=== PATIENT | female | born 1955 | race American Indian/Alaskan Native ===

== ENCOUNTER 2018-01-27 15:56 | Inpatient (IN) | payer OTHER ==
[~2018-01-27] VITALS: Ht 160 cm; Wt 83.3 kg
[~2018-01-27 15:56] MED LIST: ALLEGRA ALLERG180 MG PO; ALLEGRA60 MG PO; ASPIRIN EC81 MG PO; BACTRIM DS TAB1 EACH PO; BLOOD GLUCOSE1 EAC1 MISC; CYCLOBENZAPRINE10 MG PO; GUAIATUSSIN AC10 ML PO; IMODIUM A-D2 MG PO; INSULIN SYRING1 EA10 MISC; LANTUS100 UNITS/ SUB-Q; LIPITOR20 MG PO; METFORMIN HCL500 MG PO; NAPROSYN500 MG PO; NORCO 5-325 TA1 EACH PO; NORCO 7.5-3251 EACH PO; PEPCID20 MG PO; PROVENTIL HFA6.7 GM INH; SURESTEP PRO1 EA VI; TRAMADOL HCL50 MG PO; ULTRAM50 MG PO; VITAMIN D400 UNI2 PO; ZITHROMAX500 MG PO
[2018-01-27] MEDS ORDERED: LANTUS100 UNITS/ SUB-Q (16:17)
--- NOTE | 2018-01-27 19:35 | NUR ---
PT ARRIVED TO FLOOR VIA STRETCHER, SHE WAS TUCKED IN BY DAY MARY JANE.
--- NOTE | 2018-01-27 20:34 | NUR ---
ENTERED ROOM TO ASSESS PT, SHE DENIES PAIN AT THIS TIME. SHE HAS FAMILY IN THE ROOM. SHE STATES SHE IS HUNGRY, GAVE HER SF PUDDING AND ORDERED A SANDWICH BOX. DR SHEA ENTERED THE ROOM AND IS CHANGING THE DRESSING ON HER FOOT AT THIS TIME.
--- NOTE | 2018-01-27 22:11 | NUR ---
ADMINISTERED EVENING MEDICATIONS. PT HAS FAMILY IN THE ROOM WITH HER AT THIS TIME AND DENIES FURTHER NEEDS.
--- NOTE | 2018-01-27 22:32 | NUR ---
PT REQUESTED A SLEEP AID, CALLED DR CHAPPELL AND HE SAID HE WILL PLACE AN ORDER.
--- NOTE | 2018-01-27 22:55 | NUR ---
ADMINISTERED BENADRYL AND TYLENOL. PT COMPLAINED THAT HER RT FOOT HURT AND SHE FELT THE DRESSING WAS ON TOO TIGHT. TOOK ONE OF THE OUTER COBAN LAYERS OFF CAREFUL NOT TO AFFECT THE GAUZE DRESSING UNDERNEATH AND PUT IT BACK ON LOOSLY. SHE STATES THAT IT FEELS A LITTLE BETTER NOW. PT DENIES FURTHER NEEDS.
--- NOTE | 2018-01-28 00:10 | NUR ---
PT IS RESTING WITH EYES CLOSED, RESPIRATIONS ARE EVEN AND NONLABORED. CALL LIGHT IS WITHIN REACH. PT'S FAMILY MEMBER LEFT FOR A BIT AND WILL RETURN SOON.
--- NOTE | 2018-01-28 02:10 | NUR ---
PT IS RESTING WITH EYES CLOSED, RESPIRATIONS ARE EVEN AND NONLABORED. CALL LIGHT IS WITHIN REACH.
--- NOTE | 2018-01-28 04:06 | NUR ---
PT IS RESTING WITH EYES CLOSED, RESPIRATIONS ARE EVEN AND NONLABORED. CALL LIGHT IS WITHIN REACH.
--- NOTE | 2018-01-28 05:06 | NUR ---
PT WAS ADMITTED LAST NIGHT JUST AFTER SHIFT CHANGE. SHE HAS HAS MANY VISITORS THROUGH THE EVENING AND 1-2 FAMILY MEMBERS STAYED WITH HER THROUGH THE NIGHT. HE REQUESTED SOMETHING TO HELP HER SLEEP AND WAS GIVEN BENADRYL. SHE HAD TYLENOL FOR PAIN IN HER RT FOOT AFTER DR MENDOZA CHANGED THE DRESSING ON A DIABETIC FOOT ULCER ON THE BOTTOM OF HER FOOT. SHE REQUIRED 0.5 LNC THROUGH THE NIGHT. SHE IS ON TELE #8 AND HR IS IN NSR. SHE IS ON AN ADA DIET WITH A 1500 ML FLUID RESTRICTION. SHE WILL NEED A POST OP SHOE FOR AMBULATION TODAY.
--- NOTE | 2018-01-28 06:29 | NUR ---
PT IS RESTING WITH EYES CLOSED, RESPIRATIONS ARE EVEN AND NONLABORED ON RA.
--- NOTE | 2018-01-28 07:20 | NUR ---
REPORT RC'D FROM NURSING CENTER TUTOR NURSE. PT RESTING IN BED COMFORTABLY WITH EYES CLOSED, RESPIRATIONS EVEN AND UNLABORED. FAMILY MEMBERS AT BEDSIDE
--- NOTE | 2018-01-28 08:00 | NUR ---
PT C/O OF RIGHT FOOT PAIN, RATING 5/10, REQUESTING TYLENOL, MEDICATION GIVEN, WILL CONTINUE TO ASSESS. LEFT HAND IV SALINE LOCKED, FLUSHED WELL, SITE WNL, PT ANXIOUS WHEN FLUSHING BUT CAMLS WITH VERBAL FEEDBACK. LAST FSBS 152. PT C/O OF SOB, EXPIRATORY WHEEZE NOTED IN BILATERALL UPPER LOBES, BILATERAL LOWER LOBES NOTED TO BE COURSE, 1L O2 VIA NC, PT REPOSITIONED, ADVISED PT FOLLOW UP WITH DR. CHAPPELL FOR RECOMMENDATIONS. WILL CONTINUE TO MONITOR.
--- NOTE | 2018-01-28 09:00 | NUR ---
PT C/O OF NAUSEA, PRN ZOFRAN TO BE GIVEN. PT C/O OF WHEEZING, INFORMED PT ORDER FOR RT OBTAINED, DUO NEB TO BE GIVEN, PT VERBALIZED UNDERSTADING AND WAS AGREEABLE. WILL CONTINEUT O MONITOR.
--- NOTE | 2018-01-28 12:10 | NUR ---
PT REQUESTING MEDICATION FOR ANXIETY OR PAIN. DISSCUSSION WITH PT REGARDING HOME CARE MEASURES FOR RIGHT FOOT ULCER. PT STATES SHE TAKES IBUPROFEN, TYLENOL, AND USES ICE. DISSCUSSED IF PT IS HAVING FOOT PAIN OR ANXIETY. PT STATES SHE IS MORE ANXIOUS THAN IN PAIN. PT STATES SHE IS OVERWHELMED BY RECENT LOSS OF FAMILY MEMBERS, CURRENT ILLNESS, AND DX. PT BEGAN TO CRY AND STATES SHE FEELS GUILT OVER PAST DRUG USE, NOT TAKING BETER CARE OF HERSELF, AND IS WORRIED SHE WILL YOUNG DUE TO HER LIFE CHOICES. PT EASILY CALMED WITH VERBAL REASSURANCE. DISSCUSSED ACUTE AXIETY WITH DR. CHAPPELL, WILL AWAIT ORDERS. PT WILL REMAIN NPO AT THIS TIME FOR IMAGING. FSBS 152, INSULIN HELD AT THIS TIME UNTIL PT IS ABLE TO EAT.
--- NOTE | 2018-01-28 12:50 | NUR ---
PT ASSESSED FOR ANXIETY AND APPEARS RESTLESS, EMOTIONAL, AND STATES SHE IS FEELING OVERWHELMED BY HOSPITALIZATION. 0.5 MG OF ATIVAN GIVEN. NEW 20G IV STARTED IN LAC, TOLERATED WELL. PT TO HAVE MRI, CONSENT FILLED OUT, SIGNED, AND FAXED. RECENT LAB RESULTS GIVEN TO TECHNICAL ADMINISTRATIVE ASSISTANT. PT OFF UNIT AT THIS TIME FOR IMAGING.
--- NOTE | 2018-01-28 14:30 | NUR ---
P/C TO [facility]'S OFFICE REGARDING RIGHT FOOT MRI. SPOKE WITH MOTOR ANALYST ANGEL, INFORMED ANGEL OF UNSUCCESSFUL MRI DUE TO PT BEING UNABLE TO TO FOLLOW COMMANDS, MOVEMENTS, AND DROWSINESS. ANGEL STATES SHE WILL INFORM DR. SHEA REGARDING RESULTS, WILL AWAIT ORDERS.
--- NOTE | 2018-01-28 15:00 | NUR ---
PT ASSISTED TO RESTROOM. DOUGHNUTS AND ORANGE JUICE FOUND ON BEDSIDE TABLE. INFORMED PT THAT SHE IS ON AN ADA DIET WITH A 1600 ML FLUID RESTRICTION. ADVISED PT OF SUGAR INTAKE AND FLUID INTAKE WHILE IN HOSPITAL, ASKED PT TO AVOID OUTSIDE FOOD AT THIS TIME. FOOD AND FLUID REMOVED AND GIVEN TO FAMILY MEMBER. PT AND FAMILY MEMBER VERNALIZED AN UNDERSTANDING AND WERE AGREEABLE.
--- NOTE | 2018-01-28 17:39 | NUR ---
PT RESTING COMFORTABLY IN BED WITH EYES CLOSED, NO ACUTE DISTRESS NOTED, RESPIRATIONS EVEN AND UNLABORED. FAMILY AT BEDSIDE.
--- NOTE | 2018-01-28 18:38 | NUR ---
PT ON RA, LUNGS CLEAR IN UPPERS, BASES COURSE BUT IMPROVING, SOB, PRN DUO NEBS ADDED. PT ON TELE #8, SR, ECHO COMPLETED TODAY. 20G IV LAC INSERTED TODAY, SALINE LOCKED, WNL. IV LASIX X 3 GIVEN TODAY, URINE DILUTE, QS. PT SBA TO RESTROOM. RIGHT FOOT ULCER COVERED, DRESSING C/D/I, MRI UNSUCCESSFUL, DR. SHEA'S OFFICE NOTIFIED OF UNSUCCESSFUL MRI. PT GIVEN 1 MG ATIVAN FOR ACUTE ANXIETY, MUCH IMPROVED. PT ON ADA DIET WITH 1600 FLUID RESTRICTION, PT NON COMPLIANT WITH DIET, PT AND FAMILY AWARE TO NOT BRING IN OUTSIDE FOOD.
--- NOTE | 2018-01-28 19:05 | NUR ---
IN ROOM FOR REPORT, PT IS SLEEPING AND IS AT BEDSIDE. CALL LIGHT IS WITHIN REACH.
[2018-01-28] MEDS ORDERED: IBUPROFEN400 MG PO (19:27)
[2018-01-28] MEDS ORDERED: TYLENOL325 MG PO (19:28)
[2018-01-28] MEDS ORDERED: PROAIR HFA8.5 GM INH (19:29)
[2018-01-28] MEDS ORDERED: CIPRO500 MG PO (19:29)
--- NOTE | 2018-01-28 20:25 | EKG ---
[facility] [address] [facility] [place] [address] Signed Normal sinus rhythm Left axis deviation Anteroseptal infarct , age undetermined Abnormal ECG When compared with ECG of 20-AUG-2016 06:02, Inverted T waves have replaced nonspecific T wave abnormality in Lateral leads Confirmed by GISELLE CHAPPELL MD ([id number]) on 01/28/2018 8:25:27 PM Electronically Signed By: GISELLE CHAPPELL MD 01/28/18 2025 PATIENT NAME: JOSE G COX Electrocardiogram DATE OF : 59 PHYSICIAN: GISELLE CHAPPELL MD REPORT #: [id number] REPORT IS CONFIDENTIAL AND NOT TO BE RELEASED WITHOUT AUTHORIZATION
--- NOTE | 2018-01-28 21:42 | NUR ---
ASSESSED PT AND ADMINISTERED EVENING MEDICATIONS. PT STATES SHE IS ANXIOUS AND IS UPSET ABOUT A PERSONAL ISSUE. SHE WAS GIVEN 0.5MG ATIVAN AND TYLENOL FOR PAIN. SHE ALSO REQUESTED A SLEEP AID, SHE WAS GIVEN BENADRYL. SHE HAS CHICKEN NOODLE SOUP AT THE BEDSIDE AND DENIES NEEDS. CALL LIGHT IS WITHIN REACH.
--- NOTE | 2018-01-28 22:11 | NUR ---
PT CALLED TO USE RESTROOM, HER VISITORS ARE LEAVING AT THIS TIME. CALL LIGHT IS WITHIN REACH.
--- NOTE | 2018-01-29 00:14 | NUR ---
PT IS RESTING WITH EYES CLOSED, RESPIRATIONS ARE EVEN AND NONLABORED. CALL LIGHT IS WITHIN REACH.
--- NOTE | 2018-01-29 00:43 | NUR ---
HELPED PT TO RESTROOM AND BACK TO BED. SHE DENIES FURTHER NEEDS AT THIS TIME.
--- NOTE | 2018-01-29 02:09 | NUR ---
PT IS RESTING WITH EYES CLOSED, RESPIRATIONS ARE EVEN AND NONLABORED. CALL LIGHT IS WITHIN REACH.
--- NOTE | 2018-01-29 02:28 | NUR ---
CHANGED PT'S ATTENDS, SHE COMPLAINED THAT ROLLING CAUSED HER PAIN TO INCREASE. APPLIED ASPERCREME AND REPOSITIONED HER IN BED. SHE DENIES FURTHER NEEDS AT THIS TIME.
--- NOTE | 2018-01-29 03:11 | NUR ---
PT IS RESTING WITH EYES CLOSED, RESPIRATIONS ARE EVEN AND NONLABORED. CALL LIGHT IS WITHIN REACH.
--- NOTE | 2018-01-29 04:58 | NUR ---
PT IS RESTING WITH EYES CLOSED, RESPIRATIONS ARE EVEN AND NONLABORED. CALL LIGHT IS WITHIN REACH.
--- NOTE | 2018-01-29 05:11 | NUR ---
PT AMBULATES SBA WITH FWW, HER IV IS SL AND FLUSHES WELL. SHE RECEIVES LASIX BID. SHE DID NOT REQUIRE OXYGEN THROUGH THE NIGHT.ACCUCHECK AT BEDTIME WAS 129 REQUIRING NO INSULIN. SHE IS ON AN ADA DIET WITH A 1500 ML FLUID RESTRICTION. PT REQUIRED 0.5MG OF IV ATIVAN FOR ANXIETY AT 2118 WELL BENADRYL FOR SLEEP. RT FOOT DRESSING IS CDI.
--- NOTE | 2018-01-29 06:46 | NUR ---
HELPED PT TO THE RESTROOM AND SHE WAS GOING TO THE SCALE SHE BECAME DIZZY. THE STAFF WERE ABLE TO HOLD HER UP UNTIL SHE FELT BETTER. SHE THEN STEPPED ONTO THE SCALE AND WAS HELPED BACK TO BED. PT DENIES FURTHER NEEDS AT THIS TIME. CALL LIGHT IS WITHIN REACH.
--- NOTE | 2018-01-29 07:20 | NUR ---
REPORT RC'D FROM BEHAVIORAL SCIENCES DEPARTMENT CHAIR NURSE. PT RESTING IN BED COMFORTABLY WITH EYES CLOSED. RESPIRATIONS EVEN AND UNLABORED. NO ACUE DISTRESS NOTED.
--- NOTE | 2018-01-29 07:50 | NUR ---
PT C/O OF SOB, REPOSITIONED, HOB ELEVATED, AND LUNGS ASSESSED. EXPIRATORY WHEEZE NOTED IN BILATERAL UPPER LOBES, COURSE LUNG SOUNDS NOTED IN BILATERAL LOWER LOBES. PRN DUO NEB TO BE GIVEN. WILL CONTINUE TO MONITOR AND REASSESS.
--- NOTE | 2018-01-29 08:15 | NUR ---
DUO NEB TREATMENT GIVEN, PT STATES BREATHING IMPROVED, DENIES SOB AT THIS TIME. NO EXPIRATORY WHEEZE NOTED DURING ASCULTATION. PT A&O X3, PLEASANT, DENIES ACUTE ANXIETY. RESPIRATION RATE 16/MIN, EVEN AND UNLABORDED. LAC IV SITE SALINE LOCKED, PATENT. RIGHT FOOT DRESSING C/D/I, DENIES PAIN. FAMILY MEMBERS AT BEDSIDE. PT STATES, "I AM FEELING MUCH BETTER TODAY."
[2018-01-29] MEDS ORDERED: AUGMENTIN 875-1 EACH PO (09:56)
--- NOTE | 2018-01-29 09:57 | NUR ---
MED REC COMPLETE
--- NOTE | 2018-01-29 10:28 | NUR ---
DR SHEA CALLED BACK AND STATED TO FOLLOW UP WITH DALILA TOMORROW AND KEEP HER DRESSING CLEAN AND DRY. NO FOLLOW UP APPOINTMENT SCHEDULED AT THIS TIME WITH DR. SHEA.
--- NOTE | 2018-01-29 11:30 | NUR ---
PT RESTING IN BED COMFORTABLY, WAKES EASILY, NO ACUTE DISTRESS NOTED, NO COMPLAINTS AT THIS TIME. PT FSBS 196, INSULIN TO BE GIVEN. PT REPOSITIONED FOR COMFORT. CALL LIGHT WITHIN REACH. LUNCH AT BEDSIDE.
[2018-01-29] MEDS ORDERED: DOXYCYCLINE HY100 MG PO (12:41)
[2018-01-29] MEDS ORDERED: CARVEDILOL12.5 MG PO (12:41)
[2018-01-29] MEDS ORDERED: TORSEMIDE20 MG PO (12:42)
[2018-01-29] MEDS ORDERED: LANTUS100 UNITS/ SUB-Q (12:42)
--- NOTE | 2018-01-29 12:45 | NUR ---
PHONE CALL TO [facility], SPOKE WITH SCRIPT WORKER LAZARA RYDER SCHEDULE TO FOLLOW UP ON 01/30/18 @1PM. TRANSPORTATION SCHEDULED WITH [facility]. INFORMED PT OF APPT TIME AND SCHEDULED TRANSPORTTION, PT VERBALIZED AN UNDERSTANDING AND WAS AGREEABLE.
--- NOTE | 2018-01-29 13:29 | NUR ---
CONSULT FOR NUTRITION TRIGGERED FROM FOOT WOUND. PATIENT IS BEING DISCHARGED TODAY. SHE RECEIVES CARE AT [facility]. NO NUTRITION INTERVENTION DONE AT THIS TIME SINCE PATIENT GOING HOME.
--- NOTE | 2018-01-29 15:16 | NUR ---
Certified Heart Failure Nurse Notes: Date of echocardiogram - Results pending at time of patient interview Social support system: lives with spouse , who has health problems that patient assists with. Grandson, son. Reports that she is also caregiver to son with CP. Patient tearful during this education discussion and repeats that she feels very tired. Weight monitoring: Medline Scales given for home use and instructed on daily weight monitoring with teach back. Symptom management: Specific written recommendations to follow-up for ongoing management, and to address changes in weight or symptoms Transportation mode: patient states she does not have transportation Diet: since her health has been poor she relies on others. [employer] delivered meals . She does not buy table salt. Friends do bring in [employer] and Supers[employer] $1 meal for her. Instructed on reason to limit salt and hidden salt Smoking and substance abuse cessation: Encouraged patient to seek professional help and use community resources. She states she is very private and doesn't feel comfortable having others know what is going on. Advanced directive:not addressed at this initial visit Self-Management Motivation: she is concerned about her family and grandson Teaching materials given today: [facility] with Heart Failure book, Low Sodium Shopping list, Daily weight and symptom monitoring log, Enmotusline digital floor scales
--- NOTE | 2018-01-29 16:09 | NUR ---
PATIENT DISHCARGED AT 1415. FAMILY IN A MURO DUE TO LIMITED RIDE, CARE RIDE OFFERED, BUT DECLINED. PATIENT DECLINED TO CHANGE TO CLOTHING, NO CLOTHING AVAILBLE, PATIENT LEFT IN HOSPITAL GOWN. PATIENT UNWILLING TO WAIT FOR ADDITIONAL DISCHARGE INSTRUCTIONS, SCALE PROVIDED AT HOSPITAL FRONT DOOR PATIENT LEFT. RC'D P/C FROM PT'S SON STATING IV SITE STILL IN PLACE, OFFERED TO HAVE MEDICAL STAFF COME TO HOME ABD REMOVE, DECLINED, SON STATES "WE TOOK IT OUT." ADVISED TO KEEP FOLLOW UP APPT WITH PCP FOR 01/30/18 @1PM. WILL REQUEST RECORDS OF VISIT TO CONFIRM REMOVAL.
--- NOTE | 2018-01-30 17:18 | NUR ---
HEART FAILURE FOLLOW UP CALL #1- NO ANSWER. WENT DIRECTLY TO [facility]. LEWIS FOR PATIENT THAT I WILL ATTEMPT TO CALL HER AGAIN ON SATURDAY.
== END 2018-01-29 14:15 | disposition home or self-care (01) | DRG 292 ==
LOC: ED 15:56 → MS 18:37
PROVIDERS: ADMIT Internal Medicine
DX: I11.0 Hypertensive heart disease with heart failure (principal); F15.20 Other stimulant dependence, uncomplicated; I50.31 Acute diastolic (congestive) heart failure; E11.621 Type 2 diabetes mellitus with foot ulcer; L97.519 Non-pressure chronic ulcer of other part of right foot with unspecified severity; Z79.4 Long term (current) use of insulin; Z86.73 Personal history of transient ischemic attack (TIA), and cerebral infarction without residual deficits; F17.210 Nicotine dependence, cigarettes, uncomplicated; I25.10 Atherosclerotic heart disease of native coronary artery without angina pectoris; E11.40 Type 2 diabetes mellitus with diabetic neuropathy, unspecified
CPT/HCPCS: 36415; 71045; 73630; 73721; 80048; 80053; 83036; 83605; 83880; 84484; 85025; 85379; 85610; 93005; 93010; 93306; 94640; 94667; 94668; 96374; 96375; 99285; J1650; J1815; J2060; J2405

== ENCOUNTER 2018-02-10 03:42 | Emergency (ER) | payer OTHER ==
[~2018-02-10] VITALS: Ht 160 cm; Wt 82.5 kg
[~2018-02-10 03:42] MED LIST changes: +AUGMENTIN 875-1 EACH PO; +CARVEDILOL12.5 MG PO; +CIPRO500 MG PO; +DOXYCYCLINE HY100 MG PO; +IBUPROFEN400 MG PO; +PROAIR HFA8.5 GM INH; +TORSEMIDE20 MG PO; +TYLENOL325 MG PO; +XANAX0.25 MG PO
--- NOTE | 2018-02-10 11:45 | EKG ---
[facility] [address] [facility] [place] [address] Signed Normal sinus rhythm Left axis deviation Septal infarct (cited on or before 27-JAN-2018) T wave abnormality, consider lateral ischemia Abnormal ECG When compared with ECG of 31-JAN-2018 09:58, No significant change was found Confirmed by GISELLE CHAPPELL MD ([id number]) on 02/10/2018 11:45:23 AM Electronically Signed By: GISELLE CHAPPELL MD 02/10/18 1145 PATIENT NAME: JOSE G COX Electrocardiogram DATE OF : 59 PHYSICIAN: GISELLE CHAPPELL MD REPORT #: [id number] REPORT IS CONFIDENTIAL AND NOT TO BE RELEASED WITHOUT AUTHORIZATION
== END 2018-02-10 05:02 | disposition home or self-care (01) ==
LOC: ED 03:42
DX: F13.239 Sedative, hypnotic or anxiolytic dependence with withdrawal, unspecified (principal); G47.00 Insomnia, unspecified; E11.40 Type 2 diabetes mellitus with diabetic neuropathy, unspecified; Z87.891 Personal history of nicotine dependence; Z86.73 Personal history of transient ischemic attack (TIA), and cerebral infarction without residual deficits; Z88.8 Allergy status to other drugs, medicaments and biological substances; Z79.82 Long term (current) use of aspirin; Z79.4 Long term (current) use of insulin
CPT/HCPCS: 93005; 93010; 99283

== ENCOUNTER 2018-03-08 21:50 | Observation (INO) | payer OTHER ==
[~2018-03-08] VITALS: Ht 160 cm; Wt 78.4 kg
--- OUTSIDE RECORDS SUMMARY | ~2018-03-08 | XMS | Clinical Summary ---
Demographics + + + | Address | [address] | | | [place] [address] | + + + | Home Phone | | + + + | Preferred Language | Unknown | + + + | Marital Status | | + + + | Baptist Affiliation | 1041 | + + + | Race | Unknown | + + + | Ethnic Group | Unknown | + + + Author + + + | Author | [facility] | | | and [place] | + + + | Organization | [facility] | | | and [place] | + + + | Address | Unknown | + + + | Phone | Unavailable | + + + Support + + + + + | Name | Relationship | Address | Phone | + + + + + | ABBEY COX ECON | Unknown | | + + + + + | Sachin Dwyer | ECON | [address] | | | | | [place] | | + + + + + Care Team Providers + +------+ + | Care Marketing Communication Manager Name | Role | Phone | + +------+ + | Bernadette Armendariz PA-C | PP | | + +------+ + Allergies + + + + + + | Active Allergy | Reactions | Severity | Noted | Comments | | | | | Date | | + + + + + + | Lisinopril | Other (See Comments) | | 02/18/20 | Dizziness | | | | | 18 | | + + + + + + | Quinine | Other (See Comments) | | 02/18/20 | hallucinations | | | | | 18 | | + + + + + + Current Medications + + +--------+---------+------+------+-------+ | Prescription | Sig. | Disp. | Refills | Star | End | Statu | | | | | | t | Date | s | | | | | | Date | | | + + +--------+---------+------+------+-------+ | insulin glargine | Inject 25 Units | | | | | Activ | | (LANTUS) 100 | under the skin | | | | | e | | units/mL injection | nightly. | | | | | | | (vial) | | | | | | | + + +--------+---------+------+------+-------+ | torsemide | Take 20 mg by mouth | | | 01/19 | | Activ | | (DEMADEX) 20 mg | Daily. | | | 08/10 | | e | | tablet | | | | 18 | | | + + +--------+---------+------+------+-------+ | carvedilol (COREG) | Take 6.25 mg by | | | 08/0 | | Activ | | 6.25 mg tablet | mouth 2 times daily. | | | 03/10 | | e | | | | | | 18 | | | + + +--------+---------+------+------+-------+ | acetaminophen | Take 650 mg by mouth | | | | | Activ | | (TYLENOL) 325 mg | every 4 hours as | | | | | e | | tablet | needed for Pain. | | | | | | + + +--------+---------+------+------+-------+ | doxycycline | Take 50 mg by mouth | | | | | Activ | | (MONODOX) 50 MG | 2 times daily. | | | | | e | | capsule | | | | | | | + + +--------+---------+------+------+-------+ | hydrOXYzine | Take 25 mg by mouth | | | | | Activ | | pamoate (VISTARIL) | 3 times daily as | | | | | e | | 25 mg capsule | needed for Itching. | | | | | | + + +--------+---------+------+------+-------+ | melatonin 1 mg | Take 1 mg by mouth | | | | | Activ | | TABS | nightly as needed. | | | | | e | + + +--------+---------+------+------+-------+ | atorvaSTATin | Take 1 tablet by | 90 | 1 | 08/1 | | Activ | | (LIPITOR) 10 mg | mouth nightly. | tablet | | 3/20 | | e | | tablet | | | | 18 | | | + + +--------+---------+------+------+-------+ | lisinopril | Take 1 tablet by | 90 | 1 | 08/1 | | Activ | | (PRINIVIL, ZESTRIL) | mouth Daily. | tablet | | 3/20 | | e | | 10 mg tablet | | | | 18 | | | + + +--------+---------+------+------+-------+ | aspirin 81 MG | Take 81 mg by mouth | | | | 08/1 | Disco | | tablet | Daily. | | | | 3/20 | ntinu | | | | | | | 18 | ed | + + +--------+---------+------+------+-------+ | lisinopril | Take 1 tablet by | 90 | 1 | 08/1 | 08/1 | Disco | | (PRINIVIL, ZESTRIL) | mouth Daily. | tablet | | 3/20 | 3/20 | ntinu | | 10 mg tablet | | | | 18 | 18 | ed | + + +--------+---------+------+------+-------+ | atorvaSTATin | Take 1 tablet by | 90 | 1 | 02/19 | 02/19 | Disco | | (LIPITOR) 10 mg | mouth nightly. | tablet | | 10/08 | 10/08 | ntinu | | tablet | | | | | 18 | ed | + + +--------+---------+------+------+-------+ Active Problems + + + | Problem | Noted Date | + + + | CHF (congestive heart failure) (HCC) | | + + + + + | Overview: Echocardiogram done at [facility] on 01/28/18 | | shows overall left ventricular systolic function is | | mild-moderately impaired, with mild global hypokinesis and an EF | | between 40-45%. Pseudonormal LV diastolic filling pattern, | | consistent with elevated LA pressure and moderate | | dysfunction(Grade II). The right ventricle is normal in size and | | function. Mild mitral and tricuspid regurgitation are present, | | There is mild pulmonary hypertension. The right ventricular | | systolic pressure (pulmonary artery systolic pressure), as | | measured by doppler is 44-49 mmHg. | + + + +---+ | Type 2 diabetes mellitus (HCC) | | + +---+ | Asthma | | + +---+ | Heart disease | | + +---+ | Myocardial infarction (HCC) | | + +---+ | CVA (cerebral vascular accident) ([facility]) | | + +---+ | Hypertension | | + +---+ Encounters +--------+ + + + + | Date | Type | Specialty | Care Team | Description | +--------+ + + + + | 03/03/ | Office | | Сергей Vasquez | Congestive heart | | 2018 | Visit | | [place] | failure, unspecified | | | | | | HF chronicity, | | | | | | unspecified heart | | | | | | failure type (HCC) | | | | | | (Primary Dx); | | | | | | Myocardial | | | | | | infarction, | | | | | | unspecified [place] type, | | | | | | [...] whether | | | | | | [place] or | | | | | | transplanted heart | +--------+ + + + + | 02/17/ | Abstract | | Сергей Vasquez | Congestive heart | | 2017 | | | MD [place] | failure, unspecified | | | | | | HF chronicity, | | | | | | unspecified heart | | | | | | failure type (HCC) | +--------+ + + + + from Last 3 Months Social History + +-------+ +--------+ + | [...] on file | | + + + Last Filed Vital Signs + + + + | Vital Sign | Reading | Time Taken | + + + + | Blood Pressure | 144/78 | 03/03/2018 1032 PDT | + + + + | Pulse | 65 | 03/03/20181031 PDT | + + + + | Temperature | - | - | + + + + | Respiratory Rate | 18 | 03/03/20181031 PDT | + + + + | Oxygen Saturation | - | - | + + + + | Inhaled Oxygen | - | - | | Concentration | | | + + + + | Weight | 78.2 kg (172 lb 6.4 | 03/03/20181031 PDT | | | oz) | | + + + + | Height | 160 cm (5' 3") | 03/03/2018 1032 PDT | + + + + | Body Mass Index | 30.54 | 03/03/2018 1032 PDT | + + + + Plan of Treatment +--------+ + + + + | Date | Type | Specialty | Care Team | Description | +--------+ + + + + | 03/11/ | Surgery | | Сергей Vasquez | [facility] | | 2017 | | | MD [place] [address] | | | | | | [address] | | | | | | [place] [address] | | | | | | [phone] | | | | | | | | +--------+ + + + + | 03/11/ | Procedure | | | | | 2017 | Pass | | | | +--------+ + + + + | 03/11/ | Hospital | | Сергей Vasquez | | | 2017 | Encounter | | MD [address] | | | | | | [address] [place] | | | | | | [place] [address] | | | | | | [phone] | | | | | | | | +--------+ + + + + | 05/13/ | Office | | Сергей Vasquez | | | 2017 | Visit | | MD [address] | | | | | | [address] [place] | | | | | | [place] [address] | | | | | | [phone] | | | | | | | | +--------+ + + + + + + + + + | Health Maintenance | Due Date | Last Done | Comments | + + + + + | Hepatitis C | | | | | Screening | 7 | | | + + + + + | Diabetic Eye Exam | | | | | (Bi-Annually) | 5 | | | + + + + + | Diabetic Foot Exam | | | | | | 5 | | | + + + + + | Hemoglobin A1c Q3 | | | | | Months | 5 | | | + + + + + | Vaccine: | | | | | Dtap/Tdap/Td (1 - | 6 | | | | Tdap) | | | | + + + + + | Vaccine: | | | | | Pneumococcal 19-64 | 6 | | | | (PPSV23 only) Medium | | | | | Risk (1 of 1 - | | | | | PPSV23) | | | | + + + + + | Cervical Cancer | | | | | Screening (Pap) | 7 | | | + + + + + | BREAST CANCER | | | | | SCREENING (MAMM Q2 | 7 | | | | YEARS 50-74) | | | | + + + + + | Colorectal Cancer | | | | | Screening | 7 | | | | (Colonoscopy) | | | | + + + + + | Statin Therapy | | | | | (optimal intensity) | 8 | | | + + + + + | Vaccine: Influenza | | | | | (#1) | 8 | | | + + + + + Procedures + +--------+ + + + | Procedure Name | Priori | Date/Time | Associated Diagnosis | Comments | | | ty | | | | + +--------+ + + + | ECG 12 LEAD | Routin | 03/03/2018 | Congestive heart | Results for this | | | e | 1048 PDT | failure, unspecified | procedure are in the | | | | | HF chronicity, | results section. | | | | | unspecified heart | | | | | | failure type (HCC) | | + +--------+ + + + | CBC WITH | Routin | 01/31/2018 | | Results for this | | DIFFERENTIAL | e | 0000 PDT | | procedure are in the | | | | | | results section. | + +--------+ + + + | COMPREHENSIVE | Routin | 01/31/2018 | | Results for this | | METABOLIC PANEL | e | 0000 PDT | | procedure are in the | | | | | | results section. | + +--------+ + + + | EXTERNAL LAB: | Routin | 01/31/2018 | | Results for this | | GLUCOSE | e | 0000 PDT | | procedure are in the | | | | | | results section. | + +--------+ + + + | EXTERNAL LAB: | Routin | 01/31/2018 | | Results for this | | TROPONIN T | e | 0000 PDT | | procedure are in the | | | | | | results section. | + +--------+ + + + | EXTERNAL LAB: ALT | Routin | 01/31/2018 | | Results for this | | | e | 0000 PDT | | procedure are in the | | | | | | results section. | + +--------+ + + + | EXTERNAL LAB: AST | Routin | 01/31/2018 | | Results for this | | | e | 0000 PDT | | procedure are in the | | | | | | results section. | + +--------+ + + + | EXTERNAL LAB: | Routin | 01/31/2018 | | Results for this | | ALKALINE PHOSPHATASE | e | 0000 PDT | | procedure are in the | | | | | | results section. | + +--------+ + + + | EXTERNAL LAB: | Routin | 01/31/2018 | | Results for this | | BILIRUBIN, TOTAL | e | 0000 PDT | | procedure are in the | | | | | | results section. | + +--------+ + + + | EXTERNAL LAB: | Routin | 01/31/2018 | | Results for this | | ALBUMIN | e | 0000 PDT | | procedure are in the | | | | | | results section. | + +--------+ + + + | EXTERNAL LAB: | Routin | 01/31/2018 | | Results for this | | PROTEIN, TOTAL | e | 0000 PDT | | procedure are in the | | | | | | results section. | + +--------+ + + + | EXTERNAL LAB: | Routin | 01/31/2018 | | Results for this | | CALCIUM | e | 0000 PDT | | procedure are in the | | | | | | results section. | + +--------+ + + + | EXTERNAL LAB: REILLY | Routin | 01/31/2018 | | Results for this | | | e | 0000 PDT | | procedure are in the | | | | | | results section. | + +--------+ + + + | EXTERNAL LAB: Anny PENA | Routin | 01/31/2018 | | Results for this | | NATURETIC PEPTIDE | e | 0000 PDT | | procedure are in the | | | | | | results section. | + +--------+ + + + | EXTERNAL LAB: EGFR | Routin | 01/31/2018 | | Results for this | | | e | 0000 PDT | | procedure are in the | | | | | | results section. | + +--------+ + + + | CBC WITH | Routin | 01/27/2018 | | Results for this | | DIFFERENTIAL | e | 0000 PDT | | procedure are in the | | | | | | results section. | + +--------+ + + + | COMPREHENSIVE | Routin | 01/27/2018 | | Results for this | | METABOLIC PANEL | e | 0000 PDT | | procedure are in the | | | | | | results section. | + +--------+ + + + | EXTERNAL LAB: | Routin | 01/27/2018 | | Results for this | | GLUCOSE | e | 0000 PDT | | procedure are in the | | | | | | results section. | + +--------+ + + + | EXTERNAL LAB: | Routin | 01/27/2018 | | Results for this | | TROPONIN T | e | 0000 PDT | | procedure are in the | | | | | | results section. | + +--------+ + + + | EXTERNAL LAB: ALT | Routin | 01/27/2018 | | Results for this | | | e | 0000 PDT | | procedure are in the | | | | | | results section. | + +--------+ + + + | EXTERNAL LAB: AST | Routin | 01/27/2018 | | Results for this | | | e | 0000 PDT | | procedure are in the | | | | | | results section. | + +--------+ + + + | EXTERNAL LAB: | Routin | 01/27/2018 | | Results for this | | ALKALINE PHOSPHATASE | e | 0000 PDT | | procedure are in the | | | | | | results section. | + +--------+ + + + | EXTERNAL LAB: | Routin | 01/27/2018 | | Results for this | | BILIRUBIN, TOTAL | e | 0000 PDT | | procedure are in the | | | | | | results section. | + +--------+ + + + | EXTERNAL LAB: | Routin | 01/27/2018 | | Results for this | | ALBUMIN | e | 0000 PDT | | procedure are in the | | | | | | results section. | + +--------+ + + + | EXTERNAL LAB: | Routin | 01/27/2018 | | Results for this | | PROTEIN, TOTAL | e | 0000 PDT | | procedure are in the | | | | | | results section. | + +--------+ + + + | EXTERNAL LAB: | Routin | 01/27/2018 | | Results for this | | CALCIUM | e | 0000 PDT | | procedure are in the | | | | | | results section. | + +--------+ + + + | EXTERNAL LAB: CBC | Routin | 01/27/2018 | | Results for this | | | e | 0000 PDT | | procedure are in the | | | | | | results section. | + +--------+ + + + | EXTERNAL LAB: EGFR | Routin | 01/27/2018 | | Results for this | | | e | 0000 PDT | | procedure are in the | | | | | | results section. | + +--------+ + + + from Last 3 Months Results ECG 12 lead (03/03/2018 1048) + + + + + | Component | Value | Ref Range | Performed At | + + + + + | VENTRICULAR RATE EKG | 65 | BPM | [facility] | + + + + + | ATRIAL RATE | 65 | BPM | [facility] | + + + + + | P-R INTERVAL | 178 | ms | [facility] | + + + + + | QRS DURATION | 86 | ms | [facility] | + + + + + | Q-T INTERVAL | 418 | ms | [facility] | + + + + + | Q-T INTERVAL | 434 | ms | [facility] | | (CORRECTED) | | | | + + + + + | P WAVE AXIS | 40 | degrees | [facility] | + + + + + | QRS AXIS | -44 | degrees | [facility] | + + + + + | T AXIS | 107 | degrees | [facility] | + + + + + | INTERPRETATION TEXT | Normal sinus rhythmLeft | | [facility] | | | axis deviationT wave | | | | | abnormality, consider | | | | | lateral ischemiaAbnormal | | | | | ECGNo previous ECGs | | | | | availableConfirmed by | | | | | DON VASQUEZ MD | | | | | ([id number]) on 03/04/2018 | | | | | 7:18:13 AM | | | + + + + + + + + | Narrative | Performed At | + + + | | | + + + + +---------+ + + | Performing | Address | City/State/Zipcode | Phone Number | | Organization | | | | + +---------+ + + | [facility] | | | | + +---------+ + + External Lab: Glucose (01/31/2018)Only the most recent of 2 results within the time period is included. + +-------+ + + | Component | Value | Ref Range | Performed At | + +-------+ + + | Glucose, External | 149 | | | + +-------+ + + External Lab: Troponin T (01/31/2018)Only the most recent of 2 results within the time calixto od is included. + +--------+ + + | Component | Value | Ref Range | Performed At | + +--------+ + + | Troponin T, External | <0.010 | | | + +--------+ + + External Lab: ALT (01/31/2018)Only the most recent of 2 results within the time period is i ncluded. + +-------+ + + | Component | Value | Ref Range | Performed At | + +-------+ + + | ALT, External | 9 | | | + +-------+ + + External Lab: AST (01/31/2018)Only the most recent of 2 results within the time period is i ncluded. + +-------+ + + | Component | Value | Ref Range | Performed At | + +-------+ + + | AST, External | 16 | | | + +-------+ + + External Lab: Alkaline Phosphatase (01/31/2018)Only the most recent of 2 results within the time period is included. + +-------+ + + | Component | Value | Ref Range | Performed At | + +-------+ + + | ALP, External | 99 | | | + +-------+ + + External Lab: Bilirubin, Total (01/31/2018)Only the most recent of 2 results within the juan f e period is included. + +-------+ + + | Component | Value | Ref Range | Performed At | + +-------+ + + | Bilirubin, Total, | 0.3 | | | | External | | | | + +-------+ + + External Lab: Albumin (01/31/2018)Only the most recent of 2 results within the time period is included. + +-------+ + + | Component | Value | Ref Range | Performed At | + +-------+ + + | Albumin, External | 2.6 | | | + +-------+ + + External Lab: Protein, Total (01/31/2018)Only the most recent of 2 results within the time period is included. + +-------+ + + | Component | Value | Ref Range | Performed At | + +-------+ + + | Protein, Total, | 7.5 | | | | External | | | | + +-------+ + + External Lab: Calcium (01/31/2018)Only the most recent of 2 results within the time period is included. + +-------+ + + | Component | Value | Ref Range | Performed At | + +-------+ + + | Calcium, External | 8.5 | | | + +-------+ + + External Lab: REILLY (01/31/2018)Only the most recent of 2 results within the time period is i ncluded. + +-------+ + + | Component | Value | Ref Range | Performed At | + +-------+ + + | Neutrophils %, | 64.5 | | | | External | | | | + +-------+ + + | Lymphocytes %, | 27.1 | | | | External | | | | + +-------+ + + | Monocytes %, | 4.8 | | | | External | | | | + +-------+ + + | Eosinophils %, | 3.3 | | | | External | | | | + +-------+ + + | RBC, External | 4.35 | | | + +-------+ + + | MCV, External | 81 | | | + +-------+ + + | RDW, External | 14.1 | | | + +-------+ + + External Lab: B Type Naturetic Peptide (01/31/2018) + +-------+ + + | Component | Value | Ref Range | Performed At | + +-------+ + + | B-Type Naturetic | 1,530 | | | | Peptide, External | | | | + +-------+ + + + + | Specimen | + + | Blood | + + External Lab: eGFR (01/31/2018)Only the most recent of 2 results within the time period is included. + +-------+ + + | Component | Value | Ref Range | Performed At | + +-------+ + + | eGFR, External | 46 | | | + +-------+ + + + + | Specimen | + + | Blood | + + CBC with Differential (01/31/2018)Only the most recent of 2 results within the time period is included. + +-------+ + + | Component | Value | Ref Range | Performed At | + +-------+ + + | MCH | 26.0 | 26.0 - 33.0 pg | | + +-------+ + + | MCHC | 33.0 | 30.0 - 36.0 % | | + +-------+ + + | BASOPHILS % | 0.3 | 1.0 % | | + +-------+ + + + + | Specimen | + + | Blood | + + Comprehensive Metabolic Panel (01/31/2018)Only the most recent of 2 results within the time period is included. + +-------+ + + | Component | Value | Ref Range | Performed At | + +-------+ + + | ANION GAP | 11 | mmol/L | | + +-------+ + + | Albumin/Globulin | 0.5 | | | | Ratio | | | | + +-------+ + + | Bun/Creatinine | 24.4 | | | + +-------+ + + | Globulin | 4.9 | | | + +-------+ + + + + | Specimen | + + | Blood | + + from Last 3 Months Insurance + +--------+ +--------+ +---------+ | Payer | Benefi | Subscriber | Type | Phone | Address | | | t Plan | ID | | | | | | / | | | | | | | Group | | | | | + +--------+ +--------+ +---------+ | [employer] | [employer] | [id number] | Medica | +- | | | MEDICAID HMO | HEALTH | | id | 9821 | | | | [place] | | | | | | | [place] | | | | | + +--------+ +--------+ +---------+ + +--------+ +--------+ + + | Guarantor Name | Accoun | Relation to | Date | Phone | Billing Address | | | t Type | Patient | of | | | | | | | | | | + +--------+ +--------+ + + | MARIA INES COX | Person | Self [birth year] | Home: | [address] | | | christopher/Kyle | | 1955 | [phone] [place] [address] | | | jeni | | | [phone] | | + +--------+ +--------+ + +
--- OUTSIDE RECORDS SUMMARY | ~2018-03-08 | XMS | Encounter Summary ---
Demographics + + + | Address | [address] | | | [place] [address] | + + + | Home Phone | | + + + | Preferred Language | Unknown | + + + | Marital Status | | + + + | Mormonism Affiliation | 1041 | + + + | Race | Unknown | + + + | Ethnic Group | Unknown | + + + Author + + + | Author | [facility] | | | and [place] | + + + | Organization | [facility] | | | and [place] [...] + | Sachin Dwyer | ECON | [address] | | | | | [place] | | + + + + + Care Team Providers + +------+ + | Care Director Inbound Sales Name | Role | Phone | + [...] | | | | (congestive | PA-C [address] | [address] | | | | | heart | [place] | [place], | | | | | failure) | WAY | [place] | | | | | (HCC) | [place], | [address] | | | | | Procedures | [place] [address] | Phone: | | | | | ZIPPER REPAIRER 02/11 > | Phone: | [phone] | | | | | PENDING DOS | [phone] | Fax: | | | | | | Fax: | [phone] | | | | | | [phone] | | +--------+--------+ + + + + Encounter Details +--------+---------+ + + + | Date | Type | Department | Care Team | Description | +--------+---------+ + + + | 03/03/ | Office | [facility] | Сергей Vasquez | Congestive heart | | 2018 | Visit | CARDIOLOGY [address] | MD [place] [address] | failure, unspecified | | | | [place], | [address] [place] | HF chronicity, | | | | [place] [address] | [place] [address] | unspecified heart | | | | [phone] | [phone] | failure type (HCC) | | | | | | (Primary Dx); | | | | | | Myocardial | | | | | | infarction, | | | | | | unspecified ID type, | | | | | | [...] whether | | | | | | [place] or | | | | | | [...] hospital line at and ask for nursing records supervisor t o let them know you [...] 1.0 % Final I reviewed records from [facility] for hospitalization,including H&P, Discharge [place] and [...] made to ensure accuracy; however, inadvertent computerized shredded filler machine wrapper layer errors may be pre sent. Electronically signed by: Kyler Vasquez MD [facility] 03/03/2018 in this encounter Plan of Treatment +--------+ + + + + | Date | Type | Specialty | Care Team | Description | +--------+ + + + + | 03/11/ | Surgery | Radiology | Сергей Vasquez | [facility] | | 2017 | | | MD [address] | | | | | | [address] [place] | | | | | | [place] [address] | | | | | | [phone] | | | | | | | | +--------+ + + + + | 03/11/ | Procedure | Radiology | | | | 2017 | Pass | | | | +--------+ + + + + | 03/11/ | Hospital | Radiology | Сергей Vasquez | | | 2017 | Encounter | | MD [place] [address] | | | | | | [address] [place] | | | | | | [place] [address] | | | | | | [phone] | | | | | | | | +--------+ + + + + | 05/13/ | Office | Cardiology | Сергей Vasquez | | | 2017 | Visit | | MD [place] [address] | | | | | | [address] [facility] | | | | | | [place] [address] | | | | | | [phone] | | | | | | | | +--------+ + + + + + +--------+ + [...] unspecified whether | | | | | [place] or | | | | | transplanted [...] unspecified whether | | | | | [place] or | | | | | transplanted [...] unspecified whether | | | | | [place] or | | | | | transplanted [...] VASQUEZ MD | | | | | ([id number]) on 03/04/2018 | | | | | [...] | + + | Myocardial infarction, unspecified ID type, unspecified artery (HCC) | + + | Cerebrovascular accident (CVA), unspecified mechanism (HCC) | + + | Hypertension, unspecified type | + + | Heart disease | + + | Heart disease, unspecified | + + | Tobacco use disorder | + + | Coronary artery disease, angina presence unspecified, unspecified vessel or lesion type, | | unspecified whether [place] or transplanted heart | + +
--- OUTSIDE RECORDS SUMMARY | ~2018-03-08 | XMS | Encounter Summary ---
Demographics + + + | Address | [address] | | | [place] [address] | + + + | Home Phone | | + + + | Preferred Language | Unknown | + + + | Marital Status | | + + + | Jewish Affiliation | 1041 | + + + | Race | Unknown | + + + | Ethnic Group | Unknown | + + + Author + + + | Author | [facility] | | | and [place]nie[place] | + + + | Organization | [facility] | | | and [...] + | Sachin Dwyer | ECON | [id number] | | | | | [place] | | + + + + + Care Team Providers + +------+ + | Care Nurse Substance Abuse Name | Role | Phone | + [...] | failure, unspecified | | | | [address], | [address] [place] | HF chronicity, | | | | [place] [address] | [place] [address] | unspecified heart | | | | [phone] | [phone] | failure type (HCC) | | | [...] as of this encounter Plan of Treatment +--------+ + + + + | Date | Type | Specialty | Care Team | Description | +--------+ + + + + | 03/11/ | Surgery | Radiology | Сергей Gaitan | [facility] | | 2017 | | | MD [place] [address] | | | | | | [address] | | | | | | [place] [address] | | | | | | [phone] | | | | | | | | +--------+ + + + + | 03/11/ | Procedure | Radiology | | | | 2017 | Pass | | | | +--------+ + + + + | 03/11/ | Hospital | Radiology | Сергей Gaitan | | | 2017 | Encounter | | MD [address] | | | | | | [address] [place] | | | | | | [place] [address] | | | | | | [phone] | | | | | | | | +--------+ + + + + | 05/13/ | Office | Cardiology | Сергей Gaitan | | | 2017 | Visit | | MD [address] | | | | | | [address] [place] | | | | | | [place] [address] | | | | | | [phone] | | | | | | | | +--------+ + + + + as of this encounter [...]
--- OUTSIDE RECORDS SUMMARY | ~2018-03-08 | XMS | Encounter Summary ---
Demographics + + + | Address | [address] | | | [place] [address] | + + + | Home Phone | | + + + | Preferred Language | Unknown | + + + | Marital Status | | + + + | Latter-Day Affiliation | 1041 | + + + | Race | Unknown | + + + | Ethnic Group | Unknown | + + + Author + + + | Author | [facility] | | | and [place] | + + + | Organization | [facility] | | | and [place] [...] + | Sachin Dwyer | ECON | [address] [address] | | | | | [place] | | + + + + + Care Team Providers + +------+ + | Care Cutter Brake Lining Name | Role | Phone | + [...] | failure, unspecified | | | | [address] [place], | [address] [place] | HF chronicity, | | | | [place] [address] | [place] [address] | unspecified heart | | | | [phone] | [phone] | failure type (HCC) | | | [...] | Radiology | Сергей Gaitan | [facility] | | 2017 | | | MD [place] [address] | | | | | | [address] | | | | | | [place] [address] | | | | | | [phone] | | | | | | | | +--------+ + + + + | 03/11/ | Procedure | Radiology | | | | 2017 | Pass | | | | +--------+ + + + + | 03/11/ | Hospital | Radiology | Сергей Gaitan | | | 2017 | Encounter | | MD [address] | | | | | | [address] [place] | | | | | | [place] [address] | | | | | | [phone] | | | | | | | | +--------+ + + + + | 05/13/ | Office | Cardiology | Сергей Gaitan | | | 2017 | Visit | | MD [address] | | | | | | [address] [place] | | | | | | [place] [address] | | | | | | [phone] | | | | | | | [...]
--- OUTSIDE RECORDS SUMMARY | ~2018-03-08 | XMS | Clinical Summary ---
Demographics + + + | Address | [address] | | | [place] [address] | + + + | Home Phone | | + + + | Preferred Language | Unknown | + + + | Marital Status | | + + + | Quaker Affiliation | Unknown | + + + [...] [place] | | | | | [address] | | + + + + + Care Team Providers + +------+ + | Care Change Management Manager Name | Role | Phone | + +------+ + PP | Unavailable | + +------+ + Source Comments CHELY is fully live on both [facility] and [facility] InPatient.[facility] Allergies Not on File Current Medications Not [...]
--- OUTSIDE RECORDS SUMMARY | ~2018-03-08 | XMS | Clinical Summary ---
Demographics + + + | Address | [address] | | | [place] [address] | + + + | Home Phone [...] [address] | | | | | [address] | | + + + + + Care Team Providers + +------+ + | Care Combat Systems Officer Name | Role | Phone | + +------+ + PP | Unavailable | + +------+ + Source Comments CHELY is fully live on both [facility] and [facility] Allergies Not on File Current Medications Not [...]
--- OUTSIDE RECORDS SUMMARY | ~2018-03-08 | XMS | Clinical Summary ---
Demographics + + + | Address | [address] | | | [place] [address] | + + + | Home Phone | | + + + | Preferred Language | Unknown | + + + | Marital Status | | + + + | Mu-Ism Affiliation | 1041 | + + + | Race | Unknown | + + + | Ethnic Group | Unknown | + + + Author + + + | Author | [facility] | | | and [place] | + + + | Organization | [facility] [...] + | Sachin Dwyer | ECON | [address] [address] | | | | | [place] | | + + + + + Care Team Providers + +------+ + | Care Independent Distributor Name | Role | Phone | + [...] + + | Overview: Echocardiogram done at [facility] on 01/28/18 | | shows overall [...] | CVA (cerebral vascular accident) ([facility]) | | + +---+ | Hypertension [...] | | | | | | unspecified [place] type, | | | | | | [...] whether | | | | | | apache or | | | | | | [...] | Surgery | | Сергей Vasquez | [facility] | | 2017 | | | MD [place] [address] | | | | | | [address] | | | | | | [place] [address] | | | | | | [phone] | | | | | | | | +--------+ + + + + | 03/11/ | Procedure | | | | | 2017 | Pass | | | | +--------+ + + + + | 03/11/ | Hospital | | Сергей Vasquez | | | 2017 | Encounter | | MD [address] | | | | | | [address] [place] | | | | | | [place] [address] | | | | | | [phone] | | | | | | | | +--------+ + + + + | 05/13/ | Office | | Сергей Vasquez | | | 2017 | Visit | | MD [address] | | | | | | [address] [place] | | | | | | [place] [address] | | | | | | [phone] | | | | | | | [...] VASQUEZ MD | | | | | ([id number]) on 03/04/2018 | | | | | [...] | [employer] | MODA | [id number] | [employer] | +- | | | [...] | Self | [birth year] | Home: | [address] | | | [place] | | 1955 | [phone] | [place] [address] | | | jeni | | | [phone] | | + +--------+ +--------+ + +
--- OUTSIDE RECORDS SUMMARY | ~2018-03-08 | XMS | Encounter Summary ---
Demographics + + + | Address | [address] | | | [place] [address] | + + + | Home Phone | | + + + | Preferred Language | Unknown | + + + | Marital Status | | + + + | Moravian Affiliation | 1041 | + + + | Race | Unknown | + + + | Ethnic Group | Unknown | + + + Author + + + | Author | [facility] | | | and [place] | + + + | Organization | [facility] | | | and [place] [...] + | Sachin Dwyer | ECON | [address] [address] | | | | | [place] | | + + + + + Care Team Providers + +------+ + | Care Manager Country Name | Role | Phone | + [...] | | | | (congestive | PA-C [address]60 | [address] | | | | | heart | [place] | [place], | | | | | failure) | WAY | [place] | | | | | (HCC) | [place], | [address] | | | | | Procedures | [place] [address] | Phone: | | | | | RN RADIOLOGY 02/11 > | Phone: | [phone] | | | | | PENDING DOS | [phone] | Fax: | | | | | | Fax: | [phone] | | | | | | [phone] | | +--------+--------+ + + + + Encounter Details +--------+---------+ + + + | Date | Type | Department | Care Team | Description | +--------+---------+ + + + | 03/03/ | Office | [facility] | Сергей Vasquez | Congestive heart | | 2018 | Visit | CARDIOLOGY [address] | MD [place] [address] | failure, unspecified | | | | [address] [place], | [address] [place] | HF chronicity, | | | | [place] [address] | [place] [address] | unspecified heart | | | | [phone] | [phone] | failure type (HCC) | | | [...] whether | | | | | | mille l[place] or | | | | | | [...] procedure. 6. Make sure you have a cryogenic transport driver to take you home. Your cryogenic transport driver will also need to sign you [...] hospital line at and ask for nursing division supervisor t o let them know you [...] 1.0 % Final I reviewed records from [facility] for hospitalization,including H&P, Discharge [place] and [...] made to ensure accuracy; however, inadvertent computerized arson and bomb investigator errors may be pre sent. Electronically signed by: Kyler Vasquez MD [facility] 03/03/2018 in this encounter Plan of Treatment +--------+ + + + + | Date | Type | Specialty | Care Team | Description | +--------+ + + + + | 03/11/ | Surgery | Radiology | Сергей Vasquez | [facility] | | 2017 | | | MD [address] | | | | | | [address] [place] | | | | | | [place] [address] | | | | | | [phone] | | | | | | | [...] | | | | | [place] [address] | | | | | | [phone] | | | | | | | | +--------+ + + + + | 05/13/ | Office | Cardiology | Сергей Vasquez | | | 2017 | Visit | | MD [place] [address] | | | | | | [address] [facility] | | | | | | [place] [address] | | | | | | [phone] | | | | | | | [...] unspecified whether | | | | | mille lacs or | | | | | transplanted [...] unspecified whether | | | | | mille lacs or | | | | | transplanted [...] unspecified whether | | | | | mille lacs or | | | | | transplanted [...] VASQUEZ MD | | | | | ([id number]) on 03/04/2018 | | | | | [...] | + + | Myocardial infarction, unspecified [place] type, unspecified artery (HCC) | + + | Cerebrovascular accident (CVA), unspecified mechanism (HCC) | + + | Hypertension, unspecified type | + + | Heart disease | + + | Heart disease, unspecified | + + | Tobacco use disorder | + + | Coronary artery disease, angina presence unspecified, unspecified vessel or lesion type, | | unspecified whether mille lacs or transplanted heart | + +
--- OUTSIDE RECORDS SUMMARY | ~2018-03-08 | XMS | Encounter Summary ---
Demographics + + + | Address | [address] | | | [place] [address] | + + + | Home Phone | | + + + | Preferred Language | Unknown | + + + | Marital Status | | + + + | Restorationist Affiliation | 1041 | + + + | Race | Unknown | + + + | Ethnic Group | Unknown | + + + Author + + + | Author | [facility] | | | and [place] | + + + | Organization | [facility] | [...] + | Sachin Dwyer | ECON | [address] [address] | | | | | [place] | | + + + + + Care Team Providers + +------+ + | Care Finish Mill Operator Name | Role | Phone | [...] | | | | (congestive | PA-C [address] | [address] | | | | | heart | [place] | [place], | | | | | failure) | WAY | [place] | | | | | (HCC) | [place], | [address] | | | | | Procedures | [place] [address] | Phone: | | | | | BRANCH LENDING OFFICER 02/11 > | Phone: | [phone] | | | | | PENDING DOS | [phone] | Fax: | | | | | | Fax: | [phone] | | | | | | [phone] | | +--------+--------+ + + + + Encounter Details +--------+---------+ + + + | Date | Type | Department | Care Team | Description | +--------+---------+ + + + | 03/03/ | Office | [facility] | Сергей Vasquez | Congestive heart | | 2018 | Visit | CARDIOLOGY [address] | MD [place] [address] | failure, unspecified | | | | [address] [place], | [address] [place] | HF chronicity, | | | | [place] [address] | [place] [address] | unspecified heart | | | | [phone] | [phone] | failure type (HCC) | | | | | | (Primary Dx); | | | | | | Myocardial | | | | | | infarction, | | | | | | unspecified [place] type, | | | | | | [...] whether | | | | | | chickahominy indians-eastern division or | | | | | | [...] procedure. 6. Make sure you have a local delivery driver to take you home. Your local delivery driver will also need to sign [...] hospital line at and ask for nursing field service supervisor t o let them know you [...] 1.0 % Final I reviewed records from [facility] for hospitalization,including H&P, Discharge S [place] [...] made to ensure accuracy; however, inadvertent computerized salesperson driver errors may be pre sent. Electronically signed by: Kyler Vasquez MD [facility] 03/03/2018 in this encounter Plan of Treatment +--------+ + + + + | Date | Type | Specialty | Care Team | Description | +--------+ + + + + | 03/11/ | Surgery | Radiology | Сергей Vasquez | [facility] | | 2017 | | | MD [address] | | | | | | [address] [place] | | | | | | [place] [address] | | | | | | [phone] | | | | | | | [...] | | | | | [place] [address] | | | | | | [phone] | | | | | | | | +--------+ + + + + | 05/13/ | Office | Cardiology | Сергей Vasquez | | | 2017 | Visit | | MD [place] [address] | | | | | | [address] [facility] | | | | | | [place] [address] | | | | | | [phone] | | | | | | | [...] unspecified whether | | | | | chickahominy indians-eastern division or | | | | | transplanted [...] unspecified whether | | | | | chickahominy indians-eastern division or | | | | | transplanted [...] unspecified whether | | | | | chickahominy indians-eastern division or | | | | | transplanted [...] VASQUEZ MD | | | | | ([id number]) on 03/04/2018 | | | | | [...] | + + | Myocardial infarction, unspecified [place] type, unspecified artery (HCC) | + + | Cerebrovascular accident (CVA), unspecified mechanism (HCC) | + + | Hypertension, unspecified type | + + | Heart disease | + + | Heart disease, unspecified | + + | Tobacco use disorder | + + | Coronary artery disease, angina presence unspecified, unspecified vessel or lesion type, | | unspecified whether chickahominy indians-eastern division or transplanted heart | + +
--- OUTSIDE RECORDS SUMMARY | ~2018-03-08 | XMS | Clinical Summary ---
Demographics + + + | Address | [address] | | | [place] [address] | + + + | Home Phone | | + + + | Preferred Language | Unknown | + + + | Marital Status | | + + + | Adventist Affiliation | Unknown | + + + [...] [address] | | | | | [address] | | + + + + + Care Team Providers + +------+ + | Care Applied Technologist Name | Role | Phone | + +------+ + PP | Unavailable | + +------+ + Source Comments CHELY is fully live on both [facility] and [facility] In[facility] Allergies Not on File Current Medications [...]
--- OUTSIDE RECORDS SUMMARY | ~2018-03-08 | XMS | Clinical Summary ---
Demographics + + + | Address | [address] | | | [place] [address] | + + + | Home Phone [...] | Organization | [facility] | | | and [...] + | Sachin Dwyer | ECON | [phone] [address] | | | | | [place] | | + + + + + Care Team Providers + +------+ + | Care Medical Appliance Maker Name | Role | Phone | [...] + + | Overview: Echocardiogram done at [facility] on 01/28/18 | | shows [...] | CVA (cerebral vascular accident) ([facility]) | | + +---+ | Hypertension [...] | | | | | | unspecified [place] type, | | | | | | [...] | Surgery | | Сергей Vasquez | [facility] | | 2017 | | | MD [place] [address] | | | | | | [address] | | | | | | [place] [address] | | | | | | [phone] | | | | | | | | +--------+ + + + + | 03/11/ | Procedure | | | | | 2017 | Pass | | | | +--------+ + + + + | 03/11/ | Hospital | | Сергей Vasquez | | | 2017 | Encounter | | MD [address] | | | | | | [address] [place] | | | | | | [place] [address] | | | | | | [phone] | | | | | | | | +--------+ + + + + | 05/13/ | Office | | Сергей Vasquez | | | 2017 | Visit | | MD [address] | | | | | | [address] [place] | | | | | | [place] [address] | | | | | | [phone] | | | | | | | [...] VASQUEZ MD | | | | | ([id number]) on 03/04/2018 | | | | | [...] | [employer] | MODA | [id number] | [employer] | +- | | | [...] | Self | [birth year] | Home: | [address] | | | [place] | | 1955 | [phone] | [place] [address] | | | jeni | | | [address] | | + +--------+ +--------+ + +
--- OUTSIDE RECORDS SUMMARY | ~2018-03-08 | XMS | Encounter Summary ---
Demographics + + + | Address | [address] | | | [place] [address] | + + + | Home Phone | | + + + | Preferred Language | Unknown | + + + | Marital Status | | + + + | Buddhist Affiliation | 1041 | + + + | Race | Unknown | + + + | Ethnic Group | Unknown | + + + Author + + + | Author | [facility] | | | and [place] | + + + | Organization | [facility] | | [...] + | Sachin Dwyer | ECON | [address] | | | | | [place] | | + + + + + Care Team Providers + +------+ + | Care Metal Leaf Layer Name | Role | Phone | + [...] | failure, unspecified | | | | [place], | [address] [place] | HF chronicity, | | | | [place] [address] | [place] [address] | unspecified heart | | | | [phone] | [phone] | failure type (HCC) | | | [...] | Radiology | Сергей Gaitan | [facility] | | 2017 | | | MD [place] [address] | | | | | | [address] | | | | | | [place] [address] | | | | | | [phone] | | | | | | | | +--------+ + + + + | 03/11/ | Procedure | Radiology | | | | 2017 | Pass | | | | +--------+ + + + + | 03/11/ | Hospital | Radiology | Сергей Gaitan | | | 2017 | Encounter | | MD [address] | | | | | | [address] [place] | | | | | | [place] [address] | | | | | | [phone] | | | | | | | | +--------+ + + + + | 05/13/ | Office | Cardiology | Сергей Gaitan | | | 2017 | Visit | | MD [address] | | | | | | [address] [place] | | | | | | [place] [address] | | | | | | [phone] | | | | | | | [...]
[2018-03-09] MEDS ORDERED: VISTARIL25 MG PO (01:57)
[2018-03-09] MEDS ORDERED: MELATONIN1 MG PO (01:59)
--- NOTE | 2018-03-09 04:10 | NUR ---
pt and family member given food per request. assisted pt up to bsc to void 200 ml. warm blanket given
--- NOTE | 2018-03-09 06:53 | NUR ---
PATIENT ADMITTED TO FOR DEHYDRATION. INCREASED K+=5.4.AMBULANCE CALLED AFTER 4 HOURS OF LEFT CHEST PAIN AND LEFT ARM PAIN WHICH IS NOT ABNORMAL. 2.5 LITERS IV BOLUS GIVEN THROUGH ER. 20LAC STILL RUNNING NS STILL AT 100MLS/HR. PATIENT'S RT MIDDLE TOE SCHEDULED TO BE AMPUTATED WITH AND PATIENT HAS A DRY ULCER DRESSED IN THE MIDDLE OF THE BALL OF HER RT FOOT. PATIENT IS VARY ANXIOUS PERSON, S/O AT BEDSIDE ALL NIGHT. UP TO BEDSIDE COMMOE MULTIPLE TIMES WITH 1PSBA. HX CHF. PATIENT STOPPED SMOKING AND METH 40 DAYS AGO COLD . CARDIAC DIET AND PATIENT HAS BEEN STABLE. HX OF STROKE AND DC. REPORT TO AM NURSE.
--- NOTE | 2018-03-09 07:23 | NUR ---
PATIENT IN BED, I ASKED HER FOR HER BREAKFAST ORDER, SHE DIDNT WANT TO DO ANY AM CARE, SHE NEEDED NO OTHER ASSISTANCE AT THE TIME
--- NOTE | 2018-03-09 08:18 | NUR ---
WOKE PATIENT UP TO EAT HER BREAKFAST ALSO ORDERED HER SOME BREAKFAST. GOT HER ICE FOR HER SODA. IF SHE CAN TAKE A SHOWER SHE WOULD LIKE ONE
--- NOTE | 2018-03-09 10:24 | NUR ---
PT STATES SHE HAS BASELINE EYE CONDITION, THAT SHE HAS A "LUMP" BEHIND HER EYE. THIS AM SHE HAS COMPLAINED OF DIZZINESS AND "SEEING SPOTS", REPORTED TO PROVIDER, ORTHOSTATIC VS TAKEN, PT IS NOT HYPOTENSIVE. PT HAS HAD MINIMAL WEAKNESS AND IS FAIRLY STABLE WHEN STANDING. PT HAS COMPLAINED OF ANXIETY, GAVE PRN HYDROXYZINE PER ORDERS. WILL CONTINUE TO MONITOR.
--- NOTE | 2018-03-09 10:28 | NUR ---
patient in bed, will get lunch ordered
--- NOTE | 2018-03-09 11:37 | EKG ---
[facility] [address] [facility] [place] [address] Signed Normal sinus rhythm Septal infarct (cited on or before 27-JAN-2018) Abnormal ECG When compared with ECG of 10-FEB-2018 04:06, T wave amplitude has increased in Anterior leads Confirmed by GISELLE CHAPPELL MD ([id number]) on 03/09/2018 11:36:51 AM Electronically Signed By: GISELLE CHAPPELL MD 03/09/18 1137 PATIENT NAME: JOSE G COX Electrocardiogram DATE OF : 59 PHYSICIAN: GISELLE CHAPPELL MD REPORT #: [id number] REPORT IS CONFIDENTIAL AND NOT TO BE RELEASED WITHOUT AUTHORIZATION
--- NOTE | 2018-03-09 16:00 | NUR ---
DID PATIENT'S BLOOD SUGAR CHECK.
--- NOTE | 2018-03-09 16:02 | NUR ---
PATIENT IS SLEEPING.
--- NOTE | 2018-03-09 16:30 | NUR ---
PATIENT TOOK A SHOWER BEFORE DINNER. I STOOD BY IN CASE SHE NEEDED ANY HELP.
--- NOTE | 2018-03-09 17:57 | NUR ---
pt resting in bed. pt has no needs at this time. call light within reach.
--- NOTE | 2018-03-09 18:53 | NUR ---
PT HAS BEEN RETAINED DUE TO KIDNEY FUNCTION PER PROVIDER, MEDICALLY STABLE OTHERWISE. PT HAS HAD SIGNIFICANT ANXIETY THIS AM, GIVEN PRN VISTARIL, PT CONDITION IMPROVED. GIVEN TYLENOL FOR HEAD ACHE. PT PUT ON AC HS SUGARS AND GIVEN INSULIN THIS AFTERNOON.
--- NOTE | 2018-03-09 20:39 | NUR ---
COOP WITH ASSESSMENT
--- NOTE | 2018-03-09 22:16 | NUR ---
medicated with 3mg melatonin per c/o insomnia
--- NOTE | 2018-03-09 22:47 | NUR ---
WARM BLANKET GIVEN ON HER REQUESTS
--- NOTE | 2018-03-09 23:22 | NUR ---
ASSISTED PATIENT USE THE BEDSIDE COMMODE AND BACK TO BED. CALL LIGHT AND BED SIDE TABLE ARE WITHIN REACH. NO OTHER NEEDS AT THIS TIME.
--- NOTE | 2018-03-10 03:48 | NUR ---
UP TO BRP, VOIDED, BACK TO BED, ONE PERSON ASSIST, TOLERATED WELL, BACK TO BED. IVF INFUSING W/O PROBLEMS. NO C/.O HYPOGLYCEMIA OR HYPERGLYCEMIA STATED
--- NOTE | 2018-03-10 05:28 | NUR ---
awakens easily, no c/o pain , anxiety or distress
--- NOTE | 2018-03-10 06:10 | NUR ---
Currently resting, no c/o chest pain or resp distress. Cooperativ with assessments, VS and cbg draws. accucheck last night 181, resceived 3 units SS humalog insulin. Lungs slightly dim at bases, on room air. IVF infusing w/o problems. Up to brp, voiding qs, no bm this shift. uses call light. Using one person assist, weak gait at times, much improved this am. L foot dressing inplace, R mid toe blackened, colder to touch than rest of toes. Pt staes that she is having surgery done Saturday by Dr Chapman to amputate toe. Received Melatonin for insomnia, effective. Tolerating ADA diet w/o problems
--- NOTE | 2018-03-10 09:44 | NUR ---
FIGURED OUT PLAN FOR OUT PATIENT PROCEDURES. ALL CANCELLED UNTIL PATIENT STABLE. PT AWAKE LYING IN BED. HEAD TO TOE ASSESSMENT COMPLETED. PATIENT EATING BREAKFAST IN BED NOW. NO NEEDS AT THIS TIME.
--- NOTE | 2018-03-10 10:20 | NUR ---
PATIENT RESTING IN BED. PATIENT STATES SHE WILL RETURN HOME WITH . PATIENT STATES SHE WANTS SOMEONE TO TELL HER "WHAT IS WRONG WITH MY HEART". WE DISCUSSED DIAGNOSIS. PATIENT WOULD LIKE MORE INFO ON CARDIAC TEACHING. DISCUSSED THAT HER PCP OFFICE HAS CLASSES FOR DIET RELATED TO HF AND DIABETES. ALSO THAT THEY HAVE COMMUNITY HEALTH NURSES WHO CAN COME TO THEIR HOME TO HELP THEM. SHE STATES "I DON'T LIKE PEOPLE GETTING IN MY BUSINESS". SHE WANTS SOMEONE FROM THE HOSPITAL TO TALK WITH HER. DISCUSSED THAT WE WILL LOOK AT HAVING OUR CARDIAC NURSE EDUCATOR SPEAK WITH HER WHILE SHE IS HERE OR FOLLOW UP WITH HER AFTER DISCHARGE. NO OTHER QUESTIONS AT THIS TIME.
[2018-03-10] MEDS ORDERED: CARVEDILOL6.25 MG PO (11:03)
[2018-03-10] MEDS ORDERED: LISINOPRIL10 MG PO (11:30)
[2018-03-10] MEDS ORDERED: ATORVASTATIN CA10 MG PO (11:30)
[2018-03-10] MEDS ORDERED: DOXYCYCLINE HYC50 MG PO (11:31)
[2018-03-10] MEDS ORDERED: ALBUTEROL2.5 MG/3 M INH (11:32)
--- NOTE | 2018-03-10 11:41 | NUR ---
ROUNDED ON PATIENT TO TURN LIGHT OFF IN ROOM. PATIENT EXPRESSED FEELING ANXIOUS AND THAT THE LIGHTS BOTHERED HER. THERAPEUTIC COMMUNICATION PROVIDED, NO MORE NEEDS AT THIS TIME. VISITOR IN ROOM WITH PATIENT.
--- NOTE | 2018-03-10 13:16 | NUR ---
ASSISTED PATIENT BACK TO BED FROM BATHROOM, REPORTED FEELINGS OF LIGHTHEADEDNESS. SALINE LOCKED PT DUE TO NEW D/C IV FLUID ORDERS FROM HOSPTIALIST. REMOVED FOOD TRAY. NO MORE COMPLAINTS AT THIS TIME.
--- NOTE | 2018-03-10 14:30 | NUR ---
PATIENT IN BED WATCHING TV. FRESH WATER GIVEN. CALL LIGHT IN REACH. NO FURTHER NEEDS AT THIS TIME.
--- NOTE | 2018-03-10 16:13 | NUR ---
PATIENT COMPLAINED OF PAIN IN HEAD AND RIGHT FOOT, PRN TYLENOL GIVEN. PATIENT EXPRESSED ANXIETY, PRN HYDROXYZINE PAMOATE ADMINISTERED. IV IN LEFT FORARM NO LONGER PATENT, IV REMOVED, PATIENT TOLERATED WELL. BROUGHT PATIENT WARM BLANKET. RESTING COMFORTABLY IN BED. POSSESSIONS AT BEDSIDE. NO MORE COMPLAINTS AT THIS TIME.
--- NOTE | 2018-03-10 17:17 | NUR ---
[facility] Heart Failure Education note: Patient requests more information on what is wrong with her heart. Discussed heart failure and home management. Patient was able to state that she has been performing daily weights and that dry weight is 168lb - with home weights between 168-172lb since discharge. Has a routine visit schedule with PCP. But she has not been in counseling specifically for addiction, which we discussed in detail. For cardiac diet she showed limited knowledg.States she has rid her house of salt. But then she states she uses processed sauces that are high in salt to flavor foods. Patient is anxious with tangential conversation. Encouraged patient to call this service to schedule an outpatient heart failure self managment education visit.
--- NOTE | 2018-03-10 18:31 | NUR ---
PATIENT SITTING IN BED WATCHING TV. V/S TAKEN. FRESH WATER GIVEN. CALL LIGHT IN REACH. NO FURTHER NEEDS AT THIS TIME.
--- NOTE | 2018-03-10 18:41 | NUR ---
PATIENT IS AWAKE AND ALERT, 1PA WITH FWW. SALINE LOCKED. ACCU CHECKS BEFORE EACH MEAL, HUMALOG GIVEN BEFORE DINNER. ADA DIET. SORE ON RIGHT FOOT, WITH BLACKENED MIDDLE TOE, WRAPPED IN COBAN. SUFFERS FROM ANXIETY THAT IS ADDRESSED THROUGH THERAPEUTIC COMMUNICATION AND MEDICATION. COMPLAINED OF PAIN THIS AFTERNOON, TYLENOL GIVEN AT 1600. LABS TO BE DRAWN TOMORROW MORNING, POSSIBLE DISCHARGE IF LABS HAVE IMPROVED.
--- NOTE | 2018-03-10 19:16 | NUR ---
IN ROOM FOR REPORT, PT IS RESTING WITH EYES CLOSED, RESPIRATIONS ARE EVEN AND NONLABORED. CALL LIGHT IS WITHIN REACH.
--- NOTE | 2018-03-10 22:20 | NUR ---
IN ROOM TO ASSESS PT AND ADMINISTER MEDICATIONS. HER SON AND ARE IN THE ROOM WITH HER. SHE STATES SHE HAS A HEADACHE, TYLENOL GIVEN. SHE DENIES FOOT PAIN AT THIS TIME. SHE ALSO REPORTS SHE IS DRINKING MORE WATER. HER BS IS 206 AND 3 UNITS INSULIN GIVEN. GAVE PT WARM BLANKET AND SHE DENIES FURTHER NEEDS AT THIS TIME.
--- NOTE | 2018-03-11 00:06 | NUR ---
PT IS RESTING WITH EYES CLOSED, FAMILY IS IN ROOM.
--- NOTE | 2018-03-11 01:38 | NUR ---
PT IS RESTING WITH EYES CLOSED, RESPIRATIONS ARE EVEN AND NONLABORED. CALL LIGHT IS WITHIN REACH.
--- NOTE | 2018-03-11 04:36 | NUR ---
PT IS ANXIOUS D/T FALLING OUT OF BED. HE WAS TAKEN TO THE ED VIA STRETCHER. 25 MG VISTERIL GIVEN AND FRESH WATER IS AT THE BEDSIDE. HER SON REMAINS IN THE ROOM WITH HER. SHE DENIES PAIN AT THIS TIME. CALL LIGHT IS WITHIN REACH.
--- NOTE | 2018-03-11 06:06 | NUR ---
PT LYING IN BED. STATES THAT SHE HAD A BAD DREAM AND WOKE UP WITH A HEADAHCE. PT RATES PAIN /. PRN TYLENOL ADMINISTERED. PT DENIES OTHER NEEDS. PT'S AND SON AT BEDSIDE. CALL LIGHT WITHIN REACH.
--- NOTE | 2018-03-11 06:32 | NUR ---
PT IS RESTING WITH EYES CLOSED, RESPIRATIONS ARE EVEN AND NONLABORED.
--- NOTE | 2018-03-11 09:37 | NUR ---
CHANGE OF SHIFT REPORT: RECIEVED CHANGE OF SHIFT REPORT FROM [facility]. PATIENT SLEEPING IN BED WITH FAMILY AT BEDSIDE. WHITE BOARD UPDATED. SALINE LOCKED. NO COMPLAINTS AT THIS TIME. 0915: ROUNDED ON SLEEPING PATIENT FOR MORNING MEDICATIONS, BREAKFAST AT BEDSIDE. ADMINISTERED MORNING MEDICATIONS AND HELPED PATIENT UP TO BATHROOM. PHARMACIST EDUCATED PATIENT ON MEDICATIONS THEY WILL BE TAKING AT HOME AFTER DISCHARGE, EXPRESSED UNDERSTANDING AFTER ASKING NURSES QUESTIONS ABOUT MEDICATIONS. SITTING AT BEDSIDE EATING BREAKFAST. EXPRESSED DESIRE TO RECIEVE ANXIETY MEDICATION. CALL LIGHT WITHIN REACH. POSSESSIONS AT BEDSIDE.
--- NOTE | 2018-03-11 11:30 | NUR ---
ROUNDED ON PATIENT, COMPLAINED OF ANXIETY, PRN VISTARIL. SHOWERED AND BACK TO BED AND SITTING ON SIDE OF BED, PATIENT COMPLAINED OF FEELING DIZZY. BG WAS 153. ROOM WAS CLEANED AND BED WAS MADE. CALL LIGHT WITHIN REACH. POSSESSIONS AND FAMILY AT BEDSIDE. PLAN OF CARE DISCUSSED AND PATIENT EXPRESSED UNDERSTANDING.
--- NOTE | 2018-03-11 12:14 | NUR ---
ROUNDED ON PATIENT TO ADMINISTER 1 UNIT OF HUMALOG FOR BG OF 153. OCC THERAPY ASST IN ROOM WITH PATIENT AND FAMILY.
--- NOTE | 2018-03-13 13:43 | NUR ---
Heart failure follow up call #1- No answer. LM and encouraged patient to call back today and to call PCP if she has any urgent needs.
== END 2018-03-11 12:45 | disposition home or self-care (01) ==
LOC: ED 21:50 → MS 21:51
PROVIDERS: ADMIT Internal Medicine
DX: N17.9 Acute kidney failure, unspecified (principal); E86.0 Dehydration; T50.1X5A Adverse effect of loop [high-ceiling] diuretics, initial encounter; E11.621 Type 2 diabetes mellitus with foot ulcer; L97.519 Non-pressure chronic ulcer of other part of right foot with unspecified severity; J45.909 Unspecified asthma, uncomplicated; I25.2 Old myocardial infarction; F10.21 Alcohol dependence, in remission; I11.0 Hypertensive heart disease with heart failure; F15.11 Other stimulant abuse, in remission; F41.9 Anxiety disorder, unspecified; F32.9 Major depressive disorder, single episode, unspecified; I25.10 Atherosclerotic heart disease of native coronary artery without angina pectoris; I50.22 Chronic systolic (congestive) heart failure; E11.52 Type 2 diabetes mellitus with diabetic peripheral angiopathy with gangrene; I96 Gangrene, not elsewhere classified; Z87.891 Personal history of nicotine dependence; Z86.73 Personal history of transient ischemic attack (TIA), and cerebral infarction without residual deficits; Z88.8 Allergy status to other drugs, medicaments and biological substances; Z79.82 Long term (current) use of aspirin; Z79.4 Long term (current) use of insulin; Z79.899 Other long term (current) drug therapy
CPT/HCPCS: 36415; 71046; 80048; 80053; 83880; 84484; 85025; 93005; 93010; 94640; 96360; 96361; 99285; G0378; J1815; J7030; Q0177

== ENCOUNTER 2018-04-15 22:01 | Emergency (ER) | payer OTHER ==
[~2018-04-15] VITALS: Ht 160 cm; Wt 81.2 kg
--- OUTSIDE RECORDS SUMMARY | ~2018-04-15 | XMS | Encounter Summary ---
Demographics + + + | Address | [address] | | | [place] [address] | + + + | Home Phone | | + + + | Preferred Language | Unknown | + + + | Marital Status | | + + + | Jewish Affiliation | 1041 | + + + | Race | Unknown | + + + | Ethnic Group | Unknown | + + + Author + + + | Author | [facility] | | | and [place] | + + + | Organization | [facility] | | | and [place] | [...] + | Sachin Dwyer | ECON | [address] | | | | | [place] | | + + + + + Care Team Providers + +------+ + | Care Band Top Maker Name | Role | Phone | + +------+ + | Bernadette Armendariz PA-C | PCP | | + +------+ + Encounter Details +--------+ + + + + | Date | Type | Department | Care Team | Description | +--------+ + + + + | 02/17/ | Abstract | [facility] [place] | [facility] | Congestive heart | | 2018 | | CARDIOLOGY [address] | MD [place] [address] | failure, unspecified | | | | [place], | [address] [place] | HF chronicity, | | | | [place] [address] | [place] [address] | unspecified heart | | | | [phone] | [phone] | failure type (HCC) | | | | | | | +--------+ + + + + Social History + +-------+ +--------+------+ | Tobacco Use | Types | Packs/Day | Years | Date | | | | | Used | | + +-------+ +--------+------+ | Current Every Day | | | | | | Smoker | | | | | + +-------+ +--------+------+ + + + | Sex Assigned at | Date Recorded | | | | + + + | Not on file | | + + + as of this encounter Plan of Treatment +--------+---------+ + + + | Date | Type | Specialty | Care Team | Description | +--------+---------+ + + + | 05/13/ | Office | Cardiology | Сергей Gaitan | | | 2017 | Visit | | MD [place] [address] | | | | | | [address] | | | | | | [place] [address] | | | | | | [phone] | | | | | | | [...] +--------+ + + + | EXTERNAL LAB: B TYPE | Routin | 01/31/2018 | | Results [...] + + + in this encounter Results CBC with Differential (01/31/2018) + +-------+ + + | Component [...] Blood | + + Comprehensive Metabolic Panel (01/31/2018) + +-------+ + + | Component [...] | Blood | + + External Lab: Glucose (01/31/2018) + +-------+ + + | Component | Value | Ref Range | Performed At | + +-------+ + + | Glucose, External | 149 | | | + +-------+ + + External Lab: Troponin T (01/31/2018) + +--------+ + + | Component | Value | Ref Range | Performed At | + +--------+ + + | Troponin T, External | <0.010 | | | + +--------+ + + External Lab: ALT (01/31/2018) + +-------+ + + | Component | Value | Ref Range | Performed At | + +-------+ + + | ALT, External | 9 | | | + +-------+ + + External Lab: AST (01/31/2018) + +-------+ + + | Component | Value | Ref Range | Performed At | + +-------+ + + | AST, External | 16 | | | + +-------+ + + External Lab: Alkaline Phosphatase (01/31/2018) + +-------+ + + | Component | Value | Ref Range | Performed At | + +-------+ + + | ALP, External | 99 | | | + +-------+ + + External Lab: Bilirubin, Total (01/31/2018) + +-------+ + + | Component | Value | Ref Range | Performed At | + +-------+ + + | Bilirubin, Total, | 0.3 | | | | External | | | | + +-------+ + + External Lab: Albumin (01/31/2018) + +-------+ + + | Component | Value | Ref Range | Performed At | + +-------+ + + | Albumin, External | 2.6 | | | + +-------+ + + External Lab: Protein, Total (01/31/2018) + +-------+ + + | Component | Value | Ref Range | Performed At | + +-------+ + + | Protein, Total, | 7.5 | | | | External | | | | + +-------+ + + External Lab: Calcium (01/31/2018) + +-------+ + + | Component | Value | Ref Range | Performed At | + +-------+ + + | Calcium, External | 8.5 | | | + +-------+ + + External Lab: CBC (01/31/2018) + +-------+ + + | Component [...] Blood | + + External Lab: eGFR (01/31/2018) + +-------+ + + | Component | Value | Ref Range | Performed At | + +-------+ + + | eGFR, External | 46 | | | + +-------+ + + + + | Specimen | + + | Blood | + + CBC with Differential (01/27/2018) + +-------+ + + | Component | Value | Ref Range | Performed At | + +-------+ + + | MCH | 27.0 | 26.0 - 33.0 pg | | + +-------+ + + | MCHC | 33.0 | 30.0 - 36.0 % | | + +-------+ + + | BASOPHILS % | 0.3 | 1.0 % | | + +-------+ + + + + | Specimen | + + | Blood | + + Comprehensive Metabolic Panel (01/27/2018) + +-------+ + + | Component | Value | Ref Range | Performed At | + +-------+ + + | ANION GAP | 12 | mmol/L | | + +-------+ + + | Bun/Creatinine | 17.7 | | | + +-------+ + + | Globulin | 4.7 | | | + +-------+ + + | Albumin/Globulin | 0.5 | | | | Ratio | | | | + +-------+ + + + + | Specimen | + + | Blood | + + External Lab: Glucose (01/27/2018) + +-------+ + + | Component | Value | Ref Range | Performed At | + +-------+ + + | Glucose, External | 241 | | | + +-------+ + + External Lab: Troponin T (01/27/2018) + +--------+ + + | Component | Value | Ref Range | Performed At | + +--------+ + + | Troponin T, External | <0.010 | | | + +--------+ + + External Lab: ALT (01/27/2018) + +-------+ + + | Component | Value | Ref Range | Performed At | + +-------+ + + | ALT, External | 8 | | | + +-------+ + + External Lab: AST (01/27/2018) + +-------+ + + | Component | Value | Ref Range | Performed At | + +-------+ + + | AST, External | 10 | | | + +-------+ + + External Lab: Alkaline Phosphatase (01/27/2018) + +-------+ + + | Component | Value | Ref Range | Performed At | + +-------+ + + | ALP, External | 109 | | | + +-------+ + + External Lab: Bilirubin, Total (01/27/2018) + +-------+ + + | Component | Value | Ref Range | Performed At | + +-------+ + + | Bilirubin, Total, | 0.2 | | | | External | | | | + +-------+ + + External Lab: Albumin (01/27/2018) + +-------+ + + | Component | Value | Ref Range | Performed At | + +-------+ + + | Albumin, External | 2.5 | | | + +-------+ + + External Lab: Protein, Total (01/27/2018) + +-------+ + + | Component | Value | Ref Range | Performed At | + +-------+ + + | Protein, Total, | 7.2 | | | | External | | | | + +-------+ + + External Lab: Calcium (01/27/2018) + +-------+ + + | Component | Value | Ref Range | Performed At | + +-------+ + + | Calcium, External | 8 | | | + +-------+ + + External Lab: CBC (01/27/2018) + +-------+ + + | Component | Value | Ref Range | Performed At | + +-------+ + + | Neutrophils %, | 61.8 | | | | External | | | | + +-------+ + + | Lymphocytes %, | 28.9 | | | | External | | | | + +-------+ + + | Monocytes %, | 5.0 | | | | External | | | | + +-------+ + + | Eosinophils %, | 4.0 | | | | External | | | | + +-------+ + + | RBC, External | 3.77 | | | + +-------+ + + | MCV, External | 81 | | | + +-------+ + + | RDW, External | 13.8 | | | + +-------+ + + External Lab: eGFR (01/27/2018) + +-------+ + + | Component | Value | Ref Range | Performed At | + +-------+ + + | eGFR, External | 42 | | | + +-------+ + + + + | Specimen | + + | Blood | + + in this encounter Visit Diagnoses + + | Diagnosis | + + | Congestive heart failure, unspecified HF chronicity, unspecified heart failure type | | (HCC) | + +"
--- OUTSIDE RECORDS SUMMARY | ~2018-04-15 | XMS | Encounter Summary ---
Demographics + + + | Address | [address] | | | [place] [address] | + + + | Home Phone | | + + + | Preferred Language | Unknown | + + + | Marital Status | | + + + | Baptism Affiliation | 1041 | + + + | Race | Unknown | + + + | Ethnic Group | Unknown | + + + Author + + + | Author | [facility] | | | and [place] | + + + | Organization | [facility] | | | and [...] + | Sachin Dwyer | ECON | [address] | | | | | [place] | | + + + + + Care Team Providers + +------+ + | Care Evp And Chief Operating Officer Name | Role | Phone | + [...] | failure, unspecified | | | | [address], | [address] [place] | HF chronicity, | | | | [place] [address] | [place] [address] | unspecified heart | | | | [phone] | [phone] | failure type (HCC) | | | [...] | | | | | [place] [address] | | | | | | [phone] | | | | | | | [...]
--- OUTSIDE RECORDS SUMMARY | ~2018-04-15 | XMS | Encounter Summary ---
Demographics + + + | Address | [address] | | | [place] [address] | + + + | Home Phone [...] + | Organization | [facility] | | | and [place] [...] + | Sachin Dwyer | ECON | [address] | | | | | [place] | | + + + + + Care Team Providers + +------+ + | Care Clinical Social Work Therapist Name | Role | Phone | + [...] [address] | | | | | [place], | [address] [place] | | | | | [place] [address] | [place] [address] | | | | | [phone] | [phone] | | | | | | | [...] | | | | | [address] [place] | | | | | | [place] [address] | | | | | | [phone] | | | | | | | [...] + + + in this encounter Results Comprehensive Metabolic Panel (03/19/2018) + + + + + | Component [...] + +--------+ + + External Lab: Glucose (03/19/2018) + +---------+ + + | Component | Value | Ref Range | Performed At | + +---------+ + + | Glucose, External | 153 (A) | 65 - 99 | | + +---------+ + + External Lab: ALT (03/19/2018) + +-------+ + + | Component | Value | Ref Range | Performed At | + +-------+ + + | ALT, External | 16 | 0 - 41 | | + +-------+ + + External Lab: AST (03/19/2018) + +-------+ + + | Component | Value | Ref Range | Performed At | + +-------+ + + | AST, External | 18.0 | 0 - 40 | | + +-------+ + + External Lab: Alkaline Phosphatase (03/19/2018) + +-------+ + + | Component | Value | Ref Range | Performed At | + +-------+ + + | ALP, External | 120 | 40 - 129 | | + +-------+ + + External Lab: Bilirubin, Total (03/19/2018) + +-------+ + + | Component | Value | Ref Range | Performed At | + +-------+ + + | Bilirubin, Total, | 0.6 | 0.1 - 1.5 | | | External | | | | + +-------+ + + External Lab: Albumin (03/19/2018) + +---------+ + + | Component | Value | Ref Range | Performed At | + +---------+ + + | Albumin, External | 3.4 (A) | 3.5 - 5.2 | | + +---------+ + + External Lab: Protein, Total (03/19/2018) + +-------+ + + | Component | Value | Ref Range | Performed At | + +-------+ + + | Protein, Total, | 7.0 | 6.2 - 8.2 | | | External | | | | + +-------+ + + External Lab: Calcium (03/19/2018) + +-------+ + + | Component [...] Lab: eGFR (03/19/2018) + +-------+ + + | Component | Value | Ref Range | Performed At | + +-------+ + + | eGFR, External | 32 | | | + +-------+ + + + + | Specimen | + + | Blood | + + in this encounter Visit Diagnoses Not on filein this encounter"
--- OUTSIDE RECORDS SUMMARY | ~2018-04-15 | XMS | Encounter Summary ---
Demographics + + + | Address | [address] | | | [place] [address] | + + + | Home Phone | | + + + | Preferred Language | Unknown | + + + | Marital Status | | + + + | Temple Affiliation | 1041 | + + + | Race | Unknown | + + + | Ethnic Group | Unknown | + + + Author + + + | Author | [facility] | | | and [place] | + + + | Organization | [facility] | | | and [place] [...] + | Sachin Dwyer | ECON | [address] | | | | | [place] | | + + + + + Care Team Providers + +------+ + | Care Canal Structure Operator Name | Role | Phone | [...] + + | 03/10/ | Telephone | [facility] | Сергей Gaitan | Other (procedure | | 2017 | | [address] | MD [place] [address] | cancellation) | | | | [place], | [address] [place] | | | | | [place] [address] | [place] [address] | | | | | [phone] | [phone] | | | | | | | [...] | | | | | [place] [address] | | | | | | [phone] | | | | | | | | +--------+---------+ + + + as of this encounter Visit Diagnoses Not on filein this encounter"
--- OUTSIDE RECORDS SUMMARY | ~2018-04-15 | XMS | Encounter Summary ---
Demographics + + + | Address | [address] | | | [place] [address] | + + + | Home Phone [...] + + | Author | [facility] | | | and [place] | + + + | Organization | [facility] | | | and [...] + | Sachin Dwyer | ECON | [address] | | | | | [place] | | + + + + + Care Team Providers + +------+ + | Care Automobile Body Repairer Helper Name | Role | Phone | [...] + + | 03/10/ | Telephone | [facility] | Сергей Gaitan | Other (procedure | | 2017 | | [address] | MD [place] [address] | cancellation) | | | | [place], | [address] [place] | | | | | [place] [address] | [place] [address] | | | | | [phone] | [phone] | | | | | | | [...] | | | | | [place] [address] | | | | | | [phone] | | | | | | | | +--------+---------+ + + + as of this encounter Visit Diagnoses Not on filein this encounter"
--- OUTSIDE RECORDS SUMMARY | ~2018-04-15 | XMS | Encounter Summary ---
Demographics + + + | Address | [address] | | | [place] [address] | + + + | Home Phone [...] + + | Author | [facility] | | | and [place] | + + + | Organization | [facility] | | | and [place] [...] + | Sachin Dwyer | ECON | [address] | | | | | [place] | | + + + + + Care Team Providers + +------+ + | Care Parts Casting Machine Operator Name | Role | [...] | | | | | [address] | | | | | | [place], [place] | | | | | | [address] | | | | | | [phone] | | | +--------+ + + + [...] | | | | | [place] [address] | | | | | | [phone] | | | | | | | | +--------+---------+ + + + as of this encounter Visit Diagnoses Not on filein this encounter"
--- OUTSIDE RECORDS SUMMARY | ~2018-04-15 | XMS | Clinical Summary ---
Demographics + + + | Address | [address] | | | [place] [address] | + + + | Home Phone | | + + + | Preferred Language | Unknown | + + + | Marital Status | | + + + | Faith Affiliation | 1041 | + + + | Race | Unknown | + + + | Ethnic Group | Unknown | + + + Author + + + | Author | [facility] | | | and [place] | + + + | Organization | [facility] | | | and [...] + | Sachin Dwyer | ECON | [address] | | | | | [place] | | + + + + + Care Team Providers + +------+ + | Care Astro Technician Name | Role | Phone | [...] + + | CHF (congestive heart failure) ([facility]) | | + + + + + | Overview: Echocardiogram done at [facility] on 01/28/18 | | shows overall left [...] + +---+ | Type 2 diabetes mellitus ([facility]) | | + +---+ | Asthma | | + +---+ | Heart disease | | + +---+ | Myocardial infarction ([facility]) | | + +---+ | CVA (cerebral vascular accident) ([facility]) | | + +---+ | Hypertension [...] | | | | | | unspecified [place] type, | | | | | | [...] whether | | | | | | [place] or | | | | | | [...] | | | | | [place] [address] | | | | | | [phone] | | | | | | | [...] VASQUEZ MD | | | | | ([id number]) on 03/04/2018 | | | | | [...] | [employer] | [employer] | [id number] | [employer] | [phone] | | | MEDICAID HMO | HEALTH [...] | Self | [birth year] | Home: | [address] | | | al/Fam | | [phone] | [place] [address] | | | jeni | | | [phone] | | + +--------+ +--------+ + +
--- OUTSIDE RECORDS SUMMARY | ~2018-04-15 | XMS | Encounter Summary ---
Demographics + + + | Address | [address] | | | [place] [address] | + + + | Home Phone [...] | Author | [facility] | | | and [place] | + + + | Organization | [facility] | | | and [place] | [...] + | Sachin Dwyer | ECON | [address] | | | | | [place] | | + + + + + Care Team Providers + +------+ + | Care Service Team Leader Name | Role | Phone | + [...] | | | | (congestive | PA-C [address] | [address] | | | | | heart | [place] | [place], | | | | | failure) | WAY | [place] | | | | | (HCC) | [place], | [address] | | | | | Procedures | [place] [address] | Phone: | | | | | BANKING TEACHER 02/11 > | Phone: | [phone] | | | | | PENDING DOS | [phone] | Fax: | | | | | | Fax: | [phone] | | | | | | [phone] | | +--------+--------+ + + + + Encounter Details +--------+---------+ + + + | Date | Type | Department | Care Team | Description | +--------+---------+ + + + | 03/03/ | Office | [facility] | Сергей Vasquez | Congestive heart | | 2018 | Visit | CARDIOLOGY [address] | MD [place] [address] | failure, unspecified | | | | [place], | [address] [place] | HF chronicity, | | | | [place] [address] | [place] [address] | unspecified heart | | | | [phone] | [phone] | failure type (HCC) | | | [...] whether | | | | | | wrangell or | | | | | | [...] procedure. 6. Make sure you have a personal driver to take you home. Your personal driver will also need to sign you [...] hospital line at and ask for nursing glazing department supervisor t o let them know you [...] 1.0 % Final I reviewed records from [facility] for hospitalization,including H&P, Discharge S [place] [...] made to ensure accuracy; however, inadvertent computerized edger technician errors may be pre sent. Electronically signed by: Kyler Vasquez MD PhD [facility] 03/03/2018 in this encounter Plan of Treatment +--------+---------+ + + + | Date | Type | Specialty | Care Team | Description | +--------+---------+ + + + | 05/13/ | Office | Cardiology | Сергей Vasquez | | | 2017 | Visit | | MD [place] [address] | | | | | | [address] | | | | | | [place] [address] | | | | | | [phone] | | | | | | | [...] unspecified whether | | | | | wrangell or | | | | | transplanted [...] unspecified whether | | | | | wrangell or | | | | | transplanted [...] unspecified whether | | | | | wrangell or | | | | | transplanted [...] VASQUEZ MD | | | | | ([id number]) on 03/04/2018 | | | | | [...] or lesion | | type, unspecified whether wrangell or transplanted heart | + +
--- OUTSIDE RECORDS SUMMARY | ~2018-04-15 | XMS | Encounter Summary ---
Demographics + + + | Address | [address] | | | [place] [address] | + + + | Home Phone | | + + + | Preferred Language | Unknown | + + + | Marital Status | | + + + | Adventism Affiliation | 1041 | + + + | Race | Unknown | + + + | Ethnic Group | Unknown | + + + Author + + + | Author | [facility] | | | and [place] | + + + | Organization | [facility] | | | and [...] + | Sachin Dwyer | ECON | [address] | | | | | [place] | | + + + + + Care Team Providers + +------+ + | Care Environmental Remediation Engineer Name | Role | Phone | [...] [address] | | | | | [place], | [address] [place] | | | | | [place] [address] | [place] [address] | | | | | [phone] | [phone] | | | | | | | [...] | 05/13/ | Office | Cardiology | Сергйе Gaitan | | | 2017 | Visit | | MD [place] [address] | | | | | | [address] [place] | | | | | | [place] [address] | | | | | | [phone] | | | | | | | [...]
--- OUTSIDE RECORDS SUMMARY | ~2018-04-15 | XMS | Clinical Summary ---
Demographics + + + | Address | [address] | | | [place] [address] | + + + | Home Phone | | + + + | Preferred Language | Unknown | + + + | Marital Status | | + + + | Latter-Day Affiliation | Unknown | + + + [...] [address] | | | | | [address] | | + + + + + Care Team Providers + +------+ + | Care Motor Tester Name | Role | Phone | + +------+ + PP | Unavailable | + +------+ + Source Comments [facility] is fully live on both [facility] Ambulatory and [facility] InPatient.[facility] Allergies Not on File Current Medications Not [...]
--- OUTSIDE RECORDS SUMMARY | ~2018-04-15 | XMS | Encounter Summary ---
Demographics + + + | Address | [address] | | | [place] [address] | + + + | Home Phone | | + + + | Preferred Language | Unknown | + + + | Marital Status | | + + + | Presybeterian Affiliation | 1041 | + + + | Race | Unknown | + + + | Ethnic Group | Unknown | + + + Author + + + | Author | [facility] | | | and [place]nie[place] | + + + | Organization | [facility] | | | and [...] + | Sachin Dwyer | ECON | [address] | | | | | [place] | | + + + + + Care Team Providers + +------+ + | Care System Development Manager Name | Role | Phone [...] | | | | | [address] | | | | | | [place], [place] | | | | | | [address] | | | | | | [phone] | | | +--------+ + + + [...] | | | | | [place] [address] | | | | | | [phone] | | | | | | | | +--------+---------+ + + + as of this encounter Visit Diagnoses Not on filein this encounter"
--- OUTSIDE RECORDS SUMMARY | ~2018-04-15 | XMS | Encounter Summary ---
Demographics + + + | Address | [address] | | | [place] [address] | + + + | Home Phone | | + + + | Preferred Language | Unknown | + + + | Marital Status | | + + + | Lutheran Affiliation | 1041 | + + + | Race | Unknown | + + + | Ethnic Group | Unknown | + + + Author + + + | Author | [facility] | | | and Lonnieana | + + + | Organization | [facility] | | | and [...] + | Sachin Dwyer | ECON | [address] | | | | | [place] | | + + + + + Care Team Providers + +------+ + | Care Heavy Equipment Service Technician Name | Role | Phone | [...] | | | | (congestive | PA-C [address] | [address] | | | | | heart | CONFEDERATED | [place], | | | | | failure) | WAY | [place] | | | | | (HCC) | [place], | [address] | | | | | Procedures | [place] [address] | Phone: | | | | | DIRECTOR TRANSLATION 02/11 > | Phone: | [phone] | | | | | PENDING DOS | [phone] | Fax: | | | | | | Fax: | [phone] | | | | | | [phone] | | +--------+--------+ + + + + Encounter Details +--------+---------+ + + + | Date | Type | Department | Care Team | Description | +--------+---------+ + + + | 03/03/ | Office | [facility] | Сергей Vasquez | Congestive heart | | 2018 | Visit | CARDIOLOGY [address] | MD [place] [address] | failure, unspecified | | | | [address] [place], | [address] [place] | HF chronicity, | | | | [place] [address] | [place] [address] | unspecified heart | | | | [phone] | [phone] | failure type (HCC) | | | [...] whether | | | | | | [place] or | | | | | | [...] procedure. 6. Make sure you have a mail truck driver to take you home. Your mail truck driver will also need to sign [...] line at and ask for nursing supervisor shipping room t o let them know you [...] 1.0 % Final I reviewed records from [facility] for hospitalization,including H&P, Discharge S [...] made to ensure accuracy; however, inadvertent computerized carding supervisor errors may be pre sent. Electronically signed by: Kyler Vasquez MD PhD [facility] 03/03/2018 in this encounter Plan of [...] | | | | | | [place] [address] | | | | | | [phone] | | | | | | | [...] unspecified whether | | | | | eastern [place] or | | | | | transplanted [...] unspecified whether | | | | | eastern [place] or | | | | | transplanted [...] unspecified whether | | | | | eastern [place] or | | | | | transplanted [...] VASQUEZ MD | | | | | ([id number]) on 03/04/2018 | | | | | [...] or lesion | | type, unspecified whether eastern [place] or transplanted heart | + +
--- OUTSIDE RECORDS SUMMARY | ~2018-04-15 | XMS | Clinical Summary ---
Demographics + + + | Address | [address] | | | [place] [address] | + + + | Home Phone | | + + + | Preferred Language | Unknown | + + + | Marital Status | | + + + | Cheondoism Affiliation | Unknown | + + + [...] [place] | | | | | [address] | | + + + + + Care Team Providers + +------+ + | Care Operations Accountant Name | Role | Phone | + +------+ + PP | Unavailable | + +------+ + Source Comments CHELY is fully live on both [facility] and [facility] Allergies Not on File Current Medications [...]
--- OUTSIDE RECORDS SUMMARY | ~2018-04-15 | XMS | Clinical Summary ---
Demographics + + + | Address | [address] | | | [place] [address] | + + + | Home Phone | | + + + | Preferred Language | Unknown | + + + | Marital Status | | + + + | Latter-Day Affiliation | 1041 | + + + | Race | Unknown | + + + | Ethnic Group | Unknown | + + + Author + + + | Author | [facility] | | | and [place]nie[place] | + + + | Organization | [facility] | | | and [...] + | Sachin Dwyer | ECON | [address] | | | | | [place] | | + + + + + Care Team Providers + +------+ + | Care Shagger Name | Role | Phone | + [...] + + | CHF (congestive heart failure) ([facility]) | | + + + + + | Overview: Echocardiogram done at [facility] on 01/28/18 | | shows overall left [...] + +---+ | Type 2 diabetes mellitus ([facility]) | | + +---+ | Asthma | | + +---+ | Heart disease | | + +---+ | Myocardial infarction ([facility]) | | + +---+ | CVA (cerebral vascular accident) ([facility]) | | + +---+ | Hypertension [...] whether | | | | | | lower [place] or | | | | | | [...] | | | | | [place] [address] | | | | | | [phone] | | | | | | | [...] VASQUEZ MD | | | | | ([id number]) on 03/04/2018 | | | | | [...] | [employer] | MODA | [id number] | Medica | [phone] | | | MEDICAID HMO | HEALTH [...] | Self | [birth year] | Home: | [address] | | | al/Fam | | 7 | [phone] | [place] [address] | | | jeni | | | [address] | | + +--------+ +--------+ + +
[~2018-04-15 22:01] MED LIST changes: +ALBUTEROL2.5 MG/3 M INH; +ATORVASTATIN CA10 MG PO; +CARVEDILOL6.25 MG PO; +DOXYCYCLINE HYC50 MG PO; +LISINOPRIL10 MG PO; +MELATONIN1 MG PO; +VISTARIL25 MG PO
== END 2018-04-16 01:29 | disposition home or self-care (01) ==
LOC: ED 22:01
DX: R10.9 Unspecified abdominal pain (principal); R80.9 Proteinuria, unspecified; E11.9 Type 2 diabetes mellitus without complications; J45.909 Unspecified asthma, uncomplicated; I50.9 Heart failure, unspecified; Z87.891 Personal history of nicotine dependence; Z88.8 Allergy status to other drugs, medicaments and biological substances; Z79.4 Long term (current) use of insulin; Z79.899 Other long term (current) drug therapy
CPT/HCPCS: 81001; 96372; 99283; J1885

== ENCOUNTER 2018-04-19 08:46 | Emergency (ER) | payer OTHER ==
[~2018-04-19] VITALS: Ht 160 cm; Wt 79.8 kg
--- OUTSIDE RECORDS SUMMARY | ~2018-04-19 | XMS | Clinical Summary ---
Demographics + + + | Address | [address] | | | [place] [address] | + + + | Home Phone | | + + + | Preferred Language | Unknown | + + + | Marital Status | | + + + | Moravian Affiliation | Unknown | + + + | Race | or | + + + | Ethnic Group | Not or | + + + Author + + + | Organization | Unknown | + + + | Address | Unknown | + + + | Phone | Unavailable | + + + Support + + + + + | Name | Relationship | Address | Phone | + + + + + | LIVAN CHAVEZ | [place] | [address] | | | | | [place] | | | | | [address] | | + + + + + Care Team Providers + +------+ + | Care On Site Soil Evaluator Name | Role | Phone | + +------+ + PP | Unavailable | + +------+ + Source Comments CHELY is fully live on both [facility] and [facility] InPatient.[facility] Allergies Not on File Current Medications Not on file Active Problems Not on file Social History + +-------+ +--------+------+ | Tobacco [...] on file | | + + + Plan of Treatment + + + + + | Health Maintenance | Due Date | Last Done | Comments | + + + + + | INFLUENZA VACCINE | | | | | (FLU SHOT) | 8 | | | + + + + + Results Not on filefrom Last 3 Months"
--- OUTSIDE RECORDS SUMMARY | ~2018-04-19 | XMS | Encounter Summary ---
Demographics + + + | Address | [address] | | | [place] [address] | + + + | Home Phone | | + + + | Preferred Language | Unknown | + + + | Marital Status | | + + + | Denominational Affiliation | 1041 | + + + | Race | Unknown | + + + | Ethnic Group | Unknown | + + + Author + + + | Author | [facility] | | | and [place]nie[place] | + + + | Organization | [facility] | | | and [place] [...] + | Sachin Dwyer | ECON | [address] | | | | | [place] | | + + + + + Care Team Providers + +------+ + | Care Factory Process Workers Name | Role | Phone | + [...] | failure, unspecified | | | | [place], | [address] [place] | HF chronicity, | | | | [place] [address] | [place] [address] | unspecified heart | | | | [phone] | [phone] | failure type (HCC) | | | [...] | | | | | [place] [address] | | | | | | [phone] | | | | | | | [...]
--- OUTSIDE RECORDS SUMMARY | ~2018-04-19 | XMS | Clinical Summary ---
Demographics + + + | Address | [address] | | | [place] [address] | + + + | Home Phone | | + + + | Preferred Language | Unknown | + + + | Marital Status | | + + + | Sikh Affiliation | 1041 | + + + | Race | Unknown | + + + | Ethnic Group | Unknown | + + + Author + + + | Author | [facility] | | | and [place] | + + + | Organization | [facility] | [...] + | Sachin Dwyer | ECON | [address] | | | | | [place] | | + + + + + Care Team Providers + +------+ + | Care Nuclear Plant Equipment Operator Name | Role | Phone | [...] + + | CHF (congestive heart failure) ([facility]) | | + + + + + | Overview: Echocardiogram done at [facility] on 01/28/18 | | shows overall left [...] + +---+ | Type 2 diabetes mellitus ([facility]) | | + +---+ | Asthma | | + +---+ | Heart disease | | + +---+ | Myocardial infarction ([facility]) | | + +---+ | CVA (cerebral vascular accident) ([facility]) | | + +---+ | [...] | | | | | | unspecified [place] type, | | | | | | [...] whether | | | | | | match-e-be-nash-she-wish band or | | | | | | [...] | | | | | | [place] [address] | | | | | | [phone] | | | | | | | [...] VASQUEZ MD | | | | | ([id number]) on 03/04/2018 | | | | | [...] | [employer] | MODA | [id number] | Medica | [phone] | | | MEDICAID HMO | HEALTH | | id | 9821 | | | | MDCD | | | | | | | [place] | | | | | + +--------+ +--------+ +---------+ | [facility] | IHS | [id number] | Indemn | | | | SERVICE [...] | Self | [birth year] | Home: | [address] | | | al/Fam | | 1955 | [phone] | [place] [address] | | | jeni | | | [address] | | + +--------+ +--------+ + +
--- OUTSIDE RECORDS SUMMARY | ~2018-04-19 | XMS | Encounter Summary ---
Demographics + + + | Address | [address] | | | [place] [address] | + + + | Home Phone | | + + + | Preferred Language | Unknown | + + + | Marital Status | | + + + | Hoahaoism Affiliation | 1041 | + + + | Race | Unknown | + + + | Ethnic Group | Unknown | + + + Author + + + | Author | [facility] | | | and [place] | + + + | Organization | [facility] | | | and [place] | + + + | Address | Unknown | + + + | Phone | Unavailable | + + + Support + + + + + | Name | Relationship | Address | Phone | + + + + + | ABBEY COX ECON | Unknown | | + + + + + | Sachni Dwyer | ECON | [address] | | | | | [place] | | + + + + + Care Team Providers + +------+ + | Care Clinical Pharmacy Manager Name | Role | Phone | [...] Closed | | Cardiology | Diagnoses | [place], | [facility] | | | | | CHF | Bernadette Shankar, | Cardiology | | | | | (congestive | PA-C [address] | [address] | | | | | heart | CONFEDERATED | [place], | | | | | failure) | WAY | [place] | | | | | (HCC) | [place], | [address] | | | | | Procedures | [place] [address] | Phone: | | | | | REAL ESTATE ACCOUNT EXECUTIVE 02/11 > | Phone: | [phone] | | | | | PENDING DOS | [phone] | Fax: | | | | | | Fax: | [phone] | | | | | | [phone] | | +--------+--------+ + + + + Encounter Details +--------+---------+ + + + | Date | Type | Department | Care Team | Description | +--------+---------+ + + + | 03/03/ | Office | [facility] | Сергей Vasquez | Congestive heart | | 2018 | Visit | CARDIOLOGY [address] | MD [place] [address] | failure, unspecified | | | | [place], | [address] [place] | HF chronicity, | | | | [place] [address] | [place] [address] | unspecified heart | | | | [phone] | [phone] | failure type (HCC) | | | | | | (Primary Dx); | | | | | | Myocardial | | | | | | infarction, | | | | | | unspecified [place] type, | | | | | | [...] whether | | | | | | [place] or | | | | | | [...] procedure. 6. Make sure you have a flatbed truck driver to take you home. Your flatbed truck driver will also need to sign you [...] hospital line at and ask for nursing airplane flight attendant supervisor t o let them know you are cancelling . Follow up appointment in Cardiology: 2 months Provider: Kyler Vasquez MD Date: Check-in time: in this encounter Progress Notes Сергей Vasquez MD - 03/03/2018 1100 PDTFormatting of this note may be different fro m the original. PATIENT NAME: Maria Ines Cox : 1955: AGE: 63 y.o. REFERRED BY: Bernadette Armendariz PRIMARY CARE: Bernadette Armendairz PA-C CARDIOLOGY OFFICE VISIT Date of Service: [...] 1.0 % Final I reviewed records from [facility] for hospitalization,including H&P, Discharge [place] and [...] made to ensure accuracy; however, inadvertent computerized service architect errors may be pre sent. Electronically signed by: Kyler Vasquez MD PhD [facility] 03/03/2018 in this encounter Plan of Treatment +--------+---------+ + + + | Date | Type | Specialty | Care Team | Description | +--------+---------+ + + + | 05/13/ | Office | Cardiology | Сергей Vasquez | | | 2017 | Visit | | MD [place] [address] | | | | | | [address] | | | | | | [place] [address] | | | | | | [phone] | | | | | | | [...] unspecified whether | | | | | [place] or | | | | | transplanted [...] unspecified whether | | | | | [place] or | | | | | transplanted [...] unspecified whether | | | | | [place] or | | | | | transplanted [...] VASQUEZ MD | | | | | ([id number]) on 03/04/2018 | | | | | [...] | + + | Myocardial infarction, unspecified [place] type, unspecified artery (HCC) | + + | Cerebrovascular accident (CVA), unspecified mechanism (HCC) | + + | Hypertension, unspecified type | + + | Heart disease | + + | Heart disease, unspecified | + + | Tobacco use disorder | + + | Coronary artery disease, angina presence unspecified, unspecified vessel or lesion | | type, unspecified whether [place] or transplanted heart | + +
--- OUTSIDE RECORDS SUMMARY | ~2018-04-19 | XMS | Encounter Summary ---
Demographics + + + | Address | [address] | | | [place] [address] | + + + | Home Phone | | + + + | Preferred Language | Unknown | + + + | Marital Status | | + + + | Jain Affiliation | 1041 | + + + | Race | Unknown | + + + | Ethnic Group | Unknown | + + + Author + + + | Author | [facility] | | | and [place] | + + + | Organization | [facility] | | | and [place] | [...] + | Sachin Dwyer | ECON | [address] | | | | | [place] | | + + + + + Care Team Providers + +------+ + | Care Outreach Clinician Name | Role | Phone | + [...] + + | 03/10/ | Telephone | [facility] | Сергей Gaitan | Other (procedure | | 2017 | | [address] | MD [place] [address] | cancellation) | | | | [place], | [address] [place] | | | | | [place] [address] | [place] [address] | | | | | [phone] | [phone] | | | | | | | [...] | | | | | [place] [address] | | | | | | [phone] | | | | | | | | +--------+---------+ + + + as of this encounter Visit Diagnoses Not on filein this encounter"
--- OUTSIDE RECORDS SUMMARY | ~2018-04-19 | XMS | Encounter Summary ---
Demographics + + + | Address | [address] | | | [place] [address] | + + + | Home Phone | | + + + | Preferred Language | Unknown | + + + | Marital Status | | + + + | Scientology Affiliation | 1041 | + + + | Race | Unknown | + + + | Ethnic Group | Unknown | + + + Author + + + | Author | [facility] | | | and [place] | + + + | Organization | [facility] | | | and [place] | [...] + | Sachin Dwyer | ECON | [address] | | | | | [place] | | + + + + + Care Team Providers + +------+ + | Care Shipper Receiver Name | Role | Phone | + +------+ + | Bernadette Armendariz PA-C | PCP | | + +------+ + Encounter Details +--------+ + + + + | Date | Type | Department | Care Team | Description | +--------+ + + + + | 03/11/ | Procedure | [facility] | | | | 2017 | Pass | [facility] | | | | | | [address] | | | | | | [place], [place] | | | | | | [address] | | | | | | [phone] | | | +--------+ + + + [...] | | | | | [place] [address] | | | | | | [phone] | | | | | | | | +--------+---------+ + + + as of this encounter Visit Diagnoses Not on filein this encounter"
--- OUTSIDE RECORDS SUMMARY | ~2018-04-19 | XMS | Encounter Summary ---
Demographics + + + | Address | [address] | | | [place] [address] | + + + | Home Phone | | + + + | Preferred Language | Unknown | + + + | Marital Status | | + + + | Nondenominational Affiliation | 1041 | + + + | Race | Unknown | + + + | Ethnic Group | Unknown | + + + Author + + + | Author | [facility] | | | and [place] | + + + | Organization | [facility] | | | and [place] [...] + | Sachin Dwyer | ECON | [address] | | | | | [place] | | + + + + + Care Team Providers + +------+ + | Care Packer Fuser Name | Role | Phone | + [...] [address] | | | | | [place], | [address] [place] | | | | | [place] [address] | [place] [address] | | | | | [phone] | [phone] | | | | | | | [...] [place] | | | | | | [place] [address] | | | | | | [phone] | | | | | | | [...]
--- OUTSIDE RECORDS SUMMARY | ~2018-04-19 | XMS | Encounter Summary ---
Demographics + + + | Address | [address] | | | [place] [address] | + + + | Home Phone | | + + + | Preferred Language | Unknown | + + + | Marital Status | | + + + | Sabianism Affiliation | 1041 | + + + | Race | Unknown | + + + | Ethnic Group | Unknown | + + + Author + + + | Author | [facility] | | | and [place] | + + + | Organization | [facility] | | | and [place] [...] + | Sachin Dwyer | ECON | [address] | | | | | [place] | | + + + + + Care Team Providers + +------+ + | Care Classification Officer Name | Role | Phone | [...] + + | 03/10/ | Telephone | [facility] | Сергей Gaitan | Other (procedure | | 2017 | | [address] | MD [place] [address] | cancellation) | | | | [place], | [address] [place] | | | | | [place] [address] | [place] [address] | | | | | [phone] | [phone] | | | | | | | [...] | | | | | [place] [address] | | | | | | [phone] | | | | | | | | +--------+---------+ + + + as of this encounter Visit Diagnoses Not on filein this encounter"
--- OUTSIDE RECORDS SUMMARY | ~2018-04-19 | XMS | Encounter Summary ---
Demographics + + + | Address | [address] | | | [place] [address] | + + + | Home Phone | | + + + | Preferred Language | Unknown | + + + | Marital Status | | + + + | Muslim Affiliation | 1041 | + + + | Race | Unknown | + + + | Ethnic Group | Unknown | + + + Author + + + | Author | [facility] | | | and [place] | + + + | Organization | [facility] | | | and [place] [...] + | Sachin Dwyer | ECON | [address] | | | | | [place] | | + + + + + Care Team Providers + +------+ + | Care Statement Clerks Supervisor Name | Role | Phone | [...] | | | | (congestive | PA-C [address] | [address] | | | | | heart | CONFEDERATED | [place], | | | | | failure) | WAY | [place] | | | | | (HCC) | [place], | [address] | | | | | Procedures | [place] [address] | Phone: | | | | | MAPLE PRODUCTS SUPERVISOR 02/11 > | Phone: | [phone] | | | | | PENDING DOS | [phone] | Fax: | | | | | | Fax: | [phone] | | | | | | [phone] | | +--------+--------+ + + + + Encounter Details +--------+---------+ + + + | Date | Type | Department | Care Team | Description | +--------+---------+ + + + | 03/03/ | Office | [facility] | Сергей Vasquez | Congestive heart | | 2018 | Visit | CARDIOLOGY [address] | MD [place] [address] | failure, unspecified | | | | [place], | [address] [place] | HF chronicity, | | | | [place] [address] | [place] [address] | unspecified heart | | | | [phone] | [phone] | failure type (HCC) | | | [...] whether | | | | | | [place] or | | | | | | [...] procedure. 6. Make sure you have a crew car driver to take you home. Your crew car driver will also need to sign you [...] line at and ask for nursing supervisor concrete stone fabricating t o let them know you are [...] 1.0 % Final I reviewed records from [facility] for hospitalization,including H&P, Discharge S [place] and [...] made to ensure accuracy; however, inadvertent computerized medical technologist microbiology errors may be pre sent. Electronically signed by: Kyler Vsaquez MD PhD [facility] 03/03/2018 in this encounter Plan of [...] | | | | | | [place] [address] | | | | | | [phone] | | | | | | | [...] unspecified whether | | | | | [place]uy[place] or | | | | | transplanted [...] unspecified whether | | | | | [place]uy[place] or | | | | | transplanted [...] unspecified whether | | | | | [place]uy[place] or | | | | | transplanted [...] VASQUEZ MD | | | | | ([id number]) on 03/04/2018 | | | | | [...] or lesion | | type, unspecified whether [place]aguy[place] or transplanted heart | + +
--- OUTSIDE RECORDS SUMMARY | ~2018-04-19 | XMS | Clinical Summary ---
Demographics + + + | Address | [address] | | | [place] [address] | + + + | Home Phone [...] [address] | | | | | [address] | | + + + + + Care Team Providers + +------+ + | Care Legal Researcher Name | Role | Phone | + +------+ + PP | Unavailable | + +------+ + Source Comments CHELY is fully live on both [facility] and [facility] InPatient.[facility] Allergies Not on File Current Medications Not [...]
--- OUTSIDE RECORDS SUMMARY | ~2018-04-19 | XMS | Encounter Summary ---
Demographics + + + | Address | [address] | | | [place] [address] | + + + | Home Phone | | + + + | Preferred Language | Unknown | + + + | Marital Status | | + + + | Hinduism Affiliation | 1041 | + + + | Race | Unknown | + + + | Ethnic Group | Unknown | + + + Author + + + | Author | [facility] | | | and [place] | + + + | Organization | [facility] | | | and [...] + | Sachin Dwyer | ECON | [address] | | | | | [place] | | + + + + + Care Team Providers + +------+ + | Care Injection Molding Machine Setter Name | Role | Phone [...] | | | | | [address] | | | | | | [place], [place] | | | | | | [address] | | | | | | [phone] | | | +--------+ + + + [...] | | | | | [place] [address] | | | | | | [phone] | | | | | | | | +--------+---------+ + + + as of this encounter Visit Diagnoses Not on filein this encounter"
--- OUTSIDE RECORDS SUMMARY | ~2018-04-19 | XMS | Encounter Summary ---
Demographics + + + | Address | [address] | | | [place] [address] | + + + | Home Phone | | + + + | Preferred Language | Unknown | + + + | Marital Status | | + + + | Caodaism Affiliation | 1041 | + + + | Race | Unknown | + + + | Ethnic Group | Unknown | + + + Author + + + | Author | [facility] | | | and [place] | + + + | Organization | [facility] | | | and [place] | [...] + | Sachin Dwyer | ECON | [address] | | | | | [place] | | + + + + + Care Team Providers + +------+ + | Care Batter Depositor Name | Role | Phone | + [...] | failure, unspecified | | | | [address], | [address] [place] | HF chronicity, | | | | [place] [address] | [place] [address] | unspecified heart | | | | [phone] | [phone] | failure type (HCC) | | | [...] | | | | | [place] [address] | | | | | | [phone] | | | | | | | [...]
--- OUTSIDE RECORDS SUMMARY | ~2018-04-19 | XMS | Encounter Summary ---
Demographics + + + | Address | [address] | | | [place] [address] | + + + | Home Phone | | + + + | Preferred Language | Unknown | + + + | Marital Status | | + + + | Yazidism Affiliation | 1041 | + + + | Race | Unknown | + + + | Ethnic Group | Unknown | + + + Author + + + | Author | [facility] | | | and [place] | + + + | Organization | [facility] | | | and [place] [...] + | Sachin Dwyer | ECON | [address] | | | | | [place] | | + + + + + Care Team Providers + +------+ + | Care Registrar Museum Name | Role | Phone | + [...] [address] | | | | | [place], | [address] [place] | | | | | [place] [address] | [place] [address] | | | | | [phone] | [phone] | | | | | | | [...] [place] | | | | | | [place] [address] | | | | | | [phone] | | | | | | | [...]
--- OUTSIDE RECORDS SUMMARY | ~2018-04-19 | XMS | Clinical Summary ---
Demographics + + + | Address | [address] | | | [place] [address] | + + + | Home Phone | | + + + | Preferred Language | Unknown | + + + | Marital Status | | + + + | Anabaptism Affiliation | 1041 | + + + | Race | Unknown | + + + | Ethnic Group | Unknown | + + + Author + + + | Author | [facility] | | | and [place] | + + + | Organization | [facility] | | | and [place] | [...] + | Sachin Dwyer | ECON | [address] | | | | | [place] | | + + + + + Care Team Providers + +------+ + | Care Verify Rep Name | Role | Phone | + [...] | CHF (congestive heart failure) ([facility]) | | + + + + + | Overview: Echocardiogram done at [facility] on 01/28/18 | | shows overall left [...] | Type 2 diabetes mellitus ([facility]) | | + +---+ | Asthma | | + +---+ | Heart disease | | + +---+ | Myocardial infarction ([facility]) | | + +---+ | CVA (cerebral vascular accident) ([facility]) | | + +---+ | Hypertension | [...] | | | | | | unspecified DE type, | | | | | | [...] whether | | | | | | [place] or | | | | | | [...] | | | | | [place] [address] | | | | | | [phone] | | | | | | | [...] VASQUEZ MD | | | | | ([id number]) on 03/04/2018 | | | | | [...] | [employer] | MODA | [id number] | Medica | [phone] | | MEDICAID HMO | HEALTH | | id | 9821 | | | | MDCD | | | | | | | [place] | | | | | + +--------+ +--------+ +---------+ | [facility] | [employer]HS | [id number] | Indemn | | | | SERVICE [...] | Self | [birth year] Home: | [address] | | | al/Fam | | 1955 | [phone] | [place] [address] | | | jeni | | | [phone] | | + +--------+ +--------+ + +
--- OUTSIDE RECORDS SUMMARY | 2018-04-19 08:52 | XMS ---
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 Neo has no Care Guidelines for this patient. [facility] V[facility] (12 MO.) [facility] NOTE: Visits indicate total known visits. 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 03/08/2018 21:50 [facility] TYPE: Emergency COMPLAINT: - CHEST PAIN 02/10/2018 03:43 [facility] TYPE: Emergency COMPLAINT: - L FOOT PAIN/NON INJURY DIAGNOSES: - correction (current) use of aspirin - Pain in left ankle and joints of left foot - Personal history of nicotine dependence - Allergy status to other drugs, medicaments and biological substances status - correction (current) use of insulin - Insomnia, unspecified - Personal history of transient ischemic attack (TIA), and cerebral infarction without residual deficits - Type 2 diabetes mellitus with diabetic neuropathy, unspecified - Sedative, hypnotic or anxiolytic dependence with withdrawal, unspecified 01/31/2018 09:56 [facility] TYPE: Emergency COMPLAINT: - SOB DIAGNOSES: - correction (current) use of aspirin - Type 2 diabetes mellitus without complications - Shortness of breath - Heart failure, unspecified - 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
[2018-04-19] MEDS ORDERED: TORSEMIDE20 MG PO (09:07)
[2018-04-19] MEDS ORDERED: LISINOPRIL10 MG PO (09:07)
[2018-04-19] MEDS ORDERED: ZOFRAN4 MG PO (12:15)
[2018-04-19] MEDS ORDERED: FLAGYL500 MG PO (12:17)
== END 2018-04-19 12:25 | disposition home or self-care (01) ==
LOC: ED 08:46
DX: A09 Infectious gastroenteritis and colitis, unspecified (principal); E11.9 Type 2 diabetes mellitus without complications; J45.909 Unspecified asthma, uncomplicated; I25.2 Old myocardial infarction; I50.9 Heart failure, unspecified; Z86.73 Personal history of transient ischemic attack (TIA), and cerebral infarction without residual deficits; Z87.891 Personal history of nicotine dependence; Z88.8 Allergy status to other drugs, medicaments and biological substances; Z79.899 Other long term (current) drug therapy
CPT/HCPCS: 74176; 80053; 81001; 83690; 85025; 87045; 87046; 87177; 87205; 87209; 96361; 96374; 96375; 96376; 99284; J2270; J2405; J7040; J7120

== ENCOUNTER 2018-04-21 09:14 | Emergency (ER) | payer OTHER ==
[~2018-04-21] VITALS: Ht 160 cm; Wt 79.8 kg
--- OUTSIDE RECORDS SUMMARY | ~2018-04-21 | XMS | Encounter Summary ---
Demographics + + + | Address | [address] | | | [place] [address] | + + + | Home Phone | | + + + | Preferred Language | Unknown | + + + | Marital Status | | + + + | Christian Affiliation | 1041 | + + + | Race | Unknown | + + + | Ethnic Group | Unknown | + + + Author + + + | Author | [facility] | | | and [place] | + + + | Organization | [facility] | | | and [place] [...] + | Sachin Dwyer | ECON | [address] | | | | | [place] | | + + + + + Care Team Providers + +------+ + | Care Obstetrics/Gynecology Nurse Name | Role | Phone | + [...] Closed | | Cardiology | Diagnoses | [place], | [facility] | | | | | CHF | Bernadette Shankar, | Cardiology | | | | | (congestive | PA-C [address] | [address] | | | | | heart | [place] | [place], | | | | | failure) | WAY | [place] | | | | | (HCC) | [place], | [address] | | | | | Procedures | [place] [address] | Phone: | | | | | DELPHI DEVELOPER 02/11 > | Phone: | [phone] | | | | | PENDING DOS | [phone] | Fax: | | | | | | Fax: | [phone] | | | | | | [phone] | | +--------+--------+ + + + + Encounter Details +--------+---------+ + + + | Date | Type | Department | Care Team | Description | +--------+---------+ + + + | 03/03/ | Office | [facility] | Сергей Vasquez | Congestive heart | | 2018 | Visit | CARDIOLOGY [address] | MD [place] [address] | failure, unspecified | | | | [place], | [address] [place] | HF chronicity, | | | | [place] [address] | [place] [address] | unspecified heart | | | | [phone] | [phone] | failure type (HCC) | | | | | | (Primary Dx); | | | | | | Myocardial | | | | | | infarction, | | | | | | unspecified IA type, | | | | | | [...] whether | | | | | | [place] or | | | | | | [...] + + + as of this encounter Last Filed Vital Signs + + + + | Vital Sign | Reading | Time Taken | + + + + | Blood Pressure | 144/78 | 03/03/2018 1032 PDT | + + + + | Pulse | 65 | 03/03/2018 1032 PDT | + + [...] Height | 160 cm (5' 3") | 03/03/20181031 PDT | + + + + | Body Mass Index | 30.54 | 03/03/20181031 PDT | + + + + in this encounter Instructions Patient Instructions - Lynn Rodgers RN - 03/03/2018 1100 PDT Start lisinoril 10 mg daily Start atorvastatin 10 mg daily Blood test: Fasting- 12 hours prior to test, no food, no caffiene, water is ok Date Due: soon Where to go for labs: Lab of your choice, please see lab orders, take them with you to the lab. INSTRUCTIONS Maria Ines Cox 1955 Procedure: Left heart catheterization Day: Date: [...] procedure. 6. Make sure you have a moving van driver to take you home. Your moving van driver will also need to sign you [...] line at and ask for nursing supervisor long goods t o let them know you are cancelling . Follow up appointment in Cardiology: 2 months Provider: Kyler Vasquez MD Date: Check-in time: in this encounter Progress Notes Сергей Vasquez MD - 03/03/2018 1100 PDTFormatting of this note may be different fro m the original. PATIENT NAME: Maria Ines Cox : 1955: AGE: 63 y.o. REFERRED BY: Bernadette Armendariz PRIMARY CARE: Bernadette Armendariz PA-C CARDIOLOGY OFFICE VISIT Date of Service: 03/03/18 HISTORY OF PRESENT ILLNESS: Maria Ines Cox is a 63 y.o. female with a history of tobacco and methamphetamine use, poorly c ontrolled diabetes, systolic and diastolic heart failure, and possible CAD. She is being se en today for further consultation. She is referred by Bernadette Armendariz for further evaluation after recent hospitalization wh ere she was diagnosed with acute on chronic systolic and diastolic heart failure. Patient h as had a long-standing history of tobacco [...] 4.7 Final Albumin/Globulin Ratio 01/27/2018 0.5 Final MCH 01/27/2018 27.0 26.0 - 33.0 pg Final MCHC 01/27/2018 33.0 30.0 - 36.0 % Final BASOPHILS % 01/27/2018 0.3 1.0 % Final I reviewed records from [facility] for hospitalization,including H&P, Discharge [place] and lab reports on 01/27/18 and 01/31/18. [...] made to ensure accuracy; however, inadvertent computerized soundscriber mechanic errors may be pre sent. Electronically signed by: Kyler Vasquez MD PhD [facility] 03/03/2018 in this encounter Plan of Treatment +--------+---------+ + + + | Date | Type | Specialty | Care Team | Description | +--------+---------+ + + + | 05/13/ | Office | Cardiology | Сергей Vasquez | | | 2017 | Visit | | MD [place] [address] | | | | | | [address] | | | | | | [place] [address] | | | | | | [phone] | | | | | | | | +--------+---------+ + + + + +--------+ + + | Name | Priori | Associated Diagnoses | Order Schedule | | | ty | | | + +--------+ + + | Comprehensive Metabolic Panel | Routin | Congestive heart | Expected: | | | e | failure, unspecified | 03/03/2018, Expires: | | | | HF chronicity, | 03/03/2019 | | | | unspecified heart | | | | | failure type (HCC) | | | | | Coronary artery | | | | | disease, angina | | | | | presence | | | | | unspecified, | | | | | unspecified vessel | | | | | or lesion type, | | | | | unspecified whether | | | | | [place] or | | | | | transplanted heart | | + +--------+ + + | Lipid Panel | Routin | Coronary artery | Expected: | | | e | disease, angina | 03/03/2018, Expires: | | | | presence | 03/03/2019 | | | | unspecified, | | | | | unspecified vessel | | | | | or lesion type, | | | | | unspecified whether | | | | | [place] or | | | | | transplanted heart | | + +--------+ + + | B Type Natriuretic Peptide | Routin | Congestive heart | Expected: | | | e | failure, unspecified | 03/03/2018, Expires: | | | | HF chronicity, | 03/03/2019 | | | | unspecified heart | | | | | failure type (HCC) | | | | | Coronary artery | | | | | disease, angina | | | | | presence | | | | | unspecified, | | | | | unspecified vessel | | | | | or lesion type, | | | | | unspecified whether | | | | | [place] or | | | | | transplanted heart | | + +--------+ + + as of this encounter Procedures [...] | | + +--------+ + + + in this encounter Results ECG 12 lead (03/03/2018 1048) + + + + + | Component | Value | Ref Range | Performed At | + + + + + | VENTRICULAR RATE EKG | 65 | BPM | [facility] | + + + + + | ATRIAL RATE | 65 | BPM | [facility] | + + + + + | P-R INTERVAL | 178 | ms | [facility] | + + + + + | QRS DURATION | 86 | ms | [facility] | + + + + + [...] VASQUEZ MD | | | | | ([id number]) on 03/04/2018 | | | | | [...] | | | + +---------+ + + in this encounter Visit Diagnoses + + | Diagnosis | + + | Congestive heart failure, unspecified HF chronicity, unspecified heart failure type | | (HCC) - Primary | + + | Myocardial infarction, unspecified IA type, unspecified artery (HCC) | + + | Cerebrovascular accident (CVA), unspecified mechanism (HCC) | + + | Hypertension, unspecified type | + + | Heart disease | + + | Heart disease, unspecified | + + | Tobacco use disorder | + + | Coronary artery disease, angina presence unspecified, unspecified vessel or lesion | | type, unspecified whether [place] or transplanted heart | + +
--- OUTSIDE RECORDS SUMMARY | ~2018-04-21 | XMS | Encounter Summary ---
Demographics + + + | Address | [address] | | | [place] [address] | + + + | Home Phone | | + + + | Preferred Language | Unknown | + + + | Marital Status | | + + + | Mormon Affiliation | 1041 | + + + | Race | Unknown | + + + | Ethnic Group | Unknown | + + + Author + + + | Author | [facility] | | | and [place] | + + + | Organization | [facility] | | | and [...] + | Sachin Dwyer | ECON | [address] | | | | | [place] | | + + + + + Care Team Providers + +------+ + | Care Mri Technologist Name | Role | Phone | + [...] + + | 03/10/ | Telephone | [facility] | Сергей Gaitan | Other (procedure | | 2017 | | [address] | [place] [address] | cancellation) | | | | [place], | [address] [place] | | | | | [place] [address] | [place] [address] | | | | | [phone] | [phone] | | | | | | | [...] | | | | | [place] [address] | | | | | | [phone] | | | | | | | | +--------+---------+ + + + as of this encounter Visit Diagnoses Not on filein this encounter"
--- OUTSIDE RECORDS SUMMARY | ~2018-04-21 | XMS | Clinical Summary ---
Demographics + + + | Address | [address] | | | [place] [address] | + + + | Home Phone | | + + + | Preferred Language | Unknown | + + + | Marital Status | | + + + | Jew Affiliation | 1041 | + + + | Race | Unknown | + + + | Ethnic Group | Unknown | + + + Author + + + | Author | [facility] | | | and [place] | + + + | Organization | [facility] | | | and [place] | [...] + | Sachin Dwyer | ECON | [address] [address] | | | | | [place] | | + + + + + Care Team Providers + +------+ + | Care Business Services Officer Name | Role | Phone | [...] tablet by | 90 | 1 | 08 | | Activ | | (PRINIVIL, ZESTRIL) | mouth Daily. | tablet | | 3/20 | | e | | 10 mg tablet | | | | 18 | | | + + +--------+---------+------+------+-------+ Active Problems + + + | Problem | Noted Date | + + + | CHF (congestive heart failure) ([facility]) | | + + + + + | Overview: Echocardiogram done at [facility] on 01/28/18 | | shows overall left [...] + +---+ | Type 2 diabetes mellitus ([facility]) | | + +---+ | Asthma | | + +---+ | Heart disease | | + +---+ | Myocardial infarction ([facility]) | | + +---+ | CVA (cerebral vascular accident) ([facility]) | | + +---+ | Hypertension | | + +---+ Encounters +--------+ + + + + | Date | Type | Specialty | Care Team | Description | +--------+ + + + + | 03/20/ | Abstract | | Сергей Vasquez | | | 2017 | | | MD Don | | +--------+ + + + + | 03/11/ | Procedure | | | | | 2017 | Pass | | | | +--------+ + + + + | 03/10/ | Telephone | | Сергей Vasquez | Other (procedure | | 2017 | | | MD Don | cancellation) | +--------+ + + + + | 03/03/ | Office | | Сергей Vasquez | Congestive heart | | 2017 | Visit | | MD Don | [...] whether | | | | | | [place] or | | | | | | [...] + | Blood Pressure | 144/78 | 03/03/20181031 PDT | + + + [...] 03/03/20181031 PDT | + + + + Plan [...] | | | | | | [place] [address] | | | | | | [phone] | | | | | | | [...] this | | DIOXIDE | e | 0000 PDT | | procedure are in the | | | | | | results section. | + +--------+ + + + | EXTERNAL LAB: | Routin | 03/19/2018 | | Results for this | | CHLORIDE | e | 0000 PDT | | procedure are in the | | | | | | results section. | + +--------+ + + + | EXTERNAL LAB: | Routin | 03/19/2018 | | Results for this | | POTASSIUM | e | 0000 PDT | | [...] this | | TRIGLYCERIDES | e | 0000 PDT | | procedure are in the | | | | | | results section. | + +--------+ + + + | EXTERNAL LAB: | Routin | 03/19/2018 | | Results for this | | CHOLESTEROL, HDL | e | 0000 PDT | | procedure are in the | | | | | | results section. | + +--------+ + + + | EXTERNAL LAB: | Routin | 03/19/2018 | | Results for this | | CHOLESTEROL, TOTAL | e | 0000 PDT | [...] +--------+ + + + | EXTERNAL LAB: COLE | Routin | 01/31/2018 | | Results [...] from Last 3 Months Results External Lab: BUN (03/19/2018) + +--------+ + + | Component | Value | Ref Range | Performed At | + +--------+ + + | BUN, External | 42 (A) | 8 - 25 | | + +--------+ + + External Lab: Glucose (03/19/2018)Only the most recent of 3 results within the time period is included. + +---------+ + + | Component | Value | Ref Range | Performed At | + +---------+ + + | Glucose, External | 153 (A) | 65 - 99 | | + +---------+ + + External Lab: ALT (03/19/2018)Only the most recent of 3 results within the time period is i ncluded. + +-------+ + + | Component | Value | Ref Range | Performed At | + +-------+ + + | ALT, External | 16 | 0 - 41 | | + +-------+ + + External Lab: AST (03/19/2018)Only the most recent of 3 results within the time period is i ncluded. + +-------+ + + | Component | Value | Ref Range | Performed At | + +-------+ + + | AST, External | 18.0 | 0 - 40 | | + +-------+ + + External Lab: Alkaline Phosphatase (03/19/2018)Only the most recent of 3 results within the time period is included. + +-------+ + + | Component | Value | Ref Range | Performed At | + +-------+ + + | ALP, External | 120 | 40 - 129 | | + +-------+ + + External Lab: Bilirubin, Total (03/19/2018)Only the most recent of 3 results within the juan f e period is included. + +-------+ + + | Component | Value | Ref Range | Performed At | + +-------+ + + | Bilirubin, Total, | 0.6 | 0.1 - 1.5 | | | External | | | | + +-------+ + + External Lab: Albumin (03/19/2018)Only the most recent of 3 results within the time period is included. + +---------+ + + | Component | Value | Ref Range | Performed At | + +---------+ + + | Albumin, External | 3.4 (A) | 3.5 - 5.2 | | + +---------+ + + External Lab: Protein, Total (03/19/2018)Only the most recent of 3 results within the time period is included. + +-------+ + + | Component | Value | Ref Range | Performed At | + +-------+ + + | Protein, Total, | 7.0 | 6.2 - 8.2 | | | External | | | | + +-------+ + + External Lab: Calcium (03/19/2018)Only the most recent of 3 results within the time period is included. + +-------+ + + | Component | Value | Ref Range | Performed At | + +-------+ + + | Calcium, External | 8.6 | 8.5 - 10.2 | | + +-------+ + + External Lab: Carbon Dioxide (03/19/2018) + +-------+ + + | Component | Value | Ref Range | Performed At | + +-------+ + + | Carbon Dioxide, | 24 | 22 - 29 | | | External | | | | + +-------+ + + External Lab: Chloride (03/19/2018) + +-------+ + + | Component | Value | Ref Range | Performed At | + +-------+ + + | Chloride, External | 104 | 97 - 107 | | + +-------+ + + External Lab: Potassium (03/19/2018) + +-------+ + + | Component | Value | Ref Range | Performed At | + +-------+ + + | Potassium, External | 5.3 | 3.5 - 5.3 | | + +-------+ + + External Lab: Sodium (03/19/2018) + +-------+ + + | Component | Value | Ref Range | Performed At | + +-------+ + + | Sodium, External | 141 | 135 - 145 | | + +-------+ + + External Lab: Triglycerides (03/19/2018) + +-------+ + + | Component | Value | Ref Range | Performed At | + +-------+ + + | Triglycerides, | 132 | | | | External | | | | + +-------+ + + + + | Specimen | + + | Blood | + + External Lab: Cholesterol, HDL (03/19/2018) + +-------+ + + | Component | Value | Ref Range | Performed At | + +-------+ + + | HDL Cholesterol, | 50 | mg/dl | | | External | | | | + +-------+ + + + + | Specimen | + + | Blood | + + External Lab: Cholesterol, Total (03/19/2018) + +-------+ + + | Component | Value | Ref Range | Performed At | + +-------+ + + | Cholesterol, Total, | 149 | mg/dl | | | External | | | | + +-------+ + + + + | Specimen | + + | Blood | + + External Lab: eGFR (03/19/2018)Only the most recent of 3 results within the time period is included. + +-------+ + + | Component | Value | Ref Range | Performed At | + +-------+ + + | eGFR, External | 32 | | | + +-------+ + + + + | Specimen | + + | Blood | + + Lipid Panel (03/19/2018) + +-------+ + + | Component | Value | Ref Range | Performed At | + +-------+ + + | LDL Cholesterol | 72.6 | <=100 mg/dL | | + +-------+ + + + + | Specimen | + + | Blood | + + Comprehensive Metabolic Panel (03/19/2018)Only the most recent of 3 results within the time period is included. + + + + + | Component | Value | Ref Range | Performed At | + + + + + | ANION GAP | 18 | 9 - 18 mmol/L | | + + + + + | Bun/Creatinine | 25.2 | 11.0 - 35.0 | | + + + + + | Creatinine | 1.70 (A) | 0.70 - 1.30 | | + + + + + + + | Specimen | + + | Blood | + + ECG 12 lead (03/03/2018 1048) + + + + + | Component | Value | Ref Range | Performed At | + + + + + | VENTRICULAR RATE EKG | 65 | BPM | [facility] | + + + + + | ATRIAL RATE | 65 | BPM | [facility] | + + + [...] VASQUEZ MD | | | | | ([id number]) on 03/04/2018 | | | | | [...] | + +---------+ + + External Lab: Troponin T (01/31/2018)Only the most recent of 2 results within the time calixto od is included. + +--------+ + + | Component | Value | Ref Range | Performed At | + +--------+ + + | Troponin T, External | <0.010 | | | + +--------+ + + External Lab: CBC (01/31/2018)Only the most recent of 2 results [...] | [employer] | [employer] | [id number] | Medica | [phone] | | MEDICAID HMO | HEALTH | | id | [id number] | | | | MDCD | | | | | | | HMO [place] | | | | | + +--------+ +--------+ +---------+ | [facility] | IHS | [id number] | Indemn | | | | SERVICE [...] | Self [birth year] Home: | [address] | | | al/Fam | | 1955 | [phone] | [place] [address] | | | jeni | | | [address] | | + +--------+ +--------+ + +
--- OUTSIDE RECORDS SUMMARY | ~2018-04-21 | XMS | Encounter Summary ---
Demographics + + + | Address | [address] | | | [place] [address] | + + + | Home Phone [...] + | Organization | [facility] | | | and [place] [...] + | Sachin Dwyer | ECON | [address] | | | | | [place] | | + + + + + Care Team Providers + +------+ + | Care Physician Chief Of Pathology Name | Role | Phone | + [...] | | | | | [address] | | | | | | [place], [place] | | | | | | [address] | | | | | | [phone] | | | +--------+ + + + [...] | | | | | [place] [address] | | | | | | [phone] | | | | | | | | +--------+---------+ + + + as of this encounter Visit Diagnoses Not on filein this encounter"
--- OUTSIDE RECORDS SUMMARY | ~2018-04-21 | XMS | Clinical Summary ---
Demographics + + + | Address | [address] | | | [place] [address] | + + + | Home Phone [...] [place] | | | | | [address] | | + + + + + Care Team Providers + +------+ + | Care Training And Development Manager Name | Role | Phone | + +------+ + PP | Unavailable | + +------+ + Source Comments [facility] Allergies Not on File Current Medications Not [...]
--- OUTSIDE RECORDS SUMMARY | ~2018-04-21 | XMS | Encounter Summary ---
Demographics + + + | Address | [address] | | | [place] [address] | + + + | Home Phone | | + + + | Preferred Language | Unknown | + + + | Marital Status | | + + + | Samaritan Affiliation | 1041 | + + + | Race | Unknown | + + + | Ethnic Group | Unknown | + + + Author + + + | Author | [facility] | | | and [place] | + + + | Organization | [facility] | | | and [place] [...] + | Sachin Dwyer | ECON | [address] | | | | | [place] | | + + + + + Care Team Providers + +------+ + | Care Public Speaker Name | Role | Phone | + [...] [address] | | | | | [place], | [address] [place] | | | | | [place] [address] | [place] [address] | | | | | [phone] | [phone] | | | | | | | [...] DON | | | | | | [place] [address] | | | | | | [phone] | | | | | | | [...]
--- OUTSIDE RECORDS SUMMARY | ~2018-04-21 | XMS | Encounter Summary ---
Demographics + + + | Address | [address] | | | [place] [address] | + + + | Home Phone | | + + + | Preferred Language | Unknown | + + + | Marital Status | | + + + | Congregational Affiliation | 1041 | + + + | Race | Unknown | + + + | Ethnic Group | Unknown | + + + Author + + + | Author | [facility] | | | and [place] | + + + | Organization | [facility] | | | and [place] | [...] + | Sachin Dwyer | ECON | [address] | | | | | [place] | | + + + + + Care Team Providers + +------+ + | Care Care Attendant Name | Role | Phone | [...] | failure, unspecified | | | | [place], | [address] [place] | HF chronicity, | | | | [place] [address] | [place] [address] | unspecified heart | | | | [phone] | [phone] | failure type (HCC) | | | [...] | | | | | [place] [address] | | | | | | [phone] | | | | | | | [...]
[~2018-04-21 09:14] MED LIST changes: +FLAGYL500 MG PO; +ZOFRAN4 MG PO
--- OUTSIDE RECORDS SUMMARY | 2018-04-21 09:18 | XMS ---
PreManage Notification: JOSE G COX Security Admissions Manager Events No recent Security Events currently on file CRITERIA MET - 6 ED Visits in 6 Months - [facility] - 2 Visits in 30 Days CARE PROVIDERS ADAMARIS HENNING Physician Java Developer Consultant: Surgical 04/21/2018-Current PHONE: [phone] Neo has no Care Guidelines for this patient. Mayela VISIT COUNT ([address] [place] [address] TOTAL 7 NOTE: Visits indicate total known visits. ED/UCC VISIT TRACKING (12 MO.) 04/21/2018 09:15 MANJU [facility] [place] TYPE: Emergency COMPLAINT: - VOMITING/DIARRHEA 04/19/2018 08:47 MANJU [facility] [place] TYPE: Emergency COMPLAINT: - ABDOMINAL PAIN/DIARHEA 04/15/2018 22:01 MANJU [facility] [place] TYPE: Emergency COMPLAINT: - LOWER BACK PAIN DIAGNOSES: - Proteinuria, unspecified - terminal manager (current) use of insulin - Unspecified asthma, uncomplicated - Type 2 diabetes mellitus without complications - Allergy status to other drugs, medicaments and biological substances status - Heart failure, unspecified - Unspecified abdominal pain - Personal history of nicotine dependence - Other correction (current) drug therapy 03/08/2018 21:50 MANJU Mcdanielantoine ShankarAnibal Acosta [place] TYPE: Emergency COMPLAINT: - CHEST PAIN 02/10/2018 03:43 MANJU Colin VonnieAnibal Acosta [place] TYPE: Emergency COMPLAINT: - L FOOT PAIN/NON INJURY DIAGNOSES: - terminal manager (current) use of aspirin - Pain in left ankle and joints of left foot - Personal history of nicotine dependence - Allergy status to other drugs, medicaments and biological substances status - custodial (current) use of insulin - Insomnia, unspecified - Personal history of transient ischemic attack (TIA), and cerebral infarction without residual deficits - Type 2 diabetes mellitus with diabetic neuropathy, unspecified - Sedative, hypnotic or anxiolytic dependence with withdrawal, unspecified 01/31/2018 09:56 MANJU [facility] [place] TYPE: Emergency COMPLAINT: - SOB DIAGNOSES: - custodial (current) use of aspirin - Type 2 diabetes mellitus without complications - Shortness of breath - Heart failure, unspecified - Other termite helper (current) drug therapy - Personal history of nicotine dependence - Allergy status to other drugs, medicaments and biological substances status 01/27/2018 15:57 MANJU Ar[facility]ola [place] TYPE: Emergency COMPLAINT: - SOB INPATIENT VISIT TRACKING (12 MO.) No inpatient visits to display in this time frame [email or web address]
== END 2018-04-21 13:26 | disposition home or self-care (01) ==
LOC: ED 09:14
DX: R19.7 Diarrhea, unspecified (principal); R80.9 Proteinuria, unspecified; E11.9 Type 2 diabetes mellitus without complications; J45.909 Unspecified asthma, uncomplicated; Z86.73 Personal history of transient ischemic attack (TIA), and cerebral infarction without residual deficits; I50.9 Heart failure, unspecified; Z87.891 Personal history of nicotine dependence; Z88.8 Allergy status to other drugs, medicaments and biological substances; Z79.4 Long term (current) use of insulin; Z79.899 Other long term (current) drug therapy
CPT/HCPCS: 80053; 81001; 82150; 83690; 85025; 96361; 96374; 99284; J2405; J7030

== ENCOUNTER 2018-07-25 23:03 | Emergency (ER) | payer OTHER ==
[~2018-07-25] VITALS: Ht 160 cm; Wt 85.7 kg
--- OUTSIDE RECORDS SUMMARY | 2018-07-25 23:08 | XMS ---
PreManage Notification: JOSE G COX Security It Applications Manager Events No recent Security Events currently on file CRITERIA MET - 6 ED Visits in 6 Months CARE PROVIDERS ADAMARIS HENNING Physician [address] Worker: Surgical 04/21/2018-Current PHONE: Unknown Neo has no Care Guidelines for this patient. Care History Medical/Surgical 04/21/2018 [facility] - [facility] - IF PATIENT CALLS EARLY IN THE AM TO [facility] PATIENT CAN BE SEEN SAME DAY FOR ANY NON EMERGENT MEDICAL NEEDS. - [facility] CONTACT # [phone] - PATIENT HAS A LONG EXTENSIVE HX WITH METHAMPHETAMINE USAGE. - PHYSICIAN DISCRECTION- TOX SCREEN BEFORE TREATMENT. Care Recommendation: - USE EXTREME CAUTION IN GIVING NARCOTICS TO THIS PATIENT. - Avoid Discharge Narcotic prescriptions if at all possible. Please use clinical judgement. E.D. VISIT COUNT (12 MO.) 9 [facility] TOTAL 9 NOTE: Visits indicate total known visits. ED/UCC VISIT TRACKING (12 MO.) 07/25/2018 23:03 [facility] TYPE: Emergency COMPLAINT: - CHEST PAIN/SHORTNESS OF BREATH 05/13/2018 22:31 [facility] TYPE: Emergency COMPLAINT: - R HAND NUMBNESS DIAGNOSES: - Allergy status to other drugs, medicaments and biological substances status - Personal history of nicotine dependence - Hyperkalemia - Heart failure, unspecified - Anesthesia of skin - Paresthesia of skin - Other detention (current) drug therapy - Unspecified asthma, uncomplicated - Other chronic pain - Type 2 diabetes mellitus without complications - vermin exterminator (current) use of insulin - Old myocardial infarction 04/21/2018 09:15 [facility] [place] TYPE: Emergency COMPLAINT: - VOMITING/DIARRHEA DIAGNOSES: - Proteinuria, unspecified - Personal history of transient ischemic attack (TIA), and cerebral infarction without residual deficits - Other oysterman (current) drug therapy - Personal history of nicotine dependence - jail (current) use of insulin - Unspecified asthma, uncomplicated - Type 2 diabetes mellitus without complications - Heart failure, unspecified - Diarrhea, unspecified - Allergy status to other drugs, medicaments and biological substances status 04/19/2018 08:47 [facility] TYPE: Emergency COMPLAINT: - ABDOMINAL PAIN/DIARHEA DIAGNOSES: - Personal history of transient ischemic attack (TIA), and cerebral infarction without residual deficits - Unspecified asthma, uncomplicated - Type 2 diabetes mellitus without complications - Infectious gastroenteritis and colitis, unspecified - Old myocardial infarction - Personal history of nicotine dependence - Other oysterman (current) drug therapy - Diarrhea, unspecified - Allergy status to other drugs, medicaments and biological substances status - Heart failure, unspecified 04/15/2018 22:01 [facility] TYPE: Emergency COMPLAINT: - LOWER BACK PAIN DIAGNOSES: - Proteinuria, unspecified - jail (current) use of insulin - Unspecified asthma, uncomplicated - Type 2 diabetes mellitus without complications - Allergy status to other drugs, medicaments and biological substances status - Heart failure, unspecified - Unspecified abdominal pain - Personal history of nicotine dependence - Other detention (current) drug therapy 03/08/2018 21:50 [facility] TYPE: Emergency COMPLAINT: - CHEST PAIN 02/10/2018 03:43 [facility] TYPE: Emergency COMPLAINT: - L FOOT PAIN/NON INJURY DIAGNOSES: - vermin exterminator (current) use of aspirin - Pain in left ankle and joints of left foot - Personal history of nicotine dependence - Allergy status to other drugs, medicaments and biological substances status - vermin exterminator (current) use of insulin - Insomnia, unspecified - Personal history of transient ischemic attack (TIA), and cerebral infarction without residual deficits - Type 2 diabetes mellitus with diabetic neuropathy, unspecified - Sedative, hypnotic or anxiolytic dependence with withdrawal, unspecified 01/31/2018 09:56 [facility] TYPE: Emergency COMPLAINT: - SOB DIAGNOSES: - jail (current) use of aspirin - Type 2 diabetes mellitus without complications - Shortness of breath - Heart failure, unspecified - Other detention (current) drug therapy - Personal history of nicotine dependence - Allergy status to other drugs, medicaments and biological substances status 01/27/2018 15:57 [facility] TYPE: Emergency COMPLAINT: - SOB INPATIENT VISIT TRACKING (12 MO.) 03/08/2018 21:51 [facility] TYPE: Medical Surgical COMPLAINT: - DEHYDRATION DIAGNOSES: - Other detention (current) drug therapy - Dehydration - Major depressive disorder, single episode, unspecified - Hypertensive heart disease with heart failure - Adverse effect of loop [high-ceiling] diuretics, initial encounter - Allergy status to other drugs, medicaments and biological substances status - Acute kidney failure, unspecified - Other stimulant abuse, in remission - Type 2 diabetes mellitus with foot ulcer - 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 - Gangrene, not elsewhere classified - Personal history of nicotine dependence - vermin exterminator (current) use of insulin - Unspecified asthma, uncomplicated - Type 2 diabetes mellitus with diabetic peripheral angiopathy with gangrene - Personal history of transient ischemic attack (TIA), and cerebral infarction without residual deficits - vermin exterminator (current) use of aspirin - Old myocardial infarction - Chronic systolic (congestive) heart failure - Alcohol dependence, in remission - Non-pressure chronic ulcer of other part of right foot with unspecified severity - Anxiety disorder, unspecified 01/27/2018 18:[address] 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 - Type 2 diabetes mellitus with diabetic neuropathy, unspecified - Type 2 diabetes mellitus with foot ulcer - Hypertensive heart disease with heart failure - Non-pressure chronic ulcer of other part of right foot with unspecified severity - vermin exterminator (current) use of insulin - Acute diastolic (congestive) heart failure - Other stimulant dependence, uncomplicated - Personal history of transient ischemic attack (TIA), and cerebral infarction without residual deficits - Nicotine dependence, cigarettes, uncomplicated - Heart failure, unspecified [email or web address]
[2018-07-25] MEDS ORDERED: LIPITOR10 MG PO (23:22)
--- NOTE | 2018-07-26 15:03 | EKG ---
[facility] [address] [facility] [place] [address] Signed Normal sinus rhythm Normal ECG When compared with ECG of 08-MAR-2018 21:58, Criteria for Septal infarct are no longer present Nonspecific T wave abnormality has replaced inverted T waves in Lateral leads Confirmed by CIERRA LAWRENCE DO ([id number]) on 07/26/2018 3:03:18 PM Electronically Signed By: CIERRA LAWRENCE DO 07/26/18 1503 PATIENT NAME: JOSE G COX Electrocardiogram DATE OF : 59 PHYSICIAN: CIERRA LAWRENCE DO REPORT #: [id number] REPORT IS CONFIDENTIAL AND NOT TO BE RELEASED WITHOUT AUTHORIZATION
== END 2018-07-26 02:35 | disposition home or self-care (01) ==
LOC: ED 23:03
DX: R07.89 Other chest pain (principal); B34.9 Viral infection, unspecified; E11.9 Type 2 diabetes mellitus without complications; J45.909 Unspecified asthma, uncomplicated; I50.9 Heart failure, unspecified; Z86.73 Personal history of transient ischemic attack (TIA), and cerebral infarction without residual deficits; Z87.891 Personal history of nicotine dependence; Z88.8 Allergy status to other drugs, medicaments and biological substances; Z79.4 Long term (current) use of insulin; Z79.899 Other long term (current) drug therapy
CPT/HCPCS: 71045; 71260; 80053; 83880; 84484; 85025; 85379; 93005; 93010; 96360; 96361; 99285-25; J7030; Q9967

== ENCOUNTER 2018-08-21 15:13 | Emergency (ER) | payer OTHER ==
[~2018-08-21] VITALS: Ht 160 cm; Wt 85.7 kg
[~2018-08-21 15:13] MED LIST changes: +LIPITOR10 MG PO
--- OUTSIDE RECORDS SUMMARY | 2018-08-21 15:16 | XMS ---
PreManage Notification: JOSE G COX Security Master Certified Rv Technician Events No recent Security Events currently on file CRITERIA MET - 6 ED Visits in 6 Months - [facility] - Has Care Guidelines - [facility] - 2 Visits in 30 Days CARE PROVIDERS ADAMARIS HENNING Physician Bandoleer Packer: Surgical 04/21/2018-Current PHONE: Unknown Neo has no Care Guidelines for this patient. Care History Medical/Surgical 04/21/2018 [facility] [place] - PATIENT HAS DALILA PROVIDER: - PLEASE REFER PATIENT TO [facility]. - IF PATIENT CALLS EARLY IN THE AM TO [facility] PATIENT CAN BE SEEN SAME DAY FOR ANY NON EMERGENT MEDICAL NEEDS. - [facility] CONTACT # [phone] - PATIENT HAS A LONG EXTENSIVE HX WITH METHAMPHETAMINE USAGE. - PHYSICIAN DISCRECTION- TOX SCREEN BEFORE TREATMENT. Care Recommendation: - USE EXTREME CAUTION IN GIVING NARCOTICS TO THIS PATIENT. - Avoid Discharge Narcotic prescriptions if at all possible. Please use clinical judgement. E.D. VISIT COUNT (12 MO.) [address] [place] [address] TOTAL 10 NOTE: Visits indicate total known visits. ED/UCC VISIT TRACKING (12 MO.) 08/21/2018 15:13 [facility] [place] TYPE: Emergency COMPLAINT: - DIFFICULTY BREATHING 07/25/2018 23:03 [facility] [place] TYPE: Emergency COMPLAINT: - CHEST PAIN/SHORTNESS OF BREATH DIAGNOSES: - Heart failure, unspecified - Other chest pain - Personal history of transient ischemic attack (TIA), and cerebral infarction without residual deficits - Personal history of nicotine dependence - Unspecified asthma, uncomplicated - Chest pain, unspecified - termination clerk (current) use of insulin - Type 2 diabetes mellitus without complications - Allergy status to other drugs, medicaments and biological substances status - Other terminal supervisor (current) drug therapy - Viral infection, unspecified 05/13/2018 22:31 [facility] [place] TYPE: Emergency COMPLAINT: - R HAND NUMBNESS DIAGNOSES: - Allergy status to other drugs, medicaments and biological substances status - Personal history of nicotine dependence - Hyperkalemia - Heart failure, unspecified - Anesthesia of skin - Paresthesia of skin - Other terminal supervisor (current) drug therapy - Unspecified asthma, uncomplicated - Other chronic pain - Type 2 diabetes mellitus without complications - termination clerk (current) use of insulin - Old myocardial infarction 04/21/2018 09:15 [facility] [place] TYPE: Emergency COMPLAINT: - VOMITING/DIARRHEA DIAGNOSES: - Proteinuria, unspecified - Personal history of transient ischemic attack (TIA), and cerebral infarction without residual deficits - Other nursing home (current) drug therapy - Personal history of nicotine dependence - care home (current) use of insulin - Unspecified asthma, [...] Personal history of nicotine dependence - Other nursing home (current) drug therapy - Diarrhea, unspecified - Allergy status to other drugs, medicaments and biological substances status - Heart failure, unspecified 04/15/2018 22:01 [facility] [place] TYPE: Emergency COMPLAINT: - LOWER BACK PAIN DIAGNOSES: - Proteinuria, unspecified - termination clerk (current) use of insulin - Unspecified asthma, uncomplicated - Type 2 diabetes mellitus without complications - Allergy status to other drugs, medicaments and biological substances status - Heart failure, unspecified - Unspecified abdominal pain - Personal history of nicotine dependence - Other nursing home (current) drug therapy 03/08/2018 21:50 [facility] [place] TYPE: Emergency COMPLAINT: - CHEST PAIN 02/10/2018 03:43 [facility] [place] TYPE: Emergency COMPLAINT: - L FOOT PAIN/NON INJURY DIAGNOSES: - termination clerk (current) use of aspirin - Pain in left ankle and joints of left foot - Personal history of nicotine dependence - Allergy status to other drugs, medicaments and biological substances status - care home (current) use of insulin - Insomnia, unspecified - Personal history of transient ischemic attack (TIA), and cerebral infarction without residual deficits - Type 2 diabetes mellitus with diabetic neuropathy, unspecified - Sedative, hypnotic or anxiolytic dependence with withdrawal, unspecified 01/31/2018 09:56 [facility] [place] TYPE: Emergency COMPLAINT: - SOB DIAGNOSES: - termination clerk (current) use of aspirin - Type 2 diabetes mellitus without complications - Shortness of breath - Heart failure, unspecified - Other terminal supervisor (current) drug therapy - Personal history of nicotine dependence - Allergy status to other drugs, medicaments and biological substances status 01/27/2018 15:57 [facility] [place] TYPE: Emergency COMPLAINT: - SOB INPATIENT VISIT TRACKING (12 MO.) 08/05/2018 10:20 [facility] TYPE: Cardiology DIAGNOSES: - Ischemic cardiomyopathy - Heart failure, unspecified - Atherosclerotic heart disease of [place] coronary artery without angina pectoris - Precordial pain 03/08/2018 21:51 [facility] [place] TYPE: Medical Surgical COMPLAINT: - DEHYDRATION DIAGNOSES: - Other nursing home (current) drug therapy - Dehydration - Major depressive disorder, single episode, unspecified - Hypertensive heart disease with heart failure - Adverse effect of loop [high-ceiling] diuretics, initial encounter - Allergy status to other drugs, medicaments and biological substances status - Acute kidney failure, unspecified - Other stimulant abuse, in remission - Type 2 diabetes mellitus with foot ulcer - Atherosclerotic heart disease of [place] coronary artery without angina pectoris - Gangrene, not elsewhere classified - Personal history of nicotine dependence - care home (current) use of insulin - Unspecified asthma, uncomplicated - Type 2 diabetes mellitus with diabetic peripheral angiopathy with gangrene - Personal history of transient ischemic attack (TIA), and cerebral infarction without residual deficits - termination clerk (current) use of aspirin - Old myocardial infarction - Chronic systolic (congestive) heart failure - Alcohol dependence, in remission - Non-pressure chronic ulcer of other part of right foot with unspecified severity - Anxiety disorder, unspecified 01/27/2018 18:[address] [facility] [place] TYPE: Medical Surgical COMPLAINT: - CHF DIAGNOSES: - Atherosclerotic heart disease of [place] coronary artery without angina pectoris - Type 2 diabetes mellitus with diabetic neuropathy, unspecified - Type 2 diabetes mellitus with foot ulcer - Hypertensive heart disease with heart failure - Non-pressure chronic ulcer of other part of right foot with unspecified severity - care home (current) use of insulin - Acute diastolic (congestive) heart failure - Other stimulant dependence, uncomplicated - Personal history of transient ischemic attack (TIA), and cerebral infarction without residual deficits - Nicotine dependence, cigarettes, uncomplicated - Heart failure, unspecified [email or web address]
[2018-08-21] MEDS ORDERED: PREDNISONE20 MG PO (19:17)
--- NOTE | 2018-08-22 11:31 | EKG ---
[facility] [address] [place], [place] [address] Signed Normal sinus rhythm ST \T\ T wave abnormality, consider lateral ischemia Abnormal ECG When compared with ECG of 25-JUL-2018 23:11, T wave inversion now evident in Lateral leads Confirmed by CIERRA LAWRENCE DO ([id number]) on 08/22/2018 11:31:11 AM Electronically Signed By: CIERRA LAWRENCE DO 08/22/18 1131 PATIENT NAME: JOSE G COX Electrocardiogram DATE OF : 59 PHYSICIAN: CIERRA LAWRENCE DO REPORT #: [id number] REPORT IS CONFIDENTIAL AND NOT TO BE RELEASED WITHOUT AUTHORIZATION
== END 2018-08-21 19:33 | disposition home or self-care (01) ==
LOC: ED 15:13
DX: J45.901 Unspecified asthma with (acute) exacerbation (principal); E11.9 Type 2 diabetes mellitus without complications; I25.2 Old myocardial infarction; Z86.73 Personal history of transient ischemic attack (TIA), and cerebral infarction without residual deficits; I50.9 Heart failure, unspecified; Z87.891 Personal history of nicotine dependence; Z88.8 Allergy status to other drugs, medicaments and biological substances; Z79.4 Long term (current) use of insulin; Z79.899 Other long term (current) drug therapy
CPT/HCPCS: 71045; 80053; 83735; 83880; 84484; 85025; 93005; 93010; 94640; 96374; 96375; 99285-25; J2930

== ENCOUNTER 2018-09-09 07:54 | Emergency (ER) | payer OTHER ==
[~2018-09-09] VITALS: Ht 160 cm; Wt 85.7 kg
[~2018-09-09 07:54] MED LIST changes: +PREDNISONE20 MG PO
--- OUTSIDE RECORDS SUMMARY | 2018-09-09 07:58 | XMS ---
PreManage Notification: JOSE G COX Security Campus Ambassador Events No recent Security Events currently on file CRITERIA MET - 6 ED Visits in 6 Months - [facility] - Has Care Guidelines - [facility] - 2 Visits in 30 Days CARE PROVIDERS ADAMARIS HENNING Physician Psychology Teacher: Surgical 04/21/2018-Current PHONE: Unknown Neo has no Care Guidelines for this patient. Care History Medical/Surgical 04/21/2018 [facility] - PATIENT HAS DALILA PROVIDER: - PLEASE REFER PATIENT TO [facility]. - IF PATIENT CALLS EARLY IN THE AM TO [facility] PATIENT CAN BE SEEN SAME DAY FOR ANY NON EMERGENT MEDICAL NEEDS. - [employer] [facility] CONTACT # [phone] - PATIENT HAS A LONG EXTENSIVE HX WITH METHAMPHETAMINE USAGE. - PHYSICIAN DISCRECTION- TOX SCREEN BEFORE TREATMENT. Care Recommendation: - USE EXTREME CAUTION IN GIVING NARCOTICS TO THIS PATIENT. - Avoid Discharge Narcotic prescriptions if at all possible. Please use clinical judgement. E.D. VISIT COUNT (12 MO.) 11 [facility] TOTAL 11 NOTE: Visits indicate total known visits. ED/UCC VISIT TRACKING (12 MO.) 09/09/2018 07:55 [facility] [place] TYPE: Emergency COMPLAINT: - COUGH 08/21/2018 15:13 [facility] [place] TYPE: Emergency COMPLAINT: - DIFFICULTY BREATHING DIAGNOSES: - Old myocardial infarction - [facility] (current) use of insulin - Other nursing home (current) drug therapy - Heart failure, unspecified - Unspecified asthma with (acute) exacerbation - Shortness of breath - Allergy status to other drugs, medicaments and biological substances status - Personal history of transient ischemic attack (TIA), and cerebral infarction without residual deficits - Personal history of nicotine dependence - Type 2 diabetes mellitus without complications 07/25/2018 23:03 [facility] [place] TYPE: Emergency COMPLAINT: - CHEST PAIN/SHORTNESS OF BREATH DIAGNOSES: - Heart failure, unspecified - Other chest pain - Personal history of transient ischemic attack (TIA), and cerebral infarction without residual deficits - Personal history of nicotine dependence - Unspecified asthma, uncomplicated - Chest pain, unspecified - [facility] (current) use of insulin - Type 2 diabetes mellitus without complications - Allergy status to other drugs, medicaments and biological substances status - Other lobsterman (current) drug therapy - Viral infection, unspecified 05/13/2018 22:31 [facility] [place] TYPE: Emergency COMPLAINT: - R HAND NUMBNESS DIAGNOSES: - Allergy status to other drugs, medicaments and biological substances status - Personal history of nicotine dependence - Hyperkalemia - Heart failure, unspecified - Anesthesia of skin - Paresthesia of skin - Other nursing home (current) drug therapy - Unspecified asthma, uncomplicated - Other chronic pain - Type 2 diabetes mellitus without complications - termite exterminator helper (current) use of insulin - Old myocardial infarction 04/21/2018 09:15 [facility] [place] TYPE: Emergency COMPLAINT: - VOMITING/DIARRHEA DIAGNOSES: - Proteinuria, unspecified - Personal history of transient ischemic attack (TIA), and cerebral infarction without residual deficits - Other nursing home (current) drug therapy - Personal history of nicotine dependence - [facility] (current) use of insulin - Unspecified asthma, uncomplicated - Type 2 diabetes mellitus without complications - Heart failure, unspecified - Diarrhea, unspecified - Allergy status to other drugs, medicaments and biological substances status 04/19/2018 08:[address] [facility] [place] TYPE: Emergency COMPLAINT: - ABDOMINAL PAIN/DIARHEA DIAGNOSES: - Personal history of transient ischemic attack (TIA), and cerebral infarction without residual deficits - Unspecified asthma, uncomplicated - Type 2 diabetes mellitus without complications - Infectious gastroenteritis and colitis, unspecified - Old myocardial infarction - Personal history of nicotine dependence - Other lobsterman (current) drug therapy - Diarrhea, unspecified - Allergy status to other drugs, medicaments and biological substances status - Heart failure, unspecified 04/15/2018 22:[address] [facility] [place] TYPE: Emergency COMPLAINT: - LOWER BACK PAIN DIAGNOSES: - Proteinuria, unspecified - [facility] (current) use of insulin - Unspecified asthma, [...] - L FOOT PAIN/NON INJURY DIAGNOSES: - termite exterminator helper (current) use of aspirin - Pain in left ankle and joints of left foot - Personal history of nicotine dependence - Allergy status to other drugs, medicaments and biological substances status - [facility] (current) use of insulin - Insomnia, unspecified - Personal history of transient ischemic attack (TIA), and cerebral infarction without residual deficits - Type 2 diabetes mellitus with diabetic neuropathy, unspecified - Sedative, hypnotic or anxiolytic dependence with withdrawal, unspecified 01/31/2018 09:56 [facility] [place] TYPE: Emergency COMPLAINT: - SOB DIAGNOSES: - termite exterminator helper (current) use of aspirin - Type 2 diabetes mellitus without complications - Shortness of breath - Heart failure, unspecified - Other nursing home (current) drug therapy - Personal history of nicotine dependence - Allergy status to other drugs, medicaments and biological substances status 01/27/2018 15:57 [facility] [place] TYPE: Emergency COMPLAINT: - SOB INPATIENT VISIT TRACKING (12 MO.) [facility]/05/2018 10:[facility] TYPE: Cardiology DIAGNOSES: - Ischemic cardiomyopathy - Heart failure, unspecified - Atherosclerotic heart disease of [place] coronary artery without angina pectoris - Precordial pain 03/08/2018 21:51 [facility] [place] TYPE: Medical Surgical COMPLAINT: - DEHYDRATION DIAGNOSES: - Other lobsterman (current) drug therapy - Dehydration - Major depressive disorder, single episode, unspecified - Hypertensive heart disease with heart failure - Adverse effect of loop [high-ceiling] diuretics, initial encounter - Allergy status to other drugs, medicaments and biological substances status - Acute kidney failure, unspecified - Other stimulant abuse, in remission - Type 2 diabetes mellitus with foot ulcer - Atherosclerotic heart disease of [place] coronary artery without angina pectoris - Gangrene, not elsewhere classified - Personal history of nicotine dependence - termite exterminator helper (current) use of insulin - Unspecified asthma, uncomplicated - Type 2 diabetes mellitus with diabetic peripheral angiopathy with gangrene - Personal history of transient ischemic attack (TIA), and cerebral infarction without residual deficits - [facility] (current) use of aspirin - Old myocardial infarction - Chronic systolic (congestive) heart failure - Alcohol dependence, in remission - Non-pressure chronic ulcer of other part of right foot with unspecified severity - Anxiety disorder, unspecified 01/27/2018 18:[address] [facility] [place] TYPE: Medical Surgical COMPLAINT: - CHF DIAGNOSES: - Atherosclerotic heart disease of [place] coronary artery without angina pectoris - Type 2 diabetes mellitus with diabetic neuropathy, unspecified - Type 2 diabetes mellitus with foot ulcer - Hypertensive heart disease with heart failure - Non-pressure chronic ulcer of other part of right foot with unspecified severity - [facility] (current) use of insulin - Acute diastolic (congestive) heart failure - Other stimulant dependence, uncomplicated - Personal history of transient ischemic attack (TIA), and cerebral infarction without residual deficits - Nicotine dependence, cigarettes, uncomplicated - Heart failure, unspecified [email or web address]
[2018-09-09] MEDS ORDERED: DULERA 200 MCG/13 GM INH (08:22)
[2018-09-09] MEDS ORDERED: PREDNISONE20 MG PO (10:02)
[2018-09-09] MEDS ORDERED: ZITHROMAX250 MG PO (10:02)
[2018-09-09] MEDS ORDERED: VENTOLIN HFA18 GM INH (10:02)
[2018-09-09] MEDS ORDERED: TESSALON PERLE100 MG PO (10:02)
== END 2018-09-09 10:20 | disposition home or self-care (01) ==
LOC: ED 07:54
DX: J18.9 Pneumonia, unspecified organism (principal); J32.9 Chronic sinusitis, unspecified; E11.9 Type 2 diabetes mellitus without complications; Z87.891 Personal history of nicotine dependence; Z88.8 Allergy status to other drugs, medicaments and biological substances; Z79.4 Long term (current) use of insulin; Z79.899 Other long term (current) drug therapy
CPT/HCPCS: 71046; 94640; 99283-25; J1100

== ENCOUNTER 2018-10-01 18:59 | Emergency (ER) | payer OTHER ==
[~2018-10-01] VITALS: Ht 160 cm; Wt 85.7 kg
--- OUTSIDE RECORDS SUMMARY | ~2018-10-01 | XMS | Encounter Summary ---
Demographics + + + | Address | [address] | | | [place] [address] | + + + | Home Phone | | + + + | Preferred Language | Unknown | + + + | Marital Status | Unknown | + + + | Restorationism Affiliation | Unknown | + + + | Race | Unknown | + + + | Ethnic Group | Unknown | + + + Author + + + | Author | [facility] | + + + | Organization | [facility] | + + + | Address | Unknown | + + + | Phone | Unavailable | + + + Support + + +---------+ + | Name | Relationship | Address | Phone | + + +---------+ + | Sachin Dwyer | ECON | Unknown | | + + +---------+ + Care Team Providers + +------+ + | Care Drug Safety Coordinator Name | Role | Phone | + +------+ + | ManoloMaribel | PCP | | + +------+ + Encounter Details +--------+ + + + + | Date | Type | Department | Care Team | Description | +--------+ + + + + | 08/21/ | Telephone | [facility] | Luis, | | | 2018 | | [address] | [address] | | | | | [address] | | | | | | [place] [address] | | | | | | [phone] | | | +--------+ + + + [...] on file | | + + + as of this encounter Plan of Treatment +--------+---------+ + + + | Date | Type | Specialty | Care Team | Description | +--------+---------+ + + + | 11/17/ | Office | Nephrology | aJmes Pearce MD | | | 2019 | Visit | | [address] | | | | | | [address] [place], [place] | | | | | | [address] | | | | | | | | +--------+---------+ + + + as of this encounter Visit Diagnoses Not on filein this encounter"
--- OUTSIDE RECORDS SUMMARY | ~2018-10-01 | XMS | Encounter Summary ---
Demographics + + + | Address | [address] | | | [place] [address] | + + + | Home Phone | | + + + | Preferred Language | Unknown | + + + | Marital Status | | + + + | Oriental Orthodox Affiliation | 1041 | + + + | Race | Unknown | + + + | Ethnic Group | Unknown | + + + Author + + + | Author | [facility] | | | and [place] | + + + | Organization | [facility] | | | and [place] | + + + | Address | Unknown | + + + | Phone | Unavailable | + + + Support + + + + + | Name | Relationship | Address | Phone | + + + + + | ABBEY COX | ECON | Unknown | | + + + + + | Sachin Dwyer | ECON | [address] | | | | | [place] | | + + + + + | Sachin Dwyer | ELVIRA | Unknown | | + + + + + Care Team Providers + +------+ + | Care Linux System Engineer Name | Role | Phone | + +------+ + | Bernadette Armendariz PA-C | [facility] | | + +------+ + Encounter Details +--------+ + + + + | Date | Type | Department | Care Team | Description | +--------+ + + + + | 09/05/ | Orders Only | [facility] | Shazia Chambers, | | | 2018 | | CARDIOLOGY [address] | RN | | | | | [place], | | | | | | [place] [address] | | | | | | [phone] | | | +--------+ + + + [...] Description | +--------+---------+ + + + | 11/20/ | Office | Cardiology | Сергей Gaitan | | | 2019 | Visit | | MD Don [address] | | | | | | [place] [address] | | | | | | [place] [address] | | | | | | [phone] | | | | | | | | +--------+---------+ + + + as of this encounter Visit Diagnoses Not on filein this encounter"
--- OUTSIDE RECORDS SUMMARY | ~2018-10-01 | XMS | Clinical Summary ---
Demographics + + + | Address | [address] | | | [place] [address] | + + + | Home Phone | | + + + | Preferred Language | Unknown | + + + | Marital Status | | + + + | Scientology Affiliation | 1041 | + + + | Race | Unknown | + + + | Ethnic Group | Unknown | + + + Author + + + | Author | [facility] | | | and [place] | + + + | Organization | [facility] | | | [...] + | Sachin Dwyer | ECON | [address] | | | | | [place] | | + + + + + | Sachin Dwyer | ECON | Unknown | | + + + + + Care Team Providers + +------+ + | Care Cd Mixer Name | Role | Phone | + [...] + + +--------+---------+------+------+-------+ | torsemide | Take 10 mg by mouth | | | 07 | | Activ | | (DEMADEX) 20 [...] | e | + + +--------+---------+------+------+-------+ | lisinopril | Take 1 tablet by | 90 | 1 | 08/1 | | Activ | | (PRINIVIL, ZESTRIL) | mouth Daily. | tablet | | 10/08 | | e | | 10 mg tablet | | | | 18 | | | + + +--------+---------+------+------+-------+ | SM ASPIRIN ADULT | Take 81 mg by mouth | | | 03/23 | | Activ | | LOW STRENGTH 81 MG | Daily. | | | 03/10 | | e | | EC tablet | | | | 18 | | | + + +--------+---------+------+------+-------+ | fexofenadine | Take 180 mg by mouth | | | | | Activ | | (TIAN ALLERGY) | as needed. | | | | | e | | 180 mg tablet | | | | | | | + + +--------+---------+------+------+-------+ | atorvaSTATin | Take 1 tablet by | 90 | 3 | 08/22 | | Activ | | (LIPITOR) 10 mg | mouth nightly. | tablet | | 12/08 | | e | | tablet | | | | 19 | | | + + +--------+---------+------+------+-------+ | atorvaSTATin | Take 1 tablet by | 90 | 1 | 02/19 | 08/22 | Disco | | (LIPITOR) 10 mg | mouth nightly. | tablet | | 10/08 | 12/08 | ntinu | | tablet | | | | 18 | 19 | ed | + + +--------+---------+------+------+-------+ Active Problems + + + | Problem | Noted Date | + + + | CHF (congestive heart failure) ([facility]) | | + + + + + | Overview: Echocardiogram done at [facility] on 01/28/18 | | shows overall [...] + +---+ | Type 2 diabetes mellitus ([facility]) | | + +---+ | Asthma | | + +---+ | Heart disease | | + +---+ | Myocardial infarction ([facility]) | | + +---+ | CVA (cerebral vascular accident) ([facility]) | | + +---+ | Hypertension | | + +---+ Encounters +--------+ + + + + | Date | Type | Specialty | Care Team | Description | +--------+ + + + + | 09/05/ | Orders Only | | Shazia Chambers, | | | 2018 | | | RN | | +--------+ + + + + | 08/06/ | Telephone | | Сергей Gaitan | Other (echo needed) | | 2018 | | | MD Don | | +--------+ + + + + [...] + + + | Blood Pressure | 112/62 | 05/13/20181255 PDT | + + + + | Pulse | 68 | 05/13/20181255 PDT | + + + + | Temperature | - | - | + + + + | Respiratory Rate | 18 | 05/13/20181255 PDT | + + + + | Oxygen Saturation | - | - | + + + + | Inhaled Oxygen | - | - | | Concentration | | | + + + + | Weight | 83.2 kg (183 lb 6.8 | 05/13/20181255 PDT | | | oz) | | + + + + | Height | 160 cm (5' 3") | 05/13/20181255 PDT | + + + + | Body Mass Index | 32.49 | 05/13/20181255 PDT | + + + + Plan of Treatment +--------+---------+ + + + | Date | Type | Specialty | Care Team | Description | +--------+---------+ + + + | 11/20/ | Office | | Сергей Gaitan | | | 2018 | Visit | | MD Don [address] | | | | | | [address] [place] | | | | | | [place] [address] | | | | | | [phone] | | | | | | | [...] filefrom Last 3 Months Insurance + +--------+ +--------+ +---------+ | Payer | Benefi | Subscriber | Type | Phone | Address | | | t Plan | ID | | | | | | / | | | | | | | Group | | | | | + +--------+ +--------+ +---------+ | [employer] | [employer] | [id number] | Medica | [phone] | | MEDICAID HMO | HEALTH | | id | 9821 | | | | [place] | | | | | | | [place] | | | | | + +--------+ +--------+ +---------+ | [facility] | [employer] | [id number] | Indemn | | | | SERVICE | YELLOW | | ity | | | | | [place] | | | | | [...] | Self | [birth year] | Home: | [id number] | | | christopher/Kyle | | [phone] | [place] | | | jeni | | | [phone] | [address] | + +--------+ +--------+ + +
--- OUTSIDE RECORDS SUMMARY | ~2018-10-01 | XMS | Clinical Summary ---
Demographics + + + | Address | [address] | | | [place] [address] | + + + | Home Phone [...] [address] | | | | | [address] | | + + + + + Care Team Providers + +------+ + | Care Jv Baseball Coach Name | Role | Phone | + +------+ + PP | Unavailable | + +------+ + Source Comments [facility] is fully live on both [facility] and [facility] InPatient.[facility]ly [facility] Allergies Not on File Current Medications Not [...] | | | | vaccination (#1) | 8 | | | + + + + + Results Not on filefrom Last 3 Months"
--- OUTSIDE RECORDS SUMMARY | ~2018-10-01 | XMS | Clinical Summary ---
Demographics + + + | Address | [address] | | | [place] [address] | + + + | Home Phone | | + + + | Preferred Language | Unknown | + + + | Marital Status | Unknown | + + + | Mormon Affiliation | Unknown | + + + | Race | Unknown | + + + | Ethnic Group | Unknown | + + + Author + + + | Author | [email or web address] | + + + | Organization | [facility] | + + + | Address | Unknown | + + + | Phone | Unavailable | + + + Support + + +---------+ + | Name | Relationship | Address | Phone | + + +---------+ + | Sachin Dwyer | ECON | Unknown | | + + +---------+ + Care Team Providers + +------+ + | Care Piper Installer Name | Role | Phone | [...] | 270 | 1 | 01/2 | 01/2 | Activ | | (APRESOLINE) 25 MG [...] Noted Date | + + + | Acute renal failure superimposed on stage 4 chronic kidney | 08/10/2018 | | disease (HCC) | | + + + | Non-ischemic cardiomyopathy (HCC) | 08/10/2018 | + + + | Essential hypertension | 08/06/2018 | + + + | Type 2 diabetes mellitus with complication, with long-term | 08/06/2018 | | current use of insulin (HCC) | | [...] + + + + | 08/21/ | Office | | Brynn Crawford MD | Non-ischemic | | 2018 | Visit | | | cardiomyopathy (HCC) | | | | | | (Primary Dx); | | | | | | Essential | | | | | | hypertension | +--------+ + + + + | 08/21/ | Telephone | | Luis, | | | 2018 | | | JOSESITO Suarez | | +--------+ + + + + | 08/11/ | Telephone | | Luis, | | | 2019 | | | JOSESITO Suarez | | +--------+ + + + + | 08/08/ | Procedure | | | | | 2019 | Pass | | | | +--------+ + + + + | 08/05/ | Hospital | | Brynn Crawford MD | CAD in [place] | | 2018 - | Encounter | | Kimberly Owens DO | artery; Congestive | | | | | Gustavo Castorena MD | heart failure, | | 08/11/ | | | 1, [facility] [employer] | unspecified HF | | 2018 | | | | chronicity, | | | | | | unspecified heart | | | | | | failure type (HCC); | | | | | | Precordial pain; | | | | | | Ischemic | | | | | | cardiomyopathy | +--------+ + + + + +---+ + | | Discharge | | | Summaries | | | - Raffaele, | | | MD Gustavo - | | | 08/10/2018 | | | 9:42 AM | | | PST | | | Formatting | | | of this | | | note may be | | | different | | | from the | | | original.[facility] | [facility]: | | | Hospitalist | | | Physician | | | Discharge | | | Summary | | | Patient | | | ID:Maria Ines | | | Marilee | | | JimMRN: | | | [id number]/ | | | | | | y.o.Admit | | | date: | | | 08/05/2018Di | | | scharge | | | date: | | | 08/11/2018Ad | | | mitting | | | Physician: | | | Iyad | | | MD Ty | | | Discharge | | | Physician: | | | Gustavo | | | Raffaele, | | | MDConsultan | | | ts: | | | Treatment | | | Team: | | | Admitting | | | Provider: | | | Iyad | | | Ty, | | | MDPrimary | | | Discharge | | | Diagnoses: | | | Principal | | | Problem: | | | Acute renal | | | failure | | | superimpose | | | d on stage | | | 4 chronic | | | kidney | | | disease | | | (HCC)Active | | | Problems: | | | Essential | | | hypertensio | | | n Type 2 | | | diabetes | | | mellitus | | | with | | | complicatio | | | n, with | | | long-term | | | current use | | | of insulin | | | (HCC) | | | Non-ischemi | | | c | | | cardiomyopa | | | thy (HCC) | | | Hospital | | | Course: Ms. 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 | | | She | | | presented | | | from | | | outpatient | | | for | | | scheduled | | | cardiac | | | cath with | | | Dr. Crawford. | | | She had | | | routine | | | labs drawn | | | which | | | showed | | | hyperkalemi | | | a to 6.4. | | | She was | | | notified of | | | results | | | but was | | | asymptomati | | | c. Labs | | | were | | | re-drawn on | | | arrival | | | and repeat | | | K was 5.8. | | | She is | | | asymptomati | | | c. | | | Cardiology | | | decided to | | | forgo | | | scheduled | | | cath given | | | acute renal | | | failure. | | | Hospitalist | | | and | | | nephrology | | | were | | | consulted. | | | Labs: Na | | | 142, K 5.8, | | | Ch 112, | | | CO2 19, BUN | | | 64, Cr | | | 2.6, Glu | | | 111.EKG: | | | Sinus | | | margret, no | | | ST changes, | | | no T wave | | | peaks or | | | inversions. | | | She was | | | taking | | | Torsemide, | | | and | | | lisinopril | | | at home, | | | and | | | chronically | | | On doxy | | | for toe | | | infection.S | | | he was | | | given | | | cocktail of | | | bicarb, | | | ca+, | | | insulin. | | | Held her | | | acei, | | | lasix. Was | | | started on | | | ivf, with | | | bicarb.Rach | | | l function | | | improved. | | | Renal usg = | | | no | | | hydronephro | | | sis. Dr | | | Miguel | | | mentioned | | | that likely | | | this is | | | not MIC, | | | and more | | | likely CKD. | | | So Dr | | | Ty took | | | patient | | | for cath | | | cardiac = | | | No | | | significant | | | coronary | | | artery | | | disease, | | | Elevated | | | LVEDP, 23 | | | mmHgHer BP | | | was | | | elevated | | | after | | | saline | | | resuscitati | | | on. . But | | | improved | | | with | | | addition of | | | HTN | | | meds.She | | | was given | | | iv iron for | | | iron def | | | anemia. | | | Needs outpt | | | C scope. | | | D/w | | | patient.Godwin | | | al Duplex | | | was -ve for | | | Renal art | | | stenosis. | | | But Dr | | | Miguel | | | still | | | recommended | | | avoid | | | ACEI/ARB.He | | | r BP | | | controlled | | | on BB, | | | hydralazine | | | . she will | | | f/u with | | | Dr Akoum in | | | clinic for | | | further | | | management. | | | Past | | | Medical | | | History: | | | Past | | | Medical | | | History | | | Diagnosis | | | Date | | | Acute | | | renal | | | failure | | | (HCC) | | | 08/05/2018 | | | | | | MIC | | | (acute | | | kidney | | | injury) | | | (HCC) | | | 08/08/2018 | | | | | | Asthma | | | | | | CAD | | | (coronary | | | artery | | | disease) | | | | | | CHF | | | (congestive | | | heart | | | failure) | | | (HCC) | | | CVA | | | (cerebral | | | vascular | | | accident) | | | (HCC) | | | HTN | | | (hypertensi | | | on) | | | | | | Hyperlipide | | | naldo | | | | | | Myocardial | | | infarct | | | (HCC) | | | Type 2 | | | diabetes | | | mellitus | | | (HCC) Past | | | Surgical | | | History | | | Procedure | | | Laterality | | | Date | | | | | | COLONOSCOPY | | | | | | Discharged | | | Condition: | | | Stable for | | | discharge | | | as stated | | | above.Signi | | | ficant | | | Diagnostic | | | Studies:Xr | | | Chest 2 | | | ViewResult | | | Date: | | | 08/06/2018No | | | acute | | | cardiopulmo | | | nary | | | abnormality | | | . Signed | | | by: Reeve, | | | Sachin Sign | | | Date/Time: | | | 08/06/2018 | | | 11:43 AMUs | | | Kidneys And | | | | | | BladderResu | | | lt Date: | | | 08/06/2018No | | | rmal-sized | | | both | | | kidneys | | | without | | | hydronephro | | | sis. | | | Urinary | | | bladder is | | | incompletel | | | y | | | evaluated. | | | Bilateral | | | ureteric | | | jets are | | | not | | | visualized. | | | Signed by: | | | Alfaro, | | | Pushpender | | | Sign | | | Date/Time: | | | 08/06/2018 | | | 9:09 AMEcho | | | Cardiac | | | Adult | | | CompleteRes | | | ult Date: | | | . | | | Overall | | | left | | | ventricular | | | systolic | | | function is | | | normal | | | with, an EF | | | between 60 | | | - 65 %. 2. | | | There is | | | moderate | | | concentric | | | left | | | ventricular | | | | | | hypertrophy | | | . 3. Mild | | | mitral | | | regurgitati | | | on is | | | present.Dis | | | charge | | | Vitals:Padma | | | ls: | | | 08/11/18 | | | 0303 | | | 08/11/18 | | | 0524 | | | 08/11/18 | | | 0739 | | | 08/11/18 | | | 0825 BP: | | | 121/59 | | | 149/80 | | | 129/75 | | | 119/57 BP | | | Location: | | | Right upper | | | arm Right | | | upper arm | | | Right upper | | | arm | | | Pulse: 72 | | | 70 66 Resp: | | | 18 18 20 | | | Temp: 98 | | | F (36.7 | | | C) 98.4 | | | F (36.9 | | | C) 97.9 | | | F (36.6 | | | C) | | | TempSrc: | | | Oral Oral | | | Axillary | | | SpO2: 96% | | | 97% 98% | | | Weight: | | | Height: | | | Discharge | | | Exam: | | | General: | | | ELDERLY | | | LOOKING | | | FEMALE IN | | | BED NO | | | DISTRESS. | | | Psych: | | | Alert and | | | oriented x | | | 3. Calm, | | | cooperative | | | .Cardiovasc | | | ular: | | | Regular | | | rate and | | | rhythm, no | | | murmurs, no | | | thrills. | | | Normal | | | PMI.Respira | | | tory: Clear | | | to | | | auscultatio | | | n, no | | | wheezing or | | | crackles, | | | breathing | | | non | | | labored.Gas | | | trointestin | | | al: Soft, | | | non-tender, | | | | | | non-distend | | | ed, | | | positive | | | bowel | | | sounds. No | | | HSM.Musculo | | | skeletal: | | | +1 edema in | | | bilateral | | | lower | | | extremities | | | . No joint | | | swelling.Sk | | | in: Warm | | | and dry, no | | | rashes. | | | PALLOR | | | Neck: No | | | JVD, | | | Trachea | | | midline.Rina | | | rological: | | | Non focal. | | | Motor | | | grossly | | | intact.LABS | | | : Recent | | | LabsLab | | | | | | 7 | | | | | | 2 | | | | | | 0 | | | | | | 0 WBC 5.46 | | | 5.17 5.62 | | | < > 5.91 | | | RBC 3.17* | | | 3.42* 3.56* | | | < > 3.67* | | | HGB 8.9* | | | 9.6* 10.0* | | | < > 10.2* | | | HCT 26.9* | | | 29.0* 30.4* | | | < > 31.1* | | | MCV 84.8 | | | 85.0 85.3 | | | < > 84.8 | | | MCH 28.0 | | | 28.1 28.0 | | | < > 27.8 | | | MCHC 33.1 | | | 33.1 32.8 | | | < > 32.8 | | | RDW 41.1 | | | 41.6 41.1 | | | < > 42.0 | | | PLT 148* | | | 161 169 < | | | > 182 MPV | | | 10.3 10.7 | | | 10.6 < > | | | 10.3 | | | DIFFTYPE | | | -- -- | | | -- -- | | | AUTOMATED < | | | > = values | | | in this | | | interval | | | not | | | displayed.R | | | ecent | | | LabsLab | | | | | | 0 | | | | | | 7 | | | | | | 2 NA 139 | | | 139 140 K | | | 5.0* 4.9 | | | 4.8 CL 108 | | | 107 108 CO2 | | | 23 24 22* | | | BUN 57* 53* | | | 48* | | | CREATININE | | | 2.2* 2.3* | | | 1.8* GLUF | | | 148* 165* | | | 140* No | | | results for | | | input(s): | | | CKTOTAL, | | | TROPONINI, | | | TROPONINT, | | | CKMBINDEX | | | in the last | | | 168 hours. | | | Recent | | | [facility] | | | | | | 0 | | | | | | 7 | | | | | | 2 PHOS 5.2* | | | 4.7 4.5 | | | Recent | | | Labs[facility] | | | | | | 2 | | | | | | 0 | | | | | | 1 MG 2.1 | | | 1.9 2.0 | | | Invalid | | | input(s): | | | ABGDisposit | | | ion: HOME | | | Follow | | | up:[facility] | | | [facility] | | | ClinicPO | | | [address] | | | n [place] | | | [phone] | | | [phone] | | | H Akoum, | | | [id number] | [address] | [address] | | | [place] | | | [address] | | | [place] | | | [phone] | | [phone] | | | ule an | | | appointment | | | as soon as | | | possible | | | for a visit | | | in 1 week | | | Medication | | | List START | | | taking | | | these | | | medications | | | ascorbic | | | acid 500 MG | | | tabletQTY: | | | 30 | | | tabletRefil | | | ls: | | | 11Commonly | | | known as: | | | VITAMIN | | | CTake 1 | | | tablet by | | | mouth | | | daily. | | | Cholecalcif | | | silvia 2000 | | | units | | | TabsQTY: | | | 90 | | | tabletRefil | | | ls: 2Take | | | 2,000 Units | | | by mouth | | | daily. | | | ferrous | | | sulfate (65 | | | FE) 325 | | | (65 FE) MG | | | tabletQTY: | | | 30 | | | tabletRefil | | | ls: 2Take | | | 1 tablet by | | | mouth | | | daily with | | | breakfast. | | | hydrALAZINE | | | 25 MG | | | tabletQTY: | | | 270 | | | tabletRefil | | | ls: | | | 1Commonly | | | known as: | | | APRESOLINET | | | nick 3 | | | tablets by | | | mouth 3 | | | (three) | | | times | | | daily. | | | traMADol 50 | | | MG | | | tabletQTY: | | | 30 | | | tabletRefil | | | ls: | | | 0Commonly | | | known as: | | | ULTRAMTake | | | 1 tablet by | | | mouth | | | every 6 | | | (six) hours | | | as needed. | | | CHANGE | | | how you | | | take these | | | medications | | | | | | carvedilol | | | 3.125 MG | | | tabletQTY: | | | 60 | | | tabletRefil | | | ls: | | | 2Commonly | | | known as: | | | COREGTake 1 | | | tablet by | | | mouth 2 | | | (two) times | | | daily with | | | meals.What | | | changed: | | | medication | | | strength | | | how much | | | to take | | | CONTINUE | | | taking | | | these | | | medications | | | | | | acetaminoph | | | en 325 MG | | | tabletRefil | | | ls: | | | 0Commonly | | | known as: | | | TYLENOL | | | aspirin 81 | | | MG EC | | | tabletRefil | | | ls: 0 | | | atorvastati | | | n 10 MG | | | tabletRefil | | | ls: | | | 0Commonly | | | known as: | | | LIPITOR | | | doxycycline | | | 50 MG | | | tabletRefil | | | ls: | | | 0Commonly | | | known as: | | | ADOXA | | | fexofenadin | | | e 180 MG | | | tabletRefil | | | ls: | | | 0Commonly | | | known as: | | | TIAN | | | insulin | | | glargine | | | 100 UNIT/ML | | | | | | injectionRe | | | fills: | | | 0Commonly | | | known as: | | | LANTUS | | | melatonin 1 | | | MG | | | tabletRefil | | | ls: 0 You | | | might also | | | be taking | | | other | | | medications | | | not listed | | | above. If | | | you have | | | questions | | | about any | | | of your | | | other | | | medications | | | , talk to | | | the person | | | who | | | prescribed | | | them or | | | your | | | Primary | | | Care | | | Provider. | | | STOP | | | taking | | | these | | | medications | | | | | | furosemide | | | 20 MG | | | tabletCommo | | | nly known | | | as: LASIX | | | lisinopril | | | 10 MG | | | tabletCommo | | | nly known | | | as: | | | ZESTRIL | | | torsemide | | | 20 MG | | | tabletCommo | | | nly known | | | as: | | | DEMADEX | | | Where to | | | Get Your | | | Medications | | | You can | | | get these | | | medications | | | from any | | | pharmacy | | | Bring a | | | paper | | | prescriptio | | | n for each | | | of these | | | medications | | | | | | carvedilol | | | 3.125 MG | | | tablet | | | Cholecalcif | | | silvia 2000 | | | units | | | Tabs | | | ferrous | | | sulfate (65 | | | FE) 325 | | | (65 FE) MG | | | tablet | | | hydrALAZINE | | | 25 MG | | | tablet | | | traMADol 50 | | | MG tablet | | | Information | | | about | | | where to | | | get these | | | medications | | | is not yet | | | available | | | Ask your | | | nurse or | | | doctor | | | about these | | | | | | medications | | | ascorbic | | | acid 500 | | | MG tablet | | | Gustavo | | | Raffaele, | | | MD08/11/2018 | | | 10:53 | | | AMDischarge | | | took 41 | | | minutes, to | | | include | | | final | | | examination | | | , | | | discussion | | | of | | | admission, | | | and | | | preparation | | | of | | | prescriptio | | | ns, | | | instruction | | | s for | | | ongoing | | | care, | | | follow up | | | and | | | dictation | | | of summary. | +---+ + +--------+ +---+ + + | 08/05/ | Documentati | | Davi Dhaliwal MA | | | 2019 | on Only | | | | +--------+ +---+ + + | 07/18/ | Initial | | Brynn Crawford MD | CAD in [place] artery | | 2018 | consult | | | (Primary Dx); | | | | | | Congestive heart | | | | | | failure, unspecified | | | | | | HF chronicity, | | | | | | unspecified heart | | | | | | failure type (HCC); | | | | | | Precordial pain; | | | | | | Ischemic | | | | | | cardiomyopathy | +--------+ +---+ + + | 07/07/ | Documentati | | Davi Dhaliwal MA | | | 2017 | on Only | | | | +--------+ +---+ + + from Last 3 Months Family [...] + + + | Blood Pressure | 128/78 | 08/21/2018 11:42 AM PST | + + + + | Pulse | 66 | 08/21/2018 11:42 AM PST | + + + + | Temperature | 36.6 C (97.8 F) | 08/11/2018 11:36 AM PST | + + + + | Respiratory Rate | 18 | 08/21/2018 11:42 AM PST | + + + + | Oxygen Saturation | 100% | 08/21/2018 11:42 AM PST | + + + + | Inhaled Oxygen | - | - | | Concentration | | | + + + + | Weight | 88 kg (194 lb) | 08/21/2018 11:42 AM PST | + + + + | Height | 160 cm (5' 3") | 08/21/2018 11:42 AM PST | + + + + | Body Mass Index | 34.37 | 08/21/2018 11:42 AM PST | + + + + Plan of Treatment +--------+---------+ + + + | Date | Type | Specialty | Care Team | Description | +--------+---------+ + + + | 11/17/ | Office | | James Pearce MD | | | 2019 | Visit | | [address] | | | | | | [address] [place] [place] | | | | | | [address] | | | | | | | [...] + + | Hemoglobin A1c | | 08/06/2018 | | | | 9 | | | + + + + + | Microalbumin | | 08/07/2018 | | | Screening | 0 | | | + + + + + Procedures + +--------+ + + + | Procedure Name | Priori | Date/Time | Associated Diagnosis | Comments | | | ty | | | | + +--------+ + + + | POCT GLUCOSE | Routin | 08/11/2018 | | Results for this | | | e | 11:36 AM | | procedure are in the | | | | PST | | results section. | + +--------+ + + + | POCT GLUCOSE | Routin | 08/11/2018 | | [...] | + +--------+ + + + | POCT GLUCOSE | Routin | 08/10/2018 | | Results for this | | | e | 9:06 PM | | procedure are in the | | | | PST | | results section. | + +--------+ + + + | POCT GLUCOSE | Routin | 08/10/2018 | | Results for this | | | e | 4:16 PM | | procedure are in the | | | | PST | | results section. | + +--------+ + + + | US RENAL ARTERY | Routin | 08/10/2018 | | Results for this | | DUPLEX | e | 12:28 PM | | procedure are in the | | | | PST | | results section. | + +--------+ + + + | POCT GLUCOSE | Routin | 08/10/2018 | | Results for this | | | e | 12:00 PM | | procedure are in the | | | | PST | | results section. | + +--------+ + + + | POCT GLUCOSE | Routin | 08/10/2018 | | [...] + +--------+ + + + | CBC W/NO DIFF | Routin | 08/10/2018 | | Results for this | | | e | 4:17 AM | | procedure are in the | | | | PST | | results section. | + +--------+ + + + | POCT GLUCOSE | Routin | 08/09/2018 | | Results for this | | | e | 9:09 PM | | procedure are in the | | | | PST | | results section. | + +--------+ + + + | POCT GLUCOSE | Routin | 08/09/2018 | | Results for this | | | e | 4:13 PM | | procedure are in the | | | | PST | | results section. | + +--------+ + + + | POCT GLUCOSE | Routin | 08/09/2018 | | [...] + +--------+ + + + | CBC W/NO DIFF | Routin | 08/09/2018 | | Results [...] | + +--------+ + + + | POCT GLUCOSE | Routin | 08/09/2018 | | Results for this | | | e | 5:08 AM | | procedure are in the | | | | PST | | results section. | + +--------+ + + + | POCT GLUCOSE | Routin | 08/08/2018 | | Results for this | | | e | 8:57 PM | | procedure are in the | | | | PST | | results section. | + +--------+ + + + | CL LEFT HEART CATH | Routin | 08/08/2018 | | Results for this | | WITH CORONARY ANGIO | e | 6:10 PM | | procedure are in the | | | | PST | | results section. | + +--------+ + + + | POCT GLUCOSE | Routin | 08/08/2018 | | Results for this | | | e | 4:31 PM | | procedure are in the | | | | PST | | results section. | + +--------+ + + + | LACTATE | Add-On | 08/08/2018 | | Results for this | | DEHYDROGENASE | | 12:12 PM | | procedure are in the | | | | PST | | results section. | + +--------+ + + + | VITAMIN D 25 HYDROXY | Add-On | 08/08/2018 | | Results for this | | | | 12:12 PM | | procedure are in the | | | | PST | | results section. | + +--------+ + + + | PTH, INTACT AND | Add-On | 08/08/2018 | | Results for this | | CALCIUM | | 12:12 PM | | procedure are in the | | | | PST | | results section. | + +--------+ + + + | IRON AND TIBC | Add-On | 08/08/2018 | | Results for this | | | | 12:12 PM | | procedure are in the | | | | PST | | results section. | + +--------+ + + + | FERRITIN | Add-On | 08/08/2018 | | Results for this | | | | 12:12 PM | | procedure are in the | | | | PST | | results section. | + +--------+ + + + | HEPATITIS | Add-On | 08/08/2018 | | Results for this | | PANEL,CHRONIC | | 12:12 PM | | procedure are in the | | | | PST | | results section. | + +--------+ + + + | C3 AND C4 COMPLEMENT | Add-On | 08/08/2018 | | Results for this | | | | 12:12 PM | | procedure are in the | | | | PST | | results section. | + +--------+ + + + | CONCETTA AND ANCA | Add-On | 08/08/2018 | | Results for this | | REFLEXIVE | | 12:12 PM | | procedure are in the | | | | PST | | results section. | + +--------+ + + + | FIORELLA/NERY SORENSON | Add-On | 08/08/2018 | | Results for this | | | | 12:12 PM | | procedure are in the | | | | PST | | results section. | + +--------+ + + + | IMMUNOFIXATION | Add-On | 08/08/2018 | | Results for this | | ELECTROPHORESIS | | 12:12 PM | | procedure are in the | | | | PST | | results section. | + +--------+ + + + | URIC ACID | Add-On | 08/08/2018 | | Results for this | | | | 12:12 PM | | procedure are in the | | | | PST | | results section. | + +--------+ + + + | POCT GLUCOSE | Routin | 08/08/2018 | | Results for this | | | e | 12:03 PM | | procedure are in the | | | | PST | | results section. | + +--------+ + + + | POCT GLUCOSE | Routin | 08/08/2018 | | [...] + +--------+ + + + | CBC W/NO DIFF | Routin | 08/08/2018 | | Results [...] | + +--------+ + + + | POCT GLUCOSE | Routin | 08/07/2018 | | Results for this | | | e | 9:07 PM | | procedure are in the | | | | PST | | results section. | + +--------+ + + + | POCT GLUCOSE | Routin | 08/07/2018 | | Results for this | | | e | 4:15 PM | | procedure are in the | | | | PST | | results section. | + +--------+ + + + | BASIC METABOLIC | STAT | 08/07/2018 | | Results for this | | PANEL | | 2:56 PM | | procedure are in the | | | | PST | | results section. | + +--------+ + + + | POCT GLUCOSE | Routin | 08/07/2018 | | Results for this | | | e | 11:51 AM | | procedure are in the | | | | PST | | results section. | + +--------+ + + + | PROTEIN, URINE, | DARRIUS | 08/07/2018 | | Results for this | | RANDOM | | 9:00 AM | | procedure are in the | | | | PST | | results section. | + +--------+ + + + | CREATININE, URINE, | DARRIUS | 08/07/2018 | | Results for this | | RANDOM | | 9:00 AM | | procedure are in the | | | | PST | | results section. | + +--------+ + + + | MICROALBUMIN / | Routin | 08/07/2018 | | Results for this | | CREATININE URINE | e | 9:00 AM | | procedure are in the | | RATIO | | PST | | results section. | + +--------+ + + + | PROTEIN / CREATININE | DARRIUS | 08/07/2018 | | Results for this | | RATIO, URINE | | 9:00 AM | | procedure are in the | | | | PST | | results section. | + +--------+ + + + | POCT GLUCOSE | Routin | 08/07/2018 | | [...] + +--------+ + + + | CBC W/NO DIFF | Routin | 08/07/2018 | | Results for this | | | e | 4:41 AM | | procedure are in the | | | | PST | | results section. | + +--------+ + + + | RENAL FUNCTION PANEL | Routin | 08/07/2018 | | Results for this | | | e - AM | 4:41 AM | | procedure are in the | | | | PST | | results section. | + +--------+ + + + | POCT GLUCOSE | Routin | 08/06/2018 | | Results for this | | | e | 9:02 PM | | procedure are in the | | | | PST | | results section. | + +--------+ + + + | POCT GLUCOSE | Routin | 08/06/2018 | | Results for this | | | e | 4:36 PM | | procedure are in the | | | | PST | | results section. | + +--------+ + + + | ECHO CARDIAC ADULT | Routin | 08/06/2018 | | Results for this | | COMPLETE | e | 3:42 PM | | procedure are in the | | | | PST | | results section. | + +--------+ + + + | URINE MICROSCOPIC | Routin | 08/06/2018 | | Results for this | | ONLY | e | 3:10 PM | | procedure are in the | | | | PST | | results section. | + +--------+ + + + | URINALYSIS (REFLEX | Routin | 08/06/2018 | | Results for this | | TO MICRO) | e | 3:10 PM | | procedure are in the | | | | PST | | results section. | + +--------+ + + + | POTASSIUM | STAT | 08/06/2018 | | Results for this | | | | 12:01 PM | | procedure are in the | | | | PST | | results section. | + +--------+ + + + | POCT GLUCOSE | Routin | 08/06/2018 | | Results for this | | | e | 11:35 AM | | procedure are in the | | | | PST | | results section. | + +--------+ + + + | XR CHEST 2 VIEW | Routin | 08/06/2018 | | Results for this | | FRONTAL AND LATERAL | e | 11:15 AM | | procedure are in the | | | | PST | | results section. | + +--------+ + + + | HEMOGLOBIN A1C | Routin | 08/06/2018 | | Results for this | | | e - AM | 6:05 AM | | procedure are in the | | | | PST | | results section. | + +--------+ + + + | PHOSPHOROUS | Routin | 08/06/2018 | | Results [...] + + + | BASIC METABOLIC | STAT | 08/06/2018 | | Results for this | | PANEL | | 6:05 AM | | procedure are in the | | | | PST | | results section. | + +--------+ + + + | CBC W/NO DIFF | Routin | 08/06/2018 | | Results for this | | | e | 6:05 AM | | procedure are in the | | | | PST | | results section. | + +--------+ + + + | POCT GLUCOSE | Routin | 08/06/2018 | | Results for this | | | e | 5:42 AM | | procedure are in the | | | | PST | | results section. | + +--------+ + + + | POTASSIUM | STAT | 08/06/2018 | | Results for this | | | | 12:36 AM | | procedure are in the | | | | PST | | results section. | + +--------+ + + + | POCT GLUCOSE | Routin | 08/05/2018 | | Results for this | | | e | 9:09 PM | | procedure are in the | | | | PST | | results section. | + +--------+ + + + | POTASSIUM | STAT | 08/05/2018 | | Results for this | | | | 6:40 PM | | procedure are in the | | | | PST | | results section. | + +--------+ + + + | US KIDNEYS AND | Routin | 08/05/2018 | | Results for this | | BLADDER | e | 3:57 PM | | procedure are in the | | | | PST | | results section. | + +--------+ + + + | CBC W/AUTO DIFF | STAT | 08/05/2018 | | Results for this | | (REFLEX TO MANUAL) | | 11:00 AM | | procedure are in the | | | | PST | | results section. | + +--------+ + + + | BASIC METABOLIC | STAT | 08/05/2018 | | Results for this | | PANEL | | 11:00 AM | | procedure are [...] | + +--------+ + + + | EKG STANDARD 12 LEAD | Routin | 07/18/2018 | CAD in [place] | Results for this | | | e | 11:37 AM | artery Congestive | procedure are in the | | | | PST | heart failure, | results section. | | | | | unspecified HF | | | | | | chronicity, | | | | | | unspecified heart | | | | | | failure type (HCC) | | + +--------+ + + + from Last 3 Months Results POCT glucose (08/11/2018 11:36 AM)Only the most recent of 23 results within the time period is included. + + + + + | Component | Value | Ref Range | Performed At | + + + + + | GLUCOSE,POC SCREEN | 151 (H)Comment: Testing | 65 - 99 mg/dL | [facility] | | | performed at [facility];[address];[place], [place] | | | | | [address] | | | + + + + + + + + + + | Performing | Address | City/State/Zipcode | Phone Number | | Organization | | | | + + + + + | [facility] | [address] | [place] [address] | | + + + + + Renal function panel (08/11/2018 4:20 AM)Only the most recent of 5 results within the time period is included. + + + + + | Component | Value | Ref Range | Performed At | + + + + + | SODIUM | 139 | 135 - 145 mmol/L | [facility] | | | | | LABORATORY | + + + + + | POTASSIUM | 5.0 (H) | 3.5 - 4.9 mmol/L | [facility] | | | | | LABORATORY | + + + + + | CHLORIDE | 108 | 99 - 109 mmol/L | [facility] | | | | | LABORATORY | + + + + + | CO2 | 23 | 23 - 32 mmol/L | [facility] | | | | | LABORATORY | + + + + + | ANION GAP AGAP | 13 | 5 - 20 mmol/L | [facility] | | | | | LABORATORY | + + + + + | GLUCOSE | 148 (H) | 65 - 99 mg/dL | [facility] | | | | | LABORATORY | + + + + + | BUN | 57 (H) | 8 - 25 mg/dL | [facility] | | | | | LABORATORY | + + + + + | CREATININE | 2.2 (H) | 0.50 - 1.00 mg/dL | [facility] | | | | | LABORATORY | + + + + + | CALCIUM | 7.6 (L) | 8.5 - 10.5 mg/dL | [facility] | | | | | LABORATORY | + + + + + | Albumin | 2.1 (L) | 3.3 - 4.8 g/dL | [facility] | | | | | LABORATORY | + + + + + | PHOSPHORUS | 5.2 (H) | 2.3 - 4.8 mg/dL | [facility] | | | | | LABORATORY | + + + + + | EGFR | 23 (L)Comment: GFR <60: | >60 mL/min/1.73m2 | [facility] | | | CHRONIC KIDNEY DISEASE, | | LABORATORY | | | IF FOUND OVER A 3 MONTH | | | | | PERIOD.GFR <15: KIDNEY | | | | | FAILURE.FOR | | | | | AMERICANS, MULTIPLY THE | | | | | CALCULATED GFR BY | | | | | 1.210.This eGFR is | | | | | calculated using the | | | | | [facility] traceable | | | | | equation.Testing | | | | | performed at [facility], [address] | | | | | [facility], | | | | | [place] [address] | | | + + + + + + + | Specimen | + + | Blood | + + + + + + + | Performing | Address | City/State/Zipcode | Phone Number | | Organization | | | | + + + + + | [facility] | [address] | [place] [address] | [phone] | | LABORATORY | [address] | | | + + + + + US renal artery duplex (08/10/2018 12:28 PM) + + + | Impressions | Performed At | + + + | 1. Findings do not suggest renal artery stenosis based off of peak | [facility] | | systolic velocity and renal aortic ratios. 2. The cortical resistive | RADIOLOGY | | indices are elevated and consistent with reported medical renal | | | disease. Doppler Criteria Renal Aortic Ratio (RAR) >3.5 = > 60% | | | stenosis Cortical Resistive Index (RI) >.70 suggests medical renal | | | disease (intrinsic) Signed by: Shanice Doyle Date/Time: 08/10/2018 | | | 3:50 PM | | + + + + + + | Narrative | Performed At | + + + | ULTRASOUND KIDNEYS, DUPLEX CLINICAL INFORMATION: Chronic kidney | [facility] | | disease. Hypertension. COMPARISON: US KIDNEYS AND BLADDER | RADIOLOGY | | (08/05/2018); PROCEDURE: Grayscale evaluation of [...] x 7.5 cm on the | | | left. No significant cortical thinning. No hydronephrosis or | | | visible calculus. Further evaluation limited. Doppler (all | | | velocities cm/sec): Suprarenal Aorta: 101 Right Kidney: Renal | | | Artery Peak Systolic Velocity: 150 Renal Aortic Ratio: 1.02 Cortical | | | Resistive Index: 0.77-0.93 Right Renal Vein: Patent, 35 Left | | | Kidney: Renal Artery Peak Systolic Velocity: 131 Renal Aortic Ratio: | | | 0.64-0.89 Cortical Resistive Index: 0.82-0.93 Left Renal Vein: | | | Patent, 70 | | + + + + + | Procedure Note | + + | Madhu, Rad Results In - 08/10/2018 3:53 PM PST ULTRASOUND KIDNEYS, DUPLEX | | CLINICAL INFORMATION: [...] Date/Time: 08/10/2018 3:50 PM | + + + + + + + | Performing | Address | City/State/Zipcode | Phone Number | | Organization | | | | + + + + + | [facility] | [address] | [place] [address] | | + + + + + CBC w/no Diff (08/10/2018 4:17 AM)Only the most recent of 5 results within the time period is included. + + + + + | Component | Value | Ref Range | Performed At | + + + + + | WBC | 5.46 | 3.80 - 11.00 K/uL | [facility] | | | | | LABORATORY | + + + + + | RBC | 3.17 (L) | 3.70 - 5.10 M/uL | [facility] | | | | | LABORATORY | + + + + + | HGB | 8.9 (L) | 11.3 - 15.5 g/dL | [facility] | | | | | LABORATORY | + + + + + | HCT | 26.9 (L) | 34.0 - 46.0 % | [facility] | | | | | LABORATORY | + + + + + | MCV | 84.8 | 80.0 - 100.0 fl | [facility] | | | | | LABORATORY | + + + + + | MCH | 28.0 | 27.0 - 34.0 pg | [facility] | | | | | LABORATORY | + + + + + | MCHC | 33.1 | 32.0 - 35.5 g/dL | [facility] | | | | | LABORATORY | + + + + + | RDW SD | 41.1 | 37 - 53 fl | [facility] | | | | | LABORATORY | + + + + + | PLT | 148 (L) | 150 - 400 K/uL | [facility] | | | | | LABORATORY | + + + + + | MPV | 10.3Comment: Testing | fl | [facility] | | | performed at [facility], [address] | | LABORATORY | | | [facility], | | | | | [place] [address] | | | + + + + + + + + + + | Performing | Address | City/State/Zipcode | Phone Number | | Organization | | | | + + + + + | [facility] | [address] | [place] [address] | [phone] | | LABORATORY | [address] | | | + + + + + Magnesium (08/09/2018 5:22 AM)Only the most recent of 4 results within the time period is included. + + + + + | Component | Value | Ref Range | Performed At | + + + + + | MAGNESIUM | 2.1Comment: Testing | 1.7 - 2.4 mg/dL | [facility] | | | performed at [facility], [address] | | LABORATORY | | | [facility], | | | | | [place] [address] | | | + + + + + + + + + + | Performing | Address | City/State/Zipcode | Phone Number | | Organization | | | | + + + + + | [facility] | [address] | [place] [address] | [phone] | | LABORATORY | [address]vd[address] | | | + + + + + CL left heart cath with coronary angio (08/08/2018 6:10 PM) + + + | Narrative | Performed At | + + + | [facility] | | | RADIOLOGY | | BRIEF HISTORY: Mrs. Martin is [...] radial artery and a | | | 6-Syrian sheath was placed. The JL-3.5 catheter was then advanced | | | under fluoroscopic guidance with the use of a J-tipped wire and | | | engaged with the left main. Projections of the left coronary | | | system were done with the use of contrast injections. The catheter | | | was then exchanged over JR4 catheter, which was advanced [...] circumflex. Left main was free of disease. | | | 3. Left anterior descending artery and the diagonal branches were | | | free of disease. 4. Left circumflex coronary artery and the | | | marginal branches were free of disease. 5. Right coronary artery | | | was large, dominant vessel and free of disease. CONCLUSIONS AND | | | RECOMMENDATIONS 1. No significant coronary artery disease. | | | 2. Recommend continuation of blood pressure control. Read by | | | BRYNN CRAWFORD MD 08/10/2018 08:02 P | | + + + + + | Procedure Note | + + | Darin Leung Results In - 08/11/2018 6:02 PM PST | | | | BRIEF HISTORY: Mrs. [...] right radial artery and a | | 6-Syrian sheath was placed. The JL-3.5 catheter was [...] | + + + + + | [facility] | [address] | [place] [address] | | + + + + + FIORELLA/ NERY TALLEY LT, CH RAT (08/08/2018 12:12 PM) + + + + + | Component | Value | Ref Range | Performed At | + + + + + | [facility] | 96.5 (H)Comment: | mg/L | [facility] | | | Reference range: 3.3 to | | | | | 19.4 | | | + + + + + | [facility] | 64.3 (H)Comment: | mg/L | [facility] | | | Reference range: 5.7 to | | | | | 26.3 | | | + + + + + | [facility] | 1.50Comment: Reference | | [facility] | | RATIO | range: 0.26 to | | | | | 1.65Testing performed at | | | | | [facility], [address] | | | | | [place] | | | | | [place] [address] | | | + + + + + + + + + + | Performing | Address | City/State/Zipcode | Phone Number | | Organization | | | | + + + + + | [facility] | [address] | [place] [address] | | + + + + + C3 and C4 complement (08/08/2018 12:12 PM) + + + + + | Component | Value | Ref Range | Performed At | + + + + + | COMPLEMENT C3 | 132 | 90 - 180 mg/dL | [facility] | | | | | LABORATORY | + + + + + | COMPLEMENT C4 | 26.0Comment: Testing | 10 - 40 mg/dL | [facility] | | | performed at [facility], [address] | | LABORATORY | | | [place], | | | | | [place] [address] | | | + + + + + + + + + + | Performing | Address | City/State/Zipcode | Phone Number | | Organization | | | | + + + + + | [facility] | [address] | [place] [address] | [phone] | | LABORATORY | [address]vd[address] | | | + + + + + Hepatitis panel, Chronic (Reflex) (08/08/2018 12:12 PM) + + + + + | Component | Value | Ref Range | Performed At | + + + + + | Hep A Total Ab | REACTIVE (A) | NON REACTIVE | [facility] | | | | | LABORATORY | + + + + + | HEP B SURFACE AG | NON REACTIVE | NON REACTIVE | [facility] | | | | | LABORATORY | + + + + + | HEP B CORE AB,TOTAL | NON REACTIVE | NON REACTIVE | [facility] | | | | | LABORATORY | + + + + + | HEP B SURFACE | <0.35Comment: | <1.00 IV | [facility] | | ANTIBODY | <1.00 | | LABORATORY | | | Non Immune1.00 OR | | | | | MORE Indicates | | | | | vaccine response or | | | | | response to HBV | | | | | infection. An Index | | | | | Value (IV) of 1.00 is | | | | | equivalent to 10 | | | | | mIU/mL. Samples with | | | | | an IV of 1.00 or greater | | | | | are considered reactive | | | | | (protected) in | | | | | accordance with CDC | | | | | Guidelines. | | | + + + + + | HEPATITIS C | NON REACTIVE | NON REACTIVE | [facility] | | | | | LABORATORY | + + + + + | HEPATITIS INTERP | Current or past HAV | | [facility] | | | infection. No serologic | | LABORATORY | | | evidence of HCV | | | | | infection or HBV | | | | | infection or | | | | | vaccination.Comment: | | | | | Testing performed at | | | | | [facility], [address] [place] [address] | | | | | [place] | | | | | [address] | | | + + + + + + + + + + | Performing | Address | City/State/Zipcode | Phone Number | | Organization | | | | + + + + + | [facility] | [address] | [place] [address] | [phone] | | LABORATORY | [address] | | | + + + + + Iron panel (08/08/2018 12:12 PM) + + + + + | Component | Value | Ref Range | Performed At | + + + + + | IRON | 50 | 30 - 180 ug/dL | [facility] | | | | | LABORATORY | + + + + + | TIBC | 211 (L) | 260 - 490 ug/dL | [facility] | | | | | LABORATORY | + + + + + | IRON % SAT | 24Comment: Testing | 15 - 50 % | [facility] | | | performed at [facility], [address] | | LABORATORY | | | [facility], | | | | | [place] [address] | | | + + + + + + + | Specimen | + + | Blood | + + + + + + + | Performing | Address | City/State/Zipcode | Phone Number | | Organization | | | | + + + + + | [facility] | [address] [place] [address] | [place] [address] | [phone] | | LABORATORY | [address] | | | + + + + + PTH, intact and calcium (08/08/2018 12:12 PM) + + + + + | Component | Value | Ref Range | Performed At | + + + + + | CALCIUM | 8.0 (L) | 8.5 - 10.5 mg/dL | [facility] | | | | | LABORATORY | + + + + + | PTH,INTACT | 126.9 (H)Comment: | 12 - 88 pg/mL | [facility] | | | Nomogram suggests | | LABORATORY | | | Secondary | | | | | Hyperparathyroidism: | | | | | Rickets, Osteomalacia, | | | | | Chronic Renal Failure, | | | | | Fanconi Syndrome, Renal | | | | | Tubular Acidosis, | | | | | Vitamin D deficiency | | | | | secondary to | | | | | Malabsorption, Renal | | | | | Failure or Pseudo | | | | | Hyperparathyroidism.Diag | | | | | nosis of parathyroid | | | | | disease requires both | | | | | clinical and laboratory | | | | | data.Testing performed | | | | | at [facility], [address] | | | | | [place], | | | | | [place] [address] | | | + + + + + + + | Specimen | + + | Blood | + + + + + + + | Performing | Address | City/State/Zipcode | Phone Number | | Organization | | | | + + + + + | [facility] | [address] | [place] [address] | [phone] | | LABORATORY | [address] | | | + + + + + Vitamin D,25 hydroxy (08/08/2018 12:12 PM) + + + + + | Component | Value | Ref Range | Performed At | + + + + + | VITAMIN D,25 HYDROXY | <12 (L)Comment: <20 | 30 - 150 ng/mL | [facility] | | | ng/mL Suggest | | LABORATORY | | | s deficiency of 25-OH | | | | | Vitamin D.20-29 | | | | | ng/mL Suggests a | | | | | relative insufficiency | | | | | of 25-OH Vitamin | | | | | D.30-150 ng/mL | | | | | Suggests a sufficient | | | | | level of 25-OH Vitamin | | | | | D.>150 ng/mL | | | | | Toxic level of 25-OH | | | | | Vitamin D.Blood levels | | | | | of 25 Hydroxy Vitamin D | | | | | vary with the extent of | | | | | sun exposure. Values | | | | | tend to be highest in | | | | | late summer and lowest | | | | | in the spring. Values | | | | | also tend to decrease | | | | | with age, due to | | | | | decreased precursor | | | | | synthesis in the | | | | | skin.Testing performed | | | | | at [facility], [address] | | | | [address], | | | | | [place] [address] | | | + + + + + + + | Specimen | + + | Blood | + + + + + + + | Performing | Address | City/State/Zipcode | Phone Number | | Organization | | | | + + + + + | [facility] | [address] | [place] [address] | [phone] | | LABORATORY | [address] | | | + + + + + CONCETTA and ANCA REFLEXIVE (08/08/2018 12:12 PM) + + + + + | Component | Value | Ref Range | Performed At | + + + + + | CONCETTA | NegativeComment: | | [facility] | | | Reference range: | | | | | NegativeTesting | | | | | performed at [facility], [address] | | | | | [place] | | | | | [place] [address] | | | + + + + + | CYTOPLASMIC (C ANCA) | <1:20Comment: Reference | titer | [facility] | | | range: Neg:<1:20 | | | + + + + + | PERINUCLEAR (P ANCA) | <1:20Comment: Reference | titer | [facility] | | | range: Neg:<1:20 The | | | | | presence of positive | | | | | fluorescence exhibiting | | | | | P-ANCA or C-ANCApatterns | | | | | alone is not specific | | | | | for the diagnosis of | | | | | Mitch'sGranulomatosis | | | | | (WG) or microscopic | | | | | polyangiitis. Decisions | | | | | abouttreatment should | | | | | not be based solely on | | | | | ANCA IFA | | | | | results. TheInternati | | | | | onal ANCA Group | | | | | Consensus recommends | | | | | follow up testing | | | | | ofpositive sera with | | | | | both NV-3 and MPO-ANCA | | | | | enzyme immunoassays. | | | | | Asmany as 5% serum | | | | | samples are positive | | | | | only by EIA.Ref. AM J | | | | | Clin Pathol | | | | | 1998;[id number]. | | | + + + + + | ATYPICAL P ANCA | 1:640 (H)Comment: | titer | [facility] | | | Reference range: | | | | | Neg:<1:20 The atypical | | | | | pANCA pattern has been | | | | | observed in a | | | | | significantpercentage of | | | | | patients with | | | | | ulcerative colitis, | | | | | primary | | | | | sclerosingcholangitis | | | | | and autoimmune | | | | | hepatitis. | | | + + + + + | MYELOPEROXIDASE AB | <9.0Comment: Reference | U/mL | [facility] | | | range: 0.0 to 9.0 | | | + + + + + | ANTI PROTEINASE 3 | <3.5Comment: Reference | U/mL | [facility] | | | range: 0.0 to 3.5Testing | | | | | performed by [facility], | | | | | [address], | | | | | [facility] [address] | | | + + + + + + + | Specimen | + + | Blood | + + + + + + + | Performing | Address | City/State/Zipcode | Phone Number | | Organization | | | | + + + + + | [facility] | [address] | [place] [address] | | + + + + + Immunofixation,Serum (08/08/2018 12:12 PM) + + + + + | Component | Value | Ref Range | Performed At | + + + + + | Immunofixation | (See Below)Comment: No | | [facility] | | Result, Serum | monoclonality | | | | | detected.Testing | | | | | performed at [facility], [address] | | | | | [facility] | | | | | [place] [address] | | | + + + + + | IgG | 1,100Comment: Reference | mg/dL | [facility] | | | range: 700 to 1600 | | | + + + + + | IGA | 163Comment: Reference | mg/dL | [facility] | | | range: 87 to 352 | | | + + + + + | IGM | 69Comment: Reference | mg/dL | [facility] | | | range: 26 to 217Testing | | | | | performed at [facility], | | | | | [address], [address], | | | | | [place] [address] | | | + + + + + + + | Specimen | + + | Blood | + + + + + + + | Performing | Address | City/State/Zipcode | Phone Number | | Organization | | | | + + + + + | [facility] | [address] | [facility] [address] | | + + + + + Uric acid (08/08/2018 12:12 PM) + + + + + | Component | Value | Ref Range | Performed At | + + + + + | URIC ACID | 6.6Comment: Testing | 2.2 - 7.1 mg/dL | [facility] | | | performed at [facility], [address] | | LABORATORY | | [address] [place], | | | | | [place] [address] | | | + + + + + + + | Specimen | + + | Blood | + + + + + + + | Performing | Address | City/State/Zipcode | Phone Number | | Organization | | | | + + + + + | [facility] | [address] | [place] [address] | [phone] | | LABORATORY | [address]vd[address] | | | + + + + + Lactate dehydrogenase (08/08/2018 12:12 PM) + + + + + | Component | Value | Ref Range | Performed At | + + + + + | LDH | 255 (H)Comment: Testing | 115 - 225 U/L | [facility] | | | performed at [facility], [address] | | LABORATORY | | | [place], | | | | | [place] [address] | | | + + + + + + + | Specimen | + + | Blood | + + + + + + + | Performing | Address | City/State/Zipcode | Phone Number | | Organization | | | | + + + + + | [facility] | [address] | [place] [address] | [phone] | | LABORATORY | [address]vd[address] | | | + + + + + Ferritin (08/08/2018 12:12 PM) + + + + + | Component | Value | Ref Range | Performed At | + + + + + | FERRITIN | 66Comment: Testing | 6 - 170 ng/mL | [facility] | | | performed at [facility], [address] | | LABORATORY | | | [facility], | | | | | [place] [address] | | | + + + + + + + | Specimen | + + | Blood | + + + + + + + | Performing | Address | City/State/Zipcode | Phone Number | | Organization | | | | + + + + + | [facility] | [address] | [place] [address] | [phone] | | LABORATORY | [address] | | | + + + + + Basic metabolic panel (BMP) (08/07/2018 2:56 PM)Only the most recent of 4 results within t he time period is included. + + + + + | Component | Value | Ref Range | Performed At | + + + + + | SODIUM | 144 | 135 - 145 mmol/L | [facility] | + + + + + | POTASSIUM | 4.9 | 3.5 - 4.9 mmol/L | [facility] | + + + + + | CHLORIDE | 112 (H) | 99 - 109 mmol/L | [facility] | + + + + + | CO2 | 24 | 23 - 32 mmol/L | [facility] | + + + + + | ANION GAP AGAP | 13 | 5 - 20 mmol/L | [facility] | + + + + + | GLUCOSE | 159 (H) | 65 - 99 mg/dL | [facility] | + + + + + | BUN | 44 (H) | 8 - 25 mg/dL | [facility] | + + + + + | CREATININE | 2.0 (H) | 0.50 - 1.00 mg/dL | [facility] | + + + + + | BUN/CREAT | 22 | | [facility] | + + + + + | CALCIUM | 7.7 (L) | 8.5 - 10.5 mg/dL | [facility] | + + + + + | EGFR | 25 (L)Comment: GFR <60: | >60 mL/min/1.73m2 | [facility] | | | CHRONIC KIDNEY DISEASE, | | | | | IF FOUND OVER A 3 MONTH | | | | | PERIOD.GFR <15: KIDNEY | | | | | FAILURE.FOR | | | | | AMERICANS, MULTIPLY THE | | | | | CALCULATED GFR BY | | | | | 1.210.This eGFR is | | | | | calculated using the | | | | | [facility] traceable | | | | | equation.Testing | | | | | performed at [facility];[address] | | [address] [facility];[place], [place] | | | | | [address] | | | + + + + + + + | Specimen | + + | Blood | + + + + + + + | Performing | Address | City/State/Zipcode | Phone Number | | Organization | | | | + + + + + | [facility] | [address] | [place] [address] | | + + + + + Protein / creatinine ratio, urine (08/07/2018 9:00 AM) + + + + + | Component | Value | Ref Range | Performed At | + + + + + | UR | 4.982Comment: Testing | | [facility] | | PROTEIN/CREATININE | performed at [facility], [address] | | LABORATORY | | | [address], | | | | | [place] [address] | | | + + + + + + + | Specimen | + + | Urine - Urine, | | Unspecified Source | + + + + + + + | Performing | Address | City/State/Zipcode | Phone Number | | Organization | | | | + + + + + | [facility] | [address] | [place] [address] | [phone] | | LABORATORY | [address] | | | + + + + + Albumin/Creat Ratio (08/07/2018 9:00 AM) + + + + + | Component | Value | Ref Range | Performed At | + + + + + | ALBUMIN/CREAT RATIO | 3,125 (H)Comment: | <30 mg/g | [facility] | | | >300 Two of three A/C | | LABORATORY | | | ratios in this range | | | | | confirms overt clinical | | | | | nephropathy.Testing | | | | | performed at [facility], [address] | | | | [facility], | | | | | [place] [address] | | | + + + + + + + | Specimen | + + | Urine - Urine, | | Unspecified Source | + + + + + + + | Performing | Address | City/State/Zipcode | Phone Number | | Organization | | | | + + + + + | [facility] | [address] | [place] [address] | [phone] | | LABORATORY | [address] | | | + + + + + Protein, urine, random (08/07/2018 9:00 AM) + + + + + | Component | Value | Ref Range | Performed At | + + + + + | UR PROTEIN,RANDOM | 279Comment: NO NORMAL | mg/dL | [facility] | | | RANGE ESTABLISHEDTesting | | LABORATORY | | | performed at [facility], [address] | | | | [address], | | | | | [place] [address] | | | + + + + + + + + + + | Performing | Address | City/State/Zipcode | Phone Number | | Organization | | | | + + + + + | [facility] | [address] [place] [address] | [place] [address] | [phone] | | LABORATORY | [address] | | | + + + + + Creatinine, urine, random (08/07/2018 9:00 AM) + + + + + | Component | Value | Ref Range | Performed At | + + + + + | UR CREAT,RANDOM | 56.0Comment: NO NORMAL | mg/dL | [facility] | | | RANGE ESTABLISHEDTesting | | LABORATORY | | | performed at [facility], [address] | | | | [address] [facility], | | | | | [place] [address] | | | + + + + + + + + + + | Performing | Address | City/State/Zipcode | Phone Number | | Organization | | | | + + + + + | [facility] | [address] | [place] [address] | [phone] | | LABORATORY | [address] | | | + + + + + Echo cardiac adult complete (08/06/2018 3:42 PM) + +-------+ + + | Component | Value | Ref Range | Performed At | + +-------+ + + | LV EF | 65 | 50 - 70 % | [facility] | | | | | RADIOLOGY | + +-------+ + + + + + | Impressions | Performed At | + + + | 1. Overall left ventricular systolic function is normal with, an EF | [facility] | | between 60 - 65 %. 2. There is moderate concentric left ventricular | RADIOLOGY | | hypertrophy. 3. Mild mitral regurgitation is present. | | + + + + + + | Narrative | Performed At | + + + | Patient Name: Maria Ines Martin Date of : 1955 | [facility] | | Performing Physician: Brynn Crawford MD | RADIOLOGY | | | | | INDICATIONS shorttness [...] Ao asc: 3.07 cm Ao sinus: 3.44 | | | cm Ao st junct: 2.76 cm IVC: 1.62 cm EDV(Teich): 82.97 | | | ml IVSd: 1.41 cm LVIDd: 4.29 cm LVPWd: 1.35 cm LVOT | | | Diam: 1.97 cm %FS: 43.64 % EF(Teich): 75.14 % | | | ESV(Teich): 20.62 ml IVSs: 1.58 cm LVIDs: 2.42 cm | | | LVPWs: 2.13 cm SV(Teich): 62.34 ml LVEF MOD A2C: 62.55 % | | | SV MOD A2C: 55.73 ml LVEF MOD A4C: 66.91 % SV MOD A4C: | | | 52.66 ml EF Biplane: 64.60 % LVEDV MOD BP: 86.66 ml LVESV | | | MOD BP: 30.67 ml LVEDV MOD A2C: 89.09 ml LVLd A2C: 8.12 | | | cm LVEDV MOD A4C: 78.70 ml LVLd A4C: 7.49 cm LVESV MOD | | | A2C: 33.36 ml LVLs A2C: 6.39 cm LVESV MOD A4C: 26.03 ml | | | LVLs A4C: 5.70 cm CO Biplane: 3.85 l/min HR: 68.84 BPM | | | R-R: 871.55 ms LAESV(A-L): 76.45 ml LAESV Index (A-L): | | | 40.23 ml/m2 LAAs A2C: 24.44 cm2 LAESV A-L A2C: 74.48 ml | | | LALs A2C: 6.81 cm LAAs A4C: 21.96 cm2 LAESV A-L A4C: | | | 68.67 ml LALs A4C: 5.96 cm Junior: 13.73 cm2 RAEDV A-L: | | | 33.61 ml RAEDV MOD: 31.44 ml RALd: 4.76 cm EPSS: 2.39 | | | cm AV maxP.50 mmHg AV meanP.57 mmHg AV Vmax: | | | 1.76 m/s AV Vmean: 1.20 m/s AV VTI: 39.54 cm GISSELLE Vmax: | | | 2.19 cm2 GISSELLE (VTI): 2.37 cm2 AVAI Vmax: 0.00 cm2/m2 AVAI | | | (VTI): 0.00 cm2/m2 LVOT maxP.42 mmHg LVOT meanPG: | | | 3.78 mmHg LVSI Dopp: 49.52 ml/m2 LVSV Dopp: 94.10 ml LVOT | | | Vmax: 1.26 m/s LVOT Vmean: 0.92 m/s LVOT VTI: 30.73 cm | | | MV A Brock: 1.18 m/s MV DecT: 196.01 ms MV E Brock: 1.09 m/s | | | MV E/A Ratio: 0.93 E/E' Av.43 E' Av.07 m/s | | | E/E' Lat: 15.77 E/E' Sept: 13.30 E' Lat: 0.06 m/s E' | | | Sept: 0.08 m/s P Vein D: 0.79 m/s P Vein S/D Ratio: | | | 0.82 P Vein S: 0.65 m/s HR: 68.24 BPM PV maxP.94 | | | mmHg PV meanP.37 mmHg PV Vmax: 0.99 m/s PV Vmean: | | | 0.75 m/s PV VTI: 25.31 cm TV A Brock: 0.60 m/s TV Dec | | | [place]: 2.33 m/s2 TV Dec Time: 240.52 ms TV E Brock: 0.56 | | | m/s TV E/A Ratio: 0.92 Home Care Manager: GONZALO Authenticated | | | by: Brynn Crawford MD Report Date/Time: -- [id number] | | + + + + + | Procedure Note | + + | Madhu, Rad Results In - 08/06/2018 4:40 PM PST Patient Name: Jl Martin of : | | 7Accession: [id number] Physician: Brynn Crawford MD | | INDICATIONS ivonne | | rttness of breathCONCLUSIONS 1. Overall left ventricular systolic function is | | normal with, an EF between 60 - 65 %.2. There is moderate concentric left ventricular | | hypertrophy.3. Mild mitral regurgitation is present.FINDINGS--------ECG rhythm: Sinus | | rhythm.Study: This was a technically good study.Left Ventricle: Overall left ventricular | | systolic function is normal with, an EF between 60 - 65 %. Left Ventricle: The left | | ventricle cavity size is normal. Left Ventricle: There is moderate concentric left | | ventricular hypertrophy. Left Ventricle: The diastolic filling pattern indicates | | impaired relaxation consistent with mild dysfunction (Grade I), which is normal for the | | patient's age.Aortic Valve: There is no evidence of aortic regurgitation.Mitral Valve: | | Mild mitral regurgitation is present.Tricuspid Valve: Trace tricuspid regurgitation | | present. Tricuspid Valve: The poor TR signal prevents accurate estimation of pulmonary | | pressures.Pericardium: There is no pericardial effusion.IVC/Hepatic Veins: The inferior | | vena cava is normal in size and collapses > 50 % with sniff, indicating normal central | | venous pressures.Mass: No mass visualizedThrombus: No clot | | visualizedMEASUREMENTS Ao asc: 3.07 cmAo sinus: 3.[address] junct: | | 2.76 cmIVC: 1.62 cmEDV(Teich): 82.97 mlIVSd: 1.41 cmLVIDd: 4.29 cmLVPWd: 1.35 | | cmLVOT Diam: 1.97 cm%FS: 43.64 %EF(Teich): 75.14 %ESV(Teich): 20.62 mlIVSs: | | 1.58 cmLVIDs: 2.42 cmLVPWs: 2.13 cmSV(Teich): 62.34 mlLVEF MOD A2C: 62.55 %SV | | MOD A2C: 55.73 mlLVEF MOD A4C: 66.91 %SV MOD A4C: 52.66 mlEF Biplane: 64.60 | | %LVEDV MOD BP: 86.66 mlLVESV MOD BP: 30.67 mlLVEDV MOD A2C: 89.09 mlLVLd A2C: | | 8.12 cmLVEDV MOD A4C: 78.70 mlLVLd A4C: 7.49 cmLVESV MOD A2C: 33.36 mlLVLs A2C: | | 6.39 cmLVESV MOD A4C: 26.03 mlLVLs A4C: 5.70 cmCO Biplane: 3.85 l/minHR: 68.84 | | BPMR-R: 871.55 msLAESV(A-L): 76.45 mlLAESV Index (A-L): 40.23 ml/m2LAAs A2C: | | 24.44 [id number] A-L A2C: 74.48 mlLALs A2C: 6.81 cmLAAs A4C: 21.96 [id number] A-L A4C: | | 68.67 mlLALs A4C: 5.96 cmRAAd: 13.73 [id number] A-L: 33.61 mlRAEDV MOD: 31.44 | | mlRALd: 4.76 cmEPSS: 2.39 cmAV maxP.50 mmHgAV meanP.57 mmHgAV Vmax: | | 1.76 m/John Vmean: 1.20 m/John VTI: 39.54 cmAVA Vmax: 2.19 cm2AVA (VTI): 2.37 | | eg0JPSW Vmax: 0.00 cm2/m2AVAI (VTI): 0.00 cm2/m2LVOT maxP.42 mmHgLVOT meanPG: | | 3.78 mmHgLVSI Dopp: 49.52 ml/m2LVSV Dopp: 94.10 mlLVOT Vmax: 1.26 m/sLVOT Vmean: | | 0.92 m/sLVOT VTI: 30.73 cmMV A Brock: 1.18 m/sMV DecT: 196.01 msMV E Brock: 1.09 | | m/sMV E/A Ratio: 0.93 E/E' Av.43 E' Av.07 m/sE/E' Lat: 15.77 E/E' Sept: | | 13.30 E' Lat: 0.06 m/sE' Sept: 0.08 m/sP Vein D: 0.79 m/sP Vein S/D Ratio: | | 0.82 P Vein S: 0.65 m/sHR: 68.24 BPMPV maxP.94 mmHgPV meanP.37 mmHgPV | | Vmax: 0.99 m/sPV Vmean: 0.75 m/sPV VTI: 25.31 cmTV A Brock: 0.60 m/sTV Dec [place]: | | 2.33 m/s2TV Dec Time: 240.52 msTV E Brock: 0.56 m/sTV E/A Ratio: 0.92 Home Care Manager: | | GDAuthenticated by: Brynn Crawford [facility] Date/Time: -- | | [id number]:1. Overall left ventricular systolic function is normal | | with, an EF between 60 - 65 %.2. There is moderate concentric left ventricular | | hypertrophy.3. Mild mitral regurgitation is present. | |IVSd: 1.41 cm [...] A Brock: 0.60 m/s | |TV Dec [place]: 2.33 m/s2 | |TV Dec Time: 240.52 ms | |TV E Brock: 0.56 m/s | |TV E/A Ratio: 0.92 | | | |Home Care Manager: GD | |Authenticated by: Brynn Crawford MD | |Report Date/Time: [id number]:25 | | | |IMPRESSION: | |1. Overall left ventricular systolic function is normal with, an EF between 60 - 65 %. | |2. There is moderate concentric left ventricular hypertrophy. | |3. Mild mitral regurgitation is present. | + + + + + + + | Performing | Address | City/State/Zipcode | Phone Number | | Organization | | | | + + + + + | [facility] | [address] | [place] [address] | | + + + + + Urine microscopic only (08/06/2018 3:10 PM) + + + + + | Component | Value | Ref Range | Performed At | + + + + + | WBC | 3-5Comment: | 0 - 5 /hpf | [facility] | | | | | LABORATORY | + + + + + | RBC | 0-2 | 0 - 5 /hpf | [facility] | | | | | LABORATORY | + + + + + | EPITHELIAL | 6-10 | /lpf | [facility] | | | | | LABORATORY | + + + + + | BACTERIA | NONE SEEN | NONE SEEN | [facility] | | | | | LABORATORY | + + + + + | Mucus, UA | 1+ | | [facility] | | | | | LABORATORY | + + + + + | Casts | SEE BELOWComment: 6-10 | /lpf | [facility] | | | HYALINE CASTTesting | | LABORATORY | | | performed at [facility], [address] | | | | | [facility], | | | | | [place] [address] | | | + + + + + + + + + + | Performing | Address | City/State/Zipcode | Phone Number | | Organization | | | | + + + + + | [facility] | [address] [place] [address] | [place] [address] | [phone] | | LABORATORY | [place]. | | | + + + + + Urinalysis (reflex to micro) (08/06/2018 3:10 PM) + + + + + | Component | Value | Ref Range | Performed At | + + + + + | COLOR UA | YELLOW | | [facility] | | | | | LABORATORY | + + + + + | CLARITY | HAZY | | [facility] | | | | | LABORATORY | + + + + + | Specific Sylvia, UA | 1.013 | 1.002 - 1.030 | [facility] | | | | | LABORATORY | + + + + + | LEUKOCYTE ESTERASE | NEGATIVEComment: | NEGATIVE | [facility] | | | | | LABORATORY | + + + + + | NITRITE | NEGATIVE | NEGATIVE | [facility] | | | | | LABORATORY | + + + + + | UROBILINOGEN | NORMAL | <1.1 mg/dL | [facility] | | | | | LABORATORY | + + + + + | PROTEIN | >500 (A) | NEGATIVE mg/dL | [facility] | | | | | LABORATORY | + + + + + | PH,URINE | 5.0 | 5.0 - 8.0 | [facility] | | | | | LABORATORY | + + + + + | BLOOD | SMALL (A) | NEGATIVE | [facility] | | | | | LABORATORY | + + + + + | KETONES | NEGATIVE | NEGATIVE mg/dL | [facility] | | | | | LABORATORY | + + + + + | BILIRUBIN | NEGATIVE | NEGATIVE | [facility] | | | | | LABORATORY | + + + + + | GLUCOSE | 50 (A)Comment: Testing | NEGATIVE mg/dL | [facility] | | | performed at [facility], [address] | | LABORATORY | | | [address], | | | | | [place] [address] | | | + + + + + + + | Specimen | + + | Urine - Urine, Clean | | Catch | + + + + + + + | Performing | Address | City/State/Zipcode | Phone Number | | Organization | | | | + + + + + | [facility] | [address] | [place] [address] | [phone] | | LABORATORY | [address]vd[address] | | | + + + + + Potassium (08/06/2018 12:01 PM)Only the most recent of 3 results within the time period is included. + + + + + | Component | Value | Ref Range | Performed At | + + + + + | POTASSIUM | 4.8Comment: Testing | 3.5 - 4.9 mmol/L | [facility] | | | performed at [facility];[address];[place] | | | | | [address] | | | + + + + + + + | Specimen | + + | Blood | + + + + + + + | Performing | Address | City/State/Zipcode | Phone Number | | Organization | | | | + + + + + | [facility] | [address] | [place] [address] | | + + + + + XR chest 2 view (08/06/2018 11:15 AM) + + + | Impressions | Performed At | + + + | No acute cardiopulmonary abnormality. Signed by: Sachin Adam Sign | [facility] | | Date/Time: 08/06/2018 11:43 AM | RADIOLOGY | + + + + + + | Narrative | Performed At | + + + | CHEST TWO VIEWS CLINICAL INFORMATION: Chest pain. COMPARISON: | [facility] | | None FINDINGS: Heart size and mediastinal contours are normal. No | RADIOLOGY | | pneumothorax, no pleural effusion. No acute osseous abnormality. | | | Lungs are clear. | | + + + + + | Procedure Note | + + | Madhu, Rad Results In - 08/06/2018 11:46 AM PST CHEST TWO VIEWS | | CLINICAL INFORMATION: [...] Date/Time: 08/06/2018 11:43 AM | + + + + + + + | Performing | Address | City/State/Zipcode | Phone Number | | Organization | | | | + + + + + | [facility] | [address] | [place] [address] | | + + + + + Phosphorus (08/06/2018 6:05 AM) + + + + + | Component | Value | Ref Range | Performed At | + + + + + | PHOSPHORUS | 4.7Comment: Testing | 2.3 - 4.8 mg/dL | [facility] | | | performed at [facility], [address] | | LABORATORY | | | [address], | | | | | [place] [address] | | | + + + + + + + | Specimen | + + | Blood | + + + + + + + | Performing | Address | City/State/Zipcode | Phone Number | | Organization | | | | + + + + + | [facility] | [address] | [place] [address] | [phone] | | LABORATORY | [address] | | | + + + + + Glycohemoglobin A1c (08/06/2018 6:05 AM) + + + + + | Component | Value | Ref Range | Performed At | + + + + + | HEMOGLOBIN A1C | 6.4 (H)Comment: The | 4.0 - 6.0 % | [facility] | | | [place] [employer] | | LABORATORY | | | Association considers a | | | | | hemoglobin A1c result of | | | | | <7.0% to be the goal of | | | | | diabetic | | | | | therapy. When results | | | | | are consistently >8.0%, | | | | | the ADA suggests | | | | | reevaluation of the | | | | | treatment | | | | | regimen. The testing | | | | | method used is certified | | | | | traceable to the | | | | | Diabetes Control and | | | | | Complications Trial | | | | | reference method. | | | + + + + + | ESTIMATED AVG | 137Comment: The ADA | <154 mg/dL | [facility] | | GLUCOSE | considers an eAG result | | LABORATORY | | | of LT 154 mg/dL to be | | | | | the goal of diabetic | | | | | therapy. Estimated | | | | | Average Glucose | | | | | calculated from | | | | | hemoglobin A1c by use of | | | | | the ADA recommended | | | | | formula.Testing | | | | | performed at [facility], [address] | | | | | [facility], | | | | | [place] [address] | | | + + + + + + + | Specimen | + + | Blood | + + + + + + + | Performing | Address | City/State/Zipcode | Phone Number | | Organization | | | | + + + + + | [facility] | [address] | [place] [address] | [phone] | | LABORATORY | [address] | | | + + + + + US kidneys and bladder (08/05/2018 3:57 PM) + + + | Impressions | Performed At | + + + | Normal-sized both kidneys without hydronephrosis. Urinary bladder | [facility] | | is incompletely evaluated. Bilateral ureteric jets are not | RADIOLOGY | | visualized. Signed by: Gregorio Alfaro Sign Date/Time: 08/06/2018 | | | 9:09 AM | | + + + + + + | Narrative | Performed At | + + + | ULTRASOUND KIDNEYS AND BLADDER CLINICAL INFORMATION: Acute renal | [facility] | | failure. Right flank pain. COMPARISON: None PROCEDURE: | RADIOLOGY | | Evaluation of the kidneys and urinary bladder. FINDINGS: Right | | | kidney: 10.2 x 4.8 x 5.4 cm. No solid renal mass, hydronephrosis | | | or definitive calculi. Left kidney: 10.3 x 5.3 x 5.3 cm. No solid | | | renal mass, hydronephrosis or definitive calculi. Bladder: The | | | urinary bladder is partially distended, incompletely | | | evaluated. Bilateral ureteric jets are not visualized. The | | | prevoid urinary bladder volume is 25 mL. There is complete | | | emptying of the urinary bladder. | | + + + + + | Procedure Note | + + | Madhu, Darin Results In - 08/06/2018 9:13 AM PST ULTRASOUND KIDNEYS AND BLADDER | | CLINICAL [...] Date/Time: 08/06/2018 9:09 AM | + + + + + + + | Performing | Address | City/State/Zipcode | Phone Number | | Organization | | | | + + + + + | [facility] | [address] | [place] [address] | | + + + + + CBC w/auto diff (reflex to manual) (08/05/2018 11:00 AM) + + + + + | Component | Value | Ref Range | Performed At | + + + + + | WBC | 5.91 | 3.80 - 11.00 K/uL | [facility] | + + + + + | RBC | 3.67 (L) | 3.70 - 5.10 M/uL | [facility] | + + + + + | HGB | 10.2 (L) | 11.3 - 15.5 g/dL | [email or web address] | + + + + + | HCT | 31.1 (L) | 34.0 - 46.0 % | [facility] | + + + + + | MCV | 84.8 | 80.0 - 100.0 fl | [facility] | + + + + + | MCH | 27.8 | 27.0 - 34.0 pg | [facility] | + + + + + | MCHC | 32.8 | 32.0 - 35.5 g/dL | [facility] | + + + + + | RDW SD | 42.0 | 37 - 53 fl | [facility] | + + + + + | PLT | 182 | 150 - 400 K/uL | [facility] | + + + + + | MPV | 10.3 | fl | [facility] | + + + + + | DIFF TYPE | AUTOMATED | | [facility] | + + + + + | NEUTROPHILS | 56.22 | % | [facility] | + + + + + | LYMPHOCYTES | 29.46 | % | [facility] | + + + + + | MONOCYTES | 8.51 | % | [facility] | + + + + + | EOSINOPHILS | 4.82 | % | [facility] | + + + + + | BASOPHILS | 0.99 | % | [facility] | + + + + + | NEUTROPHILS ABS | 3.32 | 1.90 - 7.40 K/uL | [facility] | + + + + + | LYMPHOCYTES ABS | 1.74 | 1.00 - 3.90 K/uL | [facility] | + + + + + | MONOCYTES ABS | 0.50 | 0.00 - 0.80 K/uL | [facility] | + + + + + | EOSINOPHILS ABS | 0.29 | 0.00 - 0.50 K/uL | [facility] | + + + + + | BASOPHILS ABS | 0.06Comment: Testing | 0.00 - 0.10 K/uL | [facility] | | | performed at [facility];[address];[place] | | | | | [address] | | | + + + + + + + | Specimen | + + | Blood | + + + + + + + | Performing | Address | City/State/Zipcode | Phone Number | | Organization | | | | + + + + + | [facility] | [address] | [place] [address] | | + + + + + EK STANDARD 12 LEAD (07/18/2018 11:37 AM) + + + + + | Component | Value | Ref Range | Performed At | + + + + + | Ventricular Rate | 60 | BPM | [facility] | + + + + + | Atrial Rate | 60 | BPM | [facility] | + + + + + | P-R Interval | 172 | ms | [facility] | + + + + + | QRS Duration | 84 | ms | [facility] | + + + + + | Q-T Interval | 432 | ms | [facility] | + + + + + | QTC Calculation | 432 | ms | [facility] | | (Bezet) | | | | + + + + + | Calculated P [place] | 44 | degrees | [facility] | + + + + + | Calculated R [place] | -29 | degrees | [facility] | + + + + + | Calculated T [place] | 70 | degrees | [facility] | + + + + + | Diagnosis | Please refer to | | [facility] | | | Providers office visit | | | | | note for Providers | | | | | Interpretation.Confirmed | | | | | by [facility] [place] Read Only, | | | | | [facility] Ayana ([id number]), | | | | | restaurant expeditor Davi Dhaliwal | | | | | ([id number]) on 07/18/2018 | | | | | 11:46:17 AM | | | + + + + + + + + + + | Performing | Address | City/State/Zipcode | Phone Number | | Organization | | | | + + + + + | [facility] | [address] | [place] [address] | | + + + + + from Last 3 Months Insurance + +--------+ +------+-------+ + | Payer | Benefi | Subscriber | Type | Phone | Address | | | t Plan | ID | | | | | | / | | | | | | | Group | | | | | + +--------+ +------+-------+ + | MEDICAID | [place] | [id number] | | | [address] | | | [address] | | | | [place], [place] | | | [place] | | | | [address] | | | [employer]LLER | | | | | + +--------+ +------+-------+ + | [employer] [employer] | YELLOW | [id number] | | | | | PLANS | [...] +--------+ +--------+ + + | MARIA INES MARTIN | Person | Self [birth year] Home: | [address] | | | christopher/[place]yle | | 1955 | [phone] [place] | | | jeni | | | [phone] | [phone] | + +--------+ +--------+ + +
--- OUTSIDE RECORDS SUMMARY | ~2018-10-01 | XMS | Encounter Summary ---
Demographics + + + | Address | [address] | | | [place] [address] | + + + | Home Phone | | + + + | Preferred Language | Unknown | + + + | Marital Status | Unknown | + + + | Jain Affiliation | Unknown | + + + | Race | Unknown | + + + | Ethnic Group | Unknown | + + + Author + + + | Author | [facility] | + + + | Organization | [facility] | + + + | Address | Unknown | + + + | Phone | Unavailable | + + + Support + + +---------+ + | Name | Relationship | Address | Phone | + + +---------+ + | Sachin Dwyer | ECON | Unknown | | + + +---------+ + Care Team Providers + +------+ + | Care Bookmaker'S Clerk Name | Role | Phone | + +------+ + | [facility] | PCP | | + +------+ + Encounter Details +--------+ + + + + | Date | Type | Department | Care Team | Description | +--------+ + + + + | 08/05/ | Documentati | [facility] | Davi Dhaliwal MA | | | 2019 | on Only | Cardiology [facility] | | | | | | [address] | | | | | | [place] | | | | | | [address] | | | | | | [phone] | | | +--------+ + + + [...] | 11/17/ | Office | Nephrology | James Pearce MD | | | 2019 | Visit | | [address] | | | | | | [address] [place], [place] | | | | | | [phone] | | | | | | | [...] + + + in this encounter Results Basic metabolic panel (08/04/2018 11:47 AM) + + + + + | Component | Value | Ref Range | Performed At | + + + + + | GLUCOSE | 148 (A)Comment: H | 65 - 99 mg/dL | | + + + + + | BUN | 60 (A)Comment: H | 8 - 25 mg/dL | | + + + + + | CREATININE | 2.30 (A)Comment: H | 0.70 - 1.30 mg/dL | | + + + + + | BUN/CREAT | 26.6 | 11.0 - 35.0 | | + + + + + | CALCIUM | 8.3 (A)Comment: L | 8.5 - 10.2 mg/dL | | + + + + + | SODIUM | 137 | 135 - 145 mmol/L | | + + + + + | POTASSIUM | 6.4 (A)Comment: H | 3.5 - 5.3 mmol/L | | + + + + + | CHLORIDE | 109 (A)Comment: H | 97 - 107 mmol/L | | + + + + + | CO2 | 23 | 22 - 29 mmol/L | | + + + + + | ANION GAP AGAP | 21 | 14 - 22 mmol/L | | + + + + + | EGFR | 23Comment: L | >60 mg/dL | | + + + + + + + | Specimen | + + | Blood | + + in this encounter Visit Diagnoses Not on filein this encounter"
--- OUTSIDE RECORDS SUMMARY | ~2018-10-01 | XMS | Clinical Summary ---
Demographics + + + | Address | [address] | | | [place] [address] | + + + | Home Phone | | + + + | Preferred Language | Unknown | + + + | Marital Status | | + + + | Presybeterian Affiliation | [id number] | + + + | Race | Unknown | + + + | Ethnic Group | Unknown | + + + Author + + + | Author | [facility] | | | and [place] | + + + | Organization | [facility] | | [...] + | Sachin Dwyer | ECON | [address] | | | | | [place] | | + + + + + | Sachin Dwyer | ECON | Unknown | | + + + + + Care Team Providers + +------+ + | Care Inspector Assembly Name | Role | Phone | + [...] + + | CHF (congestive heart failure) ([facility]) | | + + + + + | Overview: Echocardiogram done at [facility] on 01/28/18 | | shows overall [...] + +---+ | Type 2 diabetes mellitus ([facility]) | | + +---+ | Asthma | | + +---+ | Heart disease | | + +---+ | Myocardial infarction ([facility]) | | + +---+ | CVA (cerebral vascular accident) ([facility]) | | + +---+ | Hypertension | [...] [address] | | | | | | [address] [place] | | | | | | [place] [address] | | | | | | [phone] | | | | | | | [...] | [employer] | MODA | [id number] | Medica | [phone] | | MEDICAID HMO | HEALTH | | id | [id number] | | | | MDCD | | | | | | | [place]MO [place] | | | | | + +--------+ +--------+ +---------+ | [facility] | [employer]HS | [id number] | Indemn | | | | SERVICE [...] | Self [birth year] | Home: | [address] | | | christopher/Kyle | | [phone] [place] | | | jeni | | | [phone] | [phone] | + +--------+ +--------+ + +
--- OUTSIDE RECORDS SUMMARY | ~2018-10-01 | XMS | Encounter Summary ---
Demographics + + + | Address | [address] | | | [place] [address] | + + + | Home Phone | | + + + | Preferred Language | Unknown | + + + | Marital Status | Unknown | + + + | Zoroastrian Affiliation | Unknown | + + + | Race | Unknown | + + + | Ethnic Group | Unknown | + + + Author + + + | Author | [facility] | + + + | Organization | [facility] | + + + | Address | Unknown | + + + | Phone | Unavailable | + + + Support + + +---------+ + | Name | Relationship | Address | Phone | + + +---------+ + | Sachin Dwyer | ECON | Unknown | | + + +---------+ + Care Team Providers + +------+ + | Care Refinisher Name | Role | Phone | + +------+ + | Manolo Maribel Burt | PCP | | + +------+ + Reason for Visit + + + | Reason | Comments | + + + | Coronary Artery | and CHF transfer care from Dr. Gaitan | | Disease | | + + + Consult and Treat (Routine) +--------+--------+ + + + + | Status | Reason | Specialty | Diagnoses / | Referred By | Referred To | | | | | Procedures | Contact | Contact | +--------+--------+ + + + + | Closed | | Cardiology | Diagnoses | Boriannaet, | Ty, | | | | | CHF | Bernadette Shankar, | MD Brynn | | | | | Procedures | [facility] [address] | | | | | Consult | [address] | | | | | | [place], | [place], [place] | | | | | | [place] [address] | [address] Phone: | | | | | | Phone: | [phone] | | | | | | [phone] | Fax: | | | | | | Fax: | [phone] | | | | | | [phone] | | +--------+--------+ + + + + Encounter Details +--------+ + + + + | Date | Type | Department | Care Team | Description | +--------+ + + + + | 07/18/ | Initial | [facility] | Brynn Crawford MD | CAD in [place] artery | | 2018 | consult | [facility] [place] | [address] | (Primary Dx); | | | | [address] | [place] [address] | Congestive heart | | | | [place], [place] | [phone] | failure, unspecified | | | | [address] | | HF chronicity, | | | | [phone] | | unspecified heart | | | [...] + + + | Blood Pressure | 106/62 | 07/18/2018 11:32 AM PST | + + + + | Pulse | 58 | 07/18/2018 11:29 AM PST | + + + + | Temperature | - | - | + + + + | Respiratory Rate | 18 | 07/18/2018 11:29 AM PST | + + + + | Oxygen Saturation | 100% | 07/18/2018 11:29 AM PST | + + + + | Inhaled Oxygen | - | - | | Concentration | | | + + + + | Weight | 87.5 kg (193 lb) | 07/18/2018 11:29 AM PST | + + + + | Height | 160 cm (5' 3") | 07/18/2018 11:29 AM PST | + + + + | Body Mass Index | 34.19 | 07/18/2018 11:29 AM PST | + + + + in this encounter Progress Notes Brynn Crawford MD - 07/18/2018 11:30 AM PSTFormatting of this note may be different from the original. RE: Maria Ines Martin : 1955 DATE OF SERVICE: 07/18/2018 PROVIDER:Brynn Crawford CHIEF COMPLAINT: Chief Complaint Patient presents with Coronary Artery Disease and CHF transfer care from Dr. Gaitan HISTORY OF PRESENT ILLNESS: Ms. Maria Ines Martin is a 63-year-old lady who presented for evaluation of possible ischemic cardiomyopathy.Mrs. Martin carries the diagnoses of history of amphetamine us e, tobacco dependence, diabetes mellitus and hypertension. She presented initially with ivonne rtness of breath and chest discomfort and was seen by Dr. Vic Gaitan in [facility] for evaluation. An echocardiogram was obtained and suggested the presence of moderate LV dysfunction with ejection fraction around 40%-45%. She was treated aggressively with be ta-josé luis, DANNI inhibitor as well as statin and was considered for coronary angiography; how ever, because of the presence of peripheral vascular disease, she was advised to have eisenberg ry angiography potentially from radial artery approach and therefore she was sent for evalua tion in this office. She tells me that she has been drug-free for almost 6 months now, alth ough she used drugs since she was 18 years old. 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 She about 3 months ago started having some chest discomfort w hich she described as more like cramps in the upper chest. She started having also associat ed shortness of breath with no orthopnea or PND but did have initial lower extremity edema. She denies any presyncope or syncope although she did have occasional palpitation. She has followed her prescribed medical regimen with no difficulty. She tells me her blood pressur e continues to be sometimes elevated but in general has been under reasonable control. She has no plan to go back to tobacco or drug use. Past medical history, SH, FH, and medications [...] cant ST or T-wave abnormalities. Scores: 1. [id number] Score: 4 2. [place] Anginal Score: 2 3. NYHA Score: 2-3 ASSESSMENT: 1. Chest discomfort 2. Congestive heart failure, class II III, stage C, now warm and dry 3. Diabetes mellitus 4. Hypertension 5. Hyperlipidemia 6. History of tobacco dependence 7. History of drug use 8. Peripheral vascular disease Plan: I congratulated Maria [...] contact me. Brynn Crawford M.D., F.A.C.C 07/18/2018 in this encounter Plan of Treatment +--------+---------+ + + + | Date | Type | Specialty | Care Team | Description | +--------+---------+ + + + | 11/17/ | Office | Nephrology | James Pearce MD | | | 2018 | Visit | | [address] | | | | | | [address] [place] | | | | | | [address] | | | | | | | | +--------+---------+ + + + + +--------+ + + | Name | Priori | Associated Diagnoses | Order Schedule | | | ty | | | + +--------+ + + | CL left heart catheterization | Routin | CAD in [place] | Ordered: 07/18/2018 | | with coronary angio | e | artery Congestive | | | | | heart failure, | | | | | unspecified HF | | | | | chronicity, | | | | | unspecified heart | | | | | failure type (HCC) | | | | | Precordial pain | | | | | Ischemic | | | | | cardiomyopathy | | + +--------+ + + as of this encounter Procedures + +--------+ + + + | Procedure Name | Priori | Date/Time | Associated Diagnosis | Comments | | | ty | | | | + +--------+ + + + | EKG STANDARD 12 LEAD | Routin | 07/18/2018 | CAD in [place] | Results for this | | | [...] + + + in this encounter Results EKG STANDARD 12 LEAD (07/18/2018 11:37 AM) + + + + + | Component | Value | Ref Range | Performed At | + + + + + | Ventricular Rate | 60 | BPM | [facility] | + + + + + | Atrial Rate | 60 | BPM | [facility] | + + + + + | P-R Interval | 172 | ms | [facility] | + [...] + + + + | Calculated P [place] | 44 | degrees | [facility] | + + + + + | Calculated R [place] | -29 | degrees | [facility] | + + + + + | Calculated T [place] | 70 | degrees | [facility] | + + + + + | Diagnosis | Please refer to | | [facility] | | | Providers office visit | | | | | note for Providers | | | | | Interpretation.Confirmed | | | | | by [facility] Read Only, | | | | | [facility] [place] ([id number]), | | | | | online editor Davi Dhaliwal | | | | | ([id number]) on 07/18/2018 | | | | | 11:46:17 AM | | | + + + + + + + + + + | Performing | Address | City/State/Zipcode | Phone Number | | Organization | | | | + + + + + | [facility] | [address] | [place] [address] | | + + + + + in this encounter Visit Diagnoses + + | Diagnosis | + + | CAD in [place] artery - Primary | + + | Coronary atherosclerosis of [place] coronary artery | + + | Congestive heart failure, unspecified HF chronicity, unspecified heart failure type | | (HCC) | + + | Precordial pain | + + | Ischemic cardiomyopathy | + + | Other specified forms of chronic ischemic heart disease | + +
--- OUTSIDE RECORDS SUMMARY | ~2018-10-01 | XMS | Encounter Summary ---
Demographics + + + | Address | [address] | | | [place] [address] | + + + | Home Phone | | + + + | Preferred Language | Unknown | + + + | Marital Status | Unknown | + + + | Protestant Affiliation | Unknown | + + + | Race | Unknown | + + + | Ethnic Group | Unknown | + + + Author + + + | Author | [facility] | + + + | Organization | [facility] | + + + | Address | Unknown | + + + | Phone | Unavailable | + + + Support + + +---------+ + | Name | Relationship | Address | Phone | + + +---------+ + | Sachin Dwyer | ECON | Unknown | | + + +---------+ + Care Team Providers + +------+ + | Care Erp Specialist Name | Role | Phone | + +------+ + | aMnolo Maribel Burt | PCP | | + +------+ + Reason for Visit + + + | Reason | Comments | + + + | Follow-up | cath-08/08/18 | + + + | Cardiomyopathy | | + + + Consult and Treat (Routine) +--------+--------+ + + + + | Status | Reason | Specialty | Diagnoses / | Referred By | Referred To | | | | | Procedures | Contact | Contact | +--------+--------+ + + + + | Closed | | INTERNAL | Diagnoses | Ty, | Ty, | | | | MEDICINE - | cath f/u | MD Brynn | MD Brynn | | | | CARDIOVASCULA | Procedures | [address] | | | | R DISEASE / | CRD FOLLOW | [address] | | | | | Cardiology | UP | [place], | [place], [place] | | | | | | [place] [address] | [address] Phone: | | | | | | Phone: | [phone] | | | | | | [phone] | Fax: | | | | | | Fax: | [phone] | | | | | | [phone] | | +--------+--------+ + + + + Encounter Details +--------+---------+ + + + | Date | Type | Department | Care Team | Description | +--------+---------+ + + + | 08/21/ | Office | [facility] | Brynn Crawford MD | Non-ischemic | | 2019 | Visit | [facility] [place] | [address] | cardiomyopathy (HCC) | | | | [address] | [place] [address] | (Primary Dx); | | | | [facility] [place] | [phone] | Essential | | | | [address] | | hypertension | | | | [phone] | | | +--------+---------+ + + + Social History [...] encounter Progress Notes Brynn Crawford MD - 08/21/2018 11:45 AM PSTFormatting of this note may be different from the original. RE: Maria Ines Martin : 1955 DATE OF SERVICE: 08/21/2018 PROVIDER:Brynn Crawford CHIEF COMPLAINT: Chief Complaint Patient presents with Follow-up cath-08/08/18 Cardiomyopathy HISTORY OF PRESENT ILLNESS: Maria Ines comes in for followup after her recent hospitalization. When she came in for her josé ctive cardiac catheterization, she was found to by hyperkalemic and the heart cath was postp oned. She was admitted and treated and eventually underwent coronary angiography, which ivonne wed no significant coronary disease. Her echocardiogram actually showed normal left ventric ular systolic function. Because of her renal insufficiency, she was evaluated by renal serv ice and was treated and followed up. She saw her primary care physician yesterday and she h ad another blood test. Past medical history, SH, FH, and medications were reviewed in the chart. Medications: Current Outpatient Prescriptions: acetaminophen (TYLENOL) 325 MG tablet, Take 325 mg by mouth every 6 (six) hours as nee ded for Pain., Disp: , Rfl: ascorbic acid (VITAMIN C) 500 MG tablet, Take 1 tablet by mouth daily., Disp: 30 table t, Rfl: 11 aspirin 81 MG EC tablet, Take 81 mg by mouth daily., Disp: , Rfl: atorvastatin (LIPITOR) 10 MG tablet, Take 10 mg by mouth nightly., Disp: , Rfl: carvedilol (COREG) 6.25 MG tablet, Take 6.25 mg by mouth 2 (two) times daily with meal s., Disp: , Rfl: cholecalciferol 2000 units TABS, Take 2,000 Units by mouth daily., Disp: 90 tablet, Rf l: 2 doxycycline (ADOXA) 50 MG tablet, Take 50 mg by mouth 2 (two) times daily., Disp: , Rf l: ferrous sulfate, 65 FE, 325 (65 FE) MG tablet, Take 1 tablet by mouth daily with break fast., Disp: 30 tablet, Rfl: 2 fexofenadine (TIAN) 180 MG tablet, Take 180 mg by mouth as needed., Disp: , Rfl: hydrALAZINE (APRESOLINE) 25 MG tablet, Take 3 tablets by mouth 3 (three) times daily., Disp: 270 tablet, Rfl: 1 insulin glargine (LANTUS) 100 UNIT/ML injection, Inject 25 Units into the skin nightly ., Disp: , Rfl: melatonin 1 MG tablet, Take 1 mg by mouth nightly as needed., Disp: , Rfl: traMADol (ULTRAM) 50 MG tablet, Take 1 tablet by mouth every 6 (six) hours as needed., Disp: 30 tablet, Rfl: 0 ALLERGIES: Allergies Allergen Reactions Quinine Hallucinations REVIEW [...] or anxiety. PHYSICAL EXAM Vital Signs: BP 128/78 (BP Location: Left upper arm, Patient Position: Sitting) | Pulse 66 | Resp 18 | Ht 1.6 m (5' 3") | Wt 88 kg (194 lb) | SpO2 100% | BMI 34.37 kg/m GENERAL APPEARANCE: Alert, oriented, cooperative, no [...] Psych: Normal affect and mood. Lab Review Lab Results Component Value Date NA 139 08/11/2018 K 5.0 (H) 08/11/2018 CL 108 08/11/2018 CO2 23 08/11/2018 BUN 57 (H) 08/11/2018 CREATININE 2.2 (H) 08/11/2018 No results found for: CKTOTAL, CKMB, CKMBINDEX, TROPONINI Lab Results Component Value Date WBC 5.46 08/10/2018 HGB 8.9 (L) 08/10/2018 HCT 26.9 (L) 08/10/2018 MCV 84.8 08/10/2018 PLT 148 (L) 08/10/2018 Lab Results Component Value Date GLUF 148 (H) 08/11/2018 HGBA1C 6.4 (H) 08/06/2018 No results found for: INR ECG: EKG from July 18, 2018 which showed normal sinus rhythm with no significant ST or T-wav e abnormalities. Cardiac catheterization 08/08/2018 CORONARY ANGIOGRAPHY 1. The coronary system was right dominant. 2. The left main bifurcated into the LAD and left circumflex. Left main was free of disease. 3. Left anterior descending artery and the diagonal branches were free of disease. 4. Left circumflex coronary artery and the marginal branches were free of disease. 5. Right coronary artery was large, dominant vessel and free of disease. Echocardiogram 08/06/2018 1. Overall left ventricular systolic function is normal with, an EF between 60 - 65 %. 2. There is moderate concentric left ventricular hypertrophy. 3. Mild mitral regurgitation is present. Scores: 1. [id number] Score: 4 2. [place] Anginal Score: 2 3. NYHA Score: 2-3 ASSESSMENT: 1. History of cardiomyopathy with improved ejection fraction 2. History of congestive heart failure now euvolemic 3. Hyperkalemia, resolved 4. Renal insufficiency 5. Diabetes mellitus 6. Hypertension 7. Hyperlipidemia 8. History of tobacco dependence 9. History of drug use 10. Peripheral vascular disease Plan: Maria Ines did well after her cardiac catheterization. Luckily her ejection fraction has improv ed significantly and her cardiomyopathy must have been related to hypertensive cardiac disea se. She has no significant coronary artery disease. I did recommend that she continues her aggressive blood pressure documentations and treatments. She was followed by Dr. Gaitan at [facility] in the Nephrology Service. It should be noted that her renal ultras ound did not show any significant renal artery disease, although the resistive index was josé vated consistent with parenchymal disease, likely hypertensive. She should be very careful with the potassium containing food. I will be happy to see her in the future if needed. *This report has been prepared using a voice recognition system. The report was reviewed fo r accuracy, however, sound-alike word errors, addition and/or deletions may occur. If there is any question about this report please contact me. Brynn Crawford M.D., F.A.C.C 08/21/2018 in this encounter Plan of Treatment +--------+---------+ + + + | Date | Type | Specialty | Care Team | Description | +--------+---------+ + + + | 11/17/ | Office | Nephrology | James Pearce MD | | | 2018 | Visit | | [address] | | | | | | [address] [place], [place] | | | | | | [address] | | | | | | | | +--------+---------+ + + + as of this encounter Visit Diagnoses + + | Diagnosis | + + | Non-ischemic cardiomyopathy (HCC) - Primary | + + | Other primary cardiomyopathies | + + | Essential hypertension | + + | Unspecified essential hypertension | + +
--- OUTSIDE RECORDS SUMMARY | ~2018-10-01 | XMS | Clinical Summary ---
Demographics + + + | Address | [address] | | | [place] [address] | + + + | Home Phone | | + + + | Preferred Language | Unknown | + + + | Marital Status | Unknown | + + + | Pentecostal Affiliation | Unknown | + + + | Race | Unknown | + + + | Ethnic Group | Unknown | + + + Author + + + | Author | [facility] | + + + | Organization | [facility] [employer] [facility] | + + + | Address | Unknown | + + + | Phone | Unavailable | + + + Support + + +---------+ + | Name | Relationship | Address | Phone | + + +---------+ + | Sachin Dwyer | ECON | Unknown | | + + +---------+ + Care Team Providers + +------+ + | Care Manager Investment Banking Name | Role | Phone [...] | Brynn Crawford MD | 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 | | Kimberly Owens DO | artery; Congestive | | | | | Gustavo Castorena MD | heart failure, | | 08/11/ | | | 1, [facility] | unspecified HF | | 2018 | [...] | | | JimMRN: | | | [id number]/ | | | | | | y.o.Admit [...] | | up:[facility] | | | wk [place] | | | ClinicPO | | | [address] | [address] | | | n [place] | | | [phone] | | | [phone] | | | H [place], | | | MD[address] | | | [address] | | | [place] | | | [address] | | | [place] | | | [phone] | | | [phone] | | | [...] | Brynn Crawford MD | 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 | | 2018 | consult | [...] [place] | | | | | | [id number] | | | | | | | [...] | Routin | 07/18/2018 | CAD in ambler | Results for this | | | [...] Testing | 65 - 99 mg/dL | [facility] | | | performed at [facility];[address];[place], [place] | | | | | [address] | | | + + + + + + + + + + | Performing | Address | City/State/Zipcode | Phone Number | | Organization | | | | + + + + + | [facility] | [address] | [place] [address] | | + + + + + [...] the | | | | | [facility]D [facility] traceable | | | | | equation.Testing | | | | | performed at [facility], [address] | | | | | [facility], | | | | | [place] [address] | | | + + + + + + + | Specimen | + + | Blood | + + + + + + + | Performing | Address | City/State/Zipcode | Phone Number | | Organization | | | | + + + + + | [facility] | [address] | [place] [address] | [phone] | | LABORATORY | Blvd. | | [...] | + + + + + | [facility] | [address] | [place] [address] | | + + + + + [...] | [facility] | | | performed at [facility], [address] | | LABORATORY | | | [facility], | | | | | [place] [address] | | | + + + + + + + + + + | Performing | Address | City/State/Zipcode | Phone Number | | Organization | | | | + + + + + | [facility] | [address] | [place] [address] | [phone] | | LABORATORY | Blvd. | | [...] | [facility] | | | performed at [facility], [address] | | LABORATORY | | | [facility], | | | | | [place] [address] | | | + + + + + + + + + + | Performing | Address | City/State/Zipcode | Phone Number | | Organization | | | | + + + + + | [facility] | [address] | [place] [address] | [phone] | | LABORATORY | Blvd. | | | + + + + + CL left heart cath with coronary angio (08/08/2018 6:10 PM) + + + | Narrative | Performed At | + + + | [facility] | | | RADIOLOGY | | BRIEF [...] radial artery and a | | | 6-Nauruan sheath was placed. The JL-3.5 catheter was [...] right radial artery and a | | 6-Nauruan sheath was placed. The JL-3.5 catheter was [...] | + + + + + | [facility] | [address] | [place] [address] | | + + + + + FIORELLA/ NERY TALLEY LT, CH RAT (08/08/2018 12:12 PM) + + + + + | Component | Value | Ref Range | Performed At | + + + + + | [facility] | 96.5 (H)Comment: | mg/L | [facility] | | | Reference range: 3.3 to | | | | | 19.4 | | | + + + + + | L[facility] | 64.3 (H)Comment: | mg/L | [facility] | | | Reference range: 5.7 to | | | | | 26.3 | | | + + + + + | [facility] | 1.50Comment: Reference | | [facility] | | RATIO | range: 0.26 to | | | | | 1.65Testing performed at | | | | | [facility], [address] | | | | | [place] | | | | | [place] [address] | | | + + + + + + + + + + | Performing | Address | City/State/Zipcode | Phone Number | | Organization | | | | + + + + + | [facility] | [address] | [place] [address] | | + + + + + [...] | [facility] | | | performed at [facility], [address] | | LABORATORY | | | [place], | | | | | [place] [address] | | | + + + + + + + + + + | Performing | Address | City/State/Zipcode | Phone Number | | Organization | | | | + + + + + | [facility] | [address] | [place] [address] | [phone] | | LABORATORY | Blvd. | | [...] performed at | | | | | [facility], [address] [place] [address] | | | | | [place] | | | | | [address] | | | + + + + + + + + + + | Performing | Address | City/State/Zipcode | Phone Number | | Organization | | | | + + + + + | [facility] | [address] | [place] [address] | [phone] | | LABORATORY | Blvd. | | [...] Testing | 15 - 50 % | [facility] | | | performed at [facility], [address] | | LABORATORY | | | [facility], | | | | | [place] [address] | | | + + + + + + + | Specimen | + + | Blood | + + + + + + + | Performing | Address | City/State/Zipcode | Phone Number | | Organization | | | | + + + + + | [facility] | [address] [place] [address] | [place] [address] | [phone] | | LABORATORY | Blvd. | | [...] performed | | | | | at [facility], [address] | | | | | [place], | | | | | [place] [address] | | | + + + + + + + | Specimen | + + | Blood | + + + + + + + | Performing | Address | City/State/Zipcode | Phone Number | | Organization | | | | + + + + + | [facility] | [address] | [place] [address] | [phone] | | LABORATORY | Blvd. | | [...] performed | | | | | at [facility], [address] | | | | | [place], | | | | | [place] [address] | | | + + + + + + + | Specimen | + + | Blood | + + + + + + + | Performing | Address | City/State/Zipcode | Phone Number | | Organization | | | | + + + + + | [facility] | [address] | [place] [address] | [phone] | | LABORATORY | Blvd. | | | + + + + + CONCETTA and ANCA REFLEXIVE (08/08/2018 12:12 PM) + + + + + | Component | Value | Ref Range | Performed At | + + + + + | CONCETTA | NegativeComment: | | [facility] | | | Reference range: | | | | | NegativeTesting | | | | | performed at [facility], [address] | | | | | [place] | | | | | [place] [address] | | | + + + + + | CYTOPLASMIC (C ANCA) | <1:20Comment: Reference | titer | [facility] | | | range: Neg:<1:20 | | | + + + + + | PERINUCLEAR (P ANCA) | <1:20Comment: Reference | titer | [facility] | | | range: Neg:<1:20 The [...] with | | | | | both IL-3 and MPO-ANCA | | | | | [...] ANCA | 1:640 (H)Comment: | titer | [facility] | | | Reference range: | [...] AB | <9.0Comment: Reference | U/mL | [facility] | | | range: 0.0 to 9.0 | | | + + + + + | ANTI PROTEINASE 3 | <3.5Comment: Reference | U/mL | [facility] | | | range: 0.0 to 3.5Testing | | | | | performed by [facility], | | | | | [address], | | | | | [facility] [address] | | | + + + + + + + | Specimen | + + | Blood | + + + + + + + | Performing | Address | City/State/Zipcode | Phone Number | | Organization | | | | + + + + + | [facility] | [address] | [place] [address] | | + + + + + Immunofixation,Serum (08/08/2018 12:12 PM) + + + + + | Component | Value | Ref Range | Performed At | + + + + + | Immunofixation | (See Below)Comment: No | | [facility] | | Result, Serum | monoclonality | | | | | detected.Testing | | | | | performed at [facility], [address] | | | | | [facility] | | | | | [place] [address] | | | + + + + + | IgG | 1,100Comment: Reference | mg/dL | [facility] | | | range: 700 to 1600 | | | + + + + + | IGA | 163Comment: Reference | mg/dL | [facility] | | | range: 87 to 352 | | | + + + + + | IGM | 69Comment: Reference | mg/dL | [facility] | | | range: 26 to 217Testing | | | | | performed at [facility], | | | | | [address], [address], | | | | | [place] [address] | | | + + + + + + + | Specimen | + + | Blood | + + + + + + + | Performing | Address | City/State/Zipcode | Phone Number | | Organization | | | | + + + + + | [facility] | [address] | [facility] [address] | | + + + + + Uric acid (08/08/2018 12:12 PM) + + + + + | Component | Value | Ref Range | Performed At | + + + + + | URIC ACID | 6.6Comment: Testing | 2.2 - 7.1 mg/dL | [facility] | | | performed at [facility], [address] | | LABORATORY | | | [place], | | | | | [place] [address] | | | + + + + + + + | Specimen | + + | Blood | + + + + + + + | Performing | Address | City/State/Zipcode | Phone Number | | Organization | | | | + + + + + | [facility] | [address] | [place] [address] | [phone] | | LABORATORY | Blvd. | | | + + + + + Lactate dehydrogenase (08/08/2018 12:12 PM) + + + + + | Component | Value | Ref Range | Performed At | + + + + + | LDH | 255 (H)Comment: Testing | 115 - 225 U/L | [facility] | | | performed at [facility], [address] | | LABORATORY | | | [place], | | | | | [place] [address] | | | + + + + + + + | Specimen | + + | Blood | + + + + + + + | Performing | Address | City/State/Zipcode | Phone Number | | Organization | | | | + + + + + | [facility] | [address] | [place] [address] | [phone] | | LABORATORY | Blvd. | | | + + + + + Ferritin (08/08/2018 12:12 PM) + + + + + | Component | Value | Ref Range | Performed At | + + + + + | FERRITIN | 66Comment: Testing | 6 - 170 ng/mL | [facility] | | | performed at [facility], [address] | | LABORATORY | | | [facility], | | | | | [place] [address] | | | + + + + + + + | Specimen | + + | Blood | + + + + + + + | Performing | Address | City/State/Zipcode | Phone Number | | Organization | | | | + + + + + | [facility] | [address] | [place] [address] | [phone] | | LABORATORY | Blvd. | | [...] (H) | 8 - 25 mg/dL | [email or web address] | + + + + + [...] (L)Comment: GFR <60: | >60 mL/min/1.73m2 | [facility] | | | CHRONIC KIDNEY DISEASE, [...] the | | | | | MDRD [facility] traceable | | | | | equation.Testing | | | | | performed at [facility];[address] | | | | [address] [facility];[place], [place] | | | | | [address] | | | + + + + + + + | Specimen | + + | Blood | + + + + + + + | Performing | Address | City/State/Zipcode | Phone Number | | Organization | | | | + + + + + | [facility] | [address] | [place] [address] | | + + + + + [...] [address], | | | | | [place] [address] | | | + + + + + + + | Specimen | + + | Urine - Urine, | | Unspecified Source | + + + + + + + | Performing | Address | City/State/Zipcode | Phone Number | | Organization | | | | + + + + + | [facility] | [address] | [place] [address] | [phone] | | LABORATORY | Blvd. | | [...] | | | | | performed at [facility], [address] | | | | | [facility], | | | | | [place] [address] | | | + + + + + + + | Specimen | + + | Urine - Urine, | | Unspecified Source | + + + + + + + | Performing | Address | City/State/Zipcode | Phone Number | | Organization | | | | + + + + + | [facility] | [address] | [place] [address] | [phone] | | LABORATORY | Blvd. | | [...] | LABORATORY | | | performed at [facility], [address] | | | | [address], | | | | | [place] [address] | | | + + + + + + + + + + | Performing | Address | City/State/Zipcode | Phone Number | | Organization | | | | + + + + + | [facility] | [address] [place] [address] | [place] [address] | [phone] | | LABORATORY | Blvd. | | [...] | LABORATORY | | | performed at [facility], [address] | | | | | [address] [facility], | | | | | [place] [address] | | | + + + + + + + + + + | Performing | Address | City/State/Zipcode | Phone Number | | Organization | | | | + + + + + | [facility] | [address] | [place] [address] | [phone] | | LABORATORY | Blvd. | | [...] Ines Martin Date of : 1955 | [facility] | | Performing Physician: Brynn Crawford [...] 0.60 m/s TV Dec | | | Prentiss: 2.33 m/s2 TV Dec Time: 240.52 ms TV E Brock: 0.56 | | | m/s TV E/A Ratio: 0.92 Patient Financial Advocate: GONZALO Authenticated | | | by: Brynn Crawford MD Report Date/Time: -- [id number] | | + + + + + | Procedure Note | + + | Madhu, Rad Results In - 08/06/2018 4:40 PM PST Patient Name: Jl Martin of : | | 7Accession: [id number] Physician: Brynn Crawford MD | | INDICATIONS [...] (A-L): 40.23 ml/m2LAAs A2C: | | 24.44 [id number] A-L A2C: 74.48 mlLALs A2C: 6.81 cmLAAs A4C: 21.96 [id number] A-L A4C: | | 68.67 mlLALs A4C: 5.96 cmRAAd: 13.73 [id number] A-L: 33.61 mlRAEDV MOD: 31.44 | | mlRALd: 4.76 cmEPSS: 2.39 cmAV maxP.50 mmHgAV meanP.57 mmHgAV Vmax: | | 1.76 m/John Vmean: 1.20 m/John VTI: 39.54 cmAVA Vmax: 2.19 cm2AVA (VTI): 2.37 | | rt2GQQV Vmax: 0.00 cm2/m2AVAI (VTI): 0.00 cm2/m2LVOT maxP.42 [...] 25.31 cmTV A Brock: 0.60 m/sTV Dec Prentiss: | | 2.33 m/s2TV Dec Time: 240.52 msTV E Brock: 0.56 m/sTV E/A Ratio: 0.92 Patient Financial Advocate: | | GDAuthenticated by: Brynn Crawford [facility] ([place], [place]) Date/Time: -- | | [id number]:58:25IMPRESSION:1. Overall left ventricular systolic function is normal [...] A Brock: 0.60 m/s | |TV Dec Prentiss: 2.33 m/s2 | |TV Dec Time: 240.52 ms | |TV E Brock: 0.56 m/s | |TV E/A Ratio: 0.92 | | | |Patient Financial Advocate: GD | |Authenticated by: Brynn Crawford MD | |Report Date/Time: [id number]:25 | | | |IMPRESSION: | |1. Overall [...] [facility] | [address] | [place] [address] | | + + + + + [...] | LABORATORY | | | performed at [facility], [address] | | | | | [facility], | | | | | [place] [address] | | | + + + + + + + + + + | Performing | Address | City/State/Zipcode | Phone Number | | Organization | | | | + + + + + | [facility] | [address] [place] [address] | [place] [address] | [phone] | | LABORATORY | [place] | | [...] + + + + + | Specific [place], UA | 1.013 | 1.002 - 1.030 [...] | [facility] | | | performed at [facility], [address] | | LABORATORY | | | [address], | | | | | [place] [address] | | | + + + + + + + | Specimen | + + | Urine - Urine, Clean | | Catch | + + + + + + + | Performing | Address | City/State/Zipcode | Phone Number | | Organization | | | | + + + + + | [facility] | [address] | [place] [address] | [phone] | | LABORATORY | Blvd. | | | + + + + + Potassium (08/06/2018 12:01 PM)Only the most recent of 3 results within the time period is included. + + + + + | Component | Value | Ref Range | Performed At | + + + + + | POTASSIUM | 4.8Comment: Testing | 3.5 - 4.9 mmol/L | [facility] | | | performed at [facility];[address];[place] | | | | | [address] | | | + + + + + + + | Specimen | + + | Blood | + + + + + + + | Performing | Address | City/State/Zipcode | Phone Number | | Organization | | | | + + + + + | [facility] | [address] | [facility] [place] [address] | | + + + + + [...] acute cardiopulmonary abnormality. | | Signed by: Sachni Adam | | Sign Date/Time: 08/06/2018 11:43 AM | + + + + + + + | Performing | Address | City/State/Zipcode | Phone Number | | Organization | | | | + + + + + | [facility] | [address] | [place] [address] | | + + + + + [...] | | | | | [place] [address] | | | + + + + + + + | Specimen | + + | Blood | + + + + + + + | Performing | Address | City/State/Zipcode | Phone Number | | Organization | | | | + + + + + | [facility] | [address] | [place] [address] | [phone] | | LABORATORY | Blvd. | | | + + + + + Glycohemoglobin A1c (08/06/2018 6:05 AM) + + + + + | Component | Value | Ref Range | Performed At | + + + + + | HEMOGLOBIN A1C | 6.4 (H)Comment: The | 4.0 - 6.0 % | [facility] | | | Syrian Diabetes | | LABORATORY | | | [...] 137Comment: The ADA | <154 mg/dL | [facility] | | GLUCOSE | considers an [...] | | | | | performed at [facility], [address] | | | | | [facility], | | | | | [place] [address] | | | + + + + + + + | Specimen | + + | Blood | + + + + + + + | Performing | Address | City/State/Zipcode | Phone Number | | Organization | | | | + + + + + | [facility] | [address] | [place] [address] | [phone] | | LABORATORY | Blvd. | | [...] | + + + + + | [facility] | [address] | [place] [address] | | + + + + + CBC w/auto diff (reflex to manual) (08/05/2018 11:00 AM) + + + + + | Component | Value | Ref Range | Performed At | + + + + + | WBC | 5.91 | 3.80 - 11.00 K/uL | [email or web address] | + + + + + | RBC | 3.67 (L) | 3.70 - 5.10 M/uL | [email or web address] | + + + + + | HGB | 10.2 (L) | 11.3 - 15.5 g/dL | [facility] | + + + + + | HCT | 31.1 (L) | 34.0 - 46.0 % | [email or web address] | + + + + + [...] Testing | 0.00 - 0.10 K/uL | [facility] | | | performed at [facility];[address];[place] | | | | | [address] | | | + + + + + + + | Specimen | + + | Blood | + + + + + + + | Performing | Address | City/State/Zipcode | Phone Number | | Organization | | | | + + + + + | [facility] | [address] | [place] [address] | | + + + + + EK STANDARD 12 LEAD (07/18/2018 11:37 AM) + + + + + | Component | Value | Ref Range | Performed At | + + + + + | Ventricular Rate | 60 | BPM | [facility] | + + + + + | Atrial Rate | 60 | BPM | [facility] | + + + + + | P-R Interval | 172 | ms | [facility] | + + + + + [...] + + + + | Calculated P Leon | 44 | degrees | [facility] | + + + + + | Calculated R Leon | -29 | degrees | [facility] | + + + + + | Calculated T Leon | 70 | degrees | [facility] | + + + + + | Diagnosis | Please refer to | | [facility] | | | Providers office visit | | | | | note for Providers | | | | | Interpretation.Confirmed | | | | | by [facility] [place] Read Only, | | | | | [facility] Ayana ([id number]), | | | | | multimedia editor Davi Dhaliwal | | | | | ([id number]) on 07/18/2018 | | | | | 11:46:17 AM | | | + + + + + + + + + + | Performing | Address | City/State/Zipcode | Phone Number | | Organization | | | | + + + + + | [facility] | [address] | [place] [address] | | + + + + + [...] +------+-------+ + | MEDICAID | EASTER | [id number] | | | [address] | | | [address] | | | | [place], [place] | | | [place] | | | | [address] | | | TILE INSTALLER | | | | | + +--------+ +------+-------+ + | [facility] | YELLOW | [id number] | | | | | PLANS | [...] | Self [birth year] Home: | [address] | | | christopher/[place]yle | | 1955 | [phone] | [place] | | | jeni | | | [phone] | [phone] | + +--------+ +--------+ + +
--- OUTSIDE RECORDS SUMMARY | ~2018-10-01 | XMS | Encounter Summary ---
Demographics + + + | Address | [address] | | | [place] [address] | + + + | Home Phone | | + + + | Preferred Language | Unknown | + + + | Marital Status | Unknown | + + + | Sikhism Affiliation | Unknown | + + + | Race | Unknown | + + + | Ethnic Group | Unknown | + + + Author + + + | Author | [facility] | + + + | Organization | [facility] | + + + | Address | Unknown | + + + | Phone | Unavailable | + + + Support + + +---------+ + | Name | Relationship | Address | Phone | + + +---------+ + | Sachin Dwyer | ECON | Unknown | | + + +---------+ + Care Team Providers + +------+ + | Care Loading Unit Operator Seating Name | Role | Phone | + [...] | | | | | [place] [address] | | | | | | [phone] | | | +--------+ + + + [...] | | | | | | [address] [place], [place] | | | | | | [address] | | | | | | | | +--------+---------+ + + + as of this encounter Visit Diagnoses Not on filein this encounter"
--- OUTSIDE RECORDS SUMMARY | ~2018-10-01 | XMS | Encounter Summary ---
Demographics + + + | Address | [address] | | | [place] [address] | + + + | Home Phone | | + + + | Preferred Language | Unknown | + + + | Marital Status | Unknown | + + + | Scientologist Affiliation | Unknown | + + + | Race | Unknown | + + + | Ethnic Group | Unknown | + + + Author + + + | Author | [facility] | + + + | Organization | [facility] | + + + | Address | Unknown | + + + | Phone | Unavailable | + + + Support + + +---------+ + | Name | Relationship | Address | Phone | + + +---------+ + | Sachin Dwyer | ECON | Unknown | | + + +---------+ + Care Team Providers + +------+ + | Care Senior Qa Analyst Name | Role | Phone | + +------+ + | [facility] | PCP | | + +------+ + Encounter Details +--------+ + + + + | Date | Type | Department | Care Team | Description | +--------+ + + + + | 07/07/ | Documentati | [facility] | Davi Dhaliwal MA | | | 2018 | on Only | Cardiology [facility] | | | | | | [address] | | | | | | [place] | | | | | | [address] | | | | | | [phone] | | | +--------+ + + + [...] [place] | | | | | | [id number] | | | | | | | | +--------+---------+ + + + as of this encounter Visit Diagnoses Not on filein this encounter"
--- OUTSIDE RECORDS SUMMARY | ~2018-10-01 | XMS | Encounter Summary ---
Demographics + + + | Address | [address] | | | [place] [address] | + + + | Home Phone | | + + + | Preferred Language | Unknown | + + + | Marital Status | | + + + | Baptism Affiliation | 1041 | + + + | Race | Unknown | + + + | Ethnic Group | Unknown | + + + Author + + + | Author | [facility] | | | and [place] | + + + | Organization | [facility] | | | [...] + | Sachin Dwyer | ECON | [address] | | | | | [place] | | + + + + + | Sachin Dwyer | ELVIRA | Unknown | | + + + + + Care Team Providers + +------+ + | Care Multimedia Producer Name | Role | Phone | + [...] | | | | | | [place] [address] | | | | | | [phone] | | | +--------+ + + + [...] | | | | | [place] [address] | | | | | | [phone] | | | | | | | | +--------+---------+ + + + as of this encounter Visit Diagnoses Not on filein this encounter"
--- OUTSIDE RECORDS SUMMARY | ~2018-10-01 | XMS | Encounter Summary ---
Demographics + + + | Address | [address] | | | [place] [address] | + + + | Home Phone | | + + + | Preferred Language | Unknown | + + + | Marital Status | Unknown | + + + | Scientologist Affiliation | Unknown | + + + | Race | Unknown | + + + | Ethnic Group | Unknown | + + + Author + + + | Author | [employer] | + + + | Organization | [facility] | + + + | Address | Unknown | + + + | Phone | Unavailable | + + + Support + + +---------+ + | Name | Relationship | Address | Phone | + + +---------+ + | Sachin Dwyer | ECON | Unknown | | + + +---------+ + Care Team Providers + +------+ + | Care Bun Panner Name | Role | Phone | + +------+ + | ManoloMaribel | PCP | | + +------+ + Encounter Details +--------+ + + + + | Date | Type | Department | Care Team | Description | +--------+ + + + + | 08/11/ | Telephone | [facility] | Luis, | | | 2018 | | [address] | [place]O Suarez | | | | | [facility] [address] | | | | | | [place] [address] | | | | | | [phone] | | | +--------+ + + + [...] | | | | | | [address] [place], [place] | | | | | | [address] | | | | | | | | +--------+---------+ + + + + +--------+ + + | Name | Priori | Associated Diagnoses | Order Schedule | | | ty | | | + +--------+ + + | CBC W/Auto Diff (Reflex to | Routin | Essential | Expected: | | Manual) | e | hypertension Type 2 | 08/13/2018, Expires: | | | | diabetes mellitus | 08/11/2019 | | | | with complication, [...] (HCC) | | + +--------+ + + | Renal function panel | Routin | Essential | Expected: | | | e | hypertension Type 2 | 08/13/2018, Expires: | | | | diabetes mellitus | 08/11/2019 | | | | with complication, [...] (HCC) | | + +--------+ + + | Ferritin | Routin | Essential | Expected: | | | e | hypertension Type 2 | 08/13/2018, Expires: | | | | diabetes mellitus | 08/11/2019 | | | | with complication, [...] (HCC) | | + +--------+ + + | Iron Panel W/UIBC | Routin | Essential | Expected: | | | e | hypertension Type 2 | 08/13/2018, Expires: | | | | diabetes mellitus | 08/11/2019 | | | | with complication, [...] (HCC) | | + +--------+ + + as of this encounter Visit Diagnoses + + | Diagnosis | + + | Essential hypertension - Primary | + + | Unspecified essential hypertension | + + | Type 2 diabetes mellitus with complication, with long-term current use of insulin | | (HCC) | + + | Acute renal failure superimposed on stage 4 chronic kidney disease, unspecified acute | | renal failure type (HCC) | + +"
--- OUTSIDE RECORDS SUMMARY | ~2018-10-01 | XMS | Encounter Summary ---
Demographics + + + | Address | [address] | | | [place] [address] | + + + | Home Phone | | + + + | Preferred Language | Unknown | + + + | Marital Status | Unknown | + + + | Yazidi Affiliation | Unknown | + + + | Race | Unknown | + + + | Ethnic Group | Unknown | + + + Author + + + | Author | [employer] | + + + | Organization | [email or web address] | + + + | Address | Unknown | + + + | Phone | Unavailable | + + + Support + + +---------+ + | Name | Relationship | Address | Phone | + + +---------+ + | Sachin Dwyer | ECON | Unknown | | + + +---------+ + Care Team Providers + +------+ + | Care Senior Quality Manager Name | Role | Phone | [...] | | | | | [facility] [address] | | | | | | [place] [address] | | | | | | [phone] | | | +--------+ + + + [...] | | | | | | [address] [place], [place] | | | | | | [id number] | | | | | | | [...]
--- OUTSIDE RECORDS SUMMARY | ~2018-10-01 | XMS | Encounter Summary ---
Demographics + + + | Address | [address] | | | [place] [address] | + + + | Home Phone | | + + + | Preferred Language | Unknown | + + + | Marital Status | Unknown | + + + | Hoahaoism Affiliation | Unknown | + + + | Race | Unknown | + + + | Ethnic Group | Unknown | + + + Author + + + | Author | [employer] | + + + | Organization | [email or web address] | + + + | Address | Unknown | + + + | Phone | Unavailable | + + + Support + + +---------+ + | Name | Relationship | Address | Phone | + + +---------+ + | Sachin Dwyer | ECON | Unknown | | + + +---------+ + Care Team Providers + +------+ + | Care Tools Administrator Name | Role | Phone | + +------+ + | ManoloMaribel | PCP | | + +------+ + Encounter Details +--------+ + + + + | Date | Type | Department | Care Team | Description | +--------+ + + + + | 08/08/ | Procedure | [facility] | | | | 2018 | Pass | [address] | | | | | | [facility] | | | | | | [address] [facility] | | | | | | [place] [address] | | | | | | [phone] | | | +--------+ + + + [...] | | | | | | [address] [place] | | | | | | [address] | | | | | | | | +--------+---------+ + + + as of this encounter Visit Diagnoses Not on filein this encounter"
--- OUTSIDE RECORDS SUMMARY | ~2018-10-01 | XMS | Encounter Summary ---
Demographics + + + | Address | [address] | | | [place] [address] | + + + | Home Phone [...] + | Sachin Dwyer | ECON | [address] | | | | | [place] | | + + + + + | Sachin Dwyer | ELVIRA | Unknown | | + + + + + Care Team Providers + +------+ + | Care Food Preparation Supervisor Name | Role | Phone | + +------+ + | Bernadette Armendariz PA-C | BEBE | | + +------+ + Reason for Referral Diagnostic/Screening (Routine) + +--------+ + + + + | Status | Reason | Specialty | Diagnoses / | Referred By | Referred To | | | | | Procedures | Contact | Contact | + +--------+ + + + + | Pending | | Radiology | Diagnoses | Arnie, | Trenam Echo | | Review | | | Congestive | Сергей | [address] | | | | | heart | MD Don | [place], | | | | | failure, | [address] | [place] | | | | | unspecified | St [place] | [address] | | | | | HF | [place], [place] | Phone: | | | | | chronicity, | [address] | [phone] | | | | | unspecified | Phone: | Fax: | | | | | heart | [phone] | [phone] | | | | | failure type | Fax: | | | | | | (HCC) | [phone] | | | | | | Coronary [...] | | | | | | | [place] or | | | | | | | transplanted | | | | | | | heart | | | | | | | Procedures | | | | | | | ECHO | | | | | | | Complete ND | | | | | | | ECHO HEART | | | | | | | XTHORACIC,CO | | | | | | | MPLETE W | | | | | | | DOPPLER ND | | | | | | | ECHO HEART | | | | | | | XTHORACIC,CO | | | | | | | MPLETE, W/O | | | | | | | DOPPLER | | | | | | | 10/01> MODA | | | | | | | EOCCO AUTH | | | | | | | RECD. > PEND | | | | | | | DOS TO | | | | | | | REQUEST YH | | | | | | | AUTH | | | + +--------+ + + + + Reason for Visit +--------+ + | Reason | Comments | +--------+ + | Other | echo needed | +--------+ + Encounter Details +--------+ + + + + | Date | Type | Department | Care Team | Description | +--------+ + + + + | 08/06/ | Telephone | [facility] | Сергей Gaitan | Other (echo needed) | | 2019 | | CARDIOLOGY [address] | MD Don [address] | | | | | [address] [place], | [address] [place] | | | | | [place] [address] | [place] [address] | | | | | [phone] | [phone] | | | | | | | [...] Cardiology | Сергей Gaitan | | | 2018 | Visit | | MD Don [address] | | | | | | [address] [place] | | | | | | [place] [address] | | | | | | [phone] | | | | | | | | +--------+---------+ + + + + +--------+ + + | Name | Priori | Associated Diagnoses | Order Schedule | | | ty | | | + +--------+ + + | ECHO Complete | Routin | Congestive heart | Expected: | | | e | failure, unspecified | 08/06/2018, Expires: | | | | HF chronicity, | 08/06/2019 | | | | unspecified heart | [...] unspecified whether | | | | | [place] or | | | | | transplanted heart | | + +--------+ + + as of this encounter Visit Diagnoses + + | Diagnosis | + + | Congestive heart failure, unspecified HF chronicity, unspecified heart failure type | | (HCC) - Primary | + + | Coronary artery disease, angina presence unspecified, unspecified vessel or lesion | | type, unspecified whether [place] or transplanted heart | + +"
--- OUTSIDE RECORDS SUMMARY | ~2018-10-01 | XMS | Encounter Summary ---
Demographics + + + | Address | [address] | | | [place] [address] | + + + | Home Phone [...] Author + + + | Author | [employer] | + + + | Organization | [facility] | + + + | Address | Unknown | + + + | Phone | Unavailable | + + + Support + + +---------+ + | Name | Relationship | Address | Phone | + + +---------+ + | Sachin Dwyer | ECON | Unknown | | + + +---------+ + Care Team Providers + +------+ + | Care Bank Courier Name | Role | Phone | [...] | | | | | [place], | [place], [place] | | | | | | [place] [address] | [address] Phone: | | | | | | Phone: | [phone] | | | | | | [phone] | Fax: | | | | | | Fax: | [phone] | | | | | | [phone] | | +--------+--------+ + + + + Encounter Details +--------+ + + + + | Date | Type | Department | Care Team | Description | +--------+ + + + + | 07/18/ | Initial | [facility] | Brynn Crawford MD | CAD in [place] artery | | 2018 | consult | [facility] [place] | [address] | (Primary Dx); | | | | [address] | [place] [address] | Congestive heart | | | | [place], [place] | [phone] | failure, unspecified | | | | [address] | | HF chronicity, | | | | [phone] | | unspecified heart | | | [...] Vic Gaitan in [facility] for evaluation. 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 She about [...] cant ST or T-wave abnormalities. Scores: 1. [id number] Score: 4 2. Kenyan Anginal Score: 2 3. NYHA Score: 2-3 [...] | | | | | | [address] [place] [place] | | | | | | [address] | | | | | | | | +--------+---------+ + + + + +--------+ + + | Name | Priori | Associated Diagnoses | Order Schedule | | | ty | | | + +--------+ + + | CL left heart catheterization | Routin | CAD in [place] | Ordered: 07/18/2018 | | with coronary [...] | Routin | 07/18/2018 | CAD in [place] | Results for this | | | [...] + + + + | Calculated P Frostproof | 44 | degrees | [facility] EKG | + + + + + | Calculated R Frostproof | -29 | degrees | [facility] EKG | + + + + + | Calculated T Frostproof | 70 | degrees | [facility] EKG | + + + + + | Diagnosis | Please refer to | | [facility] EKG | | | Providers office visit | | | | | note for Providers | | | | | Interpretation.Confirmed | | | | | by [facility] Read Only, | | | | | [facility] [employer] ([id number]), | | | | | videotape editor Davi Dhaliwal | | | | | ([id number]) on 07/18/2018 | | | | | 11:46:17 AM | | | + + + + + + + + + + | Performing | Address | City/State/Zipcode | Phone Number | | Organization | | | | + + + + + | [facility] | [address] | [place] [address] | | + + + + + in this encounter Visit Diagnoses + + | Diagnosis | + + | CAD in [place] artery - Primary | + + | Coronary atherosclerosis of [place] coronary artery | + + | Congestive heart failure, unspecified HF chronicity, unspecified heart failure type | | (HCC) | + + | Precordial pain | + + | Ischemic cardiomyopathy | + + | Other specified forms of chronic ischemic heart disease | + +
--- OUTSIDE RECORDS SUMMARY | ~2018-10-01 | XMS | Encounter Summary ---
Demographics + + + | Address | [address] | | | [place] [address] | + + + | Home Phone | | + + + | Preferred Language | Unknown | + + + | Marital Status | Unknown | + + + | Pentecostalism Affiliation | Unknown | + + + | Race | Unknown | + + + | Ethnic Group | Unknown | + + + Author + + + | Author | [facility] | + + + | Organization | [facility] | + + + | Address | Unknown | + + + | Phone | Unavailable | + + + Support + + +---------+ + | Name | Relationship | Address | Phone | + + +---------+ + | Sachin Dwyer | ECON | Unknown | | + + +---------+ + Care Team Providers + +------+ + | Care Port Steward Name | Role | Phone | + +------+ + | Clinic[facility]arth[facility]lle Snyderal | PCP | | + +------+ + Reason for Visit Auth/Cert +--------+--------+ + + + + | Status | Reason | Specialty | Diagnoses / | Referred By | Referred To | | | | | Procedures | Contact | Contact | +--------+--------+ + + + + | | | | Diagnoses | | | | | | | Precordial | | | | | | | pain | | | | | | | Ischemic | | | | | | | cardiomyopat | | | | | | | hy CAD in | | | | | | | mechoopda | | | | | | | artery | | | | | | | Congestive | | | | | | | heart | | | | | | | failure, | | | | | | | unspecified | | | | | | | HF | | | | | | | chronicity, | | | | | | | unspecified | | | | | | | heart | | | | | | | failure type | | | | | | | ([facility]) | | | | | | | | | | | | | | Procedures | | | | | | | CL LEFT | | | | | | | HEART CATH | | | | | | | WITH | | | | | | | CORONARY | | | | | | | ANGIO | | | +--------+--------+ + + + + Encounter Details +--------+ + + + + | Date | Type | Department | Care Team | Description | +--------+ + + + + | 08/05/ | Hospital | [facility] | Brynn Crawford MD | CAD in mechoopda | | 2019 - | Encounter | [facility] | [address] | artery; Congestive | | | | Floor [facility] | [place] [address] | heart failure, | | 08/11/ | | [address] | [phone] | unspecified HF | | 2019 | | [place] [address] | | chronicity, | | | | [phone] | Kimberly Owens DO | unspecified heart | | | | | [address] | failure type ([facility]); | | | | | [place] [address] | Precordial pain; | | | | | [phone] | Ischemic | | | | | | cardiomyopathy | | | | | Gustavo Castorena MD | | | | | | [address] | | | | | | [place] [address] | | | | | | [phone] | | | | | | | | | | | | 1, [facility] Cardiac/Vascular Sonographer | | +--------+ + + + + [...] | Blood Pressure | 117/55 | 08/11/2018 11:36 AM PST | + + + + | Pulse | 67 | 08/11/2018 11:36 AM PST | + + + + | Temperature | 36.6 C (97.8 F) | 08/11/2018 11:36 AM PST | + + + + | Respiratory Rate | 18 | 08/11/2018 11:36 AM PST | + + + + | Oxygen Saturation | 96% | 08/11/2018 11:36 AM PST | + + + + | Inhaled Oxygen | - | - | | Concentration | | | + + + + | Weight | 87.3 kg (192 lb 7.4 | 08/09/2018 3:38 AM PST | | | oz) | | + + + + | Height | 160 cm (5' 2.99") | 08/08/2018 8:39 AM PST | + + + + | Body Mass Index | 34.1 | 08/09/2018 3:38 AM PST | + + + + in this encounter Discharge Summaries Gustavo Castorena MD - 08/10/2018 9:42 AM PSTFormatting of this note may be different from the original. 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 She presented from outpatient [...] Motor grossly intact. LABS: Recent Labs Lab 08/10/18 0417 08/09/18 0522 08/08/18 0440 08/05/18 1100 WBC 5.46 5.17 5.62 < > [...] interval not displayed. Recent Labs Lab 08/11/1841908/10/1841608/09/18 0522 NA 139 139 140 K 5.0* 4.9 4.8 CL 108 107 108 CO2 23 24 22* BUN 57* 53* 48* CREATININE 2.2* 2.3* 1.8* GLUF 148* 165* 140* No results for input(s): CKTOTAL, TROPONINI, TROPONINT, CKMBINDEX in the last 168 hours. Recent Labs Lab 08/11/1841908/10/1841608/09/18 0522 PHOS 5.2* 4.7 4.5 Recent Labs Lab 08/09/18 0522 08/08/18 0440 08/07/18 0441 MG 2.1 1.9 2.0 Invalid input(s): ABG Disposition: HOME Follow up: [facility] [address] [facility] [address] James Pearce MD [facility] [address] [address] Schedule an appointment as soon as possible [...] care, follow up and dictation of summary. in this encounter Discharge Instructions The following attachments cannot be sent through Care Everywhere.Carvedilol tablets (Englis h)Hyperkalemia, Discharge Instructions (Turkmen)in this encounter Medications at Time of Discharge + + +--------+---------+ + + | Medication | Sig. | Disp. | Refills | Start | End Date | | | | | | Date | | + + +--------+---------+ + + | acetaminophen | Take 325 mg by mouth | | | | | | (TYLENOL) 325 MG | every 6 (six) hours | | | | | | tablet | as needed for Pain. | | | | | + + +--------+---------+ + + | ascorbic acid | Take 1 tablet by | 30 | 11 | 08/11/19 | | | (VITAMIN C) 500 MG | mouth daily. | tablet | | 19 | 0 | | tablet | | | | | | + + +--------+---------+ + + | aspirin 81 MG EC | Take 81 mg by mouth | | | | | | tablet | daily. | | | | | + + +--------+---------+ + + | atorvastatin | Take 10 mg by mouth | | | | | | (LIPITOR) 10 MG | nightly. | | | | | | tablet | | | | | | + + +--------+---------+ + + | cholecalciferol | Take 2,000 Units by | 90 | 2 | 08/11/19 | | | 2000 units TABS | mouth daily. | tablet | | 19 | 0 | + + +--------+---------+ + + | doxycycline | Take 50 mg by mouth | | | | | | (ADOXA) 50 MG tablet | 2 (two) times daily. | | | | | + + +--------+---------+ + + | ferrous sulfate, | Take 1 tablet by | 30 | 2 | 08/11/19 | | | 65 FE, 325 (65 FE) | mouth daily with | tablet | | 19 | 0 | | MG tablet | breakfast. | | | | | + + +--------+---------+ + + | fexofenadine | Take 180 mg by mouth | | | | | | (TIAN) 180 MG | as needed. | | | | | | tablet | | | | | | + + +--------+---------+ + + | hydrALAZINE | Take 3 tablets by | 270 | 1 | 08/11/19 | | | (APRESOLINE) 25 MG | mouth 3 (three) | tablet | | 19 | 0 | | tablet | times daily. | | | | | + + +--------+---------+ + + | insulin glargine | Inject 25 Units into | | | | | | (LANTUS) 100 UNIT/ML | the skin nightly. | | | | | | injection | | | | | | + + +--------+---------+ + + | melatonin 1 MG | Take 1 mg by mouth | | | | | | tablet | nightly as needed. | | | | | + + +--------+---------+ + + | traMADol (ULTRAM) | Take 1 tablet by | 30 | 0 | 08/11/19 | | | 50 MG tablet | mouth every 6 (six) | tablet | | 19 | | | | hours as needed. | | | | | + + +--------+---------+ + + as of this encounter Progress Notes Shin Rivera MD - 08/11/2018 10:45 AM PSTFormatting of this note may be different from t remedios original. PCP : [facility] LOS: 5 days Maria Ines Martin [...] was completed later after rounds. Dictation software, PFSweb, was used which may contain error for [...] Nightly traZODone 50 mg Oral Nightly dextrose Teena Encinas RD - 08/10/2018 1:16 PM PSTFormatting of this note may be different from th e original. 08/10/18 1312 Subjective Timepoint Follow up (diet education) Food and Nutrition Knowledge Area(s) and Level of Knowledge In to see pt for renal cardiac diet. Pt K+ WNL at this time but hx hyperkalemia. Discussed high potassium foods and provided list from [facility]. Discussed th at she does not need to limit at this time with ARF and WNL K+ but may need to in the future . Provided low sodium handout from [facility] and discussed. Pt reports that she is discharging tod ay. Will follow per protocol. Teena Encinas, MS, Shin Pride MD - 08/10/2018 12:09 PM PSTFormatting of this note may be different from the original. PCP : [facility] LOS: 4 days Maria Ines Martin [...] was completed later after rounds. Dictation software, PFSweb, was used which may contain error for [...] traZODone 50 mg Oral Nightly dextrose Gustavo Castorena MD - 08/10/2018 9:52 AM PSTFormatting of this note may be different from the original. [facility] Service: Hospitalist Progress Note Hospital Day: LOS: 4 days SUBJECTIVE Still c/o back pain. Slept well Did not see novelty worker HPI: Ms. Maria Ines Martin is [...] the last 168 hours. Recent Labs Lab 08/10/1841608/09/1852108/08/18439 PHOS 4.7 4.5 4.4 Recent Labs Lab 08/09/1852108/08/1843908/07/18 0441 MG 2.1 1.9 2.0 Invalid input(s): [...] So likely has Non ischemic Cardiomyopathy. Dr rCawford following for recs BP is better now [...] and management as well as Computerized Physician Flight Follower. Disposition: Home ? Code Status: Full Code Gustavo Castorena MD 08/10/2018 9:57 AM Shin Rivera MD - 08/09/2018 5:48 PM PSTFormatting of this note may be different from t remedios original. PCP : [facility] LOS: 3 days Maria Ines Martin [...] outpatient follow up with Dr. Pearce in [place]. Strict low K diet. Diet 2 gm [...] was completed later after rounds. Dictation software, PFSweb, was used which may contain error for [...] traZODone 50 mg Oral Nightly dextrose Gustavo Castorena MD - 08/09/2018 2:16 PM PSTFormatting of this note may be different from the original. [facility] Service: Hospitalist Progress Note Hospital Day: [...] - - 65 - 99 % - 08/08/182044 128/55 - - 65 - - - 08/08/182029 117/58 - - 65 - 95 % - 08/08/181999 108/53 - - 67 - 96 % - 08/08/18 1930 140/65 97.6 F (36.4 C) Oral 72 - 99 % - 08/08/18 1915 140/65 97.6 F (36.4 C) - 73 - 98 % - 08/08/18 1907 140/65 97.7 F (36.5 C) Oral [...] Labs Lab 08/09/18 0522 08/08/18 0440 08/07/18 04408/05/18 1100 WBC 5.17 5.62 5.64 < > [...] interval not displayed. Recent Labs Lab 08/09/18 0522 08/08/18 0440 08/07/18 1456 NA 140 143 144 K 4.8 5.0* 4.9 CL 108 110* 112* CO2 22* 24 24 BUN 48* 47* 44* CREATININE 1.8* 1.8* 2.0* GLUF 140* 142* 159* No results for input(s): CKTOTAL, TROPONINI, TROPONINT, CKMBINDEX in the last 168 hours. Recent Labs Lab 08/09/18 0522 08/08/18 0440 08/07/18 0441 PHOS 4.5 4.4 4.1 Recent [...] and management as well as Computerized Physician Flight Follower. Disposition: Home ? Code Status: Full Code Gustavo Castorena MD 08/09/2018 2:16 PM Brynn Crawford MD - 08/08/2018 4:42 PM PSTFormatting of this note may be different from the original. [facility] Service: Cardiology[facility] Progress Note RE: Maria Ines [...] Mild mitral regurgitation is present. Scores: 1. [id number] Score: 3 2. Kittitian Anginal Score: 3 3. NYHA Score: 2 [...] Brynn Crawford MD, F.A.C.C. 08/08/2018 4:42 PM Gustavo Castorena MD - 08/08/2018 2:53 PM PSTFormatting of this note may be different from nilda king. [facility] Service: Hospitalist Progress Note Hospital Day: [...] last 168 hours. Recent Labs Lab 08/08/18 0440 08/07/18 0441 08/06/18 0605 PHOS 4.4 4.1 4.7 [...] LIST Principal Problem: GRACIELA (acute kidney injury) ([facility]) Active Problems: Ischemic cardiomyopathy Chronic systolic heart failure (HCC) Hyperkalemia Essential hypertension Type 2 diabetes mellitus with complication, with long-term current use of insulin ([facility]) ASSESSMENT / PLAN Heart failure reduced ejection [...] and management as well as Computerized Physician Flight Follower. Disposition: Home ? Code Status: Full Code Gustavo Castorena MD 08/08/2018 2:53 PM Shin Rivera MD - 08/08/2018 11:26 AM PSTFormatting of this note may be different from t remedios original. PCP : [facility] LOS: 2 days Maria Ines Martin [...] was completed later after rounds. Dictation software, PFSweb, was used which may contain error for similar sounding words nabor n after review. Personal communication is requested for any clarification. Prognosis is guarded in view of multiple comorbid illnesses and acute on chronic renal fail ure including but not limited to potential need for POLICE INVESTIGATOR and . amLODIPine 7.5 mg Oral Daily aspirin 81 mg Oral Daily with breakfast atorvastatin 10 mg Oral Nightly enoxaparin 30 mg Subcutaneous Daily hydrALAZINE 75 mg Oral TID hydrochlorothiazide 25 mg Oral Daily insulin glargine 10 Units Subcutaneous Nightly insulin lispro (human) 0-10 Units Subcutaneous TID AC insulin lispro (human) 0-5 Units Subcutaneous Nightly dextrose Gustavo Castorena MD - 08/07/2018 10:50 AM PSTFormatting of this note may be different from the original. [facility] Service: Hospitalist Progress Note Hospital Day: [...] -- -- AUTOMATED Recent Labs Lab 08/07/18 04408/06/18 1201 08/06/18 0605 08/05/18 1100 NA 145 [...] 0605 PHOS 4.1 4.7 Recent Labs Lab 08/07/1844008/06/18 0605 MG 2.0 2.1 Invalid input(s): ABG [...] and management as well as Computerized Physician Flight Follower. Disposition: Home ? Code Status: Full Code Gustavo Castorena MD 08/07/2018 10:50 AM Brynn Crawford MD - 08/07/2018 8:47 AM PSTFormatting of this note may be different from the original. [facility] Service: [facility] Progress Note RE: Maria Ines [...] Mild mitral regurgitation is present. Scores: 1. [id number] Score: 2. Kittitian Anginal Score: 3. NYHA Score: ASSESSMENT: 1. [...] her [facility] better ejection fraction than what it was [facility] at [facility]. Regardless with her history of chest [...] Brynn Crawford MD, F.A.C.C. 08/07/2018 8:47 AM Gustavo Castorena MD - 08/06/2018 1:52 PM PSTFormatting of this note may be different from nilda king. [facility] Service: Hospitalist Progress Note Hospital Day: [...] 0605 PHOS 4.7 Recent Labs Lab 08/06/18 06 MG 2.1 Invalid input(s): ABG No results [...] and management as well as Computerized Physician Flight Follower. Disposition: Home ? Code Status: Full Code Gustavo Castorena MD 08/06/2018 1:[address] - 08/06/2018 12:04 PM PSTFormatting of this note may be different fro m the original. 08/06/18 1155 Subjective Timepoint Admit Pt c/o Pt triggered for dysphagia. Pt admitted for acute renal failure. 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 Pt went ov er her hx of [...] any concerns for dysphag ia consider ordering APPAREL DESIGNER eval. Anthropometrics Weight change Pt's BMI is 34 and pt is 166% of IBW. Pt reports she has gained wt over the p ast 4 months after stopping meth. Biochemical data, medical tests, and procedures reviewed Biochemical data, medical tests, and procedures reviewed Labs reviewed. Recommendations Recommended energy needs Continue diet as ordered with modications per APPAREL DESIGNER, if needed. Enco urage po intake as tolerated. Monitor and follow as indicated. Nutritional Risk Nutritional risk Low Follow up date 08/13/18 YANG Khan Iyad, MD - 08/06/2018 8:51 AM PSTFormatting of this note may be different from the original. [facility] Service: [facility] Progress Note RE: Maria Ines [...] prolonged QRS Imaging Chest X-Ray: Scores: 1. [id number] Score: 2. Kittitian Anginal Score: 3. NYHA Score: ASSESSMENT: 1. [...] Brynn Crawford MD, F.A.C.C. 08/06/2018 8:52 AM Brynn Crawford MD - 08/05/2018 1:38 PM PSTFormatting of this note may be different from th e original. Mrs. Martin presented for her prescheduled cardiac [...] was seen by Dr. Vic Gaitan in [facility] for evaluation. An echoca rdiogram was [...] cant ST or T-wave abnormalities. Scores: 1. [id number]-Bzer Score: 4 2. Kittitian Anginal Score: 2 3. NYHA Score: 2-3 [...] | | | | | | [address] [place], [place] | | | | | | [address] | | | | | | | [...] | + +--------+ + + + | FIORELLA/GABRIEL FR LT CH RAT | Add-On | 08/08/2018 | | Results [...] + + + in this encounter Results POCT glucose (08/11/2018 11:36 AM) + + + + + | Component | Value | Ref Range | Performed At | + + + + + | GLUCOSE,POC SCREEN | 151 (H)Comment: Testing | 65 - 99 mg/dL | [facility] | | | performed at [facility] | | | | | [facility], [place] | | | | | [address] | | | + + + + + + + + + + | Performing | Address | City/State/Zipcode | Phone Number | | Organization | | | | + + + + + | [facility] | [address] | [place] [address] | | + + + + + POCT glucose (08/11/2018 5:23 AM) + + + + + | Component | Value | Ref Range | Performed At | + + + + + | GLUCOSE,POC SCREEN | 133 (H)Comment: Testing | 65 - 99 mg/dL | [facility] | | | performed at [facility] | | | | | [address];[place] | | | | | [address] | | | + + + + + + + + + + | Performing | Address | City/State/Zipcode | Phone Number | | Organization | | | | + + + + + | [facility] | [address] | [place] [address] | | + + + + + Renal function panel (08/11/2018 4:20 AM) + + + + + | [...] (L)Comment: GFR <60: | >60 mL/min/1.73m2 | [facility] | | | CHRONIC KIDNEY DISEASE, | [...] the | | | | | MDRD IDMS traceable | | | | | equation.Testing | | | | | performed at [facility], [address] | | | | | [facility], | | | | | [place] [address] | | | + + + + + + + | Specimen | + + | Blood | + + + + + + + | Performing | Address | City/State/Zipcode | Phone Number | | Organization | | | | + + + + + | [facility] | [address] | [place] [address] | [phone] | | LABORATORY | [address] | | | + + + + + POCT glucose (08/10/2018 9:06 PM) + + + + + | Component | Value | Ref Range | Performed At | + + + + + | GLUCOSE,POC SCREEN | 157 (H)Comment: Testing | 65 - 99 mg/dL | [facility] | | | performed at [facility] | | | | | [address];[place] | | | | | [address] | | | + + + + + + + + + + | Performing | Address | City/State/Zipcode | Phone Number | | Organization | | | | + + + + + | [facility] | [address] | [place] [address] | | + + + + + POCT glucose (08/10/2018 4:16 PM) + + + + + | Component | Value | Ref Range | Performed At | + + + + + | GLUCOSE,POC SCREEN | 181 (H)Comment: Testing | 65 - 99 mg/dL | [facility] | | | performed at [facility] | | | | | [address];[place], [place] | | | | | [address] | | | + + + + + + + + + + | Performing | Address | City/State/Zipcode | Phone Number | | Organization | | | | + + + + + | [facility] | [address] | [place] [address] | | + + + + + [...] | + + + + + | [facility] | [address] | [facility] [place] [address] | | + + + + + POCT glucose (08/10/2018 12:00 PM) + + + + + | Component | Value | Ref Range | Performed At | + + + + + | GLUCOSE,POC SCREEN | 186 (H)Comment: Testing | 65 - 99 mg/dL | [facility] | | | performed at [facility] | | | | [address];[place] | | | | | [address] | | | + + + + + + + + + + | Performing | Address | City/State/Zipcode | Phone Number | | Organization | | | | + + + + + | [facility] | [address] | [place] [address] | | + + + + + POCT glucose (08/10/2018 5:30 AM) + + + + + | Component | Value | Ref Range | Performed At | + + + + + | GLUCOSE,POC SCREEN | 160 (H)Comment: Testing | 65 - 99 mg/dL | [facility] | | | performed at [facility];[address] | | | | | [address];[place] | | | | | [address] | | | + + + + + + + + + + | Performing | Address | City/State/Zipcode | Phone Number | | Organization | | | | + + + + + | [facility] | [address] | [place] [address] | | + + + + + Renal function panel (08/10/2018 4:17 AM) + + + + + | Component | Value | Ref Range | Performed At | + + + + + | SODIUM | 139 | 135 - 145 mmol/L | [facility] | | | | | LABORATORY | + + + + + | POTASSIUM | 4.9 | 3.5 - 4.9 mmol/L | [facility] | | | | | LABORATORY | + + + + + | CHLORIDE | 107 | 99 - 109 mmol/L | [facility] | | | | | LABORATORY | + + + + + | CO2 | 24 | 23 - 32 mmol/L | [facility] | | | | | LABORATORY | + + + + + | ANION GAP AGAP | 13 | 5 - 20 mmol/L | [facility] | | | | | LABORATORY | + + + + + | GLUCOSE | 165 (H) | 65 - 99 mg/dL | [facility] | | | | | LABORATORY | + + + + + | BUN | 53 (H) | 8 - 25 mg/dL | [facility] | | | | | LABORATORY | + + + + + | CREATININE | 2.3 (H) | 0.50 - 1.00 mg/dL | [facility] | | | | | LABORATORY | + + + + + | CALCIUM | 7.7 (L) | 8.5 - 10.5 mg/dL | [facility] | | | | | LABORATORY | + + + + + | Albumin | 2.1 (L) | 3.3 - 4.8 g/dL | [facility] | | | | | LABORATORY | + + + + + | PHOSPHORUS | 4.7 | 2.3 - 4.8 mg/dL | [facility] | | | | | LABORATORY | + + + + + | EGFR | 22 (L)Comment: GFR <60: | >60 mL/min/1.73m2 | [facility] | | | CHRONIC KIDNEY DISEASE, | [...] the | | | | | MDRD IDMS traceable | | | | | equation.Testing | | | | | performed at [facility], [address] | | | | | [facility], | | | | | [place] [address] | | | + + + + + + + + + + | Performing | Address | City/State/Zipcode | Phone Number | | Organization | | | | + + + + + | [facility] | [address] | [place] [address] | [phone] | | LABORATORY | [address]. | | | + + + + + CBC w/no Diff (08/10/2018 4:17 AM) + + + + + | [...] | [facility] | | | performed at [facility], [address] | | LABORATORY | | | [facility], | | | | | [place] [address] | | | + + + + + + + + + + | Performing | Address | City/State/Zipcode | Phone Number | | Organization | | | | + + + + + | [facility] | [address] [place] [address] | [place] [address] | [phone] | | LABORATORY | [address]. | | | + + + + + POCT glucose (08/09/2018 9:09 PM) + + + + + | Component | Value | Ref Range | Performed At | + + + + + | GLUCOSE,POC SCREEN | 194 (H)Comment: Testing | 65 - 99 mg/dL | [facility] | | | performed at [facility] | | | | | [address];[place] | | | | | [address] | | | + + + + + + + + + + | Performing | Address | City/State/Zipcode | Phone Number | | Organization | | | | + + + + + | [facility] | [address] | [place] [address] | | + + + + + POCT glucose (08/09/2018 4:13 PM) + + + + + | Component | Value | Ref Range | Performed At | + + + + + | GLUCOSE,POC SCREEN | 127 (H)Comment: Testing | 65 - 99 mg/dL | [facility] | | | performed at [facility];[address] | | | | | [address];[place] | | | | | [address] | | | + + + + + + + + + + | Performing | Address | City/State/Zipcode | Phone Number | | Organization | | | | + + + + + | [facility] | [address] | [place] [address] | | + + + + + POCT glucose (08/09/2018 11:48 AM) + + + + + | Component | Value | Ref Range | Performed At | + + + + + | GLUCOSE,POC SCREEN | 110 (H)Comment: Testing | 65 - 99 mg/dL | [facility] | | | performed at [facility];[address] | | | | | [address];[place] | | | | | [address] | | | + + + + + + + + + + | Performing | Address | City/State/Zipcode | Phone Number | | Organization | | | | + + + + + | [facility] | [address] | [place] [address] | | + + + + + Magnesium (08/09/2018 5:22 AM) + + + + + | Component | Value | Ref Range | Performed At | + + + + + | MAGNESIUM | 2.1Comment: Testing | 1.7 - 2.4 mg/dL | [facility] | | | performed at [facility], [address] | | LABORATORY | | | [address], | | | | | [place] [address] | | | + + + + + + + + + + | Performing | Address | City/State/Zipcode | Phone Number | | Organization | | | | + + + + + | [facility] | [address] | [place] [address] | [phone] | | LABORATORY | Blvd[address] | | | + + + + + CBC saman/cristina Qureshi (08/09/2018 5:22 AM) + + + + + | Component | Value | Ref Range | Performed At | + + + + + | WBC | 5.17 | 3.80 - 11.00 K/uL | [facility] | | | | | LABORATORY | + + + + + | RBC | 3.42 (L) | 3.70 - 5.10 M/uL | [facility] | | | | | LABORATORY | + + + + + | HGB | 9.6 (L) | 11.3 - 15.5 g/dL | [facility] | | | | | LABORATORY | + + + + + | HCT | 29.0 (L) | 34.0 - 46.0 % | [facility] | | | | | LABORATORY | + + + + + | MCV | 85.0 | 80.0 - 100.0 fl | [facility] | | | | | LABORATORY | + + + + + | MCH | 28.1 | 27.0 - 34.0 pg | [facility] | | | | | LABORATORY | + + + + + | MCHC | 33.1 | 32.0 - 35.5 g/dL | [facility] | | | | | LABORATORY | + + + + + | RDW SD | 41.6 | 37 - 53 fl | [facility] | | | | | LABORATORY | + + + + + | PLT | 161 | 150 - 400 K/uL | [facility] | | | | | LABORATORY | + + + + + | MPV | 10.7Comment: Testing | fl | [facility] | | | performed at [facility], [address] | | LABORATORY | | | [address], | | | | | [place] [address] | | | + + + + + + + + + + | Performing | Address | City/State/Zipcode | Phone Number | | Organization | | | | + + + + + | [facility] | [address] | [place] [address] | [phone] | | LABORATORY | Blvd. | | | + + + + + Renal function panel (08/09/2018 5:22 AM) + + + + + | Component | Value | Ref Range | Performed At | + + + + + | SODIUM | 140 | 135 - 145 mmol/L | [facility] | | | | | LABORATORY | + + + + + | POTASSIUM | 4.8 | 3.5 - 4.9 mmol/L | [facility] | | | | | LABORATORY | + + + + + | CHLORIDE | 108 | 99 - 109 mmol/L | [facility] | | | | | LABORATORY | + + + + + | CO2 | 22 (L) | 23 - 32 mmol/L | [facility] | | | | | LABORATORY | + + + + + | ANION GAP AGAP | 15 | 5 - 20 mmol/L | [facility] | | | | | LABORATORY | + + + + + | GLUCOSE | 140 (H) | 65 - 99 mg/dL | [facility] | | | | | LABORATORY | + + + + + | BUN | 48 (H) | 8 - 25 mg/dL | [facility] | | | | | LABORATORY | + + + + + | CREATININE | 1.8 (H) | 0.50 - 1.00 mg/dL | [facility] | | | | | LABORATORY | + + + + + | CALCIUM | 8.0 (L) | 8.5 - 10.5 mg/dL | [facility] | | | | | LABORATORY | + + + + + | Albumin | 2.2 (L) | 3.3 - 4.8 g/dL | [facility] | | | | | LABORATORY | + + + + + | PHOSPHORUS | 4.5 | 2.3 - 4.8 mg/dL | [facility] | | | | | LABORATORY | + + + + + | EGFR | 29 (L)Comment: GFR <60: | >60 mL/min/1.73m2 | [...] the | | | | | MDRD [facility] traceable | | | | | equation.Testing | | | | | performed at [facility], [address] | | | | | [facility], | | | | | [place] [address] | | | + + + + + + + | Specimen | + + | Blood | + + + + + + + | Performing | Address | City/State/Zipcode | Phone Number | | Organization | | | | + + + + + | [facility] | [address] | [place] [address] | [phone] | | LABORATORY | Blvd. | | | + + + + + POCT glucose (08/09/2018 5:08 AM) + + + + + | Component | Value | Ref Range | Performed At | + + + + + | GLUCOSE,POC SCREEN | 133 (H)Comment: Testing | 65 - 99 mg/dL | [facility] | | | performed at [facility] | | | | | [address];[place] | | | | | [address] | | | + + + + + + + + + + | Performing | Address | City/State/Zipcode | Phone Number | | Organization | | | | + + + + + | [facility] | [address] | [place] [address] | | + + + + + POCT glucose (08/08/2018 8:57 PM) + + + + + | Component | Value | Ref Range | Performed At | + + + + + | GLUCOSE,POC SCREEN | 158 (H)Comment: Testing | 65 - 99 mg/dL | [facility] | | | performed at [facility];[address] | | | | | [address];[place] | | | | | [address] | | | + + + + + + + + + + | Performing | Address | City/State/Zipcode | Phone Number | | Organization | | | | + + + + + | [facility] | [address] | [place] [address] | | + + + + + CL left heart cath with coronary angio (08/08/2018 6:10 PM) + + + | Narrative | Performed At | + + + | | [facility] | | | RADIOLOGY | | BRIEF [...] radial artery and a | | | 6-Egyptian sheath was placed. The JL-3.5 catheter was [...] + | Madhu, Rad Results In - 08/11/2018 6:02 PM PST [...] right radial artery and a | | 6-Egyptian sheath was placed. The JL-3.5 catheter was [...] + + | Performing | Address | City/State/[facility] | Phone Number | | Organization | | | | + + + + + | [facility] | [address] | [place] [address] | | + + + + + POCT glucose (08/08/2018 4:31 PM) + + + + + | Component | Value | Ref Range | Performed At | + + + + + | GLUCOSE,POC SCREEN | 180 (H)Comment: Testing | 65 - 99 mg/dL | [facility] | | | performed at [facility];[address] | | | | | [address];[place] | | | | | [address] | | | + + + + + + + + + + | Performing | Address | City/State/Zipcode | Phone Number | | Organization | | | | + + + + + | [facility] | [address] | [place] [address] | | + + + + + CONCETTA and LINA REFLEXIVE (08/08/2018 12:12 PM) + + + + + | Component | Value | Ref Range | Performed At | + + + + + | CONCETTA | NegativeComment: | | [facility] | | | Reference range: | | | | | NegativeTesting | | | | | performed at [facility], [address] | | | | | [address] | | | | | [place] [address] | | | + + + + + | CYTOPLASMIC (C ANCA) | <1:20Comment: Reference | titer | [facility] | | | range: Neg:<1:20 | | | + + + + + | PERINUCLEAR (P ANCA) | <1:20Comment: Reference | titer | [facility] | | | range: Neg:<1:20 The [...] with | | | | | both NJ-3 and MPO-ANCA | | | | | [...] ANCA | 1:640 (H)Comment: | titer | [facility] | | | Reference range: | [...] AB | <9.0Comment: Reference | U/mL | [facility] | | | range: 0.0 to 9.0 | | | + + + + + | ANTI PROTEINASE 3 | <3.5Comment: Reference | U/mL | [facility] | | | range: 0.0 to 3.5Testing | | | | | performed by [facility], | | | | | [address] [facility], | | | | | [facility] [address] | | | + + + + + + + | Specimen | + + | Blood | + + + + + + + | Performing | Address | City/State/Zipcode | Phone Number | | Organization | | | | + + + + + | [facility] | [address] | [place] [address] | | + + + + + Lactate dehydrogenase (08/08/2018 12:12 PM) + + + + + | Component | Value | Ref Range | Performed At | + + + + + | LDH | 255 (H)Comment: Testing | 115 - 225 U/L | [facility] | | | performed at [facility], [address] | | LABORATORY | | | [address], | | | | | [place] [address] | | | + + + + + + + | Specimen | + + | Blood | + + + + + + + | Performing | Address | City/State/Zipcode | Phone Number | | Organization | | | | + + + + + | [facility] | [address] | [place] [address] | [phone] | | LABORATORY | [address] | | [...] performed | | | | | at [facility], [address] | | | | | [address], | | | | | [place] [address] | | | + + + + + + + | Specimen | + + | Blood | + + + + + + + | Performing | Address | City/State/Zipcode | Phone Number | | Organization | | | | + + + + + | [facility] | [address] | [place] [address] | [phone] | | LABORATORY | Blvd[address] | | [...] performed | | | | | at [facility], [address] | | | | | [facility], | | | | | [place] [address] | | | + + + + + + + | Specimen | + + | Blood | + + + + + + + | Performing | Address | City/State/Zipcode | Phone Number | | Organization | | | | + + + + + | [facility] | [address] | [place] [address] | [phone] | | LABORATORY | Blvd. | | [...] Testing | 15 - 50 % | [facility] | | | performed at [facility], [address] | | LABORATORY | | | [address], | | | | | [place] [address] | | | + + + + + + + | Specimen | + + | Blood | + + + + + + + | Performing | Address | City/State/Zipcode | Phone Number | | Organization | | | | + + + + + | [facility] | [address] | [place] [address] | [phone] | | LABORATORY | [address]vd. | | | + + + + + Ferritin (08/08/2018 12:12 PM) + + + + + | Component | Value | Ref Range | Performed At | + + + + + | FERRITIN | 66Comment: Testing | 6 - 170 ng/mL | [facility] | | | performed at [facility], [address] | | LABORATORY | | | [facility] [place], | | | | | [place] [address] | | | + + + + + + + | Specimen | + + | Blood | + + + + + + + | Performing | Address | City/State/Zipcode | Phone Number | | Organization | | | | + + + + + | [facility] | [address] | [place] [address] | [phone] | | LABORATORY | Blvd. | | [...] performed at | | | | | [facility], [address] [place] [address] | | | | | [place] | | | | | [address] | | | + + + + + + + + + + | Performing | Address | City/State/Zipcode | Phone Number | | Organization | | | | + + + + + | [facility] | [address] | [place] [address] | [phone] | | LABORATORY | Blvd. | | [...] | [facility] | | | performed at [facility], [address] | | LABORATORY | | | [address], | | | | | [place] [address] | | | + + + + + + + + + + | Performing | Address | City/State/Zipcode | Phone Number | | Organization | | | | + + + + + | [facility] | [address] | [place] [address] | [phone] | | LABORATORY | [address]vd[address] | | | + + + + + FIORELLA/ NERY SORENSON (08/08/2018 12:12 PM) + + + + + | Component | Value | Ref Range | Performed At | + + + + + | KAPPA FLC | 96.5 (H)Comment: | mg/L | [facility] | | | Reference range: 3.3 to | | | | | 19.4 | | | + + + + + | LAMBDA FLC | 64.3 (H)Comment: | mg/L | [facility] | | | Reference range: 5.7 to | | | | | 26.3 | | | + + + + + | KAPPA/LAMBDA FLC | 1.50Comment: Reference | | [facility] | | RATIO | range: 0.26 to | | | | | 1.65Testing performed at | | | | | [facility], [address] | | | | | [place] | | | | | [place] [address] | | | + + + + + + + + + + | Performing | Address | City/State/Zipcode | Phone Number | | Organization | | | | + + + + + | [facility] | [address] | [place] [address] | | + + + + + Immunofixation,Serum (08/08/2018 12:12 PM) + + + + + | Component | Value | Ref Range | Performed At | + + + + + | Immunofixation | (See Below)Comment: No | | [facility] | | Result, Serum | monoclonality | | | | | detected.Testing | | | | | performed at [facility], [address] | | | | | [facility] | | | | | [place] [address] | | | + + + + + | IgG | 1,100Comment: Reference | mg/dL | [facility] | | | range: 700 to 1600 | | | + + + + + | IGA | 163Comment: Reference | mg/dL | [facility] | | | range: 87 to 352 | | | + + + + + | IGM | 69Comment: Reference | mg/dL | [facility] | | | range: 26 to 217Testing | | | | | performed at [facility], | | | | | [address], [address], | | | | | [place] [address] | | | + + + + + + + | Specimen | + + | Blood | + + + + + + + | Performing | Address | City/State/Zipcode | Phone Number | | Organization | | | | + + + + + | [facility] | [address] | [place] [address] | | + + + + + Uric acid (08/08/2018 12:12 PM) + + + + + | Component | Value | Ref Range | Performed At | + + + + + | URIC ACID | 6.6Comment: Testing | 2.2 - 7.1 mg/dL | [facility] | | | performed at [facility], [address] | | LABORATORY | | | [facility], | | | | | [place] [address] | | | + + + + + + + | Specimen | + + | Blood | + + + + + + + | Performing | Address | City/State/Zipcode | Phone Number | | Organization | | | | + + + + + | [facility] | [address] | [place] [address] | [phone] | | LABORATORY | [address] | | | + + + + + POCT glucose (08/08/2018 12:03 PM) + + + + + | Component | Value | Ref Range | Performed At | + + + + + | GLUCOSE,POC SCREEN | 165 (H)Comment: Testing | 65 - 99 mg/dL | [facility] | | | performed at [facility];[address] | | | | | [facility] | | | | | [address] | | | + + + + + + + + + + | Performing | Address | City/State/Zipcode | Phone Number | | Organization | | | | + + + + + | [facility] | [address] | [place] [address] | | + + + + + POCT glucose (08/08/2018 5:53 AM) + + + + + | Component | Value | Ref Range | Performed At | + + + + + | GLUCOSE,POC SCREEN | 183 (H)Comment: Testing | 65 - 99 mg/dL | [facility] | | | performed at [facility];[address] | | | | | [address];[place] | | | | | [address] | | | + + + + + + + + + + | Performing | Address | City/State/Zipcode | Phone Number | | Organization | | | | + + + + + | [facility] | [address] | [place] [address] | | + + + + + Magnesium (08/08/2018 4:40 AM) + + + + + | Component | Value | Ref Range | Performed At | + + + + + | MAGNESIUM | 1.9Comment: Testing | 1.7 - 2.4 mg/dL | [facility] | | | performed at [facility], [address] | | LABORATORY | | | [address], | | | | | [place] [address] | | | + + + + + + + + + + | Performing | Address | City/State/Zipcode | Phone Number | | Organization | | | | + + + + + | [facility] | [address] | [place] [address] | [phone] | | LABORATORY | [address]vd[address] | | | + + + + + CBC w/no Diff (08/08/2018 4:40 AM) + + + + + | Component | Value | Ref Range | Performed At | + + + + + | WBC | 5.62 | 3.80 - 11.00 K/uL | [facility] | | | | | LABORATORY | + + + + + | RBC | 3.56 (L) | 3.70 - 5.10 M/uL | [facility] | | | | | LABORATORY | + + + + + | HGB | 10.0 (L) | 11.3 - 15.5 g/dL | [facility] | | | | | LABORATORY | + + + + + | HCT | 30.4 (L) | 34.0 - 46.0 % | [facility] | | | | | LABORATORY | + + + + + | MCV | 85.3 | 80.0 - 100.0 fl | [facility] | | | | | LABORATORY | + + + + + | MCH | 28.0 | 27.0 - 34.0 pg | [facility] | | | | | LABORATORY | + + + + + | MCHC | 32.8 | 32.0 - 35.5 g/dL | [facility] | | | | | LABORATORY | + + + + + | RDW SD | 41.1 | 37 - 53 fl | [facility] | | | | | LABORATORY | + + + + + | PLT | 169 | 150 - 400 K/uL | [facility] | | | | | LABORATORY | + + + + + | MPV | 10.6Comment: Testing | fl | [facility] | | | performed at [facility], [address] | | LABORATORY | | | [address] [facility], | | | | | [place] [address] | | | + + + + + + + + + + | Performing | Address | City/State/Zipcode | Phone Number | | Organization | | | | + + + + + | [facility] | [address] | [place] [address] | [phone] | | LABORATORY | [address]vd[address] | | | + + + + + Renal function panel (08/08/2018 4:40 AM) + + + + + | Component | Value | Ref Range | Performed At | + + + + + | SODIUM | 143 | 135 - 145 mmol/L | [facility] | | | | | LABORATORY | + + + + + | POTASSIUM | 5.0 (H) | 3.5 - 4.9 mmol/L | [facility] | | | | | LABORATORY | + + + + + | CHLORIDE | 110 (H) | 99 - 109 mmol/L | [facility] | | | | | LABORATORY | + + + + + | CO2 | 24 | 23 - 32 mmol/L | [facility] | | | | | LABORATORY | + + + + + | ANION GAP AGAP | 14 | 5 - 20 mmol/L | [facility] | | | | | LABORATORY | + + + + + | GLUCOSE | 142 (H) | 65 - 99 mg/dL | [facility] | | | | | LABORATORY | + + + + + | BUN | 47 (H) | 8 - 25 mg/dL | [facility] | | | | | LABORATORY | + + + + + | CREATININE | 1.8 (H) | 0.50 - 1.00 mg/dL | [...] 4.4 | 2.3 - 4.8 mg/dL | [facility] | | | | | LABORATORY | + + + + + | EGFR | 29 (L)Comment: GFR <60: | >60 mL/min/1.73m2 | [...] the | | | | | MDRD [facility] traceable | | | | | equation.Testing | | | | | performed at [facility], [address] | | | | | [facility], | | | | | [place] [address] | | | + + + + + + + | Specimen | + + | Blood | + + + + + + + | Performing | Address | City/State/Zipcode | Phone Number | | Organization | | | | + + + + + | [facility] | [address] | [place] [address] | [phone] | | LABORATORY | [address]vd[address] | | | + + + + + POCT glucose (08/07/2018 9:07 PM) + + + + + | Component | Value | Ref Range | Performed At | + + + + + | GLUCOSE,POC SCREEN | 141 (H)Comment: Testing | 65 - 99 mg/dL | [facility] | | | performed at [facility];[address] | | | | [address];[place], [place] | | | | | [address] | | | + + + + + + + + + + | Performing | Address | City/State/Zipcode | Phone Number | | Organization | | | | + + + + + | [facility] | [address] | [place] [address] | | + + + + + POCT glucose (08/07/2018 4:15 PM) + + + + + | Component | Value | Ref Range | Performed At | + + + + + | GLUCOSE,POC SCREEN | 129 (H)Comment: Testing | 65 - 99 mg/dL | [facility] | | | performed at [facility];[address] | | | | | [address];[place] | | | | | [address] | | | + + + + + + + + + + | Performing | Address | City/State/Zipcode | Phone Number | | Organization | | | | + + + + + | [facility] | [address] | [place] [address] | | + + + + + Basic metabolic panel (BMP) (08/07/2018 2:56 PM) + + + + + | Component | Value | Ref Range | Performed At | + + + + + | SODIUM | 144 | 135 - 145 mmol/L | [facility] | + + + + + [...] (H) | 8 - 25 mg/dL | [facility] | + + [...] (L)Comment: GFR <60: | >60 mL/min/1.73m2 | [facility] | | | CHRONIC KIDNEY DISEASE, [...] the | | | | | MDRD [facility] traceable | | | | | equation.Testing | | | | | performed at [facility];[address] | | | | | [address];[place], [place] | | | | | [address] | | | + + + + + + + | Specimen | + + | Blood | + + + + + + + | Performing | Address | City/State/Zipcode | Phone Number | | Organization | | | | + + + + + | [facility] | [address] | [place] [address] | | + + + + + POCT glucose (08/07/2018 11:51 AM) + + + + + | Component | Value | Ref Range | Performed At | + + + + + | GLUCOSE,POC SCREEN | 184 (H)Comment: Testing | 65 - 99 mg/dL | [facility] | | | performed at [facility];[address] | | | | | [address];[place], [place] | | | | | [address] | | | + + + + + + + + + + | Performing | Address | City/State/Zipcode | Phone Number | | Organization | | | | + + + + + | [facility] | [address] | [place] [address] | | + + + + + Protein, urine, random (08/07/2018 9:00 AM) + + + + + | Component | Value | Ref Range | Performed At | + + + + + | UR PROTEIN,RANDOM | 279Comment: NO NORMAL | mg/dL | [facility] | | | RANGE ESTABLISHEDTesting | | LABORATORY | | | performed at [facility], [address] | | | [address], | | | | | [place] [address] | | | + + + + + + + + + + | Performing | Address | City/State/Zipcode | Phone Number | | Organization | | | | + + + + + | [facility] | [address] | [place] [address] | [phone] | | LABORATORY | [address] | | [...] | LABORATORY | | | performed at [facility], [address] | | | | [address] [facility], | | | | | [place] [address] | | | + + + + + + + + + + | Performing | Address | City/State/Zipcode | Phone Number | | Organization | | | | + + + + + | [facility] | [address] [place] [address] | [place] [address] | [phone] | | LABORATORY | [address] | | | + + + + [...] | | | | | performed at [facility], [address] | | | | | [facility], | | | | | [place] [address] | | | + + + + + + + | Specimen | + + | Urine - Urine, | | Unspecified Source | + + + + + + + | Performing | Address | City/State/Zipcode | Phone Number | | Organization | | | | + + + + + | [facility] | [address] | [place] [address] | [phone] | | LABORATORY | [address] | | | + + + + + Protein / creatinine ratio, urine (08/07/2018 9:00 AM) + + + + + | Component | Value | Ref Range | Performed At | + + + + + | UR | 4.982Comment: Testing | | [facility] | | PROTEIN/CREATININE | performed at [facility], [address] | | LABORATORY | | | [facility], | | | | | [place] [address] | | | + + + + + + + | Specimen | + + | Urine - Urine, | | Unspecified Source | + + + + + + + | Performing | Address | City/State/Zipcode | Phone Number | | Organization | | | | + + + + + | [facility] | [address] | [place] [address] | [phone] | | LABORATORY | [address] | | | + + + + + POCT glucose (08/07/2018 5:36 AM) + + + + + | Component | Value | Ref Range | Performed At | + + + + + | GLUCOSE,POC SCREEN | 121 (H)Comment: Testing | 65 - 99 mg/dL | [facility] | | | performed at [facility];[address] | | | | | [address];[place] | | | | | [id number] | | | + + + + + + + + + + | Performing | Address | City/State/Zipcode | Phone Number | | Organization | | | | + + + + + | [facility] | [address] | [place] [address] | | + + + + + Magnesium (08/07/2018 4:41 AM) + + + + + | Component | Value | Ref Range | Performed At | + + + + + | MAGNESIUM | 2.0Comment: Testing | 1.7 - 2.4 mg/dL | [facility] | | | performed at [facility], [address] | | LABORATORY | | | [facility], | | | | | [place] [address] | | | + + + + + + + + + + | Performing | Address | City/State/Zipcode | Phone Number | | Organization | | | | + + + + + | [facility] | [address] [facility] | [place] [address] | [phone] | | LABORATORY | [address] | | | + + + + + CBC w/no Diff (08/07/2018 4:41 AM) + + + + + | Component | Value | Ref Range | Performed At | + + + + + | WBC | 5.64 | 3.80 - 11.00 K/uL | [facility] | | | | | LABORATORY | + + + + + | RBC | 3.32 (L) | 3.70 - 5.10 M/uL | [facility] | | | | | LABORATORY | + + + + + | HGB | 9.3 (L) | 11.3 - 15.5 g/dL | [facility] | | | | | LABORATORY | + + + + + | HCT | 28.2 (L) | 34.0 - 46.0 % | [facility] | | | | | LABORATORY | + + + + + | MCV | 85.2 | 80.0 - 100.0 fl | [facility] | | | | | LABORATORY | + + + + + | MCH | 28.1 | 27.0 - 34.0 pg | [facility] | | | | | LABORATORY | + + + + + | MCHC | 33.0 | 32.0 - 35.5 g/dL | [facility] | | | | | LABORATORY | + + + + + | RDW SD | 41.6 | 37 - 53 fl | [facility] | | | | | LABORATORY | + + + + + | PLT | 146 (L) | 150 - 400 K/uL | [facility] | | | | | LABORATORY | + + + + + | MPV | 10.6Comment: Testing | fl | [facility] | | | performed at [facility], [address] | | LABORATORY | | | [facility], | | | | | [place] [address] | | | + + + + + + + + + + | Performing | Address | City/State/Zipcode | Phone Number | | Organization | | | | + + + + + | [facility] | [address] | [place] [address] | [phone] | | LABORATORY | [address] | | | + + + + + Renal function panel (08/07/2018 4:41 AM) + + + + + | Component | Value | Ref Range | Performed At | + + + + + | SODIUM | 145 | 135 - 145 mmol/L | [facility] | | | | | LABORATORY | + + + + + | POTASSIUM | 5.2 (H) | 3.5 - 4.9 mmol/L | [facility] | | | | | LABORATORY | + + + + + | CHLORIDE | 113 (H) | 99 - 109 mmol/L | [facility] | | | | | LABORATORY | + + + + + | CO2 | 25 | 23 - 32 mmol/L | [facility] | | | | | LABORATORY | + + + + + | ANION GAP AGAP | 12 | 5 - 20 mmol/L | [facility] | | | | | LABORATORY | + + + + + | GLUCOSE | 146 (H) | 65 - 99 mg/dL | [facility] | | | | | LABORATORY | + + + + + | BUN | 51 (H) | 8 - 25 mg/dL | [facility] | | | | | LABORATORY | + + + + + | CREATININE | 1.9 (H) | 0.50 - 1.00 mg/dL | [...] 4.1 | 2.3 - 4.8 mg/dL | [facility] | | | | | LABORATORY | + + + + + | EGFR | 27 (L)Comment: GFR <60: | >60 mL/min/1.73m2 | [...] the | | | | | MDRD IDDC traceable | | | | | equation.Testing | | | | | performed at [facility], [address] | | | | | [facility], | | | | | [place] [address] | | | + + + + + + + | Specimen | + + | Blood | + + + + + + + | Performing | Address | City/State/Zipcode | Phone Number | | Organization | | | | + + + + + | [facility] | [address] | [place] [address] | [phone] | | LABORATORY | [address] | | | + + + + + POCT glucose (08/06/2018 9:02 PM) + + + + + | Component | Value | Ref Range | Performed At | + + + + + | GLUCOSE,POC SCREEN | 158 (H)Comment: Testing | 65 - 99 mg/dL | [facility] | | | performed at [facility];[place], [place] | | | | | [address] | | | + + + + + + + + + + | Performing | Address | City/State/Zipcode | Phone Number | | Organization | | | | + + + + + | [facility] | [address] | [place] [address] | | + + + + + POCT glucose (08/06/2018 4:36 PM) + + + + + | Component | Value | Ref Range | Performed At | + + + + + | GLUCOSE,POC SCREEN | 129 (H)Comment: Testing | 65 - 99 mg/dL | [facility] | | | performed at [facility];[place] | | | | | [address] | | | + + + + + + + + + + | Performing | Address | City/State/Zipcode | Phone Number | | Organization | | | | + + + + + | [facility] | [address] | [facility] [address] | | + + + + + [...] Ines Martin Date of : 1955 | [facility] | | Performing Physician: Brynn Crawford MD [...] 0.60 m/s TV Dec | | | Alpine: 2.33 m/s2 TV Dec Time: 240.52 ms TV E Brock: 0.56 | | | m/s TV E/A Ratio: 0.92 Turner And Former Automatic: GONZALO Authenticated | | | by: Brynn Crawford MD Report Date/Time: -- [id number] | | + + + + + | Procedure Note | + + | Madhu, Darin Results In - 08/06/2018 4:40 PM PST Patient Name: Jl Martin of : | | 1955ccession: [id number] Physician: Brynn Crawford MD | | INDICATIONS [...] (A-L): 40.23 ml/m2LAAs A2C: | | 24.44 hb6MALQN A-L A2C: 74.48 mlLALs A2C: 6.81 cmLAAs A4C: 21.96 le4BSPVY A-L A4C: | | 68.67 mlLALs A4C: 5.96 cmRAAd: 13.73 as0HRLKP A-L: 33.61 mlRAEDV MOD: 31.44 | | mlRALd: 4.76 cmEPSS: 2.39 cmAV maxP.50 mmHgAV meanP.57 mmHgAV Vmax: | | 1.76 m/John Vmean: 1.20 m/John VTI: 39.54 cmAVA Vmax: 2.19 cm2AVA (VTI): 2.37 | | [id number] Vmax: 0.00 cm2/m2AVAI (VTI): 0.00 cm2/m2LVOT maxP.42 [...] 25.31 cmTV A Brock: 0.60 m/sTV Dec Alpine: | | 2.33 m/s2TV Dec Time: 240.52 msTV E Brock: 0.56 m/sTV E/A Ratio: 0.92 Turner And Former Automatic: | | GDAuthenticated by: Brynn Crawford MDReport Date/Time: -- | | [id number]:25IMPRESSION:1. Overall left ventricular systolic function is normal [...] A Brock: 0.60 m/s | |TV Dec Alpine: 2.33 m/s2 | |TV Dec Time: 240.52 ms | |TV E Brock: 0.56 m/s | |TV E/A Ratio: 0.92 | | | |Turner And Former Automatic: GD | |Authenticated by: Brynn Crawford MD | |Report Date/Time: [id number]:25 | | | |IMPRESSION: | |1. Overall [...] + + + + + | [facility] | [address] | [place] [address] | | + + + + + [...] | LABORATORY | | | performed at [facility], [facility] [address] | | | | | [facility], | | | | | [place] [address] | | | + + + + + + + + + + | Performing | Address | City/State/Zipcode | Phone Number | | Organization | | | | + + + + + | [facility] | [address] [place] [address] | [place] [address] | [phone] | | LABORATORY | [address] | | [...] + + + + + | Specific Rhine, UA | 1.013 | 1.002 - 1.030 [...] | [facility] | | | performed at [facility], [address] | | LABORATORY | | | [address], | | | | | [place] [address] | | | + + + + + + + | Specimen | + + | Urine - Urine, Clean | | Catch | + + + + + + + | Performing | Address | City/State/Zipcode | Phone Number | | Organization | | | | + + + + + | [facility] | [address] | [place] [address] | [phone] | | LABORATORY | [address] | | | + + + + + Potassium (08/06/2018 12:01 PM) + + + + + | Component | Value | Ref Range | Performed At | + + + + + | POTASSIUM | 4.8Comment: Testing | 3.5 - 4.9 mmol/L | [facility] | | | performed at [facility];[address] | | | | | [address];[place] | | | | | [address] | | | + + + + + + + | Specimen | + + | Blood | + + + + + + + | Performing | Address | City/State/Zipcode | Phone Number | | Organization | | | | + + + + + | [facility] | [address] | [place] [address] | | + + + + + POCT glucose (08/06/2018 11:35 AM) + + + + + | Component | Value | Ref Range | Performed At | + + + + + | GLUCOSE,POC SCREEN | 237 (H)Comment: Testing | 65 - 99 mg/dL | [facility] | | | performed at [facility];[address] | | | | | [address];[place] | | | | | [address] | | | + + + + + + + + + + | Performing | Address | City/State/Zipcode | Phone Number | | Organization | | | | + + + + + | [facility] | [address] | [place] [address] | | + + + + + [...] VIEWS CLINICAL INFORMATION: Chest pain. COMPARISON: | [facility] | | None FINDINGS: Heart size and mediastinal contours are normal. No | RADIOLOGY | | pneumothorax, no pleural effusion. No acute osseous abnormality. | | | Lungs are clear. | | + + + + + | Procedure Note | + + | Darin Leung Results In - 08/06/2018 11:46 AM PST [...] | + + + + + | [facility] | [address] | [facility] [address] | | + + + + + Phosphorus (08/06/2018 6:05 AM) + + + + + | Component | Value | Ref Range | Performed At | + + + + + | PHOSPHORUS | 4.7Comment: Testing | 2.3 - 4.8 mg/dL | [facility] | | | performed at [facility], [address] | | LABORATORY | | | [facility], | | | | | [place] [address] | | | + + + + + + + | Specimen | + + | Blood | + + + + + + + | Performing | Address | City/State/Zipcode | Phone Number | | Organization | | | | + + + + + | [facility] | [address] | [place] [address] | [phone] | | LABORATORY | [address]vd[address] | | | + + + + + Magnesium (08/06/2018 6:05 AM) + + + + + | Component | Value | Ref Range | Performed At | + + + + + | MAGNESIUM | 2.1Comment: Testing | 1.7 - 2.4 mg/dL | [facility] | | | performed at [facility], [address] | | LABORATORY | | | [facility], | | | | | [place] [address] | | | + + + + + + + | Specimen | + + | Blood | + + + + + + + | Performing | Address | City/State/Zipcode | Phone Number | | Organization | | | | + + + + + | [facility] | [address] | [place] [address] | [phone] | | LABORATORY | [address] | | | + + + + + Basic metabolic panel (08/06/2018 6:05 AM) + + + + + | Component | Value | Ref Range | Performed At | + + + + + | SODIUM | 143 | 135 - 145 mmol/L | [facility] | + + + + + | POTASSIUM | 5.1 (H) | 3.5 - 4.9 mmol/L | [facility] | + + + + + | CHLORIDE | 116 (H) | 99 - 109 mmol/L | [facility] | + + + + + | CO2 | 21 (L) | 23 - 32 mmol/L | [facility] | + + + + + | ANION GAP AGAP | 11 | 5 - 20 mmol/L | [facility] | + + + + + | GLUCOSE | 101 (H) | 65 - 99 mg/dL | [facility] | + + + + + | BUN | 55 (H) | 8 - 25 mg/dL | [facility] | + + + + + | CREATININE | 2.0 (H) | 0.50 - 1.00 mg/dL | [facility] | + + + + + | BUN/CREAT | 27 | | [facility] | + + + + + | CALCIUM | 7.6 (L) | 8.5 - 10.5 mg/dL | [facility] | + + + + + | EGFR | 25 (L)Comment: GFR <60: | >60 mL/min/1.73m2 | [facility] | | | CHRONIC KIDNEY DISEASE, [...] the | | | | | MDRD TNMS traceable | | | | | equation.Testing | | | | | performed at [facility] | | | | | [facility];[place], [place] | | | | | [address] | | | + + + + + + + | Specimen | + + | Blood | + + + + + + + | Performing | Address | City/State/Zipcode | Phone Number | | Organization | | | | + + + + + | [facility] | [address] | [place] [address] | | + + + + + CBC w/no Kiera (08/06/2018 6:05 AM) + + + + + | Component | Value | Ref Range | Performed At | + + + + + | WBC | 5.48 | 3.80 - 11.00 K/uL | [facility] | | | | | LABORATORY | + + + + + | RBC | 3.30 (L) | 3.70 - 5.10 M/uL | [facility] | | | | | LABORATORY | + + + + + | HGB | 9.3 (L) | 11.3 - 15.5 g/dL | [facility] | | | | | LABORATORY | + + + + + | HCT | 28.2 (L) | 34.0 - 46.0 % | [facility] | | | | | LABORATORY | + + + + + | MCV | 85.7 | 80.0 - 100.0 fl | [facility] | | | | | LABORATORY | + + + + + | MCH | 28.4 | 27.0 - 34.0 pg | [facility] | | | | | LABORATORY | + + + + + | MCHC | 33.1 | 32.0 - 35.5 g/dL | [facility] | | | | | LABORATORY | + + + + + | RDW SD | 42.9 | 37 - 53 fl | [facility] | | | | | LABORATORY | + + + + + | PLT | 153 | 150 - 400 K/uL | [facility] | | | | | LABORATORY | + + + + + | MPV | 10.4Comment: Testing | fl | [facility] | | | performed at [facility], [address] | | LABORATORY | | | [facility], | | | | | [place] [address] | | | + + + + + + + + + + | Performing | Address | City/State/Zipcode | Phone Number | | Organization | | | | + + + + + | [facility] | [address] | [place] [address] | [phone] | | LABORATORY | [address] | | | + + + + + Glycohemoglobin A1c (08/06/2018 6:05 AM) + + + + + | Component | Value | Ref Range | Performed At | + + + + + | HEMOGLOBIN A1C | 6.4 (H)Comment: The | 4.0 - 6.0 % | [facility] | | | Portuguese Diabetes | | LABORATORY | | | [...] 137Comment: The ADA | <154 mg/dL | [facility] | | GLUCOSE | considers [...] | | | | | performed at [facility], [address] | | | | | [facility], | | | | | [place] [address] | | | + + + + + + + | Specimen | + + | Blood | + + + + + + + | Performing | Address | City/State/Zipcode | Phone Number | | Organization | | | | + + + + + | [facility] | [address] | [place] [address] | [phone] | | LABORATORY | [place] | | | + + + + + POCT glucose (08/06/2018 5:42 AM) + + + + + | Component | Value | Ref Range | Performed At | + + + + + | GLUCOSE,POC SCREEN | 117 (H)Comment: Testing | 65 - 99 mg/dL | [facility] | | | performed at [facility] | | | | | [address];[place] | | | | | [address] | | | + + + + + + + + + + | Performing | Address | City/State/Zipcode | Phone Number | | Organization | | | | + + + + + | [facility] | [address] | [place] [address] | | + + + + + Potassium (08/06/2018 12:36 AM) + + + + + | Component | Value | Ref Range | Performed At | + + + + + | POTASSIUM | 5.5 (H)Comment: Testing | 3.5 - 4.9 mmol/L | [facility] | | | performed at [facility] | | | | | [facility];[place], [place] | | | | | [address] | | | + + + + + + + | Specimen | + + | Blood | + + + + + + + | Performing | Address | City/State/Zipcode | Phone Number | | Organization | | | | + + + + + | [facility] | [address] | [place] [address] | | + + + + + POCT glucose (08/05/2018 9:09 PM) + + + + + | Component | Value | Ref Range | Performed At | + + + + + | GLUCOSE,POC SCREEN | 167 (H)Comment: Testing | 65 - 99 mg/dL | [facility] | | | performed at [facility];[address] | | | | | [facility];[place] | | | | | [address] | | | + + + + + + + + + + | Performing | Address | City/State/Zipcode | Phone Number | | Organization | | | | + + + + + | [facility] | [address] | [facility] [place] [address] | | + + + + + Potassium (08/05/2018 6:40 PM) + + + + + | Component | Value | Ref Range | Performed At | + + + + + | POTASSIUM | 6.2 (H)Comment: SLT | 3.5 - 4.9 mmol/L | [facility] | | | HEMOLYSISTesting | | | | | performed at [facility] | | | | | [address];[place] | | | | | [address] | | | + + + + + + + | Specimen | + + | Blood | + + + + + + + | Performing | Address | City/State/Zipcode | Phone Number | | Organization | | | | + + + + + | [facility] | [address] | [place] [address] | | + + + + + [...] + + | Madhu, Rad Results In 08/06/2018 9:13 AM PST ULTRASOUND KIDNEYS AND [...] | + + + + + | [facility] | [address] | [place] [address] | | + + + + + CBC w/auto diff (reflex to manual) (08/05/2018 11:00 AM) + + + + + | Component | Value | Ref Range | Performed At | + + + + + | WBC | 5.91 | 3.80 - 11.00 K/uL | [facility] | + + + + + | RBC | 3.67 (L) | 3.70 - 5.10 M/uL | [facility] | + + + + + | HGB | 10.2 (L) | 11.3 - 15.5 g/dL | [facility] | + + + + + | HCT | 31.1 (L) | 34.0 - 46.0 % | [facility] | + + + + + | MCV | 84.8 | 80.0 - 100.0 fl | [facility] | + + + + + | MCH | 27.8 | 27.0 - 34.0 pg | [facility] | + + + + + | MCHC | 32.8 | 32.0 - 35.5 g/dL | [facility] | + + + + + | RDW SD | 42.0 | 37 - 53 fl | [facility] | + + + + + | PLT | 182 | 150 - 400 K/uL | [facility] | + + + + + | MPV | 10.3 | fl | [facility] | + + + + + | DIFF TYPE | AUTOMATED | | [facility] | + + + + + | NEUTROPHILS | 56.22 | % | [facility] | + + + + + | LYMPHOCYTES | 29.46 | % | [facility] | + + + + + | MONOCYTES | 8.51 | % | [facility] | + + + [...] 0.29 | 0.00 - 0.50 K/uL | [facility] | + + + + + | BASOPHILS ABS | 0.06Comment: Testing | 0.00 - 0.10 K/uL | [facility] | | | performed at [facility] | | | | | [address];[place], [place] | | | | | [address] | | | + + + + + + + | Specimen | + + | Blood | + + + + + + + | Performing | Address | City/State/Zipcode | Phone Number | | Organization | | | | + + + + + | [facility] | [address] | [place] [address] | | + + + + + Basic metabolic panel (08/05/2018 11:00 AM) + + + + + | Component | Value | Ref Range | Performed At | + + + + + | SODIUM | 142 | 135 - 145 mmol/L | [facility] | + + + + + | POTASSIUM | 5.8 (H) | 3.5 - 4.9 mmol/L | [facility] | + + + + + | CHLORIDE | 112 (H) | 99 - 109 mmol/L | [facility] | + + + + + | CO2 | 19 (L) | 23 - 32 mmol/L | [facility] | + + + + + | ANION GAP AGAP | 17 | 5 - 20 mmol/L | [facility] | + + + + + | GLUCOSE | 111 (H) | 65 - 99 mg/dL | [facility] | + + + + + | BUN | 64 (H) | 8 - 25 mg/dL | [facility] | + + + + + | CREATININE | 2.6 (H) | 0.50 - 1.00 mg/dL | [facility] | + + + + + | BUN/CREAT | 25 | | [facility] | + + + + + | CALCIUM | 8.1 (L) | 8.5 - 10.5 mg/dL | [facility] | + + + + + | EGFR | 19 (L)Comment: GFR <60: | >60 mL/min/1.73m2 | [facility] | | | CHRONIC KIDNEY DISEASE, [...] the | | | | | MDRD TNMS traceable | | | | | equation.Testing | | | | | performed at [facility] | | | | | [facility];[place] | | | | | [address] | | | + + + + + + + | Specimen | + + | Blood | + + + + + + + | Performing | Address | City/State/Zipcode | Phone Number | | Organization | | | | + + + + + | [facility] | [address] | [place] [address] | | + + + + + in this encounter Visit Diagnoses + + | Diagnosis | + + | Acute renal failure superimposed on stage 4 chronic kidney disease (HCC) - Primary | + + | CAD in mechoopda artery | + + | Coronary atherosclerosis of mechoopda coronary artery | + + | Congestive heart failure, unspecified HF chronicity, unspecified heart failure type | | (HCC) | + + | Precordial pain | + + | Ischemic cardiomyopathy | + + | Other specified forms of chronic ischemic heart disease | + + | Hyperkalemia | + + | Hyperpotassemia | + + | Essential hypertension | + + | Unspecified essential hypertension | + + | Type 2 diabetes mellitus with complication, with long-term current use of insulin | | (HCC) | + + | Non-ischemic cardiomyopathy (HCC) | + + | Other primary cardiomyopathies | + + Admitting Diagnoses + + | Diagnosis | + + | Precordial pain | + + | Ischemic cardiomyopathy | + + | Other specified forms of chronic ischemic heart disease | + + | CAD in mechoopda artery | + + | Coronary atherosclerosis of mechoopda coronary artery | + + | Congestive heart failure, unspecified HF chronicity, unspecified heart failure type | | (HCC) | + + Administered Medications + +--------+ +--------+------+------+ | Medication Order | MAR | Action | Dose | Rate | Site | | | Action | Date | | | | + +--------+ +--------+------+------+ | acetaminophen (TYLENOL) tablet | Given | | 650 mg | | | | 650 mg 650 mg, Oral, Every 6 | | 9 09:57 | | | | | Hours PRN, Mild Pain (1-3), | | PST | | | | | Fever, Headaches, or pain 4-7, | | | | | | | Starting [facility] 08/07/18 at 0911 | | | | | | + +--------+ +--------+------+------+ +-------+ +--------+---+---+ | Given | | 650 mg | | | | | 9 06:00 | | | | | | PST | | | | +-------+ +--------+---+---+ | Given | | 650 mg | | | | | 9 18:33 | | | | | | PST | | | | +-------+ +--------+---+---+ + +---+ | | | + +---+ | albuterol (PROVENTIL) nebulizer | | | solution 2.5 mg 2.5 mg, | | | Nebulization, Every 4 Hours PRN, | | | Wheezing, Shortness of Breath, | | | Starting [facility] 08/05/18 at 1808 | | + +---+ | | | + +---+ + +-------+ +------+---+---+ | amLODIPine (NORVASC) tablet 5 | Given | | 5 mg | | | | mg 5 mg, Oral, Daily, First dose | | 9 20:55 | | | | | on Sat08/06/18 at 2000 | | PST | | | | + +-------+ +------+---+---+ +-------+ +------+---+---+ | Given | | 5 mg | | | | | 9 08:55 | | | | | | PST | | | | +-------+ +------+---+---+ +---+---+ | | | +---+---+ + +-------+ +--------+---+---+ | amLODIPine (NORVASC) tablet 7.5 | Given | | 7.5 mg | | | | mg 7.5 mg, Oral, Daily, First | | 9 10:44 | | | | | dose on Sat08/08/18 at 0930 | | PST | | | | + +-------+ +--------+---+---+ +-------+ +--------+---+---+ | Given | | 7.5 mg | | | | | 9 12:13 | | | | | | PST | | | | +-------+ +--------+---+---+ +---+---+ | | | +---+---+ + +-------+ +--------+---+---+ | ascorbic acid (VITAMIN C) | Given | | 500 mg | | | | tablet 500 mg 500 mg, Oral, | | 9 21:23 | | | | | Daily, First dose on 08/09/18 | | PST | | | | | at 1830 | | | | | | + +-------+ +--------+---+---+ +-------+ +--------+---+---+ | Given | | 500 mg | | | | | 9 08:17 | | | | | | PST | | | | +-------+ +--------+---+---+ | Given | | 500 mg | | | | | 9 08:25 | | | | | | PST | | | | +-------+ +--------+---+---+ +---+---+ | | | +---+---+ + +-------+ +-------+---+---+ | aspirin EC tablet 81 mg 81 mg, | Given | | 81 mg | | | | Oral, Daily With Breakfast, | | 9 12:14 | | | | | First dose on 08/06/18 at 0800 | | PST | | | | + +-------+ +-------+---+---+ +-------+ +-------+---+---+ | Given | | 81 mg | | | | | 9 08:17 | | | | | | PST | | | | +-------+ +-------+---+---+ | Given | | 81 mg | | | | | 9 08:25 | | | | | | PST | | | | +-------+ +-------+---+---+ +---+---+ | | | +---+---+ + +-------+ +-------+---+---+ | atorvastatin (LIPITOR) tablet | Given | | 10 mg | | | | 10 mg 10 mg, Oral, Nightly, | | 9 21:06 | | | | | First dose on Sat08/05/18 at 2200 | | PST | | | | + +-------+ +-------+---+---+ +-------+ +-------+---+---+ | Given | | 10 mg | | | | | 9 21:24 | | | | | | PST | | | | +-------+ +-------+---+---+ | Given | | 10 mg | | | | | 9 21:11 | | | | | | PST | | | | +-------+ +-------+---+---+ +---+---+ | | | +---+---+ + +---------+ + +-------+---+ | calcium gluconate 1,000 mg in | New Bag | | 1,000 mg | 100 | | | dextrose 5 % 100 mL IVPB 1,000 | | 9 20:22 | | mL/hr | | | mg (1 g), Intravenous, Administer | | PST | | | | | over 60 Minutes, Once, Tue | | | | | | | 08/05/18 at 1830, For 1 dose | | | | | | + +---------+ + +-------+---+ +---+---+ | | | +---+---+ + +-------+ + +---+---+ | carvedilol (COREG) tablet 3.125 | Given | | 3.125 mg | | | | mg 3.125 mg, Oral, 2 Times | | 9 08:20 | | | | | Daily With Meals, First dose on | | PST | | | | | 08/08/18 at 1700 | | | | | | + +-------+ + +---+---+ +-------+ + +---+---+ | Given | | 3.125 mg | | | | | 9 16:10 | | | | | | PST | | | | +-------+ + +---+---+ | Given | | 3.125 mg | | | | | 9 08:25 | | | | | | PST | | | | +-------+ + +---+---+ +---+---+ | | | +---+---+ + +-------+ +--------+---+---+ | cholecalciferol (VITAMIN D-3) | Given | | 2,000 | | | | tablet 2,000 Units 2,000 Units, | | 9 08:17 | Units | | | | Oral, Daily, First dose on Sun | | PST | | | | | 08/10/18 at 0900 | | | | | | + +-------+ +--------+---+---+ +-------+ +--------+---+---+ | Given | | 2,000 | | | | | 9 08:25 | Units | | | | | PST | | | | +-------+ +--------+---+---+ + +---+ | | | + +---+ | dextrose 10 % infusion at | | | 0-100 mL/hr, Intravenous, | | | Continuous PRN, Hypoglycemia, | | | Starting 08/05/18 at 1818, For | | | BG 70 or less run infusion at | | | 100 mL/ hr. Discontinue when BG | | | increases to 100 mg/dl or greater | | | x 2-3 hours and patient is | | | eating. Call provider if BG not | | | maintained after 2-3 hours. | | + +---+ | | | + +---+ | dextrose 50 % solution 12 mL | | | 12 mL, Intravenous, PRN, | | | Hypoglycemia (BG < 70 mg/dL), | | | Starting 08/05/18 at 1818 | | + +---+ | | | + +---+ | dextrose 50 % solution 25 mL | | | 25 mL, Intravenous, PRN, | | | Hypoglycemia (BG < 70 mg/dL), | | | Starting 08/05/18 at 1818 | | + +---+ | | | + +---+ + +-------+ +-------+---+---+ | enoxaparin (LOVENOX) injection | Given | | 30 mg | | | | 30 mg 30 mg, Subcutaneous, | | 9 12:16 | | | | | Daily, First dose on Sat08/08/18 | | PST | | | | | at 0900 | | | | | | + +-------+ +-------+---+---+ +-------+ +-------+---+---+ | Given | | 30 mg | | | | | 9 08:22 | | | | | | PST | | | | +-------+ +-------+---+---+ | Given | | 30 mg | | | | | 9 08:26 | | | | | | PST | | | | +-------+ +-------+---+---+ + +---+ | | | + +---+ | fentaNYL (SUBLIMAZE) injection | | | 50 mcg 50 mcg, Intravenous, PRN, | | | Moderate Pain (4-6), Starting | | | 08/08/18 at 1609, | | | Intra-procedure (CATH/IR) | | + +---+ | | | + +---+ + +-------+ + +---+---+ | ferrous sulfate (65 FE) tablet | Given | | 65 mg of | | | | 65 mg of iron 65 mg of iron, | | 9 08:20 | iron | | | | Oral, Daily With Breakfast, First | | PST | | | | | dose on 08/10/18 at 0800 | | | | | | + +-------+ + +---+---+ +-------+ + +---+---+ | Given | | 65 mg of | | | | | 9 08:25 | iron | | | | | PST | | | | +-------+ + +---+---+ + +---+ | | | + +---+ | glucagon (GLUCAGEN) injection | | | 0.5 mg 0.5 mg, Intramuscular, | | | PRN, Hypoglycemia, (BG < 70 | | | mg/dL), Starting 08/05/18 at | | | 1818 | | + +---+ | | | + +---+ | glucagon (GLUCAGEN) injection 1 | | | mg 1 mg, Intramuscular, PRN, | | | Hypoglycemia, (BG < 70 mg/dL), | | | Starting 08/05/18 at 1818 | | + +---+ | | | + +---+ + +-------+ +--------+---+---+ | heparin (porcine) 1000 UNIT/ML | Given | | 3,000 | | | | injection Once PRN, Starting Fri | | 9 17:56 | Units | | | | 08/08/18 at 1756, Intra-procedure | | PST | | | | | (CATH/IR) | | | | | | + +-------+ +--------+---+---+ +---+---+ | | | +---+---+ + +-------+ +-------+---+---+ | hydrALAZINE (APRESOLINE) tablet | Given | | 25 mg | | | | 25 mg 25 mg, Oral, 3 Times | | 9 14:40 | | | | | Daily, First dose on Sat08/06/18 | | PST | | | | | at 1430 | | | | | | + +-------+ +-------+---+---+ +---+---+ | | | +---+---+ + +-------+ +-------+---+---+ | hydrALAZINE (APRESOLINE) tablet | Given | | 50 mg | | | | 50 mg 50 mg, Oral, 3 Times | | 9 14:07 | | | | | Daily, First dose on Sat08/06/18 | | PST | | | | | at 2200 | | | | | | + +-------+ +-------+---+---+ +-------+ +-------+---+---+ | Given | | 50 mg | | | | | 9 21:53 | | | | | | PST | | | | +-------+ +-------+---+---+ | Given | | 50 mg | | | | | 9 06:01 | | | | | | PST | | | | +-------+ +-------+---+---+ +---+---+ | | | +---+---+ + +-------+ +-------+---+---+ | hydrALAZINE (APRESOLINE) tablet | Given | | 75 mg | | | | 75 mg 75 mg, Oral, 3 Times | | 9 16:09 | | | | | Daily, First dose on Sat08/08/18 | | PST | | | | | at 1400 | | | | | | + +-------+ +-------+---+---+ +-------+ +-------+---+---+ | Given | | 75 mg | | | | | 9 22:03 | | | | | | PST | | | | +-------+ +-------+---+---+ | Given | | 75 mg | | | | | 9 05:27 | | | | | | PST | | | | +-------+ +-------+---+---+ +---+---+ | | | +---+---+ + +-------+ +-------+---+---+ | hydrochlorothiazide | Given | | 25 mg | | | | (HYDRODIURIL) tablet 25 mg 25 | | 9 10:42 | | | | | mg, Oral, Daily, First dose on | | PST | | | | | Mago 08/07/18 at 0900 | | | | | | + +-------+ +-------+---+---+ +-------+ +-------+---+---+ | Given | | 25 mg | | | | | 9 12:13 | | | | | | PST | | | | +-------+ +-------+---+---+ | Given | | 25 mg | | | | | 9 08:17 | | | | | | PST | | | | +-------+ +-------+---+---+ +---+---+ | | | +---+---+ + +-------+ +-------+---+---+ | hydrOXYzine (ATARAX) tablet 10 | Given | | 10 mg | | | | mg 10 mg, Oral, 3 Times Daily | | 9 12:15 | | | | | PRN, Muscle spasms, anxiety, | | PST | | | | | Starting 08/05/18 at 1837 | | | | | | + +-------+ +-------+---+---+ +-------+ +-------+---+---+ | Given | | 10 mg | | | | | 9 22:27 | | | | | | PST | | | | +-------+ +-------+---+---+ +---+---+ | | | +---+---+ + +-------+ + +---+---+ | insulin glargine (LANTUS) | Given | | 10 Units | | | | injection 10 Units 10 Units, | | 9 21:01 | | | | | Subcutaneous, Nightly, First dose | | PST | | | | | on 08/05/18 at 2200 | | | | | | + +-------+ + +---+---+ +-------+ + +---+---+ | Given | | 10 Units | | | | | 9 21:26 | | | | | | PST | | | | +-------+ + +---+---+ | Given | | 10 Units | | | | | 9 21:12 | | | | | | PST | | | | +-------+ + +---+---+ +---+---+ | | | +---+---+ + +-------+ +---------+---+---+ | insulin lispro (human) | Given | | 2 Units | | | | (HUMALOG) injection 0-10 Units | | 9 16:17 | | | | | 0-10 Units, Subcutaneous, 3 Times | | PST | | | | | Daily Before Meals, First dose | | | | | | | on Sat08/06/18 at 0630 | | | | | | + +-------+ +---------+---+---+ +-------+ +---------+---+---+ | Given | | 1 Units | | | | | 9 05:28 | | | | | | PST | | | | +-------+ +---------+---+---+ | Given | | 2 Units | | | | | 9 12:07 | | | | | | PST | | | | +-------+ +---------+---+---+ +---+---+ | | | +---+---+ + +-------+ +---------+---+---+ | insulin lispro (human) | Given | | 0 Units | | | | (HUMALOG) injection 0-5 Units | | 9 21:26 | | | | | 0-5 Units, Subcutaneous, Nightly, | | PST | | | | | First dose on Sat08/05/18 at | | | | | | | 2200 | | | | | | + +-------+ +---------+---+---+ +---+---+ | | | +---+---+ + +-------+ +--------+---+---+ | iopamidol (ISOVUE-300) 300 | Given | | 20 mLs | | | | mg/mL injection 20 mL 20 mL, | | 9 17:50 | | | | | Intracoronary, Img Once PRN, | | PST | | | | | Other, Starting Sat08/08/18 at | | | | | | | 1813, For 1 dose | | | | | | + +-------+ +--------+---+---+ +---+---+ | | | +---+---+ + +-------+ +--------+---+---+ | lidocaine 1 % injection Once | Given | | 10 mLs | | | | PRN, During PCI per physician, | | 9 17:55 | | | | | Starting Sat08/08/18 at 1755, | | PST | | | | | Intra-procedure (CATH/IR) | | | | | | + +-------+ +--------+---+---+ +---+---+ | | | +---+---+ + +-------+ +--------+---+---+ | LORazepam (ATIVAN) tablet 0.5 | Given | | 0.5 mg | | | | mg 0.5 mg, Oral, 3 Times Daily | | 9 08:38 | | | | | PRN, Anxiety, Starting Wed | | PST | | | | | 08/06/18 at 1350 | | | | | | + +-------+ +--------+---+---+ +-------+ +--------+---+---+ | Given | | 0.5 mg | | | | | 9 16:09 | | | | | | PST | | | | +-------+ +--------+---+---+ | Given | | 0.5 mg | | | | | 9 08:31 | | | | | | PST | | | | +-------+ +--------+---+---+ +---+---+ | | | +---+---+ + +-------+ +-------+---+---+ | losartan (COZAAR) tablet 25 mg | Given | | 25 mg | | | | 25 mg, Oral, Daily, First dose | | 9 21:23 | | | | | on 08/09/18 at 1830 | | PST | | | | + +-------+ +-------+---+---+ +---+---+ | | | +---+---+ + +-------+ +------+---+---+ | melatonin tablet 3 mg 3 mg, | Given | | 3 mg | | | | Oral, Nightly PRN, Sleep, | | 9 20:23 | | | | | Starting 08/05/18 at 1837 | | PST | | | | + +-------+ +------+---+---+ +-------+ +------+---+---+ | Given | | 3 mg | | | | | 9 20:58 | | | | | | PST | | | | +-------+ +------+---+---+ | Given | | 3 mg | | | | | 9 23:10 | | | | | | PST | | | | +-------+ +------+---+---+ + +---+ | | | + +---+ | midazolam (VERSED) injection 1 | | | mg 1 mg, Intravenous, PRN, | | | Anxiety, Starting 08/08/18 at | | | 1609, Intra-procedure (CATH/IR) | | + +---+ | | | + +---+ + +-------+ +---------+---+---+ | nitroGLYCERIN 100 mcg/mL | Given | | 200 mcg | | | | (TRIDIL) injection Once PRN, | | 9 17:55 | | | | | Starting 08/08/18 at 1755, | | PST | | | | | Intra-procedure (CATH/IR) | | | | | | + +-------+ +---------+---+---+ +---+---+ | | | +---+---+ + +-------+ +-------+---+---+ | simethicone (MYLICON) chewable | Given | | 80 mg | | | | tablet 80 mg 80 mg, Oral, Every | | 9 00:42 | | | | | 6 Hours Scheduled (4 times per | | PST | | | | | day), First dose on 08/10/18 | | | | | | | at 0000, For 2 doses | | | | | | + +-------+ +-------+---+---+ +-------+ +-------+---+---+ | Given | | 80 mg | | | | | 9 06:02 | | | | | | PST | | | | +-------+ +-------+---+---+ +---+---+ | | | +---+---+ + +---------+ + + +---+ | sodium bicarbonate 150 mEq in | New Bag | | 75 mL/hr | 75 mL/hr | | | sterile water 1,000 mL infusion | | 9 09:08 | | | | | 75 mL/hr, Intravenous, at 75 | | PST | | | | | mL/hr, Continuous, Starting Wed | | | | | | | 08/06/18 at 0800, For 13 hours | | | | | | + +---------+ + + +---+ +---+---+ | | | +---+---+ + +---------+ +---+-------+---+ | sodium chloride 0.9 % infusion | New Bag | | | 110 | | | at 110 mL/hr, Intravenous, | | 9 20:23 | | mL/hr | | | Continuous, Starting 08/05/18 | | PST | | | | | at 1100, Pre-op | | | | | | + +---------+ +---+-------+---+ +---------+ +---+-------+---+ | New Bag | | | 110 | | | | 9 05:41 | | mL/hr | | | | PST | | | | +---------+ +---+-------+---+ +---+---+ | | | +---+---+ + +-------+ +------+---+---+ | sodium polystyrene sulfonate | Given | | 30 g | | | | (KAYEXALATE) 15 GM/60ML | | 9 18:27 | | | | | suspension 30 g 30 g, Oral, | | PST | | | | | Once, [facility] 08/05/18 at 1830, For 1 | | | | | | | dose | | | | | | + +-------+ +------+---+---+ +---+---+ | | | +---+---+ + +-------+ +-------+---+---+ | traMADol (ULTRAM) tablet 50 mg | Given | | 50 mg | | | | 50 mg, Oral, Every 6 Hours PRN, | | 9 08:22 | | | | | Moderate Pain (4-6), Severe Pain | | PST | | | | | (7-10), Starting [facility] 08/07/18 at | | | | | | | 1100 | | | | | | + +-------+ +-------+---+---+ +-------+ +-------+---+---+ | Given | | 50 mg | | | | | 9 16:09 | | | | | | PST | | | | +-------+ +-------+---+---+ | Given | | 50 mg | | | | | 9 12:58 | | | | | | PST | | | | +-------+ +-------+---+---+ +---+---+ | | | +---+---+ + +-------+ +-------+---+---+ | traZODone (DESYREL) tablet 50 | Given | | 50 mg | | | | mg 50 mg, Oral, Nightly, First | | 9 21:01 | | | | | dose on 08/08/18 at 2200 | | PST | | | | + +-------+ +-------+---+---+ +-------+ +-------+---+---+ | Given | | 50 mg | | | | | 9 21:24 | | | | | | PST | | | | +-------+ +-------+---+---+ | Given | | 50 mg | | | | | 9 21:11 | | | | | | PST | | | | +-------+ +-------+---+---+ +---+---+ | | | +---+---+ + +-------+ +------+---+---+ | verapamil (ISOPTIN) injection | Given | | 1 mg | | | | Once PRN, Starting 08/08/18 at | | 9 17:56 | | | | | 1756, Intra-procedure (CATH/IR) | | PST | | | | + +-------+ +------+---+---+ +---+---+ | | | +---+---+ in this encounter
--- OUTSIDE RECORDS SUMMARY | ~2018-10-01 | XMS | Clinical Summary ---
Demographics + + + | Address | [address] | | | [place] [address] | + + + | Home Phone [...] [address] | | | | | [address] | | + + + + + Care Team Providers + +------+ + | Care Overlay Operator Name | Role | Phone | + +------+ + PP | Unavailable | + +------+ + Source Comments [facility] is fully live [facility] both [facility] and [facility] Allergies Not on [...]
--- OUTSIDE RECORDS SUMMARY | ~2018-10-01 | XMS | Encounter Summary ---
Demographics + + + | Address | [address] | | | [place] [address] | + + + | Home Phone [...] + | Sachin Dwyer | ECON | [address] | | | | | [place] | | + + + + + | Sachin Dwyer | ELVIRA | Unknown | | + + + + + Care Team Providers + +------+ + | Care Wad Blanking Press Adjuster Name | Role | Phone | + +------+ + | Bernadette Armendariz PA-C | BBEE | | + +------+ + Reason for [...] | Congestive | Серг[place] | [address] | | | | | heart | MD Don | [place], | | | | | failure, | [address] | [place] | | | | | unspecified | [place] | [address] | | | | | HF | [place], [place] | Phone: | | | | | chronicity, | [address] | [phone] | | | | | unspecified | Phone: | Fax: | | | | | heart | [phone] | [phone] | | | | | failure type | Fax: | | | | | | (HCC) | [phone] | | | | | | Coronary [...] | | | | | | | [place] or | | | | | | | transplanted | | | | | | | heart | | | | | | | Procedures | | | | | | | ECHO | | | | | | | Complete [place] | | | | | | | ECHO HEART | | | | | | | XTHORACIC,[place] | | | | | | | MPLETE W | | | | | | | DOPPLER [place] | | | | | | | [...] [address] | | | | [address] [place], | [address] [place] | | | | | [place] [address] | [place] [address] | | | | | [phone] | [phone] | | | | | | | [...] W | | | | | | [address] [place] | | | | | | [place] [address] | | | | | | [phone] | | | | | | | [...] unspecified whether | | | | | [place] or | | | | | transplanted heart | | + +--------+ + + as of this encounter Visit Diagnoses + + | Diagnosis | + + | Congestive heart failure, unspecified HF chronicity, unspecified heart failure type | | (HCC) - Primary | + + | Coronary artery disease, angina presence unspecified, unspecified vessel or lesion | | type, unspecified whether [place] or transplanted heart | + +"
--- OUTSIDE RECORDS SUMMARY | ~2018-10-01 | XMS | Encounter Summary ---
Demographics + + + | Address | [address] | | | [place] [address] | + + + | Home Phone | | + + + | Preferred Language | Unknown | + + + | Marital Status | Unknown | + + + | Gnosticist Affiliation | Unknown | + + + | Race | Unknown | + + + | Ethnic Group | Unknown | + + + Author + + + | Author | [facility] | + + + | Organization | [facility] | + + + | Address | Unknown | + + + | Phone | Unavailable | + + + Support + + +---------+ + | Name | Relationship | Address | Phone | + + +---------+ + | Sachin Dwyer | ECON | Unknown | | + + +---------+ + Care Team Providers + +------+ + | Care Digital Learning Platforms Manager Name | Role | Phone | [...] | | | Cardiology | UP | [address], | [place], [place] | | | | | | [place] [address] | [address] Phone: | | | | | | Phone: | [phone] | | | | | | [phone] | Fax: | | | | | | Fax: | [phone] | | | | | | [phone] | | +--------+--------+ + + + + Encounter Details +--------+---------+ + + + | Date | Type | Department | Care Team | Description | +--------+---------+ + + + | 08/21/ | Office | [facility] | Brynn Crawford MD | Non-ischemic | | 2019 | Visit | [facility] [place] | [address] | cardiomyopathy (HCC) | | | | [address] | [place] [address] | (Primary Dx); | | | | [facility] | [phone] | Essential | | | | [address] | | hypertension | | | | [phone] | | | +--------+---------+ + + + [...] Mild mitral regurgitation is present. Scores: 1. [id number] Score: 4 2. [place] Anginal Score: 2 3. NYHA Score: 2-3 [...] She was followed by Dr. Gaitan at [facility] in the Nephrology Service. It should be [...] | | | | | | [address] [place], [place] | | | | | | [address] | | | | | | | | +--------+---------+ + + + as of this encounter Visit Diagnoses + + | Diagnosis | + + | Non-ischemic cardiomyopathy (HCC) - Primary | + + | Other primary cardiomyopathies | + + | Essential hypertension | + + | Unspecified essential hypertension | + +
--- OUTSIDE RECORDS SUMMARY | ~2018-10-01 | XMS | Encounter Summary ---
Demographics + + + | Address | [address] | | | [place] [address] | + + + | Home Phone | | + + + | Preferred Language | Unknown | + + + | Marital Status | Unknown | + + + | Shinto Affiliation | Unknown | + + + | Race | Unknown | + + + | Ethnic Group | Unknown | + + + Author + + + | Author | [facility] [employer] [facility] | + + + | Organization | [facility] | + + + | Address | Unknown | + + + | Phone | Unavailable | + + + Support + + +---------+ + | Name | Relationship | Address | Phone | + + +---------+ + | Sachin Dwyer | ECON | Unknown | | + + +---------+ + Care Team Providers + +------+ + | Care Internist Name | Role | Phone | + [...] [place] | | | | | | [address] | | | | | | [phone] | | | +--------+ + + + [...] | | | | | | [address] [place], [place] | | | | | | [id number] | | | | | | | [...]
--- OUTSIDE RECORDS SUMMARY | ~2018-10-01 | XMS | Encounter Summary ---
Demographics + + + | Address | [address] | | | [place] [address] | + + + | Home Phone | | + + + | Preferred Language | Unknown | + + + | Marital Status | Unknown | + + + | Mu-Ism Affiliation | Unknown | + + + | Race | Unknown | + + + | Ethnic Group | Unknown | + + + Author + + + | Author | [facility] | + + + | Organization | [facility] | + + + | Address | Unknown | + + + | Phone | Unavailable | + + + Support + + +---------+ + | Name | Relationship | Address | Phone | + + +---------+ + | Sachin Dwyer | ECON | Unknown | | + + +---------+ + Care Team Providers + +------+ + | Care Chief Marketing Officer Name | Role | Phone | [...] [place] | | | | | | [address] | | | | | | [phone] | | | +--------+ + + + [...] [place] | | | | | | [id number] | | | | | | | | +--------+---------+ + + + as of this encounter Visit Diagnoses Not on filein this encounter"
--- OUTSIDE RECORDS SUMMARY | ~2018-10-01 | XMS | Encounter Summary ---
Demographics + + + | Address | [address] | | | [place] [address] | + + + | Home Phone | | + + + | Preferred Language | Unknown | + + + | Marital Status | Unknown | + + + | Uatsdin Affiliation | Unknown | + + + | Race | Unknown | + + + | Ethnic Group | Unknown | + + + Author + + + | Author | [facility] | + + + | Organization | [facility] | + + + | Address | Unknown | + + + | Phone | Unavailable | + + + Support + + +---------+ + | Name | Relationship | Address | Phone | + + +---------+ + | Sachin Dwyer | ECON | Unknown | | + + +---------+ + Care Team Providers + +------+ + | Care Protection Chief Industrial Plant Name | Role | Phone | + +------+ + | ManoloMaribel | PCP | | + +------+ + Encounter Details +--------+ + + + + | Date | Type | Department | Care Team | Description | +--------+ + + + + | 08/08/ | Procedure | [facility] | | | | 2018 | Pass | [address] | | | | | | [facility] | | | | | | [address] [facility] | | | | | | [place] [address] | | | | | | [phone] | | | +--------+ + + + [...] | | | | | | [address] [place] | | | | | | [address] | | | | | | | | +--------+---------+ + + + as of this encounter Visit Diagnoses Not on filein this encounter"
--- OUTSIDE RECORDS SUMMARY | ~2018-10-01 | XMS | Encounter Summary ---
Demographics + + + | Address | [address] | | | [place] [address] | + + + | Home Phone | | + + + | Preferred Language | Unknown | + + + | Marital Status | Unknown | + + + | Confucianist Affiliation | Unknown | + + + | Race | Unknown | + + + | Ethnic Group | Unknown | + + + Author + + + | Author | [employer] [employer] [facility] | + + + | Organization | [facility] [facility] | + + + | Address | Unknown | + + + | Phone | Unavailable | + + + Support + + +---------+ + | Name | Relationship | Address | Phone | + + +---------+ + | Sachin Dwyer | ECON | Unknown | | + + +---------+ + Care Team Providers + +------+ + | Care Back Roller Name | Role | Phone | + [...] | | | | | | | squaxin | | | | | | | [...] | | | | | | | ([facility]) | | | | | | | [...] + + | 08/05/ | Hospital | [facility] | Brynn Crawford MD | CAD in squaxin | | 2019 - | Encounter | [facility] | [address] | artery; Congestive | | | | Floor [facility] | [place] [address] | heart failure, | | 08/11/ | | [address] | [phone] | unspecified HF | | 2019 | | [place] [address] | | chronicity, | | | | [phone] | Kimberly Owens DO | unspecified heart | | | | | [address] | failure type ([facility]); | | | | | [place] [address] | Precordial pain; | | | | | [phone] | Ischemic | | | | | | cardiomyopathy | | | | | Gustavo Castorena MD | | | | | | [address] | | | | | | [place] [address] | | | | | | [phone] | | | | | | | | | | | | 1, [facility] [employer] | | +--------+ + + + + [...] note may be different from the original. [facility] Service: Hospitalist Physician Discharge Summary Patient [...] jets are not visualized. Signed by: Gregorio Aflaro Sign Date/Time: 08/06/2018 9:09 AM Echo Cardiac [...] input(s): ABG Disposition: HOME Follow up: [facility] [address] [facility] [address] James Pearce MD [facility] [place] [address] [address] Schedule an appointment as soon as possible [...] Care Everywhere.Carvedilol tablets (Englis h)Hyperkalemia, Discharge Instructions (Nepali)in this encounter Medications at Time of Discharge [...] different from t remedios original. PCP : [facility] LOS: 5 days Maria Ines Martin [...] was completed later after rounds. Dictation software, TinyTap, was used which may contain error for [...] high potassium foods and provided list from [facility]. Discussed th at she does not need to limit at this time with ARF and WNL K+ but may need to in the future . Provided low sodium handout from [facility] and discussed. Pt reports that she is discharging tod ay. Will follow per protocol. Teena Encinas, MS, Shin Pride MD - 08/10/2018 12:09 PM PSTFormatting of this note may be different from the original. PCP : [facility] LOS: 4 days Maria Ines Martin [...] was completed later after rounds. Dictation software, TinyTap, was used which may contain error for [...] note may be different from the original. [facility] Service: Hospitalist Progress Note Hospital Day: LOS: 4 days SUBJECTIVE Still c/o back pain. 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 Disposition: Home ? Code Status: Full Code Gustavo Castorena MD 08/10/2018 9:57 AM Shin Rivera MD - 08/09/2018 5:48 PM PSTFormatting of this note may be different from t remedios original. PCP : [facility] LOS: 3 days Maria Ines Martin [...] outpatient follow up with Dr. Pearce in [place]. Strict low K diet. Diet 2 gm [...] was completed later after rounds. Dictation software, TinyTap, was used which may contain error for [...] note may be different from the original. [facility] Service: Hospitalist Progress Note Hospital Day: [...] = EF 60-65 %, mod LVH Dr Carwford following for recs BP is better now [...] and management as well as Computerized Physician Stress Test Technician. Disposition: Home ? Code Status: Full Code Gustavo Castorena MD 08/09/2018 2:16 PM Brynn Crawford MD - 08/08/2018 4:42 PM PSTFormatting of this note may be different from the original. [facility] Service: Cardiology/[facility] Progress Note RE: Maria Ines [...] Mild mitral regurgitation is present. Scores: 1. [id number] Score: 3 2. Montserratian Anginal Score: 3 3. NYHA Score: 2 [...] note may be different from nilda king. [facility] Service: Hospitalist Progress Note Hospital Day: [...] LIST Principal Problem: GRACIELA (acute kidney injury) ([facility]) Active Problems: Ischemic cardiomyopathy Chronic systolic heart failure (HCC) Hyperkalemia Essential hypertension Type 2 diabetes mellitus with complication, with long-term current use of insulin ([facility]) ASSESSMENT / PLAN Heart failure reduced [...] and management as well as Computerized Physician Stress Test Technician. Disposition: Home ? Code Status: Full Code Gustavo Castorena MD 08/08/2018 2:53 PM Shin Rivera MD - 08/08/2018 11:26 AM PSTFormatting of this note may be different from t remedios original. PCP : [facility] LOS: 2 days Maria Ines Martin [...] was completed later after rounds. Dictation software, TinyTap, was used which may contain error for similar sounding words nabor n after review. Personal communication is requested for any clarification. Prognosis is guarded in view of multiple comorbid illnesses and acute on chronic renal fail ure including but not limited to potential need for HEMATOLOGY NURSE EDUCATOR and . amLODIPine 7.5 mg Oral Daily [...] note may be different from the original. [facility] Service: Hospitalist Progress Note Hospital Day: [...] and management as well as Computerized Physician Stress Test Technician. Disposition: Home ? Code Status: Full Code Gustavo Castorena MD 08/07/2018 10:50 AM Brynn Crawford MD - 08/07/2018 8:47 AM PSTFormatting of this note may be different from the original. [facility] Service: [facility] Progress Note RE: Maria Ines [...] Mild mitral regurgitation is present. Scores: 1. [id number] Score: 2. Montserratian Anginal Score: 3. NYHA Score: ASSESSMENT: 1. [...] her [facility] better ejection fraction than what it was reported previously at [facility]. Regardless with her history of chest [...] note may be different from nilda king. [facility] Service: Hospitalist Progress Note Hospital Day: [...] and management as well as Computerized Physician Stress Test Technician. Disposition: Home ? 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 Pt went ov er her hx of [...] any concerns for dysphag ia consider ordering DIRECTOR PHYSICAL eval. Anthropometrics Weight change Pt's BMI is 34 and pt is 166% of IBW. Pt reports she has gained wt over the p ast 4 months after stopping meth. Biochemical data, medical tests, and procedures reviewed Biochemical data, medical tests, and procedures reviewed Labs reviewed. Recommendations Recommended energy needs Continue diet as ordered with modications per DIRECTOR PHYSICAL, if needed. Enco urage po intake as tolerated. Monitor and follow as indicated. Nutritional Risk Nutritional risk Low Follow up date 08/13/18 YANG Khan Iyad, MD - 08/06/2018 8:51 AM PSTFormatting of this note may be different from the original. [facility] Service: Cardiology/[facility] Progress Note RE: Maria Ines [...] prolonged QRS Imaging Chest X-Ray: Scores: 1. [id number] Score: 2. Montserratian Anginal Score: 3. NYHA Score: ASSESSMENT: 1. [...] was seen by Dr. Vic Gaitan in [facility] for evaluation. An echoca rdiogram was obtained [...] cant ST or T-wave abnormalities. Scores: 1. [id number] Score: 4 2. Montserratian Anginal Score: 2 3. NYHA Score: 2-3 [...] | | | | | | [address] [place], [place] | | | | | | [...] Testing | 65 - 99 mg/dL | [facility] | | | performed at [facility];[address] | | | | | [facility], [place] | | | | | [address] | | | + + + + + + + + + + | Performing | Address | City/State/Zipcode | Phone Number | | Organization | | | | + + + + + | [facility] | [address] | [place] [address] | | + + + + + POCT glucose (08/11/2018 5:23 AM) + + + + + | Component | Value | Ref Range | Performed At | + + + + + | GLUCOSE,POC SCREEN | 133 (H)Comment: Testing | 65 - 99 mg/dL | [facility] | | | performed at [facility];[address] | | | | | [address];[place] | | | | | [address] | | | + + + + + + + + + + | Performing | Address | City/State/Zipcode | Phone Number | | Organization | | | | + + + + + | [facility] | [address] | [place] [address] | | + + + + + [...] (L)Comment: GFR <60: | >60 mL/min/1.73m2 | [facility] | | | CHRONIC KIDNEY DISEASE, | [...] | | | | | performed at [facility], [address] | | | | | [facility], | | | | | [place] [address] | | | + + + + + + + | Specimen | + + | Blood | + + + + + + + | Performing | Address | City/State/Zipcode | Phone Number | | Organization | | | | + + + + + | [facility] | [address] | [place] [address] | [phone] | | LABORATORY | [address] | | | + + + + + POCT glucose (08/10/2018 9:06 PM) + + + + + | Component | Value | Ref Range | Performed At | + + + + + | GLUCOSE,POC SCREEN | 157 (H)Comment: Testing | 65 - 99 mg/dL | [facility] | | | performed at [facility];[address] | | | | | [address];[place] | | | | | [address] | | | + + + + + + + + + + | Performing | Address | City/State/Zipcode | Phone Number | | Organization | | | | + + + + + | [facility] | [address] | [place] [address] | | + + + + + POCT glucose (08/10/2018 4:16 PM) + + + + + | Component | Value | Ref Range | Performed At | + + + + + | GLUCOSE,POC SCREEN | 181 (H)Comment: Testing | 65 - 99 mg/dL | [facility] | | | performed at [facility];[address] | | | | | [address];[place], [place] | | | | | [address] | | | + + + + + + + + + + | Performing | Address | City/State/Zipcode | Phone Number | | Organization | | | | + + + + + | [facility] | [address] | [place] [address] | | + + + + + [...] | + + + + + | [facility] | [address] | [facility] [address] | | + + + + + POCT glucose (08/10/2018 12:00 PM) + + + + + | Component | Value | Ref Range | Performed At | + + + + + | GLUCOSE,POC SCREEN | 186 (H)Comment: Testing | 65 - 99 mg/dL | [facility] | | | performed at [facility];[address] | | | | [address];[place] | | | | | [address] | | | + + + + + + + + + + | Performing | Address | City/State/Zipcode | Phone Number | | Organization | | | | + + + + + | [facility] | [address] | [place] [address] | | + + + + + POCT glucose (08/10/2018 5:30 AM) + + + + + | Component | Value | Ref Range | Performed At | + + + + + | GLUCOSE,POC SCREEN | 160 (H)Comment: Testing | 65 - 99 mg/dL | [facility] | | | performed at [facility];[address] | | | | | [address];[place] | | | | | [address] | | | + + + + + + + + + + | Performing | Address | City/State/Zipcode | Phone Number | | Organization | | | | + + + + + | [facility] | [address] | [place] [address] | | + + + + + [...] (L) | 8.5 - 10.5 mg/dL | [facility] | | | | | LABORATORY | + + + + + | Albumin | 2.1 (L) | 3.3 - 4.8 g/dL | [facility] | | | | | LABORATORY | + + + + + | PHOSPHORUS | 4.7 | 2.3 - 4.8 mg/dL | [facility] | | | | | LABORATORY | + + + + + | EGFR | 22 (L)Comment: GFR <60: | >60 mL/min/1.73m2 | [facility] | | | CHRONIC KIDNEY DISEASE, | [...] | | | | | performed at [facility], [address] | | | | | [facility], | | | | | [place] [address] | | | + + + + + + + + + + | Performing | Address | City/State/Zipcode | Phone Number | | Organization | | | | + + + + + | [facility] | [address] | [place] [address] | [phone] | | LABORATORY | [address] | | [...] | [facility] | | | performed at [facility], [address] | | LABORATORY | | | [facility], | | | | | [place] [address] | | | + + + + + + + + + + | Performing | Address | City/State/Zipcode | Phone Number | | Organization | | | | + + + + + | [facility] | [address] [place] [address] | [place] [address] | [phone] | | LABORATORY | [address]. | | | + + + + + POCT glucose (08/09/2018 9:09 PM) + + + + + | Component | Value | Ref Range | Performed At | + + + + + | GLUCOSE,POC SCREEN | 194 (H)Comment: Testing | 65 - 99 mg/dL | [facility] | | | performed at [facility];[address] | | | | | [address];[place] | | | | | [address] | | | + + + + + + + + + + | Performing | Address | City/State/Zipcode | Phone Number | | Organization | | | | + + + + + | [facility] | [address] | [place] [address] | | + + + + + POCT glucose (08/09/2018 4:13 PM) + + + + + | Component | Value | Ref Range | Performed At | + + + + + | GLUCOSE,POC SCREEN | 127 (H)Comment: Testing | 65 - 99 mg/dL | [facility] | | | performed at [facility];[address] | | | | | [address];[place] | | | | | [address] | | | + + + + + + + + + + | Performing | Address | City/State/Zipcode | Phone Number | | Organization | | | | + + + + + | [facility] | [address] | [place] [address] | | + + + + + POCT glucose (08/09/2018 11:48 AM) + + + + + | Component | Value | Ref Range | Performed At | + + + + + | GLUCOSE,POC SCREEN | 110 (H)Comment: Testing | 65 - 99 mg/dL | [facility] | | | performed at [facility];[address] | | | | | [address];[place] | | | | | [address] | | | + + + + + + + + + + | Performing | Address | City/State/Zipcode | Phone Number | | Organization | | | | + + + + + | [facility] | [address] | [place] [address] | | + + + + + Magnesium (08/09/2018 5:22 AM) + + + + + | Component | Value | Ref Range | Performed At | + + + + + | MAGNESIUM | 2.1Comment: Testing | 1.7 - 2.4 mg/dL | [facility] | | | performed at [facility], [address] | | LABORATORY | | | [address], | | | | | [place] [address] | | | + + + + + + + + + + | Performing | Address | City/State/Zipcode | Phone Number | | Organization | | | | + + + + + | [facility] | [address] | [place] [address] | [phone] | | LABORATORY | [address] | | [...] | [facility] | | | performed at [facility], [address] | | LABORATORY | | | [address], | | | | | [place] [address] | | | + + + + + + + + + + | Performing | Address | City/State/Zipcode | Phone Number | | Organization | | | | + + + + + | [facility] | [address] | [place] [address] | [phone] | | LABORATORY | [address] | | [...] (L) | 8.5 - 10.5 mg/dL | [facility] | | | | | LABORATORY [...] the | | | | | [facility] traceable | | | | | equation.Testing | | | | | performed at [facility], [address] | | | | | [facility], | | | | | [place] [address] | | | + + + + + + + | Specimen | + + | Blood | + + + + + + + | Performing | Address | City/State/Zipcode | Phone Number | | Organization | | | | + + + + + | [facility] | [address] | [place] [address] | [phone] | | LABORATORY | [address] | | | + + + + + POCT glucose (08/09/2018 5:08 AM) + + + + + | Component | Value | Ref Range | Performed At | + + + + + | GLUCOSE,POC SCREEN | 133 (H)Comment: Testing | 65 - 99 mg/dL | [facility] | | | performed at [facility];[address] | | | | | [address];[place] | | | | | [address] | | | + + + + + + + + + + | Performing | Address | City/State/Zipcode | Phone Number | | Organization | | | | + + + + + | [facility] | [address] | [place] [address] | | + + + + + POCT glucose (08/08/2018 8:57 PM) + + + + + | Component | Value | Ref Range | Performed At | + + + + + | GLUCOSE,POC SCREEN | 158 (H)Comment: Testing | 65 - 99 mg/dL | [facility] | | | performed at [facility];[address] | | | | | [address];[place] | | | | | [address] | | | + + + + + + + + + + | Performing | Address | City/State/Zipcode | Phone Number | | Organization | | | | + + + + + | [facility] | [address] | [place] [address] | | + + + + + CL left heart cath with coronary angio (08/08/2018 6:10 PM) + + + | Narrative | Performed At | + + + | | [facility] | | | RADIOLOGY | | [...] radial artery and a | | | 6-Equatorial Guinean sheath was placed. The JL-3.5 catheter was [...] right radial artery and a | | 6-[place]atorial [place] sheath was placed. The JL-3.5 catheter was [...] + + | Performing | Address | City/State/[facility] | Phone Number | | Organization | | | | + + + + + | [facility] | [address] | [place] [address] | | + + + + + POCT glucose (08/08/2018 4:31 PM) + + + + + | Component | Value | Ref Range | Performed At | + + + + + | GLUCOSE,POC SCREEN | 180 (H)Comment: Testing | 65 - 99 mg/dL | [facility] | | | performed at [facility];[address] | | | | | [address];[place] | | | | | [address] | | | + + + + + + + + + + | Performing | Address | City/State/Zipcode | Phone Number | | Organization | | | | + + + + + | [facility] | [address] | [place] [address] | | + + + + + CONCETTA and LINA REFLEXIVE (08/08/2018 12:12 PM) + + + + + | Component | Value | Ref Range | Performed At | + + + + + | CONCETTA | NegativeComment: | | [facility] | | | Reference range: | | | | | NegativeTesting | | | | | performed at [facility], [address] | | | | | [address] | | | | | [place] [address] | | | + + + + + | CYTOPLASMIC (C ANCA) | <1:20Comment: Reference | titer | [facility] | | | range: Neg:<1:20 | | | + + + + + | PERINUCLEAR (P ANCA) | <1:20Comment: Reference | titer | [facility] | | | range: Neg:<1:20 [...] with | | | | | both LA-3 and MPO-ANCA | | | | | [...] ANCA | 1:640 (H)Comment: | titer | [facility] | | | Reference range: [...] AB | <9.0Comment: Reference | U/mL | [facility] | | | range: 0.0 to 9.0 | | | + + + + + | ANTI PROTEINASE 3 | <3.5Comment: Reference | U/mL | [facility] | | | range: 0.0 to 3.5Testing | | | | | performed by [facility], | | | | | [address] [facility], | | | | | [facility] [address] | | | + + + + + + + | Specimen | + + | Blood | + + + + + + + | Performing | Address | City/State/Zipcode | Phone Number | | Organization | | | | + + + + + | [facility] | [address] | [place] [address] | | + + + + + Lactate dehydrogenase (08/08/2018 12:12 PM) + + + + + | Component | Value | Ref Range | Performed At | + + + + + | LDH | 255 (H)Comment: Testing | 115 - 225 U/L | [facility] | | | performed at [facility], [address] | | LABORATORY | | | [address], | | | | | [place] [address] | | | + + + + + + + | Specimen | + + | Blood | + + + + + + + | Performing | Address | City/State/Zipcode | Phone Number | | Organization | | | | + + + + + | [facility] | [address] | [place] [address] | [phone] | | LABORATORY | [address] | | [...] performed | | | | | at [facility], [address] | | | | | [address] [place], | | | | | [place] [address] | | | + + + + + + + | Specimen | + + | Blood | + + + + + + + | Performing | Address | City/State/Zipcode | Phone Number | | Organization | | | | + + + + + | [facility] | [address] | [place] [address] | [phone] | | LABORATORY | [address] | | [...] performed | | | | | at [facility], [address] | | | | | [facility], | | | | | [place] [address] | | | + + + + + + + | Specimen | + + | Blood | + + + + + + + | Performing | Address | City/State/Zipcode | Phone Number | | Organization | | | | + + + + + | [facility] | [address] | [place] [address] | [phone] | | LABORATORY | [address] | | [...] | [facility] | | | performed at [facility], [address] | | LABORATORY | | | [address], | | | | | [place] [address] | | | + + + + + + + | Specimen | + + | Blood | + + + + + + + | Performing | Address | City/State/Zipcode | Phone Number | | Organization | | | | + + + + + | [facility] | [address] | [place] [address] | [phone] | | LABORATORY | [address] | | | + + + + + Ferritin (08/08/2018 12:12 PM) + + + + + | Component | Value | Ref Range | Performed At | + + + + + | FERRITIN | 66Comment: Testing | 6 - 170 ng/mL | [facility] | | | performed at [facility], [address] | | LABORATORY | | | [facility] [address], | | | | | [place] [address] | | | + + + + + + + | Specimen | + + | Blood | + + + + + + + | Performing | Address | City/State/Zipcode | Phone Number | | Organization | | | | + + + + + | [facility] | [address] | [place] [address] | [phone] | | LABORATORY | [address] | | [...] performed at | | | | | [facility], [address] [place] [address] | | | | | [place] | | | | | [address] | | | + + + + + + + + + + | Performing | Address | City/State/Zipcode | Phone Number | | Organization | | | | + + + + + | [facility] | [address] | [place] [address] | [phone] | | LABORATORY | [address] | | [...] | [facility] | | | performed at [facility], [address] | | LABORATORY | | | [address], | | | | | [place] [address] | | | + + + + + + + + + + | Performing | Address | City/State/Zipcode | Phone Number | | Organization | | | | + + + + + | [facility] | [address] | [place] [address] | [phone] | | LABORATORY | [address] | | | + + + + + FIORELLA/ NERY SORENSON (08/08/2018 12:12 PM) + + + + + | Component | Value | Ref Range | Performed At | + + + + + | KAPPA [facility] | 96.5 (H)Comment: | mg/L | [facility] | | | Reference range: 3.3 to | | | | | 19.4 | | | + + + + + | LAMBDA [facility] | 64.3 (H)Comment: | mg/L | [facility] | | | Reference range: 5.7 to | | | | | 26.3 | | | + + + + + | KAPPA/LAMBDA [facility] | 1.50Comment: Reference | | [facility] | | RATIO | range: 0.26 to | | | | | 1.65Testing performed at | | | | | [facility], [address] | | | | | [place] | | | | | [place] [address] | | | + + + + + + + + + + | Performing | Address | City/State/Zipcode | Phone Number | | Organization | | | | + + + + + | [facility] | [address] | [place] [address] | | + + + + + Immunofixation,Serum (08/08/2018 12:12 PM) + + + + + | Component | Value | Ref Range | Performed At | + + + + + | Immunofixation | (See Below)Comment: No | | [facility] | | Result, Serum | monoclonality | | | | | detected.Testing | | | | | performed at [facility], [address] | | | | | [facility] | | | | | [place] [address] | | | + + + + + | IgG | 1,100Comment: Reference | mg/dL | [facility] | | | range: 700 to 1600 | | | + + + + + | IGA | 163Comment: Reference | mg/dL | [facility] | | | range: 87 to 352 | | | + + + + + | IGM | 69Comment: Reference | mg/dL | [facility] | | | range: 26 to 217Testing | | | | | performed at [facility], | | | | | [address], [address], | | | | | [place] [address] | | | + + + + + + + | Specimen | + + | Blood | + + + + + + + | Performing | Address | City/State/Zipcode | Phone Number | | Organization | | | | + + + + + | [facility] | [address] | [place] [address] | | + + + + + Uric acid (08/08/2018 12:12 PM) + + + + + | Component | Value | Ref Range | Performed At | + + + + + | URIC ACID | 6.6Comment: Testing | 2.2 - 7.1 mg/dL | [facility] | | | performed at [facility], [address] | | LABORATORY | | | [facility], | | | | | [place] [address] | | | + + + + + + + | Specimen | + + | Blood | + + + + + + + | Performing | Address | City/State/Zipcode | Phone Number | | Organization | | | | + + + + + | [facility] | [address] | [place] [address] | [phone] | | LABORATORY | [address]. | | | + + + + + POCT glucose (08/08/2018 12:03 PM) + + + + + | Component | Value | Ref Range | Performed At | + + + + + | GLUCOSE,POC SCREEN | 165 (H)Comment: Testing | 65 - 99 mg/dL | [facility] | | | performed at [facility];[address] | | | | | [facility];[place] | | | | | [address] | | | + + + + + + + + + + | Performing | Address | City/State/Zipcode | Phone Number | | Organization | | | | + + + + + | [facility] | [address] | [place] [address] | | + + + + + POCT glucose (08/08/2018 5:53 AM) + + + + + | Component | Value | Ref Range | Performed At | + + + + + | GLUCOSE,POC SCREEN | 183 (H)Comment: Testing | 65 - 99 mg/dL | [facility] | | | performed at [facility];[address] | | | | | [address];[place] | | | | | [address] | | | + + + + + + + + + + | Performing | Address | City/State/Zipcode | Phone Number | | Organization | | | | + + + + + | [facility] | [address] | [place] [address] | | + + + + + Magnesium (08/08/2018 4:40 AM) + + + + + | Component | Value | Ref Range | Performed At | + + + + + | MAGNESIUM | 1.9Comment: Testing | 1.7 - 2.4 mg/dL | [facility] | | | performed at [facility], [address] | | LABORATORY | | | [address], | | | | | [place] [address] | | | + + + + + + + + + + | Performing | Address | City/State/Zipcode | Phone Number | | Organization | | | | + + + + + | [facility] | [address] | [place] [address] | [phone] | | LABORATORY | [address]vd. | | [...] | [facility] | | | performed at [facility], [address] | | LABORATORY | | | [address] [facility], | | | | | [place] [address] | | | + + + + + + + + + + | Performing | Address | City/State/Zipcode | Phone Number | | Organization | | | | + + + + + | [facility] | [address] | [place] [address] | [phone] | | LABORATORY | Blvd. | | [...] the | | | | | MDRD IDOK traceable | | | | | equation.Testing | | | | | performed at [facility], [address] | | | | | [facility], | | | | | [place] [address] | | | + + + + + + + | Specimen | + + | Blood | + + + + + + + | Performing | Address | City/State/Zipcode | Phone Number | | Organization | | | | + + + + + | [facility] | [address] | [place] [address] | [phone] | | LABORATORY | [address]vd. | | | + + + + + POCT glucose (08/07/2018 9:07 PM) + + + + + | Component | Value | Ref Range | Performed At | + + + + + | GLUCOSE,POC SCREEN | 141 (H)Comment: Testing | 65 - 99 mg/dL | [facility] | | | performed at [facility];[address] | | | | | [address];[place], [place] | | | | | [address] | | | + + + + + + + + + + | Performing | Address | City/State/Zipcode | Phone Number | | Organization | | | | + + + + + | [facility] | [address] | [place] [address] | | + + + + + POCT glucose (08/07/2018 4:15 PM) + + + + + | Component | Value | Ref Range | Performed At | + + + + + | GLUCOSE,POC SCREEN | 129 (H)Comment: Testing | 65 - 99 mg/dL | [facility] | | | performed at [facility];[address] | | | | | [address];[place] | | | | | [address] | | | + + + + + + + + + + | Performing | Address | City/State/Zipcode | Phone Number | | Organization | | | | + + + + + | [facility] | [address] | [place] [address] | | + + + + + Basic metabolic panel (BMP) (08/07/2018 2:56 PM) + + + + + | Component | Value | Ref Range | Performed At | + + + + + | SODIUM | 144 | 135 - 145 mmol/L | [facility] | + + + + + [...] (L)Comment: GFR <60: | >60 mL/min/1.73m2 | [facility] | | | CHRONIC KIDNEY [...] the | | | | | MDRD [facility] traceable | | | | | equation.Testing | | | | | performed at [facility];[address] | | | | | [address];[place], [place] | | | | | [address] | | | + + + + + + + | Specimen | + + | Blood | + + + + + + + | Performing | Address | City/State/Zipcode | Phone Number | | Organization | | | | + + + + + | [facility] | [address] | [place] [address] | | + + + + + POCT glucose (08/07/2018 11:51 AM) + + + + + | Component | Value | Ref Range | Performed At | + + + + + | GLUCOSE,POC SCREEN | 184 (H)Comment: Testing | 65 - 99 mg/dL | [facility] | | | performed at [facility];[address] | | | | | [address];[place], [place] | | | | | [address] | | | + + + + + + + + + + | Performing | Address | City/State/Zipcode | Phone Number | | Organization | | | | + + + + + | [facility] | [address] | [place] [address] | | + + + + + Protein, urine, random (08/07/2018 9:00 AM) + + + + + | Component | Value | Ref Range | Performed At | + + + + + | UR PROTEIN,RANDOM | 279Comment: NO NORMAL | mg/dL | [facility] | | | RANGE ESTABLISHEDTesting | | LABORATORY | | | performed at [facility], [address] | | | | [address], | | | | | [place] [address] | | | + + + + + + + + + + | Performing | Address | City/State/Zipcode | Phone Number | | Organization | | | | + + + + + | [facility] | [address] | [place] [address] | [phone] | | LABORATORY | Blvd. | | [...] | LABORATORY | | | performed at [facility], [address] | | | | | [address] [facility], | | | | | [place] [address] | | | + + + + + + + + + + | Performing | Address | City/State/Zipcode | Phone Number | | Organization | | | | + + + + + | [facility] | [address] [place] [address] | [place] [address] | [phone] | | LABORATORY | [address] | | [...] | | | | | performed at [facility], [address] | | | | | [facility], | | | | | [place] [address] | | | + + + + + + + | Specimen | + + | Urine - Urine, | | Unspecified Source | + + + + + + + | Performing | Address | City/State/Zipcode | Phone Number | | Organization | | | | + + + + + | [facility] | [address] | [place] [address] | [phone] | | LABORATORY | [address]vd[address] | | | + + + + + Protein / creatinine ratio, urine (08/07/2018 9:00 AM) + + + + + | Component | Value | Ref Range | Performed At | + + + + + | UR | 4.982Comment: Testing | | [facility] | | PROTEIN/CREATININE | performed at [facility], [address] | | LABORATORY | | | [facility], | | | | | [place] [address] | | | + + + + + + + | Specimen | + + | Urine - Urine, | | Unspecified Source | + + + + + + + | Performing | Address | City/State/Zipcode | Phone Number | | Organization | | | | + + + + + | [facility] | [address] | [place] [address] | [phone] | | LABORATORY | [address] | | | + + + + + POCT glucose (08/07/2018 5:36 AM) + + + + + | Component | Value | Ref Range | Performed At | + + + + + | GLUCOSE,POC SCREEN | 121 (H)Comment: Testing | 65 - 99 mg/dL | [facility] | | | performed at [facility];[address] | | | | | [address];[place] | | | | | [address] | | | + + + + + + + + + + | Performing | Address | City/State/Zipcode | Phone Number | | Organization | | | | + + + + + | [facility] | [address] | [place] [address] | | + + + + + Magnesium (08/07/2018 4:41 AM) + + + + + | Component | Value | Ref Range | Performed At | + + + + + | MAGNESIUM | 2.0Comment: Testing | 1.7 - 2.4 mg/dL | [facility] | | | performed at [facility], [address] | | LABORATORY | | | [address] [facility], | | | | | [place] [address] | | | + + + + + + + + + + | Performing | Address | City/State/Zipcode | Phone Number | | Organization | | | | + + + + + | [facility] | [address] | [place] [address] | [phone] | | LABORATORY | [address]vd. | | [...] | [facility] | | | performed at [facility], [address] | | LABORATORY | | | [facility], | | | | | [place] [address] | | | + + + + + + + + + + | Performing | Address | City/State/Zipcode | Phone Number | | Organization | | | | + + + + + | [facility] | [address] | [place] [address] | [phone] | | LABORATORY | Blvd. | | [...] the | | | | | MDRD IDOK traceable | | | | | equation.Testing | | | | | performed at [facility], [address] | | | | | [facility], | | | | | [place] [address] | | | + + + + + + + | Specimen | + + | Blood | + + + + + + + | Performing | Address | City/State/Zipcode | Phone Number | | Organization | | | | + + + + + | [facility] | [address] | [place] [address] | [phone] | | LABORATORY | [address]vd[address] | | | + + + + + POCT glucose (08/06/2018 9:02 PM) + + + + + | Component | Value | Ref Range | Performed At | + + + + + | GLUCOSE,POC SCREEN | 158 (H)Comment: Testing | 65 - 99 mg/dL | [facility] | | | performed at [facility];[address] | | | | [address];[place], [place] | | | | | [address] | | | + + + + + + + + + + | Performing | Address | City/State/Zipcode | Phone Number | | Organization | | | | + + + + + | [facility] | [address] | [place] [address] | | + + + + + POCT glucose (08/06/2018 4:36 PM) + + + + + | Component | Value | Ref Range | Performed At | + + + + + | GLUCOSE,POC SCREEN | 129 (H)Comment: Testing | 65 - 99 mg/dL | [facility] | | | performed at [facility];[address] | | | | | [address];[place] | | | | | [address] | | | + + + + + + + + + + | Performing | Address | City/State/Zipcode | Phone Number | | Organization | | | | + + + + + | [facility] | [address] | [facility] [address] | | + + + + + [...] Ines Martin Date of : 1955 | [facility] | | Performing Physician: Brynn Crawford [...] 0.60 m/s TV Dec | | | [place]: 2.33 m/s2 TV Dec Time: 240.52 ms TV E Brock: 0.56 | | | m/s TV E/A Ratio: 0.92 Box Machine Operator: GONZALO Authenticated | | | by: Brynn Crawford MD Report Date/Time: -- [id number]:25 | | + + + + + | Procedure Note | + + | Madhu, Dairn Results In - 08/06/2018 4:40 PM PST Patient Name: Jl Martin of : | | 1955ccession: [id number] Physician: Brynn Crawford MD | | INDICATIONS [...] (A-L): 40.23 ml/m2LAAs A2C: | | 24.44 [id number] A-L A2C: 74.48 mlLALs A2C: 6.81 cmLAAs A4C: 21.96 [id number] A-L A4C: | | 68.67 mlLALs A4C: 5.96 cmRAAd: 13.73 [id number] A-L: 33.61 mlRAEDV MOD: 31.44 | | mlRALd: 4.76 cmEPSS: 2.39 cmAV maxP.50 mmHgAV meanP.57 mmHgAV Vmax: | | 1.76 m/John Vmean: 1.20 m/John VTI: 39.54 cmAVA Vmax: 2.19 cm2AVA (VTI): 2.37 | | nv7UROL Vmax: 0.00 cm2/m2AVAI (VTI): 0.00 cm2/m2LVOT maxP.42 [...] 25.31 cmTV A Brock: 0.60 m/sTV Dec [place]: | | 2.33 m/s2TV Dec Time: 240.52 msTV E Brock: 0.56 m/sTV E/A Ratio: 0.92 Box Machine Operator: | | GDAuthenticated by: Brynn Crawford MDReport Date/Time: -- | | [id number]:58:25IMPRESSION:1. Overall left ventricular systolic function is normal [...] A Brock: 0.60 m/s | |TV Dec [place]: 2.33 m/s2 | |TV Dec Time: 240.52 ms | |TV E Brock: 0.56 m/s | |TV E/A Ratio: 0.92 | | | |Box Machine Operator: GD | |Authenticated by: Brynn Crawford MD | |Report Date/Time: [id number]:25 | | | |IMPRESSION: | |1. Overall [...] + + + + + | [facility] | [address] | [place] [address] | | + + + + + [...] | LABORATORY | | | performed at [facility], [facility] [address] | | | | | [facility], | | | | | [place] [address] | | | + + + + + + + + + + | Performing | Address | City/State/Zipcode | Phone Number | | Organization | | | | + + + + + | [facility] | [address] [place] [address] | [place] [address] | [phone] | | LABORATORY | [address]vd. | | [...] + + + + + | Specific [place], UA | 1.013 | 1.002 - 1.030 [...] | [facility] | | | performed at [facility], [address] | | LABORATORY | | | [address], | | | | | [place] [address] | | | + + + + + + + | Specimen | + + | Urine - Urine, Clean | | Catch | + + + + + + + | Performing | Address | City/State/Zipcode | Phone Number | | Organization | | | | + + + + + | [facility] | [address] | [place] [address] | [phone] | | LABORATORY | [address]vd[address] | | | + + + + + Potassium (08/06/2018 12:01 PM) + + + + + | Component | Value | Ref Range | Performed At | + + + + + | POTASSIUM | 4.8Comment: Testing | 3.5 - 4.9 mmol/L | [facility] | | | performed at [facility];[address] | | | | | [address];[place] | | | | | [address] | | | + + + + + + + | Specimen | + + | Blood | + + + + + + + | Performing | Address | City/State/Zipcode | Phone Number | | Organization | | | | + + + + + | [facility] | [address] | [place] [address] | | + + + + + POCT glucose (08/06/2018 11:35 AM) + + + + + | Component | Value | Ref Range | Performed At | + + + + + | GLUCOSE,POC SCREEN | 237 (H)Comment: Testing | 65 - 99 mg/dL | [facility] | | | performed at [facility];[address] | | | | | [address];[place] | | | | | [address] | | | + + + + + + + + + + | Performing | Address | City/State/Zipcode | Phone Number | | Organization | | | | + + + + + | [facility] | [address] | [place] [address] | | + + + + + [...] VIEWS CLINICAL INFORMATION: Chest pain. COMPARISON: | [facility] | | None FINDINGS: Heart size and [...] | + + + + + | [facility] | [address] | [facility] [address] | | + + + + + Phosphorus (08/06/2018 6:05 AM) + + + + + | Component | Value | Ref Range | Performed At | + + + + + | PHOSPHORUS | 4.7Comment: Testing | 2.3 - 4.8 mg/dL | [facility] | | | performed at [facility], [address] | | LABORATORY | | | [facility], | | | | | [place] [address] | | | + + + + + + + | Specimen | + + | Blood | + + + + + + + | Performing | Address | City/State/Zipcode | Phone Number | | Organization | | | | + + + + + | [facility] | [address] | [place] [address] | [phone] | | LABORATORY | [address]vd[address] | | | + + + + + Magnesium (08/06/2018 6:05 AM) + + + + + | Component | Value | Ref Range | Performed At | + + + + + | MAGNESIUM | 2.1Comment: Testing | 1.7 - 2.4 mg/dL | [facility] | | | performed at [facility], [address] | | LABORATORY | | | [address] [facility], | | | | | [place] [address] | | | + + + + + + + | Specimen | + + | Blood | + + + + + + + | Performing | Address | City/State/Zipcode | Phone Number | | Organization | | | | + + + + + | [facility] | [address] | [place] [address] | [phone] | | LABORATORY | [address]vd[address] | | | + + + + + Basic metabolic panel (08/06/2018 6:05 AM) + + + + + | Component | Value | Ref Range | Performed At | + + + + + | SODIUM | 143 | 135 - 145 mmol/L | [facility] | + + + + + | POTASSIUM | 5.1 (H) | 3.5 - 4.9 mmol/L | [facility] | + + + + + | CHLORIDE | 116 (H) | 99 - 109 mmol/L | [facility] | + + + + + | CO2 | 21 (L) | 23 - 32 mmol/L | [facility] | + + + + + [...] (H) | 0.50 - 1.00 mg/dL | [facility] | + + + + + | BUN/CREAT | 27 | | [facility] | + + + + + | CALCIUM | 7.6 (L) | 8.5 - 10.5 mg/dL | [facility] | + + + + + | EGFR | 25 (L)Comment: GFR <60: | >60 mL/min/1.73m2 | [facility] | | | CHRONIC KIDNEY [...] the | | | | | MDRD MNMS traceable | | | | | equation.Testing | | | | | performed at [facility] | | | | | [facility];[place], [place] | | | | | [address] | | | + + + + + + + | Specimen | + + | Blood | + + + + + + + | Performing | Address | City/State/Zipcode | Phone Number | | Organization | | | | + + + + + | [facility] | [address] | [place] [address] | | + + + + + [...] | [facility] | | | performed at [facility], [address] | | LABORATORY | | | [facility], | | | | | [place] [address] | | | + + + + + + + + + + | Performing | Address | City/State/Zipcode | Phone Number | | Organization | | | | + + + + + | [facility] | [address] | [place] [address] | [phone] | | LABORATORY | [address]vd[address] | | | + + + + + Glycohemoglobin A1c (08/06/2018 6:05 AM) + + + + + | Component | Value | Ref Range | Performed At | + + + + + | HEMOGLOBIN A1C | 6.4 (H)Comment: The | 4.0 - 6.0 % | [facility] | | | [place] Diabetes | | LABORATORY | | | [...] 137Comment: The ADA | <154 mg/dL | [facility] | | GLUCOSE | considers an eAG [...] | | | | | performed at [facility], [address] | | | | | [facility], | | | | | [place] [address] | | | + + + + + + + | Specimen | + + | Blood | + + + + + + + | Performing | Address | City/State/Zipcode | Phone Number | | Organization | | | | + + + + + | [facility] | [address] | [place] [address] | [phone] | | LABORATORY | [address] | | | + + + + + POCT glucose (08/06/2018 5:42 AM) + + + + + | Component | Value | Ref Range | Performed At | + + + + + | GLUCOSE,POC SCREEN | 117 (H)Comment: Testing | 65 - 99 mg/dL | [facility] | | | performed at [facility];[address] | | | | | [address];[place] | | | | | [address] | | | + + + + + + + + + + | Performing | Address | City/State/Zipcode | Phone Number | | Organization | | | | + + + + + | [facility] | [address] | [place] [address] | | + + + + + Potassium (08/06/2018 12:36 AM) + + + + + | Component | Value | Ref Range | Performed At | + + + + + | POTASSIUM | 5.5 (H)Comment: Testing | 3.5 - 4.9 mmol/L | [facility] | | | performed at [facility] | | | | | [facility];[place], [place] | | | | | [address] | | | + + + + + + + | Specimen | + + | Blood | + + + + + + + | Performing | Address | City/State/Zipcode | Phone Number | | Organization | | | | + + + + + | [facility] | [address] | [place] [address] | | + + + + + POCT glucose (08/05/2018 9:09 PM) + + + + + | Component | Value | Ref Range | Performed At | + + + + + | GLUCOSE,POC SCREEN | 167 (H)Comment: Testing | 65 - 99 mg/dL | [facility] | | | performed at [facility];[address] | | | | | [facility];[place] | | | | | [address] | | | + + + + + + + + + + | Performing | Address | City/State/Zipcode | Phone Number | | Organization | | | | + + + + + | [facility] | [address] | [facility] [address] | | + + + + + Potassium (08/05/2018 6:40 PM) + + + + + | Component | Value | Ref Range | Performed At | + + + + + | POTASSIUM | 6.2 (H)Comment: SLT | 3.5 - 4.9 mmol/L | [facility] | | | HEMOLYSISTesting | | | | | performed at [facility];[address] | | | | | [address];[place] | | | | | [address] | | | + + + + + + + | Specimen | + + | Blood | + + + + + + + | Performing | Address | City/State/Zipcode | Phone Number | | Organization | | | | + + + + + | [facility] | [address] | [place] [address] | | + + + + + [...] | + + + + + | [facility] | [address] | [place] [address] | | + + + + + CBC w/auto diff (reflex to manual) (08/05/2018 11:00 AM) + + + + + | Component | Value | Ref Range | Performed At | + + + + + | WBC | 5.91 | 3.80 - 11.00 K/uL | [facility] | + + + + + | RBC | 3.67 (L) | 3.70 - 5.10 M/uL | [facility] | + + + + + | HGB | 10.2 (L) | 11.3 - 15.5 g/dL | [facility] | + + + + + [...] 182 | 150 - 400 K/uL | [facility] | + + + + + | MPV | 10.3 | fl | [facility] | + + + + + | DIFF TYPE | AUTOMATED | | [facility] | + + + + + | NEUTROPHILS | 56.22 | % | [facility] | + + + + + [...] 0.29 | 0.00 - 0.50 K/uL | [facility] | + + + + + | BASOPHILS ABS | 0.06Comment: Testing | 0.00 - 0.10 K/uL | [facility] | | | performed at [facility];[address] | | | | | [address];[place], [place] | | | | | [address] | | | + + + + + + + | Specimen | + + | Blood | + + + + + + + | Performing | Address | City/State/Zipcode | Phone Number | | Organization | | | | + + + + + | [facility] | [address] | [place] [address] | | + + + + + Basic metabolic panel (08/05/2018 11:00 AM) + + + + + | Component | Value | Ref Range | Performed At | + + + + + | SODIUM | 142 | 135 - 145 mmol/L | [facility] | + + + + + | POTASSIUM | 5.8 (H) | 3.5 - 4.9 mmol/L | [facility] | + + + + + [...] (H) | 0.50 - 1.00 mg/dL | [facility] | + + + + + | BUN/CREAT | 25 | | [facility] | + + + + + | CALCIUM | 8.1 (L) | 8.5 - 10.5 mg/dL | [facility] | + + + + + | EGFR | 19 (L)Comment: GFR <60: | >60 mL/min/1.73m2 | [facility] | | | CHRONIC KIDNEY [...] the | | | | | MDRD MNMS traceable | | | | | equation.Testing | | | | | performed at [facility] | | | | | [facility];[place] | | | | | [address] | | | + + + + + + + | Specimen | + + | Blood | + + + + + + + | Performing | Address | City/State/Zipcode | Phone Number | | Organization | | | | + + + + + | [facility] | [address] | [place] [address] | | + + + + + in this encounter Visit Diagnoses + + | Diagnosis | + + | Acute renal failure superimposed on stage 4 chronic kidney disease (HCC) - Primary | + + | 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
[~2018-10-01 18:59] MED LIST changes: +DULERA 200 MCG/13 GM INH; +TESSALON PERLE100 MG PO; +VENTOLIN HFA18 GM INH; +ZITHROMAX250 MG PO
--- OUTSIDE RECORDS SUMMARY | 2018-10-01 19:02 | XMS ---
PreManage Notification: JOSE G COX Security Skilled Nursing Professional Events No recent Security Events currently on file CRITERIA MET - 6 ED Visits in 6 Months - [facility] - Has Care Guidelines - [facility] - 2 Visits in 30 Days CARE PROVIDERS ADAMARIS HENNING Physician Submarine Operator: Surgical 04/21/2018-Current PHONE: Unknown Neo has no Care Guidelines for this patient. Care History Medical/Surgical 04/21/2018 [facility] - PATIENT HAS DALILA PROVIDER: - PLEASE REFER PATIENT TO [facility]. - IF PATIENT CALLS EARLY IN THE AM TO [facility] PATIENT CAN BE SEEN SAME DAY FOR ANY NON EMERGENT MEDICAL NEEDS. - [facility] CONTACT # [phone] - PATIENT HAS A LONG EXTENSIVE HX WITH METHAMPHETAMINE USAGE. - PHYSICIAN DISCRECTION- TOX SCREEN BEFORE TREATMENT. Care Recommendation: - USE EXTREME CAUTION IN GIVING NARCOTICS TO THIS PATIENT. - Avoid Discharge Narcotic prescriptions if at all possible. Please use clinical judgement. E.D. VISIT COUNT (12 MO.) 12 [facility] TOTAL 12 NOTE: Visits indicate total known visits. ED/UCC VISIT TRACKING (12 MO.) 10/01/2018 19:00 [facility] [place] TYPE: Emergency COMPLAINT: - ABD PAIN 09/09/2018 07:55 [facility] [place] TYPE: Emergency COMPLAINT: - COUGH DIAGNOSES: - Personal history of nicotine dependence - Allergy status to other drugs, medicaments and biological substances status - Cough - Type 2 diabetes mellitus without complications - Pneumonia, unspecified organism - Other tank terminal gauger (current) drug therapy - care home (current) use of insulin - Chronic sinusitis, unspecified 08/21/2018 15:13 [facility] [place] TYPE: Emergency COMPLAINT: - DIFFICULTY BREATHING DIAGNOSES: - Old myocardial infarction - superintendent terminal (current) use of insulin - Other tank terminal gauger (current) drug therapy - Heart failure, unspecified [...] asthma, uncomplicated - Chest pain, unspecified - superintendent terminal (current) use of insulin - Type 2 diabetes mellitus without complications - Allergy status to other drugs, medicaments and biological substances status - Other intermediate (current) drug therapy - Viral infection, unspecified 05/13/2018 22:31 [facility] [place] TYPE: Emergency COMPLAINT: - R HAND NUMBNESS DIAGNOSES: - Allergy status to other drugs, medicaments and biological substances status - Personal history of nicotine dependence - Hyperkalemia - Heart failure, unspecified - Anesthesia of skin - Paresthesia of skin - Other tank terminal gauger (current) drug therapy - Unspecified asthma, uncomplicated - Other chronic pain - Type 2 diabetes mellitus without complications - superintendent terminal (current) use of insulin - Old myocardial infarction 04/21/2018 09:15 [facility] [place] TYPE: Emergency COMPLAINT: - VOMITING/DIARRHEA DIAGNOSES: - Proteinuria, unspecified - Personal history of transient ischemic attack (TIA), and cerebral infarction without residual deficits - Other tank terminal gauger (current) drug therapy - Personal history of nicotine dependence - superintendent terminal (current) use of insulin - Unspecified asthma, [...] Personal history of nicotine dependence - Other tank terminal gauger (current) drug therapy - Diarrhea, unspecified - Allergy status to other drugs, medicaments and biological substances status - Heart failure, unspecified 04/15/2018 22:01 [facility] [place] TYPE: Emergency COMPLAINT: - LOWER BACK PAIN DIAGNOSES: - Proteinuria, unspecified - care home (current) use of insulin - Unspecified asthma, uncomplicated - Type 2 diabetes mellitus without complications - Allergy status to other drugs, medicaments and biological substances status - Heart failure, unspecified - Unspecified abdominal pain - Personal history of nicotine dependence - Other intermediate (current) drug therapy 03/08/2018 21:50 [facility] [place] TYPE: Emergency COMPLAINT: - CHEST PAIN 02/10/2018 03:43 [facility] [place] TYPE: Emergency COMPLAINT: - L FOOT PAIN/NON INJURY DIAGNOSES: - superintendent terminal (current) use of aspirin - Pain in left ankle and joints of left foot - Personal history of nicotine dependence - Allergy status to other drugs, medicaments and biological substances status - superintendent terminal (current) use of insulin - Insomnia, unspecified - Personal history of transient ischemic attack (TIA), and cerebral infarction without residual deficits - Type 2 diabetes mellitus with diabetic neuropathy, unspecified - Sedative, hypnotic or anxiolytic dependence with withdrawal, unspecified 01/31/2018 09:56 [facility] [place] TYPE: Emergency COMPLAINT: - SOB DIAGNOSES: - care home (current) use of aspirin - Type 2 diabetes mellitus without complications - Shortness of breath - Heart failure, unspecified - Other intermediate (current) drug therapy - Personal history of nicotine dependence - Allergy status to other drugs, medicaments and biological substances status 01/27/2018 15:57 [facility] [place] TYPE: Emergency COMPLAINT: - SOB INPATIENT VISIT TRACKING (12 MO.) 08/05/2018 10:20 [facility] TYPE: Cardiology DIAGNOSES: - Ischemic cardiomyopathy - Heart failure, unspecified - Atherosclerotic heart disease of [place] coronary artery without angina pectoris - Precordial pain 03/08/2018 21:51 [facility] [place] TYPE: Medical Surgical COMPLAINT: - DEHYDRATION DIAGNOSES: - Other tank terminal gauger (current) drug therapy - Dehydration - Major depressive disorder, single episode, unspecified - Hypertensive heart disease with heart failure - Adverse effect of loop [high-ceiling] diuretics, initial encounter - Allergy status to other drugs, medicaments and biological substances status - Acute kidney failure, unspecified - Other stimulant abuse, in remission - Type 2 diabetes mellitus with foot ulcer - Atherosclerotic heart disease of [place] coronary artery without angina pectoris - Gangrene, not elsewhere classified - Personal history of nicotine dependence - care home (current) use of insulin - Unspecified asthma, uncomplicated - Type 2 diabetes mellitus with diabetic peripheral angiopathy with gangrene - Personal history of transient ischemic attack (TIA), and cerebral infarction without residual deficits - superintendent terminal (current) use of aspirin - Old myocardial infarction - Chronic systolic (congestive) heart failure - Alcohol dependence, in remission - Non-pressure chronic ulcer of other part of right foot with unspecified severity - Anxiety disorder, unspecified 01/27/2018 18:37 [facility] [place] TYPE: Medical Surgical COMPLAINT: - CHF DIAGNOSES: - Atherosclerotic heart disease of [place] coronary artery without angina pectoris - Type 2 diabetes mellitus with diabetic neuropathy, unspecified - Type 2 diabetes mellitus with foot ulcer - Hypertensive heart disease with heart failure - Non-pressure chronic ulcer of other part of right foot with unspecified severity - superintendent terminal (current) use of insulin - Acute diastolic (congestive) heart failure - Other stimulant dependence, uncomplicated - Personal history of transient ischemic attack (TIA), and cerebral infarction without residual deficits - Nicotine dependence, cigarettes, uncomplicated - Heart failure, unspecified [email or web address]
[2018-10-01] MEDS ORDERED: FEOSOL325 MG PO (19:16)
[2018-10-01] MEDS ORDERED: ALLEGRA ALLERG180 MG PO (19:16)
[2018-10-01] MEDS ORDERED: ASPIR 8181 MG PO (19:16)
[2018-10-01] MEDS ORDERED: HYDRALAZINE HCL25 MG PO (19:17)
[2018-10-01] MEDS ORDERED: VITAMIN C500 M5 PO (19:18)
[2018-10-01] MEDS ORDERED: BACTRIM DS TAB1 EACH PO (21:09)
[2018-10-01] MEDS ORDERED: CEPHALEXIN500 MG PO (21:09)
== END 2018-10-01 21:16 | disposition home or self-care (01) ==
LOC: ED 18:59
DX: L03.311 Cellulitis of abdominal wall (principal); E11.9 Type 2 diabetes mellitus without complications; J45.909 Unspecified asthma, uncomplicated; I25.2 Old myocardial infarction; I50.9 Heart failure, unspecified; Z88.8 Allergy status to other drugs, medicaments and biological substances; Z79.4 Long term (current) use of insulin; Z79.899 Other long term (current) drug therapy; Z79.82 Long term (current) use of aspirin
CPT/HCPCS: 99284

== ENCOUNTER 2018-12-01 16:04 | Emergency (ER) | payer OTHER ==
[~2018-12-01] VITALS: Ht 160 cm; Wt 85.7 kg
--- OUTSIDE RECORDS SUMMARY | ~2018-12-01 | XMS | Encounter Summary ---
Demographics + + + | Address | [address] | | | [place] [address] | + + + | Home Phone | | + + + | Preferred Language | Unknown | + + + | Marital Status | Unknown | + + + | Sikhism Affiliation | Unknown | + + + | Race | Unknown | + + + | Ethnic Group | Unknown | + + + Author + + + | Author | [employer] | + + + | Organization | [facility] | + + + | Address | Unknown | + + + | Phone | Unavailable | + + + Support + + +---------+ + | Name | Relationship | Address | Phone | + + +---------+ + | Sachin Dwyer | ECON | Unknown | | + + +---------+ + Care Team Providers + +------+ + | Care Hide Handler Name | Role | Phone | + +------+ + | [facility] | PCP | | + +------+ + Reason for Visit + + + | Reason | Comments | + + + | Labs Only | 11/12/18 | + + + Encounter Details +--------+ + + + + | Date | Type | Department | Care Team | Description | +--------+ + + + + | 11/14/ | Documentati | [facility] | [place] | Labs Only (11/12/18) | | 2019 | on Only | [place] [address] | [address] | | | | | [address] | | | | | | [place], [place] [address] | | | | | | [phone] | | | +--------+ + + + [...] Description | +--------+---------+ + + + | 02/09/ | Office | Nephrology | James Pearce MD | | | 2019 | Visit | | [address] | | | | | | [address] [place] | | | | | | [address] | | | | | | | | +--------+---------+ + + + as of this encounter Procedures + +--------+ + + + | Procedure Name | Priori | Date/Time | Associated Diagnosis | Comments | | | ty | | | | + +--------+ + + + | PTH INTACT NO | Routin | 11/12/2018 | | Results for this | | CALCIUM | e | 10:32 AM | | procedure are in the | | | | PDT | | results section. | + +--------+ + + + | HEMOGLOBIN A1C | Routin | 11/12/2018 | | Results for this | | | e | 10:32 AM | | procedure are in the | | | | PDT | | results section. | + +--------+ + + + | IRON AND TIBC | Routin | 11/12/2018 | | Results for this | | | e | 10:29 AM | | procedure are in the | | | | PDT | | results section. | + +--------+ + + + | VITAMIN D 25 HYDROXY | Routin | 11/12/2018 | | Results for this | | | e | 10:29 AM | | procedure are in the | | | | PDT | | results section. | + +--------+ + + + | FERRITIN | Routin | 11/12/2018 | | Results for this | | | e | 10:29 AM | | procedure are in the | | | | PDT | | results section. | + +--------+ + + + in this encounter Results PTH intact no calcium (11/12/2018 10:32 AM) + +--------+ + + | Component | Value | Ref Range | Performed At | + +--------+ + + | PTH INTACT NO | 141.30 | pg/mL | | | CALCIUM | | | | + +--------+ + + + + | Specimen | + + | Blood | + + Glycohemoglobin A1c (11/12/2018 10:32 AM) + +-------+ + + | Component | Value | Ref Range | Performed At | + +-------+ + + | HEMOGLOBIN A1C | 7.7 | % | | + +-------+ + + + + | Specimen | + + | Blood | + + Ferritin (11/12/2018 10:29 AM) + +-------+ + + | Component | Value | Ref Range | Performed At | + +-------+ + + | FERRITIN | 57.8 | 6 - 200 ng/mL | | + +-------+ + + + + | Specimen | + + | Blood | + + Iron panel (11/12/2018 10:29 AM) + + + + + | Component | Value | Ref Range | Performed At | + + + + + | IRON | 217 (A) | 30 - 180 | | + + + + + | IRON % SAT | 82.2 (A) | 20 - 55 | | + + + + + | TIBC | 264 | 245 - 400 | | + + + + + + + | Specimen | + + | Blood | + + Vitamin D,25 hydroxy (11/12/2018 10:29 AM) + +---------+ + + | Component | Value | Ref Range | Performed At | + +---------+ + + | VITAMIN D,25 HYDROXY | 8.5 (A) | 30 - 100 | | + +---------+ + + + + | Specimen | + + | Blood | + + in this encounter Visit Diagnoses Not on filein this encounter"
--- OUTSIDE RECORDS SUMMARY | ~2018-12-01 | XMS | Encounter Summary ---
Demographics + + + | Address | [address] | | | [place] [address] | + + + | Home Phone | | + + + | Preferred Language | Unknown | + + + | Marital Status | Unknown | + + + | Rastafarian Affiliation | Unknown | + + + | Race | Unknown | + + + | Ethnic Group | Unknown | + + + Author + + + | Author | [employer] | + + + | Organization | [facility] | + + + | Address | Unknown | + + + | Phone | Unavailable | + + + Support + + +---------+ + | Name | Relationship | Address | Phone | + + +---------+ + | Sachin Dwyer | ECON | Unknown | | + + +---------+ + Care Team Providers + +------+ + | Care Supervisor [employer] Name | Role | Phone | + +------+ + | [facility] | PCP | | + +------+ + Encounter Details +--------+ + + + + | Date | Type | Department | Care Team | Description | +--------+ + + + + | 11/17/ | Telephone | [facility] | [place], | | | 2018 | | [place] [address] | [address] | | | | | [address] | | | | | | [place] [address] | | | | | | [phone] | | | +--------+ + + + [...] | | | | | | [address] [place], [place] | | | | | | [address] | | | | | | | | +--------+---------+ + + + + +--------+ + + | Name | Priori | Associated Diagnoses | Order Schedule | | | ty | | | + +--------+ + + | Renal function panel | Routin | Essential | Expected: | | | e | (primary) | 02/16/2019, Expires: | | | | hypertension CKD | 11/18/2019 | | | | (chronic kidney | | | | | disease), stage IV | | | | | (HCC) Nephrotic | | | | | range proteinuria | | | | | Secondary | | | | | hyperparathyroidism | | | | | (HCC) Vitamin D | | | | | deficiency | | + +--------+ + + | CBC W/Auto Diff (Reflex to | Routin | Essential | Expected: | | Manual) | e | (primary) | 02/16/2019, Expires: | | | | hypertension CKD | 11/18/2019 | | | | (chronic kidney | | | | | disease), stage IV | | | | | (HCC) Nephrotic | | | | | range proteinuria | | | | | Secondary | | | | | hyperparathyroidism | | | | | (HCC) Vitamin D | | | | | deficiency | | + +--------+ + + | Iron Panel W/UIBC | Routin | Essential | Expected: | | | e | (primary) | 02/16/2019, Expires: | | | | hypertension CKD | 11/18/2019 | | | | (chronic kidney | | | | | disease), stage IV | | | | | ([facility]) Nephrotic | | | | | range proteinuria | | | | | Secondary | | | | | hyperparathyroidism | | | | | ([facility]) Vitamin D | | | | | deficiency | | + +--------+ + + | Ferritin | Routin | Essential | Expected: | | | e | (primary) | 02/16/2019, Expires: | | | | hypertension CKD | 11/18/2019 | | | | (chronic kidney | | | | | disease), stage IV | | | | | ([facility]) Nephrotic | | | | | range proteinuria | | | | | Secondary | | | | | hyperparathyroidism | | | | | ([facility]) Vitamin D | | | | | deficiency | | + +--------+ + + | PTH intact no calcium | Routin | Essential | Expected: | | | e | (primary) | 02/16/2019, Expires: | | | | hypertension CKD | 11/18/2019 | | | | (chronic kidney | | | | | disease), stage IV | | | | | ([facility]) Nephrotic | | | | | range proteinuria | | | | | Secondary | | | | | hyperparathyroidism | | | | | ([facility]) Vitamin D | | | | | deficiency | | + +--------+ + + | Vitamin D,25 hydroxy | Routin | Essential | Expected: | | | e | (primary) | 02/16/2019, Expires: | | | | hypertension CKD | 11/18/2019 | | | | (chronic kidney | | | | | disease), stage IV | | | | | (HCC) Nephrotic | | | | | range proteinuria | | | | | Secondary | | | | | hyperparathyroidism | | | | | (HCC) Vitamin D | | | | | deficiency | | + +--------+ + + | Urinalysis (reflex to micro) | Routin | Essential | Expected: | | | e | (primary) | 02/16/2019, Expires: | | | | hypertension CKD | 11/18/2019 | | | | (chronic kidney | | | | | disease), stage IV | | | | | (HCC) Nephrotic | | | | | range proteinuria | | | | | Secondary | | | | | hyperparathyroidism | | | | | (HCC) Vitamin D | | | | | deficiency | | + +--------+ + + | Protein / creatinine ratio, urine | Routin | Essential | Expected: | | | e | (primary) | 02/16/2019, Expires: | | | | hypertension CKD | 11/18/2019 | | | | (chronic kidney | | | | | disease), stage IV | | | | | ([facility]) Nephrotic | | | | | range proteinuria | | | | | Secondary | | | | | hyperparathyroidism | | | | | ([facility]) Vitamin D | | | | | deficiency | | + +--------+ + + as of this encounter Visit Diagnoses + + | Diagnosis | + + | Essential (primary) hypertension - Primary | + + | Unspecified essential hypertension | + + | CKD (chronic kidney disease), stage IV (HCC) | + + | Chronic kidney disease, Stage IV (severe) | + + | Nephrotic range proteinuria | + + | Proteinuria | + + | Secondary hyperparathyroidism (HCC) | + + | Secondary hyperparathyroidism (of renal origin) | + + | Vitamin D deficiency | + + | Unspecified vitamin D deficiency | + +"
--- OUTSIDE RECORDS SUMMARY | ~2018-12-01 | XMS | Clinical Summary ---
Demographics + + + | Address | [address] | | | [place] [address] | + + + | Home Phone | | + + + | Preferred Language | Unknown | + + + | Marital Status | Unknown | + + + | Muslim Affiliation | Unknown | + + + | Race | Unknown | + + + | Ethnic Group | Unknown | + + + Author + + + | Author | [facility] | + + + | Organization | [facility] | + + + | Address | Unknown | + + + | Phone | Unavailable | + + + Support + + +---------+ + | Name | Relationship | Address | Phone | + + +---------+ + | Sachin Dwyer | ECON | Unknown | | + + +---------+ + Care Team Providers + +------+ + | Care Aeronautical Design Engineer Name | Role | Phone | + +------+ + | Maribel French | PP | | + +------+ + Allergies + + + + + + | Active Allergy | Reactions | Severity | Noted | Comments | | | | | Date | | + + + + + + | Quinine | Hallucinations | Medium | 07/18/20 | | | | | | 18 [...] | insulin glargine | Inject 25 Units into | | | | | Activ | | (LANTUS) 100 UNIT/ML | the skin nightly. | | | | | e | | injection | | | | | | | [...] | | | | Activ | | (ADOXA) 50 MG tablet | 2 (two) times daily. | | | | | e | + + +--------+---------+------+------+-------+ | melatonin 1 MG | Take 1 mg by mouth | [...] mouth daily with | tablet | | 08/10 | 08/10 | e | | MG tablet | breakfast. | | | 19 | 20 | | + + +--------+---------+------+------+-------+ | cholecalciferol | Take 2,000 Units by | 90 | 2 | 07/23 | 07/23 | Activ | | 2000 units TABS | mouth daily. | tablet | | 08/10 | 08/10 | e | | | | | | 19 | 20 | | + + +--------+---------+------+------+-------+ | traMADol (ULTRAM) | Take 1 tablet by | 30 | 0 | /2 | | Activ | | 50 MG tablet | mouth every 6 (six) | tablet | | 1/20 | | e | | | hours as needed. | | | 19 | | | + + +--------+---------+------+------+-------+ | hydrALAZINE | Take 3 tablets by | 270 | 1 | 01/2 | /2 | Activ | | (APRESOLINE) 25 MG | mouth 3 (three) | tablet | | 1/20 | 1/20 | e | | tablet | times daily. | | | 19 | 20 | | + + +--------+---------+------+------+-------+ | carvedilol [...] | | | | + + +--------+---------+------+------+-------+ Active Problems + + + | Problem | Noted Date | + + + | CKD (chronic kidney disease), stage IV ([facility]) | 11/17/2018 | + + + | Anemia of chronic renal failure, stage 4 (severe) ([facility]) | 11/17/2018 | + + + | [...] + + + + | 11/17/ | Office | | James Pearce MD | Type 2 diabetes | | 2019 | Visit | | | mellitus with | | | | | | diabetic | | | | | | nephropathy, with | | | | | | long-term current | | | | | | use of insulin (HCC) | | | | | | (Primary Dx); CKD | | | | | | (chronic kidney | | | | | | disease), stage IV | | | | | | (HCC); Anemia of | | | | | | chronic renal | | | | | | failure, stage 4 | | | | | | (severe) (HCC); | | | | | | Nephrotic range | | | | | | proteinuria; | | | | | | Secondary | | | | | | hyperparathyroidism | | | | | | ([facility]); Vitamin D | | | | | | deficiency | +--------+ + + + + | 11/17/ | Telephone | | Luis, | | | 2018 | | | JOSESITO Suarez | | +--------+ + + + + | 11/14/ | Documentati | | Luis, | Other (Med List) | | 2019 | on Only | | JOSESITO Suarez | | +--------+ + + + + | 11/14/ | Bianca | | Luis | Brielle Only (11/12/18) | | 2019 | on Only | | JOSESITO Suarez | | +--------+ + + + + | 11/14/ | Orders Only | | Usama Smith Essential | | 2018 | | | JOSESITO Suarez | hypertension; Type 2 | | | [...] | +--------+ + + + + | 11/11/ | Telephone | | Luis, | | | 2019 | | | JOSESITO Suarez | | [...] + + + | Blood Pressure | 160/80 | 11/17/2018 1:27 PM PDT | + + + + | Pulse | 82 | 11/17/2018 1:27 PM PDT | + + + + | Temperature | 36.6 C (97.8 F) | 08/11/2018 11:36 AM PST | + + + + | Respiratory Rate | 18 | 08/21/2018 11:42 AM PST | + + + + | Oxygen Saturation | 98% | 11/17/2018 1:27 PM PDT | + + + + | Inhaled Oxygen | - | - | | Concentration | | | + + + + | Weight | 88.7 kg (195 lb 9.6 | 11/17/2018 1:27 PM PDT | | | oz) | | + + + + | Height | 160 cm (5' 3") | 11/17/2018 1:27 PM PDT | + + + + | Body Mass Index | 34.65 | 11/17/2018 1:27 PM PDT | + + + + Plan of Treatment +--------+---------+ + + + | Date | Type | Specialty | Care Team | Description | +--------+---------+ + + + | 02/09/ | Office | | James Pearce MD | | | 2019 | Visit | | [address] | | | | | | [address] [place] | | | | | | [address] | | | | | | | [...] + + | Hemoglobin A1c | | 11/12/2018, 08/06/2018 | | | | 9 | | | + + + + + | Vaccine: Influenza | | | | | (Season Ended) | 9 | | | + + [...] +--------+ + + + | CBC W/AUTO DIFF | Routin | 11/12/2018 | Essential | Results for this | | (REFLEX TO MANUAL) | e | 10:32 AM | hypertension Type 2 | procedure are in the | | | | PDT | diabetes mellitus | results section. | | | | | with complication, [...] | | | | | (HCC) | | + +--------+ + + + | RENAL FUNCTION PANEL | Routin | 11/12/2018 | Essential | Results for this | | | e | 10:32 AM | hypertension Type 2 | procedure are in the | | | | PDT | diabetes mellitus | results section. | | | | | with complication, [...] | | | | | (HCC) | | + +--------+ + + [...] + from Last 3 Months Results CBC W/Auto Diff (Reflex to Manual) (11/12/2018 10:32 AM) + + + + + | Component | Value | Ref Range | Performed At | + + + + + | WBC | 4.80 | 4.0 - 11.0 10^3/mL | [facility] | | | | | LABORATORY | + + + + + | RBC | 3.52 (A) | 3.80 - 5.0 10^6/ L | [facility] | | | | | LABORATORY | + + + + + | HGB | 9.86 (A) | 12 - 16 g/dL | [facility] | | | | | LABORATORY | + + + + + | HCT | 30.43 (A) | 35 - 45 % | [facility] | | | | | LABORATORY | + + + + + | MCV | 86.40 | 81 fL | [facility] | | | | | LABORATORY | + + + + + | MCH | 28.0 | 27 pg | [facility] | | | | | LAB[facility]ATORY | + + + + + | MCHC | 32.41 | 30.00 g/dL | [facility] | | | | | LAB[facility]ATORY | + + + + + | PLT | 211 | 140 - 440 K/ L | [facility] | | | | | LABORATORY | + + + + + | RDW SD | 14.24 | 10.50 % | [facility] | | | | | LAB[facility]ATORY | + + + + + | MPV | | fL | [facility] | | | | | LAB[facility] | + + + + + | DIFF TYPE | | | [facility] | | | | | LAB[facility]AT[facility] | + + + + + | NEUTROPHILS | 55.0 | 37 - 67 % | [facility] | | | | | LABORATORY | + + + + + | LYMPHOCYTES | 33.30 | 24 - 44 % | [facility] | | | | | LAB[facility]AT[facility] | + + + + + | MONOCYTES | 6.60 | 5 - 12 % | [facility] | | | | | LAB[facility]AT[facility] | + + + + + | EOSINOPHILS | 4.80 | 0 - 5 % | [facility] | | | | | LAB[facility]AT[facility] | + + + + + | BASOPHILS | 0.30 | 0 - 2 % | [facility] | | | | | LAB[facility]AT[facility] | + + + + + | NEUTROPHILS ABS | 2.64 | 1.3 - 7.0 / L | [facility] | | | | | LAB[facility]ATORY | + + + + + | LYMPHOCYTES ABS | 1.60 | 0.8 - 3.0 / L | [facility] | | | | | LABORAT[facility] | + + + + + | MONOCYTES ABS | 0.32 | 0.2 - 1.0 / L | [facility] | | | | | LABORATORY | + + + + + | EOSINOPHILS ABS | 0 | / L | [facility] | | | | | LABORATORY | + + + + + | BASOPHILS ABS | 0.01 | 0.0 | [facility] | | | | | LAB[facility]AT[facility] | + + + + + + + | Specimen | + + | Blood | + + + + + + + | Performing | Address | City/State/Zipcode | Phone Number | | Organization | | | | + + + + + | [facility] | [address] | [place] [address] | [phone] | | LABORATORY | Blvd. | | | + + + + + PTH intact no calcium (11/12/2018 10:32 AM) [...] + | Blood | + + Renal function panel (11/12/2018 10:32 AM) + +---------+ + + | Component | Value | Ref Range | Performed At | + +---------+ + + | GLUCOSE | 132 (A) | 65 - 99 mg/dL | [facility] | | | | | LABORATORY | + +---------+ + + | BUN | 32 (A) | 8 - 25 mg/dL | [facility] | | | | | LABORATORY | + +---------+ + + | CREATININE | 2.10 | 0.70 mg/dL | [facility] | | | | | LABORATORY | + +---------+ + + | PHOSPHORUS | 4.5 | 2.5 - 5.0 mg/dL | [facility] | | | | | LABORATORY | + +---------+ + + | Albumin | 3.1 (A) | 3.5 - 5.0 | [facility] | | | | | LABORATORY | + +---------+ + + | SODIUM | 140 | 135 - 145 mmol/L | [facility] | | | | | LABORATORY | + +---------+ + + | POTASSIUM | 4.1 | 3.5 - 5.0 mmol/L | [facility] | | | | | LABORATORY | + +---------+ + + | CHLORIDE | 111 (A) | 97 - 107 mmol/L | [facility] | | | | | LABORATORY | + +---------+ + + | CO2 | 24 | 22 - 29 mmol/L | [facility] | | | | | LABORATORY | + +---------+ + + | ANION GAP AGAP | 10 (A) | 14 - 22 mmol/L | [facility] | | | | | LABORATORY | + +---------+ + + | GFR MDRD Non Af Amer | | | [facility] | | | | | LABORATORY | + +---------+ + + | Phosphorus,Inorganic | | | [facility] | | | | | LABORATORY | + +---------+ + + | BUN/CREAT | 15.2 | 11.0 | [facility] | | | | | LABORATORY | + +---------+ + + | CALCIUM | | mg/dL | [facility] | | | | | LABORATORY | + +---------+ + + | EGFR | 25 (A) | 60 - 140 mg/dL | [facility] | | | | | LABORATORY | + +---------+ + + + + | Specimen | + + | Blood | + + + + + + + | Performing | Address | City/State/Zipcode | Phone Number | | Organization | | | | + + + + + | [facility] | [address] | [place] [address] | [phone] | | LABORATORY | [address]vd. 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
--- OUTSIDE RECORDS SUMMARY | ~2018-12-01 | XMS | Clinical Summary ---
Demographics + + + | Address | [address] | | | [place] [address] | + + + | Home Phone | | + + + | Preferred Language | Unknown | + + + | Marital Status | Unknown | + + + | Anabaptist Affiliation | Unknown | + + + | Race | Unknown | + + + | Ethnic Group | Unknown | + + + Author + + + | Author | [facility] | + + + | Organization | [facility] | + + + | Address | Unknown | + + + | Phone | Unavailable | + + + Support + + +---------+ + | Name | Relationship | Address | Phone | + + +---------+ + | Sachin Dwyer | ECON | Unknown | | + + +---------+ + Care Team Providers + +------+ + | Care Insurance Sales Specialist Name | Role | Phone | [...] | CKD (chronic kidney disease), stage IV ([facility]) | 11/17/2018 | + + + | Anemia of chronic renal failure, stage 4 (severe) ([facility]) | 11/17/2018 | + + + [...] hyperparathyroidism | | | | | | ([facility]); Vitamin D | | | | [...] | | | | | | [address] [place] | | | | | | [address] | | | | | | | [...] + + + | [facility] | [address] | [place] [address] | [phone] | | LABORATORY | Blvd. | | [...] | + + + + + | [facility] | [address] | [place] [address] | [phone] | | LABORATORY | [address]vd. 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
--- OUTSIDE RECORDS SUMMARY | ~2018-12-01 | XMS | Encounter Summary ---
Demographics + + + | Address | [address] | | | [place] [address] | + + + | Home Phone | | + + + | Preferred Language | Unknown | + + + | Marital Status | Unknown | + + + | Yarsanism Affiliation | Unknown | + + + | Race | Unknown | + + + | Ethnic Group | Unknown | + + + Author + + + | Author | [facility] | + + + | Organization | [facility] | + + + | Address | Unknown | + + + | Phone | Unavailable | + + + Support + + +---------+ + | Name | Relationship | Address | Phone | + + +---------+ + | Sachin Dwyer | ECON | Unknown | | + + +---------+ + Care Team Providers + +------+ + | Care Supervisor Front Name | Role | Phone | + +------+ + | Manolo Maribel Burt | PCP | | + +------+ + Encounter Details +--------+ + + + + | Date | Type | Department | Care Team | Description | +--------+ + + + + | 11/14/ | Orders Only | [facility] | Smith, | Essential | | 2019 | | [place] [address] | [place]ITO Suarez | hypertension; Type 2 | | | | [facility] [address] | | diabetes mellitus | | | | [place], [place] [address] | | with complication, | | | | [phone] | | with long-term | | | [...] | | | | | | [address] [place] | | | | | | [id number] | | | | | | | [...] + + in this encounter Results CBC W/Auto Diff (Reflex to Manual) [...] | + + + + + | [facility] | [address] | [place] [address] | [phone] | | LABORATORY | Blvd. | | | + + + + + Renal function panel (11/12/2018 10:32 AM) + +---------+ + + | Component | Value | Ref Range | Performed At | + +---------+ + + | GLUCOSE | 132 (A) | 65 - 99 mg/dL | [facility] | | | | | LABORATORY | + +---------+ + + | BUN | 32 (A) | 8 - 25 mg/dL | [facility] | | | | | LABORATORY | [...] + + + | [facility] | [address] | [place] [address] | [phone] | | LABORATORY | Blvd. | | | + + + + + in this encounter Visit Diagnoses + + | Diagnosis | + + | Essential hypertension | + + | Unspecified essential hypertension | + + | Type 2 diabetes mellitus with complication, with long-term current use of insulin | | (HCC) | + + | Acute renal failure superimposed on stage 4 chronic kidney disease, unspecified acute | | renal failure type (HCC) | + +"
--- OUTSIDE RECORDS SUMMARY | ~2018-12-01 | XMS | Encounter Summary ---
Demographics + + + | Address | [address] | | | [place] [address] | + + + | Home Phone | | + + + | Preferred Language | Unknown | + + + | Marital Status | Unknown | + + + | Roman Catholic Affiliation | Unknown | + + + | Race | Unknown | + + + | Ethnic Group | Unknown | + + + Author + + + | Author | [facility] | + + + | Organization | [facility] | + + + | Address | Unknown | + + + | Phone | Unavailable | + + + Support + + +---------+ + | Name | Relationship | Address | Phone | + + +---------+ + | Sachin Dwyer | ECON | Unknown | | + + +---------+ + Care Team Providers + +------+ + | Care Electrolog Operator Name | Role | Phone | [...] hypertension; Type 2 | | | | [facility] [address] | | diabetes mellitus | | | | [place], [place] [address] | | with complication, | | | | [phone] | | with long-term | | | [...] [place] | | | | | | [id number] | | | | | | | [...] | + + + + + | [facility] | [address] | [place] [address] | [phone] | | LABORATORY | Blvd. | | | + + + + + Renal function panel (11/12/2018 10:32 AM) + +---------+ + + | Component | Value | Ref Range | Performed At | + +---------+ + + | GLUCOSE | 132 (A) | 65 - 99 mg/dL | [facility] | | | | | LABORATORY | + +---------+ + + | BUN | 32 (A) | 8 - 25 mg/dL | [facility] | | | | | LABORATORY | [...] [facility] | [address] | [place] [address] | [phone] | | LABORATORY | Blvd. | | [...]
--- OUTSIDE RECORDS SUMMARY | ~2018-12-01 | XMS | Encounter Summary ---
Demographics + + + | Address | [address] | | | [place] [address] | + + + | Home Phone | | + + + | Preferred Language | Unknown | + + + | Marital Status | Unknown | + + + | Gnosticist Affiliation | Unknown | + + + | Race | Unknown | + + + | Ethnic Group | Unknown | + + + Author + + + | Author | [facility] | + + + | Organization | [facility] | + + + | Address | Unknown | + + + | Phone | Unavailable | + + + Support + + +---------+ + | Name | Relationship | Address | Phone | + + +---------+ + | Sachin Dwyer | ECON | Unknown | | + + +---------+ + Care Team Providers + +------+ + | Care Prescriptionist Name | Role | Phone | + [...] | | | | | [place] [address] | | | | | | [phone] | | | +--------+ + + + [...] | | | | | | [address] [place] | | | | | | [id number] | | | | | | | | +--------+---------+ + + + as of this encounter Visit Diagnoses Not on filein this encounter"
--- OUTSIDE RECORDS SUMMARY | ~2018-12-01 | XMS | Clinical Summary ---
Demographics + + + | Address | [address] | | | [place] [address] | + + + | Home Phone | | + + + | Preferred Language | Unknown | + + + | Marital Status | | + + + | Restoration Affiliation | Unknown | + + + [...] [address] [place] | | | | | [address] | | + + + + + Care Team Providers + +------+ + | Care Machine Wood Sander Name | Role | Phone | + +------+ + PP | Unavailable | + +------+ + Source Comments [facility] Allergies Not on File Medications Not [...] recent travel history available. | + + Plan of Treatment + + + + + | Health Maintenance | Due Date | Last Done | Comments | + + + + + | Influenza (Flu) | | | | | vaccination (Season | 9 | | | | Ended) | | | | + + + + + Results Not on filefrom Last 3 Months"
--- OUTSIDE RECORDS SUMMARY | ~2018-12-01 | XMS | Encounter Summary ---
Demographics + + + | Address | [address] | | | [place] [address] | + + + | Home Phone | | + + + | Preferred Language | Unknown | + + + | Marital Status | Unknown | + + + | Druze Affiliation | Unknown | + + + | Race | Unknown | + + + | Ethnic Group | Unknown | + + + Author + + + | Author | [facility] | + + + | Organization | [facility] | + + + | Address | Unknown | + + + | Phone | Unavailable | + + + Support + + +---------+ + | Name | Relationship | Address | Phone | + + +---------+ + | Sachin Dwyer | ECON | Unknown | | + + +---------+ + Care Team Providers + +------+ + | Care House Painter Helper Name | Role | Phone | [...] | | | | | [place] [address] | | | | | | [phone] | | | +--------+ + + + [...] | | | | | | [address] [place], [place] | | | | | | [address] | | | | | | | | +--------+---------+ + + + as of this encounter Visit Diagnoses Not on filein this encounter"
--- OUTSIDE RECORDS SUMMARY | ~2018-12-01 | XMS | Encounter Summary ---
Demographics + + + | Address | [address] | | | [place] [address] | + + + | Home Phone | | + + + | Preferred Language | Unknown | + + + | Marital Status | | + + + | Sabianism Affiliation | Unknown | + + + | Race | or | + + + | Ethnic Group | Not or | + + + Author + + + | Author | [facility] | + + + | Organization | [facility] | + + + | Address | Unknown | + + + | Phone | Unavailable | + + + Support + + + + + | Name | Relationship | Address | Phone | + + + + + | Angene Bill | ECON | [address] | | | | [address], [place] | | | | | [address] | | + + + + + Care Team Providers + +------+ + | Care Business Transformation Consultant Name | Role | Phone | + +------+ + PCP | Unavailable | + +------+ + Encounter Details +--------+ + + + + | Date | Type | Department | Care Team | Description | +--------+ + + + + | 10/06/ | ED Progress | Emergency Medicine | Report, Emergency | ED Progress Note | | 1996 | | [address] | Services | | | | Note-Transc | [facility] [address] [address] | | | | | [place] | [place], [place] | | | | | | [address] | | | +--------+ + + + [...]
--- OUTSIDE RECORDS SUMMARY | ~2018-12-01 | XMS | Encounter Summary ---
Demographics + + + | Address | [address] | | | [place] [address] | + + + | Home Phone | | + + + | Preferred Language | Unknown | + + + | Marital Status | | + + + | Jainism Affiliation | Unknown | + + + | Race | or | + + + | Ethnic Group | Not or | + + + Author + + + | Author | [facility] | + + + | Organization | [facility] | + + + | Address | Unknown | + + + | Phone | Unavailable | + + + Support + + + + + | Name | Relationship | Address | Phone | + + + + + | Angene Bill | ECON | [address] | | | | | [address], [place] | | | | | [address] | | + + + + + Care Team Providers + +------+ + | Care Consignee Name | Role | Phone | + [...] Services | | | | Note-Transc | [facility] [address] | | | | | [address] | [place], [place] | | | | | | [address] | | | +--------+ + + + [...]
--- OUTSIDE RECORDS SUMMARY | ~2018-12-01 | XMS | Encounter Summary ---
Demographics + + + | Address | [address] | | | [place] [address] | + + + | Home Phone | | + + + | Preferred Language | Unknown | + + + | Marital Status | Unknown | + + + | Rastafari Affiliation | Unknown | + + + | Race | Unknown | + + + | Ethnic Group | Unknown | + + + Author + + + | Author | [facility] | + + + | Organization | [facility] | + + + | Address | Unknown | + + + | Phone | Unavailable | + + + Support + + +---------+ + | Name | Relationship | Address | Phone | + + +---------+ + | Sachin Dwyer | ECON | Unknown | | + + +---------+ + Care Team Providers + +------+ + | Care Nuclear Physicist Name | Role | Phone | + [...] | | | | | [place] [address] | | | | | | [phone] | | | +--------+ + + + [...] | | | | | | [address] [place] | | | | | | [id number] | | | | | | | | +--------+---------+ + + + as of this encounter Visit Diagnoses Not on filein this encounter"
--- OUTSIDE RECORDS SUMMARY | ~2018-12-01 | XMS | Encounter Summary ---
Demographics + + + | Address | [address] | | | [place] [address] | + + + | Home Phone [...] + | Author | [facility] | | | and [place] | + + + | Organization | [facility] | | | and [...] + | Sachin Dwyer | ECON | [address] | | | | | [place] | | + + + + + Care Team Providers + +------+ + | Care Laminating Machine Feeder Name | Role | Phone | + [...] | RN | | | | | [place], | | | | | | [place] [address] | | | | | | [phone] | | | +--------+ + + + [...]
--- OUTSIDE RECORDS SUMMARY | ~2018-12-01 | XMS | Encounter Summary ---
Demographics + + + | Address | [address] | | | [place] [address] | + + + | Home Phone | | + + + | Preferred Language | Unknown | + + + | Marital Status | Unknown | + + + | Confucianist Affiliation | Unknown | + + + | Race | Unknown | + + + | Ethnic Group | Unknown | + + + Author + + + | Author | [facility] | + + + | Organization | [facility] | + + + | Address | Unknown | + + + | Phone | Unavailable | + + + Support + + +---------+ + | Name | Relationship | Address | Phone | + + +---------+ + | Sachin Dwyer | ECON | Unknown | | + + +---------+ + Care Team Providers + +------+ + | Care Orthotic Aide Name | Role | Phone | [...] | | [address] | [address] [place], [place] | diabetic | | | | [place] [address] | [phone] | nephropathy, with | | | | [phone] | | long-term current | | | | | | use of insulin (HCC) | | | | | | (Primary Dx); CKD | | | | | | (chronic kidney | | | | | | disease), stage IV | | | | | | ([facility]); Anemia of | | | | | | chronic renal | | | | | | failure, stage 4 | | | | | | (severe) ([facility]); | | | | | | Nephrotic range | | | | | | proteinuria; | | | | | | Secondary | | | | | | hyperparathyroidism | | | | | | ([facility]); Vitamin D | | | | [...] RFP, CBC, Iron studies, Ferritin, intact PTH, 93-joxxcwt-esojxqv D, urin alysis, Urine total chwctmf-ry-ysrwpmwliz ratio before she comes back in 3 [...] LABIRON 82.2 (A) 11/12/2018 LABPROT 4.982 08/07/2018 [id number] 8.5 (A) 11/12/2018 Assessment: Ms. Mario is [...] RFP, CBC, Iron studies, Ferritin, intact PTH, 35-fainuht-tnlbfhd D, urin alysis, Urine total oaetyza-co-pbnvkyonmp ratio before she comes back in 3 [...] | | | | | | [address] [place], [place] | | | | | | [address] | | | | | | | [...] renal failure, stage 4 (severe) ([facility]) | + + | Nephrotic range proteinuria | + + | Proteinuria | + + | Secondary hyperparathyroidism (HCC) | + + | Secondary hyperparathyroidism (of renal origin) | + + | Vitamin D deficiency | + + | Unspecified vitamin D deficiency | + +
--- OUTSIDE RECORDS SUMMARY | ~2018-12-01 | XMS | Encounter Summary ---
Demographics + + + | Address | [address] | | | [place] [address] | + + + | Home Phone [...] + | Sachin Dwyer | ECON | [address] | | | | | [place] | | + + + + + Care Team Providers + +------+ + | Care Show Girl Name | Role | Phone | + [...] | RN | | | | | [place], | | | | | | [place] [address] | | | | | | [phone] | | | +--------+ + + + [...]
--- OUTSIDE RECORDS SUMMARY | ~2018-12-01 | XMS | Encounter Summary ---
Demographics + + + | Address | [address] | | | [place] [address] | + + + | Home Phone | | + + + | Preferred Language | Unknown | + + + | Marital Status | Unknown | + + + | Quaker Affiliation | Unknown | + + + | Race | Unknown | + + + | Ethnic Group | Unknown | + + + Author + + + | Author | [email or web address] | + + + | Organization | [facility] | + + + | Address | Unknown | + + + | Phone | Unavailable | + + + Support + + +---------+ + | Name | Relationship | Address | Phone | + + +---------+ + | Sachin Dwyer | ECON | Unknown | | + + +---------+ + Care Team Providers + +------+ + | Care Char Conveyor Tender Name | Role | Phone | + [...] | | | | | [place] [address] | | | | | | [phone] | | | +--------+ + + + [...] | | | | | | [address] [place], [place] | | | | | | [address] | | | | | | | | +--------+---------+ + + + as of this encounter Visit Diagnoses Not on filein this encounter"
--- OUTSIDE RECORDS SUMMARY | ~2018-12-01 | XMS | Encounter Summary ---
Demographics + + + | Address | [address] | | | [place] [address] | + + + | Home Phone [...] + | Sachin Dwyer | ECON | [address] | | | | | [place] | | + + + + + Care Team Providers + +------+ + | Care Watch And Clock Repairer Name | Role | Phone | [...] + + | 11/14/ | Telephone | [facility] | Сергей Gaitan | Other (Testing, | | 2018 | | [address] | [address] | Labs) | | | | [place], | [address] [place] | | | | | [place] [address] | [place] [address] | | | | | [phone] | | | | | | | [...] infarction, | | | | | unspecified NE type, | | | | | unspecified [...] infarction, | | | | | unspecified NE type, | | | | | unspecified [...] infarction, | | | | | unspecified NE type, | | | | | unspecified [...] | + + | Myocardial infarction, unspecified NE type, unspecified artery (HCC) | + + | Essential hypertension Unspecified essential hypertension | + + | Encounter for lipid screening for cardiovascular disease | + + documented in this encounter"
--- OUTSIDE RECORDS SUMMARY | ~2018-12-01 | XMS | Encounter Summary ---
Demographics + + + | Address | [address] | | | [place] [address] | + + + | Home Phone [...] + | Sachin Dwyer | ECON | [address] | | | | | [place] | | + + + + + Care Team Providers + +------+ + | Care Clinical Nurse Occupational Medicine Name | Role | Phone | + [...] + + | 11/14/ | Telephone | [facility] | Сергей Gaitan | Other (Testing, | | 2018 | | [address] | [address] | Labs) | | | | [place], | [address] [place] | | | | | [place] [address] | [place] [address] | | | | | [phone] | [phone] | | | | | | | [...] infarction, | | | | | unspecified [place] type, | | | | | unspecified [...] infarction, | | | | | unspecified [place] type, | | | | | unspecified [...] infarction, | | | | | unspecified [place] type, | | | | | unspecified [...] | + + | Myocardial infarction, unspecified [place] type, unspecified artery (HCC) | + + | Essential hypertension Unspecified essential hypertension | + + | Encounter for lipid screening for cardiovascular disease | + + documented in this encounter"
--- OUTSIDE RECORDS SUMMARY | ~2018-12-01 | XMS | Encounter Summary ---
Demographics + + + | Address | [address] | | | [place] [address] | + + + | Home Phone | | + + + | Preferred Language | Unknown | + + + | Marital Status | Unknown | + + + | Bahai Affiliation | Unknown | + + + | Race | Unknown | + + + | Ethnic Group | Unknown | + + + Author + + + | Author | [facility] | + + + | Organization | [facility] | + + + | Address | Unknown | + + + | Phone | Unavailable | + + + Support + + +---------+ + | Name | Relationship | Address | Phone | + + +---------+ + | Sachin Dwyer | ECON | Unknown | | + + +---------+ + Care Team Providers + +------+ + | Care Exceptional Children Teacher Assistant Name | Role | Phone | [...] [place]arez | | | | | [address] | | | | | | [place] [address] | | | | | | [phone] | | | +--------+ + + + [...] | | | | | | [address] [place], [place] | | | | | | [address] | | | | | | | [...] stage IV | | | | | ([facility]) Nephrotic | | | | | range proteinuria | | | | | Secondary | | | | | hyperparathyroidism | | | | | ([facility]) Vitamin D | | | | | deficiency | | + +--------+ + + | Ferritin | Routin | Essential | Expected: | | | e | (primary) | 02/16/2019, Expires: | | | | hypertension CKD | 11/18/2019 | | | | (chronic kidney | | | | | disease), stage IV | | | | | ([facility]) Nephrotic | | | | | range proteinuria | | | | | Secondary | | | | | hyperparathyroidism | | | | | ([facility]) Vitamin D | | | | | deficiency | | + +--------+ + + | PTH intact no calcium | Routin | Essential | Expected: | | | e | (primary) | 02/16/2019, Expires: | | | | hypertension CKD | 11/18/2019 | | | | (chronic kidney | | | | | disease), stage IV | | | | | ([facility]) Nephrotic | | | | | range proteinuria | | | | | Secondary | | | | | hyperparathyroidism | | | | | ([facility]) Vitamin D | | | [...] stage IV | | | | | ([facility]) Nephrotic | | | | | range proteinuria | | | | | Secondary | | | | | hyperparathyroidism | | | | | ([facility]) Vitamin D | | | [...]
--- OUTSIDE RECORDS SUMMARY | ~2018-12-01 | XMS | Clinical Summary ---
Demographics + + + | Address | [address] | | | [place] [address] | + + + | Home Phone | | + + + | Preferred Language | Unknown | + + + | Marital Status | | + + + | Yarsani Affiliation | Unknown | + + + [...] [address] [place] | | | | | [address] | | + + + + + Care Team Providers + +------+ + | Care Brand Ambassador Name | Role | Phone | + +------+ + PP | Unavailable | + +------+ + Source Comments CHELY is fully live on both [facility] and [facility] Allergies Not on File Medications Not [...]
--- OUTSIDE RECORDS SUMMARY | ~2018-12-01 | XMS | Encounter Summary ---
Demographics + + + | Address | [address] | | | [place] [address] | + + + | Home Phone | | + + + | Preferred Language | Unknown | + + + | Marital Status | Unknown | + + + | Christian Affiliation | Unknown | + + + | Race | Unknown | + + + | Ethnic Group | Unknown | + + + Author + + + | Author | [facility] | + + + | Organization | [facility] | + + + | Address | Unknown | + + + | Phone | Unavailable | + + + Support + + +---------+ + | Name | Relationship | Address | Phone | + + +---------+ + | Sachin Dwyer | ECON | Unknown | | + + +---------+ + Care Team Providers + +------+ + | Care Candle Cutter Name | Role | Phone | [...] mellitus with | | | | [address] | [address] [place], [place] | diabetic | | | | [place] [address] | [phone] | nephropathy, with | | | | [phone] | | long-term current | | | | | | use of insulin (HCC) | | | | | | (Primary Dx); CKD | | | | | | (chronic kidney | | | | | | disease), stage IV | | | | | | ([facility]); Anemia of | | | | | | chronic renal | | | | | | failure, stage 4 | | | | | | (severe) ([facility]); | | | | | [...] RFP, CBC, Iron studies, Ferritin, intact PTH, 85-vmeftur-qasuxem D, urin alysis, Urine total cgrlemj-pc-rdopzwqevy ratio before she comes back in 3 [...] you for the opportunity to see Ms. Mratin in hospital F/U today. As you are [...] LABIRON 82.2 (A) 11/12/2018 LABPROT 4.982 08/07/2018 [id number] 8.5 (A) 11/12/2018 Assessment: Ms. Mario is [...] RFP, CBC, Iron studies, Ferritin, intact PTH, 43-ldqwrzy-zqkssjt D, urin alysis, Urine total wdivfjp-lc-wainlthphn ratio before she comes back in 3 [...] | | | | | [address] [place], [place] | | | | | | [address] | | | | | | | [...] renal failure, stage 4 (severe) ([facility]) | + + | Nephrotic range proteinuria | + + | Proteinuria | + + | Secondary hyperparathyroidism (HCC) | + + | Secondary hyperparathyroidism (of renal origin) | + + | Vitamin D deficiency | + + | Unspecified vitamin D deficiency | + +
--- OUTSIDE RECORDS SUMMARY | ~2018-12-01 | XMS | Clinical Summary ---
Demographics + + + | Address | [address] | | | [place] [address] | + + + | Home Phone [...] + | Sachin Dwyer | ECON | [address] | | | | | [place] | | + + + + + Care Team Providers + +------+ + | Care Information Systems Supervisor Name | Role | Phone | [...] + + | Overview: Echocardiogram done at [facility] on 01/28/18 | | shows overall left [...] | [employer] | [employer] | [id number] | 01/28/20 | [phone] | | Medica | | MEDICAID HMO | HEALTH | | 18-Pre | 1 | | id | | | MDCD | | sent | | | | | | HMO OR | | | | | | + +--------+ +--------+ +---------+--------+ | [facility] | IHS | [id number] | | | | [place] | | [...] Person | Self | [birth year] | [address] | | | al/Fam | | 7 | [phone] | [place] | | | jeni | | | 4 (Home) | [address] | + +--------+ +--------+ + + Advance Directives Patient has advance care planning documents on file. For more information, please contact:[facility] [place] [address]
--- OUTSIDE RECORDS SUMMARY | ~2018-12-01 | XMS | Clinical Summary ---
Demographics + + + | Address | [address] | | | [place] [address] | + + + | Home Phone [...] + | Sachin Dwyer | ECON | [address] | | | | | [place] | | + + + + + Care Team Providers + +------+ + | Care Application Support Manager Name | Role | Phone | [...] | [employer] | [employer] | [id number] | 01/28/20 | [phone] | | Medica | | MEDICAID HMO | HEALTH | | 18-Pre | 1 | | id | | | MDCD | | sent | | | | | | HMO OR | | | | | | + +--------+ +--------+ +---------+--------+ | [facility] | IHS | [id number] | | | | [place] | | [...] Person | Self | [birth year] | [address] | | | al/Fam | | 7 | [phone] | [place] | | | jeni | | | 4 (Home) | [address] | + +--------+ +--------+ + + Advance Directives Patient has advance care planning documents on file. For more information, please contact:[facility] [place] [address]
--- OUTSIDE RECORDS SUMMARY | ~2018-12-01 | XMS | Encounter Summary ---
Demographics + + + | Address | [address] | | | [place] [address] | + + + | Home Phone | | + + + | Preferred Language | Unknown | + + + | Marital Status | Unknown | + + + | Yarsani Affiliation | Unknown | + + + | Race | Unknown | + + + | Ethnic Group | Unknown | + + + Author + + + | Author | [facility] | + + + | Organization | [facility] | + + + | Address | Unknown | + + + | Phone | Unavailable | + + + Support + + +---------+ + | Name | Relationship | Address | Phone | + + +---------+ + | Sachin Dwyer | ECON | Unknown | | + + +---------+ + Care Team Providers + +------+ + | Care Radar Signal Processing Engineer Name | Role | Phone | [...] | | | | | [place], [place] [address] | | | | | | [phone] | | | +--------+ + + + [...] | | | | | | [address] | | | | | | [address] | | | | | | | [...]
[~2018-12-01 16:04] MED LIST changes: +ASPIR 8181 MG PO; +CEPHALEXIN500 MG PO; +FEOSOL325 MG PO; +HYDRALAZINE HCL25 MG PO; +KEFLEX500 MG PO; +VITAMIN C500 M5 PO
--- OUTSIDE RECORDS SUMMARY | 2018-12-01 16:08 | XMS ---
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 Care History Medical/Surgical 04/21/2018 [facility] - [facility]: - PLEASE REFER PATIENT TO [facility]. - IF PATIENT CALLS EARLY IN THE AM TO [facility] PATIENT CAN BE SEEN SAME DAY FOR ANY NON EMERGENT MEDICAL NEEDS. - [facility] CONTACT # [phone] - PATIENT HAS A LONG EXTENSIVE HX WITH METHAMPHETAMINE USAGE. - PHYSICIAN DISCRECTION- TOX SCREEN BEFORE TREATMENT. Care Recommendation: - USE EXTREME CAUTION IN GIVING NARCOTICS TO THIS PATIENT. - Avoid Discharge Narcotic prescriptions if at all possible. Please use clinical judgement. E.D. VISIT COUNT (12 MO.) 14 [facility] TOTAL 14 NOTE: Visits indicate total known visits. ED/UCC VISIT TRACKING (12 MO.) 12/01/2018 16:06 [facility] [place] TYPE: Emergency COMPLAINT: - BLURRED VISION, RIGHT SIDED WEAKNESS 11/07/2018 17:26 [facility] [place] TYPE: Emergency COMPLAINT: - RIGHT FOOT PAIN/INJURY DIAGNOSES: - Heart failure, unspecified - Old myocardial infarction - Allergy status to other drugs, medicaments and biological substances status - Striking against or struck by other objects, initial encounter - Unspecified asthma, uncomplicated - Personal history of transient ischemic attack (TIA), and cerebral infarction without residual deficits - MCC (current) use of insulin - Puncture wound without foreign body, right foot, initial encounter - Personal history of nicotine dependence - Type 2 diabetes mellitus without complications - Other adjunct faculty for medical terminology (current) drug therapy - MCC (current) use of aspirin 10/01/2018 19:00 [facility] [place] TYPE: Emergency COMPLAINT: - ABD PAIN DIAGNOSES: - Left lower quadrant pain - Heart failure, unspecified - Old myocardial infarction - terminologist (current) use of insulin - Unspecified asthma, uncomplicated - MCC (current) use of aspirin - Type 2 diabetes mellitus without complications - Other fpc (current) drug therapy - Cellulitis of abdominal wall - Allergy status to other drugs, medicaments and biological substances status 09/09/2018 07:55 [facility] [place] TYPE: Emergency COMPLAINT: - COUGH DIAGNOSES: - Personal history of nicotine dependence - Allergy status to other drugs, medicaments and biological substances status - Cough - Type 2 diabetes mellitus without complications - Pneumonia, unspecified organism - Other adjunct faculty for medical terminology (current) drug therapy - MCC (current) use of insulin - Chronic sinusitis, unspecified 08/21/2018 15:13 [facility] [place] TYPE: Emergency COMPLAINT: - DIFFICULTY BREATHING DIAGNOSES: - Old myocardial infarction - MCC (current) use of insulin - Other fpc (current) drug therapy - Heart failure, unspecified [...] asthma, uncomplicated - Chest pain, unspecified - MCC (current) use of insulin - Type 2 diabetes mellitus without complications - Allergy status to other drugs, medicaments and biological substances status - Other adjunct faculty for medical terminology (current) drug therapy - Viral infection, unspecified 05/13/2018 22:31 [facility] [place] TYPE: Emergency COMPLAINT: - R HAND NUMBNESS DIAGNOSES: - Allergy status to other drugs, medicaments and biological substances status - Personal history of nicotine dependence - Hyperkalemia - Heart failure, unspecified - Anesthesia of skin - Paresthesia of skin - Other adjunct faculty for medical terminology (current) drug therapy - Unspecified asthma, uncomplicated - Other chronic pain - Type 2 diabetes mellitus without complications - MCC (current) use of insulin - Old myocardial infarction 04/21/2018 09:15 [facility] [place] TYPE: Emergency COMPLAINT: - VOMITING/DIARRHEA DIAGNOSES: - Proteinuria, unspecified - Personal history of transient ischemic attack (TIA), and cerebral infarction without residual deficits - Other adjunct faculty for medical terminology (current) drug therapy - Personal history of nicotine dependence - MCC (current) use of insulin - Unspecified asthma, [...] Personal history of nicotine dependence - Other adjunct faculty for medical terminology (current) drug therapy - Diarrhea, unspecified - Allergy status to other drugs, medicaments and biological substances status - Heart failure, unspecified 04/15/2018 22:01 [facility] [place] TYPE: Emergency COMPLAINT: - LOWER BACK PAIN DIAGNOSES: - Proteinuria, unspecified - MCC (current) use of insulin - Unspecified asthma, uncomplicated - Type 2 diabetes mellitus without complications - Allergy status to other drugs, medicaments and biological substances status - Heart failure, unspecified - Unspecified abdominal pain - Personal history of nicotine dependence - Other adjunct faculty for medical terminology (current) drug therapy 03/08/2018 21:50 [facility] [place] TYPE: Emergency COMPLAINT: - CHEST PAIN 02/10/2018 03:43 [facility] [place] TYPE: Emergency COMPLAINT: - L FOOT PAIN/NON INJURY DIAGNOSES: - MCC (current) use of aspirin - Pain in left ankle and joints of left foot - Personal history of nicotine dependence - Allergy status to other drugs, medicaments and biological substances status - terminologist (current) use of insulin - Insomnia, unspecified - Personal history of transient ischemic attack (TIA), and cerebral infarction without residual deficits - Type 2 diabetes mellitus with diabetic neuropathy, unspecified - Sedative, hypnotic or anxiolytic dependence with withdrawal, unspecified 01/31/2018 09:56 [facility] [place] TYPE: Emergency COMPLAINT: - SOB DIAGNOSES: - terminologist (current) use of aspirin - Type 2 diabetes mellitus without complications - Shortness of breath - Heart failure, unspecified - Other adjunct faculty for medical terminology (current) drug therapy - Personal history of nicotine dependence - Allergy status to other drugs, medicaments and biological substances status 01/27/2018 15:57 [facility] [place] TYPE: Emergency COMPLAINT: - SOB INPATIENT VISIT TRACKING (12 MO.) [facility] DIAGNOSES: - Ischemic cardiomyopathy - Heart failure, unspecified - Atherosclerotic heart disease of rosebud coronary artery without angina pectoris - Precordial pain 03/08/2018 21:51 [facility] [place] TYPE: Medical Surgical COMPLAINT: - DEHYDRATION DIAGNOSES: - Other fpc (current) drug therapy - Dehydration - Major depressive disorder, single episode, unspecified - Hypertensive heart disease with heart failure - Adverse effect of loop [high-ceiling] diuretics, initial encounter - Allergy status to other drugs, medicaments and biological substances status - Acute kidney failure, unspecified - Other stimulant abuse, in remission - Type 2 diabetes mellitus with foot ulcer - Atherosclerotic heart disease of rosebud coronary artery without angina pectoris - Gangrene, not elsewhere classified - Personal history of nicotine dependence - MCC (current) use of insulin - Unspecified asthma, uncomplicated - Type 2 diabetes mellitus with diabetic peripheral angiopathy with gangrene - Personal history of transient ischemic attack (TIA), and cerebral infarction without residual deficits - MCC (current) use of aspirin - Old myocardial infarction - Chronic systolic (congestive) heart failure - Alcohol dependence, in remission - Non-pressure chronic ulcer of other part of right foot with unspecified severity - Anxiety disorder, unspecified 01/27/2018 18:37 [facility] [place] TYPE: Medical Surgical COMPLAINT: - CHF DIAGNOSES: - Atherosclerotic heart disease of rosebud coronary artery without angina pectoris - Type 2 diabetes mellitus with diabetic neuropathy, unspecified - Type 2 diabetes mellitus with foot ulcer - Hypertensive heart disease with heart failure - Non-pressure chronic ulcer of other part of right foot with unspecified severity - terminologist (current) use of insulin - Acute diastolic (congestive) heart failure - Other stimulant dependence, uncomplicated - Personal history of transient ischemic attack (TIA), and cerebral infarction without residual deficits - Nicotine dependence, cigarettes, uncomplicated - Heart failure, unspecified [email or web address]
[2018-12-01] MEDS ORDERED: DOXYCYCLINE HY100 MG PO (16:27)
[2018-12-01] MEDS ORDERED: HYDROXYZINE HCL25 MG PO (16:31)
== END 2018-12-01 20:27 | disposition home or self-care (01) ==
LOC: ED 16:04
DX: H53.9 Unspecified visual disturbance (principal); E11.9 Type 2 diabetes mellitus without complications; I50.9 Heart failure, unspecified; J45.909 Unspecified asthma, uncomplicated; Z86.73 Personal history of transient ischemic attack (TIA), and cerebral infarction without residual deficits; Z88.1 Allergy status to other antibiotic agents; Z79.4 Long term (current) use of insulin; Z79.899 Other long term (current) drug therapy
CPT/HCPCS: 36415; 85651; 99284

== ENCOUNTER 2018-12-02 11:49 | Emergency (ER) | payer OTHER ==
[~2018-12-02] VITALS: Ht 160 cm; Wt 85.7 kg
--- OUTSIDE RECORDS SUMMARY | ~2018-12-02 | XMS | Encounter Summary ---
Demographics + + + | Address | [address] | | | [place] [address] | + + + | Home Phone | | + + + | Preferred Language | Unknown | + + + | Marital Status | Unknown | + + + | Nondenominational Affiliation | Unknown | + + + | Race | Unknown | + + + | Ethnic Group | Unknown | + + + Author + + + | Author | [facility] | + + + | Organization | [facility] | + + + | Address | Unknown | + + + | Phone | Unavailable | + + + Support + + +---------+ + | Name | Relationship | Address | Phone | + + +---------+ + | Sachin Dwyer | ECON | Unknown | | + + +---------+ + Care Team Providers + +------+ + | Care Sed Middle School Teacher Name | Role | Phone | + +------+ + | [facility] | PCP | | + +------+ + Reason for Visit +--------+ + | Reason | Comments | +--------+ + | Other | Med List | +--------+ + Encounter Details +--------+ + + + + | Date | Type | Department | Care Team | Description | +--------+ + + + + | 11/14/ | Documentati | [facility] | Luis, | Other (Med List) | | 2019 | on Only | [address] | [place] | | | | | [address] | | | | | | [place] [address] | | | | | | [phone] | | | +--------+ + + + [...] | | | | | | [address] [place] | | | | | | [phone] | | | | | | | | +--------+---------+ + + + as of this encounter Visit Diagnoses Not on filein this encounter"
--- OUTSIDE RECORDS SUMMARY | ~2018-12-02 | XMS | Encounter Summary ---
Demographics + + + | Address | [address] | | | [place] [address] | + + + | Home Phone | | + + + | Preferred Language | Unknown | + + + | Marital Status | Unknown | + + + | Congregational Affiliation | Unknown | + + + | Race | Unknown | + + + | Ethnic Group | Unknown | + + + Author + + + | Author | [facility] | + + + | Organization | [facility] | + + + | Address | Unknown | + + + | Phone | Unavailable | + + + Support + + +---------+ + | Name | Relationship | Address | Phone | + + +---------+ + | Sachin Dwyer | ECON | Unknown | | + + +---------+ + Care Team Providers + +------+ + | Care Mixer Lever Operator Name | Role | Phone | [...] | | | | | [place] [address] | | | | | | [phone] | | | +--------+ + + + [...] | | | | | | [address] [place] | | | | | | [phone] | | | | | | | | +--------+---------+ + + + as of this encounter Visit Diagnoses Not on filein this encounter"
--- OUTSIDE RECORDS SUMMARY | ~2018-12-02 | XMS | Encounter Summary ---
Demographics + + + | Address | [address] | | | [place] [address] | + + + | Home Phone | | + + + | Preferred Language | Unknown | + + + | Marital Status | Unknown | + + + | Oriental Orthodox Affiliation | Unknown | + + + | Race | Unknown | + + + | Ethnic Group | Unknown | + + + Author + + + | Author | [facility] | + + + | Organization | [facility] | + + + | Address | Unknown | + + + | Phone | Unavailable | + + + Support + + +---------+ + | Name | Relationship | Address | Phone | + + +---------+ + | Sachin Dwyer | ECON | Unknown | | + + +---------+ + Care Team Providers + +------+ + | Care Pediatric Nurse Name | Role | Phone | [...] | | | | | [place] [address] | | | | | | [phone] | | | +--------+ + + + [...] | | | | | | [address] [place], [place] | | | | | | [id number] | | | | | | | [...]
--- OUTSIDE RECORDS SUMMARY | ~2018-12-02 | XMS | Encounter Summary ---
Demographics + + + | Address | [address] | | | [place] [address] | + + + | Home Phone | | + + + | Preferred Language | Unknown | + + + | Marital Status | Unknown | + + + | Caodaism Affiliation | Unknown | + + + | Race | Unknown | + + + | Ethnic Group | Unknown | + + + Author + + + | Author | [facility] | + + + | Organization | [facility] | + + + | Address | Unknown | + + + | Phone | Unavailable | + + + Support + + +---------+ + | Name | Relationship | Address | Phone | + + +---------+ + | Sachin Dwyer | ECON | Unknown | | + + +---------+ + Care Team Providers + +------+ + | Care Watch Repairer Name | Role | Phone | [...] | | | | | [place] [address] | | | | | | [phone] | | | +--------+ + + + [...] | | | | | | [address] [place], [place] | | | | | | [id number] | | | | | | | [...] stage IV | | | | | ([facility]) Nephrotic | | | | | range proteinuria | | | | | Secondary | | | | | hyperparathyroidism | | | | | ([facility]) Vitamin D | | | | | deficiency | | + +--------+ + + | Ferritin | Routin | Essential | Expected: | | | e | (primary) | 02/16/2019, Expires: | | | | hypertension CKD | 11/18/2019 | | | | (chronic kidney | | | | | disease), stage IV | | | | | ([facility]) Nephrotic | | | | | range proteinuria | | | | | Secondary | | | | | hyperparathyroidism | | | | | ([facility]) Vitamin D | | | | | deficiency | | + +--------+ + + | PTH intact no calcium | Routin | Essential | Expected: | | | e | (primary) | 02/16/2019, Expires: | | | | hypertension CKD | 11/18/2019 | | | | (chronic kidney | | | | | disease), stage IV | | | | | ([facility]) Nephrotic | | | | | range proteinuria | | | | | Secondary | | | | | hyperparathyroidism | | | | | ([facility]) Vitamin D | | | | | [...] stage IV | | | | | ([facility]) Nephrotic | | | | | range proteinuria | | | | | Secondary | | | | | hyperparathyroidism | | | | | ([facility]) Vitamin D | | | | | [...]
--- OUTSIDE RECORDS SUMMARY | ~2018-12-02 | XMS | Clinical Summary ---
Demographics + + + | Address | [address] | | | [place] [address] | + + + | Home Phone | | + + + | Preferred Language | Unknown | + + + | Marital Status | | + + + | Sabianist Affiliation | 1041 | + + + | Race | Unknown | + + + | Ethnic Group | Unknown | + + + Author + + + | Author | [facility] | | | and [place] | + + + | Organization | [facility] | | | [...] + | Sachin Dwyer | ECON | [address] | | | | | [place] | | + + + + + Care Team Providers + +------+ + | Care Health Communications Specialist Name | Role | Phone | [...] + +---------+------+------+-------+ | insulin glargine | Inject 25 Units | | 0 | | | Activ | | (LANTUS) 100 | under the skin | | | | | e | | units/mL injection | nightly. | | | | | | | (vial) | | | | | | | + + + +---------+------+------+-------+ | torsemide | Take 10 mg by mouth | | 0 | 07/1 | | Activ | | (DEMADEX) 20 mg | Daily. | | | 1/20 | | e | | tablet | | | | 18 | | | + + + +---------+------+------+-------+ | carvedilol (COREG) | Take 6.25 mg by | | 0 | 08/0 | | Activ | | 6.25 mg tablet | mouth 2 times daily. | | | 8/20 | | e [...] | | + + + +---------+------+------+-------+ | doxycycline | Take 50 mg by mouth | | 0 | | | Activ | | (MONODOX) 50 MG | 2 times daily. | | | | | e | | capsule | | | | | | | + + + +---------+------+------+-------+ | hydrOXYzine | Take 25 mg by mouth | | 0 | | | Activ | | pamoate [...] e | + + + +---------+------+------+-------+ | lisinopril | Take 1 tablet by | 90 | 1 | 08/1 | | Activ | | (PRINIVIL, ZESTRIL) | mouth Daily. | tablet | | 3/20 | | e | | 10 mg tablet | | | | 18 | | | + + + +---------+------+------+-------+ | SM ASPIRIN ADULT | Take 81 mg by mouth | | 0 | 09/2 | | Activ | | LOW STRENGTH 81 MG | Daily. | | | 8/20 | | e | | EC tablet [...] + + | Overview: Echocardiogram done at [facility] on 01/28/18 | | shows overall [...] + +---+ | Type 2 diabetes mellitus | | + +---+ | Asthma | | + +---+ | Heart disease | | + +---+ | Myocardial infarction | | + +---+ | CVA (cerebral vascular accident) | | + +---+ | Hypertension | | + +---+ Encounters +--------+ + + + + | Date | Type | Specialty | Care Team | Description | +--------+ + + + + | 11/14/ | Telephone | | Сергей Gaitan | Other (Testing, | | 2018 | | | MD Don | Labs) | +--------+ + + + + | [...] + + | Hemoglobin A1c | | | | | Screening | 5 | | | + + [...] Cancer | | | | | Screening (Ages | 7 | | | | 50-74) | | | | + + [...] | [employer] | MODA | [id number] | 01/28/20 | [phone] | | Medica | | MEDICAID HMO | HEALTH | | 18-Pre | 1 | | id | | | MDCD | | sent | | | | | | HMO [place] | | | | | | + +--------+ +--------+ +---------+--------+ | [facility] | I[facility] | [id number] | | | | [place] | | SERVICE | YELLOW | | [...] Person | Self | [birth year] | [address] | | | al/Fam | | 7 | [phone] | [place] | | | jeni | | | 4 (Home) | [address] | + +--------+ +--------+ + + Advance Directives Patient has advance care planning documents on file. For more information, please contact:[place] [address]
--- OUTSIDE RECORDS SUMMARY | ~2018-12-02 | XMS | Encounter Summary ---
Demographics + + + | Address | [address] | | | [place] [address] | + + + | Home Phone | | + + + | Preferred Language | Unknown | + + + | Marital Status | Unknown | + + + | Holiness Affiliation | Unknown | + + + | Race | Unknown | + + + | Ethnic Group | Unknown | + + + Author + + + | Author | [facility] | + + + | Organization | [facility] | + + + | Address | Unknown | + + + | Phone | Unavailable | + + + Support + + +---------+ + | Name | Relationship | Address | Phone | + + +---------+ + | Sachin Dwyer | ECON | Unknown | | + + +---------+ + Care Team Providers + +------+ + | Care Supervisor Lime Name | Role | Phone | + +------+ + | Manolo[facility]ibel | PCP | | + +------+ + Encounter Details +--------+ + + + + | Date | Type | Department | Care Team | Description | +--------+ + + + + | 11/11/ | Telephone | [facility] | Luis, | | | 2018 | | [address] | [address] | | | | | [address] | | | | | | [place] [address] | | | | | | [phone] | | | +--------+ + + + [...] | | | | | | [address] [place], [place] | | | | | | [address] | | | | | | | | +--------+---------+ + + + as of this encounter Visit Diagnoses Not on filein this encounter"
--- OUTSIDE RECORDS SUMMARY | ~2018-12-02 | XMS | Encounter Summary ---
Demographics + + + | Address | [address] | | | [place] [address] | + + + | Home Phone [...] + | Sachin Dwyer | ECON | [address] | | | | | [place] | | + + + + + Care Team Providers + +------+ + | Care Fly Winder Name | Role | Phone | + [...] | RN | | | | | [place], | | | | | | [place] [address] | | | | | | [phone] | | | +--------+ + + + [...]
--- OUTSIDE RECORDS SUMMARY | ~2018-12-02 | XMS | Clinical Summary ---
Demographics + + + | Address | [address] | | | [place] [address] | + + + | Home Phone | | + + + | Preferred Language | Unknown | + + + | Marital Status | Unknown | + + + | Temple Affiliation | Unknown | + + + | Race | Unknown | + + + | Ethnic Group | Unknown | + + + Author + + + | Author | [facility] | + + + | Organization | [facility] | + + + | Address | Unknown | + + + | Phone | Unavailable | + + + Support + + +---------+ + | Name | Relationship | Address | Phone | + + +---------+ + | Sachin Dwyer | ECON | Unknown | | + + +---------+ + Care Team Providers + +------+ + | Care Varnish Finisher Name | Role | Phone | + [...] | CKD (chronic kidney disease), stage IV ([facility]) | 11/17/2018 | + + + | Anemia of chronic renal failure, stage 4 (severe) ([facility]) | 11/17/2018 | + + [...] hyperparathyroidism | | | | | | ([facility]); Vitamin D | | | [...] | | | | | | [address] [place] | | | | | | [address] | | | | | | | [...] + + + | [facility] | [address] | [place] [address] | [phone] | | LABORATORY | [address] | | [...] | + + + + + | [facility] | [address] | [place] [address] | [phone] | | LABORATORY | [address] | | [...] +------+-------+ + | MEDICAID | [place] | [id number] | | | [address] | | | [address] | | | | [place] | | | [place] | | | | [address] | | | [place] [employer] | | | | | + +--------+ +------+-------+ + | [facility] | YELLOW | [id number] | | | | | PLANS | [...] | Self | [birth year] | Home: | [address] | | | al/Fam | | 1954 | [phone] [place] | | | jeni | | | [phone] | [address] | + +--------+ +--------+ + +
--- OUTSIDE RECORDS SUMMARY | ~2018-12-02 | XMS | Clinical Summary ---
Demographics + + + | Address | [address] | | | [place] [address] | + + + | Home Phone [...] [address] [place] | | | | | [address] | | + + + + + Care Team Providers + +------+ + | Care Advertising Analyst Name | Role | Phone | + +------+ + PP | Unavailable | + +------+ + Source Comments [facility] is fully live [facility] both [facility] and [facility] Allergies Not on File Medications Not on [...]
--- OUTSIDE RECORDS SUMMARY | ~2018-12-02 | XMS | Encounter Summary ---
Demographics + + + | Address | [address] | | | [place] [address] | + + + | Home Phone | | + + + | Preferred Language | Unknown | + + + | Marital Status | Unknown | + + + | Taoism Affiliation | Unknown | + + + | Race | Unknown | + + + | Ethnic Group | Unknown | + + + Author + + + | Author | [facility] | + + + | Organization | [facility] | + + + | Address | Unknown | + + + | Phone | Unavailable | + + + Support + + +---------+ + | Name | Relationship | Address | Phone | + + +---------+ + | Sachin Dwyer | ECON | Unknown | | + + +---------+ + Care Team Providers + +------+ + | Care General Dentist/Owner Name | Role | Phone | + [...] | | | | | [place], [place] [address] | | | | | | [phone] | | | +--------+ + + + [...] | | | | | | [address] [place] | | | | | | [address] | | | | | | | [...]
--- OUTSIDE RECORDS SUMMARY | ~2018-12-02 | XMS | Encounter Summary ---
Demographics + + + | Address | [address] | | | [place] [address] | + + + | Home Phone | | + + + | Preferred Language | Unknown | + + + | Marital Status | | + + + | Confucianist Affiliation | 1041 | + + + | Race | Unknown | + + + | Ethnic Group | Unknown | + + + Author + + + | Author | [facility] | | | and [place] | + + + | Organization | [facility] | | [...] + | Sachin Dwyer | ECON | [address] | | | | | [place] | | + + + + + Care Team Providers + +------+ + | Care Pellet Preparation Operator Name | Role | Phone | [...] + + | 11/14/ | Telephone | [facility] | Сергей Gaitan | Other (Testing, | | 2018 | | [address] | MD [address] | Labs) | | | | [place], | [address] [place] | | | | | [place] [address] | [place] [address] | | | | | [phone] | [phone] | | | | | | | [...] as of this encounter Plan of Treatment + +--------+ + + | Name | Priori | Associated Diagnoses | Order Schedule | | | ty | | | + +--------+ + + | Lipid Panel | Routin | Chronic combined | Expected: | | | e | systolic and | 11/14/2018, Expires: | | | | diastolic congestive | 11/14/2019 | | | | heart failure (HCC) | | | | | Myocardial | | | | | infarction, | | | | | unspecified CO type, | | | | | unspecified artery | | | | | (HCC) Essential | | | | | hypertension | | | | | Encounter for lipid | | | | | screening for | | | | | cardiovascular | | | | | disease | | + +--------+ + + | Comprehensive Metabolic Panel | Routin | Chronic combined | Expected: | | | e | systolic and | 11/14/2018, Expires: | | | | diastolic congestive | 11/14/2019 | | | | heart failure (HCC) | | | | | Myocardial | | | | | infarction, | | | | | unspecified CO type, | | | | | unspecified artery | | | | | (HCC) Essential | | | | | hypertension | | | | | Encounter for lipid | | | | | screening for | | | | | cardiovascular | | | | | disease | | + +--------+ + + | CBC with Differential | Routin | Chronic combined | Expected: | | | e | systolic and | 11/14/2018, Expires: | | | | diastolic congestive | 11/14/2019 | | | | heart failure (HCC) | | | | | Myocardial | | | | | infarction, | | | | | unspecified CO type, | | | | | unspecified artery | | | | | (HCC) Essential | | | | | hypertension | | | | | Encounter for lipid | | | | | screening for | | | | | cardiovascular | | | | | disease | | + +--------+ + + documented as of this encounter Visit Diagnoses + + | Diagnosis | + + | Chronic combined systolic and diastolic congestive heart failure (HCC) - Primary | | Chronic combined systolic and diastolic heart failure | + + | Myocardial infarction, unspecified CO type, unspecified artery (HCC) | + + | Essential hypertension Unspecified essential hypertension | + + | Encounter for lipid screening for cardiovascular disease | + + documented in this encounter"
--- OUTSIDE RECORDS SUMMARY | ~2018-12-02 | XMS | Encounter Summary ---
Demographics + + + | Address | [address] | | | [place] [address] | + + + | Home Phone | | + + + | Preferred Language | Unknown | + + + | Marital Status | | + + + | Sikh Affiliation | 1041 | + + + | Race | Unknown | + + + | Ethnic Group | Unknown | + + + Author + + + | Author | [facility] | | | and [place] | + + + | Organization | [facility] | | | [...] + | Sachin Dwyer | ECON | [address] | | | | | [place] | | + + + + + Care Team Providers + +------+ + | Care Rehabilitation Technician Name | Role | Phone | [...] W | Labs) | | | | [address], | [address] [place] | | | | | [place] [address] | [place] [address] | | | | | [phone] | [phone] | | | | | | | [...] infarction, | | | | | unspecified HI type, | | | | | unspecified [...] infarction, | | | | | unspecified HI type, | | | | | unspecified [...] infarction, | | | | | unspecified HI type, | | | | | unspecified [...]
--- OUTSIDE RECORDS SUMMARY | ~2018-12-02 | XMS | Encounter Summary ---
Demographics + + + | Address | [address] | | | [place] [address] | + + + | Home Phone | | + + + | Preferred Language | Unknown | + + + | Marital Status | Unknown | + + + | Pentecostal Affiliation | Unknown | + + + | Race | Unknown | + + + | Ethnic Group | Unknown | + + + Author + + + | Author | [facility] | + + + | Organization | [facility] | + + + | Address | Unknown | + + + | Phone | Unavailable | + + + Support + + +---------+ + | Name | Relationship | Address | Phone | + + +---------+ + | Sachin Dwyer | ECON | Unknown | | + + +---------+ + Care Team Providers + +------+ + | Care Storekeeper Steward Name | Role | Phone | [...] hypertension; Type 2 | | | | [facility] [address] | | diabetes mellitus | | | | [place], [place] [address] | | with complication, | | | | [phone] | | with long-term | | | [...] [place] | | | | | | [phone] | | | | | | | [...] | + + + + + | [facility] | [address] | [place] [address] | [phone] | | LABORATORY | Blvd. | | | + + + + + Renal function panel (11/12/2018 10:32 AM) + +---------+ + + | Component | Value | Ref Range | Performed At | + +---------+ + + | GLUCOSE | 132 (A) | 65 - 99 mg/dL | [facility] | | | | | LABORATORY | + +---------+ + + | BUN | 32 (A) | 8 - 25 mg/dL | [facility] | | | | | LABORATORY | [...] [facility] | [address] | [place] [address] | [phone] | | LABORATORY | Blvd. | | [...]
--- OUTSIDE RECORDS SUMMARY | ~2018-12-02 | XMS | Encounter Summary ---
Demographics + + + | Address | [address] | | | [place] [address] | + + + | Home Phone | | + + + | Preferred Language | Unknown | + + + | Marital Status | Unknown | + + + | Druze Affiliation | Unknown | + + + | Race | Unknown | + + + | Ethnic Group | Unknown | + + + Author + + + | Author | [facility] | + + + | Organization | [facility] | + + + | Address | Unknown | + + + | Phone | Unavailable | + + + Support + + +---------+ + | Name | Relationship | Address | Phone | + + +---------+ + | Sachin Dwyer | ECON | Unknown | | + + +---------+ + Care Team Providers + +------+ + | Care Auto Accessories Installer Name | Role | Phone | + +------+ + | [facility] | PCP | | + +------+ + Encounter Details +--------+---------+ + + + | Date | Type | Department | Care Team | Description | +--------+---------+ + + + | 11/17/ | Office | [facility] | James Pearce MD | Type 2 diabetes | | 2019 | Visit | [address] | [address] | mellitus with | | | | [address] | [address] [place], [place] | diabetic | | | | [place] [address] | [id number] | nephropathy, with | | | | [phone] | | long-term current | | | | | | use of insulin (HCC) | | | | | | (Primary Dx); CKD | | | | | | (chronic kidney | | | | | | disease), stage IV | | | | | | ([facility]); Anemia of | | | | | | chronic renal | | | | | | failure, stage 4 | | | | | | (severe) ([facility]); | | | | | | Nephrotic range | | | | | | proteinuria; | | | | | | Secondary | | | | | | hyperparathyroidism | | | | | | ([facility]); Vitamin D | | | | | | deficiency | +--------+---------+ + + + Social [...] PM PDT | + + + + in this encounter Instructions Patient Instructions - James Pearce MD - 11/17/2018 1:30 PM PDTDiscussions/Recommendatio ns: I discussed today with Ms. Martin the [...] She will strictly abide by a low salt diet and will avoid all kinds of NSAIDs for analge lorne. Also: I will not change any of her vasoactive meds today. She will report back to me her home BP readings in 1 week. At that time, I will decide w hether any change to his vasoactive regimen is warranted. I increased her Vitamin D3 (Cholecalciferol) to 4,000 units daily. I stopped her Ferrous Sulfate (replete Fe stores; has significant constipation) She will F/U with your office regularly. She will have a RFP, CBC, Iron studies, Ferritin, intact PTH, 69-nneymkn-ijwkzcr D, urin alysis, Urine total vrlvtlb-hd-cskxqxddjr ratio before she comes back in 3 months.in this en counter Progress Notes James Pearce MD - 11/17/2018 1:30 PM PDTFormatting of this note may be different from e original. Patient Active Problem List Diagnosis Precordial pain Essential hypertension Type 2 diabetes mellitus with complication, with long-term current use of insulin (HCC) Acute renal failure superimposed on stage 4 chronic kidney disease (HCC) Non-ischemic cardiomyopathy (HCC) Dear Colleague: Thank you for the opportunity to see Ms. Martin in hospital F/U today. As you are familiar wi th her case, I will not state her past history in detail. Briefly, she is a 63 y.o. female patient with past history as delineated above. she is here to be evaluated for her severe C KD & its associated complications. Her sCr & [...] foamy urine either. her baseline Creatinine is 2.1. There is no family history of renal genetic diseases such as PKD. she says that [...] from her most recent hospitalization, including the pratik joya summary. *I also reviewed with her the records received from your office; these were very informativ e. As in History of Present Illness & in Assessment. All the twelve systems were reviewed and were otherwise negative. Current Outpatient Prescriptions Medication [...] bilaterally. Extremities: Warm to touch with 1+ pitting left ankle edema. There is no [...] LABIRON 82.2 (A) 11/12/2018 LABPROT 4.982 08/07/2018 [id number] 8.5 (A) 11/12/2018 Assessment: Ms. Mario is a 63 y.o. female patient with stage IV CKD on a background of longstanding hyper tension. The most likely pathology here is that of diabetic nephropathy +/- hypertensive nep hrosclerosis/arteriolosclerosis. RENAL FUNCTION: Stable vs 07/2018 BLOOD PRESSURE: Unknown control at home BLOOD SUGAR: Reports it relatively controlled ELECTROLYTES: okay ANEMIA: Mild; but her Fe stores are well repleted VITAMIN D: To be checked thru your office PARATHYROID HORMONE: Mildly up URIC ACID: ok [...] She will strictly abide by a low salt diet and will avoid all kinds of NSAIDs for analge lorne. Also: I will not change any of her vasoactive meds today. I am unable to add/uptitrate her RAAS blockade at this time (history of hyperkalemia) She will report back to me her home BP readings in 1 week. At that time, I will decide w hether any change to his vasoactive regimen is warranted. I increased her Vitamin D3 (Cholecalciferol) to 4,000 units daily. I stopped her Ferrous Sulfate (replete Fe stores; has significant constipation) She will F/U with your office regularly. She will have a RFP, CBC, Iron studies, Ferritin, intact PTH, 30-cthqhkq-gyjechn D, urin alysis, Urine total hlfmuop-tv-bgyrzzqozo ratio before she comes back in 3 months. More than 20 minutes of this 40-minute visit was spent in education and counseling. Thank you Colleague for the opportunity to see this patient in consult today. Please do not hesitate to call me at any time with questions or concerns. Truly yours, James Pearce MD FACP ISMAEL COFFEY in this encounter Plan of Treatment +--------+---------+ + + + | Date | Type | Specialty | Care Team | Description | +--------+---------+ + + + | 02/09/ | Office | Nephrology | James Pearce MD | | | 2019 | Visit | | [address] | | | | | | [address] [place], [place] | | | | | | [address] | | | | | | | | +--------+---------+ + + + as of this encounter Visit Diagnoses + + | Diagnosis | + + | Type 2 diabetes mellitus with diabetic nephropathy, with long-term current use of | | insulin (HCC) - Primary | + + | CKD (chronic kidney disease), stage IV (HCC) | + + | Chronic kidney disease, Stage IV (severe) | + + | Anemia of chronic renal failure, stage 4 (severe) ([facility]) | + + | Nephrotic range proteinuria | + + | Proteinuria | + + | Secondary hyperparathyroidism (HCC) | + + | Secondary hyperparathyroidism (of renal origin) | + + | Vitamin D deficiency | + + | Unspecified vitamin D deficiency | + +
--- OUTSIDE RECORDS SUMMARY | ~2018-12-02 | XMS | Encounter Summary ---
Demographics + + + | Address | [address] | | | [place] [address] | + + + | Home Phone | | + + + | Preferred Language | Unknown | + + + | Marital Status | Unknown | + + + | Hindu Affiliation | Unknown | + + + | Race | Unknown | + + + | Ethnic Group | Unknown | + + + Author + + + | Author | [email or web address] | + + + | Organization | [facility] | + + + | Address | Unknown | + + + | Phone | Unavailable | + + + Support + + +---------+ + | Name | Relationship | Address | Phone | + + +---------+ + | Sachin Dwyer | ECON | Unknown | | + + +---------+ + Care Team Providers + +------+ + | Care Geothermal Production Manager Name | Role | Phone | [...] | | | | | [place], [place] [address] | | | | | | [phone] | | | +--------+ + + + [...] | | | | | | [address] [place] | | | | | | [address] | | | | | | | [...]
--- OUTSIDE RECORDS SUMMARY | ~2018-12-02 | XMS | Encounter Summary ---
Demographics + + + | Address | [address] | | | [place] [address] | + + + | Home Phone | | + + + | Preferred Language | Unknown | + + + | Marital Status | | + + + | Lutheran Affiliation | Unknown | + + + | Race | or | + + + | Ethnic Group | Not or | + + + Author + + + | Author | [facility] [employer] [facility] | + + + | Organization | [facility] [employer] [facility] | + + + | Address | Unknown | + + + | Phone | Unavailable | + + + Support + + + + + | Name | Relationship | Address | Phone | + + + + + | Angene Bill | ECON | [address] | | | | [address], [place] | | | | | [address] | | + + + + + Care Team Providers + +------+ + | Care Internet Specialist Name | Role | Phone | [...] Services | | | | Note-Transc | [address] | | | | | riberin | [place], [place] | | | | | | [address] | | | +--------+ + + + [...]
--- OUTSIDE RECORDS SUMMARY | ~2018-12-02 | XMS | Encounter Summary ---
Demographics + + + | Address | [address] | | | [place] [address] | + + + | Home Phone | | + + + | Preferred Language | Unknown | + + + | Marital Status | Unknown | + + + | Anabaptist Affiliation | Unknown | + + + | Race | Unknown | + + + | Ethnic Group | Unknown | + + + Author + + + | Author | [facility] | + + + | Organization | [facility] | + + + | Address | Unknown | + + + | Phone | Unavailable | + + + Support + + +---------+ + | Name | Relationship | Address | Phone | + + +---------+ + | Sachin Dwyer | ECON | Unknown | | + + +---------+ + Care Team Providers + +------+ + | Care Pesticide Applicator Name | Role | Phone | + [...] | | | | | [place] [address] | | | | | | [phone] | | | +--------+ + + + [...] | | | | | | [address] [place], [place] | | | | | | [address] | | | | | | | | +--------+---------+ + + + as of this encounter Visit Diagnoses Not on filein this encounter"
--- OUTSIDE RECORDS SUMMARY | ~2018-12-02 | XMS | Clinical Summary ---
Demographics + + + | Address | [address] | | | [place] [address] | + + + | Home Phone [...] + | Sachin Dwyer | ECON | [address] | | | | | [place] | | + + + + + Care Team Providers + +------+ + | Care Chemical Librarian Name | Role | Phone | + [...] + + | Overview: Echocardiogram done at [facility] on 01/28/18 | | shows [...] | [employer] | [employer] | [id number] | 01/28/20 | [phone] | | Medica | | MEDICAID HMO | HEALTH | | 18-Pre | 1 | | id | | | MDCD | | sent | | | | | | HMO [place] | | | | | | + +--------+ +--------+ +---------+--------+ | [facility] | IHS | [id number] | | | | [place] | | [...] Person | Self | [birth year] | [address] | | | al/Fam | | 7 | [phone] | [place] | | | jeni | | | 4 (Home) | [address] | + +--------+ +--------+ + + Advance Directives Patient has advance care planning documents on file. For more information, please contact:[facility] [place] [address]
--- OUTSIDE RECORDS SUMMARY | ~2018-12-02 | XMS | Encounter Summary ---
Demographics + + + | Address | [address] | | | [place] [address] | + + + | Home Phone [...] + | Sachin Dwyer | ECON | [address] | | | | | [place] | | + + + + + Care Team Providers + +------+ + | Care Cardiology Nurse Name | Role | Phone | [...] | RN | | | | | [place], | | | | | | [place] [address] | | | | | | [phone] | | | +--------+ + + + [...]
--- OUTSIDE RECORDS SUMMARY | ~2018-12-02 | XMS | Encounter Summary ---
Demographics + + + | Address | [address] | | | [place] [address] | + + + | Home Phone [...] Author | [facility] | + + + | Organization | [facility] [employer] [facility] | + + + | Address | Unknown | + + + | Phone | Unavailable | + + + Support + + + + + | Name | Relationship | Address | Phone | + + + + + | Angene Bill | ECON | [address] | | | | [address], [place] | | | | | [address] | | + + + + + Care Team Providers + +------+ + | Care Flatbed Driver Name | Role | Phone | [...] Services | | | | Note-Transc | [address] | | | | | [address] | [place], [place] | | | | | | [address] | | | +--------+ + + + [...]
--- OUTSIDE RECORDS SUMMARY | ~2018-12-02 | XMS | Encounter Summary ---
Demographics + + + | Address | [address] | | | [place] [address] | + + + | Home Phone | | + + + | Preferred Language | Unknown | + + + | Marital Status | Unknown | + + + | Druze Affiliation | Unknown | + + + | Race | Unknown | + + + | Ethnic Group | Unknown | + + + Author + + + | Author | [email or web address] | + + + | Organization | [facility] | + + + | Address | Unknown | + + + | Phone | Unavailable | + + + Support + + +---------+ + | Name | Relationship | Address | Phone | + + +---------+ + | Sachin Dwyer | ECON | Unknown | | + + +---------+ + Care Team Providers + +------+ + | Care Senior Insight Manager Name | Role | Phone | [...] hypertension; Type 2 | | | | [facility] [address] | | diabetes mellitus | | | | [place], [place] [address] | | with complication, | | | | [phone] | | with long-term | | | [...] [place] | | | | | | [id number] | | | | | | | [...] | + + + + + | [facility] | [address] | [place] [address] | [phone] | | LABORATORY | [address]vd[address] | | | + + + + + Renal function panel (11/12/2018 10:32 AM) + +---------+ + + | Component | Value | Ref Range | Performed At | + +---------+ + + | GLUCOSE | 132 (A) | 65 - 99 mg/dL | [facility] | | | | | LABORATORY | + +---------+ + + | BUN | 32 (A) | 8 - 25 mg/dL | [facility] | | | | | LABORATORY | [...] [facility] | [address] | [place] [address] | [phone] | | LABORATORY | [address] | | [...]
--- OUTSIDE RECORDS SUMMARY | ~2018-12-02 | XMS | Clinical Summary ---
Demographics + + + | Address | [address] | | | [place] [address] | + + + | Home Phone [...] [address] [place] | | | | | [address] | | + + + + + Care Team Providers + +------+ + | Care Application Systems Architect Name | Role | Phone | + +------+ + PP | Unavailable | + +------+ + Source Comments [facility] is fully live on both [facility] and [facility] Allergies Not on File Medications Not on [...]
--- OUTSIDE RECORDS SUMMARY | ~2018-12-02 | XMS | Clinical Summary ---
Demographics + + + | Address | [address] | | | [place] [address] | + + + | Home Phone | | + + + | Preferred Language | Unknown | + + + | Marital Status | Unknown | + + + | Mormon Affiliation | Unknown | + + + | Race | Unknown | + + + | Ethnic Group | Unknown | + + + Author + + + | Author | [facility] | + + + | Organization | [facility] | + + + | Address | Unknown | + + + | Phone | Unavailable | + + + Support + + +---------+ + | Name | Relationship | Address | Phone | + + +---------+ + | Sachin Dwyer | ECON | Unknown | | + + +---------+ + Care Team Providers + +------+ + | Care Reel Hooker Name | Role | Phone | + [...] (chronic kidney disease), stage IV ([facility]) | 11/17/2018 | + + + | Anemia of chronic renal failure, stage 4 (severe) ([facility]) | 11/17/2018 | + + [...] | | | | | | [address] [place] | | | | | | [address] | | | | | | | [...] + + + | [facility] | [address] | [place] [address] | [phone] | | LABORATORY | [address] | | [...] | + + + + + | [facility] | [address] | [place] [address] | [phone] | | LABORATORY | [address] | | [...] +------+-------+ + | MEDICAID | [place] | [id number] | | | [address] | | | [address] | | | | [place] | | | [place] | | | | [address] | | | [employer] | | | | | + +--------+ +------+-------+ + | [facility] | YELLOW | [id number] | | | | | PLANS | [...] | Self | [birth year] | Home: | [address] | | | al/Fam | | 1954 | [phone] | [place] | | | jeni | | | [phone] | [address] | + +--------+ +--------+ + +
--- OUTSIDE RECORDS SUMMARY | ~2018-12-02 | XMS | Encounter Summary ---
Demographics + + + | Address | [address] | | | [place] [address] | + + + | Home Phone | | + + + | Preferred Language | Unknown | + + + | Marital Status | Unknown | + + + | Restorationism Affiliation | Unknown | + + + | Race | Unknown | + + + | Ethnic Group | Unknown | + + + Author + + + | Author | [facility] [facility] | + + + | Organization | [facility] | + + + | Address | Unknown | + + + | Phone | Unavailable | + + + Support + + +---------+ + | Name | Relationship | Address | Phone | + + +---------+ + | Sachin Dwyer | ECON | Unknown | | + + +---------+ + Care Team Providers + +------+ + | Care Corporate Travel Consultant Name | Role | Phone | [...] | | [address] | [address] [place], [place] | diabetic | | | | [place] [address] | [id number] | nephropathy, with | | | | [phone] | | long-term current | | | | | | use of insulin (HCC) | | | | | | (Primary Dx); CKD | | | | | | (chronic kidney | | | | | | disease), stage IV | | | | | | ([facility]); Anemia of | | | | | | chronic renal | | | | | | failure, stage 4 | | | | | | (severe) ([facility]); | | | | | | Nephrotic range | | | | | | proteinuria; | | | | | | Secondary | | | | | | hyperparathyroidism | | | | | | ([facility]); Vitamin D | | | [...] RFP, CBC, Iron studies, Ferritin, intact PTH, 59-xtugzgs-eswbvhc D, urin alysis, Urine total uaimlaf-vi-ymsudnblmg ratio before she comes back in 3 [...] with breakfa st. 30 tablet 2 fexofenadine (TAIN) 180 MG tablet Take 180 mg by [...] LABIRON 82.2 (A) 11/12/2018 LABPROT 4.982 08/07/2018 [id number] 8.5 (A) 11/12/2018 Assessment: Ms. Mario is [...] RFP, CBC, Iron studies, Ferritin, intact PTH, 22-cjwudgg-ttfkljh D, urin alysis, Urine total ltqtzqc-cm-ijsjdqmzfw ratio before she comes back in 3 [...] | | | | | | [address] [place], [place] | | | | | | [address] | | | | | | | [...] 4 (severe) ([facility]) | + + | Nephrotic range proteinuria | + + | Proteinuria | + + | Secondary hyperparathyroidism (HCC) | + + | Secondary hyperparathyroidism (of renal origin) | + + | Vitamin D deficiency | + + | Unspecified vitamin D deficiency | + +
[~2018-12-02 11:49] MED LIST changes: +HYDROXYZINE HCL25 MG PO
--- OUTSIDE RECORDS SUMMARY | 2018-12-02 12:02 | XMS ---
PreManage Notification: JOSE G COX Security Mixer Tender Events No recent Security Events currently on file CRITERIA MET - 6 ED Visits in 6 Months - [facility] - Has Care Guidelines - PDMP - [facility] - 2 Visits in 30 Days CARE PROVIDERS ADAMARIS HENNING Physician Automatic I Threading Machine Feeder: Surgical 04/21/2018-Current PHONE: Unknown Neo has no Care Guidelines for this patient. Care History Medical/Surgical 04/21/2018 [facility] - PATIENT HAS [employer] PROVIDER: - PLEASE REFER PATIENT TO [facility]. - IF PATIENT CALLS EARLY IN THE AM TO [facility] PATIENT CAN BE SEEN SAME DAY FOR ANY NON EMERGENT MEDICAL NEEDS. - [employer] CONTACT # [phone] - PATIENT HAS A LONG EXTENSIVE HX WITH METHAMPHETAMINE USAGE. - PHYSICIAN DISCRECTION- TOX SCREEN BEFORE TREATMENT. Care Recommendation: - USE EXTREME CAUTION IN GIVING NARCOTICS TO THIS PATIENT. - Avoid Discharge Narcotic prescriptions if at all possible. Please use clinical judgement. E.D. VISIT COUNT (12 MO.) [address] [facility] TOTAL 15 NOTE: Visits indicate total known visits. ED/UCC VISIT TRACKING (12 MO.) 12/02/2018 11:51 [facility] [place] TYPE: Emergency COMPLAINT: - LOSS OF CONCIOUSSNESS/MULTIPLE COMPLAINTS 12/01/2018 16:06 [facility] [place] TYPE: Emergency [...] and cerebral infarction without residual deficits - [facility] (current) use of insulin - Puncture wound without foreign body, right foot, initial encounter - Personal history of nicotine dependence - Type 2 diabetes mellitus without complications - Other snf (current) drug therapy - oil heaterman (current) use of aspirin 10/01/2018 19:00 [facility] [place] TYPE: Emergency COMPLAINT: - ABD PAIN DIAGNOSES: - Left lower quadrant pain - Heart failure, unspecified - Old myocardial infarction - oil heaterman (current) use of insulin - Unspecified asthma, uncomplicated - oil heaterman (current) use of aspirin - Type 2 diabetes mellitus without complications - Other termite treater (current) drug therapy - Cellulitis of abdominal wall - Allergy status to other drugs, medicaments and biological substances status 09/09/2018 07:55 [facility] [place] [place] TYPE: Emergency COMPLAINT: - COUGH DIAGNOSES: - Personal history of nicotine dependence - Allergy status to other drugs, medicaments and biological substances status - Cough - Type 2 diabetes mellitus without complications - Pneumonia, unspecified organism - Other snf (current) drug therapy - [facility] (current) use of insulin - Chronic sinusitis, unspecified 08/21/2018 15:13 [facility] [place] [place] TYPE: Emergency COMPLAINT: - DIFFICULTY BREATHING DIAGNOSES: - Old myocardial infarction - oil heaterman (current) use of insulin - Other termite treater (current) drug therapy - Heart failure, unspecified [...] asthma, uncomplicated - Chest pain, unspecified - [facility] (current) use of insulin - Type 2 diabetes mellitus without complications - Allergy status to other drugs, medicaments and biological substances status - Other termite treater (current) drug therapy - Viral infection, unspecified 05/13/2018 22:31 [facility] [place] TYPE: Emergency COMPLAINT: - R HAND NUMBNESS DIAGNOSES: - Allergy status to other drugs, medicaments and biological substances status - Personal history of nicotine dependence - Hyperkalemia - Heart failure, unspecified - Anesthesia of skin - Paresthesia of skin - Other snf (current) drug therapy - Unspecified asthma, uncomplicated - Other chronic pain - Type 2 diabetes mellitus without complications - [facility] (current) use of insulin - Old myocardial infarction 04/21/2018 09:15 [facility] [place] TYPE: Emergency COMPLAINT: - VOMITING/DIARRHEA DIAGNOSES: - Proteinuria, unspecified - Personal history of transient ischemic attack (TIA), and cerebral infarction without residual deficits - Other snf (current) drug therapy - Personal history of nicotine dependence - [facility] (current) use of insulin - Unspecified asthma, [...] Personal history of nicotine dependence - Other termite treater (current) drug therapy - Diarrhea, unspecified - Allergy status to other drugs, medicaments and biological substances status - Heart failure, unspecified 04/15/2018 22:01 [facility] [place] TYPE: Emergency COMPLAINT: - LOWER BACK PAIN DIAGNOSES: - Proteinuria, unspecified - [facility] (current) use of insulin - Unspecified asthma, uncomplicated - Type 2 diabetes mellitus without complications - Allergy status to other drugs, medicaments and biological substances status - Heart failure, unspecified - Unspecified abdominal pain - Personal history of nicotine dependence - Other snf (current) drug therapy 03/08/2018 21:50 [facility] [place] TYPE: Emergency COMPLAINT: - CHEST PAIN 02/10/2018 03:43 [facility] [place] TYPE: Emergency COMPLAINT: - L FOOT PAIN/NON INJURY DIAGNOSES: - [facility] (current) use of aspirin - Pain in left ankle and joints of left foot - Personal history of nicotine dependence - Allergy status to other drugs, medicaments and biological substances status - oil heaterman (current) use of insulin - Insomnia, unspecified - Personal history of transient ischemic attack (TIA), and cerebral infarction without residual deficits - Type 2 diabetes mellitus with diabetic neuropathy, unspecified - Sedative, hypnotic or anxiolytic dependence with withdrawal, unspecified 01/31/2018 09:56 [facility] [place] TYPE: Emergency COMPLAINT: - SOB DIAGNOSES: - oil heaterman (current) use of aspirin - Type 2 diabetes mellitus without complications - Shortness of breath - Heart failure, unspecified - Other snf (current) drug therapy - Personal history of nicotine dependence - Allergy status to other drugs, medicaments and biological substances status 01/27/2018 15:57 [facility] [place] TYPE: Emergency COMPLAINT: - SOB INPATIENT VISIT TRACKING (12 MO.) 08/05/2018 10:[address] [facility] TYPE: Cardiology DIAGNOSES: - Ischemic cardiomyopathy - Heart failure, unspecified - Atherosclerotic heart disease of [place] coronary artery without angina pectoris - Precordial pain 03/08/2018 21:51 [facility] [place] TYPE: Medical Surgical COMPLAINT: - DEHYDRATION DIAGNOSES: - Other termite treater (current) drug therapy - Dehydration - Major depressive disorder, single episode, unspecified - Hypertensive heart disease with heart failure - Adverse effect of loop [high-ceiling] diuretics, initial encounter - Allergy status to other drugs, medicaments and biological substances status - Acute kidney failure, unspecified - Other stimulant abuse, in remission - Type 2 diabetes mellitus with foot ulcer - Atherosclerotic heart disease of [place] coronary artery without angina pectoris - Gangrene, not elsewhere classified - Personal history of nicotine dependence - oil heaterman (current) use of insulin - Unspecified asthma, uncomplicated - Type 2 diabetes mellitus with diabetic peripheral angiopathy with gangrene - Personal history of transient ischemic attack (TIA), and cerebral infarction without residual deficits - [facility] (current) use of aspirin - Old myocardial infarction - Chronic systolic (congestive) heart failure - Alcohol dependence, in remission - Non-pressure chronic ulcer of other part of right foot with unspecified severity - Anxiety disorder, unspecified 01/27/2018 18:37 [facility] [place] TYPE: Medical Surgical COMPLAINT: - CHF DIAGNOSES: - Atherosclerotic heart disease of [place] coronary artery without angina pectoris - Type 2 diabetes mellitus with diabetic neuropathy, unspecified - Type 2 diabetes mellitus with foot ulcer - Hypertensive heart disease with heart failure - Non-pressure chronic ulcer of other part of right foot with unspecified severity - oil heaterman (current) use of insulin - Acute diastolic (congestive) heart failure - Other stimulant dependence, uncomplicated - Personal history of transient ischemic attack (TIA), and cerebral infarction without residual deficits - Nicotine dependence, cigarettes, uncomplicated - Heart failure, unspecified [email or web address]
--- NOTE | 2018-12-02 16:03 | EKG ---
[facility] [address] [place], [place] [address] Signed Normal sinus rhythm Left axis deviation Abnormal ECG When compared with ECG of 01-DEC-2018 15:48, (Unconfirmed) No significant change was found Confirmed by VARUN MAO MD ([id number]) on 12/02/2018 4:02:55 PM Electronically Signed By: VARUN MAO MD 12/02/18 1603 PATIENT NAME: JOSE G COX Electrocardiogram DATE OF : 59 PHYSICIAN: VARUN MAO MD REPORT #: [id number] REPORT IS CONFIDENTIAL AND NOT TO BE RELEASED WITHOUT AUTHORIZATION
== END 2018-12-02 20:00 | disposition short-term general hospital (02) ==
LOC: ED 11:49
DX: R42 Dizziness and giddiness (principal); H53.9 Unspecified visual disturbance; D64.9 Anemia, unspecified; E11.22 Type 2 diabetes mellitus with diabetic chronic kidney disease; N18.9 Chronic kidney disease, unspecified; J45.909 Unspecified asthma, uncomplicated; I25.2 Old myocardial infarction; I50.9 Heart failure, unspecified; Z86.73 Personal history of transient ischemic attack (TIA), and cerebral infarction without residual deficits; Z88.1 Allergy status to other antibiotic agents; Z79.4 Long term (current) use of insulin
CPT/HCPCS: 70450; 80053; 84484; 85025; 93005; 93010; 96360; 96361; 99285-25; J7040

== ENCOUNTER 2019-04-21 08:54 | Emergency (ER) | payer OTHER ==
[~2019-04-21] VITALS: Ht 160 cm; Wt 85.7 kg
--- OUTSIDE RECORDS SUMMARY | ~2019-04-21 | XMS | Encounter Summary ---
Demographics + + + | Address | [address] | | | [place] [address] | + + + | Home Phone | | + + + | Preferred Language | Unknown | + + + | Marital Status | | + + + | Jain Affiliation | [id number] | + + + | Race | Unknown | + + + | Ethnic Group | Unknown | + + + Author + + + | Author | [facility] | | | and [place] | + + + | Organization | [facility] | | | and [place] | + + + | Address | Unknown | + + + | Phone | Unavailable | + + + Support + + + + + | Name | Relationship | Address | Phone | + + + + + | ABBEY COX | ELVIRA | Unknown | | + + + + + | Sachin Dwyer | ECON | [address] | | | | | [place] | | + + + + + | Abbey Cox | ECON | Unknown | | + + + + + Care Team Providers + +------+ + | Care Die Casting Machine Operator Name | Role | Phone | + +------+ + | Bernadette Armendariz PA-C | BEBE | Unavailable | + +------+ + Encounter Details +--------+ + + + + | Date | Type | Department | Care Team | Description | +--------+ + + + + | 03/10/ | Orders Only | [facility] | James Pearce MD | | | 2019 | | NEPHROLOGY [place] | [address] [facility] | | | | | [address] | [address] [facility] [place] | | | | | [facility] [address] | [id number] | | | | | [place], [place] | | | | | | [address] | | | | | | [phone] | | | +--------+ + + + [...] + +---------+ + | Alcohol Use | Drinks/We | oz/Week | Comments | | | ek | | | + + +---------+ + | No [...] Description | +--------+---------+ + + + | 06/22/ | Office | Nephrology | James Pearce MD | | | 2019 | Visit | | [address] [facility] | | | | | | [address] [place] | | | | | | [address] | | | | | | | | +--------+---------+ + + + documented as of this encounter Visit Diagnoses Not on filedocumented in this encounter"
--- OUTSIDE RECORDS SUMMARY | ~2019-04-21 | XMS | Clinical Summary ---
Demographics + + + | Address | [address] | | | [place] [address] | + + + | Home Phone | | + + + | Preferred Language | Unknown | + + + | Marital Status | | + + + | Gnosticism Affiliation | 1041 | + + + | Race | Unknown | + + + | Ethnic Group | Unknown | + + + Author + + + | Author | [facility] | | | and [place] | + + + | Organization | [facility] | | | and [...] + | Sachin Dwyer | ECON | [address] | | | | | [place] | | + + + + + | Abbey Cox | ECON | Unknown | | + + + + + Care Team Providers + +------+ + | Care Manager Non Profit Name | Role | Phone | + +------+ + | Bernadette Armendariz PA-C | [facility]BE | Unavailable | + +------+ + Allergies + + + + + + | Active Allergy | Reactions | Severity | Noted | Comments | | | | | Date | | + + + + + + | Quinine | Other (See Comments) | | 02/18/20 | hallucinations | | | | | 18 | | + + + + + + Medications + + + +---------+------+------+-------+ | Medication | Sig | Dispensed | Refills | Star | End | Statu | | | | | | t | Date | s | | | | | | Date | | | + + + +---------+------+------+-------+ | carvedilol (COREG) | Take 6.25 mg by | | 0 | 08/0 | | Activ | | 6.25 mg tablet | mouth 2 times daily. | | | 8 | | e | | | | | | 18 | | | + + + +---------+------+------+-------+ | acetaminophen | Take 650 mg by mouth | | 0 | | | Activ | | (TYLENOL) 325 mg | every 4 hours as | | | | | e | | tablet | needed for Pain. | | | | | | + + + +---------+------+------+-------+ | melatonin 1 mg | Take 1 mg by mouth | | 0 | | | Activ | | TABS | nightly as needed. | | | | | e | + + + +---------+------+------+-------+ | SM ASPIRIN ADULT | Take 81 mg by mouth | | 0 | 09/2 | | Activ | | LOW STRENGTH 81 MG | Daily. | | | 03/10 | | e | | EC tablet | | | | 18 | | | + + + +---------+------+------+-------+ | fexofenadine | Take 180 mg by mouth | | 0 | | | Activ | | (TIAN ALLERGY) | as needed. | | | | | e | | 180 mg tablet | | | | | | | + + + +---------+------+------+-------+ | atorvaSTATin | Take 1 tablet by | 90 | 3 | 02/ | | Activ | | (LIPITOR) 10 mg | mouth nightly. | tablet | | 5/20 | | e | | tablet | | | | 19 | | | + + + +---------+------+------+-------+ | albuterol 2.5 mg/3 | Take 2.5 mg by | | 0 | | | Activ | | mL nebulizer | nebulization every 6 | | | | | e | | solution | (six) hours as | | | | | | | | needed for Wheezing. | | | | | | + + + +---------+------+------+-------+ | albuterol 90 | inhale 2 to 3 puffs | | 0 | 08/22 | | Activ | | mcg/puff inhaler | by mouth UP TO every | | | 04/10 | | e | | | 2 hours if needed | | | 19 | | | + + + +---------+------+------+-------+ | amLODIPine | Take 1 tablet by | | 0 | 11/19 | 11/19 | Activ | | (NORVASC) 5 mg | mouth daily. | | | 01/08 | 12/08 | e | | tablet | | | | 19 | 20 | | + + + +---------+------+------+-------+ | ascorbic acid | Take 1 tablet by | | 0 | 07/23 | 07/23 | Activ | | (VITAMIN C) 500 MG | mouth daily. | | | 08/10 | 08/10 | e | | tablet | | | | 19 | 20 | | + + + +---------+------+------+-------+ | cholecalciferol | Take 2,000 Units by | | 0 | /2 | / | Activ | | (CHOLECALCIFEROL) | mouth daily. | | | 08/10 | 08/10 | e | | 2000 units TABS | | | | 19 | 20 | | + + + +---------+------+------+-------+ | FEROSUL 325 (65 | | | 0 | 02/1 | | Activ | | Fe) MG tablet | | | | 9/20 | | e | | | | | | 19 | | | + + + +---------+------+------+-------+ | fluticasone | | | 0 | 02/1 | | Activ | | (FLONASE) 50 | | | | 9/20 | | e | | mcg/nasal spray | | | | 19 | | | + + + +---------+------+------+-------+ | hydrALAZINE | | | 0 | 03/2 | | Activ | | (APRESOLINE) 25 mg | | | | 0/20 | | e | | tablet | | | | 19 | | | + + + +---------+------+------+-------+ | B-D ULTRAFINE III | | | 0 | 2 | | Activ | | SHORT PEN 31G X 8 MM | | | | 03/10 | | e | | | | | | 19 | | | + + + +---------+------+------+-------+ | losartan (COZAAR) | Take 1 tablet by | | 0 | 11/19 | 11/19 | Activ | | 100 MG tablet | mouth daily. | | | 01/08 | 12/08 | e | | | | | | 19 | 20 | | + + + +---------+------+------+-------+ | | Inhale 2 puffs into | | 0 | | | Activ | | mometasone-formotero | the lungs 2 (two) | | | | | e | | l (DULERA) 100-5 | times daily. | | | | | | | mcg/puff inhaler | | | | | | | + + + +---------+------+------+-------+ | omeprazole | Take 20 mg by mouth | | 0 | | | Activ | | (PRILOSEC) 20 mg | every morning before | | | | | e | | capsule | breakfast. | | | | | | + + + +---------+------+------+-------+ | ondansetron | | | 0 | 01/1 | | Activ | | (ZOFRAN ODT) 4 mg | | | | 11/08 | | e | | disintegrating | | | | 19 | | | | tablet | | | | | | | + + + +---------+------+------+-------+ | predniSONE | take 2 tablets by | | 0 | 02/1 | | Activ | | (DELTASONE) 20 mg | mouth once daily for | | | 04/10 | | e | | tablet | 5 days | | | 19 | | | + + + +---------+------+------+-------+ | traMADol (ULTRAM) | Take 1 tablet by | | 0 | 01/2 | | Activ | | 50 mg tablet | mouth every 6 (six) | | | /20 | | e | | | hours as needed. | | | 19 | | | + + + +---------+------+------+-------+ | insulin glargine | Inject 9 Units into | | 0 | | | Activ | | (LANTUS SOLOSTAR) | the skin every | | | | | e | | 100 units/mL | morning. | | | | | | | injection (pen) | | | | | | | + + + +---------+------+------+-------+ Active Problems + + + | Problem | Noted Date | + + + | Falls | 12/02/2018 | + + + | Right sided weakness | 12/02/2018 | + + + | Visual changes | 12/02/2018 | + + + | Anemia of chronic renal failure, stage 4 (severe) | 11/17/2018 | + + + | CKD (chronic kidney disease), stage IV | 11/17/2018 | + + + | Nephrotic range proteinuria | 11/17/2018 | + + + | Secondary hyperparathyroidism | 11/17/2018 | + + + | Vitamin D deficiency | 11/17/2018 | + + + | Acute renal failure superimposed on stage 4 chronic kidney | 08/10/2018 | | disease | | + + + | Non-ischemic cardiomyopathy | 08/10/2018 | + + + | Precordial pain | 07/18/2018 | + + + | CHF (congestive heart failure) | | + + + + + | Overview: Echocardiogram done at [facility] on 01/28/18 | | shows overall left [...] + +---+ | Type 2 diabetes mellitus with diabetic nephropathy, with | | | long-term current use of insulin | | + +---+ | Asthma | | + +---+ | Heart disease | | + +---+ | Myocardial infarction | | + +---+ | CVA (cerebral vascular accident) | | + +---+ | Essential (primary) hypertension | | + +---+ Encounters +--------+ + + + + | Date | Type | Specialty | Care Team | Description | +--------+ + + + + | 03/18/ | Orders Only | Nephrology | James Pearce MD | Essential (primary) | | 2019 | | | | hypertension | | | | | | (Primary Dx); | | | | | | Secondary | | | | | | hyperparathyroidism | | | | | | (HCC); CKD (chronic | | | | | | kidney disease), | | | | | | stage IV (HCC); | | | | | | Anemia of chronic | | | | | | renal failure, stage | | | | | | 4 (severe) ([facility]); | | | | | | Vitamin D deficiency | +--------+ + + + + | 03/17/ | Orders Only | Nephrology | James Pearce MD | Essential (primary) | | 2019 | | | | hypertension; | | | | | | Chronic kidney | | | | | | disease, stage IV | | | | | | (severe) ([facility]); | | | | | | Proteinuria; | | | | | | Secondary | | | | | | hyperparathyroidism | | | | | | of renal origin | | | | | | ([facility]); Vitamin D | | | | | | deficiency | +--------+ + + + + | 03/16/ | Office | Nephrology | James Pearce MD | CKD (chronic kidney | | 2019 | Visit | | | disease), stage IV | | | | | | ([facility]) (Primary Dx); | | | | | | Vitamin D | | | | | | deficiency; Anemia | | | | | | of chronic renal | | | | | | failure, stage 4 | | | | | | (severe) ([facility]); | | | | | | Secondary | | | | | | hyperparathyroidism | | | | | | ([facility]); 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, with | | | | | | long-term current | | | | | | use of insulin | | | | | | ([facility]); Essential | | | | | | (primary) | | | | | | hypertension | +--------+ + + + + | 03/16/ | Orders Only | Nephrology | James Pearce MD | Essential (primary) | | 2018 | | | | hypertension; Type 2 | | | | | | diabetes mellitus | | | | | | with complications | | | | | | ([facility]); Acute kidney | | | | | | failure ([facility]) | +--------+ + + + + | 03/16/ | Documentati | Nephrology | Luis, | Results (03/13/19) | | 2019 | on | | Maninder Suarez | | | | | | Patient Flow Coordinator | | +--------+ + + + + | 03/11/ | Orders Only | Nephrology | James Pearce MD | Essential (primary) | | 2018 | | | | hypertension | | | | | | (Primary Dx); CKD | | | | | | (chronic kidney | | | | | | disease), stage IV | | | | | | ([facility]); Nephrotic | | | | | | range proteinuria; | | | | | | Secondary | | | | | | hyperparathyroidism | | | | | | ([facility]); Vitamin D | | | | | | deficiency | +--------+ + + + + | 03/11/ | Orders Only | Nephrology | James Pearce MD | Essential | | 2018 | | | | hypertension | | | | | | (Primary Dx); Type 2 | | | | | | diabetes mellitus | | | | | | with complication, | | | | | | with long-term | | | | | | current use of | | | | | | insulin (HCC); Acute | | | | | | renal failure | | | | | | superimposed on | | | | | | stage 4 chronic | | | | | | kidney disease, | | | | | | unspecified acute | | | | | | renal failure type | | | | | | (HCC) | +--------+ + + + + | 03/10/ | Orders Only | Nephrology | James Pearce MD | | | 2018 | | | | | +--------+ + + + + | 03/10/ | Orders Only | Nephrology | James Pearce MD | | | 2018 | | | | | +--------+ + + + + | 02/23/ | Orders Only | | Provider, | Essential (primary) | | 2019 | | | Historical, MD | hypertension; Type 2 | | | | | | diabetes mellitus | | | | | | with complications | | | | | | ([facility]); Acute kidney | | | | | | failure ([facility]); | | | | | | Chronic kidney | | | | | | disease, stage IV | | | | | | (severe) ([facility]); | | | | | | Proteinuria; | | | | | | Secondary | | | | | | hyperparathyroidism | | | | | | of renal origin | | | | | | ([facility]); Vitamin D | | | | | | deficiency | +--------+ + + + + from Last 3 Months Family History + + +------+ + | Medical History | Relation | Name | Comments | + + +------+ + | Diabetes | Brother | | | + + +------+ + | Heart attack | Father | | | + + +------+ + | Heart defect | Son | | at 7 days had heart surgery | + + +------+ + + +------+ + + | Relation | Name | Status | Comments | + +------+ + + | Brother | | | | + +------+ + + | Brother | | | | + +------+ + + | Father | | | | + +------+ + + | Father | | | | + +------+ + + | Son | | | | + +------+ + + | Son | | | | + +------+ + + Social History + +-------+ +--------+ [...] recent travel history available. | + + Last Filed Vital Signs + + + + | Vital Sign | Reading | Time Taken | + + + + | Blood Pressure | 158/62 | 03/16/20191445 PDT | + + + + | Pulse | 62 | 03/16/20191445 PDT | + + + + | Temperature | 36.8 C (98.2 F) | 12/04/20181103 PDT | + + + + | Respiratory Rate | 20 | 12/04/20181103 PDT | + + + + | Oxygen Saturation | - | - | + + + + | Inhaled Oxygen | - | - | | Concentration | | | + + + + | Weight | 86.9 kg (191 lb 8 | 03/16/20191445 PDT | | | oz) | | + + + + | Height | 160 cm (5' 3") | 03/16/20191445 PDT | + + + + | Body Mass Index | 33.92 | 03/16/20191445 PDT | + + + + Plan of Treatment +--------+---------+ + + + | Date | Type | Specialty | Care Team | Description | +--------+---------+ + + + | 06/22/ | Office | Nephrology | James Pearce MD | | | 2019 | Visit | | [address] [facility] | | | | | | [address] [place], [place] | | | | | | [address] | | | | | | | | +--------+---------+ + + + + + + + + | Health Maintenance | Due Date | Last Done | Comments | + + + + + | Diabetic Eye Exam | | | | | | 5 | | | + + + + + | Diabetic Foot Exam | | | | | | 5 | | | + + + + + | Cervical Cancer | | | | | Screening (Pap) | 7 | | | + + + + + | Vaccine: | | 05/30/2000 | | | Pneumococcal 19-64 | 1 | | | | Highest Risk (2 of 3 | | | | | - PCV13) | | | | + + + + + | Colorectal Cancer | | | | | Screening | 7 | | | | (Colonoscopy) | | | | + + + + + | Vaccine: Zoster (1 | | | | | of 2) | 7 | | | + + + + + | Breast Cancer | | | | | Screening | 2 | | | + + + + + | Statin Therapy | | | | | (optimal intensity) | 8 | | | + + + + + | Vaccine: Influenza | | 05/08/2018, 04/16/2013, | | | (#1) | 9 | 03/06/2012, Additional history | | | | | exists | | + + + + + | Hemoglobin A1c | | 12/03/2018, 11/12/2018, | | | Screening | 9 | 08/06/2018 | | + + + + + | Vaccine: | | 03/06/2012, 05/30/2000, | | | Dtap/Tdap/Td (2 - | 2 | 01/25/1990 | | | Td) | | | | + + + + + | Hepatitis C | Completed | 08/08/2018 | | | Screening | | | | + + + + + Procedures + +--------+ + + + | Procedure Name | Priori | Date/Time | Associated Diagnosis | Comments | | | ty | | | | + +--------+ + + + | CBC W/AUTO | Routin | 03/13/2019 | | Results for this | | DIFFERENTIAL | e | 8:08 PDT | | procedure are in the | | | | | | results section. | + +--------+ + + + | FERRITIN | Routin | 03/13/2019 | | Results for this | | | e | | | procedure are in the | | | | | | results section. | + +--------+ + + + | IRON AND IRON | Routin | 03/13/2019 | | Results for this | | BINDING CAPACITY | e | | | procedure are in the | | | | | | results section. | + +--------+ + + + | VITAMIN D, | Routin | 03/13/2019 | | Results for this | | 25-HYDROXY, LC/MS/MS | e | | | procedure are in the | | | | | | results section. | + +--------+ + + + | RENAL FUNCTION PANEL | Routin | 03/13/2019 | | Results for this | | | e | | | procedure are in the | | | | | | results section. | + +--------+ + + + | URINALYSIS | Routin | 03/13/2019 | | Results for this | | | e | | | procedure are in the | | | | | | results section. | + +--------+ + + + | EXTERNAL LAB: | Routin | 03/13/2019 | | Results for this | | PROTEIN/CREATININE | e | | | procedure are in the | | RATIO | | | | results section. | + +--------+ + + + | EXTERNAL LAB: PTH, | Routin | 03/13/2019 | | Results for this | | INTACT | e | | | procedure are in the | | | | | | results section. | + +--------+ + + + from Last 3 Months Results CBC w/ Auto Differential (03/13/2019 8:08 PDT) + + + + + + | Component | Value | Ref Range | Performed | Pathologist | | | | | At | Signature | + + + + + + | WBC | 7.24 | 4.0 - 11.0 | | | + + + + + + | RBC COUNT | 3 (A) | 4 - 5 | | | + + + + + + | Hemoglobin | 9.64 (A) | 12 - 16 | | | + + + + + + | Hematocrit, | 28.82 (A) | 35 - 45 | | | | BF | | | | | + + + + + + | MCV | 85.86 | 81 - 99 | | | + + + + + + | MCH | 28.73 | 27 - 33 | | | + + + + + + | MCHC, POC | 33.46 | 30 - 36 | | | + + + + + + | RDW | 13.75 | 10.5 - 16.0 | | | + + + + + + | Platelet | 188 | 140 - 440 | | | | Count | | | | | | Plasma | | | | | + + + + + + | LYMPHOCYTES | 26.40 | 24 - 44 % | | | | BL | | | | | + + + + + + | NEUTROPHILS | 4.43 | 1.3 - 7.0 % | | | | BL | | | | | + + + + + + | BF % | 2 | 1 - 3 % | | | | Lymphocytes | | | | | + + + + + + | BAL | 61 | 37 - 67 % | | | | Neutrophils | | | | | | % | | | | | + + + + + + | Monocyte % | 7.60 | 5 - 12 | | | + + + + + + | BAL | 4 | 0 - 5 % | | | | Eosinophils | | | | | | % | | | | | + + + + + + | BF % | 1 | 0 - 2 % | | | | Basophils | | | | | + + + + + + | MONOCYTES | 0.55 | 0.2 - 1.0 | | | | BAL | | | | | + + + + + + | EOSINOPHILS | 0.31 | 0 - 0.8 | | | | BAL | | | | | + + + + + + | BASOPHILS | 0.04 | 0.0 - 0.6 | | | | BAL | | | | | + + + + + + + + | Specimen | + + | Blood | + + External Lab: PTH, Intact (03/13/2019) + + + + + + | Component | Value | Ref Range | Performed | Pathologist | | | | | At | Signature | + + + + + + | PTH Intact, | 115.0 (A) | 15 - 65 | | | | External | | | | | + + + + + + + + | Specimen | + + | | + + External Lab: Protein/Creatinine Ratio (03/13/2019) + + + + + + | Component | Value | Ref Range | Performed | Pathologist | | | | | At | Signature | + + + + + + | Protein/Cre | 1,342 (A) | 0 - 50 | | | | atinine | | | | | | Ratio, | | | | | | External | | | | | + + + + + + + + | Specimen | + + | | + + Vitamin D, 25-Hydroxy, LC/MS/MS (03/13/2019) + + + + + + | Component | Value | Ref Range | Performed | Pathologist | | | | | At | Signature | + + + + + + | Vit D, | 12.9 (A) | 30 - 100 | | | | 25-Hydroxy | | | | | + + + + + + + + | Specimen | + + | Blood | + + Iron and Iron Binding Capacity (03/13/2019) + + + + + + | Component | Value | Ref Range | Performed | Pathologist | | | | | At | Signature | + + + + + + | Iron, | 249 (A) | 30 - 180 | | | | External | | | | | + + + + + + | TRANSFERRIN | 199.0 (A) | 260.0 - 400.0 | | | | | | mg/dL | | | + + + + + + | Saturation | 90.1 (A) | 20 - 55 | | | | Ratios | | | | | + + + + + + | Iron | 276 | 245 - 400 | | | | Binding | | | | | | Capacity | | | | | + + + + + + + + | Specimen | + + | Blood | + + Urinalysis (03/13/2019) + + + + + + | Component | Value | Ref Range | Performed | Pathologist | | | | | At | Signature | + + + + + + | Clarity | Clear | | | | + + + + + + | Color | yellow | | | | + + + + + + | Specific | 1.021 | 1.005 - 1.030 | | | | [place] | | | | | + + + + + + | Urobilinoge | Normal | < 0.2 mg/dL, | | | | n, Urine | | 1.0 mg/dL, 4.0 | | | | | | mg/dL, Normal, | | | | | | 1.0 E.U./dL, | | | | | | 0.2 E.U./dL, | | | | | | 0.2 mg/dL, | | | | | | Negative, 1 | | | | | | mg/dL, <2.0 | | | | | | mg/dL | | | + + + + + + | Blood, | Negative | Negative | | | | Urine | | | | | + + + + + + | Bilirubin, | Negative | Negative | | | | Urine | | | | | + + + + + + | Ketones, | Negative | Negative | | | | Urine | | | | | + + + + + + | Glucose, | 100 mg/dL (A) | Negative | | | | Urine | | | | | + + + + + + | Protein, | 4+ (A) | Negative | | | | Urine | | | | | + + + + + + | pH, Urine | 5.0 | 5.0 - 8.0 | | | + + + + + + | WBC CASTS | 5 | /LPF | | | | UA | | | | | + + + + + + | RBC UA | 5 | /HPF | | | + + + + + + | EPITHELIAL | 0 | /LPF | | | | CASTS UA | | | | | + + + + + + | Bacteria, | n | | | | | UA | | | | | + + + + + + | CASTS | Negative | | | | + + + + + + | CRYSTAL UA | Negative | | | | + + + + + + | Nitrite, | Negative | Negative | | | | Urine | | | | | + + + + + + | Leukocyte | Negative | Negative | | | | Esterase, | | | | | | Urine | | | | | + + + + + + + + | Specimen | + + | Urine | + + Ferritin (03/13/2019) + +-------+ + + + | Component | Value | Ref Range | Performed | Pathologist | | | | | At | Signature | + +-------+ + + + | Ferritin, | 87.6 | 6 - 200 NG/ML | | | | Therapeutic | | | | | | Phlebotomy | | | | | + +-------+ + + + + + | Specimen | + + | Blood | + + Renal Function Panel (03/13/2019) + + + + + + | Component | Value | Ref Range | Performed | Pathologist | | | | | At | Signature | + + + + + + | PHOSPHORUS | 4.4 | 2.5 - 5.0 | | | + + + + + + | Anion Gap | 14 | 14 - 22 mmol/L | | | + + + + + + | BUN/Creatin | 16.6 | 11.0 - 35.0 | | | | ine Ratio | | | | | + + + + + + | GFR | 21 (A) | 60 - 140 | | | | ESTIMATE | | | | | + + + + + + | Glucose | 146 (A) | 65 - 99 mg/dL | | | + + + + + + | BUN | 40 (A) | 8 - 25 mg/dL | | | + + + + + + | CREA | 2.50 (A) | 0.70 - 1.30 | | | | | | mg/dL | | | + + + + + + | Na | 142 | 135 - 145 | | | | | | mmol/L | | | + + + + + + | K | 5.7 (A) | 3.5 - 5.3 | | | | | | mmol/L | | | + + + + + + | Cl | 113 (A) | 97 - 107 mmol/L | | | + + + + + + | CO2 | 21 (A) | 22 - 29 mmol/L | | | + + + + + + | Calcium | 8.2 (A) | 8.5 - 10.2 | | | + + + + + + | Albumin | 3.3 (A) | 3.5 - 5.2 g/dL | | | + + + + + + + + | Specimen | + + | Blood | + + from Last 3 Months Insurance + +--------+ +--------+ +---------+--------+ | Payer | Benefi | Subscriber | Effect | Phone | Address | Type | | | t Plan | ID | desean | | | | | | / | | Dates | | | | | | Group | | | | | | + +--------+ +--------+ +---------+--------+ | [facility] | [employer] | [id number] | | | | Indemn | | SERVICE | YELLOW | | 018-Pr | | | ity | | | [place]WK | | esent | | | | + +--------+ +--------+ +---------+--------+ | [employer] | [employer] | [id number] | 01/28/20 | [phone] | | Medica | | MEDICAID HMO | HEALTH | | 18-Pre | 1 | | id | | | MDCD | | sent | | | | | | [place]MO [place] | | | | | | + +--------+ +--------+ +---------+--------+ | [facility] | [facility] | [id number] | | | | Indemn | | SERVICE | YELLOW | | 018-Pr | | | ity | | | HAWK | | esent | | | | + +--------+ +--------+ +---------+--------+ | [employer] | [employer] | [id number] | 02/23/20 | [phone] | | Medica | | MEDICAID HMO | HEALTH | | 19-Pre | 1 | | id | | | MDCD | | sent | | | | | | [place]MO [place] | | | | | | + +--------+ +--------+ +---------+--------+ + +--------+ +--------+ + + | Guarantor Name | Accoun | Relation to | Date | Phone | Billing Address | | | t Type | Patient | of | | | | | | | | | | + +--------+ +--------+ + + | Maria Ines Cox | Person | Self | [birth year] | [address] | | | al/Fam | | 1954 | [phone] | [place] | | | jeni | | | 4 (Home) | [address] | + +--------+ +--------+ + + | Maria Ines Cox | Person | Self | [birth year] | [address] | | | al/Fam | | 1954 | [phone] | [place] | | | jeni | | | 2 (Home) | [address] | + +--------+ +--------+ + + Advance Directives Patient has advance care planning documents on file. For more information, please contact:[facility] [place] [address]
--- OUTSIDE RECORDS SUMMARY | ~2019-04-21 | XMS | Encounter Summary ---
Demographics + + + | Address | [address] | | | [place] [address] | + + + | Home Phone | | + + + | Preferred Language | Unknown | + + + | Marital Status | | + + + | [employer] Affiliation | 1041 | + + + | Race | Unknown | + + + | Ethnic Group | Unknown | + + + Author + + + | Author | [facility] | | | and [place] | + + + | Organization | [facility] | | | and [...] + | Sachin Dwyer | ECON | [address] | | | | | [place] | | + + + + + | Abbey Cxo | ECON | Unknown | | + + + + + Care Team Providers + +------+ + | Care Facilities And Grounds Director Name | Role | Phone | + +------+ + | Bernadette Armendariz PA-C | PCP | Unavailable | + +------+ + Reason for Visit +---------+ + | Reason | Comments | +---------+ + | Results | 03/13/19 | +---------+ + Encounter Details +--------+ + + + + | Date | Type | Department | Care Team | Description | +--------+ + + + + | 03/16/ | Documentati | [facility] | Luis, | Results (03/13/19) | | 2019 | on | NEPHROLOGY STEPHEN | [facility] | | | | | [address] | [facility] [employer] | | | | | [address] [place] [address] | | | | | | [place] | | | | | | [address] | | | | | | [phone] | | | +--------+ + + + [...] Pearce MD | | | 2018 | Visit | | [address] [facility] | | | | | | [address] [place], [place] | | | | | | [address] | | | | | | | [...] section. | + +--------+ + + + documented in this encounter Results CBC w/ Auto Differential (03/13/2019 8:08 [...] + + | Blood | + + Ferritin (03/13/2019) + +-------+ [...] + + | Blood | + + Vitamin D, 25-Hydroxy, LC/MS/MS [...] 1.005 - 1.030 | | | | [place] | | | | | + + [...] + + | Urine | + + External Lab: Protein/Creatinine Ratio [...] + | | + + External Lab: PTH, Intact [...] | + + | | + + documented in this encounter Visit Diagnoses Not on filedocumented in this encounter"
--- OUTSIDE RECORDS SUMMARY | ~2019-04-21 | XMS | Encounter Summary ---
Demographics + + + | Address | [address] | | | [place] [address] | + + + | Home Phone | | + + + | Preferred Language | Unknown | + + + | Marital Status | | + + + | Anabaptism Affiliation | 1041 | + + + | Race | Unknown | + + + | Ethnic Group | Unknown | + + + Author + + + | Author | [facility] | | | and [place] | + + + | Organization | [facility] | | [...] + | Sachin Dwyer | ECON | [address] | | | | | [place] | | + + + + + | Abbey Cox | ECON | Unknown | | + + + + + Care Team Providers + +------+ + | Care Logistics Research Engineer Name | Role | Phone | + +------+ + | Bernadette Armendariz PA-C | BEBE | Unavailable | + +------+ + Encounter Details +--------+ + + + + | Date | Type | Department | Care Team | Description | +--------+ + + + + | 03/17/ | Orders Only | [facility] | James Pearce MD | Essential (primary) | | 2019 | | NEPHROLOGY [place] | [address] [place] | hypertension; | | | | [address] [place] | [address] [place], [place] | Chronic kidney | | | | [address] [place], [place] | [address] | disease, stage IV | | | | [address] | | (severe) (HCC); | | | | [phone] | | Proteinuria; | | | | | | Secondary | | | | | | hyperparathyroidism | | | | | | of renal origin | | | | | | (HCC); Vitamin D | | | | | | deficiency | +--------+ + + + + Social [...] 2019 | Visit | | [address] [facility] | | | | | | [address] [place], [place] | | | | | | [address] | | | | | | | | +--------+---------+ + + + + +--------+ + + | Name | Priori | Associated Diagnoses | Order Schedule | | | ty | | | + +--------+ + + | Iron and Iron Binding Capacity | Routin | Essential | Expected: | | | e | (primary) | 02/02/2019, Expires: | | | | hypertension | 11/18/2019 | | | | Chronic kidney | | | | | disease, stage IV | | | | | (severe) (HCC) | | | | | Proteinuria | | | | | Secondary | | | | | hyperparathyroidism | | | | | of renal origin | | | | | ([facility]) Vitamin D | | | | | deficiency | | + +--------+ + + documented as of this encounter Visit Diagnoses + + | Diagnosis | + + | Essential (primary) hypertension Unspecified essential hypertension | + + | Chronic kidney disease, stage IV (severe) (HCC) Chronic kidney disease, Stage IV | | (severe) | + + | Proteinuria | + + | Secondary hyperparathyroidism of renal origin (HCC) Secondary hyperparathyroidism (of | | renal origin) | + + | Vitamin D deficiency Unspecified vitamin D deficiency | + + documented in this encounter"
--- OUTSIDE RECORDS SUMMARY | ~2019-04-21 | XMS | Clinical Summary ---
Demographics + + + | Address | [address] | | | [place] [address] | + + + | Home Phone | | + + + | Preferred Language | Unknown | + + + | Marital Status | | + + + | Taoist Affiliation | Unknown | + + + [...] | + + + + + | Fransisco Araujo | [place] | [address] | | | | | [address] | | | | | [address] | | + + + + + Care Team Providers + +------+ + | Care Migration Specialist Name | Role | Phone | + +------+ + PCP | Unavailable | + +------+ + Source Comments CHELY is fully live [facility] both [facility] and [facility] Allergies Not on File Medications Not on file Active Problems Not [...] | + + Last Filed Vital Signs Not on file Plan of Treatment + + + + + | Health Maintenance | Due Date | Last Done | Comments | + + + + + | Influenza (Flu) | | | | | vaccination (#1) | 9 | | | + + + + + | Pneumococcal | Aged Out | | No longer eligible | | vaccination | | | based on patient's | | | | | age to complete this | | | | | topic | + + + + + Results Not on filefrom Last 3 Months"
--- OUTSIDE RECORDS SUMMARY | ~2019-04-21 | XMS | Encounter Summary ---
Demographics + + + | Address | [address] | | | [place] [address] | + + + | Home Phone | | + + + | Preferred Language | Unknown | + + + | Marital Status | | + + + | Orthodox Affiliation | 1041 | + + + | Race | Unknown | + + + | Ethnic Group | Unknown | + + + Author + + + | Author | [facility] | | | and [place] | + + + | Organization | [facility] | | [...] + | Sachin Dwyer | ECON | [address] | | | | | [place] | | + + + + + | Abbey Cox | ECON | Unknown | | + + + + + Care Team Providers + +------+ + | Care Melting Supervisor Name | Role | Phone | + +------+ + | Bernadette Armendariz PA-C | BEBE | Unavailable | + +------+ + Encounter Details +--------+ + + + + | Date | Type | Department | Care Team | Description | +--------+ + + + + | 03/11/ | Orders Only | [facility] | James Pearce MD | Essential (primary) | | 2019 | | NEPHROLOGY [place] | [address] [place] | hypertension | | | | [address] [place] | [address] [place], [place] | (Primary Dx); CKD | | | | [address] [place], [place] | [address] | (chronic kidney | | | | [address] | | disease), stage IV | | | | [phone] | | (HCC); Nephrotic | | | | | | range proteinuria; | | | | | | Secondary | | | | | | hyperparathyroidism | | | | | | ([facility]); Vitamin D | | | [...] 2019 | Visit | | [address] [facility] | | | | | | [address] [place], [place] | | | | | | [address] | | | | | | | [...]
--- OUTSIDE RECORDS SUMMARY | ~2019-04-21 | XMS | Encounter Summary ---
Demographics + + + | Address | [address] | | | [place] [address] | + + + | Home Phone | | + + + | Preferred Language | Unknown | + + + | Marital Status | | + + + | Uatsdin Affiliation | 1041 | + + + [...] + | Sachin Dwyer | ECON | [address] | | | | | [place] | | + + + + + | Abbey Cox | ECON | Unknown | | + + + + + Care Team Providers + +------+ + | Care Floral Designer Salesperson Name | Role | Phone | + +------+ + | Bernadette Armendariz PA-C | BEBE | Unavailable | + +------+ + Encounter Details +--------+ + + + + | Date | Type | Department | Care Team | Description | +--------+ + + + + | 03/11/ | Orders Only | [facility] | James Pearce MD | Essential | | 2019 | | NEPHROLOGY [place] | [address] [place] | hypertension | | | | [address] | [address] [place], [place] | (Primary Dx); Type 2 | | | | [address] | [address] | diabetes mellitus | | | | [place], [place] | | with complication, | | | | [address] | | with long-term | | | | [phone] | | current use of | | [...] 2019 | Visit | | [address] [facility] [place] | | | | | | [address] [place] | | | | | | [address] | | | | | | | | +--------+---------+ + + + + +--------+ + + | Name | Priori | Associated Diagnoses | Order Schedule | | | ty | | | + +--------+ + + | Misc Lab Referral | Routin | Essential | 1 Occurrences | | | e | hypertension Type 2 | starting 03/11/2019 | | | | diabetes mellitus | until 08/11/2019 | | | | with complication, | | | | | with long-term | | | | | current use of | | | | | insulin (HCC) Acute | | | | | renal failure | | | | | superimposed on | | | | | stage 4 chronic | | | | | kidney disease, | | | | | unspecified acute | | | | | renal failure type | | | | | (HCC) | [...]
--- OUTSIDE RECORDS SUMMARY | ~2019-04-21 | XMS | Encounter Summary ---
Demographics + + + | Address | [address] | | | [place] [address] | + + + | Home Phone [...] + + + | Author | [facility] | | | and [place] | + + + | Organization | [facility] | | [...] + | Sachin Dwyer | ECON | [address] | | | | | [place] | | + + + + + | Abbey Cox | ECON | Unknown | | + + + + + Care Team Providers + +------+ + | Care Filtering Machine Tender Helper Name | Role | Phone | + +------+ + | Bernadette Armendariz PA-C | BEBE | Unavailable | + +------+ + Encounter Details +--------+ + + + + | Date | Type | Department | Care Team | Description | +--------+ + + + + | 03/16/ | Orders Only | [facility] | James Pearce MD | Essential (primary) | | 2018 | | NEPRHOLOGY [place] | [address] | hypertension; Type 2 | | | | [address] | [address] [place], [place] | diabetes mellitus | | | | [address] [place], [place] | [address] | with complications | | | | [address] | | ([facility]); Acute kidney | | | | [phone] | | failure ([facility]) | +--------+ + + + + Social [...] 2019 | Visit | | [address] [facility] [place] | | | | | | [address] [facility] [place] | | | | | | [address] | | | | | | | [...]
--- OUTSIDE RECORDS SUMMARY | ~2019-04-21 | XMS | Encounter Summary ---
Demographics + + + | Address | [address] | | | [place] [address] | + + + | Home Phone | | + + + | Preferred Language | Unknown | + + + | Marital Status | | + + + | Gnosticism Affiliation | 1041 | + + + | Race | Unknown | + + + | Ethnic Group | Unknown | + + + Author + + + | Author | [facility] | | | and [place] | + + + | Organization | [facility] | | | [...] + | Sachin Dwyer | ECON | [address] | | | | | [place] | | + + + + + | Abbey Cox | ECON | Unknown | | + + + + + Care Team Providers + +------+ + | Care Oceanic Sciences Professor Name | Role | Phone | + +------+ + | Bernadette Armendariz PA-C | BEBE | Unavailable | + +------+ + Encounter Details +--------+ + + + + | Date | Type | Department | Care Team | Description | +--------+ + + + + | 03/11/ | Orders Only | [facility] | James Pearce MD | Essential (primary) | | 2019 | | NEPHROLOGY [place] | [address] [place] | hypertension | | | | [address] [place] | [address] [place], [place] | (Primary Dx); CKD | | | | [address] [place], [place] | [address] | (chronic kidney | | | | [address] | | disease), stage IV | | | | [phone] | | (HCC); Nephrotic | | | | | | range proteinuria; | | | | | | Secondary | | | | | | hyperparathyroidism | | | | | | ([facility]); Vitamin D | | | | | [...] 2019 | Visit | | [address] [facility] | | | | | | [address] [place], [place] | | | | | | [address] | | | | | | | [...]
--- OUTSIDE RECORDS SUMMARY | ~2019-04-21 | XMS | Clinical Summary ---
Demographics + + + | Address | [address] | | | [place] [address] | + + + | Home Phone [...] [address] | | | | | [address] | | + + + + + Care Team Providers + +------+ + | Care Instrument Fitter Name | Role | Phone | + +------+ + PCP | Unavailable | + +------+ + Source Comments CHELY is fully live on both [facility] and [facility] InPatient.[facility] Allergies Not on File Medications Not on [...]
--- OUTSIDE RECORDS SUMMARY | ~2019-04-21 | XMS | Encounter Summary ---
Demographics + + + | Address | [address] | | | [place] [address] | + + + | Home Phone | | + + + | Preferred Language | Unknown | + + + | Marital Status | Unknown | + + + | Latter Day Affiliation | Unknown | + + + | Race | Unknown | + + + | Ethnic Group | Unknown | + + + Author + + + | Author | [facility] (Historical as of | | | 03-07-19) | + + + | Organization | [facility] (Historical as of | | | 03-07-19) [...] Providers + +------+ + | Care Financial Planning Advisor Name | Role | Phone | + +------+ + | Pantera Frenchalbaro Javed | PCP | | + +------+ + Encounter Details +--------+ + + + + | Date | Type | Department | Care Team | Description | +--------+ + + + + | 01/30/ | Telephone | [facility] | Luis, | | | 2018 | | [address]ella [address] | [address] | | | | | [address] | | | | | | [place] [address] | | | | | | [phone] | | | +--------+ + + + [...] this encounter Plan of Treatment Not on fileas of this encounter Visit Diagnoses Not on filein this encounter"
--- OUTSIDE RECORDS SUMMARY | ~2019-04-21 | XMS | Encounter Summary ---
Demographics + + + | Address | [address] | | | [place] [address] | + + + | Home Phone [...] + + + | BRYAN COX | [place] | Unknown | | + + + + + | Sachin Dwyer | ECON | [address] | | | | | [place] | | + + + + + | Bryan Cox | ECON | Unknown | | + + + + + Care Team Providers + +------+ + | Care Weight Reducing Technician Name | Role | Phone | + +------+ + | Bernadette Armendariz PA-C | BEBE | Unavailable | + +------+ + Encounter Details +--------+---------+ + + + | Date | Type | Department | Care Team | Description | +--------+---------+ + + + | 03/16/ | Office | [facility] | James Pearce MD | CKD (chronic kidney | | 2019 | Visit | NEPHROLOGY [place] | [address] [facility] | disease), stage IV | | | | [address] | [address] [place], [place] | ([facility]) (Primary Dx); | | | | [address] | [address] | Vitamin D | | | | [place], [place] | | deficiency; Anemia | | | | [address] | | of chronic renal | | | | [phone] | | failure, stage 4 | | | | | | (severe) ([facility]); | | | | | | Secondary | | | | | | hyperparathyroidism | | | | | | ([facility]); 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 P DT documented in this encounter Progress Notes James Pearce MD - 03/16/2019 1410 PDT Progress Notes by James Pearce MD at 11/17/18 4650 Author: James Pearce MD Service: (none) Author Type: Physician Filed: 11/17/18 1421 Encounter Date: 11/17/2018 Status: Signed Image Consultant: James Pearce MD (Physician) Patient Active Problem [...] LABIRON 82.2 (A) 11/12/2018 LABPROT 4.982 08/07/2018 [id number] 8.5 (A) 11/12/2018 Assessment: Ms. Cox is [...] RFP, CBC, Iron studies, Ferritin, intact PTH, 59-wjdpqgm-pblbwmy D befor e she comes back in 3 months. Thank you Colleague for the opportunity to see this patient in F/U today. Please do not hes itate to call me at any time with questions or concerns. Truly yours, James Pearce MD FACP [facility] documented in this encount er Plan of Treatment +--------+---------+ + + + | Date | Type | Specialty | Care Team | Description | +--------+---------+ + + + | 06/22/ | Office | Nephrology | James Pearce MD | | | 2019 | Visit | | [address] [facility] | | | | | | [address] [place], [place] | | | | | | [id number] | | | | | | | [...]
--- OUTSIDE RECORDS SUMMARY | ~2019-04-21 | XMS | Encounter Summary ---
Demographics + + + | Address | [address] | | | [place] [address] | + + + | Home Phone | | + + + | Preferred Language | Unknown | + + + | Marital Status | | + + + | Christianity Affiliation | 1041 | + + + [...] + | Sachin Dwyer | ECON | [address] | | | | | [place] | | + + + + + | Abbey Cox | ECON | Unknown | | + + + + + Care Team Providers + +------+ + | Care Manager Case Name | Role | Phone | + [...] + + | 03/16/ | Documentati | [facility] | Luis, | Results (03/13/19) | | 2019 | on | NEPHROLOGY [place] | Daniela [facility] | | | | | [address] | Operations Intern | | | | | [address] [place] [address] | | | | | | [place] | | | | | | [address] | | | | | | [phone] | | | +--------+ + + + [...] 2018 | Visit | | [address] [address] [facility] | | | | | | [address] [place], [place] | | | | | | [address] | | | | | | | [...] 1.005 - 1.030 | | | | [place] | | | | | + + [...]
--- OUTSIDE RECORDS SUMMARY | ~2019-04-21 | XMS | Encounter Summary ---
Demographics + + + | Address | [address] | | | [place] [address] | + + + | Home Phone | | + + + | Preferred Language | Unknown | + + + | Marital Status | Unknown | + + + | Nondenominational Affiliation | Unknown | + + + | Race | Unknown | + + + | Ethnic Group | Unknown | + + + Author + + + | Author | [facility] (Historical as of | | | 03-07-19) | + + + | Organization | [facility] (Historical as of | | | 03-07-19) [...] Team Providers + +------+ + | Care Cook Helper Dessert Name | Role | Phone | + +------+ + | Pantera Frenchalbaro Javed | PCP | | + +------+ + Encounter Details +--------+ + + + + | Date | Type | Department | Care Team | Description | +--------+ + + + + | 03/06/ | Telephone | [facility] | Luis, | | | 2018 | | Gabriella [address] | [address] | | | | | [address] | | | | | | [place] [address] | | | | | | [phone] | | | +--------+ + + + [...]
--- OUTSIDE RECORDS SUMMARY | ~2019-04-21 | XMS | Clinical Summary ---
Demographics + + + | Address | [address] | | | [place] [address] | + + + | Home Phone | | + + + | Preferred Language | Unknown | + + + | Marital Status | Unknown | + + + | Buddhist Affiliation | Unknown | + + + | Race | Unknown | + + + | Ethnic Group | Unknown | + + + Author + + + | Author | [facility] (Historical as of | | | 03-07-19) | + + + | Organization | [facility] (Historical as of | | | 03-07-19) [...] Team Providers + +------+ + | Care Plastic Parts Fabricator Name | Role | Phone | + [...] CKD (chronic kidney disease), stage IV ([facility]) | 11/17/2018 | + + + | Anemia of chronic renal failure, stage 4 (severe) ([facility]) | 11/17/2018 | + + [...] + + | 03/06/ | Telephone | Usama Smith, | | | 2018 | | | [address] | | +--------+ + + + + | 01/30/ | Telephone | Usama Smith, | | | 2018 | | | [...] +------+-------+ + | MEDICAID | E[place]ER | [id number] | | | [address] | | | N | | | | [place], [place] | | | [place] | | | | [address] | | | ASSISTANT PASSENGER LOCOMOTIVE ENGINEER | | | | | + +--------+ +------+-------+ + | /[facility] | YELLOW | [id number] | | | | | PLANS | [...] | Self | [birth year] | Home: | [address] | | | al/Kyle | | 1955 | [id number] | [place] | | | jeni | | | [birth year] | [address] | + +--------+ +--------+ + +
--- OUTSIDE RECORDS SUMMARY | ~2019-04-21 | XMS | Encounter Summary ---
Demographics + + + | Address | [address] | | | [place] [address] | + + + | Home Phone | | + + + | Preferred Language | Unknown | + + + | Marital Status | | + + + | Rastafari Affiliation | 1041 | + + + | Race | Unknown | + + + | Ethnic Group | Unknown | + + + Author + + + | Author | [facility] | | | and [place] | + + + | Organization | [facility] | | [...] + | Sachin Dwyer | ECON | [address] | | | | | [place] | | + + + + + | Abbey Cox | ECON | Unknown | | + + + + + Care Team Providers + +------+ + | Care Cork Compounder Name | Role | Phone | + +------+ + | Bernadette Armendariz PA-C | BEBE | Unavailable | + +------+ + Encounter Details +--------+ + + + + | Date | Type | Department | Care Team | Description | +--------+ + + + + | 03/10/ | Orders Only | [facility] | James Pearce MD | | | 2018 | | NEPHROLOGY [place] | [address] [place] | | | | | [address] [place] | [address] [place], [place] | | | | | [address] [place], [place] | [id number] | | | | | [address] | | | | | | [phone] | | | +--------+ + + + [...] 2019 | Visit | | [address] [facility] | | | | | | [address] [place] | | | | | | [address] | | | | | | | | +--------+---------+ + + + documented as of this encounter Visit Diagnoses Not on filedocumented in this encounter"
--- OUTSIDE RECORDS SUMMARY | ~2019-04-21 | XMS | Encounter Summary ---
Demographics + + + | Address | [address] | | | [place] [address] | + + + | Home Phone | | + + + | Preferred Language | Unknown | + + + | Marital Status | | + + + | Episcopal Affiliation | Unknown | + + + | Race | or | + + + | Ethnic Group | Not or | + + + Author + + + | Author | [facility] | + + + | Organization | [facility] | + + + | Address | Unknown | + + + | Phone | Unavailable | + + + Support + + + + + | Name | Relationship | Address | Phone | + + + + + | Angene Bill | ECON | [address] | | | | [address], [place] | | | | | [address] | | + + + + + Care Team Providers + +------+ + | Care Explosive Operator Supervisor Name | Role | Phone | [...] | | | | | [address] | [place], [place] | | | | | | [address] | | | +--------+ + + + [...]
--- OUTSIDE RECORDS SUMMARY | ~2019-04-21 | XMS | Encounter Summary ---
Demographics + + + | Address | [address] | | | [place] [address] | + + + | Home Phone | | + + + | Preferred Language | Unknown | + + + | Marital Status | | + + + | Episcopalian Affiliation | 1041 | + + + | Race | Unknown | + + + | Ethnic Group | Unknown | + + + Author + + + | Author | [facility] | | | and [place] | + + + | Organization | [facility] | | [...] + | Sachin Dwyer | ECON | [address] | | | | | [place] | | + + + + + | Abbey Cox | ECON | Unknown | | + + + + + Care Team Providers + +------+ + | Care Process Control Tech Name | Role | Phone | + +------+ + | Bernadette Armendariz PA-C | BEBE | Unavailable | + +------+ + Encounter Details +--------+ + + + + | Date | Type | Department | Care Team | Description | +--------+ + + + + | 03/11/ | Orders Only | [facility] | James Pearce MD | Essential | | 2019 | | NEPHROLOGY [place] | [address] [place] | hypertension | | | | [address] | [address] [place], [place] | (Primary Dx); Type 2 | | | | [address] | [address] | diabetes mellitus | | | | [place], [place] | | with complication, | | | | [address] | | with long-term | | | | [phone] | | current use of | | [...] 2019 | Visit | | [address] [facility] [place] | | | | | | [address] [place] | | | | | | [address] | | | | | | | [...]
--- OUTSIDE RECORDS SUMMARY | ~2019-04-21 | XMS | Encounter Summary ---
Demographics + + + | Address | [address] | | | [place] [address] | + + + | Home Phone [...] + | Sachin Dwyer | ECON | [address] | | | | | [place] | | + + + + + | Abbey Cox | ECON | Unknown | | + + + + + Care Team Providers + +------+ + | Care Probate Lawyer Name | Role | Phone | + +------+ + | Bernadette Armendariz PA-C | BEBE | Unavailable | + +------+ + Encounter Details +--------+ + + + + | Date | Type | Department | Care Team | Description | +--------+ + + + + | 03/10/ | Orders Only | [facility] | James Pearce MD | | | 2019 | | NEPHROLOGY [place] | [address] [facility] | | | | | [address] | [address] [facility] [place] | | | | | [facility] [address] | [id number] | | | | | [place], [place] | | | | | | [address] | | | | | | [phone] | | | +--------+ + + + [...] [place] | | | | | | [address] | | | | | | | | +--------+---------+ + + + documented as of this encounter Visit Diagnoses Not on filedocumented in this encounter"
--- OUTSIDE RECORDS SUMMARY | ~2019-04-21 | XMS | Encounter Summary ---
Demographics + + + | Address | [address] | | | [place] [address] | + + + | Home Phone | | + + + | Preferred Language | Unknown | + + + | Marital Status | Unknown | + + + | Sabianism Affiliation | Unknown | + + + | Race | Unknown | + + + | Ethnic Group | Unknown | + + + Author + + + | Author | [facility] (Historical as of | | | 03-07-19) | + + + | Organization | [facility] (Historical as of | | | 03-07-19) [...] Providers + +------+ + | Care Manager Of Maintenance Name | Role | Phone | [...] [address] | | | | | | [place] [address] | | | | | | [phone] | | | +--------+ + + + [...]
--- OUTSIDE RECORDS SUMMARY | ~2019-04-21 | XMS | Encounter Summary ---
Demographics + + + | Address | [address] | | | [place] [address] | + + + | Home Phone | | + + + | Preferred Language | Unknown | + + + | Marital Status | | + + + | Christianity Affiliation | 1041 | + + + | Race | Unknown | + + + | Ethnic Group | Unknown | + + + Author + + + | Author | [facility] | | | and [place] | + + + | Organization | [facility] | | [...] + | Sachin Dwyer | ECON | [address] | | | | | [place] | | + + + + + | Abbey Cox | ECON | Unknown | | + + + + + Care Team Providers + +------+ + | Care Project Development Director Name | Role | Phone | + +------+ + | Bernadette Armendariz PA-C | BEBE | Unavailable | + +------+ + Encounter Details +--------+ + + + + | Date | Type | Department | Care Team | Description | +--------+ + + + + | 03/18/ | Orders Only | [facility] | James Pearce MD | Essential (primary) | | 2019 | | NEPHROLOGY [place] | [address] [place] | hypertension | | | | [address] [place] | [address] [place], [place] | (Primary Dx); | | | | [address] [place], [place] | [address] | Secondary | | | | [address] | | hyperparathyroidism | | | | [phone] | | (HCC); CKD (chronic | | | | | | kidney disease), | | | | | | stage IV ([facility]); | | | | | | Anemia of chronic | | | | | | renal failure, stage | | | | | | 4 (severe) ([facility]); | | | | [...] 2018 | Visit | | [address] [facility] [address] | | | | | | [address] [place] | | | | | | [address] | | | | | | | | +--------+---------+ + + + + +--------+ + + | Name | Priori | Associated Diagnoses | Order Schedule | | | ty | | | + +--------+ + + | Basic Metabolic Panel | Routin | Essential | Expected: | | | e | (primary) | 03/23/2019, Expires: | | | | hypertension CKD | 03/18/2020 | | | | (chronic kidney | | | | | disease), stage IV | | | | | (HCC) | | + +--------+ + + | Renal Function Panel | Routin | Essential | Expected: | | | e | (primary) | 06/18/2019, Expires: | | | | hypertension CKD | 03/18/2020 | | | | (chronic kidney | | | | | disease), stage IV | | | | | (HCC) | | + +--------+ + + | CBC with Differential | Routin | Essential | Expected: | | | e | (primary) | 06/18/2019, Expires: | | | | hypertension CKD | 03/18/2020 | | | | (chronic kidney | | | | | disease), stage IV | | | | | (HCC) | | + +--------+ + + | Iron and Iron Binding Capacity | Routin | CKD (chronic | Expected: | | | e | kidney disease), | 06/18/2019, Expires: | | | | stage IV (HCC) | 03/18/2020 | | | | Anemia of chronic | | | | | renal failure, stage | | | | | 4 (severe) ([facility]) | | + +--------+ + + | Ferritin | Routin | CKD (chronic | Expected: | | | e | kidney disease), | 06/18/2019, Expires: | | | | stage IV (HCC) | 03/18/2020 | | | | Anemia of chronic | | | | | renal failure, stage | | | | | 4 (severe) ([facility]) | | + +--------+ + + | Parathyroid Hormone, Intact | Routin | Secondary | Expected: | | | e | hyperparathyroidism | 06/18/2019, Expires: | | | | (HCC) CKD (chronic | 03/18/2020 | | | | kidney disease), | | | | | stage IV (HCC) | | + +--------+ + + | Vitamin D, Deficiency Screen | Routin | CKD (chronic | Expected: | | (25-Hydroxy) | e | kidney disease), | 06/18/2019, Expires: | | | | stage IV (HCC) | 03/18/2020 | | | | Vitamin D deficiency | | + +--------+ + + [...]
--- OUTSIDE RECORDS SUMMARY | ~2019-04-21 | XMS | Encounter Summary ---
Demographics + + + | Address | [address] | | | [place] [address] | + + + | Home Phone [...] + | Sachin Dwyer | ECON | [address] | | | | | [place] | | + + + + + | Abbey Cox | ECON | Unknown | | + + + + + Care Team Providers + +------+ + | Care Oil Tank Car Cleaner Name | Role | Phone | + +------+ + | Bernadette Armendariz PA-C | BEBE | Unavailable | + +------+ + Encounter Details +--------+ + + + + | Date | Type | Department | Care Team | Description | +--------+ + + + + | 02/23/ | Orders Only | [facility] | Provider, | Essential (primary) | | 2018 | | SYSTEM GENERIC OP | [address] | hypertension; Type 2 | | | | [address] | [address] | diabetes mellitus | | | | [address] [place], [place] | [place] [address] | with complications | | | | [address] | | ([facility]); Acute kidney | | | | [phone] | | failure ([facility]); | [...] 2019 | Visit | | [address] [facility] [place] | | | | | | [address] [place], [place] | | | | | | [address] | | | | | | | [...]
--- OUTSIDE RECORDS SUMMARY | ~2019-04-21 | XMS | Encounter Summary ---
Demographics + + + | Address | [address] | | | [place] [address] | + + + | Home Phone [...] + | Author | [facility] | | | and [place] | + + + | Organization | [facility] | | | and [...] + | Sachin Dwyer | ECON | [address] | | | | | [place] | | + + + + + | Abbey Cox | ECON | Unknown | | + + + + + Care Team Providers + +------+ + | Care Game Design Instructor Name | Role | Phone | + +------+ + | Bernadette Armendariz PA-C | BEBE | Unavailable | + +------+ + Encounter Details +--------+ + + + + | Date | Type | Department | Care Team | Description | +--------+ + + + + | 03/17/ | Orders Only | [facility] | James Pearce MD | Essential (primary) | | 2019 | | NEPHROLOGY [place] | [address] [place] | hypertension; | | | | [address] [place] | [address] [place], [place] | Chronic kidney | | | | [address] [place], [place] | [address] | disease, stage IV | | | | [address] | | (severe) (HCC); | | | | [phone] | | Proteinuria; | | | | [...] 2019 | Visit | | [address] [facility] | | | | | | [address] [place], [place] | | | | | | [address] | | | | | | | [...] renal origin | | | | | ([facility]) Vitamin D | | | | [...]
--- OUTSIDE RECORDS SUMMARY | ~2019-04-21 | XMS | Encounter Summary ---
Demographics + + + | Address | [address] | | | [place] [address] | + + + | Home Phone [...] + | Sachin Dwyer | ECON | [address] | | | | | [place] | | + + + + + | Abbey Cox | ECON | Unknown | | + + + + + Care Team Providers + +------+ + | Care Metal Grinder Name | Role | Phone | + +------+ + | Bernadette Armendariz PA-C | BEBE | Unavailable | + +------+ + Encounter Details +--------+ + + + + | Date | Type | Department | Care Team | Description | +--------+ + + + + | 03/16/ | Orders Only | [facility] | James Pearce MD | Essential (primary) | | 2018 | | NEPRHOLOGY [place] | [address] | hypertension; Type 2 | | | | [address] | [address] [place], [place] | diabetes mellitus | | | | [address] [place], [place] | [address] | with complications | | | | [address] | | ([facility]); Acute kidney | | | | [phone] | | failure ([facility]) | +--------+ + + + [...] 2019 | Visit | | [address] [facility] [place] | | | | | | [address] [facility] [place] | | | | | | [address] | | | | | | | [...]
--- OUTSIDE RECORDS SUMMARY | ~2019-04-21 | XMS | Encounter Summary ---
Demographics + + + | Address | [address] | | | [place] [address] | + + + | Home Phone | | + + + | Preferred Language | Unknown | + + + | Marital Status | | + + + | Sikhism Affiliation | 1041 | + + + [...] + | Sachin Dwyer | ECON | [address] | | | | | [place] | | + + + + + | Bryan Cox | ECON | Unknown | | + + + + + Care Team Providers + +------+ + | Care Tar Heat Exchanger Cleaner Name | Role | Phone | + +------+ + | Bernadette Armendariz PA-C | BEBE | Unavailable | + +------+ + Encounter Details +--------+---------+ + + + | Date | Type | Department | Care Team | Description | +--------+---------+ + + + | 03/16/ | Office | [facility] | James Pearce MD | CKD (chronic kidney | | 2019 | Visit | NE[place]OLOGY [place] | [address] [facility] | disease), stage IV | | | | [address] | [address] [place], [place] | ([facility]) (Primary Dx); | | | | [address] | [address] | Vitamin D | | | | [place], [place] | | deficiency; Anemia | | | | [address] | | of chronic renal | | | | [phone] | | failure, stage 4 | | | | | | (severe) ([facility]); | | | | | | Secondary | | | | | | hyperparathyroidism | | | | | | ([facility]); 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 P DT documented in this encounter Progress Notes James Pearce MD - 03/16/2019 1410 PDT Progress Notes by James Pearce MD at 11/17/18 [id number] Author: James Pearce MD Service: (none) Author Type: Physician Filed: 11/17/18 1427 Encounter Date: 11/17/2018 Status: Signed Acidizer Water Well: James Pearce MD (Physician) Patient Active Problem [...] LABIRON 82.2 (A) 11/12/2018 LABPROT 4.982 08/07/2018 [id number] 8.5 (A) 11/12/2018 Assessment: Ms. Cox is [...] RFP, CBC, Iron studies, Ferritin, intact PTH, 03-xhcqebq-aqhzbda D befor e she comes back in 3 months. Thank you Colleague for the opportunity to see this patient in F/U today. Please do not hes itate to call me at any time with questions or concerns. Truly yours, James Pearce MD FACP [facility] documented in this encount er Plan of Treatment +--------+---------+ + + + | Date | Type | Specialty | Care Team | Description | +--------+---------+ + + + | 06/22/ | Office | Nephrology | James Pearce MD | | | 2019 | Visit | | [address] [facility] | | | | | | [address] [place], [place] | | | | | | [address] | | | | | | | [...]
--- OUTSIDE RECORDS SUMMARY | ~2019-04-21 | XMS | Encounter Summary ---
Demographics + + + | Address | [address] | | | [place] [address] | + + + | Home Phone [...] + | Sachin Dwyer | ECON | [address] | | | | | [place] | | + + + + + | Abbey Cox | ECON | Unknown | | + + + + + Care Team Providers + +------+ + | Care Piano Refinisher Name | Role | Phone | + +------+ + | Bernadette Armendariz PA-C | BEBE | Unavailable | + +------+ + Encounter Details +--------+ + + + + | Date | Type | Department | Care Team | Description | +--------+ + + + + | 02/23/ | Orders Only | [facility] | Provider, | Essential (primary) | | 2018 | | SYSTEM GENERIC OP | [address] | hypertension; Type 2 | | | | [address] | [address] | diabetes mellitus | | | | [address] [place], [place] | [place] [address] | with complications | | | | [address] | | ([facility]); Acute kidney | | | | [phone] | | failure ([facility]); | | | | | | Chronic kidney | | | | | | disease, stage IV | | | | | | (severe) ([facility]); | | | | | | Proteinuria; | | | | | | Secondary | | | | | | hyperparathyroidism | | | | | | of renal origin | | | | | | ([facility]); Vitamin D | | | | [...] | [address] [facility] [address] | | | | | | [address] [place], [place] | | | | | | [address] | | | | | | | [...] renal origin | | | | | ([facility]) Vitamin D | | | | | deficiency | | + +--------+ + + | Urinalysis with Microscopic if | Routin | Essential | Expected: | | Indicated | e | (primary) | 02/02/2019, Expires: | | | | hypertension | 11/18/2019 | | | | Chronic kidney | | | | | disease, stage IV | | | | | (severe) ([facility]) | | | | | Proteinuria | | | | | Secondary | | | | | hyperparathyroidism | | | | | of renal origin | | | | | ([facility]) Vitamin D | | | | | deficiency | | + +--------+ + + | Protein/Creatinine Ratio, Urine | Routin | Essential | Expected: | | | e | (primary) | 02/02/2019, Expires: | | | | hypertension | 11/18/2019 | | | | Chronic kidney | | | | | disease, stage IV | | | | | (severe) ([facility]) | | | | | Proteinuria | | | | | Secondary | | | | | hyperparathyroidism | | | | | of renal origin | | | | | ([facility]) Vitamin D | | | | [...]
--- OUTSIDE RECORDS SUMMARY | ~2019-04-21 | XMS | Clinical Summary ---
Demographics + + + | Address | [address] | | | [place] [address] | + + + | Home Phone | | + + + | Preferred Language | Unknown | + + + | Marital Status | Unknown | + + + | Baptism Affiliation | Unknown | + + + | Race | Unknown | + + + | Ethnic Group | Unknown | + + + Author + + + | Author | [employer] (Historical as of | | | 03-07-19) | + + + | Organization | [facility] (Historical as of | | | 03-07-19) [...] Team Providers + +------+ + | Care Vice President Of News Name | Role | Phone | + [...] | CKD (chronic kidney disease), stage IV ([facility]) | 11/17/2018 | + + + | Anemia of chronic renal failure, stage 4 (severe) ([facility]) | 11/17/2018 | + + + [...] +------+-------+ + | MEDICAID | [place] | [id number] | | | [address] | | | N | | | | [place], [place] | | | [place] | | | | [address] | | | FLIGHT SERVICE SPECIALIST | | | | | + +--------+ +------+-------+ + | /[facility] | YELLOW | [id number] | | | | | PLANS | [...] | Self | [birth year] | Home: | [address] | | | al/Kyle | | 1955 | [id number] | [place] | | | jeni | | | [birth year] | [address] | + +--------+ +--------+ + +
--- OUTSIDE RECORDS SUMMARY | ~2019-04-21 | XMS | Encounter Summary ---
Demographics + + + | Address | [address] | | | [place] [address] | + + + | Home Phone | | + + + | Preferred Language | Unknown | + + + | Marital Status | Unknown | + + + | Shinto Affiliation | Unknown | + + + | Race | Unknown | + + + | Ethnic Group | Unknown | + + + Author + + + | Author | [employer] (Historical as of | | | 03-07-19) | + + + | Organization | [facility] (Historical as of | | | 03-07-19) [...] Team Providers + +------+ + | Care Regional Tanker Truck Driver Name | Role | Phone [...] [address] | | | | | | [place] [address] | | | | | | [phone] | | | +--------+ + + + [...]
--- OUTSIDE RECORDS SUMMARY | ~2019-04-21 | XMS | Encounter Summary ---
Demographics + + + | Address | [address] | | | [place] [address] | + + + | Home Phone [...] + + | Author | [facility] | + + + | Organization | [facility] | + + + | Address | Unknown | + + + | Phone | Unavailable | + + + Support + + + + + | Name | Relationship | Address | Phone | + + + + + | Angene Bill | ECON | [address] | | | | [place], [place] | | | | | [address] | | + + + + + Care Team Providers + +------+ + | Care Impregnation Operator Name | Role | Phone | [...] | | | | | livia | [place], [place] | | | | | | [address] | | | +--------+ + + + [...]
--- OUTSIDE RECORDS SUMMARY | ~2019-04-21 | XMS | Clinical Summary ---
Demographics + + + | Address | [address] | | | [place] [address] | + + + | Home Phone [...] + | Sachin Dwyer | ECON | [address] [address] | | | | | [place] | | + + + + + | Abbey Cox | ECON | Unknown | | + + + + + Care Team Providers + +------+ + | Care Golf Cart Repairer Name | Role | Phone | [...] + + | Overview: Echocardiogram done at [facility] on 01/28/18 | | shows overall left [...] | | | | | 4 (severe) ([facility]); | | | | | | Vitamin D deficiency | +--------+ + + + + | 03/17/ | Orders Only | Nephrology | James Pearce MD | Essential (primary) | | 2019 | | | | hypertension; | | | | | | Chronic kidney | | | | | | disease, stage IV | | | | | | (severe) ([facility]); | | | | | | Proteinuria; | | | | | | Secondary | | | | | | hyperparathyroidism | | | | | | of renal origin | | | | | | ([facility]); Vitamin D | | | | | | deficiency | +--------+ + + + + | 03/16/ | Office | Nephrology | James Pearce MD | CKD (chronic kidney | | 2019 | Visit | | | disease), stage IV | | | | | | ([facility]) (Primary Dx); | | | | | | Vitamin D | | | | | | deficiency; Anemia | | | | | | of chronic renal | | | | | | failure, stage 4 | | | | | | (severe) ([facility]); | | | | | | Secondary | | | | | | hyperparathyroidism | | | | | | ([facility]); 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, with | | | | | | long-term current | | | | | | use of insulin | | | | | | ([facility]); Essential | | | | | [...] complications | | | | | | ([facility]); Acute kidney | | | | | | failure ([facility]) | +--------+ + + + + | 03/16/ | Documentati | Nephrology | Luis, | Results (03/13/19) | | 2019 | on | | Maninder Suarez | | | | | | Floor Covering Contractor | | +--------+ + + + + | 03/11/ | Orders Only | Nephrology | James Pearce MD | Essential (primary) | | 2018 | | | | hypertension | | | | | | (Primary Dx); CKD | | | | | | (chronic kidney | | | | | | disease), stage IV | | | | | | ([facility]); Nephrotic | | | | | | range proteinuria; | | | | | | Secondary | | | | | | hyperparathyroidism | | | | | | ([facility]); Vitamin D | | | | [...] complications | | | | | | ([facility]); Acute kidney | | | | | | failure ([facility]); | | | | | | Chronic kidney | | | | | | disease, stage IV | | | | | | (severe) ([facility]); | | | | | | Proteinuria; | | | | | | Secondary | | | | | | hyperparathyroidism | | | | | | of renal origin | | | | | | ([facility]); Vitamin D | | | | [...] 2019 | Visit | | [address] [facility] | | | | | | [address] [place], [place] | | | | | | [address] | | | | | | | [...] 1.005 - 1.030 | | | | [place] | | | | | + + [...] | | + +--------+ +--------+ +---------+--------+ | [facility] | IHS | [id number] | | | | Indemn | | SERVICE | YELLOW | | 018-Pr | | | ity | | | HAWK | | esent | | | | + +--------+ +--------+ +---------+--------+ | [employer] | MODA | [id number] | 01/28/20 | [phone] | | Medica | | MEDICAID HMO | HEALTH | | 18-Pre | 1 | | id | | | MDCD | | sent | | | | | | [place] | | | | | | + +--------+ +--------+ +---------+--------+ | [facility] | IHS | [id number] | | | | Indemn | | SERVICE | YELLOW | | 018-Pr | | | ity | | | HAWK | | esent | | | | + +--------+ +--------+ +---------+--------+ | [employer] | MODA | [id number] | 02/23/20 | [phone] | | Medica | | MEDICAID HMO [...] Person | Self | [birth year] | [address] | | | al/Fam | | 1954 | [phone] | [place] | | | jeni | | | 4 (Home) | [address] | + +--------+ +--------+ + + | Maria Ines Cox | Person | Self | [birth year] | | [address] | | | al/Fam | | 1954 | [phone] | [place] | | | jeni | | | 2 (Home) | [address] | + +--------+ +--------+ + + Advance Directives Patient has advance care planning documents on file. For more information, please contact:[facility] [place] [address]
--- OUTSIDE RECORDS SUMMARY | ~2019-04-21 | XMS | Encounter Summary ---
Demographics + + + | Address | [address] | | | [place] [address] | + + + | Home Phone | | + + + | Preferred Language | Unknown | + + + | Marital Status | | + + + | Judaism Affiliation | 1041 | + + + | Race | Unknown | + + + | Ethnic Group | Unknown | + + + Author + + + | Author | [facility] | | | and [place] | + + + | Organization | [facility] | | | [...] + | Sachin Dwyer | ECON | [address] | | | | | [place] | | + + + + + | Abbey Cox | ECON | Unknown | | + + + + + Care Team Providers + +------+ + | Care Insolvency Practitioner Name | Role | Phone | + [...] | | | 2018 | | NEPHROLOGY [place] | [address] [place] | | | | | [address] [place] | [address] [place], [place] | | | | | [address] [place], [place] | [id number] | | | | | [address] | | | | | | [phone] | | | +--------+ + + + [...] | Visit | | [address] [facility] | | | | | | [address] [place] | | | | | | [address] | | | | | | | | +--------+---------+ + + + documented as of this encounter Visit Diagnoses Not on filedocumented in this encounter"
--- OUTSIDE RECORDS SUMMARY | ~2019-04-21 | XMS | Encounter Summary ---
Demographics + + + | Address | [address] | | | [place] [address] | + + + | Home Phone [...] + | Sachin Dwyer | ECON | [address] | | | | | [place] | | + + + + + | Abbey Cox | ECON | Unknown | | + + + + + Care Team Providers + +------+ + | Care Bottom Sprayer Name | Role | Phone | + +------+ + | Bernadette Armendariz PA-C | BEBE | Unavailable | + +------+ + Encounter Details +--------+ + + + + | Date | Type | Department | Care Team | Description | +--------+ + + + + | 03/18/ | Orders Only | [facility] | James Pearce MD | Essential (primary) | | 2019 | | NEPHROLOGY [place] | [address] [place] | hypertension | | | | [address] [place] | [address] [place], [place] | (Primary Dx); | | | | [address] [place], [place] | [address] | Secondary | | | | [address] | | hyperparathyroidism | | | | [phone] | | (HCC); CKD (chronic | | | | | | kidney disease), | | | | | | stage IV ([facility]); | | | | | | Anemia [...] 2018 | Visit | | [address] [facility] [place] | | | | | | [address] [place] | | | | | | [address] | | | | | | | [...] | | | 4 (severe) ([facility]) | | + +--------+ + + | Ferritin | Routin | CKD (chronic | Expected: | | | e | kidney disease), | 06/18/2019, Expires: | | | | stage IV (HCC) | 03/18/2020 | | | | Anemia of chronic | | | | | renal failure, stage | | | | | 4 (severe) ([facility]) | | + +--------+ + + | [...]
--- OUTSIDE RECORDS SUMMARY | 2019-04-21 08:58 | XMS ---
PreManage Notification: JOSE G COX Security Night Auditor Events No recent Security Events currently on file CRITERIA MET - 6 ED Visits in 6 Months - [facility] - Has Care Guidelines CARE PROVIDERS ADAMARIS MOSCOSO Physician Ward Assistant: Surgical 04/21/2018-Current PHONE: Unknown Neo has no Care Guidelines for this patient. Care History Medical/Surgical 04/21/2018 [facility] - PATIENT HAS [employer] [place] PROVIDER: - PLEASE REFER PATIENT TO [facility]. - IF PATIENT CALLS EARLY IN THE AM TO [facility] PATIENT CAN BE SEEN SAME DAY FOR ANY NON EMERGENT MEDICAL NEEDS. - [facility] CONTACT # [phone] - PATIENT HAS A LONG EXTENSIVE HX WITH METHAMPHETAMINE USAGE. - PHYSICIAN DISCRECTION- TOX SCREEN BEFORE TREATMENT. Care Recommendation: - USE EXTREME CAUTION IN GIVING NARCOTICS TO THIS PATIENT. - Avoid Discharge Narcotic prescriptions if at all possible. Please use clinical judgement. E.D. VISIT COUNT (12 MO.) 2 [facility] 10 [facility]. TOTAL 12 NOTE: Visits indicate total known visits. 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 - Allergy status to other antibiotic agents status - Unspecified visual disturbance - Heart failure, unspecified - Syncope and collapse - Dizziness and giddiness - Unspecified asthma, uncomplicated - Type 2 diabetes mellitus with diabetic chronic kidney disease - Old myocardial infarction - Personal history of transient ischemic attack (TIA), and cerebral infarction without residual deficits [facility] DIAGNOSES: - Vision Distrubances 12/01/2018 16:06 [facility] [place] TYPE: Emergency COMPLAINT: - BLURRED VISION, RIGHT SIDED WEAKNESS DIAGNOSES: - alf (current) use of insulin - Personal history of transient ischemic attack (TIA), and cerebral infarction without residual deficits - Unspecified visual disturbance - Other visual disturbances - Other casework specialist (current) drug therapy - Unspecified asthma, uncomplicated - Type 2 diabetes mellitus without complications - Heart failure, unspecified - Allergy status to other antibiotic agents status 11/07/2018 17:26 [facility] [place] TYPE: Emergency COMPLAINT: - RIGHT FOOT PAIN/INJURY DIAGNOSES: - Heart failure, unspecified - Old myocardial infarction - Allergy status to other drugs, medicaments and biological substances status - Striking against or struck by other objects, initial encounter - Unspecified asthma, uncomplicated - Personal history of transient ischemic attack (TIA), and cerebral infarction without residual deficits - 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 - Puncture wound without foreign body, right foot, initial encounter - Personal history of nicotine dependence - Type 2 diabetes mellitus without complications - Other casework specialist (current) drug therapy - alf (current) use of aspirin 10/01/2018 19:00 [facility] [place] TYPE: Emergency COMPLAINT: - ABD PAIN DIAGNOSES: - Left lower quadrant pain - Heart failure, unspecified - Old myocardial infarction - alf (current) use of insulin - Unspecified asthma, uncomplicated - 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 - Type 2 diabetes mellitus without complications - Other casework specialist (current) drug therapy - Cellulitis of abdominal wall - Allergy status to other drugs, medicaments and biological substances status 09/09/2018 07:55 [facility] [place] TYPE: Emergency COMPLAINT: - COUGH DIAGNOSES: - Personal history of nicotine dependence - Allergy status to other drugs, medicaments and biological substances status - Cough - Type 2 diabetes mellitus without complications - Pneumonia, unspecified organism - Other residential (current) drug therapy - alf (current) use of insulin - Chronic sinusitis, unspecified 08/21/2018 15:13 [facility] TYPE: Emergency COMPLAINT: - DIFFICULTY BREATHING DIAGNOSES: - Old myocardial infarction - 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 - Other casework specialist (current) drug therapy - Heart failure, unspecified [...] asthma, uncomplicated - Chest pain, unspecified - alf (current) use of insulin - Type 2 diabetes mellitus without complications - Allergy status to other drugs, medicaments and biological substances status - Other residential (current) drug therapy - Viral infection, unspecified 05/13/2018 22:31 [facility] [place] TYPE: Emergency COMPLAINT: - R HAND NUMBNESS DIAGNOSES: - Allergy status to other drugs, medicaments and biological substances status - Personal history of nicotine dependence - Hyperkalemia - Heart failure, unspecified - Anesthesia of skin - Paresthesia of skin - Other casework specialist (current) drug therapy - Unspecified asthma, uncomplicated - Other chronic pain - Type 2 diabetes mellitus without complications - alf (current) use of insulin - Old myocardial infarction 04/21/2018 09:15 [facility] [place] TYPE: Emergency COMPLAINT: - VOMITING/DIARRHEA DIAGNOSES: - Proteinuria, unspecified - Personal history of transient ischemic attack (TIA), and cerebral infarction without residual deficits - Other residential (current) drug therapy - Personal history of nicotine dependence - 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 - Unspecified asthma, uncomplicated - Type 2 diabetes mellitus without complications - Heart failure, unspecified - Diarrhea, unspecified - Allergy status to other drugs, medicaments and biological substances status INPATIENT VISIT TRACKING (12 MO.) 12/02/2018 21:21 [facility] TYPE: Observation DIAGNOSES: - Vision Distrubances - Weakness 08/05/2018 10:20 [facility] TYPE: Cardiology DIAGNOSES: - Ischemic cardiomyopathy - Heart failure, unspecified - Atherosclerotic heart disease of [place] coronary artery without angina pectoris - Precordial pain [id number]
[2019-04-21] MEDS ORDERED: ZITHROMAX250 MG PO (10:28)
== END 2019-04-21 10:50 | disposition home or self-care (01) ==
LOC: ED 08:54
DX: J06.9 Acute upper respiratory infection, unspecified (principal); E11.9 Type 2 diabetes mellitus without complications; J45.909 Unspecified asthma, uncomplicated; I50.9 Heart failure, unspecified; Z87.891 Personal history of nicotine dependence; Z88.1 Allergy status to other antibiotic agents
CPT/HCPCS: 71046; 94640; 99283-25

== ENCOUNTER 2019-05-23 09:17 | Emergency (ER) | payer OTHER ==
[~2019-05-23] VITALS: Ht 160 cm; Wt 85.7 kg
--- OUTSIDE RECORDS SUMMARY | ~2019-05-23 | XMS | Encounter Summary ---
Demographics + + + | Address | [address] | | | [place] [address] | + + + | Home Phone | | + + + | Preferred Language | Unknown | + + + | Marital Status | | + + + | Bahai Affiliation | 1041 | + + + [...] + | Sachin Dwyer | ECON | [address] | | | | | [place] | | + + + + + | Abbey Cox | ECON | Unknown | | + + + + + Care Team Providers + +------+ + | Care Audio Operator Name | Role | Phone | + +------+ + | Bernadette Armendariz PA-C | BEBE | Unavailable | + +------+ + Encounter Details +--------+ + + + + | Date | Type | Department | Care Team | Description | +--------+ + + + + | 03/16/ | Orders Only | [facility] | James Pearce MD | Essential (primary) | | 2018 | | NEPRHOLOGY [place] | [address] | hypertension; Type 2 | | | | [address] | [address] [place], [place] | diabetes mellitus | | | | [address] [place], [place] | [address] | with complications | | | | [address] | | ([facility]); Acute kidney | | | | [phone] | | failure ([facility]) | +--------+ + + + + Social [...] 2019 | Visit | | [address] [facility] [address] | | | | | | [address] [facility] [place] | | | | | | [address] | | | | | | | | +--------+---------+ + + + + +--------+ + + | Name | Priori | Associated Diagnoses | Order Schedule | | | ty | | | + +--------+ + + | Iron and Iron Binding Capacity | Routin | Essential | Expected: | | | e | (primary) | 08/13/2018, Expires: | | | | hypertension Type 2 | 08/11/2019 | | | | diabetes mellitus | | | | | with complications | | | | | (HCC) Acute kidney | | | | | failure (HCC) | | + +--------+ + + documented as of this encounter Visit Diagnoses + + | Diagnosis | + + | Essential (primary) hypertension Unspecified essential hypertension | + + | Type 2 diabetes mellitus with complications (HCC) Type II or unspecified type | | diabetes mellitus with unspecified complication, not stated as uncontrolled | + + | Acute kidney failure (HCC) Acute kidney failure, unspecified | + + documented in this encounter"
--- OUTSIDE RECORDS SUMMARY | ~2019-05-23 | XMS | Clinical Summary ---
Demographics + + + | Address | [address] | | | [place] [address] | + + + | Home Phone | | + + + | Preferred Language | Unknown | + + + | Marital Status | Unknown | + + + | Jain Affiliation | Unknown | + + + | Race | Unknown | + + + | Ethnic Group | Unknown | + + + Author + + + | Author | [employer] (Historical as of | | | 03-07-19) | + + + | Organization | [facility] [employer] (Historical as of | | | 03-07-19) | + + + | Address | Unknown | + + + | Phone | Unavailable | + + + Support + + +---------+ + | Name | Relationship | Address | Phone | + + +---------+ + | Ciriano,Sachin | ECON | Unknown | | + + +---------+ + | KennyBryan | ECON | Unknown | | + + +---------+ + Care Team Providers + +------+ + | Care Financial Operations Consultant Name | Role | Phone | + +------+ + | Maribel French | PP | | + +------+ + Allergies + + + + + + | Active Allergy | Reactions | Severity | Noted | Comments | | | | | Date | | + + + + + + | Quinine | Hallucinations | Medium | 07/18/ | | | | | | 18 | | + + + + + + Current Medications + + +--------+---------+------+------+-------+ | Prescription | Sig. | Disp. | Refills | Star | End | Statu | | | | | | t | Date | s | | | | | | Date | | | + + +--------+---------+------+------+-------+ | insulin glargine | Inject 9 Units into | | | | | Activ | | (LANTUS) 100 UNIT/ML | the skin every | | | | | e | | injection | morning. | | | | | | + + +--------+---------+------+------+-------+ | acetaminophen | Take 325 mg by mouth | | | | | Activ | | (TYLENOL) 325 MG | every 6 (six) hours | | | | | e | | tablet | as needed for Pain. | | | | | | + + +--------+---------+------+------+-------+ | melatonin 1 MG | Take 6 mg by mouth | | | | | Activ | | tablet | nightly as needed. | | | | | e | + + +--------+---------+------+------+-------+ | atorvastatin | Take 10 mg by mouth | | | | | Activ | | (LIPITOR) 10 MG | nightly. | | | | | e | | tablet | | | | | | | + + +--------+---------+------+------+-------+ | aspirin 81 MG EC | Take 81 mg by mouth | | | | | Activ | | tablet | daily. | | | | | e | + + +--------+---------+------+------+-------+ | fexofenadine | Take 180 mg by mouth | | | | | Activ | | (TIAN) 180 MG | as needed. | | | | | e | | tablet | | | | | | | + + +--------+---------+------+------+-------+ | ascorbic acid | Take 1 tablet by | 30 | 11 | /2 | 07/23 | Activ | | (VITAMIN C) 500 MG | mouth daily. | tablet | | / | 08/10 | e | | tablet | | | | 19 | 20 | | + + +--------+---------+------+------+-------+ | ferrous sulfate, | Take 1 tablet by | 30 | 2 | /2 | 2 | Activ | | 65 FE, 325 (65 FE) | mouth daily with | tablet | | / | 20 | e | | MG tablet | breakfast. | | | 19 | 20 | | + + +--------+---------+------+------+-------+ | cholecalciferol | Take 2,000 Units by | 90 | 2 | /2 | 07/23 | Activ | | 2000 units TABS | mouth daily. | tablet | | 1/20 | /20 | e | | | | | | 19 | 20 | | + + +--------+---------+------+------+-------+ | traMADol (ULTRAM) | Take 1 tablet by | 30 | 0 | 01/2 | | Activ | | 50 MG tablet | mouth every 6 (six) | tablet | | 1/20 | | e | | | hours as needed. | | | 19 | | | + + +--------+---------+------+------+-------+ | carvedilol (COREG) | Take 6.25 mg by | | | | | Activ | | 6.25 MG tablet | mouth 2 (two) times | | | | | e | | | daily with meals. | | | | | | + + +--------+---------+------+------+-------+ | ondansetron | Take 4 mg by mouth 3 | | | | | Activ | | (ZOFRAN) 4 MG tablet | (three) times daily | | | | | e | | | as needed for | | | | | | | | Nausea. | | | | | | + + +--------+---------+------+------+-------+ | hydrOXYzine | Take 25 mg by mouth | | | | | Activ | | (ATARAX) 25 MG | 3 (three) times | | | | | e | | tablet | daily as needed for | | | | | | | | Itching. | | | | | | + + +--------+---------+------+------+-------+ | albuterol | Take 2.5 mg by | | | | | Activ | | (PROVENTIL) (2.5 | nebulization every 6 | | | | | e | | MG/3ML) 0.083% | (six) hours as | | | | | | | nebulizer solution | needed for Wheezing. | | | | | | + + +--------+---------+------+------+-------+ | omeprazole | Take 20 mg by mouth | | | | | Activ | | (PRILOSEC) 20 MG | every morning before | | | | | e | | capsule | breakfast. | | | | | | + + +--------+---------+------+------+-------+ | | Inhale 2 puffs into | | | | | Activ | | mometasone-formotero | the lungs 2 (two) | | | | | e | | l (DULERA) 100-5 | times daily. | | | | | | | MCG/ACT inhaler | | | | | | | + + +--------+---------+------+------+-------+ | amLODIPine | Take 1 tablet by | 30 | 0 | 05/1 | 05/1 | Activ | | (NORVASC) 5 MG | mouth daily. | tablet | | 6/20 | 5/20 | e | | tablet | | | | 19 | 20 | | + + +--------+---------+------+------+-------+ | losartan (COZAAR) | Take 1 tablet by | 30 | 0 | 05/1 | 05/1 | Activ | | 100 MG tablet | mouth daily. | tablet | | 6/20 | 5/20 | e | | | | | | 19 | 20 | | + + +--------+---------+------+------+-------+ Active Problems + + + | Problem | Noted Date | + + + | Right sided weakness | 12/02/2018 | + + + | Visual changes | 12/02/2018 | + + + | Falls | 12/02/2018 | + + + | CKD (chronic kidney disease), stage IV ([facility]) | 11/17/2018 | + + + | Anemia of chronic renal failure, stage 4 (severe) ([facility]) | 11/17/2018 | + + + | Nephrotic range proteinuria | 11/17/2018 | + + + | Secondary hyperparathyroidism (HCC) | 11/17/2018 | + + + | Vitamin D deficiency | 11/17/2018 | + + + | Acute renal failure superimposed on stage 4 chronic kidney | 08/10/2018 | | disease (HCC) | | + + + | Non-ischemic cardiomyopathy (HCC) | 08/10/2018 | + + + | Essential (primary) hypertension | 08/06/2018 | + + + | Type 2 diabetes mellitus with diabetic nephropathy, with | 08/06/2018 | | long-term current use of insulin (HCC) | | + + + | Precordial pain | 07/18/2018 | + + + Resolved Problems + + + + | Problem | Noted | Resolved | | | Date | Date | + + + + | Chronic systolic heart failure (HCC) | 08/05/19 | | | | 19 | 9 | + + + + | Hyperkalemia | 08/05/19 | | | | 19 | 9 | + + + + | Ischemic cardiomyopathy | 07/18/20 | | | | 18 | 9 | + + + + Encounters +--------+ + + + + | Date | Type | Specialty | Care Team | Description | +--------+ + + + + | 03/06/ | Telephone | | Luis, | | | 2018 | | | JOSESITO Suarez | | +--------+ + + + + [...] + + + | Blood Pressure | 172/79 | 12/04/2018 8:17 AM PDT | + + + + | Pulse | 71 | 12/04/2018 8:17 AM PDT | + + + + | Temperature | 36.8 C (98.2 F) | 12/04/2018 7:50 AM PDT | + + + + | Respiratory Rate | 20 | 12/04/2018 7:50 AM PDT | + + + + | Oxygen Saturation | 97% | 12/04/2018 7:50 AM PDT | + + + + | Inhaled Oxygen | - | - | | Concentration | | | + + + + | Weight | 88.5 kg (195 lb) | 12/02/2018 9:30 PM PDT | + + + + | Height | 160 cm (5' 3") | 12/02/2018 9:30 PM PDT | + + + + | Body Mass Index | 34.54 | 12/02/2018 9:30 PM PDT | + + + + Plan of Treatment + + + + + | Health Maintenance | Due Date | Last Done | Comments | + + + + + | Diabetic Eye Exam | | | | | | 7 | | | + + + + + | Diabetic Foot Exam | | | | | | 7 | | | + + + + + | Vaccine: | | | | | Dtap/Tdap/Td (1 - | 6 | | | | Tdap) | | | | + + + + + | Vaccine: | | | | | Pneumococcal 19-64 | 6 | | | | Highest Risk (1 of 3 | | | | | - PCV13) | | | | + + + + + | Cervical Cancer | | | | | Screening (Pap) | 7 | | | + + + + + | Breast Cancer | | | | | Screening | 7 | | | | (Mammogram) | | | | + + + + + | Colon Cancer | | | | | Screening [...] | | | | | (#1) | 9 | | | + + + + + | Hemoglobin A1c | | 12/03/2018, 11/12/2018, | | | | 9 | 08/06/2018 | | + + + + + Results Not on filefrom Last 3 Months Insurance + +--------+ +------+-------+ + | Payer | Benefi | Subscriber | Type | Phone | Address | | | t Plan | ID | | | | | | / | | | | | | | Group | | | | | + +--------+ +------+-------+ + | MEDICAID | [place] | [id number] | | | [address] | | | N | | | | [place], [place] | | | [place] | | | | [address] | | | [employer] STEEP TENDER | | | | | + +--------+ +------+-------+ + | /[employer] | YELLOW | [id number] | | | | | PLANS | [place] | | | | | + +--------+ +------+-------+ + + +--------+ +--------+ + + | Guarantor Name | Accoun | Relation to | Date | Phone | Billing Address | | | t Type | Patient | of | | | | | | | | | | + +--------+ +--------+ + + | KENNY,JOSE G MALGORZATA | Person | Self [birth year] Home: | [address] | | | christopher/Kyle | | 1954 | [phone] | [place] | | | jeni | | | [birth year] | [address] | + +--------+ +--------+ + +
--- OUTSIDE RECORDS SUMMARY | ~2019-05-23 | XMS | Encounter Summary ---
Demographics + + + | Address | [address] | | | [place] [address] | + + + | Home Phone | | + + + | Preferred Language | Unknown | + + + | Marital Status | | + + + | Moravian Affiliation | 1041 | + + + [...] + | Sachin Dwyer | ECON | [phone] | | | | | [place] | | + + + + + | Abbey Cox | ECON | Unknown | | + + + + + Care Team Providers + +------+ + | Care Parts Remover Name | Role | Phone | + +------+ + | Bernadette Armendariz PA-C | BEBE | Unavailable | + +------+ + Encounter Details +--------+ + + + + | Date | Type | Department | Care Team | Description | +--------+ + + + + | 03/10/ | Orders Only | [facility] | James Pearce MD | | | 2019 | | NEPHROLOGY [place] | [address] [facility] | | | | | [address] | [address] [facility] | | | | | [facility] [address] | [id number] | | | | | [place], [place] | | | | | | [address] | | | | | | [phone] | | | +--------+ + + + [...] Visit | | [address] [facility] | | | | | | [address] [place] | | | | | | [address] | | | | | | | | +--------+---------+ + + + documented as of this encounter Visit Diagnoses Not on filedocumented in this encounter"
--- OUTSIDE RECORDS SUMMARY | ~2019-05-23 | XMS | Encounter Summary ---
Demographics + + + | Address | [address] | | | [place] [address] | + + + | Home Phone | | + + + | Preferred Language | Unknown | + + + | Marital Status | | + + + | Samaritan Affiliation | Unknown | + + + | Race | or | + + + | Ethnic Group | Not or | + + + Author + + + | Author | [facility] [employer] [facility] | + + + | Organization | [facility] | + + + | Address | Unknown | + + + | Phone | Unavailable | + + + Support + + + + + | Name | Relationship | Address | Phone | + + + + + | Angene Bill | ECON | [address] | | | | [address], [place] | | | | | [address] | | + + + + + Care Team Providers + +------+ + | Care Building Services Supervisor Name | Role | Phone | [...] | | | | | livia | [place], [place] | | | | | | [address] | | | +--------+ + + + [...]
--- OUTSIDE RECORDS SUMMARY | ~2019-05-23 | XMS | Encounter Summary ---
Demographics + + + | Address | [address] | | | [place] [address] | + + + | Home Phone | | + + + | Preferred Language | Unknown | + + + | Marital Status | | + + + | Scientology Affiliation | 1041 | + + + | Race | Unknown | + + + | Ethnic Group | Unknown | + + + Author + + + | Author | [facility] | | | and [place] | + + + | Organization | [facility] | | | and [place] | + + + | Address | Unknown | + + + | Phone | Unavailable | + + + Support + + + + + | Name | Relationship | Address | Phone | + + + + + | BRYAN COX | ELIVRA | Unknown | | + + + + + | Sachin Dwyer | ECON | [address] | | | | | [place] | | + + + + + | Bryan Cxo | ECON | Unknown | | + + + + + Care Team Providers + +------+ + | Care Director Investment Banking Name | Role | Phone | + +------+ + | Bernadette Armendariz PA-C | BEBE | Unavailable | + +------+ + Encounter Details +--------+---------+ + + + | Date | Type | Department | Care Team | Description | +--------+---------+ + + + | 03/16/ | Office | [facility] | James Pearce MD | CKD (chronic kidney | | 2019 | Visit | NEPHROLOGY [place] | [address] [facility] | disease), stage IV | | | | [address] | [address] [place], [place] | ([facility]) (Primary Dx); | | | | [address] | [address] | Vitamin D | | | | [place], [place] | | deficiency; Anemia | | | | [address] | | of chronic renal | | | | [phone] | | failure, stage 4 | | | | | | (severe) ([facility]); | | | | | | Secondary | | | | | | hyperparathyroidism | | | | | | ([facility]); 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, with | | | | | | long-term current | | | | | | use of insulin | | | | | | ([facility]); Essential | | | | | | [...] | Blood Pressure | 158/62 | 03/16/2019 1446 PDT | + + + + | Pulse | 62 | 03/16/2019 1446 PDT | + + + + | Temperature | - | - | + + + + | Respiratory Rate | - | - | + + + + | Oxygen [...] 03/16/20191445 PDT | + + + + documented in this encounter Patient Instructions Patient Instructions James Pearce MD - 03/16/2019 14:10 PDTDiscussions/Recommendations: I discussed today with Ms. Cox the meaning of her severe CKD and [...] RFP, CBC, Iron studies, Ferritin, intact PTH, 06-ujnffmt-zsilijw D befor e she comes back in 3 months. P DT documented in this encounter Progress Notes James Pearce MD - 03/16/2019 1410 PDT Progress Notes by James Pearce MD at 11/17/18 5430 Author: James Pearce MD Service: (none) Author Type: Physician Filed: 11/17/18 1422 Encounter Date: 11/17/2018 Status: Signed Animation Producer: James Pearce MD (Physician) Patient Active Problem List Diagnosis Precordial pain Essential hypertension Type 2 diabetes mellitus with complication, with long-term current use of insulin (HCC) Acute renal failure superimposed on stage 4 chronic kidney disease (HCC) Non-ischemic cardiomyopathy (HCC) Dear Colleague: I saw Ms. Cox in F/U today. As you are familiar [...] LABIRON 82.2 (A) 11/12/2018 LABPROT 4.982 08/07/2018 [id number] 8.5 (A) 11/12/2018 Assessment: Ms. Cox is a 63 y.o. female patient with [...] Euvolumic. Discussions/Recommendations: I discussed today with Ms. Cox the meaning of her severe CKD and [...] RFP, CBC, Iron studies, Ferritin, intact PTH, 34-lpbxbly-hvmumsq D befor e she comes back in 3 months. Thank you Colleague for the opportunity to see this patient in F/U today. Please do not hes itate to call me at any time with questions or concerns. Truly yours, James Pearce MD FACP [facility] documented in this encount er Plan of Treatment +--------+---------+ + + + | Date | Type | Specialty | Care Team | Description | +--------+---------+ + + + | 06/22/ | Office | Nephrology | James Pearce MD | | | 2019 | Visit | | [address] [facility] | | | | | | [address] [place], [place] | | | | | | [id number] | | | | | | | [...]
--- OUTSIDE RECORDS SUMMARY | ~2019-05-23 | XMS | Encounter Summary ---
Demographics + + + | Address | [address] | | | [place] [address] | + + + | Home Phone | | + + + | Preferred Language | Unknown | + + + | Marital Status | | + + + | Religion Affiliation | Unknown | + + + | Race | or | + + + | Ethnic Group | Not or | + + + Author + + + | Author | [facility] | + + + | Organization | [facility] | + + + | Address | Unknown | + + + | Phone | Unavailable | + + + Support + + + + + | Name | Relationship | Address | Phone | + + + + + | Angene Bill | ECON | [address] | | | | [address], [place] | | | | | [address] | | + + + + + Care Team Providers + +------+ + | Care Medical Language Specialist Name | Role | Phone | [...] | | | | | livia | [place], [place] | | | | | | [address] | | | +--------+ + + + [...]
--- OUTSIDE RECORDS SUMMARY | ~2019-05-23 | XMS | Encounter Summary ---
Demographics + + + | Address | [address] | | | [place] [address] | + + + | Home Phone | | + + + | Preferred Language | Unknown | + + + | Marital Status | | + + + | Episcopal Affiliation | 1041 | + + + [...] + | Sachin Dwyer | ECON | [address] | | | | | [place] | | + + + + + | Abbey Cox | ECON | Unknown | | + + + + + Care Team Providers + +------+ + | Care Separations Scientist Name | Role | Phone | + +------+ + | Bernadette Armendariz PA-C | BEBE | Unavailable | + +------+ + Encounter Details +--------+ + + + + | Date | Type | Department | Care Team | Description | +--------+ + + + + | 03/11/ | Orders Only | [facility] | James Pearce MD | Essential | | 2019 | | NEPHROLOGY [place] | [address] [place] | hypertension | | | | [address] | [address] [place], [place] | (Primary Dx); Type 2 | | | | [address] | [address] | diabetes mellitus | | | | [place], [place] | | with complication, | | | | [address] | | with long-term | | | | [phone] | | current use of | | [...] | | [address] [facility] [place] | | | | | | [address] [place] | | | | | | [address] | | | | | | | [...]
--- OUTSIDE RECORDS SUMMARY | ~2019-05-23 | XMS | Encounter Summary ---
Demographics + + + | Address | [address] | | | [place] [address] | + + + | Home Phone | | + + + | Preferred Language | Unknown | + + + | Marital Status | | + + + | Spiritism Affiliation | 1041 | + + + | Race | Unknown | + + + | Ethnic Group | Unknown | + + + Author + + + | Author | [facility] | | | and [place] | + + + | Organization | [facility] | | [...] + | Sachin Dwyer | ECON | [address] | | | | | [place] | | + + + + + | Abbey Cox | ECON | Unknown | | + + + + + Care Team Providers + +------+ + | Care Scrum Master Name | Role | Phone | + +------+ + | Bernadette Armendariz PA-C | BEBE | Unavailable | + +------+ + Encounter Details +--------+ + + + + | Date | Type | Department | Care Team | Description | +--------+ + + + + | 03/10/ | Orders Only | [facility] | James Pearce MD | | | 2018 | | NEPHROLOGY [place] | [address] [place] | | | | | [address] [place] | [address] [place], [place] | | | | | [address] [place], [place] | [id number] | | | | | [address] | | | | | | [phone] | | | +--------+ + + + [...] 2019 | Visit | | [address] [facility] | | | | | | [address] [place] | | | | | | [address] | | | | | | | | +--------+---------+ + + + documented as of this encounter Visit Diagnoses Not on filedocumented in this encounter"
--- OUTSIDE RECORDS SUMMARY | ~2019-05-23 | XMS | Encounter Summary ---
Demographics + + + | Address | [address] | | | [place] [address] | + + + | Home Phone | | + + + | Preferred Language | Unknown | + + + | Marital Status | Unknown | + + + | Mu-Ism Affiliation | Unknown | + + + | Race | Unknown | + + + | Ethnic Group | Unknown | + + + Author + + + | Author | [facility] (Historical as of | | | 03-07-19) | + + + | Organization | [facility] (Historical as of | | | 03-07-19) [...] Providers + +------+ + | Care Director Learning And Development Name | Role | Phone | + [...] [address] | | | | | | [place] [address] | | | | | | [phone] | | | +--------+ + + + [...]
--- OUTSIDE RECORDS SUMMARY | ~2019-05-23 | XMS | Clinical Summary ---
Demographics + + + | Address | [address] | | | [place] [address] | + + + | Home Phone [...] [address] | | | | | [address] | | + + + + + Care Team Providers + +------+ + | Care Topper Press Operator Name | Role | Phone | + +------+ + PCP | Unavailable | + +------+ + Source Comments CHELY is fully live on both [facility] and [facility] InPatient.[facility]3] Allergies Not on File Medications Not on [...]
--- OUTSIDE RECORDS SUMMARY | ~2019-05-23 | XMS | Clinical Summary ---
Demographics + + + | Address | [address] | | | [place] [address] | + + + | Home Phone [...] + | Sachin Dwyer | ECON | [address] | | | | | [place] | | + + + + + | Abbey Cox | ECON | Unknown | | + + + + + Care Team Providers + +------+ + | Care Structural Drafter Name | Role | Phone | + [...] + + | Overview: Echocardiogram done at [facility] on 01/28/18 | | shows overall left [...] | | | | | 4 (severe) ([facility]); | | | | | | Vitamin D deficiency | +--------+ + + + + | 03/17/ | Orders Only | Nephrology | James Pearce MD | Essential (primary) | | 2019 | | | | hypertension; | | | | | | Chronic kidney | | | | | | disease, stage IV | | | | | | (severe) ([facility]); | | | | | | Proteinuria; | | | | | | Secondary | | | | | | hyperparathyroidism | | | | | | of renal origin | | | | | | ([facility]); Vitamin D | | | | | | deficiency | +--------+ + + + + | 03/16/ | Office | Nephrology | James Pearce MD | CKD (chronic kidney | | 2019 | Visit | | | disease), stage IV | | | | | | ([facility]) (Primary Dx); | | | | | | Vitamin D | | | | | | deficiency; Anemia | | | | | | of chronic renal | | | | | | failure, stage 4 | | | | | | (severe) ([facility]); | | | | | | Secondary | | | | | | hyperparathyroidism | | | | | | ([facility]); 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, with | | | | | | long-term current | | | | | | use of insulin | | | | | | ([facility]); Essential | | | | | | [...] complications | | | | | | ([facility]); Acute kidney | | | | | | failure ([facility]) | +--------+ + + + + | 03/16/ | Documentati | Nephrology | Luis, | Results (03/13/19) | | 2019 | on | | Maninder Suarez | | | | | | Manager Risk | | +--------+ + + + + | 03/11/ | Orders Only | Nephrology | James Pearce MD | Essential (primary) | | 2018 | | | | hypertension | | | | | | (Primary Dx); CKD | | | | | | (chronic kidney | | | | | | disease), stage IV | | | | | | ([facility]); Nephrotic | | | | | | range proteinuria; | | | | | | Secondary | | | | | | hyperparathyroidism | | | | | | ([facility]); Vitamin D | | | | | [...] complications | | | | | | ([facility]); Acute kidney | | | | | | failure ([facility]); | | | | | | Chronic kidney | | | | | | disease, stage IV | | | | | | (severe) ([facility]); | | | | | | Proteinuria; | | | | | | Secondary | | | | | | hyperparathyroidism | | | | | | of renal origin | | | | | | ([facility]); Vitamin D | | | | | [...] 2019 | Visit | | [address] [facility] | | | | | | [address] [place], [place] | | | | | | [address] | | | | | | | [...] 1.005 - 1.030 | | | | [place] | | | | | + + [...] | | + +--------+ +--------+ +---------+--------+ | [facility] | IHS | [id number] | | | | Indemn | | SERVICE | YELLOW | | 018-Pr | | | ity | | | HAWK | | esent | | | | + +--------+ +--------+ +---------+--------+ | [employer] | MODA | [id number] | 01/28/20 | [phone] | | Medica | | MEDICAID HMO | HEALTH | | 18-Pre | 1 | | id | | | MDCD | | sent | | | | | | [place] | | | | | | + +--------+ +--------+ +---------+--------+ | [facility] | IHS | [id number] | | | | Indemn | | SERVICE | YELLOW | | 018-Pr | | | ity | | | HAWK | | esent | | | | + +--------+ +--------+ +---------+--------+ | [employer] | MODA | [id number] | 02/23/20 | [phone] | | Medica | | MEDICAID HMO [...] +--------+ +--------+ + + | Maria Ines Cxo | Person | Self | [birth year] | [address] | | | al/Fam | | 1954 | [phone] | [place] | | | jeni | | | 4 (Home) | [address] | + +--------+ +--------+ + + | Maria Ines Cox | Person | Self | [birth year] | | [address] | | | al/Fam | | 1954 | [phone] | [place] | | | jeni | | | 2 (Home) | [address] | + +--------+ +--------+ + + Advance Directives Patient has advance care planning documents on file. For more information, please contact:[facility] [place] [address]
--- OUTSIDE RECORDS SUMMARY | ~2019-05-23 | XMS | Encounter Summary ---
Demographics + + + | Address | [address] | | | [place] [address] | + + + | Home Phone | | + + + | Preferred Language | Unknown | + + + | Marital Status | | + + + | Synagogue Affiliation | 1041 | + + + [...] + | Sachin Dwyer | ECON | [address] | | | | | [place] | | + + + + + | Abbey Cox | ECON | Unknown | | + + + + + Care Team Providers + +------+ + | Care Medical Case Worker Name | Role | Phone | + +------+ + | Bernadette Armendariz PA-C | BEBE | Unavailable | + +------+ + Encounter Details +--------+ + + + + | Date | Type | Department | Care Team | Description | +--------+ + + + + | 03/11/ | Orders Only | [facility] | James Pearce MD | Essential (primary) | | 2019 | | NEPHROLOGY [place] | [address] [place] | hypertension | | | | [address] [place] | [address] [place], [place] | (Primary Dx); CKD | | | | [address] [place], [place] | [address] | (chronic kidney | | | | [address] | | disease), stage IV | | | | [phone] | | (HCC); Nephrotic | | | | | | range proteinuria; | | | | | | Secondary | | | | | | hyperparathyroidism | | | | | | ([facility]); Vitamin D | | | [...] 2019 | Visit | | [address] [facility] | | | | | | 160 [place], [place] | | | | | | [address] | | | | | | | [...]
--- OUTSIDE RECORDS SUMMARY | ~2019-05-23 | XMS | Encounter Summary ---
Demographics + + + | Address | [address] | | | [place] [address] | + + + | Home Phone [...] + | Sachin Dwyer | ECON | [address] | | | | | [place] | | + + + + + | Abbey Cox | ECON | Unknown | | + + + + + Care Team Providers + +------+ + | Care Cargo Broker Name | Role | Phone | + +------+ + | Bernadette Armendariz PA-C | BEBE | Unavailable | + +------+ + Encounter Details +--------+ + + + + | Date | Type | Department | Care Team | Description | +--------+ + + + + | 02/23/ | Orders Only | [facility] | Provider, | Essential (primary) | | 2018 | | SYSTEM GENERIC OP | [address] | hypertension; Type 2 | | | | [address] | [address] | diabetes mellitus | | | | [address] [place], [place] | [place] [address] | with complications | | | | [address] | ([facility]); Acute kidney | | | | [phone] | | failure ([facility]); | | | | | | Chronic kidney | | | | | | disease, stage IV | | | | | | (severe) ([facility]); | | | | | | Proteinuria; | | | | | | Secondary | | | | | | hyperparathyroidism | | | | | | of renal origin | | | | | | ([facility]); Vitamin D | | | [...] 2019 | Visit | | [address] [facility] [place] | | | | | | [address] [place], [place] | | | | | | [address] | | | | | | | [...] | + +--------+ + + | Renal Function Panel | Routin | Essential | Expected: | [...] renal origin | | | | | (HCC) Vitamin D | | | | | deficiency | | + +--------+ + + | CBC with Differential | Routin | Essential | Expected: | [...] renal origin | | | | | (HCC) Vitamin [...] renal origin | | | | | (HCC) Vitamin D | | | | | deficiency | | + +--------+ + + | Parathyroid Hormone, Intact | Routin | Essential | Expected: | [...] renal origin | | | | | (HCC) Vitamin D | | | | | deficiency | | + +--------+ + + | Vitamin D, Deficiency Screen | Routin | Essential | Expected: | | (25-Hydroxy) | e | (primary) | 02/02/2019, Expires: [...] renal origin | | | | | ([facility]) Vitamin D | | | | | deficiency | | + +--------+ + + | Urinalysis with Microscopic if | Routin | Essential | Expected: | | Indicated | e | (primary) | 02/02/2019, Expires: | | | | hypertension | 11/18/2019 | | | | Chronic kidney | | | | | disease, stage IV | | | | | (severe) ([facility]) | | | | | Proteinuria | | | | | Secondary | | | | | hyperparathyroidism | | | | | of renal origin | | | | | ([facility]) Vitamin D | | | | | deficiency | | + +--------+ + + | Protein/Creatinine Ratio, Urine | Routin | Essential | Expected: | | | e | (primary) | 02/02/2019, Expires: | | | | hypertension | 11/18/2019 | | | | Chronic kidney | | | | | disease, stage IV | | | | | (severe) ([facility]) | | | | | Proteinuria | | | | | Secondary | | | | | hyperparathyroidism | | | | | of renal origin | | | | | ([facility]) Vitamin D | | | [...]
--- OUTSIDE RECORDS SUMMARY | ~2019-05-23 | XMS | Encounter Summary ---
Demographics + + + | Address | [address] | | | [place] [address] | + + + | Home Phone [...] + | Sachin Dwyer | ECON | [address] | | | | | [place] | | + + + + + | Abbey Cox | ECON | Unknown | | + + + + + Care Team Providers + +------+ + | Care Hairspring Inspector Name | Role | Phone | + +------+ + | Bernadette Armendariz PA-C | BEBE | Unavailable | + +------+ + Encounter Details +--------+ + + + + | Date | Type | Department | Care Team | Description | +--------+ + + + + | 03/17/ | Orders Only | [facility] | James Pearce MD | Essential (primary) | | 2019 | | NEPHROLOGY [place] | [address] [place] | hypertension; | | | | [address] [place] | [address] [place], [place] | Chronic kidney | | | | [address] [place], [place] | [address] | disease, stage IV | | | | [address] | | (severe) (HCC); | | | | [phone] | | Proteinuria; | | | | [...] | Visit | | [address] [facility] | | | | | | 160 [place], [place] | | | | | | [address] | | | | | | | [...] renal origin | | | | | ([facility]) Vitamin D | | | [...]
--- OUTSIDE RECORDS SUMMARY | ~2019-05-23 | XMS | Encounter Summary ---
Demographics + + + | Address | [address] | | | [place] [address] | + + + | Home Phone | | + + + | Preferred Language | Unknown | + + + | Marital Status | | + + + | Yazdanism Affiliation | 1041 | + + + | Race | Unknown | + + + | Ethnic Group | Unknown | + + + Author + + + | Author | [facility] | | | and [place] | + + + | Organization | [facility] | | | [...] + | Sachin Dwyer | ECON | [address] | | | | | [place] | | + + + + + | Abbey Cox | ECON | Unknown | | + + + + + Care Team Providers + +------+ + | Care Management Coordinator Name | Role | Phone | + +------+ + | Bernadette Armendariz PA-C | BEBE | Unavailable | + +------+ + Encounter Details +--------+ + + + + | Date | Type | Department | Care Team | Description | +--------+ + + + + | 03/10/ | Orders Only | [facility] | James Pearce MD | | | 2018 | | NEPHROLOGY [place] | [address] [place] | | | | | [address] [place] | [address] [place], [place] | | | | | [address] [place], [place] | [id number] | | | | | [address] | | | | | | [phone] | | | +--------+ + + + [...] 2019 | Visit | | [address] [facility] | | | | | | [address] [place] | | | | | | [address] | | | | | | | | +--------+---------+ + + + documented as of this encounter Visit Diagnoses Not on filedocumented in this encounter"
--- OUTSIDE RECORDS SUMMARY | ~2019-05-23 | XMS | Encounter Summary ---
Demographics + + + | Address | [address] | | | [place] [address] | + + + | Home Phone | | + + + | Preferred Language | Unknown | + + + | Marital Status | | + + + | Mosque Affiliation | 1041 | + + + | Race | Unknown | + + + | Ethnic Group | Unknown | + + + Author + + + | Author | [facility] | | | and [place] | + + + | Organization | [facility] | | | and [...] + | Sachin Dwyer | ECON | [address] | | | | | [place] | | + + + + + | Abbey Cox | ECON | Unknown | | + + + + + Care Team Providers + +------+ + | Care Client Care Representative Name | Role | Phone | + +------+ + | Bernadette Armendariz PA-C | BEBE | Unavailable | + +------+ + Encounter Details +--------+ + + + + | Date | Type | Department | Care Team | Description | +--------+ + + + + | 03/17/ | Orders Only | [facility] | James Pearce MD | Essential (primary) | | 2019 | | NEPHROLOGY [place] | [address] [place] | hypertension; | | | | [address] [place] | [address] [place], [place] | Chronic kidney | | | | [address] [place], [place] | [address] | disease, stage IV | | | | [address] | | (severe) (HCC); | | | | [phone] | | Proteinuria; | | | | [...] 2019 | Visit | | [address] [facility] | | | | | | [address] [place], [place] | | | | | | [address] | | | | | | | [...] renal origin | | | | | ([facility]) Vitamin D | | | [...]
--- OUTSIDE RECORDS SUMMARY | ~2019-05-23 | XMS | Encounter Summary ---
Demographics + + + | Address | [address] | | | [place] [address] | + + + | Home Phone [...] + | Sachin Dwyer | ECON | [address] | | | | | [place] | | + + + + + | Abbey Cox | ECON | Unknown | | + + + + + Care Team Providers + +------+ + | Care Sales Expert Home Theater Name | Role | Phone | + +------+ + | Bernadette Armendariz PA-C | BEBE | Unavailable | + +------+ + Encounter Details +--------+ + + + + | Date | Type | Department | Care Team | Description | +--------+ + + + + | 03/18/ | Orders Only | [facility] | James Pearec MD | Essential (primary) | | 2019 | | NEPHROLOGY [place] | [address] [place] | hypertension | | | | [address] [place] | [address] [place], [place] | (Primary Dx); | | | | [address] [place], [place] | [address] | Secondary | | | | [address] | | hyperparathyroidism | | | | [phone] | | (HCC); CKD (chronic | | | | | | kidney disease), | | | | | | stage IV ([facility]); | | | | | | Anemia of chronic | | | | | | renal failure, stage | | | | | | 4 (severe) ([facility]); | | | | | | Vitamin [...] 2018 | Visit | | [address] [facility] [place] | | | | | | [address] [place] | | | | | | [address] | | | | | | | [...] | | | 4 (severe) ([facility]) | | + +--------+ + + | Ferritin | Routin | CKD (chronic | Expected: | | | e | kidney disease), | 06/18/2019, Expires: | | | | stage IV (HCC) | 03/18/2020 | | | | Anemia of chronic | | | | | renal failure, stage | | | | | 4 (severe) ([facility]) | | + +--------+ + + | [...]
--- OUTSIDE RECORDS SUMMARY | ~2019-05-23 | XMS | Encounter Summary ---
Demographics + + + | Address | [address] | | | [place] [address] | + + + | Home Phone | | + + + | Preferred Language | Unknown | + + + | Marital Status | | + + + | Scientology Affiliation | 1041 | + + + | Race | Unknown | + + + | Ethnic Group | Unknown | + + + Author + + + | Author | [facility] | | | and [place] | + + + | Organization | [facility] | | [...] + | Sachin Dwyer | ECON | [address] | | | | | [place] | | + + + + + | Abbey Cox | ECON | Unknown | | + + + + + Care Team Providers + +------+ + | Care Speech/Language Therapist Name | Role | Phone | [...] | | | [address] [place], [place] | [address] | (chronic kidney | | | | [address] | | disease), stage IV | | | | [phone] | | (HCC); Nephrotic | | | | | | range proteinuria; | | | | | | Secondary | | | | | | hyperparathyroidism | | | | | | ([facility]); Vitamin D | | | [...] | | [address] [facility] | | | | | | [address] [place], [place] | | | | | | [address] | | | | | | | [...]
--- OUTSIDE RECORDS SUMMARY | ~2019-05-23 | XMS | Clinical Summary ---
Demographics + + + | Address | [address] | | | [place] [address] | + + + | Home Phone | | + + + | Preferred Language | Unknown | + + + | Marital Status | Unknown | + + + | Taoist Affiliation | Unknown | + + + | Race | Unknown | + + + | Ethnic Group | Unknown | + + + Author + + + | Author | [facility] (Historical as of | | | 03-07-19) | + + + | Organization | [facility] (Historical as of | | | 03-07-19) [...] Team Providers + +------+ + | Care Sexologist Name | Role | Phone | + [...] | CKD (chronic kidney disease), stage IV ([facility]) | 11/17/2018 | + + + | Anemia of chronic renal failure, stage 4 (severe) ([facility]) | 11/17/2018 | + + + | [...] +------+-------+ + | MEDICAID | [place] | [id number] | | | [address] | | | [address] | | | | [place], [place] | | | [place] | | | | [address] | | | VEGETABLE VENDOR | | | | | + +--------+ +------+-------+ + | /[facility] | YELLOW | [id number] | | | | | PLANS | [...] | Self | [birth year] | Home: | [address] | | | christopher/Kyle | | 1954 | [phone] | [place] | | | jeni | | | [birth year] | [address] | + +--------+ +--------+ + +
--- OUTSIDE RECORDS SUMMARY | ~2019-05-23 | XMS | Encounter Summary ---
Demographics + + + | Address | [address] | | | [place] [address] | + + + | Home Phone [...] + | Sachin Dwyer | ECON | [address] | | | | | [place] | | + + + + + | Abbey Cox | ECON | Unknown | | + + + + + Care Team Providers + +------+ + | Care Upholsterer Apprentice Name | Role | Phone | + [...] + + | 03/16/ | Documentati | [facility] | Luis, | Results (03/13/19) | | 2019 | on | NEPHROLOGY [place] | [facility] | | | | | [address] | Outdoor Illuminating Engineer | | | | | [address] [place] [address] | | | | | | [place] | | | | | | [address] | | | | | | [phone] | | | +--------+ + + + [...] 2018 | Visit | | [address] [facility] | | | | | | [address] [place], [place] | | | | | | [address] | | | | | | | [...] 1.005 - 1.030 | | | | [place] | | | | | + + [...]
--- OUTSIDE RECORDS SUMMARY | ~2019-05-23 | XMS | Encounter Summary ---
Demographics + + + | Address | [address] | | | [place] [address] | + + + | Home Phone [...] + + | Author | [facility] | | | and [place] | + + + | Organization | [facility] | | | and [place] | + [...] + | Sachin Dwyer | ECON | [address] | | | | | [place] | | + + + + + | Abbey Cox | ECON | Unknown | | + + + + + Care Team Providers + +------+ + | Care Bend Up Name | Role | Phone | + +------+ + | Bernadette Armendariz PA-C | BEBE | Unavailable | + +------+ + Encounter Details +--------+ + + + + | Date | Type | Department | Care Team | Description | +--------+ + + + + | 03/10/ | Orders Only | [facility] | James Pearce MD | | | 2019 | | NEPHROLOGY [place] | [facility] [address] [facility] | | | | | [address] | [address] [facility] [place] | | | | | [facility] [address] | [id number] | | | | | [place], [place] | | | | | | [address] | | | | | | [phone] | | | +--------+ + + + [...] Visit | | [address] [facility] | | | | | | [address] [place] | | | | | | [address] | | | | | | | | +--------+---------+ + + + documented as of this encounter Visit Diagnoses Not on filedocumented in this encounter"
--- OUTSIDE RECORDS SUMMARY | ~2019-05-23 | XMS | Encounter Summary ---
Demographics + + + | Address | [address] | | | [place] [address] | + + + | Home Phone [...] + | Sachin Dwyer | ECON | [address] | | | | | [place] | | + + + + + | Abbey Cox | ECON | Unknown | | + + + + + Care Team Providers + +------+ + | Care Manager Ent Name | Role | Phone | + +------+ + | Bernadette Armendariz PA-C | BEBE | Unavailable | + +------+ + Encounter Details +--------+ + + + + | Date | Type | Department | Care Team | Description | +--------+ + + + + | 03/11/ | Orders Only | [facility] | James Pearce MD | Essential | | 2019 | | NEPHROLOGY [place] | [address] [place] | hypertension | | | | [address] | [address] [place], [place] | (Primary Dx); Type 2 | | | | [address] | [address] | diabetes mellitus | | | | [place], [place] | | with complication, | | | | [address] | | with long-term | | | | [phone] | | current use of | | [...] 2019 | Visit | | [address] [facility] [place] | | | | | | [address] [place] | | | | | | [address] | | | | | | | [...]
--- OUTSIDE RECORDS SUMMARY | ~2019-05-23 | XMS | Encounter Summary ---
Demographics + + + | Address | [address] | | | [place] [address] | + + + | Home Phone [...] + | Sachin Dwyer | ECON | [address] | | | | | [place] | | + + + + + | Abbey Cox | ECON | Unknown | | + + + + + Care Team Providers + +------+ + | Care Assistant Refinery Operator Name | Role | Phone | [...] + + | 03/16/ | Documentati | [facility] | Luis, | Results (03/13/19) | | 2019 | on | NEPHROLOGY [place] | [facility] | | | | | [address] | First Coat Operator | | | | | [address] [place] [address] | | | | | | [place] | | | | | | [address] | | | | | | [phone] | | | +--------+ + + + [...] 2018 | Visit | | [address] [facility] | | | | | | [address] [place], [place] | | | | | | [address] | | | | | | | [...] 1.005 - 1.030 | | | | Loda | | | | | + + [...]
--- OUTSIDE RECORDS SUMMARY | ~2019-05-23 | XMS | Encounter Summary ---
Demographics + + + | Address | [address] | | | [place] [address] | + + + | Home Phone [...] + | Sachin Dwyer | ECON | [address] | | | | | [place] | | + + + + + | Bryan Cox | ECON | Unknown | | + + + + + Care Team Providers + +------+ + | Care Asbestos Abatement Worker Name | Role | Phone | + +------+ + | Bernadette Armendariz PA-C | BEBE | Unavailable | + +------+ + Encounter Details +--------+---------+ + + + | Date | Type | Department | Care Team | Description | +--------+---------+ + + + | 03/16/ | Office | [facility] | James Pearce MD | CKD (chronic kidney | | 2019 | Visit | NEPHROLOGY [place] | [address] [facility] | disease), stage IV | | | | [address] | [address] [place], [place] | ([facility]) (Primary Dx); | | | | [address] | [address] | Vitamin D | | | | [place], [place] | | deficiency; Anemia | | | | [address] | | of chronic renal | | | | [phone] | | failure, stage 4 | | | | | | (severe) ([facility]); | | | | | | Secondary | | | | | | hyperparathyroidism | | | | | | ([facility]); 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 P DT documented in this encounter Progress Notes James Pearce MD - 03/16/2019 1410 PDT Progress Notes by James Pearce MD at 11/17/18 7190 Author: James Pearce MD Service: (none) Author Type: Physician Filed: 11/17/18 1428 Encounter Date: 11/17/2018 Status: Signed Transformation Specialist: James Pearce MD (Physician) Patient Active Problem [...] LABIRON 82.2 (A) 11/12/2018 LABPROT 4.982 08/07/2018 [id number] 8.5 (A) 11/12/2018 Assessment: Ms. Cox is [...] RFP, CBC, Iron studies, Ferritin, intact PTH, 93-sigzcby-qawqfjo D befor e she comes back in 3 months. Thank you Colleague for the opportunity to see this patient in F/U today. Please do not hes itate to call me at any time with questions or concerns. Truly yours, James Pearce MD FACP [facility] documented in this encount er Plan of Treatment +--------+---------+ + + + | Date | Type | Specialty | Care Team | Description | +--------+---------+ + + + | 06/22/ | Office | Nephrology | James Pearce MD | | | 2019 | Visit | | [address] [facility] | | | | | | [address] [place], [place] | | | | | | [id number] | | | | | | | [...]
--- OUTSIDE RECORDS SUMMARY | ~2019-05-23 | XMS | Clinical Summary ---
Demographics + + + | Address | [address] | | | [place] [address] | + + + | Home Phone [...] [address] | | | | | [address] | | + + + + + Care Team Providers + +------+ + | Care Welding Estimator Name | Role | Phone | + +------+ + PCP | Unavailable | + +------+ + Source Comments CHELY is fully live on both [facility] and [facility] InPatient.[facility] Allergies Not on File Medications Not [...]
--- OUTSIDE RECORDS SUMMARY | ~2019-05-23 | XMS | Encounter Summary ---
Demographics + + + | Address | [address] | | | [place] [address] | + + + | Home Phone [...] + | Sachin Dwyer | ECON | [address] | | | | | [place] | | + + + + + | Abbey Cox | ECON | Unknown | | + + + + + Care Team Providers + +------+ + | Care Beam Sealer Name | Role | Phone | + +------+ + | Bernadette Armendariz PA-C | BEBE | Unavailable | + +------+ + Encounter Details +--------+ + + + + | Date | Type | Department | Care Team | Description | +--------+ + + + + | 03/16/ | Orders Only | [facility] | James Pearce MD | Essential (primary) | | 2018 | | NEPRHOLOGY [place] | [address] | hypertension; Type 2 | | | | [address] | [address] [place], [place] | diabetes mellitus | | | | [address] [place], [place] | [address] | with complications | | | | [address] | | ([facility]); Acute kidney | | | | [phone] | | failure ([facility]) | +--------+ + + + + Social [...] 2019 | Visit | | [address] [facility] [place] | | | | | | [address] [facility], [place] | | | | | | [address] | | | | | | | [...]
--- OUTSIDE RECORDS SUMMARY | ~2019-05-23 | XMS | Clinical Summary ---
Demographics + + + | Address | [address] | | | [place] [address] | + + + | Home Phone [...] + | Sachin Dwyer | ECON | [address] | | | | | [place] | | + + + + + | Abbey Cox | ECON | Unknown | | + + + + + Care Team Providers + +------+ + | Care Investigator Welfare Name | Role | Phone | + [...] + + | Overview: Echocardiogram done at [facility] on 01/28/18 | | shows overall left [...] | | | (severe) ([facility]); | | | | | | Proteinuria; | | | | | | Secondary | | | | | | hyperparathyroidism | | | | | | of renal origin | | | | | | ([facility]); Vitamin D | | | [...] | | | (severe) ([facility]); | | | | | | Secondary | | | | | | hyperparathyroidism | | | | | | ([facility]); 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, with | | | | | | long-term current | | | | | | use of insulin | | | | | | ([facility]); Essential | | | | [...] complications | | | | | | ([facility]); Acute kidney | | | | | | failure ([facility]) | +--------+ + + + + | 03/16/ | Documentati | Nephrology | Luis, | Results (03/13/19) | | 2019 | on | | Maninder Suarez | | | | | | Shell Sieve Operator | | +--------+ + + + [...] | | | | ([facility]); Vitamin D | | | [...] complications | | | | | | ([facility]); Acute kidney | | | | | | failure ([facility]); | | | | | | Chronic kidney | | | | | | disease, stage IV | | | | | | (severe) ([facility]); | | | | | | Proteinuria; | | | | | | Secondary | | | | | | hyperparathyroidism | | | | | | of renal origin | | | | | | ([facility]); Vitamin D | | | [...] | | | | | | [address] [place], [place] | | | | | | [address] | | | | | | | [...] 1.005 - 1.030 | | | | [place] | | | | | + + [...] | | + +--------+ +--------+ +---------+--------+ | [facility] | IHS | [id number] | | | | Indemn | | SERVICE | YELLOW | | 018-Pr | | | ity | | | HAWK | | esent | | | | + +--------+ +--------+ +---------+--------+ | [employer] | MODA | [id number] | 01/28/20 | [phone] | | Medica | | MEDICAID HMO | HEALTH | | 18-Pre | 1 | | id | | | MDCD | | sent | | | | | | [place] | | | | | | + +--------+ +--------+ +---------+--------+ | [facility] | IHS | [id number] | | | | Indemn | | SERVICE | YELLOW | | 018-Pr | | | ity | | | HAWK | | esent | | | | + +--------+ +--------+ +---------+--------+ | [employer] | MODA | [id number] | 02/23/20 | [phone] | | Medica | | MEDICAID HMO [...] Person | Self | [birth year] | [address] | | | al/Fam | | 1954 | [phone] | [place] | | | jeni | | | 4 (Home) | [address] | + +--------+ +--------+ + + | Maria Ines Cox | Person | Self | [birth year] | [address] | | | al/Fam | | 1954 | [phone] | [place] | | | jeni | | | 2 (Home) | [address] | + +--------+ +--------+ + + Advance Directives Patient has advance care planning documents on file. For more information, please contact:[facility] [place] [address]
--- OUTSIDE RECORDS SUMMARY | ~2019-05-23 | XMS | Encounter Summary ---
Demographics + + + | Address | [address] | | | [place] [address] | + + + | Home Phone | | + + + | Preferred Language | Unknown | + + + | Marital Status | Unknown | + + + | Jew Affiliation | Unknown | + + + | Race | Unknown | + + + | Ethnic Group | Unknown | + + + Author + + + | Author | [facility] (Historical as of | | | 03-07-19) | + + + | Organization | [facility] (Historical as of | | | 03-07-19) [...] Team Providers + +------+ + | Care Belting Cutter Name | Role | Phone | [...] [address] | | | | | | [place] [address] | | | | | | [phone] | | | +--------+ + + + [...]
--- OUTSIDE RECORDS SUMMARY | ~2019-05-23 | XMS | Encounter Summary ---
Demographics + + + | Address | [address] | | | [place] [address] | + + + | Home Phone [...] + | Sachin Dwyer | ECON | [address] | | | | | [place] | | + + + + + | Abbey Cox | ECON | Unknown | | + + + + + Care Team Providers + +------+ + | Care Echo Vascular Technologist Name | Role | Phone | + +------+ + | Bernadette Armendariz PA-C | BEBE | Unavailable | + +------+ + Encounter Details +--------+ + + + + | Date | Type | Department | Care Team | Description | +--------+ + + + + | 02/23/ | Orders Only | [facility] | Provider, | Essential (primary) | | 2018 | | [facility] GENERIC OP | [address] | hypertension; Type 2 | | | | [address] | [address] | diabetes mellitus | | | | [address] [place], [place] | [place] [address] | with complications | | | | [address] | | ([facility]); Acute kidney | | | | [phone] | | failure ([facility]); | | | | | | Chronic kidney | | | | | | disease, stage IV | | | | | | (severe) ([facility]); | | | | | | Proteinuria; | | | | | | Secondary | | | | | | hyperparathyroidism | | | | | | of renal origin | | | | | | ([facility]); Vitamin D | | | | | [...] 2019 | Visit | | [address] [facility] [address] | | | | | | [address] [place], [place] | | | | | | [address] | | | | | | | [...] renal origin | | | | | ([facility]) Vitamin D | | | | | deficiency | | + +--------+ + + | Urinalysis with Microscopic if | Routin | Essential | Expected: | | Indicated | e | (primary) | 02/02/2019, Expires: | | | | hypertension | 11/18/2019 | | | | Chronic kidney | | | | | disease, stage IV | | | | | (severe) ([facility]) | | | | | Proteinuria | | | | | Secondary | | | | | hyperparathyroidism | | | | | of renal origin | | | | | ([facility]) Vitamin D | | | | | deficiency | | + +--------+ + + | Protein/Creatinine Ratio, Urine | Routin | Essential | Expected: | | | e | (primary) | 02/02/2019, Expires: | | | | hypertension | 11/18/2019 | | | | Chronic kidney | | | | | disease, stage IV | | | | | (severe) ([facility]) | | | | | Proteinuria | | | | | Secondary | | | | | hyperparathyroidism | | | | | of renal origin | | | | | ([facility]) Vitamin D | | | | | [...]
--- OUTSIDE RECORDS SUMMARY | ~2019-05-23 | XMS | Encounter Summary ---
Demographics + + + | Address | [address] | | | [place] [address] | + + + | Home Phone | | + + + | Preferred Language | Unknown | + + + | Marital Status | | + + + | Yazidi Affiliation | 1041 | + + + | Race | Unknown | + + + | Ethnic Group | Unknown | + + + Author + + + | Author | [facility] | | | and [place] | + + + | Organization | [facility] | | | and [place] | + + + | Address | Unknown | + + + | Phone | Unavailable | + + + Support + + + + + | Name | Relationship | Address | Phone | + + + + + | ABBEY CXO | EL[place]IRA | Unknown | | + + + + + | Sachin Dwyer | ECON | [address] | | | | | [place] | | + + + + + | Abbey Cox | ECON | Unknown | | + + + + + Care Team Providers + +------+ + | Care Experimental Rocketsled Mechanic Name | Role | Phone | + +------+ + | Bernadette Armendariz PA-C | BEBE | Unavailable | + +------+ + Encounter Details +--------+ + + + + | Date | Type | Department | Care Team | Description | +--------+ + + + + | 03/18/ | Orders Only | [facility] | James Pearce MD | Essential (primary) | | 2019 | | NEPHROLOGY [place] | [address] | hypertension | | | | [address] | [address] [place], [place] | (Primary Dx); | | | | [address] [place], [place] | [address] | Secondary | | | | [address] | | hyperparathyroidism | | | | [phone] | | (HCC); CKD (chronic | | | | | | kidney disease), | | | | | | stage IV ([facility]); | | | | | | Anemia of chronic | | | | | | renal failure, stage | | | | | | 4 (severe) ([facility]); | | | | | | Vitamin [...] 2018 | Visit | | [address] [facility] [address] | | | | | | [address] [place] | | | | | | [address] | | | | | | | [...] | | | | 4 (severe) ([facility]) | | + +--------+ + + | Ferritin | Routin | CKD (chronic | Expected: | | | e | kidney disease), | 06/18/2019, Expires: | | | | stage IV (HCC) | 03/18/2020 | | | | Anemia of chronic | | | | | renal failure, stage | | | | | 4 (severe) ([facility]) | | + +--------+ + + | [...]
--- OUTSIDE RECORDS SUMMARY | 2019-05-23 09:20 | XMS ---
PreManage Notification: JOSE G COX Security Compliance Engineer Products Events No recent Security Events currently on file CRITERIA MET - 6 ED Visits in 6 Months CARE PROVIDERS ADAMARIS MOSCOSO Physician Public Works Technician: Surgical 04/21/2018-Current PHONE: Unknown BLAINE HA Nurse Practitioner 04/21/2019-Current PHONE: [phone] Name [facility]/[place] 04/21/2019-Current PHONE: [phone] Neo has no Care Guidelines for this patient. Care History Medical/Surgical 04/21/2018 [facility] - [facility] SA[facility] PROVIDER: - PLEASE REFER PATIENT TO [facility] FOR NON EMERGENT MEDICAL NEEDS. - IF PATIENT CALLS EARLY IN THE AM TO [facility] SAULT PATIENT CAN BE SEEN SAME DAY FOR ANY NON EMERGENT MEDICAL NEEDS. - DALILA CONTACT # [phone] - PATIENT HAS A LONG EXTENSIVE HX WITH METHAMPHETAMINE USAGE. - PHYSICIAN DISCRECTION- TOX SCREEN BEFORE TREATMENT. Care Recommendation: - USE EXTREME CAUTION IN GIVING NARCOTICS TO THIS PATIENT. - Avoid Discharge Narcotic prescriptions if at all possible. Please use clinical judgement. E.D. VISIT COUNT (12 MO.) 2 [facility] 9 [facility] [place] TOTAL 11 NOTE: Visits indicate total known visits. ED/C VISIT TRACKING (12 MO.) 05/23/2019 09:18 [facility] [place] TYPE: Emergency COMPLAINT: - BACK PAIN, ABD PAIN 04/21/2019 08:55 [facility] [place] TYPE: Emergency COMPLAINT: - BREATHING ISSUES DIAGNOSES: - Allergy status to other antibiotic agents status - Heart failure, unspecified - Personal history of nicotine dependence - 1 Type 2 diabetes mellitus without complications - Acute upper respiratory infection, unspecified - Cough - Unspecified asthma, uncomplicated 12/02/2018 11:51 [facility] [place] TYPE: Emergency COMPLAINT: - LOSS OF CONCIOUSSNESS/MULTIPLE COMPLAINTS DIAGNOSES: - Anemia, unspecified - Chronic kidney disease, unspecified - buttermaker continuous churn (current) use of insulin - Allergy status to other antibiotic agents status - Unspecified visual disturbance - Heart failure, unspecified - Syncope and collapse - Dizziness and giddiness - Unspecified asthma, uncomplicated - 1 Type 2 diabetes mellitus w diabetic chronic kidney disease - Old myocardial infarction - Prsnl hx of TIA (TIA), and cereb infrc w/o resid deficits 12/02/2018 00:00 [facility] TYPE: Emergency 12/02/2018 00:00 [facility] TYPE: Emergency DIAGNOSES: - Vision Distrubances 12/01/2018 16:06 [facility] [place] TYPE: Emergency COMPLAINT: - BLURRED VISION, RIGHT SIDED WEAKNESS DIAGNOSES: - buttermaker continuous churn (current) use of insulin - Prsnl hx of TIA (TIA), and cereb infrc w/o resid deficits - Unspecified visual disturbance - Other visual disturbances - Other alf (current) drug therapy - Unspecified asthma, uncomplicated - 1 Type 2 diabetes mellitus without complications - Heart failure, unspecified - Allergy status to other antibiotic agents status 11/07/2018 17:26 [facility] [place] TYPE: Emergency COMPLAINT: - RIGHT FOOT PAIN/INJURY DIAGNOSES: - Heart failure, unspecified - Old myocardial infarction - Allergy status to oth drug/meds/biol subst status - Striking against or struck by other objects, init encntr - Unspecified asthma, uncomplicated - Prsnl hx of TIA (TIA), and cereb infrc w/o resid deficits - buttermaker continuous churn (current) use of insulin - Puncture wound without foreign body, right foot, init encntr - Personal history of nicotine dependence - 1 Type 2 diabetes mellitus without complications - Other alf (current) drug therapy - buttermaker continuous churn (current) use of aspirin 10/01/2018 19:00 [facility] [place] TYPE: Emergency COMPLAINT: - ABD PAIN DIAGNOSES: - Left lower quadrant pain - Heart failure, unspecified - Old myocardial infarction - assisted (current) use of insulin - Unspecified asthma, uncomplicated - assisted (current) use of aspirin - 1 Type 2 diabetes mellitus without complications - Other alf (current) drug therapy - Cellulitis of abdominal wall - Allergy status to oth drug/meds/biol subst status 09/09/2018 07:55 [facility] [place] TYPE: Emergency COMPLAINT: - COUGH DIAGNOSES: - Personal history of nicotine dependence - Allergy status to oth drug/meds/biol subst status - Cough - 1 Type 2 diabetes mellitus without complications - Pneumonia, unspecified organism - Other alf (current) drug therapy - assisted (current) use of insulin - Chronic sinusitis, unspecified 08/21/2018 15:13 [facility] [place] TYPE: Emergency COMPLAINT: - DIFFICULTY BREATHING DIAGNOSES: - Old myocardial infarction - assisted (current) use of insulin - Other alf (current) drug therapy - Heart failure, unspecified - Unspecified asthma with (acute) exacerbation - Shortness of breath - Allergy status to oth drug/meds/biol subst status - Prsnl hx of TIA (TIA), and cereb infrc w/o resid deficits - Personal history of nicotine dependence - 1 Type 2 diabetes mellitus without complications 07/25/2018 23:03 [facility] [place] TYPE: Emergency COMPLAINT: - CHEST PAIN/SHORTNESS OF BREATH DIAGNOSES: - Heart failure, unspecified - Other chest pain - Prsnl hx of TIA (TIA), and cereb infrc w/o resid deficits - Personal history of nicotine dependence - Unspecified asthma, uncomplicated - Chest pain, unspecified - assisted (current) use of insulin - 1 Type 2 diabetes mellitus without complications - Allergy status to oth drug/meds/biol subst status - Other exterminator helper termite (current) drug therapy - Viral infection, unspecified INPATIENT VISIT TRACKING (12 MO.) 12/02/2018 21:21 [facility] TYPE: Observation DIAGNOSES: - Vision Distrubances - Weakness 08/05/2018 10:20 [facility] [place] TYPE: Cardiology DIAGNOSES: - Ischemic cardiomyopathy - Heart failure, unspecified - 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
[2019-05-23] MEDS ORDERED: ASPIRIN81 MG PO (09:49)
[2019-05-23] MEDS ORDERED: LOSARTAN POTAS100 MG PO (09:50)
[2019-05-23] MEDS ORDERED: AMLODIPINE BESYL5 MG PO (09:50)
== END 2019-05-23 15:36 | disposition home or self-care (01) ==
LOC: ED 09:17
DX: E11.22 Type 2 diabetes mellitus with diabetic chronic kidney disease (principal); N18.9 Chronic kidney disease, unspecified; J45.909 Unspecified asthma, uncomplicated; Z86.73 Personal history of transient ischemic attack (TIA), and cerebral infarction without residual deficits; I50.9 Heart failure, unspecified; Z87.891 Personal history of nicotine dependence; Z88.1 Allergy status to other antibiotic agents; Z79.4 Long term (current) use of insulin; Z79.899 Other long term (current) drug therapy; Z79.82 Long term (current) use of aspirin
CPT/HCPCS: 74176; 80053; 81001; 83690; 85025; 96361; 96374; 99284-25; J2270; J7030

== ENCOUNTER 2019-06-03 20:48 | Emergency (ER) | payer OTHER ==
[~2019-06-03] VITALS: Ht 160 cm; Wt 85.7 kg
--- OUTSIDE RECORDS SUMMARY | ~2019-06-03 | XMS | Encounter Summary ---
Demographics + + + | Address | [address] | | | [place] [address] | + + + | Home Phone | | + + + | Preferred Language | Unknown | + + + | Marital Status | | + + + | Church Affiliation | 1041 | + + + | Race | Unknown | + + + | Ethnic Group | Unknown | + + + Author + + + | Author | [facility] | | | and [place] | + + + | Organization | [facility] | | [...] Team Providers + +------+ + | Care Garment Form Assembler Name | Role | Phone | + +------+ + | Bernadette Armendariz PA-C | PCP | | + +------+ + Encounter Details +--------+ + + + + | Date | Type | Department | Care Team | Description | +--------+ + + + + | 03/17/ | Orders Only | [facility] | James Pearce MD | Essential (primary) | | 2019 | | NEPHROLOGY [place] | [address] | hypertension; | | | | [address] | [address] [place], [place] | Chronic kidney | | | | [address] [place], [place] | [address] | disease, stage IV | | | | [address] | | (severe) ([facility]); | | | | [phone] | | Proteinuria; | | | | | | Secondary | | | | | | hyperparathyroidism | | | | | | of renal origin | | | | | | ([facility]); Vitamin D | | | | | [...] 2019 | Visit | | [address] [facility] [address] | | | | | | [address] [place], [place] | | | | | | [address] | | | | | | | | +--------+---------+ + + + + +------+--------+ + + | Name | Type | Priori | Associated Diagnoses | Order Schedule | | | | ty | | | + +------+--------+ + + | Iron and Iron | Lab | Routin | Essential | Expected: | | Binding Capacity | | e | (primary) | 02/02/2019, Expires: | | | | | hypertension | 11/18/2019 | | | | | Chronic kidney | | | | | | disease, stage IV | | | | | | (severe) (HCC) | | | | | | Proteinuria | | | | | | Secondary | | | | | | hyperparathyroidism | | | | | | of renal origin | | | | | | (HCC) Vitamin D | | | | | | deficiency | | + +------+--------+ + + documented [...]
--- OUTSIDE RECORDS SUMMARY | ~2019-06-03 | XMS | Encounter Summary ---
Demographics + + + | Address | [address] | | | [place] [address] | + + + | Home Phone | | + + + | Preferred Language | Unknown | + + + | Marital Status | | + + + | Buddhism Affiliation | 1041 | + + + | Race | Unknown | + + + | Ethnic Group | Unknown | + + + Author + + + | Author | [facility] | | | and [place] | + + + | Organization | [facility] | | [...] Team Providers + +------+ + | Care Event Set Up Specialist Name | Role | Phone | + +------+ + | Bernadette Armendariz PA-C | PCP | | + +------+ + Encounter Details +--------+ + + + + | Date | Type | Department | Care Team | Description | +--------+ + + + + | 03/11/ | Orders Only | [facility] | James Pearce MD | Essential | | 2019 | | NEPHROLOGY [place] | [address] | hypertension | | | | [address] | [address] [place], [place] | (Primary Dx); Type 2 | | | | [address] | [address] | diabetes mellitus | | | | [place], [place] | | with complication, | | | | [address] | | with long-term | | | | [phone] | | current use of | | [...] 2019 | Visit | | [address] [facility] [address] | | | | | | [address] [place], [place] | | | | | | [address] | | | | | | | [...] type | | | | | | ([facility]) | | + +------+--------+ + + documented [...]
--- OUTSIDE RECORDS SUMMARY | ~2019-06-03 | XMS | Encounter Summary ---
Demographics + + + | Address | [address] | | | [place] [address] | + + + | Home Phone | | + + + | Preferred Language | Unknown | + + + | Marital Status | | + + + | Anglican Affiliation | 1041 | + + + | Race | Unknown | + + + | Ethnic Group | Unknown | + + + Author + + + | Author | [facility] | | | and [place] | + + + | Organization | [facility] | | | [...] Team Providers + +------+ + | Care Sewer Line Repairer Name | Role | Phone | + +------+ + PCP | Unavailable | + +------+ + Encounter Details +--------+ + + + + | Date | Type | Department | Care Team | Description | +--------+ + + + + | 10/14/ | Hospital | [facility] | Cal Godinez, | | | 2000 | Encounter | MED CTR GENERIC OP | MD [address] [facility] | | | | | CONV DEPT [address] | [place], [place] | | | | | [place], | [address] | | | | | [place] [address] | | | | | | [phone] | | | +--------+ + + + [...] 2019 | Visit | | [address] [facility] | | | | | | [address] [place] | | | | | | [address] | | | | | | | | +--------+---------+ + + + documented as of this encounter Visit Diagnoses Not on filedocumented in this encounter"
--- OUTSIDE RECORDS SUMMARY | ~2019-06-03 | XMS | Encounter Summary ---
Demographics + + + | Address | [address] | | | [place] [address] | + + + | Home Phone | | + + + | Preferred Language | Unknown | + + + | Marital Status | | + + + | Sabianism Affiliation | 1041 | + + + | Race | Unknown | + + + | Ethnic Group | Unknown | + + + Author + + + | Author | [facility] | | | and [place] | + + + | Organization | [facility] | | | and [...] Team Providers + +------+ + | Care Nascar Driver Name | Role | Phone | + +------+ + | Bernadette Armendariz PA-C | PCP | | + +------+ + Encounter Details +--------+ + + + + | Date | Type | Department | Care Team | Description | +--------+ + + + + | 03/18/ | Orders Only | [facility] | James Pearce MD | Essential (primary) | | 2019 | | NEPHROLOGY [place] | [address] [place] | hypertension | | | | [address] [place] | [address] [place], [place] | (Primary Dx); | | | | [address] [place], [place] | [address] | Secondary | | | | [address] | | hyperparathyroidism | | | | [phone] | | (HCC); CKD (chronic | | | | | | kidney disease), | | | | | | stage IV ([facility]); | | | | | | Anemia of chronic | | | | | | renal failure, stage | | | | | | 4 (severe) ([facility]); | | | | | | Vitamin [...] 2019 | Visit | | [address] [facility] [place] | | | | | | [address] [place], [place] | | | | | | [address] | | | | | | | | +--------+---------+ + + + + +------+--------+ + + | Name | Type | Priori | Associated Diagnoses | Order Schedule | | | | ty | | | + +------+--------+ + + | Basic Metabolic | Lab | Routin | Essential | Expected: | | Panel | | e | (primary) | 03/23/2019, Expires: | | | | | hypertension CKD | 03/18/2020 | | | | | (chronic kidney | | | | | | disease), stage IV | | | | | | (HCC) | | + +------+--------+ + + | Renal Function Panel | Lab | Routin | Essential | Expected: | | | | e | (primary) | 06/18/2019, Expires: | | | | | hypertension CKD | 03/18/2020 | | | | | (chronic kidney | | | | | | disease), stage IV | | | | | | (HCC) | | + +------+--------+ + + | CBC with | Lab | Routin | Essential | Expected: | | Differential | | e | (primary) | 06/18/2019, Expires: | | | | | hypertension CKD | 03/18/2020 | | | | | (chronic kidney | | | | | | disease), stage IV | | | | | | (HCC) | | + +------+--------+ + + | Iron and Iron | Lab | Routin | CKD (chronic | Expected: | | Binding Capacity | | e | kidney disease), | 06/18/2019, Expires: | | | | | stage IV (HCC) | 03/18/2020 | | | | | Anemia of chronic | | | | | | renal failure, stage | | | | | | 4 (severe) (HCC) | | + +------+--------+ + + | Ferritin | Lab | Routin | CKD (chronic | Expected: | | | | e | kidney disease), | 06/18/2019, Expires: | | | | | stage IV (HCC) | 03/18/2020 | | | | | Anemia of chronic | | | | | | renal failure, stage | | | | | | 4 (severe) ([facility]) | | + +------+--------+ + + | Parathyroid Hormone, | Lab | Routin | Secondary | Expected: | | Intact | | e | hyperparathyroidism | 06/18/2019, Expires: | | | | | (HCC) CKD (chronic | 03/18/2020 | | | | | kidney disease), | | | | | | stage IV (HCC) | | + +------+--------+ + + | Vitamin D, | Lab | Routin | CKD (chronic | Expected: | | Deficiency Screen | | e | kidney disease), | 06/18/2019, Expires: | | (25-Hydroxy) | | | stage IV (HCC) | 03/18/2020 | | | | | Vitamin D deficiency | | + +------+--------+ + + documented as of this encounter Visit Diagnoses + + | Diagnosis | + + | Essential (primary) hypertension - Primary Unspecified essential hypertension | + + | Secondary hyperparathyroidism (HCC) Secondary hyperparathyroidism (of renal origin) | + + | CKD (chronic kidney disease), stage IV (HCC) Chronic kidney disease, Stage IV | | (severe) | + + | Anemia of chronic renal failure, stage 4 (severe) (HCC) | + + | Vitamin D deficiency Unspecified vitamin D deficiency | + + documented in this encounter"
--- OUTSIDE RECORDS SUMMARY | ~2019-06-03 | XMS | Encounter Summary ---
Demographics + + + | Address | [address] | | | [place] [address] | + + + | Home Phone | | + + + | Preferred Language | Unknown | + + + | Marital Status | | + + + | Roman Catholic Affiliation | 1041 | + + + [...] Team Providers + +------+ + | Care Semiautomatic Taper Operator Name | Role | Phone | + +------+ + | Bernadette Armendariz PA-C | PCP | | + +------+ + Encounter Details +--------+ + + + + | Date | Type | Department | Care Team | Description | +--------+ + + + + | 02/17/ | Abstract | [facility] | Сергей Gaitan | Congestive heart | | 2018 | | CARDIOLOGY [address] | MD [address] | failure, unspecified | | | | [place], | [address] [address] [place] | HF chronicity, | | | | [place] [address] | [place] [address] | unspecified heart | | | | [phone] | [phone] | failure type (HCC) | | | [...] 2019 | Visit | | [address] [facility] | | | | | | [address] [place] | | | | | | [address] | | | | | | | [...]
--- OUTSIDE RECORDS SUMMARY | ~2019-06-03 | XMS | Encounter Summary ---
Demographics + + + | Address | [address] | | | [place] [address] | + + + | Home Phone | | + + + | Preferred Language | Unknown | + + + | Marital Status | | + + + | Tenriism Affiliation | 1041 | + + + [...] Team Providers + +------+ + | Care Foot Caster Name | Role | Phone | + +------+ + | Bernadette Armendariz PA-C | PCP | | + +------+ + Encounter Details +--------+ + + + + | Date | Type | Department | Care Team | Description | +--------+ + + + + | 11/12/ | Orders Only | [facility] | Conversion | | | 2019 | | NEPHROLOGY [place] | Transaction, | | | | | [address] | Provider Unknown | | | | | [address] [place] | | | | | | [address] | (Fax) | | | | | [phone] | | | +--------+ + + + [...] 2019 | Visit | | [address] [facility] [place] | | | | | | [address] [place], [place] | | | | | | [address] | | | | | | | | +--------+---------+ + + + documented as of this encounter Procedures + +--------+ + + + | Procedure Name | Priori | Date/Time | Associated Diagnosis | Comments | | | ty | | | | + +--------+ + + + | PARATHYROID HORMONE, | Routin | 11/12/2018 | | Results for this | | INTACT | e | 10:32 AM | | [...] | IRON AND IRON | Routin | 11/12/2018 | | Results for this | | BINDING CAPACITY | e | 10:29 AM | | procedure are in the | | | | PDT | | results section. | + +--------+ + + + | VITAMIN D, | Routin | 11/12/2018 | | Results for this | | DEFICIENCY SCREEN | e | 10:29 AM | | procedure are in the | | (25-HYDROXY) | | PDT | | results section. | + +--------+ + + + | FERRITIN | Routin | 11/12/2018 | | Results for this | | | e | 10:29 AM | | procedure are in the | | | | PDT | | results section. | + +--------+ + + + documented in this encounter Results Parathyroid Hormone, Intact (11/12/2018 10:32 AM PDT) + +--------+ + + + | Component | Value | Ref Range | Performed | Pathologist | | | | | At | Signature | + +--------+ + + + | PTH INTACT | 141.30 | pg/mL | EXTERNAL | | | | | | LAB | | + +--------+ + + + + + | Specimen | + + | Blood specimen | | (specimen) | + + + +---------+ + + | Performing | Address | City/State/Zipcode | Phone Number | | Organization | | | | + +---------+ + + | EXTERNAL LAB | | | | + +---------+ + + Hemoglobin A1C (11/12/2018 10:32 AM PDT) + +-------+ + + + | Component | Value | Ref Range | Performed | Pathologist | | | | | At | Signature | + +-------+ + + + | Hemoglobin | 7.7 | % | EXTERNAL | | | A1c | | | LAB | | + +-------+ + + + + + | Specimen | + + | Blood specimen | | (specimen) | + + + +---------+ + + | Performing | Address | City/State/Zipcode | Phone Number | | Organization | | | | + +---------+ + + | EXTERNAL LAB | | | | + +---------+ + + Iron and Iron Binding Capacity (11/12/2018 10:29 AM PDT) + + + + + + | Component | Value | Ref Range | Performed | Pathologist | | | | | At | Signature | + + + + + + | Iron | 217 (A) | 30 - 180 | EXTERNAL | | | | | | LAB | | + + + + + + | Iron | 82.2 (A) | 20 - 55 | EXTERNAL | | | Saturation | | | LAB | | + + + + + + | TIBC | 264 | 245 - 400 | EXTERNAL | | | | | [...] | | | + +---------+ + + Vitamin D, Deficiency Screen (25-Hydroxy) (11/12/2018 10:29 AM PDT) + +---------+ + + + | Component | Value | Ref Range | Performed | Pathologist | | | | | At | Signature | + +---------+ + + + | Vit D, | 8.5 (A) | 30 - 100 | EXTERNAL | | | 25-Hydroxy | | | LAB | | + +---------+ + + + + + | Specimen | + + | Blood specimen | | (specimen) | + + + +---------+ + + | Performing | Address | City/State/Zipcode | Phone Number | | Organization | | | | + +---------+ + + | EXTERNAL LAB | | | | + +---------+ + + Ferritin (11/12/2018 10:29 AM PDT) + +-------+ + + + | Component | Value | Ref Range | Performed | Pathologist | | | | | At | Signature | + +-------+ + + + | Ferritin, | 57.8 | 6 - 200 ng/mL | EXTERNAL | | | External | | | LAB | | + +-------+ + + + [...]
--- OUTSIDE RECORDS SUMMARY | ~2019-06-03 | XMS | Encounter Summary ---
Demographics + + + | Address | [address] | | | [place] [address] | + + + | Home Phone [...] Team Providers + +------+ + | Care Automobile And Property Underwriter Name | Role | Phone | + +------+ + | Bernadette Armendariz PA-C | PCP | | + +------+ + Encounter Details +--------+ + + + + | Date | Type | Department | Care Team | Description | +--------+ + + + + | 08/05/ | Hospital | [facility] | Conversion | CAD in [place] | | 2019 - | Encounter | [facility] | Transaction, | artery; Congestive | | | | CARE FLOOR 4 [address] | Provider Unknown | heart failure, | | | | [address] | [phone] | unspecified HF | | 2019 | | [place], [place] | | chronicity, | | | | [address] | Brynn Crawford MD | unspecified heart | | | | [phone] | [address] | failure type (HCC); | | | | | [place] [address] | Precordial pain; | | | | | [phone] | Ischemic | | | | | [...] 08/11/181929 Date of Service: 08/10/18941 Status: Signed Strip Winder: Gustavo Castorena MD (Physician) [facility] Service: Hospitalist Physician Discharge Summary Patient [...] Invalid input(s): ABG Disposition: HOME Follow up: [facility] [address] [place] [address] [place] [address] Schedule an appointment as soon as possible [...] 1558 Date of Service: 08/11/181499 Status: Signed Strip Winder: Cinthya Carmen RN (Registered Nurse) Pt discharge home with family. Pt states understanding about scripts and paperwork. IV d/c. Tele d/c. Family to transport pt home. onver federico Transaction, Provider Unknown - 08/11/2018 12:50 PM PST Case Management by Damaris Canchola RN at 08/11/181249 Author: Damaris Canchola RN Service: (none) Author Type: Registered Nurse Filed: 08/11/181249 Date of Service: 08/11/181249 Status: Signed Strip Winder: Damaris Canchola RN (Registered Nurse) Met with [...] Date of Service: 08/11/18 1045 Status: Signed Strip Winder: Shin Rivera MD (Physician) PCP : [facility] LOS: 5 days Maria Ines Martin [...] was completed later after rounds. Dictation software, [employer], was used which may contain error for [...] 08/11/18615 Date of Service: 08/11/18614 Status: Signed Strip Winder: Francy Beckford RN (Registered Nurse) VSS. Patient [...] 08/10/181751 Date of Service: 08/10/181747 Status: Signed Strip Winder: Kaia Penaloza RN (Registered Nurse) Pt down [...] Notes by Teena Encinas RD at 08/10/18 4826 Author: Teena Encinas RD Service: (none) Author Type: Registered Dietitian Filed: 08/10/18 3620 Date of Service: 08/10/186 Status: Signed Strip Winder: Teena Encinas RD (Registered Dietitian) 08/10/18 9661 Subjective Timepoint Follow up (diet education) Food and Nutrition Knowledge Area(s) and Level of Knowledge In to see pt for renal cardiac diet. Pt K+ WNL at this time but hx hyperkalemia. Discussed high potassium foods and provided list from [facility]. Discussed th at she does not need to limit at this time with ARF and WNL K+ but may need to in the future . Provided low sodium handout from [facility] and discussed. Pt reports that she [...] Date of Service: 08/10/18 1209 Status: Signed Strip Winder: Shin Rivear MD (Physician) PCP : [facility] LOS: 4 days Maria Ines Martin [...] was completed later after rounds. Dictation software, [employer], was used which may contain error for [...] 0957 Date of Service: 08/10/18951 Status: Signed Strip Winder: Gustavo Castorena MD (Physician) [facility] Service: Hospitalist Progress Note Hospital Day: LOS: 4 days SUBJECTIVE Still c/o back pain. 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 Maria Ines Martin is a [...] and management as well as Computerized Physician Rubber Mixer. Disposition: Home ? Code Status: Full Code Gustavo Castorena MD 08/10/2018 9:57 AM onversion Transactio n, Provider Unknown - 08/10/2018 6:23 AM PST Nurse Progress Note by Francy Beckford RN at 08/10/18622 Author: Francy Beckford RN Service: (none) Author Type: Registered Nurse Filed: 08/10/18627 Date of Service: 08/10/18622 Status: Signed Strip Winder: Francy Beckford RN (Registered Nurse) VSS. Pt [...] 08/09/181751 Date of Service: 08/09/181749 Status: Signed Strip Winder: Kaia Penaloza RN (Registered Nurse) VSS today. [...] Notes by Shin Rivera MD at 08/09/18 1935 Author: Shin Rivera MD Service: Nephrology Author Type: Physician Filed: 08/10/18 0751 Date of Service: 08/09/181747 Status: Signed Strip Winder: Shin Rivera MD (Physician) PCP : [facility] LOS: 3 days Maria Ines Martin [...] outpatient follow up with Dr. Pearce in [place]. Strict low K diet. Diet 2 gm [...] was completed later after rounds. Dictation software, [employer], was used which may contain error for [...] 1421 Date of Service: 08/09/181415 Status: Signed Strip Winder: Gustavo Castorena MD (Physician) [facility] Service: Hospitalist Progress Note Hospital Day: [...] and management as well as Computerized Physician Rubber Mixer. Disposition: Home ? Code Status: Full Code Gustavo Castorena MD 08/09/2018 2:16 PM onversion Transactio n, Provider Unknown - 08/09/2018 6:26 AM PST Nurse Progress Note by Francy Beckford RN at 08/09/18 9448 Author: Francy Beckford RN Service: (none) Author Type: Registered Nurse Filed: 08/09/18 8240 Date of Service: 08/09/18625 Status: Signed Strip Winder: Francy Beckford RN (Registered Nurse) Patient complained [...] 08/08/182000 Date of Service: 08/08/182000 Status: Signed Strip Winder: Nimo Heredia RN (Registered Nurse) No significant [...] Date of Service: 08/08/18 164 Status: Signed Strip Winder: Brynn rCawford MD (Physician) [facility] Service: Cardiology/[facility] Progress Note RE: Maria Ines [...] Mild mitral regurgitation is present. Scores: 1. [id number]-Cqwx Score: 3 2. Mosotho Anginal Score: 3 3. NYHA Score: 2 [...] 1541 Date of Service: 08/08/181535 Status: Signed Strip Winder: Damaris Canchola RN (Registered Nurse) Tc from [facility]([phone]), CM with [facility] re d/c plan, infor med that d/c date is still unknown. [facility] transport dept, states they dont provide transportation on [place], but would need to call [facility] for [place] transport call . If [facility] is not able to provide transportation, need to ask family or pay for taxi. Kathe Gustavo Lara MD - 08/08/2018 2:53 PM PSTFormatting of this note might be different from the or iginal. Progress Notes by Gustavo Castorena MD at 08/08/18 6513 Author: Gustavo Castorena MD Service: Internal Medicine Author Type: Physician Filed: 08/08/181456 Date of Service: 08/08/181452 Status: Signed Strip Winder: Gustavo Castorena MD (Physician) [facility] Service: Hospitalist Progress Note Hospital Day: [...] LIST Principal Problem: GRACIELA (acute kidney injury) ([facility]) Active Problems: Ischemic cardiomyopathy Chronic systolic heart failure (HCC) Hyperkalemia Essential hypertension Type 2 diabetes mellitus with complication, with long-term current use of insulin ([facility]) ASSESSMENT / PLAN Heart failure reduced ejection [...] and management as well as Computerized Physician Rubber Mixer. Disposition: Home ? Code Status: Full Code Gustavo Castorena MD 08/08/2018 2:53 PM Shin Vale MD - 08/08/2018 11:26 AM PST Progress Notes by Shin Rivera MD at 08/08/18 1126 Author: Shin Rviera MD Service: Nephrology Author Type: Physician Filed: 08/10/18 1223 Date of Service: 08/08/18 1126 Status: Signed Strip Winder: Shin Rivera MD (Physician) PCP : [facility] LOS: 2 days Maria Ines Martin [...] was completed later after rounds. Dictation software, [employer], was used which may contain error for similar sounding words nabor jackman after review. Personal communication is requested for any clarification. Prognosis is guarded in view of multiple comorbid illnesses and acute on chronic renal fail ure including but not limited to potential need for BARREL LOADER and . amLODIPine 7.5 mg Oral Daily [...] 0700 Date of Service: 08/08/1859 Status: Signed Strip Winder: Little Infante RN (Registered Nurse) Pt had [...] 08/07/182005 Date of Service: 08/07/182005 Status: Signed Strip Winder: Nimo Heredia RN (Registered Nurse) No significant [...] Management by Damaris Canchola RN at 08/07/18 2263 Author: Damaris Canchola RN Service: (none) Author Type: Registered Nurse Filed: 08/07/18 1202 Date of Service: 08/07/18 1156 Status: Signed Strip Winder: Damaris Canchola RN (Registered Nurse) Tc to Kathrin([phone]), CM with [facility] re d/c plan, LMTCB Per pt, wants CM to call Cecilia physician practice manager re transport back [phone]. Per Adilene, for wknd medicaid transport call Kathe onver federico Transaction, Provider Unknown - 08/07/2018 11:47 AM PST Case Management by Damaris Canchola RN at 08/07/18 1147 Author: Damaris Canchola RN Service: (none) Author Type: Registered Nurse Filed: 08/07/18 1149 Date of Service: 08/07/18 1147 Status: Signed Strip Winder: Damaris Canchola RN (Registered Nurse) 08/07/18 1100 [...] with spouse and child(disabled chi ld) in [place]. Pt states she is indep with all her adl's, but does use a cane if needed f or outdoors as she has vision deficits.no home o2, no anticoagulants, no HD. Plans to return home Patient's PCP is: [facility] Patient's insurance[facility] Coverage concerns: Medication coverage/concerns: Rx [...] 1058 Date of Service: 08/07/181049 Status: Signed Strip Winder: Gustavo Castorena MD (Physician) [facility] Service: Hospitalist Progress Note Hospital Day: [...] and management as well as Computerized Physician Rubber Mixer. Disposition: Home ? Code Status: Full Code Gustavo Castorena MD 08/07/2018 10:50 AM Brynn Hanna MD - 8:47 AM PST Progress Notes by Brynn Crawford MD at 08/07/18 7804 Author: rBynn Crawford MD Service: Cardiology Author Type: Physician Filed: 08/07/18 0914 Date of Service: 08/07/18 0847 Status: Signed Strip Winder: Brynn Crawford MD (Physician) [facility] Service: [facility]iology/[facility] Progress Note RE: Maria Ines [...] Mild mitral regurgitation is present. Scores: 1. [id number]-Rkio Score: 2. Mosotho Anginal Score: 3. NYHA Score: ASSESSMENT: 1. [...] her [facility] better ejection fraction than what it was reported previously at [facility]. Regardless with her history of chest discomforts [...] 08/07/18626 Date of Service: 08/07/18625 Status: Signed Strip Winder: Agustina Cade RN (Registered Nurse) End of shift audit complete. AGUSTINA CADE RN onver federico Transaction, Provider Unknown - 08/06/2018 5:18 PM PST Nurse Progress Note by Jacquie Miranda RN at 08/06/181717 Author: Jacquie Miranda RN Service: (none) Author Type: Registered Nurse Filed: 08/06/181718 Date of Service: 08/06/181717 Status: Signed Strip Winder: Jacquie Miranda RN (Registered Nurse) End of shift chart check completed Gustavo Lara MD - 08/06/2018 1:52 PM PSTFormatting of this note might be different from the or iginal. Progress Notes by Gustavo Castorena MD at 08/06/18 241 Author: Gustavo Castorena MD Service: Internal Medicine Author Type: Physician Filed: 08/06/18 1351 Date of Service: 08/06/18 463 Status: Signed Strip Winder: Gustavo Castorena MD (Physician) [facility] Service: Hospitalist Progress Note Hospital Day: [...] and management as well as Computerized Physician Rubber Mixer. Disposition: Home ? Code Status: Full Code Gustavo Castorena MD 08/06/2018 1:55 PM onversion Transactio n, Provider Unknown - 08/06/2018 12:04 PM PST Progress Notes by Anjali Kerr RD at 08/06/18 1204 Author: Anjali Kerr RD Service: (none) Author Type: Registered Dietitian Filed: 08/06/18 1206 Date of Service: 08/06/18 120 Status: Signed Strip Winder: Anjali Kerr RD (Registered Dietitian) 08/06/18 8770 Subjective Timepoint Admit Pt c/o Pt triggered for dysphagia. Pt admitted for acute renal failure. 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 Pt went ov er her hx of [...] any concerns for dysphag ia consider ordering GLASS PRODUCTS INSPECTOR eval. Anthropometrics Weight change Pt's BMI is 34 and pt is 166% of IBW. Pt reports she has gained wt over the p ast 4 months after stopping meth. Biochemical data, medical tests, and procedures reviewed Biochemical data, medical tests, and procedures reviewed Labs reviewed. Recommendations Recommended energy needs Continue diet as ordered with modications per GLASS PRODUCTS INSPECTOR, if needed. Enco urage po intake as [...] 0936 Date of Service: 08/06/18850 Status: Signed Strip Winder: Brynn Crawford MD (Physician) [facility] Service: [facility]iology[facility] Progress Note RE: Maria Ines [...] prolonged QRS Imaging Chest X-Ray: Scores: 1. CCF2KV2-Raqd Score: 2. Mosotho Anginal Score: 3. NYHA Score: ASSESSMENT: 1. [...] 08/06/18517 Date of Service: 08/06/18517 Status: Signed Strip Winder: Cheryl Patel RN (Registered Nurse) End of shift audit complete. onver federico Transaction, Provider Unknown - 08/05/2018 5:56 PM PST Nurse Progress Note by Ghada Crawley RN at 08/05/181755 Author: Ghada Crawley RN Service: (none) Author Type: Registered Nurse Filed: 08/05/181755 Date of Service: 08/05/18 1756 Status: Signed Strip Winder: Ghada Crawley RN (Registered Nurse) End of shift review complete GHADA CRAWLEY RN Brynn Merrill MD - 08/05/2018 1:38 PM PSTFormatting of this note might be different from the orig inal. Progress Notes by Brynn Crawford MD at 08/05/18 9778 Author: Brynn Crawford MD Service: Cardiology Author Type: Physician Filed: 08/05/18 3870 Date of Service: 08/05/18 2198 Status: Signed Strip Winder: Brynn Crawford MD (Physician) Mrs. Martin presented [...] was seen by Dr. Vic Gaitan [facility] for evaluation. An echoca rdiogram was obtained [...] cant ST or T-wave abnormalities. Scores: 1. SLQ6IY3-Unta Score: 4 2. Mosotho Anginal Score: 2 3. NYHA Score: 2-3 [...] 2018 | Visit | | [address] [facility] | | | | | | [address] | | | | | | [address] | | | | | | | [...] | | | Fingerstick | performed at [facility];[address] | | LAB | | | | [address];[place] | | | | | | [address] | | | | + + + [...] | | | Fingerstick | performed at [facility];[address] | | LAB | | | | [address];[place], [place] | | | | | | [address] | | | | + + + [...] | | | | | performed at [facility], [address] | | | | | | [address], | | | | | | [place] [address] | | | | + + + [...] | | | Fingerstick | performed at [facility];[address] | | LAB | | | | [address];[place], [place] | | | | | | [address] | | | | + + + [...] | | | Fingerstick | performed at [facility];[address] | | LAB | | | | [address];[place], [place] | | | | | | [address] | | | | + + + [...] | | | Fingerstick | performed at [facility];[address] | | LAB | | | | [address];[place], [place] | | | | | | [address] | | | | + + + [...] | | | Fingerstick | performed at [facility];[address] | | LAB | | | | [address];[place] | | | | | | [address] | | | | + + + [...] EXTERNAL | | | | performed at [facility], [address] | | LAB | | | | [place] [address], | | | | | | [place] [address] | | | | + + + [...] | | | | | performed at [facility], [address] | | | | | | [facility], | | | | | | [place] [address] | | | | + + + [...] | | | Fingerstick | performed at [facility];[address] | | LAB | | | | [address];[place], [place] | | | | | | [address] | | | | + + + [...] | | | Fingerstick | performed at [facility];[address] | | LAB | | | | [address];[place], [place] | | | | | | [address] | | | | + + + [...] | | | Fingerstick | performed at [facility];[address] | | LAB | | | | [address];[place] | | | | | | [address] | | | | + + + [...] EXTERNAL | | | | performed at [facility], [address] | | LAB | | | | [address], | | | | | | [place] [address] | | | | + + + [...] EXTERNAL | | | | performed at [facility], [address] | | LAB | | | | [place] [address], | | | | | | [place] [address] | | | | + + + [...] | | | | | performed at [facility], [address] | | | | | | [facility], | | | | | | [place] [address] | | | | + + + [...] | | | Fingerstick | performed at [facility];[address] | | LAB | | | | [address];[place], [place] | | | | | | [address] | | | | + + + [...] | | | Fingerstick | performed at [facility];[address] | | LAB | | | | [address];[place] | | | | | | [address] | | | | + + + [...] radial artery and a | | | 6-Japanese sheath was placed. The JL-3.5 catheter was [...] Read by BRYNN | | | MD CNO 08/10/2018 08:02 P | | + + [...] right radial artery and a | | 6-Japanese sheath was placed. The JL-3.5 catheter was [...] | | | Fingerstick | performed at [facility];[address] | | LAB | | | | [address];[place] | | | | | | [address] | | | | + + + + + + + + | Specimen | + + | | + + + +---------+ + + | Performing | Address | City/State/Zipcode | Phone Number | | Organization | | | | + +---------+ + + | EXTERNAL LAB | | | | + +---------+ + + [place] (08/08/2018 12:12 PM PST) + + + + + + | Component | Value | Ref Range | Performed | Pathologist | | | | | At | Signature | + + + + + + | [facility] [place] | 96.5 (H)Comment: | mg/L | EXTERNAL [...] + + + + + + | [place] | 1.50Comment: Reference | | EXTERNAL | | | a Free | range: 0.26 to | | LAB | | | Light [facility] | 1.65Testing performed at | | | | | Ratio | [facility], [address] | | | | | | [place] | | | | | | [address] | | | | + + + [...] | | Comp 4 | performed at [facility], [address] | | LAB | | | | [place] [address], | | | | | | [place] [address] | | | | + + + [...] at | | | | | | [facility], [address] [facility] | | | | | | [place] | | | | | | [address] | | | | + + + [...] | | | | | [place] [address] | | | | + + + [...] | | | | | | at [facility], [address] | | | | | | [place] [address], | | | | | | [place] [address] | | | | + + + [...] | | | | | performed at [facility], [address] | | | | | | [facility], | | | | | | [place] [address] | | | | + + + [...] | | | | | performed at [facility], [address] | | | | | | [address] | | | | | | [place] [address] | | | | + + + [...] | | | | | with both SC-3 and | | | | | | [...] | | | 3 | performed by [facility], | | | | | | [address], | | | | | | [facility] [address] | | | | + + + [...] | | | | | | [place] [address] | | | | + + + [...] | | Quant, CSF | performed at [facility], | | | | | | [address], [address], | | | | | | [place] [address] | | | | + + + [...] EXTERNAL | | | | performed at [facility], [address] | | LAB | | | | [address], | | | | | | [place] [address] | | | | + + + [...] EXTERNAL | | | | performed at [facility], [address] | | LAB | | | | [address], | | | | | | [place] [address] | | | | + + + [...] | | | | | [place] [address] | | | | + + + [...] | | | Fingerstick | performed at [facility];[address] | | LAB | | | | [address];[place], [place] | | | | | | [address] | | | | + + + [...] | | | Fingerstick | performed at [facility];[address] | | LAB | | | | [address];[place], [place] | | | | | | [address] | | | | + + + [...] EXTERNAL | | | | performed at [facility], [address] | | LAB | | | | [address] [facility], | | | | | | [place] [address] | | | | + + + [...] EXTERNAL | | | | performed at [facility], [address] | | LAB | | | | [address], | | | | | | [place] [address] | | | | + + + [...] | | | | | performed at [facility], [address] | | | | | | [facility], | | | | | | [place] [address] | | | | + + + [...] | | | Fingerstick | performed at [facility];[address] | | LAB | | | | [address];[place] | | | | | | [address] | | | | + + + [...] | | | Fingerstick | performed at [facility];[address] | | LAB | | | | [address];[place], [place] | | | | | | [address] | | | | + + + [...] | | | | | performed at [facility] | | | | | | [facility];[place] | | | | | | [address] | | | | + + + [...] | | | Fingerstick | performed at [facility];[address] | | LAB | | | | [address];[place] | | | | | | [address] | | | | + + + [...] | | at Ratio | performed at [facility], [address] | | LAB | | | | [facility], | | | | | | [place] [address] | | | | + + + [...] | | | | | performed at [facility], [address] | | | | | | [facility], | | | | | | [place] [address] | | | | + + + [...] LAB | | | | performed at [facility], [address] | | | | | [address], | | | | | | [place] [address] | | | | + + + [...] LAB | | | | performed at [facility], [address] | | | | | [address], | | | | | | [place] [address] | | | | + + + [...] | | | Fingerstick | performed at [facility];[address] | | LAB | | | | [address];[place], [place] | | | | | | [address] | | | | + + + [...] EXTERNAL | | | | performed at [facility], [address] | | LAB | | | | [address], | | | | | | [place] [address] | | | | + + + [...] EXTERNAL | | | | performed at [facility], [address] | | LAB | | | | [address], | | | | | | [place] [address] | | | | + + + [...] | | | | | performed at [facility], [address] | | | | | | [facility], | | | | | | [place] [address] | | | | + + + [...] | | | Fingerstick | performed at [facility];[address] | | LAB | | | | [address];[place], [place] | | | | | | [address] | | | | + + + [...] | | | Fingerstick | performed at [facility];[address] | | LAB | | | | [address];[place] | | | | | | [address] | | | | + + + [...] | A Brock: 0.60 m/s TV Dec [place]: 2.33 m/s2 TV Dec Time: | | | 240.52 ms TV E Brock: 0.56 m/s TV E/A Ratio: 0.92 | | | Associate Loan Officer: GONZALO Authenticated by: Brynn Crawford MD Report Date/Time: | | | -- [id number] | | + + + + + [...] mlLAESV Index (A-L): 40.23 ml/m2LAAs A2C: 24.44 oh4SQTVO A-L | | A2C: 74.48 mlLALs A2C: 6.81 cmLAAs A4C: 21.96 za4XDQNM A-L A4C: 68.67 mlLALs | | A4C: 5.96 cmRAAd: 13.73 mg6OLHMI A-L: 33.61 mlRAEDV MOD: 31.44 mlRALd: 4.76 | | cmEPSS: 2.39 cmAV maxP.50 mmHgAV meanP.57 mmHgAV Vmax: 1.76 m/John | | Vmean: 1.20 m/John VTI: 39.54 cmAVA Vmax: 2.19 cm2AVA (VTI): 2.37 kw6BSFJ Vmax: | | 0.00 cm2/m2AVAI (VTI): 0.00 [...] 25.31 cmTV A Brock: 0.60 m/sTV Dec [place]: 2.33 m/s2TV | | Dec Time: 240.52 msTV E Brock: 0.56 m/sTV E/A Ratio: 0.92 Associate Loan Officer: | | GDAuthenticated by: Brynn Crawford MDReport Date/Time: [id number] | | IMPRESSION: 1. Overall left ventricular [...] A Brock: 0.60 m/s | |TV Dec [place]: 2.33 m/s2 | |TV Dec Time: 240.52 ms | |TV E Brock: 0.56 m/s | |TV E/A Ratio: 0.92 | | | |Associate Loan Officer: GD | |Authenticated by: Brynn Crawford MD | |Report Date/Time: -- [id number] | | | |IMPRESSION: | |1. Overall [...] LAB | | | | [facility] [facility], [address] | | | | | | Janet Saeed, | | | | | | [place] [address] | | | | + + + [...] - 1.030 | EXTERNAL | | | [facility] | | | LAB | | + [...] | | | Urine | performed at [facility], [address] | | LAB | | | | Janet Saeed, | | | | | | [place] [address] | | | | + + + [...] EXTERNAL | | | | performed at [facility];888 | mmol/L | LAB | | | | Tal[address]ae[address];[place], [place] | | | | | | [address] | | | | + + + [...] | | | Fingerstick | performed at [facility];[address] | | LAB | | | | [address];[place], [place] | | | | | | [address] | | | | + + + [...] EXTERNAL | | | | performed at [facility], [address] | | LAB | | | | Janet Saeed, | | | | | | [place] [address] | | | | + + + [...] | | | | | [place]ty [place] [address] | | | | + + + [...] EXTERNAL | | | | performed at [facility], [address] | | LAB | | | | Janet Saeed, | | | | | | [place] [address] | | | | + + + [...] | EXTERNAL | | | A1c | [facility] | | LAB | | | [...] | | | | | performed at [facility], [address] | | | | | | [facility], | | | | | | [place] [address] | | | | + + + [...] | | | | | performed at [facility];[address] | | | | | | [facility];[place], [place] | | | | | | [address] | | | | + + + [...] | | | Fingerstick | performed at [facility];888 | | LAB | | | | [address];[place], [place] | | | | | | [address] | | | | + + + [...] EXTERNAL | | | | performed at [facility];888 | mmol/L | LAB | | | | Talita Saeed;[place] | | | | | | [address] | | | | + + + [...] | | | Fingerstick | performed at [facility];888 | | LAB | | | | [place] Sae[place] | | | | | | [address] | | | | + + + [...] LAB | | | | performed at [facility];[address] | | | | | | [address];[place], [place] | | | | | | [address] | | | | + + + [...] | | | Basophils | performed at [facility];[address] | K/uL | LAB | | | | [address];[place], [place] | | | | | | [address] | | | | + + + [...] | | | | | | MDRD IDMA traceable | | | | | | equation.Testing | | | | | | performed at [facility] | | | | | | [facility];[place], [place] | | | | | | [address] | | | | + + + [...] Diagnosis | + + | CAD in hamilton artery Coronary atherosclerosis of hamilton coronary artery | + + | Congestive heart failure, unspecified HF chronicity, unspecified heart failure type | | (HCC) | + + | Precordial pain | + + | Ischemic cardiomyopathy Other specified forms of chronic ischemic heart disease | + + documented in this encounter
--- OUTSIDE RECORDS SUMMARY | ~2019-06-03 | XMS | Encounter Summary ---
Demographics + + + | Address | [address] | | | [place] [address] | + + + | Home Phone | | + + + | Preferred Language | Unknown | + + + | Marital Status | | + + + | Mormon Affiliation | 1041 | + + + | Race | Unknown | + + + | Ethnic Group | Unknown | + + + Author + + + | Author | [facility] | | | and [place] | + + + | Organization | [facility] | | [...] Team Providers + +------+ + | Care Road Gang Supervisor Name | Role | Phone | + +------+ + | Bernadette Armendariz PA-C | PCP | | + +------+ + Encounter Details +--------+ + + + + | Date | Type | Department | Care Team | Description | +--------+ + + + + | 03/10/ | Orders Only | [facility] | James Pearce MD | | | 2019 | | NEPHROLOGY [place] | [address] [place] | | | | | [address] | [address] [facility] [place] | | | | | [facility] [place] [address] | [address] | | | | | [place] | | | | | | [address] | | | | | | [phone] | | | +--------+ + + + [...] 2019 | Visit | | [address] [facility] | | | | | | 160 [place] | | | | | | [address] | | | | | | | | +--------+---------+ + + + documented as of this encounter Visit Diagnoses Not on filedocumented in this encounter"
--- OUTSIDE RECORDS SUMMARY | ~2019-06-03 | XMS | Encounter Summary ---
Demographics + + + | Address | [address] | | | [place] [address] | + + + | Home Phone | | + + + | Preferred Language | Unknown | + + + | Marital Status | | + + + | Hinduism Affiliation | 1041 | + + + [...] Team Providers + +------+ + | Care Talent Engineer Name | Role | Phone | [...] [address] | | | | | [place], [place] | [address] | | | | | [address] | | | | | | [phone] | | | +--------+ + + + [...] 2019 | Visit | | [address] [facility] | | | | | | [address] [place] | | | | | | [address] | | | | | | | [...] MV A Brock: 0.82 m/s MV Dec Delta: 7.33 | | | m/s2 MV DecT: [...] | | | TR Vmax: 3.14 m/s Steel Layout Worker: ZORA Authenticated by: | | | TAMARA [...] cmLVIDd: 5.42 cmLVPWd: 0.88 cmLVOT Area: 3.30 my7UIJF Diam: | | 2.05 cm%FS: 19.68 %EF(Teich): [...] (A-L): 25.38 ml/m2LAAs | | A2C: 14.99 xq4DOSPU A-L A2C: 42.95 mlLALs A2C: 4.44 cmLAAs A4C: 15.41 mu1WWTLY | | A-L A4C: 43.34 mlLALs A4C: 4.65 cmRAAs: 12.68 gx4BPDZV A-L: 35.28 mlRAESV MOD: | | 33.87 mlRALs: 3.87 cmTAPSE: 1.84 cmAV maxP.42 mmHgAV meanP.69 mmHgAV | | Vmax: 1.36 m/John Vmean: 0.90 m/John VTI: 23.16 cmAVA Vmax: 2.43 cm2AVA (VTI): | | 2.55 bh1BTYI (Vmax): 0.00 cm2/m2AVAI (VTI): 0.00 cm2/m2LVOT maxP.01 mmHgLVOT | | meanP.12 mmHgLVSI Dopp: 34.03 ml/m2LVSV Dopp: 59.22 mlLVOT Vmax: 1.00 | | m/sLVOT Vmean: 0.69 m/sLVOT VTI: 17.90 cmMV A Brock: 0.82 m/sMV Dec Delta: 7.33 | | m/s2MV DecT: 140.20 msMV E Brock: 1.02 m/sMV E/A Ratio: 1.25MV PHT: 40.65 msMVA By | | PHT: 5.41 vp6Tgcbod e': 0.03 m/sSeptal E/e': 29.00Lateral e': 0.04 m/sLateral | | E/e': 24.10RAP: 10 mmHgRVSP: 49.46 mmHgTR maxP.46 mmHgTR Vmax: 3.14 m/s | | Steel Layout Worker: ZORAAuthenticated by: Kiko BUTLER Date/Time: 01-28-2018 18:52:56 [...] A Brock: 0.82 m/s | |MV Dec Delta: 7.33 m/s2 | |MV DecT: 140.20 ms [...] |TR Vmax: 3.14 m/s | | | |Steel Layout Worker: DBS | |Authenticated by: TAMARA MAHONEY MD [...]
--- OUTSIDE RECORDS SUMMARY | ~2019-06-03 | XMS | Encounter Summary ---
Demographics + + + | Address | [address] | | | [place] [address] | + + + | Home Phone | | + + + | Preferred Language | Unknown | + + + | Marital Status | | + + + | Scientologist Affiliation | 1041 | + + + | Race | Unknown | + + + | Ethnic Group | Unknown | + + + Author + + + | Author | [facility] | | | and [place] | + [...] Team Providers + +------+ + | Care Dock Pumper Name | Role | Phone | + +------+ + | Bernadette Armendariz PA-C | PCP | | + +------+ + Encounter Details +--------+ + + + + | Date | Type | Department | Care Team | Description | +--------+ + + + + | 03/11/ | Orders Only | [facility] | James Pearce MD | Essential (primary) | | 2019 | | NEPHROLOGY [place] | [address] [place] | hypertension | | | | [address] [place] | 160 [place], [place] | (Primary Dx); CKD | | | | 160 [place], [place] | [address] | (chronic kidney | | | | [address] | | disease), stage IV | | | | [phone] | | (HCC); Nephrotic | | | [...] 2018 | Visit | | [address] [facility] | | | | | | 160 [place], [place] | | | | | | [address] | | | | | | | [...]
--- OUTSIDE RECORDS SUMMARY | ~2019-06-03 | XMS | Encounter Summary ---
Demographics + + + | Address | [address] | | | [place] [address] | + + + | Home Phone | | + + + | Preferred Language | Unknown | + + + | Marital Status | | + + + | Mandaeism Affiliation | 1041 | + + + [...] Team Providers + +------+ + | Care Prosthetic Aides Teacher Name | Role | Phone | [...] [address] | | | | | [place], | [place] | | | | | [place] [address] | [place] [address] | | | | | [phone] | [phone] | | | | | | | [...] 2019 | Visit | | [address] [facility] | | | | | | 160 [place] | | | | | | [address] | | | | | | | [...]
--- OUTSIDE RECORDS SUMMARY | ~2019-06-03 | XMS | Encounter Summary ---
Demographics + + + | Address | [address] | | | [place] [address] | + + + | Home Phone | | + + + | Preferred Language | Unknown | + + + | Marital Status | | + + + | Zoroastrianism Affiliation | 1041 | + + + | Race | Unknown | + + + | Ethnic Group | Unknown | + + + Author + + + | Author | [facility] | | | and [place] | + + + | Organization | [facility] | | | [...] Team Providers + +------+ + | Care Public Health Worker Name | Role | Phone | [...] + + | 03/10/ | Telephone | [facility] | Сергей Gaitan | Other (procedure | | 2017 | | [address] | MD Don [address] | cancellation) | | | | [facility], | [address] [place] | | | | | [place] [address] | [place] [address] | | | | | [phone] | [phone] | | | | | | | [...] 2019 | Visit | | [address] [facility] | | | | | | [address] [place] | | | | | | [address] | | | | | | | | +--------+---------+ + + + documented as of this encounter Visit Diagnoses Not on filedocumented in this encounter"
--- OUTSIDE RECORDS SUMMARY | ~2019-06-03 | XMS | Encounter Summary ---
Demographics + + + | Address | [address] | | | [place] [address] | + + + | Home Phone [...] Team Providers + +------+ + | Care Veterinary Milk Specialist Name | Role | Phone | [...] + + | 03/16/ | Documentati | [facility] | Luis, | Results (03/13/19) | | 2019 | on | NEPHROLOGY [place] | [facility] | | | | | [address] | [address] | | | | | [place] [facility] [address] | | | | | | [place], [place] | | | | | | [address] | | | | | | [phone] | | | +--------+ + + + [...] 2019 | Visit | | [address] [facility] | | | | | | 160 [place], [place] | | | | | | [address] | | | | | | | [...] 1.005 - 1.030 | | | | [place] | | | | | + + [...]
--- OUTSIDE RECORDS SUMMARY | ~2019-06-03 | XMS | Encounter Summary ---
Demographics + + + | Address | [address] | | | [place] [address] | + + + | Home Phone [...] Team Providers + +------+ + | Care Associate Faculty Name | Role | Phone | + [...] (congestive | PA-C [address] | [address] | | | | | heart | [place] | [place], | | | | | failure) | [place] | [place] | | | | | (HCC) | [address] | [address] | | | | | Procedures | [place], | Phone: | | | | | TEMPLATE STORAGE CLERK 02/11 > | [place] | [phone] | | | | | PENDING DOS | [address] | Fax: | | | | | | Phone: | [phone] | | | | | | [phone] | | | | | | | Fax: | | | | | | | [phone] | | +--------+--------+ + + + + [...] | failure, unspecified | | | | [address] [place], | [address] [place] | HF chronicity, | | | | [place] [address] | [place] [address] | unspecified heart | | | | [phone] | [phone] | failure type (HCC) | | | [...] whether | | | | | | [place] or | | | | | | [...] procedure. 6. Make sure you have a mechanic driver to take you home. Your mechanic driver will also need to sign you [...] hospital line at and ask for nursing pressure supervisor t o let them know you [...] 4.7 Final Albumin/Globulin Ratio 01/27/2018 0.5 Final [facility] 01/27/2018 27.0 26.0 - 33.0 pg Final MCHC 01/27/2018 33.0 30.0 - 36.0 % Final BASOPHILS % 01/27/2018 0.3 1.0 % Final I reviewed records from [facility] for hospitalization,including H&P, Discharge [facility] and lab reports on 01/27/18 and [...] made to ensure accuracy; however, inadvertent computerized loan clerk errors may be pre sent. Electronically signed by: Kyler Vasquez MD PhD [facility] 03/03/2018 documented in t his encounter Plan of Treatment +--------+---------+ + + + | Date | Type | Specialty | Care Team | Description | +--------+---------+ + + + | 06/22/ | Office | Nephrology | James Pearce MD | | | 2019 | Visit | | [address] [facility] | | | | | | 160 [place], [place] | | | | | | [address] | | | | | | | [...] whether | | | | | | [place] or | | | | | | [...] whether | | | | | | [place] or | | | | | | [...] whether | | | | | | [place] or | | | | | | [...] MD | | | | | | ([id number]) on 03/04/2018 | | | | | [...] | + + | Myocardial infarction, unspecified [place] type, unspecified artery (HCC) | + + | Cerebrovascular accident (CVA), unspecified mechanism (HCC) | + + | Hypertension, unspecified type | + + | Heart disease Heart disease, unspecified | + + | Tobacco use disorder | + + | Coronary artery disease, angina presence unspecified, unspecified vessel or lesion | | type, unspecified whether [place] or transplanted heart | + + documented in this encounter
--- OUTSIDE RECORDS SUMMARY | ~2019-06-03 | XMS | Encounter Summary ---
Demographics + + + | Address | [address] | | | [place] [address] | + + + | Home Phone [...] + + | Author | [facility] | + + + | Organization | [facility] | + + + | Address | Unknown | + + + | Phone | Unavailable | + + + Support + + + + + | Name | Relationship | Address | Phone | + + + + + | Angene Bill | ECON | [address] | | | | [address] [place], [place] | | | | | [address] | | + + + + + Care Team Providers + +------+ + | Care Manager Technical Services Name | Role | Phone | + [...] | | | | | livia | [place], [place] | | | | | | [address] | | | +--------+ + + + [...]
--- OUTSIDE RECORDS SUMMARY | ~2019-06-03 | XMS | Encounter Summary ---
Demographics + + + | Address | [address] | | | [place] [address] | + + + | Home Phone | | + + + | Preferred Language | Unknown | + + + | Marital Status | | + + + | Anabaptist Affiliation | 1041 | + + + [...] Providers + +------+ + | Care General Farmer Name | Role | Phone | + [...] | Congestive | Сергей | [address] | | | | | heart | MD Don | [place], | | | | | failure, | [address] | [place] | | | | | unspecified | St [place] | [address] | | | | | HF | [place], [place] | Phone: | | | | | chronicity, | [address] | [phone] | | | | | unspecified | Phone: | Fax: | | | | | heart | [phone] | [phone] | | | | | failure type | Fax: | | | | | | (HCC) | [phone] | | | | | | Coronary [...] | | | | | | | [place] | | | | | | | transplanted | | | | | | | heart | | | | | | | Procedures | | | | | | | ECHO | | | | | | | Complete [place] | | | | | | | ECHO HEART | | | | | | | XTHORACIC,[place] | | | | | | | MPLETE W | | | | | | | DOPPLER [place] | | | | | | | [...] [address] | | | | | [address] [place], | [address] [place] | | | | | [place] [address] | [place] [address] | | | | | [phone] | | | | | | | [...] 2019 | Visit | | [address] [facility] | | | | | | 160 [place], [place] | | | | | | [address] | | | | | | | [...] whether | | | | | | [place] or | | | | | | [...] or lesion | | type, unspecified whether [place] or transplanted heart | + + documented in this encounter"
--- OUTSIDE RECORDS SUMMARY | ~2019-06-03 | XMS | Encounter Summary ---
Demographics + + + | Address | [address] | | | [place] [address] | + + + | Home Phone | | + + + | Preferred Language | Unknown | + + + | Marital Status | | + + + | Scientology Affiliation | 1041 | + + + | Race | Unknown | + + + | Ethnic Group | Unknown | + + + Author + + + | Author | [facility] | | | and [place] | + + + | Organization | [facility] | | | [...] Team Providers + +------+ + | Care Burial Vault Deliverer And Installer Name | Role | Phone | + +------+ + PCP | Unavailable | + +------+ + Encounter Details +--------+ + + + + | Date | Type | Department | Care Team | Description | +--------+ + + + + | 02/09/ | Hospital | [facility] | Ilan [place], | | | 1989 - | Encounter | MED CTR MED ONC | MD [address] | | | | | [address] [place] | [place], [place] | | | 02/12/ | | [place] [address] | [address] | | | 1989 | | [phone] | | | +--------+ + + + [...] 2019 | Visit | | [address] [facility] | | | | | | [address] [place] | | | | | | [address] | | | | | | | | +--------+---------+ + + + documented as of this encounter Visit Diagnoses Not on filedocumented in this encounter"
--- OUTSIDE RECORDS SUMMARY | ~2019-06-03 | XMS | Encounter Summary ---
Demographics + + + | Address | [address] | | | [place] [address] | + + + | Home Phone | | + + + | Preferred Language | Unknown | + + + | Marital Status | | + + + | Jainism Affiliation | 1041 | + + + [...] Team Providers + +------+ + | Care Ensemble Member Name | Role | Phone | + +------+ + | Bernadette Armendariz PA-C | PCP | | + +------+ + Encounter Details +--------+ + + + + | Date | Type | Department | Care Team | Description | +--------+ + + + + | 02/23/ | Orders Only | [facility] | Provider, | Essential (primary) | | 2018 | | SYSTEM GENERIC OP | MD [address] | hypertension; Type 2 | | | | CONVERSION [address] | [address] | diabetes mellitus | | | | [address] [place], [place] | [place] [address] | with complications | | | | [address] | | ([facility]); Acute kidney | | | | [phone] | | failure ([facility]); | | | | | | Chronic kidney | | | | | | disease, stage IV | | | | | | (severe) ([facility]); | | | | | | Proteinuria; | | | | | | Secondary | | | | | | hyperparathyroidism | | | | | | of renal origin | | | | | | ([facility]); Vitamin D | | | | | [...] 2019 | Visit | | [address] [facility] | | | | | | 160 [place], [place] | | | | | | [address] | | | | | | | [...] | | ([facility]) Vitamin D | | | | | [...] | | ([facility]) Vitamin D | | | | | [...] | | | | | (severe) ([facility]) | | | | | | Proteinuria | | | | | | Secondary | | | | | | hyperparathyroidism | | | | | | of renal origin | | | | | | ([facility]) Vitamin D | | | | | [...] | | | | | (severe) ([facility]) | | | | | | Proteinuria | | | | | | Secondary | | | | | | hyperparathyroidism | | | | | | of renal origin | | | | | | ([facility]) Vitamin D | | | | | [...]
--- OUTSIDE RECORDS SUMMARY | ~2019-06-03 | XMS | Encounter Summary ---
Demographics + + + | Address | [address] | | | [place] [address] | + + + | Home Phone [...] Team Providers + +------+ + | Care Tire Changer Name | Role | Phone | + +------+ + | Bernadette Armendariz PA-C | PCP | | + +------+ + Encounter Details +--------+---------+ + + + | Date | Type | Department | Care Team | Description | +--------+---------+ + + + | 03/16/ | Office | [facility] | James Pearce MD | CKD (chronic kidney | | 2019 | Visit | NEPHROLOGY [place] | [address] [facility] [address] [facility] | disease), stage IV | | | | [address] | 160 [place], [place] | ([facility]) (Primary Dx); | | | | [address] | [address] | Vitamin D | | | | [place], [place] | | deficiency; Anemia | | | | [address] | | of chronic renal | | | | [phone] | | failure, stage 4 | | [...] RFP, CBC, Iron studies, Ferritin, intact PTH, 64-woiccoq-ucljvru D befor e she comes back in 3 months. P M PDT documented in this encounter Progress Notes James Pearce MD - 03/16/2019 2:10 PM PDT Progress Notes by James Pearce MD at 11/17/18 9106 Author: James Pearce MD Service: (none) Author Type: Physician Filed: 11/17/18 5850 Encounter Date: 11/17/2018 Status: Signed Publicity Person: James Pearce MD (Physician) Patient Active Problem [...] LABIRON 82.2 (A) 11/12/2018 LABPROT 4.982 08/07/2018 [id number] 8.5 (A) 11/12/2018 Assessment: Ms. Martin is [...] RFP, CBC, Iron studies, Ferritin, intact PTH, 04-jzpumzy-zxsbaqj D befor e she comes back in 3 months. Thank you Colleague for the opportunity to see this patient in F/U today. Please do not hes itate to call me at any time with questions or concerns. Truly yours, James Pearce MD [facility] MARIA LUISA ERLINDA documented in this enco unter Plan of Treatment +--------+---------+ + + + | Date | Type | Specialty | Care Team | Description | +--------+---------+ + + + | 06/22/ | Office | Nephrology | James Pearce MD | | | 2019 | Visit | | [address] [facility] | | | | | | 160 [place], [place] | | | | | | [address] | | | | | | | [...]
--- OUTSIDE RECORDS SUMMARY | ~2019-06-03 | XMS | Encounter Summary ---
Demographics + + + | Address | [address] | | | [place] [address] | + + + | Home Phone | | + + + | Preferred Language | Unknown | + + + | Marital Status | | + + + | Hindu Affiliation | 1041 | + + + [...] Team Providers + +------+ + | Care Sheet Fed Printer Name | Role | Phone | + +------+ + | Bernadette Armendariz PA-C | PCP | | + +------+ + Encounter Details +--------+ + + + + | Date | Type | Department | Care Team | Description | +--------+ + + + + | 03/11/ | Orders Only | [facility] | James Pearce MD | Essential (primary) | | 2019 | | NEPHROLOGY [place] | [address] [place] | hypertension | | | | [address] [place] | [address] [place], [place] | (Primary Dx); CKD | | | | [address] [place], [place] | [address] | (chronic kidney | | | | [address] | | disease), stage IV | | | | [phone] | | (HCC); Nephrotic | | | [...] 2018 | Visit | | [address] [facility] | | | | | | 160 [place], [place] | | | | | | [id number] | | | | | | | [...]
--- OUTSIDE RECORDS SUMMARY | ~2019-06-03 | XMS | Encounter Summary ---
Demographics + + + | Address | [address] | | | [place] [address] | + + + | Home Phone [...] Team Providers + +------+ + | Care Restaurant And Bar Manager Name | Role | Phone | + +------+ + PCP | Unavailable | + +------+ + Encounter Details +--------+ + + + + | Date | Type | Department | Care Team | Description | +--------+ + + + + | 02/09/ | Hospital | [facility] | Ilan Pitts, | | | 1989 - | Encounter | MED CTR MED ONC | MD [address] | | | | | [address] [place] | [place], [place] | | | 02/12/ | | [place] [address] | [address] | | | 1989 | | [phone] | | | +--------+ + + + [...] | Visit | | [address] [facility] | | | | | | [address] [place] | | | | | | [address] | | | | | | | | +--------+---------+ + + + documented as of this encounter Visit Diagnoses Not on filedocumented in this encounter"
--- OUTSIDE RECORDS SUMMARY | ~2019-06-03 | XMS | Encounter Summary ---
Demographics + + + | Address | [address] | | | [place] [address] | + + + | Home Phone [...] Team Providers + +------+ + | Care Head Mixer Name | Role | Phone | [...] | Congestive | Сергей | [address] | | | | | heart | MD Don | [place], | | | | | failure, | [address] | [place] | | | | | unspecified | St [place] | [address] | | | | | HF | [place], [place] | Phone: | | | | | chronicity, | [address] | [phone] | | | | | unspecified | Phone: | Fax: | | | | | heart | [phone] | [phone] | | | | | failure type | Fax: | | | | | | (HCC) | [phone] | | | | | | Coronary [...] | | | | | | | hoh or | | | | | | | transplanted | | | | | | | heart | | | | | | | Procedures | | | | | | | ECHO | | | | | | | Complete [place] | | | | | | | ECHO HEART | | | | | | | XTHORACIC,[place] | | | | | | | MPLETE W | | | | | | | DOPPLER [place] | | | | | | | [...] [address] | | | | [address], | [address] [place] | | | | | [place] [address] | [place] [address] | | | | | [phone] | [phone] | | | | | | | [...] 2019 | Visit | | [address] [facility] | | | | | | [address] [place], [place] | | | | | | [address] | | | | | | | [...] whether | | | | | | hoh or | | | | | | [...] or lesion | | type, unspecified whether hoh or transplanted heart | + + documented in this encounter"
--- OUTSIDE RECORDS SUMMARY | ~2019-06-03 | XMS | Encounter Summary ---
Demographics + + + | Address | [address] | | | [place] [address] | + + + | Home Phone | | + + + | Preferred Language | Unknown | + + + | Marital Status | | + + + | Yazidism Affiliation | 1041 | + + + | Race | Unknown | + + + | Ethnic Group | Unknown | + + + Author + + + | Author | [facility] | | | and [place] | + + + | Organization | [facility] | | | [...] Team Providers + +------+ + | Care Packing Clerk Name | Role | Phone | [...] | | | failure, | [address] | | | | | unspecified | St [place] | [place], [place] | | | | | HF | [place], [place] | [address] Phone: | | | | | chronicity, | [address] | [phone] | | | | | unspecified | Phone: | Fax: | | | | | heart | [phone] | [phone] | | | | | failure type | Fax: | | | | | | ([facility]) | [phone] | | | | | | Coronary [...] | | | | | | | ambler or | | | | | | [...] | heart | NW | [address] | | | | | failure) | [place] | [address] [place] | | | | | (HCC) | [address] | [facility], [place] | | | | | Procedures | [place], | [address] Phone: | | | | | 2 month | [place] | [phone] | | | | | follow up | [address] | Fax: | | | | | with | Phone: | [phone] | | | | | [place] | [phone] | | | | | | | Fax: | | | | | | | [phone] | | +--------+--------+ + + + + Encounter Details +--------+---------+ + + + | Date | Type | Department | Care Team | Description | +--------+---------+ + + + | 05/13/ | Office | [facility] | Сергей Gaitan | Congestive heart | | 2018 | Visit | CARDIOLOGY [address] | MD Don [address] | failure, unspecified | | | | [address] [place], | [address] [place] | HF chronicity, | | | | [place] [address] | [place] [address] | unspecified heart | | | | [phone] | [phone] | failure type (HCC) | | | [...] whether | | | | | | ambler or | | | | | | [...] documented in this encounter Progress Notes Сергей Giatan MD - 05/13/2018 1:30 PM PDTFormatting of [...] Record I previously reviewed records from [facility] for hospitalization,including H&P, Discharge Summary [...] made to ensure accuracy; however, inadvertent computerized pot fisher errors may be pre sent. Electronically signed by: Kyler Gaitan MD PhD FACC 05/13/2018 documented in t his encounter Plan of Treatment +--------+---------+ + + + | Date | Type | Specialty | Care Team | Description | +--------+---------+ + + + | 06/22/ | Office | Nephrology | James Pearce MD | | | 2019 | Visit | | [address] [facility] | | | | | | [address] [place] | | | | | | [address] | | | | | | | | +--------+---------+ + + + + + +--------+ + + | Name | Type | Priori | Associated Diagnoses | Order Schedule | | | | ty | | | + + +--------+ + + | External Referral to | Outpatient | Routin | Congestive heart | Ordered: 05/16/2018 | | [facility] | Referral | e | failure, unspecified | | | Cardiology | | | HF chronicity, | | | | | | unspecified heart | | | | | | failure type ([facility]) | | | | | | Coronary artery | | | | | | disease, angina | | | | | | presence | | | | | | unspecified, | | | | | | unspecified vessel | | | | | | or lesion type, | | | | | | unspecified whether | | | | | | ambler or | | | | | | transplanted heart | | + + +--------+ + + documented as of this encounter Visit Diagnoses + + | Diagnosis | + + | Congestive heart failure, unspecified HF chronicity, unspecified heart failure type | | ([facility]) - Primary | + + | Myocardial infarction, unspecified [place] type, unspecified artery (HCC) | + + | Essential hypertension Unspecified essential hypertension | + + | Cerebrovascular accident (CVA), unspecified mechanism (HCC) | + + | Heart disease Heart disease, unspecified | + + | Coronary artery disease, angina presence unspecified, unspecified vessel or lesion | | type, unspecified whether ambler or transplanted heart | + + documented in this encounter
--- OUTSIDE RECORDS SUMMARY | ~2019-06-03 | XMS | Encounter Summary ---
Demographics + + + | Address | [address] | | | [place] [address] | + + + | Home Phone [...] Team Providers + +------+ + | Care Scientific Informatics Analyst Name | Role | Phone | + +------+ + | Bernadette Armendariz PA-C | PCP | | + +------+ + Encounter Details +--------+ + + + + | Date | Type | Department | Care Team | Description | +--------+ + + + + | 08/04/ | Orders Only | [facility] | Brynn Crawford MD | | | 2019 | | CARDIOLOGY [place] | [address] | | | | | [address] | [place] [address] | | | | | [place], [place] | [phone] | | | | | [address] | | | | | | [phone] | | | +--------+ + + + [...] 2019 | Visit | | [address] [facility] | | | | | | [address] [place] | | | | | | [address] | | | | | | | [...]
--- OUTSIDE RECORDS SUMMARY | ~2019-06-03 | XMS | Encounter Summary ---
Demographics + + + | Address | [address] | | | [place] [address] | + + + | Home Phone [...] Providers + +------+ + | Care Psychiatric Rn Name | Role | Phone | + [...] + + | 11/14/ | Telephone | [facility] | Сергей Gaitan | Other (Testing, | | 2018 | | [facility] [address] | MD oDn [address] | Labs) | | | | [place], | [address] [place] | | | | | [place] [address] | [place] [address] | | | | | [phone] | [phone] | | | | | | | [...] 2018 | Visit | | [address] [facility] [place] | | | | | | [address] [facility] [place] [place] | | | | | | [address] | | | | | | | [...] | | | | | | unspecified [place] type, | | | | | | [...] | | | | | | unspecified [place] type, | | | | | | [...] | | | | | | unspecified [place] type, | | | | | | [...] | + + | Myocardial infarction, unspecified [place] type, unspecified artery (HCC) | + + | Essential hypertension Unspecified essential hypertension | + + | Encounter for lipid screening for cardiovascular disease | + + documented in this encounter"
--- OUTSIDE RECORDS SUMMARY | ~2019-06-03 | XMS | Encounter Summary ---
Demographics + + + | Address | [address] | | | [place] [address] | + + + | Home Phone [...] Team Providers + +------+ + | Care Clipper Counters Name | Role | Phone | + +------+ + | Bernadette Armendariz PA-C | PCP | | + +------+ + Encounter Details +--------+ + + + + | Date | Type | Department | Care Team | Description | +--------+ + + + + | 03/10/ | Orders Only | [facility] | James Pearce MD | | | 2019 | | NEPHROLOGY [place] | [address] [place] | | | | | [address] [place] | [address] [facility] [place], [place] | | | | | [address] [facility] [place], [place] | [address] | | | | | [address] | | | | | | [phone] | | | +--------+ + + + [...] | | [address] [facility] | | | | | | [address] [place], [place] | | | | | | [address] | | | | | | | | +--------+---------+ + + + documented as of this encounter Visit Diagnoses Not on filedocumented in this encounter"
--- OUTSIDE RECORDS SUMMARY | ~2019-06-03 | XMS | Encounter Summary ---
Demographics + + + | Address | [address] | | | [place] [address] | + + + | Home Phone [...] Team Providers + +------+ + | Care Patch Finisher Name | Role | Phone | [...] | | | | | | [place] [address] | | | | | | [phone] | | | +--------+ + + + [...] | Visit | | [address] [facility] | | | | | | [address] [place], [place] | | | | | | [address] | | | | | | | | +--------+---------+ + + + documented as of this encounter Visit Diagnoses Not on filedocumented in this encounter"
--- OUTSIDE RECORDS SUMMARY | ~2019-06-03 | XMS | Encounter Summary ---
Demographics + + + | Address | [address] | | | [place] [address] | + + + | Home Phone [...] Team Providers + +------+ + | Care Art Department Head Name | Role | Phone | [...] | | | failure, | [address] | | | | | unspecified | St [place] | [place], [place] | | | | | HF | [place], [place] | [address] Phone: | | | | | chronicity, | [address] | [phone] | | | | | unspecified | Phone: | Fax: | | | | | heart | [phone] | [phone] | | | | | failure type | Fax: | | | | | | ([facility]) | [phone] | | | | | | Coronary [...] | | | | | | | chemehuevi or | | | | | | [...] | heart | NW | [address] | | | | | failure) | [place] | [address] [place] | | | | | (HCC) | [address] | [facility], [place] | | | | | Procedures | [place], | [address] Phone: | | | | | 2 month | [place] | [phone] | | | | | follow up | [address] | Fax: | | | | | with | Phone: | [phone] | | | | | [place] | [phone] | | | | | | | Fax: | | | | | | | [phone] | | +--------+--------+ + + + + Encounter Details +--------+---------+ + + + | Date | Type | Department | Care Team | Description | +--------+---------+ + + + | 05/13/ | Office | [facility] | Сергей Gaitan | Congestive heart | | 2018 | Visit | CARDIOLOGY [address] | MD [address] | failure, unspecified | | | | [place], | [address] [place] | HF chronicity, | | | | [place] [address] | [place] [address] | unspecified heart | | | | [phone] | [phone] | failure type (HCC) | | | [...] whether | | | | | | chemehuevi or | | | | | | [...] Medical Record I previously reviewed records from [facility] for hospitalization,including H&P, Discharge Summary [...] made to ensure accuracy; however, inadvertent computerized grinder setup operator errors may be pre sent. Electronically [...] [place] | | | | | | [address] | | | | | | | | +--------+---------+ + + + + + +--------+ + + | Name | Type | Priori | Associated Diagnoses | Order Schedule | | | | ty | | | + + +--------+ + + | External Referral to | Outpatient | Routin | Congestive heart | Ordered: 05/16/2018 | | [facility] | Referral | e | failure, unspecified | | | Cardiology | | | HF chronicity, | | | | | | unspecified heart | | | | | | failure type ([facility]) | | | | | | Coronary artery | | | | | | disease, angina | | | | | | presence | | | | | | unspecified, | | | | | | unspecified vessel | | | | | | or lesion type, | | | | | | unspecified whether | | | | | | chemehuevi or | | | | | | transplanted heart | | + + +--------+ + + documented as of this encounter Visit Diagnoses + + | Diagnosis | + + | Congestive heart failure, unspecified HF chronicity, unspecified heart failure type | | ([facility]) - Primary | + + | Myocardial infarction, unspecified [place] type, unspecified artery (HCC) | + + | Essential hypertension Unspecified essential hypertension | + + | Cerebrovascular accident (CVA), unspecified mechanism (HCC) | + + | Heart disease Heart disease, unspecified | + + | Coronary artery disease, angina presence unspecified, unspecified vessel or lesion | | type, unspecified whether chemehuevi or transplanted heart | + + documented in this encounter
--- OUTSIDE RECORDS SUMMARY | ~2019-06-03 | XMS | Encounter Summary ---
Demographics + + + | Address | [address] | | | [place] [address] | + + + | Home Phone | | + + + | Preferred Language | Unknown | + + + | Marital Status | | + + + | Mormon Affiliation | 1041 | + + + | Race | Unknown | + + + | Ethnic Group | Unknown | + + + Author + + + | Author | [facility] | | | and [place] | + + + | Organization | [facility] | | [...] Team Providers + +------+ + | Care Lay Out Carpenter Name | Role | Phone | + +------+ + | Bernadette Armendariz PA-C | PCP | | + +------+ + Encounter Details +--------+ + + + + | Date | Type | Department | Care Team | Description | +--------+ + + + + | 02/23/ | Orders Only | [facility] | Provider, | Essential (primary) | | 2018 | | SYSTEM GENERIC OP | [address] | hypertension; Type 2 | | | | CONVERSION [address] | [address] | diabetes mellitus | | | | [address] [place], [place] | [place] [address] | with complications | | | | [address] | | ([facility]); Acute kidney | | | | [phone] | | failure ([facility]); | [...] 2019 | Visit | | [address] [facility] | | | | | | [address] [place], [place] | | | | | | [address] | | | | | | | [...]
--- OUTSIDE RECORDS SUMMARY | ~2019-06-03 | XMS | Encounter Summary ---
Demographics + + + | Address | [address] | | | [place] [address] | + + + | Home Phone | | + + + | Preferred Language | Unknown | + + + | Marital Status | | + + + | Sikh Affiliation | 1041 | + + + | Race | Unknown | + + + | Ethnic Group | Unknown | + + + Author + + + | Author | [facility] | | | and [place] | + + + | Organization | [facility] | [...] Providers + +------+ + | Care Machine Designer Name | Role | Phone | + [...] + + | 03/10/ | Telephone | [facility] | Сергей Gaitan | Other (procedure | | 2017 | | [address] | MD [address] | cancellation) | | | | [place], | [address] [place] | | | | | [place] [address] | [place] [address] | | | | | [phone] | [phone] | | | | | | | [...] [address] [facility] | | | | | | [address] [place] | | | | | | [address] | | | | | | | | +--------+---------+ + + + documented as of this encounter Visit Diagnoses Not on filedocumented in this encounter"
--- OUTSIDE RECORDS SUMMARY | ~2019-06-03 | XMS | Encounter Summary ---
Demographics + + + | Address | [address] | | | [place] [address] | + + + | Home Phone [...] Providers + +------+ + | Care Laboratory Mechanical Technician Name | Role | Phone | + +------+ + | Bernadette Armendariz PA-C | PCP | | + +------+ + Encounter Details +--------+ + + + + | Date | Type | Department | Care Team | Description | +--------+ + + + + | 08/04/ | Orders Only | [facility] | Brynn Crawford MD | | | 2019 | | CARDIOLOGY [place] | [address] | | | | | [address] | [place] [address] | | | | | [place], [place] | [phone] | | | | | [address] | | | | | | [phone] | | | +--------+ + + + [...] 2019 | Visit | | [address] [facility] | | | | | | [address] [place] | | | | | | [address] | | | | | | | [...]
--- OUTSIDE RECORDS SUMMARY | ~2019-06-03 | XMS | Encounter Summary ---
Demographics + + + | Address | [address] | | | [place] [address] | + + + | Home Phone [...] Team Providers + +------+ + | Care Dipper Clock And Watch Hands Name | Role | Phone | + [...] [place] [place] | | | | | [place], [place] | [address] | | | | | [address] | | | | | | [phone] | | | +--------+ + + + [...] | | [address] [facility] | | | | | | [address] [place] | | | | | | [address] | | | | | | | [...] : 1955 | | | Performing Physician: TMAARA MAHONEY MD | | | | | [...] MV A Brock: 0.82 m/s MV Dec Pierce: 7.33 | | | m/s2 MV DecT: [...] | | | TR Vmax: 3.14 m/s Mechanical Press Operator: ZORA Authenticated by: | | | [...] cmLVIDd: 5.42 cmLVPWd: 0.88 cmLVOT Area: 3.30 [id number] Diam: | | 2.05 cm%FS: 19.68 %EF(Teich): [...] (A-L): 25.38 ml/m2LAAs | | A2C: 14.99 [id number] A-L A2C: 42.95 mlLALs A2C: 4.44 cmLAAs A4C: 15.41 ph6RAXDS | | A-L A4C: 43.34 mlLALs A4C: 4.65 cmRAAs: 12.68 me6LYALZ A-L: 35.28 mlRAESV MOD: | | 33.87 mlRALs: 3.87 cmTAPSE: 1.84 cmAV maxP.42 mmHgAV meanP.69 mmHgAV | | Vmax: 1.36 m/John Vmean: 0.90 m/John VTI: 23.16 cmAVA Vmax: 2.43 cm2AVA (VTI): | | 2.55 es7EJST (Vmax): 0.00 cm2/m2AVAI (VTI): 0.00 cm2/m2LVOT maxP.01 mmHgLVOT | | meanP.12 mmHgLVSI Dopp: 34.03 ml/m2LVSV Dopp: 59.22 mlLVOT Vmax: 1.00 | | m/sLVOT Vmean: 0.69 m/sLVOT VTI: 17.90 cmMV A Brock: 0.82 m/sMV Dec Pierce: 7.33 | | m/s2MV DecT: 140.20 msMV E Brock: 1.02 m/sMV E/A Ratio: 1.25MV PHT: 40.65 msMVA By | | PHT: 5.41 qc3Odkode e': 0.03 m/sSeptal E/e': 29.00Lateral e': 0.04 m/sLateral | | E/e': 24.10RAP: 10 mmHgRVSP: 49.46 mmHgTR maxP.46 mmHgTR Vmax: 3.14 m/s | | Mechanical Press Operator: ZORAAuthenticated by: Kiko BUTLER Date/Time: 01-28-2018 [...] A Brock: 0.82 m/s | |MV Dec Pierce: 7.33 m/s2 | |MV DecT: 140.20 ms [...] |TR Vmax: 3.14 m/s | | | |Mechanical Press Operator: DBS | |Authenticated by: TAMARA MAHONEY [...]
--- OUTSIDE RECORDS SUMMARY | ~2019-06-03 | XMS | Encounter Summary ---
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 | Transaction, | artery; Congestive | | | | CARE FLOOR [address] | Provider Unknown | heart failure, | | | | [address] | [phone] | unspecified HF | | 2019 | | [place], [place] | | chronicity, | | | | [address] | Brynn Crawford MD | unspecified heart | | | | [phone] | [address] | failure type (HCC); | | | | | [place] [address] | Precordial pain; | | | | | [phone] | Ischemic | | | | | [...] 08/11/181929 Date of Service: 08/10/18941 Status: Signed Refractory Manager: Gustavo Castorena MD (Physician) [facility] Service: Hospitalist Physician Discharge Summary Patient [...] Invalid input(s): ABG Disposition: HOME Follow up: [facility] [address] [place] [address] [place] [phone] Schedule an appointment as soon as possible [...] 1558 Date of Service: 08/11/181499 Status: Signed Refractory Manager: Cinthya Carmen RN (Registered Nurse) Pt discharge home with family. Pt states understanding about scripts and paperwork. IV d/c. Tele d/c. Family to transport pt home. onver federico Transaction, Provider Unknown - 08/11/2018 12:50 PM PST Case Management by Damaris Canchola RN at 08/11/181249 Author: Damaris Canchola RN Service: (none) Author Type: Registered Nurse Filed: 08/11/181249 Date of Service: 08/11/181249 Status: Signed Refractory Manager: Damaris Canchola RN (Registered Nurse) Met with [...] Date of Service: 08/11/18 1045 Status: Signed Refractory Manager: Shin Rivera MD (Physician) PCP : [facility] LOS: 5 days Maria Ines Martin [...] was completed later after rounds. Dictation software, Odyssey Thera, was used which may contain error for [...] 08/11/18615 Date of Service: 08/11/18614 Status: Signed Refractory Manager: Francy Beckford RN (Registered Nurse) VSS. Patient [...] 08/10/181751 Date of Service: 08/10/181747 Status: Signed Refractory Manager: Kaia Penaloza RN (Registered Nurse) Pt down [...] Notes by Teena Encinas RD at 08/10/18 9266 Author: Teena Encinas RD Service: (none) Author Type: Registered Dietitian Filed: 08/10/18 9357 Date of Service: 08/10/186 Status: Signed Refractory Manager: Teena Encinas RD (Registered Dietitian) 08/10/18 2649 Subjective Timepoint Follow up (diet education) Food and Nutrition Knowledge Area(s) and Level of Knowledge In to see pt for renal cardiac diet. Pt K+ WNL at this time but hx hyperkalemia. Discussed high potassium foods and provided list from [facility]. Discussed th at she does not need to limit at this time with ARF and WNL K+ but may need to in the future . Provided low sodium handout from [facility] and discussed. Pt reports that she is [...] Date of Service: 08/10/18 1209 Status: Signed Refractory Manager: Shin Rivera MD (Physician) PCP : [facility] LOS: 4 days Maria Ines Martin [...] was completed later after rounds. Dictation software, Odyssey Thera, was used which may contain error for [...] 0957 Date of Service: 08/10/18951 Status: Signed Refractory Manager: Gustavo Castorena MD (Physician) [facility] Service: Hospitalist Progress Note Hospital Day: LOS: 4 days SUBJECTIVE Still c/o back pain. Slept well Did not see case management social worker HPI: Ms. Maria Ines Martin is [...] and management as well as Computerized Physician Health Unit Coordinator. Disposition: Home ? Code Status: Full Code Gustavo Castorena MD 08/10/2018 9:57 AM onversion Transactio n, Provider Unknown - 08/10/2018 6:23 AM PST Nurse Progress Note by Francy Beckford RN at 08/10/18622 Author: Francy Beckford RN Service: (none) Author Type: Registered Nurse Filed: 08/10/18627 Date of Service: 08/10/18622 Status: Signed Refractory Manager: Francy Beckford RN (Registered Nurse) VSS. Pt [...] 08/09/181751 Date of Service: 08/09/181749 Status: Signed Refractory Manager: Kaia Penaloza RN (Registered Nurse) VSS today. [...] Notes by Shin Rivera MD at 08/09/18 9809 Author: Shin Rivera MD Service: Nephrology Author Type: Physician Filed: 08/10/18 0751 Date of Service: 08/09/181747 Status: Signed Refractory Manager: Shin Rivera MD (Physician) PCP : [facility] LOS: 3 days Maria Ines Martin [...] outpatient follow up with Dr. Pearce in [place]. Strict low K diet. Diet 2 gm [...] was completed later after rounds. Dictation software, Odyssey Thera, was used which may contain error for [...] 1421 Date of Service: 08/09/181415 Status: Signed Refractory Manager: Gustavo Castorena MD (Physician) [facility] Service: Hospitalist Progress Note Hospital Day: [...] and management as well as Computerized Physician Health Unit Coordinator. Disposition: Home ? Code Status: Full Code Gustavo Castorena MD 08/09/2018 2:16 PM onversion Transactio n, Provider Unknown - 08/09/2018 6:26 AM PST Nurse Progress Note by Francy Beckford RN at 08/09/18 2297 Author: Francy Beckford RN Service: (none) Author Type: Registered Nurse Filed: 08/09/18 0576 Date of Service: 08/09/18625 Status: Signed Refractory Manager: Francy Beckford RN (Registered Nurse) Patient complained [...] 08/08/182000 Date of Service: 08/08/182000 Status: Signed Refractory Manager: Nimo Heredia RN (Registered Nurse) No significant [...] Date of Service: 08/08/18 164 Status: Signed Refractory Manager: Brynn Crawford MD (Physician) [facility] Service: Cardiology/[facility] Progress Note RE: Maria Ines [...] Mild mitral regurgitation is present. Scores: 1. [id number]-Kkas Score: 3 2. Thai Anginal Score: 3 3. NYHA Score: 2 [...] 1541 Date of Service: 08/08/181535 Status: Signed Refractory Manager: Damaris Canchola RN (Registered Nurse) Tc from [facility]([phone]), CM with [facility] re d/c plan, infor med that d/c date is still unknown. [facility] transport dept, states they dont provide transportation on [place]kn[place], but would need to call [facility] for [place] transport call . If [facility] is not able to provide transportation, need to ask family or pay for taxi. Kathe Gustavo Lara MD - 08/08/2018 2:53 PM PSTFormatting of this note might be different from the or iginal. Progress Notes by Gustavo Castorena MD at 08/08/18 4439 Author: Gustavo Castorena MD Service: Internal Medicine Author Type: Physician Filed: 08/08/181456 Date of Service: 08/08/181452 Status: Signed Refractory Manager: Gustavo Castorena MD (Physician) [facility] Service: Hospitalist Progress Note Hospital Day: [...] LIST Principal Problem: GRACIELA (acute kidney injury) ([facility]) Active Problems: Ischemic cardiomyopathy Chronic systolic heart failure (HCC) Hyperkalemia Essential hypertension Type 2 diabetes mellitus with complication, with long-term current use of insulin ([facility]) ASSESSMENT / PLAN Heart failure [...] and management as well as Computerized Physician Health Unit Coordinator. Disposition: Home ? Code Status: Full Code Gustavo Castorena MD 08/08/2018 2:53 PM Shin Vale MD - 08/08/2018 11:26 AM PST Progress Notes by Shin Rivera MD at 08/08/18 1126 Author: Shin Rivera MD Service: Nephrology Author Type: Physician Filed: 08/10/18 1223 Date of Service: 08/08/18 1126 Status: Signed Refractory Manager: Shin Rivera MD (Physician) PCP : [facility] LOS: 2 days Maria Ines Martin [...] was completed later after rounds. Dictation software, Odyssey Thera, was used which may contain error for similar sounding words nabor jackman after review. Personal communication is requested for any clarification. Prognosis is guarded in view of multiple comorbid illnesses and acute on chronic renal fail ure including but not limited to potential need for TAFFY PULLER and . amLODIPine 7.5 mg Oral Daily [...] 0700 Date of Service: 08/08/1859 Status: Signed Refractory Manager: Little Infante RN (Registered Nurse) Pt had [...] 08/07/182005 Date of Service: 08/07/182005 Status: Signed Refractory Manager: Nimo Heredia RN (Registered Nurse) No significant [...] Management by Damaris Canchola RN at 08/07/18 5360 Author: Damaris Canchola RN Service: (none) Author Type: Registered Nurse Filed: 08/07/18 1202 Date of Service: 08/07/18 1156 Status: Signed Refractory Manager: Damaris Canchola RN (Registered Nurse) Tc to Kathrin([phone]), CM with [facility] re d/c plan, LMTCB Per pt, wants CM to call [facility] transportation program director re transport back [phone]. Per [place], for wknd medicaid transport call Kathe onver federico Transaction, Provider Unknown - 08/07/2018 11:47 AM PST Case Management by Damaris Canchola RN at 08/07/18 1147 Author: Damaris Canchola RN Service: (none) Author Type: Registered Nurse Filed: 08/07/18 1149 Date of Service: 08/07/18 1147 Status: Signed Refractory Manager: Damaris Canchola RN (Registered Nurse) 08/07/18 1100 [...] with spouse and child(disabled chi ld) in [place]. Pt states she is indep with all her adl's, but does use a cane if needed f or outdoors as she has vision deficits.no home o2, no anticoagulants, no HD. Plans to return home Patient's PCP is: [facility] Patient's insurance[facility] Coverage concerns: Medication coverage/concerns: Rx Bedside [...] 1058 Date of Service: 08/07/181049 Status: Signed Refractory Manager: Gustavo Castorena MD (Physician) [facility] Service: Hospitalist Progress Note Hospital Day: [...] and management as well as Computerized Physician Health Unit Coordinator. Disposition: Home ? Code Status: Full Code Gustavo Castorena MD 08/07/2018 10:50 AM Brynn Hanna MD - 8:47 AM PST Progress Notes by Brynn Crawford MD at 08/07/18 8021 Author: Brynn Crawford MD Service: Cardiology Author Type: Physician Filed: 08/07/18 0914 Date of Service: 08/07/18 0847 Status: Signed Refractory Manager: Brynn Crawford MD (Physician) [facility] Service: Cardiology/[facility] Progress Note RE: Maria Ines [...] Mild mitral regurgitation is present. Scores: 1. [id number] Score: 2. Thai Anginal Score: 3. NYHA Score: ASSESSMENT: 1. [...] her [facility] fraction than what it was reported previously at [facility]. Regardless with her history of chest [...] 08/07/18626 Date of Service: 08/07/18625 Status: Signed Refractory Manager: Agustina Cade RN (Registered Nurse) End of shift audit complete. AGUSTINA CADE RN onver federico Transaction, Provider Unknown - 08/06/2018 5:18 PM PST Nurse Progress Note by Jacquie Miranda RN at 08/06/181717 Author: Jacquie Miranda RN Service: (none) Author Type: Registered Nurse Filed: 08/06/181718 Date of Service: 08/06/181717 Status: Signed Refractory Manager: Jacquie Miranda RN (Registered Nurse) End of shift chart check completed Gustavo Lara MD - 08/06/2018 1:52 PM PSTFormatting of this note might be different from the or iginal. Progress Notes by Gustavo Castorena MD at 08/06/18 439 Author: Gustavo Castorena MD Service: Internal Medicine Author Type: Physician Filed: 08/06/18 1357 Date of Service: 08/06/18 597 Status: Signed Refractory Manager: Gustavo Castorena MD (Physician) [facility] Service: Hospitalist Progress Note Hospital Day: LOS: 0 days SUBJECTIVE Feels much better today HPI: Ms. 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 She presented from outpatient for scheduled cardiac cath with Dr. rCawford. She had routine labs drawn yesterday which [...] and management as well as Computerized Physician Health Unit Coordinator. Disposition: Home ? Code Status: Full Code Gustavo Castorena MD 08/06/2018 1:55 PM onversion Transactio n, Provider Unknown - 08/06/2018 12:04 PM PST Progress Notes by Anjali Kerr RD at 08/06/18 1204 Author: Anjali Kerr RD Service: (none) Author Type: Registered Dietitian Filed: 08/06/18 1207 Date of Service: 08/06/18 120 Status: Signed Refractory Manager: Anjali Kerr RD (Registered Dietitian) 08/06/18 8075 Subjective Timepoint Admit Pt c/o Pt triggered for dysphagia. Pt admitted for acute renal failure. 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 Pt went ov er her hx of [...] any concerns for dysphag ia consider ordering [employer]ER eval. Anthropometrics Weight change Pt's BMI is 34 and pt is 166% of IBW. Pt reports she has gained wt over the p ast 4 months after stopping meth. Biochemical data, medical tests, and procedures reviewed Biochemical data, medical tests, and procedures reviewed Labs reviewed. Recommendations Recommended energy needs Continue diet as ordered with modications per MER[employer] MARINER, if needed. Enco urage po intake as [...] 0936 Date of Service: 08/06/18850 Status: Signed Refractory Manager: Brynn Crawford MD (Physician) [facility] Service: Cardiology/[facility] Progress Note RE: Maria Ines [...] prolonged QRS Imaging Chest X-Ray: Scores: 1. YCW2XQ1-Xrls Score: 2. Thai Anginal Score: 3. NYHA Score: ASSESSMENT: 1. [...] 08/06/18517 Date of Service: 08/06/18517 Status: Signed Refractory Manager: Cheryl Patel RN (Registered Nurse) End of shift audit complete. onver federico Transaction, Provider Unknown - 08/05/2018 5:56 PM PST Nurse Progress Note by Ghada Crawley RN at 08/05/181755 Author: Ghada Crawley RN Service: (none) Author Type: Registered Nurse Filed: 08/05/181755 Date of Service: 08/05/18 1756 Status: Signed Refractory Manager: Ghada Crawley RN (Registered Nurse) End of shift review complete GHADA CRAWLEY RN Brynn Merrill MD - 08/05/2018 1:38 PM PSTFormatting of this note might be different from the orig inal. Progress Notes by Brynn Crawford MD at 08/05/18 6036 Author: Brynn Crawford MD Service: Cardiology Author Type: Physician Filed: 08/05/18 0254 Date of Service: 08/05/18 7996 Status: Signed Refractory Manager: Brnyn Crawford MD (Physician) Mrs. Martin presented for [...] was seen by Dr. Vic Gaitan in [facility] for evaluation. An echoca rdiogram was obtained [...] cant ST or T-wave abnormalities. Scores: 1. BSW1VX4-Iert Score: 4 2. Thai Anginal Score: 2 3. NYHA Score: 2-3 [...] 2018 | Visit | | [address] [facility] | | | | | | [address] | | | | | | [address] | | | | | | | [...] | | | Fingerstick | performed at [facility];[address] | | LAB | | | | [address];[place] | | | | | | [address] | | | | + + + [...] | | | Fingerstick | performed at [facility];[address] | | LAB | | | | [address];[place], [place] | | | | | | [address] | | | | + + + [...] | | | | | performed at [facility], [address] | | | | | | [address], | | | | | | [place] [address] | | | | + + + [...] | | | Fingerstick | performed at [facility];[address] | | LAB | | | | [address];[place], [place] | | | | | | [address] | | | | + + + [...] | | | Fingerstick | performed at [facility];[address] | | LAB | | | | [address];[place], [place] | | | | | | [address] | | | | + + + [...] | | | Fingerstick | performed at [facility];[address] | | LAB | | | | [address];[place], [place] | | | | | | [address] | | | | + + + [...] | | | Fingerstick | performed at [facility];[address] | | LAB | | | | [address];[place] | | | | | | [address] | | | | + + + [...] EXTERNAL | | | | performed at [facility], [address] | | LAB | | | | [address], | | | | | | [place] [address] | | | | + + + [...] | | | | | performed at [facility], [address] | | | | | | [facility], | | | | | | [place] [address] | | | | + + + [...] | | | Fingerstick | performed at [facility];[address] | | LAB | | | | [address];[place], [place] | | | | | | [address] | | | | + + + [...] | | | Fingerstick | performed at [facility];[address] | | LAB | | | [address];[place], [place] | | | | | | [address] | | | | + + + [...] | | | Fingerstick | performed at [facility];[address] | | LAB | | | | [address];[place] | | | | | | [address] | | | | + + + [...] EXTERNAL | | | | performed at [facility], [address] | | LAB | | | | [address], | | | | | | [place] [address] | | | | + + + [...] EXTERNAL | | | | performed at [facility], [address] | | LAB | | | | [address], | | | | | | [place] [address] | | | | + + + [...] | | | | | performed at [facility], [address] | | | | | | [facility], | | | | | | [place] [address] | | | | + + + [...] | | | Fingerstick | performed at [facility];[address] | | LAB | | | | [address];[place], [place] | | | | | | [address] | | | | + + + [...] | | | Fingerstick | performed at [facility];[address] | | LAB | | | | [address];[place] | | | | | | [address] | | | | + + + [...] radial artery and a | | | 6-Canadian sheath was placed. The JL-3.5 catheter was [...] right radial artery and a | | 6-Canadian sheath was placed. The JL-3.5 catheter was [...] | | | Fingerstick | performed at [facility];[address] | | LAB | | | | [address];[place] | | | | | | [address] | | | | + + + + + + + + | Specimen | + + | | + + + +---------+ + + | Performing | Address | City/State/Zipcode | Phone Number | | Organization | | | | + +---------+ + + | EXTERNAL LAB | | | | + +---------+ + + [place] (08/08/2018 12:12 PM PST) + + + + + + | Component | Value | Ref Range | Performed | Pathologist | | | | | At | Signature | + + + + + + | [facility] [place] | 96.5 (H)Comment: | mg/L | [...] + + + + + + | [place] | 1.50Comment: Reference | | EXTERNAL | | | a Free | range: 0.26 to | | LAB | | | [facility] | 1.65Testing performed at | | | | | Ratio | [facility], [address] | | | | | | [place] | | | | | | [address] | | | | + + + [...] | | Comp 4 | performed at [facility], [address] | | LAB | | | | [address], | | | | | | [place] [address] | | | | + + + [...] at | | | | | | [facility], [address] [facility] | | | | | | [place] | | | | | | [address] | | | | + + + [...] | | | | | [place] [address] | | | | + + + [...] | | | | | | at [facility], [address] | | | | | | [address], | | | | | | [place] [address] | | | | + + + [...] | | | | | performed at [facility], [address] | | | | | | [facility], | | | | | | [place] [address] | | | | + + + [...] | | | | | | [place] [address] | | | | + + + [...] | | | 3 | performed by [email or web address], | | | | | | [address], | | | | | | [facility] [address] | | | | + + + [...] | | | | | | [place] [address] | | | | + + + [...] | | Quant, CSF | performed at [facility], | | | | | | [address], [address], | | | | | | [place] [address] | | | | + + + [...] EXTERNAL | | | | performed at [facility], [address] | | LAB | | | | [address], | | | | | | [place] [address] | | | | + + + [...] EXTERNAL | | | | performed at [facility], [address] | | LAB | | | | [address], | | | | | | [place] [address] | | | | + + + [...] | | | | | [place] [address] | | | | + + + [...] | | | Fingerstick | performed at [facility];[address] | | LAB | | | | [address];[place], [place] | | | | | | [address] | | | | + + + [...] | | | Fingerstick | performed at [facility];[address] | | LAB | | | | [address];[place], [place] | | | | | | [address] | | | | + + + [...] EXTERNAL | | | | performed at [facility], [address] | | LAB | | | | [facility], | | | | | | [place] [address] | | | | + + + [...] EXTERNAL | | | | performed at [facility], [address] | | LAB | | | | [address], | | | | | | [place] [address] | | | | + + + [...] | | | | | performed at [facility], [address] | | | | | | [facility], | | | | | | [place] [address] | | | | + + + [...] | | | Fingerstick | performed at [facility];[address] | | LAB | | | | [address];[place] | | | | | | [address] | | | | + + + [...] | | | Fingerstick | performed at [facility];[address] | | LAB | | | | [address];[place], [place] | | | | | | [address] | | | | + + + [...] | | | | | performed at [facility] | | | | | | [facility];[place] | | | | | | [address] | | | | + + + [...] | | | Fingerstick | performed at [facility];[address] | | LAB | | | | [address];[place] | | | | | | [address] | | | | + + + [...] | | at Ratio | performed at [facility], [address] | | LAB | | | | [facility], | | | | | | [place] [address] | | | | + + + [...] | | | | | performed at [facility], [address] | | | | | | [facility], | | | | | | [place] [address] | | | | + + + [...] LAB | | | | performed at [facility], [address] | | | | | [address], | | | | | | [place] [address] | | | | + + + [...] LAB | | | | performed at [facility], [address] | | | | | [address], | | | | | | [place] [address] | | | | + + + [...] | | | Fingerstick | performed at [facility];[address] | | LAB | | | | [address];[place], [place] | | | | | | [address] | | | | + + + [...] EXTERNAL | | | | performed at [facility], [address] | | LAB | | | | [address], | | | | | | [place] [address] | | | | + + + [...] EXTERNAL | | | | performed at [facility], [address] | | LAB | | | | [address], | | | | | | [place] [address] | | | | + + + [...] | | | | | performed at [facility], [address] | | | | | | [facility], | | | | | | [place] [address] | | | | + + + [...] | | | Fingerstick | performed at [facility];[address] | | LAB | | | | [address];[place], [place] | | | | | | [address] | | | | + + + [...] | | | Fingerstick | performed at [facility];[address] | | LAB | | | | [address];[place] | | | | | | [address] | | | | + + + [...] | A Brock: 0.60 m/s TV Dec Upton: 2.33 m/s2 TV Dec Time: | | | 240.52 ms TV E Brock: 0.56 m/s TV E/A Ratio: 0.92 | | | Irrigation Pump Installer: GONZALO Authenticated by: Brynn Crawford MD Report Date/Time: | | | -- [id number] | | + + + + + [...] mlLAESV Index (A-L): 40.23 ml/m2LAAs A2C: 24.44 [id number] A-L | | A2C: 74.48 mlLALs A2C: 6.81 cmLAAs A4C: 21.96 [id number] A-L A4C: 68.67 mlLALs | | A4C: 5.96 cmRAAd: 13.73 [id number] A-L: 33.61 mlRAEDV MOD: 31.44 mlRALd: 4.76 | | cmEPSS: 2.39 cmAV maxP.50 mmHgAV meanP.57 mmHgAV Vmax: 1.76 m/John | | Vmean: 1.20 m/John VTI: 39.54 cmAVA Vmax: 2.19 cm2AVA (VTI): 2.37 sx9LRXE Vmax: | | 0.00 cm2/m2AVAI (VTI): 0.00 [...] 25.31 cmTV A Brock: 0.60 m/sTV Dec Upton: 2.33 m/s2TV | | Dec Time: 240.52 msTV E Brock: 0.56 m/sTV E/A Ratio: 0.92 Irrigation Pump Installer: | | GDAuthenticated by: Brynn Crawford MDReport Date/Time: [id number] | | IMPRESSION: 1. Overall left ventricular [...] A Brock: 0.60 m/s | |TV Dec Upton: 2.33 m/s2 | |TV Dec Time: 240.52 ms | |TV E Brock: 0.56 m/s | |TV E/A Ratio: 0.92 | | | |Irrigation Pump Installer: GD | |Authenticated by: Brynn Crawford MD | |Report Date/Time: -- [id number] | | | |IMPRESSION: | |1. Overall [...] LAB | | | | performed at [facility], [address] | | | | | | [address], | | | | | | [place] [address] | | | | + + + [...] - 1.030 | EXTERNAL | | | [place] | | | LAB | | + [...] | | | Urine | performed at [facility], [address] | | LAB | | | | [address], | | | | | | [place] [address] | | | | + + + [...] EXTERNAL | | | | performed at [facility];888 | mmol/L | LAB | | | | [address];[place], [place] | | | | | | [address] | | | | + + + [...] | | | Fingerstick | performed at [facility];[address] | | LAB | | | | [address];[place], [place] | | | | | | [address] | | | | + + + [...] EXTERNAL | | | | performed at [facility], [address] | | LAB | | | | [address], | | | | | | [place] [address] | | | | + + + [...] | | | | | [place] [address] | | | | + + + [...] EXTERNAL | | | | performed at [facility], [address] | | LAB | | | | [address], | | | | | | [place] [address] | | | | + + + [...] | EXTERNAL | | | A1c | Citizen Of [place] Diabetes | | LAB | | | [...] | | | | | performed at [facility], [address] | | | | | | [facility], | | | | | | [place] [address] | | | | + + + [...] | | | | | performed at [facility];[address] | | | | | | [address] [facility];[place], [place] | | | | | | [address] | | | | + + + [...] | | | Fingerstick | performed at [facility];[address] | | LAB | | | | [address];[place], [place] | | | | | | [address] | | | | + + + [...] EXTERNAL | | | | performed at [facility];888 | mmol/L | LAB | | | | [address];[place] | | | | | | [address] | | | | + + + [...] | | | Fingerstick | performed at [facility];[address] | | LAB | | | | [address];[place] | | | | | | [address] | | | | + + + [...] LAB | | | | performed at [facility];[address] | | | | | | [address];[place], [place] | | | | | | [address] | | | | + + + [...] | | | Basophils | performed at [facility];[address] | K/uL | LAB | | | | [address];[place], [place] | | | | | | [address] | | | | + + + [...] | | | | | performed at [facility] | | | | | | [facility];[place], [place] | | | | | | [address] | | | | + + + [...] Diagnosis | + + | 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
--- OUTSIDE RECORDS SUMMARY | ~2019-06-03 | XMS | Encounter Summary ---
Demographics + + + | Address | [address] | | | [place] [address] | + + + | Home Phone | | + + + | Preferred Language | Unknown | + + + | Marital Status | Unknown | + + + | Gnosticism Affiliation | Unknown | + + + | Race | Unknown | + + + | Ethnic Group | Unknown | + + + Author + + + | Author | [facility] (Historical as of | | | 03-07-19) | + + + | Organization | [facility] (Historical as of | | | 03-07-19) [...] Team Providers + +------+ + | Care Sawyer Cork Slabs Name | Role | Phone | + [...] [address] | | | | | | [place] [address] | | | | | | [phone] | | | +--------+ + + + [...]
--- OUTSIDE RECORDS SUMMARY | ~2019-06-03 | XMS | Encounter Summary ---
Demographics + + + | Address | [address] | | | [place] [address] | + + + | Home Phone [...] Team Providers + +------+ + | Care Baggage Porter Head Name | Role | Phone | + +------+ + PCP | Unavailable | + +------+ + Encounter Details +--------+ + + + + | Date | Type | Department | Care Team | Description | +--------+ + + + + | 10/14/ | Hospital | [facility] | Cal Godinez, | | | 2000 | Encounter | MED CTR GENERIC OP | MD [address] [facility] | | | | | CONV DEPT [address] | [place], [place] | | | | | [place], | [address] | | | | | [place] [address] | | | | | | [phone] | | | +--------+ + + + [...] 2019 | Visit | | [address] [facility] | | | | | | [address] [place] | | | | | | [address] | | | | | | | | +--------+---------+ + + + documented as of this encounter Visit Diagnoses Not on filedocumented in this encounter"
--- OUTSIDE RECORDS SUMMARY | ~2019-06-03 | XMS | Encounter Summary ---
Demographics + + + | Address | [address] | | | [place] [address] | + + + | Home Phone [...] Team Providers + +------+ + | Care Warehouse Administrator Name | Role | Phone | + +------+ + | Bernadette Armendariz PA-C | PCP | | + +------+ + Encounter Details +--------+ + + + + | Date | Type | Department | Care Team | Description | +--------+ + + + + | 03/10/ | Orders Only | [facility] | James Pearce MD | | | 2019 | | NEPHROLOGY [place] | [address] [place] | | | | | [address] | [address] [facility] [place] | | | | | [facility] [address] | [address] | | | | | [place] | | | | | | [address] | | | | | | [phone] | | | +--------+ + + + [...] [place] | | | | | | [address] | | | | | | | | +--------+---------+ + + + documented as of this encounter Visit Diagnoses Not on filedocumented in this encounter"
--- OUTSIDE RECORDS SUMMARY | ~2019-06-03 | XMS | Encounter Summary ---
Demographics + + + | Address | [address] | | | [place] [address] | + + + | Home Phone [...] Team Providers + +------+ + | Care Topstitcher Zigzag Name | Role | Phone | + +------+ + | Bernadette Armendariz PA-C | PCP | | + +------+ + Encounter Details +--------+ + + + + | Date | Type | Department | Care Team | Description | +--------+ + + + + | 03/16/ | Orders Only | [facility] | James Pearce MD | Essential (primary) | | 2019 | | NEPRHOLOGY [place] | [address] [place] | hypertension; Type 2 | | | | [address] | [address] [place], [place] | diabetes mellitus | | | | [address] [place], [place] | [address] | with complications | | | | [address] | | (HCC); Acute kidney | | | | [phone] | | failure (HCC) | +--------+ + [...] 2019 | Visit | | [address] [facility] | | | | | | 160 [place], [place] | | | | | | [address] | | | | | | | [...]
--- OUTSIDE RECORDS SUMMARY | ~2019-06-03 | XMS | Encounter Summary ---
Demographics + + + | Address | [address] | | | [place] [address] | + + + | Home Phone [...] Providers + +------+ + | Care Machine Setter Name | Role | Phone | + +------+ + PCP | Unavailable | + +------+ + Encounter Details +--------+ + + + + | Date | Type | Department | Care Team | Description | +--------+ + + + + | 10/23/ | Hospital | [facility] | Cal Godinez, | | | 2000 | Encounter | MED CTR XRAY [address] | MD [address] [facility] | | | | | [place] | [place], [place] | | | | | [place] [address] | [address] | | | | | [phone] | | | +--------+ + + + [...] 2019 | Visit | | [address] [facility] | | | | | | [address] [place] | | | | | | [address] | | | | | | | | +--------+---------+ + + + documented as of this encounter Visit Diagnoses Not on filedocumented in this encounter"
--- OUTSIDE RECORDS SUMMARY | ~2019-06-03 | XMS | Encounter Summary ---
Demographics + + + | Address | [address] | | | [place] [address] | + + + | Home Phone | | + + + | Preferred Language | Unknown | + + + | Marital Status | | + + + | Taoism Affiliation | 1041 | + + + | Race | Unknown | + + + | Ethnic Group | Unknown | + + + Author + + + | Author | [facility] | | | and [place] | + + + | Organization | [facility] | | | and [...] Team Providers + +------+ + | Care Loft Worker Pile Driving Name | Role | Phone | + +------+ + | Bernadette Armendariz PA-C | PCP | | + +------+ + Encounter Details +--------+ + + + + | Date | Type | Department | Care Team | Description | +--------+ + + + + | 12/02/ | Hospital | [facility] | [facility], | Right sided weakness | | 2019 - | Encounter | [facility] | MD Edie Michaels | | | | | CLINICAL DECISION | [address] | | | 12/04/ | | [address] | [place] [address] | | | 2018 | | [place], [place] | [phone] | | | | | [address] | | | | | | [phone] | | | +--------+ + + + [...] different from nilda king. Discharge Summaries by Toeny Lowry MD at 12/04/18804 Author: Toney Lowry MD Service: (none) Author Type: Physician Filed: 12/04/18808 Date of Service: 12/04/18804 Status: Signed Six Horse Hitch Driver: Toney Lowry MD (Physician) [facility] Service: Hospitalist Physician Discharge Summary Patient ID: Maria Ines Martin [id number] y.o. 1955 Admit date: 12/02/2018 Discharge [...] disease and fol low-up outpatient with her sewer system supervisor and ultrasonic cleaner. All questions were answered. Condition at discharge: stable as dictated above Primary discharge diagnosis: Right-sided weakness and uncontrolled blood hypertension Disposition: *Home Follow up: [facility] [address] [place] [address] Dictation and marine electronics technician or software, Lawdingo, used which may contain error for similar [...] 08/05/2018 MIC (acute kidney injury) ([facility]) 08/08/2018 Asthma CAD (coronary artery disease) [...] diffusion-weighted imaging was obtained. MRA Brain: 3D wcpc-uf-nmcrci MRA with MIP ref ormations. MRA neck: 2D fjov-xo-cfirfr MRA with MIP reformations. FINDINGS: MRI Brain: [...] diffusion-weighted imaging was obtained. MRA Brain: 3D hkay-ja-ttroqg MRA with MIP ref ormations. MRA neck: 2D wtfk-be-jwpdkh MRA with MIP reformations. FINDINGS: MRI Brain: [...] 88.35 ml D-E Excursion: 1.83 cm E-F [place]: 0.07 m/s TAPSE: 2.80 cm HR: 74.10 [...] TV A Brock: 0.77 m/s TV Dec [place]: 2.83 m/s2 TV Dec Time: 277.60 ms TV E Brock: 0.78 m/s TV E/A Ratio: 1.01 Ortho Tech: Authenticated by: JASON BUCIO MD Report Date/Time: [...] 12/04/181301 Date of Service: 12/04/181301 Status: Signed Six Horse Hitch Driver: Stephanie Calzada RN (Registered Nurse) Discharge instructions [...] 12/04/18539 Date of Service: 12/04/18539 Status: Signed Six Horse Hitch Driver: Nichelle Renee RN (Registered Nurse) Chart check complete onver federico Transaction, Provider Unknown - 12/04/2018 1:09 AM PDT Nurse Progress Note by Nichelle Renee RN at 12/04/18108 Author: Nichelle Renee RN Service: (none) Author Type: Registered Nurse Filed: 12/04/18109 Date of Service: 12/04/18108 Status: Signed Six Horse Hitch Driver: Nichelle Renee RN (Registered Nurse) Pt here [...] 1840 Date of Service: 12/03/188 Status: Signed Six Horse Hitch Driver: Francy Orantes RN (Registered Nurse) Chart check complete. Francy Orantes 12/03/18 6:39 PM onver federico Transaction, Provider Unknown - 12/03/2018 2:30 PM PDT Nurse Progress Note by Francy Orantes RN at 12/03/18 1430 Author: Francy Orantes RN Service: (none) Author Type: Registered Nurse Filed: 12/03/18 1431 Date of Service: 12/03/18 1430 Status: Signed Six Horse Hitch Driver: Francy Orantes RN (Registered Nurse) 135/65, holding additional norvac 5mg at this time. onver federico Transaction, Provider Unknown - 12/03/2018 1:17 PM PDT Case Management by Lisa Burns RN at 12/03/18 1317 Author: Lisa Burns RN Service: (none) Author Type: Registered Nurse Filed: 12/03/18 1328 Date of Service: 12/03/18 1317 Status: Addendum Six Horse Hitch Driver: Lisa Burns RN (Registered Nurse) Related Notes: [...] Martin Relationship to Patient spouse Phone number [phone] Mental Status Oriented Prior functional status independent Power of General I Farmworker No Anticipated Discharge Plan Post Acute Care Needs None at this time Plan communicated to patient/family Yes Resources Financial concerns No Transportation issues No Patient/Family concerns No Prescription Plan Yes Name of Pharmacy [facility] Previous home health equipment Yes ( walker) Vascular access device No Ostomy/Drains/Appliances No Anticipated Disposition Facility Type Home Met with patient and discussed discharge planning, Pt is a 63 y.o., female with vertigo and rt side weakness. Pt lives on the [facility] w/spouse and several other famil y members in a small house. Pt states, that she lost her main house of 28 yrs and was "disp laced" on the [facility]. She and her have been living with her sister and several other people. She claims she sleeps on the the floor and there is not much mobility to mov e around-she can not accommodate a walker in the current house. Pt claims, the [facility] is working on a new place but she did not want to talk about any of the plans for housing or why she was displaced from the original home. Patient's PCP is: [facility] Patient's insurance: Medicaid//[facility] Coverage concerns: none Medication coverage/concerns: none [...] Note by Francy Orantes RN at 12/03/18 7936 Author: Francy Orantes RN Service: (none) Author Type: Registered Nurse Filed: 12/03/18 9206 Date of Service: 12/03/181142 Status: Signed Six Horse Hitch Driver: Francy Orantes RN (Registered Nurse) Telephone order [...] 12/03/18844 Date of Service: 12/03/18844 Status: Signed Six Horse Hitch Driver: Francy Orantes RN (Registered Nurse) New order per Dr. Lowry to administer scheduled BP meds at this time. Toney Cornejo MD - 12/03/2018 8:31 AM PDTFormatting of this note might be different from the origi nal. Progress Notes by Toney Lowry MD at 12/03/18830 Author: Toney Lowry MD Service: (none) Author Type: Physician Filed: 12/03/18843 Date of Service: 12/03/18830 Status: Signed Six Horse Hitch Driver: Toney Lowry MD (Physician) [facility] Service: Hospitalist Progress Note Hospital [...] above Code Status: Full Code Dictation and marine electronics technician or software, Lawdingo, used which may contain error for similar [...] long-term current use of insulin ([facility]) Non-ischemic cardiomyopathy (HCC) CKD (chronic kidney disease), stage IV (HCC) Anemia of chronic renal failure, stage 4 (severe) ([facility]) Secondary hyperparathyroidism (HCC) Visual changes [place] [facility] Past Medical History Diagnosis Date Acute renal failure ([facility]) 08/05/2018 MIC (acute kidney injury) ([facility]) 08/08/2018 Asthma CAD (coronary artery disease) CHF (congestive heart failure) ([facility]) CVA (cerebral vascular accident) ([facility]) HTN (hypertension) Hyperlipidemia Myocardial infarct (HCC) Type 2 diabetes mellitus ([facility]) HOME MEDICATIONS Prior to Admission medications [...] 0743 Date of Service: 12/03/18739 Status: Signed Six Horse Hitch Driver: Francy Orantes RN (Registered Nurse) Per Dr. [...] 0745 Date of Service: 12/03/18599 Status: Signed Six Horse Hitch Driver: Jael Ford RN (Registered Nurse) Chart check audit complete. onver federico Transaction, Provider Unknown - 12/03/2018 1:23 AM PDT Pharmacy Note by Tia Hodge RPH at 12/03/18122 Author: Tia Hodge RPH Service: Pharmacy Author Type: Pharmacist Filed: 12/03/18122 Date of Service: 12/03/18122 Status: Signed Six Horse Hitch Driver: Tia Hodge RPH (Pharmacist) Clinical Pharmacy Note: Renal Monitoring Height: 160 cm Weight: 88.5 kg Serum Creatinine: 2.07 mg/dL (12/02/18 at [facility]) Estimated creatinine clearance - Cockcroft-Gault [...] 2018 | Visit | | [address] [facility] | | | | | | [address] [place] | | | | | | [address] | | | | | | | [...] | | | Fingerstick | performed at [facility];[address] | | LAB | | | | [address];[place] | | | | | | [address] | | | | + + + [...] | | | Fingerstick | performed at [facility];[address] | | LAB | | | | [address];[place] | | | | | | [address] | | | | + + + [...] | | | Fingerstick | performed at [facility];[address] | | LAB | | | | [address];[place] | | | | | | [address] | | | | + + + [...] | | | Fingerstick | performed at [facility];[address] | | LAB | | | | [address];[place], [place] | | | | | | [address] | | | | + + + [...] | | | Fingerstick | performed at [facility];[address] | | LAB | | | | [address];[place] | | | | | | [address] | | | | + + + [...] | | D-E Excursion: 1.83 cm E-F [place]: 0.07 m/s TAPSE: 2.80 cm | | [...] | | | 0.77 m/s TV Dec [place]: 2.83 m/s2 TV Dec Time: 277.60 ms TV | | | E Brock: 0.78 m/s TV E/A Ratio: 1.01 Ortho Tech: | | | Authenticated by: JASON BUCIO [...] (A-L): 36.58 ml/m2LAAs A2C: 22.52 | | [id number] A-L A2C: 77.43 mlLALs A2C: 5.56 cmLAAs A4C: 20.32 [id number] A-L A4C: | | 62.81 mlLALs A4C: 5.70 cmRAAd: 13.50 [id number] A-L: 27.25 mlRAEDV MOD: 27.63 | | mlRALd: 5.67 cmAo Diam: 3.55 cmAV Cusp: 2.03 cmLA Diam: 4.21 cmLA/Ao: 1.18%FS: | | 40.81 %EDV(Teich): 123.91 mlEF(Teich): 71.30 %ESV(Teich): 35.55 mlIVSd: 1.73 | | cmIVSs: 2.32 cmLVIDd: 5.10 cmLVIDs: 3.01 cmLVPWd: 1.42 cmLVPWs: 1.66 | | cmSV(Teich): 88.35 mlD-E Excursion: 1.83 cmE-F [place]: 0.07 m/sTAPSE: 2.80 cmHR: | | 74.10 BPMAV maxP.59 mmHgAV meanP.44 mmHgAV Vmax: 1.46 m/John Vmean: | | 1.01 m/John VTI: 32.01 cmAVA Vmax: 2.68 cm2AVA (VTI): 2.67 [id number] Vmax: 0.00 | | cm2/m2AVAI (VTI): 0.00 cm2/m2LVCI Dopp: 3.23 l/[id number] Dopp: 6.18 l/minHR: | | 72.25 BPMLVOT [...] | m/sTV A Brock: 0.77 m/sTV Dec [place]: 2.83 m/s2TV Dec Time: 277.60 msTV E Brock: 0.78 | | m/sTV E/A Ratio: 1.01 Ortho Tech: ASAuthenticated by: [facility] | | Date/Time: 12-03-2018 14:17:6 IMPRESSION: [...] | |D-E Excursion: 1.83 cm | |E-F [place]: 0.07 m/s | |TAPSE: 2.80 cm | [...] A Brock: 0.77 m/s | |TV Dec [place]: 2.83 m/s2 | |TV Dec Time: 277.60 ms | |TV E Brock: 0.78 m/s | |TV E/A Ratio: 1.01 | | | |Ortho Tech: | |Authenticated by: JASON BUCIO MD | [...] | | | Basophils | performed at [facility];[address] | K/uL | LAB | | | | [address];[place] | | | | | | [address] | | | | + + + [...] EXTERNAL | | | | performed at [facility] | | LAB | | | | [address];[place] | | | | | | [address] | | | | + + + [...] | | | | | performed at [facility], [address] | | | | | | [address], | | | | | | [place] [address] | | | | + + + [...] | | | Direct | performed at [facility];[address] | | LAB | | | [address];[place], [place] | | | | | | [address] | | | | + + + [...] | | | Cholesterol | performed at [facility], [address] | | LAB | | | , | [address], | | | | | Calculated, | [place] [address] | | | | | External | [...] | | | | | performed at [facility];[address] | | | | | | [facility];[place], [place] | | | | | | [address] | | | | + + + [...] | | | Fingerstick | performed at [facility];[address] | | LAB | | | | [address];[place], [place] | | | | | | [address] | | | | + + + [...] | | | Fingerstick | performed at [facility];[address] | | LAB | | | | [address];[place], [place] | | | | | | [address] | | | | + + + [...] obtained. | | | MRA Brain: 3D focv-df-uvlcuh MRA with MIP reformations. MRA neck: 2D | | | ncqz-uv-fohvlr MRA with MIP reformations. FINDINGS: MRI Brain: [...] imaging | | was obtained.MRA Brain: 3D hdav-bt-ogvjqa MRA with MIP reformations.MRA neck: 2D | | ahzj-lj-hwvjrp MRA with MIP reformations.FINDINGS:MRI Brain:Brain: No restricted [...] obtained. | | | MRA Brain: 3D dejp-su-lsfgnm MRA with MIP reformations. MRA neck: 2D | | | ette-iu-pgpngs MRA with MIP reformations. FINDINGS: MRI Brain: [...] imaging | | was obtained.MRA Brain: 3D yvxo-ui-hyogyj MRA with MIP reformations.MRA neck: 2D | | ttob-ec-vluull MRA with MIP reformations.FINDINGS:MRI Brain:Brain: No restricted [...] LAB | | | | performed at [facility], [address] | | | | | | [address], | | | | | | [place] [address] | | | | + + + [...] - 1.030 | EXTERNAL | | | [place] | | | LAB | | + [...] | | | Urine | performed at [facility], [address] | | LAB | | | | [address], | | | | | | [place] [address] | | | | + + + [...]
--- OUTSIDE RECORDS SUMMARY | ~2019-06-03 | XMS | Encounter Summary ---
Demographics + + + | Address | [address] | | | [place] [address] | + + + | Home Phone [...] Team Providers + +------+ + | Care Cloud Systems Administrator Name | Role | Phone | [...] | | | | | | [place] [address] | | | | | | [phone] | | | +--------+ + + + [...] Visit | | [address] [facility] | | | | | | [address] [place], [place] | | | | | | [address] | | | | | | | | +--------+---------+ + + + documented as of this encounter Visit Diagnoses Not on filedocumented in this encounter"
--- OUTSIDE RECORDS SUMMARY | ~2019-06-03 | XMS | Encounter Summary ---
Demographics + + + | Address | [address] | | | [place] [address] | + + + | Home Phone [...] Providers + +------+ + | Care Customer Success Associate Name | Role | Phone | + +------+ + | Bernadette Armendariz PA-C | PCP | | + +------+ + Encounter Details +--------+ + + + + | Date | Type | Department | Care Team | Description | +--------+ + + + + | 11/12/ | Orders Only | [facility] | James Pearce MD | | | 2019 | | NEPHROLOGY [place] | [address] [place] | | | | | [address] [place] | [address] [place], [place] | | | | | [address] [facility] [place] | [address] | | | | | [address] | | | | | | [phone] | | | +--------+ + + + [...] 2019 | Visit | | [address] [facility] | | | | | | [address] [facility] [place] | | | | | | [address] | | | | | | | [...] | | | LAB | | | [place] | | | | | + +---------+ [...]
--- OUTSIDE RECORDS SUMMARY | ~2019-06-03 | XMS | Encounter Summary ---
Demographics + + + | Address | [address] | | | [place] [address] | + + + | Home Phone [...] Team Providers + +------+ + | Care Title Curator Name | Role | Phone | + +------+ + | Bernadette Armendariz PA-C | PCP | | + +------+ + Encounter Details +--------+ + + + + | Date | Type | Department | Care Team | Description | +--------+ + + + + | 12/02/ | Hospital | [facility] | [facility], | Right sided weakness | | 2019 - | Encounter | [facility] | MD Edie Michaels | | | | | CLINICAL DECISION | [address] | | | 12/04/ | | [address] | [place] [address] | | | 2018 | | [place], [place] | [phone] | | | | | [address] | | | | | | [phone] | | | +--------+ + + + [...] 12/04/18808 Date of Service: 12/04/18804 Status: Signed Paper Cutter Operator: Toney Lowry MD (Physician) [facility] Service: Hospitalist Physician Discharge Summary Patient ID: Maria Ines Martin [id number] 63 y.o. 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 All questions were answered. Condition at discharge: stable as dictated above Primary discharge diagnosis: Right-sided weakness and uncontrolled blood hypertension Disposition: *Home Follow up: [facility] [address] [place] [address] Dictation and health information systems technician or software, [employer], used which may contain error for similar [...] failure (HCC) 08/05/2018 MIC (acute kidney injury) ([facility]) 08/08/2018 Asthma CAD (coronary artery [...] diffusion-weighted imaging was obtained. MRA Brain: 3D nywu-sl-dlluns MRA with MIP ref ormations. MRA neck: 2D ciiz-oi-ziujfb MRA with MIP reformations. FINDINGS: MRI Brain: [...] diffusion-weighted imaging was obtained. MRA Brain: 3D klyg-ez-pqivlq MRA with MIP ref ormations. MRA neck: 2D lwdb-ur-ddjdbc MRA with MIP reformations. FINDINGS: MRI Brain: [...] 88.35 ml D-E Excursion: 1.83 cm E-F Yates: 0.07 m/s TAPSE: 2.80 cm HR: 74.10 [...] TV A Brock: 0.77 m/s TV Dec Yates: 2.83 m/s2 TV Dec Time: 277.60 ms TV E Brock: 0.78 m/s TV E/A Ratio: 1.01 Electric Wheelchair Repairer: Authenticated by: JASON BUCIO MD Report [...] 12/04/181301 Date of Service: 12/04/181301 Status: Signed Paper Cutter Operator: Stephanie Calzada RN (Registered Nurse) Discharge instructions [...] 12/04/18539 Date of Service: 12/04/18539 Status: Signed Paper Cutter Operator: Nichelle Renee RN (Registered Nurse) Chart check complete onver federico Transaction, Provider Unknown - 12/04/2018 1:09 AM PDT Nurse Progress Note by Nichelle Renee RN at 12/04/18108 Author: Nichelle Renee RN Service: (none) Author Type: Registered Nurse Filed: 12/04/18109 Date of Service: 12/04/18108 Status: Signed Paper Cutter Operator: Nichelle Renee RN (Registered Nurse) Pt here [...] 1840 Date of Service: 12/03/188 Status: Signed Paper Cutter Operator: Francy Orantes RN (Registered Nurse) Chart check complete. Francy Orantes 12/03/18 6:39 PM onver federico Transaction, Provider Unknown - 12/03/2018 2:30 PM PDT Nurse Progress Note by Francy Orantes RN at 12/03/18 1430 Author: Francy Orantes RN Service: (none) Author Type: Registered Nurse Filed: 12/03/18 1431 Date of Service: 12/03/18 1430 Status: Signed Paper Cutter Operator: Francy Orantes RN (Registered Nurse) 135/65, holding additional norvac 5mg at this time. onver federico Transaction, Provider Unknown - 12/03/2018 1:17 PM PDT Case Management by Lisa Burns RN at 12/03/18 1317 Author: Lisa Burns RN Service: (none) Author Type: Registered Nurse Filed: 12/03/18 1328 Date of Service: 12/03/18 1317 Status: Addendum Paper Cutter Operator: Lisa Burns RN (Registered Nurse) Related Notes: [...] Martin Relationship to Patient spouse Phone number [phone] Mental Status Oriented Prior functional status independent Power of Contracting Engineer No Anticipated Discharge Plan Post Acute Care Needs None at this time Plan communicated to patient/family Yes Resources Financial concerns No Transportation issues No Patient/Family concerns No Prescription Plan Yes Name of Pharmacy [facility] Previous home health equipment Yes ( walker) Vascular access device No Ostomy/Drains/Appliances No Anticipated Disposition Facility Type Home Met with patient and discussed discharge planning, Pt is a 63 y.o., female with vertigo and rt side weakness. Pt lives on the [facility] w/spouse and several other famil y members in a small house. Pt states, that she lost her main house of 28 yrs and was "disp laced" on the [facility]. She and her have been living with her sister and several other people. She claims she sleeps on the the floor and there is not much mobility to mov e around-she can not accommodate a walker in the current house. Pt claims, the [facility] is working on a new place but she did not want to talk about any of the plans for housing or why she was displaced from the original home. Patient's PCP is: [facility] Patient's insurance: Medicaid//[facility] Coverage concerns: none Medication coverage/concerns: none [...] Note by Francy Orantes RN at 12/03/18 3191 Author: Francy Orantes RN Service: (none) Author Type: Registered Nurse Filed: 12/03/18 6429 Date of Service: 12/03/181142 Status: Signed Paper Cutter Operator: Francy Orantes RN (Registered Nurse) Telephone order [...] 12/03/18844 Date of Service: 12/03/18844 Status: Signed Paper Cutter Operator: Francy Orantes RN (Registered Nurse) New order per Dr. Lowry to administer scheduled BP meds at this time. Toney Cornejo MD - 12/03/2018 8:31 AM PDTFormatting of this note might be different from the origi nal. Progress Notes by Toney Lowry MD at 12/03/18830 Author: Toney Lowry MD Service: (none) Author Type: Physician Filed: 12/03/18843 Date of Service: 12/03/18830 Status: Signed Paper Cutter Operator: Toney Lowry MD (Physician) [facility] Service: Hospitalist Progress Note Hospital [...] above Code Status: Full Code Dictation and health information systems technician or software, [employer], used which may contain error for similar [...] nephropathy, with long-term current use of insulin ([facility]) Non-ischemic cardiomyopathy (HCC) CKD (chronic kidney disease), stage IV (HCC) Anemia of chronic renal failure, stage 4 (severe) ([facility]) Secondary hyperparathyroidism (HCC) Visual changes [place] [facility] Past Medical History Diagnosis Date Acute renal failure ([facility]) 08/05/2018 MIC (acute kidney injury) ([facility]) 08/08/2018 Asthma CAD (coronary artery disease) CHF (congestive heart failure) ([facility]) CVA (cerebral vascular accident) ([facility]) HTN (hypertension) Hyperlipidemia Myocardial infarct (HCC) Type 2 diabetes mellitus ([facility]) HOME MEDICATIONS Prior to Admission [...] 0743 Date of Service: 12/03/18739 Status: Signed Paper Cutter Operator: Francy Orantes RN (Registered Nurse) Per Dr. [...] 0745 Date of Service: 12/03/18599 Status: Signed Paper Cutter Operator: Jael Ford RN (Registered Nurse) Chart check audit complete. onver federico Transaction, Provider Unknown - 12/03/2018 1:23 AM PDT Pharmacy Note by Tia Hodge RPH at 12/03/18122 Author: Tia Hodge RPH Service: Pharmacy Author Type: Pharmacist Filed: 12/03/18122 Date of Service: 12/03/18122 Status: Signed Paper Cutter Operator: Tia Hodge RPH (Pharmacist) Clinical Pharmacy Note: Renal Monitoring Height: 160 cm Weight: 88.5 kg Serum Creatinine: 2.07 mg/dL (12/02/18 at [facility]) Estimated creatinine clearance - Cockcroft-Gault CrCl: [...] [place] | | | | | | [address] | | | | | | | [...] | | Fingerstick | performed at [facility];[address] | | LAB | | | | [address];[place] | | | | | | [address] | | | | + + + [...] | | Fingerstick | performed at [facility];[address] | | LAB | | | | [address];[place] | | | | | | [address] | | | | + + + [...] | | Fingerstick | performed at [facility];[address] | | LAB | | | | [address];[place] | | | | | | [address] | | | | + + + [...] | | Fingerstick | performed at [facility];[address] | | LAB | | | | [address];[place], [place] | | | | | | [address] | | | | + + + [...] | | Fingerstick | performed at [facility];[address] | | LAB | | | | [address];[place] | | | | | | [address] | | | | + + + [...] | | D-E Excursion: 1.83 cm E-F Yates: 0.07 m/s TAPSE: 2.80 cm | | [...] | | | 0.77 m/s TV Dec Yates: 2.83 m/s2 TV Dec Time: 277.60 ms TV | | | E Brock: 0.78 m/s TV E/A Ratio: 1.01 Electric Wheelchair Repairer: | | | Authenticated by: JASON [...] (A-L): 36.58 ml/m2LAAs A2C: 22.52 | | [id number] A-L A2C: 77.43 mlLALs A2C: 5.56 cmLAAs A4C: 20.32 [id number] A-L A4C: | | 62.81 mlLALs A4C: 5.70 cmRAAd: 13.50 sx8CHLNX A-L: 27.25 mlRAEDV MOD: 27.63 | | mlRALd: 5.67 cmAo Diam: 3.55 cmAV Cusp: 2.03 cmLA Diam: 4.21 cmLA/Ao: 1.18%FS: | | 40.81 %EDV(Teich): 123.91 mlEF(Teich): 71.30 %ESV(Teich): 35.55 mlIVSd: 1.73 | | cmIVSs: 2.32 cmLVIDd: 5.10 cmLVIDs: 3.01 cmLVPWd: 1.42 cmLVPWs: 1.66 | | cmSV(Teich): 88.35 mlD-E Excursion: 1.83 cmE-F Yates: 0.07 m/sTAPSE: 2.80 cmHR: | | 74.10 BPMAV maxP.59 mmHgAV meanP.44 mmHgAV Vmax: 1.46 m/John Vmean: | | 1.01 m/John VTI: 32.01 cmAVA Vmax: 2.68 cm2AVA (VTI): 2.67 ux9EVJO Vmax: 0.00 | | cm2/m2AVAI (VTI): 0.00 cm2/m2LVCI Dopp: 3.23 l/wkss9JLZA Dopp: 6.18 l/minHR: | | 72.25 BPMLVOT [...] | m/sTV A Brock: 0.77 m/sTV Dec Yates: 2.83 m/s2TV Dec Time: 277.60 msTV E Brock: 0.78 | | m/sTV E/A Ratio: 1.01 Electric Wheelchair Repairer: ASAuthenticated by: [facility] | | Date/Time: 12-03-2018 14:17:6 IMPRESSION: [...] | |D-E Excursion: 1.83 cm | |E-F Yates: 0.07 m/s | |TAPSE: 2.80 cm | [...] A Brock: 0.77 m/s | |TV Dec Yates: 2.83 m/s2 | |TV Dec Time: 277.60 ms | |TV E Brock: 0.78 m/s | |TV E/A Ratio: 1.01 | | | |Electric Wheelchair Repairer: | |Authenticated by: JASON BUCIO MD [...] | | Basophils | performed at [facility];[address] | K/uL | LAB | | | | [address];[place] | | | | | | [address] | | | | + + + [...] | | | | performed at [facility] | | LAB | | | | [address];[place] | | | | | | [address] | | | | + + + [...] | | | | | performed at [facility], [address] | | | | | | [address], | | | | | | [place] [address] | | | | + + + [...] | | | Direct | performed at [facility];[address] | | LAB | | | | [address];[place], [place] | | | | | | [address] | | | | + + + [...] | | | Cholesterol | performed at [facility], [address] | | LAB | | | , | [address], | | | | | Calculated, | [place] [address] | | | | | External | [...] | | | | | | MDRD [facility] traceable | | | | | | equation.Testing | | | | | | performed at [facility];[address] | | | | | | [facility];[place], [place] | | | | | | [address] | | | | + + + [...] | | Fingerstick | performed at [facility];[address] | | LAB | | | | [address];[place], [place] | | | | | | [address] | | | | + + + [...] | | Fingerstick | performed at [facility];[address] | | LAB | | | | [address];[place], [place] | | | | | | [address] | | | | + + + [...] obtained. | | | MRA Brain: 3D kpwf-pk-hohvui MRA with MIP reformations. MRA neck: 2D | | | yggz-oc-ixmhat MRA with MIP reformations. FINDINGS: MRI Brain: [...] imaging | | was obtained.MRA Brain: 3D poqk-em-paavnc MRA with MIP reformations.MRA neck: 2D | | grnp-wu-brdlkv MRA with MIP reformations.FINDINGS:MRI Brain:Brain: No restricted [...] obtained. | | | MRA Brain: 3D zanz-kq-pmqbkt MRA with MIP reformations. MRA neck: 2D | | | dbmq-xp-pzlhkr MRA with MIP reformations. FINDINGS: MRI Brain: [...] imaging | | was obtained.MRA Brain: 3D yyeo-jc-zhjfxi MRA with MIP reformations.MRA neck: 2D | | djeb-ll-sxekga MRA with MIP reformations.FINDINGS:MRI Brain:Brain: No restricted [...] LAB | | | | performed at [facility], [address] | | | | | | [address], | | | | | | [place] [address] | | | | + + + [...] - 1.030 | EXTERNAL | | | [place] | | | LAB | | + [...] | | | Urine | performed at [facility], [address] | | LAB | | | | [address], | | | | | | [place] [address] | | | | + + + [...]
--- OUTSIDE RECORDS SUMMARY | ~2019-06-03 | XMS | Encounter Summary ---
Demographics + + + | Address | [address] | | | [place] [address] | + + + | Home Phone [...] Providers + +------+ + | Care Senior Training Specialist Name | Role | Phone | + +------+ + | Bernadette Armendariz PA-C | PCP | | + +------+ + Encounter Details +--------+ + + + + | Date | Type | Department | Care Team | Description | +--------+ + + + + | 03/11/ | Orders Only | [facility] | James Pearce MD | Essential | | 2019 | | NEPHROLOGY [place] | [address] [place] | hypertension | | | | [address] | [address] [place], [place] | (Primary Dx); Type 2 | | | | [address] | [address] | diabetes mellitus | | | | [place], [place] | | with complication, | | | | [address] | | with long-term | | | | [phone] | | current use of | | [...] 2019 | Visit | | [address] [facility] [address] | | | | | | [address] [place], [place] | | | | | | [address] | | | | | | | [...] type | | | | | | ([facility]) | | + +------+--------+ + + documented [...]
--- OUTSIDE RECORDS SUMMARY | ~2019-06-03 | XMS | Encounter Summary ---
Demographics + + + | Address | [address] | | | [place] [address] | + + + | Home Phone | | + + + | Preferred Language | Unknown | + + + | Marital Status | | + + + | Sikhism Affiliation | 1041 | + + + | Race | Unknown | + + + | Ethnic Group | Unknown | + + + Author + + + | Author | [facility] | | | and [place] | + + + | Organization | [facility] | | [...] Team Providers + +------+ + | Care Riveter Helper Name | Role | Phone | + +------+ + | Bernadette Armendariz PA-C | PCP | | + +------+ + Encounter Details +--------+ + + + + | Date | Type | Department | Care Team | Description | +--------+ + + + + | 03/17/ | Orders Only | [facility] | James Perace MD | Essential (primary) | | 2019 | | NEPHROLOGY [place] | [address] [place] | hypertension; | | | | [address] [place] | [address] [place], [place] | Chronic kidney | | | | [address] [place], [place] | [address] | disease, stage IV | | | | [address] | | (severe) ([facility]); | | | | [phone] | | Proteinuria; | | | | | | Secondary | | | | | | hyperparathyroidism | | | | | | of renal origin | | | | | | ([facility]); Vitamin D | | [...] | | | | | | [address] [place], [place] | | | | | | [address] | | | | | | | [...]
--- OUTSIDE RECORDS SUMMARY | ~2019-06-03 | XMS | Clinical Summary ---
Demographics + + + | Address | [address] | | | [place] [address] | + + + | Home Phone [...] Team Providers + +------+ + | Care Ride Attendant Name | Role | Phone | [...] mg by mouth | | 0 | 03/23 | | Activ | | [...] 1 tablet by | | 0 | 05/1 | 05/1 | [...] 0 | | | Activ | | (CASIECurlyUS ZAFAROSITOAR) | the skin every | | | [...] | | | ([facility]); CKD (chronic | | | | | | kidney disease), | | | | | | stage IV ([facility]); | | | | | | Anemia of chronic | | | | | | renal failure, stage | | | | | | 4 (severe) ([facility]); | | | | | | Vitamin D deficiency | +--------+ + + + + | 03/17/ | Orders Only | Nephrology | James Pearce MD | Essential (primary) | | 2019 | | | | hypertension; | | | | | | Chronic kidney | | | | | | disease, stage IV | | | | | | (severe) ([facility]); | | | | | | Proteinuria; | | | | | | Secondary | | | | | | hyperparathyroidism | | | | | | of renal origin | | | | | | ([facility]); Vitamin D | | | | | | deficiency | +--------+ + + + + | 03/16/ | Office | Nephrology | James Pearce MD | CKD (chronic kidney | | 2019 | Visit | | | disease), stage IV | | | | | | (HCC) (Primary Dx); | | | | | | Vitamin D | | | | | | deficiency; Anemia | | | | | | of chronic renal | | | | | | failure, stage 4 | | | | | | (severe) ([facility]); | | | | | | Secondary | | | | | | hyperparathyroidism | | | | | | ([facility]); 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, with | | | | | | long-term current | | | | | | use of insulin | | | | | | ([facility]); Essential | | | | [...] complications | | | | | | ([facility]); Acute kidney | | | | | | failure ([facility]) | +--------+ + + + + | 03/16/ | Documentati | Nephrology | Luis | Results (03/13/19) | | 2018 | on | | Maninder Suarez | | | | | | Asset Card Clerk | | +--------+ + + + + | 03/11/ | Orders Only | Nephrology | James Pearce MD | Essential (primary) | | 2018 | | | | hypertension | | | | | | (Primary Dx); CKD | | | | | | (chronic kidney | | | | | | disease), stage IV | | | | | | ([facility]); Nephrotic | | | | [...] | Essential | | 2019 | | | | [...] 2019 | Visit | | [address] [address] [facility] | | | | | [address] [place] | | | | | | [address] | | | | | | | [...] 1.005 - 1.030 | | | | [place] | | | | | + + [...] | | + +--------+ +--------+ +---------+--------+ | [facility] | IHS | [id number] | | | | Indemn | | SERVICE | YELLOW | | 018-Pr | | | ity | | | HAWK | | esent | | | | + +--------+ +--------+ +---------+--------+ | [employer] | MODA | [id number] | 01/28/20 | [phone] | | Medica | | MEDICAID HMO | HEALTH | | 18-Pre | 1 | | id | | | MDCD | | sent | | | | | | [place] | | | | | | + +--------+ +--------+ +---------+--------+ | HEALTH | IHS | [id number] | | | | Indemn | | SERVICE | YELLOW | | 018-Pr | | | ity | | | HAWK | | esent | | | | + +--------+ +--------+ +---------+--------+ | [employer] | MODA | [id number] | 02/23/20 | [phone] | | Medica | | [...] Person | Self | [birth year] | [address] | | | al/Fam | | 1955 | [phone] | [address] [place], [place] | | | jeni | | | 4 (Home) | [address] | + +--------+ +--------+ + + | Maria Ines Martin | Person | Self | [birth year] | [address] | | | al/Fam | | 1955 | [phone] | [address] [place], [place] | | | jeni | | | 2 (Home) | [address] | + +--------+ +--------+ + + Advance Directives + + + + + | Type | Date Recorded | Patient | Explanation | | | | Willow Machine Tender | | + + + + + | Power of | | | | | Orthotic And Prosthetic Technician | | | | + + + + + | Advance | | | | | Directive | | | | + + + + +
--- OUTSIDE RECORDS SUMMARY | ~2019-06-03 | XMS | Encounter Summary ---
Demographics + + + | Address | [address] | | | [place] [address] | + + + | Home Phone [...] Providers + +------+ + | Care Utility Worker Forge Name | Role | Phone | + +------+ + | Bernadette Armendariz PA-C | PCP | | + +------+ + Encounter Details +--------+ + + + + | Date | Type | Department | Care Team | Description | +--------+ + + + + | 03/16/ | Orders Only | [facility] | James Pearce MD | Essential (primary) | | 2019 | | NEPRHOLOGY [place] | [address] [place] | hypertension; Type 2 | | | | [address] | [address] [place], [place] | diabetes mellitus | | | | [address] [place], [place] | [address] | with complications | | | | [address] | | (HCC); Acute kidney | | | | [phone] | | failure (HCC) | +--------+ + [...] | | | | | | [address] [place], [place] | | | | | | [address] | | | | | | | [...]
--- OUTSIDE RECORDS SUMMARY | ~2019-06-03 | XMS | Encounter Summary ---
Demographics + + + | Address | [address] | | | [place] [address] | + + + | Home Phone [...] Team Providers + +------+ + | Care Reeling Operator Name | Role | Phone | + +------+ + | Bernadette Armendariz PA-C | PCP | | + +------+ + Encounter Details +--------+ + + + + | Date | Type | Department | Care Team | Description | +--------+ + + + + | 12/02/ | Emergency | [facility] | [facility], | | | 2019 - | | MEDICAL CENTER | MD [address] | | | | | EMERGENCY CENTER | [address] | | | 12/03/ | | [address] | [place] [address] | | | 2018 | | [place], [place] | [phone] | | | | | [address] | | | | | | [phone] | | | +--------+ + + + [...] [place] | | | | | | [address] | | | | | | | | +--------+---------+ + + + documented as of this encounter Visit Diagnoses Not on filedocumented in this encounter"
--- OUTSIDE RECORDS SUMMARY | ~2019-06-03 | XMS | Encounter Summary ---
Demographics + + + | Address | [address] | | | [place] [address] | + + + | Home Phone | | + + + | Preferred Language | Unknown | + + + | Marital Status | | + + + | Voodoo Affiliation | 1041 | + + + | Race | Unknown | + + + | Ethnic Group | Unknown | + + + Author + + + | Author | [facility] | | | and [place] | + + + | Organization | [facility] | [...] | + + +---------+ + | Sachinirene Hebertjaenne | ECON | Unknown | | + + +---------+ + | Bryan Martin | ECON | Unknown | | + + +---------+ + Care Team Providers + +------+ + | Care Industrial Staff Nurse Name | Role | Phone | + +------+ + | Bernadette Armendariz PA-C | PCP | | + +------+ + Encounter Details +--------+ + + + + | Date | Type | Department | Care Team | Description | +--------+ + + + + | 03/10/ | Orders Only | [facility] | James Pearce MD | | | 2019 | | NEPHROLOGY [place] | [address] [place] | | | | | [address] [place] | [address] [facility], [place] | | | | | [address] [facility] [place] | [address] | | | | | [address] | | | | | | [phone] | | | +--------+ + + + [...] 2019 | Visit | | [address] [facility] | | | | | | [address] [place], [place] | | | | | | [address] | | | | | | | | +--------+---------+ + + + documented as of this encounter Visit Diagnoses Not on filedocumented in this encounter"
--- OUTSIDE RECORDS SUMMARY | ~2019-06-03 | XMS | Clinical Summary ---
Demographics + + + | Address | [address] | | | [place] [address] | + + + | Home Phone [...] Team Providers + +------+ + | Care Avionics System Engineer Name | Role | Phone [...] + + | Overview: Echocardiogram done at [facility] on 01/28/18 | | shows overall [...] | | | | | ([facility]); CKD (chronic | | | | | | kidney disease), | | | | | | stage IV ([facility]); | | | | | | Anemia of chronic | | | | | | renal failure, stage | | | | | | 4 (severe) ([facility]); | | | | | | [...] | | | | (severe) ([facility]); | | | | | | Proteinuria; | | | | | | Secondary | | | | | | hyperparathyroidism | | | | | | of renal origin | | | | | | ([facility]); Vitamin D | | | | [...] | | | | (severe) ([facility]); | | | | | | Secondary | | | | | | hyperparathyroidism | | | | | | ([facility]); 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, with | | | | | | long-term current | | | | | | use of insulin | | | | | | ([facility]); Essential | | | | | [...] complications | | | | | | ([facility]); Acute kidney | | | | | | failure ([facility]) | +--------+ + + + + | 03/16/ | Documentati | Nephrology | Luis | Results (03/13/19) | | 2018 | on | | Maninder Suarez | | | | | | Certified Drug Counselor | | +--------+ + + + + | 03/11/ | Orders Only | Nephrology | James Pearce MD | Essential (primary) | | 2018 | | | | hypertension | | | | | | (Primary Dx); CKD | | | | | | (chronic kidney | | | | | | disease), stage IV | | | | | | ([facility]); Nephrotic | | | | | | range proteinuria; | | | | | | Secondary | | | | | | hyperparathyroidism | | | | | | ([facility]); Vitamin D | | | | [...] | | | | | | [address] [place] | | | | | | [address] | | | | | | | [...] 1.005 - 1.030 | | | | [place] | | | | | + + [...] | | + +--------+ +--------+ +---------+--------+ | [facility] | IHS | [id number] | | | | Indemn | | SERVICE | YELLOW | | 018-Pr | | | ity | | | HAWK | | esent | | | | + +--------+ +--------+ +---------+--------+ | [employer] | MODA | [id number] | 01/28/20 | [phone] | | Medica | | MEDICAID HMO | HEALTH | | 18-Pre | 1 | | id | | | MDCD | | sent | | | | | | [place] | | | | | | + +--------+ +--------+ +---------+--------+ | HEALTH | IHS | [id number] | | | | Indemn | | SERVICE | YELLOW | | 018-Pr | | | ity | | | HAWK | | esent | | | | + +--------+ +--------+ +---------+--------+ | [employer] | MODA | [id number] | 02/23/20 | [phone] | | Medica [...] Person | Self | [birth year] | [address] | | | al/Fam | | 1955 | [phone] | [address] [place], [place] | | | jeni | | | 4 (Home) | [address] | + +--------+ +--------+ + + | Maria Ines Martin | Person | Self | [birth year] | [address] | | | al/Fam | | 1955 | [phone] | [address] [place], [place] | | | jeni | | | 2 (Home) | [address] | + +--------+ +--------+ + + Advance Directives + + + + + | Type | Date Recorded | Patient | Explanation | | | | General Office Associate | | + + + + + | Power of | | | | | Felt Hat Flanging Operator | | | | + + + + + | Advance | | | | | Directive | | | | + + + + +
--- OUTSIDE RECORDS SUMMARY | ~2019-06-03 | XMS | Clinical Summary ---
Demographics + + + | Address | [address] | | | [place] [address] | + + + | Home Phone | | + + + | Preferred Language | Unknown | + + + | Marital Status | Unknown | + + + | Church Affiliation | Unknown | + + + | Race | Unknown | + + + | Ethnic Group | Unknown | + + + Author + + + | Author | [facility] (Historical as of | | | 03-07-19) | + + + | Organization | [facility] (Historical as of | | | 03-07-19) [...] Providers + +------+ + | Care Receptionist Scheduler Name | Role | Phone | + [...] | CKD (chronic kidney disease), stage IV ([facility]) | 11/17/2018 | + + + | Anemia of chronic renal failure, stage 4 (severe) ([facility]) | 11/17/2018 | + + [...] +------+-------+ + | MEDICAID | [facility] | [id number] | | | [address] | | | N | | | | [place], [place] | | | [place] | | | | [address] | | | MEDICAL SCIENTIFIC LIAISON | | | | | + +--------+ +------+-------+ + | /[facility] | YELLOW | [id number] | | | | | PLANS | [...] | Self | [birth year] | Home: | [address] | | | christopher/Kyle | | 1954 | +1-000-000- | [place] | | | jeni | | | 0000 | [address] | + +--------+ +--------+ + +
--- OUTSIDE RECORDS SUMMARY | ~2019-06-03 | XMS | Encounter Summary ---
Demographics + + + | Address | [address] | | | [place] [address] | + + + | Home Phone | | + + + | Preferred Language | Unknown | + + + | Marital Status | Unknown | + + + | Lutheran Affiliation | Unknown | + + + | Race | Unknown | + + + | Ethnic Group | Unknown | + + + Author + + + | Author | [facility] (Historical as of | | | 03-07-19) | + + + | Organization | [facility] (Historical as of | | | 03-07-19) [...] + +------+ + | Care Director Of Quantitative Research Name | Role | Phone | + [...] [address] | | | | | | [place] [address] | | | | | | [phone] | | | +--------+ + + + [...]
--- OUTSIDE RECORDS SUMMARY | ~2019-06-03 | XMS | Clinical Summary ---
Demographics + + + | Address | [address] | | | [place] [address] | + + + | Home Phone | | + + + | Preferred Language | Unknown | + + + | Marital Status | Unknown | + + + | Muslim Affiliation | Unknown | + + + | Race | Unknown | + + + | Ethnic Group | Unknown | + + + Author + + + | Author | [facility] (Historical as of | | | 03-07-19) | + + + | Organization | [facility] (Historical as of | | | 03-07-19) [...] Team Providers + +------+ + | Care Summer Sessions Director Name | Role | Phone | [...] +------+-------+ + | MEDICAID | [place] | [id number] | | | [address] | | | N | | | | [place], [place] | | | [place] | | | | [address] | | | SUPERVISOR COVERING AND LINING | | | | | + +--------+ +------+-------+ + | /[facility] | YELLOW | [id number] | | | | | PLANS | [...] | Self | [birth year] | Home: | [address] | | | christopher/Kyle | | 1954 | +1-000-000- | [place] | | | jeni | | | 0000 | [address] | + +--------+ +--------+ + +
--- OUTSIDE RECORDS SUMMARY | ~2019-06-03 | XMS | Encounter Summary ---
Demographics + + + | Address | [address] | | | [place] [address] | + + + | Home Phone [...] Team Providers + +------+ + | Care Asp Web Developer Name | Role | Phone | + +------+ + | Bernadette Armendariz PA-C | PCP | | + +------+ + Encounter Details +--------+ + + + + | Date | Type | Department | Care Team | Description | +--------+ + + + + | 12/02/ | Emergency | [facility] | [facility] | | | 2019 - | | MEDICAL CENTER | MD [address] | | | | | EMERG[facility]Y CENTER | Talita Saeed | | | 12/03/ | | [address] | [place] [address] | | | 2018 | | [place], [place] | [phone] | | | | | [address] | | | | | | [phone] | | | +--------+ + + + [...] | Visit | | [address] [facility] | | | | | | [address] [place] | | | | | | [address] | | | | | | | | +--------+---------+ + + + documented as of this encounter Visit Diagnoses Not on filedocumented in this encounter"
--- OUTSIDE RECORDS SUMMARY | ~2019-06-03 | XMS | Encounter Summary ---
Demographics + + + | Address | [address] | | | [place] [address] | + + + | Home Phone [...] Team Providers + +------+ + | Care Stake Driver Name | Role | Phone | [...] [address] | | | | | [place], | [address] [place] | | | | | [place] [address] | [place] [address] | | | | | [phone] | [phone] | | | | | | | [...] | | | | | | [address] [place] | | | | | | [address] | | | | | | | [...]
--- OUTSIDE RECORDS SUMMARY | ~2019-06-03 | XMS | Encounter Summary ---
Demographics + + + | Address | [address] | | | [place] [address] | + + + | Home Phone [...] Team Providers + +------+ + | Care Recruiter Name | Role | Phone | + +------+ + | Bernadette Armendariz PA-C | PCP | | + +------+ + Encounter Details +--------+ + + + + | Date | Type | Department | Care Team | Description | +--------+ + + + + | 11/12/ | Orders Only | [facility] | James Pearce MD | | | 2019 | | NEPHROLOGY [place] | [address] [place] | | | | | [address] [place] | [address] [place], [place] | | | | | [facility] [place] | [address] | | | | | [address] | | | | | | [phone] | | | +--------+ + + + [...] 2019 | Visit | | [address] [facility] | | | | | | [address] [facility] [place] | | | | | | [address] | | | | | | | [...] | | | LAB | | | EQUATORIAL GUINEAN | | | | | + +---------+ [...]
--- OUTSIDE RECORDS SUMMARY | ~2019-06-03 | XMS | Clinical Summary ---
Demographics + + + | Address | [address] | | | [place] [address] | + + + | Home Phone [...] [address] [place] | | | | | [address] | | + + + + + Care Team Providers + +------+ + | Care Mcat Instructor Name | Role | Phone | + +------+ + PCP | Unavailable | + +------+ + Source Comments CHELY is fully live on both [facility] and [facility] In[facility] Allergies Not on File Medications [...]
--- OUTSIDE RECORDS SUMMARY | ~2019-06-03 | XMS | Encounter Summary ---
Demographics + + + | Address | [address] | | | [place] [address] | + + + | Home Phone [...] Team Providers + +------+ + | Care Amphibious Operations Officer Name | Role | Phone | [...] (congestive | PA-C [address] | [address] | | | | | heart | [address] | [place], | | | | | failure) | [place] | [place] | | | | | (HCC) | [address] | [address] | | | | | Procedures | EDWARDS, | Phone: | | | | | COMMUNICATIONS STATION MANAGER 02/11 > | [place] | [phone] | | | | | PENDING DOS | [address] | Fax: | | | | | | Phone: | [phone] | | | | | | [phone] | | | | | | | Fax: | | | | | | | [phone] | | +--------+--------+ + + + + Encounter Details +--------+---------+ + + + | Date | Type | Department | Care Team | Description | +--------+---------+ + + + | 03/03/ | Office | [facility] | Сергей Vasquez | Congestive heart | | 2017 | Visit | CARDIOLOGY [address] | MD Don [address] | failure, unspecified | | | | [place], | [address] [place] | HF chronicity, | | | | [place] [address] | [place] [address] | unspecified heart | | | | [phone] | [phone] | failure type (HCC) | | | [...] whether | | | | | | prairie band or | | | | | [...] procedure. 6. Make sure you have a road train driver to take you home. Your road train driver will also need to sign you [...] line at and ask for nursing supervisor steel division t o let them know you are [...] 4.7 Final Albumin/Globulin Ratio 01/27/2018 0.5 Final [facility] 01/27/2018 27.0 26.0 - 33.0 pg Final MCHC 01/27/2018 33.0 30.0 - 36.0 % Final BASOPHILS % 01/27/2018 0.3 1.0 % Final I reviewed records from [facility] for hospitalization,including H&P, Discharge [facility] and lab reports on 01/27/18 [...] made to ensure accuracy; however, inadvertent computerized red cross executive director errors may be pre sent. Electronically signed by: Kyler Vasquez MD PhD [facility] 03/03/2018 documented in t his encounter Plan of Treatment +--------+---------+ + + + | Date | Type | Specialty | Care Team | Description | +--------+---------+ + + + | 06/22/ | Office | Nephrology | James Pearce MD | | | 2019 | Visit | | [address] [facility] | | | | | | [address] [place], [place] | | | | | | [address] | | | | | | | [...] whether | | | | | | prairie band or | | | | | [...] whether | | | | | | prairie band or | | | | | [...] whether | | | | | | prairie band or | | | | | [...] MD | | | | | | ([id number]) on 03/04/2018 | | | | | [...] | + + | Myocardial infarction, unspecified [place] type, unspecified artery (HCC) | + + | Cerebrovascular accident (CVA), unspecified mechanism (HCC) | + + | Hypertension, unspecified type | + + | Heart disease Heart disease, unspecified | + + | Tobacco use disorder | + + | Coronary artery disease, angina presence unspecified, unspecified vessel or lesion | | type, unspecified whether prairie band or transplanted heart | + + documented in this encounter
--- OUTSIDE RECORDS SUMMARY | ~2019-06-03 | XMS | Encounter Summary ---
Demographics + + + | Address | [address] | | | [place] [address] | + + + | Home Phone [...] Team Providers + +------+ + | Care Investment Associate Name | Role | Phone | + +------+ + | Bernadette Armendariz PA-C | PCP | | + +------+ + Encounter Details +--------+ + + + + | Date | Type | Department | Care Team | Description | +--------+ + + + + | 03/18/ | Orders Only | [facility] | James Pearce MD | Essential (primary) | | 2019 | | NEPHROLOGY [place] | [address] [place] | hypertension | | | | [address] [place] | [address] [place], [place] | (Primary Dx); | | | | [address] [place], [place] | [address] | Secondary | | | | [address] | | hyperparathyroidism | | | | [phone] | | (HCC); CKD (chronic | | | | | | kidney disease), | | | | | | stage IV ([facility]); | | | | | | Anemia of chronic | | | | | | renal failure, stage | | | | | | 4 (severe) ([facility]); | | | | | | [...] | | [address] [facility] [place] | | | | | | [address] [place], [place] | | | | | | [address] | | | | | | | [...] | | | | | 4 (severe) ([facility]) | | + +------+--------+ + + [...]
--- OUTSIDE RECORDS SUMMARY | ~2019-06-03 | XMS | Encounter Summary ---
Demographics + + + | Address | [address] | | | [place] [address] | + + + | Home Phone [...] Team Providers + +------+ + | Care Magazine Writer Name | Role | Phone | + +------+ + PCP | Unavailable | + +------+ + Encounter Details +--------+ + + + + | Date | Type | Department | Care Team | Description | +--------+ + + + + | 10/23/ | Hospital | [facility] | Cal Godinez, | | | 2000 | Encounter | MED CTR XRAY [address] | MD [address] [facility] | | | | | [place] | [place], [place] | | | | | [place] [address] | [address] | | | | | [phone] | | | +--------+ + + + [...] [address] [facility] | | | | | | [address] [place] | | | | | | [address] | | | | | | | | +--------+---------+ + + + documented as of this encounter Visit Diagnoses Not on filedocumented in this encounter"
--- OUTSIDE RECORDS SUMMARY | ~2019-06-03 | XMS | Encounter Summary ---
Demographics + + + | Address | [address] | | | [place] [address] | + + + | Home Phone [...] Team Providers + +------+ + | Care Knitting Inspector Name | Role | Phone | [...] + + | 11/14/ | Telephone | [facility] | Сергей Gaitan | Other (Testing, | | 2018 | | [facility] [address] | MD Don [address] | Labs) | | | | [place], | [address] [place] | | | | | [place] [address] | [place] [address] | | | | | [phone] | [phone] | | | | | | | [...] 2018 | Visit | | [address] [facility] [place] | | | | | | [address] [facility] [place] | | | | | | [address] | | | | | | | [...]
--- OUTSIDE RECORDS SUMMARY | ~2019-06-03 | XMS | Encounter Summary ---
Demographics + + + | Address | [address] | | | [place] [address] | + + + | Home Phone | | + + + | Preferred Language | Unknown | + + + | Marital Status | | + + + | Latter Day Affiliation | 1041 | + + + | Race | Unknown | + + + | Ethnic Group | Unknown | + + + Author + + + | Author | [facility] | | | and [place] | + + + | Organization | [facility] [...] Team Providers + +------+ + | Care Shipping Assistant Name | Role | Phone | + +------+ + | Bernadette Armendariz PA-C | PCP | | + +------+ + Encounter Details +--------+ + + + + | Date | Type | Department | Care Team | Description | +--------+ + + + + | 02/17/ | Abstract | [facility] | Сергей Gaitan | Congestive heart | | 2018 | | CARDIOLOGY [address] | MD Don [address] | failure, unspecified | | | | [place], | [address] [place] [address] [place] | HF chronicity, | | | | [place] [address] | [place] [address] | unspecified heart | | | | [phone] | [phone] | failure type (HCC) | | | [...] 2019 | Visit | | [address] [facility] | | | | | | [address] [place] | | | | | | [address] | | | | | | | [...]
--- OUTSIDE RECORDS SUMMARY | ~2019-06-03 | XMS | Encounter Summary ---
Demographics + + + | Address | [address] | | | [place] [address] | + + + | Home Phone | | + + + | Preferred Language | Unknown | + + + | Marital Status | | + + + | Pentecostal Affiliation | Unknown | + + + | Race | or | + + + | Ethnic Group | Not or | + + + Author + + + | Author | [facility] | + + + | Organization | [facility] | + + + | Address | Unknown | + + + | Phone | Unavailable | + + + Support + + + + + | Name | Relationship | Address | Phone | + + + + + | Angene Bill | ECON | [address] | | | | [address], [place] | | | | | [address] | | + + + + + Care Team Providers + +------+ + | Care Phosphoric Acid Operator Name | Role | Phone | [...] | | | | | livia | [place], [place] | | | | | | [address] | | | +--------+ + + + [...]
--- OUTSIDE RECORDS SUMMARY | ~2019-06-03 | XMS | Encounter Summary ---
Demographics + + + | Address | [address] | | | [place] [address] | + + + | Home Phone [...] Team Providers + +------+ + | Care Soaping Department Supervisor Name | Role | Phone | + +------+ + | Bernadette Armendariz PA-C | PCP | | + +------+ + Encounter Details +--------+---------+ + + + | Date | Type | Department | Care Team | Description | +--------+---------+ + + + | 03/16/ | Office | [facility] | James Pearce MD | CKD (chronic kidney | | 2019 | Visit | NEPHROLOGY [place] | [address] [facility] | disease), stage IV | | | | [address] | [address] [place], [place] | ([facility]) (Primary Dx); | | | | [address] | [address] | Vitamin D | | | | [place], [place] | | deficiency; Anemia | | | | [address] | | of chronic renal | | | | [phone] | | failure, stage 4 | | | | | | (severe) (HCC); | | | | | | Secondary | | | | | | hyperparathyroidism | | | | | | ([facility]); 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 P M PDT documented in this encounter Progress Notes James Pearce MD - 03/16/2019 2:10 PM PDT Progress Notes by James Pearce MD at 11/17/18 [id number] Author: James Pearce MD Service: (none) Author Type: Physician Filed: 11/17/18 [id number] Encounter Date: 11/17/2018 Status: Signed Wrapper Caser: James Pearce MD (Physician) Patient Active Problem [...] LABIRON 82.2 (A) 11/12/2018 LABPROT 4.982 08/07/2018 FROB30APIOW 8.5 (A) 11/12/2018 Assessment: Ms. Martin is [...] RFP, CBC, Iron studies, Ferritin, intact PTH, 33-vnrdcdp-gxtslll D befor e she comes back in 3 months. Thank you Colleague for the opportunity to see this patient in F/U today. Please do not hes itate to call me at any time with questions or concerns. Truly yours, James Pearce MD [facility] MARIA LUISA ERLINDA documented in this enco unter Plan of Treatment +--------+---------+ + + + | Date | Type | Specialty | Care Team | Description | +--------+---------+ + + + | 06/22/ | Office | Nephrology | James Pearce MD | | | 2019 | Visit | | [address] [facility] | | | | | | [address] [place], [place] | | | | | | [address] | | | | | | | [...]
--- OUTSIDE RECORDS SUMMARY | ~2019-06-03 | XMS | Clinical Summary ---
Demographics + + + | Address | [address] | | | [place] [address] | + + + | Home Phone [...] [address] [place] | | | | | [address] | | + + + + + Care Team Providers + +------+ + | Care Terrazzo Worker Apprentice Name | Role | Phone | + +------+ + PCP | Unavailable | + +------+ + Source Comments CHELY is fully live on both [facility] and [facility] InPatient.[facility] (formerly [...]
--- OUTSIDE RECORDS SUMMARY | ~2019-06-03 | XMS | Encounter Summary ---
Demographics + + + | Address | [address] | | | [place] [address] | + + + | Home Phone [...] Team Providers + +------+ + | Care Cryogenics Engineer Name | Role | Phone | [...] + + | 03/16/ | Documentati | [facility] | Luis, | Results (03/13/19) | | 2019 | on | NEPHROLOGY [place] | [facility] | | | | | [address] | Web Services Architect | | | | | [facility] [address] | | | | | | [place], [place] | | | | | | [address] | | | | | | [phone] | | | +--------+ + + + [...] 2019 | Visit | | [address] [facility] | | | | | | [address] [place], [place] | | | | | | [address] | | | | | | | [...] 1.005 - 1.030 | | | | [place] | | | | | + + [...]
--- OUTSIDE RECORDS SUMMARY | ~2019-06-03 | XMS | Encounter Summary ---
Demographics + + + | Address | [address] | | | [place] [address] | + + + | Home Phone [...] Team Providers + +------+ + | Care Insole Rounder Name | Role | Phone | + [...] [place] | | | | | | [address] | (Fax) | | | | | [phone] | | | +--------+ + + + [...] | Visit | | [address] [facility] [place] | | | | | | [address] [place], [place] | | | | | | [address] | | | | | | | [...]
[~2019-06-03 20:48] MED LIST changes: +AMLODIPINE BESYL5 MG PO; +ASPIRIN81 MG PO; +LOSARTAN POTAS100 MG PO
--- OUTSIDE RECORDS SUMMARY | 2019-06-03 20:52 | XMS ---
PreManage Notification: JOSE G COX Security Communications Editor Events No recent Security Events currently on file CRITERIA MET - [facility] - 2 Visits in 30 Days CARE PROVIDERS ADAMARIS MOSCOSO Physician Housekeeper Child Care: Surgical 04/21/2018-Current PHONE: Unknown BLAINE HA Nurse Practitioner 04/21/2019-Current PHONE: [phone] Name [facility] 04/21/2019-Current PHONE: [phone] Neo has no Care Guidelines for this patient. Care History Medical/Surgical 04/21/2018 [facility] - PATIENT HAS [facility] PROVIDER: - PLEASE REFER PATIENT TO [facility] FOR NON EMERGENT MEDICAL NEEDS. - IF PATIENT CALLS EARLY IN THE AM TO [facility] PATIENT CAN BE SEEN SAME DAY FOR ANY NON EMERGENT MEDICAL NEEDS. - [facility] CONTACT # [phone] - PATIENT HAS A LONG EXTENSIVE HX WITH METHAMPHETAMINE USAGE. - PHYSICIAN DISCRECTION- TOX SCREEN BEFORE TREATMENT. Care Recommendation: - USE EXTREME CAUTION IN GIVING NARCOTICS TO THIS PATIENT. - Avoid Discharge Narcotic prescriptions if at all possible. Please use clinical judgement. E.D. VISIT COUNT (12 MO.) 2 [facility] 10 [facility] [place] TOTAL 12 NOTE: Visits indicate total known visits. ED/UCC VISIT TRACKING (12 MO.) 06/03/2019 20:49 [facility] [place] TYPE: Emergency COMPLAINT: - SKIN PROBLEM 05/23/2019 09:18 [facility] [place] TYPE: Emergency COMPLAINT: - BACK PAIN, ABD PAIN DIAGNOSES: - Heart failure, unspecified - Prsnl hx of TIA (TIA), and cereb infrc w/o resid deficits - 1 Type 2 diabetes mellitus w diabetic chronic kidney disease - halfway (current) use of aspirin - Other moth exterminator (current) drug therapy - Unspecified abdominal pain - Personal history of nicotine dependence - halfway (current) use of insulin - Chronic kidney disease, unspecified - Unspecified asthma, uncomplicated - Allergy status to other antibiotic agents status 04/21/2019 08:55 [facility] [place] TYPE: Emergency COMPLAINT: - BREATHING ISSUES DIAGNOSES: - Allergy status to other antibiotic agents status - Heart failure, unspecified - Personal history of nicotine dependence - 1 Type 2 diabetes mellitus without complications - Acute upper respiratory infection, unspecified - Cough - Unspecified asthma, uncomplicated 12/02/2018 11:51 [facility] [place] TYPE: Emergency COMPLAINT: - LOSS OF CONCIOUSSNESS/MULTIPLE COMPLAINTS DIAGNOSES: - Anemia, unspecified - Chronic kidney disease, unspecified - halfway (current) use of insulin - Allergy status to other antibiotic agents status - Unspecified visual disturbance - Heart failure, unspecified - Syncope and collapse - Dizziness and giddiness - Unspecified asthma, uncomplicated - 1 Type 2 diabetes mellitus w diabetic chronic kidney disease - Old myocardial infarction - Prsnl hx of TIA (TIA), and cereb infrc w/o resid deficits 12/02/2018 00:00 [facility] TYPE: Emergency 12/02/2018 00:00 [facility] TYPE: Emergency DIAGNOSES: - Vision Distrubances 12/01/2018 16:06 [facility] [place] TYPE: Emergency COMPLAINT: - BLURRED VISION, RIGHT SIDED WEAKNESS DIAGNOSES: - halfway (current) use of insulin - Prsnl hx of TIA (TIA), and cereb infrc w/o resid deficits - Unspecified visual disturbance - Other visual disturbances - Other custodial (current) drug therapy - Unspecified asthma, uncomplicated [...] and cereb infrc w/o resid deficits - director long term care (current) use of insulin - Puncture wound without foreign body, right foot, init encntr - Personal history of nicotine dependence - 1 Type 2 diabetes mellitus without complications - Other moth exterminator (current) drug therapy - director long term care (current) use of aspirin 10/01/2018 19:00 [facility] [place] TYPE: Emergency COMPLAINT: - ABD PAIN DIAGNOSES: - Left lower quadrant pain - Heart failure, unspecified - Old myocardial infarction - director long term care (current) use of insulin - Unspecified asthma, uncomplicated - halfway (current) use of aspirin - 1 Type 2 diabetes mellitus without complications - Other moth exterminator (current) drug therapy - Cellulitis of abdominal wall - Allergy status to oth drug/meds/biol subst status 09/09/2018 07:55 [facility] [place] TYPE: Emergency COMPLAINT: - COUGH DIAGNOSES: - Personal history of nicotine dependence - Allergy status to oth drug/meds/biol subst status - Cough - 1 Type 2 diabetes mellitus without complications - Pneumonia, unspecified organism - Other moth exterminator (current) drug therapy - halfway (current) use of insulin - Chronic sinusitis, unspecified 08/21/2018 15:13 [facility] [place] TYPE: Emergency COMPLAINT: - DIFFICULTY BREATHING DIAGNOSES: - Old myocardial infarction - halfway (current) use of insulin - Other moth exterminator (current) drug therapy - Heart failure, unspecified [...] asthma, uncomplicated - Chest pain, unspecified - halfway (current) use of insulin - 1 Type 2 diabetes mellitus without complications - Allergy status to oth drug/meds/biol subst status - Other custodial (current) drug therapy - Viral infection, unspecified INPATIENT VISIT TRACKING (12 MO.) 12/02/2018 21:21 [facility] TYPE: Observation DIAGNOSES: - Vision Distrubances - Weakness 08/05/2018 10:20 [facility] TYPE: Cardiology DIAGNOSES: - Ischemic cardiomyopathy - Heart failure, unspecified - Athscl heart disease of [place] coronary artery w/o ang pctrs - Precordial pain [email or web address]
[2019-06-03] MEDS ORDERED: VIBRAMYCIN100 MG PO (22:47)
== END 2019-06-03 23:13 | disposition home or self-care (01) ==
LOC: ED 20:48
DX: L03.311 Cellulitis of abdominal wall (principal); N19 Unspecified kidney failure; E11.9 Type 2 diabetes mellitus without complications; I50.9 Heart failure, unspecified; J45.909 Unspecified asthma, uncomplicated; I25.2 Old myocardial infarction; D64.9 Anemia, unspecified; Z87.891 Personal history of nicotine dependence; Z86.73 Personal history of transient ischemic attack (TIA), and cerebral infarction without residual deficits; Z88.1 Allergy status to other antibiotic agents; Z79.899 Other long term (current) drug therapy; Z79.4 Long term (current) use of insulin; Z79.51 Long term (current) use of inhaled steroids; Z79.82 Long term (current) use of aspirin
CPT/HCPCS: 80053; 85025; 99284

== ENCOUNTER 2019-06-25 20:08 | Emergency (ER) | payer OTHER ==
[~2019-06-25] VITALS: Ht 160 cm; Wt 85.7 kg
--- OUTSIDE RECORDS SUMMARY | ~2019-06-25 | XMS | Encounter Summary ---
Demographics + + + | Address | [address] | | | [place] [address] | + + + | Home Phone | | + + + | Preferred Language | Unknown | + + + | Marital Status | | + + + | Sabianist Affiliation | 1041 | + + + | Race | Unknown | + + + | Ethnic Group | Unknown | + + + Author + + + | Author | [facility] | | | and [place] | + + + | Organization | [facility] | | | and [...] Team Providers + +------+ + | Care Medical Delivery Technician Name | Role | Phone | + +------+ + | Nathalie Castorena | PCP | | + +------+ + Reason for Visit +---------+ + | Reason | Comments | +---------+ + | Results | 06/17/19 | +---------+ + Encounter Details +--------+ + + + + | Date | Type | Department | Care Team | Description | +--------+ + + + + | 06/22/ | Documentati | [facility] | Luis, | Results (06/17/19) | | 2019 | on | NEPHROLOGY [place] | [facility] | | | | | [address] | Jira Developer | | | | | [address] [facility] [address] | | | | | | [place], [place] | | | | | | [address] | | | | | | [phone] | | | +--------+ + + + [...] 2019 | Visit | | [address] [facility] | | | | | | [address] [place], [place] | | | | | | [address] | | | | | | | | +--------+---------+ + + + documented as of this encounter Procedures + +--------+ + + + | Procedure Name | Priori | Date/Time | Associated Diagnosis | Comments | | | ty | | | | + +--------+ + + + | EXTERNAL LAB: MARY CARMEN, | Routin | 06/17/2019 | | Results [...] + + documented in this encounter Results External Lab: PTH, Intact (06/17/2019) + +---------+ [...] | + + | | + + Iron and Iron Binding [...] Blood | + + Renal Function Panel (06/17/2019) + + + + + + | Component | Value | Ref Range | Performed | Pathologist | | | | | At | Signature | + + + + + + | PHOSPHORUS | 5.1 (A) | 2.5 - 5.0 | | | + + + + + + | Anion Gap | 12 (A) | 14 - 22 mmol/L | | | + + + + + + | BUN/Creatin | 11 | 11 - 35 | | | | ine Ratio | | | | | + + + + + + | Estimated | 17.0 (A) | 60.0 - 140.0 | | | | GFR | | mL/min/1.73m2 | | | + + + + + + | Glucose | 151 (A) | 65 - 99 mg/dL | | | + + + + + + | BUN | 32 (A) | 8 - 25 mg/dL | | | + + + + + + | Creatinine | 2.90 (A) | 0.70 - 1.30 | | | | | | mg/dL | | | + + + + + + | Na | 138 | 135 - 145 | | | | | | mmol/L | | | + + + + + + | K | 5.5 (A) | 3.5 - 5.3 | | | | | | mmol/L | | | + + + + + + | Cl | 111 (A) | 97 - 107 mmol/L | | | + + + + + + | CO2 | 20 (A) | 22 - 29 mmol/L | | | + + + + + + | Calcium | 8.0 (A) | 8.5 - 10.2 | | | + + + + + + | Albumin | 2.7 (A) | 3.5 - 5.2 g/dL | | | + + + + + + + + | Specimen | + + | Blood | + + CBC with Manual Differential (06/17/2019) + + + + + + | Component | Value | Ref Range | Performed | Pathologist | | | | | At | Signature | + + + + + + | WBC | 7.95 | 4.0 - 11.0 | | | + + + + + + | RBC | 2.90 (A) | 3.80 - 5.20 | | | | | | M/uL | | | + + + + + + | Hemoglobin | 8.48 (A) | 12 - 169 | | | + + + + + + | Hematocrit, | 25.3 (A) | 35.0 - 45.0 % | | | | POC | | | | | + + + + + + | MCV | 87.3 | 81.0 - 99.0 fL | | | + + + + + + | MCH | 29.2 | 27.0 - 33.0 pg | | | + + + + + + | MCHC | 33.5 | 30.0 - 36.0 | | | | | | g/dL | | | + + + + + + | Platelet | 205 | 140 - 440 | | | | Count | | | | | | Plasma | | | | | + + + + + + | RDW | 13.57 | 10.5 - 15.0 | | | + + + + + + | % | 23.40 (A) | 24 - 44 | | | | Lymphocytes | | | | | + + + + + + | Neutrophils | 66.30 | 37 - 67 | | | | , Absolute | | | | | + + + + + + | BAL | 5 | 1 - 7 % | | | | Neutrophils | | | | | | % | | | | | + + + + + + | Monocyte % | 6.40 | 5 - 12 | | | + + + + + + | BAL | 4 (A) | 5 - 12 % | | | | Eosinophils | | | | | | % | | | | | + + + + + + | BF % | 0 | 0 - 2 % | | | | Basophils | | | | | + + + + + + | Absolute | 0.51 | 0.2 - 1.0 | | | | Monocytes | | | | | + + + + + + | Eosinophils | 0.29 | 0 - 0.8 | | | | , Absolute | | | | | + + + + + + | Basophils, | 0.02 | 0.0 - 0.6 | | | | Absolute | | | | | + + + + + + + + | Specimen | + + | Blood | + + documented in this encounter Visit Diagnoses Not on filedocumented in this encounter"
--- OUTSIDE RECORDS SUMMARY | ~2019-06-25 | XMS | Clinical Summary ---
Demographics + + + | Address | [address] | | | [place] [address] | + + + | Home Phone | | + + + | Preferred Language | Unknown | + + + | Marital Status | | + + + | Rastafari Affiliation | 1041 | + + + [...] Team Providers + +------+ + | Care Physical Therapy Manager Name | Role | Phone | [...] + + | Overview: Echocardiogram done at [facility] on 01/28/18 | | shows overall [...] MD | | | 2019 | | | | | +--------+ + + + + | 06/22/ | Office | Nephrology | James Pearce MD | CKD (chronic kidney | | 2018 | Visit | | | disease), stage IV | | | | | | ([facility]) (Primary Dx); | | | | | | Anemia of chronic | | | | | | renal failure, stage | | | | | | 4 (severe) ([facility]); | | | | | [...] insulin | | | | | | ([facility]); Secondary | | | | | | hyperparathyroidism | | | | | | ([facility]); Nephrotic | | | | | | range proteinuria; | | | | | | Vitamin D deficiency | +--------+ + + + + | 06/22/ | Orders Only | Nephrology | James Pearce MD | Essential (primary) | | 2019 | | | | hypertension | | | | | | (Primary Dx); Anemia | | | | | | of chronic renal | | | | | | failure, stage 4 | | | | | | (severe) ([facility]); CKD | | | | | | (chronic kidney | | | | | | disease), stage IV | | | | | | ([facility]); Nephrotic | | | | | | range proteinuria | +--------+ + + + + | 06/22/ | Documentati | Nephrology | Luis, | Results (06/17/19) | | 2019 | on | | Maninder Suarez | | | | | | Alarm Technician | | +--------+ + + + + [...] 2020 | Visit | | [address] [facility] | | | | | | [address] [place] | | | | | | [address] | | | | | | | | +--------+---------+ + + + + + + + + | Health Maintenance | Due Date | Last Done | Comments | + + + + + | Vaccine: | | | | | Pneumococcal 66 | 3 | | | | (1 [...] + + from Last 3 Months Results External Lab: PTH, Intact (06/17/2019) + [...] | | + +--------+ +--------+ +---------+--------+ | [facility] | IHS | [id number] | | | | Indemn | | SERVICE | YELLOW | | 018-Pr | | | ity | | | HAWK | | esent | | | | + +--------+ +--------+ +---------+--------+ | [employer] | MODA | [id number] | 01/28/20 | [phone] | | Medica | | MEDICAID HMO | HEALTH | | 18-Pre | 1 | | id | | | MDCD | | sent | | | | | | [place]MO [place] | | | | | | + +--------+ +--------+ +---------+--------+ | [facility] | IHS | [id number] | | | | Indemn | | SERVICE | YELLOW | | 018-Pr | | | ity | | | HAWK | | esent | | | | + +--------+ +--------+ +---------+--------+ | [employer] | MODA | [id number] | 02/23/20 | [phone] | | Medica | | MEDICAID HMO [...] Person | Self | [birth year] | [address] | | | al/Fam | | 1954 | [phone] | [place] | | | jeni | | | 4 (Home) | [address] | + +--------+ +--------+ + + | Maria Ines Martin | Person | Self | [birth year] | [address] | | | al/Fam | | 1955 | [phone] | [address] [place] | | | jeni | | | 2 (Home) | [address] | + +--------+ +--------+ + + Advance Directives + + + + + | Type | Date Recorded | Patient | Explanation | | | | Outpatient Therapist | | + + + + + | Power of | | | | | Client Engagement Specialist | | | | + + + + + | Advance | | | | | Directive | | | | + + + + +
--- OUTSIDE RECORDS SUMMARY | ~2019-06-25 | XMS | Clinical Summary ---
Demographics + + + | Address | [address] | | | [place] [address] | + + + | Home Phone | | + + + | Preferred Language | Unknown | + + + | Marital Status | | + + + | Episcopalian Affiliation | 1041 | + + + | Race | Unknown | + + + | Ethnic Group | Unknown | + + + Author + + + | Author | [facility] | | | and [place] | + + + | Organization | [facility] | | | [...] Team Providers + +------+ + | Care Senior Technical Architect Name | Role | Phone | + [...] + + | Overview: Echocardiogram done at [facility] on 01/28/18 | | shows overall left [...] IV | | | | | | ([facility]) (Primary Dx); | | | | | | Anemia of chronic | | | | | | renal failure, stage | | | | | | 4 (severe) ([facility]); | | | | | | Essential [...] insulin | | | | | | ([facility]); Secondary | | | | | | hyperparathyroidism | | | | | | ([facility]); Nephrotic | | | | [...] | | | | | | (severe) ([facility]); CKD | | | | | | (chronic kidney | | | | | | disease), stage IV | | | | | | ([facility]); Nephrotic | | | | | | range proteinuria | +--------+ + + + + | 06/22/ | Documentati | Nephrology | Luis, | Results (06/17/19) | | 2019 | on | | Maninder Suarez | | | | | | Open Pit Quarry Supervisor | | +--------+ + + + + [...] 2020 | Visit | | [address] [facility] | | | | | | [address] [place] | | | | | | [address] | | | | | | | [...] | | + +--------+ +--------+ +---------+--------+ | [facility] | IHS | [id number] | | | | Indemn | | SERVICE | YELLOW | | 018-Pr | | | ity | | | HAWK | | esent | | | | + +--------+ +--------+ +---------+--------+ | [employer] | MODA | [id number] | 01/28/20 | [phone] | | Medica | | MEDICAID HMO | HEALTH | | 18-Pre | 1 | | id | | | MDCD | | sent | | | | | | [place] | | | | | | + +--------+ +--------+ +---------+--------+ | [facility] | IHS | [id number] | | | | Indemn | | SERVICE | YELLOW | | 018-Pr | | | ity | | | HAWK | | esent | | | | + +--------+ +--------+ +---------+--------+ | [employer] | MODA | [id number] | 02/23/20 | [phone] | | Medica | | MEDICAID HMO [...] Person | Self | [birth year] | [address] | | | al/Fam | | 1954 | [phone] | [place] | | | jeni | | | 4 (Home) | [address] | + +--------+ +--------+ + + | Maria Ines Martin | Person | Self | [birth year] | [address] | | | al/Fam | | 1955 | [phone] | [address] [place] | | | jeni | | | 2 (Home) | [address] | + +--------+ +--------+ + + Advance Directives + + + + + | Type | Date Recorded | Patient | Explanation | | | | Office Rental Clerk | | + + + + + | Power of | | | | | Static Balancer | | | | + + + + + | Advance | | | | | Directive | | | | + + + + +
--- OUTSIDE RECORDS SUMMARY | ~2019-06-25 | XMS | Encounter Summary ---
Demographics + + + | Address | [address] | | | [place] [address] | + + + | Home Phone | | + + + | Preferred Language | Unknown | + + + | Marital Status | | + + + | Cheondoism Affiliation | 1041 | + + + | Race | Unknown | + + + | Ethnic Group | Unknown | + + + Author + + + | Author | [facility] | | | and [place] | + + + | Organization | [facility] | | | [...] Providers + +------+ + | Care Manager Engine Name | Role | Phone | + [...] [place], | | | | | | [place] [address] | | | | | | [phone] | | | +--------+ + + + [...] 2020 | Visit | | [address] [facility] | | | | | | [address] [place], [place] | | | | | | [address] | | | | | | | | +--------+---------+ + + + documented as of this encounter Visit Diagnoses Not on filedocumented in this encounter"
--- OUTSIDE RECORDS SUMMARY | ~2019-06-25 | XMS | Encounter Summary ---
Demographics + + + | Address | [address] | | | [place] [address] | + + + | Home Phone | | + + + | Preferred Language | Unknown | + + + | Marital Status | | + + + | Samaritan Affiliation | 1041 | + + + | Race | Unknown | + + + | Ethnic Group | Unknown | + + + Author + + + | Author | [facility] | | | and [place] | + + + | Organization | [facility] | | | and [...] Team Providers + +------+ + | Care Shift Production Supervisor Name | Role | Phone | + +------+ + | Bernadette Armendariz PA-C | PCP | | + +------+ + Encounter Details +--------+ + + + + | Date | Type | Department | Care Team | Description | +--------+ + + + + | 08/04/ | Orders Only | [facility] | Brynn Crawford MD | | | 2019 | | CARDIOLOGY [place] | [address] | | | | | [address] | [place] [address] | | | | | [place], [place] | [phone] | | | | | [address] | | | | | | [phone] | | | +--------+ + + + [...] 2020 | Visit | | [address] [facility] | | | | | | [address] [place] | | | | | | [address] | | | | | | | [...]
--- OUTSIDE RECORDS SUMMARY | ~2019-06-25 | XMS | Encounter Summary ---
Demographics + + + | Address | [address] | | | [place] [address] | + + + | Home Phone [...] Team Providers + +------+ + | Care Clinical Services Professional Name | Role | Phone | + +------+ + | Nathalie Castorena | PCP | | + +------+ + Encounter Details +--------+ + + + + | Date | Type | Department | Care Team | Description | +--------+ + + + + | 03/10/ | Orders Only | [facility] | James Pearce MD | | | 2018 | | NEPHROLOGY [place] | [address] [place] | | | | | [address] [place] | [address] [place], [place] | | | | | [address] [place], [place] | [address] | | | | | [address] | | | | | | [phone] | | | +--------+ + + + [...] 2020 | Visit | | [address] [facility] | | | | | | [address] [place] | | | | | | [address] | | | | | | | | +--------+---------+ + + + documented as of this encounter Visit Diagnoses Not on filedocumented in this encounter"
--- OUTSIDE RECORDS SUMMARY | ~2019-06-25 | XMS | Encounter Summary ---
Demographics + + + | Address | [address] | | | [place] [address] | + + + | Home Phone | | + + + | Preferred Language | Unknown | + + + | Marital Status | | + + + | Samaritan Affiliation | 1041 | + + + | Race | Unknown | + + + | Ethnic Group | Unknown | + + + Author + + + | Author | [facility] | | | and [place] | + + + | Organization | [facility] | | | [...] Team Providers + +------+ + | Care Psychiatric Arnp Name | Role | Phone | + +------+ + PCP | Unavailable | + +------+ + Encounter Details +--------+ + + + + | Date | Type | Department | Care Team | Description | +--------+ + + + + | 10/23/ | Hospital | [facility] | Cal Godinez, | | | 2000 | Encounter | MED CTR XRAY [address] | MD [address] [facility] | | | | | [place] | [place], [place] | | | | | [place] [address] | [id number] | | | | | [phone] | | | +--------+ + + + [...] 2020 | Visit | | [address] [facility] | | | | | | [address] [place] | | | | | | [address] | | | | | | | | +--------+---------+ + + + documented as of this encounter Visit Diagnoses Not on filedocumented in this encounter"
--- OUTSIDE RECORDS SUMMARY | ~2019-06-25 | XMS | Encounter Summary ---
Demographics + + + | Address | [address] | | | [place] [address] | + + + | Home Phone | | + + + | Preferred Language | Unknown | + + + | Marital Status | | + + + | Episcopalian Affiliation | 1041 | + + + | Race | Unknown | + + + | Ethnic Group | Unknown | + + + Author + + + | Author | [facility] | | | and [place] | + + + | Organization | [facility] | | | [...] Team Providers + +------+ + | Care Grey Goods Marker Name | Role | Phone | + +------+ + | Bernadette Armendariz PA-C | PCP | | + +------+ + Encounter Details +--------+ + + + + | Date | Type | Department | Care Team | Description | +--------+ + + + + | 03/11/ | Orders Only | [facility] | James eParce MD | Essential | | 2019 | | NEPHROLOGY [place] | [address] [place] | hypertension | | | | [address] | [address] [place], [place] | (Primary Dx); Type [address] | | | | [address] [place] [address] | [address] | diabetes mellitus | | | | [place], [place] | | with complication, | | | | [address] | | with long-term | | | | [phone] | | current use of | | [...] 2019 | Visit | | [address] [facility] | | | | | | [address] [place], [place] | | | | | | [address] | | | | | | | [...] type | | | | | | ([facility]) | | + +------+--------+ + + documented [...]
--- OUTSIDE RECORDS SUMMARY | ~2019-06-25 | XMS | Encounter Summary ---
Demographics + + + | Address | [address] | | | [place] [address] | + + + | Home Phone | | + + + | Preferred Language | Unknown | + + + | Marital Status | | + + + | Advent Affiliation | [id number] | + + + | Race | Unknown | + + + | Ethnic Group | Unknown | + + + Author + + + | Author | [facility] | | | and [place] | + + + | Organization | [facility] | | [...] Team Providers + +------+ + | Care Pizza Chef Name | Role | Phone | + [...] Mahin BRAVOSTEPHENANDRIY | | | | | [place], [place] | [address] | | | | | [address] | | | | | | [phone] | | | +--------+ + + + [...] 2020 | Visit | | [address] [facility] | | | | | | [address] [place] | | | | | | [address] | | | | | | | [...] MV A Brock: 0.82 m/s MV Dec Callaway: 7.33 | | | m/s2 MV DecT: [...] | | | TR Vmax: 3.14 m/s Bus Monitor: ZORA Authenticated by: | | | TAMARA MAHONEY MD Report Date/Time: 01-28-2018 18:52:56 | | + + + + + | Procedure Note | + + | Madhu, Rad Conversion - 03/12/2019 5:38 PM PDT Patient Name: Jl Maritn of | | : 1955 Performing Physician: [...] cmLVIDd: 5.42 cmLVPWd: 0.88 cmLVOT Area: 3.30 [id number] Diam: | | 2.05 cm%FS: 19.68 %EF(Teich): [...] (A-L): 25.38 ml/m2LAAs | | A2C: 14.99 [id number] A-L A2C: 42.95 mlLALs A2C: 4.44 cmLAAs A4C: 15.41 [id number] | | A-L A4C: 43.34 mlLALs A4C: 4.65 cmRAAs: 12.68 [id number] A-L: 35.28 mlRAESV MOD: | | 33.87 mlRALs: 3.87 cmTAPSE: 1.84 cmAV maxP.42 mmHgAV meanP.69 mmHgAV | | Vmax: 1.36 m/John Vmean: 0.90 m/John VTI: 23.16 cmAVA Vmax: 2.43 cm2AVA (VTI): | | 2.55 [id number] (Vmax): 0.00 cm2/m2AVAI (VTI): 0.00 cm2/m2LVOT maxP.01 mmHgLVOT | | meanP.12 mmHgLVSI Dopp: 34.03 ml/m2LVSV Dopp: 59.22 mlLVOT Vmax: 1.00 | | m/sLVOT Vmean: 0.69 m/sLVOT VTI: 17.90 cmMV A Brock: 0.82 m/sMV Dec Callaway: 7.33 | | m/s2MV DecT: 140.20 msMV E Brock: 1.02 m/sMV E/A Ratio: 1.25MV PHT: 40.65 msMVA By | | PHT: 5.41 [id number] e': 0.03 m/sSeptal E/e': 29.00Lateral e': 0.04 m/sLateral | | E/e': 24.10RAP: 10 mmHgRVSP: 49.46 mmHgTR maxP.46 mmHgTR Vmax: 3.14 m/s | | Bus Monitor: ZORAAuthenticated by: Kiko BUTLER Date/Time: 01-28-2018 18:52:56 [...] A Brock: 0.82 m/s | |MV Dec Callaway: 7.33 m/s2 | |MV DecT: 140.20 ms [...] |TR Vmax: 3.14 m/s | | | |Bus Monitor: DBS | |Authenticated by: TAMARA MAHONEY MD [...]
--- OUTSIDE RECORDS SUMMARY | ~2019-06-25 | XMS | Encounter Summary ---
Demographics + + + | Address | [address] | | | [place] [address] | + + + | Home Phone | | + + + | Preferred Language | Unknown | + + + | Marital Status | | + + + | Jew Affiliation | 1041 | + + + | Race | Unknown | + + + | Ethnic Group | Unknown | + + + Author + + + | Author | [facility] | | | and [place] | + + + | Organization | [facility] | | | [...] Team Providers + +------+ + | Care Laboratory Cureman Name | Role | Phone | + +------+ + | Bernadette Armendariz PA-C | PCP | | + +------+ + Encounter Details +--------+ + + + + | Date | Type | Department | Care Team | Description | +--------+ + + + + | 08/05/ | Hospital | [facility] | Conversion | CAD in iliamna | | 2019 - | Encounter | [facility] | Transaction, | artery; Congestive | | | | CARE FLOOR [address] | Provider Unknown | heart failure, | | | | [address] | [phone] | unspecified HF | | 2019 | | [place], [place] | | chronicity, | | | | [phone] | Brynn Crawford MD | unspecified heart | | | | [phone] | [address] | failure type (HCC); | | | | | [place] [address] | Precordial pain; | | | | | [phone] | Ischemic | | | | | | cardiomyopathy | +--------+ + + + + Social [...] + + + | Blood Pressure | 117/55 | 08/11/2018 12:58 PM | | | | | PST | | + + + + + | Pulse | 67 | 08/11/2018 12:58 PM | | | | | PST | | + + + + + | Temperature | 36.6 C (97.8 F) | 08/11/2018 12:58 PM | | | | | PST | | + + + + + | Respiratory Rate | 18 | 08/11/2018 12:58 PM | | | | | PST | | + + + + + | Oxygen Saturation | - | - | | + + + + + | Inhaled Oxygen | - | - | | | Concentration | | | | + + + + + | Weight | 87.3 kg (192 lb 7.4 | 08/11/2018 12:58 PM | | | | oz) | PST | | + + + + + | Height | 160 cm (5' 2.99") | 08/11/2018 12:58 PM | | | | | PST | | + + + + + | Body Mass Index | 34.1 | 08/11/2018 12:58 PM | | | | | PST | | + + + + + documented in this encounter Discharge Summaries Gustavo Castorena MD - 08/10/2018 9:42 AM PST Discharge Summaries by Gustavo Castorena MD at 08/10/18941 Author: Gustavo Castorena MD Service: Internal Medicine Author Type: Physician Filed: 08/11/181929 Date of Service: 08/10/18941 Status: Signed Climatologist: Gustavo Castorena MD (Physician) [facility] Service: Hospitalist Physician Discharge Summary Patient ID: Maria Ines Martin 1955 63 y.o. Admit date: 08/05/2018 Discharge date: 08/11/2018 Admitting Physician: Brynn Crawford MD Discharge Physician: Gustavo Castorena MD Consultants: Treatment Team: Admitting Provider: Brynn Crawford MD Primary Discharge Diagnoses: Principal Problem: Acute renal failure superimposed on stage 4 chronic kidney disease (HCC) Active Problems: Essential hypertension Type 2 diabetes mellitus with complication, with long-term current use of insulin (HCC) Non-ischemic cardiomyopathy (HCC) Hospital Course: Ms. Maria Ines Martin is a 63 yo F with PMHx of Cardiomyopathy of unknown etiology diagnosed last J (susepct meth induced). She presented from outpatient for scheduled cardiac cath with Dr Anibal Crawford. She had routine labs drawn which showed hyperkalemia to 6.4. She was notified of results but was asymptomatic. Labs were re-drawn on arrival and repeat K was 5.8. She is as ymptomatic. Cardiology decided to forgo scheduled cath given acute renal failure. Hospitalis t and nephrology were consulted. Labs: Na 142, K 5.8, Ch 112, CO2 19, BUN 64, Cr 2.6, Glu 111. EKG: Sinus margret, no ST changes, no T wave peaks or inversions. She was taking Torsemide, and lisinopril at home, and chronically On doxy for toe infectio n. She was given cocktail of bicarb, ca+, insulin. Held her acei, lasix. Was started on ivf, with bicarb. Renal function improved. Renal usg = no hydronephrosis. Dr Rivera mentioned that likely this is not GRACIELA, and more likely CKD. So Dr Crawford took pa jarad for cath cardiac = No significant coronary artery disease, Elevated LVEDP, 23 mmHg Her BP was elevated after saline resuscitation. . But improved with addition of HTN meds. She was given iv iron for iron def anemia. Needs outpt C scope. D/w patient. Renal Duplex was -ve for Renal art stenosis. But Dr Rivera still recommended avoid ACEI/AR B. Her BP controlled on BB, hydralazine. she will f/u with Dr Pearce in clinic for further management. Past Medical History: Past Medical History Diagnosis Date Acute renal failure (HCC) 08/05/2018 GRACIELA (acute kidney injury) (HCC) 08/08/2018 Asthma CAD (coronary artery disease) CHF (congestive heart failure) (HCC) CVA (cerebral vascular accident) (HCC) HTN (hypertension) Hyperlipidemia Myocardial infarct (HCC) Type 2 diabetes mellitus (HCC) Past Surgical History Procedure Laterality Date COLONOSCOPY Discharged Condition: Stable for discharge as stated above. Significant Diagnostic Studies: Xr Chest 2 View Result Date: 08/06/2018 No acute cardiopulmonary abnormality. Signed by: Sachin Adam Sign Date/Time: 08/06/2018 11 :43 AM Us Kidneys And Bladder Result Date: 08/06/2018 Normal-sized both kidneys without hydronephrosis. Urinary bladder is incompletely evaluated . Bilateral ureteric jets are not visualized. Signed by: Gregorio Alfaro Sign Date/Time: 08/06/2018 9:09 AM Echo Cardiac Adult Complete Result Date: 08/06/2018 1. Overall left ventricular systolic function is normal with, an EF between 60 - 65 %. 2. T here is moderate concentric left ventricular hypertrophy. 3. Mild mitral regurgitation is pr esent. Discharge Vitals: Vitals: 08/11/18 0303 08/11/18 0524 08/11/18 0739 08/11/18 0825 BP: 121/59 149/80 129/75 119/57 BP Location: Right upper arm Right upper arm Right upper arm Pulse: 72 70 66 Resp: 18 18 20 Temp: 98 F (36.7 C) 98.4 F (36.9 C) 97.9 F (36.6 C) TempSrc: Oral Oral Axillary SpO2: 96% 97% 98% Weight: Height: Discharge Exam: General: ELDERLY LOOKING FEMALE IN BED NO DISTRESS. Psych: Alert and oriented x 3. Calm, cooperative. Cardiovascular: Regular rate and rhythm, no murmurs, no thrills. Normal PMI. Respiratory: Clear to auscultation, no wheezing or crackles, breathing non labored. Gastrointestinal: Soft, non-tender, non-distended, positive bowel sounds. No HSM. Musculoskeletal: +1 edema in bilateral lower extremities. No joint swelling. Skin: Warm and dry, no rashes. PALLOR Neck: No JVD, Trachea midline. Neurological: Non focal. Motor grossly intact. LABS: Recent Labs Lab 08/10/1841608/09/1852108/08/1843908/05/18 1100 WBC 5.46 5.17 5.62 < > 5.91 RBC 3.17* 3.42* 3.56* < > 3.67* HGB 8.9* 9.6* 10.0* < > 10.2* HCT 26.9* 29.0* 30.4* < > 31.1* MCV 84.8 85.0 85.3 < > 84.8 MCH 28.0 28.1 28.0 < > 27.8 MCHC 33.1 33.1 32.8 < > 32.8 RDW 41.1 41.6 41.1 < > 42.0 PLT 148* 161 169 < > 182 MPV 10.3 10.7 10.6 < > 10.3 DIFFTYPE -- -- -- -- AUTOMATED < > = values in this interval not displayed. Recent Labs Lab 08/11/1841908/10/1841608/09/18 05 NA 139 139 140 K 5.0* 4.9 4.8 CL 108 107 108 CO2 23 24 22* BUN 57* 53* 48* CREATININE 2.2* 2.3* 1.8* GLUF 148* 165* 140* No results for input(s): CKTOTAL, TROPONINI, TROPONINT, CKMBINDEX in the last 168 hours. Recent Labs Lab 08/11/18 04208/10/1841608/09/18 05 PHOS 5.2* 4.7 4.5 Recent Labs Lab 08/09/18 0522 08/08/1843908/07/18 044 MG 2.1 1.9 2.0 Invalid input(s): ABG Disposition: HOME Follow up: [facility] [address] [place] [address] [address] [place] [id number] Schedule an appointment as soon as possible for a visit in 1 week Medication List START taking these medications ascorbic acid 500 MG tablet QTY: 30 tablet Refills: 11 Commonly known as: VITAMIN C Take 1 tablet by mouth daily. Cholecalciferol 2000 units Tabs QTY: 90 tablet Refills: 2 Take 2,000 Units by mouth daily. ferrous sulfate (65 FE) 325 (65 FE) MG tablet QTY: 30 tablet Refills: 2 Take 1 tablet by mouth daily with breakfast. hydrALAZINE 25 MG tablet QTY: 270 tablet Refills: 1 Commonly known as: APRESOLINE Take 3 tablets by mouth 3 (three) times daily. traMADol 50 MG tablet QTY: 30 tablet Refills: 0 Commonly known as: ULTRAM Take 1 tablet by mouth every 6 (six) hours as needed. CHANGE how you take these medications carvedilol 3.125 MG tablet QTY: 60 tablet Refills: 2 Commonly known as: COREG Take 1 tablet by mouth 2 (two) times daily with meals. What changed: medication strength how much to take CONTINUE taking these medications acetaminophen 325 MG tablet Refills: 0 Commonly known as: TYLENOL aspirin 81 MG EC tablet Refills: 0 atorvastatin 10 MG tablet Refills: 0 Commonly known as: LIPITOR doxycycline 50 MG tablet Refills: 0 Commonly known as: ADOXA fexofenadine 180 MG tablet Refills: 0 Commonly known as: TIAN insulin glargine 100 UNIT/ML injection Refills: 0 Commonly known as: LANTUS melatonin 1 MG tablet Refills: 0 You might also be taking other medications not listed above. If you have questions about an y of your other medications, talk to the person who prescribed them or your Primary Care Pro vider. STOP taking these medications furosemide 20 MG tablet Commonly known as: LASIX lisinopril 10 MG tablet Commonly known as: ZESTRIL torsemide 20 MG tablet Commonly known as: DEMADEX Where to Get Your Medications You can get these medications from any pharmacy Bring a paper prescription for each of these medications carvedilol 3.125 MG tablet Cholecalciferol 2000 units Tabs ferrous sulfate (65 FE) 325 (65 FE) MG tablet hydrALAZINE 25 MG tablet traMADol 50 MG tablet Information about where to get these medications is not yet available Ask your nurse or doctor about these medications ascorbic acid 500 MG tablet Gustavo Castorena MD 08/11/2018 10:53 AM Discharge took 41 minutes, to include final examination, discussion of admission, and prep aration of prescriptions, instructions for ongoing care, follow up and dictation of summary. documented in this en counter Medications at Time of Discharge + + [...] | 0 | 08/04/19 | | | (ZODAO ODT) 4 mg | | | | [...] | 1 | 03/03/20 | | | (LIPITOR) 10 mg | mouth nightly. | tablet | | 18 | 9 [...] + + + +---------+ + + | MICHELLE 16.8 g | | | 0 | 05/16/20 | | | packet | | | | 18 | 9 | + + + +---------+ + + documented as of this encounter Progress Notes Conversion Transaction, Provider Unknown - 08/11/2018 3:00 PM PSTFormatting of this note m ight be different from the original. Nurse Progress Note by Cinthya Carmen RN at 08/11/18 1500 Author: Cinthya Carmen RN Service: (none) Author Type: Registered Nurse Filed: 08/11/18 1558 Date of Service: 08/11/181499 Status: Signed Climatologist: Cinthya Carmen RN (Registered Nurse) Pt discharge home with family. Pt states understanding about scripts and paperwork. IV d/c. Tele d/c. Family to transport pt home. onver federico Transaction, Provider Unknown - 08/11/2018 12:50 PM PST Case Management by Damaris Canchola RN at 08/11/181249 Author: Damaris Canhcola RN Service: (none) Author Type: Registered Nurse Filed: 08/11/181249 Date of Service: 08/11/181249 Status: Signed Climatologist: Damaris Canchola RN (Registered Nurse) Met with pt and spouse re d/c planning. Pt will return home, son will be transporting home. No needs expressed Kathe Shin Gordon MD - 08/11/2018 10:45 AM PSTFormatting of this note might be different from the or iginal. Progress Notes by Shin Rivera MD at 08/11/18 1045 Author: Shin Rivera MD Service: Nephrology Author Type: Physician Filed: 08/11/18 1050 Date of Service: 08/11/18 1045 Status: Signed Climatologist: Shin Rivera MD (Physician) PCP : [facility] LOS: 5 days Maria Ines Martin is a 63 y.o. woman followed for presumed GRACIELA (? Has CKD) with current hosp italization with ADHF She has cardiac cath 08/08/18 which revealed normal coronary arteries. Renal duplex 08/10/18 revealed no clear evidence of CHARLES. There are no other significant ON events. ROS: As in History of Present Illness. 7 area ROS was done and was otherwise negative. Examination: Vitals: As noted General appearance: Sleeping in bed in no distress. Lungs: Effort fair. No tachypnea or accessory muscle use. CV: RRR. SR on tele. Extremities: No peripheral edema or digital cyanosis Skin: No rash, lesions or ulcers Neurologic: Sleeping. The following portions of the patient's history were reviewed and updated as appropriate: l aboratory data, radiologic studies, allergies, current medications, and problem list. Past m edical, surgical, social, and family history was also reviewed as appropriate. Past history summarized as above. Vital Signs: BP 119/57 | Pulse 66 | Temp 97.9 F (36.6 C) (Axillary) | Resp 20 | Ht 1.6 m (5' 2.9 9") | Wt 87.3 kg (192 lb 7.4 oz) | SpO2 98% | ? No | BMI 34.10 kg/m Intake/Output Summary (Last 24 hours) at 08/11/18 1045 Last data filed at 08/11/18 0523 Gross per 24 hour Intake 805 ml Output 0 ml Net 805 ml Data evaluation: Lab Results Component Value Date BUN 57 (H) 08/11/2018 CREATININE 2.2 (H) 08/11/2018 EGFR 23 (L) 08/11/2018 NA 139 08/11/2018 K 5.0 (H) 08/11/2018 CL 108 08/11/2018 CO2 23 08/11/2018 CA 7.6 (L) 08/11/2018 PHOS 5.2 (H) 08/11/2018 MG 2.1 08/09/2018 ALB 2.1 (L) 08/11/2018 HGB 8.9 (L) 08/10/2018 Lab Results Component Value Date HGB 8.9 (L) 08/10/2018 FERRITIN 66 08/08/2018 LABIRON 24 08/08/2018 Lab Results Component Value Date LDH 255 (H) 08/08/2018 Lab Results Component Value Date URICACID 6.6 08/08/2018 Lab Results Component Value Date PTHINTACT 126.9 (H) 08/08/2018 Lab Results Component Value Date ANIONGAP 13 08/11/2018 Lab Results Component Value Date LABPROT 4.982 08/07/2018 MALBRX 3,125 (H) 08/07/2018 U/A: Lab Results Component Value Date CLARITYU HAZY 08/06/2018 LEUKOCYTESUR NEGATIVE 08/06/2018 NITRITE NEGATIVE 08/06/2018 UROBILINOGEN NORMAL 08/06/2018 UPRO >500 (A) 08/06/2018 PHUR 5.0 08/06/2018 BLOODU SMALL (A) 08/06/2018 KETONES NEGATIVE 08/06/2018 BILIRUBINUR NEGATIVE 08/06/2018 GLUCOSEU 50 (A) 08/06/2018 Last 3 Troponin: No results found for: TROPONINI Xr Chest 2 View 08/06/2018 showed no acute cardiopulmonary abnormality. Us Kidneys And Bladder 08/06/2018 showed Normal-sized both kidneys without hydronephrosis. U rinary bladder was incompletely evaluated. Echo 08/06/2018 showed EF between 60 - 65 %. Modderate concentric left ventricular hypertrophy. Assessment and Recommendations: 1. Baseline CKD stage G4A3 (diabetic nephropathy) with baseline creatinine of 1.8 and eGFR of 29 from 01/2018 and significant proteinuria. 2. Recurrent acute on chronic renal failure after initiation of ARB 08/09/18 3. Non ischemic cardiomyopathy with normal coronary arteries on cardiac cath from 08/08/18 4. Labile hypertension 5. Longstanding DM2 6. Iron deficiency anemia 7. Hyperparathyroidism 8. Vitamin D deficiency She is hemodynamically stable with no fever/tachycardia/bradycardia/hypotension or severe h ypertension/hypoxia at rest. She did not have orthostatic hypotension but she likely has rel ative hypotension which has likely contributed to rise in creatinine and superimposed GRACIELA. Creatinine is lower after holding losartan and I suspect she may not be able to tolerate an y CHARLES inhibition (had same rise in creatinine/K after starting lisinopril). CKD was initially stable with no rise in creatinine after cardiac cath. She is euvolemic. Anemia is moderate. Plan: Continue PO Fe/Vitamin C/Vitamin D supplementation. Age appropriate GI work up for Fe deficiency anemia. Strict low K diet. From my perspective she may be discharged and she should not be given any CHARLES inhibitors . She should follow up with Dr. Pearce as outpatient given baseline CKD and now with superimp osed GRACIELA. Diet 2 gm Na, 1 gm K, 1 gm PO4, 1 gm/kg protein diet. Dose all meds for an eGFR of less than 30 ml/min/1.73 m2. No use of NSAIDs (including BRAY 2 inhibitors). No use of Magnesium or aluminum containing antacids. No use of Magnesium or phosphorus containing laxatives SHIN RIVERA MD 08/11/2018 Portions of my previous notes have been carried over for continuity of care. Plan of care was discussed with Dr. Castorena She was seen earlier in the day and charting was completed later after rounds. Dictation software, [employer], was used which may contain error for similar sounding words nabor n after review. Personal communication is requested for any clarification. Prognosis is guarded in view of multiple comorbid illnesses ascorbic acid 500 mg Oral Daily aspirin 81 mg Oral Daily with breakfast atorvastatin 10 mg Oral Nightly carvedilol 3.125 mg Oral BID cholecalciferol 2,000 Units Oral Daily enoxaparin 30 mg Subcutaneous Daily ferrous sulfate (65 FE) 65 mg of iron Oral Daily with breakfast hydrALAZINE 75 mg Oral TID insulin glargine 10 Units Subcutaneous Nightly insulin lispro (human) 0-10 Units Subcutaneous TID AC insulin lispro (human) 0-5 Units Subcutaneous Nightly traZODone 50 mg Oral Nightly dextrose onversion Transactio n, Provider Unknown - 08/11/2018 6:15 AM PST Nurse Progress Note by Francy Beckford RN at 08/11/18614 Author: Francy Beckford RN Service: (none) Author Type: Registered Nurse Filed: 08/11/18615 Date of Service: 08/11/18614 Status: Signed Climatologist: Francy Beckford RN (Registered Nurse) VSS. Patient c/o anxiety, given PRN x 1 (see MAR). Pt c/o back pain, rated it 5/10, but d id not want any pain medication. Otherwise, hourly rounding was uneventful. Chart check complete. Francy Beckford RN onver federico Transaction, Provider Unknown - 08/10/2018 5:48 PM PST Nurse Progress Note by Kaia Penaloza RN at 08/10/181747 Author: Kaia Penaloza RN Service: (none) Author Type: Registered Nurse Filed: 08/10/181751 Date of Service: 08/10/181747 Status: Signed Climatologist: Kaia Penaloza RN (Registered Nurse) Pt down for renal US in the AM. After coming up pt resting in room. Treated for anxiety x2 and back pain x2. Family at bedside throughout the day. Pt voiding QS. VSS. Hourly rounding otherwise unremarkable. End of shift chart review complete. Kaia Penaloza RN, BSN onver federico Transaction, Provider Unknown - 08/10/2018 1:16 PM PST Progress Notes by Teena Encinas RD at 08/10/18 0116 Author: Teena Encinas RD Service: (none) Author Type: Registered Dietitian Filed: 08/10/18 8140 Date of Service: 08/10/186 Status: Signed Climatologist: Teena Encinas RD (Registered Dietitian) 08/10/18 8330 Subjective Timepoint Follow up (diet education) Food and Nutrition Knowledge Area(s) and Level of Knowledge In to see pt for renal cardiac diet. Pt K+ WNL at this time but hx hyperkalemia. Discussed high potassium foods and provided list from [facility]. Discussed th at she does not need to limit at this time with ARF and WNL K+ but may need to in the future . Provided low sodium handout from [facility] and discussed. Pt reports that she is discharging tod ay. Will follow per protocol. Teena Encinas MS, RD Shin Gordon MD - 08/10/2018 12:09 PM PSTFormatting of this note might be different from the or iginal. Progress Notes by Shin Rivera MD at 08/10/18 1209 Author: Shin Rivera MD Service: Nephrology Author Type: Physician Filed: 08/10/18 1210 Date of Service: 08/10/18 1209 Status: Signed Climatologist: Shin Rivera MD (Physician) PCP : [facility] LOS: 4 days Maria Ines Martin is a 63 y.o. woman followed for presumed GRACIELA (? Has CKD) with current hosp italization with ADHF She has cardiac cath 08/08/18 which revealed normal coronary arteries. She is seen with her Bryan. She feels 'OK' today and has no fever, chills sweats, nausea, vomiting or diarrhea, shortne ss of breath, chest pain, cough. She apparently had an episode of tachycardia with HR in the 160's ON. She is nonoliguric. ROS: As in History of Present Illness. 7 area ROS was done and was otherwise negative. Examination: Vitals: As noted General appearance: NAD, conversant. Sitting up in bed in no distress. Neck: FROM, supple. + JVD. Lungs: Reduced AE at bases. Effort fair. CV: RRR, no MRGs; normal carotid upstroke and amplitude without bruits Abdomen: Soft, non-tender; no masses or HSM Extremities: No peripheral edema or digital cyanosis Skin: No rash, lesions or ulcers Psych: leasant demeanor Neurologic: Alert and oriented to person, place and time. Gait not tested. Speech fluent. The following portions of the patient's history were reviewed and updated as appropriate: l aboratory data, radiologic studies, allergies, current medications, and problem list. Past m edical, surgical, social, and family history was also reviewed as appropriate. Past history summarized as above. Vital Signs: BP 115/56 (BP Location: Right upper arm) | Pulse 66 | Temp 97.8 F (36.6 C) (Axillary) | Resp 20 | Ht 1.6 m (5' 2.99") | Wt 87.3 kg (192 lb 7.4 oz) | SpO2 94% | Breastfeedin g? No | BMI 34.10 kg/m Intake/Output Summary (Last 24 hours) at 08/10/18 1209 Last data filed at 08/10/18 1204 Gross per 24 hour Intake 355 ml Output 1100 ml Net -745 ml Data evaluation: Lab Results Component Value Date BUN 53 (H) 08/10/2018 CREATININE 2.3 (H) 08/10/2018 EGFR 22 (L) 08/10/2018 NA 139 08/10/2018 K 4.9 08/10/2018 CL 107 08/10/2018 CO2 24 08/10/2018 CA 7.7 (L) 08/10/2018 PHOS 4.7 08/10/2018 MG 2.1 08/09/2018 ALB 2.1 (L) 08/10/2018 HGB 8.9 (L) 08/10/2018 Lab Results Component Value Date HGB 8.9 (L) 08/10/2018 FERRITIN 66 08/08/2018 LABIRON 24 08/08/2018 Lab Results Component Value Date LDH 255 (H) 08/08/2018 Lab Results Component Value Date URICACID 6.6 08/08/2018 Lab Results Component Value Date PTHINTACT 126.9 (H) 08/08/2018 Lab Results Component Value Date ANIONGAP 13 08/10/2018 Lab Results Component Value Date LABPROT 4.982 08/07/2018 MALBRX 3,125 (H) 08/07/2018 U/A: Lab Results Component Value Date CLARITYU HAZY 08/06/2018 LEUKOCYTESUR NEGATIVE 08/06/2018 NITRITE NEGATIVE 08/06/2018 UROBILINOGEN NORMAL 08/06/2018 UPRO >500 (A) 08/06/2018 PHUR 5.0 08/06/2018 BLOODU SMALL (A) 08/06/2018 KETONES NEGATIVE 08/06/2018 BILIRUBINUR NEGATIVE 08/06/2018 GLUCOSEU 50 (A) 08/06/2018 Last 3 Troponin: No results found for: TROPONINI Xr Chest 2 View 08/06/2018 showed no acute cardiopulmonary abnormality. Us Kidneys And Bladder 08/06/2018 showed Normal-sized both kidneys without hydronephrosis. U rinary bladder was incompletely evaluated. Echo 08/06/2018 showed EF between 60 - 65 %. Modderate concentric left ventricular hypertrophy. Assessment and Recommendations: 1. Baseline CKD stage G4A3 (diabetic nephropathy) with baseline creatinine of 1.8 and eGFR of 29 from 01/2018 and significant proteinuria. 2. Recurrent acute on chronic renal failure after initiation of ARB 08/09/18 3. Non ischemic cardiomyopathy with normal coronary arteries on cardiac cath from 08/08/18 4. Labile hypertension 5. Longstanding DM2 6. Iron deficiency anemia 7. Hyperparathyroidism 8. Vitamin D deficiency She is hemodynamically stable with no fever/tachycardia/bradycardia/hypotension or severe h ypertension/hypoxia at rest. She does not have orthostatic hypotension today but she likely has relative hypotension which has likely contributed to rise in creatinine and superimposed GRACIELA. CKD was initially stable with no rise in creatinine after cardiac cath. She is euvolemic. Anemia is moderate. Plan: Hold discharge today. Hold amlodipine today. Hold losartan today. FU renal duplex (done but report pending). Continue PO Fe/Vitamin C/Vitamin D supplementation. Age appropriate GI work up for Fe deficiency anemia. Strict low K diet. Diet 2 gm Na, 1 gm K, 1 gm PO4, 1 gm/kg protein diet. Dose all meds for an eGFR of less than 30 ml/min/1.73 m2. No use of NSAIDs (including BRAY 2 inhibitors). No use of Magnesium or aluminum containing antacids. No use of Magnesium or phosphorus containing laxatives Daily weights. SHIN RIVERA MD 08/10/2018 Portions of my previous notes have been carried over for continuity of care. Plan of care was discussed with Dr. Castorena. She was seen earlier in the day and charting was completed later after rounds. Dictation software, [employer], was used which may contain error for similar sounding words nabor n after review. Personal communication is requested for any clarification. Prognosis is guarded in view of multiple comorbid illnesses ascorbic acid 500 mg Oral Daily aspirin 81 mg Oral Daily with breakfast atorvastatin 10 mg Oral Nightly carvedilol 3.125 mg Oral BID WC cholecalciferol 2,000 Units Oral Daily enoxaparin 30 mg Subcutaneous Daily ferrous sulfate (65 FE) 65 mg of iron Oral Daily with breakfast hydrALAZINE 75 mg Oral TID insulin glargine 10 Units Subcutaneous Nightly insulin lispro (human) 0-10 Units Subcutaneous TID AC insulin lispro (human) 0-5 Units Subcutaneous Nightly traZODone 50 mg Oral Nightly dextrose Gustavo Wharton MD - 08/10/2018 9:52 AM PST Progress Notes by Gustavo Castorena MD at 08/10/18951 Author: Gustavo Castorena MD Service: Internal Medicine Author Type: Physician Filed: 08/10/18 0957 Date of Service: 08/10/18951 Status: Signed Climatologist: Gustavo Castorena MD (Physician) [facility] Service: Hospitalist Progress Note Hospital Day: LOS: 4 days SUBJECTIVE Still c/o back pain. 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 She presented from outpatient for scheduled cardiac cath with Dr. Crawford. She had routine labs drawn which showed hyperkalemia to 6.4. She was notified of results but was asymptomatic. Labs were re-drawn on arrival and repeat K was 5.8. She is asymptomatic. Cardiology decided to forgo scheduled cath given acute renal failure. Hospital ist and nephrology were consulted. Labs: Na 142, K 5.8, Ch 112, CO2 19, BUN 64, Cr 2.6, Glu 111. EKG: Sinus margret, no ST changes, no T wave peaks or inversions. Home medications - patient taking torsemide 10 mg QAM and 5 mg QPM, which may have precipit ated renal failure. She was also recently started on lisinopril in January when diagnosis was m rivka. She was given cocktail of bicarb, ca+, insulin. Held her acei, lasix. Was started on ivf, with bicarb. Renal function improved. Renal usg = no hydronephrosis. Patient Summary: Scheduled Medications ascorbic acid 500 mg Oral Daily aspirin 81 mg Oral Daily with breakfast atorvastatin 10 mg Oral Nightly carvedilol 3.125 mg Oral BID WC cholecalciferol 2,000 Units Oral Daily enoxaparin 30 mg Subcutaneous Daily ferrous sulfate (65 FE) 65 mg of iron Oral Daily with breakfast hydrALAZINE 75 mg Oral TID insulin glargine 10 Units Subcutaneous Nightly insulin lispro (human) 0-10 Units Subcutaneous TID AC insulin lispro (human) 0-5 Units Subcutaneous Nightly traZODone 50 mg Oral Nightly Continuous Infusions dextrose PRN Medications acetaminophen, albuterol, dextrose, dextrose, dextrose, fentaNYL, glucagon, glucagon, hydrO XYzine, LORazepam, melatonin, midazolam, traMADol OBJECTIVE Vital Signs: BP 142/65 | Pulse 67 | Temp 96.9 F (36.1 C) (Axillary) | Resp 20 | Ht 1.6 m (5' 2.9 9") | Wt 87.3 kg (192 lb 7.4 oz) | SpO2 99% | ? No | BMI 34.10 kg/m Patient Vitals for the past 24 hrs: BP Temp Temp src Pulse Resp SpO2 08/10/18 0821 142/65 96.9 F (36.1 C) Axillary 67 20 99 % 08/10/18 0817 142/65 - - 66 - - 08/10/18 0602 126/60 - - - - - 08/10/18 0309 132/60 97.6 F (36.4 C) Oral 66 18 94 % 08/09/18 2308 124/60 98.1 F (36.7 C) Oral 63 18 100 % 08/09/18 2123 143/68 - - 67 - - 08/09/18 1931 119/58 98.1 F (36.7 C) Oral 68 18 98 % 08/09/18 1607 137/63 98.1 F (36.7 C) Oral 67 18 95 % 08/09/18 1151 137/63 97.8 F (36.6 C) Axillary 72 16 98 % Intake/Output Summary (Last 24 hours) at 08/10/18 0957 Last data filed at 08/09/182025 Gross per 24 hour Intake 355 ml Output 900 ml Net -545 ml Physical Exam: Constitutional: PLEASANT .OBESE FEMALE IN BED SLEEPING BUT EASILY WOKEN. HEENT: Neck supple, no JVD, non icteric sclera. Cardiovascular: Normal rate, regular rhythm, normal heart sounds with S1 and S2, Exam re veals Pulmonary/Chest: Effort normal and breath sounds normal. No stridor. No respiratory distres s. no wheezes. no rales. Abdominal: Soft. Bowel sounds are normal. exhibits no distension and no palpable mass. Ther e is no tenderness. There is no rebound and no guarding. Extremeties/Musculoskeletal: Normal range of motion.exhibits no tenderness. exhibits +1 ed miya. Neurological: Alert and oriented to person, place, and time. Perrla Non focal Skin: Skin is warm and dry. PALLOR DATA Recent Labs Lab 08/10/1841608/09/1852108/08/1843908/05/18 1100 WBC 5.46 5.17 5.62 < > 5.91 RBC 3.17* 3.42* 3.56* < > 3.67* HGB 8.9* 9.6* 10.0* < > 10.2* HCT 26.9* 29.0* 30.4* < > 31.1* MCV 84.8 85.0 85.3 < > 84.8 MCH 28.0 28.1 28.0 < > 27.8 MCHC 33.1 33.1 32.8 < > 32.8 RDW 41.1 41.6 41.1 < > 42.0 PLT 148* 161 169 < > 182 MPV 10.3 10.7 10.6 < > 10.3 DIFFTYPE -- -- -- -- AUTOMATED < > = values in this interval not displayed. Recent Labs Lab 08/10/1841608/09/1852108/08/18439 NA 139 140 143 K 4.9 4.8 5.0* CL 107 108 110* CO2 24 22* 24 BUN 53* 48* 47* CREATININE 2.3* 1.8* 1.8* GLUF 165* 140* 142* No results for input(s): CKTOTAL, TROPONINI, TROPONINT, CKMBINDEX in the last 168 hours. Recent Labs Lab 08/10/18416 07/19/19 0522 08/08/18 0440 PHOS 4.7 4.5 4.4 Recent Labs Lab 08/09/18 0522 08/08/18 0440 08/07/18 0441 MG 2.1 1.9 2.0 Invalid input(s): ABG No results for input(s): CALCIUM in the last 168 hours. No results for input(s): APTT, INR, PTT in the last 168 hours. Xr Chest 2 View Result Date: 08/06/2018 No acute cardiopulmonary abnormality. Signed by: Sachin Adam Sign Date/Time: 08/06/2018 11 :43 AM [facility] Kidneys And Bladder Result Date: 08/06/2018 Normal-sized both kidneys without hydronephrosis. Urinary bladder is incompletely evaluated . Bilateral ureteric jets are not visualized. Signed by: Gregorio Alfaro Sign Date/Time: 08/06/2018 9:09 AM PROBLEM LIST Principal Problem: Acute renal failure superimposed on stage 4 chronic kidney disease (HCC) Active Problems: Essential hypertension Type 2 diabetes mellitus with complication, with long-term current use of insulin (HCC) Non-ischemic cardiomyopathy (HCC) ASSESSMENT / PLAN Non ischemic cardiomyopathy - Hold home toresemide/lasix- Hold lisinopril - Continue coreg, asa, lipitor Ivf stopped 1. S/p cath 08/08/18 = No significant coronary artery disease, Elevated LVEDP, 23 mmHg Echo = EF 60-65 %, mod LVH So likely has Non ischemic Cardiomyopathy. Dr Crawford following for recs BP is better now on multiple meds Creat ^, hold losartan, norvasc Acute renal failure / Hyperkalemia - Renal ultrasound -ve for hydronephrosis. D/w Dr Rivera. Probable has CKD and not graciela Likely due to acei, diuretics. Low potassium diet Dietary consulted Plan for duplex renal today Creat worsen today 2.3. Hold losartan, norvasc Diabetes mellitus, Type 2, insulin dependent - Continue lantus, decreased to 10 units nightly - POC Glucose checks - SSI correction HbA1c = 6.4 Added lovenox 30 The plan has explained in detail to the patient , all questions were answered.All data was reviewed. I explained radiology and lab findings and plan of care to patient and relatives and they v erbalized understanding and agreement and had no more questions for me after my interaction with them. More than 35 minutes spent directly face to face with patient and more than 65% s pent for physical examination and talking with patient and relatives at bedside, on chart review, coordinating care with other providers, formulating a plan of care and management as well as Computerized Physician Platform Beater. Disposition: Home ? Code Status: Full Code Gustavo Castorena MD 08/10/2018 9:57 AM onversion Transactio n, Provider Unknown - 08/10/2018 6:23 AM PST Nurse Progress Note by Francy Beckford RN at 08/10/18622 Author: Francy Beckford RN Service: (none) Author Type: Registered Nurse Filed: 08/10/18627 Date of Service: 08/10/18622 Status: Signed Climatologist: Francy Beckford RN (Registered Nurse) VSS. Pt had one c/o of anxiety which she was given ativan x 1. Pt NPO since 0000 except f or sips of water d/t having hiccups with the first dose of mylicon. Pt voiding QS. Family in room overnight. Pt ambulating in room. Otherwise, hourly rounding was uneventful. Chart check complete. Francy Beckford RN onver federico Transaction, Provider Unknown - 08/09/2018 5:50 PM PST Nurse Progress Note by Kaia Penaloza RN at 08/09/181749 Author: Kaia Penaloza RN Service: (none) Author Type: Registered Nurse Filed: 08/09/181751 Date of Service: 08/09/181749 Status: Signed Climatologist: Kaia Penaloza RN (Registered Nurse) VSS today. Pt had one episode of HR of 160s. aware. Pt was anxious at the time and was t reated with PRN ativan. HR returned to 70s. Pain treated x1 with tramadol. Pt voiding QS. Fa hang in room throughout the day. Pt ambulating in the room and pushed around the unit in WC. Hourly rounding otherwise unremarkable. End of shift chart review complete. Kaia Penaloza, RN, BSN Shin Gordon MD - 08/09/2018 5:48 PM PSTFormatting of this note might be different from the or iginal. Progress Notes by Shin Rivera MD at 08/09/18 8570 Author: Shin Rivera MD Service: Nephrology Author Type: Physician Filed: 08/10/18 0751 Date of Service: 08/09/181747 Status: Signed Climatologist: Shin Rivera MD (Physician) PCP : [facility] LOS: 3 days Maria Ines Martin is a 63 y.o. woman followed for presumed GRACIELA (? Has CKD) with current hosp italization with ADHF She is seen with her Bryan. She feels 'OK' today and has no fever, chills sweats, nausea, vomiting or diarrhea, shortne ss of breath, chest pain, cough. She has cardiac cath yesterday which revealed normal coronary arteries. She is nonoliguric. ROS: As in History of Present Illness. 7 area ROS was done and was otherwise negative. Examination: Vitals: As noted General appearance: NAD, conversant. Sitting up in bed in no distress. Neck: FROM, supple. + JVD. Lungs: Reduced AE at bases. Effort fair. CV: RRR, no MRGs; normal carotid upstroke and amplitude without bruits Abdomen: Soft, non-tender; no masses or HSM Extremities: No peripheral edema or digital cyanosis Skin: No rash, lesions or ulcers Psych: leasant demeanor Neurologic: Alert and oriented to person, place and time. Gait not tested. Speech fluent. The following portions of the patient's history were reviewed and updated as appropriate: l aboratory data, radiologic studies, allergies, current medications, and problem list. Past m edical, surgical, social, and family history was also reviewed as appropriate. Past history summarized as above. Vital Signs: BP 137/63 | Pulse 67 | Temp 98.1 F (36.7 C) (Oral) | Resp 18 | Ht 1.6 m (5' 2.99") | Wt 87.3 kg (192 lb 7.4 oz) | SpO2 95% | ? No | BMI 34.10 kg/m Intake/Output Summary (Last 24 hours) at 08/09/18 1748 Last data filed at 08/09/18 1152 Gross per 24 hour Intake 1210 ml Output 1200 ml Net 10 ml Data evaluation: Lab Results Component Value Date BUN 48 (H) 08/09/2018 CREATININE 1.8 (H) 08/09/2018 EGFR 29 (L) 08/09/2018 NA 140 08/09/2018 K 4.8 08/09/2018 CL 108 08/09/2018 CO2 22 (L) 08/09/2018 CA 8.0 (L) 08/09/2018 PHOS 4.5 08/09/2018 MG 2.1 08/09/2018 ALB 2.2 (L) 08/09/2018 HGB 9.6 (L) 08/09/2018 Lab Results Component Value Date HGB 9.6 (L) 08/09/2018 FERRITIN 66 08/08/2018 LABIRON 24 08/08/2018 Lab Results Component Value Date LDH 255 (H) 08/08/2018 Lab Results Component Value Date URICACID 6.6 08/08/2018 Lab Results Component Value Date PTHINTACT 126.9 (H) 08/08/2018 Lab Results Component Value Date ANIONGAP 15 08/09/2018 Lab Results Component Value Date LABPROT 4.982 08/07/2018 MALBRX 3,125 (H) 08/07/2018 U/A: Lab Results Component Value Date CLARITYU HAZY 08/06/2018 LEUKOCYTESUR NEGATIVE 08/06/2018 NITRITE NEGATIVE 08/06/2018 UROBILINOGEN NORMAL 08/06/2018 UPRO >500 (A) 08/06/2018 PHUR 5.0 08/06/2018 BLOODU SMALL (A) 08/06/2018 KETONES NEGATIVE 08/06/2018 BILIRUBINUR NEGATIVE 08/06/2018 GLUCOSEU 50 (A) 08/06/2018 Last 3 Troponin: No results found for: TROPONINI Xr Chest 2 View 08/06/2018 showed no acute cardiopulmonary abnormality. [facility] Kidneys And Bladder 08/06/2018 showed Normal-sized both kidneys without hydronephrosis. U rinary bladder was incompletely evaluated. Echo 08/06/2018 showed EF between 60 - 65 %. Modderate concentric left ventricular hypertrophy. Assessment and Recommendations: 1. Baseline CKD stage G4A3 (diabetic nephropathy) with baseline creatinine of 1.8 and eGFR of 29 from 01/2018 and significant proteinuria. 2. Non ischemic cardiomyopathy with normal coronary arteries on cardiac cath from 08/08/18 3. Labile hypertension 4. Longstanding DM2 5. Iron deficiency anemia 6. Hyperparathyroidism 7. Vitamin D deficiency She is hemodynamically stable with no fever/tachycardia/bradycardia/hypotension or severe h ypertension/hypoxia at rest. CKD is stable with no rise in creatinine after cardiac cath. BP is well controlled. She is euvolemic. Anemia is moderate. Plan: Start low dose losartan along with PO Fe/Vitamin C/Vitamin D supplementation. Age appropriate GI work up for Fe deficiency anemia. If renal duplex is - tomorrow for renovascular disease she may be discharged with plan f or outpatient follow up with Dr. Pearce in [place]. Strict low K diet. Diet 2 gm Na, 1 gm K, 1 gm PO4, 1 gm/kg protein diet. Dose all meds for an eGFR of less than 30 ml/min/1.73 m2. No use of NSAIDs (including BRAY 2 inhibitors). No use of Magnesium or aluminum containing antacids. No use of Magnesium or phosphorus containing laxatives Daily weights. SHIN RIVERA MD 08/09/2018 Plan of care was discussed with Dr. Castorena. She was seen earlier in the day and charting was completed later after rounds. Dictation software, [employer], was used which may contain error for similar sounding words nabor n after review. Personal communication is requested for any clarification. Prognosis is guarded in view of multiple comorbid illnesses amLODIPine 7.5 mg Oral Daily ascorbic acid 500 mg Oral Daily aspirin 81 mg Oral Daily with breakfast atorvastatin 10 mg Oral Nightly carvedilol 3.125 mg Oral BID WC [START ON 08/10/2018] cholecalciferol 2,000 Units Oral Daily enoxaparin 30 mg Subcutaneous Daily [START ON 08/10/2018] ferrous sulfate (65 FE) 65 mg of iron Oral Daily with breakfast hydrALAZINE 75 mg Oral TID hydrochlorothiazide 25 mg Oral Daily insulin glargine 10 Units Subcutaneous Nightly insulin lispro (human) 0-10 Units Subcutaneous TID AC insulin lispro (human) 0-5 Units Subcutaneous Nightly losartan 25 mg Oral Daily [START ON 08/10/2018] simethicone 80 mg Oral 4 times per day traZODone 50 mg Oral Nightly dextrose Gustavo Wharton MD - 08/09/2018 2:16 PM PST Progress Notes by Gustavo Castorena MD at 08/09/18 1416 Author: Gustavo Castorena MD Service: Internal Medicine Author Type: Physician Filed: 08/09/18 1421 Date of Service: 08/09/181415 Status: Signed Climatologist: Gustavo Castorena MD (Physician) [facility] Service: Hospitalist Progress Note Hospital Day: LOS: 3 days SUBJECTIVE Would like dietary consult Pain is controlled HPI: Ms. 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 She presented from outpatient for scheduled cardiac cath with Dr. Crawford. She had routine labs drawn which showed hyperkalemia to 6.4. She was notified of results but was asymptomatic. Labs were re-drawn on arrival and repeat K was 5.8. She is asymptomatic. Cardiology decided to forgo scheduled cath given acute renal failure. Hospital ist and nephrology were consulted. Labs: Na 142, K 5.8, Ch 112, CO2 19, BUN 64, Cr 2.6, Glu 111. EKG: Sinus margret, no ST changes, no T wave peaks or inversions. Home medications - patient taking torsemide 10 mg QAM and 5 mg QPM, which may have precipit ated renal failure. She was also recently started on lisinopril in January when diagnosis was m rivka. She was given cocktail of bicarb, ca+, insulin. Held her acei, lasix. Was started on ivf, with bicarb. Renal function improved. Renal usg = no hydronephrosis. Patient Summary: Scheduled Medications amLODIPine 7.5 mg Oral Daily aspirin 81 mg Oral Daily with breakfast atorvastatin 10 mg Oral Nightly carvedilol 3.125 mg Oral BID WC [START ON 08/10/2018] cholecalciferol 2,000 Units Oral Daily enoxaparin 30 mg Subcutaneous Daily hydrALAZINE 75 mg Oral TID hydrochlorothiazide 25 mg Oral Daily insulin glargine 10 Units Subcutaneous Nightly insulin lispro (human) 0-10 Units Subcutaneous TID AC insulin lispro (human) 0-5 Units Subcutaneous Nightly [START ON 08/10/2018] simethicone 80 mg Oral 4 times per day traZODone 50 mg Oral Nightly Continuous Infusions dextrose PRN Medications acetaminophen, albuterol, dextrose, dextrose, dextrose, fentaNYL, glucagon, glucagon, hydrO XYzine, LORazepam, melatonin, midazolam, traMADol OBJECTIVE Vital Signs: BP 137/63 (BP Location: Left upper arm) | Pulse 72 | Temp 97.8 F (36.6 C) (Axillary) | Resp 16 | Ht 1.6 m (5' 2.99") | Wt 87.3 kg (192 lb 7.4 oz) | SpO2 98% | ? No | BMI 34.10 kg/m Patient Vitals for the past 24 hrs: BP Temp Temp src Pulse Resp SpO2 Weight 08/09/18 1151 137/63 97.8 F (36.6 C) Axillary 72 16 98 % - 08/09/18 0815 149/67 97.5 F (36.4 C) Axillary 65 16 98 % - 08/09/18 0338 145/65 97.6 F (36.4 C) Axillary 65 16 98 % 87.3 kg (192 lb 7.4 oz) 08/08/18 2351 126/60 98 F (36.7 C) Oral - 16 98 % - 08/08/18 2300 105/50 - - 65 - 94 % - 08/08/18 2200 125/60 - - 65 - 96 % - 08/08/18 2100 141/66 - - 65 - 99 % - 08/08/18 2045 128/55 - - 65 - - - 08/08/18 2030 117/58 - - 65 - 95 % - 08/08/181999 108/53 - - 67 - 96 % - 08/08/18 193 140/65 97.6 F (36.4 C) Oral 72 - 99 % - 08/08/181914 140/65 97.6 F (36.4 C) - 73 - 98 % - 01/18/19 1907 140/65 97.7 F (36.5 C) Oral 76 16 100 % - 08/08/18 1900 140/65 97.6 F (36.4 C) - 74 - 98 % - 08/08/18 1845 156/67 97.6 F (36.4 C) Oral 78 - 99 % - 08/08/18 1830 141/69 97.6 F (36.4 C) - 74 16 98 % - 08/08/18 1827 149/65 - - 77 - - - 08/08/18 1815 149/65 97.6 F (36.4 C) Oral 78 16 94 % - 08/08/18 1800 155/69 - - 77 15 100 % - 08/08/18 1755 173/84 - - 73 16 100 % - 08/08/18 1750 173/84 - - 77 14 100 % - 08/08/18 1745 176/76 - - 75 14 98 % - 08/08/18 1740 170/84 - - 71 15 99 % - 08/08/18 1634 161/72 98.7 F (37.1 C) Axillary 76 22 98 % - Intake/Output Summary (Last 24 hours) at 08/09/18 1416 Last data filed at 08/09/18 1152 Gross per 24 hour Intake 1565 ml Output 1550 ml Net 15 ml Physical Exam: Constitutional: PLEASANT .OBESE FEMALE IN BED EATING LUNCH DISTRESS HEENT: Neck supple, no JVD, non icteric sclera. Cardiovascular: Normal rate, regular rhythm, normal heart sounds with S1 and S2, Exam re veals no gallop and no friction rub. Pulmonary/Chest: Effort normal and breath sounds normal. No stridor. No respiratory distres s. no wheezes. no rales. Abdominal: Soft. Bowel sounds are normal. exhibits no distension and no palpable mass. Ther e is no tenderness. There is no rebound and no guarding. Extremeties/Musculoskeletal: Normal range of motion.exhibits no tenderness. exhibits +1 ed miya. Neurological: Alert and oriented to person, place, and time. Perrla Non focal Skin: Skin is warm and dry. PALLOR DATA Recent Labs Lab 08/09/18 0522 08/08/18 0440 08/07/18 0441 08/05/18 1100 WBC 5.17 5.62 5.64 < > 5.91 RBC 3.42* 3.56* 3.32* < > 3.67* HGB 9.6* 10.0* 9.3* < > 10.2* HCT 29.0* 30.4* 28.2* < > 31.1* MCV 85.0 85.3 85.2 < > 84.8 MCH 28.1 28.0 28.1 < > 27.8 MCHC 33.1 32.8 33.0 < > 32.8 RDW 41.6 41.1 41.6 < > 42.0 PLT 161 169 146* < > 182 MPV 10.7 10.6 10.6 < > 10.3 DIFFTYPE -- -- -- -- AUTOMATED < > = values in this interval not displayed. Recent Labs Lab 08/09/18 0508/08/180 08/07/18 1456 NA 140 143 144 K 4.8 5.0* 4.9 CL 108 110* 112* CO2 22* 24 24 BUN 48* 47* 44* CREATININE 1.8* 1.8* 2.0* GLUF 140* 142* 159* No results for input(s): CKTOTAL, TROPONINI, TROPONINT, CKMBINDEX in the last 168 hours. Recent Labs Lab 08/09/18 0508/08/180 08/07/18 0441 PHOS 4.5 4.4 4.1 Recent Labs Lab 08/09/18 0522 08/08/18 0440 08/07/18 0441 MG 2.1 1.9 2.0 Invalid input(s): ABG No results for input(s): CALCIUM in the last 168 hours. No results for input(s): APTT, INR, PTT in the last 168 hours. Xr Chest 2 View Result Date: 08/06/2018 No acute cardiopulmonary abnormality. Signed by: Sachin Adam Sign Date/Time: 08/06/2018 11 :43 AM [facility] Kidneys And Bladder Result Date: 08/06/2018 Normal-sized both kidneys without hydronephrosis. Urinary bladder is incompletely evaluated . Bilateral ureteric jets are not visualized. Signed by: Gregorio Alfaro Sign Date/Time: 08/06/2018 9:09 AM PROBLEM LIST Principal Problem: GRACIELA (acute kidney injury) (HCC) Active Problems: Ischemic cardiomyopathy Chronic systolic heart failure (HCC) Hyperkalemia Essential hypertension Type 2 diabetes mellitus with complication, with long-term current use of insulin (HCC) ASSESSMENT / PLAN Heart failure reduced ejection fracture, - Hold home toresemide/lasix- Hold lisinopril - Continue coreg, asa, lipitor Ivf stopped 1. S/p cath 08/08/18 = No significant coronary artery disease, Elevated LVEDP, 23 mmHg Echo = EF 60-65 %, mod LVH Dr Crawford following for recs BP is better now on multiple meds Increased hydralzine to 75 mg,norvasc, with coreg Acute renal failure / Hyperkalemia - Renal ultrasound -ve for hydronephrosis. nephrology Following D/w Dr Rivera. Probable has CKD and not graciela Likely due to acei, diuretics. But patient also mentions being on doxycyline for toe infect ion for past 6 months - Low potassium diet Dietary consult Plan for duplex renal in am- Off ivf, and bicarb now. Diabetes mellitus, Type 2, insulin dependent - Continue lantus, decreased to 10 units nightly - POC Glucose checks - SSI correction HbA1c = 6.4 Added lovenox 30 The plan has explained in detail to the patient , all questions were answered.All data was reviewed. I explained radiology and lab findings and plan of care to patient and relatives and they v erbalized understanding and agreement and had no more questions for me after my interaction with them. More than 35 minutes spent directly face to face with patient and more than 65% s pent for physical examination and talking with patient and relatives at bedside, on chart review, coordinating care with other providers, formulating a plan of care and management as well as Computerized Physician Platform [employer]ater. Disposition: Home ? Code Status: Full Code Gustavo Castorena MD 08/09/2018 2:16 PM onversion Transactio n, Provider Unknown - 08/09/2018 6:26 AM PST Nurse Progress Note by Francy Beckford RN at 08/09/18 8739 Author: Francy Beckford RN Service: (none) Author Type: Registered Nurse Filed: 08/09/18 9403 Date of Service: 08/09/18625 Status: Signed Climatologist: Francy Beckford RN (Registered Nurse) Patient complained of pain in her right hand, TR band was in place, pulse +2, cap refill le ss than 3 seconds, and warm. Air was released at 3 mL/hr until deflated. TR band was remov ed and tagaderm was placed over R radial site. As the air was released the patient became m ore comfortable, but still c/o slight pain once TR band was removed. Otherwise, hourly round ing was uneventful. Patient's VSS. BPs 100s-140s systolic HR 60s Patient's significant other and son were bed side overnight. Chart check complete. onver federico Transaction, Provider Unknown - 08/08/2018 8:01 PM PST Nurse Progress Note by Nimo Heredia RN at 08/08/182000 Author: Nimo Heredia RN Service: (none) Author Type: Registered Nurse Filed: 08/08/182000 Date of Service: 08/08/182000 Status: Signed Climatologist: Nimo Heredia RN (Registered Nurse) No significant changes from shift assessment. No falls or new signs of skin breakdown. Pt p ain well controlled with PRNs (see MAR). No complaints of nausea or SOB. VSS for remainder of shift. WCM End of shift chart check done. Brynn Merrill MD - 08/08/2018 4:42 PM PSTFormatting of this note might be different from the orig inal. Progress Notes by Brynn Crawford MD at 08/08/181641 Author: Brynn Crawford MD Service: Cardiology Author Type: Physician Filed: 08/08/18 180 Date of Service: 08/08/18 164 Status: Signed Climatologist: Brynn Crawford MD (Physician) [facility] Service: Cardiology/[facility] Progress Note RE: Maria Ines Martin : 1955 DATE OF SERVICE: 08/05/2018 PROVIDER:Brynn Crawford Pt is seen for F/U on: Cardiomyopathy, hyperkalemia SUBJECTIVE: She feels better. She underwent angiography this afternoon which showed no significant jaylen nary artery disease. CURRENT MEDICATIONS: Scheduled Meds: amLODIPine 7.5 mg Oral Daily aspirin 81 mg Oral Daily with breakfast atorvastatin 10 mg Oral Nightly carvedilol 3.125 mg Oral BID WC enoxaparin 30 mg Subcutaneous Daily hydrALAZINE 75 mg Oral TID hydrochlorothiazide 25 mg Oral Daily insulin glargine 10 Units Subcutaneous Nightly insulin lispro (human) 0-10 Units Subcutaneous TID AC insulin lispro (human) 0-5 Units Subcutaneous Nightly traZODone 50 mg Oral Nightly Continuous Infusions: dextrose PRN Meds:.acetaminophen, albuterol, dextrose, dextrose, dextrose, fentaNYL, glucagon, gluca elias, hydrOXYzine, LORazepam, melatonin, midazolam, traMADol ALLERGIES: Allergies Allergen Reactions Quinine Hallucinations PHYSICAL EXAM: BP 161/72 (BP Location: Right upper arm) | Pulse 76 | Temp 98.7 F (37.1 C) (Axillary) | Resp 22 | Ht 1.6 m (5' 2.99") | Wt 86.7 kg (191 lb 2.2 oz) | SpO2 98% | Br eastfeeding? No | BMI 33.87 kg/m Intake/Output Summary (Last 24 hours) at 08/08/18 1642 Last data filed at 08/08/18 1417 Gross per 24 hour Intake 355 ml Output 800 ml Net -445 ml General Appearance: Alert, oriented, cooperative, no distress, appears stated age HEENT: Edentulous. No xanthelasmas. Extraocular movements were intact. No jaundice. Pupil es round and reactive. NECK: no JVD, lymphadenopathy. Trachea is at midline. Thyroid is not palpable. CARDIAC: There is normal S1 and S2. No added sounds, murmurs, gallop, or rub. CHEST: Normal bilateral symmetrical chest excursion. Good bilateral air entry with no crack les or wheezing. No evidence of dullness. ABDOMEN: Soft and lax. No tenderness. No palpable organs. Active bowel sounds. EXTREMITIES: No lower extremities edema. NEURO: Alert and oriented times three with no focal deficit. Cranial nerves are grossly no rmal. SKIN: No bruises or rash. Lab Review Lab Results Component Value Date NA 143 08/08/2018 K 5.0 (H) 08/08/2018 CL 110 (H) 08/08/2018 CO2 24 08/08/2018 BUN 47 (H) 08/08/2018 CREATININE 1.8 (H) 08/08/2018 No results found for: CKTOTAL, CKMB, CKMBINDEX, TROPONINI Lab Results Component Value Date WBC 5.62 08/08/2018 HGB 10.0 (L) 08/08/2018 HCT 30.4 (L) 08/08/2018 MCV 85.3 08/08/2018 PLT 169 08/08/2018 Lab Results Component Value Date GLUF 142 (H) 08/08/2018 HGBA1C 6.4 (H) 08/06/2018 No results found for: INR Cardiographics ECG: EKG during hyperkalemia showed sinus rhythm with no hyperacute T-wave or prolonged QRS Imaging Echocardiogram 08/06/2018 1. Overall left ventricular systolic function is normal with, an EF between 60 - 65 %. 2. There is moderate concentric left ventricular hypertrophy. 3. Mild mitral regurgitation is present. Scores: 1. [id number] Score: 3 2. Scottish Anginal Score: 3 3. NYHA Score: 2 ASSESSMENT: 1. Hyperkalemia , resolved 2. Acute on chronic renal failure 3. Chest discomfort 4. Congestive heart failure, class II III, stage C, now warm and dry 5. History of moderate cardiomyopathy, likely hypertensive, with normalization of ejection fraction 6. Diabetes mellitus 7. Hypertension 8. Hyperlipidemia 9. History of tobacco dependence 10. History of drug use 11. Peripheral vascular disease PLAN: Her coronary angiography suggested no coronary disease. Efforts should continue to be direc michelle toward treating her hypertension. From cardiac standpoint she can be discharged home mila orrow. 20 cc of contrast was used for the procedure. *This report has been prepared using a voice recognition system. The report was reviewed fo r accuracy, however, sound-alike word errors, addition and/or deletions may occur. If there is any question about this report please contact me. Brynn Crawford MD, F.A.C.C. 08/08/2018 4:42 PM onversion Transaction, Provider Unknown - 08/08/2018 3:36 PM PSTFormatting of this note might be different from t he original. Case Management by Damaris Canchola RN at 08/08/181535 Author: Damaris Canchola RN Service: (none) Author Type: Registered Nurse Filed: 08/08/18 1541 Date of Service: 08/08/181535 Status: Signed Climatologist: Damaris Canchola RN (Registered Nurse) Tc from [facility]([phone]), CM with [facility] re d/c plan, infor med that d/c date is still unknown. [facility] transport dept, states they dont provide transportation on [place], but would need to call [facility] [place] . If [facility] is not able to provide transportation, need to ask family or pay for taxi. Kathe Gustavo Lara MD - 08/08/2018 2:53 PM PSTFormatting of this note might be different from the or iginal. Progress Notes by Gustavo Castorena MD at 08/08/18 4025 Author: Gustavo Castorena MD Service: Internal Medicine Author Type: Physician Filed: 08/08/181456 Date of Service: 08/08/181452 Status: Signed Climatologist: Gustavo Castorena MD (Physician) [facility] Service: Hospitalist Progress Note Hospital Day: LOS: 2 days SUBJECTIVE C/o back pain. Feels better with tramadol. Takes edge off HPI: Ms. 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 She presented from outpatient for scheduled cardiac cath with Dr. Crawford. She had routine labs drawn which showed hyperkalemia to 6.4. She was notified of results but was asymptomatic. Labs were re-drawn on arrival and repeat K was 5.8. She is asymptomatic. Cardiology decided to forgo scheduled cath given acute renal failure. Hospital ist and nephrology were consulted. Labs: Na 142, K 5.8, Ch 112, CO2 19, BUN 64, Cr 2.6, Glu 111. EKG: Sinus margret, no ST changes, no T wave peaks or inversions. Home medications - patient taking torsemide 10 mg QAM and 5 mg QPM, which may have precipit ated renal failure. She was also recently started on lisinopril in January when diagnosis was m rivka. She was given cocktail of bicarb, ca+, insulin. Held her acei, lasix. Was started on ivf, with bicarb. Renal function improved. Renal usg = no hydronephrosis. Patient Summary: Scheduled Medications amLODIPine 7.5 mg Oral Daily aspirin 81 mg Oral Daily with breakfast atorvastatin 10 mg Oral Nightly enoxaparin 30 mg Subcutaneous Daily hydrALAZINE 75 mg Oral TID hydrochlorothiazide 25 mg Oral Daily insulin glargine 10 Units Subcutaneous Nightly insulin lispro (human) 0-10 Units Subcutaneous TID AC insulin lispro (human) 0-5 Units Subcutaneous Nightly Continuous Infusions dextrose PRN Medications acetaminophen, albuterol, dextrose, dextrose, dextrose, glucagon, glucagon, hydrOXYzine, LO Razepam, melatonin, traMADol OBJECTIVE Vital Signs: BP 142/69 | Pulse 68 | Temp 98.6 F (37 C) (Axillary) | Resp 22 | Ht 1.6 m (5' 2.99" ) | Wt 86.7 kg (191 lb 2.2 oz) | SpO2 100% | ? No | BMI 33.87 kg/m Patient Vitals for the past 24 hrs: BP Temp Temp src Pulse Resp SpO2 Height Weight 08/08/18 1225 142/69 - - - - - - - 08/08/18 1215 138/77 - - 68 - - - - 08/08/18 1200 162/80 - - 70 - - - - 08/08/18 1130 172/79 - - 70 - - - - 08/08/18 1108 189/88 98.6 F (37 C) Axillary 65 22 100 % - - 08/08/18 1041 170/72 - - - - - - - 08/08/18 0839 138/63 97.5 F (36.4 C) Oral 65 20 98 % 1.6 m (5' 2.99") 86.7 kg (191 lb 2 .2 oz) 08/08/18 0641 133/60 - - - - - - - 08/08/18 0600 181/78 - - - - - - - 08/08/18 0554 - - - - - - - 86.7 kg (191 lb 2.2 oz) 08/08/18 0349 174/80 98.1 F (36.7 C) Oral 77 20 98 % - - 08/07/18 2340 152/70 98.2 F (36.8 C) Oral 72 - 98 % - - 08/07/18 2153 144/72 - - - - - - - 08/07/18 1952 150/68 98.1 F (36.7 C) Oral 68 16 97 % - - 08/07/18 1616 163/71 97.8 F (36.6 C) Oral 69 22 100 % - - Intake/Output Summary (Last 24 hours) at 08/08/18 1453 Last data filed at 08/08/18 1417 Gross per 24 hour Intake 710 ml Output 1000 ml Net -290 ml Physical Exam: Constitutional: PLEASANT .OBESE FEMALE IN BED NO DISTRESS looks anxious HEENT: Neck supple, no JVD, non icteric sclera. Cardiovascular: Normal rate, regular rhythm, normal heart sounds with S1 and S2, Exam re veals no gallop and no friction rub. Pulmonary/Chest: Effort normal and breath sounds normal. No stridor. No respiratory distres s. no wheezes. no rales. Abdominal: Soft. Bowel sounds are normal. exhibits no distension and no palpable mass. Ther e is no tenderness. There is no rebound and no guarding. Extremeties/Musculoskeletal: Normal range of motion.exhibits no tenderness. exhibits +1 ed miya. Neurological: Alert and oriented to person, place, and time. Perrla Non focal Skin: Skin is warm and dry. PALLOR DATA Recent Labs Lab 08/08/18 0440 08/07/18 0441 08/06/18 0605 08/05/18 1100 WBC 5.62 5.64 5.48 5.91 RBC 3.56* 3.32* 3.30* 3.67* HGB 10.0* 9.3* 9.3* 10.2* HCT 30.4* 28.2* 28.2* 31.1* MCV 85.3 85.2 85.7 84.8 MCH 28.0 28.1 28.4 27.8 MCHC 32.8 33.0 33.1 32.8 RDW 41.1 41.6 42.9 42.0 PLT 169 146* 153 182 MPV 10.6 10.6 10.4 10.3 DIFFTYPE -- -- -- AUTOMATED Recent Labs Lab 08/08/18 0440 08/07/18 1456 08/07/18 0441 NA 143 144 145 K 5.0* 4.9 5.2* CL 110* 112* 113* CO2 24 24 25 BUN 47* 44* 51* CREATININE 1.8* 2.0* 1.9* GLUF 142* 159* 146* No results for input(s): CKTOTAL, TROPONINI, TROPONINT, CKMBINDEX in the last 168 hours. Recent Labs Lab 08/08/18 04408/07/18 0441 08/06/18 0605 PHOS 4.4 4.1 4.7 Recent Labs Lab 08/08/18 0440 08/07/18 0441 08/06/18 0605 MG 1.9 2.0 2.1 Invalid input(s): ABG No results for input(s): CALCIUM in the last 168 hours. No results for input(s): APTT, INR, PTT in the last 168 hours. Xr Chest 2 View Result Date: 08/06/2018 No acute cardiopulmonary abnormality. Signed by: Sachin Adam Sign Date/Time: 08/06/2018 11 :43 AM Us Kidneys And Bladder Result Date: 08/06/2018 Normal-sized both kidneys without hydronephrosis. Urinary bladder is incompletely evaluated . Bilateral ureteric jets are not visualized. Signed by: Gregorio Alfaro Sign Date/Time: 08/06/2018 9:09 AM PROBLEM LIST Principal Problem: GRACIELA (acute kidney injury) ([facility]) Active Problems: Ischemic cardiomyopathy Chronic systolic heart failure (HCC) Hyperkalemia Essential hypertension Type 2 diabetes mellitus with complication, with long-term current use of insulin ([facility]) ASSESSMENT / PLAN Heart failure reduced ejection fracture, - Hold home toresemide/lasix- Hold lisinopril - Continue coreg continue aspirin 81 mg daily - Continue atorvastatin Iv fluids stopped Monitor for overload Echo = EF 60-65 %, mod LVH Dr Crawford following for recs BP was elevated. Increased hydralzine to 75 mg, and coreg added Increased Norvasc also Acute renal failure / Hyperkalemia - Renal ultrasound -ve for hydronephrosis. nephrology Following D/w Dr Rivera. Probable has CKD and not graciela Likely due to acei, diuretics. But patient also mentions being on doxycyline for toe infect ion for past 6 months - Low potassium diet - EKG shows no ST changes, peaked T waves, T wave inversions - Kayexelate 30 mg x1 calcium gluconate given x1 Off ivf, bicarb now. Diabetes mellitus, Type 2, insulin dependent - Continue lantus, decreased to 10 units nightly - POC Glucose checks - SSI correction HbA1c = 6.4 Added heparin 5k The plan has explained in detail to the patient , all questions were answered.All data was reviewed. I explained radiology and lab findings and plan of care to patient and relatives and they v erbalized understanding and agreement and had no more questions for me after my interaction with them. More than 35 minutes spent directly face to face with patient and more than 65% s pent for physical examination and talking with patient and relatives at bedside, on chart review, coordinating care with other providers, formulating a plan of care and management as well as Computerized Physician Platform Beater. Disposition: Home ? Code Status: Full Code Gustavo Castorena MD 08/08/2018 2:53 PM Shin Vale MD - 08/08/2018 11:26 AM PST Progress Notes by Shin Rivera MD at 08/08/18 1126 Author: Shin Rivera MD Service: Nephrology Author Type: Physician Filed: 08/10/18 1223 Date of Service: 08/08/18 1126 Status: Signed Climatologist: Shin Rivera MD (Physician) PCP : [facility] LOS: 2 days Maria Ines Martin is a 63 y.o. woman followed for presumed GRACIELA (? Has CKD) with current hosp italization with [facility] I assumed nephrology care from Dr. Fuller 08/08/18. She feels 'OK' today and has no fever, chills sweats, nausea, vomiting or diarrhea, shortne ss of breath, chest pain, cough. She has no chest pain. ROS: As in History of Present Illness. 7 area ROS was done and was otherwise negative. Examination: Vitals: As noted General appearance: NAD, conversant. Sitting up in bed in no distress. Neck: FROM, supple. + JVD. Lungs: Reduced AE at bases. Effort fair. CV: RRR, no MRGs; normal carotid upstroke and amplitude without bruits Abdomen: Soft, non-tender; no masses or HSM Extremities: No peripheral edema or digital cyanosis Skin: No rash, lesions or ulcers Psych: leasant demeanor Neurologic: Alert and oriented to person, place and time. Gait not tested. Speech fluent. The following portions of the patient's history were reviewed and updated as appropriate: l aboratory data, radiologic studies, allergies, current medications, and problem list. Past m edical, surgical, social, and family history was also reviewed as appropriate. Past history summarized as above. Vital Signs: BP 189/88 (BP Location: Right upper arm) | Pulse 65 | Temp 98.6 F (37 C) (Axillary) | Resp 22 | Ht 1.6 m (5' 2.99") | Wt 86.7 kg (191 lb 2.2 oz) | SpO2 100% | ? No | BMI 33.87 kg/m Intake/Output Summary (Last 24 hours) at 08/08/18 1126 Last data filed at 08/08/18 1047 Gross per 24 hour Intake 355 ml Output 650 ml Net -295 ml Data evaluation: Lab Results Component Value Date BUN 47 (H) 08/08/2018 CREATININE 1.8 (H) 08/08/2018 EGFR 29 (L) 08/08/2018 NA 143 08/08/2018 K 5.0 (H) 08/08/2018 CL 110 (H) 08/08/2018 CO2 24 08/08/2018 CA 8.0 (L) 08/08/2018 PHOS 4.4 08/08/2018 MG 1.9 08/08/2018 ALB 2.2 (L) 08/08/2018 HGB 10.0 (L) 08/08/2018 Lab Results Component Value Date HGB 10.0 (L) 08/08/2018 Lab Results Component Value Date ANIONGAP 14 08/08/2018 Last 3 Troponin: No results found for: TROPONINI Xr Chest 2 View 08/06/2018 showed no acute cardiopulmonary abnormality. Us Kidneys And Bladder 08/06/2018 showed Normal-sized both kidneys without hydronephrosis. U rinary bladder was incompletely evaluated. Echo 08/06/2018 showed EF between 60 - 65 %. Modderate concentric left ventricular hypertrophy. Assessment and Recommendations: 1. Baseline CKD stage G4A3 (diabetic nephropathy) with baseline creatinine of 1.8 and eGFR of 29 from 01/2018 and significant proteinuria. 2. Superimposed cute on chronic renal failure after initiation of lisinopril with hyperkale naldo 3. Hyperkalemia 4. Cardiomyopathy with improved EF on repeat Echo from 08/06/18 5. Labile hypertension 6. Longstanding DM2 7. Normochromic normocytic anemia She has baseline chronic kidney disease stage IV with baseline creatinine of 1.7-1.8 from J rashad 2 018 likely from diabetic nephropathy with proteinuria. Superimposed acute kidney injury is likely from initiation of DANNI inhibitor with hyperkalem ia. Uncontrolled hypertension is likely from administration of bicarbonate which was administer ed with a presumed diagnosis of hypovolemia. She is euvolemic. IV bicarbonate is not needed. Anemia is moderate. Plan: From my perspective she may proceed with cardiac catheter as kidney function is at basel ine. Check renal duplex. Check Fe panel/PTH. Strict low K diet. Diet 2 gm Na, 1 gm K, 1 gm PO4, 1 gm/kg protein diet. Dose all meds for an eGFR of less than 30 ml/min/1.73 m2. No use of NSAIDs (including BRAY 2 inhibitors). No use of Magnesium or aluminum containing antacids. No use of Magnesium or phosphorus containing laxatives Daily weights. SHIN RIVERA MD 08/08/2018 Plan of care was discussed with Dr. Crawford/Dr. Castorena. She was seen earlier in the day and charting was completed later after rounds. Dictation software, [employer], was used which may contain error for similar sounding words nabor jackman after review. Personal communication is requested for any clarification. 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 amLODIPine 7.5 mg Oral Daily aspirin 81 mg Oral Daily with breakfast atorvastatin 10 mg Oral Nightly enoxaparin 30 mg Subcutaneous Daily hydrALAZINE 75 mg Oral TID hydrochlorothiazide 25 mg Oral Daily insulin glargine 10 Units Subcutaneous Nightly insulin lispro (human) 0-10 Units Subcutaneous TID AC insulin lispro (human) 0-5 Units Subcutaneous Nightly dextrose onversion Transactio n, Provider Unknown - 08/08/2018 6:59 AM PST Nurse Progress Note by Little Infante RN at 08/08/18 0659 Author: Little Infante RN Service: (none) Author Type: Registered Nurse Filed: 08/08/18 0700 Date of Service: 08/08/1859 Status: Signed Climatologist: Little Infante RN (Registered Nurse) Pt had elevated Bps this shift. Scheduled hydralazine given. BP checked on arm opposite of what pt was laying on. SBP stable in 130's. PRN tylenol given for headache. No other changes over night. End of shift review complete. Little Infante onver federico Transaction, Provider Unknown - 08/07/2018 8:06 PM PST Nurse Progress Note by Nimo Heredia RN at 08/07/182005 Author: Nimo Heredia RN Service: (none) Author Type: Registered Nurse Filed: 08/07/182005 Date of Service: 08/07/182005 Status: Signed Climatologist: Nimo Heredia RN (Registered Nurse) No significant changes from shift assessment. No falls or new signs of skin breakdown. Pt p ain & anxiety well controlled with PRNs (see MAR). No complaints of nausea or SOB. VSS for remainder of shift. WCM End of shift chart check done. onver federico Transaction, Provider Unknown - 08/07/2018 11:56 AM PST Case Management by Damaris Canchola RN at 08/07/18 8468 Author: Damaris Canchola RN Service: (none) Author Type: Registered Nurse Filed: 08/07/18 1202 Date of Service: 08/07/18 1156 Status: Signed Climatologist: Damaris Canchola RN (Registered Nurse) Tc to [facility]([phone]), CM with [facility] re d/c plan, LMTCB Per pt, wants CM to call [facility] transportation planner re transport back [phone]. Per [place], for wknd medicaid transport call Kathe onver federico Transaction, Provider Unknown - 08/07/2018 11:47 AM PST Case Management by Damaris Canchola RN at 08/07/18 1147 Author: Damaris Canchola RN Service: (none) Author Type: Registered Nurse Filed: 08/07/18 1149 Date of Service: 08/07/18 1147 Status: Signed Climatologist: Damaris Canchola RN (Registered Nurse) 08/07/18 1100 Discharge Planning Evaluation Admitting Diagnosis hyperkalemia Readmission No Living Arrangements Spouse/significant other;Children Support Systems Spouse/significant other;Children Type of Residence Private residence Independent with ADL's Yes Independent with Mobility Yes Home Care Services No Caregiver after Discharge No Mental Status Oriented Prior functional status indep Resources Financial concerns No Anticipated Disposition Facility Type Home Met with pt and discussed discharge planning. Pt resides with spouse and child(disabled chi ld) in [place]. Pt states she is indep with all her adl's, but does use a cane if needed f or outdoors as she has vision deficits.no home o2, no anticoagulants, no HD. Plans to return home Patient's PCP is: [facility] Patient's [facility] Coverage concerns: Medication coverage/concerns: Rx Bedside Delivery: Community resources utilized / needed: Assistance in transportation: family or [employer] transportation Identification of any specific education / training: Barriers to Discharge / Alternative housing needed: Anticipated DCP: home Kathe Canchola RN, CM Gustavo Lara MD - 08/07/2018 10:50 AM PSTFormatting of this note might be different from the or iginal. Progress Notes by Gustavo Castorena MD at 08/07/18 1050 Author: Gustavo Castorena MD Service: Internal Medicine Author Type: Physician Filed: 08/07/18 1058 Date of Service: 08/07/181049 Status: Signed Climatologist: Gustavo Castorena MD (Physician) [facility] Service: Hospitalist Progress Note Hospital Day: LOS: 1 day SUBJECTIVE C/o back pain. Chronic but wants to avoid narcotics /b/c hx of meth use. Afraid of addicti on. HPI: Ms. 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 She presented from outpatient for scheduled cardiac cath with Dr. Crawford. She had routine labs drawn which showed hyperkalemia to 6.4. She was notified of results but was asymptomatic. Labs were re-drawn on arrival and repeat K was 5.8. She is asymptomatic. Cardiology decided to forgo scheduled cath given acute renal failure. Hospital ist and nephrology were consulted. Labs: Na 142, K 5.8, Ch 112, CO2 19, BUN 64, Cr 2.6, Glu 111. EKG: Sinus margret, no ST changes, no T wave peaks or inversions. Home medications - patient taking torsemide 10 mg QAM and 5 mg QPM, which may have precipit ated renal failure. She was also recently started on lisinopril in January when diagnosis was m rivka. She was given cocktail of bicarb, ca+, insulin. Held her acei, lasix. Was started on ivf, with bicarb. Renal function improved. Renal usg = no hydronephrosis. Patient Summary: Scheduled Medications amLODIPine 5 mg Oral Daily aspirin 81 mg Oral Daily with breakfast atorvastatin 10 mg Oral Nightly hydrALAZINE 50 mg Oral TID hydrochlorothiazide 25 mg Oral Daily insulin glargine 10 Units Subcutaneous Nightly insulin lispro (human) 0-10 Units Subcutaneous TID AC insulin lispro (human) 0-5 Units Subcutaneous Nightly Continuous Infusions dextrose PRN Medications acetaminophen, albuterol, dextrose, dextrose, dextrose, glucagon, glucagon, hydrOXYzine, LO Razepam, melatonin OBJECTIVE Vital Signs: BP 176/79 (BP Location: Left upper arm) | Pulse 66 | Temp 98.3 F (36.8 C) (Oral) | R sterling 20 | Ht 1.6 m (5' 3") | Wt 86.5 kg (190 lb 11.2 oz) | SpO2 100% | ? No | BMI 33.78 kg/m Patient Vitals for the past 24 hrs: BP Temp Temp src Pulse Resp SpO2 Weight 08/07/18 0823 176/79 98.3 F (36.8 C) Oral 66 20 100 % - 08/07/18 0632 124/76 - - - - - - 08/07/18 0348 154/74 98.1 F (36.7 C) Oral 72 18 96 % 86.5 kg (190 lb 11.2 oz) 08/07/18 0000 158/69 98.3 F (36.8 C) Oral 69 16 99 % - 08/06/18 2214 185/76 - - - - - - 08/06/18 2050 200/88 98.1 F (36.7 C) Oral 79 18 98 % - 08/06/18 1636 149/75 98.3 F (36.8 C) Oral 69 18 99 % - 08/06/18 1440 156/73 - - - - - - 08/06/18 1133 184/81 97.9 F (36.6 C) Oral 69 18 99 % - Intake/Output Summary (Last 24 hours) at 08/07/18 1050 Last data filed at 08/07/18 0846 Gross per 24 hour Intake 438 ml Output 1400 ml Net -962 ml Physical Exam: Constitutional: PLEASANT .OBESE FEMALE IN BED NO DISTRESS HEENT: Neck supple, no JVD, non icteric sclera. Cardiovascular: Normal rate, regular rhythm, normal heart sounds with S1 and S2, Exam re veals no gallop and no friction rub. Pulmonary/Chest: Effort normal and breath sounds normal. No stridor. No respiratory distres s. no wheezes. no rales. exhibits no tenderness. Abdominal: Soft. Bowel sounds are normal. exhibits no distension and no palpable mass. Ther e is no tenderness. There is no rebound and no guarding. Extremeties/Musculoskeletal: Normal range of motion.exhibits no tenderness. exhibits +1 ed miya. Neurological: Alert and oriented to person, place, and time. Perrla Non focal Skin: Skin is warm and dry. PALLOR DATA Recent Labs Lab 08/07/18 0441 08/06/18 0605 08/05/18 1100 WBC 5.64 5.48 5.91 RBC 3.32* 3.30* 3.67* HGB 9.3* 9.3* 10.2* HCT 28.2* 28.2* 31.1* MCV 85.2 85.7 84.8 MCH 28.1 28.4 27.8 MCHC 33.0 33.1 32.8 RDW 41.6 42.9 42.0 PLT 146* 153 182 MPV 10.6 10.4 10.3 DIFFTYPE -- -- AUTOMATED Recent Labs Lab 08/07/18 0441 08/06/18 1201 08/06/18 0605 08/05/18 1100 NA 145 -- 143 -- 142 K 5.2* 4.8 5.1* < > 5.8* CL 113* -- 116* -- 112* CO2 25 -- 21* -- 19* BUN 51* -- 55* -- 64* CREATININE 1.9* -- 2.0* -- 2.6* GLUF 146* -- 101* -- 111* < > = values in this interval not displayed. No results for input(s): CKTOTAL, TROPONINI, TROPONINT, CKMBINDEX in the last 168 hours. Recent Labs Lab 08/07/18 04408/06/18 0605 PHOS 4.1 4.7 Recent Labs Lab 08/07/18 04408/06/18 0605 MG 2.0 2.1 Invalid input(s): ABG No results for input(s): CALCIUM in the last 168 hours. No results for input(s): APTT, INR, PTT in the last 168 hours. Xr Chest 2 View Result Date: 08/06/2018 No acute cardiopulmonary abnormality. Signed by: Sachin Adam Sign Date/Time: 08/06/2018 11 :43 AM [facility] Kidneys And Bladder Result Date: 08/06/2018 Normal-sized both kidneys without hydronephrosis. Urinary bladder is incompletely evaluated . Bilateral ureteric jets are not visualized. Signed by: Gregorio Alfaro Sign Date/Time: 08/06/2018 9:09 AM PROBLEM LIST Principal Problem: Acute renal failure (HCC) Active Problems: Chronic systolic heart failure (HCC) Hyperkalemia Essential hypertension Type 2 diabetes mellitus with complication, with long-term current use of insulin (HCC) ASSESSMENT / PLAN Heart failure reduced ejection fracture, - Hold home toresemide/lasix - Hold lisinopril - Continue coreg 6.25 mg BID- continue aspirin 81 mg daily - Continue atorvastatin Iv fluids stopped now. Monitor for overload Echo = EF 60-65 %, mod LVH Dr Crawford following for recs BP was elevated. Added hydralazine low dose. Can consider adding imdur in place of norvasc? Acute renal failure / Hyperkalemia - Renal ultrasound -ve for hydronephrosis. nephrology was consulted Likely due to acei, diuretics. But patient also mentions being on doxycyline for toe infect ion for past 6 months - Low potassium diet - EKG shows no ST changes, peaked T waves, T wave inversions - Kayexelate 30 mg x1 calcium gluconate given x1 Off ivf, bicarb now. Renal function improving. Creat 1.9 today Diabetes mellitus, Type 2, insulin dependent - Continue lantus, decreased to 10 units nightly - POC Glucose checks - SSI correction HbA1c = 6.4 Add heparin 5k The plan has explained in detail to the patient , all questions were answered.All data was reviewed. I explained radiology and lab findings and plan of care to patient and relatives and they v erbalized understanding and agreement and had no more questions for me after my interaction with them. More than 35 minutes spent directly face to face with patient and more than 65% s pent for physical examination and talking with patient and relatives at bedside, on chart review, coordinating care with other providers, formulating a plan of care and management as well as Computerized Physician Platform Beater. Disposition: Home ? Code Status: Full Code Gustavo Castorena MD 08/07/2018 10:50 AM Brynn Hanna MD - 8:47 AM PST Progress Notes by Brynn Crawford MD at 08/07/18 9768 Author: Brynn Crawford MD Service: Cardiology Author Type: Physician Filed: 08/07/18 0914 Date of Service: 08/07/18 0847 Status: Signed Climatologist: Brynn Crawford MD (Physician) [facility] Service: Cardiology/[facility] Progress Note RE: Maria Ines Martin : 1955 DATE OF SERVICE: 08/05/2018 PROVIDER:Brynn Crawford Pt is seen for F/U on: Cardiomyopathy, hyperkalemia SUBJECTIVE: She did well overnight. She is feeling better in general however her blood pressure continu es to be elevated. She is denying chest discomfort. She started on hydralazine. CURRENT MEDICATIONS: Scheduled Meds: amLODIPine 5 mg Oral Daily aspirin 81 mg Oral Daily with breakfast atorvastatin 10 mg Oral Nightly hydrALAZINE 50 mg Oral TID hydrochlorothiazide 25 mg Oral Daily insulin glargine 10 Units Subcutaneous Nightly insulin lispro (human) 0-10 Units Subcutaneous TID AC insulin lispro (human) 0-5 Units Subcutaneous Nightly Continuous Infusions: dextrose PRN Meds:.albuterol, dextrose, dextrose, dextrose, glucagon, glucagon, hydrOXYzine, LORazep am, melatonin ALLERGIES: Allergies Allergen Reactions Quinine Hallucinations PHYSICAL EXAM: BP 176/79 (BP Location: Left upper arm) | Pulse 66 | Temp 98.3 F (36.8 C) ( Oral) | Resp 20 | Ht 1.6 m (5' 3") | Wt 86.5 kg (190 lb 11.2 oz) | SpO2 100% | Breastfe eding? No | BMI 33.78 kg/m Intake/Output Summary (Last 24 hours) at 08/07/18 0847 Last data filed at 08/07/18 0846 Gross per 24 hour Intake 1038 ml Output 1400 ml Net -362 ml General Appearance: Alert, oriented, cooperative, no distress, appears stated age HEENT: Edentulous. No xanthelasmas. Extraocular movements were intact. No jaundice. Pupil es round and reactive. NECK: no JVD, lymphadenopathy. Trachea is at midline. Thyroid is not palpable. CARDIAC: There is normal S1 and S2. No added sounds, murmurs, gallop, or rub. CHEST: Normal bilateral symmetrical chest excursion. Good bilateral air entry with no crack les or wheezing. No evidence of dullness. ABDOMEN: Soft and lax. No tenderness. No palpable organs. Active bowel sounds. EXTREMITIES: No lower extremities edema. NEURO: Alert and oriented times three with no focal deficit. Cranial nerves are grossly no rmal. SKIN: No bruises or rash. Lab Review Lab Results Component Value Date NA 145 08/07/2018 K 5.2 (H) 08/07/2018 CL 113 (H) 08/07/2018 CO2 25 08/07/2018 BUN 51 (H) 08/07/2018 CREATININE 1.9 (H) 08/07/2018 No results found for: CKTOTAL, CKMB, CKMBINDEX, TROPONINI Lab Results Component Value Date WBC 5.64 08/07/2018 HGB 9.3 (L) 08/07/2018 HCT 28.2 (L) 08/07/2018 MCV 85.2 08/07/2018 PLT 146 (L) 08/07/2018 Lab Results Component Value Date GLUF 146 (H) 08/07/2018 HGBA1C 6.4 (H) 08/06/2018 No results found for: INR Cardiographics ECG: EKG during hyperkalemia showed sinus rhythm with no hyperacute T-wave or prolonged QRS Imaging Echocardiogram 08/06/2018 1. Overall left ventricular systolic function is normal with, an EF between 60 - 65 %. 2. There is moderate concentric left ventricular hypertrophy. 3. Mild mitral regurgitation is present. Scores: 1. [id number] Score: 2. Scottish Anginal Score: 3. NYHA Score: ASSESSMENT: 1. Hyperkalemia , resolved 2. Acute on chronic renal failure 3. Chest discomfort 4. Congestive heart failure, class II III, stage C, now warm and dry 5. Moderate cardiomyopathy 6. Diabetes mellitus 7. Hypertension 8. Hyperlipidemia 9. History of tobacco dependence 10. History of drug use 11. Peripheral vascular disease PLAN: She is feeling better in general. I did discuss with her the result of her echocardiogram [facility] suggested better ejection fraction than what it was reported previously at [facility]. Regardless with her history of chest discomforts I think limited coronary angio graphy still be needed however timing will be discussed based on the recommendations of the renal team. *This report has been prepared using a voice recognition system. The report was reviewed fo r accuracy, however, sound-alike word errors, addition and/or deletions may occur. If there is any question about this report please contact me. Brynn Crawford MD, F.A.C.C. 08/07/2018 8:47 AM onversion Transaction, Provider Unknown - 08/07/2018 6:26 AM PSTFormatting of this note might be different from t he original. Nurse Progress Note by Agustina Cade RN at 08/07/18625 Author: Agustina Cade RN Service: (none) Author Type: Registered Nurse Filed: 08/07/18626 Date of Service: 08/07/18625 Status: Signed Climatologist: Agustina Cade RN (Registered Nurse) End of shift audit complete. AGUSTINA CADE RN onver federico Transaction, Provider Unknown - 08/06/2018 5:18 PM PST Nurse Progress Note by Jacquie Miranda RN at 08/06/181717 Author: Jacquie Miranda RN Service: (none) Author Type: Registered Nurse Filed: 08/06/181718 Date of Service: 08/06/181717 Status: Signed Climatologist: Jacquie Miranda RN (Registered Nurse) End of shift chart check completed Gustavo Lara MD - 08/06/2018 1:52 PM PSTFormatting of this note might be different from the or iginal. Progress Notes by Gustavo Castorena MD at 08/06/18 450 Author: Gustavo Castorena MD Service: Internal Medicine Author Type: Physician Filed: 08/06/18 1352 Date of Service: 08/06/18 837 Status: Signed Climatologist: Gustavo Castorena MD (Physician) [facility] Service: Hospitalist Progress Note Hospital Day: LOS: 0 days SUBJECTIVE Feels much better today HPI: Ms. 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 She presented from outpatient for scheduled cardiac cath with Dr. Crawford. She had routine labs drawn yesterday which showed hyperkalemia to 6.4. She was n otified of results but was symptomatic. Labs were re-drawn on arrival and repeat K was 5.8. She is asymptomatic. Cardiology decided to forgo scheduled cath given acute renal failure. H ospitalist and nephrology were consulted. Labs: Na 142, K 5.8, Ch 112, CO2 19, BUN 64, Cr 2.6, Glu 111. EKG: Sinus margret, no ST changes, no T wave peaks or inversions. Home medications - patient taking torsemide 10 mg QAM and 5 mg QPM, which may have precipit ated renal failure. She was also recently started on lisinopril in January when diagnosis was m rivka. Patient Summary: Ev Scheduled Medications aspirin 81 mg Oral Daily with breakfast atorvastatin 10 mg Oral Nightly insulin glargine 10 Units Subcutaneous Nightly insulin lispro (human) 0-10 Units Subcutaneous TID AC insulin lispro (human) 0-5 Units Subcutaneous Nightly Continuous Infusions dextrose sodium bicarbonate (nephro protective) infusion 75 mL/hr (08/06/18 0908) PRN Medications albuterol, dextrose, dextrose, dextrose, glucagon, glucagon, hydrOXYzine, LORazepam, melato jean-paul OBJECTIVE Vital Signs: BP 184/81 (BP Location: Right upper arm) | Pulse 69 | Temp 97.9 F (36.6 C) (Oral) | Resp 18 | Ht 1.6 m (5' 3") | Wt 87.5 kg (193 lb) | SpO2 99% | ? No | BMI 3 4.19 kg/m Patient Vitals for the past 24 hrs: BP Temp Temp src Pulse Resp SpO2 Height Weight 08/06/18 1133 184/81 97.9 F (36.6 C) Oral 69 18 99 % - - 08/06/18 0711 189/84 97.8 F (36.6 C) Oral 65 18 99 % - - 08/06/18 0357 172/81 96.5 F (35.8 C) Axillary 65 16 98 % - - 08/05/18 2323 172/77 98.2 F (36.8 C) Oral 72 16 92 % - - 08/05/18 1912 151/67 98.3 F (36.8 C) Oral 62 16 99 % - - 08/05/18 1724 167/74 97.8 F (36.6 C) Oral 64 20 100 % - - 08/05/18 1359 155/67 97.8 F (36.6 C) Oral 58 20 99 % 1.6 m (5' 3") 87.5 kg (193 lb) Intake/Output Summary (Last 24 hours) at 08/06/18 1355 Last data filed at 08/06/18 1205 Gross per 24 hour Intake 1300 ml Output 200 ml Net 1100 ml Physical Exam: Constitutional: Alert and oriented to person, place, and time.OBESE FEMALE IN BED NO DISTRE SS HEENT: Neck supple, no JVD, non icteric sclera. Cardiovascular: Normal rate, regular rhythm, normal heart sounds with S1 and S2, Exam re veals no gallop and no friction rub. No murmur heard. Pulmonary/Chest: Effort normal and breath sounds normal. No stridor. No respiratory distres s. no wheezes. no rales. exhibits no tenderness. Abdominal: Soft. Bowel sounds are normal. exhibits no distension and no palpable mass. Ther e is no tenderness. There is no rebound and no guarding. Extremeties/Musculoskeletal: Normal range of motion.exhibits no tenderness. exhibits +1 ed miya. Neurological: Alert and oriented to person, place, and time. Skin: Skin is warm and dry. PALLOR DATA Recent Labs Lab 08/06/18 0605 08/05/18 1100 WBC 5.48 5.91 RBC 3.30* 3.67* HGB 9.3* 10.2* HCT 28.2* 31.1* MCV 85.7 84.8 MCH 28.4 27.8 MCHC 33.1 32.8 RDW 42.9 42.0 PLT 153 182 MPV 10.4 10.3 DIFFTYPE -- AUTOMATED Recent Labs Lab 08/06/18 1201 08/06/18 0605 08/06/18 0036 08/05/18 1100 08/04/18 1147 NA -- 143 -- -- 142 137 K 4.8 5.1* 5.5* < > 5.8* 6.4* CL -- 116* -- -- 112* 109* CO2 -- 21* -- -- 19* 23 BUN -- 55* -- -- 64* 60* CREATININE -- 2.0* -- -- 2.6* 2.30* GLUF -- 101* -- -- 111* 148* < > = values in this interval not displayed. No results for input(s): CKTOTAL, TROPONINI, TROPONINT, CKMBINDEX in the last 168 hours. Recent Labs Lab 08/06/18 0605 PHOS 4.7 Recent Labs Lab 08/06/18 0605 MG 2.1 Invalid input(s): ABG No results for input(s): CALCIUM in the last 168 hours. No results for input(s): APTT, INR, PTT in the last 168 hours. Xr Chest 2 View Result Date: 08/06/2018 No acute cardiopulmonary abnormality. Signed by: Sachin Adam Sign Date/Time: 08/06/2018 11 :43 AM [facility] Kidneys And Bladder Result Date: 08/06/2018 Normal-sized both kidneys without hydronephrosis. Urinary bladder is incompletely evaluated . Bilateral ureteric jets are not visualized. Signed by: Gregorio Alfaro Sign Date/Time: 08/06/2018 9:09 AM PROBLEM LIST Principal Problem: Acute renal failure (HCC) Active Problems: Chronic systolic heart failure (HCC) Hyperkalemia Essential hypertension Type 2 diabetes mellitus with complication, with long-term current use of insulin (HCC) ASSESSMENT / PLAN Heart failure reduced ejection fracture, - Hold home toresemide/lasix - Hold lisinopril - Continue coreg 6.25 mg BID - continue aspirin 81 mg daily - Continue atorvastatin Monitor for overload Echo pending Dr Crawford following for recs BP elevated. Add hydralazine low dose and Acute renal failure / Hyperkalemia - Renal ultrasound -ve for hydronephrosis. nephrology consulted Likely due to acei, diuretics. But patient also mentions being on doxycyline for toe infect ion for past 6 months - Low potassium diet - EKG shows no ST changes, peaked T waves, T wave inversions - Kayexelate 30 mg x1 calcium gluconate given x1 - continue IVF bicarb Last K 4.8. Diabetes mellitus, Type 2, insulin dependent - Continue lantus, decrease to 10 units nightly in setting of ARF - POC Glucose checks - SSI correction The plan has explained in detail to the patient , all questions were answered.All data was reviewed. I explained radiology and lab findings and plan of care to patient and relatives and they v erbalized understanding and agreement and had no more questions for me after my interaction with them. More than 35 minutes spent directly face to face with patient and more than 65% s pent for physical examination and talking with patient and relatives at bedside, on chart review, coordinating care with other providers, formulating a plan of care and management as well as Computerized Physician Platform Beater. Disposition: Home ? Code Status: Full Code Gustavo Castorena MD 08/06/2018 1:55 PM onversion Transactio n, Provider Unknown - 08/06/2018 12:04 PM PST Progress Notes by Anjali Kerr RD at 08/06/18 1204 Author: Anjali Kerr RD Service: (none) Author Type: Registered Dietitian Filed: 08/06/18 1205 Date of Service: 08/06/18 120 Status: Signed Climatologist: Anjali Kerr RD (Registered Dietitian) 08/06/18 0834 Subjective Timepoint Admit Pt c/o Pt triggered for dysphagia. Pt admitted for acute renal failure. Reported by Patient Diet Experience Self-selected diet(s) followed Pt reports she was eating all kinds of foods GUIDE WINDER. Pt went ov er her hx of doing meth in the past and how she didn't use to eat. Fluid / Beverage Intake Oral Fluids Amount Fluids ad marlyn. Food Intake Amount of Food Pt requested an orange sherbet float. Notified kitchen. Per charting pt had 100% of dinner last night. Type of Food / Meals Pre-dialysis diet- 60 g pro, 2 g Na, 2 g K+ Parenteral Nutrition Intake Rate/Solution Na Bicarb at 75 ml/hr. Nutrition-Focused Physical Findings Digestive System (Mouth to Rectum) Pt reports she doesn't have any teeth but is still able to eat whatever foods she wants. Per pt over the past couple of weeks it feels like her thro at has been closing up but that hasn't happened in the hospital. If any concerns for dysphag ia consider ordering LABELS MOLDER eval. Anthropometrics Weight change Pt's BMI is 34 and pt is 166% of IBW. Pt reports she has gained wt over the p ast 4 months after stopping meth. Biochemical data, medical tests, and procedures reviewed Biochemical data, medical tests, and procedures reviewed Labs reviewed. Recommendations Recommended energy needs Continue diet as ordered with modications per LABELS MOLDER, if needed. Enco urage po intake as tolerated. Monitor and follow as indicated. Nutritional Risk Nutritional risk Low Follow up date 08/13/[address] Brynn Merrill MD - 08/06/2018 8:51 AM PSTFormatting of this note might be different from the orig inal. Progress Notes by Brynn Crawford MD at 08/06/18 0851 Author: Brynn Crawford MD Service: Cardiology Author Type: Physician Filed: 08/06/18 0936 Date of Service: 08/06/18850 Status: Signed Climatologist: Brynn Crawford MD (Physician) [facility] Service: Cardiology/[facility] Progress Note RE: Maria Ines Hunt Mario : 1955 DATE OF SERVICE: 08/05/2018 PROVIDER:Brynn Crawford Pt is seen for F/U on: Cardiomyopathy, hyperkalemia SUBJECTIVE: She is feeling better today. Her potassium did drop. Her renal function has improved as wel l. She was emotional about her DNR status after she talked to her family yesterday. She did not have any chest discomfort since being in the hospital. She does still me that she had ch est discomfort prior to admission since CURRENT MEDICATIONS: Scheduled Meds: aspirin 81 mg Oral Daily with breakfast atorvastatin 10 mg Oral Nightly insulin glargine 10 Units Subcutaneous Nightly insulin lispro (human) 0-10 Units Subcutaneous TID AC insulin lispro (human) 0-5 Units Subcutaneous Nightly Continuous Infusions: dextrose sodium bicarbonate (nephro protective) infusion PRN Meds:.albuterol, dextrose, dextrose, dextrose, glucagon, glucagon, hydrOXYzine, melaton in ALLERGIES: Allergies Allergen Reactions Quinine Hallucinations PHYSICAL EXAM: BP 189/84 (BP Location: Right upper arm) | Pulse 65 | Temp 97.8 F (36.6 C) (Oral) | Resp 18 | Ht 1.6 m (5' 3") | Wt 87.5 kg (193 lb) | SpO2 99% | ? N o | BMI 34.19 kg/m Intake/Output Summary (Last 24 hours) at 08/06/18 0852 Last data filed at 08/06/18 0400 Gross per 24 hour Intake 700 ml Output 0 ml Net 700 ml General Appearance: Alert, oriented, cooperative, no distress, appears stated age HEENT: Edentulous. No xanthelasmas. Extraocular movements were intact. No jaundice. Pupil es round and reactive. NECK: no JVD, lymphadenopathy. Trachea is at midline. Thyroid is not palpable. CARDIAC: There is normal S1 and S2. No added sounds, murmurs, gallop, or rub. CHEST: Normal bilateral symmetrical chest excursion. Good bilateral air entry with no crack les or wheezing. No evidence of dullness. ABDOMEN: Soft and lax. No tenderness. No palpable organs. Active bowel sounds. EXTREMITIES: No lower extremities edema. NEURO: Alert and oriented times three with no focal deficit. Cranial nerves are grossly no rmal. SKIN: No bruises or rash. Lab Review Lab Results Component Value Date NA 143 08/06/2018 K 5.1 (H) 08/06/2018 CL 116 (H) 08/06/2018 CO2 21 (L) 08/06/2018 BUN 55 (H) 08/06/2018 CREATININE 2.0 (H) 08/06/2018 No results found for: CKTOTAL, CKMB, CKMBINDEX, TROPONINI Lab Results Component Value Date WBC 5.48 08/06/2018 HGB 9.3 (L) 08/06/2018 HCT 28.2 (L) 08/06/2018 MCV 85.7 08/06/2018 PLT 153 08/06/2018 Lab Results Component Value Date GLUF 101 (H) 08/06/2018 HGBA1C 6.4 (H) 08/06/2018 No results found for: INR Cardiographics ECG: EKG during hyperkalemia showed sinus rhythm with no hyperacute T-wave or prolonged QRS Imaging Chest X-Ray: Scores: 1. [id number] Score: 2. Scottish Anginal Score: 3. NYHA Score: ASSESSMENT: 1. Hyperkalemia 2. Acute on chronic renal failure 3. Chest discomfort 4. Congestive heart failure, class II III, stage C, now warm and dry 5. Moderate cardiomyopathy 6. Diabetes mellitus 7. Hypertension 8. Hyperlipidemia 9. History of tobacco dependence 10. History of drug use 11. Peripheral vascular disease PLAN: Her kidney function is improving based on her current lab. Hyperkalemia almost totally reso lved. Regardless the decision for or angiography will be postponed at this time until furthe r recommendations from renal team is obtained. I will get an echocardiogram to evaluate her left ventricular systolic function. If her ejection fraction continues to be low then perhap s an alternative approach with hydralazine and long-acting nitrate should be considered. Sarah st x-ray will be done. I did talk to her about her DNR status and evidently after she talked to her family and explained to her what DNR means she is resending the decision to full cod e although she expresses her wishes not to the left vegetable. I will continue to follow. *This report has been prepared using a voice recognition system. The report was reviewed fo r accuracy, however, sound-alike word errors, addition and/or deletions may occur. If there is any question about this report please contact me. Brynn Crawford MD, F.A.C.C. 08/06/2018 8:52 AM onversion Transaction, Provider Unknown - 08/06/2018 5:18 AM PSTFormatting of this note might be different from t he original. Nurse Progress Note by Cheryl Patel RN at 08/06/18517 Author: Cheryl Patel RN Service: (none) Author Type: Registered Nurse Filed: 08/06/18517 Date of Service: 08/06/18517 Status: Signed Climatologist: Cheryl Patel RN (Registered Nurse) End of shift audit complete. onver federico Transaction, Provider Unknown - 08/05/2018 5:56 PM PST Nurse Progress Note by Ghada Crawley RN at 08/05/181755 Author: Ghada Crawley RN Service: (none) Author Type: Registered Nurse Filed: 08/05/181755 Date of Service: 08/05/18 1756 Status: Signed Climatologist: Ghada Crawley RN (Registered Nurse) End of shift review complete GHADA CRAWLEY RN Brynn Merrill MD - 08/05/2018 1:38 PM PSTFormatting of this note might be different from the orig inal. Progress Notes by Brynn Crawford MD at 08/05/18 2117 Author: Brynn Crawford MD Service: Cardiology Author Type: Physician Filed: 08/05/18 7514 Date of Service: 08/05/18 3600 Status: Signed Climatologist: Brynn Crawford MD (Physician) Mrs. Martin presented for her prescheduled cardiac catheterization. Evidently she did have a r outine lab draw yesterday which suggested worsening renal function as well as hyperkalemia. Evidently she did not receive any phone call yesterday with regard to that lab tests. Her la b tests were repeated today and continued to show hyperkalemia with potassium of 5.8. Althou gh she is asymptomatic today I recommended cancellation of the procedure and for the patient to be admitted for evaluation of her hyperkalemia and what appears to be acute renal failur e.. Lisinopril need to be stopped. RE: Maria Ines Martin : 1955 DATE OF SERVICE: 07/18/2018 PROVIDER:Brynn Crawford CHIEF COMPLAINT: Chief Complaint Patient presents with Coronary Artery Disease and CHF transfer care from Dr. Gaitan HISTORY OF PRESENT ILLNESS: Ms. Maria Ines Martin is a 63-year-old lady who presented for evaluation of possible ischemic cardiomyopathy. Mrs. Martin carries the diagnoses of history of amphetamine use, tobacco dependence, diabetes mellitus and hypertension. She presented initially with shortness of breath and chest disco mfort and was seen by Dr. Vic Gaitan in [facility] for evaluation. An echoca rdiogram was obtained and suggested the presence of moderate LV dysfunction with ejection fr action around 40%-45%. She was treated aggressively with beta-josé luis, DANNI inhibitor as wel l as statin and was considered for coronary angiography; however, because of the presence of peripheral vascular disease, she was advised to have coronary angiography potentially from radial artery approach and therefore she was sent for evaluation in this office. She tells me that she has been drug-free for almost 6 months now, although she used drugs since she wa s 18 years old. 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 S he about 3 months ago started having some chest discomfort which she described as more like cramps in the upper chest. She started having also associated shortness of breath with no o rthopnea or PND but did have initial lower extremity edema. She denies any presyncope or sy ncope although she did have occasional palpitation. She has followed her prescribed medical regimen with no difficulty. She tells me her blood pressure continues to be sometimes elev ated but in general has been under reasonable control. She has no plan to go back to tobacc o or drug use. Objective Past medical history, SH, FH, and medications were reviewed in the chart. Medications: Current Outpatient Prescriptions: acetaminophen (TYLENOL) 325 MG tablet, Take 325 mg by mouth every 6 (six) hours as nee ded for Pain., Disp: , Rfl: aspirin 81 MG EC tablet, Take 81 mg by mouth daily., Disp: , Rfl: atorvastatin (LIPITOR) 10 MG tablet, Take 10 mg by mouth nightly., Disp: , Rfl: carvedilol (COREG) 6.25 MG tablet, Take 6.25 mg by mouth 2 (two) times daily with meal s., Disp: , Rfl: doxycycline (ADOXA) 50 MG tablet, Take 50 mg by mouth 2 (two) times daily., Disp: , Rf l: fexofenadine (TIAN) 180 MG tablet, Take 180 mg by mouth as needed., Disp: , Rfl: furosemide (LASIX) 20 MG tablet, Take 40 mg by mouth daily., Disp: , Rfl: insulin glargine (LANTUS) 100 UNIT/ML injection, Inject 25 Units into the skin nightly ., Disp: , Rfl: lisinopril (ZESTRIL) 10 MG tablet, Take 10 mg by mouth daily., Disp: , Rfl: melatonin 1 MG tablet, Take 1 mg by mouth nightly as needed., Disp: , Rfl: torsemide (DEMADEX) 20 MG tablet, Take 10 mg by mouth daily., Disp: , Rfl: ALLERGIES: Allergies Allergen Reactions Quinine Hallucinations REVIEW OF SYSTEMS: Constitutional: Positive for fatigue. No fever, chills, and rigors. No report of weight ch jim. HEENT: Negative for nosebleeds, ear discharge, nasal congestion or soar throat. Eyes: Negative for visual disturbance, redness, or secretion. Respiratory: Negative for cough, sputum production, hemoptysis, wheezing. Positive for exer tional shortness of breath. Cardiovascular: Negative for palpitations and no syncope. Negative for orthopnea. Positiv e chest pain or tightness. No LE edema. Gastrointestinal: Negative for nausea, vomiting, diarrhea, abdominal pain and blood in stoo l. Endocrine: Positive for diabetes mellitus Genitourinary: Negative for dysuria or hematuria. Musculoskeletal: Negative for myalgias. Positive for back pain and arthralgias. Skin: Negative for rash. Neurological: Negative for dizziness. No numbness. No recent falls. No slurred speech or am aurosis fugax. Negative for poor balance Hematological: No significant bruising. Psychiatric/Behavioral: No depression or anxiety. PHYSICAL EXAM Vital Signs: BP 106/62 (BP Location: Right upper arm, Patient Position: Sitting) | Pulse 58 | Resp 18 | Ht 1.6 m (5' 3") | Wt 87.5 kg (193 lb) | SpO2 100% | BMI 34.19 kg/m GENERAL APPEARANCE: Alert, oriented, cooperative, no distress, appears stated age. HEENT: No xanthelasmas. Extraocular movements were intact. No jaundice. Pupiles round and reactive. NECK: No JVD, lymphadenopathy. Trachea is at midline. Thyroid is not palpable. Carotid ups trokes normal. No carotid bruit heard. CARDIAC: Regular rhythm and rate. There is normal S1 and S2. No galop. No murmur. Pedal pu lses could not be felt. However both radial pulses were pounding. CHEST: Normal bilateral symmetrical chest excursion. Good bilateral air entry with no crack les or wheezing. No evidence of dullness. ABDOMEN: Soft and lax. No tenderness or guarding. No palpable organs. Active bowel sounds. No pulsatile mass felt. EXTREMITIES: No lower extremities edema. Occasioal varicose veins seen. NEURO: Alert and oriented times three with no focal deficit. Cranial nerves are grossly no rmal. SKIN: Warm and dry. No rash. Psych: Normal affect and mood. Lab Review No results found for: NA, K, CL, CO2, BUN, CREATININE, GLUCOSE, CALCIUM No results found for: CKTOTAL, CKMB, CKMBINDEX, TROPONINI No results found for: WBC, HGB, HCT, MCV, PLT No results found for: CHOL, TRIG, LDL, LDL, GLUF, HGBA1C No results found for: INR ECG: I reviewed her EKG from July 18, 2018 which showed normal sinus rhythm with no signifi cant ST or T-wave abnormalities. Scores: 1. [id number] Score: 4 2. Scottish Anginal Score: 2 3. NYHA Score: 2-3 Assessment/Plan ASSESSMENT: 1. 2. Chest discomfort 3. Congestive heart failure, class II III, stage C, now warm and dry 4. Diabetes mellitus 5. Hypertension 6. Hyperlipidemia 7. History of tobacco dependence 8. History of drug use 9. Peripheral vascular disease Plan: I congratulated Maria Ines about her life changes that she made about 6 months ago now. I talke d to her about the findings on her echocardiogram which suggested moderate LV dysfunction. Certainty, coronary artery disease is high on the differential diagnosis for her presentatio n as etiology for her cardiomyopathy. Coronary angiography indeed is indicated and I did ex plain to her the procedure via right radial artery and possible risks and benefits from it. Informed consent was obtained and at this time she will continue the same medical regimen. We will proceed with the procedure in the next couple of weeks. *This report has been prepared using a voice recognition system. The report was reviewed fo r accuracy, however, sound-alike word errors, addition and/or deletions may occur. If there is any question about this report please contact me. Brynn Crawford M.D., F.A.C.C 07/18/2018 documented in this enco unter Plan of Treatment +--------+---------+ + + + | Date | Type | Specialty | Care Team | Description | +--------+---------+ + + + | 09/27/ | Office | Nephrology | James Pearce MD | | | 2019 | Visit | | [address] [facility] | | | | | | [address] | | | | | | [address] | | | | | | | | +--------+---------+ + + + documented as of this encounter Procedures + +--------+ + + + | Procedure Name | Priori | Date/Time | Associated Diagnosis | Comments | | | ty | | | | + +--------+ + + + | POC GLUCOSE | Routin | 08/11/2018 | | Results for this | | | e | 11:36 AM | | procedure are in the | | | | PST | | results section. | + +--------+ + + + | POC GLUCOSE | Routin | 08/11/2018 | | Results for this | | | e | 5:23 AM | | procedure are in the | | | | PST | | results section. | + +--------+ + + + | RENAL FUNCTION PANEL | Routin | 08/11/2018 | | Results for this | | | e | 4:20 AM | | procedure are in the | | | | PST | | results section. | + +--------+ + + + | POC GLUCOSE | Routin | 08/10/2018 | | Results for this | | | e | 9:06 PM | | procedure are in the | | | | PST | | results section. | + +--------+ + + + | POC GLUCOSE | Routin | 08/10/2018 | | Results for this | | | e | 4:16 PM | | procedure are in the | | | | PST | | results section. | + +--------+ + + + | VAS ABDOMEN PELVIS | Routin | 08/10/2018 | | Results for this | | DUPLEX LIMITED | e | 12:28 PM | | procedure are in the | | | | PST | | results section. | + +--------+ + + + | POC GLUCOSE | Routin | 08/10/2018 | | Results for this | | | e | 12:00 PM | | procedure are in the | | | | PST | | results section. | + +--------+ + + + | POC GLUCOSE | Routin | 08/10/2018 | | Results for this | | | e | 5:30 AM | | procedure are in the | | | | PST | | results section. | + +--------+ + + + | CBC NO DIFFERENTIAL | Routin | 08/10/2018 | | Results for this | | | e | 4:17 AM | | procedure are in the | | | | PST | | results section. | + +--------+ + + + | RENAL FUNCTION PANEL | Routin | 08/10/2018 | | Results for this | | | e | 4:17 AM | | procedure are in the | | | | PST | | results section. | + +--------+ + + + | POC GLUCOSE | Routin | 08/09/2018 | | Results for this | | | e | 9:09 PM | | procedure are in the | | | | PST | | results section. | + +--------+ + + + | POC GLUCOSE | Routin | 08/09/2018 | | Results for this | | | e | 4:13 PM | | procedure are in the | | | | PST | | results section. | + +--------+ + + + | POC GLUCOSE | Routin | 08/09/2018 | | Results for this | | | e | 11:48 AM | | procedure are in the | | | | PST | | results section. | + +--------+ + + + | CBC NO DIFFERENTIAL | Routin | 08/09/2018 | | Results for this | | | e | 5:22 AM | | procedure are in the | | | | PST | | results section. | + +--------+ + + + | MAGNESIUM | Routin | 08/09/2018 | | Results for this | | | e | 5:22 AM | | procedure are in the | | | | PST | | results section. | + +--------+ + + + | RENAL FUNCTION PANEL | Routin | 08/09/2018 | | Results for this | | | e | 5:22 AM | | procedure are in the | | | | PST | | results section. | + +--------+ + + + | POC GLUCOSE | Routin | 08/09/2018 | | Results for this | | | e | 5:08 AM | | procedure are in the | | | | PST | | results section. | + +--------+ + + + | POC GLUCOSE | Routin | 08/08/2018 | | Results for this | | | e | 8:57 PM | | procedure are in the | | | | PST | | results section. | + +--------+ + + + | CV CARDIAC PROCEDURE | Routin | 08/08/2018 | | Results for this | | | e | 6:10 PM | | procedure are in the | | | | PST | | results section. | + +--------+ + + + | POC GLUCOSE | Routin | 08/08/2018 | | Results for this | | | e | 4:31 PM | | procedure are in the | | | | PST | | results section. | + +--------+ + + + | CONCETTA PROFILE, REFLEX | Routin | 08/08/2018 | | Results for this | | | e | 12:12 PM | | procedure are in the | | | | PST | | results section. | + +--------+ + + + | IRON AND IRON | Routin | 08/08/2018 | | Results for this | | BINDING CAPACITY | e | 12:12 PM | | procedure are in the | | | | PST | | results section. | + +--------+ + + + | KAPPA/LAMBDA LIGHT C | Routin | 08/08/2018 | | Results for this | | | e | 12:12 PM | | procedure are in the | | | | PST | | results section. | + +--------+ + + + | HEPATITIS PANEL, | Routin | 08/08/2018 | | Results for this | | CHRONIC | e | 12:12 PM | | procedure are in the | | | | PST | | results section. | + +--------+ + + + | C3 AND C4 | Routin | 08/08/2018 | | Results for this | | | e | 12:12 PM | | procedure are in the | | | | PST | | results section. | + +--------+ + + + | VITAMIN D, | Routin | 08/08/2018 | | Results for this | | DEFICIENCY SCREEN | e | 12:12 PM | | procedure are in the | | (25-HYDROXY) | | PST | | results section. | + +--------+ + + + | PARATHYROID HORMONE, | Routin | 08/08/2018 | | Results for this | | INTACT AND CALCIUM | e | 12:12 PM | | procedure are in the | | | | PST | | results section. | + +--------+ + + + | PROTEIN | Routin | 08/08/2018 | | Results for this | | ELECTROPHORESIS AND | e | 12:12 PM | | procedure are in the | | ARCHANA, SERUM | | PST | | results section. | + +--------+ + + + | URIC ACID | Routin | 08/08/2018 | | Results for this | | | e | 12:12 PM | | procedure are in the | | | | PST | | results section. | + +--------+ + + + | LACTATE | Routin | 08/08/2018 | | Results for this | | DEHYDROGENASE | e | 12:12 PM | | procedure are in the | | | | PST | | results section. | + +--------+ + + + | FERRITIN | Routin | 08/08/2018 | | Results for this | | | e | 12:12 PM | | procedure are in the | | | | PST | | results section. | + +--------+ + + + | POC GLUCOSE | Routin | 08/08/2018 | | Results for this | | | e | 12:03 PM | | procedure are in the | | | | PST | | results section. | + +--------+ + + + | POC GLUCOSE | Routin | 08/08/2018 | | Results for this | | | e | 5:53 AM | | procedure are in the | | | | PST | | results section. | + +--------+ + + + | CBC NO DIFFERENTIAL | Routin | 08/08/2018 | | Results for this | | | e | 4:40 AM | | procedure are in the | | | | PST | | results section. | + +--------+ + + + | MAGNESIUM | Routin | 08/08/2018 | | Results for this | | | e | 4:40 AM | | procedure are in the | | | | PST | | results section. | + +--------+ + + + | RENAL FUNCTION PANEL | Routin | 08/08/2018 | | Results for this | | | e | 4:40 AM | | procedure are in the | | | | PST | | results section. | + +--------+ + + + | POC GLUCOSE | Routin | 08/07/2018 | | Results for this | | | e | 9:07 PM | | procedure are in the | | | | PST | | results section. | + +--------+ + + + | POC GLUCOSE | Routin | 08/07/2018 | | Results for this | | | e | 4:15 PM | | procedure are in the | | | | PST | | results section. | + +--------+ + + + | BASIC METABOLIC | Routin | 08/07/2018 | | Results for this | | PANEL | e | 2:56 PM | | procedure are in the | | | | PST | | results section. | + +--------+ + + + | POC GLUCOSE | Routin | 08/07/2018 | | Results for this | | | e | 11:51 AM | | procedure are in the | | | | PST | | results section. | + +--------+ + + + | PROTEIN/CREATININE | Routin | 08/07/2018 | | Results for this | | RATIO, URINE | e | 9:00 AM | | procedure are in the | | | | PST | | results section. | + +--------+ + + + | MICROALBUMIN/CREATIN | Routin | 08/07/2018 | | Results for this | | INE RATIO, URINE | e | 9:00 AM | | procedure are in the | | TEST | | PST | | results section. | + +--------+ + + + | PROTEIN, URINE, | Routin | 08/07/2018 | | Results for this | | RANDOM | e | 9:00 AM | | procedure are in the | | | | PST | | results section. | + +--------+ + + + | CREATININE, URINE, | Routin | 08/07/2018 | | Results for this | | RANDOM | e | 9:00 AM | | procedure are in the | | | | PST | | results section. | + +--------+ + + + | POC GLUCOSE | Routin | 08/07/2018 | | Results for this | | | e | 5:36 AM | | procedure are in the | | | | PST | | results section. | + +--------+ + + + | CBC NO DIFFERENTIAL | Routin | 08/07/2018 | | Results for this | | | e | 4:41 AM | | procedure are in the | | | | PST | | results section. | + +--------+ + + + | MAGNESIUM | Routin | 08/07/2018 | | Results for this | | | e | 4:41 AM | | procedure are in the | | | | PST | | results section. | + +--------+ + + + | RENAL FUNCTION PANEL | Routin | 08/07/2018 | | Results for this | | | e | 4:41 AM | | procedure are in the | | | | PST | | results section. | + +--------+ + + + | POC GLUCOSE | Routin | 08/06/2018 | | Results for this | | | e | 9:02 PM | | procedure are in the | | | | PST | | results section. | + +--------+ + + + | POC GLUCOSE | Routin | 08/06/2018 | | Results for this | | | e | 4:36 PM | | procedure are in the | | | | PST | | results section. | + +--------+ + + + | ECHO COMPLETE | Routin | 08/06/2018 | | Results for this | | | e | 3:42 PM | | procedure are in the | | | | PST | | results section. | + +--------+ + + + | URINALYSIS WITH | Routin | 08/06/2018 | | Results for this | | MICROSCOPIC IF | e | 3:10 PM | | procedure are in the | | INDICATED | | PST | | results section. | + +--------+ + + + | URINALYSIS, | Routin | 08/06/2018 | | Results for this | | MICROSCOPIC ONLY | e | 3:10 PM | | procedure are in the | | | | PST | | results section. | + +--------+ + + + | POTASSIUM | Routin | 08/06/2018 | | Results for this | | | e | 12:01 PM | | procedure are in the | | | | PST | | results section. | + +--------+ + + + | POC GLUCOSE | Routin | 08/06/2018 | | Results for this | | | e | 11:35 AM | | procedure are in the | | | | PST | | results section. | + +--------+ + + + | XR CHEST 2 VIEWS | Routin | 08/06/2018 | | Results for this | | | e | 11:15 AM | | procedure are in the | | | | PST | | results section. | + +--------+ + + + | CBC NO DIFFERENTIAL | Routin | 08/06/2018 | | Results for this | | | e | 6:05 AM | | procedure are in the | | | | PST | | results section. | + +--------+ + + + | PHOSPHORUS | Routin | 08/06/2018 | | Results for this | | | e | 6:05 AM | | procedure are in the | | | | PST | | results section. | + +--------+ + + + | MAGNESIUM | Routin | 08/06/2018 | | Results for this | | | e | 6:05 AM | | procedure are in the | | | | PST | | results section. | + +--------+ + + + | HEMOGLOBIN A1C | Routin | 08/06/2018 | | Results for this | | | e | 6:05 AM | | procedure are in the | | | | PST | | results section. | + +--------+ + + + | BASIC METABOLIC | Routin | 08/06/2018 | | Results for this | | PANEL | e | 6:05 AM | | procedure are in the | | | | PST | | results section. | + +--------+ + + + | POC GLUCOSE | Routin | 08/06/2018 | | Results for this | | | e | 5:42 AM | | procedure are in the | | | | PST | | results section. | + +--------+ + + + | POTASSIUM | Routin | 08/06/2018 | | Results for this | | | e | 12:36 AM | | procedure are in the | | | | PST | | results section. | + +--------+ + + + | POC GLUCOSE | Routin | 08/05/2018 | | Results for this | | | e | 9:09 PM | | procedure are in the | | | | PST | | results section. | + +--------+ + + + | POTASSIUM | Routin | 08/05/2018 | | Results for this | | | e | 6:40 PM | | procedure are in the | | | | PST | | results section. | + +--------+ + + + | US RENAL LIMITED | Routin | 08/05/2018 | | Results for this | | | e | 3:57 PM | | procedure are in the | | | | PST | | results section. | + +--------+ + + + | EXTERNAL LAB: CBC | Routin | 08/05/2018 | | Results for this | | | e | 11:00 AM | | procedure are in the | | | | PST | | results section. | + +--------+ + + + | BASIC METABOLIC | Routin | 08/05/2018 | | Results for this | | PANEL | e | 11:00 AM | | procedure are in the | | | | PST | | results section. | + +--------+ + + + documented in this encounter Results POC Glucose (08/11/2018 11:36 AM PST) + + + + + + | Component | Value | Ref Range | Performed | Pathologist | | | | | At | Signature | + + + + + + | Glucose, | 151 (H)Comment: Testing | 65 - 99 mg/dL | EXTERNAL | | | Fingerstick | performed at [facility] [place] | | LAB | | | | [address];[place] | | | | | | [address] | | | | + + + + + + + + | Specimen | + + | | + + + +---------+ + + | Performing | Address | City/State/Zipcode | Phone Number | | Organization | | | | + +---------+ + + | EXTERNAL LAB | | | | + +---------+ + + POC Glucose (08/11/2018 5:23 AM PST) + + + + + + | Component | Value | Ref Range | Performed | Pathologist | | | | | At | Signature | + + + + + + | Glucose, | 133 (H)Comment: Testing | 65 - 99 mg/dL | EXTERNAL | | | Fingerstick | performed at [facility] | | LAB | | | | [address];[place], [place] | | | | | | [address] | | | | + + + + + + + + | Specimen | + + | | + + + +---------+ + + | Performing | Address | City/State/Zipcode | Phone Number | | Organization | | | | + +---------+ + + | EXTERNAL LAB | | | | + +---------+ + + Renal Function Panel (08/11/2018 4:20 AM PST) + + + + + + | Component | Value | Ref Range | Performed | Pathologist | | | | | At | Signature | + + + + + + | Na | 139 | 135 - 145 | EXTERNAL | | | | | mmol/L | LAB | | + + + + + + | K | 5.0 (H) | 3.5 - 4.9 | EXTERNAL | | | | | mmol/L | LAB | | + + + + + + | Cl | 108 | 99 - 109 mmol/L | EXTERNAL | | | | | | LAB | | + + + + + + | CO2 | 23 | 23 - 32 mmol/L | EXTERNAL | | | | | | LAB | | + + + + + + | Anion Gap | 13 | 5 - 20 mmol/L | EXTERNAL | | | | | | LAB | | + + + + + + | Glucose, | 148 (H) | 65 - 99 mg/dL | EXTERNAL | | | Fasting | | | LAB | | + + + + + + | BUN | 57 (H) | 8 - 25 mg/dL | EXTERNAL | | | | | | LAB | | + + + + + + | Creatinine | 2.2 (H) | 0.50 - 1.00 | EXTERNAL | | | | | mg/dL | LAB | | + + + + + + | Calcium | 7.6 (L) | 8.5 - 10.5 | EXTERNAL | | | | | mg/dL | LAB | | + + + + + + | Albumin | 2.1 (L) | 3.3 - 4.8 g/dL | EXTERNAL | | | | | | LAB | | + + + + + + | PHOSPHORUS | 5.2 (H) | 2.3 - 4.8 mg/dL | EXTERNAL | | | | | | LAB | | + + + + + + | Estimated | 23 (L)Comment: GFR <60: | mL/min/1.73m2 | EXTERNAL | | | GFR | CHRONIC KIDNEY DISEASE, | | LAB | | | | IF FOUND OVER A 3 MONTH | | | | | | PERIOD.GFR <15: KIDNEY | | | | | | FAILURE.FOR | | | | | | AMERICANS, MULTIPLY THE | | | | | | CALCULATED GFR BY | | | | | | 1.210.This eGFR is | | | | | | calculated using the | | | | | | MDRD IDMS traceable | | | | | | equation.Testing | | | | | | performed at [facility], [address] | | | | | [address], | | | | | | [place] [address] | | | | + + + + + + + + | Specimen | + + | Blood specimen | | (specimen) | + + + +---------+ + + | Performing | Address | City/State/Zipcode | Phone Number | | Organization | | | | + +---------+ + + | EXTERNAL LAB | | | | + +---------+ + + POC Glucose (08/10/2018 9:06 PM PST) + + + + + + | Component | Value | Ref Range | Performed | Pathologist | | | | | At | Signature | + + + + + + | Glucose, | 157 (H)Comment: Testing | 65 - 99 mg/dL | EXTERNAL | | | Fingerstick | performed at [facility] [place] | | LAB | | | | [address];[place], [place] | | | | | | [address] | | | | + + + + + + + + | Specimen | + + | | + + + +---------+ + + | Performing | Address | City/State/Zipcode | Phone Number | | Organization | | | | + +---------+ + + | EXTERNAL LAB | | | | + +---------+ + + POC Glucose (08/10/2018 4:16 PM PST) + + + + + + | Component | Value | Ref Range | Performed | Pathologist | | | | | At | Signature | + + + + + + | Glucose, | 181 (H)Comment: Testing | 65 - 99 mg/dL | EXTERNAL | | | Fingerstick | performed at [facility] [place] | | LAB | | | | [address];[place], [place] | | | | | | [address] | | | | + + + + + + + + | Specimen | + + | | + + + +---------+ + + | Performing | Address | City/State/Zipcode | Phone Number | | Organization | | | | + +---------+ + + | EXTERNAL LAB | | | | + +---------+ + + VAS Abdomen Pelvis Duplex Limited (08/10/2018 12:28 PM PST) + + | Specimen | + + | | + + + + + | Impressions | Performed At | + + + | 1. Findings do not suggest renal artery stenosis based off of peak | | | systolic velocity and renal aortic ratios. 2. The cortical resistive | | | indices are elevated and consistent with reported medical renal | | | disease. Doppler Criteria Renal Aortic Ratio (RAR) >3.5 = > 60% | | | stenosis Cortical Resistive Index (RI) >.70 suggests medical renal | | | disease (intrinsic) Signed by: Shanice Doyle Sign Date/Time: 08/10/2018 | | | 3:50 PM | | + + + + + + | Narrative | Performed At | + + + | ULTRASOUND KIDNEYS, DUPLEX CLINICAL INFORMATION: Chronic kidney | | | disease. Hypertension. COMPARISON: US KIDNEYS AND BLADDER | | | (08/05/2018); PROCEDURE: Grayscale evaluation of the kidneys and main | | | renal arteries, including color and spectral Doppler waveform | | | analysis. Evaluation of the bladder. FINDINGS: Ultrasound: Slightly | | | limited evaluation due to bowel gas and limited windows. The | | | kidneys demonstrate normal appearance and measure normal size at 10.8 | | | x 6.6 x 6.1 cm on the right and 11.3 x 5.4 x 7.5 cm on the left. | | | No significant cortical thinning. No hydronephrosis or visible | | | calculus. Further evaluation limited. Doppler (all velocities | | | cm/sec): Suprarenal Aorta: 101 Right Kidney: Renal Artery Peak | | | Systolic Velocity: 150 Renal Aortic Ratio: 1.02 Cortical Resistive | | | Index: 0.77-0.93 Right Renal Vein: Patent, 35 Left Kidney: Renal | | | Artery Peak Systolic Velocity: 131 Renal Aortic Ratio: 0.64-0.89 | | | Cortical Resistive Index: 0.82-0.93 Left Renal Vein: Patent, 70 | | + + + + + | Procedure Note | + + | Madhu, Rad Conversion - 03/03/2019 10:28 PM PDT ULTRASOUND KIDNEYS, DUPLEX | | CLINICAL INFORMATION: | | Chronic kidney disease. Hypertension. | | COMPARISON: | | US KIDNEYS AND BLADDER (08/05/2018); | | PROCEDURE: | | Grayscale evaluation of the kidneys and main renal arteries, including | | color and spectral Doppler waveform analysis. Evaluation of the bladder. | | FINDINGS: | | Ultrasound: Slightly limited evaluation due to bowel gas and limited | | windows. The kidneys demonstrate normal appearance and measure normal | | size at 10.8 x 6.6 x 6.1 cm on the right and 11.3 x 5.4 x 7.5 cm on the | | left. No significant cortical thinning. No hydronephrosis or visible | | calculus. Further evaluation limited. | | Doppler (all velocities cm/sec): | | Suprarenal Aorta: 101 | | Right Kidney: | | Renal Artery Peak Systolic Velocity: 150 | | Renal Aortic Ratio: 1.02 | | Cortical Resistive Index: 0.77-0.93 | | Right Renal Vein: Patent, 35 | | Left Kidney: | | Renal Artery Peak Systolic Velocity: 131 | | Renal Aortic Ratio: 0.64-0.89 | | Cortical Resistive Index: 0.82-0.93 | | Left Renal Vein: Patent, 70 | | IMPRESSION: | | 1. Findings do not suggest renal artery stenosis based off of peak | | systolic velocity and renal aortic ratios. | | 2. The cortical resistive indices are elevated and consistent with | | reported medical renal disease. | | Doppler Criteria | | Renal Aortic Ratio (RAR) >3.5 = > 60% stenosis | | Cortical Resistive Index (RI) >.70 suggests medical renal disease | | (intrinsic) | | Signed by: Shanice Doyle | | Sign Date/Time: 08/10/2018 3:50 PM | + + POC Glucose (08/10/2018 12:00 PM PST) + + + + + + | Component | Value | Ref Range | Performed | Pathologist | | | | | At | Signature | + + + + + + | Glucose, | 186 (H)Comment: Testing | 65 - 99 mg/dL | EXTERNAL | | | Fingerstick | performed at [facility] [place] | | LAB | | | | [address];[place], [place] | | | | | | [address] | | | | + + + + + + + + | Specimen | + + | | + + + +---------+ + + | Performing | Address | City/State/Zipcode | Phone Number | | Organization | | | | + +---------+ + + | EXTERNAL LAB | | | | + +---------+ + + POC Glucose (08/10/2018 5:30 AM PST) + + + + + + | Component | Value | Ref Range | Performed | Pathologist | | | | | At | Signature | + + + + + + | Glucose, | 160 (H)Comment: Testing | 65 - 99 mg/dL | EXTERNAL | | | Fingerstick | performed at [facility] | | LAB | | | | [address];[place] | | | | | | [address] | | | | + + + + + + + + | Specimen | + + | | + + + +---------+ + + | Performing | Address | City/State/Zipcode | Phone Number | | Organization | | | | + +---------+ + + | EXTERNAL LAB | | | | + +---------+ + + CBC no Differential (08/10/2018 4:17 AM PST) + + + + + + | Component | Value | Ref Range | Performed | Pathologist | | | | | At | Signature | + + + + + + | WBC | 5.46 | 3.80 - 11.00 | EXTERNAL | | | | | K/uL | LAB | | + + + + + + | RED CELL | 3.17 (L) | 3.70 - 5.10 | EXTERNAL | | | COUNT | | M/uL | LAB | | + + + + + + | Hgb | 8.9 (L) | 11.3 - 15.5 | EXTERNAL | | | | | g/dL | LAB | | + + + + + + | Hematocrit, | 26.9 (L) | 34.0 - 46.0 % | EXTERNAL | | | POC | | | LAB | | + + + + + + | MCV | 84.8 | 80.0 - 100.0 fl | EXTERNAL | | | | | | LAB | | + + + + + + | MCH | 28.0 | 27.0 - 34.0 pg | EXTERNAL | | | | | | LAB | | + + + + + + | MCHC | 33.1 | 32.0 - 35.5 | EXTERNAL | | | | | g/dL | LAB | | + + + + + + | RDW-CV | 41.1 | 37 - 53 fl | EXTERNAL | | | | | | LAB | | + + + + + + | Platelet | 148 (L) | 150 - 400 K/uL | EXTERNAL | | | Count | | | LAB | | | Plasma | | | | | + + + + + + | MPV | 10.3Comment: Testing | fl | EXTERNAL | | | | performed at [facility], [address] | | LAB | | | | [address], | | | | | | [place] [address] | | | | + + + + + + + + | Specimen | + + | | + + + +---------+ + + | Performing | Address | City/State/Zipcode | Phone Number | | Organization | | | | + +---------+ + + | EXTERNAL LAB | | | | + +---------+ + + Renal Function Panel (08/10/2018 4:17 AM PST) + + + + + + | Component | Value | Ref Range | Performed | Pathologist | | | | | At | Signature | + + + + + + | Na | 139 | 135 - 145 | EXTERNAL | | | | | mmol/L | LAB | | + + + + + + | K | 4.9 | 3.5 - 4.9 | EXTERNAL | | | | | mmol/L | LAB | | + + + + + + | Cl | 107 | 99 - 109 mmol/L | EXTERNAL | | | | | | LAB | | + + + + + + | CO2 | 24 | 23 - 32 mmol/L | EXTERNAL | | | | | | LAB | | + + + + + + | Anion Gap | 13 | 5 - 20 mmol/L | EXTERNAL | | | | | | LAB | | + + + + + + | Glucose, | 165 (H) | 65 - 99 mg/dL | EXTERNAL | | | Fasting | | | LAB | | + + + + + + | BUN | 53 (H) | 8 - 25 mg/dL | EXTERNAL | | | | | | LAB | | + + + + + + | Creatinine | 2.3 (H) | 0.50 - 1.00 | EXTERNAL | | | | | mg/dL | LAB | | + + + + + + | Calcium | 7.7 (L) | 8.5 - 10.5 | EXTERNAL | | | | | mg/dL | LAB | | + + + + + + | Albumin | 2.1 (L) | 3.3 - 4.8 g/dL | EXTERNAL | | | | | | LAB | | + + + + + + | PHOSPHORUS | 4.7 | 2.3 - 4.8 mg/dL | EXTERNAL | | | | | | LAB | | + + + + + + | Estimated | 22 (L)Comment: GFR <60: | mL/min/1.73m2 | EXTERNAL | | | GFR | CHRONIC KIDNEY DISEASE, | | LAB | | | | IF FOUND OVER A 3 MONTH | | | | | | PERIOD.GFR <15: KIDNEY | | | | | | FAILURE.FOR | | | | | | AMERICANS, MULTIPLY THE | | | | | | CALCULATED GFR BY | | | | | | 1.210.This eGFR is | | | | | | calculated using the | | | | | | MDRD IDMS traceable | | | | | | equation.Testing | | | | | | performed at [facility], [address] | | | | | | [facility], | | | | | | [place] [address] | | | | + + + + + + + + | Specimen | + + | | + + + +---------+ + + | Performing | Address | City/State/Zipcode | Phone Number | | Organization | | | | + +---------+ + + | EXTERNAL LAB | | | | + +---------+ + + POC Glucose (08/09/2018 9:09 PM PST) + + + + + + | Component | Value | Ref Range | Performed | Pathologist | | | | | At | Signature | + + + + + + | Glucose, | 194 (H)Comment: Testing | 65 - 99 mg/dL | EXTERNAL | | | Fingerstick | performed at [facility] | | LAB | | | | [address];[place], [place] | | | | | | [address] | | | | + + + + + + + + | Specimen | + + | | + + + +---------+ + + | Performing | Address | City/State/Zipcode | Phone Number | | Organization | | | | + +---------+ + + | EXTERNAL LAB | | | | + +---------+ + + POC Glucose (08/09/2018 4:13 PM PST) + + + + + + | Component | Value | Ref Range | Performed | Pathologist | | | | | At | Signature | + + + + + + | Glucose, | 127 (H)Comment: Testing | 65 - 99 mg/dL | EXTERNAL | | | Fingerstick | performed at [facility] | | LAB | | | | [address];[place], [place] | | | | | | [address] | | | | + + + + + + + + | Specimen | + + | | + + + +---------+ + + | Performing | Address | City/State/Zipcode | Phone Number | | Organization | | | | + +---------+ + + | EXTERNAL LAB | | | | + +---------+ + + POC Glucose (08/09/2018 11:48 AM PST) + + + + + + | Component | Value | Ref Range | Performed | Pathologist | | | | | At | Signature | + + + + + + | Glucose, | 110 (H)Comment: Testing | 65 - 99 mg/dL | EXTERNAL | | | Fingerstick | performed at [facility] | | LAB | | | | [address];[place] | | | | | | [address] | | | | + + + + + + + + | Specimen | + + | | + + + +---------+ + + | Performing | Address | City/State/Zipcode | Phone Number | | Organization | | | | + +---------+ + + | EXTERNAL LAB | | | | + +---------+ + + CBC no Differential (08/09/2018 5:22 AM PST) + + + + + + | Component | Value | Ref Range | Performed | Pathologist | | | | | At | Signature | + + + + + + | WBC | 5.17 | 3.80 - 11.00 | EXTERNAL | | | | | K/uL | LAB | | + + + + + + | RED CELL | 3.42 (L) | 3.70 - 5.10 | EXTERNAL | | | COUNT | | M/uL | LAB | | + + + + + + | Hgb | 9.6 (L) | 11.3 - 15.5 | EXTERNAL | | | | | g/dL | LAB | | + + + + + + | Hematocrit, | 29.0 (L) | 34.0 - 46.0 % | EXTERNAL | | | POC | | | LAB | | + + + + + + | MCV | 85.0 | 80.0 - 100.0 fl | EXTERNAL | | | | | | LAB | | + + + + + + | MCH | 28.1 | 27.0 - 34.0 pg | EXTERNAL | | | | | | LAB | | + + + + + + | MCHC | 33.1 | 32.0 - 35.5 | EXTERNAL | | | | | g/dL | LAB | | + + + + + + | RDW-CV | 41.6 | 37 - 53 fl | EXTERNAL | | | | | | LAB | | + + + + + + | Platelet | 161 | 150 - 400 K/uL | EXTERNAL | | | Count | | | LAB | | | Plasma | | | | | + + + + + + | MPV | 10.7Comment: Testing | fl | EXTERNAL | | | | performed at [facility], [address] | | LAB | | | | [address], | | | | | | [place] [address] | | | | + + + + + + + + | Specimen | + + | | + + + +---------+ + + | Performing | Address | City/State/Zipcode | Phone Number | | Organization | | | | + +---------+ + + | EXTERNAL LAB | | | | + +---------+ + + Magnesium (08/09/2018 5:22 AM PST) + + + + + + | Component | Value | Ref Range | Performed | Pathologist | | | | | At | Signature | + + + + + + | Magnesium | 2.1Comment: Testing | 1.7 - 2.4 mg/dL | EXTERNAL | | | | performed at [facility], [address] | | LAB | | | | [place] [address], | | | | | | [place] [address] | | | | + + + + + + + + | Specimen | + + | | + + + +---------+ + + | Performing | Address | City/State/Zipcode | Phone Number | | Organization | | | | + +---------+ + + | EXTERNAL LAB | | | | + +---------+ + + Renal Function Panel (08/09/2018 5:22 AM PST) + + + + + + | Component | Value | Ref Range | Performed | Pathologist | | | | | At | Signature | + + + + + + | Na | 140 | 135 - 145 | EXTERNAL | | | | | mmol/L | LAB | | + + + + + + | K | 4.8 | 3.5 - 4.9 | EXTERNAL | | | | | mmol/L | LAB | | + + + + + + | Cl | 108 | 99 - 109 mmol/L | EXTERNAL | | | | | | LAB | | + + + + + + | CO2 | 22 (L) | 23 - 32 mmol/L | EXTERNAL | | | | | | LAB | | + + + + + + | Anion Gap | 15 | 5 - 20 mmol/L | EXTERNAL | | | | | | LAB | | + + + + + + | Glucose, | 140 (H) | 65 - 99 mg/dL | EXTERNAL | | | Fasting | | | LAB | | + + + + + + | BUN | 48 (H) | 8 - 25 mg/dL | EXTERNAL | | | | | | LAB | | + + + + + + | Creatinine | 1.8 (H) | 0.50 - 1.00 | EXTERNAL | | | | | mg/dL | LAB | | + + + + + + | Calcium | 8.0 (L) | 8.5 - 10.5 | EXTERNAL | | | | | mg/dL | LAB | | + + + + + + | Albumin | 2.2 (L) | 3.3 - 4.8 g/dL | EXTERNAL | | | | | | LAB | | + + + + + + | PHOSPHORUS | 4.5 | 2.3 - 4.8 mg/dL | EXTERNAL | | | | | | LAB | | + + + + + + | Estimated | 29 (L)Comment: GFR <60: | mL/min/1.73m2 | EXTERNAL | | | GFR | CHRONIC KIDNEY DISEASE, | | LAB | | | | IF FOUND OVER A 3 MONTH | | | | | | PERIOD.GFR <15: KIDNEY | | | | | | FAILURE.FOR | | | | | | AMERICANS, MULTIPLY THE | | | | | | CALCULATED GFR BY | | | | | | 1.210.This eGFR is | | | | | | calculated using the | | | | | | MDRD IDMS traceable | | | | | | equation.Testing | | | | | | performed at [facility], [address] | | | | | [facility], | | | | | | [place] [address] | | | | + + + + + + + + | Specimen | + + | Blood specimen | | (specimen) | + + + +---------+ + + | Performing | Address | City/State/Zipcode | Phone Number | | Organization | | | | + +---------+ + + | EXTERNAL LAB | | | | + +---------+ + + POC Glucose (08/09/2018 5:08 AM PST) + + + + + + | Component | Value | Ref Range | Performed | Pathologist | | | | | At | Signature | + + + + + + | Glucose, | 133 (H)Comment: Testing | 65 - 99 mg/dL | EXTERNAL | | | Fingerstick | performed at [facility] | | LAB | | | | [address];[place], [place] | | | | | | [address] | | | | + + + + + + + + | Specimen | + + | | + + + +---------+ + + | Performing | Address | City/State/Zipcode | Phone Number | | Organization | | | | + +---------+ + + | EXTERNAL LAB | | | | + +---------+ + + POC Glucose (08/08/2018 8:57 PM PST) + + + + + + | Component | Value | Ref Range | Performed | Pathologist | | | | | At | Signature | + + + + + + | Glucose, | 158 (H)Comment: Testing | 65 - 99 mg/dL | EXTERNAL | | | Fingerstick | performed at [facility] | | LAB | | | | [address];[place] | | | | | | [address] | | | | + + + + + + + + | Specimen | + + | | + + + +---------+ + + | Performing | Address | City/State/Zipcode | Phone Number | | Organization | | | | + +---------+ + + | EXTERNAL LAB | | | | + +---------+ + + CV CARDIAC PROCEDURE (08/08/2018 6:10 PM PST) + + | Specimen | + + | | + + + + + | Narrative | Performed At | + + + | | | | | | | BRIEF HISTORY: Mrs. Martin is a 63-year-old lady with | | | multiple risk factor for CAD, who presented with chest discomfort and | | | mildly abnormal left ventricular systolic function. She was | | | referred for coronary angiography and possible intervention, | | | therefore, details regarding her presentation, kindly refer to my H | | | and P. PROCEDURES 1. Radial artery approach. 2. Selective | | | coronary angiography. 3. Left heart catheterization without left | | | ventriculogram to minimize the dye load. DESCRIPTION OF | | | PROCEDURE: The patient was brought to the catheterization lab in | | | the fasting state. She was prepped and draped in the usual sterile | | | fashion. Arterial access was obtained via right radial artery and a | | | 6-Guyanese sheath was placed. The JL-3.5 catheter was then advanced | | | under fluoroscopic guidance with the use of a J-tipped wire and | | | engaged with the left main. Projections of the left coronary system | | | were done with the use of contrast injections. The catheter was then | | | exchanged over JR4 catheter, which was advanced to the left | | | ventricle and the pressures were recorded. Hemodynamics of pullback | | | were recorded as well. Catheter was then engaged with the right | | | coronary artery, and projection of the right coronary artery was done | | | with the use of contrast injections. All equipments were then | | | removed. FINDINGS 1. Blood loss was 10 mL. 2. Contrast 20 | | | mL. HEMODYNAMICS 1. Aortic pressure 154/75 with a mean of 107, | | | LV 154/-5 with end-diastolic 23. 2. Gradient: There was no | | | gradient between the LV and aorta. CORONARY ANGIOGRAPHY 1. The | | | coronary system was right dominant. 2. The left main bifurcated | | | into the LAD and left circumflex. Left main was free of disease. 3. | | | Left anterior descending artery and the diagonal branches were free | | | of disease. 4. Left circumflex coronary artery and the marginal | | | branches were free of disease. 5. Right coronary artery was large, | | | dominant vessel and free of disease. CONCLUSIONS AND | | | RECOMMENDATIONS 1. No significant coronary artery disease. 2. | | | Recommend continuation of blood pressure control. Read by BRYNN | | | MD CON 08/10/2018 08:02 P | | + + + + + | Procedure Note | + + | Darin Leung Conversion - 03/11/2019 4:12 PM PDT | | | | BRIEF HISTORY: Mrs. Martin is a 63-year-old lady with | | multiple risk factor for CAD, who presented with chest discomfort and | | mildly abnormal left ventricular systolic function. She was referred for | | coronary angiography and possible intervention, therefore, details | | regarding her presentation, kindly refer to my H and P. | | | | PROCEDURES | | 1. Radial artery approach. | | 2. Selective coronary angiography. | | 3. Left heart catheterization without left ventriculogram to minimize the | | dye load. | | | | DESCRIPTION OF PROCEDURE: The patient was brought to the catheterization | | lab in the fasting state. She was prepped and draped in the usual sterile | | fashion. Arterial access was obtained via right radial artery and a | | 6-Guyanese sheath was placed. The JL-3.5 catheter was then advanced under | | fluoroscopic guidance with the use of a J-tipped wire and engaged with the | | left main. Projections of the left coronary system were done with the use | | of contrast injections. The catheter was then exchanged over JR4 catheter, | | which was advanced to the left ventricle and the pressures were recorded. | | Hemodynamics of pullback were recorded as well. Catheter was then engaged | | with the right coronary artery, and projection of the right coronary artery | | was done with the use of contrast injections. All equipments were then | | removed. | | | | FINDINGS | | 1. Blood loss was 10 mL. | | 2. Contrast 20 mL. | | | | HEMODYNAMICS | | 1. Aortic pressure 154/75 with a mean of 107, LV 154/-5 with end-diastolic | | 23. | | 2. Gradient: There was no gradient between the LV and aorta. | | | | CORONARY ANGIOGRAPHY | | 1. The coronary system was right dominant. | | 2. The left main bifurcated into the LAD and left circumflex. Left main | | was free of disease. | | 3. Left anterior descending artery and the diagonal branches were free of | | disease. | | 4. Left circumflex coronary artery and the marginal branches were free of | | disease. | | 5. Right coronary artery was large, dominant vessel and free of disease. | | | | CONCLUSIONS AND RECOMMENDATIONS | | 1. No significant coronary artery disease. | | 2. Recommend continuation of blood pressure control. | | | | Read by BRYNN CRAWFORD MD 08/10/2018 08:02 P | | | | | + + POC Glucose (08/08/2018 4:31 PM PST) + + + + + + | Component | Value | Ref Range | Performed | Pathologist | | | | | At | Signature | + + + + + + | Glucose, | 180 (H)Comment: Testing | 65 - 99 mg/dL | EXTERNAL | | | Fingerstick | performed at [facility] | | LAB | | | | [address];[place] | | | | | | [address] | | | | + + + + + + + + | Specimen | + + | | + + + +---------+ + + | Performing | Address | City/State/Zipcode | Phone Number | | Organization | | | | + +---------+ + + | EXTERNAL LAB | | | | + +---------+ + + Wolbach/Lambda Light C (08/08/2018 12:12 PM PST) + + + + + + | Component | Value | Ref Range | Performed | Pathologist | | | | | At | Signature | + + + + + + | Ig Wolbach | 96.5 (H)Comment: | mg/L | EXTERNAL | | | Free Light | Reference range: 3.3 to | | LAB | | | Chain | 19.4 | | | | + + + + + + | kaplamflc | 64.3 (H)Comment: | mg/L | EXTERNAL | | | | Reference range: 5.7 to | | LAB | | | | 26.3 | | | | + + + + + + | Wolbach/Lambd | 1.50Comment: Reference | | EXTERNAL | | | a Free | range: 0.26 to | | LAB | | | Light Chain | 1.65Testing performed at | | | | | Ratio | [facility], [address] | | | | | | [place] | | | | | | [address] | | | | + + + + + + + + | Specimen | + + | | + + + +---------+ + + | Performing | Address | City/State/Zipcode | Phone Number | | Organization | | | | + +---------+ + + | EXTERNAL LAB | | | | + +---------+ + + C3 and C4 (08/08/2018 12:12 PM PST) + + + + + + | Component | Value | Ref Range | Performed | Pathologist | | | | | At | Signature | + + + + + + | C3 | 132 | 90 - 180 mg/dL | EXTERNAL | | | COMPLEMENT | | | LAB | | + + + + + + | Complement | 26.0Comment: Testing | 10 - 40 mg/dL | EXTERNAL | | | Comp 4 | performed at [facility], [address] | | LAB | | | | [place], | | | | | | [place] [address] | | | | + + + + + + + + | Specimen | + + | | + + + +---------+ + + | Performing | Address | City/State/Zipcode | Phone Number | | Organization | | | | + +---------+ + + | EXTERNAL LAB | | | | + +---------+ + + Hepatitis Panel, Chronic (08/08/2018 12:12 PM PST) + + + + + + | Component | Value | Ref Range | Performed | Pathologist | | | | | At | Signature | + + + + + + | Hep A Total | REACTIVE (A) | | EXTERNAL | | | Ab Interp | | | LAB | | + + + + + + | HEP B | NON REACTIVE | | EXTERNAL | | | SURFACE | | | LAB | | | ANTIBODY | | | | | + + + + + + | Hepatitis B | NON REACTIVE | | EXTERNAL | | | Core Ab | | | LAB | | | Total | | | | | + + + + + + | HEP B | <0.35Comment: <1.00 | IV | EXTERNAL | | | SURFACE | Non Immune1.00 | | LAB | | | ANTIBODY | OR MORE Indicates | | | | | | vaccine response or | | | | | | response to HBV | | | | | | infection. An Index | | | | | | Value (IV) of 1.00 is | | | | | | equivalent to 10 mIU/mL. | | | | | | Samples with an IV of | | | | | | 1.00 or greater are | | | | | | considered reactive | | | | | | (protected) in | | | | | | accordance with CDC | | | | | | Guidelines. | | | | + + + + + + | HCV Ab | NON REACTIVE | | EXTERNAL | | | | | | LAB | | + + + + + + | Hepatitis | Current or past HAV | | EXTERNAL | | | Interpretat | infection. No serologic | | LAB | | | ion | evidence of HCV | | | | | | infection or HBV | | | | | | infection or | | | | | | vaccination.Comment: | | | | | | Testing performed at | | | | | | [facility], [address] [facility] | | | | | | [place] | | | | | | [address] | | | | + + + + + + + + | Specimen | + + | | + + + +---------+ + + | Performing | Address | City/State/Zipcode | Phone Number | | Organization | | | | + +---------+ + + | EXTERNAL LAB | | | | + +---------+ + + Iron and Iron Binding Capacity (08/08/2018 12:12 PM PST) + + + + + + | Component | Value | Ref Range | Performed | Pathologist | | | | | At | Signature | + + + + + + | Iron | 50 | 30 - 180 ug/dL | EXTERNAL | | | | | | LAB | | + + + + + + | TIBC | 211 (L) | 260 - 490 ug/dL | EXTERNAL | | | | | | LAB | | + + + + + + | Iron | 24Comment: Testing | 15 - 50 % | EXTERNAL | | | Saturation | performed at [facility], [address] | | LAB | | | | [place], | | | | | | [place] [address] | | | | + + + + + + + + | Specimen | + + | Blood specimen | | (specimen) | + + + +---------+ + + | Performing | Address | City/State/Zipcode | Phone Number | | Organization | | | | + +---------+ + + | EXTERNAL LAB | | | | + +---------+ + + Parathyroid Hormone, Intact and Calcium (08/08/2018 12:12 PM PST) + + + + + + | Component | Value | Ref Range | Performed | Pathologist | | | | | At | Signature | + + + + + + | Calcium | 8.0 (L) | 8.5 - 10.5 | EXTERNAL | | | | | mg/dL | LAB | | + + + + + + | PTH Intact | 126.9 (H)Comment: | 12 - 88 pg/mL | EXTERNAL | | | | Nomogram suggests | | LAB | | | | Secondary | | | | | | Hyperparathyroidism: | | | | | | Rickets, Osteomalacia, | | | | | | Chronic Renal Failure, | | | | | | Fanconi Syndrome, Renal | | | | | | Tubular Acidosis, | | | | | | Vitamin D deficiency | | | | | | secondary to | | | | | | Malabsorption, Renal | | | | | | Failure or Pseudo | | | | | | Hyperparathyroidism.Diag | | | | | | nosis of parathyroid | | | | | | disease requires both | | | | | | clinical and laboratory | | | | | | data.Testing performed | | | | | | at [facility], [address] | | | | | | [place], | | | | | | [place] [address] | | | | + + + [...] + + Vitamin D, Deficiency Screen (25-Hydroxy) (08/08/2018 12:12 PM PST) + + + + + + | Component | Value | Ref Range | Performed | Pathologist | | | | | At | Signature | + + + + + + | Vit D, | <12 (L)Comment: <20 | 30 - 150 ng/mL | EXTERNAL | | | 25-Hydroxy | ng/mL Suggests | | LAB | | | | deficiency of 25-OH | | | | | | Vitamin D.20-29 ng/mL | | | | | | Suggests a relative | | | | | | insufficiency of 25-OH | | | | | | Vitamin D.30-150 ng/mL | | | | | | Suggests a sufficient | | | | | | level of 25-OH Vitamin | | | | | | D.>150 ng/mL Toxic | | | | | | level of 25-OH Vitamin | | | | | | D.Blood levels of 25 | | | | | | Hydroxy Vitamin D vary | | | | | | with the extent of sun | | | | | | exposure. Values tend to | | | | | | be highest in late | | | | | | summer and lowest in the | | | | | | spring. Values also | | | | | | tend to decrease with | | | | | | age, due to decreased | | | | | | precursor synthesis in | | | | | | the skin.Testing | | | | | | performed at [facility], [address] | | | | | | [facility], | | | | | | [place] [address] | | | | + + + + + + + + | Specimen | + + | Blood specimen | | (specimen) | + + + +---------+ + + | Performing | Address | City/State/Zipcode | Phone Number | | Organization | | | | + +---------+ + + | EXTERNAL LAB | | | | + +---------+ + + CONCETTA Profile, Reflex (08/08/2018 12:12 PM PST) + + + + + + | Component | Value | Ref Range | Performed | Pathologist | | | | | At | Signature | + + + + + + | CONCETTA | NegativeComment: | | EXTERNAL | | | | Reference range: | | LAB | | | | NegativeTesting | | | | | | performed at [facility], [address] | | | | | | [address] | | | | | | [place] [address] | | | | + + + + + + | C ANCA | <1:20Comment: Reference | titer | EXTERNAL | | | | range: Neg:<1:20 | | LAB | | + + + + + + | Perinuclear | <1:20Comment: Reference | titer | EXTERNAL | | | (P-ANCA) | range: Neg:<1:20 The | | LAB | | | | presence of positive | | | | | | fluorescence exhibiting | | | | | | P-ANCA or C-ANCApatterns | | | | | | alone is not specific | | | | | | for the diagnosis of | | | | | | Mitch'sGranulomatosis | | | | | | (WG) or microscopic | | | | | | polyangiitis. Decisions | | | | | | abouttreatment should | | | | | | not be based solely on | | | | | | ANCA IFA results. | | | | | | TheInternational ANCA | | | | | | Group Consensus | | | | | | recommends follow up | | | | | | testing ofpositive sera | | | | | | with both KS-3 and | | | | | | MPO-ANCA enzyme | | | | | | immunoassays. Asmany as | | | | | | 5% serum samples are | | | | | | positive only by | | | | | | EIA.Ref. AM J Clin | | | | | | Pathol 1999;[id number]. | | | | | | | | | | + + + + + + | Atypical | 1:640 (H)Comment: | titer | EXTERNAL | | | pANCA | Reference range: | | LAB | | | | Neg:<1:20 The atypical | | | | | | pANCA pattern has been | | | | | | observed in a | | | | | | significantpercentage of | | | | | | patients with | | | | | | ulcerative colitis, | | | | | | primary | | | | | | sclerosingcholangitis | | | | | | and autoimmune | | | | | | hepatitis. | | | | + + + + + + | Myeloperoxi | <9.0Comment: Reference | U/mL | EXTERNAL | | | dase | range: 0.0 to 9.0 | | LAB | | | Antibody | | | | | + + + + + + | ANCA | <3.5Comment: Reference | U/mL | EXTERNAL | | | Proteinase | range: 0.0 to 3.5Testing | | LAB | | | 3 | performed by [facility], | | | | | | [address], | | | | | | [facility] [id number] | | | | + + + + + + + + | Specimen | + + | Blood specimen | | (specimen) | + + + +---------+ + + | Performing | Address | City/State/Zipcode | Phone Number | | Organization | | | | + +---------+ + + | EXTERNAL LAB | | | | + +---------+ + + Protein Electrophoresis and ARCHANA, Serum (08/08/2018 12:12 PM PST) + + + + + + | Component | Value | Ref Range | Performed | Pathologist | | | | | At | Signature | + + + + + + | IMMUNOFIXAT | (See Below)Comment: No | | EXTERNAL | | | ION RESULT, | monoclonality | | LAB | | | SERUM | detected.Testing | | | | | | performed at [facility], [address] | | | | | | [address] | | | | | | [place] [address] | | | | + + + + + + | Immunoglobu | 1100Comment: Reference | mg/dL | EXTERNAL | | | kristin IgG | range: 700 to 1600 | | LAB | | + + + + + + | Immunoglobu | 163Comment: Reference | mg/dL | EXTERNAL | | | kristin IgA | range: 87 to 352 | | LAB | | + + + + + + | Immunoglobu | 69Comment: Reference | mg/dL | EXTERNAL | | | kristin M, | range: 26 to 217Testing | | LAB | | | Quant, CSF | performed at [facility], | | | | | | [address], [address], | | | | | | [place] [address] | | | | + + + + + + + + | Specimen | + + | Blood specimen | | (specimen) | + + + +---------+ + + | Performing | Address | City/State/Zipcode | Phone Number | | Organization | | | | + +---------+ + + | EXTERNAL LAB | | | | + +---------+ + + Uric Acid (08/08/2018 12:12 PM PST) + + + + + + | Component | Value | Ref Range | Performed | Pathologist | | | | | At | Signature | + + + + + + | Uric Acid | 6.6Comment: Testing | 2.2 - 7.1 mg/dL | EXTERNAL | | | | performed at [facility], [address] | | LAB | | | | [address], | | | | | | [place] [address] | | | | + + + + + + + + | Specimen | + + | Blood specimen | | (specimen) | + + + +---------+ + + | Performing | Address | City/State/Zipcode | Phone Number | | Organization | | | | + +---------+ + + | EXTERNAL LAB | | | | + +---------+ + + Lactate Dehydrogenase (08/08/2018 12:12 PM PST) + + + + + + | Component | Value | Ref Range | Performed | Pathologist | | | | | At | Signature | + + + + + + | LDH TOTAL | 255 (H)Comment: Testing | 115 - 225 U/L | EXTERNAL | | | | performed at [facility], [address] | | LAB | | | | [address], | | | | | | [place] [address] | | | | + + + + + + + + | Specimen | + + | Blood specimen | | (specimen) | + + + +---------+ + + | Performing | Address | City/State/Zipcode | Phone Number | | Organization | | | | + +---------+ + + | EXTERNAL LAB | | | | + +---------+ + + Ferritin (08/08/2018 12:12 PM PST) + + + + + + | Component | Value | Ref Range | Performed | Pathologist | | | | | At | Signature | + + + + + + | Ferritin, | 66Comment: Testing | 6 - 170 ng/mL | EXTERNAL | | | External | performed at [facility], [address] | | LAB | | | | [address], | | | | | | [place] [address] | | | | + + + + + + + + | Specimen | + + | Blood specimen | | (specimen) | + + + +---------+ + + | Performing | Address | City/State/Zipcode | Phone Number | | Organization | | | | + +---------+ + + | EXTERNAL LAB | | | | + +---------+ + + POC Glucose (08/08/2018 12:03 PM PST) + + + + + + | Component | Value | Ref Range | Performed | Pathologist | | | | | At | Signature | + + + + + + | Glucose, | 165 (H)Comment: Testing | 65 - 99 mg/dL | EXTERNAL | | | Fingerstick | performed at [facility] | | LAB | | | | [address];[place], [place] | | | | | | [address] | | | | + + + + + + + + | Specimen | + + | | + + + +---------+ + + | Performing | Address | City/State/Zipcode | Phone Number | | Organization | | | | + +---------+ + + | EXTERNAL LAB | | | | + +---------+ + + POC Glucose (08/08/2018 5:53 AM PST) + + + + + + | Component | Value | Ref Range | Performed | Pathologist | | | | | At | Signature | + + + + + + | Glucose, | 183 (H)Comment: Testing | 65 - 99 mg/dL | EXTERNAL | | | Fingerstick | performed at [facility] | | LAB | | | | [address], [place] | | | | | | [address] | | | | + + + + + + + + | Specimen | + + | | + + + +---------+ + + | Performing | Address | City/State/Zipcode | Phone Number | | Organization | | | | + +---------+ + + | EXTERNAL LAB | | | | + +---------+ + + CBC no Differential (08/08/2018 4:40 AM PST) + + + + + + | Component | Value | Ref Range | Performed | Pathologist | | | | | At | Signature | + + + + + + | WBC | 5.62 | 3.80 - 11.00 | EXTERNAL | | | | | K/uL | LAB | | + + + + + + | RED CELL | 3.56 (L) | 3.70 - 5.10 | EXTERNAL | | | COUNT | | M/uL | LAB | | + + + + + + | Hgb | 10.0 (L) | 11.3 - 15.5 | EXTERNAL | | | | | g/dL | LAB | | + + + + + + | Hematocrit, | 30.4 (L) | 34.0 - 46.0 % | EXTERNAL | | | POC | | | LAB | | + + + + + + | MCV | 85.3 | 80.0 - 100.0 fl | EXTERNAL | | | | | | LAB | | + + + + + + | MCH | 28.0 | 27.0 - 34.0 pg | EXTERNAL | | | | | | LAB | | + + + + + + | MCHC | 32.8 | 32.0 - 35.5 | EXTERNAL | | | | | g/dL | LAB | | + + + + + + | RDW-CV | 41.1 | 37 - 53 fl | EXTERNAL | | | | | | LAB | | + + + + + + | Platelet | 169 | 150 - 400 K/uL | EXTERNAL | | | Count | | | LAB | | | Plasma | | | | | + + + + + + | MPV | 10.6Comment: Testing | fl | EXTERNAL | | | | performed at [facility], [address] | | LAB | | | | [facility], | | | | | | [place] [address] | | | | + + + + + + + + | Specimen | + + | | + + + +---------+ + + | Performing | Address | City/State/Zipcode | Phone Number | | Organization | | | | + +---------+ + + | EXTERNAL LAB | | | | + +---------+ + + Magnesium (08/08/2018 4:40 AM PST) + + + + + + | Component | Value | Ref Range | Performed | Pathologist | | | | | At | Signature | + + + + + + | Magnesium | 1.9Comment: Testing | 1.7 - 2.4 mg/dL | EXTERNAL | | | | performed at [facility], [address] | | LAB | | | | [address], | | | | | | [place] [address] | | | | + + + + + + + + | Specimen | + + | | + + + +---------+ + + | Performing | Address | City/State/Zipcode | Phone Number | | Organization | | | | + +---------+ + + | EXTERNAL LAB | | | | + +---------+ + + Renal Function Panel (08/08/2018 4:40 AM PST) + + + + + + | Component | Value | Ref Range | Performed | Pathologist | | | | | At | Signature | + + + + + + | Na | 143 | 135 - 145 | EXTERNAL | | | | | mmol/L | LAB | | + + + + + + | K | 5.0 (H) | 3.5 - 4.9 | EXTERNAL | | | | | mmol/L | LAB | | + + + + + + | Cl | 110 (H) | 99 - 109 mmol/L | EXTERNAL | | | | | | LAB | | + + + + + + | CO2 | 24 | 23 - 32 mmol/L | EXTERNAL | | | | | | LAB | | + + + + + + | Anion Gap | 14 | 5 - 20 mmol/L | EXTERNAL | | | | | | LAB | | + + + + + + | Glucose, | 142 (H) | 65 - 99 mg/dL | EXTERNAL | | | Fasting | | | LAB | | + + + + + + | BUN | 47 (H) | 8 - 25 mg/dL | EXTERNAL | | | | | | LAB | | + + + + + + | Creatinine | 1.8 (H) | 0.50 - 1.00 | EXTERNAL | | | | | mg/dL | LAB | | + + + + + + | Calcium | 8.0 (L) | 8.5 - 10.5 | EXTERNAL | | | | | mg/dL | LAB | | + + + + + + | Albumin | 2.2 (L) | 3.3 - 4.8 g/dL | EXTERNAL | | | | | | LAB | | + + + + + + | PHOSPHORUS | 4.4 | 2.3 - 4.8 mg/dL | EXTERNAL | | | | | | LAB | | + + + + + + | Estimated | 29 (L)Comment: GFR <60: | mL/min/1.73m2 | EXTERNAL | | | GFR | CHRONIC KIDNEY DISEASE, | | LAB | | | | IF FOUND OVER A 3 MONTH | | | | | | PERIOD.GFR <15: KIDNEY | | | | | | FAILURE.FOR | | | | | | AMERICANS, MULTIPLY THE | | | | | | CALCULATED GFR BY | | | | | | 1.210.This eGFR is | | | | | | calculated using the | | | | | | MDRD IDMS traceable | | | | | | equation.Testing | | | | | | performed at [facility], [address] | | | | | | [facility], | | | | | | [place] [address] | | | | + + + + + + + + | Specimen | + + | Blood specimen | | (specimen) | + + + +---------+ + + | Performing | Address | City/State/Zipcode | Phone Number | | Organization | | | | + +---------+ + + | EXTERNAL LAB | | | | + +---------+ + + POC Glucose (08/07/2018 9:07 PM PST) + + + + + + | Component | Value | Ref Range | Performed | Pathologist | | | | | At | Signature | + + + + + + | Glucose, | 141 (H)Comment: Testing | 65 - 99 mg/dL | EXTERNAL | | | Fingerstick | performed at [facility] | | LAB | | | | [address];[place] | | | | | | [address] | | | | + + + + + + + + | Specimen | + + | | + + + +---------+ + + | Performing | Address | City/State/Zipcode | Phone Number | | Organization | | | | + +---------+ + + | EXTERNAL LAB | | | | + +---------+ + + POC Glucose (08/07/2018 4:15 PM PST) + + + + + + | Component | Value | Ref Range | Performed | Pathologist | | | | | At | Signature | + + + + + + | Glucose, | 129 (H)Comment: Testing | 65 - 99 mg/dL | EXTERNAL | | | Fingerstick | performed at [facility] | | LAB | | | | [address];[place], [place] | | | | | | [address] | | | | + + + + + + + + | Specimen | + + | | + + + +---------+ + + | Performing | Address | City/State/Zipcode | Phone Number | | Organization | | | | + +---------+ + + | EXTERNAL LAB | | | | + +---------+ + + Basic Metabolic Panel (08/07/2018 2:56 PM PST) + + + + + + | Component | Value | Ref Range | Performed | Pathologist | | | | | At | Signature | + + + + + + | Na | 144 | 135 - 145 | EXTERNAL | | | | | mmol/L | LAB | | + + + + + + | K | 4.9 | 3.5 - 4.9 | EXTERNAL | | | | | mmol/L | LAB | | + + + + + + | Cl | 112 (H) | 99 - 109 mmol/L | EXTERNAL | | | | | | LAB | | + + + + + + | CO2 | 24 | 23 - 32 mmol/L | EXTERNAL | | | | | | LAB | | + + + + + + | Anion Gap | 13 | 5 - 20 mmol/L | EXTERNAL | | | | | | LAB | | + + + + + + | Glucose, | 159 (H) | 65 - 99 mg/dL | EXTERNAL | | | Fasting | | | LAB | | + + + + + + | BUN | 44 (H) | 8 - 25 mg/dL | EXTERNAL | | | | | | LAB | | + + + + + + | Creatinine | 2.0 (H) | 0.50 - 1.00 | EXTERNAL | | | | | mg/dL | LAB | | + + + + + + | BUN/Creatin | 22 | | EXTERNAL | | | ine Ratio | | | LAB | | + + + + + + | Calcium | 7.7 (L) | 8.5 - 10.5 | EXTERNAL | | | | | mg/dL | LAB | | + + + + + + | Estimated | 25 (L)Comment: GFR <60: | mL/min/1.73m2 | EXTERNAL | | | GFR | CHRONIC KIDNEY DISEASE, | | LAB | | | | IF FOUND OVER A 3 MONTH | | | | | | PERIOD.GFR <15: KIDNEY | | | | | | FAILURE.FOR | | | | | | AMERICANS, MULTIPLY THE | | | | | | CALCULATED GFR BY | | | | | | 1.210.This eGFR is | | | | | | calculated using the | | | | | | MDRD IDMS traceable | | | | | | equation.Testing | | | | | | performed at [facility] | | | | | | [facility];[place] | | | | | | [address] | | | | + + + + + + + + | Specimen | + + | Blood specimen | | (specimen) | + + + +---------+ + + | Performing | Address | City/State/Zipcode | Phone Number | | Organization | | | | + +---------+ + + | EXTERNAL LAB | | | | + +---------+ + + POC Glucose (08/07/2018 11:51 AM PST) + + + + + + | Component | Value | Ref Range | Performed | Pathologist | | | | | At | Signature | + + + + + + | Glucose, | 184 (H)Comment: Testing | 65 - 99 mg/dL | EXTERNAL | | | Fingerstick | performed at [facility] | | [address] | | | | [address];[place] | | | | | | [address] | | | | + + + + + + + + | Specimen | + + | | + + + +---------+ + + | Performing | Address | City/State/Zipcode | Phone Number | | Organization | | | | + +---------+ + + | EXTERNAL LAB | | | | + +---------+ + + Protein/Creatinine Ratio, Urine (08/07/2018 9:00 AM PST) + + + + + + | Component | Value | Ref Range | Performed | Pathologist | | | | | At | Signature | + + + + + + | Protein/Cre | 4.982Comment: Testing | | EXTERNAL | | | at Ratio | performed at [facility], [address] | | LAB | | | | [facility], | | | | | | [place] [address] | | | | + + + + + + + + | Specimen | + + | Urine specimen | | (specimen) | + + + +---------+ + + | Performing | Address | City/State/Zipcode | Phone Number | | Organization | | | | + +---------+ + + | EXTERNAL LAB | | | | + +---------+ + + Microalbumin/Creatinine Ratio, Urine (08/07/2018 9:00 AM PST) + + + + + + | Component | Value | Ref Range | Performed | Pathologist | | | | | At | Signature | + + + + + + | ALBUMIN/CRE | 3125 (H)Comment: >300 | mg/g | EXTERNAL | | | ATININE | Two of three A/C | | LAB | | | RATIO.URINE | ratios in this range | | | | | .ORD.MG/G | confirms overt clinical | | | | | (BEAKER) | nephropathy.Testing | | | | | | performed at [facility], [address] | | | | | | [facility], | | | | | | [place] [address] | | | | + + + + + + + + | Specimen | + + | Urine specimen | | (specimen) | + + + +---------+ + + | Performing | Address | City/State/Zipcode | Phone Number | | Organization | | | | + +---------+ + + | EXTERNAL LAB | | | | + +---------+ + + Protein, Urine, Random (08/07/2018 9:00 AM PST) + + + + + + | Component | Value | Ref Range | Performed | Pathologist | | | | | At | Signature | + + + + + + | Protein, | 279Comment: NO NORMAL | mg/dL | EXTERNAL | | | Urine | RANGE ESTABLISHEDTesting | | LAB | | | | performed at [facility], [address], | | | | | | [place] [address] | | | | + + + + + + + + | Specimen | + + | | + + + +---------+ + + | Performing | Address | City/State/Zipcode | Phone Number | | Organization | | | | + +---------+ + + | EXTERNAL LAB | | | | + +---------+ + + Creatinine, Urine, Random (08/07/2018 9:00 AM PST) + + + + + + | Component | Value | Ref Range | Performed | Pathologist | | | | | At | Signature | + + + + + + | Creatinine, | 56.0Comment: NO NORMAL | mg/dL | EXTERNAL | | | Urine | RANGE ESTABLISHEDTesting | | LAB | | | | performed at [facility], [address], | | | | | | [place] [address] | | | | + + + + + + + + | Specimen | + + | | + + + +---------+ + + | Performing | Address | City/State/Zipcode | Phone Number | | Organization | | | | + +---------+ + + | EXTERNAL LAB | | | | + +---------+ + + POC Glucose (08/07/2018 5:36 AM PST) + + + + + + | Component | Value | Ref Range | Performed | Pathologist | | | | | At | Signature | + + + + + + | Glucose, | 121 (H)Comment: Testing | 65 - 99 mg/dL | EXTERNAL | | | Fingerstick | performed at [facility] | | LAB | | | | [address];[place], [place] | | | | | | [address] | | | | + + + + + + + + | Specimen | + + | | + + + +---------+ + + | Performing | Address | City/State/Zipcode | Phone Number | | Organization | | | | + +---------+ + + | EXTERNAL LAB | | | | + +---------+ + + CBC no Differential (08/07/2018 4:41 AM PST) + + + + + + | Component | Value | Ref Range | Performed | Pathologist | | | | | At | Signature | + + + + + + | WBC | 5.64 | 3.80 - 11.00 | EXTERNAL | | | | | K/uL | LAB | | + + + + + + | RED CELL | 3.32 (L) | 3.70 - 5.10 | EXTERNAL | | | COUNT | | M/uL | LAB | | + + + + + + | Hgb | 9.3 (L) | 11.3 - 15.5 | EXTERNAL | | | | | g/dL | LAB | | + + + + + + | Hematocrit, | 28.2 (L) | 34.0 - 46.0 % | EXTERNAL | | | POC | | | LAB | | + + + + + + | MCV | 85.2 | 80.0 - 100.0 fl | EXTERNAL | | | | | | LAB | | + + + + + + | MCH | 28.1 | 27.0 - 34.0 pg | EXTERNAL | | | | | | LAB | | + + + + + + | MCHC | 33.0 | 32.0 - 35.5 | EXTERNAL | | | | | g/dL | LAB | | + + + + + + | RDW-CV | 41.6 | 37 - 53 fl | EXTERNAL | | | | | | LAB | | + + + + + + | Platelet | 146 (L) | 150 - 400 K/uL | EXTERNAL | | | Count | | | LAB | | | Plasma | | | | | + + + + + + | MPV | 10.6Comment: Testing | fl | EXTERNAL | | | | performed at [facility], [address] | | LAB | | | | [address], | | | | | | [place] [address] | | | | + + + + + + + + | Specimen | + + | | + + + +---------+ + + | Performing | Address | City/State/Zipcode | Phone Number | | Organization | | | | + +---------+ + + | EXTERNAL LAB | | | | + +---------+ + + Magnesium (08/07/2018 4:41 AM PST) + + + + + + | Component | Value | Ref Range | Performed | Pathologist | | | | | At | Signature | + + + + + + | Magnesium | 2.0Comment: Testing | 1.7 - 2.4 mg/dL | EXTERNAL | | | | performed at [facility], [address] | | LAB | | | | [address], | | | | | | [place] [address] | | | | + + + + + + + + | Specimen | + + | | + + + +---------+ + + | Performing | Address | City/State/Zipcode | Phone Number | | Organization | | | | + +---------+ + + | EXTERNAL LAB | | | | + +---------+ + + Renal Function Panel (08/07/2018 4:41 AM PST) + + + + + + | Component | Value | Ref Range | Performed | Pathologist | | | | | At | Signature | + + + + + + | Na | 145 | 135 - 145 | EXTERNAL | | | | | mmol/L | LAB | | + + + + + + | K | 5.2 (H) | 3.5 - 4.9 | EXTERNAL | | | | | mmol/L | LAB | | + + + + + + | Cl | 113 (H) | 99 - 109 mmol/L | EXTERNAL | | | | | | LAB | | + + + + + + | CO2 | 25 | 23 - 32 mmol/L | EXTERNAL | | | | | | LAB | | + + + + + + | Anion Gap | 12 | 5 - 20 mmol/L | EXTERNAL | | | | | | LAB | | + + + + + + | Glucose, | 146 (H) | 65 - 99 mg/dL | EXTERNAL | | | Fasting | | | LAB | | + + + + + + | BUN | 51 (H) | 8 - 25 mg/dL | EXTERNAL | | | | | | LAB | | + + + + + + | Creatinine | 1.9 (H) | 0.50 - 1.00 | EXTERNAL | | | | | mg/dL | LAB | | + + + + + + | Calcium | 8.0 (L) | 8.5 - 10.5 | EXTERNAL | | | | | mg/dL | LAB | | + + + + + + | Albumin | 2.1 (L) | 3.3 - 4.8 g/dL | EXTERNAL | | | | | | LAB | | + + + + + + | PHOSPHORUS | 4.1 | 2.3 - 4.8 mg/dL | EXTERNAL | | | | | | LAB | | + + + + + + | Estimated | 27 (L)Comment: GFR <60: | mL/min/1.73m2 | EXTERNAL | | | GFR | CHRONIC KIDNEY DISEASE, | | LAB | | | | IF FOUND OVER A 3 MONTH | | | | | | PERIOD.GFR <15: KIDNEY | | | | | | FAILURE.FOR | | | | | | AMERICANS, MULTIPLY THE | | | | | | CALCULATED GFR BY | | | | | | 1.210.This eGFR is | | | | | | calculated using the | | | | | | MDRD IDMS traceable | | | | | | equation.Testing | | | | | | performed at [facility], [address] | | | | | | [facility], | | | | | | [place] [address] | | | | + + + + + + + + | Specimen | + + | Blood specimen | | (specimen) | + + + +---------+ + + | Performing | Address | City/State/Zipcode | Phone Number | | Organization | | | | + +---------+ + + | EXTERNAL LAB | | | | + +---------+ + + POC Glucose (08/06/2018 9:02 PM PST) + + + + + + | Component | Value | Ref Range | Performed | Pathologist | | | | | At | Signature | + + + + + + | Glucose, | 158 (H)Comment: Testing | 65 - 99 mg/dL | EXTERNAL | | | Fingerstick | performed at [facility] | | LAB | | | | [address];[place], [place] | | | | | | [address] | | | | + + + + + + + + | Specimen | + + | | + + + +---------+ + + | Performing | Address | City/State/Zipcode | Phone Number | | Organization | | | | + +---------+ + + | EXTERNAL LAB | | | | + +---------+ + + POC Glucose (08/06/2018 4:36 PM PST) + + + + + + | Component | Value | Ref Range | Performed | Pathologist | | | | | At | Signature | + + + + + + | Glucose, | 129 (H)Comment: Testing | 65 - 99 mg/dL | EXTERNAL | | | Fingerstick | performed at [facility] | | LAB | | | | [address];[place] | | | | | | [address] | | | | + + + + + + + + | Specimen | + + | | + + + +---------+ + + | Performing | Address | City/State/Zipcode | Phone Number | | Organization | | | | + +---------+ + + | EXTERNAL LAB | | | | + +---------+ + + ECHO Complete (08/06/2018 3:42 PM PST) + + | Specimen | + + | | + + + + + | Impressions | Performed At | + + + | 1. Overall left ventricular systolic function is normal with, an EF | | | between 60 - 65 %. 2. There is moderate concentric left ventricular | | | hypertrophy. 3. Mild mitral regurgitation is present. | | + + + + + + | Narrative | Performed At | + + + | Patient Name: Maria Ines Martin Date of : 1955 | | | Performing Physician: Brynn Crawford MD | | | | | | INDICATIONS shorttness of breath CONCLUSIONS | | | 1. Overall left ventricular systolic function is normal | | | with, an EF between 60 - 65 %. 2. There is moderate concentric left | | | ventricular hypertrophy. 3. Mild mitral regurgitation is present. | | | FINDINGS -------- ECG rhythm: Sinus rhythm. Study: This was a | | | technically good study. Left Ventricle: Overall left ventricular | | | systolic function is normal with, an EF between 60 - 65 %. Left | | | Ventricle: The left ventricle cavity size is normal. Left Ventricle: | | | There is moderate concentric left ventricular hypertrophy. Left | | | Ventricle: The diastolic filling pattern indicates impaired relaxation | | | consistent with mild dysfunction (Grade I), which is normal for the | | | patient's age. Aortic Valve: There is no evidence of aortic | | | regurgitation. Mitral Valve: Mild mitral regurgitation is present. | | | Tricuspid Valve: Trace tricuspid regurgitation present. Tricuspid | | | Valve: The poor TR signal prevents accurate estimation of pulmonary | | | pressures. Pericardium: There is no pericardial effusion. | | | IVC/Hepatic Veins: The inferior vena cava is normal in size and | | | collapses > 50 % with sniff, indicating normal central venous | | | pressures. Mass: No mass visualized Thrombus: No clot visualized | | | MEASUREMENTS Ao asc: 3.07 cm Ao sinus: 3.44 cm | | | Ao st junct: 2.76 cm IVC: 1.62 cm EDV(Teich): 82.97 ml | | | IVSd: 1.41 cm LVIDd: 4.29 cm LVPWd: 1.35 cm LVOT Diam: | | | 1.97 cm %FS: 43.64 % EF(Teich): 75.14 % ESV(Teich): 20.62 | | | ml IVSs: 1.58 cm LVIDs: 2.42 cm LVPWs: 2.13 cm SV(Teich): | | | 62.34 ml LVEF MOD A2C: 62.55 % SV MOD A2C: 55.73 ml LVEF | | | MOD A4C: 66.91 % SV MOD A4C: 52.66 ml EF Biplane: 64.60 % | | | LVEDV MOD BP: 86.66 ml LVESV MOD BP: 30.67 ml LVEDV MOD A2C: | | | 89.09 ml LVLd A2C: 8.12 cm LVEDV MOD A4C: 78.70 ml LVLd | | | A4C: 7.49 cm LVESV MOD A2C: 33.36 ml LVLs A2C: 6.39 cm | | | LVESV MOD A4C: 26.03 ml LVLs A4C: 5.70 cm CO Biplane: 3.85 | | | l/min HR: 68.84 BPM R-R: 871.55 ms LAESV(A-L): 76.45 ml | | | LAESV Index (A-L): 40.23 ml/m2 LAAs A2C: 24.44 cm2 LAESV A-L | | | A2C: 74.48 ml LALs A2C: 6.81 cm LAAs A4C: 21.96 cm2 LAESV | | | A-L A4C: 68.67 ml LALs A4C: 5.96 cm Junior: 13.73 cm2 RAEDV | | | A-L: 33.61 ml RAEDV MOD: 31.44 ml RALd: 4.76 cm EPSS: | | | 2.39 cm AV maxP.50 mmHg AV meanP.57 mmHg AV Vmax: | | | 1.76 m/s AV Vmean: 1.20 m/s AV VTI: 39.54 cm GISSELLE Vmax: | | | 2.19 cm2 GISSELLE (VTI): 2.37 cm2 AVAI Vmax: 0.00 cm2/m2 AVAI | | | (VTI): 0.00 cm2/m2 LVOT maxP.42 mmHg LVOT meanP.78 | | | mmHg LVSI Dopp: 49.52 ml/m2 LVSV Dopp: 94.10 ml LVOT Vmax: | | | 1.26 m/s LVOT Vmean: 0.92 m/s LVOT VTI: 30.73 cm MV A Brock: | | | 1.18 m/s MV DecT: 196.01 ms MV E Brock: 1.09 m/s MV E/A | | | Ratio: 0.93 E/E' Av.43 E' Av.07 m/s E/E' Lat: | | | 15.77 E/E' Sept: 13.30 E' Lat: 0.06 m/s E' Sept: 0.08 m/s | | | P Vein D: 0.79 m/s P Vein S/D Ratio: 0.82 P Vein S: 0.65 | | | m/s HR: 68.24 BPM PV maxP.94 mmHg PV meanP.37 mmHg | | | PV Vmax: 0.99 m/s PV Vmean: 0.75 m/s PV VTI: 25.31 cm TV | | | A Brock: 0.60 m/s TV Dec [place]: 2.33 m/s2 TV Dec Time: | | | 240.52 ms TV E Brock: 0.56 m/s TV E/A Ratio: 0.92 | | | Speech Language Therapist: GONZALO Authenticated by: Brynn Crawford MD Report Date/Time: | | | -- [id number] | | + + + + + | Procedure Note | + + | Darin Leung Conversion - 03/03/2019 10:28 PM PDT Patient Name: Jl Martin of | | : 1955 Performing Physician: Brynn Crawford | | INDICATIONS s | | horttness of breath CONCLUSIONS 1. Overall left ventricular systolic function | | is normal with, an EF between 60 - 65 %.2. There is moderate concentric left ventricular | | hypertrophy.3. Mild mitral regurgitation is present. FINDINGS--------ECG rhythm: Sinus | | rhythm.Study: This was a technically good study.Left Ventricle: Overall left ventricular | | systolic function is normal with, an EF between 60 - 65 %.Left Ventricle: The left | | ventricle cavity size is normal.Left Ventricle: There is moderate concentric left | | ventricular hypertrophy.Left Ventricle: The diastolic filling pattern indicates impaired | | relaxation consistent with mild dysfunction (Grade I), which is normal for the | | patient's age.Aortic Valve: There is no evidence of aortic regurgitation.Mitral Valve: | | Mild mitral regurgitation is present.Tricuspid Valve: Trace tricuspid regurgitation | | present.Tricuspid Valve: The poor TR signal prevents accurate estimation of pulmonary | | pressures.Pericardium: There is no pericardial effusion.IVC/Hepatic Veins: The inferior | | vena cava is normal in size and collapses > 50 % with sniff, indicating normal central | | venous pressures.Mass: No mass visualizedThrombus: No clot visualized | | MEASUREMENTS Ao asc: 3.07 cmAo sinus: 3.[address] junct: 2.76 cmIVC: | | 1.62 cmEDV(Teich): 82.97 mlIVSd: 1.41 cmLVIDd: 4.29 cmLVPWd: 1.35 cmLVOT Diam: | | 1.97 cm%FS: 43.64 %EF(Teich): 75.14 %ESV(Teich): 20.62 mlIVSs: 1.58 cmLVIDs: | | 2.42 cmLVPWs: 2.13 cmSV(Teich): 62.34 mlLVEF MOD A2C: 62.55 %SV MOD A2C: 55.73 | | mlLVEF MOD A4C: 66.91 %SV MOD A4C: 52.66 mlEF Biplane: 64.60 %LVEDV MOD BP: | | 86.66 mlLVESV MOD BP: 30.67 mlLVEDV MOD A2C: 89.09 mlLVLd A2C: 8.12 cmLVEDV MOD | | A4C: 78.70 mlLVLd A4C: 7.49 cmLVESV MOD A2C: 33.36 mlLVLs A2C: 6.39 cmLVESV MOD | | A4C: 26.03 mlLVLs A4C: 5.70 cmCO Biplane: 3.85 l/minHR: 68.84 BPMR-R: 871.55 | | msLAESV(A-L): 76.45 mlLAESV Index (A-L): 40.23 ml/m2LAAs A2C: 24.44 [id number] A-L | | A2C: 74.48 mlLALs A2C: 6.81 cmLAAs A4C: 21.96 [id number] A-L A4C: 68.67 mlLALs | | A4C: 5.96 cmRAAd: 13.73 wi2GNPCP A-L: 33.61 mlRAEDV MOD: 31.44 mlRALd: 4.76 | | cmEPSS: 2.39 cmAV maxP.50 mmHgAV meanP.57 mmHgAV Vmax: 1.76 m/John | | Vmean: 1.20 m/John VTI: 39.54 cmAVA Vmax: 2.19 cm2AVA (VTI): 2.37 dw4ICFR Vmax: | | 0.00 cm2/m2AVAI (VTI): 0.00 cm2/m2LVOT maxP.42 mmHgLVOT meanP.78 mmHgLVSI | | Dopp: 49.52 ml/m2LVSV Dopp: 94.10 mlLVOT Vmax: 1.26 m/sLVOT Vmean: 0.92 m/sLVOT | | VTI: 30.73 cmMV A Brock: 1.18 m/sMV DecT: 196.01 msMV E Brock: 1.09 m/sMV E/A | | Ratio: 0.93E/E' Av.43E' Av.07 m/sE/E' Lat: 15.77E/E' Sept: 13.30E' | | Lat: 0.06 m/sE' Sept: 0.08 m/sP Vein D: 0.79 m/sP Vein S/D Ratio: 0.82P Vein S: | | 0.65 m/sHR: 68.24 BPMPV maxP.94 mmHgPV meanP.37 mmHgPV Vmax: 0.99 | | m/sPV Vmean: 0.75 m/sPV VTI: 25.31 cmTV A Brock: 0.60 m/sTV Dec [place]: 2.33 m/s2TV | | Dec Time: 240.52 msTV E Brock: 0.56 m/sTV E/A Ratio: 0.92 Speech Language Therapist: | | GDAuthenticated by: Brynn Crawford MDReport Date/Time: [id number] | | IMPRESSION: 1. Overall left ventricular systolic function is normal with, an EF between | | 60 - 65 %.2. There is moderate concentric left ventricular hypertrophy.3. Mild mitral | | regurgitation is present. | |IVSd: 1.41 cm | |LVIDd: 4.29 cm | |LVPWd: 1.35 cm | |LVOT Diam: 1.97 cm | |%FS: 43.64 % | |EF(Teich): 75.14 % | |ESV(Teich): 20.62 ml | |IVSs: 1.58 cm | |LVIDs: 2.42 cm | |LVPWs: 2.13 cm | |SV(Teich): 62.34 ml | |LVEF MOD A2C: 62.55 % | |SV MOD A2C: 55.73 ml | |LVEF MOD A4C: 66.91 % | |SV MOD A4C: 52.66 ml | |EF Biplane: 64.60 % | |LVEDV MOD BP: 86.66 ml | |LVESV MOD BP: 30.67 ml | |LVEDV MOD A2C: 89.09 ml | |LVLd A2C: 8.12 cm | |LVEDV MOD A4C: 78.70 ml | |LVLd A4C: 7.49 cm | |LVESV MOD A2C: 33.36 ml | |LVLs A2C: 6.39 cm | |LVESV MOD A4C: 26.03 ml | |LVLs A4C: 5.70 cm | |CO Biplane: 3.85 l/min | |HR: 68.84 BPM | |R-R: 871.55 ms | |LAESV(A-L): 76.45 ml | |LAESV Index (A-L): 40.23 ml/m2 | |LAAs A2C: 24.44 cm2 | |LAESV A-L A2C: 74.48 ml | |LALs A2C: 6.81 cm | |LAAs A4C: 21.96 cm2 | |LAESV A-L A4C: 68.67 ml | |LALs A4C: 5.96 cm | |Junior: 13.73 cm2 | |RAEDV A-L: 33.61 ml | |RAEDV MOD: 31.44 ml | |RALd: 4.76 cm | |EPSS: 2.39 cm | |AV maxP.50 mmHg | |AV meanP.57 mmHg | |AV Vmax: 1.76 m/s | |AV Vmean: 1.20 m/s | |AV VTI: 39.54 cm | |GISSELLE Vmax: 2.19 cm2 | |GISSELLE (VTI): 2.37 cm2 | |AVAI Vmax: 0.00 cm2/m2 | |AVAI (VTI): 0.00 cm2/m2 | |LVOT maxP.42 mmHg | |LVOT meanP.78 mmHg | |LVSI Dopp: 49.52 ml/m2 | |LVSV Dopp: 94.10 ml | |LVOT Vmax: 1.26 m/s | |LVOT Vmean: 0.92 m/s | |LVOT VTI: 30.73 cm | |MV A Brock: 1.18 m/s | |MV DecT: 196.01 ms | |MV E Brock: 1.09 m/s | |MV E/A Ratio: 0.93 | |E/E' Av.43 | |E' Av.07 m/s | |E/E' Lat: 15.77 | |E/E' Sept: 13.30 | |E' Lat: 0.06 m/s | |E' Sept: 0.08 m/s | |P Vein D: 0.79 m/s | |P Vein S/D Ratio: 0.82 | |P Vein S: 0.65 m/s | |HR: 68.24 BPM | |PV maxP.94 mmHg | |PV meanP.37 mmHg | |PV Vmax: 0.99 m/s | |PV Vmean: 0.75 m/s | |PV VTI: 25.31 cm | |TV A Brock: 0.60 m/s | |TV Dec [place]: 2.33 m/s2 | |TV Dec Time: 240.52 ms | |TV E Brock: 0.56 m/s | |TV E/A Ratio: 0.92 | | | |Speech Language Therapist: GD | |Authenticated by: Brynn Crawford MD | |Report Date/Time: -- [id number] | | | |IMPRESSION: | |1. Overall left ventricular systolic function is normal with, an EF between 60 - 65 %. | |2. There is moderate concentric left ventricular hypertrophy. | |3. Mild mitral regurgitation is present. | + + Urinalysis, Microscopic Only (08/06/2018 3:10 PM PST) + + + + + + | Component | Value | Ref Range | Performed | Pathologist | | | | | At | Signature | + + + + + + | WBC, UA | 3-5Comment: | 0 - 5 /hpf | EXTERNAL | | | | | | LAB | | + + + + + + | RBC, UA | 0-2 | 0 - 5 /hpf | EXTERNAL | | | | | | LAB | | + + + + + + | Epithelial | 6-10 | /lpf | EXTERNAL | | | Cells | | | LAB | | + + + + + + | Bacteria, | NONE SEEN | | EXTERNAL | | | UA | | | LAB | | + + + + + + | MUCUS UA | 1+ | | EXTERNAL | | | | | | LAB | | + + + + + + | CASTS | SEE BELOWComment: 6-10 | /lpf | EXTERNAL | | | | HYALINE CASTTesting | | LAB | | | | performed at [facility], [address] | | | | | [address], | | | | | | [place] [address] | | | | + + + + + + + + | Specimen | + + | | + + + +---------+ + + | Performing | Address | City/State/Zipcode | Phone Number | | Organization | | | | + +---------+ + + | EXTERNAL LAB | | | | + +---------+ + + Urinalysis with Microscopic if Indicated (08/06/2018 3:10 PM PST) + + + + + + | Component | Value | Ref Range | Performed | Pathologist | | | | | At | Signature | + + + + + + | Color | YELLOW | | EXTERNAL | | | | | | LAB | | + + + + + + | Clarity | HAZY | | EXTERNAL | | | | | | LAB | | + + + + + + | Specific | 1.013 | 1.002 - 1.030 | EXTERNAL | | | [place] | | | LAB | | + + + + + + | Leukocyte | NEGATIVEComment: | | EXTERNAL | | | Esterase, | | | LAB | | | Urine | | | | | + + + + + + | Nitrite, | NEGATIVE | | EXTERNAL | | | Urine | | | LAB | | + + + + + + | Urobilinoge | NORMAL | mg/dL | EXTERNAL | | | n, Urine | | | LAB | | + + + + + + | Protein, | >500 (A) | mg/dL | EXTERNAL | | | Urine | | | LAB | | + + + + + + | pH, Urine | 5.0 | 5.0 - 8.0 | EXTERNAL | | | | | | LAB | | + + + + + + | Blood, | SMALL (A) | | EXTERNAL | | | Urine | | | LAB | | + + + + + + | Ketones | NEGATIVE | mg/dL | EXTERNAL | | | | | | LAB | | + + + + + + | Bilirubin, | NEGATIVE | | EXTERNAL | | | Urine | | | LAB | | + + + + + + | Glucose, | 50 (A)Comment: Testing | mg/dL | EXTERNAL | | | Urine | performed at [facility], [address] | | LAB | | | | [address], | | | | | | [place] [address] | | | | + + + + + + + + | Specimen | + + | Urine specimen | | (specimen) | + + + +---------+ + + | Performing | Address | City/State/Zipcode | Phone Number | | Organization | | | | + +---------+ + + | EXTERNAL LAB | | | | + +---------+ + + Potassium (08/06/2018 12:01 PM PST) + + + + + + | Component | Value | Ref Range | Performed | Pathologist | | | | | At | Signature | + + + + + + | K | 4.8Comment: Testing | 3.5 - 4.9 | EXTERNAL | | | | performed at [facility] | mmol/L | LAB | | | | [address];[place], [place] | | | | | | [address] | | | | + + + + + + + + | Specimen | + + | Blood specimen | | (specimen) | + + + +---------+ + + | Performing | Address | City/State/Zipcode | Phone Number | | Organization | | | | + +---------+ + + | EXTERNAL LAB | | | | + +---------+ + + POC Glucose (08/06/2018 11:35 AM PST) + + + + + + | Component | Value | Ref Range | Performed | Pathologist | | | | | At | Signature | + + + + + + | Glucose, | 237 (H)Comment: Testing | 65 - 99 mg/dL | EXTERNAL | | | Fingerstick | performed at [facility] | | LAB | | | | [address];[place], [place] | | | | | | [address] | | | | + + + + + + + + | Specimen | + + | | + + + +---------+ + + | Performing | Address | City/State/Zipcode | Phone Number | | Organization | | | | + +---------+ + + | EXTERNAL LAB | | | | + +---------+ + + XR Chest 2 Vws (08/06/2018 11:15 AM PST) + + | Specimen | + + | | + + + + + | Impressions | Performed At | + + + | No acute cardiopulmonary abnormality. Signed by: Sachin Adam | | | Date/Time: 08/06/2018 11:43 AM | | + + + + + + | Narrative | Performed At | + + + | CHEST TWO VIEWS CLINICAL INFORMATION: Chest pain. COMPARISON: | | | None FINDINGS: Heart size and mediastinal contours are normal. No | | | pneumothorax, no pleural effusion. No acute osseous abnormality. | | | Lungs are clear. | | + + + + + | Procedure Note | + + | Darin Leung - 03/03/2019 10:28 PM PDT CHEST TWO VIEWS | | CLINICAL INFORMATION: | | Chest pain. | | COMPARISON: | | None | | FINDINGS: | | Heart size and mediastinal contours are normal. | | No pneumothorax, no pleural effusion. | | No acute osseous abnormality. | | Lungs are clear. | | IMPRESSION: | | No acute cardiopulmonary abnormality. | | Signed by: Sachin Adam | | Sign Date/Time: 08/06/2018 11:43 AM | + + CBC no Differential (08/06/2018 6:05 AM PST) + + + + + + | Component | Value | Ref Range | Performed | Pathologist | | | | | At | Signature | + + + + + + | WBC | 5.48 | 3.80 - 11.00 | EXTERNAL | | | | | K/uL | LAB | | + + + + + + | RED CELL | 3.30 (L) | 3.70 - 5.10 | EXTERNAL | | | COUNT | | M/uL | LAB | | + + + + + + | Hgb | 9.3 (L) | 11.3 - 15.5 | EXTERNAL | | | | | g/dL | LAB | | + + + + + + | Hematocrit, | 28.2 (L) | 34.0 - 46.0 % | EXTERNAL | | | POC | | | LAB | | + + + + + + | MCV | 85.7 | 80.0 - 100.0 fl | EXTERNAL | | | | | | LAB | | + + + + + + | MCH | 28.4 | 27.0 - 34.0 pg | EXTERNAL | | | | | | LAB | | + + + + + + | MCHC | 33.1 | 32.0 - 35.5 | EXTERNAL | | | | | g/dL | LAB | | + + + + + + | RDW-CV | 42.9 | 37 - 53 fl | EXTERNAL | | | | | | LAB | | + + + + + + | Platelet | 153 | 150 - 400 K/uL | EXTERNAL | | | Count | | | LAB | | | Plasma | | | | | + + + + + + | MPV | 10.4Comment: Testing | fl | EXTERNAL | | | | performed at [facility], [address] | | LAB | | | | [address], | | | | | | [place] [address] | | | | + + + + + + + + | Specimen | + + | | + + + +---------+ + + | Performing | Address | City/State/Zipcode | Phone Number | | Organization | | | | + +---------+ + + | EXTERNAL LAB | | | | + +---------+ + + Phosphorus (08/06/2018 6:05 AM PST) + + + + + + | Component | Value | Ref Range | Performed | Pathologist | | | | | At | Signature | + + + + + + | PHOSPHORUS | 4.7Comment: Testing | 2.3 - 4.8 mg/dL | EXTERNAL | | | | performed at [facility], [address] | | LAB | | | | [address], | | | | | | [place] [address] | | | | + + + + + + + + | Specimen | + + | Blood specimen | | (specimen) | + + + +---------+ + + | Performing | Address | City/State/Zipcode | Phone Number | | Organization | | | | + +---------+ + + | EXTERNAL LAB | | | | + +---------+ + + Magnesium (08/06/2018 6:05 AM PST) + + + + + + | Component | Value | Ref Range | Performed | Pathologist | | | | | At | Signature | + + + + + + | Magnesium | 2.1Comment: Testing | 1.7 - 2.4 mg/dL | EXTERNAL | | | | performed at [facility], [address] | | LAB | | | | [address], | | | | | | [place] [address] | | | | + + + + + + + + | Specimen | + + | Blood specimen | | (specimen) | + + + +---------+ + + | Performing | Address | City/State/Zipcode | Phone Number | | Organization | | | | + +---------+ + + | EXTERNAL LAB | | | | + +---------+ + + Hemoglobin A1C (08/06/2018 6:05 AM PST) + + + + + + | Component | Value | Ref Range | Performed | Pathologist | | | | | At | Signature | + + + + + + | Hemoglobin | 6.4 (H)Comment: The | 4.0 - 6.0 % | EXTERNAL | | | A1c | [facility] | | LAB | | | | Association considers a | | | | | | hemoglobin A1c result of | | | | | | <7.0% to be the goal of | | | | | | diabetic therapy. | | | | | | When results are | | | | | | consistently >8.0%, the | | | | | | ADA suggests | | | | | | reevaluation of the | | | | | | treatment regimen. The | | | | | | testing method used is | | | | | | certified traceable to | | | | | | the Diabetes Control and | | | | | | Complications Trial | | | | | | reference method. | | | | + + + + + + | Glycohemogl | 137Comment: The ADA | mg/dL | EXTERNAL | | | obin | considers an eAG result | | LAB | | | (GHb),Total | of LT 154 mg/dL to be | | | | | | the goal of diabetic | | | | | | therapy. Estimated | | | | | | Average Glucose | | | | | | calculated from | | | | | | hemoglobin A1c by use of | | | | | | the ADA recommended | | | | | | formula.Testing | | | | | | performed at [facility], [address] | | | | | | [facility], | | | | | | [place] [address] | | | | + + + + + + + + | Specimen | + + | Blood specimen | | (specimen) | + + + +---------+ + + | Performing | Address | City/State/Zipcode | Phone Number | | Organization | | | | + +---------+ + + | EXTERNAL LAB | | | | + +---------+ + + Basic Metabolic Panel (08/06/2018 6:05 AM PST) + + + + + + | Component | Value | Ref Range | Performed | Pathologist | | | | | At | Signature | + + + + + + | Na | 143 | 135 - 145 | EXTERNAL | | | | | mmol/L | LAB | | + + + + + + | K | 5.1 (H) | 3.5 - 4.9 | EXTERNAL | | | | | mmol/L | LAB | | + + + + + + | Cl | 116 (H) | 99 - 109 mmol/L | EXTERNAL | | | | | | LAB | | + + + + + + | CO2 | 21 (L) | 23 - 32 mmol/L | EXTERNAL | | | | | | LAB | | + + + + + + | Anion Gap | 11 | 5 - 20 mmol/L | EXTERNAL | | | | | | LAB | | + + + + + + | Glucose, | 101 (H) | 65 - 99 mg/dL | EXTERNAL | | | Fasting | | | LAB | | + + + + + + | BUN | 55 (H) | 8 - 25 mg/dL | EXTERNAL | | | | | | LAB | | + + + + + + | Creatinine | 2.0 (H) | 0.50 - 1.00 | EXTERNAL | | | | | mg/dL | LAB | | + + + + + + | BUN/Creatin | 27 | | EXTERNAL | | | ine Ratio | | | LAB | | + + + + + + | Calcium | 7.6 (L) | 8.5 - 10.5 | EXTERNAL | | | | | mg/dL | LAB | | + + + + + + | Estimated | 25 (L)Comment: GFR <60: | mL/min/1.73m2 | EXTERNAL | | | GFR | CHRONIC KIDNEY DISEASE, | | LAB | | | | IF FOUND OVER A 3 MONTH | | | | | | PERIOD.GFR <15: KIDNEY | | | | | | FAILURE.FOR | | | | | | AMERICANS, MULTIPLY THE | | | | | | CALCULATED GFR BY | | | | | | 1.210.This eGFR is | | | | | | calculated using the | | | | | | MDRD IDMS traceable | | | | | | equation.Testing | | | | | | performed at [facility] | | | | | | [address] [facility];[place], [place] | | | | | | [address] | | | | + + + + + + + + | Specimen | + + | Blood specimen | | (specimen) | + + + +---------+ + + | Performing | Address | City/State/Zipcode | Phone Number | | Organization | | | | + +---------+ + + | EXTERNAL LAB | | | | + +---------+ + + POC Glucose (08/06/2018 5:42 AM PST) + + + + + + | Component | Value | Ref Range | Performed | Pathologist | | | | | At | Signature | + + + + + + | Glucose, | 117 (H)Comment: Testing | 65 - 99 mg/dL | EXTERNAL | | | Fingerstick | performed at [facility] | | LAB | | | | [address];[place], [place] | | | | | | [address] | | | | + + + + + + + + | Specimen | + + | | + + + +---------+ + + | Performing | Address | City/State/Zipcode | Phone Number | | Organization | | | | + +---------+ + + | EXTERNAL LAB | | | | + +---------+ + + Potassium (08/06/2018 12:36 AM PST) + + + + + + | Component | Value | Ref Range | Performed | Pathologist | | | | | At | Signature | + + + + + + | K | 5.5 (H)Comment: Testing | 3.5 - 4.9 | EXTERNAL | | | | performed at [facility] | mmol/L | LAB | | | | [address];[place] | | | | | | [address] | | | | + + + + + + + + | Specimen | + + | Blood specimen | | (specimen) | + + + +---------+ + + | Performing | Address | City/State/Zipcode | Phone Number | | Organization | | | | + +---------+ + + | EXTERNAL LAB | | | | + +---------+ + + POC Glucose (08/05/2018 9:09 PM PST) + + + + + + | Component | Value | Ref Range | Performed | Pathologist | | | | | At | Signature | + + + + + + | Glucose, | 167 (H)Comment: Testing | 65 - 99 mg/dL | EXTERNAL | | | Fingerstick | performed at [facility] | | LAB | | | | [address];[place] | | | | | | [address] | | | | + + + + + + + + | Specimen | + + | | + + + +---------+ + + | Performing | Address | City/State/Zipcode | Phone Number | | Organization | | | | + +---------+ + + | EXTERNAL LAB | | | | + +---------+ + + Potassium (08/05/2018 6:40 PM PST) + + + + + + | Component | Value | Ref Range | Performed | Pathologist | | | | | At | Signature | + + + + + + | K | 6.2 (H)Comment: SLT | 3.5 - 4.9 | EXTERNAL | | | | HEMOLYSISTesting | mmol/L | LAB | | | | performed at [facility] | | | | | | [address];[place], [place] | | | | | | [address] | | | | + + + + + + + + | Specimen | + + | Blood specimen | | (specimen) | + + + +---------+ + + | Performing | Address | City/State/Zipcode | Phone Number | | Organization | | | | + +---------+ + + | EXTERNAL LAB | | | | + +---------+ + + US Renal Limited (08/05/2018 3:57 PM PST) + + | Specimen | + + | | + + + + + | Impressions | Performed At | + + + | Normal-sized both kidneys without hydronephrosis. Urinary bladder | | | is incompletely evaluated. Bilateral ureteric jets are not | | | visualized. Signed by: Gregorio Alfaro Date/Time: 08/06/2018 | | | 9:09 AM | | + + + + + + | Narrative | Performed At | + + + | ULTRASOUND KIDNEYS AND BLADDER CLINICAL INFORMATION: Acute renal | | | failure. Right flank pain. COMPARISON: None PROCEDURE: | | | Evaluation of the kidneys and urinary bladder. FINDINGS: Right | | | kidney: 10.2 x 4.8 x 5.4 cm. No solid renal mass, hydronephrosis or | | | definitive calculi. Left kidney: 10.3 x 5.3 x 5.3 cm. No solid renal | | | mass, hydronephrosis or definitive calculi. Bladder: The urinary | | | bladder is partially distended, incompletely evaluated. Bilateral | | | ureteric jets are not visualized. The prevoid urinary bladder | | | volume is 25 mL. There is complete emptying of the urinary bladder. | | + + + + + | Procedure Note | + + | Darin Leung - 03/03/2019 10:28 PM PDT ULTRASOUND KIDNEYS AND BLADDER | | CLINICAL INFORMATION: | | Acute renal failure. Right flank pain. | | COMPARISON: | | None | | PROCEDURE: | | Evaluation of the kidneys and urinary bladder. | | FINDINGS: | | Right kidney: 10.2 x 4.8 x 5.4 cm. No solid renal mass, hydronephrosis | | or definitive calculi. | | Left kidney: 10.3 x 5.3 x 5.3 cm. No solid renal mass, hydronephrosis | | or definitive calculi. | | Bladder: The urinary bladder is partially distended, incompletely | | evaluated. Bilateral ureteric jets are not visualized. The prevoid | | urinary bladder volume is 25 mL. There is complete emptying of the | | urinary bladder. | | IMPRESSION: | | Normal-sized both kidneys without hydronephrosis. | | Urinary bladder is incompletely evaluated. Bilateral ureteric jets are | | not visualized. | | Signed by: Gregorio Alfaro | | Sign Date/Time: 08/06/2018 9:09 AM | + + External Lab: CBC (08/05/2018 11:00 AM PST) + + + + + + | Component | Value | Ref Range | Performed | Pathologist | | | | | At | Signature | + + + + + + | WBC | 5.91 | 3.80 - 11.00 | EXTERNAL | | | | | K/uL | LAB | | + + + + + + | RED CELL | 3.67 (L) | 3.70 - 5.10 | EXTERNAL | | | COUNT | | M/uL | LAB | | + + + + + + | Hgb | 10.2 (L) | 11.3 - 15.5 | EXTERNAL | | | | | g/dL | LAB | | + + + + + + | Hematocrit, | 31.1 (L) | 34.0 - 46.0 % | EXTERNAL | | | POC | | | LAB | | + + + + + + | MCV | 84.8 | 80.0 - 100.0 fl | EXTERNAL | | | | | | LAB | | + + + + + + | MCH | 27.8 | 27.0 - 34.0 pg | EXTERNAL | | | | | | LAB | | + + + + + + | MCHC | 32.8 | 32.0 - 35.5 | EXTERNAL | | | | | g/dL | LAB | | + + + + + + | RDW-CV | 42.0 | 37 - 53 fl | EXTERNAL | | | | | | LAB | | + + + + + + | Platelet | 182 | 150 - 400 K/uL | EXTERNAL | | | Count | | | LAB | | | Plasma | | | | | + + + + + + | MPV | 10.3 | fl | EXTERNAL | | | | | | LAB | | + + + + + + | Differentia | AUTOMATED | | EXTERNAL | | | l Type | | | LAB | | + + + + + + | % Segmented | 56.22 | % | EXTERNAL | | | | | | LAB | | | Neutrophils | | | | | + + + + + + | % | 29.46 | % | EXTERNAL | | | Lymphocytes | | | LAB | | + + + + + + | % Monocytes | 8.51 | % | EXTERNAL | | | | | | LAB | | + + + + + + | % | 4.82 | % | EXTERNAL | | | Eosinophils | | | LAB | | + + + + + + | % Basophils | 0.99 | % | EXTERNAL | | | | | | LAB | | + + + + + + | Absolute | 3.32 | 1.90 - 7.40 | EXTERNAL | | | Segmented | | K/uL | LAB | | | Neutrophils | | | | | + + + + + + | Absolute | 1.74 | 1.00 - 3.90 | EXTERNAL | | | Lymphocytes | | K/uL | LAB | | + + + + + + | Absolute | 0.50 | 0.00 - 0.80 | EXTERNAL | | | Monocytes | | K/uL | LAB | | + + + + + + | Absolute | 0.29 | 0.00 - 0.50 | EXTERNAL | | | Eosinophils | | K/uL | LAB | | + + + + + + | Absolute | 0.06Comment: Testing | 0.00 - 0.10 | EXTERNAL | | | Basophils | performed at [facility] K/uL | LAB | | | | [address];[place], [place] | | | | | | [address] | | | | + + + + + + + + | Specimen | + + | Blood specimen | | (specimen) | + + + +---------+ + + | Performing | Address | City/State/Zipcode | Phone Number | | Organization | | | | + +---------+ + + | EXTERNAL LAB | | | | + +---------+ + + Basic Metabolic Panel (08/05/2018 11:00 AM PST) + + + + + + | Component | Value | Ref Range | Performed | Pathologist | | | | | At | Signature | + + + + + + | Na | 142 | 135 - 145 | EXTERNAL | | | | | mmol/L | LAB | | + + + + + + | K | 5.8 (H) | 3.5 - 4.9 | EXTERNAL | | | | | mmol/L | LAB | | + + + + + + | Cl | 112 (H) | 99 - 109 mmol/L | EXTERNAL | | | | | | LAB | | + + + + + + | CO2 | 19 (L) | 23 - 32 mmol/L | EXTERNAL | | | | | | LAB | | + + + + + + | Anion Gap | 17 | 5 - 20 mmol/L | EXTERNAL | | | | | | LAB | | + + + + + + | Glucose, | 111 (H) | 65 - 99 mg/dL | EXTERNAL | | | Fasting | | | LAB | | + + + + + + | BUN | 64 (H) | 8 - 25 mg/dL | EXTERNAL | | | | | | LAB | | + + + + + + | Creatinine | 2.6 (H) | 0.50 - 1.00 | EXTERNAL | | | | | mg/dL | LAB | | + + + + + + | BUN/Creatin | 25 | | EXTERNAL | | | ine Ratio | | | LAB | | + + + + + + | Calcium | 8.1 (L) | 8.5 - 10.5 | EXTERNAL | | | | | mg/dL | LAB | | + + + + + + | Estimated | 19 (L)Comment: GFR <60: | mL/min/1.73m2 | EXTERNAL | | | GFR | CHRONIC KIDNEY DISEASE, | | LAB | | | | IF FOUND OVER A 3 MONTH | | | | | | PERIOD.GFR <15: KIDNEY | | | | | | FAILURE.FOR | | | | | | AMERICANS, MULTIPLY THE | | | | | | CALCULATED GFR BY | | | | | | 1.210.This eGFR is | | | | | | calculated using the | | | | | | MDRD IDFL traceable | | | | | | equation.Testing | | | | | | performed at [facility] | | | | | | [facility];[place], [place] | | | | | | [address] | | | | + + + [...] + | Diagnosis | + + | CAD in iliamna artery Coronary atherosclerosis of iliamna coronary artery | + + | Congestive heart failure, unspecified HF chronicity, unspecified heart failure type | | (HCC) | + + | Precordial pain | + + | Ischemic cardiomyopathy Other specified forms of chronic ischemic heart disease | + + documented in this encounter
--- OUTSIDE RECORDS SUMMARY | ~2019-06-25 | XMS | Encounter Summary ---
Demographics + + + | Address | [address] | | | [place] [address] | + + + | Home Phone | | + + + | Preferred Language | Unknown | + + + | Marital Status | | + + + | Bahai Affiliation | [id number] | + + + | Race | Unknown | + + + | Ethnic Group | Unknown | + + + Author + + + | Author | [facility] | | | and [place] | + + + | Organization | [facility] | | [...] Team Providers + +------+ + | Care Maintenance Custodian Name | Role | Phone | + [...] | | | | | | [place] [address] | | | | | | [phone] | | | +--------+ + + + [...] 2020 | [facility] | | [address] [facility] | | | | | | [address] [place], [place] | | | | | | [address] | | | | | | | | +--------+---------+ + + + documented as of this encounter Visit Diagnoses Not on filedocumented in this encounter"
--- OUTSIDE RECORDS SUMMARY | ~2019-06-25 | XMS | Encounter Summary ---
Demographics + + + | Address | [address] | | | [place] [address] | + + + | Home Phone [...] + + | Author | [facility] | | | and [place] | + + + | Organization | [facility] | | | [...] Team Providers + +------+ + | Care Dope House Operator Helper Name | Role | Phone | + +------+ + PCP | Unavailable | + +------+ + Encounter Details +--------+ + + + + | Date | Type | Department | Care Team | Description | +--------+ + + + + | 10/14/ | Hospital | [facility] | Cal Godinez, | | | 2000 | Encounter | MED CTR GENERIC OP | MD [address] [facility] | | | | | CONV DEPT [address] | [place], [place] | | | | | [place], | [address] | | | | | [place] [address] | | | | | | [phone] | | | +--------+ + + + [...] 2020 | Visit | | [address] [facility] | | | | | | [address] [place] | | | | | | [address] | | | | | | | | +--------+---------+ + + + documented as of this encounter Visit Diagnoses Not on filedocumented in this encounter"
--- OUTSIDE RECORDS SUMMARY | ~2019-06-25 | XMS | Encounter Summary ---
Demographics + + + | Address | [address] | | | [place] [address] | + + + | Home Phone [...] Team Providers + +------+ + | Care Templer Head Name | Role | Phone | + [...] (congestive | PA-C [address] | [address] | | | | | heart | [address] | [place], | | | | | failure) | [place] | [place] | | | | | (HCC) | [address] | [address] | | | | | Procedures | [place], | Phone: | | | | | SUPERVISOR AIR CONDITIONING INSTALLER 02/11 > | [place] | [phone] | | | | | PENDING DOS | [address] | Fax: | | | | | | Phone: | [phone] | | | | | | [phone] | | | | | | | Fax: | | | | | | | [phone] | | +--------+--------+ + + + + Encounter Details +--------+---------+ + + + | Date | Type | Department | Care Team | Description | +--------+---------+ + + + | 03/03/ | Office | [facility] | Сергей Vasquez | Congestive heart | | 2017 | Visit | CARDIOLOGY [address] | MD Don [address] | failure, unspecified | | | | [place], | [address] [place] | HF chronicity, | | | | [place] [address] | [place] [address] | unspecified heart | | | | [phone] | [phone] | failure type (HCC) | | | | | | (Primary Dx); | | | | | | Myocardial | | | | | | infarction, | | | | | | unspecified PR type, | | | | | | [...] whether | | | | | | [place] or | | | | | | [...] procedure. 6. Make sure you have a tractor driver teamster to take you home. Your tractor driver teamster will also need to sign you ou [...] hospital line at and ask for nursing solar installation crew supervisor t o let them know you are [...] 4.7 Final Albumin/Globulin Ratio 01/27/2018 0.5 Final [facility] 01/27/2018 27.0 26.0 - 33.0 pg Final MCHC 01/27/2018 33.0 30.0 - 36.0 % Final BASOPHILS % 01/27/2018 0.3 1.0 % Final I reviewed records from [facility] for hospitalization,including H&P, Discharge [facility] and lab reports on 01/27/18 and 01/31/18. [...] made to ensure accuracy; however, inadvertent computerized project buyer errors may be pre sent. Electronically signed by: Kyler Vasquez MD PhD [facility] 03/03/2018 documented in t his encounter Plan of Treatment +--------+---------+ + + + | Date | Type | Specialty | Care Team | Description | +--------+---------+ + + + | 09/27/ | Office | Nephrology | James Pearce MD | | | 2019 | Visit | | [address] [facility] | | | | | | [address] [place], [place] | | | | | | [address] | | | | | | | [...] whether | | | | | | [place] or | | | | | | [...] whether | | | | | | [place] or | | | | | | [...] whether | | | | | | [place] or | | | | | | [...] MD | | | | | | ([id number]) on 03/04/2018 | | | | | [...] | + + | Myocardial infarction, unspecified PR type, unspecified artery (HCC) | + + | Cerebrovascular accident (CVA), unspecified mechanism (HCC) | + + | Hypertension, unspecified type | + + | Heart disease Heart disease, unspecified | + + | Tobacco use disorder | + + | Coronary artery disease, angina presence unspecified, unspecified vessel or lesion | | type, unspecified whether [place] or transplanted heart | + + documented in this encounter
--- OUTSIDE RECORDS SUMMARY | ~2019-06-25 | XMS | Encounter Summary ---
Demographics + + + | Address | [address] | | | [place] [address] | + + + | Home Phone | | + + + | Preferred Language | Unknown | + + + | Marital Status | | + + + | Jehovah'S Witness Affiliation | 1041 | + + + | Race | Unknown | + + + | Ethnic Group | Unknown | + + + Author + + + | Author | [facility] | | | and [place] | + + + | Organization | [facility] | | | [...] Team Providers + +------+ + | Care Emergency Spill Response Technician Name | Role | Phone | [...] (congestive | PA-C [address] | [address] | | | | | heart | NW | [place], | | | | | failure) | [place] | [place] | | | | | (HCC) | [address] | [address] | | | | | Procedures | [place], | Phone: | | | | | SUPERVISOR TRAIN OPERATIONS 02/11 > | [place] | [phone] | | | | | PENDING DOS | [phone] | Fax: | | | | | | Phone: | [phone] | | | | | | [phone] | | | | | | | Fax: | | | | | | | [phone] | | +--------+--------+ + + + + Encounter Details +--------+---------+ + + + | Date | Type | Department | Care Team | Description | +--------+---------+ + + + | 03/03/ | Office | [facility] | Сергей Vasquez | Congestive heart | | 2017 | Visit | CARDIOLOGY [address] | MD Don [address] | failure, unspecified | | | | [place], | [address] [place] | HF chronicity, | | | | [place] [address] | [place] [address] | unspecified heart | | | | [phone] | [phone] | failure type (HCC) | | | | | | (Primary Dx); | | | | | | Myocardial | | | | | | infarction, | | | | | | unspecified CA type, | | | | | | [...] whether | | | | | | saxman or | | | | | | [...] procedure. 6. Make sure you have a rolloff truck driver to take you home. Your rolloff truck driver will also need to sign [...] line at and ask for nursing supervisor assembly room t o let them know you are [...] 4.7 Final Albumin/Globulin Ratio 01/27/2018 0.5 Final [facility] 01/27/2018 27.0 26.0 - 33.0 pg Final MCHC 01/27/2018 33.0 30.0 - 36.0 % Final BASOPHILS % 01/27/2018 0.3 1.0 % Final I reviewed records from [facility] for hospitalization,including H&P, Discharge [facility] and lab reports on 01/27/18 and [...] made to ensure accuracy; however, inadvertent computerized reroller hand errors may be pre sent. Electronically signed by: Kyler Vasquez MD PhD [facility] 03/03/2018 documented in t his encounter Plan of Treatment +--------+---------+ + + + | Date | Type | Specialty | Care Team | Description | +--------+---------+ + + + | 09/27/ | Office | Nephrology | James Pearce MD | | | 2019 | Visit | | [address] [facility] | | | | | | [address] [place], [place] | | | | | | [address] | | | | | | | [...] whether | | | | | | saxman or | | | | | | [...] whether | | | | | | saxman or | | | | | | [...] whether | | | | | | saxman or | | | | | | [...] MD | | | | | | ([id number]) on 03/04/2018 | | | | | [...] | + + | Myocardial infarction, unspecified CA type, unspecified artery (HCC) | + + | Cerebrovascular accident (CVA), unspecified mechanism (HCC) | + + | Hypertension, unspecified type | + + | Heart disease Heart disease, unspecified | + + | Tobacco use disorder | + + | Coronary artery disease, angina presence unspecified, unspecified vessel or lesion | | type, unspecified whether saxman or transplanted heart | + + documented in this encounter
--- OUTSIDE RECORDS SUMMARY | ~2019-06-25 | XMS | Encounter Summary ---
Demographics + + + | Address | [address] | | | [place] [address] | + + + | Home Phone [...] Team Providers + +------+ + | Care Airplane Patroller Name | Role | Phone | + +------+ + | Bernadette Armendariz PA-C | PCP | | + +------+ + Encounter Details +--------+ + + + + | Date | Type | Department | Care Team | Description | +--------+ + + + + | 03/16/ | Orders Only | [facility] | James Pearce MD | Essential (primary) | | 2019 | | NEPRHOLOGY [place] | [address] | hypertension; Type 2 | | | | [address] | [address] [place], [place] | diabetes mellitus | | | | [address] [place], [place] | [address] | with complications | | | | [address] | | (HCC); Acute kidney | | | | [phone] | | failure (HCC) | +--------+ + [...] | | [address] [facility] [address] | | | | | | [address] [place], [place] | | | | | | [address] | | | | | | | [...]
--- OUTSIDE RECORDS SUMMARY | ~2019-06-25 | XMS | Encounter Summary ---
Demographics + + + | Address | [address] | | | [place] [address] | + + + | Home Phone | | + + + | Preferred Language | Unknown | + + + | Marital Status | | + + + | Latter Day Affiliation | 1041 | + + + | Race | Unknown | + + + | Ethnic Group | Unknown | + + + Author + + + | Author | [facility] | | | and [place] | + + + | Organization | [facility] | | | and [...] Team Providers + +------+ + | Care Take Away Man Name | Role | Phone | + +------+ + | Nathalie Castorena | PCP | | + +------+ + Encounter Details +--------+---------+ + + + | Date | Type | Department | Care Team | Description | +--------+---------+ + + + | 06/22/ | Office | [facility] | James Pearce MD | CKD (chronic kidney | | 2019 | Visit | NEPHROLOGY [place] | [address] [facility] | disease), stage IV | | | | [address] | [address] 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 Martin is [...] ED. I see no need for acute HEALTH CARE SOCIAL WORKER. I sent her for a repeat BMP [...] concerns. Truly yours, James Pearce MD FACP [facility] documented in this enco unter Plan of Treatment +--------+---------+ + + + | Date | Type | Specialty | Care Team | Description | +--------+---------+ + + + | 09/27/ | Office | Nephrology | James Pearce MD | | | 2019 | Visit | | [address] [facility] | | | | | | [address] [place], [place] | | | | | | [address] | | | | | | | [...]
--- OUTSIDE RECORDS SUMMARY | ~2019-06-25 | XMS | Encounter Summary ---
Demographics + + + | Address | [address] | | | [place] [address] | + + + | Home Phone | | + + + | Preferred Language | Unknown | + + + | Marital Status | | + + + | Zoroastrianism Affiliation | 1041 | + + + | Race | Unknown | + + + | Ethnic Group | Unknown | + + + Author + + + | Author | [facility] | | | and [place] | + + + | Organization | [facility] | | | [...] Team Providers + +------+ + | Care Nanny Babysitter Name | Role | Phone | + +------+ + | Bernadette Armendariz PA-C | PCP | | + +------+ + Encounter Details +--------+ + + + + | Date | Type | Department | Care Team | Description | +--------+ + + + + | 03/11/ | Orders Only | [facility] | James Pearce MD | Essential (primary) | | 2019 | | NEPHROLOGY [place] | [address] [place] | hypertension | | | | [address] [place] | [address] [place], [place] | (Primary Dx); CKD | | | | [address] [place], [place] | [address] | (chronic kidney | | | | [address] | | disease), stage IV | | | | [phone] | | (HCC); Nephrotic | | | [...] 2019 | Visit | | [address] [facility] | | | | | | [address] [place], [place] | | | | | | [address] | | | | | | | [...]
--- OUTSIDE RECORDS SUMMARY | ~2019-06-25 | XMS | Encounter Summary ---
Demographics + + + | Address | [address] | | | [place] [address] | + + + | Home Phone | | + + + | Preferred Language | Unknown | + + + | Marital Status | | + + + | Buddhism Affiliation | 1041 | + + + | Race | Unknown | + + + | Ethnic Group | Unknown | + + + Author + + + | Author | [facility] | | | and [place] | + + + | Organization | [facility] | | | and [place] | + + + | Address | Unknown | + + + | Phone | Unavailable | + + + Support + + +---------+ + | Name | Relationship | Address | Phone | + + +---------+ + | Bryan Martin | ECON | Unknown | | + + +---------+ + | Sachin Dweyr | ECON | Unknown | | + + +---------+ + | Bryan Martin | ECON | Unknown | | + + +---------+ + Care Team Providers + +------+ + | Care Flag Signalman Name | Role | Phone | + +------+ + | Bernadette Armendariz PA-C | PCP | | + +------+ + Encounter Details +--------+---------+ + + + | Date | Type | Department | Care Team | Description | +--------+---------+ + + + | 03/16/ | Office | [facility] | James Pearce MD | CKD (chronic kidney | | 2019 | Visit | NEPHROLOGY [place] | [address] [facility] | disease), stage IV | | | | [address] | [address] [place], [place] | ([facility]) (Primary Dx); | | | | [address] | [address] | Vitamin D | | | | [place], [place] | | deficiency; Anemia | | | | [address] | | of chronic renal | | | | [phone] | | failure, stage 4 | | | | | | (severe) (HCC); | | | | | | Secondary | | | | | | hyperparathyroidism | | | | | | ([facility]); 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 P M PDT documented in this encounter Progress Notes James Pearce MD - 03/16/2019 2:10 PM PDT Progress Notes by James Pearce MD at 11/17/18 6575 Author: James Pearce MD Service: (none) Author Type: Physician Filed: 11/17/18 6166 Encounter Date: 11/17/2018 Status: Signed Rn Visiting: James Pearce MD (Physician) Patient Active Problem [...] LABIRON 82.2 (A) 11/12/2018 LABPROT 4.982 08/07/2018 [id number] 8.5 (A) 11/12/2018 Assessment: Ms. Martin is [...] RFP, CBC, Iron studies, Ferritin, intact PTH, 98-rijsmbx-kacgaln D befor e she comes back in 3 months. Thank you Colleague for the opportunity to see this patient in F/U today. Please do not hes itate to call me at any time with questions or concerns. Truly yours, James Pearce MD [facility] documented in this enco unter Plan of Treatment +--------+---------+ + + + | Date | Type | Specialty | Care Team | Description | +--------+---------+ + + + | 09/27/ | Office | Nephrology | James Pearce MD | | | 2019 | Visit | | [address] [facility] | | | | | | [address] [place], [place] | | | | | | [address] | | | | | | | [...]
--- OUTSIDE RECORDS SUMMARY | ~2019-06-25 | XMS | Encounter Summary ---
Demographics + + + | Address | [address] | | | [place] [address] | + + + | Home Phone | | + + + | Preferred Language | Unknown | + + + | Marital Status | | + + + | Presybeterian Affiliation | 1041 | + + + [...] Team Providers + +------+ + | Care Wharf Operator Name | Role | Phone | + +------+ + | Bernadette Armendariz PA-C | PCP | | + +------+ + Encounter Details +--------+ + + + + | Date | Type | Department | Care Team | Description | +--------+ + + + + | 02/17/ | Abstract | [facility] | Сергей Gaitan | Congestive heart | | 2018 | | CARDIOLOGY [address] | MD [address] | failure, unspecified | | | | [place], | [address] [place] | HF chronicity, | | | | [place] [address] | [place] [address] | unspecified heart | | | | [phone] | [phone] | failure type (HCC) | | | [...] 2020 | Visit | | [address] [facility] | | | | | | [address] [facility] | | | | | | [address] | | | | | | | [...]
--- OUTSIDE RECORDS SUMMARY | ~2019-06-25 | XMS | Encounter Summary ---
Demographics + + + | Address | [address] | | | [place] [address] | + + + | Home Phone [...] Team Providers + +------+ + | Care Orthotic Assistant Name | Role | Phone | + +------+ + | Nathalie Castorena | PCP | | + +------+ + Encounter Details +--------+---------+ + + + | Date | Type | Department | Care Team | Description | +--------+---------+ + + + | 06/22/ | Office | [facility] | James Pearce MD | CKD (chronic kidney | | 2019 | Visit | NEPHROLOGY [place] | [address] [facility] | disease), stage IV | | | | [address] | [address] [facility] [place] [place] | ([facility]) (Primary Dx); | | | | [address] | [address] | Anemia of chronic | | | | [place], [place] | | renal failure, stage | | | | [address] | | 4 (severe) ([facility]); | | | | [phone] | | Essential (primary) | | | | | | hypertension; 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 Martin is [...] ED. I see no need for acute PREDATORY ANIMAL TRAPPER. I sent her for a repeat BMP [...] concerns. Truly yours, James Pearce MD FACP [facility] documented in this enco unter Plan of Treatment +--------+---------+ + + + | Date | Type | Specialty | Care Team | Description | +--------+---------+ + + + | 09/27/ | Office | Nephrology | James Pearce MD | | | 2019 | Visit | | [address] [facility] | | | | | | [address] [place], [place] | | | | | | [address] | | | | | | | [...]
--- OUTSIDE RECORDS SUMMARY | ~2019-06-25 | XMS | Encounter Summary ---
Demographics + + + | Address | [address] | | | [place] [address] | + + + | Home Phone | | + + + | Preferred Language | Unknown | + + + | Marital Status | | + + + | Yazdanism Affiliation | 1041 | + + + | Race | Unknown | + + + | Ethnic Group | Unknown | + + + Author + + + | Author | [facility] | | | and [place] | + + + | Organization | [facility] | | [...] Team Providers + +------+ + | Care Tack Welder Name | Role | Phone | + +------+ + | Nathalie Castorena | PCP | | + +------+ + Encounter Details +--------+ + + + + | Date | Type | Department | Care Team | Description | +--------+ + + + + | 03/10/ | Orders Only | [facility] | James Pearce MD | | | 2018 | | NEPHROLOGY [place] | [address] [place] | | | | | [address] | [address] [facility] [place] | | | | | [facility] [address] | [address] | | | | | [place], [place] | | | | | | [address] | | | | | | [phone] | | | +--------+ + + + [...] 2020 | Visit | | [address] [facility] | | | | | | 160 [place], [place] | | | | | | [address] | | | | | | | | +--------+---------+ + + + documented as of this encounter Visit Diagnoses Not on filedocumented in this encounter"
--- OUTSIDE RECORDS SUMMARY | ~2019-06-25 | XMS | Encounter Summary ---
Demographics + + + | Address | [address] | | | [place] [address] | + + + | Home Phone [...] Team Providers + +------+ + | Care Engineering Job Titles Name | Role | Phone | + +------+ + | Bernadette Armendariz PA-C | PCP | | + +------+ + Encounter Details +--------+ + + + + | Date | Type | Department | Care Team | Description | +--------+ + + + + | 02/23/ | Orders Only | [facility] | Provider, | Essential (primary) | | 2018 | | SYSTEM GENERIC OP | [address] | hypertension; Type 2 | | | | [address] | [address] | diabetes mellitus | | | | [address] [place], [place] | [place] [address] | with complications | | | | [address] | | ([facility]); Acute kidney | | | | [phone] | | failure ([facility]); | | | | | | Chronic kidney | | | | | | disease, stage IV | | | | | | (severe) ([facility]); | | | | | | Proteinuria; | | | | | | Secondary | | | | | | hyperparathyroidism | | | | | | of renal origin | | | | | | ([facility]); Vitamin D | | | [...] | | | | | | [address] [place], [place] | | | | | | [address] | | | | | | | [...] origin | | | | | | ([facility]) Vitamin D | | | [...] origin | | | | | | ([facility]) Vitamin D | | | [...] | | | | | | (severe) ([facility]) | | | | | | Proteinuria | | | | | | Secondary | | | | | | hyperparathyroidism | | | | | | of renal origin | | | | | | ([facility]) Vitamin D | | | [...] | | | | | | (severe) ([facility]) | | | | | | Proteinuria | | | | | | Secondary | | | | | | hyperparathyroidism | | | | | | of renal origin | | | | | | ([facility]) Vitamin D | | | [...]
--- OUTSIDE RECORDS SUMMARY | ~2019-06-25 | XMS | Encounter Summary ---
Demographics + + + | Address | [address] | | | [place] [address] | + + + | Home Phone [...] Team Providers + +------+ + | Care Receptionist Doctor'S Office Name | Role | Phone | + +------+ + | Nathalie Castorena | PCP | | + +------+ + Encounter Details +--------+ + + + + | Date | Type | Department | Care Team | Description | +--------+ + + + + | 06/24/ | Telephone | [facility] | James Pearce MD | | | 2019 | | NEPHROLOGY [place] | [address] [place] | | | | | [address] | [address] [place], [place] | | | | | [address] | [address] | | | | | [place], [place] | | | | | | [address] | | | | | | [phone] | | | +--------+ + + + [...] 2020 | Visit | | [address] [facility] | | | | | | [address] [place] | | | | | | [address] | | | | | | | | +--------+---------+ + + + documented as of this encounter Visit Diagnoses Not on filedocumented in this encounter"
--- OUTSIDE RECORDS SUMMARY | ~2019-06-25 | XMS | Encounter Summary ---
Demographics + + + | Address | [address] | | | [place] [address] | + + + | Home Phone | | + + + | Preferred Language | Unknown | + + + | Marital Status | | + + + | Mosque Affiliation | Unknown | + + + | Race | or | + + + | Ethnic Group | Not or | + + + Author + + + | Author | [facility] [employer] [facility] | + + + | Organization | [facility] [employer] [facility] | + + + | Address | Unknown | + + + | Phone | Unavailable | + + + Support + + + + + | Name | Relationship | Address | Phone | + + + + + | Angene Bill | ECON | [address] | | | | [address], [place] | | | | | [address] | | + + + + + Care Team Providers + +------+ + | Care Self Propelled Dredge Operator Name | Role | Phone | [...] | | | | | livia | [place], [place] | | | | | | [address] | | | +--------+ + + + [...]
--- OUTSIDE RECORDS SUMMARY | ~2019-06-25 | XMS | Encounter Summary ---
Demographics + + + | Address | [address] | | | [place] [address] | + + + | Home Phone | | + + + | Preferred Language | Unknown | + + + | Marital Status | | + + + | Jewish Affiliation | 1041 | + + + | Race | Unknown | + + + | Ethnic Group | Unknown | + + + Author + + + | Author | [facility] | | | and [place] | + + + | Organization | [facility] | | | [...] Team Providers + +------+ + | [facility] Name | Role | Phone | + +------+ + | Bernadette Armendariz PA-C | PCP | | + +------+ + Encounter Details +--------+ + + + + | Date | Type | Department | Care Team | Description | +--------+ + + + + | 03/16/ | Orders Only | [facility] | James Pearce MD | Essential (primary) | | 2019 | | NEPRHOLOGY [place] | [address] [place] | hypertension; Type 2 | | | | [address] | [address] [place], [place] | diabetes mellitus | | | | [address] [place], [place] | [address] | with complications | | | | [address] | | (HCC); Acute kidney | | | | [phone] | | failure (HCC) | +--------+ + [...] 2019 | Visit | | [address] [facility] | | | | | | [address] [place], [place] | | | | | | [address] | | | | | | | [...]
--- OUTSIDE RECORDS SUMMARY | ~2019-06-25 | XMS | Encounter Summary ---
Demographics + + + | Address | [address] | | | [place] [address] | + + + | Home Phone [...] Team Providers + +------+ + | Care Cigarette Maker Name | Role | Phone | [...] | Congestive | Сергей | [address] | | | | | heart | MD Don | [place], | | | | | failure, | [address] | [place] | | | | | unspecified | [place] | [address] | | | | | HF | [place], [place] | Phone: | | | | | chronicity, | [address] | [phone] | | | | | unspecified | Phone: | Fax: | | | | | heart | [phone] | [phone] | | | | | failure type | Fax: | | | | | | (HCC) | [phone] | | | | | | Coronary [...] | | | | | | | [place] or | | | | | | | transplanted | | | | | | | heart | | | | | | | Procedures | | | | | | | ECHO | | | | | | | Complete [place] | | | | | | | ECHO HEART | | | | | | | XTHORACIC,[place] | | | | | | | MPLETE W | | | | | | | DOPPLER [place] | | | | | | | [...] [address] | | | | [address] [place], | [address] [place] | | | | | [place] [address] | [place] [address] | | | | | [phone] | [phone] | | | | | | | [...] 2020 | Visit | | [address] [facility] | | | | | | [address] [place], [place] | | | | | | [address] | | | | | | | [...] whether | | | | | | [place] or | | | | | | [...] or lesion | | type, unspecified whether [place] or transplanted heart | + + documented in this encounter"
--- OUTSIDE RECORDS SUMMARY | ~2019-06-25 | XMS | Encounter Summary ---
Demographics + + + | Address | [address] | | | [place] [address] | + + + | Home Phone [...] Providers + +------+ + | [facility] Name | Role | Phone | + +------+ + | Bernadette Armendariz PA-C | PCP | | + +------+ + Encounter Details +--------+ + + + + | Date | Type | Department | Care Team | Description | +--------+ + + + + | 08/05/ | Hospital | [facility] | Conversion | CAD in [place] | | 2019 - | Encounter | [facility] | Transaction, | artery; Congestive | | | | CARE FLOOR 4 [address] | Provider Unknown | heart failure, | | | | [address] | [phone] | unspecified HF | | 2019 | | [place], [place] | | chronicity, | | | | [address] | Brynn Crawford MD | unspecified heart | | | | [phone] | [address] | failure type (HCC); | | | | | [place] [address] | Precordial pain; | | | | | [phone] | Ischemic | | | | | [...] 08/11/181929 Date of Service: 08/10/18941 Status: Signed Digital Media Associate: Gustavo Castorena MD (Physician) [facility] Service: Hospitalist Physician Discharge Summary Patient [...] Invalid input(s): ABG Disposition: HOME Follow up: [facility] [address] [place] [address] [place] [address] Schedule an appointment as soon as possible [...] 1558 Date of Service: 08/11/181499 Status: Signed Digital Media Associate: Cinthya Carmen RN (Registered Nurse) Pt discharge home with family. Pt states understanding about scripts and paperwork. IV d/c. Tele d/c. Family to transport pt home. onver federico Transaction, Provider Unknown - 08/11/2018 12:50 PM PST Case Management by Damaris Canchola RN at 08/11/181249 Author: Damaris Canchola RN Service: (none) Author Type: Registered Nurse Filed: 08/11/181249 Date of Service: 08/11/181249 Status: Signed Digital Media Associate: Damaris Canchola RN (Registered Nurse) Met with [...] Date of Service: 08/11/18 1045 Status: Signed Digital Media Associate: Shin Rviera MD (Physician) PCP : [facility] LOS: 5 days Maria Ines [...] was completed later after rounds. Dictation software, [employer], was used which may contain error for [...] 08/11/18615 Date of Service: 08/11/18614 Status: Signed Digital Media Associate: Francy Beckford RN (Registered Nurse) VSS. Patient [...] 08/10/181751 Date of Service: 08/10/181747 Status: Signed Digital Media Associate: Kaia Penaloza RN (Registered Nurse) Pt down [...] Notes by Teena Encinas RD at 08/10/18 7086 Author: Teena Encinas RD Service: (none) Author Type: Registered Dietitian Filed: 08/10/18 0431 Date of Service: 08/10/186 Status: Signed Digital Media Associate: Teena Encinas RD (Registered Dietitian) 08/10/18 3720 Subjective Timepoint Follow up (diet education) Food and Nutrition Knowledge Area(s) and Level of Knowledge In to see pt for renal cardiac diet. Pt K+ WNL at this time but hx hyperkalemia. Discussed high potassium foods and provided list from [facility]. Discussed th at she does not need to limit at this time with ARF and WNL K+ but may need to in the future . Provided low sodium handout from [facility] and discussed. Pt reports that she is [...] Date of Service: 08/10/18 1209 Status: Signed Digital Media Associate: Shin Rivera MD (Physician) PCP : [facility] LOS: 4 days Maria Ines [...] was completed later after rounds. Dictation software, [employer], was used which may contain error for [...] 0957 Date of Service: 08/10/18951 Status: Signed Digital Media Associate: Gustavo Castorena MD (Physician) [facility] Service: Hospitalist Progress Note Hospital Day: LOS: 4 days SUBJECTIVE Still c/o back pain. 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 Maria Ines Martin is a [...] and management as well as Computerized Physician Broker Associate. Disposition: Home ? Code Status: Full Code Gustavo Castorena MD 08/10/2018 9:57 AM onversion Transactio n, Provider Unknown - 08/10/2018 6:23 AM PST Nurse Progress Note by Francy Beckford RN at 08/10/18622 Author: Francy Beckford RN Service: (none) Author Type: Registered Nurse Filed: 08/10/18627 Date of Service: 08/10/18622 Status: Signed Digital Media Associate: Francy Beckford RN (Registered Nurse) VSS. Pt [...] 08/09/181751 Date of Service: 08/09/181749 Status: Signed Digital Media Associate: Kaia Penaloza RN (Registered Nurse) VSS today. [...] Notes by Shin Rivera MD at 08/09/18 8817 Author: Shin Rivera MD Service: Nephrology Author Type: Physician Filed: 08/10/18 0751 Date of Service: 08/09/181747 Status: Signed Digital Media Associate: Shin Rivera MD (Physician) PCP : [facility] LOS: 3 days Maria Ines [...] outpatient follow up with Dr. Pearce in [place]. Strict low K diet. Diet 2 gm [...] was completed later after rounds. Dictation software, [employer], was used which may contain error for [...] 1421 Date of Service: 08/09/181415 Status: Signed Digital Media Associate: Gustavo Castorena MD (Physician) [facility] Service: Hospitalist Progress Note Hospital Day: [...] and management as well as Computerized Physician Broker Associate. Disposition: Home ? Code Status: Full Code Gusatvo Castorena MD 08/09/2018 2:16 PM onversion Transactio n, Provider Unknown - 08/09/2018 6:26 AM PST Nurse Progress Note by Francy Beckford RN at 08/09/18 1071 Author: Francy Beckford RN Service: (none) Author Type: Registered Nurse Filed: 08/09/18 6943 Date of Service: 08/09/18625 Status: Signed Digital Media Associate: Francy Beckford RN (Registered Nurse) Patient complained [...] 08/08/182000 Date of Service: 08/08/182000 Status: Signed Digital Media Associate: Nimo Heredia RN (Registered Nurse) No significant [...] Date of Service: 08/08/18 164 Status: Signed Digital Media Associate: Brynn Crawford MD (Physician) [facility] Service: Cardiology/[facility] Progress Note RE: Maria Ines [...] Mild mitral regurgitation is present. Scores: 1. PUS3AL5-Epzq Score: 3 2. Cuban Anginal Score: 3 3. NYHA Score: 2 [...] 1541 Date of Service: 08/08/181535 Status: Signed Digital Media Associate: Damaris Canchola RN (Registered Nurse) Tc from [place]([phone]), CM with [facility] re d/c plan, infor med that d/c date is still unknown. [facility] transport dept, states they dont provide transportation on wkn[place], but would need to call [facility] for [place] transport call . If [facility] is not able to provide transportation, need to ask family or pay for taxi. Kathe Gustavo Lara MD - 08/08/2018 2:53 PM PSTFormatting of this note might be different from the or iginal. Progress Notes by Gustavo Castorena MD at 08/08/18 2693 Author: Gustavo Castorena MD Service: Internal Medicine Author Type: Physician Filed: 08/08/181456 Date of Service: 08/08/181452 Status: Signed Digital Media Associate: Gustavo Castorena MD (Physician) [facility] Service: Hospitalist Progress Note Hospital Day: [...] LIST Principal Problem: GRACIELA (acute kidney injury) ([facility]) Active Problems: Ischemic cardiomyopathy Chronic systolic heart failure (HCC) Hyperkalemia Essential hypertension Type 2 diabetes mellitus with complication, with long-term current use of insulin ([facility]) ASSESSMENT / PLAN Heart failure [...] and management as well as Computerized Physician Broker Associate. Disposition: Home ? Code Status: Full Code Gustavo Castorena MD 08/08/2018 2:53 PM Shin Vale MD - 08/08/2018 11:26 AM PST Progress Notes by Shin Rivera MD at 08/08/18 1126 Author: Shin Rivera MD Service: Nephrology Author Type: Physician Filed: 08/10/18 1223 Date of Service: 08/08/18 1126 Status: Signed Digital Media Associate: Shin Rivera MD (Physician) PCP : [facility] LOS: 2 days Maria Ines [...] was completed later after rounds. Dictation software, [employer], was used which may contain error for similar sounding words nabor jackman after review. Personal communication is requested for any clarification. Prognosis is guarded in view of multiple comorbid illnesses and acute on chronic renal fail ure including but not limited to potential need for EXTRUDER TENDER and . amLODIPine 7.5 mg Oral Daily [...] 0700 Date of Service: 08/08/1859 Status: Signed Digital Media Associate: Little Infante RN (Registered Nurse) Pt had [...] by Nimo Heredia RN at 08/07/182005 Author: iNmo Heredia RN Service: (none) Author Type: Registered Nurse Filed: 08/07/182005 Date of Service: 08/07/182005 Status: Signed Digital Media Associate: Nimo Heredia RN (Registered Nurse) No significant [...] Management by Damaris Canchola RN at 08/07/18 1811 Author: Damaris Canchola RN Service: (none) Author Type: Registered Nurse Filed: 08/07/18 1202 Date of Service: 08/07/18 1156 Status: Signed Digital Media Associate: Damaris Canchola RN (Registered Nurse) Tc to Kathrin([phone]), CM with [facility] re d/c plan, LMTCB Per pt, wants CM to call [facility] transportation maintenance worker re transport back [phone]. Per [place], for wknd medicaid transport call Kathe onver federico Transaction, Provider Unknown - 08/07/2018 11:47 AM PST Case Management by Damaris Canchola RN at 08/07/18 1147 Author: Damaris Canchola RN Service: (none) Author Type: Registered Nurse Filed: 08/07/18 1149 Date of Service: 08/07/18 1147 Status: Signed Digital Media Associate: Damaris Canchola RN (Registered Nurse) 08/07/18 1100 [...] with spouse and child(disabled chi ld) in [place]. Pt states she is indep with all her adl's, but does use a cane if needed f or outdoors as she has vision deficits.no home o2, no anticoagulants, no HD. Plans to return home Patient's PCP is: [facility] Patient's insurance[facility] Coverage concerns: Medication coverage/concerns: Rx [...] 1058 Date of Service: 08/07/181049 Status: Signed Digital Media Associate: Gustavo Castorena MD (Physician) [facility] Service: Hospitalist Progress Note Hospital Day: [...] and management as well as Computerized Physician Broker Associate. Disposition: Home ? Code Status: Full Code Gustavo Castorena MD 08/07/2018 10:50 AM Brynn Hanna MD - 8:47 AM PST Progress Notes by Brynn Crawford MD at 08/07/18 9482 Author: Brynn Crawford MD Service: Cardiology Author Type: Physician Filed: 08/07/18 0914 Date of Service: 08/07/18 0847 Status: Signed Digital Media Associate: Brynn Crawford MD (Physician) [facility] Service: Cardiology/[facility] Progress Note RE: Maria Ines [...] Mild mitral regurgitation is present. Scores: 1. [id number]-Oqkt Score: 2. Cuban Anginal Score: 3. NYHA Score: ASSESSMENT: 1. [...] than what it was reported previously at [facility]. Regardless with her history of chest [...] 08/07/18626 Date of Service: 08/07/18625 Status: Signed Digital Media Associate: Agustina Cade RN (Registered Nurse) End of shift audit complete. AGUSTINA CADE RN onver federico Transaction, Provider Unknown - 08/06/2018 5:18 PM PST Nurse Progress Note by Jacquie Miranda RN at 08/06/181717 Author: Jacquie Miranda RN Service: (none) Author Type: Registered Nurse Filed: 08/06/181718 Date of Service: 08/06/181717 Status: Signed Digital Media Associate: Jacquie Miranda RN (Registered Nurse) End of shift chart check completed Gustavo Lara MD - 08/06/2018 1:52 PM PSTFormatting of this note might be different from the or iginal. Progress Notes by Gustavo Castorena MD at 08/06/18 397 Author: Gustavo Castorena MD Service: Internal Medicine Author Type: Physician Filed: 08/06/18 1353 Date of Service: 08/06/18 099 Status: Signed Digital Media Associate: Gustavo Castorena MD (Physician) [facility] Service: Hospitalist Progress Note Hospital Day: [...] and management as well as Computerized Physician Broker Associate. Disposition: Home ? Code Status: Full Code Gustavo Castorena MD 08/06/2018 1:55 PM onversion Transactio n, Provider Unknown - 08/06/2018 12:04 PM PST Progress Notes by Anjali Kerr RD at 08/06/18 1204 Author: Anjali Kerr RD Service: (none) Author Type: Registered Dietitian Filed: 08/06/18 1203 Date of Service: 08/06/18 120 Status: Signed Digital Media Associate: Anjali Kerr RD (Registered Dietitian) 08/06/18 9205 Subjective Timepoint Admit Pt c/o Pt triggered for dysphagia. Pt admitted for acute renal failure. 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 Pt went ov er her hx of [...] any concerns for dysphag ia consider ordering METAL FURNITURE ASSEMBLER eval. Anthropometrics Weight change Pt's BMI is 34 and pt is 166% of IBW. Pt reports she has gained wt over the p ast 4 months after stopping meth. Biochemical data, medical tests, and procedures reviewed Biochemical data, medical tests, and procedures reviewed Labs reviewed. Recommendations Recommended energy needs Continue diet as ordered with modications per METAL FURNITURE ASSEMBLER, if needed. Enco urage po intake as [...] 0936 Date of Service: 08/06/18850 Status: Signed Digital Media Associate: Brynn Crawford MD (Physician) [facility] Service: Cardiology/[facility] Progress Note RE: Maria Ines [...] prolonged QRS Imaging Chest X-Ray: Scores: 1. [id number] Score: 2. Cuban Anginal Score: 3. NYHA Score: ASSESSMENT: 1. [...] 08/06/18517 Date of Service: 08/06/18517 Status: Signed Digital Media Associate: Cheryl Patel RN (Registered Nurse) End of shift audit complete. onver federico Transaction, Provider Unknown - 08/05/2018 5:56 PM PST Nurse Progress Note by Ghada Crawley RN at 08/05/181755 Author: Ghada Crawley RN Service: (none) Author Type: Registered Nurse Filed: 08/05/181755 Date of Service: 08/05/18 1756 Status: Signed Digital Media Associate: Ghada Crawley RN (Registered Nurse) End of shift review complete GHADA CRAWLEY RN Brynn Merrill MD - 08/05/2018 1:38 PM PSTFormatting of this note might be different from the orig inal. Progress Notes by Brynn Crawford MD at 08/05/18 5931 Author: Brynn Crawford MD Service: Cardiology Author Type: Physician Filed: 08/05/18 2950 Date of Service: 08/05/18 9999 Status: Signed Digital Media Associate: Brynn Crawford MD (Physician) Mrs. Martin presented [...] was seen by Dr. Vic Gaitan in [facility] for evaluation. An echoca rdiogram was obtained [...] cant ST or T-wave abnormalities. Scores: 1. ZVC2ZX1-Cpjj Score: 4 2. Cuban Anginal Score: 2 3. NYHA Score: 2-3 [...] 2019 | Visit | | [address] [facility] | | | | | | [address] | | | | | | [address] | | | | | | | [...] | | | Fingerstick | performed at [facility];[address] | | LAB | | | | [address];[place] | | | | | | [address] | | | | + + + [...] | | | Fingerstick | performed at [facility];[address] | | LAB | | | | [address];[place], [place] | | | | | | [address] | | | | + + + [...] | | | | | performed at [facility], [address] | | | | | | [address], | | | | | | [place] [address] | | | | + + + [...] | | | Fingerstick | performed at [facility];[address] | | LAB | | | | [address];[place], [place] | | | | | | [address] | | | | + + + [...] | | | Fingerstick | performed at [facility];[address] | | LAB | | | | [address];[place], [place] | | | | | | [address] | | | | + + + [...] | | | Fingerstick | performed at [facility];[address] | | LAB | | | | [address];[place], [place] | | | | | | [address] | | | | + + + [...] | | | Fingerstick | performed at [facility];[address] | | LAB | | | | [address];[place] | | | | | | [address] | | | | + + + [...] EXTERNAL | | | | performed at [facility], [address] | | LAB | | | | [address], | | | | | | [place] [address] | | | | + + + [...] | | | | | performed at [facility], [address] | | | | | | [facility], | | | | | | [place] [address] | | | | + + + [...] | | | Fingerstick | performed at [facility];[address] | | LAB | | | | [address];[place], [place] | | | | | | [address] | | | | + + + [...] | | | Fingerstick | performed at [facility];[address] | | LAB | | | | [address];[place], [place] | | | | | | [address] | | | | + + + [...] | | | Fingerstick | performed at [facility];[address] | | LAB | | | | [address];[place] | | | | | | [address] | | | | + + + [...] EXTERNAL | | | | performed at [facility], [address] | | LAB | | | | [address], | | | | | | [place] [address] | | | | + + + [...] EXTERNAL | | | | performed at [facility], [address] | | LAB | | | | [address], | | | | | | [place] [address] | | | | + + + [...] | | | | | performed at [facility], [address] | | | | | | [facility], | | | | | | [place] [address] | | | | + + + [...] | | | Fingerstick | performed at [facility];[address] | | LAB | | | | [address];[place], [place] | | | | | | [address] | | | | + + + [...] | | | Fingerstick | performed at [facility];[address] | | LAB | | | | [address];[place] | | | | | | [address] | | | | + + + [...] radial artery and a | | | 6-Norwegian sheath was placed. The JL-3.5 catheter was [...] right radial artery and a | | 6-Norwegian sheath was placed. The JL-3.5 catheter was [...] | | | Fingerstick | performed at [facility];[address] | | LAB | | | | [address];[place] | | | | | | [address] | | | | + + + + + + + + | Specimen | + + | | + + + +---------+ + + | Performing | Address | City/State/Zipcode | Phone Number | | Organization | | | | + +---------+ + + | EXTERNAL LAB | | | | + +---------+ + + [facility] (08/08/2018 12:12 PM PST) + + + + + + | Component | Value | Ref Range | Performed | Pathologist | | | | | At | Signature | + + + + + + | Ig [facility] | 96.5 (H)Comment: | mg/L | EXTERNAL [...] + + + + + + | [facility] | 1.50Comment: Reference | | EXTERNAL | | | a Free | range: 0.26 to | | LAB | | | Light Chain | 1.65Testing performed at | | | | | Ratio | [facility], [address] | | | | | | [place] | | | | | | [address] | | | | + + + [...] | | Comp 4 | performed at [facility], [address] | | LAB | | | | [address], | | | | | | [place] [address] | | | | + + + [...] at | | | | | | [facility], [address] [facility] | | | | | | [place] | | | | | | [address] | | | | + + + [...] | | | | | [place] [address] | | | | + + + [...] | | | | | | at [facility], [address] | | | | | | [address], | | | | | | [place] [address] | | | | + + + [...] | | | | | performed at [facility], [address] | | | | | | [facility], | | | | | | [place] [address] | | | | + + + [...] | | | | | performed at [facility], [address] | | | | | | [address] | | | | | | [place] [address] | | | | + + + [...] | | | | | with both [place]-3 and | | | | | | [...] | | | 3 | performed by [facility], | | | | | | [address], | | | | | | [facility] [address] | | | | + + + [...] | | | | | | [place] [address] | | | | + + + [...] | | Quant, CSF | performed at [facility], | | | | | | [address], [address], | | | | | | [place] [address] | | | | + + + [...] EXTERNAL | | | | performed at [facility], [address] | | LAB | | | | [address], | | | | | | [place] [address] | | | | + + + [...] EXTERNAL | | | | performed at [facility], [address] | | LAB | | | | [address], | | | | | | [place] [address] | | | | + + + [...] | | | | | [place] [address] | | | | + + + [...] | | | Fingerstick | performed at [facility];[address] | | LAB | | | | [address];[place], [place] | | | | | | [address] | | | | + + + [...] | | | Fingerstick | performed at [facility];[address] | | LAB | | | | [address];[place], [place] | | | | | | [address] | | | | + + + [...] EXTERNAL | | | | performed at [facility], [address] | | LAB | | | | [facility], | | | | | | [place] [address] | | | | + + + [...] EXTERNAL | | | | performed at [facility], [address] | | LAB | | | | [address], | | | | | | [place] [address] | | | | + + + [...] | | | | | performed at [facility], [address] | | | | | | [facility], | | | | | | [place] [address] | | | | + + + [...] | | | Fingerstick | performed at [facility];[address] | | LAB | | | | [address];[place] | | | | | | [address] | | | | + + + [...] | | | Fingerstick | performed at [facility];[address] | | LAB | | | | [address];[place], [place] | | | | | | [address] | | | | + + + [...] | | | | | performed at [facility] | | | | | | [facility];[place] | | | | | | [address] | | | | + + + [...] | | | Fingerstick | performed at [facility];[address] | | LAB | | | | [address];[place] | | | | | | [address] | | | | + + + [...] | | at Ratio | performed at [facility], [address] | | LAB | | | | [facility], | | | | | | [place] [address] | | | | + + + [...] | | | | | performed at [facility], [address] | | | | | | [facility], | | | | | | [place] [address] | | | | + + + [...] LAB | | | | performed at [facility], [address] | | | | | [address], | | | | | | [place] [address] | | | | + + + [...] LAB | | | | performed at [facility], [address] | | | | | [address], | | | | | | [place] [address] | | | | + + + [...] | | | Fingerstick | performed at [facility];[address] | | LAB | | | | [address];[place], [place] | | | | | | [address] | | | | + + + [...] EXTERNAL | | | | performed at [facility], [address] | | LAB | | | | [address], | | | | | | [place] [address] | | | | + + + [...] EXTERNAL | | | | performed at [facility], [address] | | LAB | | | | [address], | | | | | | [place] [address] | | | | + + + [...] | | | | | performed at [facility], [address] | | | | | | [facility], | | | | | | [place] [address] | | | | + + + [...] | | | Fingerstick | performed at [facility];[address] | | LAB | | | | [address];[place], [place] | | | | | | [address] | | | | + + + [...] | | | Fingerstick | performed at [facility];[address] | | LAB | | | | [address];[place] | | | | | | [address] | | | | + + + [...] | A Brock: 0.60 m/s TV Dec Walsh: 2.33 m/s2 TV Dec Time: | | | 240.52 ms TV E Brock: 0.56 m/s TV E/A Ratio: 0.92 | | | Fountain Vending Mechanic: GONZALO Authenticated by: Brynn Crawford MD Report Date/Time: | | | -- [id number] | | + + + + + [...] mlLAESV Index (A-L): 40.23 ml/m2LAAs A2C: 24.44 [id number] A-L | | A2C: 74.48 mlLALs A2C: 6.81 cmLAAs A4C: 21.96 [id number] A-L A4C: 68.67 mlLALs | | A4C: 5.96 cmRAAd: 13.73 ft3UUYOB A-L: 33.61 mlRAEDV MOD: 31.44 mlRALd: 4.76 | | cmEPSS: 2.39 cmAV maxP.50 mmHgAV meanP.57 mmHgAV Vmax: 1.76 m/John | | Vmean: 1.20 m/John VTI: 39.54 cmAVA Vmax: 2.19 cm2AVA (VTI): 2.37 so5GCTZ Vmax: | | 0.00 cm2/m2AVAI (VTI): 0.00 [...] 25.31 cmTV A Brock: 0.60 m/sTV Dec Walsh: 2.33 m/s2TV | | Dec Time: 240.52 msTV E Brock: 0.56 m/sTV E/A Ratio: 0.92 Fountain Vending Mechanic: | | GDAuthenticated by: Brynn Crawford MDReport Date/Time: [id number] | | IMPRESSION: 1. Overall left ventricular [...] A Brock: 0.60 m/s | |TV Dec Walsh: 2.33 m/s2 | |TV Dec Time: 240.52 ms | |TV E Brock: 0.56 m/s | |TV E/A Ratio: 0.92 | | | |Fountain Vending Mechanic: GD | |Authenticated by: Brynn Crawford MD | |Report Date/Time: -- [id number] | | | |IMPRESSION: | |1. Overall [...] LAB | | | | performed at [facility], [address] | | | | | | [address], | | | | | | [place] [address] | | | | + + + [...] - 1.030 | EXTERNAL | | | [place] | | | LAB | | + [...] | | | Urine | performed at [facility], [address] | | LAB | | | | [address]ae[address], | | | | | | [place] [address] | | | | + + + [...] EXTERNAL | | | | performed at [facility] | mmol/L | LAB | | | | [address];[place], [place] | | | | | | [address] | | | | + + + [...] | | | Fingerstick | performed at [facility] [place] [place];[address] | | LAB | | | | [address];[place], [place] | | | | | | [address] | | | | + + + [...] EXTERNAL | | | | performed at [facility], [address] | | LAB | | | | Janet [address]ae[address], | | | | | | [place] [address] | | | | + + + [...] | | | | | [place] [address] | | | | + + + [...] EXTERNAL | | | | performed at [facility], [address] | | LAB | | | | [address]ae[address], | | | | | | [place] [address] | | | | + + + [...] | EXTERNAL | | | A1c | [place] [facility] | | LAB | | | [...] | | | | | performed at [facility], [address] | | | | | | [facility], | | | | | | [place] [address] | | | | + + + [...] | | | | | performed at [facility] [place];[address] | | | | | | [address] [facility];[place], [place] | | | | | | [address] | | | | + + + [...] | | | Fingerstick | performed at [facility];[address] | | LAB | | | | [address];[place], [place] | | | | | | [address] | | | | + + + [...] EXTERNAL | | | | performed at [facility];888 | mmol/L | LAB | | | | Tal[address] Sae[address];[place] | | | | | | [address] | | | | + + + [...] | | | Fingerstick | performed at [facility];[address] | | LAB | | | | [address]ae[address];[place] | | | | | | [address] | | | | + + + [...] LAB | | | | performed at [facility];[address] | | | | | | [address];[place], [place] | | | | | | [address] | | | | + + + [...] | | | Basophils | performed at [facility];888 | K/uL | LAB | | | | [address];[place], [place] | | | | | | [address] | | | | + + + [...] | | | | | | MDRD IDCT traceable | | | | | | equation.Testing | | | | | | performed at 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
--- OUTSIDE RECORDS SUMMARY | ~2019-06-25 | XMS | Encounter Summary ---
Demographics + + + | Address | [address] | | | [place] [address] | + + + | Home Phone [...] Team Providers + +------+ + | Care Pulp Beater Name | Role | Phone | + +------+ + | Bernadette Armendariz PA-C | PCP | | + +------+ + Encounter Details +--------+ + + + + | Date | Type | Department | Care Team | Description | +--------+ + + + + | 12/02/ | Emergency | [facility] | [facility], | | | 2019 - | | MEDICAL CENTER | MD [address] | | | | | EMERGENCY CENTER | [place] | | | 12/03/ | | [address] | [place] [address] | | | 2018 | | [place], [place] | [phone] | | | | | [address] | | | | | | [phone] | | | +--------+ + + + [...] 2019 | Visit | | [address] [facility] | | | | | | [address] [place] | | | | | | [address] | | | | | | | | +--------+---------+ + + + documented as of this encounter Visit Diagnoses Not on filedocumented in this encounter"
--- OUTSIDE RECORDS SUMMARY | ~2019-06-25 | XMS | Encounter Summary ---
Demographics + + + | Address | [address] | | | [place] [address] | + + + | Home Phone [...] Team Providers + +------+ + | Care Hotel Custodian Name | Role | Phone | + +------+ + | Bernadette Armendariz PA-C | PCP | | + +------+ + Encounter Details +--------+ + + + + | Date | Type | Department | Care Team | Description | +--------+ + + + + | 03/11/ | Orders Only | [facility] | James Pearce MD | Essential (primary) | | 2019 | | NEPHROLOGY [place] | [address] [place] | hypertension | | | | [address] [place] | [address] [place], [place] | (Primary Dx); CKD | | | | [address] [place], [place] | [address] | (chronic kidney | | | | [address] | | disease), stage IV | | | | [phone] | | (HCC); Nephrotic | | | [...] 2019 | Visit | | [address] [facility] | | | | | | [address] [place], [place] | | | | | | [address] | | | | | | | [...]
--- OUTSIDE RECORDS SUMMARY | ~2019-06-25 | XMS | Clinical Summary ---
Demographics + + + | Address | [address] | | | [place] [address] | + + + | Home Phone | | + + + | Preferred Language | Unknown | + + + | Marital Status | Unknown | + + + | Amish Affiliation | Unknown | + + + | Race | Unknown | + + + | Ethnic Group | Unknown | + + + Author + + + | Author | [employer] [facility] (Historical as of | | | 03-07-19) | + + + | Organization | [facility] (Historical as of | | | 03-07-19) [...] Team Providers + +------+ + | Care Ruffling Machine Operator Name | Role | Phone [...] | CKD (chronic kidney disease), stage IV ([facility]) | 11/17/2018 | + + + | Anemia of chronic renal failure, stage 4 (severe) ([facility]) | 11/17/2018 | + + [...] +------+-------+ + | MEDICAID | [place] | [id number] | | | [address] | | | N | | | | [place] | | | [place] | | | | [address] | | | WATER PURIFIER | | | | | + +--------+ +------+-------+ + | /[facility] | YELLOW | [id number] | | | | | PLANS | [...] | Self | [birth year] Home: | [address] | | | al/Fam | | 1954 | +1-000-000- | [place] | | | jeni | | | [birth year] | [address] | + +--------+ +--------+ + +
--- OUTSIDE RECORDS SUMMARY | ~2019-06-25 | XMS | Encounter Summary ---
Demographics + + + | Address | [address] | | | [place] [address] | + + + | Home Phone [...] Team Providers + +------+ + | Care Air Deodorizer Servicer Name | Role | Phone | + +------+ + | Bernadette Armendariz PA-C | PCP | | + +------+ + Encounter Details +--------+ + + + + | Date | Type | Department | Care Team | Description | +--------+ + + + + | 03/17/ | Orders Only | [facility] | James Pearce MD | Essential (primary) | | 2019 | | NEPHROLOGY [place] | [address] [place] | hypertension; | | | | [address] [place] | [address] [place], [place] | Chronic kidney | | | | [address] [place], [place] | [address] | disease, stage IV | | | | [address] | | (severe) ([facility]); | | | | [phone] | | Proteinuria; | | | | | | Secondary | | | | | | hyperparathyroidism | | | | | | of renal origin | | | | | | ([facility]); Vitamin D | | | [...] | | [address] [facility] [place] | | | | | | [address] [place], [place] | | | | | | [address] | | | | | | | [...]
--- OUTSIDE RECORDS SUMMARY | ~2019-06-25 | XMS | Encounter Summary ---
Demographics + + + | Address | [address] | | | [place] [address] | + + + | Home Phone [...] Team Providers + +------+ + | Care Life Consultant Name | Role | Phone | + +------+ + | Bernadette Armendariz PA-C | PCP | | + +------+ + Encounter Details +--------+ + + + + | Date | Type | Department | Care Team | Description | +--------+ + + + + | 03/18/ | Orders Only | [facility] | James Pearce MD | Essential (primary) | | 2019 | | NEPHROLOGY [place] | [address] [place] | hypertension | | | | [address] [place] | [address] [place], [place] | (Primary Dx); | | | | [address] [place], [place] | [address] | Secondary | | | | [address] | | hyperparathyroidism | | | | [phone] | | (HCC); CKD (chronic | | | | | | kidney disease), | | | | | | stage IV ([facility]); | | | | | | Anemia of chronic | | | | | | renal failure, stage | | | | | | 4 (severe) ([facility]); | | | | | | Vitamin [...] 2019 | Visit | | [address] [facility] [place] | | | | | | [address] [place], [place] | | | | | | [address] | | | | | | | [...] | | | | 4 (severe) ([facility]) | | + +------+--------+ + + | [...]
--- OUTSIDE RECORDS SUMMARY | ~2019-06-25 | XMS | Encounter Summary ---
Demographics + + + | Address | [address] | | | [place] [address] | + + + | Home Phone [...] Team Providers + +------+ + | Care Diplomatic Courier Name | Role | Phone | + +------+ + | Bernadette Armendariz PA-C | PCP | | + +------+ + Encounter Details +--------+ + + + + | Date | Type | Department | Care Team | Description | +--------+ + + + + | 11/12/ | Orders Only | [facility] | James Pearce MD | | | 2019 | | NEPHROLOGY [place] | [address] [place] | | | | | [address] [place] | [address] [place], [place] | | | | | [facility] [place] | [address] | | | | | [address] | | | | | | [phone] | | | +--------+ + + + [...] 2020 | Visit | | [address] [facility] | | | | | | [address] [place], [place] | | | | | | [address] | | | | | | | [...] | | | LAB | | | AFGHAN | | | | | + +---------+ [...]
--- OUTSIDE RECORDS SUMMARY | ~2019-06-25 | XMS | Encounter Summary ---
Demographics + + + | Address | [address] | | | [place] [address] | + + + | Home Phone [...] Team Providers + +------+ + | Care Plant Machinist Name | Role | Phone | + [...] + + | 03/10/ | Telephone | [facility] | Сергей Gaitan | Other (procedure | | 2017 | | [address] | MD Don [address] | cancellation) | | | | [place], | [address] [place] | | | | | [place] [address] | [place] [address] | | | | | [phone] | [phone] | | | | | | | [...] 2020 | Visit | | [address] [facility] | | | | | | [address] [place] | | | | | | [address] | | | | | | | | +--------+---------+ + + + documented as of this encounter Visit Diagnoses Not on filedocumented in this encounter"
--- OUTSIDE RECORDS SUMMARY | ~2019-06-25 | XMS | Encounter Summary ---
Demographics + + + | Address | [address] | | | [place] [address] | + + + | Home Phone [...] Team Providers + +------+ + | Care Historic Sites Registrar Name | Role | Phone | + [...] [address]in [address] | | | | | [place], [place] | [address] | | | | | [address] | | | | | | [phone] | | | +--------+ + + + [...] 2020 | Visit | | [address] [facility] | | | | | | [address] [place] | | | | | | [address] | | | | | | | [...] MV A Brock: 0.82 m/s MV Dec [place]: 7.33 | | | m/s2 MV DecT: [...] | | | TR Vmax: 3.14 m/s Entry Level Machine Operator: ZORA Authenticated by: | | [...] cmLVIDd: 5.42 cmLVPWd: 0.88 cmLVOT Area: 3.30 [id number] Diam: | | 2.05 cm%FS: 19.68 %EF(Teich): [...] (A-L): 25.38 ml/m2LAAs | | A2C: 14.99 [id number] A-L A2C: 42.95 mlLALs A2C: 4.44 cmLAAs A4C: 15.41 [id number] | | A-L A4C: 43.34 mlLALs A4C: 4.65 cmRAAs: 12.68 [id number] A-L: 35.28 mlRAESV MOD: | | 33.87 mlRALs: 3.87 cmTAPSE: 1.84 cmAV maxP.42 mmHgAV meanP.69 mmHgAV | | Vmax: 1.36 m/John Vmean: 0.90 m/John VTI: 23.16 cmAVA Vmax: 2.43 cm2AVA (VTI): | | 2.55 hs3ISVC (Vmax): 0.00 cm2/m2AVAI (VTI): 0.00 cm2/m2LVOT maxP.01 mmHgLVOT | | meanP.12 mmHgLVSI Dopp: 34.03 ml/m2LVSV Dopp: 59.22 mlLVOT Vmax: 1.00 | | m/sLVOT Vmean: 0.69 m/sLVOT VTI: 17.90 cmMV A Brock: 0.82 m/sMV Dec [place]: 7.33 | | m/s2MV DecT: 140.20 msMV E Brock: 1.02 m/sMV E/A Ratio: 1.25MV PHT: 40.65 msMVA By | | PHT: 5.41 yn5Esrbhs e': 0.03 m/sSeptal E/e': 29.00Lateral e': 0.04 m/sLateral | | E/e': 24.10RAP: 10 mmHgRVSP: 49.46 mmHgTR maxP.46 mmHgTR Vmax: 3.14 m/s | | Entry Level Machine Operator: ZORAAuthenticated by: Kiko BUTLER Date/Time: [...] A Brock: 0.82 m/s | |MV Dec [place]: 7.33 m/s2 | |MV DecT: 140.20 ms [...] |TR Vmax: 3.14 m/s | | | |Entry Level Machine Operator: DBS | |Authenticated by: TAMARA [...]
--- OUTSIDE RECORDS SUMMARY | ~2019-06-25 | XMS | Clinical Summary ---
Demographics + + + | Address | [address] | | | [place] [address] | + + + | Home Phone | | + + + | Preferred Language | Unknown | + + + | Marital Status | Unknown | + + + | Scientologist Affiliation | Unknown | + + + | Race | Unknown | + + + | Ethnic Group | Unknown | + + + Author + + + | Author | [employer] (Historical as of | | | 03-07-19) | + + + | Organization | [facility] [employer] (Historical as of | | | 03-07-19) [...] Team Providers + +------+ + | Care Rivet Machine Operator Name | Role | Phone [...] | CKD (chronic kidney disease), stage IV ([facility]) | 11/17/2018 | + + + | Anemia of chronic renal failure, stage 4 (severe) ([facility]) | 11/17/2018 | + + + | [...] +------+-------+ + | MEDICAID | [place] | [id number] | | | [address] | | | N | | | | [place] | | | [place] | | | | [address] | | | DIAMOND DIE [employer]ER | | | | | + +--------+ +------+-------+ + | /[facility] | YELLOW | [id number] | | | | | PLANS | [...] | Self | [birth year] | Home: | [address] | | | al/Fam | | 1954 | +1-000-000- | [place] | | | jeni | | | [birth year] | [address] | + +--------+ +--------+ + +
--- OUTSIDE RECORDS SUMMARY | ~2019-06-25 | XMS | Encounter Summary ---
Demographics + + + | Address | [address] | | | [place] [address] | + + + | Home Phone [...] Team Providers + +------+ + | Care Sales Recruitment Specialist Name | Role | Phone | + +------+ + PCP | Unavailable | + +------+ + Encounter Details +--------+ + + + + | Date | Type | Department | Care Team | Description | +--------+ + + + + | 02/09/ | Hospital | [facility] | Ilan Pitts, | | | 1989 - | Encounter | MED CTR MED ONC | MD [address] | | | | | [address] [place] | [place], [place] | | | 02/12/ | | [place] [address] | [address] | | | 1989 | | [phone] | | | +--------+ + + + [...] 2020 | Visit | | [address] [facility] [place] | | | | | | [address] [place] | | | | | | [address] | | | | | | | | +--------+---------+ + + + documented as of this encounter Visit Diagnoses Not on filedocumented in this encounter"
--- OUTSIDE RECORDS SUMMARY | ~2019-06-25 | XMS | Encounter Summary ---
Demographics + + + | Address | [address] | | | [place] [address] | + + + | Home Phone [...] Team Providers + +------+ + | Care Anesthesiology Teacher Name | Role | Phone | + +------+ + | Nathalie Castorena | PCP | | + +------+ + Encounter Details +--------+ + + + + | Date | Type | Department | Care Team | Description | +--------+ + + + + | 06/24/ | Telephone | [facility] | James Pearce MD | | | 2019 | | NEPHROLOGY [place] | [address] [place] | | | | | [address] | [address] [place], [place] | | | | | [address] | [address] | | | | | [place], [place] | | | | | | [address] | | | | | | [phone] | | | +--------+ + + + [...] 2020 | Visit | | [address] [facility] | | | | | | [address] [place] | | | | | | [address] | | | | | | | | +--------+---------+ + + + documented as of this encounter Visit Diagnoses Not on filedocumented in this encounter"
--- OUTSIDE RECORDS SUMMARY | ~2019-06-25 | XMS | Encounter Summary ---
Demographics + + + | Address | [address] | | | [place] [address] | + + + | Home Phone [...] Providers + +------+ + | Care Metal Drawer Name | Role | Phone | + [...] + + | 11/14/ | Telephone | [facility] | Сергей Gaitan | Other (Testing, | | 2018 | | [facility] [address] | MD Don [address] | Labs) | | | | [place], | [address] [place] | | | | | [place] [address] | [place] [address] | | | | | [phone] | [phone] | | | | | | | [...] 2019 | Visit | | [address] [facility] [place] | | | | | | [address] [facility] [place] | | | | | | [address] | | | | | | | [...]
--- OUTSIDE RECORDS SUMMARY | ~2019-06-25 | XMS | Encounter Summary ---
Demographics + + + | Address | [address] | | | [place] [address] | + + + | Home Phone [...] Providers + +------+ + | Care Nursing Informatics Analyst Name | Role | Phone | + +------+ + | Nathalie Castorena | PCP | | + +------+ + Encounter Details +--------+ + + + + | Date | Type | Department | Care Team | Description | +--------+ + + + + | 06/22/ | Orders Only | [facility] | James Pearce MD | Essential (primary) | | 2019 | | NEPHROLOGY [place] | [address] [place] | hypertension | | | | [address] | [address] [place], [place] | (Primary Dx); Anemia | | | | [address] | [address] | of chronic renal | | | | [place], [place] | | failure, stage 4 | | | | [address] | | (severe) ([facility]); CKD | | | | [phone] | | (chronic kidney | | | [...] 2019 | Visit | | [address] [facility] [place] | | | | | | [address] [place], [place] | | | | | | [address] | | | | | | | [...]
--- OUTSIDE RECORDS SUMMARY | ~2019-06-25 | XMS | Encounter Summary ---
Demographics + + + | Address | [address] | | | [place] [address] | + + + | Home Phone [...] Providers + +------+ + | Care Manager Operating Name | Role | Phone | + [...] W | | | | | [place], | [address] [place] [address] [place] | | | | | [place] [address] | [place] [address] | | | | | [phone] | [phone] | | | | | | | [...] 2020 | Visit | | [address] [facility] | | | | | | [address] [place] | | | | | | [address] | | | | | | | [...]
--- OUTSIDE RECORDS SUMMARY | ~2019-06-25 | XMS | Encounter Summary ---
Demographics + + + | Address | [address] | | | [place] [address] | + + + | Home Phone | | + + + | Preferred Language | Unknown | + + + | Marital Status | | + + + | Latter-Day Affiliation | 1041 | + + + | Race | Unknown | + + + | Ethnic Group | Unknown | + + + Author + + + | Author | [facility] | | | and [place] | + + + | Organization | [facility] | | | [...] Team Providers + +------+ + | Care Hydraulic Auto Jack Mechanic Name | Role | Phone | + +------+ + | Nathalie Castorena | PCP | | + +------+ + Encounter Details +--------+ + + + + | Date | Type | Department | Care Team | Description | +--------+ + + + + | 03/10/ | Orders Only | [facility] | James Pearce MD | | | 2018 | | NEPHROLOGY [place] | [address] [place] | | | | | [address] | [address] [facility] [place] | | | | | [facility] [address] [address] | [address] | | | | | [place], [place] | | | | | | [address] | | | | | | [phone] | | | +--------+ + + + [...] [place] | | | | | | [address] | | | | | | | | +--------+---------+ + + + documented as of this encounter Visit Diagnoses Not on filedocumented in this encounter"
--- OUTSIDE RECORDS SUMMARY | ~2019-06-25 | XMS | Encounter Summary ---
Demographics + + + | Address | [address] | | | [place] [address] | + + + | Home Phone [...] Team Providers + +------+ + | Care Care Technician Name | Role | Phone | [...] + + | 11/14/ | Telephone | [facility] | Сергей Gaitan | Other (Testing, | | 2018 | | [facility] [address] | MD [address] | Labs) | | | | [place], | [address] [place] | | | | | [place] [address] | [place] [address] | | | | | [phone] | [phone] | | | | | | | [...] | [address] [facility] [place] | | | | | | [address] [facility] [place] | | | | | | [address] | | | | | | | [...] | | | | | | unspecified [place] type, | | | | | | [...] | | | | | | unspecified [place] type, | | | | | | [...] | | | | | | unspecified [place] type, | | | | | | [...] | + + | Myocardial infarction, unspecified [place] type, unspecified artery (HCC) | + + | Essential hypertension Unspecified essential hypertension | + + | Encounter for lipid screening for cardiovascular disease | + + documented in this encounter"
--- OUTSIDE RECORDS SUMMARY | ~2019-06-25 | XMS | Encounter Summary ---
Demographics + + + | Address | [address] | | | [place] [address] | + + + | Home Phone [...] Team Providers + +------+ + | Care Sole Leveler Machine Name | Role | Phone | + +------+ + | Nathalie Castorena | PCP | | + +------+ + Encounter Details +--------+ + + + + | Date | Type | Department | Care Team | Description | +--------+ + + + + | 06/22/ | Orders Only | [facility] | James Pearce MD | Essential (primary) | | 2019 | | NEPHROLOGY [place] | [address] [place] | hypertension | | | | [address] | [address] [place], [place] | (Primary Dx); Anemia | | | | [address] | [address] | of chronic renal | | | | [place], [place] | | failure, stage 4 | | | | [address] | | (severe) ([facility]); CKD | | | | [phone] | | (chronic kidney | | | [...] 2019 | Visit | | [address] [facility] [place] | | | | | | [address] [place], [place] | | | | | | [address] | | | | | | | [...]
--- OUTSIDE RECORDS SUMMARY | ~2019-06-25 | XMS | Encounter Summary ---
Demographics + + + | Address | [address] | | | [place] [address] | + + + | Home Phone | | + + + | Preferred Language | Unknown | + + + | Marital Status | | + + + | Sabianist Affiliation | 1041 | + + + | Race | Unknown | + + + | Ethnic Group | Unknown | + + + Author + + + | Author | [facility] | | | and [place] | + + + | Organization | [facility] | | | [...] Team Providers + +------+ + | Care Utility Tech Name | Role | Phone | + +------+ + | Bernadette Armendariz PA-C | PCP | | + +------+ + Encounter Details +--------+ + + + + | Date | Type | Department | Care Team | Description | +--------+ + + + + | 11/12/ | Orders Only | [facility] | Conversion | | | 2019 | | NEPHROLOGY [place] | Transaction, | | | | | [address] | Provider Unknown | | | | | [address] [place] | | | | | | [address] | (Fax) | | | | | [phone] | | | +--------+ + + + [...] 2020 | Visit | | [address] [facility] | | | | | | [address] [place], [place] | | | | | | [address] | | | | | | | [...]
--- OUTSIDE RECORDS SUMMARY | ~2019-06-25 | XMS | Encounter Summary ---
Demographics + + + | Address | [address] | | | [place] [address] | + + + | Home Phone [...] Team Providers + +------+ + | Care Retort Furnace Operator Name | Role | Phone | + +------+ + | Nathalie Castorena | PCP | | + +------+ + Encounter Details +--------+ + + + + | Date | Type | Department | Care Team | Description | +--------+ + + + + | 03/10/ | Orders Only | [facility] | James Pearce MD | | | 2018 | | NEPHROLOGY [place] | [address] [place] | | | | | [address] [place] | [address] [place], [place] | | | | | [address] [place], [place] | [address] | | | | | [address] | | | | | | [phone] | | | +--------+ + + + [...] Visit | | [address] [facility] | | | | | | [address] [place] | | | | | | [address] | | | | | | | | +--------+---------+ + + + documented as of this encounter Visit Diagnoses Not on filedocumented in this encounter"
--- OUTSIDE RECORDS SUMMARY | ~2019-06-25 | XMS | Encounter Summary ---
Demographics + + + | Address | [address] | | | [place] [address] | + + + | Home Phone [...] Team Providers + +------+ + | Care Wholesale Account Executive Name | Role | Phone | + [...] [address] | | | | | [address], | [address] [place] | | | | | [place] [address] | [place] [address] | | | | | [phone] | [phone] | | | | | | | [...] 2020 | [facility] | | [address] [facility] [place] | | | | | | [address] [place] | | | | | | [address] | | | | | | | [...]
--- OUTSIDE RECORDS SUMMARY | ~2019-06-25 | XMS | Encounter Summary ---
Demographics + + + | Address | [address] | | | [place] [address] | + + + | Home Phone [...] Team Providers + +------+ + | Care Shelter Case Manager Name | Role | Phone | + +------+ + | Bernadette Armendariz PA-C | PCP | | + +------+ + Encounter Details +--------+ + + + + | Date | Type | Department | Care Team | Description | +--------+ + + + + | 12/02/ | Hospital | [facility] | [facility], | Right sided weakness | | 2019 - | Encounter | [facility] | MD Edie Michaels | | | | | CLINICAL DECISION | [address] | | | 12/04/ | | [address] | [place] [address] | | | 2018 | | [place], [place] | [phone] | | | | | [address] | | | | | | [phone] | | | +--------+ + + + [...] 12/04/18808 Date of Service: 12/04/18804 Status: Signed Armature Tester: Toney Lowry MD (Physician) [facility] Service: Hospitalist Physician Discharge Summary Patient ID: Maria Ines Martin [id number] y.o. 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 All questions were answered. Condition at discharge: stable as dictated above Primary discharge diagnosis: Right-sided weakness and uncontrolled blood hypertension Disposition: *Home Follow up: [facility] [address] [place] [address] Dictation and technical consultant or software, [employer], used which may contain error for similar [...] (HCC) 08/05/2018 MIC (acute kidney injury) ([facility]) 08/08/2018 Asthma CAD (coronary artery disease) [...] diffusion-weighted imaging was obtained. MRA Brain: 3D cubx-xh-znsido MRA with MIP ref ormations. MRA neck: 2D qxjm-ak-tvzptv MRA with MIP reformations. FINDINGS: MRI Brain: [...] diffusion-weighted imaging was obtained. MRA Brain: 3D ajxj-rp-ngetcx MRA with MIP ref ormations. MRA neck: 2D jdio-ud-rxtbld MRA with MIP reformations. FINDINGS: MRI Brain: [...] 88.35 ml D-E Excursion: 1.83 cm E-F [place]: 0.07 m/s TAPSE: 2.80 cm HR: 74.10 [...] TV A Brock: 0.77 m/s TV Dec [place]: 2.83 m/s2 TV Dec Time: 277.60 ms TV E Brock: 0.78 m/s TV E/A Ratio: 1.01 Cremator: Authenticated by: JASON BUCIO MD Report Date/Time: [...] 12/04/181301 Date of Service: 12/04/181301 Status: Signed Armature Tester: Stephanie Calzada RN (Registered Nurse) Discharge instructions [...] 12/04/18539 Date of Service: 12/04/18539 Status: Signed Armature Tester: Nichelle Renee RN (Registered Nurse) Chart check complete onver federico Transaction, Provider Unknown - 12/04/2018 1:09 AM PDT Nurse Progress Note by Nichelle Renee RN at 12/04/18108 Author: Nichelle Renee RN Service: (none) Author Type: Registered Nurse Filed: 12/04/18109 Date of Service: 12/04/18108 Status: Signed Armature Tester: Nichelle Renee RN (Registered Nurse) Pt here [...] 1840 Date of Service: 12/03/188 Status: Signed Armature Tester: Francy Orantes RN (Registered Nurse) Chart check complete. Francy Orantes 12/03/18 6:39 PM onver federico Transaction, Provider Unknown - 12/03/2018 2:30 PM PDT Nurse Progress Note by Francy Orantes RN at 12/03/18 1430 Author: Francy Orantes RN Service: (none) Author Type: Registered Nurse Filed: 12/03/18 1431 Date of Service: 12/03/18 1430 Status: Signed Armature Tester: Francy Orantes RN (Registered Nurse) 135/65, holding additional norvac 5mg at this time. onver federico Transaction, Provider Unknown - 12/03/2018 1:17 PM PDT Case Management by Lisa Burns RN at 12/03/18 1317 Author: Lisa Burns RN Service: (none) Author Type: Registered Nurse Filed: 12/03/18 1328 Date of Service: 12/03/18 1317 Status: Addendum Armature Tester: Lisa Burns RN (Registered Nurse) Related Notes: [...] Martin Relationship to Patient spouse Phone number [phone] Mental Status Oriented Prior functional status independent Power of District Loss Prevention Manager No Anticipated Discharge Plan Post Acute Care Needs None at this time Plan communicated to patient/family Yes Resources Financial concerns No Transportation issues No Patient/Family concerns No Prescription Plan Yes Name of Pharmacy [facility] Previous home health equipment Yes ( walker) Vascular access device No Ostomy/Drains/Appliances No Anticipated Disposition Facility Type Home Met with patient and discussed discharge planning, Pt is a 63 y.o., female with vertigo and rt side weakness. Pt lives on the [facility] w/spouse and several other famil y members in a small house. Pt states, that she lost her main house of 28 yrs and was "disp laced" on the [facility]. She and her have been living with her sister and several other people. She claims she sleeps on the the floor and there is not much mobility to mov e around-she can not accommodate a walker in the current house. Pt claims, the [facility] is working on a new place but she did not want to talk about any of the plans for housing or why she was displaced from the original home. Patient's PCP is: [facility] Patient's insurance: Medicaid//[facility] Coverage concerns: none Medication coverage/concerns: none [...] Note by Francy Orantes RN at 12/03/18 1466 Author: Francy Orantes RN Service: (none) Author Type: Registered Nurse Filed: 12/03/18 9706 Date of Service: 12/03/181142 Status: Signed Armature Tester: Francy Orantes RN (Registered Nurse) Telephone order [...] 12/03/18844 Date of Service: 12/03/18844 Status: Signed Armature Tester: Francy Orantes RN (Registered Nurse) New order per Dr. Lowry to administer scheduled BP meds at this time. Toney Cornejo MD - 12/03/2018 8:31 AM PDTFormatting of this note might be different from the origi nal. Progress Notes by Toney Lowry MD at 12/03/18830 Author: Toney Lowry MD Service: (none) Author Type: Physician Filed: 12/03/18843 Date of Service: 12/03/18830 Status: Signed Armature Tester: Toney Lowry MD (Physician) [facility] Service: Hospitalist Progress Note Hospital Day: LOS: [...] above Code Status: Full Code Dictation and technical consultant or software, [email or web address], used which may contain error for similar [...] with long-term current use of insulin ([facility]) Non-ischemic cardiomyopathy (HCC) CKD (chronic kidney disease), stage IV (HCC) Anemia of chronic renal failure, stage 4 (severe) ([facility]) Secondary hyperparathyroidism (HCC) Visual changes [place] [facility] Past Medical History Diagnosis Date Acute renal failure ([facility]) 08/05/2018 MIC (acute kidney injury) ([facility]) 08/08/2018 Asthma CAD (coronary artery disease) CHF (congestive heart failure) ([facility]) CVA (cerebral vascular accident) ([facility]) HTN (hypertension) Hyperlipidemia Myocardial infarct (HCC) Type 2 diabetes mellitus ([facility]) HOME MEDICATIONS Prior to Admission medications [...] 0743 Date of Service: 12/03/18739 Status: Signed Armature Tester: Francy Orantes RN (Registered Nurse) Per Dr. [...] 0745 Date of Service: 12/03/18599 Status: Signed Armature Tester: Jael Ford RN (Registered Nurse) Chart check audit complete. onver federico Transaction, Provider Unknown - 12/03/2018 1:23 AM PDT Pharmacy Note by Tia Hodge RPH at 12/03/18122 Author: Tia Hodge RPH Service: Pharmacy Author Type: Pharmacist Filed: 12/03/18122 Date of Service: 12/03/18122 Status: Signed Armature Tester: Tia Hodge RPH (Pharmacist) Clinical Pharmacy Note: Renal Monitoring Height: 160 cm Weight: 88.5 kg Serum Creatinine: 2.07 mg/dL (12/02/18 at [facility]) Estimated creatinine clearance - Cockcroft-Gault CrCl: 30 [...] 2019 | Visit | | [address] [facility] | | | | | | [address] [place] | | | | | | [address] | | | | | | | [...] | | | Fingerstick | performed at [facility];[address] | | LAB | | | | [address];[place] | | | | | | [address] | | | | + + + [...] | | | Fingerstick | performed at [facility];[address] | | LAB | | | | [address];[place] | | | | | | [address] | | | | + + + [...] | | | Fingerstick | performed at [facility];[address] | | LAB | | | | [address];[place] | | | | | | [address] | | | | + + [...] | | | Fingerstick | performed at [facility];[address] | | LAB | | | | [address];[place], [place] | | | | | | [address] | | | | + + + [...] | | | Fingerstick | performed at [facility];[address] | | LAB | | | | [address];[place] | | | | | | [address] | | | | + + + [...] | | D-E Excursion: 1.83 cm E-F [place]: 0.07 m/s TAPSE: 2.80 cm | | [...] | | | 0.77 m/s TV Dec [place]: 2.83 m/s2 TV Dec Time: 277.60 ms TV | | | E Brock: 0.78 m/s TV E/A Ratio: 1.01 Cremator: | | | Authenticated by: JASON BUCIO [...] (A-L): 36.58 ml/m2LAAs A2C: 22.52 | | [id number] A-L A2C: 77.43 mlLALs A2C: 5.56 cmLAAs A4C: 20.32 [id number] A-L A4C: | | 62.81 mlLALs A4C: 5.70 cmRAAd: 13.50 ca2VJMSR A-L: 27.25 mlRAEDV MOD: 27.63 | | mlRALd: 5.67 cmAo Diam: 3.55 cmAV Cusp: 2.03 cmLA Diam: 4.21 cmLA/Ao: 1.18%FS: | | 40.81 %EDV(Teich): 123.91 mlEF(Teich): 71.30 %ESV(Teich): 35.55 mlIVSd: 1.73 | | cmIVSs: 2.32 cmLVIDd: 5.10 cmLVIDs: 3.01 cmLVPWd: 1.42 cmLVPWs: 1.66 | | cmSV(Teich): 88.35 mlD-E Excursion: 1.83 cmE-F [place]: 0.07 m/sTAPSE: 2.80 cmHR: | | 74.10 BPMAV maxP.59 mmHgAV meanP.44 mmHgAV Vmax: 1.46 m/John Vmean: | | 1.01 m/John VTI: 32.01 cmAVA Vmax: 2.68 cm2AVA (VTI): 2.67 wh4WVZZ Vmax: 0.00 | | cm2/m2AVAI (VTI): 0.00 cm2/m2LVCI Dopp: 3.23 l/bwsr5DNTC Dopp: 6.18 l/minHR: | | 72.25 BPMLVOT [...] | m/sTV A Brock: 0.77 m/sTV Dec [place]: 2.83 m/s2TV Dec Time: 277.60 msTV E Brock: 0.78 | | m/sTV E/A Ratio: 1.01 Cremator: ASAuthenticated by: [facility] | | Date/Time: 12-03-2018 14:17:6 IMPRESSION: 1. [...] | |D-E Excursion: 1.83 cm | |E-F [place]: 0.07 m/s | |TAPSE: 2.80 cm | [...] A Brock: 0.77 m/s | |TV Dec [place]: 2.83 m/s2 | |TV Dec Time: 277.60 ms | |TV E Brock: 0.78 m/s | |TV E/A Ratio: 1.01 | | | |Cremator: | |Authenticated by: JASON BUCIO MD | [...] | | | Basophils | performed at [facility];[address] | K/uL | LAB | | | | [address];[place] | | | | | | [address] | | | | + + + [...] EXTERNAL | | | | performed at [facility] | | LAB | | | | [address];[place] | | | | | | [address] | | | | + + + [...] | | | | | performed at [facility], [address] | | | | | | [address], | | | | | | [place] [address] | | | | + + + [...] | | | Direct | performed at [facility];[address] | | LAB | | | | [address];[place], [place] | | | | | | [address] | | | | + + + [...] | | | Cholesterol | performed at [facility], [address] | | LAB | | | , | [address], | | | | | Calculated, | [place] [address] | | | | | External | [...] | | | | | performed at [facility];[address] | | | | | | [facility];[place], [place] | | | | | | [address] | | | | + + + [...] | | | Fingerstick | performed at [facility];[address] | | LAB | | | | [address];[place], [place] | | | | | | [address] | | | | + + + [...] | | | Fingerstick | performed at [facility];[address] | | LAB | | | | [address];[place], [place] | | | | | | [address] | | | | + + + [...] obtained. | | | MRA Brain: 3D mdqh-rd-mgyaet MRA with MIP reformations. MRA neck: 2D | | | hxdk-jo-nawzgb MRA with MIP reformations. FINDINGS: MRI Brain: [...] imaging | | was obtained.MRA Brain: 3D zycq-wv-zopmei MRA with MIP reformations.MRA neck: 2D | | azjd-ck-ilzzqm MRA with MIP reformations.FINDINGS:MRI Brain:Brain: No restricted [...] obtained. | | | MRA Brain: 3D tyva-rv-shwgrd MRA with MIP reformations. MRA neck: 2D | | | khix-xp-khtmzd MRA with MIP reformations. FINDINGS: MRI Brain: [...] imaging | | was obtained.MRA Brain: 3D qnef-eo-lhigbw MRA with MIP reformations.MRA neck: 2D | | wqzo-gq-mpwvbn MRA with MIP reformations.FINDINGS:MRI Brain:Brain: No restricted [...] LAB | | | | performed at [facility], [address] | | | | | | [address], | | | | | | [place] [address] | | | | + + + [...] - 1.030 | EXTERNAL | | | [place] | | | LAB | | + [...] | | | Urine | performed at [facility], [address] | | LAB | | | | [address], | | | | | | [place] [address] | | | | + + + [...]
--- OUTSIDE RECORDS SUMMARY | ~2019-06-25 | XMS | Encounter Summary ---
Demographics + + + | Address | [address] | | | [place] [address] | + + + | Home Phone [...] Team Providers + +------+ + | Care Commercial Sales Consultant Name | Role | Phone | + +------+ + PCP | Unavailable | + +------+ + Encounter Details +--------+ + + + + | Date | Type | Department | Care Team | Description | +--------+ + + + + | 10/14/ | Hospital | [facility] | Cal Godinez, | | | 2000 | Encounter | MED CTR GENERIC OP | MD [address] [facility] | | | | | CONV DEPT [address] | [place], [place] | | | | | [place], | [address] | | | | | [place] [address] | | | | | | [phone] | | | +--------+ + + + [...] 2020 | Visit | | [address] [facility] | | | | | | [address] [place] | | | | | | [address] | | | | | | | | +--------+---------+ + + + documented as of this encounter Visit Diagnoses Not on filedocumented in this encounter"
--- OUTSIDE RECORDS SUMMARY | ~2019-06-25 | XMS | Encounter Summary ---
Demographics + + + | Address | [address] | | | [place] [address] | + + + | Home Phone [...] Team Providers + +------+ + | Care Sow Manager Name | Role | Phone | + +------+ + | Bernadette Armendariz PA-C | PCP | | + +------+ + Encounter Details +--------+ + + + + | Date | Type | Department | Care Team | Description | +--------+ + + + + | 03/18/ | Orders Only | [facility] | James Pearce MD | Essential (primary) | | 2019 | | NEPHROLOGY [place] | [address] [place] | hypertension | | | | [address] [place] | [address] [place], [place] | (Primary Dx); | | | | [address] [place], [place] | [address] | Secondary | | | | [address] | | hyperparathyroidism | | | | [phone] | | (HCC); CKD (chronic | | | | | | kidney disease), | | | | | | stage IV ([facility]); | | | | | | Anemia of chronic | | | | | | renal failure, stage | | | | | | 4 (severe) ([facility]); | | | | | | [...] | | | | | | [address] [place], [place] | | | | | | [address] | | | | | | | [...] | | | 4 (severe) ([facility]) | | + +------+--------+ + + [...]
--- OUTSIDE RECORDS SUMMARY | ~2019-06-25 | XMS | Clinical Summary ---
Demographics + + + | Address | [address] | | | [place] [address] | + + + | Home Phone | | + + + | Preferred Language | Unknown | + + + | Marital Status | | + + + | Spiritism Affiliation | Unknown | + + + [...] [place] | | | | | [address] | | + + + + + Care Team Providers + +------+ + | Care Senior Drafter Name | Role | Phone | + +------+ + PCP | Unavailable | + +------+ + Source Comments CHELY is fully live on both [facility] and [facility] InPatient.[facility] Allergies Not on File Medications [...]
--- OUTSIDE RECORDS SUMMARY | ~2019-06-25 | XMS | Encounter Summary ---
Demographics + + + | Address | [address] | | | [place] [address] | + + + | Home Phone | | + + + | Preferred Language | Unknown | + + + | Marital Status | | + + + | Restoration Affiliation | 1041 | + + + | Race | Unknown | + + + | Ethnic Group | Unknown | + + + Author + + + | Author | [facility] | | | and [place] | + + + | Organization | [facility] | | [...] Providers + +------+ + | Care Supervisor Plastics Name | Role | Phone | + [...] + + | 03/10/ | Telephone | [facility] | Сергей Gaitan | Other (procedure | | 2017 | | [address] | MD Don [address] | cancellation) | | | | [place], | [address] [place] | | | | | [place] [address] | [place] [address] | | | | | [phone] | [phone] | | | | | | | [...] [place] | | | | | | [address] | | | | | | | | +--------+---------+ + + + documented as of this encounter Visit Diagnoses Not on filedocumented in this encounter"
--- OUTSIDE RECORDS SUMMARY | ~2019-06-25 | XMS | Encounter Summary ---
Demographics + + + | Address | [address] | | | [place] [address] | + + + | Home Phone | | + + + | Preferred Language | Unknown | + + + | Marital Status | | + + + | Scientology Affiliation | 1041 | + + + | Race | Unknown | + + + | Ethnic Group | Unknown | + + + Author + + + | Author | [facility] | | | and [place] | + + + | Organization | [facility] | | [...] + +------+ + | Care Physical Therapy Aide Name | Role | Phone | + +------+ + PCP | Unavailable | + +------+ + Encounter Details +--------+ + + + + | Date | Type | Department | Care Team | Description | +--------+ + + + + | 02/09/ | Hospital | [facility] | Ilan Pitts, | | | 1989 - | Encounter | MED CTR MED ONC | MD [address] | | | | | [address] [place] | [place], [place] | | | 02/12/ | | [place] [address] | [address] | | | 1989 | | [phone] | | | +--------+ + + + [...] [place] | | | | | | [address] | | | | | | | | +--------+---------+ + + + documented as of this encounter Visit Diagnoses Not on filedocumented in this encounter"
--- OUTSIDE RECORDS SUMMARY | ~2019-06-25 | XMS | Encounter Summary ---
Demographics + + + | Address | [address] | | | [place] [address] | + + + | Home Phone [...] Team Providers + +------+ + | Care Parking Meter Mechanic Name | Role | Phone | + +------+ + | Bernadette Armendariz PA-C | PCP | | + +------+ + Encounter Details +--------+ + + + + | Date | Type | Department | Care Team | Description | +--------+ + + + + | 03/17/ | Orders Only | [facility] | James Pearce MD | Essential (primary) | | 2019 | | NEPHROLOGY [place] | [address] [place] | hypertension; | | | | [address] [place] | [address] [place], [place] | Chronic kidney | | | | [address] [place], [place] | [address] | disease, stage IV | | | | [address] | | (severe) ([facility]); | | | | [phone] | | Proteinuria; | | | | | | Secondary | | | | | | hyperparathyroidism | | | | | | of renal origin | | | | | | ([facility]); Vitamin D | | | [...] [address] [facility] [place] | | | | | | [address] [place], [place] | | | | | | [address] | | | | | | | [...]
--- OUTSIDE RECORDS SUMMARY | ~2019-06-25 | XMS | Encounter Summary ---
Demographics + + + | Address | [address] | | | [place] [address] | + + + | Home Phone [...] + +------+ + | Care Loft Worker Apprentice Name | Role | Phone | + +------+ + | Bernadette Armendariz PA-C | PCP | | + +------+ + Encounter Details +--------+ + + + + | Date | Type | Department | Care Team | Description | +--------+ + + + + | 08/04/ | Orders Only | [facility] | Brynn Crawford MD | | | 2019 | | CARDIOLOGY [place] | [address] | | | | | [address] | [place] [address] | | | | | [place], [place] | [phone] | | | | | [address] | | | | | | [phone] | | | +--------+ + + + [...] 2020 | Visit | | [address] [facility] | | | | | | [address] [place] | | | | | | [address] | | | | | | | [...]
--- OUTSIDE RECORDS SUMMARY | ~2019-06-25 | XMS | Encounter Summary ---
Demographics + + + | Address | [address] | | | [place] [address] | + + + | Home Phone [...] + + | Author | [facility] [employer] [facility] | + + + | Organization | [facility] [facility] | + + + | Address | Unknown | + + + | Phone | Unavailable | + + + Support + + + + + | Name | Relationship | Address | Phone | + + + + + | Angene Bill | ECON | [address] | | | | [place], [place] | | | | | [address] | | + + + + + Care Team Providers + +------+ + | Care Book Coverer Name | Role | Phone | [...] | | | | | livia | [place], [place] | | | | | | [address] | | | +--------+ + + + [...]
--- OUTSIDE RECORDS SUMMARY | ~2019-06-25 | XMS | Encounter Summary ---
Demographics + + + | Address | [address] | | | [place] [address] | + + + | Home Phone [...] Team Providers + +------+ + | Care Big 6 Dealer Name | Role | Phone | + +------+ + PCP | Unavailable | + +------+ + Encounter Details +--------+ + + + + | Date | Type | Department | Care Team | Description | +--------+ + + + + | 10/23/ | Hospital | [facility] | Cal Godinez, | | | 1998 | Encounter | MED CTR XRAY [address] | MD [address] [facility] | | | | | [place] | [place], [place] | | | | | [place] [address] | [address] | | | | | [phone] | | | +--------+ + + + [...] 2020 | Visit | | [address] [facility] | | | | | | [address] [place] | | | | | | [address] | | | | | | | | +--------+---------+ + + + documented as of this encounter Visit Diagnoses Not on filedocumented in this encounter"
--- OUTSIDE RECORDS SUMMARY | ~2019-06-25 | XMS | Encounter Summary ---
Demographics + + + | Address | [address] | | | [place] [address] | + + + | Home Phone [...] Team Providers + +------+ + | Care Meat Puller Name | Role | Phone | + +------+ + | Bernadette Armendariz PA-C | PCP | | + +------+ + Encounter Details +--------+ + + + + | Date | Type | Department | Care Team | Description | +--------+ + + + + | 03/11/ | Orders Only | [facility] | James Pearce MD | Essential | | 2019 | | NEPHROLOGY [place] | [address] [place] | hypertension | | | | [address] | [address] [place], [place] | (Primary Dx); Type [address] | | | | [address] [address] | [address] | diabetes mellitus | | | | [place], [place] | | with complication, | | | | [address] | | with long-term | | | | [phone] | | current use of | | [...] 2019 | Visit | | [address] [facility] [place] | | | | | | [address] [place], [place] | | | | | | [address] | | | | | | | [...] type | | | | | | ([facility]) | | + +------+--------+ + + documented [...]
--- OUTSIDE RECORDS SUMMARY | ~2019-06-25 | XMS | Encounter Summary ---
Demographics + + + | Address | [address] | | | [place] [address] | + + + | Home Phone [...] + +------+ + | Care Senior Qa Engineer Name | Role | Phone | [...] | | | failure, | [address] | | | | | unspecified | St [place] | [place], [place] | | | | | HF | [place], [place] | [address] Phone: | | | | | chronicity, | [address] | [phone] | | | | | unspecified | Phone: | Fax: | | | | | heart | [phone] | [phone] | | | | | failure type | Fax: | | | | | | ([facility]) | [phone] | | | | | | Coronary [...] | | | | | | | [place] or | | | | | | [...] | heart | NW | [address] | | | | | failure) | [place] | [address] [facility] | | | | | (HCC) | [address] | [facility] [place] | | | | | Procedures | [place], | [address] Phone: | | | | | 2 month | [place] | [phone] | | | | | follow up | [address] | Fax: | | | | | with | Phone: | [phone] | | | | | [place] | [phone] | | | | | | | Fax: | | | | | | | [phone] | | +--------+--------+ + + + + Encounter Details +--------+---------+ + + + | Date | Type | Department | Care Team | Description | +--------+---------+ + + + | 05/13/ | Office | [facility] | Сергей Gaitan | Congestive heart | | 2018 | Visit | CARDIOLOGY [address] | MD Don [address] | failure, unspecified | | | | [place], | [address] [place] | HF chronicity, | | | | [place] [address] | [place] [address] | unspecified heart | | | | [phone] | [phone] | failure type (HCC) | | | | | | (Primary Dx); | | | | | | Myocardial | | | | | | infarction, | | | | | | unspecified [place] type, | | | | | | [...] whether | | | | | | [place] or | | | | | | [...] Medical Record I previously reviewed records from [facility] for hospitalization,including H&P, Discharge Summary and [...] made to ensure accuracy; however, inadvertent computerized program paraprofessional errors may be pre sent. Electronically signed [...] [place] | | | | | | [address] | | | | | | | | +--------+---------+ + + + + + +--------+ + + | Name | Type | Priori | Associated Diagnoses | Order Schedule | | | | ty | | | + + +--------+ + + | External Referral to | Outpatient | Routin | Congestive heart | Ordered: 05/16/2018 | | [facility] | Referral | e | failure, unspecified | | | Cardiology | | | HF chronicity, | | | | | | unspecified heart | | | | | | failure type ([facility]) | | | | | | Coronary artery | | | | | | disease, angina | | | | | | presence | | | | | | unspecified, | | | | | | unspecified vessel | | | | | | or lesion type, | | | | | | unspecified whether | | | | | | [place] or | | | | | | transplanted heart | | + + +--------+ + + documented as of this encounter Visit Diagnoses + + | Diagnosis | + + | Congestive heart failure, unspecified HF chronicity, unspecified heart failure type | | ([facility]) - Primary | + + | Myocardial infarction, unspecified AK type, unspecified artery (HCC) | + + | Essential hypertension Unspecified essential hypertension | + + | Cerebrovascular accident (CVA), unspecified mechanism (HCC) | + + | Heart disease Heart disease, unspecified | + + | Coronary artery disease, angina presence unspecified, unspecified vessel or lesion | | type, unspecified whether [place] or transplanted heart | + + documented in this encounter
--- OUTSIDE RECORDS SUMMARY | ~2019-06-25 | XMS | Encounter Summary ---
Demographics + + + | Address | [address] | | | [place] [address] | + + + | Home Phone [...] Providers + +------+ + | Care Jewel Inspector Name | Role | Phone | + +------+ + | Bernadette Armendariz PA-C | PCP | | + +------+ + Encounter Details +--------+ + + + + | Date | Type | Department | Care Team | Description | +--------+ + + + + | 12/02/ | Emergency | [facility] | [facility], | | | 2019 - | | MEDICAL CENTER | MD [address] | | | | | EMERGENCY CENTER | [place]ae[place] | | | 12/03/ | | [address] | [place] [address] | | | 2018 | | [place], [place] | [phone] | | | | | [address] | | | | | | [phone] | | | +--------+ + + + [...] 2019 | Visit | | [address] [facility] | | | | | | [address] [place] | | | | | | [address] | | | | | | | | +--------+---------+ + + + documented as of this encounter Visit Diagnoses Not on filedocumented in this encounter"
--- OUTSIDE RECORDS SUMMARY | ~2019-06-25 | XMS | Encounter Summary ---
Demographics + + + | Address | [address] | | | [place] [address] | + + + | Home Phone [...] Team Providers + +------+ + | Care Studio Grip Name | Role | Phone | + [...] | Congestive | Сергей | [address] | | | | | heart | MD Don | [place], | | | | | failure, | [address] | [place] | | | | | unspecified | St [place] | [address] | | | | | HF | [place], [place] | Phone: | | | | | chronicity, | [address] | [phone] | | | | | unspecified | Phone: | Fax: | | | | | heart | [phone] | [phone] | | | | | failure type | Fax: | | | | | | (HCC) | [phone] | | | | | | Coronary [...] | | | | | | | ch[place] or | | | | | | | transplanted | | | | | | | heart | | | | | | | Procedures | | | | | | | ECHO | | | | | | | Complete [place] | | | | | | | ECHO HEART | | | | | | | XTHORACIC,[place] | | | | | | | MPLETE W | | | | | | | DOPPLER [place] | | | | | | | [...] [address] | | | | | [address] [place], | [address] [place] | | | | | [place] [address] | [place] [address] | | | | | [phone] | [phone] | | | | | | | [...] | | | | | | [address] [place], [place] | | | | | | [address] | | | | | | | [...] whether | | | | | | [place] or | | | | | | [...] or lesion | | type, unspecified whether [place] or transplanted heart | + + documented in this encounter"
--- OUTSIDE RECORDS SUMMARY | ~2019-06-25 | XMS | Encounter Summary ---
Demographics + + + | Address | [address] | | | [place] [address] | + + + | Home Phone [...] Team Providers + +------+ + | Care Guidance Director Name | Role | Phone | + +------+ + | Bernadette Armendariz PA-C | PCP | | + +------+ + Encounter Details +--------+ + + + + | Date | Type | Department | Care Team | Description | +--------+ + + + + | 12/02/ | Hospital | [facility] | [facility], | Right sided weakness | | 2019 - | Encounter | [facility] | MD Edie Michaels | | | | | CLINICAL DECISION | [address] | | | 12/04/ | | [address] | [place] [address] | | | 2018 | | [place], [place] | [phone] | | | | | [address] | | | | | | [phone] | | | +--------+ + + + [...] 12/04/18808 Date of Service: 12/04/18804 Status: Signed Motor And Controls Tester: Toney Lowry MD (Physician) Service: Hospitalist Physician Discharge Summary Patient ID: Maria Ines Martin [id number] y.o. 1955 Admit date: 12/02/2018 Discharge [...] disease and fol low-up outpatient with her governor assembler hydraulic and registered nurse cardiovascular icu. All questions were answered. 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 MRA Brain: 3D pqrw-ad-spddap MRA with MIP ref ormations. MRA neck: 2D iejm-hw-oruuod MRA with MIP reformations. FINDINGS: MRI Brain: [...] diffusion-weighted imaging was obtained. MRA Brain: 3D blsd-ge-wauziv MRA with MIP ref ormations. MRA neck: 2D yhpr-mi-xukjgn MRA with MIP reformations. FINDINGS: MRI Brain: [...] 88.35 ml D-E Excursion: 1.83 cm E-F Vance: 0.07 m/s TAPSE: 2.80 cm HR: 74.10 [...] TV A Brock: 0.77 m/s TV Dec Vance: 2.83 m/s2 TV Dec Time: 277.60 ms TV E Brock: 0.78 m/s TV E/A Ratio: 1.01 Tape Sewer: Authenticated by: JASON BUCIO MD Report Date/Time: [...] 12/04/181301 Date of Service: 12/04/181301 Status: Signed Motor And Controls Tester: Stephanie Calzada RN (Registered Nurse) Discharge [...] 12/04/18539 Date of Service: 12/04/18539 Status: Signed Motor And Controls Tester: Nichelle Renee RN (Registered Nurse) Chart check complete onver federico Transaction, Provider Unknown - 12/04/2018 1:09 AM PDT Nurse Progress Note by Nichelle Renee RN at 12/04/18108 Author: Nichelle Renee RN Service: (none) Author Type: Registered Nurse Filed: 12/04/18109 Date of Service: 12/04/18108 Status: Signed Motor And Controls Tester: Nichelle Renee RN (Registered Nurse) Pt [...] 1840 Date of Service: 12/03/188 Status: Signed Motor And Controls Tester: Francy Orantes RN (Registered Nurse) Chart check complete. Francy Orantes 12/03/18 6:39 PM onver federico Transaction, Provider Unknown - 12/03/2018 2:30 PM PDT Nurse Progress Note by Francy Orantes RN at 12/03/18 1430 Author: Francy Orantes RN Service: (none) Author Type: Registered Nurse Filed: 12/03/18 1431 Date of Service: 12/03/18 1430 Status: Signed Motor And Controls Tester: Francy Orantes RN (Registered Nurse) 135/65, holding additional norvac 5mg at this time. onver federico Transaction, Provider Unknown - 12/03/2018 1:17 PM PDT Case Management by Lisa Burns RN at 12/03/18 1317 Author: Lisa Burns RN Service: (none) Author Type: Registered Nurse Filed: 12/03/18 1328 Date of Service: 12/03/18 1317 Status: Addendum Motor And Controls Tester: Lisa Burns RN (Registered Nurse) Related [...] Martin Relationship to Patient spouse Phone number [phone] Mental Status Oriented Prior functional status independent Power of Physician Office Rep No Anticipated Discharge Plan Post Acute Care Needs None at this time Plan communicated to patient/family Yes Resources Financial concerns No Transportation issues No Patient/Family concerns No Prescription Plan Yes Name of Pharmacy [facility] Previous home health equipment Yes ( walker) Vascular access device No Ostomy/Drains/Appliances No Anticipated Disposition Facility Type Home Met with patient and discussed discharge planning, Pt is a 63 y.o., female with vertigo and rt side weakness. Pt lives on the [facility] w/spouse and several other famil y members in a small house. Pt states, that she lost her main house of 28 yrs and was "disp laced" on the [place]. She and her have been living with her sister and several other people. She claims she sleeps on the the floor and there is not much mobility to mov e around-she can not accommodate a walker in the current house. Pt claims, the [place] is working on a new place but she did not want to talk about any of the plans for housing or why she was displaced from the original home. Patient's PCP is: [facility] Patient's insurance: Medicaid//[facility] Coverage concerns: none Medication coverage/concerns: none [...] Note by Francy Orantes RN at 12/03/18 2685 Author: Francy Orantes RN Service: (none) Author Type: Registered Nurse Filed: 12/03/18 0616 Date of Service: 12/03/181142 Status: Signed Motor And Controls Tester: Francy Orantes RN (Registered Nurse) Telephone [...] 12/03/18844 Date of Service: 12/03/18844 Status: Signed Motor And Controls Tester: Francy Orantes RN (Registered Nurse) New order per Dr. Lowry to administer scheduled BP meds at this time. Toney Cornejo MD - 12/03/2018 8:31 AM PDTFormatting of this note might be different from the origi nal. 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, [employer], used which may contain error for similar [...] long-term current use of insulin ([facility]) Non-ischemic cardiomyopathy (HCC) CKD (chronic kidney disease), stage IV (HCC) Anemia of chronic renal failure, stage 4 (severe) ([facility]) Secondary hyperparathyroidism (HCC) Visual changes [place] [facility] Past Medical History Diagnosis Date Acute renal failure ([facility]) 08/05/2018 MIC (acute kidney injury) ([facility]) 08/08/2018 Asthma CAD (coronary artery disease) CHF (congestive heart failure) ([facility]) CVA (cerebral vascular accident) ([facility]) HTN (hypertension) Hyperlipidemia Myocardial infarct (HCC) Type 2 diabetes mellitus ([facility]) HOME MEDICATIONS Prior to Admission [...] 3 (three) times daily as needed for Bboo sea. Yes Historical Provider mometasone-formoterol (DULERA) 100-5 [...] 0743 Date of Service: 12/03/18739 Status: Signed Motor And Controls Tester: Francy Orantes RN (Registered Nurse) Per [...] 0745 Date of Service: 12/03/18599 Status: Signed Motor And Controls Tester: Jael Ford RN (Registered Nurse) Chart check audit complete. onver federico Transaction, Provider Unknown - 12/03/2018 1:23 AM PDT Pharmacy Note by Tia Hodge RPH at 12/03/18122 Author: Tia Hodge RPH Service: Pharmacy Author Type: Pharmacist Filed: 12/03/18122 Date of Service: 12/03/18122 Status: Signed Motor And Controls Tester: Tia Hodge RPH (Pharmacist) Clinical Pharmacy Note: Renal Monitoring Height: 160 cm Weight: 88.5 kg Serum Creatinine: 2.07 mg/dL (12/02/18 at [facility]) Estimated creatinine clearance - Cockcroft-Gault CrCl: 30 [...] [place] | | | | | | [address] | | | | | | | [...] | | | Fingerstick | performed at [facility];[address] | | LAB | | | | [address];[place] | | | | | | [address] | | | | + + + [...] | | | Fingerstick | performed at [facility];[address] | | LAB | | | | [place] [address];[place] | | | | | | [address] | | | | + + + [...] | | | Fingerstick | performed at [facility];[address] | | LAB | | | | [address];[place] | | | | | | [address] | | | | + + + [...] | | | Fingerstick | performed at [facility];[address] | | LAB | | | | [address];[place], [place] | | | | | | [address] | | | | + + + [...] | | | Fingerstick | performed at [facility];[address] | | LAB | | | | [address];[place] | | | | | | [address] | | | | + + + [...] | | D-E Excursion: 1.83 cm E-F Vance: 0.07 m/s TAPSE: 2.80 cm | | [...] | | | 0.77 m/s TV Dec Vance: 2.83 m/s2 TV Dec Time: 277.60 ms TV | | | E Brock: 0.78 m/s TV E/A Ratio: 1.01 Tape Sewer: | | | Authenticated by: JASON BUCIO [...] (A-L): 36.58 ml/m2LAAs A2C: 22.52 | | dk1PRIOG A-L A2C: 77.43 mlLALs A2C: 5.56 cmLAAs A4C: 20.32 nk3TSOOT A-L A4C: | | 62.81 mlLALs A4C: 5.70 cmRAAd: 13.50 uu9BVVXJ A-L: 27.25 mlRAEDV MOD: 27.63 | | mlRALd: 5.67 cmAo Diam: 3.55 cmAV Cusp: 2.03 cmLA Diam: 4.21 cmLA/Ao: 1.18%FS: | | 40.81 %EDV(Teich): 123.91 mlEF(Teich): 71.30 %ESV(Teich): 35.55 mlIVSd: 1.73 | | cmIVSs: 2.32 cmLVIDd: 5.10 cmLVIDs: 3.01 cmLVPWd: 1.42 cmLVPWs: 1.66 | | cmSV(Teich): 88.35 mlD-E Excursion: 1.83 cmE-F Vance: 0.07 m/sTAPSE: 2.80 cmHR: | | 74.10 BPMAV maxP.59 mmHgAV meanP.44 mmHgAV Vmax: 1.46 m/John Vmean: | | 1.01 m/John VTI: 32.01 cmAVA Vmax: 2.68 cm2AVA (VTI): 2.67 cb5ZLAJ Vmax: 0.00 | | cm2/m2AVAI (VTI): 0.00 cm2/m2LVCI Dopp: 3.23 l/jeev0EKVR Dopp: 6.18 l/minHR: | | 72.25 BPMLVOT [...] | m/sTV A Brock: 0.77 m/sTV Dec Vance: 2.83 m/s2TV Dec Time: 277.60 msTV E Brock: 0.78 | | m/sTV E/A Ratio: 1.01 Tape Sewer: ASAuthenticated by: JASON MANEveter[facility] administration [facility] | | Date/Time: 12-03-2018 14:17:6 [...] | |D-E Excursion: 1.83 cm | |E-F Vance: 0.07 m/s | |TAPSE: 2.80 cm | [...] A Brock: 0.77 m/s | |TV Dec Vance: 2.83 m/s2 | |TV Dec Time: 277.60 ms | |TV E Brock: 0.78 m/s | |TV E/A Ratio: 1.01 | | | |Tape Sewer: | |Authenticated by: JASON BUCIO MD | [...] | | | Basophils | performed at [facility];[address] | K/uL | LAB | | | | [address];[place] | | | | | | [address] | | | | + + + [...] EXTERNAL | | | | performed at [facility] | | LAB | | | | [place] [address];[place] | | | | | | [address] | | | | + + + [...] | | | | | [place] [address] | | | | + + + [...] | | | Direct | performed at [facility];[address] | | LAB | | | | [address];[place], [place] | | | | | | [address] | | | | + + + [...] | | | Cholesterol | performed at [facility], [address] | | LAB | | | , | [address], | | | | | Calculated, | [place] [address] | | | | | External | [...] | | | | | | [facility] traceable | | | | | | equation.Testing | | | | | | performed at [facility];[address] | | | | | | [facility];[place], [place] | | | | | | [address] | | | | + + + [...] | | | Fingerstick | performed at [facility];[address] | | LAB | | | | [address];[place], [place] | | | | | | [address] | | | | + + + [...] | | | Fingerstick | performed at [facility];[address] | | LAB | | | | [address];[place], [place] | | | | | | [address] | | | | + + + [...] obtained. | | | MRA Brain: 3D ksil-qi-udeynt MRA with MIP reformations. MRA neck: 2D | | | bpbd-iw-yahugr MRA with MIP reformations. FINDINGS: MRI Brain: [...] imaging | | was obtained.MRA Brain: 3D zkxc-de-rzvajy MRA with MIP reformations.MRA neck: 2D | | rarr-xu-laewvd MRA with MIP reformations.FINDINGS:MRI Brain:Brain: No restricted [...] obtained. | | | MRA Brain: 3D ilgg-id-nbjuke MRA with MIP reformations. MRA neck: 2D | | | fvtb-tc-fajtxa MRA with MIP reformations. FINDINGS: MRI Brain: [...] imaging | | was obtained.MRA Brain: 3D oypd-hi-flhure MRA with MIP reformations.MRA neck: 2D | | rywc-jb-hnnxsw MRA with MIP reformations.FINDINGS:MRI Brain:Brain: No restricted [...] | | | | | [place] [address] | | | | + + + [...] - 1.030 | EXTERNAL | | | [place] | | | LAB | | + [...] | | | | | [place] [address] | | | | + + + [...]
--- OUTSIDE RECORDS SUMMARY | ~2019-06-25 | XMS | Encounter Summary ---
Demographics + + + | Address | [address] | | | [place] [address] | + + + | Home Phone | | + + + | Preferred Language | Unknown | + + + | Marital Status | | + + + | Islam Affiliation | 1041 | + + + [...] | + + +---------+ + | Bryan aMrtin | ECON | Unknown | | + + +---------+ + Care Team Providers + +------+ + | Care Latin Dance Instructor Name | Role | Phone | + +------+ + | Bernadette Armendariz PA-C | PCP | | + +------+ + Encounter Details +--------+ + + + + | Date | Type | Department | Care Team | Description | +--------+ + + + + | 02/23/ | Orders Only | [facility] | Provider, | Essential (primary) | | 2018 | | SYSTEM GENERIC OP | MD [address] | hypertension; Type 2 | | | | CONVERSION [address] | [address] | diabetes mellitus | | | | [address] [place], [place] | [place] [address] | with complications | | | | [address] | | ([facility]); Acute kidney | | | | [phone] | | failure ([facility]); | | | | | | Chronic kidney | | | | | | disease, stage IV | | | | | | (severe) ([facility]); | | | | | | Proteinuria; | | | | | | Secondary | | | | | | hyperparathyroidism | | | | | | of renal origin | | | | | | ([facility]); Vitamin D | | | | [...] 2019 | Visit | | [address] [facility] [address] | | | | | | [address] [place], [place] | | | | | | [address] | | | | | | | [...] origin | | | | | | ([facility]) Vitamin D | | | | [...] origin | | | | | | ([facility]) Vitamin D | | | | [...] | | | | | | (severe) ([facility]) | | | | | | Proteinuria | | | | | | Secondary | | | | | | hyperparathyroidism | | | | | | of renal origin | | | | | | ([facility]) Vitamin D | | | | [...] | | | | | | (severe) ([facility]) | | | | | | Proteinuria | | | | | | Secondary | | | | | | hyperparathyroidism | | | | | | of renal origin | | | | | | ([facility]) Vitamin D | | | | [...]
--- OUTSIDE RECORDS SUMMARY | ~2019-06-25 | XMS | Encounter Summary ---
Demographics + + + | Address | [address] | | | [place] [address] | + + + | Home Phone [...] Team Providers + +------+ + | Care Records Management Manager Name | Role | Phone | + +------+ + | Bernadette Armendariz PA-C | PCP | | + +------+ + Encounter Details +--------+ + + + + | Date | Type | Department | Care Team | Description | +--------+ + + + + | 11/12/ | Orders Only | [facility] | James Pearce MD | | | 2019 | | NEPHROLOGY [place] | [address] [place] | | | | | [address] [place] | [address] [place], [place] | | | | | [address] [facility] [place] | [address] | | | | | [address] | | | | | | [phone] | | | +--------+ + + + [...] [place] | | | | | | [address] | | | | | | | [...] | | | LAB | | | [place] | | | | | + +---------+ [...]
--- OUTSIDE RECORDS SUMMARY | ~2019-06-25 | XMS | Encounter Summary ---
Demographics + + + | Address | [address] | | | [place] [address] | + + + | Home Phone [...] Team Providers + +------+ + | Care Optimization Engineer Name | Role | Phone | + +------+ + | Bernadette Armendariz PA-C | PCP | | + +------+ + Encounter Details +--------+---------+ + + + | Date | Type | Department | Care Team | Description | +--------+---------+ + + + | 03/16/ | Office | [facility] | James Pearce MD | CKD (chronic kidney | | 2019 | Visit | NEPHROLOGY [place] | [address] [facility] [address] [facility] | disease), stage IV | | | | [address] | [address] [place], [place] | ([facility]) (Primary Dx); | | | | [address] | [address] | Vitamin D | | | | [place], [place] | | deficiency; Anemia | | | | [address] | | of chronic renal | | | | [phone] | | failure, stage 4 | | | | | | (severe) (HCC); | | | | | | Secondary | | | | | | hyperparathyroidism | | | | | | ([facility]); 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 P M PDT documented in this encounter Progress Notes James Pearce MD - 03/16/2019 2:10 PM PDT Progress Notes by James Pearce MD at 11/17/18 8759 Author: James Pearce MD Service: (none) Author Type: Physician Filed: 11/17/18 3204 Encounter Date: 11/17/2018 Status: Signed Transmitter Engineer: James Peacre MD (Physician) Patient Active Problem List Diagnosis [...] LABIRON 82.2 (A) 11/12/2018 LABPROT 4.982 08/07/2018 [id number] 8.5 (A) 11/12/2018 Assessment: Ms. Martin is [...] RFP, CBC, Iron studies, Ferritin, intact PTH, 79-xubalnq-qxajgoo D befor e she comes back in 3 months. Thank you Colleague for the opportunity to see this patient in F/U today. Please do not hes itate to call me at any time with questions or concerns. Truly yours, James Pearce MD [facility] MARIA LUISA ERLINDA documented in this enco unter Plan of Treatment +--------+---------+ + + + | Date | Type | Specialty | Care Team | Description | +--------+---------+ + + + | 09/27/ | Office | Nephrology | James Pearce MD | | | 2019 | Visit | | [address] [facility] | | | | | | [address] [place], [place] | | | | | | [address] | | | | | | | [...]
--- OUTSIDE RECORDS SUMMARY | ~2019-06-25 | XMS | Encounter Summary ---
Demographics + + + | Address | [address] | | | [place] [address] | + + + | Home Phone [...] Team Providers + +------+ + | Care Community Planner Name | Role | Phone | [...] + + | 03/16/ | Documentati | [facility] | Luis, | Results (03/13/19) | | 2019 | on | NEPHROLOGY [place] | [facility] | | | | | [address] | Pharmacy Order Entry Technician | | | | | [facility] [address] | | | | | | [place], [place] | | | | | | [address] | | | | | | [phone] | | | +--------+ + + + [...] | | | | | [address] [place], [place] | | | | | | [address] | | | | | | | [...] 1.005 - 1.030 | | | | [place] | | | | | + + [...]
--- OUTSIDE RECORDS SUMMARY | ~2019-06-25 | XMS | Encounter Summary ---
Demographics + + + | Address | [address] | | | [place] [address] | + + + | Home Phone [...] Author | [facility] | | | and [place] | + [...] Team Providers + +------+ + | Care Stripping Cutter And Winder Name | Role | Phone | + +------+ + | Bernadette Armendariz PA-C | PCP | | + +------+ + Encounter Details +--------+ + + + + | Date | Type | Department | Care Team | Description | +--------+ + + + + | 11/12/ | Orders Only | [facility] | Conversion | | | 2019 | | NEPHROLOGY CAMI | Transaction, | | | | | [address] | Provider Unknown | | | | | [address] [place] | | | | | | [address] | (Fax) | | | | | [phone] | | | +--------+ + + + [...] 2020 | Visit | | [address] [facility] | | | | | | [address] [place], [place] | | | | | | [address] | | | | | | | [...]
--- OUTSIDE RECORDS SUMMARY | ~2019-06-25 | XMS | Encounter Summary ---
Demographics + + + | Address | [address] | | | [place] [address] | + + + | Home Phone [...] Providers + +------+ + | Care Supervisor Color Making Name | Role | Phone | + [...] + + | 06/22/ | Documentati | [facility] | Luis, | Results (06/17/19) | | 2019 | on | NEPHROLOGY [place] | [facility] | | | | | [address] | Hair Rooting Machine Operator | | | | | [address] [facility] [address] | | | | | | [place], [place] | | | | | | [address] | | | | | | [phone] | | | +--------+ + + + [...] 2019 | Visit | | [address] [facility] | | | | | | [address] [place], [place] | | | | | | [address] | | | | | | | [...]
--- OUTSIDE RECORDS SUMMARY | ~2019-06-25 | XMS | Clinical Summary ---
Demographics + + + | Address | [address] | | | [place] [address] | + + + | Home Phone [...] [address] | | | | | [address] | | + + + + + Care Team Providers + +------+ + | Care Mud Car Worker Name | Role | Phone | + +------+ + PCP | Unavailable | + +------+ + Source Comments CHELY is fully live on both [facility] and [facility] Allergies Not on File Medications Not [...]
--- OUTSIDE RECORDS SUMMARY | ~2019-06-25 | XMS | Encounter Summary ---
Demographics + + + | Address | [address] | | | [place] [address] | + + + | Home Phone [...] Team Providers + +------+ + | Care Dna Analyst Name | Role | Phone | + +------+ + | Bernadette Armendariz PA-C | PCP | | + +------+ + Encounter Details +--------+ + + + + | Date | Type | Department | Care Team | Description | +--------+ + + + + | 02/17/ | Abstract | [facility] | Сергей Gaitan | Congestive heart | | 2018 | | CARDIOLOGY [address] | MD Don [address] | failure, unspecified | | | | [place], | [address] [place] | HF chronicity, | | | | [place] [address] | [place] [address] | unspecified heart | | | | [phone] | [phone] | failure type (HCC) | | | [...] 2020 | Visit | | [address] [facility] | | | | | | [facility] | | | | | | [address] | | | | | | | [...]
--- OUTSIDE RECORDS SUMMARY | ~2019-06-25 | XMS | Encounter Summary ---
Demographics + + + | Address | [address] | | | [place] [address] | + + + | Home Phone [...] Team Providers + +------+ + | Care Tank Calibrator Name | Role | Phone | + [...] + + | 03/16/ | Documentati | [facility] | Luis, | Results (03/13/19) | | 2019 | on | NEPHROLOGY [place] | [facility] | | | | | [address] | Convenience Store Clerk | | | | | [facility] [address] | | | | | | [place], [place] | | | | | | [address] | | | | | | [phone] | | | +--------+ + + + [...] | | | | | | [address] [place], [place] | | | | | | [address] | | | | | | | [...] 1.005 - 1.030 | | | | [place] | | | | | + + [...]
--- OUTSIDE RECORDS SUMMARY | ~2019-06-25 | XMS | Encounter Summary ---
Demographics + + + | Address | [address] | | | [place] [address] | + + + | Home Phone [...] Phone | + + +---------+ + | Brayn Martin | ECON | Unknown | | + + +---------+ + | Sachin Dwyer | ECON | Unknown | | + + +---------+ + | Bryan Martin | ECON | Unknown | | + + +---------+ + Care Team Providers + +------+ + | Care Aircraft Navigator Name | Role | Phone | + [...] | | | failure, | [address] | | | | | unspecified | St [place] | [place], [place] | | | | | HF | [place], [place] | [address] Phone: | | | | | chronicity, | [id number] | [phone] | | | | | unspecified | Phone: | Fax: | | | | | heart | [phone] | [phone] | | | | | failure type | Fax: | | | | | | ([facility]) | [phone] | | | | | | Coronary [...] | | | | | | | [place] or | | | | | | [...] | Cardiology | Diagnoses | Kala, | [place], | | | | | CHF | Bernadette Shankar, | Сергей | | | | | (congestive | PA-C [address] | MD Don | | | | | heart | [address] | [address] | | | | | failure) | [place] | [facility] [place] | | | | | (HCC) | [address] | [facility], [place] | | | | | Procedures | [place], | [address] Phone: | | | | | 2 month | [place] | [phone] | | | | | follow up | [address] | Fax: | | | | | with | Phone: | [phone] | | | | | [place] | [phone] | | | | | | | Fax: | | | | | | | [phone] | | +--------+--------+ + + + + Encounter Details +--------+---------+ + + + | Date | Type | Department | Care Team | Description | +--------+---------+ + + + | 05/13/ | Office | [facility] | Сергей Gaitan | Congestive heart | | 2018 | Visit | CARDIOLOGY [address] | MD Don [address] | failure, unspecified | | | | [address] [place], | [address] [place] | HF chronicity, | | | | [place] [address] | [place] [address] | unspecified heart | | | | [phone] | [phone] | failure type (HCC) | | | [...] whether | | | | | | [place] or | | | | | | [...] Medical Record I previously reviewed records from [facility] for hospitalization,including H&P, Discharge Summary and [...] made to ensure accuracy; however, inadvertent computerized slot key person errors may be pre sent. Electronically signed by: Kyler Gaitan MD PhD FACC 05/13/2018 documented in t his encounter Plan of Treatment +--------+---------+ + + + | Date | Type | Specialty | Care Team | Description | +--------+---------+ + + + | 09/27/ | Office | Nephrology | James Pearce MD | | | 2019 | Visit | | [address] [facility] | | | | | | [address] [place] | | | | | | [address] | | | | | | | | +--------+---------+ + + + + + +--------+ + + | Name | Type | Priori | Associated Diagnoses | Order Schedule | | | | ty | | | + + +--------+ + + | External Referral to | Outpatient | Routin | Congestive heart | Ordered: 05/16/2018 | | [facility] | Referral | e | failure, unspecified | | | Cardiology | | | HF chronicity, | | | | | | unspecified heart | | | | | | failure type ([facility]) | | | | | | Coronary artery | | | | | | disease, angina | | | | | | presence | | | | | | unspecified, | | | | | | unspecified vessel | | | | | | or lesion type, | | | | | | unspecified whether | | | | | | [place] or | | | | | | transplanted heart | | + + +--------+ + + documented as of this encounter Visit Diagnoses + + | Diagnosis | + + | Congestive heart failure, unspecified HF chronicity, unspecified heart failure type | | ([facility]) - Primary | + + | Myocardial infarction, unspecified [place] type, unspecified artery (HCC) | + + | Essential hypertension Unspecified essential hypertension | + + | Cerebrovascular accident (CVA), unspecified mechanism (HCC) | + + | Heart disease Heart disease, unspecified | + + | Coronary artery disease, angina presence unspecified, unspecified vessel or lesion | | type, unspecified whether [place] or transplanted heart | + + documented in this encounter
[~2019-06-25 20:08] MED LIST changes: +VIBRAMYCIN100 MG PO
--- OUTSIDE RECORDS SUMMARY | 2019-06-25 20:12 | XMS ---
PreManage Notification: JOSE G COX Security Landscape Engineer Events No recent Security Events currently on file CRITERIA MET - [facility] - 2 Visits in 30 Days CARE PROVIDERS ADAMARIS MOSCOSO Physician City Mail Carrier: Surgical 04/21/2018-Current PHONE: Unknown BLAINE HA Nurse Practitioner 04/21/2019-Current PHONE: [phone] Name [facility] 04/21/2019-Current PHONE: [phone] Neo has no Care Guidelines for this patient. Care History Medical/Surgical 04/21/2018 [facility] - PATIENT HAS DALILA PROVIDER: - PLEASE REFER PATIENT TO [facility] FOR NON EMERGENT MEDICAL NEEDS. - IF PATIENT CALLS EARLY IN THE AM TO DALILA PATIENT CAN BE SEEN SAME DAY FOR ANY NON EMERGENT MEDICAL NEEDS. - DALILA CONTACT # [phone] - PATIENT HAS A LONG EXTENSIVE HX WITH METHAMPHETAMINE USAGE. - PHYSICIAN DISCRECTION- TOX SCREEN BEFORE TREATMENT. Care Recommendation: - USE EXTREME CAUTION IN GIVING NARCOTICS TO THIS PATIENT. - Avoid Discharge Narcotic prescriptions if at all possible. Please use clinical judgement. E.D. VISIT COUNT (12 MO.) 2 [facility] 11 MANJU Celestin TOTAL 13 NOTE: Visits indicate total known visits. ED/UCC VISIT TRACKING (12 MO.) 06/25/2019 20:09 [facility] [place] TYPE: Emergency COMPLAINT: - COUGH 06/03/2019 20:49 [facility] [place] TYPE: Emergency COMPLAINT: - SKIN PROBLEM DIAGNOSES: - Anemia, unspecified - Unspecified asthma, uncomplicated - Old myocardial infarction - Allergy status to other antibiotic agents status - Lower abdominal pain, unspecified - Heart failure, unspecified - senior living (current) use of insulin - Prsnl hx of TIA (TIA), and cereb infrc w/o resid deficits - senior living (current) use of aspirin - Unspecified kidney failure - 1 Type 2 diabetes mellitus without complications - vermin exterminator (current) use of inhaled steroids - Cellulitis of abdominal wall - Other computer terminal operator (current) drug therapy - Personal history of nicotine dependence 05/23/2019 09:18 [facility] [place] TYPE: Emergency COMPLAINT: - BACK PAIN, ABD PAIN DIAGNOSES: - Heart failure, unspecified - Prsnl hx of TIA (TIA), and cereb infrc w/o resid deficits - 1 Type 2 diabetes mellitus w diabetic chronic kidney disease - senior living (current) use of aspirin - Other computer terminal operator (current) drug therapy - Unspecified abdominal pain - Personal history of nicotine dependence - senior living (current) use of insulin - Chronic kidney disease, unspecified - Unspecified asthma, uncomplicated - Allergy status to other antibiotic agents status 04/21/2019 08:55 [facility] [place] TYPE: Emergency COMPLAINT: - BREATHING ISSUES DIAGNOSES: [...] unspecified - Chronic kidney disease, unspecified - vermin exterminator (current) use of insulin - Allergy status to other antibiotic agents status - Unspecified visual disturbance - Heart failure, unspecified - Syncope and collapse - Dizziness and giddiness - Unspecified asthma, uncomplicated - 1 Type 2 diabetes mellitus w diabetic chronic kidney disease - Old myocardial infarction - Prsnl hx of TIA (TIA), and cereb infrc w/o resid deficits 12/02/2018 00:00 [facility] TYPE: Emergency 12/02/2018 00:00 [facility] TYPE: Emergency DIAGNOSES: - Vision Distrubances 12/01/2018 16:06 [facility] [place] TYPE: Emergency COMPLAINT: - BLURRED VISION, RIGHT SIDED WEAKNESS DIAGNOSES: - senior living (current) use of insulin - Prsnl hx of TIA (TIA), and cereb infrc w/o resid deficits - Unspecified visual disturbance - Other visual disturbances - Other correction (current) drug therapy - Unspecified asthma, uncomplicated [...] and cereb infrc w/o resid deficits - senior living (current) use of insulin - Puncture wound without foreign body, right foot, init encntr - Personal history of nicotine dependence - 1 Type 2 diabetes mellitus without complications - Other correction (current) drug therapy - vermin exterminator (current) use of aspirin 10/01/2018 19:00 [facility] [place] TYPE: Emergency COMPLAINT: - ABD PAIN DIAGNOSES: - Left lower quadrant pain - Heart failure, unspecified - Old myocardial infarction - senior living (current) use of insulin - Unspecified asthma, uncomplicated - vermin exterminator (current) use of aspirin - 1 Type 2 diabetes mellitus without complications - Other computer terminal operator (current) drug therapy - Cellulitis of abdominal wall - Allergy status to oth drug/meds/biol subst status 09/09/2018 07:55 [facility] [place] TYPE: Emergency COMPLAINT: - COUGH DIAGNOSES: - Personal history of nicotine dependence - Allergy status to oth drug/meds/biol subst status - Cough - 1 Type 2 diabetes mellitus without complications - Pneumonia, unspecified organism - Other computer terminal operator (current) drug therapy - vermin exterminator (current) use of insulin - Chronic sinusitis, unspecified 08/21/2018 15:13 [facility] [place] TYPE: Emergency COMPLAINT: - DIFFICULTY BREATHING DIAGNOSES: - Old myocardial infarction - senior living (current) use of insulin - Other correction (current) drug therapy - Heart failure, unspecified [...] asthma, uncomplicated - Chest pain, unspecified - vermin exterminator (current) use of insulin - 1 Type 2 diabetes mellitus without complications - Allergy status to oth drug/meds/biol subst status - Other correction (current) drug therapy - Viral infection, unspecified INPATIENT VISIT TRACKING (12 MO.) [facility] TYPE: Observation DIAGNOSES: - Vision Distrubances - Weakness 08/05/2018 10:20 [facility] Jose Roberto SHEA TYPE: Cardiology DIAGNOSES: - Ischemic cardiomyopathy - Heart failure, unspecified - Athscl heart disease of [place] coronary artery w/o ang pctrs - Precordial pain [email or web address]
[2019-06-25] MEDS ORDERED: CLEOCIN HCL300 MG PO ×2 (20:28)
== END 2019-06-25 21:31 | disposition home or self-care (01) ==
LOC: ED 20:08
DX: J45.901 Unspecified asthma with (acute) exacerbation (principal); J20.9 Acute bronchitis, unspecified; I50.9 Heart failure, unspecified; E11.9 Type 2 diabetes mellitus without complications; I25.2 Old myocardial infarction; Z86.73 Personal history of transient ischemic attack (TIA), and cerebral infarction without residual deficits; Z87.891 Personal history of nicotine dependence; Z88.1 Allergy status to other antibiotic agents; Z79.899 Other long term (current) drug therapy; Z79.4 Long term (current) use of insulin; Z79.82 Long term (current) use of aspirin
CPT/HCPCS: 71046; 99283-25

== ENCOUNTER 2019-06-26 22:27 | Observation (INO) | payer OTHER ==
[~2019-06-26] VITALS: Ht 160 cm; Wt 92.6 kg
--- OUTSIDE RECORDS SUMMARY | ~2019-06-26 | XMS | Encounter Summary ---
Demographics + + + | Address | [address] | | | [place] [address] | + + + | Home Phone | | + + + | Preferred Language | Unknown | + + + | Marital Status | | + + + | Methodist Affiliation | 1041 | + + + | Race | Unknown | + + + | Ethnic Group | Unknown | + + + Author + + + | Author | [facility] | | | and [place] | + + + | Organization | [facility] | | | and [place] | + + + | Address | Unknown | + + + | Phone | Unavailable | + + + Support + + +---------+ + | Name | Relationship | Address | Phone | + + +---------+ + | Bryan Martin | ECON | Unknown | | + + +---------+ + | Sachin Dwyer | ECON | Unknown | | + + +---------+ + | Bryan Martin | ECON | Unknown | | + + +---------+ + Care Team Providers + +------+ + | Care Lithographic Artist Name | Role | Phone | + +------+ + | Bernadette Armendariz PA-C | PCP | | + +------+ + Reason for Visit + + + | Reason | Comments | + + + | Follow-up | | + + + Evaluate & Treat (Urgent) +--------+--------+ + + + + | Status | Reason | Specialty | Diagnoses / | Referred By | Referred To | | | | | Procedures | Contact | Contact | +--------+--------+ + + + + | Closed | | Cardiology | Diagnoses | [place], | [facility] | | | | | CHF | Bernadette H, | Cardiology | | | | | (congestive | PA-C [address] | [address] | | | | | heart | [place] | [place], | | | | | failure) | [place] | [place] | | | | | (HCC) | [address] | [address] | | | | | Procedures | [place], | Phone: | | | | | BUSINESS OPERATIONS ANALYST 02/11 > | [place] | [phone] | | | | | PENDING DOS | [address] | Fax: | | | | | | Phone: | [phone] | | | | | | [phone] | | | | | | | Fax: | | | | | | | [phone] | | +--------+--------+ + + + + Encounter Details +--------+---------+ + + + | Date | Type | Department | Care Team | Description | +--------+---------+ + + + | 03/03/ | Office | [facility] | Сергей Vasquez | Congestive heart | | 2017 | Visit | CARDIOLOGY [address] | MD [address] | failure, unspecified | | | | [place], | [address] [place] | HF chronicity, | | | | [place] [address] | [place] [address] | unspecified heart | | | | [phone] | [phone] | failure type (HCC) | | | | | | (Primary Dx); | | | | | | Myocardial | | | | | | infarction, | | | | | | unspecified [place] type, | | | | | | unspecified artery | | | | | | (HCC); | | | | | | Cerebrovascular | | | | | | accident (CVA), | | | | | | unspecified | | | | | | mechanism (HCC); | | | | | | Hypertension, | | | | | | unspecified type; | | | | | | Heart disease; | | | | | | Tobacco use | | | | | | disorder; Coronary | | | | | | artery disease, | | | | | | angina presence | | | | | | unspecified, | | | | | | unspecified vessel | | | | | | or lesion type, | | | | | | unspecified whether | | | | | | [place] or | | | | | | transplanted heart | +--------+---------+ + + + Social History + +-------+ +--------+ + | Tobacco Use | Types | Packs/Day | Years | Date | | | | | Used | | + +-------+ +--------+ + | Former Smoker | | | | Quit: 01/30/2018 | + +-------+ +--------+ + + +---+---+---+ | Smokeless Tobacco: | | | | | Never Used | | | | + +---+---+---+ + + +---------+ + | Alcohol Use | Drinks/Week | oz/Week | Comments | + + +---------+ + | No | | | | + + +---------+ + + + + | Sex Assigned at | Date Recorded | | | | + + + | Not on file | | + + + + + + + | Job Start Date | Occupation | Industry | + + + + | Not on file | Not on file | Not on file | + + + + + + + + | Travel History | Travel Start | Travel End | + + + + + + | No recent travel history available. | + + documented as of this encounter Last Filed Vital Signs + + + + + | Vital Sign | Reading | Time Taken | Comments | + + + + + | Blood Pressure | 144/78 | 03/03/2018 10:32 AM | | | | | PDT | | + + + + + | Pulse | 65 | 03/03/2018 10:32 AM | | | | | PDT | | + + + + + | Temperature | - | - | | + + + + + | Respiratory Rate | 18 | 03/03/2018 10:32 AM | | | | | PDT | | + + + + + | Oxygen Saturation | - | - | | + + + + + | Inhaled Oxygen | - | - | | | Concentration | | | | + + + + + | Weight | 78.2 kg (172 lb 6.4 | 03/03/2018 10:32 AM | | | | oz) | PDT | | + + + + + | Height | 160 cm (5' 3") | 03/03/2018 10:32 AM | | | | | PDT | | + + + + + | Body Mass Index | 30.54 | 03/03/2018 10:32 AM | | | | | PDT | | + + + + + documented in this encounter Patient Instructions Patient Instructions Lynn Rodgers RN - 03/03/2018 11:00 AM PDT Start lisinoril 10 mg daily Start atorvastatin 10 mg daily Blood test: Fasting- 12 hours prior to test, no food, no caffiene, water is ok Date Due: soon Where to go for labs: Lab of your choice, please see lab orders, take them with you to the lab. INSTRUCTIONS Maria Ines Martin 1955 Procedure: Left heart catheterization Day: Date: Check-in time: 1. [facility] (same-day surgery). You may be asked to check in up to 4 hours prior to your procedure to get extra IV fluids to help protect your kidneys . 2. Do not eat or drink anything after midnight prior to the procedure. 3. Take all of your regular medications including with a sip of water the morning of the pr ocedure 4. The procedure lasts approximately one hour, and you will have conscious sedation for the procedure which will help decrease pain and will make you groggy. 5. After the procedure you will remain either in recovery or same day surgery center for at least 2 hours, part of this time you may have to lie flat depending on the procedure. 6. Make sure you have a pick up and delivery driver to take you home. Your pick up and delivery driver will also need to sign you ou t, to take responsibility for you, so it can not be a taxi or transportation system, unless there is a caregiver with transportation. 7. Please call us with any questions or concerns at . If you need to cancel the procedure at the last minute, such as due to illness, and you are calling after regular office hours, call the main hospital line at and ask for nursing supervisor inspection and testing t o let them know you are cancelling . Follow up appointment in Cardiology: 2 months Provider: Kyler Vasquez MD Date: Check-in time: documented in this encounter Progress Notes Сергей Vasquez MD - 03/03/2018 11:00 AM PDTFormatting of this note might be differe nt from the original. PATIENT NAME: Maria Ines Martin : 1955: AGE: 63 y.o. REFERRED BY: Bernadette Armendariz PRIMARY CARE: Bernadette Armendariz PA-C CARDIOLOGY OFFICE VISIT Date of Service: 03/03/18 HISTORY OF PRESENT ILLNESS: Maria Ines Martin is a 63 y.o. female with a history of tobacco and methamphetamine use, poorly c ontrolled diabetes, systolic and diastolic heart failure, and possible CAD. She is being se en today for further consultation. She is referred by Bernadette Armendariz for further evaluation after recent hospitalization wh ere she was diagnosed with acute on chronic systolic and diastolic heart failure. Patient vianney as had a long-standing history of tobacco and methamphetamine use, and she states that she h as been smoking both since her teenage years nonstop, and only stopped both proximally one m onth ago. She states that she was doing meth nonstop and daily for years. But now she has been drug-free for over 30 days, and states that "I want to live" and compliant with medicat ions. She has not been taking aspirin because she was under the impression she should not. She has not been taking lisinopril but has been taking recently prescribed carvedilol. She denies noncompliance with diuretics, taking torsemide once a day and states that her weight at home fluctuates between 179 and 182 pounds. She denies any known history of myocardial infarction or previous coronary workup. She den ies orthopnea, PND, or lower extremity edema. MEDICAL, SURGICAL, AND PERSONAL HISTORY Past Medical History: Diagnosis Date Asthma CHF (congestive heart failure) (HCC) CVA (cerebral vascular accident) (HCC) Heart disease Hypertension Myocardial infarction (HCC) Type 2 diabetes mellitus (HCC) Past Surgical History: Procedure Laterality Date CYST REMOVAL Bilateral Breast History reviewed. No pertinent family history. No family status information on file. Social History Social History Marital status: Spouse name: N/A Number of children: N/A Years of education: N/A Social History Main Topics Smoking status: Former Smoker Quit date: 01/30/2018 Smokeless tobacco: Never Used Alcohol use No Drug use: Yes Types: Methamphetamines Comment: 34 days clean Sexual activity: Not Asked Other Topics Concern None Social History Narrative None CURRENT MEDICATIONS Current Outpatient Prescriptions Medication Sig Dispense Refill acetaminophen (TYLENOL) 325 mg tablet Take 650 mg by mouth every 4 hours as needed for Pain. carvedilol (COREG) 6.25 mg tablet Take 6.25 mg by mouth 2 times daily. doxycycline (MONODOX) 50 MG capsule Take 50 mg by mouth 2 times daily. hydrOXYzine pamoate (VISTARIL) 25 mg capsule Take 25 mg by mouth 3 times daily as neede d for Itching. insulin glargine (LANTUS) 100 units/mL injection (vial) Inject 25 Units under the skin nightly. melatonin 1 mg TABS Take 1 mg by mouth nightly as needed. torsemide (DEMADEX) 20 mg tablet Take 20 mg by mouth Daily. No current facility-administered medications for this visit. ALLERGIES Allergies Allergen Reactions Lisinopril Other (See Comments) Dizziness Quinine Other (See Comments) hallucinations ROS I have reviewed the Review of Systems form dated today and scanned into the media tab. OBJECTIVE: PHYSICAL EXAM BP 144/78 | Pulse 65 | Resp 18 | Ht 1.6 m (5' 3") | Wt 78.2 kg (172 lb 6.4 oz) | BMI 3 0.54 kg/m Physical Exam Constitutional: She is oriented to person, place, and time. She appears well-developed and well-nourished. HENT: Head: Normocephalic. Mouth/Throat: Abnormal dentition. Eyes: No scleral icterus. Neck: Normal carotid pulses and no JVD present. Carotid bruit is not present. Cardiovascular: Normal rate, regular rhythm, S1 normal, S2 normal, normal heart sounds and intact distal pulses. PMI is not displaced. Exam reveals no gallop and no midsystolic clic k. No murmur heard. Pulses: Carotid pulses are 2+ on the right side, and 2+ on the left side. Radial pulses are 2+ on the right side, and 2+ on the left side. Dorsalis pedis pulses are 1+ on the right side, and 1+ on the left side. Pulmonary/Chest: Effort normal and breath sounds normal. No accessory muscle usage. No resp iratory distress. She has no wheezes. She has no rhonchi. She has no rales. Abdominal: Soft. Normal aorta and bowel sounds are normal. She exhibits no abdominal bruit. There is no hepatosplenomegaly. There is no tenderness. Obese. Musculoskeletal: She exhibits no edema. Neurological: She is alert and oriented to person, place, and time. Gait normal. Skin: Skin is warm and dry. No cyanosis. Nails show no clubbing. Psychiatric: She has a normal mood and affect. Her mood appears not anxious. She does not e xhibit a depressed mood. Vitals reviewed. ECG: Reviewed by me today notable for normal sinus rhythm, heart rate 65, lateral T-wave a bnormalities consistent with ischemia, left axis deviation. Abnormal ECG. No significant c hange compared with ECG of 01/31/18. Abstract on 02/17/2018 Component Date Value Ref Range Status eGFR, External 01/31/2018 46 Final B-Type Naturetic Peptide, External 01/31/2018 1530 Final Neutrophils %, External 01/31/2018 64.5 Final Lymphocytes %, External 01/31/2018 27.1 Final Monocytes %, External 01/31/2018 4.8 Final Eosinophils %, External 01/31/2018 3.3 Final RBC, External 01/31/2018 4.35 Final MCV, External 01/31/2018 81 Final RDW, External 01/31/2018 14.1 Final Calcium, External 01/31/2018 8.5 Final Protein, Total, External 01/31/2018 7.5 Final Albumin, External 01/31/2018 2.6 Final Bilirubin, Total, External 01/31/2018 0.3 Final ALP, External 01/31/2018 99 Final AST, External 01/31/2018 16 Final ALT, External 01/31/2018 9 Final Troponin T, External 01/31/2018 <0.010 Final Glucose, External 01/31/2018 149 Final ANION GAP 01/31/2018 11 mmol/L Final Albumin/Globulin Ratio 01/31/2018 0.5 Final Bun/Creatinine 01/31/2018 24.4 Final Globulin 01/31/2018 4.9 Final MCH 01/31/2018 26.0 26.0 - 33.0 pg Final MCHC 01/31/2018 33.0 30.0 - 36.0 % Final BASOPHILS % 01/31/2018 0.3 1.0 % Final eGFR, External 01/27/2018 42 Final Neutrophils %, External 01/27/2018 61.8 Final Lymphocytes %, External 01/27/2018 28.9 Final Monocytes %, External 01/27/2018 5.0 Final Eosinophils %, External 01/27/2018 4.0 Final RBC, External 01/27/2018 3.77 Final MCV, External 01/27/2018 81 Final RDW, External 01/27/2018 13.8 Final Calcium, External 01/27/2018 8 Final Protein, Total, External 01/27/2018 7.2 Final Albumin, External 01/27/2018 2.5 Final Bilirubin, Total, External 01/27/2018 0.2 Final ALP, External 01/27/2018 109 Final AST, External 01/27/2018 10 Final ALT, External 01/27/2018 8 Final Troponin T, External 01/27/2018 <0.010 Final Glucose, External 01/27/2018 241 Final ANION GAP 01/27/2018 12 mmol/L Final Bun/Creatinine 01/27/2018 17.7 Final Globulin 01/27/2018 4.7 Final Albumin/Globulin Ratio 01/27/2018 0.5 Final HEALTH SYSTEM 01/27/2018 27.0 26.0 - 33.0 pg Final MCHC 01/27/2018 33.0 30.0 - 36.0 % Final BASOPHILS % 01/27/2018 0.3 1.0 % Final I reviewed records from [facility] for hospitalization,including H&P, Discharge [facility] and lab reports on 01/27/18 and 01/31/18. Echocardiogram January 2013 results reviewed by me with the patient today LVEF 40-45%, grade 2 diastolic dysfunction, mild MR and TR, RVSP 44-49 mmHg. ASSESSMENT: 1. Chronic systolic and diastolic heart failure - patient should undergo definitive evalua tion for occult CAD as a significant contributor to her cardiomyopathy given her numerous co ronary disease risk factors. Her ECG is abnormal at baseline and suggests lateral ischemia. She would benefit from left heart catheterization and coronary angiography and understands the indications for the procedure as well as relevant risks and benefits and agrees to proc eed. In terms of medical therapy, I have reviewed pathophysiology of heart failure and impo rtance of neurohormonal blockade with the patient today. She should continue on her current carvedilol dose and I will start her on lisinopril beginning at 10 mg daily. We will reche ck chemistry panel thereafter as well as BNP. We reviewed the importance of lifestyle and dietary modification including fluid intake as well as sodium intake and monitoring her dry weight regularly. 2. Diabetes mellitus - patient appears to have had frequent glucose readings in the 200s. I do not have access to her HbA1c. We discussed importance of improved diabetic control an d correlation with vascular inflammation. 3. Tobacco cessation - this was discussed at length with the patient today (> 5 minutes) a s well as continued abstinence from methamphetamine use. 4. Dyslipidemia - given patient's history of poorly controlled diabetes and suspected unde rlying CAD, she would benefit from empiric statin therapy. I will check a baseline fasting lipid profile and begin therapy with atorvastatin 10 mg daily. We will recheck LFTs within a few weeks. Her baseline is normal. PLAN: 1. Left heart catheterization and coronary angiography. 2. Continued tobacco cessation and abstinence from and amphetamines. 3. Additional therapy with lisinopril and atorvastatin. Otherwise continue current medica tions. Improve compliance reinforced. 4. Check fasting lipid profile, chemistry panel and BNP. 5. Lifestyle and dietary modification recommendations. 6. Improved diabetic control. 7. Follow-up visit in a few weeks. Portions of this report were transcribed using voice recognition software. Every effort wa s made to ensure accuracy; however, inadvertent computerized bone glue maker errors may be pre sent. Electronically signed by: Kyler Vasquez MD PhD [facility] 03/03/2018 documented in t his encounter Plan of Treatment +--------+---------+ + + + | Date | Type | Specialty | Care Team | Description | +--------+---------+ + + + | 09/27/ | Office | Nephrology | James Pearce MD | | | 2019 | Visit | | [address] [facility] | | | | | | [address] [place], [place] | | | | | | [address] | | | | | | | | +--------+---------+ + + + + +------+--------+ + + | Name | Type | Priori | Associated Diagnoses | Order Schedule | | | | ty | | | + +------+--------+ + + | Comprehensive | Lab | Routin | Congestive heart | Expected: | | Metabolic Panel | | e | failure, unspecified | 03/03/2018, Expires: | | | | | HF chronicity, | 03/03/2019 | | | | | unspecified heart | | | | | | failure type (HCC) | | | | | | Coronary artery | | | | | | disease, angina | | | | | | presence | | | | | | unspecified, | | | | | | unspecified vessel | | | | | | or lesion type, | | | | | | unspecified whether | | | | | | [place] or | | | | | | transplanted heart | | + +------+--------+ + + | Lipid Panel | Lab | Routin | Coronary artery | Expected: | | | | e | disease, angina | 03/03/2018, Expires: | | | | | presence | 03/03/2019 | | | | | unspecified, | | | | | | unspecified vessel | | | | | | or lesion type, | | | | | | unspecified whether | | | | | | [place] or | | | | | | transplanted heart | | + +------+--------+ + + | B Type Natriuretic | Lab | Routin | Congestive heart | Expected: | | Peptide | | e | failure, unspecified | 03/03/2018, Expires: | | | | | HF chronicity, | 03/03/2019 | | | | | unspecified heart | | | | | | failure type (HCC) | | | | | | Coronary artery | | | | | | disease, angina | | | | | | presence | | | | | | unspecified, | | | | | | unspecified vessel | | | | | | or lesion type, | | | | | | unspecified whether | | | | | | [place] or | | | | | | transplanted heart | | + +------+--------+ + + documented as of this encounter Procedures + +--------+ + + + | Procedure Name | Priori | Date/Time | Associated Diagnosis | Comments | | | ty | | | | + +--------+ + + + | ECG 12 LEAD | Routin | 03/03/2018 | Congestive heart | Results for this | | | e | 10:48 AM | failure, unspecified | procedure are in the | | | | PDT | HF chronicity, | results section. | | | | | unspecified heart | | | | | | failure type (HCC) | | + +--------+ + + + documented in this encounter Results ECG 12 lead (03/03/2018 10:48 AM PDT) + + + + + + | Component | Value | Ref Range | Performed | Pathologist | | | | | At | Signature | + + + + + + | VENTRICULAR | 65 | BPM | [facility] | | | RATE EKG | | | | | + + + + + + | ATRIAL RATE | 65 | BPM | [facility] | | + + + + + + | P-R | 178 | ms | [facility] | | | INTERVAL | | | | | + + + + + + | QRS | 86 | ms | [facility] | | | DURATION | | | | | + + + + + + | Q-T | 418 | ms | [facility] | | | INTERVAL | | | | | + + + + + + | Q-T | 434 | ms | [facility] | | | INTERVAL | | | | | | (CORRECTED) | | | | | + + + + + + | P WAVE AXIS | 40 | degrees | [facility] | | + + + + + + | QRS AXIS | -44 | degrees | [facility] | | + + + + + + | T AXIS | 107 | degrees | [facility] | | + + + + + + | INTERPRETAT | Normal sinus rhythmLeft | | [facility] | | | ION TEXT | axis deviationT wave | | | | | | abnormality, consider | | | | | | lateral ischemiaAbnormal | | | | | | ECGNo previous ECGs | | | | | | availableConfirmed by | | | | | | DON VASQUEZ MD | | | | | | ([id number]) on 03/04/2018 | | | | | | 7:18:13 AM | | | | + + + + + + + + | Specimen | + + | | + + + + + | Narrative | Performed At | + + + | | | + + + + +---------+ + + | Performing | Address | City/State/Zipcode | Phone Number | | Organization | | | | + +---------+ + + | [facility] | | | | + +---------+ + + documented in this encounter Visit Diagnoses + + | Diagnosis | + + | Congestive heart failure, unspecified HF chronicity, unspecified heart failure type | | (HCC) - Primary | + + | Myocardial infarction, unspecified MN type, unspecified artery (HCC) | + + | Cerebrovascular accident (CVA), unspecified mechanism (HCC) | + + | Hypertension, unspecified type | + + | Heart disease Heart disease, unspecified | + + | Tobacco use disorder | + + | Coronary artery disease, angina presence unspecified, unspecified vessel or lesion | | type, unspecified whether [place] or transplanted heart | + + documented in this encounter
--- OUTSIDE RECORDS SUMMARY | ~2019-06-26 | XMS | Encounter Summary ---
Demographics + + + | Address | [address] | | | [place] [address] | + + + | Home Phone | | + + + | Preferred Language | Unknown | + + + | Marital Status | | + + + | Alevism Affiliation | 1041 | + + + | Race | Unknown | + + + | Ethnic Group | Unknown | + + + Author + + + | Author | [facility] | | | and [place] | + + + | Organization | [facility] | | | and [...] Team Providers + +------+ + | Care Can Machine Operator Name | Role | Phone | + +------+ + | Bernadette Armendariz PA-C | PCP | | + +------+ + Reason for Visit +--------+ + | Reason | Comments | +--------+ + | Other | procedure cancellation | +--------+ + Encounter Details +--------+ + + + + | Date | Type | Department | Care Team | Description | +--------+ + + + + | 03/10/ | Telephone | [facility] | Сергей Gaitan | Other (procedure | | 2017 | | [address] | MD [address] | cancellation) | | | | [place], | [address] [address] [place] | | | | | [place] [address] | [place] [address] | | | | | [phone] | [phone] | | | | | | | | +--------+ + + + [...] 2020 | Visit | | [address] [facility] | | | | | | [address] [place] | | | | | | [address] | | | | | | | | +--------+---------+ + + + documented as of this encounter Visit Diagnoses Not on filedocumented in this encounter"
--- OUTSIDE RECORDS SUMMARY | ~2019-06-26 | XMS | Encounter Summary ---
Demographics + + + | Address | [address] | | | [place] [address] | + + + | Home Phone | | + + + | Preferred Language | Unknown | + + + | Marital Status | | + + + | Anabaptism Affiliation | Unknown | + + + | Race | or | + + + | Ethnic Group | Not or | + + + Author + + + | Author | [facility] | + + + | Organization | [facility] | + + + | Address | Unknown | + + + | Phone | Unavailable | + + + Support + + + + + | Name | Relationship | Address | Phone | + + + + + | Angene Bill | ECON | [address] | | | | [address], [place] | | | | | [address] | | + + + + + Care Team Providers + +------+ + | Care Private Tutor Name | Role | Phone | + +------+ + PCP | Unavailable | + +------+ + Encounter Details +--------+ + + + + | Date | Type | Department | Care Team | Description | +--------+ + + + + | 10/06/ | ED Progress | Emergency Medicine | Report, Emergency | ED Progress Note | | 1996 | | [address] | Services | | | | Note-Transc | [address] | | | | | [place] | [place], [place] | | | | | | [address] | | | +--------+ + + + + Social History + +-------+ +--------+------+ | Tobacco Use | Types | Packs/Day | Years | Date | | | | | Used | | + +-------+ +--------+------+ | Never Assessed | | | | | + +-------+ +--------+------+ + + + | Sex Assigned at [...] as of this encounter Plan of Treatment Not on filedocumented as of this encounter Visit Diagnoses Not on filedocumented in this encounter"
--- OUTSIDE RECORDS SUMMARY | ~2019-06-26 | XMS | Encounter Summary ---
Demographics + + + | Address | [address] | | | [place] [address] | + + + | Home Phone | | + + + | Preferred Language | Unknown | + + + | Marital Status | | + + + | Pentecostal Affiliation | 1041 | + + + | Race | Unknown | + + + | Ethnic Group | Unknown | + + + Author + + + | Author | [facility] | | | and [place] | + + + | Organization | [facility] | | | and [place] | + + + | Address | Unknown | + + + | Phone | Unavailable | + + + Support + + +---------+ + | Name | Relationship | Address | Phone | + + +---------+ + | Bryan Martin | ECON | Unknown | | + + +---------+ + | Sachinirene Hebertjeanne | ECON | Unknown | | + + +---------+ + | Bryan Martin | ECON | Unknown | | + + +---------+ + Care Team Providers + +------+ + | Care Surgical Pathologist Name | Role | Phone | + +------+ + | Bernadette Armendariz PA-C | PCP | | + +------+ + Encounter Details +--------+ + + + + | Date | Type | Department | Care Team | Description | +--------+ + + + + | 08/04/ | Orders Only | [facility] | Brynn Crawford MD | | | 2019 | | [place]ARDIOLOGY [place] | [address] | | | | | [address] | [place] [address] | | | | | [place], [place] | [phone] | | | | | [address] | | | | | | [phone] | | | +--------+ + + + [...] 2020 | Visit | | [address] [facility] | | | | | | [address] [place] | | | | | | [address] | | | | | | | | +--------+---------+ + + + documented as of this encounter Procedures + +--------+ + + + | Procedure Name | Priori | Date/Time | Associated Diagnosis | Comments | | | ty | | | | + +--------+ + + + | BASIC METABOLIC | Routin | 08/04/2018 | | Results for this | | PANEL | e | 11:47 AM | | procedure are in the | | | | PST | | results section. | + +--------+ + + + documented in this encounter Results Basic Metabolic Panel (08/04/2018 11:47 AM PST) + + + + + + | Component | Value | Ref Range | Performed | Pathologist | | | | | At | Signature | + + + + + + | Glucose, | 148 (A)Comment: H | 65 - 99 mg/dL | EXTERNAL | | | Fasting | | | LAB | | + + + + + + | BUN | 60 (A)Comment: H | 8 - 25 mg/dL | EXTERNAL | | | | | | LAB | | + + + + + + | Creatinine | 2.30 (A)Comment: H | 0.70 - 1.30 | EXTERNAL | | | | | mg/dL | LAB | | + + + + + + | BUN/Creatin | 26.6 | 11.0 - 35.0 | EXTERNAL | | | ine Ratio | | | LAB | | + + + + + + | Calcium | 8.3 (A)Comment: L | 8.5 - 10.2 | EXTERNAL | | | | | mg/dL | LAB | | + + + + + + | Na | 137 | 135 - 145 | EXTERNAL | | | | | mmol/L | LAB | | + + + + + + | K | 6.4 (A)Comment: H | 3.5 - 5.3 | EXTERNAL | | | | | mmol/L | LAB | | + + + + + + | Cl | 109 (A)Comment: H | 97 - 107 mmol/L | EXTERNAL | | | | | | LAB | | + + + + + + | CO2 | 23 | 22 - 29 mmol/L | EXTERNAL | | | | | | LAB | | + + + + + + | Anion Gap | 21 | 14 - 22 mmol/L | EXTERNAL | | | | | | LAB | | + + + + + + | Estimated | 23Comment: L | mg/dL | EXTERNAL | | | GFR | | | LAB | | + + + + + + + + | Specimen | + + | Blood specimen | | (specimen) | + + + +---------+ + + | Performing | Address | City/State/Zipcode | Phone Number | | Organization | | | | + +---------+ + + | EXTERNAL LAB | | | | + +---------+ + + documented in this encounter Visit Diagnoses Not on filedocumented in this encounter"
--- OUTSIDE RECORDS SUMMARY | ~2019-06-26 | XMS | Encounter Summary ---
Demographics + + + | Address | [address] | | | [place] [address] | + + + | Home Phone | | + + + | Preferred Language | Unknown | + + + | Marital Status | | + + + | Congregation Affiliation | 1041 | + + + | Race | Unknown | + + + | Ethnic Group | Unknown | + + + Author + + + | Author | [facility] | | | and [place] | + + + | Organization | [facility] | | [...] Team Providers + +------+ + | Care Bistro Server Name | Role | Phone | + +------+ + | Nathalie Castorena | PCP | | + +------+ + Encounter Details +--------+---------+ + + + | Date | Type | Department | Care Team | Description | +--------+---------+ + + + | 06/22/ | Office | [facility] | James Pearce MD | CKD (chronic kidney | | 2019 | Visit | NEPHROLOGY [place] | [address] [facility] | disease), stage IV | | | | [address] | [address] [facility] [place] | ([facility]) (Primary Dx); | | | | [address] | [address] | Anemia of chronic | | | | [place], [place] | | renal failure, stage | | | | [address] | | 4 (severe) ([facility]); | | | | [phone] | | Essential (primary) | | | | | | hypertension; 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, with | | | | | | long-term current | | | | | | use of insulin | | | | | | ([facility]); Secondary | | | | | | hyperparathyroidism | | | | | | ([facility]); Nephrotic | | | | | | range proteinuria; | | | | | | Vitamin D deficiency | +--------+---------+ + + + Social History [...] + + + | Respiratory Rate | - | - | | + [...] in this encounter Patient Instructions Patient Instructions James Pearce MD - 06/22/2019 3:20 PM PSTDiscussions/Recommendations : I discussed today with Ms. Martin the meaning of her severe CKD and the interaction of that with her diabetes & hypertension. I stressed the importance of keeping her BG & BP controlled and avoiding getting dehydra michelle if we are to have a chance at helping preserve her renal function. She showed good unde rstanding. I gave her instructions on how to chart her blood pressure in the appropriate manner at home. She is to call us if they fall outside of the optimal provided range. She will bring her sphygmomanometer for validation once a year. She will strictly abide by a low potassium, low salt, low phosphorus diet. She will avoid all kinds of NSAIDs for analgesia. Also: I sent her for a repeat BMP in 1 week. I will not change any of her vasoactive meds today. She will report back to me her home BP readings in 2 weeks. At that time, I will decide whether any change to his vasoactive regimen is warranted. I started her on Aranesp 60 mcg subcutaneously every 4 weeks. She will F/U with your office regularly. She will have a RFP, CBC, Iron studies, Ferritin, iPTH before she comes back in 3 months . documented in this encounter Progress Notes James Pearce MD - 06/22/2019 3:20 PM PST Patient Active Problem List Diagnosis Date Noted POA Falls 12/02/2018 Unknown Right sided weakness 12/02/2018 Unknown Visual changes 12/02/2018 Unknown Anemia of chronic renal failure, stage 4 (severe) 11/17/2018 Unknown CKD (chronic kidney disease), stage IV 11/17/2018 Unknown Nephrotic range proteinuria 11/17/2018 Unknown Secondary hyperparathyroidism 11/17/2018 Unknown Vitamin D deficiency 11/17/2018 Unknown Acute renal failure superimposed on stage 4 chronic kidney disease 08/10/2018 Unknown Non-ischemic cardiomyopathy 08/10/2018 Unknown Precordial pain 07/18/2018 Unknown CHF (congestive heart failure) Unknown Type 2 diabetes mellitus with diabetic nephropathy, with long-term current use of insul in Unknown Asthma Unknown Heart disease Unknown Myocardial infarction Unknown CVA (cerebral vascular accident) Unknown Essential (primary) hypertension Unknown Dear Colleague: I saw Ms. Martin in F/U today. As you are familiar with her case, I will not state her past h istory in detail. Briefly, she is a 63 y.o. female patient with past history as delineated above. she is here to F/U on her severe CKD & its associated complications. Her sCr & eGFR were 1.8 & 29. The patient has history of hypertension since early 2017, Diabetes Mellitus since her mid 0's; her BG and BP control has been reportedly inadequate; she denies any history of prolo nged exposure to NSAIDs or recent exposure to known nephrotoxins; she denies any recurrent n ephrolithiasis or pyelonephritis; she tells me that she's had no history of urinary retentio n, gross hematuria or dysuria; she has mild stress incontinence symptoms. No symptoms of UTI ; she has 1 time nightly nocturia. No history of passing kidney stones. she has no foamy u rine either. Her baseline Creatinine is ~2.1 from 10/2018. There is no family history of ysabel l genetic diseases such as PKD. She says that she feels 'good ' today; she denies any tinnitus, headache, fever, chills, o r cough. She occasional blurred vision, dizziness. No nausea, vomiting, abdominal pain, claudia rrhea, melena, or hematochezia. She has constipation frequently. No chest pain, palpitation , loss of consciousness, orthopnea, paroxysmal nocturnal dyspnea, or leg edema. The following portions of the patient's history were reviewed and updated as appropriate: a llergies, current medications, past medical history, past social history, past surgical hist ory, family history and problem list. *I reviewed with her the records from her most recent ED visit, including the discharge sum neal. As in History of Present Illness & in Assessment. All the pertinent systems were reviewed a nd were otherwise negative. Current Outpatient Medications: acetaminophen (TYLENOL) 325 mg tablet, Take 650 mg by mouth every 4 hours as needed fo r Pain., Disp: , Rfl: albuterol 2.5 mg/3 mL nebulizer solution, Take 2.5 mg by nebulization every 6 (six) ho urs as needed for Wheezing., Disp: , Rfl: albuterol 90 mcg/puff inhaler, inhale 2 to 3 puffs by mouth UP TO every 2 hours if nee ded, Disp: , Rfl: 0 amLODIPine (NORVASC) 5 mg tablet, Take 1 tablet by mouth daily., Disp: , Rfl: ascorbic acid (VITAMIN C) 500 MG tablet, Take 1 tablet by mouth daily., Disp: , Rfl: atorvaSTATin (LIPITOR) 10 mg tablet, Take 1 tablet by mouth nightly., Disp: 90 tablet, Rfl: 3 B-D ULTRAFINE III SHORT PEN 31G X 8 MM, , Disp: , Rfl: carvedilol (COREG) 6.25 mg tablet, Take 6.25 mg by mouth 2 times daily., Disp: , Rfl: cholecalciferol (CHOLECALCIFEROL) 2000 units TABS, Take 2,000 Units by mouth daily., D isp: , Rfl: clindamycin (CLEOCIN) 300 MG capsule, , Disp: , Rfl: FEROSUL 325 (65 Fe) MG tablet, , Disp: , Rfl: fexofenadine (TIAN ALLERGY) 180 mg tablet, Take 180 mg by mouth as needed., Disp: , Rfl: fluticasone (FLONASE) 50 mcg/nasal spray, , Disp: , Rfl: hydrALAZINE (APRESOLINE) 25 mg tablet, , Disp: , Rfl: insulin glargine (LANTUS SOLOSTAR) 100 units/mL injection (pen), Inject 9 Units into t he skin every morning., Disp: , Rfl: losartan (COZAAR) 100 MG tablet, Take 1 tablet by mouth daily., Disp: , Rfl: melatonin 1 mg TABS, Take 1 mg by mouth nightly as needed., Disp: , Rfl: mometasone-formoterol (DULERA) 100-5 mcg/puff inhaler, Inhale 2 puffs into the lungs 2 (two) times daily., Disp: , Rfl: omeprazole (PRILOSEC) 20 mg capsule, Take 20 mg by mouth every morning before breakfas t., Disp: , Rfl: ondansetron (ZOFRAN ODT) 4 mg disintegrating tablet, , Disp: , Rfl: predniSONE (DELTASONE) 20 mg tablet, take 2 tablets by mouth once daily for 5 days, Di sp: , Rfl: 0 SM ASPIRIN ADULT LOW STRENGTH 81 MG EC tablet, Take 81 mg by mouth Daily., Disp: , Rfl : traMADol (ULTRAM) 50 mg tablet, Take 1 tablet by mouth every 6 (six) hours as needed., Disp: , Rfl: Physical Exam: BP 138/62 | Pulse 78 | Ht 1.6 m (5' 3") | Wt 88.4 kg (194 lb 12.8 oz) | BMI 34.51 kg/m General appearance: Pleasant, not in acute distress. Neck: Supple without tracheal deviation or jugular venous distension. Head and ENT: Head is atraumatic. The oropharynx is without erythema or thrush. Eyes: Anicteric. The extraocular muscle movements are normal. Lungs: Clear to auscultation bilaterally. There are no wheezes. Heart: Regular rate and rhythm without any rub, gallop. Faint systolic murmur at the USB. Abdominal exam: Obese. Soft and nontender with normal bowel sounds. Musculoskeletal: No costovertebral angle tenderness bilaterally. Extremities: Warm to touch with 1+ right, trace pitting left ankle edema. There is no cya nosis. Skin: There are no rashes, petechiae, or ecchymosis. Neurological: Awake, alert, and oriented to time, place, and person. Normal gross motor po wer. There is no asterixis. Psychiatric: The patient s behavior is normal. Judgment and thought content are normal. Lab Results Component Value Date HGB 8.48 (A) 06/17/2019 HGB 9.1 (L) 12/03/2018 NA 138 06/17/2019 K 5.5 (A) 06/17/2019 CL 111 (A) 06/17/2019 CO2 20 (A) 06/17/2019 BUN 32 (A) 06/17/2019 CREA 2.90 (A) 06/17/2019 CREA 2.50 (A) 03/13/2019 CALCIUM 8.0 (A) 06/17/2019 ALBUMIN 2.7 (A) 06/17/2019 EGFR 17.0 (A) 06/17/2019 PTH 156 (A) 06/17/2019 LABPROT 4.6 (L) 12/03/2018 LABPROT 4.982 08/07/2018 Old Labs: Lab Results Component Value Date BUN 32 (A) 11/12/2018 CREATININE 2.10 11/12/2018 EGFR 25 (A) 11/12/2018 NA 140 11/12/2018 K 4.1 11/12/2018 CL 111 (A) 11/12/2018 CO2 24 11/12/2018 CA 7.6 (L) 08/11/2018 PHOS 4.5 11/12/2018 MG 2.1 08/09/2018 ALB 3.1 (A) 11/12/2018 HGB 9.86 (A) 11/12/2018 URICACID 6.6 08/08/2018 WBC 4.80 11/12/2018 HCT 30.43 (A) 11/12/2018 FERRITIN 57.8 11/12/2018 LABIRON 82.2 (A) 11/12/2018 LABPROT 4.982 08/07/2018 [id number] 8.5 (A) 11/12/2018 Assessment: Ms. Martin is a 63 y.o. female patient with stage IV CKD on a background of longstanding hyper tension. The most likely pathology here is that of diabetic nephropathy +/- hypertensive nep hrosclerosis/arteriolosclerosis. RENAL FUNCTION: Lower vs 07/2018. She tells she does not really want to consider dialysis when the time comes. BLOOD PRESSURE: Reports good control at home BLOOD SUGAR: Reports it relatively controlled ELECTROLYTES: Mild hyperK, mild hyperPhos ANEMIA: Moderate; but her Fe stores are replete VITAMIN D: Severe deficiency PARATHYROID HORMONE: Mildly up URIC ACID: Ok PROTEINURIA: Severe: nephrotic range URINALYSIS: No UTI or hematuria VOLUME STATUS: Euvolumic. Discussions/Recommendations: I discussed today with Ms. Martin the meaning of her severe CKD and the interaction of that with her diabetes & hypertension. I stressed the importance of keeping her BG & BP controlled and avoiding getting dehydra michelle if we are to have a chance at helping preserve her renal function. She showed good unde rstanding. I gave her instructions on how to chart her blood pressure in the appropriate manner at home. She is to call us if they fall outside of the optimal provided range. She will bring her sphygmomanometer for validation once a year. She will strictly abide by a low potassium, low salt, low phosphorus diet. She will avoid all kinds of NSAIDs for analgesia. Also: I see no need to send her to the ED. I see no need for acute ASSISTANT MANAGER BILINGUAL. I sent her for a repeat BMP in 1 week. I will not change any of her vasoactive meds today. I am unable to restart her RAAS blockade at this time (current + history of hyperkalemia ) She will report back to me her home BP readings in 2 weeks. At that time, I will decide whether any change to his vasoactive regimen is warranted. I started her on Aranesp 60 mcg subcutaneously every 4 weeks. I kept her Vitamin D3 (Cholecalciferol) to 4,000 units twice a day. I kept her off her Ferrous Sulfate (replete Fe stores; has significant constipation) She will F/U with your office regularly. She will have a RFP, CBC, Iron studies, Ferritin, iPTH before she comes back in 3 months . Thank you Colleague for the opportunity to see this patient in F/U today. Please do not hes itate to call me at any time with questions or concerns. Truly yours, James Pearce MD FACP [facility] documented in this enco unter Plan of Treatment +--------+---------+ + + + | Date | Type | Specialty | Care Team | Description | +--------+---------+ + + + | 09/27/ | Office | Nephrology | James Pearce MD | | | 2019 | Visit | | [address] [facility] | | | | | | [address] [place], [place] | | | | | | [address] | | | | | | | | +--------+---------+ + + + documented as of this encounter Visit Diagnoses + + | Diagnosis | + + | CKD (chronic kidney disease), stage IV (HCC) - Primary Chronic kidney disease, Stage | | IV (severe) | + + | Anemia of chronic renal failure, stage 4 (severe) (HCC) | + + | Essential (primary) hypertension Unspecified essential hypertension | + + | Type 2 diabetes mellitus with diabetic nephropathy, with long-term current use of | | insulin (HCC) | + + | Secondary hyperparathyroidism (HCC) Secondary hyperparathyroidism (of renal origin) | + + | Nephrotic range proteinuria Proteinuria | + + | Vitamin D deficiency Unspecified vitamin D deficiency | + + documented in this encounter
--- OUTSIDE RECORDS SUMMARY | ~2019-06-26 | XMS | Encounter Summary ---
Demographics + + + | Address | [address] | | | [place] [address] | + + + | Home Phone | | + + + | Preferred Language | Unknown | + + + | Marital Status | | + + + | Voodoo Affiliation | Unknown | + + + | Race | or | + + + | Ethnic Group | Not or | + + + Author + + + | Author | [facility] | + + + | Organization | [facility] | + + + | Address | Unknown | + + + | Phone | Unavailable | + + + Support + + + + + | Name | Relationship | Address | Phone | + + + + + | Angene Bill | ECON | [address] | | | | [address], [place] | | | | | [address] | | + + + + + Care Team Providers + +------+ + | Care Equipment Driver Name | Role | Phone | + [...] | | | | | livia | [place], [place] | | | | | | [address] | | | +--------+ + + + [...]
--- OUTSIDE RECORDS SUMMARY | ~2019-06-26 | XMS | Encounter Summary ---
Demographics + + + | Address | [address] | | | [place] [address] | + + + | Home Phone | | + + + | Preferred Language | Unknown | + + + | Marital Status | | + + + | Congregational Affiliation | 1041 | + + + | Race | Unknown | + + + | Ethnic Group | Unknown | + + + Author + + + | Author | [facility] | | | and [place] | + + + | Organization | [facility] | | | [...] Team Providers + +------+ + | Care Customer Support Professional Name | Role | Phone | + [...] + + | 03/16/ | Documentati | [facility] | Luis, | Results (03/13/19) | | 2019 | on | NEPHROLOGY [place] | [facility] | | | | | [address] | [employer] | | | | | [facility] [address] | | | | | | [place], [place] | | | | | | [address] | | | | | | [phone] | | | +--------+ + + + [...] 2019 | Visit | | [address] [facility] | | | | | | [address] [place], [place] | | | | | | [address] | | | | | | | [...] | | DIFFERENTIAL | e | 8:08 AM | | procedure are in the | | | | PDT | | results section. | + +--------+ [...] Results CBC w/ Auto Differential (03/13/2019 8:08 AM PDT) + + + + + [...] 1.005 - 1.030 | | | | [place] | | | | | + + [...]
--- OUTSIDE RECORDS SUMMARY | ~2019-06-26 | XMS | Encounter Summary ---
Demographics + + + | Address | [address] | | | [place] [address] | + + + | Home Phone | | + + + | Preferred Language | Unknown | + + + | Marital Status | | + + + | Confucianist Affiliation | 1041 | + + + | Race | Unknown | + + + | Ethnic Group | Unknown | + + + Author + + + | Author | [facility] | | | and [place] | + + + | Organization | [facility] | | | [...] Team Providers + +------+ + | Care Railroad Brakeman Name | Role | Phone | + +------+ + | Bernadette Armendariz PA-C | PCP | | + +------+ + Reason for Referral Diagnostic/Screening (Routine) +--------+--------+ + + + + | Status | Reason | Specialty | Diagnoses / | Referred By | Referred To | | | | | Procedures | Contact | Contact | +--------+--------+ + + + + | Closed | | Radiology | Diagnoses | [place], | [facility] | | | | | Congestive | [place] | [address] | | | | | heart | [place] | [place], | | | | | failure, | [address] | [place] | | | | | unspecified | [place] | [address] | | | | | HF | [place], [place] | Phone: | | | | | chronicity, | [address] | [phone] | | | | | unspecified | Phone: | Fax: | | | | | heart | [phone] | [phone] | | | | | failure type | Fax: | | | | | | (HCC) | [phone] | | | | | | Coronary | | | | | | | artery | | | | | | | disease, | | | | | | | angina | | | | | | | presence | | | | | | | unspecified, | | | | | | | unspecified | | | | | | | vessel or | | | | | | | lesion type, | | | | | | | unspecified | | | | | | | whether | | | | | | | [place] or | | | | | | | transplanted | | | | | | | heart | | | | | | | Procedures | | | | | | | ECHO | | | | | | | Complete [place] | | | | | | | ECHO HEART | | | | | | | XTHORACIC,CO | | | | | | | MPLETE W | | | | | | | DOPPLER [place] | | | | | | | ECHO HEART | | | | | | | XTHORACIC,CO | | | | | | | MPLETE, W/O | | | | | | | DOPPLER | | | +--------+--------+ + + + + Reason for Visit +--------+ + | Reason | Comments | +--------+ + | Other | echo needed | +--------+ + Encounter Details +--------+ + + + + | Date | Type | Department | Care Team | Description | +--------+ + + + + | 08/06/ | Telephone | [facility] | [facility] Gaitan | Other (echo needed) | | 2019 | | CARDIOLOGY [address] | [place] [address] | | | | | [place], | [address] [place] | | | | | [place] [address] | [place] [address] | | | | | [phone] | [phone] | | | | | | | [...] 2020 | Visit | | [address] [facility] | | | | | | [address] [place], [place] | | | | | | [address] | | | | | | | | +--------+---------+ + + + + + +--------+ + + | Name | Type | Priori | Associated Diagnoses | Order Schedule | | | | ty | | | + + +--------+ + + | ECHO Complete | Echocardiog | Routin | Congestive heart | Expected: | | | anam | e | failure, unspecified | 08/06/2018, Expires: | | | | | HF chronicity, | 08/06/2019 | | | | | unspecified heart [...] whether | | | | | | [place] or | | | | | | transplanted heart | | + + +--------+ + + documented as of this encounter Visit Diagnoses + + | Diagnosis | + + | Congestive heart failure, unspecified HF chronicity, unspecified heart failure type | | (HCC) - Primary | + + | Coronary artery disease, angina presence unspecified, unspecified vessel or lesion | | type, unspecified whether [place] or transplanted heart | + + documented in this encounter"
--- OUTSIDE RECORDS SUMMARY | ~2019-06-26 | XMS | Encounter Summary ---
Demographics + + + | Address | [address] | | | [place] [address] | + + + | Home Phone | | + + + | Preferred Language | Unknown | + + + | Marital Status | | + + + | Latter Day Affiliation | 1041 | + + + [...] Team Providers + +------+ + | Care Type Bar And Segment Assembler Name | Role | Phone | + +------+ + | Bernadette Armendariz PA-C | PCP | | + +------+ + Reason for Visit +--------+ + | Reason | Comments | +--------+ + | Other | Testing, Labs | +--------+ + Encounter Details +--------+ + + + + | Date | Type | Department | Care Team | Description | +--------+ + + + + | 11/14/ | Telephone | [facility] | Сергей Gaitan | Other (Testing, | | 2018 | | [facility] [address] | MD Don [address] | Labs) | | | | [place], | [address] [place] [address] [place] | | | | | [place] [address] | [place] [address] | | | | | [phone] | [phone] | | | | | | | [...] 2019 | Visit | | [address] [facility] [place] | | | | | | [address] [facility] [place] | | | | | | [address] | | | | | | | | +--------+---------+ + + + + +------+--------+ + + | Name | Type | Priori | Associated Diagnoses | Order Schedule | | | | ty | | | + +------+--------+ + + | Lipid Panel | Lab | Routin | Chronic combined | Expected: | | | | e | systolic and | 11/14/2018, Expires: | | | | | diastolic congestive | 11/14/2019 | | | | | heart failure (HCC) | | | | | | Myocardial | | | | | | infarction, | | | | | | unspecified [place] type, | | | | | | unspecified artery | | | | | | (HCC) Essential | | | | | | hypertension | | | | | | Encounter for lipid | | | | | | screening for | | | | | | cardiovascular | | | | | | disease | | + +------+--------+ + + | Comprehensive | Lab | Routin | Chronic combined | Expected: | | Metabolic Panel | | e | systolic and | 11/14/2018, Expires: | | | | | diastolic congestive | 11/14/2019 | | | | | heart failure (HCC) | | | | | | Myocardial | | | | | | infarction, | | | | | | unspecified [place] type, | | | | | | unspecified artery | | | | | | (HCC) Essential | | | | | | hypertension | | | | | | Encounter for lipid | | | | | | screening for | | | | | | cardiovascular | | | | | | disease | | + +------+--------+ + + | CBC with | Lab | Routin | Chronic combined | Expected: | | Differential | | e | systolic and | 11/14/2018, Expires: | | | | | diastolic congestive | 11/14/2019 | | | | | heart failure (HCC) | | | | | | Myocardial | | | | | | infarction, | | | | | | unspecified [place] type, | | | | | | unspecified artery | | | | | | (HCC) Essential | | | | | | hypertension | | | | | | Encounter for lipid | | | | | | screening for | | | | | | cardiovascular | | | | | | disease | | + +------+--------+ + + documented as of this encounter Visit Diagnoses + + | Diagnosis | + + | Chronic combined systolic and diastolic congestive heart failure (HCC) - Primary | | Chronic combined systolic and diastolic heart failure | + + | Myocardial infarction, unspecified [place] type, unspecified artery (HCC) | + + | Essential hypertension Unspecified essential hypertension | + + | Encounter for lipid screening for cardiovascular disease | + + documented in this encounter"
--- OUTSIDE RECORDS SUMMARY | ~2019-06-26 | XMS | Encounter Summary ---
Demographics + + + | Address | [address] | | | [place] [address] | + + + | Home Phone | | + + + | Preferred Language | Unknown | + + + | Marital Status | | + + + | Worship Affiliation | 1041 | + + + | Race | Unknown | + + + | Ethnic Group | Unknown | + + + Author + + + | Author | [facility] | | | and [place] | + + + | Organization | [facility] | | | and [...] Team Providers + +------+ + | Care Survival Specialist Name | Role | Phone | + +------+ + | Bernadette Armendariz PA-C | PCP | | + +------+ + Encounter Details +--------+ + + + + | Date | Type | Department | Care Team | Description | +--------+ + + + + | 03/11/ | Orders Only | [facility] | James Pearce MD | Essential | | 2019 | | NEPHROLOGY [place] | [address] [place] | hypertension | | | | [address] | [address] [place], [place] | (Primary Dx); Type 2 | | | | [address] | [address] | diabetes mellitus | | | | [place], [place] | | with complication, | | | | [address] | | with long-term | | | | [phone] | | current use of | | [...] (HCC) | +--------+ + + + + Social [...] 2019 | Visit | | [address] [facility] | | | | | | [address] [place], [place] | | | | | | [address] | | | | | | | | +--------+---------+ + + + + +------+--------+ + + | Name | Type | Priori | Associated Diagnoses | Order Schedule | | | | ty | | | + +------+--------+ + + | Misc Lab Referral | Lab | Routin | Essential | 1 Occurrences | | | | e | hypertension Type 2 | starting 03/11/2019 | | | | | diabetes mellitus | until 08/11/2019 | | | | | with complication, | | | | | | with long-term | | | | | | current use of | | | | | | insulin (HCC) Acute | | | | | | renal failure | | | | | | superimposed on | | | | | | stage 4 chronic | | | | | | kidney disease, | | | | | | unspecified acute | | | | | | renal failure type | | | | | | ([facility]) | | + +------+--------+ + + documented as of this encounter Visit Diagnoses + + | Diagnosis | + + | Essential hypertension - Primary Unspecified essential hypertension | + + | Type 2 diabetes mellitus with complication, with long-term current use of insulin | | (HCC) | + + | Acute renal failure superimposed on stage 4 chronic kidney disease, unspecified acute | | renal failure type (HCC) | + + documented in this encounter"
--- OUTSIDE RECORDS SUMMARY | ~2019-06-26 | XMS | Encounter Summary ---
Demographics + + + | Address | [address] | | | [place] [address] | + + + | Home Phone | | + + + | Preferred Language | Unknown | + + + | Marital Status | | + + + | Denominational Affiliation | 1041 | + + + | Race | Unknown | + + + | Ethnic Group | Unknown | + + + Author + + + | Author | [facility] | | | and [place] | + + + | Organization | [facility] | | | and [...] Team Providers + +------+ + | Care Casting Inspector Name | Role | Phone | + +------+ + | Bernadette Armendariz PA-C | PCP | | + +------+ + Encounter Details +--------+---------+ + + + | Date | Type | Department | Care Team | Description | +--------+---------+ + + + | 03/16/ | Office | [facility] | James Pearce MD | CKD (chronic kidney | | 2019 | Visit | NEPHROLOGY [place] | [address] [facility] [address] [facility] | disease), stage IV | | | | [address] | [address] [place], [place] | ([facility]) (Primary Dx); | | | | [address] | [address] | Vitamin D | | | | [place], [place] | | deficiency; Anemia | | | | [address] | | of chronic renal | | | | [phone] | | failure, stage 4 | | | | | | (severe) (HCC); | | | | | | Secondary | | | | | | hyperparathyroidism | | | | | | ([facility]); 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, with | | | | | | long-term current | | | | | | use of insulin | | | | | | ([facility]); Essential | | | | | | (primary) | | | | | | hypertension | +--------+---------+ + + + Social History [...] + | Blood Pressure | 158/62 | 03/16/2019 2:46 PM | | | | | PDT | | + + + + + | Pulse | 62 | 03/16/2019 2:46 PM | | | | | PDT | [...] | 86.9 kg (191 lb 8 | 03/16/2019 2:46 PM | | | | oz) | PDT | | + + + + + | Height | 160 cm (5' 3") | 03/16/2019 2:46 PM | | | | | PDT | | + + + + + | Body Mass Index | 33.92 | 03/16/2019 2:46 PM | | | | | PDT | | + + + + + documented in this encounter Patient Instructions Patient Instructions James Pearce MD - 03/16/2019 2:10 PM PDTDiscussions/Recommendations : I discussed today with Ms. Martin [...] strictly abide by a low potassium, low salt diet and will avoid all kinds of NS AIDs for analgesia. Also: I sent her for a repeat BMP in 1 week. I will not change any of her vasoactive meds today. She will report back to me her home BP readings in 1 week. At that time, I will decide w hether any change to his vasoactive regimen is warranted. I increased her Vitamin D3 (Cholecalciferol) to 4,000 units twice a day. I kept her off her Ferrous Sulfate (replete Fe stores; has significant constipation) No need for NICOLÁS at this time. She will F/U with your office regularly. She will have a RFP, CBC, Iron studies, Ferritin, intact PTH, 63-hhdtedz-vkjrpzy D befor e she comes back in 3 months. P M PDT documented in this encounter Progress Notes James Pearce MD - 03/16/2019 2:10 PM PDT Progress Notes by James Pearce MD at 11/17/18 [id number] Author: James Pearce MD Service: (none) Author Type: Physician Filed: 11/17/18 7148 Encounter Date: 11/17/2018 Status: Signed Correction Warden: James Pearce MD (Physician) Patient Active Problem List Diagnosis Precordial pain Essential hypertension Type 2 diabetes mellitus with complication, with long-term current use of insulin (HCC) Acute renal failure superimposed on stage 4 chronic kidney disease (HCC) Non-ischemic cardiomyopathy (HCC) Dear Colleague: I saw Ms. Martin in [...] early 2017, Diabetes Mellitus since her mid 3 0's; her BG and BP control has been reportedly inadequate; she denies any history of prolo nged exposure to NSAIDs or recent exposure to known nephrotoxins; she denies any recurrent n ephrolithiasis or pyelonephritis; she tells me that she's had no history of urinary retentio n, gross hematuria or dysuria; she has mild stress incontinence symptoms. No symptoms of UTI ; she has 0 nightly nocturia. No history of passing kidney stones. she has no foamy urine either. her baseline Creatinine is ~2.1 from 10/2018. There is no family history of renal gen etic diseases such as PKD. she says that she feels 'good ' today; [...] her the records from her most recent hospitalization, including the discha rge summary. *I also reviewed with her the records received from your office; these were very informativ e. As in History of Present Illness & in Assessment. All the pertinent systems were reviewed a nd were otherwise negative. Current Outpatient Prescriptions Medication Sig Dispense Refill acetaminophen (TYLENOL) 325 MG tablet Take 325 mg by mouth every 6 (six) hours as neede d for Pain. albuterol (PROVENTIL) (2.5 MG/3ML) 0.083% nebulizer solution Take 2.5 mg by nebulizatio n every 6 (six) hours as needed for Wheezing. ascorbic acid (VITAMIN C) 500 MG tablet Take 1 tablet by mouth daily. 30 tablet 11 atorvastatin (LIPITOR) 10 MG tablet Take 10 mg by mouth nightly. carvedilol (COREG) 6.25 MG tablet Take 6.25 mg by mouth 2 (two) times daily with meals. cholecalciferol 2000 units TABS Take 2,000 Units by mouth daily. 90 tablet 2 doxycycline (ADOXA) 50 MG tablet Take 50 mg by mouth 2 (two) times daily. ferrous sulfate, 65 FE, 325 (65 FE) MG tablet Take 1 tablet by mouth daily with breakfa st. 30 tablet 2 fexofenadine (TIAN) 180 MG tablet Take 180 mg by mouth as needed. hydrALAZINE (APRESOLINE) 25 MG tablet Take 3 tablets by mouth 3 (three) times daily. 27 0 tablet 1 hydrOXYzine (ATARAX) 25 MG tablet Take 25 mg by mouth 3 (three) times daily as needed f or Itching. insulin glargine (LANTUS) 100 UNIT/ML injection Inject 25 Units into the skin nightly. melatonin 1 MG tablet Take 1 mg by mouth nightly as needed. mometasone-formoterol (DULERA) 100-5 MCG/ACT inhaler Inhale 2 puffs into the lungs 2 (t wo) times daily. omeprazole (PRILOSEC) 20 MG capsule Take 20 mg by mouth every morning before breakfast. ondansetron (ZOFRAN) 4 MG tablet Take 4 mg by mouth 3 (three) times daily as needed for Nausea. traMADol (ULTRAM) 50 MG tablet Take 1 tablet by mouth every 6 (six) hours as needed. 30 tablet 0 aspirin 81 MG EC tablet Take 81 mg by mouth daily. No current facility-administered medications for this visit. Physical Exam: BP 160/80 (BP Location: Left upper arm, Patient Position: Sitting) | Pulse 82 | Ht 1.6 m (5' 3") | Wt 88.7 kg (195 lb 9.6 oz) | SpO2 98% | BMI 34.65 kg/m General appearance: Pleasant, not in acute [...] tenderness bilaterally. Extremities: Warm to touch with trace pitting left ankle edema. There is no cyanosis. Skin: There are no rashes, petechiae, or ecchymosis. Neurological: Awake, alert, and oriented to time, place, and person. Normal gross motor po wer. There is no asterixis. Psychiatric: The patient s behavior is normal. Judgment and thought content are normal. Lab Results Component Value Date BUN 32 [...] LABIRON 82.2 (A) 11/12/2018 LABPROT 4.982 08/07/2018 [id number] 8.5 (A) 11/12/2018 Assessment: Ms. Martin is a 63 y.o. female patient with stage IV CKD on a background of longstanding hyper tension. The most likely pathology here is that of diabetic nephropathy +/- hypertensive nep hrosclerosis/arteriolosclerosis. RENAL FUNCTION: slightly lower vs 07/2018. She tells she does not want to consider dialys is when the time comes. BLOOD PRESSURE: Unknown control at home BLOOD SUGAR: Reports it relatively controlled ELECTROLYTES: okay ANEMIA: Mild; but her Fe stores are well repleted VITAMIN D: Severe deficiency PARATHYROID HORMONE: Mildly up URIC ACID: ok PROTEINURIA: Severe: nephrotic range URINALYSIS: No UTI [...] strictly abide by a low potassium, low salt diet and will avoid all kinds of NS AIDs for analgesia. Also: I sent her for a repeat BMP in 1 week. I will not change any of her vasoactive meds today. I am unable to restart her RAAS blockade at this time (current + history of hyperkalemia ) She will report back to me her home BP readings in 1 week. At that time, I will decide w hether any change to his vasoactive regimen is warranted. I increased her Vitamin D3 (Cholecalciferol) to 4,000 units twice a day. I kept her off her Ferrous Sulfate (replete Fe stores; has significant constipation) No need for NICOLÁS at this time. She will F/U with your office regularly. She will have a RFP, CBC, Iron studies, Ferritin, intact PTH, 32-jkvyuls-ngrvoaf D befor e she comes back in 3 months. Thank you Colleague for the opportunity to see this patient in F/U today. Please do not hes itate to call me at any time with questions or concerns. Truly yours, James Pearce MD [facility] ERLINDA documented in this enco unter Plan of Treatment +--------+---------+ + + + | Date | Type | Specialty | Care Team | Description | +--------+---------+ + + + | 09/27/ | Office | Nephrology | James Pearce MD | | | 2019 | Visit | | [address] [facility] | | | | | | [address] [place], [place] | | | | | | [address] | | | | | | | | +--------+---------+ + + + documented as of this encounter Procedures + +--------+ + + + | Procedure Name | Priori | Date/Time | Associated Diagnosis | Comments | | | ty | | | | + +--------+ + + + | LABS - EXTERNAL SCAN | | 03/16/2019 | | Results for this | | | | 12:00 AM | | procedure are in the | | | | PDT | | results section. | + +--------+ + + + documented in this encounter Results LABS - EXTERNAL SCAN (03/16/2019 12:00 AM PDT) + + + | Narrative | Performed At | + + + | Ordered by an | | | unspecified provider. | | + + + documented in this encounter Visit Diagnoses + + | Diagnosis | + + | CKD (chronic kidney disease), stage IV (HCC) - Primary Chronic kidney disease, Stage | | IV (severe) | + + | Vitamin D deficiency Unspecified vitamin D deficiency | + + | Anemia of chronic renal failure, stage 4 (severe) (HCC) | + + | Secondary hyperparathyroidism (HCC) Secondary hyperparathyroidism (of renal origin) | + + | Type 2 diabetes mellitus with diabetic nephropathy, with long-term current use of | | insulin (HCC) | + + | Essential (primary) hypertension Unspecified essential hypertension | + + documented in this encounter
--- OUTSIDE RECORDS SUMMARY | ~2019-06-26 | XMS | Encounter Summary ---
Demographics + + + | Address | [address] | | | [place] [address] | + + + | Home Phone | | + + + | Preferred Language | Unknown | + + + | Marital Status | | + + + | Confucianism Affiliation | 1041 | + + + | Race | Unknown | + + + | Ethnic Group | Unknown | + + + Author + + + | Author | [facility] | | | and [place] | + + + | Organization | [facility] | | | [...] Team Providers + +------+ + | Care Postulant Name | Role | Phone | + +------+ + | Bernadette Armendariz PA-C | PCP | | + +------+ + Encounter Details +--------+ + + + + | Date | Type | Department | Care Team | Description | +--------+ + + + + | 12/02/ | Emergency | [facility] | [facility], | | | 2019 - | | MEDICAL CENTER | [address] | | | | | EMERGENCY CENTER | Talita Saeed | | | 12/03/ | | [address] | [place] [address] | | | 2018 | | [place], [place] | [phone] | | | | | [address] | | | | | | [phone] | | | +--------+ + + + [...] + + documented as of this encounter Medications at Time of Discharge + + + +---------+ + + | Medication | Sig | Dispensed | Refills | Start | End Date | | | | | | Date | | + + + +---------+ + + | acetaminophen | Take 650 mg by mouth | | 0 | | | | (TYLENOL) 325 mg | every 4 hours as | | | | | | tablet | needed for Pain. | | | | | + + + +---------+ + + | albuterol 90 | inhale 2 to 3 puffs | | 0 | 09/09/19 | | | mcg/puff inhaler | by mouth UP TO every | | | 19 | | | | 2 hours if needed | | | | | + + + +---------+ + + | ascorbic acid | Take 1 tablet by | | 0 | 08/11/19 | | | (VITAMIN C) 500 MG | mouth daily. | | | 19 | 0 | | tablet | | | | | | + + + +---------+ + + | atorvaSTATin | Take 1 tablet by | 90 | 3 | 09/05/19 | | | (LIPITOR) 10 mg | mouth nightly. | tablet | | 19 | | | tablet | | | | | | + + + +---------+ + + | B-D ULTRAFINE III | | | 0 | 09/18/19 | | | SHORT PEN 31G X 8 MM | | | | 19 | | + + + +---------+ + + | carvedilol (COREG) | Take 6.25 mg by | | 0 | 02/27/20 | | | 6.25 mg tablet | mouth 2 times daily. | | | 18 | | + + + +---------+ + + | cholecalciferol | Take 2,000 Units by | | 0 | 08/11/19 | | | (CHOLECALCIFEROL) | mouth daily. | | | 19 | 0 | | 2000 units TABS | | | | | | + + + +---------+ + + | FEROSUL 325 (65 | | | 0 | 09/09/19 | | | Fe) MG tablet | | | | 19 | | + + + +---------+ + + | fexofenadine | Take 180 mg by mouth | | 0 | | | | (TIAN ALLERGY) | as needed. | | | | | | 180 mg tablet | | | | | | + + + +---------+ + + | fluticasone | | | 0 | 02/19/20 | | | (FLONASE) 50 | | | | 19 | | | mcg/nasal spray | | | | | | + + + +---------+ + + | hydrALAZINE | | | 0 | 03/20/20 | | | (APRESOLINE) 25 mg | | | | 19 | | | tablet | | | | | | + + + +---------+ + + | melatonin 1 mg | Take 1 mg by mouth | | 0 | | | | TABS | nightly as needed. | | | | | + + + +---------+ + + | ondansetron | | | 0 | 08/04/19 | | | (ZOFRAN ODT) 4 mg | | | | 19 | | | disintegrating | | | | | | | tablet | | | | | | + + + +---------+ + + | predniSONE | take 2 tablets by | | 0 | 09/09/19 | | | (DELTASONE) 20 mg | mouth once daily for | | | 19 | | | tablet | 5 days | | | | | + + + +---------+ + + | SM ASPIRIN ADULT | Take 81 mg by mouth | | 0 | 04/18/20 | | | LOW STRENGTH 81 MG | Daily. | | | 18 | | | EC tablet | | | | | | + + + +---------+ + + | traMADol (ULTRAM) | Take 1 tablet by | | 0 | 08/11/19 | | | 50 mg tablet | mouth every 6 (six) | | | 19 | | | | hours as needed. | | | | | + + + +---------+ + + | albuterol 2.5 mg/3 | | | 0 | 09/18/19 | | | mL nebulizer | | | | 19 | 9 | | solution | | | | | | + + + +---------+ + + | ascorbic acid | | | 0 | 09/09/19 | | | (VITAMIN C) 500 mg | | | | 19 | 9 | | tablet | | | | | | + + + +---------+ + + | azithromycin | take 2 tablets by | | 0 | 09/09/19 | | | (ZITHROMAX) 250 mg | mouth today then | | | 19 | 9 | | tablet | take 1 tablet DAILY | | | | | | | FOR 4 DAYS | | | | | + + + +---------+ + + | benzonatate | take 1 to 2 capsules | | 0 | 09/09/19 | | | (TESSALON) 100 mg | by mouth three | | | 19 | 9 | | capsule | times a day for | | | | | | | cough | | | | | + + + +---------+ + + | cephalexin | | | 0 | 11/11/19 | | | (KEFLEX) 500 mg | | | | 19 | 9 | | capsule | | | | | | + + + +---------+ + + | doxycycline | | | 0 | 11/13/19 | | | (ADOXA) 100 MG | | | | 19 | 9 | | tablet | | | | | | + + + +---------+ + + | doxycycline | Take 50 mg by mouth | | 0 | | | | (MONODOX) 50 MG | 2 times daily. | | | | 9 | | capsule | | | | | | + + + +---------+ + + | ferrous sulfate | Take 1 tablet by | | 0 | 08/11/19 | | | 325 mg tablet | mouth daily with | | | 19 | 9 | | | breakfast. | | | | | + + + +---------+ + + | hydrOXYzine | | | 0 | 11/13/19 | | | hydrochloride | | | | 19 | 9 | | (ATARAX) 25 mg | | | | | | | tablet | | | | | | + + + +---------+ + + | hydrOXYzine | Take 25 mg by mouth | | 0 | | | | pamoate (VISTARIL) | 3 times daily as | | | | 9 | | 25 mg capsule | needed for Itching. | | | | | + + + +---------+ + + | insulin glargine | Inject 25 Units | | 0 | | | | (LANTUS) 100 | under the skin | | | | 9 | | units/mL injection | nightly. | | | | | | (vial) | | | | | | + + + +---------+ + + | lisinopril | Take 1 tablet by | 90 | 1 | 03/03/20 | | | (PRINIVIL, ZESTRIL) | mouth Daily. | tablet | | 18 | 9 | | 10 mg tablet | | | | | | + + + +---------+ + + | omeprazole | | | 0 | 08/28/19 | | | (PRILOSEC) 20 mg | | | | 19 | 9 | | capsule | | | | | | + + + +---------+ + + | ondansetron | | | 0 | 11/13/19 | | | (ZOFRAN) 4 mg tablet | | | | 19 | 9 | + + + +---------+ + + | predniSONE | | | 0 | 09/18/19 | | | (DELTASONE) 10 mg | | | | 19 | 9 | | tablet | | | | | | + + + +---------+ + + | SILTUSSIN DM PALOMO | | | 0 | 08/13/19 | | | 100-10 MG/5ML liquid | | | | 19 | 9 | + + + +---------+ + + | torsemide | Take 10 mg by mouth | | 0 | 01/30/20 | | | (DEMADEX) 20 mg | Daily. | | | 18 | 9 | | tablet | | | | | | + + + +---------+ + + | torsemide | | | 0 | 10/03/19 | | | (DEMADEX) 5 mg | | | | 19 | 9 | | tablet | | | | | | + + + +---------+ + + | VELTASSA 16.8 g | | | 0 | 05/16/20 | | | packet | | | | 18 | 9 | + + + +---------+ + + documented as of this encounter Plan of Treatment +--------+---------+ + + + | Date | Type | Specialty | Care Team | Description | +--------+---------+ + + + | 09/27/ | Office | Nephrology | James Pearce MD | | | 2019 | Visit | | [address] [facility] | | | | | | [address] [place] | | | | | | [address] | | | | | | | | +--------+---------+ + + + documented as of this encounter Visit Diagnoses Not on filedocumented in this encounter"
--- OUTSIDE RECORDS SUMMARY | ~2019-06-26 | XMS | Encounter Summary ---
Demographics + + + | Address | [address] | | | [place] [address] | + + + | Home Phone | | + + + | Preferred Language | Unknown | + + + | Marital Status | | + + + | Orthodoxy Affiliation | 1041 | + + + | Race | Unknown | + + + | Ethnic Group | Unknown | + + + Author + + + | Author | [facility] | | | and [place] | + + + | Organization | [facility] | | | and [...] Team Providers + +------+ + | Care Solutions Consultant Name | Role | Phone | + +------+ + | Bernadette Armendariz PA-C | PCP | | + +------+ + Encounter Details +--------+ + + + + | Date | Type | Department | Care Team | Description | +--------+ + + + + | 03/16/ | Orders Only | [facility] | James Pearce MD | Essential (primary) | | 2019 | | NEPRHOLOGY [place] | [address] [place] | hypertension; Type 2 | | | | [address] | [address] [place], [place] | diabetes mellitus | | | | [address] [place], [place] | [address] | with complications | | | | [address] | | (HCC); Acute kidney | | | | [phone] | | failure (HCC) | +--------+ + + + + [...] 2019 | Visit | | [address] [facility] | | | | | | [address] [place], [place] | | | | | | [address] | | | | | | | | +--------+---------+ + + + + +------+--------+ + + | Name | Type | Priori | Associated Diagnoses | Order Schedule | | | | ty | | | + +------+--------+ + + | [employer] | Lab | Routin | Essential | Expected: | | Binding Capacity | | e | (primary) | 08/13/2018, Expires: | | | | | hypertension Type 2 | 08/11/2019 | | | | | diabetes mellitus | | | | | | with complications | | | | | | (HCC) Acute kidney | | | | | | failure (HCC) | | + +------+--------+ + + documented [...]
--- OUTSIDE RECORDS SUMMARY | ~2019-06-26 | XMS | Encounter Summary ---
Demographics + + + | Address | [address] | | | [place] [address] | + + + | Home Phone | | + + + | Preferred Language | Unknown | + + + | Marital Status | | + + + | Orthodox Affiliation | 1041 | + + + | Race | Unknown | + + + | Ethnic Group | Unknown | + + + Author + + + | Author | [facility] | | | and [place] | + + + | Organization | [facility] | | | [...] Team Providers + +------+ + | Care Precision Instrument Maker Name | Role | Phone | + +------+ + | Bernadette Armendariz PA-C | PCP | | + +------+ + Encounter Details +--------+ + + + + | Date | Type | Department | Care Team | Description | +--------+ + + + + | 01/28/ | Orders Only | [facility] | Ximena Arroyo V, | | | 2017 | | CONVERSION 888 | MD [address] | | | | | [place] | [place] | | | | | [place], [place] | [address] | | | | | [address] | | | | | | [phone] | | | +--------+ + + + [...] 2020 | Visit | | [address] [facility] | | | | | | [address] [place] | | | | | | [address] | | | | | | | | +--------+---------+ + + + documented as of this encounter Procedures + +--------+ + + + | Procedure Name | Priori | Date/Time | Associated Diagnosis | Comments | | | ty | | | | + +--------+ + + + | ECHO INTERPRETATION | Routin | 01/28/2018 | | Results for this | | OF OUTSIDE FILMS | e | 2:16 PM | | procedure are in the | | | | PDT | | results section. | + +--------+ + + + documented in this encounter Results ECHO Interpretation of Outside Films (01/28/2018 2:16 PM PDT) + + | Specimen | + + | | + + + + + | Impressions | Performed At | + + + | 1. Overall left ventricular systolic function is mild-moderately | | | impaired, with mild global hypokinesis and an EF between 40 - 45 %. | | | 2. Pseudonormal LV diastolic filling pattern, consistent with | | | elevated LA pressure and moderate dysfunction (Grade II). 3. The | | | right ventricle is normal in size and function. 4. Mild mitral and | | | tricuspid regurgitation are present. 5. There is mild pulmonary | | | hypertension. The right ventricular systolic pressure (pulmonary | | | artery systolic pressure), as measured by Doppler, is 44 - 49 mm Hg. | | + + + + + + | Narrative | Performed At | + + + | Patient Name: Maria Ines Martin Date of : 1955 | | | Performing Physician: TAMARA MAHONEY MD | | | | | | INDICATIONS CHF CONCLUSIONS 1. Overall | | | left ventricular systolic function is mild-moderately impaired, with | | | mild global hypokinesis and an EF between 40 - 45 %. 2. | | | Pseudonormal LV diastolic filling pattern, consistent with elevated LA | | | pressure and moderate dysfunction (Grade II). 3. The right ventricle | | | is normal in size and function. 4. Mild mitral and tricuspid | | | regurgitation are present. 5. There is mild pulmonary hypertension. | | | The right ventricular systolic pressure (pulmonary artery systolic | | | pressure), as measured by Doppler, is 44 - 49 mm Hg. FINDINGS | | | -------- ECG rhythm: Sinus rhythm. Study: A 2-dimensional | | | transthoracic echocardiogram with m-mode, spectral and color flow | | | Doppler was perfomed. Study: This was a technically adequate study. | | | Left Ventricle: Overall left ventricular systolic function is | | | mild-moderately impaired with, an EF between 40 - 45 %. Left | | | Ventricle: The left ventricle cavity size is normal. Left Ventricle: | | | Left ventricular wall thickness is normal. Left Ventricle: There is | | | mild global hypokinesis of LV contractility. Left Ventricle: | | | Pseudonormal LV diastolic filling pattern, consistent with elevated LA | | | pressure and moderate dysfunction (Grade II). Right Ventricle: The | | | right ventricle is normal in size and function. Left Atrium: The left | | | atrium is normal in size. Right Atrium: The right atrium is normal | | | in size. Aortic Valve: The aortic valve is trileaflet, and appears | | | anatomically normal. No aortic stenosis or regurgitation. Mitral | | | Valve: Normal appearing mitral valve. Mitral Valve: Mild mitral | | | regurgitation is present. Mitral Valve: No evidence of MVP. | | | Tricuspid Valve: The tricuspid valve appears structurally normal. | | | Tricuspid Valve: Mild tricuspid regurgitation present. Tricuspid | | | Valve: There is mild pulmonary hypertension. Tricuspid Valve: The | | | right ventricular systolic pressure (pulmonary artery systolic | | | pressure), as measured by Doppler, is 44 - 49 mm Hg. Pulmonic Valve: | | | Pulmonic valve appears structurally normal. Pulmonic Valve: Trace | | | pulmonic regurgitation. Pericardium: There is no pericardial | | | effusion. Pericardium: pleural effusion is seen. IVC/Hepatic Veins: | | | The inferior vena cava is normal in size and collapses > 50 % with | | | sniff, indicating normal central venous pressures. Aorta: The aortic | | | root, ascending aorta and aortic arch are normal. Mass: No mass | | | visualized Thrombus: No clot visualized Thrombus: No vegetation | | | visualized. Septum: No ASD observed. Septum: No VSD observed. | | | MEASUREMENTS Ao sinus: 3.[address] junct: | | | 2.77 cm IVC: 1.46 cm LA Diam: 3.99 cm EDV(Teich): 142.92 | | | ml IVSd: 1.04 cm LVIDd: 5.42 cm LVPWd: 0.88 cm LVOT Area: | | | 3.30 cm2 LVOT Diam: 2.05 cm %FS: 19.68 % EF(Teich): | | | 40.00 % ESV(Teich): 85.74 ml LVIDs: 4.35 cm SV(Teich): | | | 57.18 ml RVIDd: 2.91 cm LVEF MOD A2C: 35.70 % SV MOD A2C: | | | 55.31 ml LVEF MOD A4C: 47.89 % SV MOD A4C: 62.73 ml EF | | | Biplane: 40.43 % LVEDV MOD BP: 142.22 ml LVESV MOD BP: | | | 84.71 ml LVEDV MOD A2C: 154.92 ml LVLd A2C: 8.64 cm LVEDV MOD | | | A4C: 130.98 ml LVLd A4C: 8.65 cm LVESV MOD A2C: 99.61 ml | | | LVLs A2C: 7.82 cm LVESV MOD A4C: 68.24 ml LVLs A4C: 7.38 cm | | | LAESV(A-L): 44.16 ml LAESV Index (A-L): 25.38 ml/m2 LAAs | | | A2C: 14.99 cm2 LAESV A-L A2C: 42.95 ml LALs A2C: 4.44 cm | | | LAAs A4C: 15.41 cm2 LAESV A-L A4C: 43.34 ml LALs A4C: 4.65 | | | cm RAAs: 12.68 cm2 RAESV A-L: 35.28 ml RAESV MOD: 33.87 ml | | | RALs: 3.87 cm TAPSE: 1.84 cm AV maxP.42 mmHg AV | | | meanP.69 mmHg AV Vmax: 1.36 m/s AV Vmean: 0.90 m/s AV | | | VTI: 23.16 cm GISSELLE Vmax: 2.43 cm2 GISSELLE (VTI): 2.55 cm2 AVAI | | | (Vmax): 0.00 cm2/m2 AVAI (VTI): 0.00 cm2/m2 LVOT maxPG: | | | 4.01 mmHg LVOT meanP.12 mmHg LVSI Dopp: 34.03 ml/m2 LVSV | | | Dopp: 59.22 ml LVOT Vmax: 1.00 m/s LVOT Vmean: 0.69 m/s | | | LVOT VTI: 17.90 cm MV A Brock: 0.82 m/s MV Dec [place]: 7.33 | | | m/s2 MV DecT: 140.20 ms MV E Brock: 1.02 m/s MV E/A Ratio: | | | 1.25 MV PHT: 40.65 ms MVA By PHT: 5.41 cm2 Septal e': 0.03 | | | m/s Septal E/e': 29.00 Lateral e': 0.04 m/s Lateral E/e': | | | 24.10 RAP: 10 mmHg RVSP: 49.46 mmHg TR maxP.46 mmHg | | | TR Vmax: 3.14 m/s Towboat Engineer: ZORA Authenticated by: | | | TAMARA MAHONEY MD Report Date/Time: 01-28-2018 18:52:56 | | + + + + + | Procedure Note | + + | Madhu, Rad Conversion - 03/12/2019 5:38 PM PDT Patient Name: Jl Martin of | | : 1955 Performing Physician: TAMARA MAHONEY, | | MD INDICATIONS C | | HF CONCLUSIONS 1. Overall left ventricular systolic function is | | mild-moderately impaired, with mild global hypokinesis and an EF between 40 - 45 %.2. | | Pseudonormal LV diastolic filling pattern, consistent with elevated LA pressure and | | moderate dysfunction (Grade II).3. The right ventricle is normal in size and function.4. | | Mild mitral and tricuspid regurgitation are present.5. There is mild pulmonary | | hypertension. The right ventricular systolic pressure (pulmonary artery systolic | | pressure), as measured by Doppler, is 44 - 49 mm Hg. FINDINGS--------ECG rhythm: Sinus | | rhythm.Study: A 2-dimensional transthoracic echocardiogram with m-mode, spectral and | | color flow Doppler was perfomed.Study: This was a technically adequate study.Left | | Ventricle: Overall left ventricular systolic function is mild-moderately impaired with, | | an EF between 40 - 45 %.Left Ventricle: The left ventricle cavity size is normal.Left | | Ventricle: Left ventricular wall thickness is normal.Left Ventricle: There is mild | | global hypokinesis of LV contractility.Left Ventricle: Pseudonormal LV diastolic filling | | pattern, consistent with elevated LA pressure and moderate dysfunction (Grade II).Right | | Ventricle: The right ventricle is normal in size and function.Left Atrium: The left | | atrium is normal in size.Right Atrium: The right atrium is normal in size.Aortic Valve: | | The aortic valve is trileaflet, and appears anatomically normal. No aortic stenosis or | | regurgitation.Mitral Valve: Normal appearing mitral valve.Mitral Valve: Mild mitral | | regurgitation is present.Mitral Valve: No evidence of MVP.Tricuspid Valve: The tricuspid | | valve appears structurally normal.Tricuspid Valve: Mild tricuspid regurgitation | | present.Tricuspid Valve: There is mild pulmonary hypertension.Tricuspid Valve: The right | | ventricular systolic pressure (pulmonary artery systolic pressure), as measured by | | Doppler, is 44 - 49 mm Hg.Pulmonic Valve: Pulmonic valve appears structurally | | normal.Pulmonic Valve: Trace pulmonic regurgitation.Pericardium: There is no | | pericardial effusion.Pericardium: pleural effusion is seen.IVC/Hepatic Veins: The | | inferior vena cava is normal in size and collapses > 50 % with sniff, indicating normal | | central venous pressures.Aorta: The aortic root, ascending aorta and aortic arch are | | normal.Mass: No mass visualizedThrombus: No clot visualizedThrombus: No vegetation | | visualized.Septum: No ASD observed.Septum: No VSD observed. MEASUREMENTS Ao | | sinus: 3.[address] junct: 2.77 cmIVC: 1.46 cmLA Diam: 3.99 cmEDV(Teich): | | 142.92 mlIVSd: 1.04 cmLVIDd: 5.42 cmLVPWd: 0.88 cmLVOT Area: 3.30 [id number] Diam: | | 2.05 cm%FS: 19.68 %EF(Teich): 40.00 %ESV(Teich): 85.74 mlLVIDs: 4.35 | | cmSV(Teich): 57.18 mlRVIDd: 2.91 cmLVEF MOD A2C: 35.70 %SV MOD A2C: 55.31 mlLVEF | | MOD A4C: 47.89 %SV MOD A4C: 62.73 mlEF Biplane: 40.43 %LVEDV MOD BP: 142.22 | | mlLVESV MOD BP: 84.71 mlLVEDV MOD A2C: 154.92 mlLVLd A2C: 8.64 cmLVEDV MOD A4C: | | 130.98 mlLVLd A4C: 8.65 cmLVESV MOD A2C: 99.61 mlLVLs A2C: 7.82 cmLVESV MOD A4C: | | 68.24 mlLVLs A4C: 7.38 cmLAESV(A-L): 44.16 mlLAESV Index (A-L): 25.38 ml/m2LAAs | | A2C: 14.99 ns0HFFIR A-L A2C: 42.95 mlLALs A2C: 4.44 cmLAAs A4C: 15.41 mz2SRBAD | | A-L A4C: 43.34 mlLALs A4C: 4.65 cmRAAs: 12.68 gc6CPSJL A-L: 35.28 mlRAESV MOD: | | 33.87 mlRALs: 3.87 cmTAPSE: 1.84 cmAV maxP.42 mmHgAV meanP.69 mmHgAV | | Vmax: 1.36 m/John Vmean: 0.90 m/John VTI: 23.16 cmAVA Vmax: 2.43 cm2AVA (VTI): | | 2.55 ru5WXNP (Vmax): 0.00 cm2/m2AVAI (VTI): 0.00 cm2/m2LVOT maxP.01 mmHgLVOT | | meanP.12 mmHgLVSI Dopp: 34.03 ml/m2LVSV Dopp: 59.22 mlLVOT Vmax: 1.00 | | m/sLVOT Vmean: 0.69 m/sLVOT VTI: 17.90 cmMV A Brock: 0.82 m/sMV Dec [place]: 7.33 | | m/s2MV DecT: 140.20 msMV E Brock: 1.02 m/sMV E/A Ratio: 1.25MV PHT: 40.65 msMVA By | | PHT: 5.41 kn4Rzofqm e': 0.03 m/sSeptal E/e': 29.00Lateral e': 0.04 m/sLateral | | E/e': 24.10RAP: 10 mmHgRVSP: 49.46 mmHgTR maxP.46 mmHgTR Vmax: 3.14 m/s | | Towboat Engineer: ZORAAuthenticated by: Kiko BUTLER Date/Time: 01-28-2018 18:52:56 | | IMPRESSION: 1. Overall left ventricular systolic function is mild-moderately impaired, | | with mild global hypokinesis and an EF between 40 - 45 %.2. Pseudonormal LV diastolic | | filling pattern, consistent with elevated LA pressure and moderate dysfunction (Grade | | II).3. The right ventricle is normal in size and function.4. Mild mitral and tricuspid | | regurgitation are present.5. There is mild pulmonary hypertension. The right | | ventricular systolic pressure (pulmonary artery systolic pressure), as measured by | | Doppler, is 44 - 49 mm Hg. | |LA Diam: 3.99 cm | |EDV(Teich): 142.92 ml | |IVSd: 1.04 cm | |LVIDd: 5.42 cm | |LVPWd: 0.88 cm | |LVOT Area: 3.30 cm2 | |LVOT Diam: 2.05 cm | |%FS: 19.68 % | |EF(Teich): 40.00 % | |ESV(Teich): 85.74 ml | |LVIDs: 4.35 cm | |SV(Teich): 57.18 ml | |RVIDd: 2.91 cm | |LVEF MOD A2C: 35.70 % | |SV MOD A2C: 55.31 ml | |LVEF MOD A4C: 47.89 % | |SV MOD A4C: 62.73 ml | |EF Biplane: 40.43 % | |LVEDV MOD BP: 142.22 ml | |LVESV MOD BP: 84.71 ml | |LVEDV MOD A2C: 154.92 ml | |LVLd A2C: 8.64 cm | |LVEDV MOD A4C: 130.98 ml | |LVLd A4C: 8.65 cm | |LVESV MOD A2C: 99.61 ml | |LVLs A2C: 7.82 cm | |LVESV MOD A4C: 68.24 ml | |LVLs A4C: 7.38 cm | |LAESV(A-L): 44.16 ml | |LAESV Index (A-L): 25.38 ml/m2 | |LAAs A2C: 14.99 cm2 | |LAESV A-L A2C: 42.95 ml | |LALs A2C: 4.44 cm | |LAAs A4C: 15.41 cm2 | |LAESV A-L A4C: 43.34 ml | |LALs A4C: 4.65 cm | |RAAs: 12.68 cm2 | |RAESV A-L: 35.28 ml | |RAESV MOD: 33.87 ml | |RALs: 3.87 cm | |TAPSE: 1.84 cm | |AV maxP.42 mmHg | |AV meanP.69 mmHg | |AV Vmax: 1.36 m/s | |AV Vmean: 0.90 m/s | |AV VTI: 23.16 cm | |GISSELLE Vmax: 2.43 cm2 | |GISSELLE (VTI): 2.55 cm2 | |AVAI (Vmax): 0.00 cm2/m2 | |AVAI (VTI): 0.00 cm2/m2 | |LVOT maxP.01 mmHg | |LVOT meanP.12 mmHg | |LVSI Dopp: 34.03 ml/m2 | |LVSV Dopp: 59.22 ml | |LVOT Vmax: 1.00 m/s | |LVOT Vmean: 0.69 m/s | |LVOT VTI: 17.90 cm | |MV A Brock: 0.82 m/s | |MV Dec [place]: 7.33 m/s2 | |MV DecT: 140.20 ms | |MV E Brock: 1.02 m/s | |MV E/A Ratio: 1.25 | |MV PHT: 40.65 ms | |MVA By PHT: 5.41 cm2 | |Septal e': 0.03 m/s | |Septal E/e': 29.00 | |Lateral e': 0.04 m/s | |Lateral E/e': 24.10 | |RAP: 10 mmHg | |RVSP: 49.46 mmHg | |TR maxP.46 mmHg | |TR Vmax: 3.14 m/s | | | |Towboat Engineer: DBS | |Authenticated by: TAMARA MAHONEY MD | |Report Date/Time: 01-28-2018 18:52:56 | | | |IMPRESSION: | |1. Overall left ventricular systolic function is mild-moderately impaired, with mild globa l hypokinesis and an EF between 40 - 45 %. | |2. Pseudonormal LV diastolic filling pattern, consistent with elevated LA pressure and mode rate dysfunction (Grade II). | |3. The right ventricle is normal in size and function. | |4. Mild mitral and tricuspid regurgitation are present. | |5. There is mild pulmonary hypertension. The right ventricular systolic pressure (pulmonar y artery systolic pressure), as measured by Doppler, is 44 - 49 mm Hg. | + + documented in this encounter Visit Diagnoses Not on filedocumented in this encounter"
--- OUTSIDE RECORDS SUMMARY | ~2019-06-26 | XMS | Encounter Summary ---
Demographics + + + | Address | [address] | | | [place] [address] | + + + | Home Phone | | + + + | Preferred Language | Unknown | + + + | Marital Status | | + + + | Sikh Affiliation | 1041 | + + + | Race | Unknown | + + + | Ethnic Group | Unknown | + + + Author + + + | Author | [facility] | | | and [place] | + + + | Organization | [facility] | | [...] Team Providers + +------+ + | Care Office Assistant Name | Role | Phone | + +------+ + PCP | Unavailable | + +------+ + Encounter Details +--------+ + + + + | Date | Type | Department | Care Team | Description | +--------+ + + + + | 10/14/ | Hospital | [facility] | Cal Godinez, | | | 2000 | Encounter | MED CTR GENERIC OP | MD [address] [facility] | | | | | CONV DEPT [address] | [place], [place] | | | | | [place], | [address] | | | | | [place] [address] | | | | | | [phone] | | | +--------+ + + + [...] 2020 | Visit | | [address] [facility] | | | | | | [address] [place] | | | | | | [address] | | | | | | | | +--------+---------+ + + + documented as of this encounter Visit Diagnoses Not on filedocumented in this encounter"
--- OUTSIDE RECORDS SUMMARY | ~2019-06-26 | XMS | Encounter Summary ---
Demographics + + + | Address | [address] | | | [place] [address] | + + + | Home Phone | | + + + | Preferred Language | Unknown | + + + | Marital Status | | + + + | Muslim Affiliation | Unknown | + + + | Race | or | + + + | Ethnic Group | Not or | + + + Author + + + | Author | [facility] [employer] [facility] | + + + | Organization | [facility] | + + + | Address | Unknown | + + + | Phone | Unavailable | + + + Support + + + + + | Name | Relationship | Address | Phone | + + + + + | Angene Bill | ECON | [address] | | | | [address], [place] | | | | | [address] | | + + + + + Care Team Providers + +------+ + | Care Christmas Tree Grower Name | Role | Phone | + [...] Services | | | | Note-Transc | [address] | | | | | livia | [place], [place] | | | | | | [address] | | | +--------+ + + + [...]
--- OUTSIDE RECORDS SUMMARY | ~2019-06-26 | XMS | Encounter Summary ---
Demographics + + + | Address | [address] | | | [place] [address] | + + + | Home Phone [...] Team Providers + +------+ + | Care Stull Installer Name | Role | Phone | + +------+ + | Nathalie Castorena | PCP | | + +------+ + Reason for Visit +--------+ + | Reason | Comments | +--------+ + | Other | Aranesp | +--------+ + Encounter Details +--------+ + + + + | Date | Type | Department | Care Team | Description | +--------+ + + + + | 06/24/ | Telephone | [facility] | James Pearce MD | Other (Priti) | | 2019 | | NEPHROLOGY [place] | [address] [facility] | | | | | [address] | [address] [place], [place] | | | | | [facility] [address] | [address] | | | | | [place], [place] | | | | | | [address] | | | | | | [phone] | | | +--------+ + + + [...] [place] | | | | | | [address] | | | | | | | | +--------+---------+ + + + documented as of this encounter Visit Diagnoses Not on filedocumented in this encounter"
--- OUTSIDE RECORDS SUMMARY | ~2019-06-26 | XMS | Encounter Summary ---
Demographics + + + | Address | [address] | | | [place] [address] | + + + | Home Phone | | + + + | Preferred Language | Unknown | + + + | Marital Status | | + + + | Faith Affiliation | 1041 | + + + [...] Team Providers + +------+ + | Care Staff Toxicologist Name | Role | Phone | + [...] | | | | | | [place] [address] | | | | | | [phone] | | | +--------+ + + + [...] 2020 | Visit | | [address] [facility] | | | | | | [address] [place], [place] | | | | | | [address] | | | | | | | | +--------+---------+ + + + documented as of this encounter Visit Diagnoses Not on filedocumented in this encounter"
--- OUTSIDE RECORDS SUMMARY | ~2019-06-26 | XMS | Encounter Summary ---
Demographics + + + | Address | [address] | | | [place] [address] | + + + | Home Phone | | + + + | Preferred Language | Unknown | + + + | Marital Status | | + + + | Alevism Affiliation | 1041 | + + + | Race | Unknown | + + + | Ethnic Group | Unknown | + + + Author + + + | Author | [facility] | | | and [place] | + + + | Organization | [facility] | | | [...] Team Providers + +------+ + | Care Wood Carving Lathe Operator Name | Role | Phone | + +------+ + | Bernadette Armendariz PA-C | PCP | | + +------+ + Encounter Details +--------+ + + + + | Date | Type | Department | Care Team | Description | +--------+ + + + + | 11/12/ | Orders Only | [facility] | James Pearce MD | | | 2019 | | NEPHROLOGY [place] | [address] [place] | | | | | [address] [place] | [address] [place], [place] | | | | | [address] [facility] [place] | [address] | | | | | [address] | | | | | | [phone] | | | +--------+ + + + [...] | Visit | | [address] [facility] | | | | | | [address] [place], [place] | | | | | | [address] | | | | | | | | +--------+---------+ + + + documented as of this encounter Procedures + +--------+ + + + | Procedure Name | Priori | Date/Time | Associated Diagnosis | Comments | | | ty | | | | + +--------+ + + + | EXTERNAL LAB: CBC | Routin | 11/12/2018 | | Results for this | | | e | 10:32 AM | | procedure are in the | | | | PDT | | results section. | + +--------+ + + + | RENAL FUNCTION PANEL | Routin | 11/12/2018 | | Results for this | | | e | 10:32 AM | | procedure are in the | | | | PDT | | results section. | + +--------+ + + + documented in this encounter Results External Lab: CBC (11/12/2018 10:32 AM PDT) + + + + + + | Component | Value | Ref Range | Performed | Pathologist | | | | | At | Signature | + + + + + + | WBC | 4.80 | 4.0 - 11.0 10 | EXTERNAL | | | | | | LAB | | + + + + + + | RED CELL | 3.52 (A) | 3.80 - 5.0 10 | EXTERNAL | | | COUNT | | | LAB | | + + + + + + | Hgb | 9.86 (A) | 12 - 16 g/dL | EXTERNAL | | | | | | LAB | | + + + + + + | Hematocrit, | 30.43 (A) | 35 - 45 % | EXTERNAL | | | POC | | | LAB | | + + + + + + | MCV | 86.40 | 81 fL | EXTERNAL | | | | | | LAB | | + + + + + + | MCH | 28.0 | 27 pg | EXTERNAL | | | | | | LAB | | + + + + + + | MCHC | 32.41 | 30.00 g/dL | EXTERNAL | | | | | | LAB | | + + + + + + | Platelet | 211 | 140 - 440 K/ L | EXTERNAL | | | Count | | | LAB | | | Plasma | | | | | + + + + + + | RDW-CV | 14.24 | 10.50 % | EXTERNAL | | | | | | LAB | | + + + + + + | MPV | | fL | EXTERNAL | | | | | | LAB | | + + + + + + | Differentia | | | EXTERNAL | | | l Type | | | LAB | | + + + + + + | % Segmented | 55.0 | 37 - 67 % | EXTERNAL | | | | | | LAB | | | Neutrophils | | | | | + + + + + + | % | 33.30 | 24 - 44 % | EXTERNAL | | | Lymphocytes | | | LAB | | + + + + + + | % Monocytes | 6.60 | 5 - 12 % | EXTERNAL | | | | | | LAB | | + + + + + + | % | 4.80 | 0 - 5 % | EXTERNAL | | | Eosinophils | | | LAB | | + + + + + + | % Basophils | 0.30 | 0 - 2 % | EXTERNAL | | | | | | LAB | | + + + + + + | Absolute | 2.64 | 1.3 - 7.0 / L | EXTERNAL | | | Segmented | | | LAB | | | Neutrophils | | | | | + + + + + + | Absolute | 1.60 | 0.8 - 3.0 / L | EXTERNAL | | | Lymphocytes | | | LAB | | + + + + + + | Absolute | 0.32 | 0.2 - 1.0 / L | EXTERNAL | | | Monocytes | | | LAB | | + + + + + + | Absolute | 0 | / L | EXTERNAL | | | Eosinophils | | | LAB | | + + + + + + | Absolute | 0.01 | 0.0 | EXTERNAL | | | Basophils | | | LAB | | + + + + + + + + | Specimen | + + | Blood specimen | | (specimen) | + + + +---------+ + + | Performing | Address | City/State/Zipcode | Phone Number | | Organization | | | | + +---------+ + + | EXTERNAL LAB | | | | + +---------+ + + Renal Function Panel (11/12/2018 10:32 AM PDT) + +---------+ + + + | Component | Value | Ref Range | Performed | Pathologist | | | | | At | Signature | + +---------+ + + + | Glucose, | 132 (A) | 65 - 99 mg/dL | EXTERNAL | | | Fasting | | | LAB | | + +---------+ + + + | BUN | 32 (A) | 8 - 25 mg/dL | EXTERNAL | | | | | | LAB | | + +---------+ + + + | Creatinine | 2.10 | 0.70 mg/dL | EXTERNAL | | | | | | LAB | | + +---------+ + + + | PHOSPHORUS | 4.5 | 2.5 - 5.0 mg/dL | EXTERNAL | | | | | | LAB | | + +---------+ + + + | Albumin | 3.1 (A) | 3.5 - 5.0 | EXTERNAL | | | | | | LAB | | + +---------+ + + + | Na | 140 | 135 - 145 | EXTERNAL | | | | | mmol/L | LAB | | + +---------+ + + + | K | 4.1 | 3.5 - 5.0 | EXTERNAL | | | | | mmol/L | LAB | | + +---------+ + + + | Cl | 111 (A) | 97 - 107 mmol/L | EXTERNAL | | | | | | LAB | | + +---------+ + + + | CO2 | 24 | 22 - 29 mmol/L | EXTERNAL | | | | | | LAB | | + +---------+ + + + | Anion Gap | 10 (A) | 14 - 22 mmol/L | EXTERNAL | | | | | | LAB | | + +---------+ + + + | eGFR if not | | | EXTERNAL | | | | | | LAB | | | [facility]IAN | | | | | + +---------+ + + + | Phosphorus, | | | EXTERNAL | | | Inorganic | | | LAB | | + +---------+ + + + | BUN/Creatin | 15.2 | 11.0 | EXTERNAL | | | ine Ratio | | | LAB | | + +---------+ + + + | Calcium | | mg/dL | EXTERNAL | | | | | | LAB | | + +---------+ + + + | Estimated | 25 (A) | 60 - 140 mg/dL | EXTERNAL | | | GFR | | | LAB | | + +---------+ + + + [...]
--- OUTSIDE RECORDS SUMMARY | ~2019-06-26 | XMS | Encounter Summary ---
Demographics + + + | Address | [address] | | | [place] [address] | + + + | Home Phone | | + + + | Preferred Language | Unknown | + + + | Marital Status | | + + + | Caodaism Affiliation | 1041 | + + + [...] Team Providers + +------+ + | Care Insulation Board Coater Operator Name | Role | Phone | [...] [address] | | | | [place] [place], | [address] [place] | | | | | [place] [address] | [place] [address] | | | | | [phone] | | | | | | | [...] 2020 | [facility] | | [address] [facility] [place] | | | | | | [address] [place] | | | | | | [address] | | | | | | | [...]
--- OUTSIDE RECORDS SUMMARY | ~2019-06-26 | XMS | Encounter Summary ---
Demographics + + + | Address | [address] | | | [place] [address] | + + + | Home Phone | | + + + | Preferred Language | Unknown | + + + | Marital Status | | + + + | Yazidism Affiliation | [id number] | + + + | Race | Unknown | + + + | Ethnic Group | Unknown | + + + Author + + + | Author | [facility] | | | and [place] | + + + | Organization | [facility] | | | [...] Team Providers + +------+ + | Care Right Of Way Worker Name | Role | Phone | + +------+ + | Bernadette Armendariz PA-C | PCP | | + +------+ + Encounter Details +--------+ + + + + | Date | Type | Department | Care Team | Description | +--------+ + + + + | 08/05/ | Hospital | [facility] | Conversion | CAD in [place] | | 2019 - | Encounter | [facility] | Transaction, | artery; Congestive | | | | CARE FLOOR [address] | Provider Unknown | heart failure, | | | | [address] | [phone] | unspecified HF | | 2019 | | [place], [place] | | chronicity, | | | | [address] | Brynn Crawford MD | unspecified heart | | | | [phone] | [address] | failure type (HCC); | | | | | [place] [address] | Precordial pain; | | | | | [phone] | Ischemic | | | | | [...] 08/11/181929 Date of Service: 08/10/18941 Status: Signed Shirring Tender: Gustavo Castorena MD (Physician) [facility] Service: Hospitalist Physician Discharge Summary Patient ID: [...] Invalid input(s): ABG Disposition: HOME Follow up: [facility] [address] [place] [address] [place] [address] Schedule an appointment as soon as possible [...] 1558 Date of Service: 08/11/181499 Status: Signed Shirring Tender: Cinthya Carmen RN (Registered Nurse) Pt discharge home with family. Pt states understanding about scripts and paperwork. IV d/c. Tele d/c. Family to transport pt home. onver federico Transaction, Provider Unknown - 08/11/2018 12:50 PM PST Case Management by Damaris Canchola RN at 08/11/181249 Author: Damaris Canchola RN Service: (none) Author Type: Registered Nurse Filed: 08/11/181249 Date of Service: 08/11/181249 Status: Signed Shirring Tender: Damaris Canchola RN (Registered Nurse) Met with [...] Date of Service: 08/11/18 1045 Status: Signed Shirring Tender: Shin Rivera MD (Physician) PCP : [facility] LOS: 5 days Maria Ines Martin is [...] was completed later after rounds. Dictation software, [employer], was used which may contain error for [...] 08/11/18615 Date of Service: 08/11/18614 Status: Signed Shirring Tender: Francy Beckford RN (Registered Nurse) VSS. Patient [...] 08/10/181751 Date of Service: 08/10/181747 Status: Signed Shirring Tender: Kaia Penaloza RN (Registered Nurse) Pt down [...] Notes by Teena Encinas RD at 08/10/18 2806 Author: Teena Encinas RD Service: (none) Author Type: Registered Dietitian Filed: 08/10/18 4972 Date of Service: 08/10/186 Status: Signed Shirring Tender: Teena Encinas RD (Registered Dietitian) 08/10/18 3778 Subjective Timepoint Follow up (diet education) Food and Nutrition Knowledge Area(s) and Level of Knowledge In to see pt for renal cardiac diet. Pt K+ WNL at this time but hx hyperkalemia. Discussed high potassium foods and provided list from [facility]. Discussed th at she does not need to limit at this time with ARF and WNL K+ but may need to in the future . Provided low sodium handout from [facility] and discussed. Pt reports that she [...] Date of Service: 08/10/18 1209 Status: Signed Shirring Tender: Shin Rivera MD (Physician) PCP : [facility] LOS: 4 days Maria Ines Martin is [...] was completed later after rounds. Dictation software, [employer], was used which may contain error for [...] 0957 Date of Service: 08/10/18951 Status: Signed Shirring Tender: Gustavo Castorena MD (Physician) [facility] Service: Hospitalist Progress Note Hospital Day: LOS: 4 days SUBJECTIVE Still c/o back pain. Slept well Did not see logistics associate HPI: Ms. Maria Ines Martin is a [...] and management as well as Computerized Physician Contact Worker. Disposition: Home ? Code Status: Full Code Gustavo Castorena MD 08/10/2018 9:57 AM onversion Transactio n, Provider Unknown - 08/10/2018 6:23 AM PST Nurse Progress Note by Francy Beckford RN at 08/10/18622 Author: Francy Beckford RN Service: (none) Author Type: Registered Nurse Filed: 08/10/18627 Date of Service: 08/10/18622 Status: Signed Shirring Tender: Francy Beckford RN (Registered Nurse) VSS. Pt [...] 08/09/181751 Date of Service: 08/09/181749 Status: Signed Shirring Tender: Kaia Penaloza RN (Registered Nurse) VSS today. [...] Notes by Shin Rivera MD at 08/09/18 9584 Author: Shin Rivera MD Service: Nephrology Author Type: Physician Filed: 08/10/18 0751 Date of Service: 08/09/181747 Status: Signed Shirring Tender: Shin Rivera MD (Physician) PCP : [facility] LOS: 3 days Maria Ines Martin is [...] outpatient follow up with Dr. Pearce in [place]. Strict low K diet. Diet 2 gm [...] was completed later after rounds. Dictation software, [employer], was used which may contain error for [...] 1421 Date of Service: 08/09/181415 Status: Signed Shirring Tender: Gustavo Castorena MD (Physician) [facility] Service: Hospitalist Progress Note Hospital Day: LOS: [...] and management as well as Computerized Physician Contact Worker. Disposition: Home ? Code Status: Full Code Gustavo Castorena MD 08/09/2018 2:16 PM onversion Transactio n, Provider Unknown - 08/09/2018 6:26 AM PST Nurse Progress Note by Francy Beckford RN at 08/09/18 0402 Author: Francy Beckford RN Service: (none) Author Type: Registered Nurse Filed: 08/09/18 6766 Date of Service: 08/09/18625 Status: Signed Shirring Tender: Francy Beckford RN (Registered Nurse) Patient complained [...] 08/08/182000 Date of Service: 08/08/182000 Status: Signed Shirring Tender: Nimo Heredia RN (Registered Nurse) No significant [...] by Brynn Crawford MD at 08/08/181641 Author: rBynn Crawford MD Service: Cardiology Author Type: Physician Filed: 08/08/18 180 Date of Service: 08/08/18 164 Status: Signed Shirring Tender: Brynn Crawford MD (Physician) [facility] Service: Cardiology/[facility] Progress Note RE: Maria Ines [...] Mild mitral regurgitation is present. Scores: 1. [id number]-[id number] Score: 3 2. Sammarinese Anginal Score: 3 3. NYHA Score: 2 [...] 1541 Date of Service: 08/08/181535 Status: Signed Shirring Tender: Damaris Canchola RN (Registered Nurse) Tc from [facility]([phone]), CM with [facility] re d/c plan, infor med that d/c date is still unknown. [facility] transport dept, states they dont provide transportation on [place], but would need to call [facility] for [place] transport call . If [facility] is not able to provide transportation, need to ask family or pay for taxi. Kathe Gustavo Lara MD - 08/08/2018 2:53 PM PSTFormatting of this note might be different from the or iginal. Progress Notes by Gustavo Castorena MD at 08/08/18 9812 Author: Gustavo Castorena MD Service: Internal Medicine Author Type: Physician Filed: 08/08/181456 Date of Service: 08/08/181452 Status: Signed Shirring Tender: Gustavo Castorena MD (Physician) [facility] Service: Hospitalist Progress Note Hospital Day: LOS: [...] LIST Principal Problem: GRACIELA (acute kidney injury) ([facility]) Active Problems: Ischemic cardiomyopathy Chronic systolic heart failure (HCC) Hyperkalemia Essential hypertension Type 2 diabetes mellitus with complication, with long-term current use of insulin ([facility]) ASSESSMENT / PLAN Heart failure reduced ejection [...] -ve for hydronephrosis. nephrology Following D/w Dr Rivear. Probable has CKD and not graciela Likely [...] and management as well as Computerized Physician Contact Worker. Disposition: Home ? Code Status: Full Code Gustavo Castorena MD 08/08/2018 2:53 PM Shin Vale MD - 08/08/2018 11:26 AM PST Progress Notes by Shin Rivera MD at 08/08/18 1126 Author: Shin Rivera MD Service: Nephrology Author Type: Physician Filed: 08/10/18 1223 Date of Service: 08/08/18 1126 Status: Signed Shirring Tender: Shin Rivera MD (Physician) PCP : [facility] LOS: 2 days Maria Ines Martin is [...] was completed later after rounds. Dictation software, [employer], was used which may contain error for similar sounding words nabor jackman after review. Personal communication is requested for any clarification. Prognosis is guarded in view of multiple comorbid illnesses and acute on chronic renal fail ure including but not limited to potential need for OIL BURNER and . amLODIPine 7.5 mg Oral Daily [...] 0700 Date of Service: 08/08/1859 Status: Signed Shirring Tender: Little Infante RN (Registered Nurse) Pt had [...] 08/07/182005 Date of Service: 08/07/182005 Status: Signed Shirring Tender: Nimo Heredia RN (Registered Nurse) No significant [...] Management by Damaris Canchola RN at 08/07/18 7304 Author: Damaris Canchola RN Service: (none) Author Type: Registered Nurse Filed: 08/07/18 1202 Date of Service: 08/07/18 1156 Status: Signed Shirring Tender: Damaris Canchola RN (Registered Nurse) Tc to Kathrin([phone]), CM with [facility] re d/c plan, LMTCB Per pt, wants CM to call [facility] transportation refrigeration technician re transport back [phone]. Per [place], for wknd medicaid transport call Kathe onver federico Transaction, Provider Unknown - 08/07/2018 11:47 AM PST Case Management by Damaris Canchola RN at 08/07/18 1147 Author: Damaris Canchola RN Service: (none) Author Type: Registered Nurse Filed: 08/07/18 1149 Date of Service: 08/07/18 1147 Status: Signed Shirring Tender: Damaris Canchola RN (Registered Nurse) 08/07/18 1100 [...] with spouse and child(disabled chi ld) in [place]. Pt states she is indep with all her adl's, but does use a cane if needed f or outdoors as she has vision deficits.no home o2, no anticoagulants, no HD. Plans to return home Patient's PCP is: [facility] Patient's insurance[facility] Coverage concerns: Medication coverage/concerns: Rx Bedside Delivery: [...] 1058 Date of Service: 08/07/181049 Status: Signed Shirring Tender: Gustavo Castorena MD (Physician) [facility] Service: Hospitalist Progress Note Hospital Day: LOS: [...] and management as well as Computerized Physician Contact Worker. Disposition: Home ? Code Status: Full Code Gustavo Castorena MD 08/07/2018 10:50 AM Brynn Hanna MD - 8:47 AM PST Progress Notes by Brynn Crawford MD at 08/07/18 4374 Author: Brynn Crawford MD Service: Cardiology Author Type: Physician Filed: 08/07/18 0914 Date of Service: 08/07/18 0847 Status: Signed Shirring Tender: Brynn Crawford MD (Physician) [facility] Service: Cardiology/[facility] Progress Note RE: Maria Ines [...] Mild mitral regurgitation is present. Scores: 1. [id number] Score: 2. Sammarinese Anginal Score: 3. NYHA Score: ASSESSMENT: 1. [...] her [facility] better ejection fraction than what it was reported previously at [facility]. Regardless with her history of chest discomforts [...] he original. Nurse Progress Note by Agustina Caed RN at 08/07/18625 Author: Agustina Cade RN Service: (none) Author Type: Registered Nurse Filed: 08/07/18626 Date of Service: 08/07/18625 Status: Signed Shirring Tender: Agustina Cade RN (Registered Nurse) End of shift audit complete. AGUSTINA CADE RN onver federico Transaction, Provider Unknown - 08/06/2018 5:18 PM PST Nurse Progress Note by Jacquie Miranda RN at 08/06/181717 Author: Jacquie Miranda RN Service: (none) Author Type: Registered Nurse Filed: 08/06/181718 Date of Service: 08/06/181717 Status: Signed Shirring Tender: Jacquie Miranda RN (Registered Nurse) End of shift chart check completed Gustavo Lara MD - 08/06/2018 1:52 PM PSTFormatting of this note might be different from the or iginal. Progress Notes by Gustavo Castorena MD at 08/06/18 028 Author: Gustavo Castorena MD Service: Internal Medicine Author Type: Physician Filed: 08/06/18 1352 Date of Service: 08/06/18 339 Status: Signed Shirring Tender: Gustavo Castorena MD (Physician) [facility] Service: Hospitalist Progress Note Hospital Day: LOS: [...] and management as well as Computerized Physician Contact Worker. Disposition: Home ? Code Status: Full Code Gustavo Castorena MD 08/06/2018 1:55 PM onversion Transactio n, Provider Unknown - 08/06/2018 12:04 PM PST Progress Notes by Anjali Kerr RD at 08/06/18 1204 Author: Anjali Kerr RD Service: (none) Author Type: Registered Dietitian Filed: 08/06/18 1209 Date of Service: 08/06/18 120 Status: Signed Shirring Tender: Anjali Kerr RD (Registered Dietitian) 08/06/18 8141 Subjective Timepoint Admit Pt c/o Pt triggered for dysphagia. Pt admitted for acute renal failure. Reported by Patient Diet Experience Self-selected diet(s) followed Pt reports she was eating all kinds of foods CHRONOMETER TESTER. Pt went ov er her hx of [...] any concerns for dysphag ia consider ordering LITHOGRAPHER APPRENTICE eval. Anthropometrics Weight change Pt's BMI is 34 and pt is 166% of IBW. Pt reports she has gained wt over the p ast 4 months after stopping meth. Biochemical data, medical tests, and procedures reviewed Biochemical data, medical tests, and procedures reviewed Labs reviewed. Recommendations Recommended energy needs Continue diet as ordered with modications per LITHOGRAPHER APPRENTICE, if needed. Enco urage po intake as [...] 0936 Date of Service: 08/06/18850 Status: Signed Shirring Tender: Brynn Crawford MD (Physician) [facility] Service: Cardiology/[facility] Progress Note RE: Maria Ines [...] prolonged QRS Imaging Chest X-Ray: Scores: 1. [id number]-Htsu Score: 2. Sammarinese Anginal Score: 3. NYHA Score: ASSESSMENT: 1. [...] 08/06/18517 Date of Service: 08/06/18517 Status: Signed Shirring Tender: Cheryl Patel RN (Registered Nurse) End of shift audit complete. onver federico Transaction, Provider Unknown - 08/05/2018 5:56 PM PST Nurse Progress Note by Ghada Crawley RN at 08/05/181755 Author: Ghada Crawley RN Service: (none) Author Type: Registered Nurse Filed: 08/05/181755 Date of Service: 08/05/18 1756 Status: Signed Shirring Tender: Ghada Crawley RN (Registered Nurse) End of shift review complete GHADA CRAWLEY RN Brnyn Merrill MD - 08/05/2018 1:38 PM PSTFormatting of this note might be different from the orig inal. Progress Notes by Brynn Crawford MD at 08/05/18 2099 Author: Brynn Crawford MD Service: Cardiology Author Type: Physician Filed: 08/05/18 0995 Date of Service: 08/05/18 6474 Status: Signed Shirring Tender: Brynn Crawford MD (Physician) Mrs. Martin presented [...] was seen by Dr. Vic Gaitan in [facility] for evaluation. An echoca rdiogram was obtained [...] cant ST or T-wave abnormalities. Scores: 1. [id number]-Pdbp Score: 4 2. Sammarinese Anginal Score: 2 3. NYHA Score: 2-3 [...] 2019 | Visit | | [address] [facility] | | | | | | [address] | | | | | | [address] | | | | | | | [...] | | | Fingerstick | performed at [facility];[address] | | LAB | | | | [address];[place] | | | | | | [address] | | | | + + + [...] | | | Fingerstick | performed at [facility];[address] | | LAB | | | | [address];[place], [place] | | | | | | [address] | | | | + + + [...] | | | | | performed at [facility], [address] | | | | | | [address], | | | | | | [place] [address] | | | | + + + [...] | | | Fingerstick | performed at [facility];[address] | | LAB | | | | [address];[place], [place] | | | | | | [address] | | | | + + + [...] | | | Fingerstick | performed at [facility];[address] | | LAB | | | | [address];[place], [place] | | | | | | [address] | | | | + + + [...] | | | Fingerstick | performed at [facility];[address] | | LAB | | | | [address];[place], [place] | | | | | | [address] | | | | + + + [...] | | | Fingerstick | performed at [facility];[address] | | LAB | | | | [address];[place] | | | | | | [address] | | | | + + + [...] EXTERNAL | | | | performed at [facility], [address] | | LAB | | | | [place] [address], | | | | | | [place] [address] | | | | + + + [...] | | | | | performed at [facility], [address] | | | | | | [facility], | | | | | | [place] [address] | | | | + + + [...] | | | Fingerstick | performed at [facility];[address] | | LAB | | | | [address];[place], [place] | | | | | | [address] | | | | + + + [...] | | | Fingerstick | performed at [facility];[address] | | LAB | | | | [address];[place], [place] | | | | | | [address] | | | | + + + [...] | | | Fingerstick | performed at [facility];[address] | | LAB | | | | [address];[place] | | | | | | [address] | | | | + + + [...] EXTERNAL | | | | performed at [facility], [address] | | LAB | | | | [address], | | | | | | [place] [address] | | | | + + + [...] EXTERNAL | | | | performed at [facility], [address] | | LAB | | | | [place] [address], | | | | | | [place] [address] | | | | + + + [...] | | | | | performed at [facility], [address] | | | | | | [facility], | | | | | | [place] [address] | | | | + + + [...] | | | Fingerstick | performed at [facility];[address] | | LAB | | | | [address];[place], [place] | | | | | | [address] | | | | + + + [...] | | | Fingerstick | performed at [facility];[address] | | LAB | | | | [address];[place] | | | | | | [address] | | | | + + + [...] radial artery and a | | | 6-Latvian sheath was placed. The JL-3.5 catheter was [...] right radial artery and a | | 6-Latvian sheath was placed. The JL-3.5 catheter was [...] | | | Fingerstick | performed at [facility];[address] | | LAB | | | | [address];[place] | | | | | | [address] | | | | + + + + + + + + | Specimen | + + | | + + + +---------+ + + | Performing | Address | City/State/Zipcode | Phone Number | | Organization | | | | + +---------+ + + | EXTERNAL LAB | | | | + +---------+ + + [place] (08/08/2018 12:12 PM PST) + + + + + + | Component | Value | Ref Range | Performed | Pathologist | | | | | At | Signature | + + + + + + | [facility] [place] | 96.5 (H)Comment: | mg/L | EXTERNAL [...] + + + + + + | [place] | 1.50Comment: Reference | | EXTERNAL | | | a Free | range: 0.26 to | | LAB | | | Light [facility] | 1.65Testing performed at | | | | | Ratio | [facility], [address] | | | | | | [place] | | | | | | [address] | | | | + + + [...] | | Comp 4 | performed at [facility], [address] | | LAB | | | | [address], | | | | | | [place] [address] | | | | + + + [...] at | | | | | | [facility], [address] [facility] | | | | | | [place] | | | | | | [address] | | | | + + + [...] | | | | | [place] [address] | | | | + + + [...] | | | | | | at [facility], [address] | | | | | | [place] [address], | | | | | | [place] [address] | | | | + + + [...] | | | | | performed at [facility], [address] | | | | | | [facility], | | | | | | [place] [address] | | | | + + + [...] | | | | | performed at [facility], [address] | | | | | | [address] | | | | | | [place] [address] | | | | + + + [...] | | | | | with both VA-3 and | | | | | | [...] | | | 3 | performed by [facility], | | | | | | [address], | | | | | | [facility] [address] | | | | + + + [...] | | | | | | [place] [address] | | | | + + + [...] | | Quant, CSF | performed at [facility], | | | | | | [address], [address], | | | | | | [place] [address] | | | | + + + [...] EXTERNAL | | | | performed at [facility], [address] | | LAB | | | | [address], | | | | | | [place] [address] | | | | + + + [...] EXTERNAL | | | | performed at [facility], [address] | | LAB | | | | [address], | | | | | | [place] [address] | | | | + + + [...] | | | | | [place] [address] | | | | + + + [...] | | | Fingerstick | performed at [facility];[address] | | LAB | | | | [address];[place], [place] | | | | | | [address] | | | | + + + [...] | | | Fingerstick | performed at [facility];[address] | | LAB | | | | [address];[place], [place] | | | | | | [address] | | | | + + + [...] EXTERNAL | | | | performed at [facility], [address] | | LAB | | | | [facility], | | | | | | [place] [address] | | | | + + + [...] EXTERNAL | | | | performed at [facility], [address] | | LAB | | | | [address], | | | | | | [place] [address] | | | | + + + [...] | | | | | performed at [facility], [address] | | | | | | [facility], | | | | | | [place] [address] | | | | + + + [...] | | | Fingerstick | performed at [facility];[address] | | LAB | | | | [address];[place] | | | | | | [address] | | | | + + + [...] | | | Fingerstick | performed at [facility];[address] | | LAB | | | | [address];[place], [place] | | | | | | [address] | | | | + + + [...] | | | | | performed at [facility] | | | | | | [facility];[place] | | | | | | [address] | | | | + + + [...] | | | Fingerstick | performed at [facility];[address] | | LAB | | | | [address];[place] | | | | | | [address] | | | | + + + [...] | | at Ratio | performed at [facility], [address] | | LAB | | | | [facility], | | | | | | [place] [address] | | | | + + + [...] | | | | | performed at [facility], [address] | | | | | | [facility], | | | | | | [place] [address] | | | | + + + [...] LAB | | | | performed at [facility], [address] | | | | | [address], | | | | | | [place] [address] | | | | + + + [...] LAB | | | | performed at [facility], [address] | | | | | [address], | | | | | | [place] [address] | | | | + + + [...] | | | Fingerstick | performed at [facility];[address] | | LAB | | | | [address];[place], [place] | | | | | | [address] | | | | + + + [...] EXTERNAL | | | | performed at [facility], [address] | | LAB | | | | [address], | | | | | | [place] [address] | | | | + + + [...] EXTERNAL | | | | performed at [facility], [address] | | LAB | | | | [address], | | | | | | [place] [address] | | | | + + + [...] | | | | | performed at [facility], [address] | | | | | | [facility], | | | | | | [place] [address] | | | | + + + [...] | | | Fingerstick | performed at [facility];[address] | | LAB | | | | [address];[place], [place] | | | | | | [address] | | | | + + + [...] | | | Fingerstick | performed at [facility];[address] | | LAB | | | | [address];[place] | | | | | | [address] | | | | + + + [...] | A Brock: 0.60 m/s TV Dec Bond: 2.33 m/s2 TV Dec Time: | | | 240.52 ms TV E Brock: 0.56 m/s TV E/A Ratio: 0.92 | | | Wic Site Coordinator: GONZALO Authenticated by: Brynn Crawford MD Report Date/Time: | | | -- [id number] | | + + + + + [...] mlLAESV Index (A-L): 40.23 ml/m2LAAs A2C: 24.44 [id number] A-L | | A2C: 74.48 mlLALs A2C: 6.81 cmLAAs A4C: 21.96 [id number] A-L A4C: 68.67 mlLALs | | A4C: 5.96 cmRAAd: 13.73 fv2EXLXO A-L: 33.61 mlRAEDV MOD: 31.44 mlRALd: 4.76 | | cmEPSS: 2.39 cmAV maxP.50 mmHgAV meanP.57 mmHgAV Vmax: 1.76 m/John | | Vmean: 1.20 m/John VTI: 39.54 cmAVA Vmax: 2.19 cm2AVA (VTI): 2.37 pf6VNCM Vmax: | | 0.00 cm2/m2AVAI (VTI): 0.00 [...] 25.31 cmTV A Brock: 0.60 m/sTV Dec Bond: 2.33 m/s2TV | | Dec Time: 240.52 msTV E Brock: 0.56 m/sTV E/A Ratio: 0.92 Wic Site Coordinator: | | GDAuthenticated by: Brynn Crawford MDReport Date/Time: [id number] | | IMPRESSION: 1. Overall left ventricular [...] A Brock: 0.60 m/s | |TV Dec Bond: 2.33 m/s2 | |TV Dec Time: 240.52 ms | |TV E Brock: 0.56 m/s | |TV E/A Ratio: 0.92 | | | |Wic Site Coordinator: GD | |Authenticated by: Brynn Crawford MD | |Report Date/Time: -- [id number] | | | |IMPRESSION: | |1. Overall [...] LAB | | | | performed at [facility], [address] | | | | | | [address], | | | | | | [place] [address] | | | | + + + [...] - 1.030 | EXTERNAL | | | [place] | | | LAB | | + [...] | | | Urine | performed at [facility], [address] | | LAB | | | | [address], | | | | | | [place] [address] | | | | + + + [...] EXTERNAL | | | | performed at [facility];[address] | mmol/L | LAB | | | | [address];[place], [place] | | | | | | [address] | | | | + + + [...] | | | Fingerstick | performed at [facility];[address] | | LAB | | | | [address];[place], [place] | | | | | | [address] | | | | + + + [...] EXTERNAL | | | | performed at [facility], [address] | | LAB | | | | [address], | | | | | | [place] [address] | | | | + + + [...] | LAB | | | | [address], | | | | | | [place] [address] | | | | + + + [...] EXTERNAL | | | | performed at [facility], [address] | | LAB | | | | [address], | | | | | | [place] [address] | | | | + + + [...] | EXTERNAL | | | A1c | [facility] | | LAB | | | [...] | | | | | performed at [facility], [address] | | | | | | [facility], | | | | | | [place] [address] | | | | + + + [...] | | | | | performed at [facility];[address] | | | | | | [address] [facility];[place], [place] | | | | | | [address] | | | | + + + [...] | | | Fingerstick | performed at [facility];[address] | | LAB | | | | [address];[place], [place] | | | | | | [address] | | | | + + + [...] EXTERNAL | | | | performed at [facility];[address] | mmol/L | LAB | | | | [address]ae[address];[place] | | | | | | [address] | | | | + + + [...] | | | Fingerstick | performed at [facility];[address] | | LAB | | | | [address];[place] | | | | | | [address] | | | | + + + [...] LAB | | | | performed at [facility];[address] | | | | | | [address];[place], [place] | | | | | | [address] | | | | + + + [...] | | | Basophils | performed at [facility];[address] | K/uL | LAB | | | | [address];[place], [place] | | | | | | [address] | | | | + + + [...] | | | | | | MDRD IDOK traceable | | | | | | equation.Testing | | | | | | performed at [facility] | | | | | | [facility];[place], [place] | | | | | | [address] | | | | + + + [...] Diagnosis | + + | CAD in [place] artery Coronary atherosclerosis of [place] coronary artery | + + | Congestive heart failure, unspecified HF chronicity, unspecified heart failure type | | (HCC) | + + | Precordial pain | + + | Ischemic cardiomyopathy Other specified forms of chronic ischemic heart disease | + + documented in this encounter
--- OUTSIDE RECORDS SUMMARY | ~2019-06-26 | XMS | Encounter Summary ---
Demographics + + + | Address | [address] | | | [place] [address] | + + + | Home Phone | | + + + | Preferred Language | Unknown | + + + | Marital Status | | + + + | Amish Affiliation | [id number] | + + + | Race | Unknown | + + + | Ethnic Group | Unknown | + + + Author + + + | Author | [facility] | | | and [place] | + + + | Organization | [facility] | | | [...] Team Providers + +------+ + | Care Boat Mechanic Name | Role | Phone | + +------+ + | Bernadette Armendariz PA-C | PCP | | + +------+ + Reason for Referral Evaluate & Treat (Routine) +--------+ + + + + + | Status | Reason | Specialty | Diagnoses / | Referred By | Referred To | | | | | Procedures | Contact | Contact | +--------+ + + + + + | Closed | Specialty | Cardiology | Diagnoses | Maxood, | Ty, | | | Services | | Congestive | Сергей | MD Brynn | | | Required | | heart | MD Don | [address] | | | | | failure, | [address] | | | | | unspecified | St [place] | [place], [place] | | | | | HF | [place], [place] | [address] Phone: | | | | | chronicity, | [address] | [phone] | | | | | unspecified | Phone: | Fax: | | | | | heart | [phone] | [phone] | | | | | failure type | Fax: | | | | | | ([facility]) | [phone] | | | | | | Coronary [...] | | | | | | | agdaagux or | | | | | | | transplanted | | | | | | | heart | | | +--------+ + + + + + Reason for Visit + + + | Reason | Comments | + + + | Follow-up | | + + + Evaluate & Treat (Routine) +--------+--------+ + + + + | Status | Reason | Specialty | Diagnoses / | Referred By | Referred To | | | | | Procedures | Contact | Contact | +--------+--------+ + + + + | Closed | | Cardiology | Diagnoses | Kala, | Arnie, | | | | | CHF | Bernadette Shankar, | Сергей | | | | | (congestive | PA-C [address] | [address] | | | | | heart | [address] | [address] | | | | | failure) | [place] | [address] [place] | | | | | (HCC) | [address] | [facility], [place] | | | | | Procedures | [place], | [address] Phone: | | | | | 2 month | [place] | [phone] | | | | | follow up | [address] | Fax: | | | | | with | Phone: | [phone] | | | | | [place] | [phone] | | | | | | | Fax: | | | | | | | [phone] | | +--------+--------+ + + + + Encounter Details +--------+---------+ + + + | Date | Type | Department | Care Team | Description | +--------+---------+ + + + | 05/13/ | Office | [facility] | Сергей Gaitan | Congestive heart | | 2018 | Visit | CARDIOLOGY [address] | [address] | failure, unspecified | | | | [address] [place], | [address] [place] | HF chronicity, | | | | [place] [address] | [place] [address] | unspecified heart | | | | [phone] | [phone] | failure type (HCC) | | | | | | (Primary Dx); | | | | | | Myocardial | | | | | | infarction, | | | | | | unspecified ME type, | | | | | | unspecified artery | | | | | | (HCC); Essential | | | | | | hypertension; | | | | | | Cerebrovascular | | | | | | accident (CVA), | | | | | | unspecified | | | | | | mechanism (HCC); | | | | | | Heart disease; | | | | | | Coronary artery | | | | | | disease, angina | | | | | | presence | | | | | | unspecified, | | | | | | unspecified vessel | | | | | | or lesion type, | | | | | | unspecified whether | | | | | | agdaagux or | | | | | | [...] + | Blood Pressure | 112/62 | 05/13/2018 12:56 PM | | | | | PDT | | + + + + + | Pulse | 68 | 05/13/2018 12:56 PM | | | | | PDT | | + + + + + | Temperature | - | - | | + + + + + | Respiratory Rate | 18 | 05/13/2018 12:56 PM | | | | | PDT | | + + + + + | Oxygen Saturation | - | - | | + + + + + | Inhaled Oxygen | - | - | | | Concentration | | | | + + + + + | Weight | 83.2 kg (183 lb 6.8 | 05/13/2018 12:56 PM | | | | oz) | PDT | | + + + + + | Height | 160 cm (5' 3") | 05/13/2018 12:56 PM | | | | | PDT | | + + + + + | Body Mass Index | 32.49 | 05/13/2018 12:56 PM | | | | | PDT | | + + + + + documented in this encounter Progress Notes Сергей Gaitan MD - 05/13/2018 1:30 PM PDTFormatting of this note might be differe nt from the original. PATIENT NAME: Maria Ines Martin : 1955: AGE: 63 y.o. REFERRED BY: Bernadette Armendariz PRIMARY CARE: Bernadette Armendariz PA-C CARDIOLOGY OFFICE VISIT Date of Service: 05/13/18 HISTORY OF PRESENT ILLNESS: Maria Ines Martin is a 63 y.o. female with a history of tobacco and methamphetamine use, poorly c ontrolled diabetes, systolic and diastolic heart failure, and possible CAD. She is being se en today for a follow-up visit. Following our initial consultation, patient was recommended to undergo left heart catheterization coronary angiography, however this was canceled due t o a brief hospitalization. Patient now presents for follow-up in interested in proceeding w ith coronary angiography as previously scheduled. She states that she has been clean from m ethamphetamine as well as tobacco for several months now. She states that she has been deal ing with vascular disease and may need further procedures. Details are currently unavailabl e. Pertinent historical clinical information: She was initially referred by Bernadette Armendariz for further evaluation after a hospitalizat ion where she was diagnosed with acute on chronic systolic and diastolic heart failure. Alejandra rockwell has had a long-standing history of tobacco and methamphetamine use, and she states that she has been smoking both since her teenage years nonstop, and only stopped both proximally one month ago. She states that she was doing meth nonstop and daily for years. But now stephanie may has been drug-free for over 30 days, and states that "I want to live" and compliant with m edications. She has not been taking aspirin because she was under the impression she should not. She has not been taking lisinopril but has been taking recently prescribed carvedilol . She denies noncompliance with diuretics, taking torsemide [...] every 4 hours as needed for Pain. atorvaSTATin (LIPITOR) 10 mg tablet Take 1 tablet by mouth nightly. 90 tablet 1 carvedilol (COREG) 6.25 mg tablet Take 6.25 mg by mouth 2 times daily. doxycycline (MONODOX) 50 MG capsule Take 50 mg by mouth 2 times daily. fexofenadine (TIAN ALLERGY) 180 mg tablet Take 180 mg by mouth as needed. hydrOXYzine pamoate (VISTARIL) 25 mg capsule Take 25 mg by mouth 3 times daily as neede d for Itching. insulin glargine (LANTUS) 100 units/mL injection (vial) Inject 25 Units under the skin nightly. lisinopril (PRINIVIL, ZESTRIL) 10 mg tablet Take 1 tablet by mouth Daily. (Patient sergio rosales differently: Take 5 mg by mouth Daily.) 90 tablet 1 melatonin 1 mg TABS Take 1 mg by mouth nightly as needed. SM ASPIRIN ADULT LOW STRENGTH 81 MG EC tablet Take 81 mg by mouth Daily. torsemide (DEMADEX) 20 mg tablet Take 10 mg by mouth Daily. No current facility-administered medications for this visit. ALLERGIES Allergies Allergen Reactions Quinine Other (See Comments) hallucinations ROS I have reviewed the Review of Systems form dated today and scanned into the media tab. OBJECTIVE: PHYSICAL EXAM BP 112/62 | Pulse 68 | Resp 18 | Ht 1.6 m (5' 3") | Wt 83.2 kg (183 lb 6.8 oz) | BMI 3 2.49 kg/m Physical Exam Constitutional: She appears well-developed and well-nourished. She does not appear ill. No distress. Cardiovascular: Normal rate, regular rhythm, S1 normal, S2 normal, normal heart sounds and intact distal pulses. Pulses: Carotid pulses are 2+ on the right side, and 2+ on the left side. Radial pulses are 2+ on the right side, and 2+ on the left side. Pulmonary/Chest: Effort normal and breath sounds normal. Musculoskeletal: She exhibits no edema. Vitals reviewed. ECG: Reviewed by me 2018 notable for normal sinus rhythm, heart rate 65, lateral T-wave ab normalities consistent with ischemia, left axis deviation. Abnormal ECG. No significant ch jim compared with ECG of 01/31/18. LAB RESULTS: LIPID Lab Results Component Value Date LDL 72.6 03/19/2018 HDLEX 50 03/19/2018 TRIGEX 132 03/19/2018 CHOLEX 149 03/19/2018 CHEMISTRY Lab Results Component Value Date EGFREX 32 03/19/2018 HEMATOLOGY No results found for: WBC, HGB, HCT, PLT, HGBEX BNP No results found for: BNP A1C : Not in our Medical Record I previously reviewed records from [facility] for hospitalization,including H&P, Discharge Summary and lab reports on 01/27/18 and 01/31/18. Echocardiogram January 2013 results reviewed by me with the patient today LVEF 40-45%, grade 2 diastolic dysfunction, mild MR and TR, RVSP 44-49 mmHg. ASSESSMENT: 1. Chronic systolic and diastolic heart failure - patient would benefit from definitive ev aluation for occult CAD as a significant contributor to her cardiomyopathy given her numerou s coronary disease risk factors. Her ECG is abnormal at baseline and suggests lateral ische naldo. She would benefit from left heart catheterization and coronary angiography and underst ands the indications for the procedure as well as relevant risks and benefits and agrees to proceed. She may benefit from consideration of radial approach In terms of medical therapy, I have previously reviewed pathophysiology of heart failure and importance of neurohormonal blockade with the patient which was done once again today. She should continue on her curr ent carvedilol dose and I will start her on lisinopril beginning at 10 mg daily. We will re check chemistry panel thereafter as well as BNP. We once again reviewed the importance of lifestyle and dietary modification including fluid intake as well as sodium intake and monitoring her dry weight regularly. 2. Diabetes mellitus - patient appears to have had frequent glucose readings in the 200s. I do not have access to her HbA1c. We discussed importance of improved diabetic control an d correlation with vascular inflammation. 3. Tobacco cessation - patient states that she has been tobacco free for a few months now. I have congratulated her. 4. Dyslipidemia - given patient's history of [...] cessation and abstinence from and amphetamines. 3. Continue current medications. Improve compliance reinforced. 4. Check fasting lipid profile, chemistry panel and BNP. 5. Lifestyle and dietary modification recommendations. 6. Improved diabetic control. 7. Follow-up visit in a few weeks. Portions of this report were transcribed using voice recognition software. Every effort wa s made to ensure accuracy; however, inadvertent computerized organization development consultant errors may be pre sent. Electronically signed by: Kyler Gaitan MD PhD FACC 05/13/2018 documented in t his encounter Plan of Treatment +--------+---------+ + + + | Date | Type | Specialty | Care Team | Description | +--------+---------+ + + + | 09/27/ | Office | Nephrology | James Pearce MD | | | 2019 | Visit | | [address] [facility] | | | | | | [address] [place] | | | | | | [address] | | | | | | | | +--------+---------+ + + + + + +--------+ + + | Name | Type | Priori | Associated Diagnoses | Order Schedule | | | | ty | | | + + +--------+ + + | External Referral to | Outpatient | Routin | Congestive heart | Ordered: 05/16/2018 | | [facility] | Referral | e | failure, unspecified | | | Cardiology | | | HF chronicity, | | | | | | unspecified heart | | | | | | failure type ([facility]) | | | | | | Coronary artery | | | | | | disease, angina | | | | | | presence | | | | | | unspecified, | | | | | | unspecified vessel | | | | | | or lesion type, | | | | | | unspecified whether | | | | | | agdaagux or | | | | | | transplanted heart | | + + +--------+ + + documented as of this encounter Visit Diagnoses + + | Diagnosis | + + | Congestive heart failure, unspecified HF chronicity, unspecified heart failure type | | ([facility]) - Primary | + + | Myocardial infarction, unspecified ME type, unspecified artery (HCC) | + + | Essential hypertension Unspecified essential hypertension | + + | Cerebrovascular accident (CVA), unspecified mechanism (HCC) | + + | Heart disease Heart disease, unspecified | + + | Coronary artery disease, angina presence unspecified, unspecified vessel or lesion | | type, unspecified whether agdaagux or transplanted heart | + + documented in this encounter
--- OUTSIDE RECORDS SUMMARY | ~2019-06-26 | XMS | Encounter Summary ---
Demographics + + + | Address | [address] | | | [place] [address] | + + + | Home Phone | | + + + | Preferred Language | Unknown | + + + | Marital Status | | + + + | Rastafarian Affiliation | 1041 | + + + | Race | Unknown | + + + | Ethnic Group | Unknown | + + + Author + + + | Author | [facility] | | | and [place] | + + + | Organization | [facility] | | | and [place] | + + + | Address | Unknown | + + + | Phone | Unavailable | + + + Support + + +---------+ + | Name | Relationship | Address | Phone | + + +---------+ + | Bryan Martin | ECON | Unknown | | + + +---------+ + | Sachin Yuliya | ECON | Unknown | | + + +---------+ + | Bryan Martin | ECON | Unknown | | + + +---------+ + Care Team Providers + +------+ + | Care Technology Recruiter Name | Role | Phone | + +------+ + | Bernadette Armendariz PA-C | PCP | | + +------+ + Encounter Details +--------+ + + + + | Date | Type | Department | Care Team | Description | +--------+ + + + + | 02/23/ | Orders Only | [facility] | Provider, | Essential (primary) | | 2018 | | SYSTEM GENERIC OP | MD [address] | hypertension; Type 2 | | | | CONVERSION [address] | [address] | diabetes mellitus | | | | [address] [place], [place] | [place] [address] | with complications | | | | [address] | | ([facility]); Acute kidney | | | | [phone] | | failure ([facility]); | | | | | | Chronic kidney | | | | | | disease, stage IV | | | | | | (severe) ([facility]); | | | | | | Proteinuria; | | | | | | Secondary | | | | | | hyperparathyroidism | | | | | | of renal origin | | | | | | ([facility]); Vitamin D | | | | [...] | | | | | | [address] [place], [place] | | | | | | [address] | | | | | | | | +--------+---------+ + + + + +------+--------+ + + | Name | Type | Priori | Associated Diagnoses | Order Schedule | | | | ty | | | + +------+--------+ + + | Ferritin | Lab | Routin | Essential | [...] deficiency | | + +------+--------+ + + | CBC with | Lab | Routin | Essential | Expected: | | Differential | | e | (primary) | 02/02/2019, [...] deficiency | | + +------+--------+ + + | Ferritin | Lab | Routin | Essential | [...] deficiency | | + +------+--------+ + + | Parathyroid Hormone, | Lab | Routin | Essential | Expected: | | Intact | | e | (primary) | 02/02/2019, [...] origin | | | | | | ([facility]) Vitamin D | | | | | | deficiency | | + +------+--------+ + + | Vitamin D, | Lab | Routin | Essential | Expected: | | Deficiency Screen | | e | (primary) | 02/02/2019, Expires: | | (25-Hydroxy) | | | hypertension | 11/18/2019 | [...] origin | | | | | | ([facility]) Vitamin D | | | | | | deficiency | | + +------+--------+ + + | Urinalysis with | Lab | Routin | Essential | Expected: | | Microscopic if | | e | (primary) | 02/02/2019, Expires: | | Indicated | | | hypertension | 11/18/2019 | | | | | Chronic kidney | | | | | | disease, stage IV | | | | | | (severe) ([facility]) | | | | | | Proteinuria | | | | | | Secondary | | | | | | hyperparathyroidism | | | | | | of renal origin | | | | | | ([facility]) Vitamin D | | | | | | deficiency | | + +------+--------+ + + | Protein/Creatinine | Lab | Routin | Essential | Expected: | | Ratio, Urine | | e | (primary) | 02/02/2019, Expires: | | | | | hypertension | 11/18/2019 | | | | | Chronic kidney | | | | | | disease, stage IV | | | | | | (severe) ([facility]) | | | | | | Proteinuria | | | | | | Secondary | | | | | | hyperparathyroidism | | | | | | of renal origin | | | | | | ([facility]) Vitamin D | | | | [...] Acute kidney failure, unspecified | + + | Chronic kidney disease, [...]
--- OUTSIDE RECORDS SUMMARY | ~2019-06-26 | XMS | Encounter Summary ---
Demographics + + + | Address | [address] | | | [place] [address] | + + + | Home Phone [...] Team Providers + +------+ + | Care Banquet Steward Name | Role | Phone | + [...] + + | 06/22/ | Documentati | [facility] | Luis, | Results (06/17/19) | | 2019 | on | NEPHROLOGY [place] | [facility] | | | | | [address] | [address] | | | | | [address] [facility] [address] | | | | | | [place], [place] | | | | | | [address] | | | | | | [phone] | | | +--------+ + + + [...] Visit | | [address] [facility] | | | | | | [address] [place], [place] | | | | | | [address] | | | | | | | [...]
--- OUTSIDE RECORDS SUMMARY | ~2019-06-26 | XMS | Encounter Summary ---
Demographics + + + | Address | [address] | | | [place] [address] | + + + | Home Phone [...] Team Providers + +------+ + | Care Farm Agent Name | Role | Phone | + [...] + + | 11/14/ | Telephone | [facility] | Сергей Gaitan | Other (Testing, | | 2018 | | [facility] [address] | [address] | Labs) | | | | [place], | [address] [place] | | | | | [place] [address] | [place] [address] | | | | | [phone] | [phone] | | | | | | | [...] | | [address] [facility] | | | | | | [address] [facility] [place] | | | | | | [address] | | | | | | | [...]
--- OUTSIDE RECORDS SUMMARY | ~2019-06-26 | XMS | Encounter Summary ---
Demographics + + + | Address | [address] | | | [place] [address] | + + + | Home Phone | | + + + | Preferred Language | Unknown | + + + | Marital Status | | + + + | Restorationist Affiliation | 1041 | + + + | Race | Unknown | + + + | Ethnic Group | Unknown | + + + Author + + + | Author | [facility] | | | and [place] | + + + | Organization | [facility] | | | [...] Team Providers + +------+ + | Care Anthropological Linguist Name | Role | Phone | + +------+ + | Nathalie Castorena | PCP | | + +------+ + Encounter Details +--------+ + + + + | Date | Type | Department | Care Team | Description | +--------+ + + + + | 06/22/ | Orders Only | [facility] | James Pearce MD | Essential (primary) | | 2019 | | NEPHROLOGY [place] | [address] [place] | hypertension | | | | [address] | [address] [place], [place] | (Primary Dx); Anemia | | | | [address] | [address] | of chronic renal | | | | [place], [place] | | failure, stage 4 | | | | [address] | | (severe) ([facility]); CKD | | | | [phone] | | (chronic kidney | | | | | | disease), stage IV | | | | | | (HCC); Nephrotic | | | | | | range proteinuria | +--------+ + + + + Social [...] Visit | | [address] [facility] [place] | | | | | | [address] [place], [place] | | | | | | [address] | | | | | | | | +--------+---------+ + + + + +------+--------+ + + | Name | Type | Priori | Associated Diagnoses | Order Schedule | | | | ty | | | + +------+--------+ + + | Basic Metabolic | Lab | Routin | Essential | Expected: | | Panel | | e | (primary) | 06/29/2019, Expires: | | | | | hypertension CKD | 06/22/2020 | | | | | (chronic kidney | | | | | | disease), stage IV | | | | | | (HCC) Nephrotic | | | | | | range proteinuria | | + +------+--------+ + + | Renal Function Panel | Lab | Routin | Essential | Expected: | | | | e | (primary) | 09/21/2019, Expires: | | | | | hypertension CKD | 06/22/2020 | | | | | (chronic kidney | | | | | | disease), stage IV | | | | | | (HCC) Nephrotic | | | | | | range proteinuria | | + +------+--------+ + + | CBC with | Lab | Routin | Essential | Expected: | | Differential | | e | (primary) | 09/21/2019, Expires: | | | | | hypertension CKD | 06/22/2020 | | | | | (chronic kidney | | | | | | disease), stage IV | | | | | | (HCC) Nephrotic | | | | | | range proteinuria | | + +------+--------+ + + | Iron and Iron | Lab | Routin | Essential | Expected: | | Binding Capacity | | e | (primary) | 09/21/2019, Expires: | | | | | hypertension Anemia | 06/22/2020 | | | | | of chronic renal | | | | | | failure, stage 4 | | | | | | (severe) (HCC) CKD | | | | | | (chronic kidney | | | | | | disease), stage IV | | | | | | (HCC) Nephrotic | | | | | | range proteinuria | | + +------+--------+ + + | Ferritin | Lab | Routin | Essential | Expected: | | | | e | (primary) | 09/21/2019, Expires: | | | | | hypertension Anemia | 06/22/2020 | | | | | of chronic renal | | | | | | failure, stage 4 | | | | | | (severe) (HCC) CKD | | | | | | (chronic kidney | | | | | | disease), stage IV | | | | | | (HCC) Nephrotic | | | | | | range proteinuria | | + +------+--------+ + + | Parathyroid Hormone, | Lab | Routin | Essential | Expected: | | Intact | | e | (primary) | 09/21/2019, Expires: | | | | | hypertension CKD | 06/22/2020 | | | | | (chronic kidney | | | | | | disease), stage IV | | | | | | (HCC) Nephrotic | | | | | | range proteinuria | | + +------+--------+ + + documented as of this encounter Visit Diagnoses + + | Diagnosis | + + | Essential (primary) hypertension - Primary Unspecified essential hypertension | + + | Anemia of chronic renal failure, stage 4 (severe) (HCC) | + + | CKD (chronic kidney disease), stage IV (HCC) Chronic kidney disease, Stage IV | | (severe) | + + | Nephrotic range proteinuria Proteinuria | + + documented in this encounter"
--- OUTSIDE RECORDS SUMMARY | ~2019-06-26 | XMS | Encounter Summary ---
Demographics + + + | Address | [address] | | | [place] [address] | + + + | Home Phone | | + + + | Preferred Language | Unknown | + + + | Marital Status | | + + + | Zoroastrian Affiliation | 1041 | + + + | Race | Unknown | + + + | Ethnic Group | Unknown | + + + Author + + + | Author | [facility] | | | and [place] | + + + | Organization | [facility] | | | [...] Team Providers + +------+ + | Care Livestock Commission Agent Name | Role | Phone | + +------+ + | Nathalie Castorena | PCP | | + +------+ + Encounter Details +--------+ + + + + | Date | Type | Department | Care Team | Description | +--------+ + + + + | 03/10/ | Orders Only | [facility] | James Pearce MD | | | 2018 | | NEPHROLOGY [place] | [address] [place] | | | | | [address] [place] | [address] [place], [place] | | | | | [address] [place], [place] | [address] | | | | | [address] | | | | | | [phone] | | | +--------+ + + + [...] 2020 | Visit | | [address] [facility] | | | | | | [address] [place] | | | | | | [address] | | | | | | | | +--------+---------+ + + + documented as of this encounter Visit Diagnoses Not on filedocumented in this encounter"
--- OUTSIDE RECORDS SUMMARY | ~2019-06-26 | XMS | Encounter Summary ---
Demographics + + + | Address | [address] | | | [place] [address] | + + + | Home Phone | | + + + | Preferred Language | Unknown | + + + | Marital Status | | + + + | Congregation Affiliation | 1041 | + + + | Race | Unknown | + + + | Ethnic Group | Unknown | + + + Author + + + | Author | [facility] | | | and [place] | + + + | Organization | [facility] | | [...] Team Providers + +------+ + | Care Small Wind Energy Installer Name | Role | Phone | [...] + + | 03/10/ | Telephone | [facility] | Сергей Gaitan | Other (procedure | | 2017 | | [address] | MD Don [address] | cancellation) | | | | [address] [place], | [address] [place] | | | | | [place] [address] | [place] [address] | | | | | [phone] | [phone] | | | | | | | [...] 2020 | Visit | | [address] [facility] | | | | | | [address] [place] | | | | | | [address] | | | | | | | | +--------+---------+ + + + documented as of this encounter Visit Diagnoses Not on filedocumented in this encounter"
--- OUTSIDE RECORDS SUMMARY | ~2019-06-26 | XMS | Clinical Summary ---
Demographics + + + | Address | [address] | | | [place] [address] | + + + | Home Phone | | + + + | Preferred Language | Unknown | + + + | Marital Status | | + + + | Hindu Affiliation | Unknown | + + + [...] [address] | | | | | [address] | | + + + + + Care Team Providers + +------+ + | Care Fractionation Plant Supervisor Name | Role | Phone | + +------+ + PCP | Unavailable | + +------+ + Source Comments [facility] is fully live on both [facility] and [facility] In[facility] Allergies Not on File Medications Not on [...]
--- OUTSIDE RECORDS SUMMARY | ~2019-06-26 | XMS | Clinical Summary ---
Demographics + + + | Address | [address] | | | [place] [address] | + + + | Home Phone [...] [address] | | | | | [address] | | + + + + + Care Team Providers + +------+ + | Care Correctional Counselor/Case Manager Name | Role | Phone | + +------+ + PCP | Unavailable | + +------+ + Source Comments [facility] is fully live on both [facility] and [facility] In[facility] Allergies Not on File Medications Not on [...]
--- OUTSIDE RECORDS SUMMARY | ~2019-06-26 | XMS | Encounter Summary ---
Demographics + + + | Address | [address] | | | [place] [address] | + + + | Home Phone | | + + + | Preferred Language | Unknown | + + + | Marital Status | | + + + | Anabaptism Affiliation | 1041 | + + + | Race | Unknown | + + + | Ethnic Group | Unknown | + + + Author + + + | Author | [facility] | | | and [place] | + + + | Organization | [facility] | [...] Team Providers + +------+ + | Care General Office Assistant Name | Role | Phone | + +------+ + PCP | Unavailable | + +------+ + Encounter Details +--------+ + + + + | Date | Type | Department | Care Team | Description | +--------+ + + + + | 10/23/ | Hospital | [facility] | Cal Godinez, | | | 2000 | Encounter | MED CTR XRAY [address] | MD [address] [facility] | | | | | [place] | [place], [place] | | | | | [place] [address] | [address] | | | | | [phone] | | | +--------+ + + + [...] 2020 | Visit | | [address] [facility] | | | | | | [address] [place] | | | | | | [id number] | | | | | | | | +--------+---------+ + + + documented as of this encounter Visit Diagnoses Not on filedocumented in this encounter"
--- OUTSIDE RECORDS SUMMARY | ~2019-06-26 | XMS | Encounter Summary ---
Demographics + + + | Address | [address] | | | [place] [address] | + + + | Home Phone | | + + + | Preferred Language | Unknown | + + + | Marital Status | | + + + | Taoist Affiliation | 1041 | + + + | Race | Unknown | + + + | Ethnic Group | Unknown | + + + Author + + + | Author | [facility] | | | and [place] | + + + | Organization | [facility] | | [...] Team Providers + +------+ + | Care Bleach Mixer Name | Role | Phone | + +------+ + | Bernadette Armendariz PA-C | PCP | | + +------+ + Encounter Details +--------+ + + + + | Date | Type | Department | Care Team | Description | +--------+ + + + + | 03/17/ | Orders Only | [facility] | James Pearce MD | Essential (primary) | | 2019 | | NEPHROLOGY [place] | [address] [place] | hypertension; | | | | [address] [place] | [address] [place], [place] | Chronic kidney | | | | [address] [place], [place] | [address] | disease, stage IV | | | | [address] | | (severe) ([facility]); | | | | [phone] | | Proteinuria; | | | | | | Secondary | | | | | | hyperparathyroidism | | | | | | of renal origin | | | | | | ([facility]); Vitamin D | | | | [...] 2019 | Visit | | [address] [facility] [place] | | | | | | [address] [place], [place] | | | | | | [address] | | | | | | | [...]
--- OUTSIDE RECORDS SUMMARY | ~2019-06-26 | XMS | Encounter Summary ---
Demographics + + + | Address | [address] | | | [place] [address] | + + + | Home Phone | | + + + | Preferred Language | Unknown | + + + | Marital Status | | + + + | Muslim Affiliation | 1041 | + + + | Race | Unknown | + + + | Ethnic Group | Unknown | + + + Author + + + | Author | [facility] | | | and [place] | + + + | Organization | [facility] | | | [...] Team Providers + +------+ + | Care Marklogic Developer Name | Role | Phone | + +------+ + PCP | Unavailable | + +------+ + Encounter Details +--------+ + + + + | Date | Type | Department | Care Team | Description | +--------+ + + + + | 10/23/ | Hospital | [facility] | Cal Godinez, | | | 2000 | Encounter | MED CTR XRAY [address] | MD [address] [facility] | | | | | [place] | [place], [place] | | | | | [place] [address] | [address] | | | | | [phone] | | | +--------+ + + + [...] 2020 | Visit | | [address] [facility] | | | | | | [address] [place] | | | | | | [address] | | | | | | | | +--------+---------+ + + + documented as of this encounter Visit Diagnoses Not on filedocumented in this encounter"
--- OUTSIDE RECORDS SUMMARY | ~2019-06-26 | XMS | Encounter Summary ---
Demographics + + + | Address | [address] | | | [place] [address] | + + + | Home Phone | | + + + | Preferred Language | Unknown | + + + | Marital Status | | + + + | Roman Catholic Affiliation | 1041 | + + + | Race | Unknown | + + + | Ethnic Group | Unknown | + + + Author + + + | Author | [facility] | | | and [place] | + + + | Organization | [facility] | | | and [...] Team Providers + +------+ + | Care Lard Bleacher Name | Role | Phone | + +------+ + | Brenadette Armendariz PA-C | PCP | | + +------+ + Encounter Details +--------+ + + + + | Date | Type | Department | Care Team | Description | +--------+ + + + + | 11/12/ | Orders Only | [facility] | James Pearce MD | | | 2019 | | NEPHROLOGY [place] | [address] [place] | | | | | [address] [place] | [address] [place], [place] | | | | | [address] [facility] [facility] [place] | [address] | | | | | [address] | | | | | | [phone] | | | +--------+ + + + [...] Visit | | [address] [facility] | | | | | | [address] [place], [place] | | | | | | [address] | | | | | | | [...] | | | LAB | | | LITHUANIAN | | | | | + +---------+ [...]
--- OUTSIDE RECORDS SUMMARY | ~2019-06-26 | XMS | Clinical Summary ---
Demographics + + + | Address | [address] | | | [place] [address] | + + + | Home Phone | | + + + | Preferred Language | Unknown | + + + | Marital Status | | + + + | Hoahaoism Affiliation | 1041 | + + + | Race | Unknown | + + + | Ethnic Group | Unknown | + + + Author + + + | Author | [facility] | | | and [place] | + + + | Organization | [facility] | | | [...] Team Providers + +------+ + | Care Tester Electronic Scale Name | Role | Phone | + [...] + | Overview: Echocardiogram done at [facility] on 01/28/18 | | shows overall [...] Nephrology | James Pearce MD | Other ([facility]) | | 2019 | | | | | +--------+ + + + + | 06/22/ | Office | Nephrology | James Pearce MD | CKD (chronic kidney | | 2019 | Visit | | | disease), stage IV | | | | | | ([facility]) (Primary Dx); | | | | | | Anemia of chronic | | | | | | renal failure, stage | | | | | | 4 (severe) ([facility]); | | | | | | Essential [...] insulin | | | | | | ([facility]); Secondary | | | | | | hyperparathyroidism | | | | | | ([facility]); Nephrotic | | | | | | [...] | | | | | (severe) (HCC); CKD | | | | | | [...] Suarez | | | | | | Sports Leadership Instructor | | +--------+ + + + + [...] | Visit | | [address] [facility] | | | | | | [address] [place] | | | | | | [address] | | | | | | | [...] | | + +--------+ +--------+ +---------+--------+ | [facility] | IHS | [id number] | | | | Indemn | | SERVICE | YELLOW | | 018-Pr | | | ity | | | HAWK | | esent | | | | + +--------+ +--------+ +---------+--------+ | [employer] | [employer] | [id number] | 01/28/20 | [phone] | | Medica | | MEDICAID HMO | HEALTH | | 18-Pre | 1 | | id | | | MDCD | | sent | | | | | | [place] | | | | | | + +--------+ +--------+ +---------+--------+ | [facility] | IHS | [id number] | | | | Indemn | | SERVICE | YELLOW | | 018-Pr | | | ity | | | HAWK | | esent | | | | + +--------+ +--------+ +---------+--------+ | [employer] | [employer] | [id number] | 02/23/20 | [phone] | | Medica | | MEDICAID HMO [...] Person | Self | [birth year] | [address] | | | al/Fam | | 1954 | [phone] | [place] | | | jeni | | | 4 (Home) | [address] | + +--------+ +--------+ + + | Maria Ines Martin | Person | Self | [birth year] | [address] | | | al/Kyle | | 1955 | [phone] | [address] [place] | | | jeni | | | 2 (Home) | [address] | + +--------+ +--------+ + + Advance Directives + + + + + | Type | Date Recorded | Patient | Explanation | | | | Social Work Lecturer | | + + + + + | Power of | | | | | Dredge Mate | | | | + + + + + | Advance | | | | | Directive | | | | + + + + +
--- OUTSIDE RECORDS SUMMARY | ~2019-06-26 | XMS | Encounter Summary ---
Demographics + + + | Address | [address] | | | [place] [address] | + + + | Home Phone | | + + + | Preferred Language | Unknown | + + + | Marital Status | | + + + | Buddhist Affiliation | [id number] | + + + [...] Team Providers + +------+ + | Care Fiberglass Tube Molder Name | Role | Phone | + +------+ + | Bernadette Armendariz PA-C | PCP | | + +------+ + Encounter Details +--------+ + + + + | Date | Type | Department | Care Team | Description | +--------+ + + + + | 12/02/ | Hospital | [facility] | [facility], | Right sided weakness | | 2019 - | Encounter | [facility] | MD Edie Michaels | | | | | CLINICAL DECISION | [address] | | | 12/04/ | | [address] | [place] [address] | | | 2018 | | [place], [place] | [phone] | | | | | [address] | | | | | | [phone] | | | +--------+ + + + [...] | Blood Pressure | 172/79 | 12/04/2018 11:04 AM | | | | | PDT | | + + + + + | Pulse | 71 | 12/04/2018 11:04 AM | | | [...] Weight | 88.5 kg (195 lb) | 12/04/2018 11:04 AM | | | | | PDT | | + + + + + | Height | 160 cm (5' 3") | 12/04/2018 11:04 AM | | | | | PDT | | + + + + + | Body Mass Index | 34.54 | 12/04/2018 11:04 AM | | | | | PDT | | + + + + + documented in this encounter Discharge Summaries Toney Lowry MD - 12/04/2018 8:05 AM PDTFormatting of this note might be different from nilda king. Discharge Summaries by Toney Lowry MD at 12/04/18804 Author: Toney Lowry MD Service: (none) Author Type: Physician Filed: 12/04/18808 Date of Service: 12/04/18804 Status: Signed Ordnance Artificer Helper: Toney Lowry MD (Physician) [facility]: Hospitalist Physician Discharge Summary Patient ID: Maria Ines Martin [id number] 63 y.o. 1955 Admit date: 12/02/2018 Discharge date and time: 12/04/2018 Admitting Physician: Xenia Wilson MD Discharge Physician: Toney Lowry MD Consultants: Treatment Team: Admitting Provider: Xenia Wilson MD Discharge Diagnoses: Principal Problem: Right sided weakness Active Problems: Essential (primary) hypertension Type 2 diabetes mellitus with diabetic nephropathy, with long-term current use of insulin (HCC) Non-ischemic cardiomyopathy (HCC) CKD (chronic kidney disease), stage IV (HCC) Anemia of chronic renal failure, stage 4 (severe) (HCC) Secondary hyperparathyroidism (HCC) Visual changes Falls The first problem in the assessment and plan below is a primary discharge diagnosis unless specifically stated otherwise. HPI and Hospital Course: * 63 y.o.female past medical history of nonischemic cardia myopathy thought to be due to meth abuse which she has been abstaining for the last 1 year, hypertension, diabetes on insulin, chronic kidney disease stage IV, dyslipidemia who presented with right-sided weakness for t he last 1 week. On clinical examination patient's symptoms were consistent with CVA. Prabha presley was admitted to hospitalist service and she had work-up including echocardiogram that was improved with normal ejection fraction. No events on telemetry monitoring. Patient underwe nt MRI brain and MRA that was actually negative for any acute stroke or carotid stenosis. Patient was treated with aspirin and statin. She had problems with controlling her blood p ressure at home. We stopped her hydralazine, resumed her losartan 100 mg and added amlodipin e 5 mg and with that she has been doing quite well. Also continuing her Coreg at home dose. Patient was seen by PT OT and will be seen again by them today for final recommendation. 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 All questions were answered. Condition at discharge: stable as dictated above Primary discharge diagnosis: Right-sided weakness and uncontrolled blood hypertension Disposition: *Home Follow up: [facility] [address] [place] [address] Dictation and gear grinder or software, [employer], used which may contain error for similar s ounding words even after review. Personal communication requested for any clarification. Discharge Vitals: Vitals: 12/03/18 1925 12/03/18 2313 12/04/18 0452 12/04/18 0750 BP: 132/57 145/67 154/70 139/61 BP Location: Right upper arm Right upper arm Right upper arm Pulse: 70 74 64 64 Resp: 18 18 16 20 Temp: 98.6 F (37 C) 98.5 F (36.9 C) 97.9 F (36.6 C) 98.2 F (36.8 C) TempSrc: Oral Oral Oral SpO2: 98% 98% 98% 97% Weight: Height: Discharge Exam: General: Well nourished. Psych: Alert and oriented x 3. Calm, cooperative. Cardiovascular: Regular rate and rhythm, no murmurs, no thrills. Normal PMI. Respiratory: Clear to auscultation, no wheezing or crackles, breathing non labored. Gastrointestinal: Soft, non-tender, non-distended, positive bowel sounds. No HSM. Musculoskeletal: No edema in bilateral lower extremities. No joint swelling. Skin: Warm and dry, no rashes. Neck: No JVD, Trachea midline. Neurological: Mild right-sided Weakness 4/5 compared to left. No pronator drift or facial droop. Secondary Discharge Diagnoses AND Other Medical History: Past Medical History Diagnosis Date Acute renal failure (HCC) 08/05/2018 MIC (acute kidney injury) ([facility]) 08/08/2018 Asthma CAD (coronary artery disease) CHF (congestive heart failure) (HCC) CVA (cerebral vascular accident) (HCC) HTN (hypertension) Hyperlipidemia Myocardial infarct (HCC) Type 2 diabetes mellitus (HCC) Past Surgical History Procedure Laterality Date COLONOSCOPY Significant Diagnostic Studies: Mra Neck Without Contrast Result Date: 12/03/2018 MRI BRAIN WITHOUT CONTRAST; MRA BRAIN WITHOUT CONTRAST ; MRA NECK WITHOUT CONTRAST. CLINICA L INFORMATION: Stroke; Right-sided weakness. COMPARISON: CT head dated 12/02/2018 PROCEDURE: MRI Brain: Sagittal T2 FLAIR, axial T1 FLAIR, axial T2, axial T2 FLAIR, axial gradient, and axial diffusion-weighted imaging was obtained. MRA Brain: 3D [id number] MRA with MIP ref ormations. MRA neck: 2D [id number] MRA with MIP reformations. FINDINGS: MRI Brain: Brai n: No restricted diffusion. No susceptibility artifact. Mild focal areas of increased T2 a nd FLAIR signal seen within the supratentorial white matter and centrally within the vera th at are nonspecific but most likely on the basis of mild chronic white matter microvascular i schemic gliosis. Cranial cervical junction, pineal, pituitary, and corpus callosum unremark able. Ventricles and extra-axial fluid spaces: Normal. Sella, suprasellar cistern, and orbit s: Normal. Calvarium and extracranial soft tissues: Fatty atrophy of the bilateral parotid g lands. Paranasal sinuses and mastoid air cells: Trace amount of fluid within the mastoid sin uses. MRA Brain: Intracranial segments of the internal carotid arteries: Mild luminal irregu larity and narrowing of the bilateral intracranial internal carotid arteries without signifi cant stenosis. Middle cerebral arteries and major MCA branch vessels: Mild luminal narrowing within the proximal left middle cerebral artery. Anterior cerebral arteries and anterior co mmunicating artery: Patent anterior communicating artery. Question small thin stray baird wi thin the distal aspect of the A1 segment of the right anterior cerebral artery. Intracranial segments of the vertebral arteries and basilar artery: Bilateral vertebral arteries are cod ominant. No focal stenosis, dissection, or aneurysm. Posterior cerebral arteries: Normal. M RA neck: The distal common carotid arteries in proximal mid internal carotid arteries are wi eli patent without focal stenosis or dissection. The visualized vertebral arteries patent and are codominant 1. Probable mild chronic white matter microvascular ischemic gliosis. 2. Mild luminal narro wing within the intracranial portion of the bilateral internal carotid arteries without sign ificant stenosis. 3. Question small fenestration or stenosis of the distal A1 segment of the right anterior cerebral artery with patent anterior communicating artery. 4. No focal steno sis or dissection at the carotid bifurcations or proximal internal carotid arteries. Signed by: Ahmet Carcamo Chet Sign Date/Time: 12/03/2018 9:50 AM Mri Brain Without Contrast And Mra Head Result Date: 12/03/2018 MRI BRAIN WITHOUT CONTRAST; MRA BRAIN WITHOUT CONTRAST ; MRA NECK WITHOUT CONTRAST. CLINICA L INFORMATION: Stroke; Right-sided weakness. COMPARISON: CT head dated 12/02/2018 PROCEDURE: MRI Brain: Sagittal T2 FLAIR, axial T1 FLAIR, axial T2, axial T2 FLAIR, axial gradient, and axial diffusion-weighted imaging was obtained. MRA Brain: 3D [id number] MRA with MIP ref ormations. MRA neck: 2D xqlv-ln-edyhwr MRA with MIP reformations. FINDINGS: MRI Brain: Brai n: No restricted diffusion. No susceptibility artifact. Mild focal areas of increased T2 a nd FLAIR signal seen within the supratentorial white matter and centrally within the vera th at are nonspecific but most likely on the basis of mild chronic white matter microvascular i schemic gliosis. Cranial cervical junction, pineal, pituitary, and corpus callosum unremark able. Ventricles and extra-axial fluid spaces: Normal. Sella, suprasellar cistern, and orbit s: Normal. Calvarium and extracranial soft tissues: Fatty atrophy of the bilateral parotid g lands. Paranasal sinuses and mastoid air cells: Trace amount of fluid within the mastoid sin uses. MRA Brain: Intracranial segments of the internal carotid arteries: Mild luminal irregu larity and narrowing of the bilateral intracranial internal carotid arteries without signifi cant stenosis. Middle cerebral arteries and major MCA branch vessels: Mild luminal narrowing within the proximal left middle cerebral artery. Anterior cerebral arteries and anterior co mmunicating artery: Patent anterior communicating artery. Question small thin stray baird wi thin the distal aspect of the A1 segment of the right anterior cerebral artery. Intracranial segments of the vertebral arteries and basilar artery: Bilateral vertebral arteries are cod ominant. No focal stenosis, dissection, or aneurysm. Posterior cerebral arteries: Normal. M RA neck: The distal common carotid arteries in proximal mid internal carotid arteries are wi eli patent without focal stenosis or dissection. The visualized vertebral arteries patent and are codominant 1. Probable mild chronic white matter microvascular ischemic gliosis. 2. Mild luminal narro wing within the intracranial portion of the bilateral internal carotid arteries without sign ificant stenosis. 3. Question small fenestration or stenosis of the distal A1 segment of the right anterior cerebral artery with patent anterior communicating artery. 4. No focal steno sis or dissection at the carotid bifurcations or proximal internal carotid arteries. Signed by: Ahmet Carcamo Chet Sign Date/Time: 12/03/2018 9:50 AM Echo Cardiac Adult With Bubble Study Result Date: 12/03/2018 Patient Name: Maria Ines Martin Date of : 1955 Performing Physici an: JASON BUCIO MD IN DICATIONS Ischemic cerebrovascular event CONCLUSIONS 1. Overall left ventricular systolic function is normal with, an EF between 60 - 65 %. 2. There is moderate concentric left ventricular hypertrophy. 3. No interatrial shunt noted on color doppler and agitated saline contrast study. FINDINGS -------- ECG rhythm: Sinus rhythm. Study: A 2-dime nsional transthoracic echocardiogram with m-mode, spectral and color flow Doppler was perfom ed. Study: This was a technically adequate study. Left Ventricle: Overall left ventricular s ystolic function is normal with, an EF between 60 - 65 %. Left Ventricle: The left ventricle cavity size is normal. Left Ventricle: There is moderate concentric left ventricular hypert rophy. Left Ventricle: Pseudonormal LV diastolic filling pattern, consistent with elevated L A pressure and moderate dysfunction (Grade II). Right Ventricle: The right ventricle is norm al in size and function. Left Atrium: The left atrium is mildly dilated. Right Atrium: The r ight atrium is normal in size. Aortic Valve: The aortic valve is trileaflet, and appears eliceo tomically normal. No aortic stenosis or regurgitation. Mitral Valve: Normal appearing mitral valve. Mitral Valve: Mild mitral regurgitation is present. Mitral Valve: Mild mitral annul ar calcification present. Tricuspid Valve: The tricuspid valve appears structurally normal. Tricuspid Valve: Trace tricuspid regurgitation present. Tricuspid Valve: The right ventricul ar systolic pressure (pulmonary artery systolic pressure), as measured by Doppler, is 37.00m mHg. Pulmonic Valve: Pulmonic valve appears structurally normal. Pulmonic Valve: Trace pulm onic regurgitation. Pericardium: There is no pericardial effusion. IVC/Hepatic Veins: The in ferior vena cava is normal in size and collapses > 50 % with sniff, indicating normal centra l venous pressures. Thrombus: No clot visualized Contrast: Contrast study was performed with 1 iv injection of 8 ccs of agitated normal saline at rest. Contrast: No interatrial shunt n oted on color doppler and agitated saline contrast study. MEASUREMENTS Ao asc: 3.74 cm Ao sinus: 3.[address] junct: 3.00 cm IVC: 2.26 cm LA Major: 5.19 cm EDV (Teich): 96.17 ml IVSd: 1.68 cm LVIDd: 4.57 cm LVPWd: 1.59 cm LVOT Diam: 2.17 cm % FS: 36.08 % EF(Teich): 65.78 % ESV(Teich): 32.90 ml IVSs: 1.83 cm LVIDs: 2.92 cm L VPWs: 1.95 cm SV(Teich): 63.27 ml RA Major: 4.86 cm RVIDd: 3.34 cm LVEF MOD A2C: 6 7.22 % SV MOD A2C: 75.21 ml LVEF MOD A4C: 59.69 % SV MOD A4C: 59.77 ml EF Biplane: 6 3.09 % LVEDV MOD BP: 106.20 ml LVESV MOD BP: 39.19 ml LVEDV MOD A2C: 111.87 ml LVLd A2 C: 8.55 cm LVEDV MOD A4C: 100.13 ml LVLd A4C: 8.46 cm LVESV MOD A2C: 36.66 ml LVLs A 2C: 6.49 cm LVESV MOD A4C: 40.35 ml LVLs A4C: 6.22 cm LAESV(A-L): 69.88 ml LAESV Ind ex (A-L): 36.58 ml/m2 LAAs A2C: 22.52 cm2 LAESV A-L A2C: 77.43 ml LALs A2C: 5.56 cm LAAs A4C: 20.32 cm2 LAESV A-L A4C: 62.81 ml LALs A4C: 5.70 cm Junior: 13.50 cm2 RAEDV A-L: 27.25 ml RAEDV MOD: 27.63 ml RALd: 5.67 cm Ao Diam: 3.55 cm AV Cusp: 2.03 cm LA Diam: 4.21 cm LA/Ao: 1.18 %FS: 40.81 % EDV(Teich): 123.91 ml EF(Teich): 71.30 % ESV(Teich): 35.55 ml IVSd: 1.73 cm IVSs: 2.32 cm LVIDd: 5.10 cm LVIDs: 3.01 cm LV PWd: 1.42 cm LVPWs: 1.66 cm SV(Teich): 88.35 ml D-E Excursion: 1.83 cm E-F Billings: 0.07 m/s TAPSE: 2.80 cm HR: 74.10 BPM AV maxP.59 mmHg AV meanP.44 mmHg AV Vm ax: 1.46 m/s AV Vmean: 1.01 m/s AV VTI: 32.01 cm GISSELLE Vmax: 2.68 cm2 GISSELLE (VTI): 2.6 7 cm2 AVAI Vmax: 0.00 cm2/m2 AVAI (VTI): 0.00 cm2/m2 LVCI Dopp: 3.23 l/minm2 LVCO Dopp : 6.18 l/min HR: 72.25 BPM LVOT maxP.52 mmHg LVOT meanP.70 mmHg LVSI Dopp: 44.81 ml/m2 LVSV Dopp: 85.59 ml LVOT Vmax: 1.06 m/s LVOT Vmean: 0.80 m/s LVOT VTI: 23.10 cm MR maxP.93 mmHg MR Vmax: 4.89 m/s MV A Brock: 1.18 m/s MV DecT: 246.26 m s MV E Brock: 1.22 m/s MV E/A Ratio: 1.03 MV PHT: 69.49 ms MVA By PHT: 3.16 cm2 MV A D ur: 128.02 ms Septal e': 0.07 m/s Septal E/e': 16.22 Lateral e': 0.07 m/s Lateral E/ e': 15.77 P Vein D: 0.61 m/s P Vein S/D Ratio: 1.34 P Vein S: 0.83 m/s HR: 68.53 B PM PV maxP.32 mmHg PV meanP.83 mmHg PV Vmax: 0.91 m/s PV Vmean: 0.65 m/s PV VTI: 23.91 cm RAP: 5 mmHg RV S': 0.13 m/s RVSP: 37.00 mmHg TR maxP.00 mmHg TR Vmax: 2.82 m/s TV A Brock: 0.77 m/s TV Dec Billings: 2.83 m/s2 TV Dec Time: 277.60 ms TV E Brock: 0.78 m/s TV E/A Ratio: 1.01 Aircraft Instrument Repairer: Authenticated by: JASON BUCIO MD Report Date/Time: 12-03-2018 14:17:6 1. Overall left ventricular systolic function is normal with, an EF between 60 - 65 %. 2. T here is moderate concentric left ventricular hypertrophy. 3. No interatrial shunt noted on c olor doppler and agitated saline contrast study. LABS: CBC: Lab Results Component Value Date WBC 4.35 12/03/2018 RBC 3.32 (L) 12/03/2018 HGB 9.1 (L) 12/03/2018 HCT 27.5 (L) 12/03/2018 MCV 82.9 12/03/2018 MCH 27.4 12/03/2018 MCHC 33.0 12/03/2018 RDW 41.6 12/03/2018 PLT 132 (L) 12/03/2018 MPV 9.7 12/03/2018 DIFFTYPE AUTOMATED 12/03/2018 CMP: Lab Results Component Value Date NA 148 (H) 12/03/2018 K 4.7 12/03/2018 CL 120 (H) 12/03/2018 CO2 24 12/03/2018 ANIONGAP 9 12/03/2018 GLUF 130 (H) 12/03/2018 BUN 35 (H) 12/03/2018 CREATININE 1.74 (H) 12/03/2018 BCR 20 12/03/2018 CA 7.5 (L) 12/03/2018 CA 8.0 (L) 08/08/2018 PROT 4.6 (L) 12/03/2018 ALB 2.8 (L) 12/03/2018 GLOB 1.8 12/03/2018 BILITOT 0.2 12/03/2018 ALP 75 12/03/2018 AST 17 12/03/2018 ALT 13 12/03/2018 EGFR 30 (L) 12/03/2018 Albumin: Lab Results Component Value Date ALB 2.8 (L) 12/03/2018 Magnesium: Lab Results Component Value Date MG 1.7 12/03/2018 Phosphorus: Lab Results Component Value Date PHOS 4.5 11/12/2018 PT/INR: No results found for: PROTIME, INR Troponin: No results found for: TROPONINI Last 3 Troponin: No results found for: TROPONINI TSH: No results found for: TSH, TSHNEO Patient Instructions: Medication List START taking these medications amLODIPine 5 MG tablet QTY: 30 tablet Refills: 0 Commonly known as: NORVASC Take 1 tablet by mouth daily. losartan 100 MG tablet QTY: 30 tablet Refills: 0 Commonly known as: COZAAR Take 1 tablet by mouth daily. CHANGE how you take these medications ascorbic acid 500 MG tablet QTY: 30 tablet Refills: 11 Commonly known as: VITAMIN C Take 1 tablet by mouth daily. What changed: how much to take CONTINUE taking these medications acetaminophen 325 MG tablet Refills: 0 Commonly known as: TYLENOL albuterol (2.5 MG/3ML) 0.083% nebulizer solution Refills: 0 Commonly known as: PROVENTIL aspirin 81 MG EC tablet Refills: 0 atorvastatin 10 MG tablet Refills: 0 Commonly known as: LIPITOR carvedilol 6.25 MG tablet Refills: 0 Commonly known as: COREG Cholecalciferol 2000 units Tabs QTY: 90 tablet Refills: 2 Take 2,000 Units by mouth daily. ferrous sulfate (65 FE) 325 (65 FE) MG tablet QTY: 30 tablet Refills: 2 Take 1 tablet by mouth daily with breakfast. fexofenadine 180 MG tablet Refills: 0 Commonly known as: TIAN hydrOXYzine 25 MG tablet Refills: 0 Commonly known as: ATARAX insulin glargine 100 UNIT/ML injection Refills: 0 Commonly known as: LANTUS melatonin 1 MG tablet Refills: 0 mometasone-formoterol 100-5 MCG/ACT inhaler Refills: 0 Commonly known as: DULERA omeprazole 20 MG capsule Refills: 0 Commonly known as: PRILOSEC ondansetron 4 MG tablet Refills: 0 Commonly known as: ZOFRAN traMADol 50 MG tablet QTY: 30 tablet Refills: 0 Commonly known as: ULTRAM Take 1 tablet by mouth every 6 (six) hours as needed. You might also be taking other medications not listed above. If you have questions about an y of your other medications, talk to the person who prescribed them or your Primary Care Pro vider. STOP taking these medications doxycycline 50 MG tablet Commonly known as: ADOXA hydrALAZINE 25 MG tablet Commonly known as: APRESOLINE Where to Get Your Medications You can get these medications from any pharmacy Bring a paper prescription for each of these medications amLODIPine 5 MG tablet losartan 100 MG tablet Activity: activity as tolerated Diet: Cardiac Diet Discharge took more than 35 minutes, to include final examination, discussion of admission, and preparation of prescriptions, instructions for ongoing care, follow up and dictation of summary. There are no outpatient Patient Instructions on file for this admission. Follow-up with PMD and other physicians as directed. Signed: Toney Lowry 12/04/2018 8:05 AM documented in this encou nter Medications at Time of Discharge + + [...] + + + +---------+ + + | amLODIPine | Take 1 tablet by | | 0 | 12/05/19 | | | (NORVASC) 5 mg | mouth daily. | | | 19 [...] 325 (65 | | | 0 | 02/19/20 | | | Fe) MG tablet | [...] | fluticasone | | | 0 | //20 | | | (FLONASE) 50 | | | | 19 | | | mcg/nasal spray | | | | | | + + + +---------+ + + | hydrALAZINE | | | 0 | 03/20/20 | | | (APRESOLINE) 25 mg | | | | 19 | | | tablet | | | | | | + + + +---------+ + + | losartan (COZAAR) | Take 1 tablet by | | 0 | 12/05/19 | | | 100 MG tablet | mouth daily. | | | 19 | 0 | + + + +---------+ + + [...] Progress Notes Conversion Transaction, Provider Unknown - 12/04/2018 1:02 PM PDTFormatting of this note m ight be different from the original. Nurse Progress Note by Stephanie Calzada RN at 12/04/181301 Author: Stephanie Calzada RN Service: (none) Author Type: Registered Nurse Filed: 12/04/181301 Date of Service: 12/04/181301 Status: Signed Ordnance Artificer Helper: Stephanie Calzada RN (Registered Nurse) Discharge instructions reviewed. All questions answered. IV removed per protocol. Family at bedside to transport pt home. Scripts x 2 given with referral to outpatient PT. Stephanie Garcia RN onver federico Transaction, Provider Unknown - 12/04/2018 5:40 AM PDT Nurse Progress Note by Nichelle Renee RN at 12/04/18539 Author: Nichelle Renee RN Service: (none) Author Type: Registered Nurse Filed: 12/04/18539 Date of Service: 12/04/18539 Status: Signed Ordnance Artificer Helper: Nichelle Renee RN (Registered Nurse) Chart check complete onver federico Transaction, Provider Unknown - 12/04/2018 1:09 AM PDT Nurse Progress Note by Nichelle Renee RN at 12/04/18108 Author: Nichelle Renee RN Service: (none) Author Type: Registered Nurse Filed: 12/04/18109 Date of Service: 12/04/18108 Status: Signed Ordnance Artificer Helper: Nichelle Renee RN (Registered Nurse) Pt here as a TIA r/o, pt has some residual eye blurriness and vertigo and denies weakness o r numbness/tingling to any extremities. Pt has family at bedside. Pt has chronic grunting that she is unaware of and it was reported to this RN has to do with drug use in the past. onver federico Transaction, Provider Unknown - 12/03/2018 6:38 PM PDT Nurse Progress Note by Francy Orantes RN at 12/03/18 1838 Author: Francy Orantes RN Service: (none) Author Type: Registered Nurse Filed: 12/03/18 1840 Date of Service: 12/03/188 Status: Signed Ordnance Artificer Helper: Francy Orantes RN (Registered Nurse) Chart check complete. Francy Orantes 12/03/18 6:39 PM onver federico Transaction, Provider Unknown - 12/03/2018 2:30 PM PDT Nurse Progress Note by Francy Orantes RN at 12/03/18 1430 Author: Francy Orantes RN Service: (none) Author Type: Registered Nurse Filed: 12/03/18 1431 Date of Service: 12/03/18 1430 Status: Signed Ordnance Artificer Helper: Francy Orantes RN (Registered Nurse) 135/65, holding additional norvac 5mg at this time. onver federico Transaction, Provider Unknown - 12/03/2018 1:17 PM PDT Case Management by Lisa Burns RN at 12/03/18 1317 Author: Lisa Burns RN Service: (none) Author Type: Registered Nurse Filed: 12/03/18 1328 Date of Service: 12/03/18 1317 Status: Addendum Ordnance Artificer Helper: Lisa Burns RN (Registered Nurse) Related Notes: Original Note by Lisa Burns RN (Registered Nurse) filed at 12/03/18 1 324 12/03/18 1300 Discharge Planning Evaluation Admitting Diagnosis Vision distrubrances Readmission No Living Arrangements Spouse/significant other;Family members Support Systems Spouse/significant other;Family members Type of Residence Private residence House type House-1 story Steps to enter 1 Bathrooms on 1st Floor 1-Full Independent with ADL's Yes Independent with Mobility Yes Home Care Services No Caregiver after Discharge Yes Caregiver Name Bryan Martin Relationship to Patient spouse Phone number [phone] Mental Status Oriented Prior functional status independent Power of Cat Dog Or Other Pet Groomer No Anticipated Discharge Plan Post Acute Care Needs None at this time Plan communicated to patient/family Yes Resources Financial concerns No Transportation issues No Patient/Family concerns No Prescription Plan Yes Name of Pharmacy [facility] Previous home health equipment Yes ( walker) Vascular access device No Ostomy/Drains/Appliances No Anticipated Disposition Facility Type Home Met with patient and discussed discharge planning, Pt is a 63 y.o., female with vertigo and rt side weakness. Pt lives on the [facility] w/spouse and several other famil y members in a small house. Pt states, that she lost her main house of 28 yrs and was "disp laced" on the [facility]. She and her have been living with her sister and several other people. She claims she sleeps on the the floor and there is not much mobility to mov e around-she can not accommodate a walker in the current house. Pt claims, the [facility] is working on a new place but she did not want to talk about any of the plans for housing or why she was displaced from the original home. Patient's PCP is: [facility] Patient's insurance: Medicaid//[employer] Coverage concerns: none Medication coverage/concerns: none Rx Bedside Delivery: Community resources utilized / needed: tbd Assistance in transportation: pov w/ spouse or family member Identification of any specific education / training: tbd Barriers to Discharge / Alternative housing needed: none Anticipated DCP: Home vs tbd Heather Burns RN,BSN,CM onver federico Transaction, Provider Unknown - 12/03/2018 11:43 AM PDT Nurse Progress Note by Francy Orantes RN at 12/03/18 5493 Author: Francy Orantes RN Service: (none) Author Type: Registered Nurse Filed: 12/03/18 7288 Date of Service: 12/03/181142 Status: Signed Ordnance Artificer Helper: Francy Orantes RN (Registered Nurse) Telephone order to givwe ordered 5mg of norvasc now then recheck BP in 2 hours, if SBP> 150 , give additional 5mg. Francy Orantes 12/03/18 11:43 AM onver federico Transaction, Provider Unknown - 12/03/2018 8:45 AM PDT Nurse Progress Note by Francy Orantes RN at 12/03/18844 Author: Francy Orantes RN Service: (none) Author Type: Registered Nurse Filed: 12/03/18844 Date of Service: 12/03/18844 Status: Signed Ordnance Artificer Helper: Francy Orantes RN (Registered Nurse) New order per Dr. Lowry to administer scheduled BP meds at this time. Toney Cornejo MD - 12/03/2018 8:31 AM PDTFormatting of this note might be different from the origi nal. Progress Notes by Toney Lowry MD at 12/03/18830 Author: Toney Lowry MD Service: (none) Author Type: Physician Filed: 12/03/18843 Date of Service: 12/03/18830 Status: Signed Ordnance Artificer Helper: Toney Lowry MD (Physician) [facility] Service: Hospitalist Progress Note Hospital Day: LOS: 0 days Consultants: Treatment Team: Admitting Provider: Xenia Wilson MD The first problem in assessment is the principal problem. ASSESSMENT/ PLAN 1. Right-sided weakness: Most likely symptoms appear to be consistent with CVA. Will star t patient on aspirin 81 mg, statin high-dose. Currently pending MRI brain and MRA neck and echocardiogram. We will continue telemetry monitoring. Will check A1c and lipid panel. Discussed with patient about strict blood pressure control. Symptoms have been for the las t 1 week so can start controlling blood pressure now. Will continue Coreg 6.25, hold hydral azine and start losartan 100 mg daily and will add amlodipine if needed. We will follow-up with PT OT and speech therapy evaluation. Patient will need 1 more night in the hospital fo r management of same. Will change to inpatient. 2. 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 last echocardiogram with stable EF. Medications as above. no need for diuretics 3. Chronic kidney disease stage IV follows with nephrology as an outpatient will start ARB as above otherwise hemoglobin stable monitor for now outpatient follow-up. 4. Diabetes mellitus: Check A1c. Continue with home dose of Lantus and sliding scale. 5. GERD on high-dose PPI . Will DC famotidine 6. Constipation we will start patient on senna Colace 2 tabs p.o. twice daily and stop aft er couple bowel movements. 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 Personal communication requested for any clarification. SUBJECTIVE Events Overnight: *Patient denies any new complaints except for some nausea for the last 2 hours but no vomiting. No bowel movements for the last 2 days but no abdominal pain OBJECTIVE General: Well nourished. Psych: Alert and oriented x 3. Calm, cooperative. Cardiovascular: Regular rate and rhythm, no murmurs, no thrills. Normal PMI. Respiratory: Clear to auscultation, no wheezing or crackles, breathing non labored. Gastrointestinal: Soft, non-tender, non-distended, positive bowel sounds. No HSM. Musculoskeletal: No edema in bilateral lower extremities. No joint swelling. Neck: No JVD, Trachea midline. Neurological: Right-sided weakness 4/5 compared to left otherwise nonfocal no pronator drif t. PROBLEM LIST Principal Problem: Right sided weakness Active Problems: Essential (primary) hypertension Type 2 diabetes mellitus with diabetic nephropathy, with long-term current use of insulin ([facility]) Non-ischemic cardiomyopathy (HCC) CKD (chronic kidney disease), stage IV (HCC) Anemia of chronic renal failure, stage 4 (severe) ([facility]) Secondary hyperparathyroidism (HCC) Visual changes [place] PMH Past Medical History Diagnosis Date Acute renal failure ([facility]) 08/05/2018 MIC (acute kidney injury) ([facility]) 08/08/2018 Asthma CAD (coronary artery disease) CHF (congestive heart failure) ([facility]) CVA (cerebral vascular accident) ([facility]) HTN (hypertension) Hyperlipidemia Myocardial infarct (HCC) Type 2 diabetes mellitus ([facility]) HOME MEDICATIONS Prior to Admission medications Medication Sig Start Date End Date Taking? Authorizing Provider acetaminophen (TYLENOL) 325 MG tablet Take 325 mg by mouth every 6 (six) hours as needed fo r Pain. Yes Historical Provider albuterol (PROVENTIL) (2.5 MG/3ML) 0.083% nebulizer solution Take 2.5 mg by nebulization ev tanner 6 (six) hours as needed for Wheezing. Yes Historical Provider ascorbic acid (VITAMIN C) 500 MG tablet Take 1 tablet by mouth daily. Patient taking differently: Take 1,000 mg by mouth daily. 08/11/18 08/11/19 Yes Gustavo Castorena MD aspirin 81 MG EC tablet Take 81 mg by mouth daily. Yes Historical Provider atorvastatin (LIPITOR) 10 MG tablet Take 10 mg by mouth nightly. Yes Historical Provider carvedilol (COREG) 6.25 MG tablet Take 6.25 mg by mouth 2 (two) times daily with meals. Y es Historical Provider cholecalciferol 2000 units TABS Take 2,000 Units by mouth daily. 08/11/18 08/11/19 Yes Gustavo Castorena MD doxycycline (ADOXA) 50 MG tablet Take 50 mg by mouth 2 (two) times daily. Yes Historical Provider ferrous sulfate, 65 FE, 325 (65 FE) MG tablet Take 1 tablet by mouth daily with breakfast. 08/11/18 08/11/19 Yes Gustavo Castorena MD fexofenadine (TIAN) 180 MG tablet Take 180 mg by mouth as needed. Yes Historical Provi pattie hydrALAZINE (APRESOLINE) 25 MG tablet Take 3 tablets by mouth 3 (three) times daily. 9 08/11/19 Yes Gustavo Castorena MD hydrOXYzine (ATARAX) 25 MG tablet Take 25 mg by mouth 3 (three) times daily as needed for I tching. Yes Historical Provider insulin glargine (LANTUS) 100 UNIT/ML injection Inject 9 Units into the skin every morning. Yes Historical Provider melatonin 1 MG tablet Take 6 mg by mouth nightly as needed. Yes Historical Provider omeprazole (PRILOSEC) 20 MG capsule Take 20 mg by mouth every morning before breakfast. Y es Historical Provider ondansetron (ZOFRAN) 4 MG tablet Take 4 mg by mouth 3 (three) times daily as needed for [place]. Yes Historical Provider mometasone-formoterol (DULERA) 100-5 MCG/ACT inhaler Inhale 2 puffs into the lungs 2 (two) times daily. Historical Provider traMADol (ULTRAM) 50 MG tablet Take 1 tablet by mouth every 6 (six) hours as needed. Patient not taking: Reported on 12/02/2018 08/11/18 Gustavo Castorena MD DATA Vital Signs: BP 192/86 (BP Location: Left upper arm) | Pulse 72 | Temp 98 F (36.7 C) (Oral) | Res p 18 | Ht 1.6 m (5' 3") | Wt 88.5 kg (195 lb) | SpO2 100% | ? No | BMI 34. 54 kg/m Vitals: 12/02/18 2130 12/03/18 0120 12/03/18 0722 BP: (!) 201/88 192/86 BP Location: Left upper arm Left upper arm Pulse: 72 81 72 Resp: 16 16 18 Temp: 98.3 F (36.8 C) 97.9 F (36.6 C) 98 F (36.7 C) TempSrc: Oral Oral Oral SpO2: 99% 100% 100% Weight: 88.5 kg (195 lb) Height: 1.6 m (5' 3") No intake or output data in the 24 hours ending 12/03/18 0831 CBC: Lab Results Component Value Date WBC 4.35 12/03/2018 RBC 3.32 (L) 12/03/2018 HGB 9.1 (L) 12/03/2018 HCT 27.5 (L) 12/03/2018 MCV 82.9 12/03/2018 MCH 27.4 12/03/2018 MCHC 33.0 12/03/2018 RDW 41.6 12/03/2018 PLT 132 (L) 12/03/2018 MPV 9.7 12/03/2018 DIFFTYPE AUTOMATED 12/03/2018 CMP: Lab Results Component Value Date NA 148 (H) 12/03/2018 K 4.7 12/03/2018 CL 120 (H) 12/03/2018 CO2 24 12/03/2018 ANIONGAP 9 12/03/2018 GLUF 130 (H) 12/03/2018 BUN 35 (H) 12/03/2018 CREATININE 1.74 (H) 12/03/2018 BCR 20 12/03/2018 CA 7.5 (L) 12/03/2018 CA 8.0 (L) 08/08/2018 PROT 4.6 (L) 12/03/2018 ALB 2.8 (L) 12/03/2018 GLOB 1.8 12/03/2018 BILITOT 0.2 12/03/2018 ALP 75 12/03/2018 AST 17 12/03/2018 ALT 13 12/03/2018 EGFR 30 (L) 12/03/2018 Magnesium: Lab Results Component Value Date MG 1.7 12/03/2018 Phosphorus: Lab Results Component Value Date PHOS 4.5 11/12/2018 PT/INR: No results found for: PROTIME, INR PTT: No results found for: APTT[APTT Imaging @IMAGES@ Scheduled Medications aspirin 81 mg Oral Daily with breakfast atorvastatin 80 mg Oral Nightly bisacodyl 10 mg Rectal Once budesonide-formoterol 2 puff Inhalation 2 times daily carvedilol 6.25 mg Oral BID WC famotidine 20 mg Oral Daily Or famotidine 20 mg Intravenous Daily heparin (porcine) 5000 unit/0.5mL 5,000 Units Subcutaneous 2 times per day insulin glargine 9 Units Subcutaneous QAM insulin lispro (human) 0-3 Units Subcutaneous Nightly insulin lispro (human) 0-6 Units Subcutaneous TID AC losartan 100 mg Oral Daily pantoprazole 40 mg Oral BID AC Continuous Infusions dextrose promethazine PRN Medications acetaminophen OR acetaminophen, albuterol, dextrose, dextrose, dextrose, docusate sodiu m, glucagon, glucagon, labetalol, melatonin, ondansetron OR ondansetron, polyethylene gl ycol, promethazine Toney Lowry MD 12/03/20188:31 AM onversion Transaction, Provider Unknown - 12/03/2018 7:40 AM PDTFormatting of this note might be different from th e original. Nurse Progress Note by Francy Orantes RN at 12/03/1840 Author: Francy Orantes RN Service: (none) Author Type: Registered Nurse Filed: 12/03/18 0743 Date of Service: 12/03/18739 Status: Signed Ordnance Artificer Helper: Francy Orantes RN (Registered Nurse) Per Dr. Kale, orders to hold BP meds until MRI results are back. Pt requesting nausea medic ation other than zofran stating it did not help. New orders for Phenergan. Francy Lamberto 12/03/18 7:42 AM onver federico Transaction, Provider Unknown - 12/03/2018 6:00 AM PDT Nurse Progress Note by Jael Ford RN at 12/03/18599 Author: Jael Ford RN Service: (none) Author Type: Registered Nurse Filed: 12/03/18 0745 Date of Service: 12/03/18599 Status: Signed Ordnance Artificer Helper: Jael Ford RN (Registered Nurse) Chart check audit complete. onver federico Transaction, Provider Unknown - 12/03/2018 1:23 AM PDT Pharmacy Note by Tia Hodge RPH at 12/03/18122 Author: Tia Hodge RPH Service: Pharmacy Author Type: Pharmacist Filed: 12/03/18122 Date of Service: 12/03/18122 Status: Signed Ordnance Artificer Helper: Tia Hodge RPH (Pharmacist) Clinical Pharmacy Note: Renal Monitoring Height: 160 cm Weight: 88.5 kg Serum Creatinine: 2.07 mg/dL (12/02/18 at [facility]) Estimated creatinine clearance - Cockcroft-Gault CrCl: 30 mL/min Pharmacy dosing for renal function per Dr. Vargas. Will order the following dosage adjustments: Pepcid 20 mg IV/PO Q24H Pharmacy will continue to follow and adjust medications as needed. TIA HODGE Pharmacist 12/03/2018 1:22 AM docume nted in this encounter Plan of Treatment +--------+---------+ + + + | Date | Type | Specialty | Care Team | Description | +--------+---------+ + + + | 09/27/ | Office | Nephrology | James Pearce MD | | | 2019 | Visit | | [address] [facility] | | | | | | [address] | | | | | | [address] | | | | | | | | +--------+---------+ + + + documented as of this encounter Procedures + +--------+ + + + | Procedure Name | Priori | Date/Time | Associated Diagnosis | Comments | | | ty | | | | + +--------+ + + + | POC GLUCOSE | Routin | 12/04/2018 | | Results for this | | | e | 11:07 AM | | procedure are in the | | | | PDT | | results section. | + +--------+ + + + | POC GLUCOSE | Routin | 12/04/2018 | | Results for this | | | e | 5:55 AM | | procedure are in the | | | | PDT | | results section. | + +--------+ + + + | POC GLUCOSE | Routin | 12/03/2018 | | Results for this | | | e | 9:21 PM | | procedure are in the | | | | PDT | | results section. | + +--------+ + + + | POC GLUCOSE | Routin | 12/03/2018 | | Results for this | | | e | 4:46 PM | | procedure are in the | | | | PDT | | results section. | + +--------+ + + + | POC GLUCOSE | Routin | 12/03/2018 | | Results for this | | | e | 11:23 AM | | procedure are in the | | | | PDT | | results section. | + +--------+ + + + | ECHO COMPLETE W | Routin | 12/03/2018 | | Results for this | | CONTRAST | e | 7:53 AM | | procedure are in the | | | | PDT | | results section. | + +--------+ + + + | EXTERNAL LAB: CBC | Routin | 12/03/2018 | | Results for this | | | e | 6:54 AM | | procedure are in the | | | | PDT | | results section. | + +--------+ + + + | LIPID PANEL | Routin | 12/03/2018 | | Results for this | | | e | 6:54 AM | | procedure are in the | | | | PDT | | results section. | + +--------+ + + + | MAGNESIUM | Routin | 12/03/2018 | | Results for this | | | e | 6:54 AM | | procedure are in the | | | | PDT | | results section. | + +--------+ + + + | HEMOGLOBIN A1C | Routin | 12/03/2018 | | Results for this | | | e | 6:54 AM | | procedure are in the | | | | PDT | | results section. | + +--------+ + + + | BILIRUBIN, DIRECT | Routin | 12/03/2018 | | Results for this | | | e | 6:54 AM | | procedure are in the | | | | PDT | | results section. | + +--------+ + + + | COMPREHENSIVE | Routin | 12/03/2018 | | Results for this | | METABOLIC PANEL | e | 6:54 AM | | procedure are in the | | | | PDT | | results section. | + +--------+ + + + | POC GLUCOSE | Routin | 12/03/2018 | | Results for this | | | e | 5:56 AM | | procedure are in the | | | | PDT | | results section. | + +--------+ + + + | POC GLUCOSE | Routin | 12/03/2018 | | Results for this | | | e | 12:55 AM | | procedure are in the | | | | PDT | | results section. | + +--------+ + + + | MRI ANGIOGRAM NECK | Routin | 12/03/2018 | | Results for this | | WO CONTRAST | e | 12:29 AM | | procedure are in the | | | | PDT | | results section. | + +--------+ + + + | MRI BRAIN WO | Routin | 12/03/2018 | | Results for this | | CONTRAST ANGIOGRAM | e | 12:29 AM | | procedure are in the | | HEAD WO CONTRAST | | PDT | | results section. | + +--------+ + + + | URINALYSIS WITH | Routin | 12/02/2018 | | Results for this | | MICROSCOPIC IF | e | 11:11 PM | | procedure are in the | | INDICATED | | PDT | | results section. | + +--------+ + + + | URINALYSIS, | Routin | 12/02/2018 | | Results for this | | MICROSCOPIC ONLY | e | 11:11 PM | | procedure are in the | | | | PDT | | results section. | + +--------+ + + + documented in this encounter Results POC Glucose (12/04/2018 11:07 AM PDT) + + + + + + | Component | Value | Ref Range | Performed | Pathologist | | | | | At | Signature | + + + + + + | Glucose, | 166 (H)Comment: Testing | 65 - 99 mg/dL | EXTERNAL | | | Fingerstick | performed at [facility];[address] | | LAB | | | | [address];[place] | | | | | | [address] | | | | + + + + + + + + | Specimen | + + | | + + + +---------+ + + | Performing | Address | City/State/Zipcode | Phone Number | | Organization | | | | + +---------+ + + | EXTERNAL LAB | | | | + +---------+ + + POC Glucose (12/04/2018 5:55 AM PDT) + + + + + + | Component | Value | Ref Range | Performed | Pathologist | | | | | At | Signature | + + + + + + | Glucose, | 139 (H)Comment: Testing | 65 - 99 mg/dL | EXTERNAL | | | Fingerstick | performed at [facility];[address] | | LAB | | | | [address];[place] | | | | | | [address] | | | | + + + + + + + + | Specimen | + + | | + + + +---------+ + + | Performing | Address | City/State/Zipcode | Phone Number | | Organization | | | | + +---------+ + + | EXTERNAL LAB | | | | + +---------+ + + POC Glucose (12/03/2018 9:21 PM PDT) + + + + + + | Component | Value | Ref Range | Performed | Pathologist | | | | | At | Signature | + + + + + + | Glucose, | 149 (H)Comment: Testing | 65 - 99 mg/dL | EXTERNAL | | | Fingerstick | performed at [facility];[address] | | LAB | | | | [address];[place] | | | | | | [address] | | | | + + + + + + + + | Specimen | + + | | + + + +---------+ + + | Performing | Address | City/State/Zipcode | Phone Number | | Organization | | | | + +---------+ + + | EXTERNAL LAB | | | | + +---------+ + + POC Glucose (12/03/2018 4:46 PM PDT) + + + + + + | Component | Value | Ref Range | Performed | Pathologist | | | | | At | Signature | + + + + + + | Glucose, | 171 (H)Comment: Testing | 65 - 99 mg/dL | EXTERNAL | | | Fingerstick | performed at [facility];[address] | | LAB | | | | [address];[place], [place] | | | | | | [address] | | | | + + + + + + + + | Specimen | + + | | + + + +---------+ + + | Performing | Address | City/State/Zipcode | Phone Number | | Organization | | | | + +---------+ + + | EXTERNAL LAB | | | | + +---------+ + + POC Glucose (12/03/2018 11:23 AM PDT) + + + + + + | Component | Value | Ref Range | Performed | Pathologist | | | | | At | Signature | + + + + + + | Glucose, | 147 (H)Comment: Testing | 65 - 99 mg/dL | EXTERNAL | | | Fingerstick | performed at [facility];[address] | | LAB | | | | [address];[place] | | | | | | [address] | | | | + + + + + + + + | Specimen | + + | | + + + +---------+ + + | Performing | Address | City/State/Zipcode | Phone Number | | Organization | | | | + +---------+ + + | EXTERNAL LAB | | | | + +---------+ + + ECHO Complete w Contrast (12/03/2018 7:53 AM PDT) + + | Specimen | + + | | + + + + + | Impressions | Performed At | + + + | 1. Overall left ventricular systolic function is normal with, an EF | | | between 60 - 65 %. 2. There is moderate concentric left ventricular | | | hypertrophy. 3. No interatrial shunt noted on color doppler and | | | agitated saline contrast study. | | + + + + + + | Narrative | Performed At | + + + | Patient Name: Maria Ines Martin Date of : 1955 | | | Performing Physician: JASON BUCIO MD | | | | | | INDICATIONS Ischemic cerebrovascular event | | | CONCLUSIONS 1. Overall left ventricular systolic | | | function is normal with, an EF between 60 - 65 %. 2. There is | | | moderate concentric left ventricular hypertrophy. 3. No interatrial | | | shunt noted on color doppler and agitated saline contrast study. | | | FINDINGS -------- ECG rhythm: Sinus rhythm. Study: A 2-dimensional | | | transthoracic echocardiogram with m-mode, spectral and color flow | | | Doppler was perfomed. Study: This was a technically adequate study. | | | Left Ventricle: Overall left ventricular systolic function is normal | | | with, an EF between 60 - 65 %. Left Ventricle: The left ventricle | | | cavity size is normal. Left Ventricle: There is moderate concentric | | | left ventricular hypertrophy. Left Ventricle: Pseudonormal LV | | | diastolic filling pattern, consistent with elevated LA pressure and | | | moderate dysfunction (Grade II). Right Ventricle: The right ventricle | | | is normal in size and function. Left Atrium: The left atrium is | | | mildly dilated. Right Atrium: The right atrium is normal in size. | | | Aortic Valve: The aortic valve is trileaflet, and appears anatomically | | | normal. No aortic stenosis or regurgitation. Mitral Valve: Normal | | | appearing mitral valve. Mitral Valve: Mild mitral regurgitation is | | | present. Mitral Valve: Mild mitral annular calcification present. | | | Tricuspid Valve: The tricuspid valve appears structurally normal. | | | Tricuspid Valve: Trace tricuspid regurgitation present. Tricuspid | | | Valve: The right ventricular systolic pressure (pulmonary artery | | | systolic pressure), as measured by Doppler, is 37.00mmHg. Pulmonic | | | Valve: Pulmonic valve appears structurally normal. Pulmonic Valve: | | | Trace pulmonic regurgitation. Pericardium: There is no pericardial | | | effusion. IVC/Hepatic Veins: The inferior vena cava is normal in size | | | and collapses > 50 % with sniff, indicating normal central venous | | | pressures. Thrombus: No clot visualized Contrast: Contrast study was | | | performed with 1 iv injection of 8 ccs of agitated normal saline at | | | rest. Contrast: No interatrial shunt noted on color doppler and | | | agitated saline contrast study. MEASUREMENTS Ao | | | asc: 3.74 cm Ao sinus: 3.[address] junct: 3.00 cm IVC: | | | 2.26 cm LA Major: 5.19 cm EDV(Teich): 96.17 ml IVSd: | | | 1.68 cm LVIDd: 4.57 cm LVPWd: 1.59 cm LVOT Diam: 2.17 cm | | | %FS: 36.08 % EF(Teich): 65.78 % ESV(Teich): 32.90 ml IVSs: | | | 1.83 cm LVIDs: 2.92 cm LVPWs: 1.95 cm SV(Teich): 63.27 | | | ml RA Major: 4.86 cm RVIDd: 3.34 cm LVEF MOD A2C: 67.22 % | | | SV MOD A2C: 75.21 ml LVEF MOD A4C: 59.69 % SV MOD A4C: | | | 59.77 ml EF Biplane: 63.09 % LVEDV MOD BP: 106.20 ml LVESV | | | MOD BP: 39.19 ml LVEDV MOD A2C: 111.87 ml LVLd A2C: 8.55 cm | | | LVEDV MOD A4C: 100.13 ml LVLd A4C: 8.46 cm LVESV MOD A2C: | | | 36.66 ml LVLs A2C: 6.49 cm LVESV MOD A4C: 40.35 ml LVLs A4C: | | | 6.22 cm LAESV(A-L): 69.88 ml LAESV Index (A-L): 36.58 | | | ml/m2 LAAs A2C: 22.52 cm2 LAESV A-L A2C: 77.43 ml LALs A2C: | | | 5.56 cm LAAs A4C: 20.32 cm2 LAESV A-L A4C: 62.81 ml LALs | | | A4C: 5.70 cm Junior: 13.50 cm2 RAEDV A-L: 27.25 ml RAEDV | | | MOD: 27.63 ml RALd: 5.67 cm Ao Diam: 3.55 cm AV Cusp: | | | 2.03 cm LA Diam: 4.21 cm LA/Ao: 1.18 %FS: 40.81 % | | | EDV(Teich): 123.91 ml EF(Teich): 71.30 % ESV(Teich): 35.55 | | | ml IVSd: 1.73 cm IVSs: 2.32 cm LVIDd: 5.10 cm LVIDs: | | | 3.01 cm LVPWd: 1.42 cm LVPWs: 1.66 cm SV(Teich): 88.35 ml | | | D-E Excursion: 1.83 cm E-F Billings: 0.07 m/s TAPSE: 2.80 cm | | | HR: 74.10 BPM AV maxP.59 mmHg AV meanP.44 mmHg AV | | | Vmax: 1.46 m/s AV Vmean: 1.01 m/s AV VTI: 32.01 cm GISSELLE | | | Vmax: 2.68 cm2 GISSELLE (VTI): 2.67 cm2 AVAI Vmax: 0.00 cm2/m2 | | | AVAI (VTI): 0.00 cm2/m2 LVCI Dopp: 3.23 l/minm2 LVCO Dopp: | | | 6.18 l/min HR: 72.25 BPM LVOT maxP.52 mmHg LVOT meanPG: | | | 2.70 mmHg LVSI Dopp: 44.81 ml/m2 LVSV Dopp: 85.59 ml LVOT | | | Vmax: 1.06 m/s LVOT Vmean: 0.80 m/s LVOT VTI: 23.10 cm MR | | | maxP.93 mmHg MR Vmax: 4.89 m/s MV A Brock: 1.18 m/s MV | | | DecT: 246.26 ms MV E Brock: 1.22 m/s MV E/A Ratio: 1.03 MV | | | PHT: 69.49 ms MVA By PHT: 3.16 cm2 MV A Dur: 128.02 ms | | | Septal e': 0.07 m/s Septal E/e': 16.22 Lateral e': 0.07 m/s | | | Lateral E/e': 15.77 P Vein D: 0.61 m/s P Vein S/D Ratio: | | | 1.34 P Vein S: 0.83 m/s HR: 68.53 BPM PV maxP.32 mmHg | | | PV meanP.83 mmHg PV Vmax: 0.91 m/s PV Vmean: 0.65 m/s | | | PV VTI: 23.91 cm RAP: 5 mmHg RV S': 0.13 m/s RVSP: | | | 37.00 mmHg TR maxP.00 mmHg TR Vmax: 2.82 m/s TV A Brock: | | | 0.77 m/s TV Dec Billings: 2.83 m/s2 TV Dec Time: 277.60 ms TV | | | E Brock: 0.78 m/s TV E/A Ratio: 1.01 Aircraft Instrument Repairer: | | | Authenticated by: JASON BUCIO MD Report Date/Time: 12-03-2018 | | | 14:17:6 | | + + + + + | Procedure Note | + + | Madhu, Rad Conversion - 03/03/2019 10:28 PM PDT Patient Name: Jl Martin of | | : 1955 Performing Physician: JASON BUCIO | | INDICATIONS I | | schemic cerebrovascular event CONCLUSIONS 1. Overall left ventricular systolic | | function is normal with, an EF between 60 - 65 %.2. There is moderate concentric left | | ventricular hypertrophy.3. No interatrial shunt noted on color doppler and agitated | | saline contrast study. FINDINGS--------ECG rhythm: Sinus rhythm.Study: A 2-dimensional | | transthoracic echocardiogram with m-mode, spectral and color flow Doppler was | | perfomed.Study: This was a technically adequate study.Left Ventricle: Overall left | | ventricular systolic function is normal with, an EF between 60 - 65 %.Left Ventricle: | | The left ventricle cavity size is normal.Left Ventricle: There is moderate concentric | | left ventricular hypertrophy.Left Ventricle: Pseudonormal LV diastolic filling pattern, | | consistent with elevated LA pressure and moderate dysfunction (Grade II).Right | | Ventricle: The right ventricle is normal in size and function.Left Atrium: The left | | atrium is mildly dilated.Right Atrium: The right atrium is normal in size.Aortic Valve: | | The aortic valve is trileaflet, and appears anatomically normal. No aortic stenosis or | | regurgitation.Mitral Valve: Normal appearing mitral valve.Mitral Valve: Mild mitral | | regurgitation is present.Mitral Valve: Mild mitral annular calcification | | present.Tricuspid Valve: The tricuspid valve appears structurally normal.Tricuspid | | Valve: Trace tricuspid regurgitation present.Tricuspid Valve: The right ventricular | | systolic pressure (pulmonary artery systolic pressure), as measured by Doppler, is | | 37.00mmHg.Pulmonic Valve: Pulmonic valve appears structurally normal.Pulmonic Valve: | | Trace pulmonic regurgitation.Pericardium: There is no pericardial effusion.IVC/Hepatic | | Veins: The inferior vena cava is normal in size and collapses > 50 % with sniff, | | indicating normal central venous pressures.Thrombus: No clot visualizedContrast: | | Contrast study was performed with 1 iv injection of 8 ccs of agitated normal saline at | | rest.Contrast: No interatrial shunt noted on color doppler and agitated saline contrast | | study. MEASUREMENTS Ao asc: 3.74 cmAo sinus: 3.[address] junct: 3.00 | | cmIVC: 2.26 cmLA Major: 5.19 cmEDV(Teich): 96.17 mlIVSd: 1.68 cmLVIDd: 4.57 | | cmLVPWd: 1.59 cmLVOT Diam: 2.17 cm%FS: 36.08 %EF(Teich): 65.78 %ESV(Teich): | | 32.90 mlIVSs: 1.83 cmLVIDs: 2.92 cmLVPWs: 1.95 cmSV(Teich): 63.27 mlRA Major: | | 4.86 cmRVIDd: 3.34 cmLVEF MOD A2C: 67.22 %SV MOD A2C: 75.21 mlLVEF MOD A4C: | | 59.69 %SV MOD A4C: 59.77 mlEF Biplane: 63.09 %LVEDV MOD BP: 106.20 mlLVESV MOD BP: | | 39.19 mlLVEDV MOD A2C: 111.87 mlLVLd A2C: 8.55 cmLVEDV MOD A4C: 100.13 mlLVLd | | A4C: 8.46 cmLVESV MOD A2C: 36.66 mlLVLs A2C: 6.49 cmLVESV MOD A4C: 40.35 mlLVLs | | A4C: 6.22 cmLAESV(A-L): 69.88 mlLAESV Index (A-L): 36.58 ml/m2LAAs A2C: 22.52 | | [id number] A-L A2C: 77.43 mlLALs A2C: 5.56 cmLAAs A4C: 20.32 yo4ARDDL A-L A4C: | | 62.81 mlLALs A4C: 5.70 cmRAAd: 13.50 [id number] A-L: 27.25 mlRAEDV MOD: 27.63 | | mlRALd: 5.67 cmAo Diam: 3.55 cmAV Cusp: 2.03 cmLA Diam: 4.21 cmLA/Ao: 1.18%FS: | | 40.81 %EDV(Teich): 123.91 mlEF(Teich): 71.30 %ESV(Teich): 35.55 mlIVSd: 1.73 | | cmIVSs: 2.32 cmLVIDd: 5.10 cmLVIDs: 3.01 cmLVPWd: 1.42 cmLVPWs: 1.66 | | cmSV(Teich): 88.35 mlD-E Excursion: 1.83 cmE-F Billings: 0.07 m/sTAPSE: 2.80 cmHR: | | 74.10 BPMAV maxP.59 mmHgAV meanP.44 mmHgAV Vmax: 1.46 m/John Vmean: | | 1.01 m/John VTI: 32.01 cmAVA Vmax: 2.68 cm2AVA (VTI): 2.67 [id number] Vmax: 0.00 | | cm2/m2AVAI (VTI): 0.00 cm2/m2LVCI Dopp: 3.23 l/[id number] Dopp: 6.18 l/minHR: | | 72.25 BPMLVOT maxP.52 mmHgLVOT meanP.70 mmHgLVSI Dopp: 44.81 ml/m2LVSV | | Dopp: 85.59 mlLVOT Vmax: 1.06 m/sLVOT Vmean: 0.80 m/sLVOT VTI: 23.10 cmMR maxPG: | | 95.93 mmHgMR Vmax: 4.89 m/sMV A Brock: 1.18 m/sMV DecT: 246.26 msMV E Brock: 1.22 | | m/sMV E/A Ratio: 1.03MV PHT: 69.49 msMVA By PHT: 3.16 cm2MV A Dur: 128.02 | | msSeptal e': 0.07 m/sSeptal E/e': 16.22Lateral e': 0.07 m/sLateral E/e': 15.77P | | Vein D: 0.61 m/sP Vein S/D Ratio: 1.34P Vein S: 0.83 m/sHR: 68.53 BPMPV maxPG: | | 3.32 mmHgPV meanP.83 mmHgPV Vmax: 0.91 m/sPV Vmean: 0.65 m/sPV VTI: 23.91 | | cmRAP: 5 mmHgRV S': 0.13 m/sRVSP: 37.00 mmHgTR maxP.00 mmHgTR Vmax: 2.82 | | m/sTV A Brock: 0.77 m/sTV Dec Billings: 2.83 m/s2TV Dec Time: 277.60 msTV E Brock: 0.78 | | m/sTV E/A Ratio: 1.01 Aircraft Instrument Repairer: ASAuthenticated by: JASON MANEy[facility] | | Date/Time: 12-03-2018 14:17:6 IMPRESSION: 1. Overall left ventricular systolic function | | is normal with, an EF between 60 - 65 %.2. There is moderate concentric left ventricular | | hypertrophy.3. No interatrial shunt noted on color doppler and agitated saline contrast | | study. | |ESV(Teich): 32.90 ml | |IVSs: 1.83 cm | |LVIDs: 2.92 cm | |LVPWs: 1.95 cm | |SV(Teich): 63.27 ml | |RA Major: 4.86 cm | |RVIDd: 3.34 cm | |LVEF MOD A2C: 67.22 % | |SV MOD A2C: 75.21 ml | |LVEF MOD A4C: 59.69 % | |SV MOD A4C: 59.77 ml | |EF Biplane: 63.09 % | |LVEDV MOD BP: 106.20 ml | |LVESV MOD BP: 39.19 ml | |LVEDV MOD A2C: 111.87 ml | |LVLd A2C: 8.55 cm | |LVEDV MOD A4C: 100.13 ml | |LVLd A4C: 8.46 cm | |LVESV MOD A2C: 36.66 ml | |LVLs A2C: 6.49 cm | |LVESV MOD A4C: 40.35 ml | |LVLs A4C: 6.22 cm | |LAESV(A-L): 69.88 ml | |LAESV Index (A-L): 36.58 ml/m2 | |LAAs A2C: 22.52 cm2 | |LAESV A-L A2C: 77.43 ml | |LALs A2C: 5.56 cm | |LAAs A4C: 20.32 cm2 | |LAESV A-L A4C: 62.81 ml | |LALs A4C: 5.70 cm | |Junior: 13.50 cm2 | |RAEDV A-L: 27.25 ml | |RAEDV MOD: 27.63 ml | |RALd: 5.67 cm | |Ao Diam: 3.55 cm | |AV Cusp: 2.03 cm | |LA Diam: 4.21 cm | |LA/Ao: 1.18 | |%FS: 40.81 % | |EDV(Teich): 123.91 ml | |EF(Teich): 71.30 % | |ESV(Teich): 35.55 ml | |IVSd: 1.73 cm | |IVSs: 2.32 cm | |LVIDd: 5.10 cm | |LVIDs: 3.01 cm | |LVPWd: 1.42 cm | |LVPWs: 1.66 cm | |SV(Teich): 88.35 ml | |D-E Excursion: 1.83 cm | |E-F Billings: 0.07 m/s | |TAPSE: 2.80 cm | |HR: 74.10 BPM | |AV maxP.59 mmHg | |AV meanP.44 mmHg | |AV Vmax: 1.46 m/s | |AV Vmean: 1.01 m/s | |AV VTI: 32.01 cm | |GISESLLE Vmax: 2.68 cm2 | |GISSELLE (VTI): 2.67 cm2 | |AVAI Vmax: 0.00 cm2/m2 | |AVAI (VTI): 0.00 cm2/m2 | |LVCI Dopp: 3.23 l/minm2 | |LVCO Dopp: 6.18 l/min | |HR: 72.25 BPM | |LVOT maxP.52 mmHg | |LVOT meanP.70 mmHg | |LVSI Dopp: 44.81 ml/m2 | |LVSV Dopp: 85.59 ml | |LVOT Vmax: 1.06 m/s | |LVOT Vmean: 0.80 m/s | |LVOT VTI: 23.10 cm | |MR maxP.93 mmHg | |MR Vmax: 4.89 m/s | |MV A Brock: 1.18 m/s | |MV DecT: 246.26 ms | |MV E Brock: 1.22 m/s | |MV E/A Ratio: 1.03 | |MV PHT: 69.49 ms | |MVA By PHT: 3.16 cm2 | |MV A Dur: 128.02 ms | |Septal e': 0.07 m/s | |Septal E/e': 16.22 | |Lateral e': 0.07 m/s | |Lateral E/e': 15.77 | |P Vein D: 0.61 m/s | |P Vein S/D Ratio: 1.34 | |P Vein S: 0.83 m/s | |HR: 68.53 BPM | |PV maxP.32 mmHg | |PV meanP.83 mmHg | |PV Vmax: 0.91 m/s | |PV Vmean: 0.65 m/s | |PV VTI: 23.91 cm | |RAP: 5 mmHg | |RV S': 0.13 m/s | |RVSP: 37.00 mmHg | |TR maxP.00 mmHg | |TR Vmax: 2.82 m/s | |TV A Brock: 0.77 m/s | |TV Dec Billings: 2.83 m/s2 | |TV Dec Time: 277.60 ms | |TV E Brock: 0.78 m/s | |TV E/A Ratio: 1.01 | | | |Aircraft Instrument Repairer: | |Authenticated by: JASON BUCIO MD | |Report Date/Time: 12-03-2018 14:17:6 | | | |IMPRESSION: | |1. Overall left ventricular systolic function is normal with, an EF between 60 - 65 %. | |2. There is moderate concentric left ventricular hypertrophy. | |3. No interatrial shunt noted on color doppler and agitated saline contrast study. | + + External Lab: [facility] (12/03/2018 6:54 AM PDT) + + + + + + | Component | Value | Ref Range | Performed | Pathologist | | | | | At | Signature | + + + + + + | WBC | 4.35 | 3.80 - 11.00 | EXTERNAL | | | | | K/uL | LAB | | + + + + + + | RED CELL | 3.32 (L) | 3.70 - 5.10 | EXTERNAL | | | COUNT | | M/uL | LAB | | + + + + + + | Hgb | 9.1 (L) | 11.3 - 15.5 | EXTERNAL | | | | | g/dL | LAB | | + + + + + + | Hematocrit, | 27.5 (L) | 34.0 - 46.0 % | EXTERNAL | | | POC | | | LAB | | + + + + + + | MCV | 82.9 | 80.0 - 100.0 fl | EXTERNAL | | | | | | LAB | | + + + + + + | MCH | 27.4 | 27.0 - 34.0 pg | EXTERNAL [...] + + + + | Platelet | 132 (L) | 150 - 400 K/uL | EXTERNAL | | | Count | | | LAB | | | Plasma | | | | | + + + + + + | MPV | 9.7 | fl | EXTERNAL | | | | | | LAB | | + + + + + + | Differentia | AUTOMATED | | EXTERNAL | | | l Type | | | LAB | | + + + + + + | % Segmented | 51.73 | % | EXTERNAL | | | | | | LAB | | | Neutrophils | | | | | + + + + + + | % | 35.16 | % | EXTERNAL | | | Lymphocytes | | | LAB | | + + + + + + | % Monocytes | 8.22 | % | EXTERNAL | | | | | | LAB | | + + + + + + | % | 4.04 | % | EXTERNAL | | | Eosinophils | | | LAB | | + + + + + + | % Basophils | 0.85 | % | EXTERNAL | | | | | | LAB | | + + + + + + | Absolute | 2.25 | 1.90 - 7.40 | EXTERNAL | | | Segmented | | K/uL | LAB | | | Neutrophils | | | | | + + + + + + | Absolute | 1.53 | 1.00 - 3.90 | EXTERNAL | | | Lymphocytes | | K/uL | LAB | | + + + + + + | Absolute | 0.36 | 0.00 - 0.80 | EXTERNAL | | | Monocytes | | K/uL | LAB | | + + + + + + | Absolute | 0.18 | 0.00 - 0.50 | EXTERNAL | | | Eosinophils | | K/uL | LAB | | + + + + + + | Absolute | 0.04Comment: Testing | 0.00 - 0.10 | EXTERNAL | | | Basophils | performed at [facility];[address] | [address] | LAB | | | | [address];[place] | | | | | | [address] | | | | + + + + + + + + | Specimen | + + | Blood specimen | | (specimen) | + + + +---------+ + + | Performing | Address | City/State/Zipcode | Phone Number | | Organization | | | | + +---------+ + + | EXTERNAL LAB | | | | + +---------+ + + Magnesium (12/03/2018 6:54 AM PDT) + + + + + + | Component | Value | Ref Range | Performed | Pathologist | | | | | At | Signature | + + + + + + | Magnesium | 1.7Comment: Testing | 1.7 - 2.4 mg/dL | EXTERNAL | | | | performed at [facility] | | LAB | | | | [address];[place] | | | | | | [address] | | | | + + + + + + + + | Specimen | + + | Blood specimen | | (specimen) | + + + +---------+ + + | Performing | Address | City/State/Zipcode | Phone Number | | Organization | | | | + +---------+ + + | EXTERNAL LAB | | | | + +---------+ + + Hemoglobin A1C (12/03/2018 6:54 AM PDT) + + + + + + | Component | Value | Ref Range | Performed | Pathologist | | | | | At | Signature | + + + + + + | Hemoglobin | 6.5 (H)Comment: HbA1c | 4.0 - 6.0 % | EXTERNAL | | | A1c | method is certified by | | LAB | | | | [facility] and traceable to | | | | | | the DCCT reference | | | | | | method.ADA guidelines | | | | | | indicate: | | | | | | Prediabetes: 5.7 - 6.4 | | | | | | Diabetes: >6.4 | | | | | | Glycemic control for | | | | | | adults with diabetes: | | | | | | <7.0Effective 08/06/2018: | | | | | | Note New Method | | | | + + + + + + | Glycohemogl | 140Comment: Estimated | mg/dL | EXTERNAL | | | obin | Average Glucose | | LAB | | | (GHb),Total | calculated from | | | | | | hemoglobin A1c by use of | | | | | | the ADA recommended | | | | | | formula.Testing | | | | | | performed at [facility], [address] | | | | | [address], | | | | | | [place] [address] | | | | + + + + + + + + | Specimen | + + | Blood specimen | | (specimen) | + + + +---------+ + + | Performing | Address | City/State/Zipcode | Phone Number | | Organization | | | | + +---------+ + + | EXTERNAL LAB | | | | + +---------+ + + Bilirubin, Direct (12/03/2018 6:54 AM PDT) + + + + + + | Component | Value | Ref Range | Performed | Pathologist | | | | | At | Signature | + + + + + + | Bilirubin | <0.1Comment: Testing | 0.0 - 0.3 mg/dL | EXTERNAL | | | Direct | performed at [facility];[address] | | LAB | | | | [address];[place], [place] | | | | | | [address] | | | | + + + + + + + + | Specimen | + + | | + + + +---------+ + + | Performing | Address | City/State/Zipcode | Phone Number | | Organization | | | | + +---------+ + + | EXTERNAL LAB | | | | + +---------+ + + Lipid Panel (12/03/2018 6:54 AM PDT) + + + + + + | Component | Value | Ref Range | Performed | Pathologist | | | | | At | Signature | + + + + + + | Cholesterol | 188Comment: SPECIMEN | mg/dL | EXTERNAL | | | | SLIGHTLY HEMOLYZED | | LAB | | + + + + + + | Triglycerid | 241 (H)Comment: SPECIMEN | mg/dL | EXTERNAL | | | es | SLIGHTLY HEMOLYZED | | LAB | | + + + + + + | HDL | 42 | mg/dL | EXTERNAL | | | | | | LAB | | + + + + + + | LDL | 98Comment: Testing | mg/dL | EXTERNAL | | | Cholesterol | performed at [facility], [address] | | LAB | | | , | [address], | | | | | Calculated, | [place] [address] | | | | | External | [...] | | | + +---------+ + + Comprehensive Metabolic Panel (12/03/2018 6:54 AM PDT) + + + + + + | Component | Value | Ref Range | Performed | Pathologist | | | | | At | Signature | + + + + + + | Na | 148 (H) | 135 - 145 | EXTERNAL | | | | | mmol/L | LAB | | + + + + + + | K | 4.7 | 3.5 - 4.9 | EXTERNAL | | | | | mmol/L | LAB | | + + + + + + | Cl | 120 (H) | 99 - 109 mmol/L | EXTERNAL | | | | | | LAB | | + + + + + + | CO2 | 24 | 23 - 32 mmol/L | EXTERNAL | | | | | | LAB | | + + + + + + | Anion Gap | 9 | 5 - 20 mmol/L | EXTERNAL | | | | | | LAB | | + + + + + + | Glucose, | 130 (H) | 65 - 99 mg/dL | EXTERNAL | | | Fasting | | | LAB | | + + + + + + | BUN | 35 (H) | 8 - 25 mg/dL | EXTERNAL | | | | | | LAB | | + + + + + + | Creatinine | 1.74 (H) | 0.50 - 1.00 | EXTERNAL | | | | | mg/dL | LAB | | + + + + + + | BUN/Creatin | 20 | | EXTERNAL | | | ine Ratio | | | LAB | | + + + + + + | Calcium | 7.5 (L) | 8.5 - 10.5 | EXTERNAL | | | | | mg/dL | LAB | | + + + + + + | Protein, | 4.6 (L) | 6.3 - 8.2 g/dL | EXTERNAL | | | Total | | | LAB | | + + + + + + | Albumin | 2.8 (L) | 3.3 - 4.8 g/dL | EXTERNAL | | | | | | LAB | | + + + + + + | Globulin | 1.8 | 1.3 - 4.9 g/dL | EXTERNAL | | | | | | LAB | | + + + + + + | A/G Ratio | 1.6 | 1.0 - 2.4 | EXTERNAL | | | | | | LAB | | + + + + + + | Bilirubin | 0.2 | 0.1 - 1.5 mg/dL | EXTERNAL | | | Total | | | LAB | | + + + + + + | ALP, | 75 | 35 - 115 U/L | EXTERNAL | | | External | | | LAB | | + + + + + + | AST | 17 | 10 - 45 U/L | EXTERNAL | | | | | | LAB | | + + + + + + | ALT | 13 | 10 - 65 U/L | EXTERNAL | | | | | | LAB | | + + + + + + | Estimated | 30 (L)Comment: GFR <60: | mL/min/1.73m2 | EXTERNAL [...] | | | | | | MDRD [facility] traceable | | | | | | equation.Testing | | | | | | performed at [facility];[address] | | | | | | [facility] [place], [place] | | | | | | [address] | | | | + + + + + + + + | Specimen | + + | Blood specimen | | (specimen) | + + + +---------+ + + | Performing | Address | City/State/Zipcode | Phone Number | | Organization | | | | + +---------+ + + | EXTERNAL LAB | | | | + +---------+ + + POC Glucose (12/03/2018 5:56 AM PDT) + + + + + + | Component | Value | Ref Range | Performed | Pathologist | | | | | At | Signature | + + + + + + | Glucose, | 128 (H)Comment: Testing | 65 - 99 mg/dL | EXTERNAL | | | Fingerstick | performed at [facility];[address] | | LAB | | | | [address];[place], [place] | | | | | | [address] | | | | + + + + + + + + | Specimen | + + | | + + + +---------+ + + | Performing | Address | City/State/Zipcode | Phone Number | | Organization | | | | + +---------+ + + | EXTERNAL LAB | | | | + +---------+ + + POC Glucose (12/03/2018 12:55 AM PDT) + + + + + + | Component | Value | Ref Range | Performed | Pathologist | | | | | At | Signature | + + + + + + | Glucose, | 88Comment: Testing | 65 - 99 mg/dL | EXTERNAL | | | Fingerstick | performed at [facility];[address] | | LAB | | | | [address];[place], [place] | | | | | | [address] | | | | + + + + + + + + | Specimen | + + | | + + + +---------+ + + | Performing | Address | City/State/Zipcode | Phone Number | | Organization | | | | + +---------+ + + | EXTERNAL LAB | | | | + +---------+ + + MRI Angiogram Neck wo Contrast (12/03/2018 12:29 AM PDT) + + | Specimen | + + | | + + + + + | Impressions | Performed At | + + + | 1. Probable mild chronic white matter microvascular ischemic | | | gliosis. 2. Mild luminal narrowing within the intracranial portion of | | | the bilateral internal carotid arteries without significant | | | stenosis. 3. Question small fenestration or stenosis of the distal A1 | | | segment of the right anterior cerebral artery with patent anterior | | | communicating artery. 4. No focal stenosis or dissection at the | | | carotid bifurcations or proximal internal carotid arteries. Signed | | | by: Ahmet Carcamo, Patrice Sign Date/Time: 12/03/2018 9:50 AM | | + + + + + + | Narrative | Performed At | + + + | MRI BRAIN WITHOUT CONTRAST; MRA BRAIN WITHOUT CONTRAST ; MRA NECK | | | WITHOUT CONTRAST. CLINICAL INFORMATION: Stroke; Right-sided | | | weakness. COMPARISON: CT head dated 12/02/2018 PROCEDURE: MRI | | | Brain: Sagittal T2 FLAIR, axial T1 FLAIR, axial T2, axial T2 FLAIR, | | | axial gradient, and axial diffusion-weighted imaging was obtained. | | | MRA Brain: 3D [id number] MRA with MIP reformations. MRA neck: 2D | | | [id number] MRA with MIP reformations. FINDINGS: MRI Brain: | | | Brain: No restricted diffusion. No susceptibility artifact. Mild | | | focal areas of increased T2 and FLAIR signal seen within the | | | supratentorial white matter and centrally within the vera that are | | | nonspecific but most likely on the basis of mild chronic white matter | | | microvascular ischemic gliosis. Cranial cervical junction, pineal, | | | pituitary, and corpus callosum unremarkable. Ventricles and | | | extra-axial fluid spaces: Normal. Sella, suprasellar cistern, and | | | orbits: Normal. Calvarium and extracranial soft tissues: Fatty | | | atrophy of the bilateral parotid glands. Paranasal sinuses and | | | mastoid air cells: Trace amount of fluid within the mastoid sinuses. | | | MRA Brain: Intracranial segments of the internal carotid arteries: | | | Mild luminal irregularity and narrowing of the bilateral intracranial | | | internal carotid arteries without significant stenosis. Middle | | | cerebral arteries and major MCA branch vessels: Mild luminal | | | narrowing within the proximal left middle cerebral artery. Anterior | | | cerebral arteries and anterior communicating artery: Patent anterior | | | communicating artery. Question small thin stray baird within the | | | distal aspect of the A1 segment of the right anterior cerebral | | | artery. Intracranial segments of the vertebral arteries and basilar | | | artery: Bilateral vertebral arteries are codominant. No focal | | | stenosis, dissection, or aneurysm. Posterior cerebral arteries: | | | Normal. MRA neck: The distal common carotid arteries in proximal mid | | | internal carotid arteries are widely patent without focal stenosis or | | | dissection. The visualized vertebral arteries patent and are | | | codominant | | + + + + + | Procedure Note | + + | Madhu, Rad Conversion - 03/03/2019 10:28 PM PDT MRI BRAIN WITHOUT CONTRAST; MRA BRAIN | | WITHOUT CONTRAST ; MRA NECKWITHOUT CONTRAST.CLINICAL INFORMATION:Stroke; Right-sided | | weakness.COMPARISON:CT head dated 12/02/2018PROCEDURE:MRI Brain: Sagittal T2 FLAIR, axial | | T1 FLAIR, axial T2, axial T2 FLAIR,axial gradient, and axial diffusion-weighted imaging | | was obtained.MRA Brain: 3D [id number] MRA with MIP reformations.MRA neck: 2D | | [id number] MRA with MIP reformations.FINDINGS:MRI Brain:Brain: No restricted | | diffusion. No susceptibility artifact. Mildfocal areas of increased T2 and FLAIR | | signal seen within thesupratentorial white matter and centrally within the vera that | | arenonspecific but most likely on the basis of mild chronic white mattermicrovascular | | ischemic gliosis. Cranial cervical junction, pineal,pituitary, and corpus callosum | | unremarkable.Ventricles and extra-axial fluid spaces: Normal.Sella, suprasellar cistern, | | and orbits: Normal.Calvarium and extracranial soft tissues: Fatty atrophy of the | | bilateralparotid glands.Paranasal sinuses and mastoid air cells: Trace amount of fluid | | withinthe mastoid sinuses.MRA Brain:Intracranial segments of the internal carotid | | arteries: Mild luminalirregularity and narrowing of the bilateral intracranial | | internalcarotid arteries without significant stenosis.Middle cerebral arteries and major | | MCA branch vessels: Mild luminalnarrowing within the proximal left middle cerebral | | artery.Anterior cerebral arteries and anterior communicating artery: Patentanterior | | communicating artery. Question small thin stray baird withinthe distal aspect of the A1 | | segment of the right anterior cerebralartery.Intracranial segments of the vertebral | | arteries and basilar artery:Bilateral vertebral arteries are codominant. No focal | | stenosis,dissection, or aneurysm.Posterior cerebral arteries: Normal.MRA neck: The | | distal common carotid arteries in proximal mid internalcarotid arteries are widely | | patent without focal stenosis ordissection. The visualized vertebral arteries patent | | and are codominantIMPRESSION: 1. Probable mild chronic white matter microvascular | | ischemic gliosis.2. Mild luminal narrowing within the intracranial portion of | | thebilateral internal carotid arteries without significant stenosis.3. Question small | | fenestration or stenosis of the distal A1 segment ofthe right anterior cerebral artery | | with patent anterior communicatingartery.4. No focal stenosis or dissection at the | | carotid bifurcations orproximal internal carotid arteries.Signed by: Ahmet Carcamo, | | [place] Date/Time: 12/03/2018 9:50 AM | |Anterior cerebral arteries and anterior communicating artery: Patent | |anterior communicating artery. Question small thin stray baird within | |the distal aspect of the A1 segment of the right anterior cerebral | |artery. | |Intracranial segments of the vertebral arteries and basilar artery: | |Bilateral vertebral arteries are codominant. No focal stenosis, | |dissection, or aneurysm. | |Posterior cerebral arteries: Normal. | |MRA neck: The distal common carotid arteries in proximal mid internal | |carotid arteries are widely patent without focal stenosis or | |dissection. The visualized vertebral arteries patent and are codominant | |IMPRESSION: | |1. Probable mild chronic white matter microvascular ischemic gliosis. | |2. Mild luminal narrowing within the intracranial portion of the | |bilateral internal carotid arteries without significant stenosis. | |3. Question small fenestration or stenosis of the distal A1 segment of | |the right anterior cerebral artery with patent anterior communicating | |artery. | |4. No focal stenosis or dissection at the carotid bifurcations or | |proximal internal carotid arteries. | |Signed by: Ahmet Carcamo Chet | |Sign Date/Time: 12/03/2018 9:50 AM | + + MRI Brain Wo MRA Head Wo (12/03/2018 12:29 AM PDT) + + | Specimen | + + | | + + + + + | Impressions | Performed At | + + + | 1. Probable mild chronic white matter microvascular ischemic | | | gliosis. 2. Mild luminal narrowing within the intracranial portion of | | | the bilateral internal carotid arteries without significant | | | stenosis. 3. Question small fenestration or stenosis of the distal A1 | | | segment of the right anterior cerebral artery with patent anterior | | | communicating artery. 4. No focal stenosis or dissection at the | | | carotid bifurcations or proximal internal carotid arteries. Signed | | | by: Ahmet Carcamo, Patrice Sign Date/Time: 12/03/2018 9:50 AM | | + + + + + + | Narrative | Performed At | + + + | MRI BRAIN WITHOUT CONTRAST; MRA BRAIN WITHOUT CONTRAST ; MRA NECK | | | WITHOUT CONTRAST. CLINICAL INFORMATION: Stroke; Right-sided | | | weakness. COMPARISON: CT head dated 12/02/2018 PROCEDURE: MRI | | | Brain: Sagittal T2 FLAIR, axial T1 FLAIR, axial T2, axial T2 FLAIR, | | | axial gradient, and axial diffusion-weighted imaging was obtained. | | | MRA Brain: 3D [id number] MRA with MIP reformations. MRA neck: 2D | | | [id number] MRA with MIP reformations. FINDINGS: MRI Brain: | | | Brain: No restricted diffusion. No susceptibility artifact. Mild | | | focal areas of increased T2 and FLAIR signal seen within the | | | supratentorial white matter and centrally within the vera that are | | | nonspecific but most likely on the basis of mild chronic white matter | | | microvascular ischemic gliosis. Cranial cervical junction, pineal, | | | pituitary, and corpus callosum unremarkable. Ventricles and | | | extra-axial fluid spaces: Normal. Sella, suprasellar cistern, and | | | orbits: Normal. Calvarium and extracranial soft tissues: Fatty | | | atrophy of the bilateral parotid glands. Paranasal sinuses and | | | mastoid air cells: Trace amount of fluid within the mastoid sinuses. | | | MRA Brain: Intracranial segments of the internal carotid arteries: | | | Mild luminal irregularity and narrowing of the bilateral intracranial | | | internal carotid arteries without significant stenosis. Middle | | | cerebral arteries and major MCA branch vessels: Mild luminal | | | narrowing within the proximal left middle cerebral artery. Anterior | | | cerebral arteries and anterior communicating artery: Patent anterior | | | communicating artery. Question small thin stray baird within the | | | distal aspect of the A1 segment of the right anterior cerebral | | | artery. Intracranial segments of the vertebral arteries and basilar | | | artery: Bilateral vertebral arteries are codominant. No focal | | | stenosis, dissection, or aneurysm. Posterior cerebral arteries: | | | Normal. MRA neck: The distal common carotid arteries in proximal mid | | | internal carotid arteries are widely patent without focal stenosis or | | | dissection. The visualized vertebral arteries patent and are | | | codominant | | + + + + + | Procedure Note | + + | Madhu, Rad Conversion - 03/03/2019 10:28 PM PDT MRI BRAIN WITHOUT CONTRAST; MRA BRAIN | | WITHOUT CONTRAST ; MRA NECKWITHOUT CONTRAST.CLINICAL INFORMATION:Stroke; Right-sided | | weakness.COMPARISON:CT head dated 12/02/2018PROCEDURE:MRI Brain: Sagittal T2 FLAIR, axial | | T1 FLAIR, axial T2, axial T2 FLAIR,axial gradient, and axial diffusion-weighted imaging | | was obtained.MRA Brain: 3D nunj-ez-tosrzs MRA with MIP reformations.MRA neck: 2D | | ezis-yz-irchyd MRA with MIP reformations.FINDINGS:MRI Brain:Brain: No restricted | | diffusion. No susceptibility artifact. Mildfocal areas of increased T2 and FLAIR | | signal seen within thesupratentorial white matter and centrally within the vera that | | arenonspecific but most likely on the basis of mild chronic white mattermicrovascular | | ischemic gliosis. Cranial cervical junction, pineal,pituitary, and corpus callosum | | unremarkable.Ventricles and extra-axial fluid spaces: Normal.Sella, suprasellar cistern, | | and orbits: Normal.Calvarium and extracranial soft tissues: Fatty atrophy of the | | bilateralparotid glands.Paranasal sinuses and mastoid air cells: Trace amount of fluid | | withinthe mastoid sinuses.MRA Brain:Intracranial segments of the internal carotid | | arteries: Mild luminalirregularity and narrowing of the bilateral intracranial | | internalcarotid arteries without significant stenosis.Middle cerebral arteries and major | | MCA branch vessels: Mild luminalnarrowing within the proximal left middle cerebral | | artery.Anterior cerebral arteries and anterior communicating artery: Patentanterior | | communicating artery. Question small thin stray baird withinthe distal aspect of the A1 | | segment of the right anterior cerebralartery.Intracranial segments of the vertebral | | arteries and basilar artery:Bilateral vertebral arteries are codominant. No focal | | stenosis,dissection, or aneurysm.Posterior cerebral arteries: Normal.MRA neck: The | | distal common carotid arteries in proximal mid internalcarotid arteries are widely | | patent without focal stenosis ordissection. The visualized vertebral arteries patent | | and are codominantIMPRESSION: 1. Probable mild chronic white matter microvascular | | ischemic gliosis.2. Mild luminal narrowing within the intracranial portion of | | thebilateral internal carotid arteries without significant stenosis.3. Question small | | fenestration or stenosis of the distal A1 segment ofthe right anterior cerebral artery | | with patent anterior communicatingartery.4. No focal stenosis or dissection at the | | carotid bifurcations orproximal internal carotid arteries.Signed by: Ahmet Carcamo, | | [place] Date/Time: 12/03/2018 9:50 AM | |Anterior cerebral arteries and anterior communicating artery: Patent | |anterior communicating artery. Question small thin stray baird within | |the distal aspect of the A1 segment of the right anterior cerebral | |artery. | |Intracranial segments of the vertebral arteries and basilar artery: | |Bilateral vertebral arteries are codominant. No focal stenosis, | |dissection, or aneurysm. | |Posterior cerebral arteries: Normal. | |MRA neck: The distal common carotid arteries in proximal mid internal | |carotid arteries are widely patent without focal stenosis or | |dissection. The visualized vertebral arteries patent and are codominant | |IMPRESSION: | |1. Probable mild chronic white matter microvascular ischemic gliosis. | |2. Mild luminal narrowing within the intracranial portion of the | |bilateral internal carotid arteries without significant stenosis. | |3. Question small fenestration or stenosis of the distal A1 segment of | |the right anterior cerebral artery with patent anterior communicating | |artery. | |4. No focal stenosis or dissection at the carotid bifurcations or | |proximal internal carotid arteries. | |Signed by: Ahmte Carcamo Chet | |Sign Date/Time: 12/03/2018 9:50 AM | + + Urinalysis, Microscopic Only (12/02/2018 11:11 PM PDT) + + + + + + [...] + + + + | Epithelial | 16-25 | /lpf | EXTERNAL | | | [...] + + | CASTS | SEE BELOWComment: 06-05 | /lpf | EXTERNAL | | | | HYALINE CASTTesting | | LAB | | | | performed at [facility], [address] | | | | | | [address], | | | | | | [place] [address] | | | | + + + + + + + + | Specimen | + + | | + + + +---------+ + + | Performing | Address | City/State/Zipcode | Phone Number | | Organization | | | | + +---------+ + + | EXTERNAL LAB | | | | + +---------+ + + Urinalysis with Microscopic if Indicated (12/02/2018 11:11 PM PDT) + + + + + + | Component | Value | Ref Range | Performed | Pathologist | | | | | At | Signature | + + + + + + | Color | YELLOW | | EXTERNAL | | | | | | LAB | | + + + + + + | Clarity | CLEAR | | EXTERNAL | | | | | | LAB | | + + + + + + | Specific | 1.012 | 1.002 - 1.030 | EXTERNAL | | | [place] | | | LAB | | + [...] + + + | pH, Urine | 6.0 | 5.0 - 8.0 | EXTERNAL | [...] | | | Urine | performed at [facility], [address] | | LAB | | | | [address], | | | | | | [place] [address] | | | | + + + [...] + | Diagnosis | + + | Right sided weakness Muscle weakness (generalized) | + + documented in this encounter
--- OUTSIDE RECORDS SUMMARY | ~2019-06-26 | XMS | Encounter Summary ---
Demographics + + + | Address | [address] | | | [place] [address] | + + + | Home Phone | | + + + | Preferred Language | Unknown | + + + | Marital Status | | + + + | Lutheran Affiliation | 1041 | + + + [...] Team Providers + +------+ + | Care Physics Professor Name | Role | Phone | + +------+ + | Bernadette Amrendariz PA-C | PCP | | + +------+ + Encounter Details +--------+ + + + + | Date | Type | Department | Care Team | Description | +--------+ + + + + | 03/11/ | Orders Only | [facility] | James Pearce MD | Essential | | 2019 | | NEPHROLOGY [place] | [address] [place] | hypertension | | | | [address] | [address] [place], [place] | (Primary Dx); Type 2 | | | | [address] | [address] | diabetes mellitus | | | | [place], [place] | | with complication, | | | | [address] | | with long-term | | | | [phone] | | current use of | | [...] | | | | | | [address] [place], [place] | | | | | | [address] | | | | | | | [...] type | | | | | | ([facility]) | | + +------+--------+ + + documented [...]
--- OUTSIDE RECORDS SUMMARY | ~2019-06-26 | XMS | Encounter Summary ---
Demographics + + + | Address | [address] | | | [place] [address] | + + + | Home Phone | | + + + | Preferred Language | Unknown | + + + | Marital Status | | + + + | Judaism Affiliation | 1041 | + + + [...] Team Providers + +------+ + | Care Window Installation Subcontractor Name | Role | Phone | + +------+ + | Bernadette Armendariz PA-C | PCP | | + +------+ + Encounter Details +--------+ + + + + | Date | Type | Department | Care Team | Description | +--------+ + + + + | 02/23/ | Orders Only | [facility] | Provider, | Essential (primary) | | 2018 | | SYSTEM GENERIC OP | MD [address] | hypertension; Type 2 | | | | CONVERSION [address] | [address] | diabetes mellitus | | | | [address] [address], [place] | [place] [address] | with complications | | | | [address] | | ([facility]); Acute kidney | | | | [phone] | | failure ([facility]); | | | | | | Chronic kidney | | | | | | disease, stage IV | | | | | | (severe) ([facility]); | | | | | | Proteinuria; | | | | | | Secondary | | | | | | hyperparathyroidism | | | | | | of renal origin | | | | | | ([facility]); Vitamin D | | [...] | Visit | | [address] [facility] [place] | | | | | | [address] [place], [place] | | | | | | [address] | | | | | | | [...] origin | | | | | | ([facility]) Vitamin D | | | | | [...] origin | | | | | | ([facility]) Vitamin D | | | | | [...] | | | | | | (severe) ([facility]) | | | | | | Proteinuria | | | | | | Secondary | | | | | | hyperparathyroidism | | | | | | of renal origin | | | | | | ([facility]) Vitamin D | | | | | [...] | | | | | | (severe) ([facility]) | | | | | | Proteinuria | | | | | | Secondary | | | | | | hyperparathyroidism | | | | | | of renal origin | | | | | | ([facility]) Vitamin D | | | | | [...]
--- OUTSIDE RECORDS SUMMARY | ~2019-06-26 | XMS | Encounter Summary ---
Demographics + + + | Address | [address] | | | [place] [address] | + + + | Home Phone | | + + + | Preferred Language | Unknown | + + + | Marital Status | | + + + | Scientology Affiliation | 1041 | + + + | Race | Unknown | + + + | Ethnic Group | Unknown | + + + Author + + + | Author | [facility] | | | and [place] | + + + | Organization | [facility] | | | [...] Team Providers + +------+ + | Care Knitted Goods Shaper Name | Role | Phone | + +------+ + PCP | Unavailable | + +------+ + Encounter Details +--------+ + + + + | Date | Type | Department | Care Team | Description | +--------+ + + + + | 02/09/ | Hospital | [facility] | Ilan [place], | | | 1989 - | Encounter | MED CTR MED ONC | MD [address] | | | | | [address] [place] | [place], [place] | | | 02/12/ | | [place] [address] | [address] | | | 1989 | | [phone] | | | +--------+ + + + [...] 2020 | Visit | | [address] [facility] [place] | | | | | | [address] [place] | | | | | | [address] | | | | | | | | +--------+---------+ + + + documented as of this encounter Visit Diagnoses Not on filedocumented in this encounter"
--- OUTSIDE RECORDS SUMMARY | ~2019-06-26 | XMS | Encounter Summary ---
Demographics + + + | Address | [address] | | | [place] [address] | + + + | Home Phone | | + + + | Preferred Language | Unknown | + + + | Marital Status | | + + + | Yazidi Affiliation | 1041 | + + + | Race | Unknown | + + + | Ethnic Group | Unknown | + + + Author + + + | Author | [facility] | | | and [place] | + + + | Organization | [facility] | | | [...] Team Providers + +------+ + | Care Gold Miner Blasting Name | Role | Phone | + +------+ + | Bernadette Armendariz PA-C | PCP | | + +------+ + Encounter Details +--------+ + + + + | Date | Type | Department | Care Team | Description | +--------+ + + + + | 03/16/ | Orders Only | [facility] | James Pearce MD | Essential (primary) | | 2019 | | NEPRHOLOGY [place] | [address] | hypertension; Type 2 | | | | [address] | [address] [place], [place] | diabetes mellitus | | | | [address] [place], [place] | [address] | with complications | | | | [address] | | (HCC); Acute kidney | | | | [phone] | | failure (HCC) | +--------+ + [...] 2019 | Visit | | [address] [facility] [place] | | | | | | [address] [place], [place] | | | | | | [address] | | | | | | | [...]
--- OUTSIDE RECORDS SUMMARY | ~2019-06-26 | XMS | Clinical Summary ---
Demographics + + + | Address | [address] | | | [place] [address] | + + + | Home Phone | | + + + | Preferred Language | Unknown | + + + | Marital Status | Unknown | + + + | Denominational Affiliation | Unknown | + + + | Race | Unknown | + + + | Ethnic Group | Unknown | + + + Author + + + | Author | [employer] [employer] (Historical as of | | | 03-07-19) | + + + | Organization | [facility] [employer] (Historical as of | | | 03-07-19) | + + + | Address | Unknown | + + + | Phone | Unavailable | + + + Support + + +---------+ + | Name | Relationship | Address | Phone | + + +---------+ + | Ciriano,Sachin | ECON | Unknown | | + + +---------+ + | MarioBryan | ECON | Unknown | | + + +---------+ + Care Team Providers + +------+ + | Care Automotive Teacher Name | Role | Phone | [...] (chronic kidney disease), stage IV ([facility]) | 11/17/2018 | + + + | Anemia of chronic renal failure, stage 4 (severe) ([facility]) | 11/17/2018 | + + + [...] | 9 | + + + + Family History + + +------+ + | [...] +------+-------+ + | MEDICAID | [place] | [id number] | | | [address] | | | [place] | | | | [place] | | | [place] | | | | [address] | | | [employer] | | | | | + +--------+ +------+-------+ + | /[facility] | YELLOW | [id number] | | | | | PLANS | [...] | Self | [birth year] Home: | [address] | | | al/Fam | | 1954 | [id number] | [place] | | | jeni | | | [birth year] | [address] | + +--------+ +--------+ + +
--- OUTSIDE RECORDS SUMMARY | ~2019-06-26 | XMS | Encounter Summary ---
Demographics + + + | Address | [address] | | | [place] [address] | + + + | Home Phone | | + + + | Preferred Language | Unknown | + + + | Marital Status | | + + + | Mosque Affiliation | 1041 | + + + [...] Team Providers + +------+ + | Care Expedition Supervisor Name | Role | Phone | [...] + + | 11/14/ | Telephone | [facility] | Сергей Gaitan | Other (Testing, | | 2018 | | [facility] [address] | MD Don [address] | Labs) | | | | [place], | [address] [place] | | | | | [place] [address] | [place] [address] | | | | | [phone] | [phone] | | | | | | | [...] 09/27/ | Office | Nephrology | James Paerce MD | | | 2019 | Visit | | [address] [facility] [place] | | | | | | [address] [facility] [place] | | | | | | [address] | | | | | | | [...] | | | | | | unspecified MS type, | | | | | | [...] | | | | | | unspecified MS type, | | | | | | [...] | | | | | | unspecified MS type, | | | | | | [...] | + + | Myocardial infarction, unspecified [place] type, unspecified artery (HCC) | + + | Essential hypertension Unspecified essential hypertension | + + | Encounter for lipid screening for cardiovascular disease | + + documented in this encounter"
--- OUTSIDE RECORDS SUMMARY | ~2019-06-26 | XMS | Encounter Summary ---
Demographics + + + | Address | [address] | | | [place] [address] | + + + | Home Phone | | + + + | Preferred Language | Unknown | + + + | Marital Status | | + + + | Taoism Affiliation | 1041 | + + + [...] Providers + +------+ + | Care Bistro Attendant Name | Role | Phone | + +------+ + | Bernadette Armendariz PA-C | PCP | | + +------+ + Encounter Details +--------+ + + + + | Date | Type | Department | Care Team | Description | +--------+ + + + + | 03/11/ | Orders Only | [facility] | James Pearce MD | Essential | | 2019 | | NEPHROLOGY [place] | [address] [place] | hypertension | | | | [address] | [address] [place], [place] | (Primary Dx); Type [address] | | | | [address] | [address] | diabetes mellitus | | | | [place], [place] | | with complication, | | | | [address] | | with long-term | | | | [phone] | | current use of | | [...] 2019 | Visit | | [address] [facility] [place] | | | | | | [address] [place], [place] | | | | | | [address] | | | | | | | [...] type | | | | | | ([facility]) | | + +------+--------+ + + documented [...]
--- OUTSIDE RECORDS SUMMARY | ~2019-06-26 | XMS | Encounter Summary ---
Demographics + + + | Address | [address] | | | [place] [address] | + + + | Home Phone [...] Team Providers + +------+ + | Care Metal Shaping Machine Operator Name | Role | Phone | + +------+ + | Nathalie Castorena | PCP | | + +------+ + Encounter Details +--------+ + + + + | Date | Type | Department | Care Team | Description | +--------+ + + + + | 03/10/ | Orders Only | [facility] | James Pearce MD | | | 2018 | | NEPHROLOGY [place] | [address] [place] | | | | | [address] | [address] [facility] [place] | | | | | [facility] [address] | [address] | | | | | [place], [place] | | | | | | [address] | | | | | | [phone] | | | +--------+ + + + [...] 2020 | Visit | | [address] [facility] | | | | | | [address] [place], [place] | | | | | | [address] | | | | | | | | +--------+---------+ + + + documented as of this encounter Visit Diagnoses Not on filedocumented in this encounter"
--- OUTSIDE RECORDS SUMMARY | ~2019-06-26 | XMS | Encounter Summary ---
Demographics + + + | Address | [address] | | | [place] [address] | + + + | Home Phone [...] Team Providers + +------+ + | Care Capital Markets Specialist Name | Role | Phone | + +------+ + | Bernadette Armendariz PA-C | PCP | | + +------+ + Encounter Details +--------+ + + + + | Date | Type | Department | Care Team | Description | +--------+ + + + + | 11/12/ | Orders Only | [facility] | Conversion | | | 2019 | | NEPHROLOGY [place] | Transaction, | | | | | [address] | Provider Unknown | | | | | [address] [place] | | | | | | [address] | (Fax) | | | | | [phone] | | | +--------+ + + + [...] 2020 | Visit | | [address] [facility] | | | | | | [address] [place], [place] | | | | | | [address] | | | | | | | [...]
--- OUTSIDE RECORDS SUMMARY | ~2019-06-26 | XMS | Encounter Summary ---
Demographics + + + | Address | [address] | | | [place] [address] | + + + | Home Phone [...] Team Providers + +------+ + | Care Database Administration Manager Name | Role | Phone | [...] (congestive | PA-C [address] | [address] | | | | | heart | [place] | [place], | | | | | failure) | [place] | [place] | | | | | (HCC) | [address] | [address] | | | | | Procedures | [place], | Phone: | | | | | COLD HEADER 02/11 > | [place] | [phone] | | | | | PENDING DOS | [address] | Fax: | | | | | | Phone: | [phone] | | | | | | [phone] | | | | | | | Fax: | | | | | | | [phone] | | +--------+--------+ + + + + Encounter Details +--------+---------+ + + + | Date | Type | Department | Care Team | Description | +--------+---------+ + + + | 03/03/ | Office | [facility] | Сергей Vasquez | Congestive heart | | 2017 | Visit | CARDIOLOGY [address] | MD Don [address] | failure, unspecified | | | | [place], | [address] [place] | HF chronicity, | | | | [place] [address] | [place] [address] | unspecified heart | | | | [phone] | [phone] | failure type (HCC) | | | | | | (Primary Dx); | | | | | | Myocardial | | | | | | infarction, | | | | | | unspecified [place] type, | | | | | | [...] whether | | | | | | [place] or | | | | | | [...] procedure. 6. Make sure you have a cdl team truck driver to take you home. Your cdl team truck driver will also need to sign [...] hospital line at and ask for nursing ski production supervisor t o let them know you [...] 4.7 Final Albumin/Globulin Ratio 01/27/2018 0.5 Final [facility] 01/27/2018 27.0 26.0 - 33.0 pg Final [facility] 01/27/2018 33.0 30.0 - 36.0 % Final BASOPHILS % 01/27/2018 0.3 1.0 % Final I reviewed records from [facility] for hospitalization,including H&P, Discharge [facility] and lab reports on 01/27/18 [...] made to ensure accuracy; however, inadvertent computerized multimedia instructional designer errors may be pre sent. Electronically signed by: Kyler Vasquez MD PhD [facility] 03/03/2018 documented in t his encounter Plan of Treatment +--------+---------+ + + + | Date | Type | Specialty | Care Team | Description | +--------+---------+ + + + | 09/27/ | Office | Nephrology | James Pearce MD | | | 2019 | Visit | | [address] [facility] | | | | | | [address] [place], [place] | | | | | | [address] | | | | | | | [...] whether | | | | | | [place] or | | | | | | [...] whether | | | | | | [place] or | | | | | | [...] whether | | | | | | [place] or | | | | | | [...] MD | | | | | | ([id number]) on 03/04/2018 | | | | | [...] | + + | Myocardial infarction, unspecified [place] type, unspecified artery (HCC) | + + | Cerebrovascular accident (CVA), unspecified mechanism (HCC) | + + | Hypertension, unspecified type | + + | Heart disease Heart disease, unspecified | + + | Tobacco use disorder | + + | Coronary artery disease, angina presence unspecified, unspecified vessel or lesion | | type, unspecified whether [place] or transplanted heart | + + documented in this encounter
--- OUTSIDE RECORDS SUMMARY | ~2019-06-26 | XMS | Encounter Summary ---
Demographics + + + | Address | [address] | | | [place] [address] | + + + | Home Phone | | + + + | Preferred Language | Unknown | + + + | Marital Status | | + + + | Cheondoism Affiliation | 1041 | + + + | Race | Unknown | + + + | Ethnic Group | Unknown | + + + Author + + + | Author | [facility] | | | and [place] | + + + | Organization | [facility] | | [...] Team Providers + +------+ + | Care Locksmith Name | Role | Phone | + +------+ + PCP | Unavailable | + +------+ + Encounter Details +--------+ + + + + | Date | Type | Department | Care Team | Description | +--------+ + + + + | 02/09/ | Hospital | [facility] | Ilan [place], | | | 1989 - | Encounter | MED CTR MED ONC | MD [address] | | | | | [address] [place] | [place], [place] | | | 02/12/ | | [place] [address] | [address] | | | 1989 | | [phone] | | | +--------+ + + + [...] 2020 | Visit | | [address] [facility] [place] | | | | | | [address] [place] | | | | | | [address] | | | | | | | | +--------+---------+ + + + documented as of this encounter Visit Diagnoses Not on filedocumented in this encounter"
--- OUTSIDE RECORDS SUMMARY | ~2019-06-26 | XMS | Encounter Summary ---
Demographics + + + | Address | [address] | | | [place] [address] | + + + | Home Phone | | + + + | Preferred Language | Unknown | + + + | Marital Status | | + + + | Congregational Affiliation | 1041 | + + + | Race | Unknown | + + + | Ethnic Group | Unknown | + + + Author + + + | Author | [facility] | | | and [place] | + + + | Organization | [facility] | | | [...] Team Providers + +------+ + | Care School Bus Mechanic Name | Role | Phone | [...] | | | failure, | [address] | | | | | unspecified | St [place] | [place], [place] | | | | | HF | [place], [place] | [address] Phone: | | | | | chronicity, | [address] | [phone] | | | | | unspecified | Phone: | Fax: | | | | | heart | [phone] | [phone] | | | | | failure type | Fax: | | | | | | ([facility]) | [phone] | | | | | | Coronary [...] | | | | | | | [place] or | | | | | | [...] | heart | NW | [address] | | | | | failure) | [place] | [address] [place] | | | | | (HCC) | [address] | [facility], [place] | | | | | Procedures | [place], | [address] Phone: | | | | | 2 month | [place] | [phone] | | | | | follow up | [address] | Fax: | | | | | with | Phone: | [phone] | | | | | [place] | [phone] | | | | | | | Fax: | | | | | | | [phone] | | +--------+--------+ + + + + Encounter Details +--------+---------+ + + + | Date | Type | Department | Care Team | Description | +--------+---------+ + + + | 05/13/ | Office | [facility] | Сергей Gaitan | Congestive heart | | 2018 | Visit | CARDIOLOGY [address] | MD Don [address] | failure, unspecified | | | | [address] [place], | [address] [place] | HF chronicity, | | | | [place] [address] | [place] [address] | unspecified heart | | | | [phone] | [phone] | failure type (HCC) | | | [...] whether | | | | | | [place] or | | | | | | [...] Medical Record I previously reviewed records from [facility] for hospitalization,including H&P, Discharge Summary and [...] made to ensure accuracy; however, inadvertent computerized buhr mill operator errors may be pre sent. Electronically signed by: Kyler Gaitan MD PhD FACC 05/13/2018 documented in t his encounter Plan of Treatment +--------+---------+ + + + | Date | Type | Specialty | Care Team | Description | +--------+---------+ + + + | 09/27/ | Office | Nephrology | James Pearce MD | | | 2019 | Visit | | [address] [facility] | | | | | | [address] [place] | | | | | | [address] | | | | | | | | +--------+---------+ + + + + + +--------+ + + | Name | Type | Priori | Associated Diagnoses | Order Schedule | | | | ty | | | + + +--------+ + + | External Referral to | Outpatient | Routin | Congestive heart | Ordered: 05/16/2018 | | [facility] | Referral | e | failure, unspecified | | | Cardiology | | | HF chronicity, | | | | | | unspecified heart | | | | | | failure type ([facility]) | | | | | | Coronary artery | | | | | | disease, angina | | | | | | presence | | | | | | unspecified, | | | | | | unspecified vessel | | | | | | or lesion type, | | | | | | unspecified whether | | | | | | [place] or | | | | | | transplanted heart | | + + +--------+ + + documented as of this encounter Visit Diagnoses + + | Diagnosis | + + | Congestive heart failure, unspecified HF chronicity, unspecified heart failure type | | ([facility]) - Primary | + + | Myocardial infarction, unspecified [place] type, unspecified artery (HCC) | + + | Essential hypertension Unspecified essential hypertension | + + | Cerebrovascular accident (CVA), unspecified mechanism (HCC) | + + | Heart disease Heart disease, unspecified | + + | Coronary artery disease, angina presence unspecified, unspecified vessel or lesion | | type, unspecified whether [place] or transplanted heart | + + documented in this encounter
--- OUTSIDE RECORDS SUMMARY | ~2019-06-26 | XMS | Encounter Summary ---
Demographics + + + | Address | [address] | | | [place] [address] | + + + | Home Phone | | + + + | Preferred Language | Unknown | + + + | Marital Status | | + + + | Restoration Affiliation | 1041 | + + + [...] Team Providers + +------+ + | Care Physician/Internist Name | Role | Phone | + [...] | Congestive | Сер[place]ей | [address] | | | | | heart | MD Don | [place], | | | | | failure, | [address] | [place] | | | | | unspecified | St [place] | [address] | | | | | HF | [place], [place] | Phone: | | | | | chronicity, | [address] | [phone] | | | | | unspecified | Phone: | Fax: | | | | | heart | [phone] | [phone] | | | | | failure type | Fax: | | | | | | (HCC) | [phone] | | | | | | Coronary [...] | | | | | | | [place] or | | | | | | | transplanted | | | | | | | heart | | | | | | | Procedures | | | | | | | ECHO | | | | | | | Complete [place] | | | | | | | ECHO HEART | | | | | | | XTHORACIC,CO | | | | | | | MPLETE W | | | | | | | DOPPLER [place] | | | | | | | [...] [address] | | | | | [address] [place], | [address] [place] | | | | | [place] [address] | [place] [address] | | | | | [phone] | [phone] | | | | | | | [...] | | | | | | [address] [place], [place] | | | | | | [address] | | | | | | | [...] whether | | | | | | [place] or | | | | | | [...] or lesion | | type, unspecified whether [place] or transplanted heart | + + documented in this encounter"
--- OUTSIDE RECORDS SUMMARY | ~2019-06-26 | XMS | Encounter Summary ---
Demographics + + + | Address | [address] | | | [place] [address] | + + + | Home Phone | | + + + | Preferred Language | Unknown | + + + | Marital Status | | + + + | Quaker Affiliation | 1041 | + + + [...] Team Providers + +------+ + | Care Radiation Therapist Name | Role | Phone | [...] | | | failure, | [address] | | | | | unspecified | St [place] | [place], [place] | | | | | HF | [place], [place] | [address] Phone: | | | | | chronicity, | [address] | [phone] | | | | | unspecified | Phone: | Fax: | | | | | heart | [phone] | [phone] | | | | | failure type | Fax: | | | | | | ([facility]) | [phone] | | | | | | Coronary [...] | | | | | | | [place] or | | | | | | [...] | heart | NW | [address] | | | | | failure) | [place] | [facility] | | | | | (HCC) | [address] | [facility], [place] | | | | | Procedures | [place], | [address] Phone: | | | | | 2 month | [place] | [phone] | | | | | follow up | [address] | Fax: | | | | | with | Phone: | [phone] | | | | | [place] | [phone] | | | | | | | Fax: | | | | | | | [phone] | | +--------+--------+ + + + + Encounter Details +--------+---------+ + + + | Date | Type | Department | Care Team | Description | +--------+---------+ + + + | 05/13/ | Office | [facility] | Сергей Gaitan | Congestive heart | | 2018 | Visit | CARDIOLOGY [address] | MD Don [address] | failure, unspecified | | | | [place], | [address] [place] | HF chronicity, | | | | [place] [address] | [place] [address] | unspecified heart | | | | [phone] | [phone] | failure type (HCC) | | | | | | (Primary Dx); | | | | | | Myocardial | | | | | | infarction, | | | | | | unspecified MD type, | | | | | | [...] whether | | | | | | [place] or | | | | | | [...] Medical Record I previously reviewed records from [facility] for hospitalization,including H&P, Discharge Summary and lab [...] made to ensure accuracy; however, inadvertent computerized mold sander errors may be pre sent. Electronically signed by: Kyler Gaitan MD PhD FACC 05/13/2018 documented in t his encounter Plan of Treatment +--------+---------+ + + + | Date | Type | Specialty | Care Team | Description | +--------+---------+ + + + | 09/27/ | Office | Nephrology | James Pearce MD | | | 2019 | Visit | | [address] [facility] | | | | | | [address] [place] | | | | | | [address] | | | | | | | | +--------+---------+ + + + + + +--------+ + + | Name | Type | Priori | Associated Diagnoses | Order Schedule | | | | ty | | | + + +--------+ + + | External Referral to | Outpatient | Routin | Congestive heart | Ordered: 05/16/2018 | | [facility] | Referral | e | failure, unspecified | | | Cardiology | | | HF chronicity, | | | | | | unspecified heart | | | | | | failure type ([facility]) | | | | | | Coronary artery | | | | | | disease, angina | | | | | | presence | | | | | | unspecified, | | | | | | unspecified vessel | | | | | | or lesion type, | | | | | | unspecified whether | | | | | | [place] or | | | | | | transplanted heart | | + + +--------+ + + documented as of this encounter Visit Diagnoses + + | Diagnosis | + + | Congestive heart failure, unspecified HF chronicity, unspecified heart failure type | | ([facility]) - Primary | + + | Myocardial infarction, unspecified MD type, unspecified artery (HCC) | + + | Essential hypertension Unspecified essential hypertension | + + | Cerebrovascular accident (CVA), unspecified mechanism (HCC) | + + | Heart disease Heart disease, unspecified | + + | Coronary artery disease, angina presence unspecified, unspecified vessel or lesion | | type, unspecified whether [place] or transplanted heart | + + documented in this encounter
--- OUTSIDE RECORDS SUMMARY | ~2019-06-26 | XMS | Encounter Summary ---
Demographics + + + | Address | [address] | | | [place] [address] | + + + | Home Phone [...] Team Providers + +------+ + | Care Fixed Capital Clerk Name | Role | Phone | + +------+ + PCP | Unavailable | + +------+ + Encounter Details +--------+ + + + + | Date | Type | Department | Care Team | Description | +--------+ + + + + | 10/14/ | Hospital | [facility] | [place], | | | 2000 | Encounter | MED CTR GENERIC OP | MD [address] [facility] | | | | | CONV DEPT [address] | [place], [place] | | | | | [place], | [address] | | | | | [place] [address] | | | | | | [phone] | | | +--------+ + + + [...] [place] | | | | | | [address] | | | | | | | | +--------+---------+ + + + documented as of this encounter Visit Diagnoses Not on filedocumented in this encounter"
--- OUTSIDE RECORDS SUMMARY | ~2019-06-26 | XMS | Encounter Summary ---
Demographics + + + | Address | [address] | | | [place] [address] | + + + | Home Phone | | + + + | Preferred Language | Unknown | + + + | Marital Status | | + + + | Taoism Affiliation | 1041 | + + + | Race | Unknown | + + + | Ethnic Group | Unknown | + + + Author + + + | Author | [facility] | | | and [place] | + + + | Organization | [facility] | | [...] Team Providers + +------+ + | Care Cement Mason Maintenance Name | Role | Phone | + [...] (primary) | | 2019 | | NEPRHOLOGY [place] | [address] [place] | hypertension; Type 2 | | | | [address] | [address] [place], [place] | diabetes mellitus | | | | [address] [place], [place] | [address] | with complications | | | | [address] | | (HCC); Acute kidney | | | | [phone] | | failure (HCC) | +--------+ + [...] 2019 | Visit | | [address] [facility] | | | | | | [address] [place], [place] | | | | | | [address] | | | | | | | [...]
--- OUTSIDE RECORDS SUMMARY | ~2019-06-26 | XMS | Encounter Summary ---
Demographics + + + | Address | [address] | | | [place] [address] | + + + | Home Phone [...] Team Providers + +------+ + | Care Childcare Aide Name | Role | Phone | + +------+ + | Bernadette Armendariz PA-C | PCP | | + +------+ + Encounter Details +--------+ + + + + | Date | Type | Department | Care Team | Description | +--------+ + + + + | 03/18/ | Orders Only | [facility] | James Pearce MD | Essential (primary) | | 2019 | | NEPHROLOGY [place] | [address] [place] | hypertension | | | | [address] [place] | [address] [place], [place] | (Primary Dx); | | | | [address] [place], [place] | [address] | Secondary | | | | [address] | | hyperparathyroidism | | | | [phone] | | (HCC); CKD (chronic | | | | | | kidney disease), | | | | | | stage IV ([facility]); | | | | | | Anemia of chronic | | | | | | renal failure, stage | | | | | | 4 (severe) ([facility]); | | | | | | Vitamin [...] 2019 | Visit | | [address] [facility] | | | | | | [address] [place], [place] | | | | | | [address] | | | | | | | [...] | | | | 4 (severe) ([facility]) | | + +------+--------+ + + | [...]
--- OUTSIDE RECORDS SUMMARY | ~2019-06-26 | XMS | Encounter Summary ---
Demographics + + + | Address | [address] | | | [place] [address] | + + + | Home Phone | | + + + | Preferred Language | Unknown | + + + | Marital Status | | + + + | Anabaptist Affiliation | 1041 | + + + | Race | Unknown | + + + | Ethnic Group | Unknown | + + + Author + + + | Author | [facility] | | | and [place] | + + + | Organization | [facility] | | [...] Team Providers + +------+ + | Care High Climber Name | Role | Phone | + [...] + + | 03/16/ | Documentati | [facility] | Luis, | Results (03/13/19) | | 2019 | on | NEPHROLOGY [place] | [facility] | | | | | [address] | [employer] Teacher | | | | | [facility] [address] | | | | | | [place], [place] | | | | | | [address] | | | | | | [phone] | | | +--------+ + + + [...] Visit | | [address] [facility] | | | | | | [address] [place], [place] | | | | | | [address] | | | | | | | [...] 1.005 - 1.030 | | | | [place] | | | | | + + [...]
--- OUTSIDE RECORDS SUMMARY | ~2019-06-26 | XMS | Encounter Summary ---
Demographics + + + | Address | [address] | | | [place] [address] | + + + | Home Phone [...] Team Providers + +------+ + | Care Recovery Room Nurse Name | Role | Phone | [...] Mahin [place] | | | | | [place], [place] | [address] | | | | | [address] | | | | | | [phone] | | | +--------+ + + + [...] 2020 | Visit | | [address] [facility] | | | | | | [address] [place] | | | | | | [address] | | | | | | | [...] MV A Brock: 0.82 m/s MV Dec [place]: 7.33 | | | m/s2 MV DecT: [...] | | | TR Vmax: 3.14 m/s Metal Spraying Machine Operator: ZORA Authenticated by: | | | TAMARA [...] cmLVIDd: 5.42 cmLVPWd: 0.88 cmLVOT Area: 3.30 [id number] Diam: | | 2.05 cm%FS: 19.68 %EF(Teich): [...] (A-L): 25.38 ml/m2LAAs | | A2C: 14.99 [id number] A-L A2C: 42.95 mlLALs A2C: 4.44 cmLAAs A4C: 15.41 [id number] | | A-L A4C: 43.34 mlLALs A4C: 4.65 cmRAAs: 12.68 [id number] A-L: 35.28 mlRAESV MOD: | | 33.87 mlRALs: 3.87 cmTAPSE: 1.84 cmAV maxP.42 mmHgAV meanP.69 mmHgAV | | Vmax: 1.36 m/John Vmean: 0.90 m/John VTI: 23.16 cmAVA Vmax: 2.43 cm2AVA (VTI): | | 2.55 xy3IZPI (Vmax): 0.00 cm2/m2AVAI (VTI): 0.00 cm2/m2LVOT maxP.01 mmHgLVOT | | meanP.12 mmHgLVSI Dopp: 34.03 ml/m2LVSV Dopp: 59.22 mlLVOT Vmax: 1.00 | | m/sLVOT Vmean: 0.69 m/sLVOT VTI: 17.90 cmMV A Brock: 0.82 m/sMV Dec [place]: 7.33 | | m/s2MV DecT: 140.20 msMV E Brock: 1.02 m/sMV E/A Ratio: 1.25MV PHT: 40.65 msMVA By | | PHT: 5.41 fp4Nhxcxg e': 0.03 m/sSeptal E/e': 29.00Lateral e': 0.04 m/sLateral | | E/e': 24.10RAP: 10 mmHgRVSP: 49.46 mmHgTR maxP.46 mmHgTR Vmax: 3.14 m/s | | Metal Spraying Machine Operator: ZORAAuthenticated by: Kiko BUTLER Date/Time: 01-28-2018 18:52:56 [...] A Brock: 0.82 m/s | |MV Dec [place]: 7.33 m/s2 | |MV DecT: 140.20 ms [...] |TR Vmax: 3.14 m/s | | | |Metal Spraying Machine Operator: DBS | |Authenticated by: TAMARA MAHONEY MD [...]
--- OUTSIDE RECORDS SUMMARY | ~2019-06-26 | XMS | Clinical Summary ---
Demographics + + + | Address | [address] | | | [place] [address] | + + + | Home Phone [...] + | Author | [facility] | | | and [place] | + + + | Organization | [facility] | | | [...] Providers + +------+ + | Care Supervisor Fertilizer Processing Name | Role | Phone | + [...] + + | Overview: Echocardiogram done at [facility] on 01/28/18 | | shows overall [...] Nephrology | James Pearce MD | Other ([facility]) | | 2019 | | | | | +--------+ + + + + | 06/22/ | Office | Nephrology | James Pearce MD | CKD (chronic kidney | | 2019 | Visit | | | disease), stage IV | | | | | | ([facility]) (Primary Dx); | | | | | | Anemia of chronic | | | | | | renal failure, stage | | | | | | 4 (severe) ([facility]); | | | | | [...] insulin | | | | | | ([facility]); Secondary | | | | | | hyperparathyroidism | | | | | | ([facility]); Nephrotic | | | | [...] Suarez | | | | | | Cable Armorer Operator | | +--------+ + + + + [...] | | | | | | [address] [place] | | | | | | [address] | | | | | | | [...] | | + +--------+ +--------+ +---------+--------+ | [facility] | IHS | [id number] | | | | Indemn | | SERVICE | YELLOW | | 018-Pr | | | ity | | | HAWK | | esent | | | | + +--------+ +--------+ +---------+--------+ | [employer] | [employer] | [id number] | 01/28/20 | [phone] | | Medica | | MEDICAID HMO | HEALTH | | 18-Pre | 1 | | id | | | MDCD | | sent | | | | | | [place] | | | | | | + +--------+ +--------+ +---------+--------+ | [facility] | IHS | [id number] | | | | Indemn | | SERVICE | YELLOW | | 018-Pr | | | ity | | | HAWK | | esent | | | | + +--------+ +--------+ +---------+--------+ | [employer] | [employer] | [id number] | 02/23/20 | [phone] | | Medica | | MEDICAID HMO [...] Person | Self | [birth year] | [address] | | | al/Fam | | 1954 | [phone] | [place] | | | jeni | | | 4 (Home) | [address] | + +--------+ +--------+ + + | Maria Ines Martin | Person | Self | [birth year] | [address] | | | al/Kyle | | 1955 | [phone] | [address] [place] | | | jeni | | | 2 (Home) | [address] | + +--------+ +--------+ + + Advance Directives + + + + + | Type | Date Recorded | Patient | Explanation | | | | Surface Plate Inspector | | + + + + + | Power of | | | | | School Cook | | | | + + + + + | Advance | | | | | Directive | | | | + + + + +
--- OUTSIDE RECORDS SUMMARY | ~2019-06-26 | XMS | Encounter Summary ---
Demographics + + + | Address | [address] | | | [place] [address] | + + + | Home Phone [...] Team Providers + +------+ + | Care Lead Setter Name | Role | Phone | + +------+ + | Bernadette Armendariz PA-C | PCP | | + +------+ + Encounter Details +--------+ + + + + | Date | Type | Department | Care Team | Description | +--------+ + + + + | 08/05/ | Hospital | [facility] | Conversion | CAD in [place] | | 2019 - | Encounter | [facility] | Transaction, | artery; Congestive | | | | CARE FLOOR 4 [address] | Provider Unknown | heart failure, | | | | [address] | [phone] | unspecified HF | | 2019 | | [place], [place] | | chronicity, | | | | [address] | Brynn Crawford MD | unspecified heart | | | | [phone] | [address] | failure type (HCC); | | | | | [place] [address] | Precordial pain; | | | | | [phone] | Ischemic | | | | | [...] 08/11/181929 Date of Service: 08/10/18941 Status: Signed Patcher: Gustavo Castorena MD (Physician) [facility] Service: Hospitalist Physician Discharge Summary Patient [...] 08/06/2018 No acute cardiopulmonary abnormality. Signed by: Sachni Adam Sign Date/Time: 08/06/2018 11 :43 AM [...] Invalid input(s): ABG Disposition: HOME Follow up: [facility] [address] [place] [address] [place] [address] Schedule an appointment as soon as possible [...] 1558 Date of Service: 08/11/181499 Status: Signed Patcher: Cinthya Carmen RN (Registered Nurse) Pt discharge home with family. Pt states understanding about scripts and paperwork. IV d/c. Tele d/c. Family to transport pt home. onver federico Transaction, Provider Unknown - 08/11/2018 12:50 PM PST Case Management by Damaris Canchola RN at 08/11/181249 Author: Damaris Canchola RN Service: (none) Author Type: Registered Nurse Filed: 08/11/181249 Date of Service: 08/11/181249 Status: Signed Patcher: Damaris Canchola RN (Registered Nurse) Met with [...] Date of Service: 08/11/18 1045 Status: Signed Patcher: Shin Rivera MD (Physician) PCP : [facility] LOS: 5 days Maria Ines Martin [...] was completed later after rounds. Dictation software, [employer], was used which may contain error for [...] 08/11/18615 Date of Service: 08/11/18614 Status: Signed Patcher: Francy Beckford RN (Registered Nurse) VSS. Patient [...] 08/10/181751 Date of Service: 08/10/181747 Status: Signed Patcher: Kaia Penaloza RN (Registered Nurse) Pt down [...] Notes by Teena Encinas RD at 08/10/18 1916 Author: Teena Encinas RD Service: (none) Author Type: Registered Dietitian Filed: 08/10/18 4312 Date of Service: 08/10/186 Status: Signed Patcher: Teena Encinas RD (Registered Dietitian) 08/10/18 6575 Subjective Timepoint Follow up (diet education) Food and Nutrition Knowledge Area(s) and Level of Knowledge In to see pt for renal cardiac diet. Pt K+ WNL at this time but hx hyperkalemia. Discussed high potassium foods and provided list from [facility]. Discussed th at she does not need to limit at this time with ARF and WNL K+ but may need to in the future . Provided low sodium handout from [facility] and discussed. Pt reports that she [...] Date of Service: 08/10/18 1209 Status: Signed Patcher: Shin Rivera MD (Physician) PCP : [facility] LOS: 4 days Maria Ines Martin [...] was completed later after rounds. Dictation software, [employer], was used which may contain error for [...] 0957 Date of Service: 08/10/18951 Status: Signed Patcher: Gustavo Castorena MD (Physician) [facility] Service: Hospitalist Progress Note Hospital Day: LOS: 4 days SUBJECTIVE Still c/o back pain. Slept well Did not see back up worker HPI: Ms. 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 Disposition: Home ? Code Status: Full Code Gustavo Castorena MD 08/10/2018 9:57 AM onversion Transactio n, Provider Unknown - 08/10/2018 6:23 AM PST Nurse Progress Note by Francy Beckford RN at 08/10/18622 Author: Francy Beckford RN Service: (none) Author Type: Registered Nurse Filed: 08/10/18627 Date of Service: 08/10/18622 Status: Signed Patcher: Francy Beckford RN (Registered Nurse) VSS. Pt [...] 08/09/181751 Date of Service: 08/09/181749 Status: Signed Patcher: Kaia Penaloza RN (Registered Nurse) VSS today. [...] Notes by Shin Rivera MD at 08/09/18 3573 Author: Shin Rivera MD Service: Nephrology Author Type: Physician Filed: 08/10/18 0751 Date of Service: 08/09/181747 Status: Signed Patcher: Shin Rivera MD (Physician) PCP : [facility] LOS: 3 days Maria Ines Martin [...] outpatient follow up with Dr. Pearce in [place]. Strict low K diet. Diet 2 gm [...] was completed later after rounds. 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 Disposition: Home ? Code Status: Full Code Gustavo Castorena MD 08/09/2018 2:16 PM onversion Transactio n, Provider Unknown - 08/09/2018 6:26 AM PST Nurse Progress Note by Francy Beckford RN at 08/09/18 5534 Author: Francy Beckford RN Service: (none) Author Type: Registered Nurse Filed: 08/09/18 0728 Date of Service: 08/09/18625 Status: Signed Patcher: Francy Beckford RN (Registered Nurse) Patient complained [...] 08/08/182000 Date of Service: 08/08/182000 Status: Signed Patcher: Nimo Heredia RN (Registered Nurse) No significant [...] the orig inal. Progress Notes by Brynn Carwford MD at 08/08/181641 Author: Brynn Crawford MD Service: Cardiology Author Type: Physician Filed: 08/08/18 180 Date of Service: 08/08/18 164 Status: Signed Patcher: Brynn Crawford MD (Physician) [facility] Service: Cardiology/[facility] Progress Note RE: Maria Ines [...] Mild mitral regurgitation is present. Scores: 1. [id number]-Vbto Score: 3 2. Armenian Anginal Score: 3 3. NYHA Score: 2 [...] 1541 Date of Service: 08/08/181535 Status: Signed Patcher: Damaris Canchola RN (Registered Nurse) Tc from [facility]([phone]), CM with [facility] re d/c plan, infor med that d/c date is still unknown. [facility] transport dept, states they dont provide transportation on wknds, but would need to call [facility] [place] transport call . If [facility] is not able to provide transportation, need to ask family or pay for taxi. Kathe Gustavo Lara MD - 08/08/2018 2:53 PM PSTFormatting of this note might be different from the or iginal. Progress Notes by Gustavo Castorena MD at 08/08/18 5011 Author: Gustavo Castorena MD Service: Internal Medicine Author Type: Physician Filed: 08/08/181456 Date of Service: 08/08/181452 Status: Signed Patcher: Gustavo Castorena MD (Physician) [facility] Service: Hospitalist Progress Note Hospital Day: [...] LIST Principal Problem: GRACIELA (acute kidney injury) ([facility]) Active Problems: Ischemic cardiomyopathy Chronic systolic heart failure (HCC) Hyperkalemia Essential hypertension Type 2 diabetes mellitus with complication, with long-term current use of insulin ([facility]) ASSESSMENT / PLAN Heart failure reduced [...] 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 Disposition: Home ? Code Status: Full Code Gustavo Castorena MD 08/08/2018 2:53 PM Shin Vale MD - 08/08/2018 11:26 AM PST Progress Notes by Shin Rivera MD at 08/08/18 1126 Author: Shin Rivera MD Service: Nephrology Author Type: Physician Filed: 08/10/18 1223 Date of Service: 08/08/18 1126 Status: Signed Patcher: Shin Rivera MD (Physician) PCP : [facility] LOS: 2 days Maria Ines Martin [...] was completed later after rounds. Dictation software, [employer], was used which may contain error for similar sounding words nabor jackman after review. Personal communication is requested for any clarification. Prognosis is guarded in view of multiple comorbid illnesses and acute on chronic renal fail ure including but not limited to potential need for SET UP PERSON and . amLODIPine 7.5 mg Oral Daily [...] 0700 Date of Service: 08/08/1859 Status: Signed Patcher: Little Infante RN (Registered Nurse) Pt had [...] 08/07/182005 Date of Service: 08/07/182005 Status: Signed Patcher: Nimo Heredia RN (Registered Nurse) No significant [...] Management by Damaris Canchola RN at 08/07/18 0864 Author: Damaris Canchola RN Service: (none) Author Type: Registered Nurse Filed: 08/07/18 1202 Date of Service: 08/07/18 1156 Status: Signed Patcher: Damaris Canchola RN (Registered Nurse) Tc to Kathrin([phone]), CM with [facility] re d/c plan, LMTCB Per pt, wants CM to call [employer] rail transportation operator re transport back [phone]. Per [place], for wknd medicaid transport call Kathe onver federico Transaction, Provider Unknown - 08/07/2018 11:47 AM PST Case Management by Damaris Canchola RN at 08/07/18 1147 Author: Damaris Canchola RN Service: (none) Author Type: Registered Nurse Filed: 08/07/18 1149 Date of Service: 08/07/18 1147 Status: Signed Patcher: Damaris Canchola RN (Registered Nurse) 08/07/18 1100 [...] with spouse and child(disabled chi ld) in [place]. Pt states she is indep with all her adl's, but does use a cane if needed f or outdoors as she has vision deficits.no home o2, no anticoagulants, no HD. Plans to return home Patient's PCP is: 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 Disposition: Home ? Code Status: Full Code Gustavo Castorena MD 08/07/2018 10:50 AM Brynn Hanna MD - 8:47 AM PST Progress Notes by Brynn Crawford MD at 08/07/18 2816 Author: Brynn Crawford MD Service: Cardiology Author Type: Physician Filed: 08/07/18 0914 Date of Service: 08/07/18 0847 Status: Signed Patcher: Brynn Crawford MD (Physician) [facility] Service: Cardiology/[facility] Progress Note RE: Maria Ines [...] Mild mitral regurgitation is present. Scores: 1. [id number] Score: 2. Armenian Anginal Score: 3. NYHA Score: ASSESSMENT: 1. [...] her [facility] better ejection fraction than what it was reported previously at [facility]. Regardless with her history of chest [...] 08/07/18626 Date of Service: 08/07/18625 Status: Signed Patcher: Agustina Cade RN (Registered Nurse) End of shift audit complete. AGUSTINA CADE RN onver federico Transaction, Provider Unknown - 08/06/2018 5:18 PM PST Nurse Progress Note by Jacquie Miranda RN at 08/06/181717 Author: Jacquie Miranda RN Service: (none) Author Type: Registered Nurse Filed: 08/06/181718 Date of Service: 08/06/181717 Status: Signed Patcher: Jacquie Miranda RN (Registered Nurse) End of shift chart check completed Gustavo Lara MD - 08/06/2018 1:52 PM PSTFormatting of this note might be different from the or iginal. 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 Disposition: Home ? Code Status: Full Code Gustavo Castorena MD 08/06/2018 1:55 PM onversion Transactio n, Provider Unknown - 08/06/2018 12:04 PM PST Progress Notes by Anjali Kerr RD at 08/06/18 1204 Author: Anjali Kerr RD Service: (none) Author Type: Registered Dietitian Filed: 08/06/18 1205 Date of Service: 08/06/18 120 Status: Signed Patcher: Anjali Kerr RD (Registered Dietitian) 08/06/18 1575 Subjective Timepoint Admit Pt c/o Pt triggered for dysphagia. Pt admitted for acute renal failure. 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 Pt went ov er her hx of [...] any concerns for dysphag ia consider ordering COTTON BREEDER eval. Anthropometrics Weight change Pt's BMI is 34 and pt is 166% of IBW. Pt reports she has gained wt over the p ast 4 months after stopping meth. Biochemical data, medical tests, and procedures reviewed Biochemical data, medical tests, and procedures reviewed Labs reviewed. Recommendations Recommended energy needs Continue diet as ordered with modications per COTTON BREEDER, if needed. Enco urage po intake as [...] 0936 Date of Service: 08/06/18850 Status: Signed Patcher: Brynn Crawford MD (Physician) [facility] Service: Cardiology/[facility] Progress Note RE: Maria Ines [...] prolonged QRS Imaging Chest X-Ray: Scores: 1. [id number] Score: 2. Armenian Anginal Score: 3. NYHA Score: ASSESSMENT: 1. [...] 08/06/18517 Date of Service: 08/06/18517 Status: Signed Patcher: Cheryl Patel RN (Registered Nurse) End of shift audit complete. onver federico Transaction, Provider Unknown - 08/05/2018 5:56 PM PST Nurse Progress Note by Ghada Crawley RN at 08/05/181755 Author: Ghada Crawley RN Service: (none) Author Type: Registered Nurse Filed: 08/05/181755 Date of Service: 08/05/18 1756 Status: Signed Patcher: Ghada Crawley RN (Registered Nurse) End of shift review complete GHADA CRAWLEY RN Brynn Merrill MD - 08/05/2018 1:38 PM PSTFormatting of this note might be different from the orig inal. Progress Notes by Brynn Crawford MD at 08/05/18 1750 Author: Brynn Crawford MD Service: Cardiology Author Type: Physician Filed: 08/05/18 1602 Date of Service: 08/05/18 2865 Status: Signed Patcher: Brynn Crawford MD (Physician) Mrs. Martin presented [...] was seen by Dr. Vic Gaitan in [facility] for evaluation. An echoca rdiogram was [...] cant ST or T-wave abnormalities. Scores: 1. [id number] Score: 4 2. Armenian Anginal Score: 2 3. NYHA Score: 2-3 [...] Visit | | [address] [facility] | | | | | | [address] | | | | | | [address] | | | | | | | [...] | | | Fingerstick | performed at [facility];[address] | | LAB | | | | [address];[place] | | | | | | [address] | | | | + + + [...] | | | Fingerstick | performed at [facility];[address] | | LAB | | | | [address];[place], [place] | | | | | | [address] | | | | + + + [...] | | | | | performed at [facility], [address] | | | | | | [address], | | | | | | [place] [address] | | | | + + + [...] | | | Fingerstick | performed at [facility];[address] | | LAB | | | | [address];[place], [place] | | | | | | [address] | | | | + + + [...] | | | Fingerstick | performed at [facility];[address] | | LAB | | | | [address];[place], [place] | | | | | | [address] | | | | + + + [...] | | | Fingerstick | performed at [facility];[address] | | LAB | | | | [address];[place], [place] | | | | | | [address] | | | | + + + [...] | | | Fingerstick | performed at [facility];[address] | | LAB | | | | [address];[place] | | | | | | [address] | | | | + + + [...] EXTERNAL | | | | performed at [facility], [address] | | LAB | | | | [place] [address], | | | | | | [place] [address] | | | | + + + [...] | | | | | performed at [facility], [address] | | | | | | [facility], | | | | | | [place] [address] | | | | + + + [...] | | | Fingerstick | performed at [facility];[address] | | LAB | | | | [address];[place], [place] | | | | | | [address] | | | | + + + [...] | | | Fingerstick | performed at [facility];[address] | | LAB | | | | [address];[place], [place] | | | | | | [address] | | | | + + + [...] | | | Fingerstick | performed at [facility];[address] | | LAB | | | | [address];[place] | | | | | | [address] | | | | + + + [...] EXTERNAL | | | | performed at [facility], [address] | | LAB | | | | [place] [address], | | | | | | [place] [address] | | | | + + + [...] EXTERNAL | | | | performed at [facility], [address] | | LAB | | | | [place] [address], | | | | | | [place] [address] | | | | + + + [...] | | | | | performed at [facility], [address] | | | | | | [facility], | | | | | | [place] [address] | | | | + + + [...] | | | Fingerstick | performed at [facility];[address] | | LAB | | | | [address];[place], [place] | | | | | | [address] | | | | + + + [...] | | | Fingerstick | performed at [facility];[address] | | LAB | | | | [address];[place] | | | | | | [address] | | | | + + + [...] radial artery and a | | | 6-Kyrgyz sheath was placed. The JL-3.5 catheter was [...] right radial artery and a | | 6-Kyrgyz sheath was placed. The JL-3.5 catheter was [...] | | | Fingerstick | performed at [facility];[address] | | LAB | | | | [address];[place] | | | | | | [address] | | | | + + + + + + + + | Specimen | + + | | + + + +---------+ + + | Performing | Address | City/State/Zipcode | Phone Number | | Organization | | | | + +---------+ + + | EXTERNAL LAB | | | | + +---------+ + + [place] [facility] (08/08/2018 12:12 PM PST) + + + + + + | Component | Value | Ref Range | Performed | Pathologist | | | | | At | Signature | + + + + + + | [facility] [place] | 96.5 (H)Comment: | mg/L | EXTERNAL [...] + + + + + + | [place] | 1.50Comment: Reference | | EXTERNAL | | | a Free | range: 0.26 to | | LAB | | | Light Chain | 1.65Testing performed at | | | | | Ratio | [facility], [address] | | | | | | [place] | | | | | | [address] | | | | + + + [...] | | Comp 4 | performed at [facility], [address] | | LAB | | | | [address], | | | | | | [place] [address] | | | | + + + [...] at | | | | | | [facility], [address] [facility] | | | | | | [place] | | | | | | [address] | | | | + + + [...] | | | | | [place] [address] | | | | + + + [...] | | | | | | at [facility], [address] | | | | | | [place] [address], | | | | | | [place] [address] | | | | + + + [...] | | | | | performed at [facility], [address] | | | | | | [facility], | | | | | | [place] [address] | | | | + + + [...] | | | | | performed at [facility], [address] | | | | | | [address] | | | | | | [place] [address] | | | | + + + [...] | | | | | with both CA-3 and | | | | | | [...] | | | 3 | performed by [facility], | | | | | | [address], | | | | | | [facility] [address] | | | | + + + [...] | | | | | | [place] [address] | | | | + + + [...] | | Quant, CSF | performed at [facility], | | | | | | [address], [address], | | | | | | [place] [address] | | | | + + + [...] EXTERNAL | | | | performed at [facility], [address] | | LAB | | | | [address], | | | | | | [place] [address] | | | | + + + [...] EXTERNAL | | | | performed at [facility], [address] | | LAB | | | | [address], | | | | | | [place] [address] | | | | + + + [...] | | | | | [place] [address] | | | | + + + [...] | | | Fingerstick | performed at [facility];[address] | | LAB | | | | [address];[place], [place] | | | | | | [address] | | | | + + + [...] | | | Fingerstick | performed at [facility];[address] | | LAB | | | | [address];[place], [place] | | | | | | [address] | | | | + + + [...] EXTERNAL | | | | performed at [facility], [address] | | LAB | | | | [facility], | | | | | | [place] [address] | | | | + + + [...] EXTERNAL | | | | performed at [facility], [address] | | LAB | | | | [address], | | | | | | [place] [address] | | | | + + + [...] | | | | | performed at [facility], [address] | | | | | | [facility], | | | | | | [place] [address] | | | | + + + [...] | | | Fingerstick | performed at [facility];[address] | | LAB | | | | [address];[place] | | | | | | [address] | | | | + + + [...] | | | Fingerstick | performed at [facility];[address] | | LAB | | | | [address];[place], [place] | | | | | | [address] | | | | + + + [...] | | | | | performed at [facility] | | | | | | [facility];[place] | | | | | | [address] | | | | + + + [...] | | | Fingerstick | performed at [facility];[address] | | LAB | | | | [address];[place] | | | | | | [address] | | | | + + + [...] | | at Ratio | performed at [facility], [address] | | LAB | | | | [facility], | | | | | | [place] [address] | | | | + + + [...] | | | | | performed at [facility], [address] | | | | | | [facility], | | | | | | [place] [address] | | | | + + + [...] LAB | | | | performed at [facility], [address] | | | | | [address], | | | | | | [place] [address] | | | | + + + [...] LAB | | | | performed at [facility], [address] | | | | | [address], | | | | | | [place] [address] | | | | + + + [...] | | | Fingerstick | performed at [facility];[address] | | LAB | | | | [address];[place], [place] | | | | | | [address] | | | | + + + [...] EXTERNAL | | | | performed at [facility], [address] | | LAB | | | | [address], | | | | | | [place] [address] | | | | + + + [...] EXTERNAL | | | | performed at [facility], [address] | | LAB | | | | [address], | | | | | | [place] [address] | | | | + + + [...] | | | | | performed at [facility], [address] | | | | | | [facility], | | | | | | [place] [address] | | | | + + + [...] | | | Fingerstick | performed at [facility];[address] | | LAB | | | | [address];[place], [place] | | | | | | [address] | | | | + + + [...] | | | Fingerstick | performed at [facility];[address] | | LAB | | | | [address];[place] | | | | | | [address] | | | | + + + [...] | A [place]: 0.60 m/s TV Dec [place]: 2.33 m/s2 TV Dec Time: | | | 240.52 ms TV E [place]: 0.56 m/s TV E/A Ratio: 0.92 | | | Tax Evaluator: GONZALO Authenticated by: Brynn Crawford MD Report Date/Time: | | | -- [id number] | | + + + + + [...] mlLAESV Index (A-L): 40.23 ml/m2LAAs A2C: 24.44 [id number] A-L | | A2C: 74.48 mlLALs A2C: 6.81 cmLAAs A4C: 21.96 [id number] A-L A4C: 68.67 mlLALs | | A4C: 5.96 cmRAAd: 13.73 [id number] A-L: 33.61 mlRAEDV MOD: 31.44 mlRALd: 4.76 | | cmEPSS: 2.39 cmAV maxP.50 mmHgAV meanP.57 mmHgAV Vmax: 1.76 m/John | | Vmean: 1.20 m/John VTI: 39.54 cmAVA Vmax: 2.19 cm2AVA (VTI): 2.37 co9BBMD Vmax: | | 0.00 cm2/m2AVAI (VTI): 0.00 [...] 25.31 cmTV A [place]: 0.60 m/sTV Dec [place]: 2.33 m/s2TV | | Dec Time: 240.52 msTV E [place]: 0.56 m/sTV E/A Ratio: 0.92 Tax Evaluator: | | GDAuthenticated by: Brynn Crawford MDReport Date/Time: [id number] | | IMPRESSION: 1. Overall left ventricular [...] A [place]: 0.60 m/s | |TV Dec [place]: 2.33 m/s2 | |TV Dec Time: 240.52 ms | |TV E [place]: 0.56 m/s | |TV E/A Ratio: 0.92 | | | |Tax Evaluator: GD | |Authenticated by: Brynn Crawford MD | |Report Date/Time: -- [id number] | | | |IMPRESSION: | |1. Overall [...] LAB | | | | performed at [facility], [address] | | | | | | [address], | | | | | | [place] [address] | | | | + + + [...] - 1.030 | EXTERNAL | | | [place] | | | LAB | | + [...] | | | Urine | performed at [facility], [address] | | LAB | | | | [address], | | | | | | [place] [address] | | | | + + + [...] EXTERNAL | | | | performed at [facility] [place];888 | mmol/L | LAB | | | | [address];[place], [place] | | | | | | [address] | | | | + + + [...] | | | Fingerstick | performed at [facility] [place];[address] | | LAB | | | | [address];[place], [place] | | | | | | [address] | | | | + + + [...] acute cardiopulmonary abnormality. | | Signed by: Sahcin Adam | | Sign Date/Time: 08/06/2018 11:43 [...] EXTERNAL | | | | performed at [facility], [address] | | LAB | | | | [address]ae[address], | | | | | | [place] [address] | | | | + + + [...] | | | | | [place] [address] | | | | + + [...] EXTERNAL | | | | performed at [facility], [address] | | LAB | | | | Janet [address]aeed, | | | | | | [place] [address] | | | | + + + [...] | EXTERNAL | | | A1c | [place] Diabetes | | LAB | | | [...] | | | | | performed at [facility], [address] | | | | | | [facility], | | | | | | [place] [address] | | | | + + + [...] | | | | | performed at [facility] [place];888 | | | | | | [facility] [facility];[place], [place] | | | | | | [address] | | | | + + + [...] | | | Fingerstick | performed at [facility];[address] | | LAB | | | | [address];[place], [place] | | | | | | [address] | | | | + + + [...] EXTERNAL | | | | performed at [facility];888 | mmol/L | LAB | | | | Talita Saeed;[place] | | | | | | [address] | | | | + + + [...] | | | Fingerstick | performed at [facility] [place];888 | | LAB | | | | Talita Sae[address];[place] | | | | | | [address] | | | | + + + [...] LAB | | | | performed at [facility] [place];[address] | | | | | | [address];[place], [place] | | | | | | [address] | | | | + + + [...] | | | Basophils | performed at [facility] [place];888 | K/uL | LAB | | | | [address];[place], [place] | | | | | | [address] | | | | + + + [...] | | | | | | MDRD IDIA traceable | | | | | | equation.Testing | | | | | | performed at [facility] | | | | | | [facility];[place], [place] | | | | | | [address] | | | | + + + [...] Diagnosis | + + | CAD in [place] artery Coronary atherosclerosis of [place] coronary artery | + + | Congestive heart failure, unspecified HF chronicity, unspecified heart failure type | | (HCC) | + + | Precordial pain | + + | Ischemic cardiomyopathy Other specified forms of chronic ischemic heart disease | + + documented in this encounter
--- OUTSIDE RECORDS SUMMARY | ~2019-06-26 | XMS | Encounter Summary ---
Demographics + + + | Address | [address] | | | [place] [address] | + + + | Home Phone [...] Team Providers + +------+ + | Care Flattening Press Operator Name | Role | Phone | + +------+ + | Bernadette Armendariz PA-C | PCP | | + +------+ + Encounter Details +--------+ + + + + | Date | Type | Department | Care Team | Description | +--------+ + + + + | 03/11/ | Orders Only | [facility] | James Pearce MD | Essential (primary) | | 2019 | | NEPHROLOGY [place] | [address] [place] | hypertension | | | | [address] [place] | [address] [place], [place] | (Primary Dx); CKD | | | | [address] [place], [place] | [address] | (chronic kidney | | | | [address] | | disease), stage IV | | | | [phone] | | (HCC); Nephrotic | | | [...] | | | | | | [address] [place], [place] | | | | | | [address] | | | | | | | [...]
--- OUTSIDE RECORDS SUMMARY | ~2019-06-26 | XMS | Encounter Summary ---
Demographics + + + | Address | [address] | | | [place] [address] | + + + | Home Phone [...] Team Providers + +------+ + | Care Identification And Records Commander Name | Role | Phone | + +------+ + | Bernadette Armendariz PA-C | PCP | | + +------+ + Encounter Details +--------+ + + + + | Date | Type | Department | Care Team | Description | +--------+ + + + + | 02/17/ | Abstract | [facility] | Сергей Gaitan | Congestive heart | | 2018 | | CARDIOLOGY [address] | MD Don [address] | failure, unspecified | | | | [place], | [address] [place] | HF chronicity, | | | | [place] [address] | [place] [address] | unspecified heart | | | | [phone] | [phone] | failure type (HCC) | | | [...] 2020 | Visit | | [address] [facility] | | | | | | [facility] | | | | | | [address] | | | | | | | [...]
--- OUTSIDE RECORDS SUMMARY | ~2019-06-26 | XMS | Encounter Summary ---
Demographics + + + | Address | [address] | | | [place] [address] | + + + | Home Phone [...] Providers + +------+ + | Care Supervisor Uranium Processing Name | Role | Phone | + +------+ + | Bernadette Armendariz PA-C | PCP | | + +------+ + Encounter Details +--------+ + + + + | Date | Type | Department | Care Team | Description | +--------+ + + + + | 03/17/ | Orders Only | [facility] | James Pearce MD | Essential (primary) | | 2019 | | NEPHROLOGY [place] | [address] [place] | hypertension; | | | | [address] [place] | [address] [place], [place] | Chronic kidney | | | | [address] [place], [place] | [address] | disease, stage IV | | | | [address] | | (severe) ([facility]); | | | | [phone] | | Proteinuria; | | | | [...] [place] | | | | | | [address] | | | | | | | [...]
--- OUTSIDE RECORDS SUMMARY | ~2019-06-26 | XMS | Encounter Summary ---
Demographics + + + | Address | [address] | | | [place] [address] | + + + | Home Phone | | + + + | Preferred Language | Unknown | + + + | Marital Status | | + + + | Gnosticism Affiliation | 1041 | + + + | Race | Unknown | + + + | Ethnic Group | Unknown | + + + Author + + + | Author | [facility] | | | and [place] | + + + | Organization | [facility] | | | [...] Providers + +------+ + | Care Building Associate Name | Role | Phone | + +------+ + | Bernadette Armendariz PA-C | PCP | | + +------+ + Encounter Details +--------+ + + + + | Date | Type | Department | Care Team | Description | +--------+ + + + + | 08/04/ | Orders Only | [facility] | Brynn Crawford MD | | | 2019 | | CARDIOLOGY [place] | [address] | | | | | [address] | [place] [address] | | | | | [place], [place] | [phone] | | | | | [address] | | | | | | [phone] | | | +--------+ + + + [...] 2020 | Visit | | [address] [facility] | | | | | | [address] [place] | | | | | | [address] | | | | | | | [...]
--- OUTSIDE RECORDS SUMMARY | ~2019-06-26 | XMS | Clinical Summary ---
Demographics + + + | Address | [address] | | | [place] [address] | + + + | Home Phone | | + + + | Preferred Language | Unknown | + + + | Marital Status | Unknown | + + + | Orthodoxy Affiliation | Unknown | + + + | Race | Unknown | + + + | Ethnic Group | Unknown | + + + Author + + + | Author | [employer] [facility] (Historical as of | | | 03-07-19) | + + + | Organization | [facility] (Historical as of | | | 03-07-19) [...] Team Providers + +------+ + | Care Slubber Hand Name | Role | Phone | + [...] | CKD (chronic kidney disease), stage IV ([facility]) | 11/17/2018 | + + + | Anemia of chronic renal failure, stage 4 (severe) ([facility]) | 11/17/2018 | + + + | [...] +------+-------+ + | MEDICAID | [place] | [id number] | | | [address] | | | N | | | | [place] | | | [place] | | | | [address] | | | FIELD SERVICE CONSULTANT | | | | | + +--------+ +------+-------+ + | /[facility] | YELLOW | [id number] | | | | | PLANS | [...] | Self | [birth year] Home: | [address] | | | al/Fam | | 1954 | [phone] | [place] | | | jeni | | | [birth year] | [address] | + +--------+ +--------+ + +
--- OUTSIDE RECORDS SUMMARY | ~2019-06-26 | XMS | Encounter Summary ---
Demographics + + + | Address | [address] | | | [place] [address] | + + + | Home Phone [...] Team Providers + +------+ + | Care Paste Worker Name | Role | Phone | + +------+ + PCP | Unavailable | + +------+ + Encounter Details +--------+ + + + + | Date | Type | Department | Care Team | Description | +--------+ + + + + | 02/09/ | Hospital | [facility] | Ilan Pitts, | | | 1991 - | Encounter | MED CTR MED ONC | MD [address] | | | | | [address] [place] | [place], [place] | | | 02/12/ | | [place] [address] | [address] | | | 1989 | | [phone] | | | +--------+ + + + [...] | [address] [facility] [place] | | | | | | [address] [place] | | | | | | [address] | | | | | | | | +--------+---------+ + + + documented as of this encounter Visit Diagnoses Not on filedocumented in this encounter"
--- OUTSIDE RECORDS SUMMARY | ~2019-06-26 | XMS | Encounter Summary ---
Demographics + + + | Address | [address] | | | [place] [address] | + + + | Home Phone [...] Team Providers + +------+ + | Care Equalizer Operator Name | Role | Phone | [...] + + | 06/22/ | Documentati | [facility] | Luis, | Results (06/17/19) | | 2019 | on | NEPHROLOGY [place] | [facility] | | | | | [address] | [address] | | | | | [address] [facility] [address] | | | | | | [place], [place] | | | | | | [address] | | | | | | [phone] | | | +--------+ + + + [...] 2019 | Visit | | [address] [facility] | | | | | | [address] [place], [place] | | | | | | [address] | | | | | | | [...]
--- OUTSIDE RECORDS SUMMARY | ~2019-06-26 | XMS | Encounter Summary ---
Demographics + + + | Address | [address] | | | [place] [address] | + + + | Home Phone [...] Team Providers + +------+ + | Care Optical Design Engineer Name | Role | Phone | + +------+ + | Nathalie Castorena | PCP | | + +------+ + Encounter Details +--------+ + + + + | Date | Type | Department | Care Team | Description | +--------+ + + + + | 03/10/ | Orders Only | [facility] | James Pearce MD | | | 2018 | | NEPHROLOGY [place] | [address] [place] | | | | | [address] | [address] [facility] [place] | | | | | [facility] [place] [address] | [address] | | | | | [place], [place] | | | | | | [address] | | | | | | [phone] | | | +--------+ + + + [...] 2020 | Visit | | [address] [facility] | | | | | | 160 [place], [place] | | | | | | [address] | | | | | | | | +--------+---------+ + + + documented as of this encounter Visit Diagnoses Not on filedocumented in this encounter"
--- OUTSIDE RECORDS SUMMARY | ~2019-06-26 | XMS | Encounter Summary ---
Demographics + + + | Address | [address] | | | [place] [address] | + + + | Home Phone | | + + + | Preferred Language | Unknown | + + + | Marital Status | | + + + | Voodoo Affiliation | 1041 | + + + [...] Team Providers + +------+ + | Care Trim Master Operator Name | Role | Phone | + +------+ + | Nathalie Castorena | PCP | | + +------+ + Encounter Details +--------+ + + + + | Date | Type | Department | Care Team | Description | +--------+ + + + + | 03/10/ | Orders Only | [facility] | James Pearce MD | | | 2018 | | NEPHROLOGY [place] | [address] [place] | | | | | [address] [place] | [address] [place], [place] | | | | | [address] [place], [place] | [address] | | | | | [address] | | | | | | [phone] | | | +--------+ + + + [...] Visit | | [address] [facility] | | | | | | 160 [place] | | | | | | [address] | | | | | | | | +--------+---------+ + + + documented as of this encounter Visit Diagnoses Not on filedocumented in this encounter"
--- OUTSIDE RECORDS SUMMARY | ~2019-06-26 | XMS | Encounter Summary ---
Demographics + + + | Address | [address] | | | [place] [address] | + + + | Home Phone | | + + + | Preferred Language | Unknown | + + + | Marital Status | | + + + | Yarsani Affiliation | 1041 | + + + [...] Team Providers + +------+ + | Care Car Wash Attendant Automatic Name | Role | Phone | + +------+ + | Nathalie Castorena | PCP | | + +------+ + Encounter Details +--------+ + + + + | Date | Type | Department | Care Team | Description | +--------+ + + + + | 03/10/ | Orders Only | [facility] | James Pearce MD | | | 2018 | | NEPHROLOGY [place] | [address] [place] | | | | | [address] [place] | [address] [place], [place] | | | | | [address] [place], [place] | [address] | | | | | [address] | | | | | | [phone] | | | +--------+ + + + [...] 2020 | Visit | | [address] [facility] | | | | | | [address] [place] | | | | | | [address] | | | | | | | | +--------+---------+ + + + documented as of this encounter Visit Diagnoses Not on filedocumented in this encounter"
--- OUTSIDE RECORDS SUMMARY | ~2019-06-26 | XMS | Encounter Summary ---
Demographics + + + | Address | [address] | | | [place] [address] | + + + | Home Phone [...] Team Providers + +------+ + | Care Gas Check Pad Maker Name | Role | Phone | + +------+ + | Nathalie Castorena | PCP | | + +------+ + Encounter Details +--------+---------+ + + + | Date | Type | Department | Care Team | Description | +--------+---------+ + + + | 06/22/ | Office | [facility] | James Pearce MD | CKD (chronic kidney | | 2019 | Visit | NEPHROLOGY [place] | [address] [facility] | disease), stage IV | | | | [address] | [facility] [place] | ([facility]) (Primary Dx); | | | | [address] [place] [address] | [address] | Anemia of chronic | | | | [place], [place] | | renal failure, stage | | | | [address] | | 4 (severe) ([facility]); | | | | [phone] | | Essential (primary) | | | | | | hypertension; 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 Martin is [...] ED. 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 I sent her for a repeat BMP [...] yours, James Pearce MD FACP [facility] ERLINDA documented in this enco unter Plan of Treatment +--------+---------+ + + + | Date | Type | Specialty | Care Team | Description | +--------+---------+ + + + | 09/27/ | Office | Nephrology | James Pearce MD | | | 2019 | Visit | | [address] [facility] | | | | | | 160 [place], [place] | | | | | | [address] | | | | | | | [...]
--- OUTSIDE RECORDS SUMMARY | ~2019-06-26 | XMS | Clinical Summary ---
Demographics + + + | Address | [address] | | | [place] [address] | + + + | Home Phone [...] Providers + +------+ + | Care Supervisor Cutting And Boning Name | Role | Phone | + [...] + + | Overview: Echocardiogram done at [facility] on 01/28/18 | | shows overall left [...] Nephrology | James Pearce MD | Other ([facility] | | 2019 | | | | | +--------+ + + + + | 06/22/ | Office | Nephrology | James Pearce MD | CKD (chronic kidney | | 2019 | Visit | | | disease), stage IV | | | | | | ([facility]) (Primary Dx); | | | | | | Anemia of chronic | | | | | | renal failure, stage | | | | | | 4 (severe) ([facility]); | | | | | | Essential [...] insulin | | | | | | ([facility]); Secondary | | | | | | hyperparathyroidism | | | | | | ([facility]); Nephrotic | | | | | | [...] Suarez | | | | | | Inspector Rough Castings | | +--------+ + + + + [...] | | | | | | [address] [place] | | | | | | [address] | | | | | | | [...] | | + +--------+ +--------+ +---------+--------+ | [employer] | IHS | [id number] | | | | Indemn | | SERVICE | YELLOW | | 018-Pr | | | ity | | | HAWK | | esent | | | | + +--------+ +--------+ +---------+--------+ | [employer] | [employer] | [id number] | 01/28/20 | [phone] | | Medica | | MEDICAID HMO | HEALTH | | 18-Pre | 1 | | id | | | MDCD | | sent | | | | | | [place] | | | | | | + +--------+ +--------+ +---------+--------+ | [employer] | IHS | [id number] | | | | Indemn | | SERVICE | YELLOW | | 018-Pr | | | ity | | | HAWK | | esent | | | | + +--------+ +--------+ +---------+--------+ | [employer] | [employer] | [id number] | 02/23/20 | [phone] | | Medica | | MEDICAID HMO [...] Person | Self | [birth year] | [address] | | | al/Fam | | 1954 | [phone] | [place] | | | jeni | | | 4 (Home) | [address] | + +--------+ +--------+ + + | Maria Ines Martin | Person | Self | [birth year] | [address] | | | al/Kyle | | 1955 | [phone] | [address] [place] | | | jeni | | | 2 (Home) | [address] | + +--------+ +--------+ + + Advance Directives + + + + + | Type | Date Recorded | Patient | Explanation | | | | Showroom Sales Assistant | | + + + + + | Power of | | | | | Crutching Contractor | | | | + + + + + | Advance | | | | | Directive | | | | + + + + +
--- OUTSIDE RECORDS SUMMARY | ~2019-06-26 | XMS | Encounter Summary ---
Demographics + + + | Address | [address] | | | [place] [address] | + + + | Home Phone [...] Team Providers + +------+ + | Care Naval Architect Specialist Name | Role | Phone | + +------+ + | Bernadette Armendariz PA-C | PCP | | + +------+ + Encounter Details +--------+ + + + + | Date | Type | Department | Care Team | Description | +--------+ + + + + | 03/18/ | Orders Only | [facility] | James Pearce MD | Essential (primary) | | 2019 | | NEPHROLOGY [place] | [address] [place] | hypertension | | | | [address] [place] | [address] [place], [place] | (Primary Dx); | | | | [address] [place], [place] | [address] | Secondary | | | | [address] | | hyperparathyroidism | | | | [phone] | | (HCC); CKD (chronic | | | | | | kidney disease), | | | | | | stage IV ([facility]); | | | | | | Anemia of chronic | | | | | | renal failure, stage | | | | | | 4 (severe) ([facility]); | | | | | [...] 2019 | Visit | | [address] [facility] [place] | | | | | | 160 [place], [place] | | | | | | [address] | | | | | | | [...] | | | 4 (severe) ([facility]) | | + +------+--------+ + [...]
--- OUTSIDE RECORDS SUMMARY | ~2019-06-26 | XMS | Encounter Summary ---
Demographics + + + | Address | [address] | | | [place] [address] | + + + | Home Phone [...] Team Providers + +------+ + | Care Seafood Farmer Name | Role | Phone | + +------+ + | Bernadette Armendariz PA-C | PCP | | + +------+ + Encounter Details +--------+ + + + + | Date | Type | Department | Care Team | Description | +--------+ + + + + | 03/18/ | Orders Only | [facility] | James Pearce MD | Essential (primary) | | 2019 | | NEPHROLOGY [place] | [address] [place] | hypertension | | | | [address] [place] | [address] [place], [place] | (Primary Dx); | | | | [address] [place], [place] | [address] | Secondary | | | | [address] | | hyperparathyroidism | | | | [phone] | | (HCC); CKD (chronic | | | | | | kidney disease), | | | | | | stage IV ([facility]); | | | | | | Anemia of chronic | | | | | | renal failure, stage | | | | | | 4 (severe) ([facility]); | | | | | [...] 2019 | Visit | | [address] [facility] | | | | | | 160 [place], [place] | | | | | | [address] | | | | | | | [...] | | | | | 4 (severe) ([facility]) | | + +------+--------+ + + [...]
--- OUTSIDE RECORDS SUMMARY | ~2019-06-26 | XMS | Encounter Summary ---
Demographics + + + | Address | [address] | | | [place] [address] | + + + | Home Phone [...] Team Providers + +------+ + | Care Record Center Coordinator Name | Role | Phone | + +------+ + | Nathalie Castorena | PCP | | + +------+ + Encounter Details +--------+---------+ + + + | Date | Type | Department | Care Team | Description | +--------+---------+ + + + | 06/22/ | Office | [facility] | James Pearce MD | CKD (chronic kidney | | 2019 | Visit | [place]PHROLOGY [place] | [address] [facility] | disease), stage IV | | | | [address] | [facility] [place] | ([facility]) (Primary Dx); | | | | [address] | [address] | Anemia of chronic | | | | [place], [place] | | renal failure, stage | | | | [address] | | 4 (severe) ([facility]); | | | | [phone] | | Essential (primary) | | | [...] | | | ([facility]); Secondary | | | | | | hyperparathyroidism | | | | | | ([facility]); Nephrotic | | | | | [...] LABIRON 82.2 (A) 11/12/2018 LABPROT 4.982 08/07/2018 [id number] 8.5 (A) 11/12/2018 Assessment: Ms. Martin is [...] ED. I see no need for acute PROFESSIONAL ATHLETE. I sent her for a repeat BMP [...] concerns. Truly yours, James Pearce MD FACP [facility] ERLINDA documented in this enco unter Plan of Treatment +--------+---------+ + + + | Date | Type | Specialty | Care Team | Description | +--------+---------+ + + + | 09/27/ | Office | Nephrology | James Pearce MD | | | 2019 | Visit | | [address] [facility] | | | | | | 160 [place], [place] | | | | | | [address] | | | | | | | [...]
--- OUTSIDE RECORDS SUMMARY | ~2019-06-26 | XMS | Encounter Summary ---
Demographics + + + | Address | [address] | | | [place] [address] | + + + | Home Phone [...] Team Providers + +------+ + | Care Hoop Maker Machine Name | Role | Phone | + +------+ + | Bernadette Armendariz PA-C | PCP | | + +------+ + Encounter Details +--------+ + + + + | Date | Type | Department | Care Team | Description | +--------+ + + + + | 11/12/ | Orders Only | [facility] | James Pearce MD | | | 2019 | | NEPHROLOGY [place] | [address] [place] | | | | | [address] [place] | 160 [place], [place] | | | | | [facility] [place] | [address] | | | | | [address] | | | | | | [phone] | | | +--------+ + + + [...] 2020 | Visit | | [address] [facility] | | | | | | 160 [place], [place] | | | | | | [address] | | | | | | | [...] | | | LAB | | | [place] | | | | | + +---------+ [...]
--- OUTSIDE RECORDS SUMMARY | ~2019-06-26 | XMS | Encounter Summary ---
Demographics + + + | Address | [address] | | | [place] [address] | + + + | Home Phone [...] Team Providers + +------+ + | Care Stone And Plate Preparer Apprentice Name | Role | Phone | + +------+ + | Bernadette Armendariz PA-C | PCP | | + +------+ + Encounter Details +--------+ + + + + | Date | Type | Department | Care Team | Description | +--------+ + + + + | 03/11/ | Orders Only | [facility] | James Pearce MD | Essential (primary) | | 2019 | | NEPHROLOGY [place] | [address] [place] | hypertension | | | | [address] [place] | [address] [place], [place] | (Primary Dx); CKD | | | | [address] [place], [place] | [address] | (chronic kidney | | | | [address] | | disease), stage IV | | | | [phone] | | (HCC); Nephrotic | | | [...] 2019 | Visit | | [address] [facility] | | | | | | 160 [place], [place] | | | | | | [address] | | | | | | | [...]
--- OUTSIDE RECORDS SUMMARY | ~2019-06-26 | XMS | Encounter Summary ---
Demographics + + + | Address | [address] | | | [place] [address] | + + + | Home Phone | | + + + | Preferred Language | Unknown | + + + | Marital Status | | + + + | Faith Affiliation | 1041 | + + + | Race | Unknown | + + + | Ethnic Group | Unknown | + + + Author + + + | Author | [facility] | | | and [place] | + + + | Organization | [facility] | | | and [...] Providers + +------+ + | Care Director Of Epidemiology Name | Role | Phone | + +------+ + | Nathalie Castorena | PCP | | + +------+ + Encounter Details +--------+ + + + + | Date | Type | Department | Care Team | Description | +--------+ + + + + | 03/10/ | Orders Only | [facility] | James Pearce MD | | | 2018 | | NEPHROLOGY [place] | [address] [place] | | | | | [address] | [address] [facility] [place] | | | | | [facility] [address] | [address] | | | | | [place], [place] | | | | | | [address] | | | | | | [phone] | | | +--------+ + + + [...] 2020 | Visit | | [address] [facility] | | | | | | 160 [place], [place] | | | | | | [address] | | | | | | | | +--------+---------+ + + + documented as of this encounter Visit Diagnoses Not on filedocumented in this encounter"
--- OUTSIDE RECORDS SUMMARY | ~2019-06-26 | XMS | Encounter Summary ---
Demographics + + + | Address | [address] | | | [place] [address] | + + + | Home Phone [...] Team Providers + +------+ + | Care Roller Presser Operator Name | Role | Phone | + +------+ + | Bernadette Armendariz PA-C | PCP | | + +------+ + Encounter Details +--------+ + + + + | Date | Type | Department | Care Team | Description | +--------+ + + + + | 12/02/ | Emergency | [facility] | [facility], | | | 2019 - | | MEDICAL CENTER | MD [address] | | | | | EMERGENCY CENTER | Talita Saeed | | | 12/03/ | | [address] | [place] [address] | | | 2018 | | [place], [place] | [phone] | | | | | [address] | | | | | | [phone] | | | +--------+ + + + [...] [place] | | | | | | [address] | | | | | | | | +--------+---------+ + + + documented as of this encounter Visit Diagnoses Not on filedocumented in this encounter"
--- OUTSIDE RECORDS SUMMARY | ~2019-06-26 | XMS | Encounter Summary ---
Demographics + + + | Address | [address] | | | [place] [address] | + + + | Home Phone [...] | | + + +---------+ + | Sahcin Dwyer | ECON | Unknown | | + + +---------+ + | Bryan Martin | ECON | Unknown | | + + +---------+ + Care Team Providers + +------+ + | Care Automobile Locator Name | Role | Phone | + [...] + + | 03/16/ | Documentati | [facility] | Luis, | Results (03/13/19) | | 2019 | on | NEPHROLOGY [place] | Daniela [facility] | | | | | [address] | Supervising Producer | | | | | [place] [facility] [address] | | | | | | [place], [place] | | | | | | [address] | | | | | | [phone] | | | +--------+ + + + [...] | | | | | | 160 [place], [place] | | | | | | [address] | | | | | | | [...] 1.005 - 1.030 | | | | [place] | | | | | + + [...]
--- OUTSIDE RECORDS SUMMARY | ~2019-06-26 | XMS | Encounter Summary ---
Demographics + + + | Address | [address] | | | [place] [address] | + + + | Home Phone [...] Team Providers + +------+ + | Care Worm Farm Laborer Name | Role | Phone | + +------+ + | Bernadette Armendariz PA-C | PCP | | + +------+ + Encounter Details +--------+ + + + + | Date | Type | Department | Care Team | Description | +--------+ + + + + | 12/02/ | Emergency | [facility] | [facility], | | | 2019 - | | MEDICAL CENTER | [address] | | | | | EMERGENCY CENTER | Talita Saeed | | | 12/03/ | | [address] | [place] [address] | | | 2018 | | [place], [place] | [phone] | | | | | [address] | | | | | | [phone] | | | +--------+ + + + [...] 2019 | Visit | | [address] [facility] | | | | | | [address] [place] | | | | | | [address] | | | | | | | | +--------+---------+ + + + documented as of this encounter Visit Diagnoses Not on filedocumented in this encounter"
--- OUTSIDE RECORDS SUMMARY | ~2019-06-26 | XMS | Encounter Summary ---
Demographics + + + | Address | [address] | | | [place] [address] | + + + | Home Phone | | + + + | Preferred Language | Unknown | + + + | Marital Status | | + + + | Religion Affiliation | 1041 | + + + | Race | Unknown | + + + | Ethnic Group | Unknown | + + + Author + + + | Author | [facility] | | | and [place] | + + + | Organization | [facility] | | [...] Team Providers + +------+ + | Care Data Systems Manager Name | Role | Phone | + +------+ + | Nathalie Castorena | PCP | | + +------+ + Encounter Details +--------+ + + + + | Date | Type | Department | Care Team | Description | +--------+ + + + + | 06/22/ | Orders Only | [facility] | James Pearce MD | Essential (primary) | | 2019 | | NEPHROLOGY [place] | [address] [place] | hypertension | | | | [address] | [address] [place], [place] | (Primary Dx); Anemia | | | | [address] | [address] | of chronic renal | | | | [place], [place] | | failure, stage 4 | | | | [address] | | (severe) ([facility]); CKD | | | | [phone] | | (chronic kidney | | | [...] 2019 | Visit | | [address] [facility] | | | | | | 160 [place], [place] | | | | | | [address] | | | | | | | [...]
--- OUTSIDE RECORDS SUMMARY | ~2019-06-26 | XMS | Encounter Summary ---
Demographics + + + | Address | [address] | | | [place] [address] | + + + | Home Phone [...] Providers + +------+ + | Care Supervisor Rubber Covering Name | Role | Phone | + +------+ + | Bernadette Armendariz PA-C | PCP | | + +------+ + Encounter Details +--------+ + + + + | Date | Type | Department | Care Team | Description | +--------+ + + + + | 12/02/ | Hospital | [facility] | [facility], | Right sided weakness | | 2019 - | Encounter | [facility] | MD Edie Michaels | | | | | CLINICAL DECISION | [address] | | | 12/04/ | | [address] | [place] [address] | | | 2018 | | [place], [place] | [phone] | | | | | [address] | | | | | | [phone] | | | +--------+ + + + [...] 12/04/18808 Date of Service: 12/04/18804 Status: Signed Pathology Tech: Toney Lowry MD (Physician) [facility] Service: Hospitalist Physician Discharge Summary Patient ID: Maria Ines Martin [id number] y.o. 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 All questions were answered. 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 MRA Brain: 3D akzp-gu-pvjdiu MRA with MIP ref ormations. MRA neck: 2D hceo-xe-etfsld MRA with MIP reformations. FINDINGS: MRI Brain: [...] diffusion-weighted imaging was obtained. MRA Brain: 3D mecn-kt-gmgixb MRA with MIP ref ormations. MRA neck: 2D mukh-ii-nkyxwv MRA with MIP reformations. FINDINGS: MRI Brain: [...] 88.35 ml D-E Excursion: 1.83 cm E-F [facility]: 0.07 m/s TAPSE: 2.80 cm HR: 74.10 [...] TV A Brock: 0.77 m/s TV Dec [facility]: 2.83 m/s2 TV Dec Time: 277.60 ms TV E Brock: 0.78 m/s TV E/A Ratio: 1.01 Primary Care Provider: Authenticated by: JASON BUCIO MD Report Date/Time: [...] 12/04/181301 Date of Service: 12/04/181301 Status: Signed Pathology Tech: Stephanie Calzada RN (Registered Nurse) Discharge instructions [...] 12/04/18539 Date of Service: 12/04/18539 Status: Signed Pathology Tech: Nichelle Renee RN (Registered Nurse) Chart check complete onver federico Transaction, Provider Unknown - 12/04/2018 1:09 AM PDT Nurse Progress Note by Nichelle Renee RN at 12/04/18108 Author: Nichelle Renee RN Service: (none) Author Type: Registered Nurse Filed: 12/04/18109 Date of Service: 12/04/18108 Status: Signed Pathology Tech: Nichelle Renee RN (Registered Nurse) Pt here [...] 1840 Date of Service: 12/03/188 Status: Signed Pathology Tech: Francy Orantes RN (Registered Nurse) Chart check complete. Francy Orantes 12/03/18 6:39 PM onver federico Transaction, Provider Unknown - 12/03/2018 2:30 PM PDT Nurse Progress Note by Francy Orantes RN at 12/03/18 1430 Author: Francy Orantes RN Service: (none) Author Type: Registered Nurse Filed: 12/03/18 1431 Date of Service: 12/03/18 1430 Status: Signed Pathology Tech: Francy Orantes RN (Registered Nurse) 135/65, holding additional norvac 5mg at this time. onver federico Transaction, Provider Unknown - 12/03/2018 1:17 PM PDT Case Management by Lisa Burns RN at 12/03/18 1317 Author: Lisa Burns RN Service: (none) Author Type: Registered Nurse Filed: 12/03/18 1328 Date of Service: 12/03/18 1317 Status: Addendum Pathology Tech: Lisa Burns RN (Registered Nurse) Related Notes: [...] Martin Relationship to Patient spouse Phone number [phone] Mental Status Oriented Prior functional status independent Power of Can Intake Worker No Anticipated Discharge Plan Post Acute Care Needs None at this time Plan communicated to patient/family Yes Resources Financial concerns No Transportation issues No Patient/Family concerns No Prescription Plan Yes Name of Pharmacy [place] or [facility] Previous home health equipment Yes ( walker) Vascular access device No Ostomy/Drains/Appliances No Anticipated Disposition Facility Type Home Met with patient and discussed discharge planning, Pt is a 63 y.o., female with vertigo and rt side weakness. Pt lives on the [facility] w/spouse and several other famil y members in a small house. Pt states, that she lost her main house of 28 yrs and was "disp laced" on the [facility]. She and her have been living with her sister and several other people. She claims she sleeps on the the floor and there is not much mobility to mov e around-she can not accommodate a walker in the current house. Pt claims, the [facility] is working on a new place but she did not want to talk about any of the plans for housing or why she was displaced from the original home. Patient's PCP is: [facility] Patient's insurance: Medicaid//[facility] [place] Coverage concerns: none Medication coverage/concerns: none [...] Note by Francy Orantes RN at 12/03/18 4730 Author: Francy Orantes RN Service: (none) Author Type: Registered Nurse Filed: 12/03/18 8081 Date of Service: 12/03/181142 Status: Signed Pathology Tech: Francy Orantes RN (Registered Nurse) Telephone order [...] 12/03/18844 Date of Service: 12/03/18844 Status: Signed Pathology Tech: Francy Orantes RN (Registered Nurse) New order per Dr. Lowry to administer scheduled BP meds at this time. Toney Cornejo MD - 12/03/2018 8:31 AM PDTFormatting of this note might be different from the origi nal. Progress Notes by Toney Lowry MD at 12/03/18830 Author: Toney Lowry MD Service: (none) Author Type: Physician Filed: 12/03/18843 Date of Service: 12/03/18830 Status: Signed Pathology Tech: Toney Lowry MD (Physician) 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 which may contain error for similar [...] with long-term current use of insulin ([facility]) Non-ischemic cardiomyopathy (HCC) CKD (chronic kidney disease), stage IV (HCC) Anemia of chronic renal failure, stage 4 (severe) ([facility]) Secondary hyperparathyroidism (HCC) Visual changes [place] [facility] Past Medical History Diagnosis Date Acute renal failure ([facility]) 08/05/2018 MIC (acute kidney injury) ([facility]) 08/08/2018 Asthma CAD (coronary artery disease) CHF (congestive heart failure) ([facility]) CVA (cerebral vascular accident) ([facility]) HTN (hypertension) Hyperlipidemia Myocardial infarct (HCC) Type 2 diabetes mellitus ([facility]) HOME MEDICATIONS Prior to Admission medications Medication [...] by Francy Orantes RN at 12/03/1840 Author: rFancy Orantes RN Service: (none) Author Type: Registered Nurse Filed: 12/03/18 0743 Date of Service: 12/03/18739 Status: Signed Pathology Tech: Francy Orantes RN (Registered Nurse) Per Dr. [...] 0745 Date of Service: 12/03/18599 Status: Signed Pathology Tech: Jael Ford RN (Registered Nurse) Chart check audit complete. onver federico Transaction, Provider Unknown - 12/03/2018 1:23 AM PDT Pharmacy Note by Tia Hodge RPH at 12/03/18122 Author: Tia Hodge RPH Service: Pharmacy Author Type: Pharmacist Filed: 12/03/18122 Date of Service: 12/03/18122 Status: Signed Pathology Tech: Tia Hodge RPH (Pharmacist) Clinical Pharmacy Note: Renal Monitoring Height: 160 cm Weight: 88.5 kg Serum Creatinine: 2.07 mg/dL (12/02/18 at [facility]) Estimated creatinine clearance - Cockcroft-Gault CrCl: 30 [...] [place] | | | | | | [address] | | | | | | | [...] | | | Fingerstick | performed at [facility];[address] | | LAB | | | | [place] [address]ae[address];[place] | | | | | | [address] | | | | + + + [...] | | | Fingerstick | performed at [facility];[address] | | LAB | | | | [place] [address] | | | | | | [address] | | | | + + + [...] | | | Fingerstick | performed at [facility];[address] | | LAB | | | | [place] [address];[place] | | | | | | [address] | | | | + + + [...] | | | Fingerstick | performed at [facility];[address] | | LAB | | | | [address];[place], [place] | | | | | | [address] | | | | + + + [...] | | | Fingerstick | performed at [facility];[address] | | LAB | | | | [address];[place] | | | | | | [address] | | | | + + + [...] | | D-E Excursion: 1.83 cm E-F [facility]: 0.07 m/s TAPSE: 2.80 cm | | [...] | | | 0.77 m/s TV Dec [facility]: 2.83 m/s2 TV Dec Time: 277.60 ms TV | | | E Brock: 0.78 m/s TV E/A Ratio: 1.01 Primary Care Provider: | | | Authenticated by: JASON BUCIO [...] (A-L): 36.58 ml/m2LAAs A2C: 22.52 | | [id number] A-L A2C: 77.43 mlLALs A2C: 5.56 cmLAAs A4C: 20.32 tz1XEHDL A-L A4C: | | 62.81 mlLALs A4C: 5.70 cmRAAd: 13.50 nx0DXVXX A-L: 27.25 mlRAEDV MOD: 27.63 | | mlRALd: 5.67 cmAo Diam: 3.55 cmAV Cusp: 2.03 cmLA Diam: 4.21 cmLA/Ao: 1.18%FS: | | 40.81 %EDV(Teich): 123.91 mlEF(Teich): 71.30 %ESV(Teich): 35.55 mlIVSd: 1.73 | | cmIVSs: 2.32 cmLVIDd: 5.10 cmLVIDs: 3.01 cmLVPWd: 1.42 cmLVPWs: 1.66 | | cmSV(Teich): 88.35 mlD-E Excursion: 1.[address] cm[address] [facility]: 0.07 m/sTAPSE: 2.80 cmHR: | | 74.10 BPMAV maxP.59 mmHgAV meanP.44 mmHgAV Vmax: 1.46 m/John Vmean: | | 1.01 m/John VTI: 32.01 cmAVA Vmax: 2.68 cm2AVA (VTI): 2.67 zo2OOMH Vmax: 0.00 | | cm2/m2AVAI (VTI): 0.00 cm2/m2LVCI Dopp: 3.23 l/edtz6JCDA Dopp: 6.18 l/minHR: | | 72.25 BPMLVOT [...] | m/sTV A Brock: 0.77 m/sTV Dec [facility]: 2.83 m/s2TV Dec Time: 277.60 msTV E Brock: 0.78 | | m/sTV E/A Ratio: 1.01 Primary Care Provider: ASAuthenticated by: [facility] | | Date/Time: 12-03-2018 14:17:6 IMPRESSION: [...] | |D-E Excursion: 1.83 cm | |E-F [facility]: 0.07 m/s | |TAPSE: 2.80 cm | [...] A Brock: 0.77 m/s | |TV Dec [facility]: 2.83 m/s2 | |TV Dec Time: 277.60 ms | |TV E Brock: 0.78 m/s | |TV E/A Ratio: 1.01 | | | |Primary Care Provider: | |Authenticated by: JASON BUCIO MD | [...] | | | Basophils | performed at [facility];[address] | K/uL | LAB | | | | [place] | | | | | | [address] | | | | + + + [...] EXTERNAL | | | | performed at [facility] | | LAB | | | | [place]aeed;[place] | | | | | | [address] | | | | + + + [...] | | | | | performed at [facility], [address] | | | | | | [place] [address], | | | | | | [place] [address] | | | | + + + [...] | | | Direct | performed at [facility];[address] | | LAB | | | | [address];[place], [place] | | | | | | [address] | | | | + + + [...] | | | Cholesterol | performed at [facility], [address] | | LAB | | | , | [address], | | | | | Calculated, | [place] [address] | | | | | External | [...] | | | | | performed at [facility];[address] | | | | | | [facility];[place], [place] | | | | | | [address] | | | | + + + [...] | | | Fingerstick | performed at [facility];[address] | | LAB | | | | [address];[place], [place] | | | | | | [address] | | | | + + + [...] | | | Fingerstick | performed at [facility];[address] | | LAB | | | | [address];[place], [place] | | | | | | [address] | | | | + + + [...] obtained. | | | MRA Brain: 3D zqpl-ve-xeymjd MRA with MIP reformations. MRA neck: 2D | | | pqct-lq-vduenv MRA with MIP reformations. FINDINGS: MRI Brain: [...] imaging | | was obtained.MRA Brain: 3D jylt-dx-vaekfr MRA with MIP reformations.MRA neck: 2D | | qapm-xp-tfozkp MRA with MIP reformations.FINDINGS:MRI Brain:Brain: No restricted [...] obtained. | | | MRA Brain: 3D foga-ap-hnsfku MRA with MIP reformations. MRA neck: 2D | | | spso-cs-xrtytm MRA with MIP reformations. FINDINGS: MRI Brain: [...] imaging | | was obtained.MRA Brain: 3D zbhy-nq-gtdkxr MRA with MIP reformations.MRA neck: 2D | | urpc-zo-hihcnk MRA with MIP reformations.FINDINGS:MRI Brain:Brain: No restricted [...] LAB | | | | performed at [facility], [address] | | | | | | [place] [address], | | | | | | [place] [address] | | | | + + + [...] - 1.030 | EXTERNAL | | | [place] | | | LAB | | + [...] | | | Urine | performed at [facility], [address] | | LAB | | | | [address], | | | | | | [place] [address] | | | | + + + [...]
--- OUTSIDE RECORDS SUMMARY | ~2019-06-26 | XMS | Encounter Summary ---
Demographics + + + | Address | [address] | | | [place] [address] | + + + | Home Phone [...] Team Providers + +------+ + | Care Reshipping Clerk Name | Role | Phone | [...] | | | | | | [place] [address] | | | | | | [phone] | | | +--------+ + + + [...] 2020 | Visit | | [address] [facility] | | | | | | [address] [place], [place] | | | | | | [address] | | | | | | | | +--------+---------+ + + + documented as of this encounter Visit Diagnoses Not on filedocumented in this encounter"
--- OUTSIDE RECORDS SUMMARY | ~2019-06-26 | XMS | Encounter Summary ---
Demographics + + + | Address | [address] | | | [place] [address] | + + + | Home Phone [...] Team Providers + +------+ + | Care Social Services Coordinator Name | Role | Phone | [...] + + | 06/22/ | Documentati | [facility] | Luis, | Results (06/17/19) | | 2019 | on | NEPHROLOGY [place] | [facility] | [address] | Massotherapist | | | | | WAY [facility] [address] | | | | | | [place], [place] | | | | | | [address] | | | | | | [phone] | | | +--------+ + + + [...] 2019 | Visit | | [address] [facility] | | | | | | [address] [place], [place] | | | | | | [address] | | | | | | | [...]
--- OUTSIDE RECORDS SUMMARY | ~2019-06-26 | XMS | Encounter Summary ---
Demographics + + + | Address | [address] | | | [place] [address] | + + + | Home Phone [...] Providers + +------+ + | Care Supervisor Bottle House Cleaners Name | Role | Phone | + [...] + + | 06/24/ | Telephone | [facility] | James Pearce MD | Other (Priti) | | 2019 | | NEPHROLOGY [place] | [address] [facility] | | | | | [address] | [address] [place], [place] | | | | | [facility] [address] | [address] | | | | | [place], [place] | | | | | | [address] | | | | | | [phone] | | | +--------+ + + + [...] 2020 | Visit | | [address] [facility] | | | | | | [address] [place] | | | | | | [address] | | | | | | | | +--------+---------+ + + + documented as of this encounter Visit Diagnoses Not on filedocumented in this encounter"
--- OUTSIDE RECORDS SUMMARY | ~2019-06-26 | XMS | Clinical Summary ---
Demographics + + + | Address | [address] | | | [place] [address] | + + + | Home Phone | | + + + | Preferred Language | Unknown | + + + | Marital Status | Unknown | + + + | Methodist Affiliation | Unknown | + + + | Race | Unknown | + + + | Ethnic Group | Unknown | + + + Author + + + | Author | [facility] [facility] (Historical as of | | | 03-07-19) | + + + | Organization | [facility] (Historical as of | | | 03-07-19) [...] Team Providers + +------+ + | Care Verifying Machine Operator Name | Role | Phone [...] | CKD (chronic kidney disease), stage IV ([facility]) | 11/17/2018 | + + + | Anemia of chronic renal failure, stage 4 (severe) ([facility]) | 11/17/2018 | + + + | [...] +------+-------+ + | MEDICAID | [place] | [id number] | | | [address] | | | [address] | | | | [place] | | | [place] | | | | [address] | | | [employer] | | | | | + +--------+ +------+-------+ + | /[employer] | YELLOW | [id number] | | | | | PLANS | [...] | Self | [birth year] Home: | [address] | | | al/Fam | | 1954 | [id number] | [place] | | | jeni | | | [birth year] | [address] | + +--------+ +--------+ + +
--- OUTSIDE RECORDS SUMMARY | ~2019-06-26 | XMS | Encounter Summary ---
Demographics + + + | Address | [address] | | | [place] [address] | + + + | Home Phone | | + + + | Preferred Language | Unknown | + + + | Marital Status | | + + + | Mandaen Affiliation | 1041 | + + + | Race | Unknown | + + + | Ethnic Group | Unknown | + + + Author + + + | Author | [facility] | | | and [place] | + + + | Organization | [facility] | | [...] Team Providers + +------+ + | Care Lot Porter Name | Role | Phone | + +------+ + | Bernadette Armendariz PA-C | PCP | | + +------+ + Encounter Details +--------+ + + + + | Date | Type | Department | Care Team | Description | +--------+ + + + + | 02/17/ | Abstract | [facility] | Сергей Gaitan | Congestive heart | | 2018 | | CARDIOLOGY [address] | MD Don [address] | failure, unspecified | | | | [address], | [address] [place] | HF chronicity, | | | | [place] [address] | [place] [address] | unspecified heart | | | | [phone] | [phone] | failure type (HCC) | | | [...] 2020 | Visit | | [address] [facility] | | | | | | [address] [facility] | | | | | | [address] | | | | | | | [...]
--- OUTSIDE RECORDS SUMMARY | ~2019-06-26 | XMS | Encounter Summary ---
Demographics + + + | Address | [address] | | | [place] [address] | + + + | Home Phone [...] Team Providers + +------+ + | Care Solar Installer Technician Name | Role | Phone | + +------+ + | Bernadette Armendariz PA-C | PCP | | + +------+ + Encounter Details +--------+ + + + + | Date | Type | Department | Care Team | Description | +--------+ + + + + | 03/17/ | Orders Only | [facility] | James Pearce MD | Essential (primary) | | 2019 | | NEPHROLOGY [place] | [address] [place] | hypertension; | | | | [address] [place] | [address] [place], [place] | Chronic kidney | | | | [address] [place], [place] | [address] | disease, stage IV | | | | [address] | | (severe) ([facility]); | | | | [phone] | | Proteinuria; | | | | | | Secondary | | | | | | hyperparathyroidism | | | | | | of renal origin | | | | | | ([facility]); Vitamin D | | | | [...] 2019 | Visit | | [address] [facility] | | | | | | [address] [place], [place] | | | | | | [address] | | | | | | | [...]
--- OUTSIDE RECORDS SUMMARY | ~2019-06-26 | XMS | Encounter Summary ---
Demographics + + + | Address | [address] | | | [place] [address] | + + + | Home Phone [...] Team Providers + +------+ + | Care Information Security Engineer Name | Role | Phone | + +------+ + | Bernadette Armendariz PA-C | PCP | | + +------+ + Encounter Details +--------+---------+ + + + | Date | Type | Department | Care Team | Description | +--------+---------+ + + + | 03/16/ | Office | [facility] | James Pearce MD | CKD (chronic kidney | | 2019 | Visit | NEPHROLOGY [place] | [address] [facility] | disease), stage IV | | | | [address] | [address] [place], [place] | ([facility]) (Primary Dx); | | | | [address] | [address] | Vitamin D | | | | [place], [place] | | deficiency; Anemia | | | | [address] | | of chronic renal | | | | [phone] | | failure, stage 4 | | | | | | (severe) (HCC); | | | | | | Secondary | | | | | | hyperparathyroidism | | | | | | ([facility]); 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, with | | | | | | long-term current | | | | | | use of insulin | | | | | | ([facility]); Essential | | | | | [...] RFP, CBC, Iron studies, Ferritin, intact PTH, 74-kdwmozi-wqxkwvw D befor e she comes back in 3 months. P M PDT documented in this encounter Progress Notes James Pearce MD - 03/16/2019 2:10 PM PDT Progress Notes by James Pearce MD at 11/17/18 7164 Author: James Pearce MD Service: (none) Author Type: Physician Filed: 11/17/18 4234 Encounter Date: 11/17/2018 Status: Signed Gas Welder Apprentice: James Pearce MD (Physician) Patient Active Problem [...] LABIRON 82.2 (A) 11/12/2018 LABPROT 4.982 08/07/2018 [id number] 8.5 (A) 11/12/2018 Assessment: Ms. Martin is [...] RFP, CBC, Iron studies, Ferritin, intact PTH, 06-ubdorbg-uknrmay D befor e she comes back in 3 months. Thank you Colleague for the opportunity to see this patient in F/U today. Please do not hes itate to call me at any time with questions or concerns. Truly yours, James Pearce MD [facility] [place] documented in this enco unter Plan of Treatment +--------+---------+ + + + | Date | Type | Specialty | Care Team | Description | +--------+---------+ + + + | 09/27/ | Office | Nephrology | James Pearce MD | | | 2019 | Visit | | [address] [facility] | | | | | | [address] [place], [place] | | | | | | [address] | | | | | | | [...]
--- OUTSIDE RECORDS SUMMARY | ~2019-06-26 | XMS | Encounter Summary ---
Demographics + + + | Address | [address] | | | [place] [address] | + + + | Home Phone [...] Team Providers + +------+ + | Care Trauma Manager Name | Role | Phone | + +------+ + PCP | Unavailable | + +------+ + Encounter Details +--------+ + + + + | Date | Type | Department | Care Team | Description | +--------+ + + + + | 10/14/ | Hospital | [facility] | Cal Godinez, | | | 1998 | Encounter | MED CTR GENERIC OP | MD [address] | | | | | CONV DEPT [address] | [place], [place] | | | | | [place], | [address] | | | | | [place] [address] | | | | | | [phone] | | | +--------+ + + + [...] 2020 | Visit | | [address] [facility] | | | | | | [address] [place] | | | | | | [address] | | | | | | | | +--------+---------+ + + + documented as of this encounter Visit Diagnoses Not on filedocumented in this encounter"
--- OUTSIDE RECORDS SUMMARY | ~2019-06-26 | XMS | Encounter Summary ---
Demographics + + + | Address | [address] | | | [place] [address] | + + + | Home Phone [...] + +------+ + | Care Information Security Analyst Name | Role | Phone | [...] [address] | | | | | [place] [place], | [place] | | | | | [place] [address] | [place] [address] | | | | | [phone] | [phone] | | | | | | | [...] 2020 | Visit | | [address] [facility] | | | | | | [address] [place] | | | | | | [address] | | | | | | | [...]
--- OUTSIDE RECORDS SUMMARY | ~2019-06-26 | XMS | Encounter Summary ---
Demographics + + + | Address | [address] | | | [place] [address] | + + + | Home Phone [...] Team Providers + +------+ + | Care Corner Bead Operator Name | Role | Phone | [...] Visit | NEPHROLOGY [place] | [address] [facility] | disease), stage IV | | | | [address] | [address] [place], [place] | ([facility]) (Primary Dx); | | | | [address] | [address] | Vitamin D | | | | [place], [place] | | deficiency; Anemia | | | | [address] | | of chronic renal | | | | [phone] | | failure, stage 4 | | | | | | (severe) (HCC); | | | | | | Secondary | | | | | | hyperparathyroidism | | | | | | ([facility]); 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 P M PDT documented in this encounter Progress Notes James Pearce MD - 03/16/2019 2:10 PM PDT Progress Notes by James Pearce MD at 11/17/18 1573 Author: James Pearce MD Service: (none) Author Type: Physician Filed: 11/17/18 1082 Encounter Date: 11/17/2018 Status: Signed Business Continuity Manager: James Pearce MD (Physician) Patient Active Problem [...] LABIRON 82.2 (A) 11/12/2018 LABPROT 4.982 08/07/2018 [id number] 8.5 (A) 11/12/2018 Assessment: Ms. Martin is [...] RFP, CBC, Iron studies, Ferritin, intact PTH, 61-nhdfxqm-kengoqd D befor e she comes back in 3 months. Thank you Colleague for the opportunity to see this patient in F/U today. Please do not hes itate to call me at any time with questions or concerns. Truly yours, James Pearce MD [facility] MAR[place] LUISA ERLINDA documented in this enco unter Plan of Treatment +--------+---------+ + + + | Date | Type | Specialty | Care Team | Description | +--------+---------+ + + + | 09/27/ | Office | Nephrology | James Pearce MD | | | 2019 | Visit | | [address] [facility] | | | | | | [address] [place], [place] | | | | | | [address] | | | | | | | [...]
--- OUTSIDE RECORDS SUMMARY | ~2019-06-26 | XMS | Encounter Summary ---
Demographics + + + | Address | [address] | | | [place] [address] | + + + | Home Phone [...] Team Providers + +------+ + | Care Industry Operations Investigator Name | Role | Phone | + +------+ + | Bernadette Armendariz PA-C | PCP | | + +------+ + Encounter Details +--------+ + + + + | Date | Type | Department | Care Team | Description | +--------+ + + + + | 11/12/ | Orders Only | [facility] | Conversion | | | 2019 | | NEPHROLOGY [place] | Transaction, | | | | | [address] | Provider Unknown | | | | | [address] [place] | | | | | | [address] | (Fax) | | | | | [phone] | | | +--------+ + + + [...] | | | | | | 160 [place], [place] | | | | | | [address] | | | | | | | [...]
--- OUTSIDE RECORDS SUMMARY | ~2019-06-26 | XMS | Encounter Summary ---
Demographics + + + | Address | [address] | | | [place] [address] | + + + | Home Phone [...] | + + +---------+ + | Sachin Dwyre | ECON | Unknown | | + + +---------+ + | Bryan Martin | ECON | Unknown | | + + +---------+ + Care Team Providers + +------+ + | Care Spa Consultant Name | Role | Phone | [...] [facility] | James Pearce MD | Other (Priti) | | 2019 | | NEPHROLOGY [place] | [address] [facility] | | | | | [address] | [address] [place], [place] | | | | | [facility] [address] | [address] | | | | | [place], [place] | | | | | | [address] | | | | | | [phone] | | | +--------+ + + + [...] [place] | | | | | | [address] | | | | | | | | +--------+---------+ + + + documented as of this encounter Visit Diagnoses Not on filedocumented in this encounter"
--- OUTSIDE RECORDS SUMMARY | ~2019-06-26 | XMS | Encounter Summary ---
Demographics + + + | Address | [address] | | | [place] [address] | + + + | Home Phone [...] Team Providers + +------+ + | Care Extension Worker Name | Role | Phone | + +------+ + | Bernadette Armendariz PA-C | PCP | | + +------+ + Encounter Details +--------+ + + + + | Date | Type | Department | Care Team | Description | +--------+ + + + + | 12/02/ | Hospital | [facility] | [facility], | Right sided weakness | | 2019 - | Encounter | [facility] | MD Edie Michaels | | | | | CLINICAL DECISION | [address] | | | 12/04/ | | [address] | [place] [address] | | | 2018 | | [place], [place] | [phone] | | | | | [address] | | | | | | [phone] | | | +--------+ + + + [...] 12/04/18808 Date of Service: 12/04/18804 Status: Signed Energy Sales Broker: Toney Lowry MD (Physician) Merged With [facility] Service: Hospitalist Physician Discharge Summary Patient ID: Maria Ines Martin [id number] 63 y.o. 1955 Admit date: 12/02/2018 Discharge [...] disease and fol low-up outpatient with her health science specialist and steam boiler fireman. All questions were answered. Condition at discharge: stable as dictated above Primary discharge diagnosis: Right-sided weakness and uncontrolled blood hypertension Disposition: *Home Follow up: [facility] [address] [place] [address] Dictation and auto hauler or software, [employer], used which may contain error for similar [...] failure (HCC) 08/05/2018 MIC (acute kidney injury) ([facility]) 08/08/2018 Asthma CAD (coronary artery [...] diffusion-weighted imaging was obtained. MRA Brain: 3D acir-hb-ftjfsx MRA with MIP ref ormations. MRA neck: 2D mfrd-sy-tgbaoc MRA with MIP reformations. FINDINGS: MRI Brain: [...] diffusion-weighted imaging was obtained. MRA Brain: 3D wowz-iz-gcbumt MRA with MIP ref ormations. MRA neck: 2D odsq-ii-uebpyj MRA with MIP reformations. FINDINGS: MRI Brain: [...] 88.35 ml D-E Excursion: 1.83 cm E-F Garland: 0.07 m/s TAPSE: 2.80 cm HR: 74.10 [...] TV A Brock: 0.77 m/s TV Dec Garland: 2.83 m/s2 TV Dec Time: 277.60 ms TV E Brock: 0.78 m/s TV E/A Ratio: 1.01 Assistant Distribution Manager: Authenticated by: JASON BUCIO MD Report Date/Time: [...] 12/04/181301 Date of Service: 12/04/181301 Status: Signed Energy Sales Broker: Stephanie Calzada RN (Registered Nurse) Discharge instructions [...] 12/04/18539 Date of Service: 12/04/18539 Status: Signed Energy Sales Broker: Nichelle Renee RN (Registered Nurse) Chart check complete onver federico Transaction, Provider Unknown - 12/04/2018 1:09 AM PDT Nurse Progress Note by Nichelle Renee RN at 12/04/18108 Author: Nichelle Renee RN Service: (none) Author Type: Registered Nurse Filed: 12/04/18109 Date of Service: 12/04/18108 Status: Signed Energy Sales Broker: Nichelle Renee RN (Registered Nurse) Pt here [...] 1840 Date of Service: 12/03/188 Status: Signed Energy Sales Broker: Francy Orantes RN (Registered Nurse) Chart check complete. Francy Orantes 12/03/18 6:39 PM onver federico Transaction, Provider Unknown - 12/03/2018 2:30 PM PDT Nurse Progress Note by Francy Orantes RN at 12/03/18 1430 Author: Francy Orantes RN Service: (none) Author Type: Registered Nurse Filed: 12/03/18 1431 Date of Service: 12/03/18 1430 Status: Signed Energy Sales Broker: Francy Orantes RN (Registered Nurse) 135/65, holding additional norvac 5mg at this time. onver federico Transaction, Provider Unknown - 12/03/2018 1:17 PM PDT Case Management by Lisa Burns RN at 12/03/18 1317 Author: Lisa Burns RN Service: (none) Author Type: Registered Nurse Filed: 12/03/18 1328 Date of Service: 12/03/18 1317 Status: Addendum Energy Sales Broker: Lisa Burns RN (Registered Nurse) Related Notes: [...] Martin Relationship to Patient spouse Phone number [phone] Mental Status Oriented Prior functional status independent Power of It Portfolio Manager No Anticipated Discharge Plan Post Acute Care Needs None at this time Plan communicated to patient/family Yes Resources Financial concerns No Transportation issues No Patient/Family concerns No Prescription Plan Yes Name of Pharmacy [facility] Previous home health equipment Yes ( walker) Vascular access device No Ostomy/Drains/Appliances No Anticipated Disposition Facility Type Home Met with patient and discussed discharge planning, Pt is a 63 y.o., female with vertigo and rt side weakness. Pt lives [facility]/spouse and several other famil y [...] from the original home. Patient's PCP is: [facility] Patient's insurance: Medicaid//[facility] Coverage concerns: none Medication coverage/concerns: none [...] Note by Francy Orantes RN at 12/03/18 4649 Author: Francy Orantes RN Service: (none) Author Type: Registered Nurse Filed: 12/03/18 8023 Date of Service: 12/03/181142 Status: Signed Energy Sales Broker: Francy Orantes RN (Registered Nurse) Telephone order [...] 12/03/18844 Date of Service: 12/03/18844 Status: Signed Energy Sales Broker: Francy Orantes RN (Registered Nurse) New order per Dr. Lowry to administer scheduled BP meds at this time. Toney Cornejo MD - 12/03/2018 8:31 AM PDTFormatting of this note might be different from the origi nal. Progress Notes by Toney Lowry MD at 12/03/18830 Author: Toney Lowry MD Service: (none) Author Type: Physician Filed: 12/03/18843 Date of Service: 12/03/18830 Status: Signed Energy Sales Broker: Toney Lowry MD (Physician) Merged With [facility] Service: Hospitalist Progress Note Hospital Day: [...] above Code Status: Full Code Dictation and auto hauler or software, [employer], used which may contain error for similar [...] nephropathy, with long-term current use of insulin ([facility]) Non-ischemic cardiomyopathy (HCC) CKD (chronic kidney disease), stage IV (HCC) Anemia of chronic renal failure, stage 4 (severe) ([facility]) Secondary hyperparathyroidism (HCC) Visual changes [place] [facility] Past Medical History Diagnosis Date Acute renal failure ([facility]) 08/05/2018 MIC (acute kidney injury) ([facility]) 08/08/2018 Asthma CAD (coronary artery disease) CHF (congestive heart failure) ([facility]) CVA (cerebral vascular accident) ([facility]) HTN (hypertension) Hyperlipidemia Myocardial infarct (HCC) Type 2 diabetes mellitus ([facility]) HOME MEDICATIONS Prior to Admission [...] 0743 Date of Service: 12/03/18739 Status: Signed Energy Sales Broker: Francy Orantes RN (Registered Nurse) Per Dr. [...] 0745 Date of Service: 12/03/18599 Status: Signed Energy Sales Broker: Jael Ford RN (Registered Nurse) Chart check audit complete. onver federico Transaction, Provider Unknown - 12/03/2018 1:23 AM PDT Pharmacy Note by Tia Hodge RPH at 12/03/18122 Author: Tia Hodge RPH Service: Pharmacy Author Type: Pharmacist Filed: 12/03/18122 Date of Service: 12/03/18122 Status: Signed Energy Sales Broker: Tia Hodge RPH (Pharmacist) Clinical Pharmacy Note: [...] [place] | | | | | | [address] | | | | | | | [...] | | | Fingerstick | performed at [facility];[address] | | LAB | | | | [address];[place] | | | | | | [address] | | | | + + + [...] | | | Fingerstick | performed at [facility];[address] | | LAB | | | | [address];[place] | | | | | | [address] | | | | + + + [...] | | | Fingerstick | performed at [facility];[address] | | LAB | | | | [address];[place] | | | | | | [address] | | | | + + + [...] | | | Fingerstick | performed at [facility];[address] | | LAB | | | | [address];[place], [place] | | | | | | [address] | | | | + + + [...] | | | Fingerstick | performed at [facility];[address] | | LAB | | | | [address];[place] | | | | | | [address] | | | | + + + [...] | | D-E Excursion: 1.83 cm E-F Garland: 0.07 m/s TAPSE: 2.80 cm | | [...] | | | 0.77 m/s TV Dec Garland: 2.83 m/s2 TV Dec Time: 277.60 ms TV | | | E Brock: 0.78 m/s TV E/A Ratio: 1.01 Assistant Distribution Manager: | | | Authenticated by: JASON BUCIO [...] (A-L): 36.58 ml/m2LAAs A2C: 22.52 | | [id number] A-L A2C: 77.43 mlLALs A2C: 5.56 cmLAAs A4C: 20.32 [id number] A-L A4C: | | 62.81 mlLALs A4C: 5.70 cmRAAd: 13.50 [id number] A-L: 27.25 mlRAEDV MOD: 27.63 | | mlRALd: 5.67 cmAo Diam: 3.55 cmAV Cusp: 2.03 cmLA Diam: 4.21 cmLA/Ao: 1.18%FS: | | 40.81 %EDV(Teich): 123.91 mlEF(Teich): 71.30 %ESV(Teich): 35.55 mlIVSd: 1.73 | | cmIVSs: 2.32 cmLVIDd: 5.10 cmLVIDs: 3.01 cmLVPWd: 1.42 cmLVPWs: 1.66 | | cmSV(Teich): 88.35 mlD-E Excursion: 1.83 cmE-F Garland: 0.07 m/sTAPSE: 2.80 cmHR: | | 74.10 BPMAV maxP.59 mmHgAV meanP.44 mmHgAV Vmax: 1.46 m/John Vmean: | | 1.01 m/John VTI: 32.01 cmAVA Vmax: 2.68 cm2AVA (VTI): 2.67 zl5ALBB Vmax: 0.00 | | cm2/m2AVAI (VTI): 0.00 cm2/m2LVCI Dopp: 3.23 l/twtk7AEJJ Dopp: 6.18 l/minHR: | | 72.25 BPMLVOT [...] | m/sTV A Brock: 0.77 m/sTV Dec Garland: 2.83 m/s2TV Dec Time: 277.60 msTV E Brock: 0.78 | | m/sTV E/A Ratio: 1.01 Assistant Distribution Manager: ASAuthenticated by: [facility] | | Date/Time: 12-03-2018 14:17:6 IMPRESSION: [...] | |D-E Excursion: 1.83 cm | |E-F Garland: 0.07 m/s | |TAPSE: 2.80 cm | [...] A Brock: 0.77 m/s | |TV Dec Garland: 2.83 m/s2 | |TV Dec Time: 277.60 ms | |TV E Brock: 0.78 m/s | |TV E/A Ratio: 1.01 | | | |Assistant Distribution Manager: | |Authenticated by: JASON BUCIO MD | [...] | | | Basophils | performed at [facility];[address] | K/uL | LAB | | | | [address];[place] | | | | | | [address] | | | | + + + [...] EXTERNAL | | | | performed at [facility] | | LAB | | | | [address];[place] | | | | | | [address] | | | | + + + [...] | | | | | performed at [facility], [address] | | | | | | [address], | | | | | | [place] [address] | | | | + + + [...] | | | Direct | performed at [facility];[address] | | LAB | | | | [address];[place], [place] | | | | | | [address] | | | | + + + [...] | | | Cholesterol | performed at [facility], [address] | | LAB | | | , | [address], | | | | | Calculated, | [place] [address] | | | | | External | [...] | | | | | | MDRD [facility] traceable | | | | | | equation.Testing | | | | | | performed at [facility];[address] | | | | | | [facility];[place], [place] | | | | | | [address] | | | | + + + [...] | | | Fingerstick | performed at [facility];[address] | | LAB | | | | [address];[place], [place] | | | | | | [address] | | | | + + + [...] | | | Fingerstick | performed at [facility];[address] | | LAB | | | | [address];[place], [place] | | | | | | [address] | | | | + + + [...] obtained. | | | MRA Brain: 3D jlng-ia-kofdek MRA with MIP reformations. MRA neck: 2D | | | ahal-gt-acphql MRA with MIP reformations. FINDINGS: MRI Brain: [...] imaging | | was obtained.MRA Brain: 3D gffr-ld-zkeuir MRA with MIP reformations.MRA neck: 2D | | tkmc-ok-gtymwf MRA with MIP reformations.FINDINGS:MRI Brain:Brain: No restricted [...] obtained. | | | MRA Brain: 3D idoa-qu-bmuplv MRA with MIP reformations. MRA neck: 2D | | | hysq-og-prqrms MRA with MIP reformations. FINDINGS: MRI Brain: [...] imaging | | was obtained.MRA Brain: 3D soes-bk-xxkiix MRA with MIP reformations.MRA neck: 2D | | itea-mu-eahvne MRA with MIP reformations.FINDINGS:MRI Brain:Brain: No restricted [...] LAB | | | | performed at [facility], [address] | | | | | | [address], | | | | | | [place] [address] | | | | + + + [...] - 1.030 | EXTERNAL | | | [place] | | | LAB | | + [...] | | | Urine | performed at [facility], [address] | | LAB | | | | [address], | | | | | | [place] [address] | | | | + + + [...]
--- OUTSIDE RECORDS SUMMARY | ~2019-06-26 | XMS | Encounter Summary ---
Demographics + + + | Address | [address] | | | [place] [address] | + + + | Home Phone | | + + + | Preferred Language | Unknown | + + + | Marital Status | | + + + | Gnosticist Affiliation | 1041 | + + + [...] Team Providers + +------+ + | Care Adjunct Instructor Of Women'S Studies Name | Role | Phone | + [...] | Congestive | Сергей | [address] | | | | | heart | MD Don | [place], | | | | | failure, | [address] | [place] | | | | | unspecified | [place] | [address] | | | | | HF | [place], [place] | Phone: | | | | | chronicity, | [address] | [phone] | | | | | unspecified | Phone: | Fax: | | | | | heart | [phone] | [phone] | | | | | failure type | Fax: | | | | | | (HCC) | [phone] | | | | | | Coronary [...] | | | | | | | [place] or | | | | | | | transplanted | | | | | | | heart | | | | | | | Procedures | | | | | | | ECHO | | | | | | | Complete [place] | | | | | | | ECHO HEART | | | | | | | XTHORACIC,[place] | | | | | | | MPLETE W | | | | | | | DOPPLER [place] | | | | | | | [...] [address] | | | | | [address] [place], | [address] [place] | | | | | [place] [address] | [place] [address] | | | | | [phone] | [phone] | | | | | | | [...] | 09/27/ | Office | Nephrology | Jaems Pearce MD | | | 2020 | Visit | | [address] [facility] | | | | | | [address] [place], [place] | | | | | | [address] | | | | | | | [...] whether | | | | | | [place] or | | | | | | [...] or lesion | | type, unspecified whether [place] or transplanted heart | + + documented in this encounter"
--- OUTSIDE RECORDS SUMMARY | ~2019-06-26 | XMS | Encounter Summary ---
Demographics + + + | Address | [address] | | | [place] [address] | + + + | Home Phone | | + + + | Preferred Language | Unknown | + + + | Marital Status | | + + + | Jain Affiliation | 1041 | + + + | Race | Unknown | + + + | Ethnic Group | Unknown | + + + Author + + + | Author | [facility] | | | and [place] | + + + | Organization | [facility] [...] Team Providers + +------+ + | Care Instructional Coach Name | Role | Phone | + +------+ + | Bernadette Armendariz PA-C | PCP | | + +------+ + Encounter Details +--------+ + + + + | Date | Type | Department | Care Team | Description | +--------+ + + + + | 08/04/ | Orders Only | [facility] | Brynn Crawford MD | | | 2019 | | CARDIOLOGY [place] | [address] | | | | | [address] | [place] [address] | | | | | [place], [place] | [phone] | | | | | [address] | | | | | | [phone] | | | +--------+ + + + [...] 2020 | Visit | | [address] [facility] | | | | | | [address] [place] | | | | | | [address] | | | | | | | [...]
--- OUTSIDE RECORDS SUMMARY | ~2019-06-26 | XMS | Encounter Summary ---
Demographics + + + | Address | [address] | | | [place] [address] | + + + | Home Phone [...] Team Providers + +------+ + | Care Card Punching Machine Operator Name | Role | Phone | + +------+ + | Bernadette Armendariz PA-C | PCP | | + +------+ + Encounter Details +--------+ + + + + | Date | Type | Department | Care Team | Description | +--------+ + + + + | 08/05/ | Hospital | [facility] | Conversion | CAD in [place] | | 2019 - | Encounter | [facility] | Transaction, | artery; Congestive | | | | CARE FLOOR 4 888 | Provider Unknown | heart failure, | | | | [address] | [phone] | unspecified HF | | 2019 | | [place], [place] | | chronicity, | | | | [phone] | Brynn Crawford MD | unspecified heart | | | | [phone] | [address] | failure type (HCC); | | | | | [place] [address] | Precordial pain; | | | | | [phone] | Ischemic | | | | | [...] 08/11/181929 Date of Service: 08/10/18941 Status: Signed Product Builder: Gustavo Castorena MD (Physician) [facility] Service: Hospitalist Physician Discharge Summary Patient [...] Invalid input(s): ABG Disposition: HOME Follow up: [facility] [address] [place] [address] [place] [phone] Schedule an appointment as soon as possible [...] 1558 Date of Service: 08/11/181499 Status: Signed Product Builder: Cinthya Carmen RN (Registered Nurse) Pt discharge home with family. Pt states understanding about scripts and paperwork. IV d/c. Tele d/c. Family to transport pt home. onver federico Transaction, Provider Unknown - 08/11/2018 12:50 PM PST Case Management by Damaris Canchola RN at 08/11/181249 Author: Damaris Canchola RN Service: (none) Author Type: Registered Nurse Filed: 08/11/181249 Date of Service: 08/11/181249 Status: Signed Product Builder: Damaris Canchola RN (Registered Nurse) Met with [...] Date of Service: 08/11/18 1045 Status: Signed Product Builder: Shin Rivera MD (Physician) PCP : [facility] LOS: 5 days Maria Ines Martin is [...] was completed later after rounds. Dictation software, Trist, was used which may contain error for [...] 08/11/18615 Date of Service: 08/11/18614 Status: Signed Product Builder: Francy Beckford RN (Registered Nurse) VSS. Patient [...] 08/10/181751 Date of Service: 08/10/181747 Status: Signed Product Builder: Kaia Penaloza RN (Registered Nurse) Pt down [...] Notes by Teena Encinas RD at 08/10/18 7246 Author: Teena Encinas RD Service: (none) Author Type: Registered Dietitian Filed: 08/10/18 4875 Date of Service: 08/10/186 Status: Signed Product Builder: Teena Encinas RD (Registered Dietitian) 08/10/18 3142 Subjective Timepoint Follow up (diet education) Food [...] Date of Service: 08/10/18 1209 Status: Signed Product Builder: Shin Rivera MD (Physician) PCP : [facility] LOS: 4 days Maria nIes Martin is a 63 y.o. woman followed [...] was completed later after rounds. Dictation software, Trist, was used which may contain error for [...] 0957 Date of Service: 08/10/18951 Status: Signed Product Builder: Gustavo Castorena MD (Physician) [facility] Service: Hospitalist Progress Note Hospital Day: LOS: 4 days SUBJECTIVE Still c/o back pain. Slept well Did not see creative services writer HPI: Ms. Maria Ines Martin is a [...] and management as well as Computerized Physician Corporate Investigator. Disposition: Home ? Code Status: Full Code Gustavo Castorena MD 08/10/2018 9:57 AM onversion Transactio n, Provider Unknown - 08/10/2018 6:23 AM PST Nurse Progress Note by Francy Beckford RN at 08/10/18622 Author: Francy Beckford RN Service: (none) Author Type: Registered Nurse Filed: 08/10/18627 Date of Service: 08/10/18622 Status: Signed Product Builder: Francy Beckford RN (Registered Nurse) VSS. Pt [...] 08/09/181751 Date of Service: 08/09/181749 Status: Signed Product Builder: Kaia Penaloza RN (Registered Nurse) VSS today. [...] Notes by Shin Rivera MD at 08/09/18 5206 Author: Shin Rivera MD Service: Nephrology Author Type: Physician Filed: 08/10/18 0751 Date of Service: 08/09/181747 Status: Signed Product Builder: Shin Rivera MD (Physician) PCP : [facility] LOS: 3 days Maria Ines Martin is [...] outpatient follow up with Dr. Pearce in [place]. Strict low K diet. Diet 2 gm [...] was completed later after rounds. Dictation software, Trist, was used which may contain error for [...] 1421 Date of Service: 08/09/181415 Status: Signed Product Builder: Gustavo Castorena MD (Physician) [facility] Service: Hospitalist Progress Note Hospital Day: [...] and management as well as Computerized Physician Corporate Investigator. Disposition: Home ? Code Status: Full Code Gustavo Castorena MD 08/09/2018 2:16 PM onversion Transactio n, Provider Unknown - 08/09/2018 6:26 AM PST Nurse Progress Note by Francy Beckford RN at 08/09/18 7346 Author: Francy Beckford RN Service: (none) Author Type: Registered Nurse Filed: 08/09/18 3402 Date of Service: 08/09/18625 Status: Signed Product Builder: Francy Beckford RN (Registered Nurse) Patient complained [...] 08/08/182000 Date of Service: 08/08/182000 Status: Signed Product Builder: Nimo Heredia RN (Registered Nurse) No significant [...] Date of Service: 08/08/18 164 Status: Signed Product Builder: Brynn Crawford MD (Physician) [facility] Service: Cardiology/[facility] Progress Note RE: Maria Ines [...] Mild mitral regurgitation is present. Scores: 1. [id number] Score: 3 2. Bruneian Anginal Score: 3 3. NYHA Score: 2 [...] 1541 Date of Service: 08/08/181535 Status: Signed Product Builder: Damaris Canchoal RN (Registered Nurse) Tc from [facility]([phone]), CM with [facility] re d/c plan, infor med that d/c date is still unknown. [facility] transport dept, states they dont provide transportation on wkn[place], but would need to call [facility] for [place] transport call . If [facility] is not able to provide transportation, need to ask family or pay for taxi. Kathe Gustavo Lara MD - 08/08/2018 2:53 PM PSTFormatting of this note might be different from the or iginal. Progress Notes by Gustavo Castorena MD at 08/08/18 9912 Author: Gustavo Castorena MD Service: Internal Medicine Author Type: Physician Filed: 08/08/181456 Date of Service: 08/08/181452 Status: Signed Product Builder: Gustavo Castorena MD (Physician) [facility] Service: Hospitalist Progress Note Hospital Day: [...] LIST Principal Problem: GRACIELA (acute kidney injury) ([facility]) Active Problems: Ischemic cardiomyopathy Chronic systolic heart failure (HCC) Hyperkalemia Essential hypertension Type 2 diabetes mellitus with complication, with long-term current use of insulin ([facility]) ASSESSMENT / PLAN Heart failure [...] and management as well as Computerized Physician Corporate Investigator. Disposition: Home ? Code Status: Full Code Gustavo Castorena MD 08/08/2018 2:53 PM Shin Vale MD - 08/08/2018 11:26 AM PST Progress Notes by Shin Rivera MD at 08/08/18 1126 Author: Shin Rivera MD Service: Nephrology Author Type: Physician Filed: 08/10/18 1223 Date of Service: 08/08/18 1126 Status: Signed Product Builder: Shin Rivera MD (Physician) PCP : [facility] LOS: 2 days Maria Ines Martin is [...] was completed later after rounds. Dictation software, Trist, was used which may contain error for similar sounding words nabor jackman after review. Personal communication is requested for any clarification. Prognosis is guarded in view of multiple comorbid illnesses and acute on chronic renal fail ure including but not limited to potential need for TAG WRITER and . amLODIPine 7.5 mg Oral Daily [...] 0700 Date of Service: 08/08/1859 Status: Signed Product Builder: Little Infante RN (Registered Nurse) Pt had [...] 08/07/182005 Date of Service: 08/07/182005 Status: Signed Product Builder: Nimo Heredia RN (Registered Nurse) No significant [...] Management by Damaris Canchola RN at 08/07/18 7023 Author: Damaris Canchola RN Service: (none) Author Type: Registered Nurse Filed: 08/07/18 1202 Date of Service: 08/07/18 1156 Status: Signed Product Builder: Damaris Canchola RN (Registered Nurse) Tc to Kathrin([phone]), CM with [facility] re d/c plan, LMTCB Per pt, wants CM to call Cecilia civil transportation engineer re transport back [phone]. Per Adilene, for wknd medicaid transport call Kathe onver federico Transaction, Provider Unknown - 08/07/2018 11:47 AM PST Case Management by Damaris Canchola RN at 08/07/18 1147 Author: Damaris Canchola RN Service: (none) Author Type: Registered Nurse Filed: 08/07/18 1149 Date of Service: 08/07/18 1147 Status: Signed Product Builder: Damaris Canchola RN (Registered Nurse) 08/07/18 1100 [...] with spouse and child(disabled chi ld) in [place]. Pt states she is indep with all her adl's, but does use a cane if needed f or outdoors as she has vision deficits.no home o2, no anticoagulants, no HD. Plans to return home Patient's PCP is: [facility] Patient's insurance[facility] Coverage concerns: [...] 1058 Date of Service: 08/07/181049 Status: Signed Product Builder: Gustavo Castorena MD (Physician) [facility] Service: Hospitalist Progress Note Hospital Day: [...] and management as well as Computerized Physician Corporate Investigator. Disposition: Home ? Code Status: Full Code Gustavo Castorena MD 08/07/2018 10:50 AM Brynn Hanna MD - 8:47 AM PST Progress Notes by Brynn Crawford MD at 08/07/18 5146 Author: Brynn Crawford MD Service: Cardiology Author Type: Physician Filed: 08/07/18 0914 Date of Service: 08/07/18 0847 Status: Signed Product Builder: Brynn Crawford MD (Physician) [facility] Service: Cardiology/[facility] Progress Note RE: Maria Ines [...] Mild mitral regurgitation is present. Scores: 1. [id number] Score: 2. Bruneian Anginal Score: 3. NYHA Score: ASSESSMENT: 1. [...] her [facility] fraction than what it was reported [facility] at [facility]. Regardless with her history of chest discomforts [...] 08/07/18626 Date of Service: 08/07/18625 Status: Signed Product Builder: Agustina Cade RN (Registered Nurse) End of shift audit complete. AGUSTINA CADE RN onver federico Transaction, Provider Unknown - 08/06/2018 5:18 PM PST Nurse Progress Note by Jacquie Miranda RN at 08/06/181717 Author: Jacquie Miranda RN Service: (none) Author Type: Registered Nurse Filed: 08/06/181718 Date of Service: 08/06/181717 Status: Signed Product Builder: Jacquie Miranda RN (Registered Nurse) End of shift chart check completed Gustavo Lara MD - 08/06/2018 1:52 PM PSTFormatting of this note might be different from the or iginal. Progress Notes by Gustavo Castorena MD at 08/06/18 342 Author: Gustavo Castorena MD Service: Internal Medicine Author Type: Physician Filed: 08/06/18 1358 Date of Service: 08/06/18 181 Status: Signed Product Builder: Gustavo Castorena MD (Physician) [facility] Service: Hospitalist Progress Note Hospital Day: [...] and management as well as Computerized Physician Corporate Investigator. Disposition: Home ? Code Status: Full Code Gustavo Castorena MD 08/06/2018 1:55 PM onversion Transactio n, Provider Unknown - 08/06/2018 12:04 PM PST Progress Notes by Anjali Kerr RD at 08/06/18 1204 Author: Anjali Kerr RD Service: (none) Author Type: Registered Dietitian Filed: 08/06/18 1203 Date of Service: 08/06/18 120 Status: Signed Product Builder: Anjali Kerr RD (Registered Dietitian) 08/06/18 2470 Subjective Timepoint Admit Pt c/o Pt triggered for dysphagia. Pt admitted for acute renal failure. 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 Pt went ov er her hx of [...] any concerns for dysphag ia consider ordering VICE PRESIDENT OF CONSULTING SERVICES eval. Anthropometrics Weight change Pt's BMI is 34 and pt is 166% of IBW. Pt reports she has gained wt over the p ast 4 months after stopping meth. Biochemical data, medical tests, and procedures reviewed Biochemical data, medical tests, and procedures reviewed Labs reviewed. Recommendations Recommended energy needs Continue diet as ordered with modications per VICE PRESIDENT OF CONSULTING SERVICES, if needed. Enco urage po intake as [...] 0936 Date of Service: 08/06/18850 Status: Signed Product Builder: Brynn Crawford MD (Physician) [facility] Service: Cardiology/[facility] Progress Note RE: Maria Ines [...] prolonged QRS Imaging Chest X-Ray: Scores: 1. [id number] Score: 2. Bruneian Anginal Score: 3. NYHA Score: ASSESSMENT: 1. [...] question about this report please contact me. Byrnn Crawford MD, F.A.C.C. 08/06/2018 8:52 AM onversion Transaction, Provider Unknown - 08/06/2018 5:18 AM PSTFormatting of this note might be different from t he original. Nurse Progress Note by Cheryl Patel RN at 08/06/18517 Author: Cheryl Patel RN Service: (none) Author Type: Registered Nurse Filed: 08/06/18517 Date of Service: 08/06/18517 Status: Signed Product Builder: Cheryl Patel RN (Registered Nurse) End of shift audit complete. onver federico Transaction, Provider Unknown - 08/05/2018 5:56 PM PST Nurse Progress Note by Ghada Crawley RN at 08/05/181755 Author: Ghada Crawley RN Service: (none) Author Type: Registered Nurse Filed: 08/05/181755 Date of Service: 08/05/18 1756 Status: Signed Product Builder: Ghada Crawley RN (Registered Nurse) End of shift review complete GHADA CRAWLEY RN Brynn Merrill MD - 08/05/2018 1:38 PM PSTFormatting of this note might be different from the orig inal. Progress Notes by Brynn Crawford MD at 08/05/18 9781 Author: Brynn Crawford MD Service: Cardiology Author Type: Physician Filed: 08/05/18 6337 Date of Service: 08/05/18 4156 Status: Signed Product Builder: Brynn Crawford MD (Physician) Mrs. Martin presented [...] was seen by Dr. Vic Gaitan in [facility] for evaluation. An echoca rdiogram was [...] cant ST or T-wave abnormalities. Scores: 1. [id number] Score: 4 2. Bruneian Anginal Score: 2 3. NYHA Score: 2-3 [...] 2019 | Visit | | [address] [facility] | | | | | | [address] | | | | | | [address] | | | | | | | [...] | | Fingerstick | performed at [facility];[address] | | LAB | | | | [address];[place] | | | | | | [address] | | | | + + + [...] | | Fingerstick | performed at [facility];[address] | | LAB | | | | [address];[place], [place] | | | | | | [address] | | | | + + + [...] | | | | | performed at [facility], [address] | | | | | | [address], | | | | | | [place] [address] | | | | + + + [...] | | Fingerstick | performed at [facility];[address] | | LAB | | | | [address];[place], [place] | | | | | | [address] | | | | + + + [...] | | Fingerstick | performed at [facility];[address] | | LAB | | | | [address];[place], [place] | | | | | | [address] | | | | + + + [...] | | Fingerstick | performed at [facility];[address] | | LAB | | | | [address];[place], [place] | | | | | | [address] | | | | + + + [...] | | Fingerstick | performed at [facility];[address] | | LAB | | | | [address];[place] | | | | | | [address] | | | | + + + [...] EXTERNAL | | | | performed at [facility], [address] | | LAB | | | | [address], | | | | | | [place] [address] | | | | + + + [...] | | | | | performed at [facility], [address] | | | | | | [facility], | | | | | | [place] [address] | | | | + + + [...] | | Fingerstick | performed at [facility];[address] | | LAB | | | | [address];[place], [place] | | | | | | [address] | | | | + + + [...] | | Fingerstick | performed at [facility];[address] | | LAB | | | [address];[place], [place] | | | | | | [address] | | | | + + + [...] | | Fingerstick | performed at [facility];[address] | | LAB | | | | [address];[place] | | | | | | [address] | | | | + + + [...] EXTERNAL | | | | performed at [facility], [address] | | LAB | | | | [address], | | | | | | [place] [address] | | | | + + + [...] EXTERNAL | | | | performed at [facility], [address] | | LAB | | | | [address], | | | | | | [place] [address] | | | | + + + [...] | | | | | performed at [facility], [address] | | | | | | [facility], | | | | | | [place] [address] | | | | + + + [...] | | Fingerstick | performed at [facility];[address] | | LAB | | | | [address];[place], [place] | | | | | | [address] | | | | + + + [...] | | Fingerstick | performed at [facility];[address] | | LAB | | | | [address];[place] | | | | | | [address] | | | | + + + [...] radial artery and a | | | 6-Burmese sheath was placed. The JL-3.5 catheter was [...] right radial artery and a | | 6-Burmese sheath was placed. The JL-3.5 catheter was [...] | | Fingerstick | performed at [facility];[address] | | LAB | | | | [address];[place] | | | | | | [address] | | | | + + + + + + + + | Specimen | + + | | + + + +---------+ + + | Performing | Address | City/State/Zipcode | Phone Number | | Organization | | | | + +---------+ + + | EXTERNAL LAB | | | | + +---------+ + + [facility] (08/08/2018 12:12 PM PST) + + + + + + | Component | Value | Ref Range | Performed | Pathologist | | | | | At | Signature | + + + + + + | [facility] | 96.5 (H)Comment: | mg/L | EXTERNAL [...] + + + + + + | [facility] | 1.50Comment: Reference | | EXTERNAL | | | a Free | range: 0.26 to | | LAB | | | Light [facility] | 1.65Testing performed at | | | | | Ratio | [facility], [address] | | | | | | [place] | | | | | | [address] | | | | + + + [...] | | Comp 4 | performed at [facility], [address] | | LAB | | | | [address], | | | | | | [place] [address] | | | | + + + [...] at | | | | | | [facility], [address] [facility] | | | | | | [place] | | | | | | [address] | | | | + + + [...] | | | | | [place] [address] | | | | + + + [...] | | | | | | at [facility], [address] | | | | | | [place] [address], | | | | | | [place] [address] | | | | + + + [...] | | | | | performed at [facility], [address] | | | | | | [facility], | | | | | | [place] [address] | | | | + + + [...] | | | | | performed at [facility], [address] | | | | | | [address] | | | | | | [place] [address] | | | | + + + [...] | | | | | with both VT-3 and | | | | | | [...] | | | 3 | performed by [facility], | | | | | | [address], | | | | | | [facility] [address] | | | | + + + [...] | | | | | | [place] [address] | | | | + + + [...] | | Quant, CSF | performed at [facility], | | | | | | [address], [address], | | | | | | [place] [address] | | | | + + + [...] EXTERNAL | | | | performed at [facility], [address] | | LAB | | | | [address], | | | | | | [place] [address] | | | | + + + [...] EXTERNAL | | | | performed at [facility], [address] | | LAB | | | | [address], | | | | | | [place] [address] | | | | + + + [...] | | | | | [place] [address] | | | | + + + [...] | | Fingerstick | performed at [facility];[address] | | LAB | | | | [address];[place], [place] | | | | | | [address] | | | | + + + [...] | | Fingerstick | performed at [facility];[address] | | LAB | | | | [address];[place], [place] | | | | | | [address] | | | | + + + [...] EXTERNAL | | | | performed at [facility], [address] | | LAB | | | | [address] [facility], | | | | | | [place] [address] | | | | + + + [...] EXTERNAL | | | | performed at [facility], [address] | | LAB | | | | [address], | | | | | | [place] [address] | | | | + + + [...] | | | | | performed at [facility], [address] | | | | | | [facility], | | | | | | [place] [address] | | | | + + + [...] | | Fingerstick | performed at [facility];[address] | | LAB | | | | [address];[place] | | | | | | [address] | | | | + + + [...] | | Fingerstick | performed at [facility];[address] | | LAB | | | | [address];[place], [place] | | | | | | [address] | | | | + + + [...] | | | | performed at [facility] | | | | | | [facility];[place] | | | | | | [address] | | | | + + + [...] | | Fingerstick | performed at [facility];[address] | | LAB | | | | [address];[place] | | | | | | [address] | | | | + + + [...] | | at Ratio | performed at [facility], [address] | | LAB | | | | [facility], | | | | | | [place] [address] | | | | + + + [...] | | | | | performed at [facility], [address] | | | | | | [facility], | | | | | | [place] [address] | | | | + + + [...] LAB | | | | performed at [facility], [address] | | | | | [address], | | | | | | [place] [address] | | | | + + + [...] LAB | | | | performed at [facility], [address] | | | | | [address], | | | | | | [place] [address] | | | | + + + [...] | | Fingerstick | performed at [facility];[address] | | LAB | | | | [address];[place], [place] | | | | | | [address] | | | | + + + [...] EXTERNAL | | | | performed at [facility], [address] | | LAB | | | | [address], | | | | | | [place] [address] | | | | + + + [...] EXTERNAL | | | | performed at [facility], [address] | | LAB | | | | [address], | | | | | | [place] [address] | | | | + + + [...] | | | | | performed at [facility], [address] | | | | | | [facility], | | | | | | [place] [address] | | | | + + + [...] | | Fingerstick | performed at [facility];[address] | | LAB | | | | [address];[place], [place] | | | | | | [address] | | | | + + + [...] | | Fingerstick | performed at [facility];[address] | | LAB | | | | [address];[place] | | | | | | [address] | | | | + + + [...] | A Brock: 0.60 m/s TV Dec Appling: 2.33 m/s2 TV Dec Time: | | | 240.52 ms TV E Brock: 0.56 m/s TV E/A Ratio: 0.92 | | | Speed Belt Sander Tender: GONZALO Authenticated by: Brynn Crawford MD Report Date/Time: | | | -- [id number] | | + + + + + [...] mlLAESV Index (A-L): 40.23 ml/m2LAAs A2C: 24.44 sd4STMSQ A-L | | A2C: 74.48 mlLALs A2C: 6.81 cmLAAs A4C: 21.96 on1BAOGO A-L A4C: 68.67 mlLALs | | A4C: 5.96 cmRAAd: 13.73 gf2DGXLR A-L: 33.61 mlRAEDV MOD: 31.44 mlRALd: 4.76 | | cmEPSS: 2.39 cmAV maxP.50 mmHgAV meanP.57 mmHgAV Vmax: 1.76 m/John | | Vmean: 1.20 m/John VTI: 39.54 cmAVA Vmax: 2.19 cm2AVA (VTI): 2.37 mj7GWDV Vmax: | | 0.00 cm2/m2AVAI (VTI): 0.00 [...] 25.31 cmTV A Brock: 0.60 m/sTV Dec Appling: 2.33 m/s2TV | | Dec Time: 240.52 msTV E Brock: 0.56 m/sTV E/A Ratio: 0.92 Speed Belt Sander Tender: | | GDAuthenticated by: Brynn Crawford MDReport Date/Time: [id number] | | IMPRESSION: 1. Overall left ventricular [...] A Brock: 0.60 m/s | |TV Dec Appling: 2.33 m/s2 | |TV Dec Time: 240.52 ms | |TV E Brock: 0.56 m/s | |TV E/A Ratio: 0.92 | | | |Speed Belt Sander Tender: GD | |Authenticated by: Brynn Crawford MD | |Report Date/Time: -- [id number] | | | |IMPRESSION: | |1. Overall [...] LAB | | | | performed at [facility], [address] | | | | | | Janet Saeed, | | | | | | [place] [address] | | | | + + + [...] - 1.030 | EXTERNAL | | | [place] | | | LAB | | + [...] | | | Urine | performed at [facility], [address] | | LAB | | | | Janet Saeed, | | | | | | [place] [address] | | | | + + + [...] | | | | performed at [facility];888 | mmol/L | LAB | | | | Tal[address]ae[address];[place], [place] | | | | | | [address] | | | | + + + [...] | | Fingerstick | performed at [facility];[address] | | LAB | | | | [address];[place], [place] | | | | | | [address] | | | | + + + [...] EXTERNAL | | | | performed at [facility], [address] | | LAB | | | | Janet Saeed, | | | | | | [place] [address] | | | | + + + [...] | | | | | [place] [address] | | | | + + + [...] EXTERNAL | | | | performed at [facility], [address] | | LAB | | | | Janet [address]ae[address], | | | | | | [place] [address] | | | | + + + [...] | EXTERNAL | | | A1c | [place] Diabetes | | LAB | | | [...] | | | | | performed at [facility], [address] | | | | | | [facility], | | | | | | [place] [address] | | | | + + + [...] | | | | performed at [facility];[address] | | | | | | [facility];[place], [place] | | | | | | [address] | | | | + + + [...] | | Fingerstick | performed at [facility];[address] | | LAB | | | | [address];[place], [place] | | | | | | [address] | | | | + + + [...] | | | | performed at [facility];888 | mmol/L | LAB | | | | Tal[address] Saeed;[place] | | | | | | [address] | | | | + + + [...] | | Fingerstick | performed at [facility];[address] | | LAB | | | | Talita Saeed;[place] | | | | | | [address] | | | | + + + [...] | | | | performed at [facility];[address] | | | | | | [address];[place], [place] | | | | | | [address] | | | | + + + [...] | | Basophils | performed at [facility];888 | K/uL | LAB | | | | [address];[place], [place] | | | | | | [address] | | | | + + + [...] | | | | | | MDRD IDPR traceable | | | | | | equation.Testing | | | | | | performed at [facility] | | | | | | [facility];[place], [place] | | | | | | [address] | | | | + + + [...] Diagnosis | + + | CAD in greenville artery Coronary atherosclerosis of greenville coronary artery | + + | Congestive heart failure, unspecified HF chronicity, unspecified heart failure type | | (HCC) | + + | Precordial pain | + + | Ischemic cardiomyopathy Other specified forms of chronic ischemic heart disease | + + documented in this encounter
--- OUTSIDE RECORDS SUMMARY | ~2019-06-26 | XMS | Encounter Summary ---
Demographics + + + | Address | [address] | | | [place] [address] | + + + | Home Phone [...] Team Providers + +------+ + | Care Pleat Patternmaker Name | Role | Phone | + +------+ + PCP | Unavailable | + +------+ + Encounter Details +--------+ + + + + | Date | Type | Department | Care Team | Description | +--------+ + + + + | 10/23/ | Hospital | [facility] | Cal Godinez, | | | 2000 | Encounter | MED CTR XRAY [address] | MD [address] [facility] | | | | | [place] | [place], [place] | | | | | [place] [address] | [id number] | | | | | [phone] | | | +--------+ + + + [...] 2020 | Visit | | [address] [facility] | | | | | | [address] [place] | | | | | | [address] | | | | | | | | +--------+---------+ + + + documented as of this encounter Visit Diagnoses Not on filedocumented in this encounter"
--- OUTSIDE RECORDS SUMMARY | ~2019-06-26 | XMS | Encounter Summary ---
Demographics + + + | Address | [address] | | | [place] [address] | + + + | Home Phone | | + + + | Preferred Language | Unknown | + + + | Marital Status | | + + + | Yazidism Affiliation | 1041 | + + + | Race | Unknown | + + + | Ethnic Group | Unknown | + + + Author + + + | Author | [facility] | | | and [place] | + + + | Organization | [facility] | | | [...] Team Providers + +------+ + | Care Log Feeder Name | Role | Phone | [...] [place] | | | | | | [address] | (Fax) | | | | | [phone] | | | +--------+ + + + [...] 2020 | Visit | | [address] [facility] | | | | | | [address] [place], [place] | | | | | | [address] | | | | | | | [...]
--- OUTSIDE RECORDS SUMMARY | ~2019-06-26 | XMS | Encounter Summary ---
Demographics + + + | Address | [address] | | | [place] [address] | + + + | Home Phone | | + + + | Preferred Language | Unknown | + + + | Marital Status | | + + + | Restorationist Affiliation | 1041 | + + + | Race | Unknown | + + + | Ethnic Group | Unknown | + + + Author + + + | Author | [facility] | | | and [place] | + + + | Organization | [facility] | | | [...] Providers + +------+ + | Care Inspector Chief Name | Role | Phone | + +------+ + | Bernadette Armendariz PA-C | PCP | | + +------+ + Encounter Details +--------+ + + + + | Date | Type | Department | Care Team | Description | +--------+ + + + + | 02/17/ | Abstract | [facility] | Сергей Gaitan | Congestive heart | | 2018 | | CARDIOLOGY [address] | MD Don [address] | failure, unspecified | | | | [address], | [address] [place] | HF chronicity, | | | | [place] [address] | [place] [address] | unspecified heart | | | | [phone] | [phone] | failure type (HCC) | | | [...] | | | | | | [address] [facility] | | | | | | [address] | | | | | | | [...]
--- OUTSIDE RECORDS SUMMARY | ~2019-06-26 | XMS | Encounter Summary ---
Demographics + + + | Address | [address] | | | [place] [address] | + + + | Home Phone [...] Team Providers + +------+ + | Care Wafer Cutter Name | Role | Phone | + +------+ + | Bernadette Armendariz PA-C | PCP | | + +------+ + Encounter Details +--------+ + + + + | Date | Type | Department | Care Team | Description | +--------+ + + + + | 03/11/ | Orders Only | [facility] | James Pearce MD | Essential (primary) | | 2019 | | NEPHROLOGY [place] | [address] [place] | hypertension | | | | [address] [place] | [address] [place], [place] | (Primary Dx); CKD | | | | [address] [place], [place] | [address] | (chronic kidney | | | | [address] | | disease), stage IV | | | | [phone] | | (HCC); Nephrotic | | | [...] | | | | | | [address] [place], [place] | | | | | | [address] | | | | | | | [...]
--- OUTSIDE RECORDS SUMMARY | ~2019-06-26 | XMS | Encounter Summary ---
Demographics + + + | Address | [address] | | | [place] [address] | + + + | Home Phone [...] + + | Author | [facility] | | | and [place] | + + + | Organization | [facility] | | [...] Team Providers + +------+ + | Care Jde Developer Name | Role | Phone | [...] | | | | | | [place] [address] | | | | | | [phone] | | | +--------+ + + + [...] 2020 | Visit | | [address] [facility] | | | | | | [address] [place], [place] | | | | | | [address] | | | | | | | | +--------+---------+ + + + documented as of this encounter Visit Diagnoses Not on filedocumented in this encounter"
--- OUTSIDE RECORDS SUMMARY | ~2019-06-26 | XMS | Encounter Summary ---
Demographics + + + | Address | [address] | | | [place] [address] | + + + | Home Phone [...] Team Providers + +------+ + | Care Grouter Helper Name | Role | Phone | [...] [place] | | | | | [place], [place] | [address] | | | | | [address] | | | | | | [phone] | | | +--------+ + + + [...] [place] | | | | | | [address] | | | | | | | [...] MV A Brock: 0.82 m/s MV Dec [place]: 7.33 | | | m/s2 MV DecT: [...] | | | TR Vmax: 3.14 m/s Emissions Testing And Repair Technician: ZORA Authenticated by: | | | TAMARA [...] cmLVIDd: 5.42 cmLVPWd: 0.88 cmLVOT Area: 3.30 [id number] Diam: | | 2.05 cm%FS: 19.68 %EF(Teich): [...] (A-L): 25.38 ml/m2LAAs | | A2C: 14.99 [id number] A-L A2C: 42.95 mlLALs A2C: 4.44 cmLAAs A4C: 15.41 [id number] | | A-L A4C: 43.34 mlLALs A4C: 4.65 cmRAAs: 12.68 [id number] A-L: 35.28 mlRAESV MOD: | | 33.87 mlRALs: 3.87 cmTAPSE: 1.84 cmAV maxP.42 mmHgAV meanP.69 mmHgAV | | Vmax: 1.36 m/John Vmean: 0.90 m/John VTI: 23.16 cmAVA Vmax: 2.43 cm2AVA (VTI): | | 2.55 tt7CFBQ (Vmax): 0.00 cm2/m2AVAI (VTI): 0.00 cm2/m2LVOT maxP.01 mmHgLVOT | | meanP.12 mmHgLVSI Dopp: 34.03 ml/m2LVSV Dopp: 59.22 mlLVOT Vmax: 1.00 | | m/sLVOT Vmean: 0.69 m/sLVOT VTI: 17.90 cmMV A Brock: 0.82 m/sMV Dec [place]: 7.33 | | m/s2MV DecT: 140.20 msMV E Brock: 1.02 m/sMV E/A Ratio: 1.25MV PHT: 40.65 msMVA By | | PHT: 5.41 gx2Xwbvhp e': 0.03 m/sSeptal E/e': 29.00Lateral e': 0.04 m/sLateral | | E/e': 24.10RAP: 10 mmHgRVSP: 49.46 mmHgTR maxP.46 mmHgTR Vmax: 3.14 m/s | | Emissions Testing And Repair Technician: ZORAAuthenticated by: Kiko BUTLER Date/Time: 01-28-2018 18:52:56 [...] A Brock: 0.82 m/s | |MV Dec [place]: 7.33 m/s2 | |MV DecT: 140.20 ms [...] |TR Vmax: 3.14 m/s | | | |Emissions Testing And Repair Technician: DBS | |Authenticated by: TAMARA MAHONEY MD [...]
--- OUTSIDE RECORDS SUMMARY | ~2019-06-26 | XMS | Encounter Summary ---
Demographics + + + | Address | [address] | | | [place] [address] | + + + | Home Phone [...] Team Providers + +------+ + | Care Manufacturing Design Engineer Name | Role | Phone [...] [address] | | | | | [place], | [address] [place] | | | | | [place] [address] | [place] [address] | | | | | [phone] | [phone] | | | | | | | [...] 2020 | Visit | | [address] [facility] | | | | | | [address] [place] | | | | | | [address] | | | | | | | [...]
--- OUTSIDE RECORDS SUMMARY | ~2019-06-26 | XMS | Clinical Summary ---
Demographics + + + | Address | [address] | | | [place] [address] | + + + | Home Phone [...] [address] | | | | | [address] | | + + + + + Care Team Providers + +------+ + | Care Systems Eng Name | Role | Phone | + +------+ + PCP | Unavailable | + +------+ + Source Comments [facility] is fully live on both [facility] and [facility] Allergies Not on File Medications Not [...]
--- OUTSIDE RECORDS SUMMARY | ~2019-06-26 | XMS | Encounter Summary ---
Demographics + + + | Address | [address] | | | [place] [address] | + + + | Home Phone | | + + + | Preferred Language | Unknown | + + + | Marital Status | | + + + | Anabaptism Affiliation | 1041 | + + + | Race | Unknown | + + + | Ethnic Group | Unknown | + + + Author + + + | Author | [facility] | | | and [place] | + + + | Organization | [facility] | | [...] Team Providers + +------+ + | Care Leather Stretcher Name | Role | Phone | + +------+ + | Nathalie Castorena | PCP | | + +------+ + Encounter Details +--------+ + + + + | Date | Type | Department | Care Team | Description | +--------+ + + + + | 06/22/ | Orders Only | [facility] | James Pearce MD | Essential (primary) | | 2019 | | NEPHROLOGY [place] | [address] [place] | hypertension | | | | [address] | [address] [place], [place] | (Primary Dx); Anemia | | | | [address] [address] | [address] | of chronic renal | | | | [place], [place] | | failure, stage 4 | | | | [address] | | (severe) ([facility]); CKD | | | | [phone] | | (chronic kidney | | | [...] | | | | | | [address] [place], [place] | | | | | | [address] | | | | | | | [...]
--- OUTSIDE RECORDS SUMMARY | ~2019-06-26 | XMS | Encounter Summary ---
Demographics + + + | Address | [address] | | | [place] [address] | + + + | Home Phone [...] Team Providers + +------+ + | Care Hydroblaster Name | Role | Phone | + [...] (congestive | PA-C [address] | [address] | | | | | heart | [address] | [place], | | | | | failure) | [place] | [place] | | | | | (HCC) | [address] | [address] | | | | | Procedures | [place], | Phone: | | | | | RUBBER GOODS TESTER 02/11 > | [place] | [phone] | | | | | PENDING DOS | [address] | Fax: | | | | | | Phone: | [phone] | | | | | | [phone] | | | | | | | Fax: | | | | | | | [phone] | | +--------+--------+ + + + + Encounter Details +--------+---------+ + + + | Date | Type | Department | Care Team | Description | +--------+---------+ + + + | 03/03/ | Office | [facility] | Сергей Vasquez | Congestive heart | | 2017 | Visit | CARDIOLOGY [address] | MD Don [address] | failure, unspecified | | | | [place], | [address] [place] | HF chronicity, | | | | [place] [address] | [place] [address] | unspecified heart | | | | [phone] | [phone] | failure type (HCC) | | | [...] whether | | | | | | [place] or | | | | | | [...] procedure. 6. Make sure you have a backhaul driver to take you home. Your backhaul driver will also need to sign you [...] hospital line at and ask for nursing oil field equipment mechanic supervisor t o let them know you [...] 4.7 Final Albumin/Globulin Ratio 01/27/2018 0.5 Final [facility] 01/27/2018 27.0 26.0 - 33.0 pg Final MCHC 01/27/2018 33.0 30.0 - 36.0 % Final BASOPHILS % 01/27/2018 0.3 1.0 % Final I reviewed records from [facility] for hospitalization,including H&P, Discharge S surgical specialty center and lab reports on 01/27/18 and [...] made to ensure accuracy; however, inadvertent computerized environmental project manager errors may be pre sent. Electronically signed by: Kyler Vasquez MD PhD [facility] 03/03/2018 documented in t his encounter Plan of Treatment +--------+---------+ + + + | Date | Type | Specialty | Care Team | Description | +--------+---------+ + + + | 09/27/ | Office | Nephrology | James Pearce MD | | | 2019 | Visit | | [address] [facility] | | | | | | [address] [place], [place] | | | | | | [address] | | | | | | | [...] whether | | | | | | [place] or | | | | | | [...] whether | | | | | | [place] or | | | | | | [...] whether | | | | | | [place] or | | | | | | [...] MD | | | | | | ([id number]) on 03/04/2018 | | | | | [...] or lesion | | type, unspecified whether [place] or transplanted heart | + + documented in this encounter
--- OUTSIDE RECORDS SUMMARY | ~2019-06-26 | XMS | Encounter Summary ---
Demographics + + + | Address | [address] | | | [place] [address] | + + + | Home Phone [...] Team Providers + +------+ + | Care Sluice Tender Name | Role | Phone | + +------+ + | Bernadette Armendariz PA-C | PCP | | + +------+ + Encounter Details +--------+ + + + + | Date | Type | Department | Care Team | Description | +--------+ + + + + | 02/23/ | Orders Only | [facility] | Provider, | Essential (primary) | | 2018 | | SYSTEM GENERIC OP | MD [address] | hypertension; Type 2 | | | | CONVERSION [address] | [address] | diabetes mellitus | | | | [address] [place], [place] | [place] [address] | with complications | | | | [address] | | ([facility]); Acute kidney | | | | [phone] | | failure ([facility]); | | | | | | Chronic kidney | | | | | | disease, stage IV | | | | | | (severe) ([facility]); | | | | | | Proteinuria; | | | | | | Secondary | | | | | | hyperparathyroidism | | | | | | of renal origin | | | | | | ([facility]); Vitamin D | | | | | [...] 2019 | Visit | | [address] [facility] | | | | | | [address] [place], [place] | | | | | | [address] | | | | | | | [...] | | | | | ([facility]) Vitamin D | | | | | [...] | | | | | ([facility]) Vitamin D | | | | | [...] | | | | (severe) ([facility]) | | | | | | Proteinuria | | | | | | Secondary | | | | | | hyperparathyroidism | | | | | | of renal origin | | | | | | ([facility]) Vitamin D | | | | | [...] | | | | (severe) ([facility]) | | | | | | Proteinuria | | | | | | Secondary | | | | | | hyperparathyroidism | | | | | | of renal origin | | | | | | ([facility]) Vitamin D | | | | | [...]
--- OUTSIDE RECORDS SUMMARY | ~2019-06-26 | XMS | Encounter Summary ---
Demographics + + + | Address | [address] | | | [place] [address] | + + + | Home Phone [...] Team Providers + +------+ + | Care Conservation Assistant Name | Role | Phone | [...] + + | 03/10/ | Telephone | [facility] | Сергей Gaitan | Other (procedure | | 2017 | | [address] | MD Don [address] | cancellation) | | | | [place], | [address] [place] | | | | | [place] [address] | [place] [address] | | | | | [phone] | [phone] | | | | | | | [...] [place] | | | | | | [address] | | | | | | | | +--------+---------+ + + + documented as of this encounter Visit Diagnoses Not on filedocumented in this encounter"
[~2019-06-26 22:27] MED LIST changes: +CLEOCIN HCL300 MG PO
--- OUTSIDE RECORDS SUMMARY | 2019-06-26 22:30 | XMS ---
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 Care History Medical/Surgical 04/21/2018 [facility] - PATIENT HAS [facility] PROVIDER: - PLEASE REFER PATIENT TO [facility] FOR NON EMERGENT MEDICAL NEEDS. - IF PATIENT CALLS EARLY IN THE AM TO [facility] PATIENT CAN BE SEEN SAME DAY FOR ANY NON EMERGENT MEDICAL NEEDS. - [facility] CONTACT # [phone] - PATIENT HAS A LONG EXTENSIVE HX WITH METHAMPHETAMINE USAGE. - PHYSICIAN DISCRECTION- TOX SCREEN BEFORE TREATMENT. Care Recommendation: - USE EXTREME CAUTION IN GIVING NARCOTICS TO THIS PATIENT. - Avoid Discharge Narcotic prescriptions if at all possible. Please use clinical judgement. E.D. VISIT COUNT (12 MO.) 2 [facility] 12 MANJU Cel[place] TOTAL 14 NOTE: Visits indicate total known visits. ED/UCC VISIT TRACKING (12 MO.) 06/26/2019 22:27 [facility] [place] TYPE: Emergency COMPLAINT: - SYNCOBLE 06/25/2019 20:09 [facility] [place] TYPE: Emergency COMPLAINT: - COUGH 06/03/2019 20:49 [facility] [place] TYPE: Emergency COMPLAINT: - SKIN PROBLEM DIAGNOSES: - Anemia, unspecified - Unspecified asthma, uncomplicated - Old myocardial infarction - Allergy status to other antibiotic agents status - Lower abdominal pain, unspecified - Heart failure, unspecified - USP (current) use of insulin - Prsnl hx of TIA (TIA), and cereb infrc w/o resid deficits - USP (current) use of aspirin - Unspecified kidney failure - 1 Type 2 diabetes mellitus without complications - salvage determiner (current) use of inhaled steroids - Cellulitis of abdominal wall - Other fci (current) drug therapy - Personal history of nicotine dependence 05/23/2019 09:18 [facility] [place] TYPE: Emergency COMPLAINT: - BACK PAIN, ABD PAIN DIAGNOSES: - Heart failure, unspecified - Prsnl hx of TIA (TIA), and cereb infrc w/o resid deficits - 1 Type 2 diabetes mellitus w diabetic chronic kidney disease - USP (current) use of aspirin - Other tank terminal gauger (current) drug therapy - Unspecified abdominal pain - Personal history of nicotine dependence - USP (current) use of insulin - Chronic kidney [...] unspecified - Chronic kidney disease, unspecified - USP (current) use of insulin - Allergy status to other antibiotic agents status - Unspecified visual disturbance - Heart failure, unspecified - Syncope and collapse - Dizziness and giddiness - Unspecified asthma, uncomplicated - 1 Type 2 diabetes mellitus w diabetic chronic kidney disease - Old myocardial infarction - Prsnl hx of TIA (TIA), and cereb infrc w/o resid deficits 12/02/2018 00:00 [facility] TYPE: Emergency 12/02/2018 00:00 [facility] TYPE: Emergency DIAGNOSES: - Vision Distrubances 12/01/2018 16:06 [facility] [place] TYPE: Emergency COMPLAINT: - BLURRED VISION, RIGHT SIDED WEAKNESS DIAGNOSES: - salvage determiner (current) use of insulin - Prsnl hx of TIA (TIA), and cereb infrc w/o resid deficits - Unspecified visual disturbance - Other visual disturbances - Other tank terminal gauger (current) drug [...] and cereb infrc w/o resid deficits - salvage determiner (current) use of insulin - Puncture wound without foreign body, right foot, init encntr - Personal history of nicotine dependence - 1 Type 2 diabetes mellitus without complications - Other fci (current) drug therapy - USP (current) use of aspirin 10/01/2018 19:00 [facility] [place] TYPE: Emergency COMPLAINT: - ABD PAIN DIAGNOSES: - Left lower quadrant pain - Heart failure, unspecified - Old myocardial infarction - USP (current) use of insulin - Unspecified asthma, uncomplicated - USP (current) use of aspirin - 1 Type 2 diabetes mellitus without complications - Other fci (current) drug therapy - Cellulitis of abdominal wall - Allergy status to oth drug/meds/biol subst status 09/09/2018 07:55 [facility] [place] TYPE: Emergency COMPLAINT: - COUGH DIAGNOSES: - Personal history of nicotine dependence - Allergy status to oth drug/meds/biol subst status - Cough - 1 Type 2 diabetes mellitus without complications - Pneumonia, unspecified organism - Other tank terminal gauger (current) drug therapy - USP (current) use of insulin - Chronic sinusitis, unspecified 08/21/2018 15:13 [facility] [place] TYPE: Emergency COMPLAINT: - DIFFICULTY BREATHING DIAGNOSES: - Old myocardial infarction - USP (current) use of insulin - Other tank [...] asthma, uncomplicated - Chest pain, unspecified - USP (current) use of insulin - 1 Type 2 diabetes mellitus without complications - Allergy status to oth drug/meds/biol subst status - Other tank terminal gauger (current) drug therapy - Viral infection, unspecified INPATIENT VISIT TRACKING (12 MO.) 12/02/2018 21:21 [facility] TYPE: Observation DIAGNOSES: - Vision Distrubances - Weakness 08/05/2018 10:20 [facility] TYPE: Cardiology DIAGNOSES: - Ischemic cardiomyopathy - Heart failure, unspecified - 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
--- NOTE | 2019-06-27 02:10 | NUR ---
GLUCOSE 208. INSULIN GTT AT 3.4 (STARTED IN ED AT THIS RATE) DECREASED RATE TO 2.8
--- NOTE | 2019-06-27 03:00 | NUR ---
BLOOD GLUCOSE 178, INSULIN GTT AT 2.8ML/HR DECREASED TO 2.4ML/HR PER CIDDAG. VERIFIED WITH SECOND RN.
--- NOTE | 2019-06-27 04:00 | NUR ---
BLOOD GLUCOSE 185, INSULIN GTT AT 2.4ML/HR NO CHANGE PER CIDDAG. VERIFIED WITH SECOND RN.
--- NOTE | 2019-06-27 04:00 | NUR ---
BLOOD GLUCOSE 178, INSULIN GTT AT 2.4ML/HR NO CHANGE PER CIDDAG. VERIFIED WITH SECOND RN.
--- NOTE | 2019-06-27 04:14 | NUR ---
0155 - pt ARRIVED FROM ED. MOVED SELF FROM STRETCHER TO BSC, VOIDED. AMBULATED 1PA TO BED. INSULIN GTT INFUSING AT 3.4. pt EMOTIONAL, DISCUSSED HEALTH AT LENGTH. ABBEY AT BEDSIDE SUPPORTIVE OF pt. DISCUSSED PLAN OF CARE. ORIENTED TO UNIT. ASSESSMENT AND ADMISSION COMPLETED. NEW IV STARTED BY YOUSIF FIELD. RT ADMINISTERED BREATHING TREATMENT. pt SETTLED IN ROOM. COUCH MADE FOR . LIGHTS OFF FOR COMFORT. pt VERBALIZED UNDERSTAND TO CALL. CALL LIGHT WITHIN REACH.
--- NOTE | 2019-06-27 05:00 | NUR ---
BLOOD GLUCOSE 167, INSULIN GTT AT 2.4ML/HR NO CHANGE PER CIDDAG. VERIFIED WITH SECOND RN.
--- NOTE | 2019-06-27 05:21 | NUR ---
ASSESSMENT DONE. NO CHANGES FROM PRIOR ASSESSMENT. pt RESTING IN BED. CALL LIGHT WITHIN REACH.
--- NOTE | 2019-06-27 06:00 | NUR ---
BLOOD GLUCOSE 155, INSULIN GTT AT 2.4ML/HR DECREASED TO 1ML/HR PER CIDDAG. VERIFIED WITH SECOND RN.
--- NOTE | 2019-06-27 06:59 | NUR ---
BLOOD GLUCOSE 146, INSULIN GTT AT 1ML/HR DECREASED TO 0.9ML/HR PER CIDDAG. VERIFIED WITH SECOND RN.
--- NOTE | 2019-06-27 07:39 | NUR ---
REPORT RECEIVED FROM FIELD CARE ADVOCATE RN.
--- NOTE | 2019-06-27 08:00 | NUR ---
BLOOD SUGAR CHECKED AT 153. TITRATED INSULIN DRIP TO 1ML/HR. IN TO ASSESS PT. PT REPORTING 8/10 HEADACHE. TYLENOL GIVEN. PT WITH HARSH COUGH, RESPIRATIONS 30'S TO 40'S. ELEVATED HOB, RT IN FOR BREATHING TREATMENT. PT ABLE TO RECOVER. RESPIRATIONS 18 NOW. PT ABLE TO HAVE CONVERSATION. LUNGS DIM IN BASES, CLEAR IN BILAT UPPER FEILDS.
--- NOTE | 2019-06-27 09:21 | NUR ---
DR LAWRENCE IN TO ROUND ON PT. PLAN OF CARE DISCUSSED AND QUESTIONS ANSWERED. BLOOD SURAG CHECKED AT 154. ORDERS TO DC INSULIN DRIP AND FLUIDS.
--- NOTE | 2019-06-27 09:36 | EKG ---
[facility] [address] [facility] [place] [address] Signed Sinus rhythm with occasional and consecutive premature ventricular complexes and fusion complexes Low voltage QRS Abnormal ECG When compared with ECG of 02-DEC-2018 12:22, fusion complexes are now present premature ventricular complexes are now present Confirmed by CIERRA LAWRENCE DO ([id number]) on 06/27/2019 9:35:46 AM Electronically Signed By: CIERRA LAWRENCE DO 06/27/19 0936 PATIENT NAME: JOSE G COX Electrocardiogram DATE OF : 59 PHYSICIAN: CIERRA LAWRENCE DO REPORT #: [id number] REPORT IS CONFIDENTIAL AND NOT TO BE RELEASED WITHOUT AUTHORIZATION
--- NOTE | 2019-06-27 10:33 | NUR ---
ASSISTED PT TO BATHROOM THEN TO BED. VOIDED 200ML. CALL LIGHT IN REACH. REPORTS HEADACHE HAS RESOLVED. DENIES FURTHER NEEDS.
--- NOTE | 2019-06-27 12:01 | NUR ---
LUNCH ORDERED. PT FELLING "BETTER". DENIES PAIN. CALL LIGHT IN REACH.
--- NOTE | 2019-06-27 14:00 | NUR ---
PT ASSISTED STAND BY TO BED. CALL LIGHT IN REACH. ATE 80% OF LUNCH. 1 UNIT OF INSULIN GIVEN. DENIES FURTHER NEEDS.
--- NOTE | 2019-06-27 15:48 | NUR ---
PT TRANSFERED TO MEDICAL FLOOR VIA BED. ALL PERSONAL BELONGINGS WITH PT. REPORT GIVEN TO CORINNE FIELD.
--- NOTE | 2019-06-27 16:00 | NUR ---
PT RECEIVED FROM CCU. VSS. PT ON ROOM AIR, LUNG SOUNDS CLEAR, COUGHING FIT AFTER AMBULATING TO BATHROOM, RT CALLED FRO CABRERA. PT SALINE LOCKED. BOWEL TONES ACTIVE, DENIES NAUSEA. PT SBA TO AMBULATE TO BATHROOM. ORIENTED TO ROOM, DISCUSSED PLAN OF CARE FOR THE EVENING. PT DENIES OTHER NEEDS AT THIS TIME.
--- NOTE | 2019-06-27 17:00 | NUR ---
PT GIVEN 1 UNIT SS HUMALOG FOR BLOOD GLUCOSE 136. PT SBA TO BATHROOM. PT DENIES OTHER NEEDS AT THIS TIME.
--- NOTE | 2019-06-27 20:09 | NUR ---
EASEMENT WORKER ROUNDING NOTE. PT RESTING IN BED AWAKE. DENIES QUESTIONS, CONCERNS, OR NEEDS AT THIS TIME. STATES SHE JUST FINISHED DRINKING 7UP. CALL LIGHT IN REACH. WHITE BOARD UPDATED.
--- NOTE | 2019-06-27 20:13 | NUR ---
cbg 188, received 3 units sc ss insulin, coop. Laying in bed, room air, lungs with exp wheezing bilat. sob with exertion noted when pt turned in bed. Coop with assessment. stated Last bm today. fresh water given and call light at bedside. family rooming in.
--- NOTE | 2019-06-28 01:43 | NUR ---
currently resting, no distress, on room air, call light at bedside, family in room
--- NOTE | 2019-06-28 02:55 | NUR ---
IN ROOM TO ASSIST PT TO BATHROOM. ASSESSMENT COMPLETED AT THIS TIME. PT HAS BECAME SHORT OF BREATH WITH AMBULATION, RESPIRATORY RATE= 30. LUNGS SOUND DIMINISHED IN THE BOTH BASES. SPO2 98 PERCENT ON ROOM AIR. RT CALLED FOR A BREATHING TREATMENT. RIGHT HAND IV DC'D DUE TO PAIN WHEN FLUSHING. OTHER IV SITES PATENT.
--- NOTE | 2019-06-28 03:18 | NUR ---
PT REPORTS SHORTNESS OF BREATH HAS DECREASED. RESPIRATORY RATE AND EFFORT BACK TO BASELINE. PT EATING CRACKERS. AT BEDSIDE. NO FURTHER NEEDS AT THIS TIME.
--- NOTE | 2019-06-28 05:52 | NUR ---
PT RESTING, BREATHING EVEN AND UNLABORED. R=18. IN ROOM. CALL LIGHT AND PERSONAL BELONGINGS WITHIN REACH.
--- NOTE | 2019-06-28 07:23 | NUR ---
0700: Report received from [facility]. PT sleeping at this time, call short within reach.
--- NOTE | 2019-06-28 08:12 | NUR ---
PT DENIES ANY NEW PROBLEMS AND SHE HAS SOME GRUNTING NOTED WITH HER BREATHING BUT STATES HER BREATHING IS "MUCH BETTER". SAT 100% ON ROOM AIR, LUNG SOUNDS HAVE EXP WHEEZES WHICH SOUND IF THEY ARE RADIATING FROM THE UPPER AIRWAY. RT TO THE BEDSIDE GIVING HER SCHEDULED NEBS, SEE EMAR. CALL WAY WITHIN REACH AND THE PT REMINDED TO CALL FOR A SBA BEFORE GETTING UP WHICH SHE STATES UNDERSTANDING. PT'S SPOUSE REMAINS AT THE BEDSIDE.
--- NOTE | 2019-06-28 08:20 | NUR ---
DID PATIENT'S BLOOD SUGAR CHECK. ALSO HELPED HER AND HER CAREGIVER ORDER THERE BREAKFAST. ALSO I ASKED HER IF SHE WOULD LIKE TO TAKE A SHOWER TODAY AND SHE SAID YES.
[2019-06-28] MEDS ORDERED: DOXYCYCLINE HY100 MG PO ×2 (10:05)
[2019-06-28] MEDS ORDERED: IPRAT-ALBUT 0.5-3 ML INH ×2 (10:06)
[2019-06-28] MEDS ORDERED: ALBUTEROL2.5 MG/3 M INH ×2 (10:07)
--- NOTE | 2019-06-28 10:07 | NUR ---
PT DENIES ANY NEW PROBLEMS AND STATES SHE IS FEELING "BETTER" AND IS LOOKING FORWARD TO GOING HOME TODAY. PT NOW GETTING READY FOR A SHOWER.
[2019-06-28] MEDS ORDERED: SODIUM BICARBO650 MG PO ×2 (10:08)
--- NOTE | 2019-06-28 11:03 | NUR ---
PT'S IV SITE DC'D, TIP INTACT. VSS. PT DRESSED AND IS AWAITING HER RIDE HOME FROM HER SON AT THIS TIME. SHE DENIES ANY PROBLEMS AT THIS TIME.
== END 2019-06-28 11:22 | disposition home or self-care (01) ==
LOC: ED 22:27 → CCU 22:28 → MS 06-27 15:45 → CCU 06-27 15:45 → MS 06-28 11:22
PROVIDERS: ADMIT Student in an Organized Health Care Education/Training Program
DX: R55 Syncope and collapse (principal); E11.65 Type 2 diabetes mellitus with hyperglycemia; N17.9 Acute kidney failure, unspecified; E87.2 Acidosis; E87.5 Hyperkalemia; J40 Bronchitis, not specified as acute or chronic; E78.5 Hyperlipidemia, unspecified; I25.2 Old myocardial infarction; E11.22 Type 2 diabetes mellitus with diabetic chronic kidney disease; I13.2 Hypertensive heart and chronic kidney disease with heart failure and with stage 5 chronic kidney disease, or end stage renal disease; N18.5 Chronic kidney disease, stage 5; I50.42 Chronic combined systolic (congestive) and diastolic (congestive) heart failure; F19.11 Other psychoactive substance abuse, in remission; F10.21 Alcohol dependence, in remission; Z87.891 Personal history of nicotine dependence; Z91.14 Patient's other noncompliance with medication regimen; Z88.1 Allergy status to other antibiotic agents; Z79.82 Long term (current) use of aspirin; Z79.4 Long term (current) use of insulin; Z79.899 Other long term (current) drug therapy
CPT/HCPCS: 36415; 71045; 80048; 80053; 81001; 82010; 82800; 83735; 83880; 84100; 84484; 85025; 86850; 86900; 86901; 93005; 93010; 94640; 96365; 96374; 96376; 99285-25; G0378; J1815; J3475; J7030; J7070; J7121

== ENCOUNTER 2019-07-23 14:10 | Emergency (ER) | payer OTHER ==
[~2019-07-23] VITALS: Ht 160 cm; Wt 92.6 kg
--- OUTSIDE RECORDS SUMMARY | ~2019-07-23 | XMS | Encounter Summary ---
Demographics + + + | Address | [address] | | | [place] [address] | + + + | Home Phone | | + + + | Preferred Language | Unknown | + + + | Marital Status | | + + + | Worship Affiliation | 1041 | + + + | Race | Unknown | + + + | Ethnic Group | Unknown | + + + Author + + + | Author | [facility] | | | and [place] | + + + | Organization | [facility] | | | and [...] Team Providers + +------+ + | Care Registered Nurse Maternal Child Name | Role | Phone | + +------+ + | Nathalie Castorena | PCP | | + +------+ + Reason for Visit +--------+ + | Reason | Comments | +--------+ + | Other | Trevin auth started | +--------+ + | Other | Trevin denied | +--------+ + Encounter Details +--------+ + + + + | Date | Type | Department | Care Team | Description | +--------+ + + + + | 06/30/ | Telephone | [facility] | Cheryl Livingston | Other (Trevin auth | | 2019 | | NE[facility]HOLOGY [place] | RASHIDA Alvarez | started); Other | | | | [address] | | (Trevin adams) | | | | [address] [place], [place] | | | | | | [address] | | | | | | [phone] | | | +--------+ + + + + Social History + +-------+ [...] + + documented as of this encounter Plan of Treatment +--------+---------+ + + + | Date | Type | Specialty | Care Team | Description | +--------+---------+ + + + | 09/27/ | Office | Nephrology | James Pearce MD | | | 2020 | Visit | | [address] [facility] | | | | | | [address] [place] | | | | | | [address] | | | | | | | | +--------+---------+ + + + documented as of this encounter Visit Diagnoses Not on filedocumented in this encounter"
--- OUTSIDE RECORDS SUMMARY | ~2019-07-23 | XMS | Clinical Summary ---
Demographics + + + | Address | [address] | | | [place] [address] | + + + | Home Phone | | + + + | Preferred Language | Unknown | + + + | Marital Status | | + + + | Sabianist Affiliation | 1041 | + + + | Race | Unknown | + + + | Ethnic Group | Unknown | + + + Author + + + | Author | [facility] | | | and [place] | + + + | Organization | [facility] | | | and [place] | + + + | Address | Unknown | + + + | Phone | Unavailable | + + + Support + + +---------+ + | Name | Relationship | Address | Phone | + + +---------+ + | Bryan Martin | ECON | Unknown | | + + +---------+ + | Sachinirene Dwyer | ECON | Unknown | | + + +---------+ + | Bryan Martin | ECON | Unknown | | + + +---------+ + Care Team Providers + +------+ + | Care Supervising Bailiff Name | Role | Phone | + +------+ + | Nathalie Castorena | PCP | | + +------+ + Allergies + [...] 81 MG | Daily. | | | 8 | | e | | EC tablet [...] tablet by | 90 | 3 | 02/1 | | Activ | | (LIPITOR) 10 mg | mouth nightly. | tablet | | /20 | | e | | tablet | [...] to 3 puffs | | 0 | 02/1 | | Activ | | mcg/puff inhaler | by mouth UP TO every | | | /20 | | e | | | 2 hours if needed | | | 19 | | | + + + +---------+------+------+-------+ | amLODIPine | Take 1 tablet by | | 0 | 05/ | 11/19 | Activ | | (NORVASC) 5 mg | mouth daily. | | | 01/08 | 12/08 | e | | tablet | | | | 19 | 20 | | + + + +---------+------+------+-------+ | ascorbic acid | Take 1 tablet by | | 0 | /2 | 07/23 | Activ | | (VITAMIN C) 500 MG | mouth daily. | | | 08/10 | 08/10 | e | | tablet | | | | 19 | 20 | | + + + +---------+------+------+-------+ | cholecalciferol | Take 2,000 Units by | | 0 | /2 | /2 | Activ | | (CHOLECALCIFEROL) | mouth [...] ULTRAFINE III | | | 0 | 02/2 | | Activ | | SHORT PEN 31G X 8 MM | | | | 8/20 | | e | | | | | | 19 | | | + + + +---------+------+------+-------+ | losartan (COZAAR) | Take 1 tablet by | | 0 | 05/ | 05 | Activ | | 100 MG tablet [...] ODT) 4 mg | | | | 4/20 | | e | | disintegrating | | | | 19 | | | | tablet | | | | | | | + + + +---------+------+------+-------+ | predniSONE | take 2 tablets by | | 0 | 02/1 | | Activ | | (DELTASONE) 20 mg | mouth once daily for | | | 20 | | e | | tablet | 5 days | | | 19 | | | + + + +---------+------+------+-------+ | traMADol (ULTRAM) | Take 1 tablet by | | 0 | 01/2 | | Activ | | 50 mg tablet | mouth every 6 (six) | | | 1/20 | | e | | | hours [...] | | + + + +---------+------+------+-------+ | clindamycin | | | 0 | 05/22 | | Activ | | (CLEOCIN) 300 MG | | | | 8/ | | e | | capsule | | | | 19 | | | + + + +---------+------+------+-------+ | darbepoetin cathy | Inject 3.3 mLs under | 3.3 mL | 5 | 12/0 | | Activ | | (ARANESP, ALBUMIN | the skin Every 28 | | | 2/20 | | e | | FREE,) 60 mcg/mL | days. | | | 19 | | | | injectionIndications | | | | | | | | : Essential | | | | | | | | (primary) | | | | | | | | hypertension, Anemia | | | | | | | | of chronic renal | | | | | | | | failure, stage 4 | | | | | | | | (severe) (HCC), CKD | | | | | | | | (chronic kidney | | | | | | | | disease), stage IV | | | | | | | | (HCC), Nephrotic | | | | | | | | range proteinuria | | | | | | | + + + +---------+------+------+-------+ | darbepoetin cathy | Inject 0.3 mLs under | 0.3 mL | 5 | 12/0 | | Activ | | (ARANESP) 60 mcg/0.3 | the skin Every 28 | | | 3/20 | | e | | mL | days. | | | 19 | | | | injectionIndications | | | | | | | | : Essential | | | | | | | | (primary) | | | | | | | | hypertension, Anemia | | | | | | | | of chronic renal | | | | | | | | failure, stage 4 | | | | | | | | (severe) (HCC), CKD | | | | | | | | (chronic kidney | | | | | | | | disease), stage IV | | | | | | | | (HCC), Nephrotic | | | | | | | | range proteinuria | | | | | | | [...] + + | Overview: Echocardiogram done at [facility] on 01/28/18 | | shows overall left [...] | +--------+ + + + + | 07/08/ | Telephone | Nephrology | Cheryl Livingston | Other (MANNY carlson | 2018 | | | RASHIDA Alvarez | for IV Feraheme); | | | | | | Other (IV Feraheme | | | | | | approved from | | | | | | 07/09/19-10/08/19) | +--------+ + + + + | 07/07/ | Documentati | Nephrology | Luis | Results (07/02/19) | | 2018 | on | | Maninder Suarez | | | | | | Safe Deposit Clerk | | +--------+ + + + + | 06/30/ | Telephone | Nephrology | Cheryl Livingston | Other (Trevin guillory | 2018 | | | RASHIDA Alvarez | started); Other | | | | | | (Trevin adams) | +--------+ + + + + | 06/24/ | Telephone | Nephrology | James Pearce MD | Other (Trevin) | | 2018 | | | | | +--------+ + + + + | 06/22/ | Office | Nephrology | James Pearce MD | CKD (chronic kidney | | 2019 | Visit | | | disease), stage IV | | | | | | ([facility]) (Primary Dx); | | | | | | Anemia of chronic | | | | | | renal failure, stage | | | | | | 4 (severe) ([facility]); | | | | | | Essential (primary) | | | | | | hypertension; 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, with | | | | | | long-term current | | | | | | use of insulin | | | | | | ([facility]); Secondary | | | | | | hyperparathyroidism | | | | | | ([facility]); Nephrotic | | | | | | range proteinuria; | | | | | | Vitamin D deficiency | +--------+ + + + + | 06/22/ | Orders Only | Nephrology | Jamse Pearce MD | Essential (primary) | | 2019 | | | | hypertension | | | | | | (Primary Dx); Anemia | | | | | | of chronic renal | | | | | | failure, stage 4 | | | | | | (severe) ([facility]); CKD | | | | | | (chronic kidney | | | | | | disease), stage IV | | | | | | ([facility]); Nephrotic | | | | | | range proteinuria | +--------+ + + + + | 06/22/ | Documentati | Nephrology | Smith, | Results (06/17/19) | | 2019 | on | | [facility] | | | | | | Safe Deposit Clerk | | +--------+ + + + + from [...] + + + | Blood Pressure | 138/62 | 06/22/2019 3:35 PM | | | | | PST | | + + + + + | Pulse | 78 | 06/22/2019 3:35 PM | | | | | PST | | + + + + + | Temperature | 36.8 C (98.2 F) | 12/04/2018 11:04 AM | | | | | PDT | | + + + + + | Respiratory Rate | 20 | 12/04/2018 11:04 AM | | | | | PDT | | + + + + + | Oxygen Saturation | - | - | | + + + + + | Inhaled Oxygen | - | - | | | Concentration | | | | + + + + + | Weight | 88.4 kg (194 lb 12.8 | 06/22/2019 3:35 PM | | | | oz) | PST | | + + + + + | Height | 160 cm (5' 3") | 06/22/2019 3:35 PM | | | | | PST | | + + + + + | Body Mass Index | 34.51 | 06/22/2019 3:35 PM | | | | | PST | | + + + + + Plan of Treatment +--------+---------+ + + + | Date | Type | Specialty | Care Team | Description | +--------+---------+ + + + | 09/27/ | Office | Nephrology | James Pearce MD | | | 2020 | Visit | | [address] [facility] | | | | | | [address] [place] | | | | | | [address] | | | | | | | | +--------+---------+ + + + + + + + + | Health Maintenance | Due Date | Last Done | Comments | + + + + + | Vaccine: | | | | | Pneumococcal 19-64 | 3 | | | | (1 of 3 - PCV13) | | | | + [...] + + | Vaccine: Zoster (1 | 06/20/200 | | | | of 2) | [...] + +--------+ + + + | CBC NO DIFFERENTIAL | Routin | 07/02/2019 | | Results for this | | | e | | | procedure are in the | | | | | | results section. | + +--------+ + + + | RENAL FUNCTION PANEL | Routin | 07/02/2019 | | Results for this | | | e | | | procedure are in the | | | | | | results section. | + +--------+ + + + | EXTERNAL LAB: PTH, | Routin | 06/17/2019 | | Results for this | | INTACT | e | | | procedure are in the | | | | | | results section. | + +--------+ + + + | IRON AND IRON | Routin | 06/17/2019 | | Results for this | | BINDING CAPACITY | e | | | procedure are in the | | | | | | results section. | + +--------+ + + + | VITAMIN D, | Routin | 06/17/2019 | | Results for this | | 25-HYDROXY, LC/MS/MS | e | | | procedure are in the | | | | | | results section. | + +--------+ + + + | RENAL FUNCTION PANEL | Routin | 06/17/2019 | | Results for this | | | e | | | procedure are in the | | | | | | results section. | + +--------+ + + + | CBC NO DIFFERENTIAL | Routin | 06/17/2019 | | Results for this | | | e | | | procedure are in the | | | | | | results section. | + +--------+ + + + from Last 3 Months Results CBC with Manual Differential (07/02/2019)Only the most recent of 2 results within the time period is included. + + + + + + | Component | Value | Ref Range | Performed | Pathologist | | | | | At | Signature | + + + + + + | WBC | 7.56 | 4.0 | | | + + + + + + | RBC | 2.76 (A) | 3.80 M/uL | | | + + + + + + | Hemoglobin | 8.06 (A) | 12 - 16 | | | + + + + + + | Hematocrit, | 24.1 (A) | 35.0 - 45.0 % | | | | POC | | | | | + + + + + + | MCV | 87.2 | 81.0 - 98.0 fL | | | + + + + + + | MCH | 29.2 | 27.0 - 33.0 pg | | | + + + + + + | MCHC | 33.4 | 30.0 - 36.0 | | | | | | g/dL | | | + + + + + + | Platelet | 200 | 140 - 440 | | | | Count | | | | | | Plasma | | | | | + + + + + + | BAL | 67 | 37 - 67 % | | | | Neutrophils | | | | | | % | | | | | + + + + + + | Neutrophils | 5.05 | 1.3 | | | | , Absolute | | | | | + + + + + + | % | 21.30 (A) | 24 - 44 | | | | Lymphocytes | | | | | + + + + + + | Absolute | 1.61 | 0.8 | | | | Lymphocytes | | | | | + + + + + + | Monocyte % | 6.60 | 5 - 12 | | | + + + + + + | Absolute | 0.50 | 0.2 | | | | Monocytes | | | | | + + + + + + | BAL | 5 | 0 - 5 % | | | | Eosinophils | | | | | | % | | | | | + + + + + + | Eosinophils | 0.39 | 0 - 0.8 | | | | , Absolute | | | | | + + + + + + | BF % | 0 | 0 - 2 % | | | | Basophils | | | | | + + + + + + | Basophils, | 0.02 | 0.0 | | | | Absolute | | | | | + + + + + + + + | Specimen | + + | Blood | + + Renal Function Panel (07/02/2019)Only the most recent of 2 results within the time period i s included. + + + + + + | Component | Value | Ref Range | Performed | Pathologist | | | | | At | Signature | + + + + + + | Na | 140 | 135 - 140 | | | | | | mmol/L | | | + + + + + + | K | 4.9 | 3.5 - 5.0 | | | | | | mmol/L | | | + + + + + + | Cl | 112 (A) | 97 - 107 mmol/L | | | + + + + + + | CO2 | 22 | 22 - 29 mmol/L | | | + + + + + + | Anion Gap | 11 (A) | 14 - 22 mmol/L | | | + + + + + + | Glucose | 152 (A) | 65 - 99 mg/dL | | | + + + + + + | BUN | 40 (A) | 8 - 25 mg/dL | | | + + + + + + | Creatinine | 2.80 | 0.70 mg/dL | | | + + + + + + | BUN/Creatin | 14.4 | 11.0 | | | | ine Ratio | | | | | + + + + + + | Estimated | 18.0 (A) | 60.0 - 140.0 | | | | GFR | | mL/min/1.73m2 | | | + + + + + + | Calcium | 7.5 (A) | 8.5 | | | + + + + + + | Protein, | 5.6 (A) | 6.2 | | | | Total | | | | | + + + + + + | Albumin | 2.6 (A) | 3.5 g/dL | | | + + + + + + | BILIRUBIN, | 0.4 | 0.1 | | | | TOTAL | | | | | + + + + + + | AST | 26 | 0 U/L | | | + + + + + + | ALT | 26 | 0 - 41 U/L | | | + + + + + + | ALP, | 104 | 40 - 129 | | | | External | | | | | + + + + + + + + | Specimen | + + | Blood | + + External Lab: PTH, Intact (06/17/2019) + +---------+ + + + | Component | Value | Ref Range | Performed | Pathologist | | | | | At | Signature | + +---------+ + + + | PTH INTACT | 156 (A) | 15 - 65 pg/mL | | | + +---------+ + + + + + | Specimen | + + | | + + Vitamin D, 25-Hydroxy, LC/MS/MS (06/17/2019) + +--------+ + + + | Component | Value | Ref Range | Performed | Pathologist | | | | | At | Signature | + +--------+ + + + | Vitamin D, | 24 (A) | 30 - 100 ng/mL | | | | 25 Hydroxy | | | | | + +--------+ + + + + + | Specimen | + + | Blood | + + Iron and Iron Binding Capacity (06/17/2019) + + + + + + | Component | Value | Ref Range | Performed | Pathologist | | | | | At | Signature | + + + + + + | Iron | 62 | 30 - 180 ug/dL | | | + + + + + + | Iron | 28 | 20 - 55 % | | | | Saturation | | | | | + + + + + + | TIBC | 218 (A) | 245 - 400 ug/dL | | | + + + + + + | TRANSFERRIN | 157.0 (A) | 260.0 - 400.0 | | | | | | mg/dL | | | + + + + + + | Ferritin, | 62 | 30 - 180 | | | [...] | [employer] | [employer] | [id number] | 01/28/20 | [phone] | | Medica | | MEDICAID HMO | HEALTH | | 18-Pre | 1 | | id | | | MDCD | | sent | | | | | | HMO OR | | | | | | + +--------+ +--------+ +---------+--------+ | [employer] | IHS | [id number] | | | | Indemn | | SERVICE | YELLOW | | 018-Pr | | | ity | | | HAWK | | esent | | | | + +--------+ +--------+ +---------+--------+ | [employer] | [employer] | [id number] | 02/23/20 | [phone] | | Medica | | MEDICAID HMO | HEALTH | | 19-Pre | 1 | | id | | | MDCD | | sent | | | | | | HMO [place] | | | | | | + +--------+ +--------+ +---------+--------+ | [employer] | IHS | [id number] | | | | Indemn | | [...] +--------+ +--------+ + + | Maria Ines Martin | Person | Self [birth year] | [address] | | | al/Fam | | 1955 | [phone] | [address] [place] | | | jeni | | | 4 (Home) | [address] | + +--------+ +--------+ + + | MarioMaria Ines Hunt | Person | Self | [birth year] | [address] | | | al/Fam | | 1955 | [phone] | [address] [place] | | | jeni | | | 2 (Home) | [phone] | + +--------+ +--------+ + + Advance Directives + + + + + | Type | Date Recorded | Patient | Explanation | | | | [employer] | | + + + + + | Power of | | | | | Lease Purchase Driver | | | | + + + + + | Advance | | | | | Directive | | | | + + + + +
--- OUTSIDE RECORDS SUMMARY | ~2019-07-23 | XMS | Encounter Summary ---
Demographics + + + | Address | [address] | | | [place] [address] | + + + | Home Phone | | + + + | Preferred Language | Unknown | + + + | Marital Status | | + + + | Adventism Affiliation | 1041 | + + + | Race | Unknown | + + + | Ethnic Group | Unknown | + + + Author + + + | Author | [facility] | | | and [place] | + + + | Organization | [facility] | | | [...] Team Providers + +------+ + | Care Expansion Joint Builder Name | Role | Phone | + +------+ + | Bernadette Armendariz PA-C | PCP | | + +------+ + Encounter Details +--------+ + + + + | Date | Type | Department | Care Team | Description | +--------+ + + + + | 03/20/ | Abstract | [facility] | Сергей Gaitan | | | 2017 | | [address] | MD Don [address] | | | | | [place], | [address] [place] | | | | | [place] [address] | [place] [address] | | | | | [phone] | [phone] | | | | | | | [...] 2020 | Visit | | [address] [facility] | | | | | | [address] [place] | | | | | | [address] | | | | | | | | +--------+---------+ + + + documented as of this encounter Procedures + +--------+ + + + | Procedure Name | Priori | Date/Time | Associated Diagnosis | Comments | | | ty | | | | + +--------+ + + + | EXTERNAL LAB: JESS | Routin | 03/19/2018 | | Results for this | | | e | | | procedure are in the | | | | | | results section. | + +--------+ + + + | EXTERNAL LAB: | Routin | 03/19/2018 | | Results for this | | GLUCOSE | e | | | procedure are in the | | | | | | results section. | + +--------+ + + + | EXTERNAL LAB: ALT | Routin | 03/19/2018 | | Results for this | | | e | | | procedure are in the | | | | | | results section. | + +--------+ + + + | EXTERNAL LAB: AST | Routin | 03/19/2018 | | Results for this | | | e | | | procedure are in the | | | | | | results section. | + +--------+ + + + | EXTERNAL LAB: | Routin | 03/19/2018 | | Results for this | | ALKALINE PHOSPHATASE | e | | | procedure are in the | | | | | | results section. | + +--------+ + + + | EXTERNAL LAB: | Routin | 03/19/2018 | | Results for this | | BILIRUBIN, TOTAL | e | | | procedure are in the | | | | | | results section. | + +--------+ + + + | EXTERNAL LAB: | Routin | 03/19/2018 | | Results for this | | ALBUMIN | e | | | procedure are in the | | | | | | results section. | + +--------+ + + + | EXTERNAL LAB: | Routin | 03/19/2018 | | Results for this | | PROTEIN, TOTAL | e | | | procedure are in the | | | | | | results section. | + +--------+ + + + | EXTERNAL LAB: | Routin | 03/19/2018 | | Results for this | | CALCIUM | e | | | procedure are in the | | | | | | results section. | + +--------+ + + + | EXTERNAL LAB: CARBON | Routin | 03/19/2018 | | Results for this | | DIOXIDE | e | | | procedure are in the | | | | | | results section. | + +--------+ + + + | EXTERNAL LAB: | Routin | 03/19/2018 | | Results for this | | CHLORIDE | e | | | procedure are in the | | | | | | results section. | + +--------+ + + + | EXTERNAL LAB: | Routin | 03/19/2018 | | Results for this | | POTASSIUM | e | | | procedure are in the | | | | | | results section. | + +--------+ + + + | EXTERNAL LAB: SODIUM | Routin | 03/19/2018 | | Results for this | | | e | | | procedure are in the | | | | | | results section. | + +--------+ + + + | EXTERNAL LAB: | Routin | 03/19/2018 | | Results for this | | TRIGLYCERIDES | e | | | procedure are in the | | | | | | results section. | + +--------+ + + + | EXTERNAL LAB: | Routin | 03/19/2018 | | Results for this | | CHOLESTEROL, HDL | e | | | procedure are in the | | | | | | results section. | + +--------+ + + + | EXTERNAL LAB: | Routin | 03/19/2018 | | Results for this | | CHOLESTEROL, TOTAL | e | | | procedure are in the | | | | | | results section. | + +--------+ + + + | EXTERNAL LAB: EGFR | Routin | 03/19/2018 | | Results for this | | | e | | | procedure are in the | | | | | | results section. | + +--------+ + + + | LIPID PANEL | Routin | 03/19/2018 | | Results for this | | | e | | | procedure are in the | | | | | | results section. | + +--------+ + + + | COMPREHENSIVE | Routin | 03/19/2018 | | Results for this | | METABOLIC PANEL | e | | | procedure are in the | | | | | | results section. | + +--------+ + + + documented in this encounter Results Comprehensive Metabolic Panel (03/19/2018) + + + + + + | Component | Value | Ref Range | Performed | Pathologist | | | | | At | Signature | + + + + + + | Anion Gap | 18 | 9 - 18 mmol/L | | | + + + + + + | Bun/Creatin | 25.2 | 11.0 - 35.0 | | | | ine | | | | | + + + + + + | Creatinine | 1.70 (A) | 0.70 - 1.30 | | | + + + + + + + + | Specimen | + + | Blood | + + Lipid Panel (03/19/2018) + +-------+ + + + | Component | Value | Ref Range | Performed | Pathologist | | | | | At | Signature | + +-------+ + + + | LDL | 72.6 | <=100 mg/dL | | | | Cholesterol | | | | | + +-------+ + + + + + | Specimen | + + | Blood | + + External Lab: BUN (03/19/2018) + +--------+ + + + | Component | Value | Ref Range | Performed | Pathologist | | | | | At | Signature | + +--------+ + + + | BUN, | 42 (A) | 8 - 25 | | | | External | | | | | + +--------+ + + + External Lab: Glucose (03/19/2018) + +---------+ + + + | Component | Value | Ref Range | Performed | Pathologist | | | | | At | Signature | + +---------+ + + + | Glucose, | 153 (A) | 65 - 99 | | | | External | | | | | + +---------+ + + + External Lab: ALT (03/19/2018) + +-------+ + + + | Component | Value | Ref Range | Performed | Pathologist | | | | | At | Signature | + +-------+ + + + | ALT, | 16 | 0 - 41 | | | | External | | | | | + +-------+ + + + External Lab: AST (03/19/2018) + +-------+ + + + | Component | Value | Ref Range | Performed | Pathologist | | | | | At | Signature | + +-------+ + + + | AST, | 18.0 | 0 - 40 | | | | External | | | | | + +-------+ + + + External Lab: Alkaline Phosphatase (03/19/2018) + +-------+ + + + | Component | Value | Ref Range | Performed | Pathologist | | | | | At | Signature | + +-------+ + + + | ALP, | 120 | 40 - 129 | | | | External | | | | | + +-------+ + + + External Lab: Bilirubin, Total (03/19/2018) + +-------+ + + + | Component | Value | Ref Range | Performed | Pathologist | | | | | At | Signature | + +-------+ + + + | Bilirubin, | 0.6 | 0.1 - 1.5 | | | | Total, | | | | | | External | | | | | + +-------+ + + + External Lab: Albumin (03/19/2018) + +---------+ + + + | Component | Value | Ref Range | Performed | Pathologist | | | | | At | Signature | + +---------+ + + + | Albumin, | 3.4 (A) | 3.5 - 5.2 | | | | External | | | | | + +---------+ + + + External Lab: Protein, Total (03/19/2018) + +-------+ + + + | Component | Value | Ref Range | Performed | Pathologist | | | | | At | Signature | + +-------+ + + + | Protein, | 7.0 | 6.2 - 8.2 | | | | Total, | | | | | | External | | | | | + +-------+ + + + External Lab: Calcium (03/19/2018) + +-------+ + + + | Component | Value | Ref Range | Performed | Pathologist | | | | | At | Signature | + +-------+ + + + | Calcium, | 8.6 | 8.5 - 10.2 | | | | External | | | | | + +-------+ + + + External Lab: Carbon Dioxide (03/19/2018) + +-------+ + + + | Component | Value | Ref Range | Performed | Pathologist | | | | | At | Signature | + +-------+ + + + | Carbon | 24 | 22 - 29 | | | | Dioxide, | | | | | | External | | | | | + +-------+ + + + External Lab: Chloride (03/19/2018) + +-------+ + + + | Component | Value | Ref Range | Performed | Pathologist | | | | | At | Signature | + +-------+ + + + | Chloride, | 104 | 97 - 107 | | | | External | | | | | + +-------+ + + + External Lab: Potassium (03/19/2018) + +-------+ + + + | Component | Value | Ref Range | Performed | Pathologist | | | | | At | Signature | + +-------+ + + + | Potassium, | 5.3 | 3.5 - 5.3 | | | | External | | | | | + +-------+ + + + External Lab: Sodium (03/19/2018) + +-------+ + + + | Component | Value | Ref Range | Performed | Pathologist | | | | | At | Signature | + +-------+ + + + | Sodium, | 141 | 135 - 145 | | | | External | | | | | + +-------+ + + + External Lab: Triglycerides (03/19/2018) + +-------+ + + + | Component | Value | Ref Range | Performed | Pathologist | | | | | At | Signature | + +-------+ + + + | Triglycerid | 132 | | | | | es, | | | | | | External | | | | | + +-------+ + + + + + | Specimen | + + | Blood | + + External Lab: Cholesterol, HDL (03/19/2018) + +-------+ + + + | Component | Value | Ref Range | Performed | Pathologist | | | | | At | Signature | + +-------+ + + + | HDL | 50 | mg/dl | | | | Cholesterol | | | | | | , External | | | | | + +-------+ + + + + + | Specimen | + + | Blood | + + External Lab: Cholesterol, Total (03/19/2018) + +-------+ + + + | Component | Value | Ref Range | Performed | Pathologist | | | | | At | Signature | + +-------+ + + + | Cholesterol | 149 | mg/dl | | | | , Total, | | | | | | External | | | | | + +-------+ + + + + + | Specimen | + + | Blood | + + External Lab: eGFR (03/19/2018) + +-------+ + + + | Component | Value | Ref Range | Performed | Pathologist | | | | | At | Signature | + +-------+ + + + | eGFR, | 32 | | | | | External | | | | | + +-------+ + + + + + | Specimen | + + | Blood | + + documented in this encounter Visit Diagnoses Not on filedocumented in this encounter"
--- OUTSIDE RECORDS SUMMARY | ~2019-07-23 | XMS | Encounter Summary ---
Demographics + + + | Address | [address] | | | [place] [address] | + + + | Home Phone | | + + + | Preferred Language | Unknown | + + + | Marital Status | | + + + | Orthodox Affiliation | 1041 | + + + | Race | Unknown | + + + | Ethnic Group | Unknown | + + + Author + + + | Author | [facility] | | | and [place] | + + + | Organization | [facility] | | | [...] Team Providers + +------+ + | Care Nursing Education Consultant Name | Role | Phone | + +------+ + | Bernadette Armendariz PA-C | PCP | | + +------+ + Encounter Details +--------+ + + + + | Date | Type | Department | Care Team | Description | +--------+ + + + + | 03/11/ | Orders Only | [facility] | James Pearce MD | Essential (primary) | | 2019 | | NEPHROLOGY [place] | [address] [place] | hypertension | | | | [address] [place] | [address] [place], [place] | (Primary Dx); CKD | | | | [address] [place], [place] | [address] | (chronic kidney | | | | [address] | | disease), stage IV | | | | [phone] | | (HCC); Nephrotic | | | | | | [...] 2019 | Visit | | [address] [facility] | | | | | | [address] [place], [place] | | | | | | [address] | | | | | | | | +--------+---------+ + + + documented as of this encounter Visit Diagnoses + + | Diagnosis | + + | Essential (primary) hypertension - Primary Unspecified essential hypertension | + + | CKD (chronic kidney disease), stage IV (HCC) Chronic kidney disease, Stage IV | | (severe) | + + | Nephrotic range proteinuria Proteinuria | + + | Secondary hyperparathyroidism (HCC) Secondary hyperparathyroidism (of renal origin) | + + | Vitamin D deficiency Unspecified vitamin D deficiency | + + documented in this encounter"
--- OUTSIDE RECORDS SUMMARY | ~2019-07-23 | XMS | Clinical Summary ---
Demographics + + + | Address | [address] | | | [place] [address] | + + + | Home Phone | | + + + | Preferred Language | Unknown | + + + | Marital Status | | + + + | Religion Affiliation | 1041 | + + + | Race | Unknown | + + + | Ethnic Group | Unknown | + + + Author + + + | Author | [facility] | | | and [place] | + + + | Organization | [facility] | | | [...] Team Providers + +------+ + | Care Bale Coverer Name | Role | Phone | + [...] + + | Overview: Echocardiogram done at [facility] on 01/28/18 | | shows overall left [...] Suarez | | | | | | Shrimp P[employer] Laborer | | +--------+ + + + + [...] IV | | | | | | ([facility]) (Primary Dx); | | | | | | Anemia of chronic | | | | | | renal failure, stage | | | | | | 4 (severe) ([facility]); | | | | | | [...] insulin | | | | | | ([facility]); Secondary | | | | | | hyperparathyroidism | | | | | | ([facility]); Nephrotic | | | | | [...] | | | | | | (severe) ([facility]); CKD | | | | | | (chronic kidney | | | | | | disease), stage IV | | | | | | ([facility]); Nephrotic | | | | | | range proteinuria | +--------+ + + + + | 06/22/ | Documentati | Nephrology | Smith, | Results (06/17/19) | | 2019 | on | | [facility] | | | | | | [employer] | | +--------+ + + + + [...] 2020 | Visit | | [address] [facility] | | | | | | [address] [place] | | | | | | [address] | | | | | | | [...] | [employer] | [employer] | [id number] | 01/28/20 | [phone] | | Medica | | MEDICAID HMO | HEALTH | | 18-Pre | 1 | | id | | | MDCD | | sent | | | | | | [place]MO [place] | | | | | | + +--------+ +--------+ +---------+--------+ | [employer] [facility] | IHS | [id number] | | | | Indemn | | SERVICE | YELLOW | | 018-Pr | | | ity | | | HAWK | | esent | | | | + +--------+ +--------+ +---------+--------+ | [employer] | [employer] | [id number] | 02/23/20 | [phone] | | Medica | | MEDICAID HMO | HEALTH | | 19-Pre | 1 | | id | | | MDCD | | sent | | | | | | [place]MO [place] | | | | | | + +--------+ +--------+ +---------+--------+ | [employer] | IHS | [id number] | | | | Indemn | | [...] Person | Self | [birth year] | [address] | | | al/Fam | | 1955 | [phone] | [address] [place] | | | jeni | | | 4 (Home) | [address] | + +--------+ +--------+ + + | MarioMaria Ines Hunt | Person | Self | [birth year] | [address] | | | al/Fam | | 1955 | [phone] | [address] [place] | | | jeni | | | 2 (Home) | [address] | + +--------+ +--------+ + + Advance Directives + + + + + | Type | Date Recorded | Patient | Explanation | | | | Head Of English | | + + + + + | Power of | | | | | Fire Claims Adjuster | | | | + + + + + | Advance | | | | | Directive | | | | + + + + +
--- OUTSIDE RECORDS SUMMARY | ~2019-07-23 | XMS | Encounter Summary ---
Demographics + + + | Address | [address] | | | [place] [address] | + + + | Home Phone | | + + + | Preferred Language | Unknown | + + + | Marital Status | | + + + | Shinto Affiliation | 1041 | + + + | Race | Unknown | + + + | Ethnic Group | Unknown | + + + Author + + + | Author | [facility] | | | and [place] | + + + | Organization | [facility] | | | [...] Team Providers + +------+ + | Care Anesthetist Name | Role | Phone | + +------+ + | Nathalie Castorena | PCP | | + +------+ + Encounter Details +--------+ + + + + | Date | Type | Department | Care Team | Description | +--------+ + + + + | 03/10/ | Orders Only | [facility] | James Pearce MD | | | 2018 | | NEPHROLOGY [place] | [address] [place] | | | | | [address] [place] | [address] [place], [place] | | | | | [address] [place], [place] | [address] | | | | | [address] | | | | | | [phone] | | | +--------+ + + + [...] 2020 | Visit | | [address] [facility] | | | | | | [address] [place] | | | | | | [address] | | | | | | | | +--------+---------+ + + + documented as of this encounter Visit Diagnoses Not on filedocumented in this encounter"
--- OUTSIDE RECORDS SUMMARY | ~2019-07-23 | XMS | Encounter Summary ---
Demographics + + + | Address | [address] | | | [place] [address] | + + + | Home Phone | | + + + | Preferred Language | Unknown | + + + | Marital Status | | + + + | Yarsanism Affiliation | 1041 | + + + | Race | Unknown | + + + | Ethnic Group | Unknown | + + + Author + + + | Author | [facility] | | | and [place] | + + + | Organization | [facility] | | | [...] Team Providers + +------+ + | Care Crosscutter Rolled Glass Name | Role | Phone | + [...] [address] | | | | | [place], [place] | [address] | | | | | [address] | | | | | | [phone] | | | +--------+ + + + [...] | [address] [facility] | | | | | | [address] [place] | | | | | | [address] | | | | | | | [...] MV A Brock: 0.82 m/s MV Dec Larue: 7.33 | | | m/s2 MV DecT: [...] | | | TR Vmax: 3.14 m/s Solar Sales Associate: ZORA Authenticated by: | | | TAMARA MAHONEY MD Report Date/Time: 01-28-2018 18:52:56 | | + + + + + | Procedure Note | + + | [place], Rad Conversion - 03/12/2019 5:38 PM PDT [...] cmLVIDd: 5.42 cmLVPWd: 0.88 cmLVOT Area: 3.30 [id number] Diam: | | 2.05 cm%FS: 19.68 %EF(Teich): [...] (A-L): 25.38 ml/m2LAAs | | A2C: 14.99 [id number] A-L A2C: 42.95 mlLALs A2C: 4.44 cmLAAs A4C: 15.41 [id number] | | A-L A4C: 43.34 mlLALs A4C: 4.65 cmRAAs: 12.68 [id number] A-L: 35.28 mlRAESV MOD: | | 33.87 mlRALs: 3.87 cmTAPSE: 1.84 cmAV maxP.42 mmHgAV meanP.69 mmHgAV | | Vmax: 1.36 m/John Vmean: 0.90 m/John VTI: 23.16 cmAVA Vmax: 2.43 cm2AVA (VTI): | | 2.55 [id number] (Vmax): 0.00 cm2/m2AVAI (VTI): 0.00 cm2/m2LVOT maxP.01 mmHgLVOT | | meanP.12 mmHgLVSI Dopp: 34.03 ml/m2LVSV Dopp: 59.22 mlLVOT Vmax: 1.00 | | m/sLVOT Vmean: 0.69 m/sLVOT VTI: 17.90 cmMV A Brock: 0.82 m/sMV Dec Larue: 7.33 | | m/s2MV DecT: 140.20 msMV E Brock: 1.02 m/sMV E/A Ratio: 1.25MV PHT: 40.65 msMVA By | | PHT: 5.41 im4Ebmnyf e': 0.03 m/sSeptal E/e': 29.00Lateral e': 0.04 m/sLateral | | E/e': 24.10RAP: 10 mmHgRVSP: 49.46 mmHgTR maxP.46 mmHgTR Vmax: 3.14 m/s | | Solar Sales Associate: ZORAAuthenticated by: Kiko BUTLER Date/Time: 01-28-2018 18:52:56 [...] A Brock: 0.82 m/s | |MV Dec Larue: 7.33 m/s2 | |MV DecT: 140.20 ms [...] |TR Vmax: 3.14 m/s | | | |Solar Sales Associate: DBS | |Authenticated by: TAMARA MAHONEY MD [...]
--- OUTSIDE RECORDS SUMMARY | ~2019-07-23 | XMS | Encounter Summary ---
Demographics + + + | Address | [address] | | | [place] [address] | + + + | Home Phone | | + + + | Preferred Language | Unknown | + + + | Marital Status | | + + + | Cheondoism Affiliation | 1041 | + + + | Race | Unknown | + + + | Ethnic Group | Unknown | + + + Author + + + | Author | [facility] | | | and [place] | + + + | Organization | [facility] | | | [...] | | + + +---------+ + | Brayn Martin | ECON | Unknown | | + + +---------+ + Care Team Providers + +------+ + | Care Eeg Technician Name | Role | Phone | + +------+ + | Bernadette Armendariz PA-C | PCP | | + +------+ + Encounter Details +--------+ + + + + | Date | Type | Department | Care Team | Description | +--------+ + + + + | 02/17/ | Abstract | [facility] | Сергей Gaitan | Congestive heart | | 2018 | | CARDIOLOGY [address] | MD [address] | failure, unspecified | | | | [place], | [address] [place] | HF chronicity, | | | | [place] [address] | [place] [address] | unspecified heart | | | | [phone] | [phone] | failure type (HCC) | | | [...] 2020 | Visit | | [address] [facility] | | | | | | [address] [facility] | | | | | | [address] | | | | | | | [...] | | TROPONIN T | e | | | procedure are [...] | EXTERNAL LAB: CBC | Routin | 01/31/2018 | | Results for this | | | e | | | procedure are in the | | | | | | results section. | + +--------+ + + + | EXTERNAL LAB: [place] TYPE | Routin | 01/31/2018 | | Results for this | | NATURETIC PEPTIDE | e | | | procedure are [...] this | | DIFFERENTIAL | e | | | procedure are [...] | | TROPONIN T | e | | | procedure are [...] this | | DIFFERENTIAL | e | | | procedure are [...] + documented in this encounter Results CBC with Differential (01/31/2018) + +-------+ + + + | Component | Value | Ref Range | Performed | Pathologist | | | | | At | Signature | + +-------+ + + + | MCH | 26.0 | 26.0 - 33.0 pg | | | + +-------+ + + + | MCHC | 33.0 | 30.0 - 36.0 % | | | + +-------+ + + + | % Basophils | 0.3 | 1.0 % | | | + +-------+ + + + + + | Specimen | + + | Blood | + + Comprehensive Metabolic Panel (01/31/2018) + +-------+ + + + | Component | Value | Ref Range | Performed | Pathologist | | | | | At | Signature | + +-------+ + + + | Anion Gap | 11 | mmol/L | | | + +-------+ + + + | Albumin/Coral | 0.5 | | | | | bulin Ratio | | | | | + +-------+ + + + | Bun/Creatin | 24.4 | | | | | ine | | | | | + +-------+ + + + | Globulin | 4.9 | | | | + +-------+ + + + + + | Specimen | + + | Blood | + + External Lab: Glucose (01/31/2018) + +-------+ + + + | Component | Value | Ref Range | Performed | Pathologist | | | | | At | Signature | + +-------+ + + + | Glucose, | 149 | | | | | External | | | | | + +-------+ + + + External Lab: Troponin T (01/31/2018) + +--------+ + + + | Component | Value | Ref Range | Performed | Pathologist | | | | | At | Signature | + +--------+ + + + | Troponin T, | <0.010 | | | | | External | | | | | + +--------+ + + + External Lab: ALT (01/31/2018) + +-------+ + + + | Component | Value | Ref Range | Performed | Pathologist | | | | | At | Signature | + +-------+ + + + | ALT, | 9 | | | | | External | | | | | + +-------+ + + + External Lab: AST (01/31/2018) + +-------+ + + + | Component | Value | Ref Range | Performed | Pathologist | | | | | At | Signature | + +-------+ + + + | AST, | 16 | | | | | External | | | | | + +-------+ + + + External Lab: Alkaline Phosphatase (01/31/2018) + +-------+ + + + | Component | Value | Ref Range | Performed | Pathologist | | | | | At | Signature | + +-------+ + + + | ALP, | 99 | | | | | External | | | | | + +-------+ + + + External Lab: Bilirubin, Total (01/31/2018) + +-------+ + + + | Component | Value | Ref Range | Performed | Pathologist | | | | | At | Signature | + +-------+ + + + | Bilirubin, | 0.3 | | | | | Total, | | | | | | External | | | | | + +-------+ + + + External Lab: Albumin (01/31/2018) + +-------+ + + + | Component | Value | Ref Range | Performed | Pathologist | | | | | At | Signature | + +-------+ + + + | Albumin, | 2.6 | | | | | External | | | | | + +-------+ + + + External Lab: Protein, Total (01/31/2018) + +-------+ + + + | Component | Value | Ref Range | Performed | Pathologist | | | | | At | Signature | + +-------+ + + + | Protein, | 7.5 | | | | | Total, | | | | | | External | | | | | + +-------+ + + + External Lab: Calcium (01/31/2018) + +-------+ + + + | Component | Value | Ref Range | Performed | Pathologist | | | | | At | Signature | + +-------+ + + + | Calcium, | 8.5 | | | | | External | | | | | + +-------+ + + + External Lab: CBC (01/31/2018) + +-------+ + + + | Component | Value | Ref Range | Performed | Pathologist | | | | | At | Signature | + +-------+ + + + | Neutrophils | 64.5 | | | | | %, | | | | | | External | | | | | + +-------+ + + + | Lymphocytes | 27.1 | | | | | %, | | | | | | External | | | | | + +-------+ + + + | Monocytes | 4.8 | | | | | %, External | | | | | + +-------+ + + + | Eosinophils | 3.3 | | | | | %, | | | | | | External | | | | | + +-------+ + + + | RBC, | 4.35 | | | | | External | | | | | + +-------+ + + + | MCV, | 81 | | | | | External | | | | | + +-------+ + + + | RDW, | 14.1 | | | | | External | | | | | + +-------+ + + + External Lab: B Type Naturetic Peptide (01/31/2018) + +-------+ + + + | Component | Value | Ref Range | Performed | Pathologist | | | | | At | Signature | + +-------+ + + + | B-Type | 1,530 | | | | | Naturetic | | | | | | Peptide, | | | | | | External | | | | | + +-------+ + + + + + | Specimen | + + | Blood | + + External Lab: eGFR (01/31/2018) + +-------+ + + + | Component | Value | Ref Range | Performed | Pathologist | | | | | At | Signature | + +-------+ + + + | eGFR, | 46 | | | | | External | | | | | + +-------+ + + + + + | Specimen | + + | Blood | + + CBC with Differential (01/27/2018) + +-------+ + + + | Component | Value | Ref Range | Performed | Pathologist | | | | | At | Signature | + +-------+ + + + | MCH | 27.0 | 26.0 - 33.0 pg | | | + +-------+ + + + | MCHC | 33.0 | 30.0 - 36.0 % | | | + +-------+ + + + | % Basophils | 0.3 | 1.0 % | | | + +-------+ + + + + + | Specimen | + + | Blood | + + Comprehensive Metabolic Panel (01/27/2018) + +-------+ + + + | Component | Value | Ref Range | Performed | Pathologist | | | | | At | Signature | + +-------+ + + + | Anion Gap | 12 | mmol/L | | | + +-------+ + + + | Bun/Creatin | 17.7 | | | | | ine | | | | | + +-------+ + + + | Globulin | 4.7 | | | | + +-------+ + + + | Albumin/Coral | 0.5 | | | | | bulin Ratio | | | | | + +-------+ + + + + + | Specimen | + + | Blood | + + External Lab: Glucose (01/27/2018) + +-------+ + + + | Component | Value | Ref Range | Performed | Pathologist | | | | | At | Signature | + +-------+ + + + | Glucose, | 241 | | | | | External | | | | | + +-------+ + + + External Lab: Troponin T (01/27/2018) + +--------+ + + + | Component | Value | Ref Range | Performed | Pathologist | | | | | At | Signature | + +--------+ + + + | Troponin T, | <0.010 | | | | | External | | | | | + +--------+ + + + External Lab: ALT (01/27/2018) + +-------+ + + + | Component | Value | Ref Range | Performed | Pathologist | | | | | At | Signature | + +-------+ + + + | ALT, | 8 | | | | | External | | | | | + +-------+ + + + External Lab: AST (01/27/2018) + +-------+ + + + | Component | Value | Ref Range | Performed | Pathologist | | | | | At | Signature | + +-------+ + + + | AST, | 10 | | | | | External | | | | | + +-------+ + + + External Lab: Alkaline Phosphatase (01/27/2018) + +-------+ + + + | Component | Value | Ref Range | Performed | Pathologist | | | | | At | Signature | + +-------+ + + + | ALP, | 109 | | | | | External | | | | | + +-------+ + + + External Lab: Bilirubin, Total (01/27/2018) + +-------+ + + + | Component | Value | Ref Range | Performed | Pathologist | | | | | At | Signature | + +-------+ + + + | Bilirubin, | 0.2 | | | | | Total, | | | | | | External | | | | | + +-------+ + + + External Lab: Albumin (01/27/2018) + +-------+ + + + | Component | Value | Ref Range | Performed | Pathologist | | | | | At | Signature | + +-------+ + + + | Albumin, | 2.5 | | | | | External | | | | | + +-------+ + + + External Lab: Protein, Total (01/27/2018) + +-------+ + + + | Component | Value | Ref Range | Performed | Pathologist | | | | | At | Signature | + +-------+ + + + | Protein, | 7.2 | | | | | Total, | | | | | | External | | | | | + +-------+ + + + External Lab: Calcium (01/27/2018) + +-------+ + + + | Component | Value | Ref Range | Performed | Pathologist | | | | | At | Signature | + +-------+ + + + | Calcium, | 8 | | | | | External | | | | | + +-------+ + + + External Lab: CBC (01/27/2018) + +-------+ + + + | Component | Value | Ref Range | Performed | Pathologist | | | | | At | Signature | + +-------+ + + + | Neutrophils | 61.8 | | | | | %, | | | | | | External | | | | | + +-------+ + + + | Lymphocytes | 28.9 | | | | | %, | | | | | | External | | | | | + +-------+ + + + | Monocytes | 5.0 | | | | | %, External | | | | | + +-------+ + + + | Eosinophils | 4.0 | | | | | %, | | | | | | External | | | | | + +-------+ + + + | RBC, | 3.77 | | | | | External | | | | | + +-------+ + + + | MCV, | 81 | | | | | External | | | | | + +-------+ + + + | RDW, | 13.8 | | | | | External | | | | | + +-------+ + + + External Lab: eGFR (01/27/2018) + +-------+ + + + | Component | Value | Ref Range | Performed | Pathologist | | | | | At | Signature | + +-------+ + + + | eGFR, | 42 | | | | | External | | | | | + +-------+ + + + + + | Specimen | + + | Blood | + + documented in this encounter Visit Diagnoses + + | Diagnosis | + + | Congestive heart failure, unspecified HF chronicity, unspecified heart failure type | | (HCC) | + + documented in this encounter"
--- OUTSIDE RECORDS SUMMARY | ~2019-07-23 | XMS | Encounter Summary ---
Demographics + + + | Address | [address] | | | [place] [address] | + + + | Home Phone [...] Team Providers + +------+ + | Care Bi Specialist Name | Role | Phone | [...] | | | | | | [place] [address] | | | | | | [phone] | | | +--------+ + + + [...] | [facility] | | [address] [facility] | | | | | | [address] [place], [place] | | | | | | [address] | | | | | | | | +--------+---------+ + + + documented as of this encounter Visit Diagnoses Not on filedocumented in this encounter"
--- OUTSIDE RECORDS SUMMARY | ~2019-07-23 | XMS | Encounter Summary ---
Demographics + + + | Address | [address] | | | [place] [address] | + + + | Home Phone [...] Team Providers + +------+ + | Care Registration Manager Name | Role | Phone | + +------+ + | Bernadette Armendariz PA-C | PCP | | + +------+ + Encounter Details +--------+ + + + + | Date | Type | Department | Care Team | Description | +--------+ + + + + | 03/16/ | Orders Only | [facility] | James Pearce MD | Essential (primary) | | 2019 | | NEPRHOLOGY [place] | [address] [place] | hypertension; Type 2 | | | | [address] | [address] [place], [place] | diabetes mellitus | | | | [address] [place], [place] | [address] | with complications | | | | [address] | | (HCC); Acute kidney | | | | [phone] | | failure (HCC) | +--------+ + [...] 2019 | Visit | | [address] [facility] | | | | | | [address] [place], [place] | | | | | | [address] | | | | | | | [...]
--- OUTSIDE RECORDS SUMMARY | ~2019-07-23 | XMS | Encounter Summary ---
Demographics + + + | Address | [address] | | | [place] [address] | + + + | Home Phone | | + + + | Preferred Language | Unknown | + + + | Marital Status | | + + + | Moravian Affiliation | 1041 | + + + | Race | Unknown | + + + | Ethnic Group | Unknown | + + + Author + + + | Author | [facility] | | | and [place] | + + + | Organization | [facility] | | [...] Providers + +------+ + | Care Manager Web Name | Role | Phone | + +------+ + | Bernadette Armendariz PA-C | PCP | | + +------+ + Encounter Details +--------+ + + + + | Date | Type | Department | Care Team | Description | +--------+ + + + + | 08/05/ | Hospital | [facility] | Conversion | CAD in [place] | | 2019 - | Encounter | [facility] | Transaction, | artery; Congestive | | | | CARE FLOOR [address] | Provider Unknown | heart failure, | | | | [address] | [phone] | unspecified HF | | 2019 | | [place], [place] | | chronicity, | | | | [address] | Brynn Crawford MD | unspecified heart | | | | [phone] | [address] | failure type (HCC); | | | | | [place] [address] | Precordial pain; | | | | | [phone] | Ischemic | | | | | [...] 08/11/181929 Date of Service: 08/10/18941 Status: Signed Tufting Machine Fixer: Gustavo Castorena MD (Physician) [facility] Service: Hospitalist Physician Discharge Summary [...] Invalid input(s): ABG Disposition: HOME Follow up: [facility] [address] [place] [address] [place] [address] Schedule an appointment as soon as possible [...] 1558 Date of Service: 08/11/181499 Status: Signed Tufting Machine Fixer: Cinthya Carmen RN (Registered Nurse) Pt discharge home with family. Pt states understanding about scripts and paperwork. IV d/c. Tele d/c. Family to transport pt home. onver federico Transaction, Provider Unknown - 08/11/2018 12:50 PM PST Case Management by Damaris Canchola RN at 08/11/181249 Author: Damaris Canchola RN Service: (none) Author Type: Registered Nurse Filed: 08/11/181249 Date of Service: 08/11/181249 Status: Signed Tufting Machine Fixer: Damaris Canchola RN (Registered Nurse) Met with [...] Date of Service: 08/11/18 1045 Status: Signed Tufting Machine Fixer: Shin Rivera MD (Physician) PCP : [facility] LOS: 5 days Maria Ines Martin [...] was completed later after rounds. Dictation software, [employer], was used which may contain error for [...] 08/11/18615 Date of Service: 08/11/18614 Status: Signed Tufting Machine Fixer: Francy Beckford RN (Registered Nurse) VSS. Patient [...] 08/10/181751 Date of Service: 08/10/181747 Status: Signed Tufting Machine Fixer: Kaia Penaloza RN (Registered Nurse) Pt down [...] 1:16 PM PST Progress Notes by Teena Encinsa RD at 08/10/18 1006 Author: Teena Encinas RD Service: (none) Author Type: Registered Dietitian Filed: 08/10/18 6992 Date of Service: 08/10/186 Status: Signed Tufting Machine Fixer: Teena Encinas RD (Registered Dietitian) 08/10/18 7616 Subjective Timepoint Follow up (diet education) Food and Nutrition Knowledge Area(s) and Level of Knowledge In to see pt for renal cardiac diet. Pt K+ WNL at this time but hx hyperkalemia. Discussed high potassium foods and provided list from [facility]. Discussed th at she does not need to limit at this time with ARF and WNL K+ but may need to in the future . Provided low sodium handout from [facility] and discussed. Pt reports that she is [...] Date of Service: 08/10/18 1209 Status: Signed Tufting Machine Fixer: Shin Rivera MD (Physician) PCP : [facility] LOS: 4 days Maria Ines Martin [...] was completed later after rounds. Dictation software, [employer], was used which may contain error for [...] 0957 Date of Service: 08/10/18951 Status: Signed Tufting Machine Fixer: Gustavo Castorena MD (Physician) [facility] Service: Hospitalist Progress Note Hospital Day: LOS: 4 days SUBJECTIVE Still c/o back pain. 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 Maria Ines Martin is a [...] and management as well as Computerized Physician Job Spotter. Disposition: Home ? Code Status: Full Code Gustavo Castorena MD 08/10/2018 9:57 AM onversion Transactio n, Provider Unknown - 08/10/2018 6:23 AM PST Nurse Progress Note by Francy Beckford RN at 08/10/18622 Author: Francy Beckford RN Service: (none) Author Type: Registered Nurse Filed: 08/10/18627 Date of Service: 08/10/18622 Status: Signed Tufting Machine Fixer: Francy Beckford RN (Registered Nurse) VSS. Pt [...] 5:50 PM PST Nurse Progress Note by Kaai Penaloza RN at 08/09/181749 Author: Kaia Penaloza RN Service: (none) Author Type: Registered Nurse Filed: 08/09/181751 Date of Service: 08/09/181749 Status: Signed Tufting Machine Fixer: Kaia Penaloza RN (Registered Nurse) VSS today. [...] Notes by Shin Rivera MD at 08/09/18 2552 Author: Shin Rivera MD Service: Nephrology Author Type: Physician Filed: 08/10/18 0751 Date of Service: 08/09/181747 Status: Signed Tufting Machine Fixer: Shin Rivera MD (Physician) PCP : [facility] LOS: 3 days Maria Ines Martin [...] outpatient follow up with Dr. Pearce in [place]. Strict low K diet. Diet 2 gm [...] was completed later after rounds. Dictation software, [employer], was used which may contain error for [...] 1421 Date of Service: 08/09/181415 Status: Signed Tufting Machine Fixer: Gustavo Castorena MD (Physician) [facility] Service: Hospitalist Progress Note Hospital [...] 08/06/2018 9:09 AM PROBLEM LIST Principal Problem: RGACIELA (acute kidney injury) (HCC) Active Problems: Ischemic [...] and management as well as Computerized Physician Job Spotter. Disposition: Home ? Code Status: Full Code Gustavo Castorena MD 08/09/2018 2:16 PM onversion Transactio n, Provider Unknown - 08/09/2018 6:26 AM PST Nurse Progress Note by Francy Beckford RN at 08/09/18 5614 Author: Francy Beckford RN Service: (none) Author Type: Registered Nurse Filed: 08/09/18 5531 Date of Service: 08/09/18625 Status: Signed Tufting Machine Fixer: Francy Beckford RN (Registered Nurse) Patient complained [...] 08/08/182000 Date of Service: 08/08/182000 Status: Signed Tufting Machine Fixer: Nimo Heredia RN (Registered Nurse) No significant [...] Date of Service: 08/08/18 164 Status: Signed Tufting Machine Fixer: Brynn Crawford MD (Physician) [facility] Service: Cardiology/[facility] Progress Note RE: Maria Ines [...] Mild mitral regurgitation is present. Scores: 1. [id number] Score: 3 2. [place] Islander Anginal Score: 3 3. NYHA Score: 2 [...] 1541 Date of Service: 08/08/181535 Status: Signed Tufting Machine Fixer: Damaris Canchola RN (Registered Nurse) Tc from [facility]([phone]), CM with [facility] re d/c plan, infor med that d/c date is still unknown. [facility] transport dept, states they dont provide transportation on wknds, but would need to call [facility] for [place] transport call . If [facility] is not able to provide transportation, need to ask family or pay for taxi. Kathe Gustavo Lara MD - 08/08/2018 2:53 PM PSTFormatting of this note might be different from the or iginal. Progress Notes by Gustavo Castorena MD at 08/08/18 3377 Author: Gustavo Castorena MD Service: Internal Medicine Author Type: Physician Filed: 08/08/181456 Date of Service: 08/08/181452 Status: Signed Tufting Machine Fixer: Gustavo Castorena MD (Physician) [facility] Service: Hospitalist Progress Note Hospital [...] LIST Principal Problem: GRACIELA (acute kidney injury) ([facility]) Active Problems: Ischemic cardiomyopathy Chronic systolic heart failure (HCC) Hyperkalemia Essential hypertension Type 2 diabetes mellitus with complication, with long-term current use of insulin ([facility]) ASSESSMENT / PLAN Heart failure reduced ejection [...] and management as well as Computerized Physician Job Spotter. Disposition: Home ? Code Status: Full Code Gustavo Castorena MD 08/08/2018 2:53 PM Sihn Vale MD - 08/08/2018 11:26 AM PST Progress Notes by Shin Rivera MD at 08/08/18 1126 Author: Shin Rivera MD Service: Nephrology Author Type: Physician Filed: 08/10/18 1223 Date of Service: 08/08/18 1126 Status: Signed Tufting Machine Fixer: Shin Rivera MD (Physician) PCP : [facility] LOS: 2 days Maria Ines Martin [...] was completed later after rounds. Dictation software, [employer], was used which may contain error for similar sounding words nabor jackman after review. Personal communication is requested for any clarification. 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 amLODIPine 7.5 mg Oral Daily [...] 0700 Date of Service: 08/08/1859 Status: Signed Tufting Machine Fixer: Little Infante RN (Registered Nurse) Pt had [...] 08/07/182005 Date of Service: 08/07/182005 Status: Signed Tufting Machine Fixer: Nimo Heredia RN (Registered Nurse) No significant [...] Management by Damaris Canchola RN at 08/07/18 2403 Author: Damaris Canchola RN Service: (none) Author Type: Registered Nurse Filed: 08/07/18 1202 Date of Service: 08/07/18 1156 Status: Signed Tufting Machine Fixer: Damaris Canchola RN (Registered Nurse) Tc to Kathrin([phone]), CM with [facility] re d/c plan, LMTCB Per pt, wants CM to call [facility] transportation modeler re transport back [phone]. Per [place], for wknd medicaid transport call Kathe onver federico Transaction, Provider Unknown - 08/07/2018 11:47 AM PST Case Management by Damaris Canchola RN at 08/07/18 1147 Author: Damaris Canchola RN Service: (none) Author Type: Registered Nurse Filed: 08/07/18 1149 Date of Service: 08/07/18 1147 Status: Signed Tufting Machine Fixer: Damaris Canchola RN (Registered Nurse) 08/07/18 1100 [...] with spouse and child(disabled chi ld) in [place]. Pt states she is indep with all her adl's, but does use a cane if needed f or outdoors as she has vision deficits.no home o2, no anticoagulants, no HD. Plans to return home Patient's PCP is: [facility] Patient's [facility] Coverage concerns: Medication coverage/concerns: Rx Bedside [...] 1058 Date of Service: 08/07/181049 Status: Signed Tufting Machine Fixer: Gustavo Castorena MD (Physician) [facility] Service: Hospitalist Progress Note Hospital [...] and management as well as Computerized Physician Job Spotter. Disposition: Home ? Code Status: Full Code Gustavo Castorena MD 08/07/2018 10:50 AM Brynn Hanna MD - 8:47 AM PST Progress Notes by Brynn Crawford MD at 08/07/18 5652 Author: Brynn Crawford MD Service: Cardiology Author Type: Physician Filed: 08/07/18 0914 Date of Service: 08/07/18 0847 Status: Signed Tufting Machine Fixer: Brynn Crawford MD (Physician) [facility] Service: Cardiology/[facility] Progress Note RE: Maria Ines [...] Mild mitral regurgitation is present. Scores: 1. [id number] Score: 2. [place] Islander Anginal Score: 3. NYHA Score: ASSESSMENT: 1. [...] her [facility] better [facility] fraction than what it was reported [facility] at [facility]. Regardless with her history of chest discomforts [...] 08/07/18626 Date of Service: 08/07/18625 Status: Signed Tufting Machine Fixer: Agustina Cade RN (Registered Nurse) End of shift audit complete. AGUSTINA CADE RN onver federico Transaction, Provider Unknown - 08/06/2018 5:18 PM PST Nurse Progress Note by Jacquie Miranda RN at 08/06/181717 Author: Jacquie Miranda RN Service: (none) Author Type: Registered Nurse Filed: 08/06/181718 Date of Service: 08/06/181717 Status: Signed Tufting Machine Fixer: Jacquie Miranda RN (Registered Nurse) End of shift chart check completed Gustavo Lara MD - 08/06/2018 1:52 PM PSTFormatting of this note might be different from the or iginal. Progress Notes by Gustavo Castorena MD at 08/06/18 219 Author: Gustavo Castorena MD Service: Internal Medicine Author Type: Physician Filed: 08/06/18 1355 Date of Service: 08/06/18 540 Status: Signed Tufting Machine Fixer: Gustavo Castorena MD (Physician) [facility] Service: Hospitalist Progress Note Hospital [...] and management as well as Computerized Physician Job Spotter. Disposition: Home ? Code Status: Full Code Gustavo Castorena MD 08/06/2018 1:55 PM onversion Transactio n, Provider Unknown - 08/06/2018 12:04 PM PST Progress Notes by Anjali Kerr RD at 08/06/18 1204 Author: Anjali Kerr RD Service: (none) Author Type: Registered Dietitian Filed: 08/06/18 120 Date of Service: 08/06/18 120 Status: Signed Tufting Machine Fixer: Anjali Kerr RD (Registered Dietitian) 08/06/18 2422 Subjective Timepoint Admit Pt c/o Pt triggered for dysphagia. Pt admitted for acute renal failure. Reported by Patient Diet Experience Self-selected diet(s) followed Pt reports she was eating all kinds of foods [place]. Pt went ov er her hx of [...] any concerns for dysphag ia consider ordering CHAIR UPHOLSTERER eval. Anthropometrics Weight change Pt's BMI is 34 and pt is 166% of IBW. Pt reports she has gained wt over the p ast 4 months after stopping meth. Biochemical data, medical tests, and procedures reviewed Biochemical data, medical tests, and procedures reviewed Labs reviewed. Recommendations Recommended energy needs Continue diet as ordered with modications per CHAIR UPHOLSTERER, if needed. Enco urage po intake as [...] 0936 Date of Service: 08/06/18850 Status: Signed Tufting Machine Fixer: Brynn Crawford MD (Physician) [facility] Service: Cardiology/[facility] Progress Note RE: Maria Ines Hunt aMrio : 1955 DATE OF SERVICE: 08/05/2018 PROVIDER:Brynn [...] prolonged QRS Imaging Chest X-Ray: Scores: 1. [id number] Score: 2. [place] Islander Anginal Score: 3. NYHA Score: ASSESSMENT: 1. [...] 08/06/18517 Date of Service: 08/06/18517 Status: Signed Tufting Machine Fixer: Cheryl Patel RN (Registered Nurse) End of shift audit complete. onver federico Transaction, Provider Unknown - 08/05/2018 5:56 PM PST Nurse Progress Note by Ghada Crawley RN at 08/05/181755 Author: Ghada Crawley RN Service: (none) Author Type: Registered Nurse Filed: 08/05/181755 Date of Service: 08/05/18 1756 Status: Signed Tufting Machine Fixer: Ghada Crawley RN (Registered Nurse) End of shift review complete GHADA CRAWLEY RN Brynn Merrill MD - 08/05/2018 1:38 PM PSTFormatting of this note might be different from the orig inal. Progress Notes by Brynn Crawford MD at 08/05/18 3283 Author: Brynn Crawford MD Service: Cardiology Author Type: Physician Filed: 08/05/18 7330 Date of Service: 08/05/18 0978 Status: Signed Tufting Machine Fixer: Brynn Crawford MD (Physician) Mrs. Martin presented [...] was seen by Dr. Vic Gaitan in [facility] for evaluation. An echoca rdiogram was obtained [...] cant ST or T-wave abnormalities. Scores: 1. [id number]-Uwey Score: 4 2. [place]er Anginal Score: 2 3. NYHA Score: 2-3 [...] 2019 | Visit | | [address] [facility] | | | | | | [address] | | | | | | [address] | | | | | | | [...] | | | Fingerstick | performed at [facility];[address] | | LAB | | | | [address];[place] | | | | | | [address] | | | | + + + [...] | | | Fingerstick | performed at [facility];[address] | | LAB | | | | [address];[place], [place] | | | | | | [address] | | | | + + + [...] | | | | | performed at [facility], [address] | | | | | | [address], | | | | | | [place] [address] | | | | + + + [...] | | | Fingerstick | performed at [facility];[address] | | LAB | | | | [address];[place], [place] | | | | | | [address] | | | | + + + [...] | | | Fingerstick | performed at [facility];[address] | | LAB | | | | [address];[place], [place] | | | | | | [address] | | | | + + + [...] | | | Fingerstick | performed at [facility];[address] | | LAB | | | | [address];[place], [place] | | | | | | [address] | | | | + + + [...] | | | Fingerstick | performed at [facility];[address] | | LAB | | | | [address];[place] | | | | | | [address] | | | | + + + [...] EXTERNAL | | | | performed at [facility], [address] | | LAB | | | | [place] [address], | | | | | | [place] [address] | | | | + + + [...] | | | | | performed at [facility], [address] | | | | | | [facility], | | | | | | [place] [address] | | | | + + + [...] | | | Fingerstick | performed at [facility];[address] | | LAB | | | | [address];[place], [place] | | | | | | [address] | | | | + + + [...] | | | Fingerstick | performed at [facility];[address] | | LAB | | | | [address];[place], [place] | | | | | | [address] | | | | + + + [...] | | | Fingerstick | performed at [facility];[address] | | LAB | | | | [address];[place] | | | | | | [address] | | | | + + + [...] EXTERNAL | | | | performed at [facility], [address] | | LAB | | | | [address], | | | | | | [place] [address] | | | | + + + [...] EXTERNAL | | | | performed at [facility], [address] | | LAB | | | | [place] [address], | | | | | | [place] [address] | | | | + + + [...] | | | | | performed at [facility], [address] | | | | | | [facility], | | | | | | [place] [address] | | | | + + + [...] | | | Fingerstick | performed at [facility];[address] | | LAB | | | | [address];[place], [place] | | | | | | [address] | | | | + + + [...] | | | Fingerstick | performed at [facility];[address] | | LAB | | | | [address];[place] | | | | | | [address] | | | | + + + [...] radial artery and a | | | 6-Sri Lankan sheath was placed. The JL-3.5 catheter was [...] right radial artery and a | | 6-Sri Lankan sheath was placed. The JL-3.5 catheter was [...] | | | Fingerstick | performed at [facility];[address] | | LAB | | | | [address];[place] | | | | | | [address] | | | | + + + + + + + + | Specimen | + + | | + + + +---------+ + + | Performing | Address | City/State/Zipcode | Phone Number | | Organization | | | | + +---------+ + + | EXTERNAL LAB | | | | + +---------+ + + [place] (08/08/2018 12:12 PM PST) + + + + + + | Component | Value | Ref Range | Performed | Pathologist | | | | | At | Signature | + + + + + + | [facility] [place] | 96.5 (H)Comment: | mg/L | EXTERNAL [...] + + + + + + | [place]/[facility] | 1.50Comment: Reference | | EXTERNAL | | | a Free | range: 0.26 to | | LAB | | | Light Chain | 1.65Testing performed at | | | | | Ratio | [facility], [address] | | | | | | [place] | | | | | | [address] | | | | + + + [...] | | Comp 4 | performed at [facility], [address] | | LAB | | | | [address], | | | | | | [place] [address] | | | | + + + [...] at | | | | | | [facility], [address] [facility] | | | | | | [place] | | | | | | [address] | | | | + + + [...] | | | | | [place] [address] | | | | + + + [...] | | | | | | at [facility], [address] | | | | | | [place] [address], | | | | | | [place] [address] | | | | + + + [...] | | | | | performed at [facility], [address] | | | | | | [facility], | | | | | | [place] [address] | | | | + + + [...] | | | | | performed at [facility], [address] | | | | | | [address] | | | | | | [place] [address] | | | | + + + [...] | | | | | with both ME-3 and | | | | | | [...] | | | 3 | performed by [facility], | | | | | | [address], | | | | | | [facility] [address] | | | | + + + [...] | | | | | | [place] [address] | | | | + + + [...] | | Quant, CSF | performed at [facility], | | | | | | [address], [address], | | | | | | [place] [address] | | | | + + + [...] EXTERNAL | | | | performed at [facility], [address] | | LAB | | | | [address], | | | | | | [place] [address] | | | | + + + [...] EXTERNAL | | | | performed at [facility], [address] | | LAB | | | | [address], | | | | | | [place] [address] | | | | + + + [...] | | | | | [place] [address] | | | | + + + [...] | | | Fingerstick | performed at [facility];[address] | | LAB | | | | [address];[place], [place] | | | | | | [address] | | | | + + + [...] | | | Fingerstick | performed at [facility];[address] | | LAB | | | | [address];[place], [place] | | | | | | [address] | | | | + + + [...] EXTERNAL | | | | performed at [facility], [address] | | LAB | | | | [address] [facility], | | | | | | [place] [address] | | | | + + + [...] EXTERNAL | | | | performed at [facility], [address] | | LAB | | | | [address], | | | | | | [place] [address] | | | | + + + [...] | | | | | performed at [facility], [address] | | | | | | [facility], | | | | | | [place] [address] | | | | + + + [...] | | | Fingerstick | performed at [facility];[address] | | LAB | | | | [address];[place] | | | | | | [address] | | | | + + + [...] | | | Fingerstick | performed at [facility];[address] | | LAB | | | | [address];[place], [place] | | | | | | [address] | | | | + + + [...] | | | | | performed at [facility] | | | | | | [facility];[place] | | | | | | [address] | | | | + + + [...] | | | Fingerstick | performed at [facility];[address] | | LAB | | | | [address];[place] | | | | | | [address] | | | | + + + [...] | | at Ratio | performed at [facility], [address] | | LAB | | | | [facility], | | | | | | [place] [address] | | | | + + + [...] | | | | | performed at [facility], [address] | | | | | | [facility], | | | | | | [place] [address] | | | | + + + [...] LAB | | | | performed at [facility], [address] | | | | | [address], | | | | | | [place] [address] | | | | + + + [...] LAB | | | | performed at [facility], [address] | | | | | [address], | | | | | | [place] [address] | | | | + + + [...] | | | Fingerstick | performed at [facility];[address] | | LAB | | | | [address];[place], [place] | | | | | | [address] | | | | + + + [...] EXTERNAL | | | | performed at [facility], [address] | | LAB | | | | [address], | | | | | | [place] [address] | | | | + + + [...] EXTERNAL | | | | performed at [facility], [address] | | LAB | | | | [address], | | | | | | [place] [address] | | | | + + + [...] | | | | | performed at [facility], [address] | | | | | | [facility], | | | | | | [place] [address] | | | | + + + [...] | | | Fingerstick | performed at [facility];[address] | | LAB | | | | [address];[place], [place] | | | | | | [address] | | | | + + + [...] | | | Fingerstick | performed at [facility];[address] | | LAB | | | | [address];[place] | | | | | | [address] | | | | + + + [...] | A Brock: 0.60 m/s TV Dec Garrard: 2.33 m/s2 TV Dec Time: | | | 240.52 ms TV E Brock: 0.56 m/s TV E/A Ratio: 0.92 | | | Supervisor Agricultural Education: GONZALO Authenticated by: Brynn Crawford MD Report Date/Time: | | | -- [id number] | | + + + + + [...] mlLAESV Index (A-L): 40.23 ml/m2LAAs A2C: 24.44 pd2RLBOK A-L | | A2C: 74.48 mlLALs A2C: 6.81 cmLAAs A4C: 21.96 [id number] A-L A4C: 68.67 mlLALs | | A4C: 5.96 cmRAAd: 13.73 [id number] A-L: 33.61 mlRAEDV MOD: 31.44 mlRALd: 4.76 | | cmEPSS: 2.39 cmAV maxP.50 mmHgAV meanP.57 mmHgAV Vmax: 1.76 m/John | | Vmean: 1.20 m/John VTI: 39.54 cmAVA Vmax: 2.19 cm2AVA (VTI): 2.37 cf4RYDS Vmax: | | 0.00 cm2/m2AVAI (VTI): 0.00 [...] 25.31 cmTV A Brock: 0.60 m/sTV Dec Garrard: 2.33 m/s2TV | | Dec Time: 240.52 msTV E Brock: 0.56 m/sTV E/A Ratio: 0.92 Supervisor Agricultural Education: | | GDAuthenticated by: Brynn Crawford MDReport Date/Time: [id number] | | IMPRESSION: 1. Overall left ventricular [...] A Brock: 0.60 m/s | |TV Dec Garrard: 2.33 m/s2 | |TV Dec Time: 240.52 ms | |TV E Brock: 0.56 m/s | |TV E/A Ratio: 0.92 | | | |Supervisor Agricultural Education: GD | |Authenticated by: Brynn Crawford MD | |Report Date/Time: -- [id number] | | | |IMPRESSION: | |1. Overall [...] LAB | | | | performed at [facility], [address] | | | | | | [address], | | | | | | [place] [address] | | | | + + + [...] - 1.030 | EXTERNAL | | | [place] | | | LAB | | + [...] | | | Urine | performed at [facility], [address] | | LAB | | | | [address], | | | | | | [place] [address] | | | | + + + [...] EXTERNAL | | | | performed at [facility];[address] | mmol/L | LAB | | | | [address];[place], [place] | | | | | | [address] | | | | + + + [...] | | | Fingerstick | performed at [facility];[address] | | LAB | | | | [address];[place], [place] | | | | | | [address] | | | | + + + [...] EXTERNAL | | | | performed at [facility], [address] | | LAB | | | | [address], | | | | | | [place] [address] | | | | + + + [...] | | | | | [place] [address] | | | | + + + [...] EXTERNAL | | | | performed at [facility], [address] | | LAB | | | | [address], | | | | | | [place] [address] | | | | + + + [...] | EXTERNAL | | | A1c | Gabonese Diabetes | | LAB | | | [...] | | | | | performed at [facility], [address] | | | | | | [facility], | | | | | | [place] [address] | | | | + + + [...] | | | | | performed at [facility];[address] | | | | | | [facility] [facility];[place], [place] | | | | | | [address] | | | | + + + [...] | | | Fingerstick | performed at [facility];[address] | | LAB | | | | [address];[place], [place] | | | | | | [address] | | | | + + + [...] EXTERNAL | | | | performed at [facility];[address] | mmol/L | LAB | | | | [address];[place] | | | | | | [address] | | | | + + + [...] | | | Fingerstick | performed at [facility];[address] | | LAB | | | | [address];[place] | | | | | | [address] | | | | + + + [...] LAB | | | | performed at [facility];[address] | | | | | | [address];[place], [place] | | | | | | [address] | | | | + + + [...] | | | Basophils | performed at [facility];[address] | K/uL | LAB | | | | [address];[place], [place] | | | | | | [address] | | | | + + + [...] | | | | | | MDRD IDWV traceable | | | | | | equation.Testing | | | | | | performed at 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
--- OUTSIDE RECORDS SUMMARY | ~2019-07-23 | XMS | Encounter Summary ---
Demographics + + + | Address | [address] | | | [place] [address] | + + + | Home Phone | | + + + | Preferred Language | Unknown | + + + | Marital Status | | + + + | Mormonism Affiliation | 1041 | + + + | Race | Unknown | + + + | Ethnic Group | Unknown | + + + Author + + + | Author | [facility] | | | and [place] | + + + | Organization | [facility] | | | [...] Team Providers + +------+ + | Care Intern Architect Name | Role | Phone | [...] + + | 06/22/ | Documentati | [facility] | Luis, | Results (06/17/19) | | 2019 | on | NEPHROLOGY [place] [facility] | | | | | [address] | Nursing Admin | | | | | WAY [facility] [address] | | | | | | [place], [place] | | | | | | [address] | | | | | | [phone] | | | +--------+ + + + [...] 2019 | Visit | | [address] [facility] | | | | | | [address] [place], [place] | | | | | | [address] | | | | | | | [...]
--- OUTSIDE RECORDS SUMMARY | ~2019-07-23 | XMS | Encounter Summary ---
Demographics + + + | Address | [address] | | | [place] [address] | + + + | Home Phone | | + + + | Preferred Language | Unknown | + + + | Marital Status | | + + + | Holiness Affiliation | 1041 | + + + [...] Team Providers + +------+ + | Care Lockstitch Coat Joiner Name | Role | Phone | + +------+ + | Bernadette Armendariz PA-C | PCP | | + +------+ + Encounter Details +--------+ + + + + | Date | Type | Department | Care Team | Description | +--------+ + + + + | 11/12/ | Orders Only | [facility] | Conversion | | | 2019 | | NEPHROLOGY CAMI | Transaction, | | | | | [address] | Provider Unknown | | | | | [address] [place] | | | | | | [address] | (Fax) | | | | | [phone] | | | +--------+ + + + [...] 2020 | Visit | | [address] [facility] | | | | | | [address] [place], [place] | | | | | | [address] | | | | | | | [...]
--- OUTSIDE RECORDS SUMMARY | ~2019-07-23 | XMS | Encounter Summary ---
Demographics + + + | Address | [address] | | | [place] [address] | + + + | Home Phone | | + + + | Preferred Language | Unknown | + + + | Marital Status | | + + + | Jain Affiliation | 1041 | + + + | Race | Unknown | + + + | Ethnic Group | Unknown | + + + Author + + + | Author | [facility] | | | and [place] | + + + | Organization | [facility] | | | [...] Team Providers + +------+ + | Care Principal Planner Name | Role | Phone | + [...] (congestive | PA-C [address] | [address] | | | | | heart | [address] | [place], | | | | | failure) | [place] | [place] | | | | | (HCC) | [address] | [address] | | | | | Procedures | [place], | Phone: | | | | | ERECTOR OPERATOR 02/11 > | [place] | [phone] | | | | | PENDING DOS | [address] | Fax: | | | | | | Phone: | [phone] | | | | | | [phone] | | | | | | | Fax: | | | | | | | [phone] | | +--------+--------+ + + + + Encounter Details +--------+---------+ + + + | Date | Type | Department | Care Team | Description | +--------+---------+ + + + | 03/03/ | Office | [facility] | Сергей Vasquez | Congestive heart | | 2017 | Visit | CARDIOLOGY [address] | MD Don [address] | failure, unspecified | | | | [address] [place], | [address] [place] | HF chronicity, | | | | [place] [address] | [place] [address] | unspecified heart | | | | [phone] | [phone] | failure type (HCC) | | | | | | (Primary Dx); | | | | | | Myocardial | | | | | | infarction, | | | | | | unspecified [place] type, | | | | | | [...] whether | | | | | | [place] or | | | | | | [...] procedure. 6. Make sure you have a short haul driver to take you home. Your short haul driver will also need to sign you [...] hospital line at and ask for nursing supercharge repair supervisor t o let them know you [...] 4.7 Final Albumin/Globulin Ratio 01/27/2018 0.5 Final [facility] 01/27/2018 27.0 26.0 - 33.0 pg Final MCHC 01/27/2018 33.0 30.0 - 36.0 % Final BASOPHILS % 01/27/2018 0.3 1.0 % Final I reviewed [facility] for hospitalization,including H&P, [facility] and lab reports on 01/27/18 [...] made to ensure accuracy; however, inadvertent computerized relay repairer errors may be pre sent. Electronically signed by: Kyler Vasquez MD PhD [facility] 03/03/2018 documented in t his encounter Plan of Treatment +--------+---------+ + + + | Date | Type | Specialty | Care Team | Description | +--------+---------+ + + + | 09/27/ | Office | Nephrology | James Pearce MD | | | 2019 | Visit | | [address] [facility] | | | | | | [address] [place], [place] | | | | | | [address] | | | | | | | [...] whether | | | | | | [place] or | | | | | | [...] whether | | | | | | [place] or | | | | | | [...] whether | | | | | | [place] or | | | | | | [...] MD | | | | | | ([id number]) on 03/04/2018 | | | | | [...] | + + | Myocardial infarction, unspecified [place] type, unspecified artery (HCC) | + + | Cerebrovascular accident (CVA), unspecified mechanism (HCC) | + + | Hypertension, unspecified type | + + | Heart disease Heart disease, unspecified | + + | Tobacco use disorder | + + | Coronary artery disease, angina presence unspecified, unspecified vessel or lesion | | type, unspecified whether [place] or transplanted heart | + + documented in this encounter
--- OUTSIDE RECORDS SUMMARY | ~2019-07-23 | XMS | Encounter Summary ---
Demographics + + + | Address | [address] | | | [place] [address] | + + + | Home Phone [...] Team Providers + +------+ + | Care Services Clerk Name | Role | Phone | + +------+ + | Bernadette Armendariz PA-C | PCP | | + +------+ + Encounter Details +--------+ + + + + | Date | Type | Department | Care Team | Description | +--------+ + + + + | 12/02/ | Emergency | [facility] | [facility], | | | 2019 - | | MEDICAL CENTER | MD [address] | | | | | EMERGENCY CENTER | [place]ae[place] | | | 12/03/ | | [address] | [place] [address] | | | 2018 | | [place], [place] | [phone] | | | | | [address] | | | | | | [phone] | | | +--------+ + + + [...] 2019 | Visit | | [address] [facility] | | | | | | [address] [place] | | | | | | [address] | | | | | | | | +--------+---------+ + + + documented as of this encounter Visit Diagnoses Not on filedocumented in this encounter"
--- OUTSIDE RECORDS SUMMARY | ~2019-07-23 | XMS | Encounter Summary ---
Demographics + + + | Address | [address] | | | [place] [address] | + + + | Home Phone | | + + + | Preferred Language | Unknown | + + + | Marital Status | | + + + | Druze Affiliation | 1041 | + + + | Race | Unknown | + + + | Ethnic Group | Unknown | + + + Author + + + | Author | [facility] | | | and [place] | + + + | Organization | [facility] | | [...] Team Providers + +------+ + | Care Software Product Manager Name | Role | Phone | [...] + + | 06/24/ | Telephone | [facility] | James Pearce MD | Other (Priti) | | 2019 | | NEPHROLOGY [place] | [address] [facility] | | | | | [address] | [address] [place], [place] | | | | | [facility] [address] | [address] | | | | | [place], [place] | | | | | | [address] | | | | | | [phone] | | | +--------+ + + + [...] 2020 | Visit | | [address] [facility] | | | | | | [address] [place] | | | | | | [address] | | | | | | | | +--------+---------+ + + + documented as of this encounter Visit Diagnoses Not on filedocumented in this encounter"
--- OUTSIDE RECORDS SUMMARY | ~2019-07-23 | XMS | Encounter Summary ---
Demographics + + + | Address | [address] | | | [place] [address] | + + + | Home Phone | | + + + | Preferred Language | Unknown | + + + | Marital Status | | + + + | Mandaen Affiliation | 1041 | + + + | Race | Unknown | + + + | Ethnic Group | Unknown | + + + Author + + + | Author | [facility] | | | and [place] | + + + | Organization | [facility] | | | [...] Team Providers + +------+ + | Care Aoc Aadc Operations Staff Officer Name | Role | Phone | + +------+ + PCP | Unavailable | + +------+ + Encounter Details +--------+ + + + + | Date | Type | Department | Care Team | Description | +--------+ + + + + | 10/14/ | Hospital | [facility] | Cal Godinez, | | | 2000 | Encounter | MED CTR GENERIC OP | MD [address] | | | | | CONV DEPT [address] | [place], [place] | | | | | [place], | [address] | | | | | [place] [address] | | | | | | [phone] | | | +--------+ + + + [...] 2020 | Visit | | [address] [facility] | | | | | | [address] [place] | | | | | | [address] | | | | | | | | +--------+---------+ + + + documented as of this encounter Visit Diagnoses Not on filedocumented in this encounter"
--- OUTSIDE RECORDS SUMMARY | ~2019-07-23 | XMS | Encounter Summary ---
Demographics + + + | Address | [address] | | | [place] [address] | + + + | Home Phone | | + + + | Preferred Language | Unknown | + + + | Marital Status | | + + + | Baptism Affiliation | 1041 | + + + | Race | Unknown | + + + | Ethnic Group | Unknown | + + + Author + + + | Author | [facility] | | | and [place] | + + + | Organization | [facility] | | | and [...] Team Providers + +------+ + | Care Cad Programmer Name | Role | Phone | + +------+ + | Nathalie Castorena | PCP | | + +------+ + Encounter Details +--------+ + + + + | Date | Type | Department | Care Team | Description | +--------+ + + + + | 03/10/ | Orders Only | [facility] | James Pearce MD | | | 2018 | | NEPHROLOGY [place] | [address] [place] | | | | | [address] [place] | [address] [place], [place] | | | | | [address] [place], [place] | [address] | | | | | [address] | | | | | | [phone] | | | +--------+ + + + [...] 2020 | Visit | | [address] [facility] | | | | | | [address] [place] | | | | | | [address] | | | | | | | | +--------+---------+ + + + documented as of this encounter Visit Diagnoses Not on filedocumented in this encounter"
--- OUTSIDE RECORDS SUMMARY | ~2019-07-23 | XMS | Encounter Summary ---
Demographics + + + | Address | [address] | | | [place] [address] | + + + | Home Phone | | + + + | Preferred Language | Unknown | + + + | Marital Status | | + + + | Zoroastrianism Affiliation | Unknown | + + + | Race | or | + + + | Ethnic Group | Not or | + + + Author + + + | Author | [facility] | + + + | Organization | [facility] | + + + | Address | Unknown | + + + | Phone | Unavailable | + + + Support + + + + + | Name | Relationship | Address | Phone | + + + + + | Angene Bill | ECON | [address] | | | | | [place], [place] | | | | | [address] | | + + + + + Care Team Providers + +------+ + | Care Permastone Installer Name | Role | Phone | [...] | | | | | livia | [place], [place] | | | | | | [address] | | | +--------+ + + + [...]
--- OUTSIDE RECORDS SUMMARY | ~2019-07-23 | XMS | Encounter Summary ---
Demographics + + + | Address | [address] | | | [place] [address] | + + + | Home Phone [...] Team Providers + +------+ + | Care Shell Mold Bonding Machine Operator Name | Role | Phone | + +------+ + PCP | Unavailable | + +------+ + Encounter Details +--------+ + + + + | Date | Type | Department | Care Team | Description | +--------+ + + + + | 02/09/ | Hospital | [facility] | Ilan Pitts, | | | 1991 - | Encounter | MED CTR MED ONC | MD [address] | | | | | [address] [place] | [place], [place] | | | 02/12/ | | [place] [address] | [address] | | | 1989 | | [phone] | | | +--------+ + + + [...] 2020 | Visit | | [address] [facility] | | | | | | [address] [place] | | | | | | [address] | | | | | | | | +--------+---------+ + + + documented as of this encounter Visit Diagnoses Not on filedocumented in this encounter"
--- OUTSIDE RECORDS SUMMARY | ~2019-07-23 | XMS | Encounter Summary ---
Demographics + + + | Address | [address] | | | [place] [address] | + + + | Home Phone | | + + + | Preferred Language | Unknown | + + + | Marital Status | | + + + | Yazdanism Affiliation | 1041 | + + + | Race | Unknown | + + + | Ethnic Group | Unknown | + + + Author + + + | Author | [facility] | | | and [place] | + + + | Organization | [facility] | | [...] Team Providers + +------+ + | Care Chiller Technician Name | Role | Phone | + +------+ + | Bernadette Armendariz PA-C | PCP | | + +------+ + Encounter Details +--------+---------+ + + + | Date | Type | Department | Care Team | Description | +--------+---------+ + + + | 03/16/ | Office | [facility] | James Pearce MD | CKD (chronic kidney | | 2019 | Visit | NEPHROLOGY [place] | [address] [facility] [address] [facility] | disease), stage IV | | | | [address] | [address] [place], [place] | ([facility]) (Primary Dx); | | | | [address] | [address] | Vitamin D | | | | [place], [place] | | deficiency; Anemia | | | | [address] | | of chronic renal | | | | [phone] | | failure, stage 4 | | | | | | (severe) (HCC); | | | | | | Secondary | | | | | | hyperparathyroidism | | | | | | ([facility]); 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 P M PDT documented in this encounter Progress Notes James Pearce MD - 03/16/2019 2:10 PM PDT Progress Notes by James Pearce MD at 11/17/18 [id number] Author: James Pearce MD Service: (none) Author Type: Physician Filed: 11/17/18 [id number] Encounter Date: 11/17/2018 Status: Signed Die Sizer: James Pearce MD (Physician) Patient Active Problem [...] LABIRON 82.2 (A) 11/12/2018 LABPROT 4.982 08/07/2018 [id number] 8.5 (A) 11/12/2018 Assessment: Ms. Martin is [...] RFP, CBC, Iron studies, Ferritin, intact PTH, 46-lbzhmzb-nbqbtat D befor e she comes back in 3 months. Thank you Colleague for the opportunity to see this patient in F/U today. Please do not hes itate to call me at any time with questions or concerns. Truly yours, James Pearce MD [facility] documented in this enco unter Plan of Treatment +--------+---------+ + + + | Date | Type | Specialty | Care Team | Description | +--------+---------+ + + + | 09/27/ | Office | Nephrology | James Pearce MD | | | 2019 | Visit | | [address] [facility] | | | | | | [address] [place], [place] | | | | | | [address] | | | | | | | [...] | LABS - EXTERNAL SCAN | | 03/11/2019 | | Results for this | | [...] unspecified provider. | | + + + LABS - EXTERNAL SCAN (03/11/2019 12:00 AM PDT) + + + | [...]
--- OUTSIDE RECORDS SUMMARY | ~2019-07-23 | XMS | Encounter Summary ---
Demographics + + + | Address | [address] | | | [place] [address] | + + + | Home Phone [...] Team Providers + +------+ + | Care Global Security Architect Name | Role | Phone | + +------+ + | Bernadette Armendariz PA-C | PCP | | + +------+ + Encounter Details +--------+ + + + + | Date | Type | Department | Care Team | Description | +--------+ + + + + | 11/12/ | Orders Only | [facility] | James Pearce MD | | | 2019 | | NEPHROLOGY [place] | [address] [place] | | | | | [address] [place] | [address] [place], [place] | | | | | [address] [facility] [place] | [address] | | | | | [address] | | | | | | [phone] | | | +--------+ + + + [...] 2020 | Visit | | [address] [facility] | | | | | | [address] [place], [place] | | | | | | [address] | | | | | | | [...] | | | LAB | | | [place] | | | | | + +---------+ [...]
--- OUTSIDE RECORDS SUMMARY | ~2019-07-23 | XMS | Encounter Summary ---
Demographics + + + | Address | [address] | | | [place] [address] | + + + | Home Phone [...] Team Providers + +------+ + | Care Pollution Control Chemist Name | Role | Phone | + +------+ + PCP | Unavailable | + +------+ + Encounter Details +--------+ + + + + | Date | Type | Department | Care Team | Description | +--------+ + + + + | 10/14/ | Hospital | [facility] | Cal Godinez, | | | 2000 | Encounter | MED CTR GENERIC OP | MD [address] [facility] | | | | | CONV DEPT [address] | [place], [place] | | | | | [place], | [address] | | | | | [place] [address] | | | | | | [phone] | | | +--------+ + + + [...] 2020 | Visit | | [address] [facility] | | | | | | [address] [place] | | | | | | [address] | | | | | | | | +--------+---------+ + + + documented as of this encounter Visit Diagnoses Not on filedocumented in this encounter"
--- OUTSIDE RECORDS SUMMARY | ~2019-07-23 | XMS | Encounter Summary ---
Demographics + + + | Address | [address] | | | [place] [address] | + + + | Home Phone | | + + + | Preferred Language | Unknown | + + + | Marital Status | | + + + | Protestant Affiliation | 1041 | + + + | Race | Unknown | + + + | Ethnic Group | Unknown | + + + Author + + + | Author | [facility] | | | and [place] | + + + | Organization | [facility] | | [...] Team Providers + +------+ + | Care Papier Mache' Molder Name | Role | Phone | + +------+ + | Bernadette Armendariz PA-C | PCP | | + +------+ + Encounter Details +--------+ + + + + | Date | Type | Department | Care Team | Description | +--------+ + + + + | 02/23/ | Orders Only | [facility] | Provider, | Essential (primary) | | 2018 | | SYSTEM GENERIC OP | MD [address] | hypertension; Type 2 | | | | CONVERSION [address] | [address] | diabetes mellitus | | | | [address] [place], [place] | [place] [address] | with complications | | | | [address] | | ([facility]); Acute kidney | | | | [phone] | | failure ([facility]); | | | | | | Chronic kidney | | | | | | disease, stage IV | | | | | | (severe) ([facility]); | | | | | | Proteinuria; | | | | | | Secondary | | | | | | hyperparathyroidism | | | | | | of renal origin | | | | | | ([facility]); Vitamin D | | | | | [...] 2019 | Visit | | [address] [facility] | | | | | | [address] [place], [place] | | | | | | [address] | | | | | | | [...] | | | | | | ([facility]) Vitamin D | | | | | [...] | | | | | | ([facility]) Vitamin D | | | | | [...] | | | | | (severe) ([facility]) | | | | | | Proteinuria | | | | | | Secondary | | | | | | hyperparathyroidism | | | | | | of renal origin | | | | | | ([facility]) Vitamin D | | | | | [...] | | | | | (severe) ([facility]) | | | | | | Proteinuria | | | | | | Secondary | | | | | | hyperparathyroidism | | | | | | of renal origin | | | | | | ([facility]) Vitamin D | | | | | [...]
--- OUTSIDE RECORDS SUMMARY | ~2019-07-23 | XMS | Encounter Summary ---
Demographics + + + | Address | [address] | | | [place] [address] | + + + | Home Phone | | + + + | Preferred Language | Unknown | + + + | Marital Status | | + + + | Caodaism Affiliation | 1041 | + + + | Race | Unknown | + + + | Ethnic Group | Unknown | + + + Author + + + | Author | [facility] | | | and [place] | + + + | Organization | [facility] | | [...] Team Providers + +------+ + | Care Cut Off Tender Glass Name | Role | Phone | + +------+ + | Bernadette Armendariz PA-C | PCP | | + +------+ + Encounter Details +--------+ + + + + | Date | Type | Department | Care Team | Description | +--------+ + + + + | 03/11/ | Orders Only | [facility] | James Pearce MD | Essential | | 2019 | | NEPHROLOGY [place] | [address] [place] | hypertension | | | | [address] | [address] [place], [place] | (Primary Dx); Type 2 | | | | [address] | [address] | diabetes mellitus | | | | [place], [place] | | with complication, | | | | [address] | | with long-term | | | | [phone] | | current use of | | [...] 2019 | Visit | | [address] [facility] [address] | | | | | | [address] [place], [place] | | | | | | [address] | | | | | | | [...] type | | | | | | ([facility]) | | + +------+--------+ + [...]
--- OUTSIDE RECORDS SUMMARY | ~2019-07-23 | XMS | Encounter Summary ---
Demographics + + + | Address | [address] | | | [place] [address] | + + + | Home Phone | | + + + | Preferred Language | Unknown | + + + | Marital Status | | + + + | Pentecostalism Affiliation | 1041 | + + + | Race | Unknown | + + + | Ethnic Group | Unknown | + + + Author + + + | Author | [facility] | | | and [place] | + + + | Organization | [facility] | | | and [...] Team Providers + +------+ + | Care Case Management Assistant Name | Role | Phone | [...] + + | 06/30/ | Telephone | [facility] | Cheryl Livingston | Other (Trevin auth | | 2019 | | NEPRHOLOGY [place] | RASHIDA Alvarez | started); Other | | | | [address] | | (Trevin adams) | | | | [address] [place], [place] | | | | | | [address] | | | | | | [phone] | | | +--------+ + + + [...] 2020 | Visit | | [address] [facility] | | | | | | [address] [place] | | | | | | [address] | | | | | | | | +--------+---------+ + + + documented as of this encounter Visit Diagnoses Not on filedocumented in this encounter"
--- OUTSIDE RECORDS SUMMARY | ~2019-07-23 | XMS | Encounter Summary ---
Demographics + + + | Address | [address] | | | [place] [address] | + + + | Home Phone [...] Team Providers + +------+ + | Care Relocation Specialist Name | Role | Phone | + +------+ + | Bernadette Armendariz PA-C | PCP | | + +------+ + Encounter Details +--------+ + + + + | Date | Type | Department | Care Team | Description | +--------+ + + + + | 12/02/ | Hospital | [facility] | [facility], | Right sided weakness | | 2019 - | Encounter | [facility] | MD Edie Michaels | | | | | CLINICAL DECISION | [address] | | | 12/04/ | | [address] | [place] [address] | | | 2018 | | [place], [place] | [phone] | | | | | [address] | | | | | | [phone] | | | +--------+ + + + [...] 12/04/18808 Date of Service: 12/04/18804 Status: Signed Supervisor Pullet Farm: Toney Lowry MD (Physician) [facility] Service: Hospitalist Physician Discharge Summary Patient ID: Maria Ines Martin [id number] y.o. 1955 Admit date: 12/02/2018 Discharge [...] disease and fol low-up outpatient with her can repairer and manager web. All questions were answered. Condition at discharge: stable as dictated above Primary discharge diagnosis: Right-sided weakness and uncontrolled blood hypertension Disposition: *Home Follow up: [facility] [address] [place] [address] Dictation and coverer or software, eelusion, used which may contain error for similar [...] failure (HCC) 08/05/2018 MIC (acute kidney injury) ([facility]) 08/08/2018 Asthma CAD (coronary artery disease) CHF [...] diffusion-weighted imaging was obtained. MRA Brain: 3D wuon-xp-fgtopz MRA with MIP ref ormations. MRA neck: 2D webp-in-ylmtfn MRA with MIP reformations. FINDINGS: MRI Brain: [...] diffusion-weighted imaging was obtained. MRA Brain: 3D hmsm-hj-kkdehb MRA with MIP ref ormations. MRA neck: 2D hrse-hq-uhdbtj MRA with MIP reformations. FINDINGS: MRI Brain: [...] 88.35 ml D-E Excursion: 1.83 cm E-F Rains: 0.07 m/s TAPSE: 2.80 cm HR: 74.10 [...] TV A Brock: 0.77 m/s TV Dec Rains: 2.83 m/s2 TV Dec Time: 277.60 ms TV E Brock: 0.78 m/s TV E/A Ratio: 1.01 Skilled Nursing Facility Counselor: Authenticated by: JASON BUCIO MD Report Date/Time: [...] 12/04/181301 Date of Service: 12/04/181301 Status: Signed Supervisor Pullet Farm: Stephanie Calzada RN (Registered Nurse) Discharge instructions [...] 12/04/18539 Date of Service: 12/04/18539 Status: Signed Supervisor Pullet Farm: Nichelle Renee RN (Registered Nurse) Chart check complete onver federico Transaction, Provider Unknown - 12/04/2018 1:09 AM PDT Nurse Progress Note by Nichelle Renee RN at 12/04/18108 Author: Nichelle Renee RN Service: (none) Author Type: Registered Nurse Filed: 12/04/18109 Date of Service: 12/04/18108 Status: Signed Supervisor Pullet Farm: Nichelle Renee RN (Registered Nurse) Pt here [...] 1840 Date of Service: 12/03/188 Status: Signed Supervisor Pullet Farm: Francy Orantes RN (Registered Nurse) Chart check complete. Francy Orantes 12/03/18 6:39 PM onver federico Transaction, Provider Unknown - 12/03/2018 2:30 PM PDT Nurse Progress Note by Francy Orantes RN at 12/03/18 1430 Author: Francy Orantes RN Service: (none) Author Type: Registered Nurse Filed: 12/03/18 1431 Date of Service: 12/03/18 1430 Status: Signed Supervisor Pullet Farm: Francy Orantes RN (Registered Nurse) 135/65, holding additional norvac 5mg at this time. onver federico Transaction, Provider Unknown - 12/03/2018 1:17 PM PDT Case Management by Lisa Burns RN at 12/03/18 1317 Author: Lisa Burns RN Service: (none) Author Type: Registered Nurse Filed: 12/03/18 1328 Date of Service: 12/03/18 1317 Status: Addendum Supervisor Pullet Farm: Lisa Burns RN (Registered Nurse) Related Notes: [...] Martin Relationship to Patient spouse Phone number [phone] Mental Status Oriented Prior functional status independent Power of Track Leader No Anticipated Discharge Plan Post Acute Care Needs None at this time Plan communicated to patient/family Yes Resources Financial concerns No Transportation issues No Patient/Family concerns No Prescription Plan Yes Name of Pharmacy [facility] Previous home health equipment Yes ( walker) Vascular access device No Ostomy/Drains/Appliances No Anticipated Disposition Facility Type Home Met with patient and discussed discharge planning, Pt is a 63 y.o., female with vertigo and rt side weakness. Pt lives on the [facility] w/spouse and several other famil y members in a small house. Pt states, that she lost her main house of 28 yrs and was "disp laced" on the [facility]. She and her have been living with her sister and several other people. She claims she sleeps on the the floor and there is not much mobility to mov e around-she can not accommodate a walker in the current house. Pt claims, the [facility] is working on a new place but she did not want to talk about any of the plans for housing or why she was displaced from the original home. Patient's PCP is: [facility] Patient's insurance: Medicaid//[facility] Coverage concerns: none Medication coverage/concerns: none [...] Note by Francy Orantes RN at 12/03/18 0803 Author: Francy Orantes RN Service: (none) Author Type: Registered Nurse Filed: 12/03/18 3967 Date of Service: 12/03/181142 Status: Signed Supervisor Pullet Farm: Francy Orantes RN (Registered Nurse) Telephone order [...] 12/03/18844 Date of Service: 12/03/18844 Status: Signed Supervisor Pullet Farm: Francy Orantes RN (Registered Nurse) New order per Dr. Lowry to administer scheduled BP meds at this time. Toney Cornejo MD - 12/03/2018 8:31 AM PDTFormatting of this note might be different from the origi nal. Progress Notes by Toney Lowry MD at 12/03/18830 Author: Toney Lowry MD Service: (none) Author Type: Physician Filed: 12/03/18843 Date of Service: 12/03/18830 Status: Signed Supervisor Pullet Farm: Toney Lowry MD (Physician) [facility] Service: Hospitalist Progress Note Hospital Day: [...] above Code Status: Full Code Dictation and coverer or software, eelusion, used which may contain error for similar [...] nephropathy, with long-term current use of insulin ([facility]) Non-ischemic cardiomyopathy (HCC) CKD (chronic kidney disease), stage IV (HCC) Anemia of chronic renal failure, stage 4 (severe) ([facility]) Secondary hyperparathyroidism (HCC) Visual changes [place] [facility] Past Medical History Diagnosis Date Acute renal failure ([facility]) 08/05/2018 MIC (acute kidney injury) ([facility]) 08/08/2018 Asthma CAD (coronary artery disease) CHF (congestive heart failure) ([facility]) CVA (cerebral vascular accident) ([facility]) HTN (hypertension) Hyperlipidemia Myocardial infarct (HCC) Type 2 diabetes mellitus ([facility]) HOME MEDICATIONS Prior to Admission medications Medication [...] 0743 Date of Service: 12/03/18739 Status: Signed Supervisor Pullet Farm: Francy Orantes RN (Registered Nurse) Per Dr. [...] 0745 Date of Service: 12/03/18599 Status: Signed Supervisor Pullet Farm: Jael Ford RN (Registered Nurse) Chart check audit complete. onver federico Transaction, Provider Unknown - 12/03/2018 1:23 AM PDT Pharmacy Note by Tia Hodge RPH at 12/03/18122 Author: Tia Hodge RPH Service: Pharmacy Author Type: Pharmacist Filed: 12/03/18122 Date of Service: 12/03/18122 Status: Signed Supervisor Pullet Farm: Tia Hodge RPH (Pharmacist) Clinical Pharmacy Note: Renal Monitoring Height: 160 cm Weight: 88.5 kg Serum Creatinine: 2.07 mg/dL (12/02/18 at [facility]) Estimated creatinine clearance - Cockcroft-Gault CrCl: 30 [...] 2019 | Visit | | [address] [facility] | | | | | | [address] [place] | | | | | | [address] | | | | | | | [...] [place] | | | | | | [address] | | | | + + + [...] | LAB | | | | [address];[place] | | | | | | [address] | | | | + + + [...] [place] | | | | | | [address] | | | | + + + [...] | LAB | | | | [address];[place], [place] | | | | | | [address] | | | | + + + [...] | LAB | | | | [address];[place] | | | | | | [address] | | | | + + + [...] | | D-E Excursion: 1.83 cm E-F Rains: 0.07 m/s TAPSE: 2.80 cm | | [...] | | | 0.77 m/s TV Dec Rains: 2.83 m/s2 TV Dec Time: 277.60 ms TV | | | E Brock: 0.78 m/s TV E/A Ratio: 1.01 Skilled Nursing Facility Counselor: | | | Authenticated by: JASON BUCIO [...] (A-L): 36.58 ml/m2LAAs A2C: 22.52 | | [id number] A-L A2C: 77.43 mlLALs A2C: 5.56 cmLAAs A4C: 20.32 [id number] A-L A4C: | | 62.81 mlLALs A4C: 5.70 cmRAAd: 13.50 [id number] A-L: 27.25 mlRAEDV MOD: 27.63 | | mlRALd: 5.67 cmAo Diam: 3.55 cmAV Cusp: 2.03 cmLA Diam: 4.21 cmLA/Ao: 1.18%FS: | | 40.81 %EDV(Teich): 123.91 mlEF(Teich): 71.30 %ESV(Teich): 35.55 mlIVSd: 1.73 | | cmIVSs: 2.32 cmLVIDd: 5.10 cmLVIDs: 3.01 cmLVPWd: 1.42 cmLVPWs: 1.66 | | cmSV(Teich): 88.35 mlD-E Excursion: 1.83 cmE-F Rains: 0.07 m/sTAPSE: 2.80 cmHR: | | 74.10 BPMAV maxP.59 mmHgAV meanP.44 mmHgAV Vmax: 1.46 m/John Vmean: | | 1.01 m/John VTI: 32.01 cmAVA Vmax: 2.68 cm2AVA (VTI): 2.67 [id number] Vmax: 0.00 | | cm2/m2AVAI (VTI): 0.00 cm2/m2LVCI Dopp: 3.23 l/qxpg1DCRK Dopp: 6.18 l/minHR: | | 72.25 BPMLVOT [...] | m/sTV A Brock: 0.77 m/sTV Dec Rains: 2.83 m/s2TV Dec Time: 277.60 msTV E Brock: 0.78 | | m/sTV E/A Ratio: 1.01 Skilled Nursing Facility Counselor: ASAuthenticated by: JASON [facility] [...] | |D-E Excursion: 1.83 cm | |E-F Rains: 0.07 m/s | |TAPSE: 2.80 cm | |HR: 74.10 BPM | |AV maxP.59 mmHg | |AV meanP.44 mmHg | |AV Vmax: 1.46 m/s | |AV Vmean: 1.01 m/s | |AV VTI: 32.01 cm | |GISSELLE Vmax: 2.68 cm2 | |GISSELLE (VTI): 2.67 [...] A Brock: 0.77 m/s | |TV Dec Rains: 2.83 m/s2 | |TV Dec Time: 277.60 ms | |TV E Brock: 0.78 m/s | |TV E/A Ratio: 1.01 | | | |Skilled Nursing Facility Counselor: | |Authenticated by: JASON BUCIO MD | [...] | LAB | | | | [address];[place] | | | | | | [address] | | | | + + + [...] at [facility] | | LAB | | | | [address];[place] | | | | | | [address] | | | | + + + [...] | | | | | performed at [facility], [address] | | | | | | [address], | | | | | | [place] [address] | | | | + + + [...] | | | Direct | performed at [facility];[address] | | LAB | | | | [address];[place], [place] | | | | | | [address] | | | | + + + [...] | | | Cholesterol | performed at [facility], [address] | | LAB | | | , | [address], | | | | | Calculated, | [place] [address] | | | | | External | [...] | | | | | | MDRD [facility] traceable | | | | | | equation.Testing | | | | | | performed at [facility];[address] | | | | | | [facility];[place], [place] | | | | | | [address] | | | | + + + [...] | LAB | | | | [address];[place], [place] | | | | | | [address] | | | | + + + [...] | LAB | | | | [address];[place], [place] | | | | | | [address] | | | | + + + [...] obtained. | | | MRA Brain: 3D ngkt-ug-xmjpmz MRA with MIP reformations. MRA neck: 2D | | | fdxq-ll-qfxmnc MRA with MIP reformations. FINDINGS: MRI Brain: [...] imaging | | was obtained.MRA Brain: 3D fzue-zk-mwqsrz MRA with MIP reformations.MRA neck: 2D | | arkm-sd-oyhadn MRA with MIP reformations.FINDINGS:MRI Brain:Brain: No restricted [...] obtained. | | | MRA Brain: 3D qljg-tc-pnlhup MRA with MIP reformations. MRA neck: 2D | | | jkxf-cl-lcdcdr MRA with MIP reformations. FINDINGS: MRI Brain: [...] imaging | | was obtained.MRA Brain: 3D aoib-if-gvyujt MRA with MIP reformations.MRA neck: 2D | | yaoi-qd-yqumzb MRA with MIP reformations.FINDINGS:MRI Brain:Brain: No restricted [...] LAB | | | | performed at [facility], [address] | | | | | | [address], | | | | | | [place] [address] | | | | + + + [...] - 1.030 | EXTERNAL | | | [place] | | | LAB | | + [...] | | | Urine | performed at [facility], [address] | | LAB | | | | [address], | | | | | | [place] [address] | | | | + + + [...]
--- OUTSIDE RECORDS SUMMARY | ~2019-07-23 | XMS | Encounter Summary ---
Demographics + + + | Address | [address] | | | [place] [address] | + + + | Home Phone | | + + + | Preferred Language | Unknown | + + + | Marital Status | | + + + | Rastafarian Affiliation | 1041 | + + + | Race | Unknown | + + + | Ethnic Group | Unknown | + + + Author + + + | Author | [facility] | | | and [place] | + + + | Organization | [facility] | | | and [place] | + + + | Address | Unknown | + + + | Phone | Unavailable | + + + Support + + +---------+ + | Name | Relationship | Address | Phone | + + +---------+ + | Byran Martin | ECON | Unknown | | + + +---------+ + | Sachin Dwyer | ECON | Unknown | | + + +---------+ + | Bryan Martin | ECON | Unknown | | + + +---------+ + Care Team Providers + +------+ + | Care Secondary Spanish Teacher Name | Role | Phone | [...] + + | 06/24/ | Telephone | [facility] | James Pearce MD | Other (Priti) | | 2019 | | NEPHROLOGY [place] | [address] [facility] | | | | | [address] | [address] [place], [place] | | | | | [facility] [address] | [address] | | | | | [place], [place] | | | | | | [address] | | | | | | [phone] | | | +--------+ + + + [...] 2020 | Visit | | [address] [facility] | | | | | | [address] [place] | | | | | | [address] | | | | | | | | +--------+---------+ + + + documented as of this encounter Visit Diagnoses Not on filedocumented in this encounter"
--- OUTSIDE RECORDS SUMMARY | ~2019-07-23 | XMS | Encounter Summary ---
Demographics + + + | Address | [address] | | | [place] [address] | + + + | Home Phone | | + + + | Preferred Language | Unknown | + + + | Marital Status | | + + + | Orthodoxy Affiliation | 1041 | + + + | Race | Unknown | + + + | Ethnic Group | Unknown | + + + Author + + + | Author | [facility] | | | and [place] | + + + | Organization | [facility] | | | and [place] | + + + | Address | Unknown | + + + | Phone | Unavailable | + + + Support + + +---------+ + | Name | Relationship | Address | Phone | + + +---------+ + | Bryan Martin | ECON | Unknown | | + + +---------+ + | Sachinirene Heebrtjeanne | ECON | Unknown | | + + +---------+ + | Bryan Martin | ECON | Unknown | | + + +---------+ + Care Team Providers + +------+ + | Care Area Forester Name | Role | Phone | + +------+ + | Bernadette Armendariz PA-C | PCP | | + +------+ + Encounter Details +--------+ + + + + | Date | Type | Department | Care Team | Description | +--------+ + + + + | 03/11/ | Orders Only | [facility] | James Pearce MD | Essential (primary) | | 2019 | | NEPHROLOGY [place] | [address] | hypertension | | | | [address] [place] | [address] [place], [place] | (Primary Dx); CKD | | | | [address] [place], [place] | [address] | (chronic kidney | | | | [address] | | disease), stage IV | | | | [phone] | | (HCC); Nephrotic | | | [...] | | | | | | [address] [place], [place] | | | | | | [address] | | | | | | | [...]
--- OUTSIDE RECORDS SUMMARY | ~2019-07-23 | XMS | Encounter Summary ---
Demographics + + + | Address | [address] | | | [place] [address] | + + + | Home Phone | | + + + | Preferred Language | Unknown | + + + | Marital Status | | + + + | Episcopalian Affiliation | 1041 | + + + | Race | Unknown | + + + | Ethnic Group | Unknown | + + + Author + + + | Author | [facility] | | | and [place] | + + + | Organization | [facility] | | | [...] Team Providers + +------+ + | Care Fixer Boarding Room Name | Role | Phone | + [...] | Congestive | Сергей | [address] | | | | | heart | MD Don | [place], | | | | | failure, | [address] | [place] | | | | | unspecified | [place] | [address] | | | | | HF | [place], [place] | Phone: | | | | | chronicity, | [address] | [phone] | | | | | unspecified | Phone: | Fax: | | | | | heart | [phone] | [phone] | | | | | failure type | Fax: | | | | | | (HCC) | [phone] | | | | | | Coronary [...] | | | | | | | [place] or | | | | | | | transplanted | | | | | | | heart | | | | | | | Procedures | | | | | | | ECHO | | | | | | | Complete ID | | | | | | | ECHO HEART | | | | | | | XTHORACIC,CO | | | | | | | MPLETE W | | | | | | | DOPPLER ID | | | | | | | [...] [address] | | | | | [address] [place], | [address] [place] | | | | | [place] [address] | [place] [address] | | | | | [phone] | [phone] | | | | | | | [...] 2020 | Visit | | [address] [facility] | | | | | | [address] [place], [place] | | | | | | [address] | | | | | | | [...] whether | | | | | | [place] or | | | | | | [...] or lesion | | type, unspecified whether [place] or transplanted heart | + + documented in this encounter"
--- OUTSIDE RECORDS SUMMARY | ~2019-07-23 | XMS | Encounter Summary ---
Demographics + + + | Address | [address] | | | [place] [address] | + + + | Home Phone [...] Team Providers + +------+ + | Care Black Pickler Name | Role | Phone | + +------+ + | Bernadette Armendariz PA-C | PCP | | + +------+ + Encounter Details +--------+ + + + + | Date | Type | Department | Care Team | Description | +--------+ + + + + | 03/18/ | Orders Only | [facility] | James Pearce MD | Essential (primary) | | 2019 | | NEPHROLOGY [place] | [address] | hypertension | | | | [address] | [address] [place], [place] | (Primary Dx); | | | | [address] [place], [place] | [address] | Secondary | | | | [address] | | hyperparathyroidism | | | | [phone] | | (HCC); CKD (chronic | | | | | | kidney disease), | | | | | | stage IV ([facility]); | | | | | | Anemia of chronic | | | | | | renal failure, stage | | | | | | 4 (severe) ([facility]); | | | | | | Vitamin [...] 2019 | Visit | | [address] [facility] [address] | | | | | | [address] [place], [place] | | | | | | [address] | | | | | | | [...] | | | | | 4 (severe) ([facility]) | | + +------+--------+ + + | [...]
--- OUTSIDE RECORDS SUMMARY | ~2019-07-23 | XMS | Encounter Summary ---
Demographics + + + | Address | [address] | | | [place] [address] | + + + | Home Phone [...] Team Providers + +------+ + | Care Weir Fisherman Name | Role | Phone | + +------+ + | Nathalie Castorena | PCP | | + +------+ + Reason for Visit +--------+ + | Reason | Comments | +--------+ + | Other | MANNY started for IV Feraheme | +--------+ + | Other | IV Feraheme approved from 07/09/19-10/08/19 | +--------+ + Encounter Details +--------+ + + + + | Date | Type | Department | Care Team | Description | +--------+ + + + + | 07/08/ | Telephone | [facility] | Cheryl Livingston | Other (MANNY started | | 2018 | | NEPRHOLOGY TIM Alvarez RN | for IV Feraheme); | | | | [address] | | Other (IV Feraheme | | | | [address] [place] | | approved from | | | | [phone] | | 07/09/19-10/08/19) | | | | [phone] | | | +--------+ + + + [...] 2020 | Visit | | [address] [facility] | | | | | | [address] [place] | | | | | | [address] | | | | | | | | +--------+---------+ + + + documented as of this encounter Visit Diagnoses Not on filedocumented in this encounter"
--- OUTSIDE RECORDS SUMMARY | ~2019-07-23 | XMS | Encounter Summary ---
Demographics + + + | Address | [address] | | | [place] [address] | + + + | Home Phone | | + + + | Preferred Language | Unknown | + + + | Marital Status | | + + + | Denominational Affiliation | 1041 | + + + | Race | Unknown | + + + | Ethnic Group | Unknown | + + + Author + + + | Author | [facility] | | | and [place] | + + + | Organization | [facility] | | [...] Team Providers + +------+ + | Care Server Support Technician Name | Role | Phone | [...] + + | 11/14/ | Telephone | [facility] | Сергей Gaitan | Other (Testing, | | 2018 | | [facility] [address] | MD Don [address] | Labs) | | | | [employer], | [address] [place] | | | | | [place] [address] | [place] [address] | | | | | [phone] | [phone] | | | | | | | [...] 2019 | Visit | | [address] [facility] [place] | | | | | | [address] [facility] [place] | | | | | | [address] | | | | | | | [...] | | | | | | unspecified [place] type, | | | | | | [...] | | | | | | unspecified [place] type, | | | | | | [...] | | | | | | unspecified [place] type, | | | | | | [...] | + + | Myocardial infarction, unspecified [place] type, unspecified artery (HCC) | + + | Essential hypertension Unspecified essential hypertension | + + | Encounter for lipid screening for cardiovascular disease | + + documented in this encounter"
--- OUTSIDE RECORDS SUMMARY | ~2019-07-23 | XMS | Encounter Summary ---
Demographics + + + | Address | [address] | | | [place] [address] | + + + | Home Phone [...] Team Providers + +------+ + | Care Route Supervisor Name | Role | Phone | + +------+ + | Bernadette Armendariz PA-C | PCP | | + +------+ + Encounter Details +--------+ + + + + | Date | Type | Department | Care Team | Description | +--------+ + + + + | 08/04/ | Orders Only | [facility] | Brynn Crawford MD | | | 2019 | | CARDIOLOGY [place] | [address] | | | | | [address] | [place] [address] | | | | | [place], [place] | [phone] | | | | | [address] | | | | | | [phone] | | | +--------+ + + + [...] 2020 | Visit | | [address] [facility] | | | | | | [address] [place] | | | | | | [address] | | | | | | | [...]
--- OUTSIDE RECORDS SUMMARY | ~2019-07-23 | XMS | Encounter Summary ---
Demographics + + + | Address | [address] | | | [place] [address] | + + + | Home Phone [...] Team Providers + +------+ + | Care Grinder Set Up Operator External Name | Role | Phone | + +------+ + | Nathalie Castorena | PCP | | + +------+ + Encounter Details +--------+---------+ + + + | Date | Type | Department | Care Team | Description | +--------+---------+ + + + | 06/22/ | Office | [facility] | James Pearce MD | CKD (chronic kidney | | 2019 | Visit | NEPHROLOGY [place] | [address] [facility] | disease), stage IV | | | | [address] | [address] [facility], [place] | ([facility]) (Primary Dx); | | | | [address] | [address] | Anemia of chronic | | | | [place], [place] | | renal failure, stage | | | | [address] | | 4 (severe) ([facility]); | | | | [phone] | | Essential (primary) | | | | | | hypertension; 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, with | | | | | | long-term current | | | | | | use of insulin | | | | | | ([facility]); Secondary | | | | | | hyperparathyroidism | | | | | | ([facility]); Nephrotic | | | | | | [...] LABIRON 82.2 (A) 11/12/2018 LABPROT 4.982 08/07/2018 [id number] 8.5 (A) 11/12/2018 Assessment: Ms. Martin is [...] ED. I see no need for acute INTERNIST. I sent her for a repeat BMP [...] yours, James Pearce MD FACP [facility] ERLINDA documented in this enco unter Plan of Treatment +--------+---------+ + + + | Date | Type | Specialty | Care Team | Description | +--------+---------+ + + + | 09/27/ | Office | Nephrology | James Pearce MD | | | 2019 | Visit | | [address] [facility] | | | | | | [address] [place], [place] | | | | | | [address] | | | | | | | [...]
--- OUTSIDE RECORDS SUMMARY | ~2019-07-23 | XMS | Encounter Summary ---
Demographics + + + | Address | [address] | | | [place] [address] | + + + | Home Phone | | + + + | Preferred Language | Unknown | + + + | Marital Status | | + + + | Rastafarian Affiliation | 1041 | + + + | Race | Unknown | + + + | Ethnic Group | Unknown | + + + Author + + + | Author | [facility] | | | and [place] | + + + | Organization | [facility] | | | and [...] Team Providers + +------+ + | Care Corporate Travel Coordinator Name | Role | Phone | + +------+ + | Bernadette Armendariz PA-C | PCP | | + +------+ + Encounter Details +--------+ + + + + | Date | Type | Department | Care Team | Description | +--------+ + + + + | 03/17/ | Orders Only | [facility] | James Pearce MD | Essential (primary) | | 2019 | | NEPHROLOGY [place] | [address] [place] | hypertension; | | | | [address] [place] | [address] [place], [place] | Chronic kidney | | | | [address] [place], [place] | [address] | disease, stage IV | | | | [address] | | (severe) ([facility]); | | | | [phone] | | Proteinuria; | | | | | | Secondary | | | | | | hyperparathyroidism | | | | | | of renal origin | | | | | | ([facility]); Vitamin D | | | | | [...] 2019 | Visit | | [address] [facility] [address] | | | | | | [address] [place], [place] | | | | | | [address] | | | | | | | [...]
--- OUTSIDE RECORDS SUMMARY | ~2019-07-23 | XMS | Clinical Summary ---
Demographics + + + | Address | [address] | | | [place] [address] | + + + | Home Phone | | + + + | Preferred Language | Unknown | + + + | Marital Status | | + + + | Orthodox Affiliation | Unknown | + + [...] [address] | | | | | [address] | | + + + + + Care Team Providers + +------+ + | Care Screening Representative Name | Role | Phone | + +------+ + PCP | Unavailable | + +------+ + Source Comments [facility] is fully live [facility] and [facility] Allergies Not on File Medications [...]
--- OUTSIDE RECORDS SUMMARY | ~2019-07-23 | XMS | Encounter Summary ---
Demographics + + + | Address | [address] | | | [place] [address] | + + + | Home Phone | | + + + | Preferred Language | Unknown | + + + | Marital Status | | + + + | Evangelical Affiliation | 1041 | + + + [...] Team Providers + +------+ + | Care Clinician Oncology Name | Role | Phone | + [...] | | | failure, | [address] | [address] | | | | | unspecified | St [place] | [place], [place] | | | | | HF | [place], [place] | [address] Phone: | | | | | chronicity, | [address] | [phone] | | | | | unspecified | Phone: | Fax: | | | | | heart | [phone] | [phone] | | | | | failure type | Fax: | | | | | | ([facility]) | [phone] | | | | | | Coronary [...] | | | | | | | [place] | | | | | | [...] | heart | NW | [address] | | | | | failure) | [place] | [address] [place] | | | | | (HCC) | [address] | [facility] [place] | | | | | Procedures | [place], | [address] Phone: | | | | | 2 month | [place] | [phone] | | | | | follow up | [address] | Fax: | | | | | with | Phone: | [phone] | | | | | [place] | [phone] | | | | | | | Fax: | | | | | | | [phone] | | +--------+--------+ + + + + Encounter Details +--------+---------+ + + + | Date | Type | Department | Care Team | Description | +--------+---------+ + + + | 05/13/ | Office | [facility] | Сергей Gaitan | Congestive heart | | 2018 | Visit | CARDIOLOGY [address] | MD [address] | failure, unspecified | | | | [place], | [address] [place] | HF chronicity, | | | | [place] [address] | [place] [address] | unspecified heart | | | | [phone] | [phone] | failure type (HCC) | | | | | | (Primary Dx); | | | | | | Myocardial | | | | | | infarction, | | | | | | unspecified [place] type, | | | | | | [...] whether | | | | | | [place] or | | | | | | [...] Record I previously reviewed records from [facility] for hospitalization,including H&P, Discharge Summary [...] made to ensure accuracy; however, inadvertent computerized call center agent errors may be pre sent. Electronically signed by: Kyler Gaitan MD PhD FACC 05/13/2018 documented in t his encounter Plan of Treatment +--------+---------+ + + + | Date | Type | Specialty | Care Team | Description | +--------+---------+ + + + | 09/27/ | Office | Nephrology | James Pearce MD | | | 2019 | Visit | | [address] [facility] | | | | | | [address] [place] | | | | | | [address] | | | | | | | | +--------+---------+ + + + + + +--------+ + + | Name | Type | Priori | Associated Diagnoses | Order Schedule | | | | ty | | | + + +--------+ + + | External Referral to | Outpatient | Routin | Congestive heart | Ordered: 05/16/2018 | | [facility] [place] | Referral | e | failure, unspecified | | | Cardiology | | | HF chronicity, | | | | | | unspecified heart | | | | | | failure type ([facility]) | | | | | | Coronary artery | | | | | | disease, angina | | | | | | presence | | | | | | unspecified, | | | | | | unspecified vessel | | | | | | or lesion type, | | | | | | unspecified whether | | | | | | [place] or | | | | | | transplanted heart | | + + +--------+ + + documented as of this encounter Visit Diagnoses + + | Diagnosis | + + | Congestive heart failure, unspecified HF chronicity, unspecified heart failure type | | ([facility]) - Primary | + + | Myocardial infarction, unspecified LA type, unspecified artery (HCC) | + + | Essential hypertension Unspecified essential hypertension | + + | Cerebrovascular accident (CVA), unspecified mechanism (HCC) | + + | Heart disease Heart disease, unspecified | + + | Coronary artery disease, angina presence unspecified, unspecified vessel or lesion | | type, unspecified whether [place] or transplanted heart | + + documented in this encounter
--- OUTSIDE RECORDS SUMMARY | ~2019-07-23 | XMS | Encounter Summary ---
Demographics + + + | Address | [address] | | | [place] [address] | + + + | Home Phone [...] Providers + +------+ + | Care Associate Field Service Engineer Name | Role | Phone | [...] (congestive | PA-C [address] | [address] | | | | | heart | NW | [place], | | | | | failure) | [place] | [place] | | | | | (HCC) | [address] | [address] | | | | | Procedures | [place], | Phone: | | | | | [address]ER[place] ARRANGER 02/11 > | [place] | [phone] | | | | | PENDING DOS | [address] | Fax: | | | | | | Phone: | [phone] | | | | | | [phone] | | | | | | | Fax: | | | | | | | [phone] | | +--------+--------+ + + + + Encounter Details +--------+---------+ + + + | Date | Type | Department | Care Team | Description | +--------+---------+ + + + | 03/03/ | Office | [facility] | Сергей Vasquez | Congestive heart | | 2017 | Visit | CARDIOLOGY [address] | MD [address] | failure, unspecified | | | | [place], | [address] [place] | HF chronicity, | | | | [place] [address] | [place] [address] | unspecified heart | | | | [phone] | [phone] | failure type (HCC) | | | | | | (Primary Dx); | | | | | | Myocardial | | | | | | infarction, | | | | | | unspecified HI type, | | | | | | [...] whether | | | | | | circle or | | | | | | [...] procedure. 6. Make sure you have a trailer truck driver to take you home. Your trailer truck driver will also need to sign [...] hospital line at and ask for nursing artificial flowers supervisor t o let them know you [...] 4.7 Final Albumin/Globulin Ratio 01/27/2018 0.5 Final [facility] 01/27/2018 27.0 26.0 - 33.0 pg Final MCHC 01/27/2018 33.0 30.0 - 36.0 % Final BASOPHILS % 01/27/2018 0.3 1.0 % Final I reviewed records from [facility] for hospitalization,including H&P, Discharge [facility] and lab reports on 01/27/18 [...] made to ensure accuracy; however, inadvertent computerized lion tamer errors may be pre sent. Electronically signed by: Kyler Vasquez MD PhD [facility] 03/03/2018 documented in t his encounter Plan of Treatment +--------+---------+ + + + | Date | Type | Specialty | Care Team | Description | +--------+---------+ + + + | 09/27/ | Office | Nephrology | James Pearce MD | | | 2019 | Visit | | [address] [facility] | | | | | | [address] [place], [place] | | | | | | [address] | | | | | | | [...] whether | | | | | | circle or | | | | | | [...] whether | | | | | | circle or | | | | | | [...] whether | | | | | | circle or | | | | | | [...] MD | | | | | | ([id number]) on 03/04/2018 | | | | | [...] | + + | Myocardial infarction, unspecified HI type, unspecified artery (HCC) | + + | Cerebrovascular accident (CVA), unspecified mechanism (HCC) | + + | Hypertension, unspecified type | + + | Heart disease Heart disease, unspecified | + + | Tobacco use disorder | + + | Coronary artery disease, angina presence unspecified, unspecified vessel or lesion | | type, unspecified whether circle or transplanted heart | + + documented in this encounter
--- OUTSIDE RECORDS SUMMARY | ~2019-07-23 | XMS | Encounter Summary ---
Demographics + + + | Address | [address] | | | [place] [address] | + + + | Home Phone | | + + + | Preferred Language | Unknown | + + + | Marital Status | | + + + | Catholic Affiliation | 1041 | + + [...] Team Providers + +------+ + | Care Statistical Engineer Name | Role | Phone | + +------+ + | Nathalie Castorena | PCP | | + +------+ + Reason for Visit +---------+ + | Reason | Comments | +---------+ + | Results | 07/02/19 | +---------+ + Encounter Details +--------+ + + + + | Date | Type | Department | Care Team | Description | +--------+ + + + + | 07/07/ | Documentati | [facility] | Smith, | Results (07/02/19) | | 2019 | on | [facility] | [facility] | | | | | [address] | Superintendent General | | | | | [address] [place], [place] | | | | | | [address] | | | | | | [phone] | | | +--------+ + + + [...] | | | | | | [address] [place], [place] | | | | | | [address] | | | | | | | [...] documented in this encounter Results CBC with Manual Differential (07/02/2019) + + + + + + | [...] Blood | + + Renal Function Panel (07/02/2019) + + + + + + | [...]
--- OUTSIDE RECORDS SUMMARY | ~2019-07-23 | XMS | Clinical Summary ---
Demographics + + + | Address | [address] | | | [place] [address] | + + + | Home Phone | | + + + | Preferred Language | Unknown | + + + | Marital Status | Unknown | + + + | Buddhism Affiliation | Unknown | + + + | Race | Unknown | + + + | Ethnic Group | Unknown | + + + Author + + + | Author | [facility] (Historical as of | | | 03-07-19) | + + + | Organization | [facility] (Historical as of | | | 03-07-19) [...] Providers + +------+ + | Care Director Service Name | Role | Phone | + [...] | CKD (chronic kidney disease), stage IV ([facility]) | 11/17/2018 | + + + | Anemia of chronic renal failure, stage 4 (severe) ([facility]) | 11/17/2018 | + + + | [...] +------+-------+ + | MEDICAID | [place] | [id number] | | | [address] | | | N | | | | [place] | | | [place] | | | | [address] | | | DOOR OPERATOR | | | | | + +--------+ +------+-------+ + | /[facility] | YELLOW | [id number] | | | | | PLANS | [...] | Self | [birth year] Home: | [address] | | | al/Fam | | 1954 | [id number] | [place] | | | jeni | | | [birth year] | [address] | + +--------+ +--------+ + +
--- OUTSIDE RECORDS SUMMARY | ~2019-07-23 | XMS | Encounter Summary ---
Demographics + + + | Address | [address] | | | [place] [address] | + + + | Home Phone | | + + + | Preferred Language | Unknown | + + + | Marital Status | | + + + | Rastafari Affiliation | 1041 | + + + | Race | Unknown | + + + | Ethnic Group | Unknown | + + + Author + + + | Author | [facility] | | | and [place] | + + + | Organization | [facility] | | [...] Team Providers + +------+ + | Care Java J2Ee Software Engineer Name | Role | Phone | [...] | Congestive | Сергей | [address] | | | | | heart | MD Don | [place], | | | | | failure, | [address] | [place] | | | | | unspecified | St [place] | [address] | | | | | HF | [place], [place] | Phone: | | | | | chronicity, | [address] | [phone] | | | | | unspecified | Phone: | Fax: | | | | | heart | [phone] | [phone] | | | | | failure type | Fax: | | | | | | (HCC) | [phone] | | | | | | Coronary [...] | | | | | | | blackfeet or | | | | | | | transplanted | | | | | | | heart | | | | | | | Procedures | | | | | | | ECHO | | | | | | | Complete AR | | | | | | | ECHO HEART | | | | | | | XTHORACIC,CO | | | | | | | MPLETE W | | | | | | | DOPPLER AR | | | | | | | [...] [address] | | | | | [address] [place], | [address] [place] | | | | | [place] [address] | [place] [address] | | | | | [phone] | [phone] | | | | | | | [...] | | | | | | [address] [place], [place] | | | | | | [address] | | | | | | | [...] whether | | | | | | blackfeet or | | | | | | [...] or lesion | | type, unspecified whether blackfeet or transplanted heart | + + documented in this encounter"
--- OUTSIDE RECORDS SUMMARY | ~2019-07-23 | XMS | Encounter Summary ---
Demographics + + + | Address | [address] | | | [place] [address] | + + + | Home Phone | | + + + | Preferred Language | Unknown | + + + | Marital Status | | + + + | Rastafari Affiliation | 1041 | + + + | Race | Unknown | + + + | Ethnic Group | Unknown | + + + Author + + + | Author | [facility] | | | and [place] | + + + | Organization | [facility] | | [...] Providers + +------+ + | Care Metal Expediter Name | Role | Phone | + [...] + + | 03/10/ | Telephone | [facility] | Сергей Gaitan | Other (procedure | | 2017 | | OTM [address] | MD [address] | cancellation) | | | | [place], | [address] [place] | | | | | [place] [address] | [place] [address] | | | | | [phone] | [phone] | | | | | | | [...] 2020 | Visit | | [address] [facility] | | | | | | [address] [place] | | | | | | [address] | | | | | | | | +--------+---------+ + + + documented as of this encounter Visit Diagnoses Not on filedocumented in this encounter"
--- OUTSIDE RECORDS SUMMARY | ~2019-07-23 | XMS | Encounter Summary ---
Demographics + + + | Address | [address] | | | [place] [address] | + + + | Home Phone | | + + + | Preferred Language | Unknown | + + + | Marital Status | | + + + | Adventism Affiliation | 1041 | + + + | Race | Unknown | + + + | Ethnic Group | Unknown | + + + Author + + + | Author | [facility] | | | and [place] | + + + | Organization | [facility] | | | [...] Team Providers + +------+ + | Care Shoulder Puncher Name | Role | Phone | + [...] + + | 11/14/ | Telephone | [facility] | Сергей Gaitan | Other (Testing, | | 2018 | | [facility] [address] | [address] | Labs) | | | | [place], | [address] [place] | | | | | [place] [address] | [place] [address] | | | | | [phone] | [phone] | | | | | | | [...] | Visit | | [address] [facility] [place] | | | | | | [address] [facility] [place], [place] | | | | | | [address] | | | | | | | [...] | | | | | | unspecified [place] type, | | | | | | [...] | | | | | | unspecified [place] type, | | | | | | [...] | | | | | | unspecified [place] type, | | | | | | [...] | + + | Myocardial infarction, unspecified [place] type, unspecified artery (HCC) | + + | Essential hypertension Unspecified essential hypertension | + + | Encounter for lipid screening for cardiovascular disease | + + documented in this encounter"
--- OUTSIDE RECORDS SUMMARY | ~2019-07-23 | XMS | Encounter Summary ---
Demographics + + + | Address | [address] | | | [place] [address] | + + + | Home Phone [...] Team Providers + +------+ + | Care Coal Chute Worker Name | Role | Phone | + +------+ + PCP | Unavailable | + +------+ + Encounter Details +--------+ + + + + | Date | Type | Department | Care Team | Description | +--------+ + + + + | 02/09/ | Hospital | [facility] | Ilan Pitts, | | | 1989 - | Encounter | MED CTR MED ONC | MD [address] | | | | | [address] [place] | [place], [place] | | | 02/12/ | | [place] [address] | [address] | | | 1989 | | [phone] | | | +--------+ + + + [...] | [address] [facility] [address] | | | | | | [address] [place] | | | | | | [address] | | | | | | | | +--------+---------+ + + + documented as of this encounter Visit Diagnoses Not on filedocumented in this encounter"
--- OUTSIDE RECORDS SUMMARY | ~2019-07-23 | XMS | Encounter Summary ---
Demographics + + + | Address | [address] | | | [place] [address] | + + + | Home Phone [...] Team Providers + +------+ + | Care Mechanical Design Technician Name | Role | Phone | + +------+ + PCP | Unavailable | + +------+ + Encounter Details +--------+ + + + + | Date | Type | Department | Care Team | Description | +--------+ + + + + | 10/23/ | Hospital | [facility] | Cal Godinez, | | | 2000 | Encounter | MED CTR XRAY [address] | MD [address] [facility] | | | | | [place] | [place], [place] | | | | | [place] [address] | [address] | | | | | [phone] | | | +--------+ + + + [...] 2020 | Visit | | [address] [facility] | | | | | | [address] [place] | | | | | | [address] | | | | | | | | +--------+---------+ + + + documented as of this encounter Visit Diagnoses Not on filedocumented in this encounter"
--- OUTSIDE RECORDS SUMMARY | ~2019-07-23 | XMS | Encounter Summary ---
Demographics + + + | Address | [address] | | | [place] [address] | + + + | Home Phone [...] Team Providers + +------+ + | Care Hand Glass Cutter Name | Role | Phone | + +------+ + | Bernadette Armendariz PA-C | PCP | | + +------+ + Encounter Details +--------+ + + + + | Date | Type | Department | Care Team | Description | +--------+ + + + + | 12/02/ | Hospital | [facility] | [facility], | Right sided weakness | | 2019 - | Encounter | [facility] | MD Edie Michaels | | | | | CLINICAL DECISION | [address] | | | 12/04/ | | [address] | [place] [address] | | | 2018 | | [place], [place] | [phone] | | | | | [address] | | | | | | [phone] | | | +--------+ + + + [...] 12/04/18808 Date of Service: 12/04/18804 Status: Signed Right Of Way Man: Toney Lowry MD (Physician) [facility] Service: Hospitalist Physician Discharge Summary Patient ID: Maria Ines Martin [id number] y.o. 1955 Admit date: 12/02/2018 Discharge [...] disease and fol low-up outpatient with her paradichlorobenzene machine operator and wind farm engineer. All questions were answered. Condition at discharge: stable as dictated above Primary discharge diagnosis: Right-sided weakness and uncontrolled blood hypertension Disposition: *Home Follow up: [facility] [address] [place] [address] Dictation and automotive parts salesperson or software, Megathread, used which may contain error for similar [...] failure (HCC) 08/05/2018 MIC (acute kidney injury) ([facility]) 08/08/2018 Asthma CAD (coronary artery disease) CHF [...] diffusion-weighted imaging was obtained. MRA Brain: 3D tgun-gt-cjafwf MRA with MIP ref ormations. MRA neck: 2D rxga-fk-bfpblr MRA with MIP reformations. FINDINGS: MRI Brain: [...] diffusion-weighted imaging was obtained. MRA Brain: 3D iabz-yo-mtghjj MRA with MIP ref ormations. MRA neck: 2D etlh-hv-cqnzdv MRA with MIP reformations. FINDINGS: MRI Brain: [...] 88.35 ml D-E Excursion: 1.83 cm E-F Wy[place]: 0.07 m/s TAPSE: 2.80 cm HR: 74.10 [...] TV A Brock: 0.77 m/s TV Dec [place]: 2.83 m/s2 TV Dec Time: 277.60 ms TV E Brock: 0.78 m/s TV E/A Ratio: 1.01 Administrative Resident: Authenticated by: JASON BUCIO MD Report Date/Time: [...] 12/04/181301 Date of Service: 12/04/181301 Status: Signed Right Of Way Man: Stephanie Calzada RN (Registered Nurse) Discharge instructions [...] 12/04/18539 Date of Service: 12/04/18539 Status: Signed Right Of Way Man: Nichelle Renee RN (Registered Nurse) Chart check complete onver federico Transaction, Provider Unknown - 12/04/2018 1:09 AM PDT Nurse Progress Note by Nichelle Renee RN at 12/04/18108 Author: Nichelle Renee RN Service: (none) Author Type: Registered Nurse Filed: 12/04/18109 Date of Service: 12/04/18108 Status: Signed Right Of Way Man: Nichelle Renee RN (Registered Nurse) Pt here [...] 1840 Date of Service: 12/03/188 Status: Signed Right Of Way Man: Francy Orantes RN (Registered Nurse) Chart check complete. Francy Orantes 12/03/18 6:39 PM onver federico Transaction, Provider Unknown - 12/03/2018 2:30 PM PDT Nurse Progress Note by Francy Orantes RN at 12/03/18 1430 Author: Francy Orantes RN Service: (none) Author Type: Registered Nurse Filed: 12/03/18 1431 Date of Service: 12/03/18 1430 Status: Signed Right Of Way Man: Francy Orantes RN (Registered Nurse) 135/65, holding additional norvac 5mg at this time. onver federico Transaction, Provider Unknown - 12/03/2018 1:17 PM PDT Case Management by Lisa Burns RN at 12/03/18 1317 Author: Lisa Burns RN Service: (none) Author Type: Registered Nurse Filed: 12/03/18 1328 Date of Service: 12/03/18 1317 Status: Addendum Right Of Way Man: Lisa Burns RN (Registered Nurse) Related Notes: [...] Martin Relationship to Patient spouse Phone number [phone] Mental Status Oriented Prior functional status independent Power of Garbage Person No Anticipated Discharge Plan Post Acute Care Needs None at this time Plan communicated to patient/family Yes Resources Financial concerns No Transportation issues No Patient/Family concerns No Prescription Plan Yes Name of Pharmacy [facility] Previous home health equipment Yes ( walker) Vascular access device No Ostomy/Drains/Appliances No Anticipated Disposition Facility Type Home Met with patient and discussed discharge planning, Pt is a 63 y.o., female with vertigo and rt side weakness. Pt lives on the [facility] w/spouse and several other famil y members in a small house. Pt states, that she lost her main house of 28 yrs and was "disp laced" on the [facility]. She and her have been living with her sister and several other people. She claims she sleeps on the the floor and there is not much mobility to mov e around-she can not accommodate a walker in the current house. Pt claims, the [facility] is working on a new place but she did not want to talk about any of the plans for housing or why she was displaced from the original home. Patient's PCP is: [facility] Patient's insurance: Medicaid//[facility] Coverage concerns: none Medication coverage/concerns: none [...] Note by Francy Orantes RN at 12/03/18 7389 Author: Francy Orantes RN Service: (none) Author Type: Registered Nurse Filed: 12/03/18 9277 Date of Service: 12/03/181142 Status: Signed Right Of Way Man: Francy Orantes RN (Registered Nurse) Telephone order [...] 12/03/18844 Date of Service: 12/03/18844 Status: Signed Right Of Way Man: Francy Orantes RN (Registered Nurse) New order per Dr. Lowry to administer scheduled BP meds at this time. Toney Cornejo MD - 12/03/2018 8:31 AM PDTFormatting of this note might be different from the origi nal. 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, Megathread, used which may contain error for similar [...] nephropathy, with long-term current use of insulin ([facility]) Non-ischemic cardiomyopathy (HCC) CKD (chronic kidney disease), stage IV (HCC) Anemia of chronic renal failure, stage 4 (severe) ([facility]) Secondary hyperparathyroidism (HCC) Visual changes [place] [facility] Past Medical History Diagnosis Date Acute renal failure ([facility]) 08/05/2018 MIC (acute kidney injury) ([facility]) 08/08/2018 Asthma CAD (coronary artery disease) CHF (congestive heart failure) ([facility]) CVA (cerebral vascular accident) ([facility]) HTN (hypertension) Hyperlipidemia Myocardial infarct (HCC) Type 2 diabetes mellitus ([facility]) HOME MEDICATIONS Prior to Admission medications Medication [...] 0743 Date of Service: 12/03/18739 Status: Signed Right Of Way Man: Francy Orantes RN (Registered Nurse) Per Dr. [...] 0745 Date of Service: 12/03/18599 Status: Signed Right Of Way Man: Jael Ford RN (Registered Nurse) Chart check audit complete. onver federico Transaction, Provider Unknown - 12/03/2018 1:23 AM PDT Pharmacy Note by Tia Hodge RPH at 12/03/18122 Author: Tia Hodge RPH Service: Pharmacy Author Type: Pharmacist Filed: 12/03/18122 Date of Service: 12/03/18122 Status: Signed Right Of Way Man: Tia Hodge RPH (Pharmacist) Clinical Pharmacy Note: Renal Monitoring Height: 160 cm Weight: 88.5 kg Serum Creatinine: 2.07 mg/dL [facility] Estimated creatinine clearance - Cockcroft-Gault CrCl: 30 [...] 2019 | Visit | | [address] [facility] | | | | | | [address] [place] | | | | | | [address] | | | | | | | [...] | | | Fingerstick | performed at [facility];[address] | | LAB | | | | [address];[place] | | | | | | [address] | | | | + + + [...] | | | Fingerstick | performed at [facility];[address] | | LAB | | | | [address];[place] | | | | | | [address] | | | | + + + [...] | | | Fingerstick | performed at [facility];[address] | | LAB | | | | [address];[place] | | | | | | [address] | | | | + + + [...] | | | Fingerstick | performed at [facility];[address] | | LAB | | | | [address];[place], [place] | | | | | | [address] | | | | + + + [...] | | | Fingerstick | performed at [facility];[address] | | LAB | | | | [address];[place] | | | | | | [address] | | | | + + + [...] | | D-E Excursion: 1.83 cm E-F Wyandot: 0.07 m/s TAPSE: 2.80 cm | | [...] | | | 0.77 m/s TV Dec [place]: 2.83 m/s2 TV Dec Time: 277.60 ms TV | | | E Brock: 0.78 m/s TV E/A Ratio: 1.01 Administrative Resident: | | | Authenticated by: JASON BUCIO [...] (A-L): 36.58 ml/m2LAAs A2C: 22.52 | | [id number] A-L A2C: 77.43 mlLALs A2C: 5.56 cmLAAs A4C: 20.32 ck2RJFCL A-L A4C: | | 62.81 mlLALs A4C: 5.70 cmRAAd: 13.50 dm5JBCYJ A-L: 27.25 mlRAEDV MOD: 27.63 | | mlRALd: 5.67 cmAo Diam: 3.55 cmAV Cusp: 2.03 cmLA Diam: 4.21 cmLA/Ao: 1.18%FS: | | 40.81 %EDV(Teich): 123.91 mlEF(Teich): 71.30 %ESV(Teich): 35.55 mlIVSd: 1.73 | | cmIVSs: 2.32 cmLVIDd: 5.10 cmLVIDs: 3.01 cmLVPWd: 1.42 cmLVPWs: 1.66 | | cmSV(Teich): 88.35 mlD-E Excursion: 1.83 cmE-F Wyand[place]: 0.07 m/sTAPSE: 2.80 cmHR: | | 74.10 BPMAV maxP.59 mmHgAV meanP.44 mmHgAV Vmax: 1.46 m/John Vmean: | | 1.01 m/John VTI: 32.01 cmAVA Vmax: 2.68 cm2AVA (VTI): 2.67 fo4OTZO Vmax: 0.00 | | cm2/m2AVAI (VTI): 0.00 cm2/m2LVCI Dopp: 3.23 l/lhwd0NSWX Dopp: 6.18 l/minHR: | | 72.25 BPMLVOT [...] | m/sTV A Brock: 0.77 m/sTV Dec Wyand[place]: 2.83 m/s2TV Dec Time: 277.60 msTV E Brock: 0.78 | | m/sTV E/A Ratio: 1.01 Administrative Resident: ASAuthenticated by: JASON MANEthe hospital of [facility] | | Date/Time: 12-03-2018 14:17:6 IMPRESSION: 1. [...] | |D-E Excursion: 1.83 cm | |E-F Wyand[place]: 0.07 m/s | |TAPSE: 2.80 cm | [...] A Brock: 0.77 m/s | |TV Dec [place]: 2.83 m/s2 | |TV Dec Time: 277.60 ms | |TV E Brock: 0.78 m/s | |TV E/A Ratio: 1.01 | | | |Administrative Resident: | |Authenticated by: JASON BUCIO MD | [...] | | | Basophils | performed at [facility];[address] | K/uL | LAB | | | | [address];[place] | | | | | | [address] | | | | + + + [...] EXTERNAL | | | | performed at [facility] | | LAB | | | | [address];[place] | | | | | | [address] | | | | + + + [...] | | | | performed at [facility], [address] | | | | | | [address], | | | | | | [place] [address] | | | | + + + [...] | | | Direct | performed at [facility];[address] | | LAB | | | | [address];[place], [place] | | | | | | [address] | | | | + + + [...] | | | Cholesterol | performed at [facility], [address] | | LAB | | | , | [address], | | | | | Calculated, | [place] [address] | | | | | External | [...] | | | | | | [facility] traceable | | | | | | equation.Testing | | | | | | performed at [facility];[address] | | | | | | [facility];[place], [place] | | | | | | [address] | | | | + + + [...] | | | Fingerstick | performed at [facility];[address] | | LAB | | | | [address];[place], [place] | | | | | | [address] | | | | + + + [...] | | | Fingerstick | performed at [facility];[address] | | LAB | | | | [address];[place], [place] | | | | | | [address] | | | | + + + [...] obtained. | | | MRA Brain: 3D pvnw-ga-gkpkle MRA with MIP reformations. MRA neck: 2D | | | csem-mm-fewpso MRA with MIP reformations. FINDINGS: MRI Brain: [...] imaging | | was obtained.MRA Brain: 3D hppq-ob-gynkpn MRA with MIP reformations.MRA neck: 2D | | gssj-ue-wpxxrg MRA with MIP reformations.FINDINGS:MRI Brain:Brain: No restricted [...] obtained. | | | MRA Brain: 3D wrte-la-oksqle MRA with MIP reformations. MRA neck: 2D | | | nwez-zv-rjertg MRA with MIP reformations. FINDINGS: MRI Brain: [...] imaging | | was obtained.MRA Brain: 3D uvxw-np-uwlcdf MRA with MIP reformations.MRA neck: 2D | | tmjc-oe-ktezou MRA with MIP reformations.FINDINGS:MRI Brain:Brain: No restricted [...] LAB | | | | performed at [facility], [address] | | | | | | [address], | | | | | | [place] [address] | | | | + + + [...] - 1.030 | EXTERNAL | | | [place] | | | LAB | | + [...] | | | Urine | performed at [facility], [address] | | LAB | | | | [address], | | | | | | [place] [address] | | | | + + + [...]
--- OUTSIDE RECORDS SUMMARY | ~2019-07-23 | XMS | Clinical Summary ---
Demographics + + + | Address | [address] | | | [place] [address] | + + + | Home Phone | | + + + | Preferred Language | Unknown | + + + | Marital Status | Unknown | + + + | Christianity Affiliation | Unknown | + + + | Race | Unknown | + + + | Ethnic Group | Unknown | + + + Author + + + | Author | [employer] (Historical as of | | | 03-07-19) | + + + | Organization | [facility] (Historical as of | | | 03-07-19) [...] Team Providers + +------+ + | Care Judicial Assistant Name | Role | Phone | [...] | CKD (chronic kidney disease), stage IV ([facility]) | 11/17/2018 | + + + | Anemia of chronic renal failure, stage 4 (severe) ([facility]) | 11/17/2018 | + + + [...] +------+-------+ + | MEDICAID | [place] | [id number] | | | [address] | | | N | | | | [place] | | | [place] | | | | [address] | | | FACILITY OPERATIONS MANAGER | | | | | + +--------+ +------+-------+ + | /[facility] | YELLOW | [id number] | | | | | PLANS | [...] | Self | [birth year] Home: | [address] | | | al/Fam | | 1954 | [id number] | [place] | | | jeni | | | [birth year] | [address] | + +--------+ +--------+ + +
--- OUTSIDE RECORDS SUMMARY | ~2019-07-23 | XMS | Clinical Summary ---
Demographics + + + | Address | [address] | | | [place] [address] | + + + | Home Phone [...] [address] | | | | | [address] | | + + + + + Care Team Providers + +------+ + | Care Vending Route Servicer Name | Role | Phone | + +------+ + PCP | Unavailable | + +------+ + Source Comments [facility] is fully live [facility] both [facility] and [facility] Allergies Not on File Medications Not on [...]
--- OUTSIDE RECORDS SUMMARY | ~2019-07-23 | XMS | Encounter Summary ---
Demographics + + + | Address | [address] | | | [place] [address] | + + + | Home Phone [...] | Author | [facility] | | | and [place] | + + + | Organization | [facility] | | [...] Providers + +------+ + | Care Road Oiling Truck Driver Name | Role | Phone | [...] | | | failure, | [address] | | | | | unspecified | St [place] | [place], [place] | | | | | HF | [place], [place] | [address] Phone: | | | | | chronicity, | [address] | [phone] | | | | | unspecified | Phone: | Fax: | | | | | heart | [phone] | [phone] | | | | | failure type | Fax: | | | | | | ([facility]) | [phone] | | | | | | Coronary [...] | | | | | | | [place] or | | | | | | [...] | heart | NW | [address] | | | | | failure) | [place] | [address] [place] | | | | | (HCC) | [address] | [facility], [place] | | | | | Procedures | [place], | [address] Phone: | | | | | 2 month | [place] | [phone] | | | | | follow up | [address] | Fax: | | | | | with | Phone: | [phone] | | | | | [place] | [phone] | | | | | | | Fax: | | | | | | | [phone] | | +--------+--------+ + + + + Encounter Details +--------+---------+ + + + | Date | Type | Department | Care Team | Description | +--------+---------+ + + + | 05/13/ | Office | [facility] | Сергей Gaitan | Congestive heart | | 2018 | Visit | CARDIOLOGY [address] | MD Don [address] | failure, unspecified | | | | [address] [place], | [address] [place] | HF chronicity, | | | | [place] [address] | [place] [address] | unspecified heart | | | | [phone] | [phone] | failure type (HCC) | | | | | | (Primary Dx); | | | | | | Myocardial | | | | | | infarction, | | | | | | unspecified [place] type, | | | | | | [...] whether | | | | | | [place] or | | | | | | [...] differe nt from the original. PATIENT NAME: Marai Ines Martin : 1955: AGE: 63 y.o. [...] Medical Record I previously reviewed records from [facility] for hospitalization,including H&P, Discharge Summary [...] made to ensure accuracy; however, inadvertent computerized square cutter errors may be pre sent. Electronically signed by: Kyler Gaitan MD PhD FACC 05/13/2018 documented in t his encounter Plan of Treatment +--------+---------+ + + + | Date | Type | Specialty | Care Team | Description | +--------+---------+ + + + | 09/27/ | Office | Nephrology | James Pearce MD | | | 2019 | Visit | | [address] [facility] | | | | | | [address] [place] | | | | | | [address] | | | | | | | | +--------+---------+ + + + + + +--------+ + + | Name | Type | Priori | Associated Diagnoses | Order Schedule | | | | ty | | | + + +--------+ + + | External Referral to | Outpatient | Routin | Congestive heart | Ordered: 05/16/2018 | | [facility] | Referral | e | failure, unspecified | | | Cardiology | | | HF chronicity, | | | | | | unspecified heart | | | | | | failure type ([facility]) | | | | | | Coronary artery | | | | | | disease, angina | | | | | | presence | | | | | | unspecified, | | | | | | unspecified vessel | | | | | | or lesion type, | | | | | | unspecified whether | | | | | | [place] or | | | | | | transplanted heart | | + + +--------+ + + documented as of this encounter Visit Diagnoses + + | Diagnosis | + + | Congestive heart failure, unspecified HF chronicity, unspecified heart failure type | | ([facility]) - Primary | + + | Myocardial infarction, unspecified [place] type, unspecified artery (HCC) | + + | Essential hypertension Unspecified essential hypertension | + + | Cerebrovascular accident (CVA), unspecified mechanism (HCC) | + + | Heart disease Heart disease, unspecified | + + | Coronary artery disease, angina presence unspecified, unspecified vessel or lesion | | type, unspecified whether [place] or transplanted heart | + + documented in this encounter
--- OUTSIDE RECORDS SUMMARY | ~2019-07-23 | XMS | Encounter Summary ---
Demographics + + + | Address | [address] | | | [place] [address] | + + + | Home Phone [...] Team Providers + +------+ + | Care Machinery Rigger Name | Role | Phone | + [...] + + | 03/16/ | Documentati | [facility] | Luis, | Results (03/13/19) | | 2019 | on | NEPHROLOGY [place] | [facility] | | | | | [address] | Fiberglass Quality Technician | | | | | [address] [facility] [address] | | | | | | [place], [place] | | | | | | [address] | | | | | | [phone] | | | +--------+ + + + [...] 09/27/ | Office | Nephrology | James Pearec MD | | | 2019 | Visit | | [address] [facility] | | | | | | [address] [place], [place] | | | | | | [address] | | | | | | | [...] | ESTIMATE | | | | | | (REF) | | | | | + + [...] 1.005 - 1.030 | | | | [place] | | | | | + + [...]
--- OUTSIDE RECORDS SUMMARY | ~2019-07-23 | XMS | Encounter Summary ---
Demographics + + + | Address | [address] | | | [place] [address] | + + + | Home Phone | | + + + | Preferred Language | Unknown | + + + | Marital Status | | + + + | Sabianist Affiliation | Unknown | + + + | Race | or | + + + | Ethnic Group | Not or | + + + Author + + + | Author | [facility] | + + + | Organization | [facility] | + + + | Address | Unknown | + + + | Phone | Unavailable | + + + Support + + + + + | Name | Relationship | Address | Phone | + + + + + | Angene Bill | ECON | [address] | | | | [address], [place] | | | | | [address] | | + + + + + Care Team Providers + +------+ + | Care Surface Miner Name | Role | Phone | + [...] | | | | | livia | [place], [place] | | | | | | [address] | | | +--------+ + + + [...]
--- OUTSIDE RECORDS SUMMARY | ~2019-07-23 | XMS | Encounter Summary ---
Demographics + + + | Address | [address] | | | [place] [address] | + + + | Home Phone [...] Team Providers + +------+ + | Care Mailing Machine Operator Name | Role | Phone | + +------+ + | Bernadette Armendariz PA-C | PCP | | + +------+ + Encounter Details +--------+ + + + + | Date | Type | Department | Care Team | Description | +--------+ + + + + | 03/17/ | Orders Only | [facility] | James Pearce MD | Essential (primary) | | 2019 | | NEPHROLOGY [place] | [address] [place] | hypertension; | | | | [address] [place] | [address] [place], [place] | Chronic kidney | | | | [address] [place], [place] | [address] | disease, stage IV | | | | [address] | | (severe) ([facility]); | | | | [phone] | | Proteinuria; | | | | | | Secondary | | | | | | hyperparathyroidism | | | | | | of renal origin | | | | | | ([facility]); Vitamin D | | | [...] Visit | | [address] [facility] [place] | | | | | | [address] [place], [place] | | | | | | [address] | | | | | | | [...]
--- OUTSIDE RECORDS SUMMARY | ~2019-07-23 | XMS | Encounter Summary ---
Demographics + + + | Address | [address] | | | [place] [address] | + + + | Home Phone [...] Team Providers + +------+ + | Care National Facilities Manager Name | Role | Phone | [...] | | | | | | [place] [address] | | | | | | [phone] | | | +--------+ + + + [...] 2020 | Visit | | [address] [facility] | | | | | | [address] [place], [place] | | | | | | [address] | | | | | | | | +--------+---------+ + + + documented as of this encounter Visit Diagnoses Not on filedocumented in this encounter"
--- OUTSIDE RECORDS SUMMARY | ~2019-07-23 | XMS | Encounter Summary ---
Demographics + + + | Address | [address] | | | [place] [address] | + + + | Home Phone [...] Team Providers + +------+ + | Care Roundhouse Firer/Fireman Name | Role | Phone | + +------+ + | Bernadette Armendariz PA-C | PCP | | + +------+ + Encounter Details +--------+ + + + + | Date | Type | Department | Care Team | Description | +--------+ + + + + | 11/12/ | Orders Only | [facility] | Conversion | | | 2019 | | NEPHROLOGY [place] | Transaction, | | | | | [address] | Provider Unknown | | | | | [address] [place] | | | | | | [address] | (Fax) | | | | | [phone] | | | +--------+ + + + [...] 2020 | Visit | | [address] [facility] | | | | | | [address] [place], [place] | | | | | | [address] | | | | | | | [...]
--- OUTSIDE RECORDS SUMMARY | ~2019-07-23 | XMS | Encounter Summary ---
Demographics + + + | Address | [address] | | | [place] [address] | + + + | Home Phone [...] Providers + +------+ + | Care Pediatric Occupational Therapist Name | Role | Phone | + +------+ + | Bernadette Armendariz PA-C | PCP | | + +------+ + Encounter Details +--------+ + + + + | Date | Type | Department | Care Team | Description | +--------+ + + + + | 03/11/ | Orders Only | [facility] | James Pearce MD | Essential | | 2019 | | NEPHROLOGY [place] | [address] [place] | hypertension | | | | [address] | [address] [place], [place] | (Primary Dx); Type 2 | | | | [address] | [address] | diabetes mellitus | | | | [place], [place] | | with complication, | | | | [address] | | with long-term | | | | [phone] | | current use of | | [...] | | | | | | [address] [place], [place] | | | | | | [address] | | | | | | | [...] | | | | | ([facility]) | | + +------+--------+ + + documented [...]
--- OUTSIDE RECORDS SUMMARY | ~2019-07-23 | XMS | Encounter Summary ---
Demographics + + + | Address | [address] | | | [place] [address] | + + + | Home Phone [...] Team Providers + +------+ + | Care Flatwork Finisher Hand Name | Role | Phone | + +------+ + PCP | Unavailable | + +------+ + Encounter Details +--------+ + + + + | Date | Type | Department | Care Team | Description | +--------+ + + + + | 10/23/ | Hospital | [facility] | Cal Godinez, | | | 2000 | Encounter | MED CTR XRAY [address] | MD [address] [facility] | | | | | [place] | [place], [place] | | | | | [place] [address] | [id number] | | | | | [phone] | | | +--------+ + + + [...] [place] | | | | | | [address] | | | | | | | | +--------+---------+ + + + documented as of this encounter Visit Diagnoses Not on filedocumented in this encounter"
--- OUTSIDE RECORDS SUMMARY | ~2019-07-23 | XMS | Encounter Summary ---
Demographics + + + | Address | [address] | | | [place] [address] | + + + | Home Phone [...] Team Providers + +------+ + | Care Certified Pathology Assistant Name | Role | Phone | + +------+ + | Bernadette Armendariz PA-C | PCP | | + +------+ + Encounter Details +--------+ + + + + | Date | Type | Department | Care Team | Description | +--------+ + + + + | 02/23/ | Orders Only | [facility] | Provider, | Essential (primary) | | 2018 | | SYSTEM GENERIC OP | [address] | hypertension; Type 2 | | | | [address] | [address] | diabetes mellitus | | | | [address] [place], [place] | [place] [address] | with complications | | | | [address] | | ([facility]); Acute kidney | | | | [phone] | | failure ([facility]); | | | | | | Chronic kidney | | | | | | disease, stage IV | | | | | | (severe) ([facility]); | | | | | | Proteinuria; | | | | | | Secondary | | | | | | hyperparathyroidism | | | | | | of renal origin | | | | | | ([facility]); Vitamin D | | | [...] 2019 | Visit | | [address] [facility] [address] | | | | | | [address] [place], [place] | | | | | | [address] | | | | | | | [...] origin | | | | | | ([facility]) Vitamin D | | | [...] origin | | | | | | ([facility]) Vitamin D | | | [...] | | | | | | (severe) ([facility]) | | | | | | Proteinuria | | | | | | Secondary | | | | | | hyperparathyroidism | | | | | | of renal origin | | | | | | ([facility]) Vitamin D | | | [...] | | | | | | (severe) ([facility]) | | | | | | Proteinuria | | | | | | Secondary | | | | | | hyperparathyroidism | | | | | | of renal origin | | | | | | ([facility]) Vitamin D | | | [...]
--- OUTSIDE RECORDS SUMMARY | ~2019-07-23 | XMS | Encounter Summary ---
Demographics + + + | Address | [address] | | | [place] [address] | + + + | Home Phone | | + + + | Preferred Language | Unknown | + + + | Marital Status | | + + + | Muslim Affiliation | 1041 | + + + | Race | Unknown | + + + | Ethnic Group | Unknown | + + + Author + + + | Author | [facility] | | | and [place] | + + + | Organization | [facility] | | [...] Team Providers + +------+ + | Care Trailer Assembler Name | Role | Phone | + +------+ + | Bernadette Armendariz PA-C | PCP | | + +------+ + Encounter Details +--------+ + + + + | Date | Type | Department | Care Team | Description | +--------+ + + + + | 03/16/ | Orders Only | [facility] | James Pearce MD | Essential (primary) | | 2019 | | NEPRHOLOGY [place] | [address] [place] | hypertension; Type 2 | | | | [address] | [address] [place], [place] | diabetes mellitus | | | | [address] [place], [place] | [address] | with complications | | | | [address] | | (HCC); Acute kidney | | | | [phone] | | failure (HCC) | +--------+ + [...] 2019 | Visit | | [address] [facility] [address] | | | | | | [address] [place], [place] | | | | | | [address] | | | | | | | [...]
--- OUTSIDE RECORDS SUMMARY | ~2019-07-23 | XMS | Encounter Summary ---
Demographics + + + | Address | [address] | | | [place] [address] | + + + | Home Phone [...] Team Providers + +------+ + | Care Cover Operator Name | Role | Phone | + +------+ + | Nathalie Castorena | PCP | | + +------+ + Encounter Details +--------+---------+ + + + | Date | Type | Department | Care Team | Description | +--------+---------+ + + + | 06/22/ | Office | [facility] | James Pearce MD | CKD (chronic kidney | | 2019 | Visit | NEPHROLOGY [place] | [address] [facility] | disease), stage IV | | | | [address] | [address] [facility] [place] | ([facility]) (Primary Dx); | | | | [address] | [address] | Anemia of chronic | | | | [place], [place] | | renal failure, stage | | | | [address] | | 4 (severe) ([facility]); | | | | [phone] | | Essential (primary) | | | [...] | | | ([facility]); Secondary | | | | | | hyperparathyroidism | | | | | | ([facility]); Nephrotic | | | | | [...] LABIRON 82.2 (A) 11/12/2018 LABPROT 4.982 08/07/2018 [id number] 8.5 (A) 11/12/2018 Assessment: Ms. Martin is [...] ED. 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 I sent her for a repeat BMP [...] concerns. Truly yours, James Pearce MD FACP [facility] documented in this enco unter Plan of Treatment +--------+---------+ + + + | Date | Type | Specialty | Care Team | Description | +--------+---------+ + + + | 09/27/ | Office | Nephrology | James Pearce MD | | | 2019 | Visit | | [address] [facility] | | | | | | [address] [place], [place] | | | | | | [address] | | | | | | | [...]
--- OUTSIDE RECORDS SUMMARY | ~2019-07-23 | XMS | Encounter Summary ---
Demographics + + + | Address | [address] | | | [place] [address] | + + + | Home Phone [...] Team Providers + +------+ + | [facility] Main[facility] Former Name | Role | Phone | + +------+ + | Bernadette Armendariz PA-C | PCP | | + +------+ + Encounter Details +--------+ + + + + | Date | Type | Department | Care Team | Description | +--------+ + + + + | 08/05/ | Hospital | [facility] | Conversion | CAD in [place] | | 2019 - | Encounter | [facility] | Transaction, | artery; Congestive | | | | CARE FLOOR [address] | Provider Unknown | heart failure, | | | | [address] | [phone] | unspecified HF | | 2019 | | [place], [place] | | chronicity, | | | | [address] | Brynn Crawford MD | unspecified heart | | | | [phone] | [address] | failure type (HCC); | | | | | [place] [address] | Precordial pain; | | | | | [phone] | Ischemic | | | | | [...] 08/11/181929 Date of Service: 08/10/18941 Status: Signed Lens Fabricating Machine Tender: Gustavo Castorena MD (Physician) [facility] Service: Hospitalist Physician Discharge Summary Patient ID: [...] input(s): ABG Disposition: HOME Follow up: [facility] [address] [place] [address] [place] [id number] Schedule an appointment as soon as possible [...] 1558 Date of Service: 08/11/181499 Status: Signed Lens Fabricating Machine Tender: Cinthya Carmen RN (Registered Nurse) Pt discharge home with family. Pt states understanding about scripts and paperwork. IV d/c. Tele d/c. Family to transport pt home. onver federico Transaction, Provider Unknown - 08/11/2018 12:50 PM PST Case Management by Damaris Canchola RN at 08/11/181249 Author: Damaris Canchola RN Service: (none) Author Type: Registered Nurse Filed: 08/11/181249 Date of Service: 08/11/181249 Status: Signed Lens Fabricating Machine Tender: Damaris Canchola RN (Registered Nurse) Met [...] Date of Service: 08/11/18 1045 Status: Signed Lens Fabricating Machine Tender: Shin Rivera MD (Physician) PCP : [facility] LOS: 5 days Maria Ines [...] was completed later after rounds. Dictation software, Ambient Devices, was used which may contain error for [...] 08/11/18615 Date of Service: 08/11/18614 Status: Signed Lens Fabricating Machine Tender: Francy Beckford RN (Registered Nurse) VSS. [...] 08/10/181751 Date of Service: 08/10/181747 Status: Signed Lens Fabricating Machine Tender: Kaia Penaloza RN (Registered Nurse) Pt [...] Notes by Teena Encinas RD at 08/10/18 2316 Author: Teena Encinas RD Service: (none) Author Type: Registered Dietitian Filed: 08/10/18 7467 Date of Service: 08/10/186 Status: Signed Lens Fabricating Machine Tender: Teena Encinas RD (Registered Dietitian) 08/10/18 2573 Subjective Timepoint Follow up (diet education) Food and Nutrition Knowledge Area(s) and Level of Knowledge In to see pt for renal cardiac diet. Pt K+ WNL at this time but hx hyperkalemia. Discussed high potassium foods and provided list from [facility]. Discussed th at she does not need to limit at this time with ARF and WNL K+ but may need to in the future . Provided low sodium handout from [facility] and discussed. Pt reports that she [...] Date of Service: 08/10/18 1209 Status: Signed Lens Fabricating Machine Tender: Shin Rivera MD (Physician) PCP : [facility] LOS: 4 days Maria Ines [...] was completed later after rounds. Dictation software, Ambient Devices, was used which may contain error for [...] 0957 Date of Service: 08/10/18951 Status: Signed Lens Fabricating Machine Tender: Gustavo Castorena MD (Physician) [facility] Service: Hospitalist Progress Note Hospital Day: LOS: 4 days SUBJECTIVE Still c/o back pain. Slept well Did not see ingredient scaler HPI: Ms. Maria Ines Martin is a [...] and management as well as Computerized Physician Shop Technician. Disposition: Home ? Code Status: Full Code Gustavo Castorena MD 08/10/2018 9:57 AM onversion Transactio n, Provider Unknown - 08/10/2018 6:23 AM PST Nurse Progress Note by Francy Beckford RN at 08/10/18622 Author: Francy Beckford RN Service: (none) Author Type: Registered Nurse Filed: 08/10/18627 Date of Service: 08/10/18622 Status: Signed Lens Fabricating Machine Tender: Francy Beckford RN (Registered Nurse) VSS. [...] 08/09/181751 Date of Service: 08/09/181749 Status: Signed Lens Fabricating Machine Tender: Kaia Penaloza RN (Registered Nurse) VSS [...] Notes by Shin Rivera MD at 08/09/18 1369 Author: Shin Rivera MD Service: Nephrology Author Type: Physician Filed: 08/10/18 0751 Date of Service: 08/09/181747 Status: Signed Lens Fabricating Machine Tender: Shin Rivera MD (Physician) PCP : [facility] LOS: 3 days Maria Ines [...] outpatient follow up with Dr. Pearce in [place]. Strict low K diet. Diet 2 gm [...] was completed later after rounds. Dictation software, Ambient Devices, was used which may contain error for [...] 1421 Date of Service: 08/09/181415 Status: Signed Lens Fabricating Machine Tender: Gustavo Castorena MD (Physician) [facility] Service: Hospitalist Progress Note Hospital Day: LOS: [...] and management as well as Computerized Physician Shop Technician. Disposition: Home ? Code Status: Full Code Gustavo Castorena MD 08/09/2018 2:16 PM onversion Transactio n, Provider Unknown - 08/09/2018 6:26 AM PST Nurse Progress Note by Francy Beckford RN at 08/09/18 9629 Author: Francy Beckford RN Service: (none) Author Type: Registered Nurse Filed: 08/09/18 2152 Date of Service: 08/09/18625 Status: Signed Lens Fabricating Machine Tender: Francy Beckford RN (Registered Nurse) Patient [...] 08/08/182000 Date of Service: 08/08/182000 Status: Signed Lens Fabricating Machine Tender: Nimo Heredia RN (Registered Nurse) No [...] Date of Service: 08/08/18 164 Status: Signed Lens Fabricating Machine Tender: Brynn Crawford MD (Physician) [facility] Service: Cardiology/[facility] Progress Note RE: Maria Ines [...] Mild mitral regurgitation is present. Scores: 1. [id number]-Hdaf Score: 3 2. Bhutanese Anginal Score: 3 3. NYHA Score: 2 [...] 1541 Date of Service: 08/08/181535 Status: Signed Lens Fabricating Machine Tender: Damaris Canchola RN (Registered Nurse) Tc from [facility]([phone]), CM with [facility] re d/c plan, infor med that d/c date is still unknown. [facility] transport dept, states they dont provide transportation on wknds, but would need to call [facility] [place] transport call . If [facility] is not able to provide transportation, need to ask family or pay for taxi. Kathe Gustavo Lara MD - 08/08/2018 2:53 PM PSTFormatting of this note might be different from the or iginal. Progress Notes by Gustavo Castorena MD at 08/08/18 3526 Author: Gustavo Castorena MD Service: Internal Medicine Author Type: Physician Filed: 08/08/181456 Date of Service: 08/08/181452 Status: Signed Lens Fabricating Machine Tender: Gustavo Castorena MD (Physician) [facility] Service: Hospitalist Progress Note Hospital Day: LOS: [...] LIST Principal Problem: GRACIELA (acute kidney injury) ([facility]) Active Problems: Ischemic cardiomyopathy Chronic systolic heart failure (HCC) Hyperkalemia Essential hypertension Type 2 diabetes mellitus with complication, with long-term current use of insulin ([facility]) ASSESSMENT / PLAN Heart failure [...] and management as well as Computerized Physician Shop Technician. Disposition: Home ? Code Status: Full Code Gustavo Castorena MD 08/08/2018 2:53 PM Shin Vale MD - 08/08/2018 11:26 AM PST Progress Notes by Shin Rivera MD at 08/08/18 1126 Author: Shin Rivera MD Service: Nephrology Author Type: Physician Filed: 08/10/18 1223 Date of Service: 08/08/18 1126 Status: Signed Lens Fabricating Machine Tender: Shin Rivera MD (Physician) PCP : [facility] LOS: 2 days Maria Ines [...] was completed later after rounds. Dictation software, Ambient Devices, was used which may contain error for similar sounding words nabor jackman after review. Personal communication is requested for any clarification. Prognosis is guarded in view of multiple comorbid illnesses and acute on chronic renal fail ure including but not limited to potential need for COLLECTION SUPPORT SPECIALIST and . amLODIPine 7.5 mg Oral Daily [...] 0700 Date of Service: 08/08/1859 Status: Signed Lens Fabricating Machine Tender: Little Infante RN (Registered Nurse) Pt [...] 08/07/182005 Date of Service: 08/07/182005 Status: Signed Lens Fabricating Machine Tender: Nimo Heredia RN (Registered Nurse) No [...] Management by Damaris Canchola RN at 08/07/18 8784 Author: Damaris Canchola RN Service: (none) Author Type: Registered Nurse Filed: 08/07/18 1202 Date of Service: 08/07/18 1156 Status: Signed Lens Fabricating Machine Tender: Damaris Canchola RN (Registered Nurse) Tc to Kathrin([phone]), CM with [facility] re d/c plan, LMTCB Per pt, wants CM to call [facility] transportation assistant re transport back [phone]. Per Adilene, for wknd medicaid transport call Kathe onver federico Transaction, Provider Unknown - 08/07/2018 11:47 AM PST Case Management by Damaris Canchola RN at 08/07/18 1147 Author: Damaris Canchola RN Service: (none) Author Type: Registered Nurse Filed: 08/07/18 1149 Date of Service: 08/07/18 1147 Status: Signed Lens Fabricating Machine Tender: Damaris Canchola RN (Registered Nurse) 08/07/18 [...] with spouse and child(disabled chi ld) in [place]. Pt states she is indep with all her adl's, but does use a cane if needed f or outdoors as she has vision deficits.no home o2, no anticoagulants, no HD. Plans to return home Patient's PCP is: [facility] Patient's insurance[facility] Coverage concerns: Medication coverage/concerns: [...] 1058 Date of Service: 08/07/181049 Status: Signed Lens Fabricating Machine Tender: Gustavo Castorena MD (Physician) [facility] Service: Hospitalist Progress Note Hospital Day: LOS: [...] and management as well as Computerized Physician Shop Technician. Disposition: Home ? Code Status: Full Code Gustavo Castorena MD 08/07/2018 10:50 AM Brynn Hanna MD - 8:47 AM PST Progress Notes by Brynn Crawford MD at 08/07/18 3266 Author: Brynn Crawford MD Service: Cardiology Author Type: Physician Filed: 08/07/18 0914 Date of Service: 08/07/18 0847 Status: Signed Lens Fabricating Machine Tender: Brynn Crawford MD (Physician) [facility] Service: Cardiology/[facility] Progress Note RE: Maria Ines [...] Mild mitral regurgitation is present. Scores: 1. [id number] Score: 2. Bhutanese Anginal Score: 3. NYHA Score: ASSESSMENT: 1. [...] than what it was reported previously at [facility]. Regardless with her history of [...] 08/07/18626 Date of Service: 08/07/18625 Status: Signed Lens Fabricating Machine Tender: Agustina Cade RN (Registered Nurse) End of shift audit complete. AGUSTINA CADE RN onver federico Transaction, Provider Unknown - 08/06/2018 5:18 PM PST Nurse Progress Note by Jacquie Miranda RN at 08/06/181717 Author: Jacquie Miranda RN Service: (none) Author Type: Registered Nurse Filed: 08/06/181718 Date of Service: 08/06/181717 Status: Signed Lens Fabricating Machine Tender: Jacquie Miranda RN (Registered Nurse) End of shift chart check completed Gustavo Lara MD - 08/06/2018 1:52 PM PSTFormatting of this note might be different from the or iginal. Progress Notes by Gustavo Castorena MD at 08/06/18 097 Author: Gustavo Castorena MD Service: Internal Medicine Author Type: Physician Filed: 08/06/18 1351 Date of Service: 08/06/18 791 Status: Signed Lens Fabricating Machine Tender: Gustavo Castorena MD (Physician) [facility] Service: Hospitalist Progress Note Hospital Day: LOS: [...] and management as well as Computerized Physician Shop Technician. Disposition: Home ? Code Status: Full Code Gustavo Castorena MD 08/06/2018 1:55 PM onversion Transactio n, Provider Unknown - 08/06/2018 12:04 PM PST Progress Notes by Anjali Kerr RD at 08/06/18 1204 Author: Anjali Kerr RD Service: (none) Author Type: Registered Dietitian Filed: 08/06/18 1203 Date of Service: 08/06/18 120 Status: Signed Lens Fabricating Machine Tender: Anjali Kerr RD (Registered Dietitian) 08/06/18 9218 Subjective Timepoint Admit Pt c/o Pt triggered for dysphagia. Pt admitted for acute renal failure. 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 Pt went ov er her hx of [...] any concerns for dysphag ia consider ordering SINTER PRESS OPERATOR eval. Anthropometrics Weight change Pt's BMI is 34 and pt is 166% of IBW. Pt reports she has gained wt over the p ast 4 months after stopping meth. Biochemical data, medical tests, and procedures reviewed Biochemical data, medical tests, and procedures reviewed Labs reviewed. Recommendations Recommended energy needs Continue diet as ordered with modications per SINTER PRESS OPERATOR, if needed. Enco urage po intake as [...] 0936 Date of Service: 08/06/18850 Status: Signed Lens Fabricating Machine Tender: Brynn Crawford MD (Physician) [facility] Service: Cardiology/[facility] Progress Note RE: Maria Ines [...] prolonged QRS Imaging Chest X-Ray: Scores: 1. [id number] Score: 2. Bhutanese Anginal Score: 3. NYHA Score: ASSESSMENT: 1. [...] 08/06/18517 Date of Service: 08/06/18517 Status: Signed Lens Fabricating Machine Tender: Cheryl Patel RN (Registered Nurse) End of shift audit complete. onver federico Transaction, Provider Unknown - 08/05/2018 5:56 PM PST Nurse Progress Note by Ghada Crawley RN at 08/05/181755 Author: Ghada Crawley RN Service: (none) Author Type: Registered Nurse Filed: 08/05/181755 Date of Service: 08/05/18 1756 Status: Signed Lens Fabricating Machine Tender: Ghada Crawley RN (Registered Nurse) End of shift review complete GHADA CRAWLEY RN Brynn Merrill MD - 08/05/2018 1:38 PM PSTFormatting of this note might be different from the orig inal. Progress Notes by Brynn Crawford MD at 08/05/18 4962 Author: Brynn Crawford MD Service: Cardiology Author Type: Physician Filed: 08/05/18 8869 Date of Service: 08/05/18 4809 Status: Signed Lens Fabricating Machine Tender: Brynn Crawford MD (Physician) Mrs. Martin [...] disco mfort and was seen by Dr. iVc Gaitan in [facility] for evaluation. An echoca rdiogram was [...] cant ST or T-wave abnormalities. Scores: 1. [id number]-Rwwz Score: 4 2. Bhutanese Anginal Score: 2 3. NYHA Score: 2-3 [...] | | | | | [address] | | | | | | [address] | | | | | | | [...] | | | Fingerstick | performed at [facility];[address] | | LAB | | | | [address];[place] | | | | | | [address] | | | | + + + [...] | | | Fingerstick | performed at [facility];[address] | | LAB | | | | [address];[place], [place] | | | | | | [address] | | | | + + + [...] | | | | performed at [facility], [address] | | | | | | [address], | | | | | | [place] [address] | | | | + + + [...] | | | Fingerstick | performed at [facility];[address] | | LAB | | | | [address];[place], [place] | | | | | | [address] | | | | + + + [...] | | | Fingerstick | performed at [facility];[address] | | LAB | | | | [address];[place], [place] | | | | | | [address] | | | | + + + [...] | | | Fingerstick | performed at [facility];[address] | | LAB | | | | [address];[place], [place] | | | | | | [address] | | | | + + + [...] | | | Fingerstick | performed at [facility];[address] | | LAB | | | | [address];[place] | | | | | | [address] | | | | + + + [...] EXTERNAL | | | | performed at [facility], [address] | | LAB | | | | [address], | | | | | | [place] [address] | | | | + + + [...] | | | | performed at [facility], [address] | | | | | | [facility], | | | | | | [place] [address] | | | | + + + [...] | | | Fingerstick | performed at [facility];[address] | | LAB | | | | [address];[place], [place] | | | | | | [address] | | | | + + + [...] | | | Fingerstick | performed at [facility];[address] | | LAB | | | [address];[place], [place] | | | | | | [address] | | | | + + + [...] | | | Fingerstick | performed at [facility];[address] | | LAB | | | | [address];[place] | | | | | | [address] | | | | + + + [...] EXTERNAL | | | | performed at [facility], [address] | | LAB | | | | [address], | | | | | | [place] [address] | | | | + + + [...] EXTERNAL | | | | performed at [facility], [address] | | LAB | | | | [address], | | | | | | [place] [address] | | | | + + + [...] | | | | performed at [facility], [address] | | | | | | [facility], | | | | | | [place] [address] | | | | + + + [...] | | | Fingerstick | performed at [facility];[address] | | LAB | | | | [address];[place], [place] | | | | | | [address] | | | | + + + [...] | | | Fingerstick | performed at [facility];[address] | | LAB | | | | [address];[place] | | | | | | [address] | | | | + + + [...] radial artery and a | | | 6-Swazi sheath was placed. The JL-3.5 catheter was [...] right radial artery and a | | 6-Swazi sheath was placed. The JL-3.5 catheter was [...] | | | Fingerstick | performed at [facility];[address] | | LAB | | | | [address];[place] | | | | | | [address] | | | | + + + + + + + + | Specimen | + + | | + + + +---------+ + + | Performing | Address | City/State/Zipcode | Phone Number | | Organization | | | | + +---------+ + + | EXTERNAL LAB | | | | + +---------+ + + [facility] (08/08/2018 12:12 PM PST) + + + + + + | Component | Value | Ref Range | Performed | Pathologist | | | | | At | Signature | + + + + + + | Ig [facility] | 96.5 (H)Comment: | mg/L | EXTERNAL [...] + + + + + + | [facility] | 1.50Comment: Reference | | EXTERNAL | | | a Free | range: 0.26 to | | LAB | | | Light Chain | 1.65Testing performed at | | | | | Ratio | [facility], [address] | | | | | | [place] | | | | | | [address] | | | | + + + [...] | | Comp 4 | performed at [facility], [address] | | LAB | | | | [address], | | | | | | [place] [address] | | | | + + + [...] at | | | | | | [facility], [address] [facility] | | | | | | [place] | | | | | | [address] | | | | + + + [...] | | | | | [place] [address] | | | | + + + [...] | | | | | | at [facility], [address] | | | | | | [address], | | | | | | [place] [address] | | | | + + + [...] | | | | performed at [facility], [address] | | | | | | [facility], | | | | | | [place] [address] | | | | + + + [...] | | | | | performed at [facility], [address] | | | | | | [address] | | | | | | [place] [address] | | | | + + + [...] | | | | | with both IA-3 and | | | | | | [...] | | | 3 | performed by [facility], | | | | | | [address], | | | | | | [facility] [address] | | | | + + + [...] | | | | | | [place] [address] | | | | + + + [...] | | Quant, CSF | performed at [facility], | | | | | | [address], [address], | | | | | | [place] [address] | | | | + + + [...] EXTERNAL | | | | performed at [facility], [address] | | LAB | | | | [address], | | | | | | [place] [address] | | | | + + + [...] EXTERNAL | | | | performed at [facility], [address] | | LAB | | | | [address], | | | | | | [place] [address] | | | | + + + [...] | | | | | [place] [address] | | | | + + + [...] | | | Fingerstick | performed at [facility];[address] | | LAB | | | | [address];[place], [place] | | | | | | [address] | | | | + + + [...] | | | Fingerstick | performed at [facility];[address] | | LAB | | | | [address];[place], [place] | | | | | | [address] | | | | + + + [...] EXTERNAL | | | | performed at [facility], [address] | | LAB | | | | [facility], | | | | | | [place] [address] | | | | + + + [...] EXTERNAL | | | | performed at [facility], [address] | | LAB | | | | [address], | | | | | | [place] [address] | | | | + + + [...] | | | | performed at [facility], [address] | | | | | | [facility], | | | | | | [place] [address] | | | | + + + [...] | | | Fingerstick | performed at [facility];[address] | | LAB | | | | [address];[place] | | | | | | [address] | | | | + + + [...] | | | Fingerstick | performed at [facility];[address] | | LAB | | | | [address];[place], [place] | | | | | | [address] | | | | + + + [...] | | | | | performed at [facility] | | | | | | [facility];[place] | | | | | | [address] | | | | + + + [...] | | | Fingerstick | performed at [facility];[address] | | LAB | | | | [address];[place] | | | | | | [address] | | | | + + + [...] | | at Ratio | performed at [facility], [address] | | LAB | | | | [facility], | | | | | | [place] [address] | | | | + + + [...] | | | | performed at [facility], [address] | | | | | | [facility], | | | | | | [place] [address] | | | | + + + [...] | | | | performed at [facility], [address] | | | | | [address], | | | | | | [place] [address] | | | | + + + [...] | | | | performed at [facility], [address] | | | | | [address], | | | | | | [place] [address] | | | | + + + [...] | | | Fingerstick | performed at [facility];[address] | | LAB | | | | [address];[place], [place] | | | | | | [address] | | | | + + + [...] EXTERNAL | | | | performed at [facility], [address] | | LAB | | | | [address], | | | | | | [place] [address] | | | | + + + [...] EXTERNAL | | | | performed at [facility], [address] | | LAB | | | | [address], | | | | | | [place] [address] | | | | + + + [...] | | | | performed at [facility], [address] | | | | | | [facility], | | | | | | [place] [address] | | | | + + + [...] | | | Fingerstick | performed at [facility];[address] | | LAB | | | | [address];[place], [place] | | | | | | [address] | | | | + + + [...] | | | Fingerstick | performed at [facility];[address] | | LAB | | | | [address];[place] | | | | | | [address] | | | | + + + [...] | A Brock: 0.60 m/s TV Dec [place]: 2.33 m/s2 TV Dec Time: | | | 240.52 ms TV E Brock: 0.56 m/s TV E/A Ratio: 0.92 | | | Pit Worker Power Shovel: GONZALO Authenticated by: Brynn Crawford MD Report Date/Time: | | | -- [id number]:58:25 | | + + + + + [...] mlLAESV Index (A-L): 40.23 ml/m2LAAs A2C: 24.44 [id number] A-L | | A2C: 74.48 mlLALs A2C: 6.81 cmLAAs A4C: 21.96 nm3FQILS A-L A4C: 68.67 mlLALs | | A4C: 5.96 cmRAAd: 13.73 [id number] A-L: 33.61 mlRAEDV MOD: 31.44 mlRALd: 4.76 | | cmEPSS: 2.39 cmAV maxP.50 mmHgAV meanP.57 mmHgAV Vmax: 1.76 m/John | | Vmean: 1.20 m/John VTI: 39.54 cmAVA Vmax: 2.19 cm2AVA (VTI): 2.37 py9ZPFU Vmax: | | 0.00 cm2/m2AVAI (VTI): 0.00 [...] 25.31 cmTV A Brock: 0.60 m/sTV Dec [place]: 2.33 m/s2TV | | Dec Time: 240.52 msTV E Brock: 0.56 m/sTV E/A Ratio: 0.92 Pit Worker Power Shovel: | | GDAuthenticated by: Brynn Crawford MDReport Date/Time: [id number]:58:25 | | IMPRESSION: 1. Overall left ventricular [...] A Brock: 0.60 m/s | |TV Dec [place]: 2.33 m/s2 | |TV Dec Time: 240.52 ms | |TV E Brock: 0.56 m/s | |TV E/A Ratio: 0.92 | | | |Pit Worker Power Shovel: GD | |Authenticated by: Brynn Crawford MD | |Report Date/Time: -- [id number]:25 | | | |IMPRESSION: | |1. Overall [...] | | | | performed at [facility], [address] | | | | | | [address], | | | | | | [place] [address] | | | | + + + [...] - 1.030 | EXTERNAL | | | [place] | | | LAB | | + [...] | | Urine | performed at [facility], [address] | | LAB | | | | Janet Saeed, | | | | | | [place] [address] | | | | + + + [...] EXTERNAL | | | | performed at [facility];888 | mmol/L | LAB | | | | Talita Saeed;[place], [place] | | | | | | [address] | | | | + + + [...] | | | Fingerstick | performed at [facility];[address] | | LAB | | | | [address];[place], [place] | | | | | | [address] | | | | + + + [...] EXTERNAL | | | | performed at [facility], [address] | | LAB | | | | Janet Saeed, | | | | | | [place] [address] | | | | + + + [...] | | | | | Monty [place] [address] | | | | + + + [...] EXTERNAL | | | | performed at [facility], [address] | | LAB | | | | Janet Saeed, | | | | | | [place] [address] | | | | + + + [...] | | | | performed at [facility], [address] | | | | | | [facility], | | | | | | [place] [address] | | | | + + + [...] | | | | | performed at [facility];888 | | | | | | [facility];[place], [place] | | | | | | [address] | | | | + + + [...] | | | Fingerstick | performed at [facility];[address] | | LAB | | | | [address];[place], [place] | | | | | | [address] | | | | + + + [...] EXTERNAL | | | | performed at [facility];888 | mmol/L | LAB | | | | Talita Saeed;[place] | | | | | | [address] | | | | + + + [...] | | | Fingerstick | performed at [facility];888 | | LAB | | | | Talita Saeed;[place] | | | | | | [address] | | | | + + + [...] LAB | | | | performed at [facility];[address] | | | | | | [address];[place], [place] | | | | | | [address] | | | | + + + [...] | | | Basophils | performed at [facility];[address] | K/uL | LAB | | | | [address];[place], [place] | | | | | | [address] | | | | + + + [...] | | | | | | MDRD IDMD traceable | | | | | | equation.Testing | | | | | | performed at [facility] | | | | | | [facility];[place], [place] | | | | | | [address] | | | | + + + [...] Diagnosis | + + | CAD in conf[place]erated [place] artery Coronary atherosclerosis of conf[place] coronary artery | + + | Congestive heart failure, unspecified HF chronicity, unspecified heart failure type | | (HCC) | + + | Precordial pain | + + | Ischemic cardiomyopathy Other specified forms of chronic ischemic heart disease | + + documented in this encounter
--- OUTSIDE RECORDS SUMMARY | ~2019-07-23 | XMS | Encounter Summary ---
Demographics + + + | Address | [address] | | | [place] [address] | + + + | Home Phone [...] Team Providers + +------+ + | Care Banking Officer Name | Role | Phone | + +------+ + | Bernadette Armendariz PA-C | PCP | | + +------+ + Encounter Details +--------+ + + + + | Date | Type | Department | Care Team | Description | +--------+ + + + + | 03/18/ | Orders Only | [facility] | James Pearce MD | Essential (primary) | | 2019 | | NEPHROLOGY [place] | [address] [place] | hypertension | | | | [address] [place] | [address] [place], [place] | (Primary Dx); | | | | [address] [place], [place] | [address] | Secondary | | | | [address] | | hyperparathyroidism | | | | [phone] | | (HCC); CKD (chronic | | | | | | kidney disease), | | | | | | stage IV ([facility]); | | | | | | Anemia of chronic | | | | | | renal failure, stage | | | | | | 4 (severe) ([facility]); | | | | | | Vitamin [...] | Visit | | [address] [facility] | | | | | | [address] [place], [place] | | | | | | [address] | | | | | | | [...] | | | | 4 (severe) ([facility]) | | + +------+--------+ + + | [...]
--- OUTSIDE RECORDS SUMMARY | ~2019-07-23 | XMS | Encounter Summary ---
Demographics + + + | Address | [address] | | | [place] [address] | + + + | Home Phone [...] Providers + +------+ + | Care Auto Damage Adjuster Name | Role | Phone | + +------+ + | Bernadette Armendariz PA-C | PCP | | + +------+ + Encounter Details +--------+---------+ + + + | Date | Type | Department | Care Team | Description | +--------+---------+ + + + | 03/16/ | Office | [facility] | James Pearce MD | CKD (chronic kidney | | 2019 | Visit | NEPHROLOGY [place] | [address] 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 P M PDT documented in this encounter Progress Notes James Pearce MD - 03/16/2019 2:10 PM PDT Progress Notes by James Pearce MD at 11/17/18 [id number] Author: James Pearce MD Service: (none) Author Type: Physician Filed: 11/17/18 3714 Encounter Date: 11/17/2018 Status: Signed Senior Game Developer: James Pearce MD (Physician) Patient Active Problem [...] LABIRON 82.2 (A) 11/12/2018 LABPROT 4.982 08/07/2018 [id number] 8.5 (A) 11/12/2018 Assessment: Ms. Martin is [...] RFP, CBC, Iron studies, Ferritin, intact PTH, 76-zbonmdy-mbpqfap D befor e she comes back in 3 months. Thank you Colleague for the opportunity to see this patient in F/U today. Please do not hes itate to call me at any time with questions or concerns. Truly yours, James Pearce MD [facility] MARIA LUISA ERLINDA documented in this enco unter Plan of Treatment +--------+---------+ + + + | Date | Type | Specialty | Care Team | Description | +--------+---------+ + + + | 09/27/ | Office | Nephrology | James Pearce MD | | | 2019 | Visit | | [address] [facility] | | | | | | [address] [place], [place] | | | | | | [address] | | | | | | | [...]
--- OUTSIDE RECORDS SUMMARY | ~2019-07-23 | XMS | Encounter Summary ---
Demographics + + + | Address | [address] | | | [place] [address] | + + + | Home Phone [...] Team Providers + +------+ + | Care Stud Beef Cattle Farmer Name | Role | Phone | [...] [address] | | | | | [place], | [address] [place] | | | | | [place] [address] | [place] [address] | | | | | [phone] | [phone] | | | | | | | [...] 2020 | Visit | | [address] [facility] | | | | | | [address] [place] | | | | | | [address] | | | | | | | [...]
--- OUTSIDE RECORDS SUMMARY | ~2019-07-23 | XMS | Encounter Summary ---
Demographics + + + | Address | [address] | | | [place] [address] | + + + | Home Phone [...] Team Providers + +------+ + | Care Marina Sales And Service Supervisor Name | Role | Phone | [...] + + | 03/16/ | Documentati | [facility] | Luis, | Results (03/13/19) | | 2019 | on | NEPHROLOGY [place] | [facility] | | | | | [address] | Upholstery Department Supervisor | | | | | [facility] [address] | | | | | | [place], [place] | | | | | | [address] | | | | | | [phone] | | | +--------+ + + + [...] 2019 | Visit | | [address] [facility] | | | | | | 160 [place], [place] | | | | | | [address] | | | | | | | [...] 1.005 - 1.030 | | | | [place] | | | | | + + [...]
--- OUTSIDE RECORDS SUMMARY | ~2019-07-23 | XMS | Encounter Summary ---
Demographics + + + | Address | [address] | | | [place] [address] | + + + | Home Phone [...] | + + +---------+ + | Sachinirene Hebertjenane | ECON | Unknown | | + + +---------+ + | Bryan Martin | ECON | Unknown | | + + +---------+ + Care Team Providers + +------+ + | Care Employee Development Specialist Name | Role | Phone | + +------+ + | Bernadette Armendariz PA-C | PCP | | + +------+ + Encounter Details +--------+ + + + + | Date | Type | Department | Care Team | Description | +--------+ + + + + | 11/12/ | Orders Only | [facility] | James Pearce MD | | | 2019 | | NEPHROLOGY [place] | [address] [place] | | | | | [address] [place] | [address] [place], [place] | | | | | [address] [facility] [place] | [address] | | | | | [address] | | | | | | [phone] | | | +--------+ + + + [...] 2020 | Visit | | [address] [facility] | | | | | | [address] [place], [place] | | | | | | [address] | | | | | | | [...] | | | LAB | | | [place]DI[place] | | | | | + +---------+ [...]
--- OUTSIDE RECORDS SUMMARY | ~2019-07-23 | XMS | Encounter Summary ---
Demographics + + + | Address | [address] | | | [place] [address] | + + + | Home Phone [...] + +------+ + | Care Data Systems Analyst Name | Role | Phone | [...] + + | 07/08/ | Telephone | [facility] | Cheryl Livingston | Other (MANNY started | | 2018 | | NEPRHOLOGY TIM Alvarez RN | for IV Feraheme); | | | | [address] | | Other (IV Feraheme | | | | [address] | | approved from | | | | [id number] | | 07/09/19-10/08/19) | | | | [phone] | | | +--------+ + + + [...] Visit | | [address] [facility] | | | | | | [address] [place] | | | | | | [address] | | | | | | | | +--------+---------+ + + + documented as of this encounter Visit Diagnoses Not on filedocumented in this encounter"
--- OUTSIDE RECORDS SUMMARY | ~2019-07-23 | XMS | Encounter Summary ---
Demographics + + + | Address | [address] | | | [place] [address] | + + + | Home Phone [...] Team Providers + +------+ + | Care Instructor Wastewater Treatment Plant Name | Role | Phone | + [...] + + | 03/10/ | Telephone | [facility] | Сергей Gaitan | Other (procedure | | 2017 | | [address] | MD Don [address] | cancellation) | | | | [place], | [address] [place] | | | | | [place] [address] | [place] [address] | | | | | [phone] | [phone] | | | | | | | [...] 2020 | Visit | | [address] [facility] | | | | | | [address] [place] | | | | | | [address] | | | | | | | | +--------+---------+ + + + documented as of this encounter Visit Diagnoses Not on filedocumented in this encounter"
--- OUTSIDE RECORDS SUMMARY | ~2019-07-23 | XMS | Encounter Summary ---
Demographics + + + | Address | [address] | | | [place] [address] | + + + | Home Phone [...] Team Providers + +------+ + | Care Acid Recovery Operator Name | Role | Phone | + +------+ + | Nathalie Castorena | PCP | | + +------+ + Encounter Details +--------+ + + + + | Date | Type | Department | Care Team | Description | +--------+ + + + + | 06/22/ | Orders Only | [facility] | James Pearce MD | Essential (primary) | | 2019 | | NEPHROLOGY [place] | [address] [place] | hypertension | | | | [address] | [address] [place], [place] | (Primary Dx); Anemia | | | | [address] | [address] | of chronic renal | | | | [place], [place] | | failure, stage 4 | | | | [address] | | (severe) ([facility]); CKD | | | | [phone] | | (chronic kidney | | | [...] 2019 | Visit | | [address] [facility] [place] | | | | | | 160 [place], [place] | | | | | | [address] | | | | | | | [...]
--- OUTSIDE RECORDS SUMMARY | ~2019-07-23 | XMS | Encounter Summary ---
Demographics + + + | Address | [address] | | | [place] [address] | + + + | Home Phone [...] Team Providers + +------+ + | Care Photo Studio Assistant Name | Role | Phone | + +------+ + | Bernadette Armendariz PA-C | PCP | | + +------+ + Encounter Details +--------+ + + + + | Date | Type | Department | Care Team | Description | +--------+ + + + + | 08/04/ | Orders Only | [facility] | Brynn Crawford MD | | | 2019 | | CARDIOLOGY [place] | [address] | | | | | [address] | [place] [address] | | | | | [place], [place] | [phone] | | | | | [address] | | | | | | [phone] | | | +--------+ + + + [...] 2020 | Visit | | [address] [facility] | | | | | | [address] [place] | | | | | | [address] | | | | | | | [...]
--- OUTSIDE RECORDS SUMMARY | ~2019-07-23 | XMS | Encounter Summary ---
Demographics + + + | Address | [address] | | | [place] [address] | + + + | Home Phone [...] Team Providers + +------+ + | Care Coordinator Volunteer Services Name | Role | Phone | + +------+ + | Nathalie Castorena | PCP | | + +------+ + Encounter Details +--------+ + + + + | Date | Type | Department | Care Team | Description | +--------+ + + + + | 03/10/ | Orders Only | [facility] | James Pearce MD | | | 2018 | | NEPHROLOGY [place] | [address] [place] | | | | | [address] | 160 [facility] [place] | | | | | [facility] [address] | [address] | | | | | [place], [place] | | | | | | [address] | | | | | | [phone] | | | +--------+ + + + [...] 2020 | Visit | | [address] [facility] | | | | | | 160 [place], [place] | | | | | | [address] | | | | | | | | +--------+---------+ + + + documented as of this encounter Visit Diagnoses Not on filedocumented in this encounter"
--- OUTSIDE RECORDS SUMMARY | ~2019-07-23 | XMS | Encounter Summary ---
Demographics + + + | Address | [address] | | | [place] [address] | + + + | Home Phone [...] Team Providers + +------+ + | Care Arch Pad Cementer Name | Role | Phone | + +------+ + | Bernadette Armendariz PA-C | PCP | | + +------+ + Encounter Details +--------+ + + + + | Date | Type | Department | Care Team | Description | +--------+ + + + + | 12/02/ | Emergency | [facility] | [facility] | | | 2019 - | | MEDICAL CENTER | MD [address] | | | | | EMERGENCY CENTER | Talita Saeed | | | 12/03/ | | [address] | [place] [address] | | | 2018 | | [place], [place] | [phone] | | | | | [address] | | | | | | [phone] | | | +--------+ + + + [...] 2019 | Visit | | [address] [facility] | | | | | | [address] [place] | | | | | | [address] | | | | | | | | +--------+---------+ + + + documented as of this encounter Visit Diagnoses Not on filedocumented in this encounter"
--- OUTSIDE RECORDS SUMMARY | ~2019-07-23 | XMS | Encounter Summary ---
Demographics + + + | Address | [address] | | | [place] [address] | + + + | Home Phone [...] Team Providers + +------+ + | Care Canine Deputy Name | Role | Phone | + +------+ + | Bernadette Armendariz PA-C | PCP | | + +------+ + Encounter Details +--------+ + + + + | Date | Type | Department | Care Team | Description | +--------+ + + + + | 02/17/ | Abstract | [facility] | Сергей Gaitan | Congestive heart | | 2018 | | CARDIOLOGY [address] | MD Don [address] | failure, unspecified | | | | [address], | [address] [place] | HF chronicity, | | | | [place] [address] | [place] [address] | unspecified heart | | | | [phone] | [phone] | failure type (HCC) | | | [...] 09/27/ | Office | Nephrology | James Perace MD | | | 2020 | Visit | | [address] [facility] | | | | | | [facility] | | | | | | [address] | | | | | | | [...]
--- OUTSIDE RECORDS SUMMARY | ~2019-07-23 | XMS | Encounter Summary ---
Demographics + + + | Address | [address] | | | [place] [address] | + + + | Home Phone [...] + + | 07/07/ | Documentati | [facility] | Smith, | Results (07/02/19) | | 2019 | on | [facility] | [facility] | | | | | [address] | Medical Claims Examiner | | | | | 160 [place], [place] | | | | | | [address] | | | | | | [phone] | | | +--------+ + + + [...] | | | | | | 160 [place], [place] | | | | | | [address] | | | | | | | [...]
--- OUTSIDE RECORDS SUMMARY | ~2019-07-23 | XMS | Encounter Summary ---
Demographics + + + | Address | [address] | | | [place] [address] | + + + | Home Phone [...] Team Providers + +------+ + | Care Spinner Concrete Pipe Name | Role | Phone | + [...] [address] | | | | | [place], [place] | [address] | | | | | [address] | | | | | | [phone] | | | +--------+ + + + [...] [place] | | | | | | [address] | | | | | | | [...] MV A Brock: 0.82 m/s MV Dec Lanier: 7.33 | | | m/s2 MV DecT: [...] | | | TR Vmax: 3.14 m/s Locomotive Driver: ZORA Authenticated by: | | | TAMARA [...] cmLVIDd: 5.42 cmLVPWd: 0.88 cmLVOT Area: 3.30 bk6AXMT Diam: | | 2.05 cm%FS: 19.68 %EF(Teich): [...] (A-L): 25.38 ml/m2LAAs | | A2C: 14.99 [id number] A-L A2C: 42.95 mlLALs A2C: 4.44 cmLAAs A4C: 15.41 [id number] | | A-L A4C: 43.34 mlLALs A4C: 4.65 cmRAAs: 12.68 cm5FWMHC A-L: 35.28 mlRAESV MOD: | | 33.87 mlRALs: 3.87 cmTAPSE: 1.84 cmAV maxP.42 mmHgAV meanP.69 mmHgAV | | Vmax: 1.36 m/John Vmean: 0.90 m/John VTI: 23.16 cmAVA Vmax: 2.43 cm2AVA (VTI): | | 2.55 ky4AUWJ (Vmax): 0.00 cm2/m2AVAI (VTI): 0.00 cm2/m2LVOT maxP.01 mmHgLVOT | | meanP.12 mmHgLVSI Dopp: 34.03 ml/m2LVSV Dopp: 59.22 mlLVOT Vmax: 1.00 | | m/sLVOT Vmean: 0.69 m/sLVOT VTI: 17.90 cmMV A Brock: 0.82 m/sMV Dec Lanier: 7.33 | | m/s2MV DecT: 140.20 msMV E Brock: 1.02 m/sMV E/A Ratio: 1.25MV PHT: 40.65 msMVA By | | PHT: 5.41 kt3Jayomu e': 0.03 m/sSeptal E/e': 29.00Lateral e': 0.04 m/sLateral | | E/e': 24.10RAP: 10 mmHgRVSP: 49.46 mmHgTR maxP.46 mmHgTR Vmax: 3.14 m/s | | Locomotive Driver: ZORAAuthenticated by: Kiko BUTLER Date/Time: 01-28-2018 18:52:56 [...] A Brock: 0.82 m/s | |MV Dec Lanier: 7.33 m/s2 | |MV DecT: 140.20 ms [...] |TR Vmax: 3.14 m/s | | | |Locomotive Driver: DBS | |Authenticated by: TAMARA MAHONEY MD [...]
--- OUTSIDE RECORDS SUMMARY | ~2019-07-23 | XMS | Encounter Summary ---
Demographics + + + | Address | [address] | | | [place] [address] | + + + | Home Phone | | + + + | Preferred Language | Unknown | + + + | Marital Status | | + + + | Confucianism Affiliation | 1041 | + + + | Race | Unknown | + + + | Ethnic Group | Unknown | + + + Author + + + | Author | [facility] | | | and [place] | + + + | Organization | [facility] | | [...] Providers + +------+ + | Care Chief Of Anesthesiology Name | Role | Phone | + +------+ + | Nathalie Castorena | PCP | | + +------+ + Encounter Details +--------+ + + + + | Date | Type | Department | Care Team | Description | +--------+ + + + + | 03/10/ | Orders Only | [facility] | James Pearce MD | | | 2018 | | NEPHROLOGY [place] | [address] [place] | | | | | [address] | [address] [facility] [place] | | | | | [facility] [address] | [address] | | | | | [place], [place] | | | | | | [address] | | | | | | [phone] | | | +--------+ + + + [...] 2020 | Visit | | [address] [facility] | | | | | | [address] [place], [place] | | | | | | [address] | | | | | | | | +--------+---------+ + + + documented as of this encounter Visit Diagnoses Not on filedocumented in this encounter"
--- OUTSIDE RECORDS SUMMARY | ~2019-07-23 | XMS | Encounter Summary ---
Demographics + + + | Address | [address] | | | [place] [address] | + + + | Home Phone [...] Team Providers + +------+ + | Care Speech Language Pathologist Assistant Name | Role | Phone | [...] + + | 06/22/ | Documentati | [facility] | Luis, | Results (06/17/19) | | 2019 | on | NEPHROLOGY [place] | [facility] | | | | | [address] | Teacher Vocal | | | | | [address] [facility] [address] | | | | | | [place], [place] | | | | | | [address] | | | | | | [phone] | | | +--------+ + + + [...] 2019 | Visit | | [address] [facility] | | | | | | [address] [place], [place] | | | | | | [address] | | | | | | | [...]
--- OUTSIDE RECORDS SUMMARY | ~2019-07-23 | XMS | Encounter Summary ---
Demographics + + + | Address | [address] | | | [place] [address] | + + + | Home Phone [...] Team Providers + +------+ + | Care Pound Attendant Name | Role | Phone | + +------+ + | Nathalie Castorena | PCP | | + +------+ + Encounter Details +--------+ + + + + | Date | Type | Department | Care Team | Description | +--------+ + + + + | 06/22/ | Orders Only | [facility] | James Pearce MD | Essential (primary) | | 2019 | | NEPHROLOGY [place] | [address] [place] | hypertension | | | | [address] | [address] [place], [place] | (Primary Dx); Anemia | | | | [address] | [address] | of chronic renal | | | | [place], [place] | | failure, stage 4 | | | | [address] | | (severe) ([facility]); CKD | | | | [phone] | | (chronic kidney | | | [...] | Visit | | [address] [facility] [address] | | | | | | 160 [place], [place] | | | | | | [address] | | | | | | | [...]
[~2019-07-23 14:10] MED LIST changes: +IPRAT-ALBUT 0.5-3 ML INH; +SODIUM BICARBO650 MG PO
--- OUTSIDE RECORDS SUMMARY | 2019-07-23 14:12 | XMS ---
PreManage Notification: JOSE G COX Security Change Agent Events No recent Security Events currently on file CRITERIA MET - 6 ED Visits in 6 Months - [facility] - 2 Visits in 30 Days CARE PROVIDERS ADAMARIS MOSCOSO Physician Systems Technologist: Surgical 04/21/2018-Current PHONE: Unknown BLAINE HA Nurse Practitioner 04/21/2019-Current PHONE: [phone] Name Unknown Clinic/Center 04/21/2019-Current PHONE: [phone] Neo has no Care Guidelines for this patient. Care History Medical/Surgical 04/21/2018 [facility] - PATIENT HAS [facility] PROVIDER: - PLEASE REFER PATIENT TO [facility] FOR NON EMERGENT MEDICAL NEEDS. - IF PATIENT CALLS EARLY IN THE AM TO [facility] PATIENT CAN BE SEEN SAME DAY FOR ANY NON EMERGENT MEDICAL NEEDS. - [facility] CONTACT # [phone] - PATIENT HAS A LONG EXTENSIVE HX WITH METHAMPHETAMINE USAGE. - PHYSICIAN DISCRECTION- TOX SCREEN BEFORE TREATMENT. Care Recommendation: - USE EXTREME CAUTION IN GIVING NARCOTICS TO THIS PATIENT. - Avoid Discharge Narcotic prescriptions if at all possible. Please use clinical judgement. E.D. VISIT COUNT (12 MO.) 2 [facility] 13 [facility] TOTAL 15 NOTE: Visits indicate total known visits. ED/C VISIT TRACKING (12 MO.) 07/23/2019 14:10 [facility] [place] TYPE: Emergency COMPLAINT: - SOB 06/26/2019 22:27 [facility] [place] TYPE: Emergency COMPLAINT: - SYNCOBLE 06/25/2019 20:09 [facility] [place] TYPE: Emergency COMPLAINT: - COUGH DIAGNOSES: - Heart failure, unspecified - Unspecified asthma with (acute) exacerbation - Prsnl hx of TIA (TIA), and cereb infrc w/o resid deficits - Old myocardial infarction - Personal history of nicotine dependence - Cough - Other snf (current) drug therapy - custodial (current) use of insulin - Acute bronchitis, unspecified - custodial (current) use of aspirin - Allergy status to other antibiotic agents status - 1 Type 2 diabetes mellitus without complications 06/03/2019 20:49 [facility] [place] TYPE: Emergency COMPLAINT: - SKIN PROBLEM DIAGNOSES: - Anemia, unspecified - Unspecified asthma, uncomplicated - Old myocardial infarction - Allergy status to other antibiotic agents status - Lower abdominal pain, unspecified - Heart failure, unspecified - custodial (current) use of insulin - Prsnl hx of TIA (TIA), and cereb infrc w/o resid deficits - executive receptionist (current) use of aspirin - Unspecified kidney failure - 1 Type 2 diabetes mellitus without complications - custodial (current) use of inhaled steroids - Cellulitis of abdominal wall - Other blacktop spreader (current) drug therapy - Personal history of nicotine dependence 05/23/2019 09:18 [facility] [place] TYPE: Emergency COMPLAINT: - BACK PAIN, ABD PAIN DIAGNOSES: - Heart failure, unspecified - Prsnl hx of TIA (TIA), and cereb infrc w/o resid deficits - 1 Type 2 diabetes mellitus w diabetic chronic kidney disease - executive receptionist (current) use of aspirin - Other snf (current) drug therapy - Unspecified abdominal pain - Personal history of nicotine dependence - executive receptionist (current) use of insulin - Chronic kidney [...] unspecified - Chronic kidney disease, unspecified - executive receptionist (current) use of insulin - Allergy status to other antibiotic agents status - Unspecified visual disturbance - Heart failure, unspecified - Syncope and collapse - Dizziness and giddiness - Unspecified asthma, uncomplicated - 1 Type 2 diabetes mellitus w diabetic chronic kidney disease - Old myocardial infarction - Prsnl hx of TIA (TIA), and cereb infrc w/o resid deficits 12/02/2018 00:00 [facility] TYPE: Emergency 12/02/2018 00:00 [facility] TYPE: Emergency DIAGNOSES: - Vision Distrubances 12/01/2018 16:06 [facility] [place] TYPE: Emergency COMPLAINT: - BLURRED VISION, RIGHT SIDED WEAKNESS DIAGNOSES: - executive receptionist (current) use of insulin - Prsnl hx of TIA (TIA), and cereb infrc w/o resid deficits - Unspecified visual disturbance - Other visual disturbances - Other snf (current) drug therapy - [...] and cereb infrc w/o resid deficits - executive receptionist (current) use of insulin - Puncture wound without foreign body, right foot, init encntr - Personal history of nicotine dependence - 1 Type 2 diabetes mellitus without complications - Other blacktop spreader (current) drug therapy - executive receptionist (current) use of aspirin 10/01/2018 19:00 [facility] [place] TYPE: Emergency COMPLAINT: - ABD PAIN DIAGNOSES: - Left lower quadrant pain - Heart failure, unspecified - Old myocardial infarction - custodial (current) use of insulin - Unspecified asthma, uncomplicated - executive receptionist (current) use of aspirin - 1 Type 2 diabetes mellitus without complications - Other snf (current) drug therapy - Cellulitis of abdominal wall - Allergy status to oth drug/meds/biol subst status 09/09/2018 07:55 [facility] [place] TYPE: Emergency COMPLAINT: - COUGH DIAGNOSES: - Personal history of nicotine dependence - Allergy status to oth drug/meds/biol subst status - Cough - 1 Type 2 diabetes mellitus without complications - Pneumonia, unspecified organism - Other snf (current) drug therapy - custodial (current) use of insulin - Chronic sinusitis, unspecified 08/21/2018 15:13 [facility] [place] TYPE: Emergency COMPLAINT: - DIFFICULTY BREATHING DIAGNOSES: - Old myocardial infarction - custodial (current) use of insulin - Other blacktop spreader (current) drug therapy - Heart failure, unspecified [...] asthma, uncomplicated - Chest pain, unspecified - custodial (current) use of insulin - 1 Type 2 diabetes mellitus without complications - Allergy status to oth drug/meds/biol subst status - Other snf (current) drug therapy - Viral infection, unspecified INPATIENT VISIT TRACKING (12 MO.) 06/26/2019 22:[address] [facility] [place] TYPE: Observation COMPLAINT: - HYPERGLYCEMIA,DEHYDRATION DIAGNOSES: - Other psychoactive substance abuse, in remission - Hyperlipidemia, unspecified - Chronic combined systolic and diastolic hrt fail - Old myocardial infarction - Allergy status to other antibiotic agents status - executive receptionist (current) use of insulin - Acute kidney failure, unspecified - Syncope and collapse - Alcohol dependence, in remission - Acidosis - 1 Type 2 diabetes mellitus with hyperglycemia - custodial (current) use of aspirin - 1 Chronic kidney disease, stage - Patient's other noncompliance with medication regimen - Bronchitis, not specified as acute or chronic - Personal history of nicotine dependence - 1 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
--- NOTE | 2019-07-23 17:14 | EKG ---
[facility] [address] [facility] [place] [address] Signed Normal sinus rhythm Inferior infarct , age undetermined Abnormal ECG When compared with ECG of 26-JUN-2019 22:33, fusion complexes are no longer present premature ventricular complexes are no longer present Vent. rate has decreased BY 31 BPM Inferior infarct is now present Nonspecific T wave abnormality now evident in Inferior leads Confirmed by CIERRA LAWRENCE DO ([id number]) on 07/23/2019 5:14:23 PM Electronically Signed By: CIERRA LAWRENCE DO 07/23/19 1714 PATIENT NAME: JOSE G COX Electrocardiogram DATE OF : 59 PHYSICIAN: CIERRA LAWRENCE DO REPORT #: [id number] REPORT IS CONFIDENTIAL AND NOT TO BE RELEASED WITHOUT AUTHORIZATION
== END 2019-07-23 20:59 | disposition short-term general hospital (02) ==
LOC: ED 14:10
DX: I11.0 Hypertensive heart disease with heart failure (principal); I50.9 Heart failure, unspecified; E83.42 Hypomagnesemia; E83.51 Hypocalcemia; E11.9 Type 2 diabetes mellitus without complications; J45.909 Unspecified asthma, uncomplicated; I25.2 Old myocardial infarction; Z87.891 Personal history of nicotine dependence; Z79.899 Other long term (current) drug therapy
CPT/HCPCS: 71045; 80053; 81001; 82330; 83735; 83880; 84484; 85025; 93005; 93010; 93971; 94640; 94761; 99285-25; J1940; J3475